=== PATIENT | male | born 1960 | race African-American/Black ===

== ENCOUNTER 2016-09-06 12:21 | Emergency (ER) | payer BC, OTHER ==
[~2016-09-06] VITALS: Ht 170.2 cm; Wt 102.2 kg
[~2016-09-06 12:21] MED LIST: KETO2SHA TOP; LTRSCR45 EXT; ONDA4TAB10 SL; PRT40 PO; RXC5 PO; SNK PO; TPRSR25 PO
[2016-09-06 12:25] VITALS: TEMP 36.9; Ht 170.2 cm; Wt 102.2 kg
[2016-09-06] MEDS ORDERED: SODIUM CHLORIDE 0.9% 1000ML 1,000 ML IV STA (14:23)
[2016-09-06] MEDS ORDERED: HYDROmorphone INJ 1 MG/ML SYR IV STA ×2 (14:26→16:56)
[2016-09-06] MEDS ORDERED: ONDANSETRON INJ 2 MG/ML 2 ML VIAL IV STA (14:26)
[2016-09-06 15:00] LABS: BASO % 0.1 %; BASO ABS # 0.01 K/uL (0-0.2); COMPLETE YES; EOS % 2.9 %; HEMATOCRIT 43.8 % (42-52); IG% 0.3 %; LYMPH % 19.3 %; LYMPH ABS # 1.47 K/uL (1.2-3.4); MEAN CELL VOLUME 81.1 fL (80-100); MEAN CORPUSCULAR HEMOGLOBIN 28.3 pg (25-34); MEAN CORPUSCULAR HGB CONC 34.9 g/dl (32-36); MEAN PLATELET VOLUME 8.8 fL (7.4-10.4); MONO % 14.9 %; NEUT % 62.5 %; PLATELET COUNT 270 K/uL (130-400)
[2016-09-06 15:06] LABS: URINE APPEARANCE CLOUDY (CLEAR); URINE COLOR ORANGE; URINE EPITHELIAL CELL AUTO >30 /lpf (0-5); URINE NITRITE NEG (NEG); UROBILINOGEN NEG (NEG); ZZUR CULT IF INDIC CLEAN CATCH NO
[2016-09-06 15:07] LABS: MANUAL MICROSCOPIC REQUIRED? NO; REVIEW REQ? YES
[2016-09-06 15:09] LABS: URINE BILIRUBIN NEG (NEG)
[2016-09-06 15:23] LABS: URINE PATH CASTS 0-3 GRANULAR CASTS /lpf (0)
[2016-09-06 15:24] LABS: URINE MUCUS PRESENT (NONE PRSENT)
[2016-09-06 15:25] LABS: BUN/CREATININE RATIO 10.9 (10-20); CALCIUM 9.6 mg/dl (8.5-10.1); POTASSIUM 3.9 mmol/L (3.5-5.1)
[2016-09-06 15:27] LABS: ALB/GLOB RATIO 0.8 (0.9-2)
--- NOTE | 2016-09-06 16:16 | EMERGENCY ROOM VISIT NOTE ---
History First contact with patient: 14:15 Chief Complaint: ABDOMINAL PAIN Stated Complaint: EXTREME STOMACH PAINS Nursing Triage Summary: Triage Note: Pt reports mid abd pain x 2 days. pt reports "last time i was here the pain feels the same way now they said my pancreas was inflammed and i got admitted and stayed for a week." History of Present Illness The patient is a 56 year old male who presents to the Emergency Room with complaints of mid abdominal pain for the past 2-3 days. The patient reports that he has had gradually worsening pain in the middle of his abdomen for the past few days. He reports he has had a decreased appetite and nausea, but no vomiting. The patient was seen here for similar symptoms several months ago and states that he was diagnosed with pancreatitis. The patient does admit to drinking vodka and beer a few days ago, prior to the onset of symptoms. He denies any history of abdominal surgery. He rates his discomfort a 10/10. The patient denies any changes in bowel movements, urinary symptoms, chest pain, shortness of breath, hematochezia or melena. He denies any fevers or chills. He has not been taking any medication for the pain. He denies any aggravating or alleviating factors. Review of Systems A complete 10-point Review of Systems was discussed with the patient, with pertinent positives and negatives listed in the History of Present Illness. All remaining Review of Systems questions can be considered negative unless otherwise specified. Past Medical/Surgical History Medical Problems: (1) Complete below knee amputation of right lower extremity Family History Patient reports no known family medical history. Social History Smoking Status: Current Every Day Smoker Alcohol Use: heavy Housing Status: lives with family Occupation Status: unemployed Current/Historical Medications Scheduled Betamethasone/Clotrimazole (Clotrimazole/Betameth Crm 45 Gm), 1 APPLN EXT BID Ketoconazole (Topical) (Ketoconazole), 1 APPLN TOP 2XWK Metoprolol Succinate (Metoprolol Succinate ER), 25 MG PO QAM Ondasetron Odt (Zofran Odt), 4 MG SL Q6H Oxycodone HCl (Oxycodone HCl), 5 MG PO Q4 Pantoprazole (Pantoprazole Sodium), 40 MG PO QAM Senna (Senna Lax), 17.2 MG PO HS Scheduled PRN Oxycodone Ir (Roxicodone Ir), 1-2 TAB PO Q4H PRN for Pain Allergies Coded Allergies: No Known Allergies (Unverified , 03/21/16) Physical Exam Vital Signs Date Time Temp Pulse Resp B/P Pulse Ox O2 Delivery O2 Flow Rate FiO2 09/06/16 19:05 83 18 171/114 95 09/06/16 17:00 83 18 164/121 98 09/06/16 14:45 95 18 148/96 95 Room Air 09/06/16 14:26 80 18 168/119 94 09/06/16 12:25 36.9 99 20 169/125 96 Room Air Pain Rating (0-10): 9.0 Physical Exam VITALS: Vitals are noted on the nurse's note and reviewed by myself. Vital signs stable. GENERAL: This is a 56-year-old male, in no acute distress, nondiaphoretic, well- developed well-nourished. SKIN: Capillary reflex less than 2 seconds. HEENT: Normocephalic. PERRLA. EOMI. Nares patent. Mucous membranes moist. Neck is supple without nuchal rigidity. HEART: Regular rate and rhythm without murmurs gallops or rubs. LUNGS: Clear to auscultation bilaterally without wheezes, rales or rhonchi. ABDOMEN: Positive bowel sounds x 4. The abdomen is soft and nondistended. There is tenderness to palpation of the epigastric region and right upper quadrant. No guarding or rebound tenderness. NEURO: Patient was alert and oriented to person place and time. Medical Decision & Procedures ER Provider Diagnostic Interpretation: PANCREATIC ULTRASOUND CLINICAL HISTORY: Right upper quadrant abdominal pain. History of pancreatitis. COMPARISON STUDY: March 21, 2016 FINDINGS: No gallstones are visualized. There is mild gallbladder distention. The common bile duct is dilated measuring 9 mm. There are no focal hepatic masses. There is borderline increase in hepatic echogenicity. There is no right-sided hydronephrosis. Evaluation the pancreas was somewhat limited. No pancreatic masses were identified. There are no peripancreatic fluid collections. IMPRESSION: 1. Limited evaluation of the pancreas, but no masses or peripancreatic fluid collections identified 2. Mild gallbladder distention. No stones identified 3. 9 mm common bile duct 4. Possible hepatic steatosis Laboratory Results 09/06/16 14:45 Red Blood Count 5.40, Mean Corpuscular Volume 81.1, Mean Corpuscular Hemoglobin 28.3, Mean Corpuscular Hemoglobin Concent 34.9, Mean Platelet Volume 8.8, Neutrophils (%) (Auto) 62.5, Lymphocytes (%) (Auto) 19.3, Monocytes (%) (Auto) 14.9, Eosinophils (%) (Auto) 2.9, Basophils (%) (Auto) 0.1, Neutrophils # (Auto ) 4.75, Lymphocytes # (Auto) 1.47, Monocytes # (Auto) 1.13, Eosinophils # (Auto ) 0.22, Basophils # (Auto) 0.01 09/06/16 14:45 Test 09/06/16 14:40 09/06/16 14:45 Urine Color ORANGE Urine Appearance CLOUDY (CLEAR) Urine pH 6.0 (4.5-7.5) Urine Specific [place] 1.030 (1.000-1.030) Urine Protein 2+ (NEG) Urine Glucose (UA) NEG (NEG) Urine Ketones TRACE (NEG) Urine Occult Blood TRACE (NEG) Urine Nitrite NEG (NEG) Urine Bilirubin NEG (NEG) Urine Urobilinogen NEG (NEG) Urine Leukocyte Esterase NEG (NEG) Urine WBC (Auto) 1-5 /hpf (0-5) Urine RBC (Auto) 5-10 /hpf (0-4) Urine Hyaline Casts (Auto) >30 /lpf (0-5) Urine Epithelial Cells (Auto) >30 /lpf (0-5) Urine Bacteria (Auto) NEG (NEG) Urine Renal Epithelial Cells 0-5 /lpf (0-5) Urine Pathogenic Casts 0-3 GRANULAR CASTS /lpf (0) Urine Mucus PRESENT (NONE PRSENT) White Blood Count 7.60 K/uL (4.8-10.8) Red Blood Count 5.40 M/uL (4.7-6.1) Hemoglobin 15.3 g/dL (14.0-18.0) Hematocrit 43.8 % (42-52) Mean Corpuscular Volume 81.1 fL (80-100) Mean Corpuscular Hemoglobin 28.3 pg (25-34) Mean Corpuscular Hemoglobin Concent 34.9 g/dl (32-36) Platelet Count 270 K/uL (130-400) Mean Platelet Volume 8.8 fL (7.4-10.4) Neutrophils (%) (Auto) 62.5 % Lymphocytes (%) (Auto) 19.3 % Monocytes (%) (Auto) 14.9 % Eosinophils (%) (Auto) 2.9 % Basophils (%) (Auto) 0.1 % Neutrophils # (Auto) 4.75 K/uL (1.4-6.5) Lymphocytes # (Auto) 1.47 K/uL (1.2-3.4) Monocytes # (Auto) 1.13 K/uL (0.11-0.59) Eosinophils # (Auto) 0.22 K/uL (0-0.5) Basophils # (Auto) 0.01 K/uL (0-0.2) RDW Standard Deviation 43.8 fL (36.4-46.3) RDW Coefficient of Variation 14.9 % (11.5-14.5) Immature Granulocyte % (Auto) 0.3 % Immature Granulocyte # (Auto) 0.02 K/uL (0.00-0.02) Anion Gap 12.0 mmol/L (3-11) Est Creatinine Clear Calc Drug Dose 96.2 ml/min Estimated GFR () 98.5 Estimated GFR (Non- 84.9 BUN/Creatinine Ratio 10.9 (10-20) Calcium Level 9.6 mg/dl (8.5-10.1) Total Bilirubin 1.3 mg/dl (0.2-1) Aspartate Amino Transf (AST/SGOT) 21 U/L (15-37) Alanine Aminotransferase (ALT/SGPT) 28 U/L (12-78) Alkaline Phosphatase 123 U/L (45-117) Total Protein 9.3 gm/dl (6.4-8.2) Albumin 4.2 gm/dl (3.4-5.0) Globulin 5.1 gm/dl (2.5-4.0) Albumin/Globulin Ratio 0.8 (0.9-2) Amylase Level 161 U/L (25-115) Lipase 1295 U/L (73-393) Medications Administered Medications (Trade) Dose Ordered Sig/Angela Route Start Time Stop Time Status Last Admin Dose Admin Sodium Chloride (Nss 1000ml) 1,000 ml @ 999 mls/hr Q1H1M STAT IV 09/06/16 14:23 09/06/16 15:23 DC 3/20/17 14:45 999 MLS/HR Hydromorphone HCl (Dilaudid Inj) 1 mg NOW STAT IV 09/06/16 14:26 09/06/16 14:28 DC 09/06/16 14:45 1 MG Ondansetron HCl (Zofran Inj) 4 mg NOW STAT IV 09/06/16 14:26 09/06/16 14:28 DC 09/06/16 14:45 4 MG Hydromorphone HCl (Dilaudid Inj) 1 mg NOW STAT IV 09/06/16 16:56 09/06/16 16:58 DC 09/06/16 17:03 1 MG Medical Decision Differential diagnosis includes pancreatitis, cholecystitis, gastroenteritis, colitis, among others. The patient was evaluated as above. Labs were drawn and IV access was obtained. Imaging studies were performed and read by radiology as above. The patient was medicated with 1 L normal saline solution, 1 mg Dilaudid IV and 4 mg Zofran IV. He did require an additional 1 mg Dilaudid IV for pain. The patient was reassessed multiple times during their stay in the emergency department and remained in stable condition. The patient is a 56-year-old male who presents today complaining of abdominal pain. He does report a history of pancreatitis and states his symptoms today are similar to previous episodes. Labs revealed no leukocytosis, anemia or concerning electrolyte abnormalities. Urinalysis was not suggestive of infection. Lipase was found to be elevated at 1295. On the patient's previous admission, his lipase had been significantly more elevated. There is no leukocytosis or fevers to suggest infection. Right upper quadrant ultrasound was fairly unremarkable. There was mild distention of the gallbladder as well as a dilated common bile duct. However, these findings were present on his last visit and he had extensive workup of the gallbladder with no stones found. He does admit to drinking prior to the onset of his pain and I feel that this is likely alcohol-induced pancreatitis. The patient did feel better after IV antiemetics and pain medication and felt stable for discharge home. He was given a prescription for pain and nausea medicine and instructed to follow-up with his primary care provider or return here as needed. Based on the patient's presentation, lab results, and imaging studies, I feel the patient is stable for outpatient treatment. The patient's case was reviewed with Dr. Garcia, ED attending physician, who agreed with my assessment and treatment plan. Discharge instructions were reviewed with the patient. The patient verbalized understanding of my assessment and treatment plan and was discharged home in good condition. Impression Primary Impression: Pancreatitis Departure Information Dispostion Home / Self-Care Condition GOOD Prescriptions Oxycodone Ir (Roxicodone Ir) 5 Mg Tab 1-2 TAB PO Q4H Y for Pain, #20 TAB For Initial Treatment Prov: Brittany Tolentino, WALE 09/06/16 Referrals No Doctor, Assigned (PCP) Patient Instructions My [facility] Additional Instructions You have been treated in the Emergency Department for pancreatitis. You have been prescribed OxyIR to be used for pain control. This is a narcotic medication. You cannot drive or consume alcohol while on this medicine. This medicine should only be used for pain that cannot be controlled with over-the- counter pain medicines. For pain control, you can use the following [id number] medicines (if >12 yo): - Regular strength (325mg/tab) Tylenol (acetaminophen) 2 tabs every 4-6 hours as needed. Do not exceed 12 tablets in a 24 hour period. Avoid taking more than 4 grams (4000 mg) of Tylenol per day. This includes any other sources of acetaminophen you may take on a regular basis. - Regular strength (200 mg/tab) Advil (ibuprofen) 1-2 tabs every 4-6 hours as needed. Do not exceed a dose of 3200 mg per day. Drink plenty of water and stay well hydrated. As with any trip to the Emergency Department, you should follow-up with your Primary Care Provider from today's visit. Return to the emergency department if your symptoms persist despite treatment plan outlined above or if the following symptoms occur: Worsening pain, fevers, vomiting or any other new/concerning symptoms. Problem Qualifiers Primary Impression: Pancreatitis Chronicity: acute Pancreatitis type: alcohol induced Acute pancreatitis complication: no infection or necrosis Qualified Codes: K85.20 - Alcohol induced acute pancreatitis without necrosis or infection
--- NOTE | 2016-09-06 16:47 | DIAGNOSTIC IMAGING REPORT ---
PANCREATIC ULTRASOUND CLINICAL HISTORY: Right upper quadrant abdominal pain. History of pancreatitis. COMPARISON STUDY: March 21, 2016 FINDINGS: No gallstones are visualized. There is mild gallbladder distention. The common bile duct is dilated measuring 9 mm. There are no focal hepatic masses. There is borderline increase in hepatic echogenicity. There is no right-sided hydronephrosis. Evaluation the pancreas was somewhat limited. No pancreatic masses were identified. There are no peripancreatic fluid collections. IMPRESSION: 1. Limited evaluation of the pancreas, but no masses or peripancreatic fluid collections identified 2. Mild gallbladder distention. No stones identified 3. 9 mm common bile duct 4. Possible hepatic steatosis Electronically signed by: Erick Love M.D. 09/06/2016 4:46 PM Dictated Date/Time: 09/06/2016 4:44 PM
[2016-09-06] MEDS ORDERED: OXYC1TAB3 PO ×2 (17:56→19:58)
[2016-09-06 19:05] VITALS: BP 171/114; PULSE 83; O2SAT 95
== END 2016-09-06 19:07 | disposition home or self-care (01) ==
LOC: C.EDB 12:22 → C.EDC 19:07
DX: K85.90 Acute pancreatitis without necrosis or infection, unspecified (principal); F17.200 Nicotine dependence, unspecified, uncomplicated; Z79.899 Other long term (current) drug therapy

== ENCOUNTER 2016-12-20 07:50 | Emergency (ER) | payer SELFPAY ==
[~2016-12-20] VITALS: Ht 170.2 cm; Wt 110.6 kg
[~2016-12-20 07:50] MED LIST changes: -ONDA4TAB10 SL; +OXYC1TAB3 PO
[2016-12-20 07:55] VITALS: TEMP 36.7; Ht 170.2 cm; Wt 110.6 kg
[2016-12-20 08:01] VITALS: O2SAT 95
[2016-12-20] MEDS ORDERED: MULTI-VITAMIN INFUSION INJ 10 ML, THIAMINE HCL INJ 100 MG, FoLIC ACID INJ 1 MG in SODIU... IV ONE (08:15)
--- NOTE | 2016-12-20 08:35 | DIAGNOSTIC IMAGING REPORT ---
CHEST ONE VIEW PORTABLE CLINICAL HISTORY: Atypical chest pain COMPARISON STUDY: No previous studies for comparison. FINDINGS: The heart is mildly enlarged. There is no overt failure. There is no focal pulmonary consolidation. There are no pleural effusions.[ IMPRESSION: Cardiomegaly. No acute findings. Electronically signed by: Erick Love M.D. 12/20/2016 8:33 AM Dictated Date/Time: 12/20/2016 8:33 AM
--- NOTE | 2016-12-20 08:54 | DIAGNOSTIC IMAGING REPORT ---
HEAD CT NONCONTRAST CT DOSE: 614.27 mGy.cm HISTORY: Mental status change possible seizure TECHNIQUE: Multiaxial CT images of the head were performed without the use of intravenous contrast. Comparison: None. Findings: The paranasal sinuses and mastoid air cells are clear. Several small foci of diminished density in the periventricular deep white matter regions. This is suggestive of chronic small vessel change. The ventricular system is midline. No evidence for midline shift. Basilar cisterns are unremarkable. Impression: Chronic small vessel change. No acute process. Electronically signed by: Terence Prieto M.D. 12/20/2016 8:52 AM Dictated Date/Time: 12/20/2016 8:50 AM
[2016-12-20 09:05] LABS: BUN/CREATININE RATIO 10.3 (10-20); CALCIUM 8.9 mg/dl (8.5-10.1); CREATININE 0.99 mg/dl (0.60-1.40); MAGNESIUM 2.2 mg/dl (1.8-2.4); POTASSIUM 4.1 mmol/L (3.5-5.1)
[2016-12-20 09:23] LABS: BASO % 0.4 %; BASO ABS # 0.03 K/uL (0-0.2); COMPLETE YES; EOS % 1.8 %; HEMATOCRIT 40.7 % (42-52); IG% 0.1 %; LYMPH % 40.2 %; LYMPH ABS # 3.13 K/uL (1.2-3.4); MEAN CELL VOLUME 82.2 fL (80-100); MEAN CORPUSCULAR HEMOGLOBIN 27.7 pg (25-34); MEAN CORPUSCULAR HGB CONC 33.7 g/dl (32-36); MEAN PLATELET VOLUME 9.5 fL (7.4-10.4); MONO % 8.9 %; NEUT % 48.6 %; PLATELET COUNT 281 K/uL (130-400); RED BLOOD COUNT 4.95 M/uL (4.7-6.1); WHITE BLOOD COUNT 7.79 K/uL (4.8-10.8)
[2016-12-20 09:29] LABS: BENZODIAZEPINE, URINE NEG (NEG); COCAINE,URINE POS (NEG); PHENCYCLIDINE, URINE NEG (NEG)
[2016-12-20 10:43] VITALS: BP 157/104; O2SAT 90
[2016-12-20 11:02] VITALS: PULSE 80
--- NOTE | 2016-12-20 11:34 | EMERGENCY ROOM VISIT NOTE ---
History Report prepared by Van: Elmo Forrest Under the Supervision of: Dr. Juan Mccarty M.D. First contact with patient: 07:57 Chief Complaint: SEIZURE Stated Complaint: SEIZURE History of Present Illness The patient is a 56 year old male who presents to the Emergency Room with complaints of an episode of seizure-like activity occurring just prior to arrival. He has no history of seizures. He did not feel abnormal prior to the episode. The patient states that he may have hit his head during the episode and currently has a headache. He also complains of leg swelling and recent cold- sweats. He denies any fevers, chest pain, SOB, nausea, or vomiting. The patient states that he has not slept in two days. He states that he has been drinking a lot of alcohol including emily and wine. He states that he normally drinks a lot, and typically drinks every day. The patient has no history of alcohol withdrawal, and does not believe he would go into withdrawal if he stopped drinking now. He has a history of a right leg amputation. He notes that he recently got out of residential. Source of History: patient Onset: Just prior to arrival Quality: other (seizure-like activity) Timing: other (episode) Associated Symptoms: + headache, No chest pain, No SOB, No nausea, No vomiting Note: The patient also complains of leg swelling. Review of Systems See HPI for pertinent positives & negatives. A total of 10 systems reviewed and were otherwise negative. Past Medical & Surgical Medical Problems: (1) Complete below knee amputation of right lower extremity Old medical records were reviewed. Nurse's notes were reviewed and I agree with. History of alcohol abuse No history of seizures Family History Patient reports no known family medical history. Social History Smoking Status: Never Smoker Alcohol Use: heavy Housing Status: lives with family Occupation Status: unemployed Current/Historical Medications Scheduled Betamethasone/Clotrimazole (Clotrimazole/Betameth Crm 45 Gm), 1 APPLN EXT BID Ketoconazole (Topical) (Ketoconazole), 1 APPLN TOP 2XWK Metoprolol Succinate (Metoprolol Succinate ER), 25 MG PO QAM Pantoprazole (Pantoprazole Sodium), 40 MG PO QAM Senna (Senna Lax), 17.2 MG PO HS Scheduled PRN Oxycodone Ir (Roxicodone Ir), 1-2 TAB PO Q4H PRN for Pain Allergies Coded Allergies: No Known Allergies (Unverified , 12/20/16) Physical Exam Vital Signs Date Time Temp Pulse Resp B/P (MAP) Pulse Ox O2 Delivery O2 Flow Rate FiO2 12/20/16 11:02 80 12/20/16 10:43 90 16 157/104 90 12/20/16 08:57 101 16 138/102 92 Room Air 12/20/16 08:01 95 Room Air 12/20/16 07:58 104 12/20/16 07:55 36.7 99 20 148/106 94 Room Air Physical Exam General: Mild to moderately intoxicated, middle aged male. Smells of alcohol but answers questions appropriately. Alert and oriented 3 with a Juan Luis Coma Score 15. HEENT: Normal cephalic atraumatic. Pupils are equal round and reactive to light. Extraocular movements are intact. Oropharynx is pink with moist mucous membranes. No swelling of the mouth lips or tongue. Poor dentition. No evidence of abscess or Jacobo's angina. The posterior oropharynx is wide open without swelling Neck: Supple with a midline trachea. No meningeal signs or stiffness, no JVD or bruits. No Stridor. Chest: Clear to auscultation bilaterally. No wheezes or rhonchi. No increased work of breathing. Heart: regular rate and rhythm. Abdomen: Soft nontender, nondistended without rebound guarding or rigidity. Extremities: No cyanosis clubbing or edema. RLE BKA. Spine/Back. Non tender to palpation. No CVA tenderness Skin: Good turgor without rashes. Neurologic exam: Awake, alert and oriented x3. Moves all extremities equally. Medical Decision & Procedures ER Provider Diagnostic Interpretation: Radiology results as stated below per my review and radiologist interpretation: HEAD CT NONCONTRAST Findings: The paranasal sinuses and mastoid air cells are clear. Several small foci of diminished density in the periventricular deep white matter regions. This is suggestive of chronic small vessel change. The ventricular system is midline. No evidence for midline shift. Basilar cisterns are unremarkable. Impression: Chronic small vessel change. No acute process. Electronically signed by: Terence Prieto M.D. CHEST ONE VIEW PORTABLE FINDINGS: The heart is mildly enlarged. There is no overt failure. There is no focal pulmonary consolidation. There are no pleural effusions.[ IMPRESSION: Cardiomegaly. No acute findings. Electronically signed by: Erick Love M.D. Laboratory Results 12/20/16 08:30 Red Blood Count 4.95, Mean Corpuscular Volume 82.2, Mean Corpuscular Hemoglobin 27.7, Mean Corpuscular Hemoglobin Concent 33.7, Mean Platelet Volume 9.5, Neutrophils (%) (Auto) 48.6, Lymphocytes (%) (Auto) 40.2, Monocytes (%) (Auto) 8.9, Eosinophils (%) (Auto) 1.8, Basophils (%) (Auto) 0.4, Neutrophils # (Auto) 3.79, Lymphocytes # (Auto) 3.13, Monocytes # (Auto) 0.69, Eosinophils # (Auto) 0.14, Basophils # (Auto) 0.03 12/20/16 08:30 Test 12/20/16 08:30 12/20/16 08:42 12/20/16 09:00 White Blood Count 7.79 K/uL (4.8-10.8) Red Blood Count 4.95 M/uL (4.7-6.1) Hemoglobin 13.7 g/dL (14.0-18.0) Hematocrit 40.7 % (42-52) Mean Corpuscular Volume 82.2 fL (80-100) Mean Corpuscular Hemoglobin 27.7 pg (25-34) Mean Corpuscular Hemoglobin Concent 33.7 g/dl (32-36) Platelet Count 281 K/uL (130-400) Mean Platelet Volume 9.5 fL (7.4-10.4) Neutrophils (%) (Auto) 48.6 % Lymphocytes (%) (Auto) 40.2 % Monocytes (%) (Auto) 8.9 % Eosinophils (%) (Auto) 1.8 % Basophils (%) (Auto) 0.4 % Neutrophils # (Auto) 3.79 K/uL (1.4-6.5) Lymphocytes # (Auto) 3.13 K/uL (1.2-3.4) Monocytes # (Auto) 0.69 K/uL (0.11-0.59) Eosinophils # (Auto) 0.14 K/uL (0-0.5) Basophils # (Auto) 0.03 K/uL (0-0.2) RDW Standard Deviation 41.2 fL (36.4-46.3) RDW Coefficient of Variation 13.7 % (11.5-14.5) Immature Granulocyte % (Auto) 0.1 % Immature Granulocyte # (Auto) 0.01 K/uL (0.00-0.02) Anion Gap 9.0 mmol/L (3-11) Est Creatinine Clear Calc Drug Dose 101.2 ml/min Estimated GFR () 99.7 Estimated GFR (Non- 86.0 BUN/Creatinine Ratio 10.3 (10-20) Calcium Level 8.9 mg/dl (8.5-10.1) Magnesium Level 2.2 mg/dl (1.8-2.4) Total Bilirubin 0.3 mg/dl (0.2-1) Direct Bilirubin 0.1 mg/dl (0-0.2) Aspartate Amino Transf (AST/SGOT) 31 U/L (15-37) Alanine Aminotransferase (ALT/SGPT) 46 U/L (12-78) Alkaline Phosphatase 110 U/L (45-117) Total Protein 8.6 gm/dl (6.4-8.2) Albumin 4.1 gm/dl (3.4-5.0) Lipase 108 U/L (73-393) Ethyl Alcohol mg/dL 282.0 mg/dl (0-3) Bedside Troponin I < 0.030 ng/ml (0-0.045) Urine Opiates Screen NEG (NEG) Urine Methadone, Qualitative NEG (NEG) Urine Barbiturates NEG (NEG) Urine Phencyclidine (PCP) Level NEG (NEG) Ur Amphetamine/Methamphetamine NEG (NEG) MDMA (Ecstasy) Screen NEG (NEG) Urine Benzodiazepines Screen NEG (NEG) Urine Cocaine Metabolite POS (NEG) Urine Marijuana (THC) NEG (NEG) Laboratory studies as stated above per my review. Medications Administered Medications (Trade) Dose Ordered Sig/Angela Route Start Time Stop Time Status Last Admin Dose Admin Multivitamins 10 ml/Thiamine HCl 100 mg/Folic Acid 1 mg/Sodium Chloride 1,011.2 ml @ 200 mls/ hr Q5H4M ONCE IV 12/20/16 08:15 12/20/16 12:03 DC 12/20/16 08:37 200 MLS/HR ECG Indication: other (seizure-like activity) Rate (beats per minute): 100 Rhythm: normal sinus Findings: no acute ischemic change, no ectopy Comparison ECG Date: no prior available ED Course 0759: Past medical records reviewed. The patient was evaluated in room B12B, and a complete history and physical examination were performed. 0815: Ordered Multivitamins 10 mL/Thiamine HCl 100 mg/Folic Acid 1 mg/Sodium Chloride 1011.2 ml @ 200 mls/hr IV 1002: I reassessed the patient. He is resting and feels better. 1120: Upon reevaluation, the patient is resting comfortably. I discussed the results and treatment plan with him. He verbalized agreement of the treatment plan. The patient was discharged home. Medical Decision Differentials include, but are not limited to; seizure, trauma, alcohol use/ withdrawal, arrhythmia, and electrolyte or metabolic abnormality. This patient comes in as described above. He was placed in room B12. He is brought in after having possible seizure-like activity while sleeping. He looks well now and has a normal neurologic exam. He is not postictal .he does smell of alcohol and admits to drinking he denies any trauma. Seizure precautions were applied .IV access was established. She was given a banana bag here to replete any nutrients that he may be deficient in secondary to drinking. CAT scan, EKG and multiple blood tests was obtained. CAT scan of his head is unremarkable. Chest x-ray shows no acute findings. EKG does not suggest acute coronary syndrome or arrhythmia. He has no acute electrolyte or metabolic abnormalities. He was observed in the ER and is resting comfortably and is asking to go home. He will be discharged home. I think his alcohol probably caused his seizure if he had a seizure. It is possible that this was not a seizure as well. At this point, I told him to stop drinking. He does not drive and does not have a license he tells me. He Should avoid any activity where he had a seizure he could hurt himself or others . At this point given the fact that this was most likely cause from alcohol or substances. I do not think that's anticonvulsants are needed but he should stop drinking and using any drugs. He was encouraged to return if he has recurrence of symptoms, chest pain, shortness of breath, fever chills, any new problems concerns. He was happy with the plan and discharged home in a cab. Impression Primary Impression: Seizure Additional Impression: Alcohol intoxication Scribe Attestation The scribe's documentation has been prepared under my direction and personally reviewed by me in its entirety. I confirm that the note above accurately reflects all work, treatment, procedures, and medical decision making performed by me. Departure Information Dispostion Home / Self-Care Referrals No Doctor, Assigned (PCP) Forms HOME CARE DOCUMENTATION FORM, IMPORTANT VISIT INFORMATION Patient Instructions My [facility], Seizures - [facility] Additional Instructions Rest. Minimize your alcohol use. Return if: Fever or chills, worsening symptoms, any further seizures, chest pain , any chest any problems or concerns. Do not drive or swim or do any activities where you could get hurt if you had a seizure Follow-up with your doctor this week for recheck Problem Qualifiers
[2016-12-23 07:41] LABS: COCAINE, URINE 3820 NG/ML (CUTOFF=100)
== END 2016-12-20 11:53 | disposition home or self-care (01) ==
LOC: EDBD 07:50 → C.EDB 07:51
DX: R56.9 Unspecified convulsions (principal); F10.129 Alcohol abuse with intoxication, unspecified

== ENCOUNTER 2018-06-12 15:47 | Inpatient (IN) ==
[2018-06-12] MEDS ORDERED: fentaNYL citrate 100 MCG/2 ML VIAL IV PRN (15:54)
[2018-06-12] MEDS ORDERED: ONDANSETRON INJ 2 MG/ML 2 ML VIAL IV STA (15:54)
[2018-06-12] MEDS ORDERED: SODIUM CHLORIDE 0.9% 1000ML 1,000 ML IV SCH ×2 (16:00→18:56)
--- NOTE | 2018-06-12 16:12 | XRay Report ---
XR chest 1V portable CLINICAL HISTORY: Vomiting. COMPARISON STUDY: Chest radiograph December 11, [address] December 08, 2017. FINDINGS: There is no pneumothorax or pleural effusion. There is no evidence for pulmonary edema or p neumonia. Linear right midlung opacity favors atelectasis or scarring. Note is made of mild cardiomeg trish without evidence for pulmonary edema. IMPRESSION: No acute cardiopulmonary findings. Electronically signed by: Ryne Diane M.D. 06/12/2018 4:11 PM
--- NOTE | 2018-06-12 16:13 | XRay Report ---
KUB CLINICAL HISTORY: Vomiting. COMPARISON STUDY: KUB December 13, 2017. FINDINGS: The bowel gas pattern is normal. Moderate bilateral hip osteoarthritis, greater on the left , is incidentally noted. There is no evidence for free air although sensitivity is diminished on this supine exam. IMPRESSION: No evidence for a bowel obstruction. Electronically signed by: Ryne Diane M.D. 06/12/2018 4:12 PM
--- NOTE | 2018-06-12 16:30 | Emergency Department Note ---
Entered by Sherry Rico acting as a scribe for Kevin Phillips DO History of Present Illness General Chief complaint: Nausea Stated complaint: NAUSEA, VOMITING, ETOH, Source: patient Mode of arrival: EMS Limitations: no limitations History of Present Illness Provider complaint: pancreas pain Onset (ago): day(s) 1 Location: abdomen Quality: + burning Associated symptoms: + denies other symptoms (leg swelling), + diaphoresis, + fever/chills and + nausea/vomiting Treatments prior to arrival: none The patient is a 57 year old male who presents to the Emergency Room with complaints of pain in his pancreas that began yesterday. The patient describes his pain as burning. The patient states that he has nausea, vomiting, fevers, chills, and diaphoresis. The patient denies any leg swelling. The patient denies taking any medications prior to arrival. The patient states that he was last hospitalized last year for pancreas issues. The patient states that he has an appointment with Dr. Cee on June 14 for his pancreas issues. The patient denies a history of any previous stomach surgeries. 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 GERD (gastroesophageal reflux disease) Hx of hematuria Hx of pancreatitis Obesity Surgical History Hx of right BKA (Chronic) 2013 s/p fracture of tibia/fibula with associated infection Complete below knee amputation of right lower extremity History of mandibular surgery [facility] 1978 History of tooth extraction ALL TEETH REMOVED Family History Sister Family history of diabetes mellitus Brother Pancreatic carcinoma Social History marital status: Single Current Living Situation: Family Current Living Situation Comment: LIVES WITH SISTER Other Information That Helps Us Care for You: No Feels Safe at Home: Yes Safety Concerns: Feels Safe At This Time Smoking Status: Current some day smoker Tobacco Type: cigarettes Do You Dip or Chew Tobacco: No Second Hand Exposure: Yes Tobacco Cessation Education Requested by Patient: No Hx Alcohol Use: Yes Alcohol type: beer and hard liquor Alcohol Intake Frequency : 3 or more drinks per day Alcohol Intake Frequency Comment: 12 pack of beer daily along with 1/5 of vodka Hx Substance Use: Yes substance use type: marijuana Last Used Substance: Days ( ago) Last Used Substance Other:: yesterday Beliefs That Will Affect Care: None Communication Ability: Effective Review of Systems See HPI for pertinent positives & negatives. and A total of 10 systems reviewed and were otherwise negative Physical Exam Vital Signs Vital Signs - 24 hr 06/12/18 16:51 06/12/18 19:24 06/12/18 19:45 Temperature 36.7 C Temperature Source Oral Sepsis Recent Fever Within 48 Hours No Sepsis New/Unexplained Change in Mental Status No Sepsis Action Taken by Nursing No Action Required Pulse Rate 71 Pulse Rate [Finger] 76 79 Pulse Rate [Left Finger] Pulse Rate [Right Brachial] Pulse Rhythm Regular Pulse Rhythm [Right Brachial] Pulse Strength [Right Brachial] Respiratory Rate 18 20 18 Respiratory Effort / Characteristics Respiratory Depth Normal Respiratory Pattern Blood Pressure 162/112 H Blood Pressure [Left Arm] Blood Pressure [Right Arm] 180/117 H 174/109 H Blood Pressure Mean 128 Blood Pressure Mean [Left Arm] Blood Pressure Mean [Right Arm] 138 130 Blood Pressure Position [Left Arm] Blood Pressure Position [Right Arm] Pulse Oximetry 99 99 99 Oxygen Delivery Method Room Air Room Air Room Air 06/12/18 20:18 06/12/18 22:20 06/12/18 22:57 Temperature 36.3 C L 36.5 C Temperature Source Oral Oral Sepsis Recent Fever Within 48 Hours Sepsis New/Unexplained Change in Mental Status Sepsis Action Taken by Nursing Pulse Rate Pulse Rate [Finger] 79 Pulse Rate [Left Finger] 74 Pulse Rate [Right Brachial] 64 Pulse Rhythm Pulse Rhythm [Right Brachial] Regular Pulse Strength [Right Brachial] Normal Respiratory Rate 26 H 16 Respiratory Effort / Characteristics Respiratory Depth Respiratory Pattern Blood Pressure Blood Pressure [Left Arm] 209/125 H Blood Pressure [Right Arm] 190/99 H 205/100 H 199/109 H Blood Pressure Mean Blood Pressure Mean [Left Arm] 153 Blood Pressure Mean [Right Arm] 129 135 139 Blood Pressure Position [Left Arm] Lying Blood Pressure Position [Right Arm] Sitting Lying Lying Pulse Oximetry 98 96 Oxygen Delivery Method Room Air Room Air 06/13/18 00:11 06/13/18 02:16 06/13/18 04:00 Temperature 36.6 C 36.9 C Temperature Source Oral Oral Sepsis Recent Fever Within 48 Hours Sepsis New/Unexplained Change in Mental Status Sepsis Action Taken by Nursing Pulse Rate Pulse Rate [Finger] Pulse Rate [Left Finger] 73 Pulse Rate [Right Brachial] 74 Pulse Rhythm Pulse Rhythm [Right Brachial] Regular Pulse Strength [Right Brachial] Normal Respiratory Rate 18 18 Respiratory Effort / Characteristics Non-Labored Spontaneous Respiratory Depth Normal Respiratory Pattern Regular Blood Pressure Blood Pressure [Left Arm] Blood Pressure [Right Arm] 188/110 H 187/115 H 191/114 H Blood Pressure Mean Blood Pressure Mean [Left Arm] Blood Pressure Mean [Right Arm] 136 139 139 Blood Pressure Position [Left Arm] Blood Pressure Position [Right Arm] Lying Lying Pulse Oximetry 96 96 Oxygen Delivery Method Room Air Room Air 06/13/18 04:33 06/13/18 06:50 06/13/18 12:24 Temperature 36.8 C 36.6 C Temperature Source Oral Oral Sepsis Recent Fever Within 48 Hours Sepsis New/Unexplained Change in Mental Status Sepsis Action Taken by Nursing Pulse Rate Pulse Rate [Finger] Pulse Rate [Left Finger] 78 80 Pulse Rate [Right Brachial] 73 Pulse Rhythm Pulse Rhythm [Right Brachial] Regular Pulse Strength [Right Brachial] Normal Respiratory Rate 16 18 Respiratory Effort / Characteristics Respiratory Depth Respiratory Pattern Blood Pressure Blood Pressure [Left Arm] 203/116 H 197/114 H 195/108 H Blood Pressure [Right Arm] 204/116 H Blood Pressure Mean Blood Pressure Mean [Left Arm] 145 141 137 Blood Pressure Mean [Right Arm] 145 Blood Pressure Position [Left Arm] Lying Lying Lying Blood Pressure Position [Right Arm] Lying Pulse Oximetry 94 95 Oxygen Delivery Method Room Air Room Air 06/13/18 15:07 Temperature 36.5 C Temperature Source Oral Sepsis Recent Fever Within 48 Hours Sepsis New/Unexplained Change in Mental Status Sepsis Action Taken by Nursing Pulse Rate Pulse Rate [Finger] Pulse Rate [Left Finger] 80 Pulse Rate [Right Brachial] Pulse Rhythm Pulse Rhythm [Right Brachial] Pulse Strength [Right Brachial] Respiratory Rate 16 Respiratory Effort / Characteristics Respiratory Depth Respiratory Pattern Blood Pressure Blood Pressure [Left Arm] Blood Pressure [Right Arm] 197/101 H Blood Pressure Mean Blood Pressure Mean [Left Arm] Blood Pressure Mean [Right Arm] 133 Blood Pressure Position [Left Arm] Blood Pressure Position [Right Arm] Lying Pulse Oximetry 94 Oxygen Delivery Method Room Air GENERAL: Patient is awake alert in no acute distress patient is resting comfortably and showing no signs of anxiety EYES: The conjunctivae are clear. The pupils are round and reactive. EARS, NOSE, MOUTH AND THROAT: The nose is without any evidence of any deformity. Mucous membranes are moist tongue is midline NECK: The neck is nontender and supple. RESPIRATORY: Normal respiratory effort is noted there is no evidence of wheezing rhonchi or rales CARDIOVASCULAR: Regular rate and rhythm noted there no murmurs rubs or gallops normal S1 normal S2 GASTROINTESTINAL: The abdomen is moderately distended and diffusely tender. There is no guarding or rigidity elicited. MUSCULOSKELETAL/EXTREMITIES: Right lower extremity amputation was noted. SKIN: There is no obvious evidence of any rash. NEUROLOGIC: Patient is awake alert and oriented x3. Course 1553: Past medical records reviewed. The patient was evaluated in room B5, and a complete history and physical examination were performed. 181: I checked on the patient and updated him on his elevated lipase test results and recommended that the patient be hospitalized. 181: I discussed the patient's case with Huong Presley [facility]ist who will further evaluate the patient for hospitalization. Consultations Consultation #1: Huong Packer Time: 18:18 Administered Medications Carvedilol (Coreg) 3.125 mg PO BID [facility] Stop: 07/13/18 04:14 Last Admin: 06/13/18 04:37 Dose: 3.125 mg Chlordiazepoxide HCl (Librium) 25 mg PO BID [facility] Stop: 07/12/18 20:59 Last Admin: 06/13/18 08:41 Dose: 25 mg Admin: 06/12/18 22:19 Dose: 25 mg Clonidine HCl (Catapres) 0.1 mg PO Q8H PRN PRN Reason: SBP>160 Stop: 07/13/18 11:30 Last Admin: 06/13/18 12:29 Dose: 0.1 mg Enoxaparin Sodium (Lovenox) 40 mg SQ Q24H [facility] Stop: 07/13/18 08:59 Last Admin: 06/13/18 08:56 Dose: 40 mg Folic Acid (Folvite) 1 mg PO QAM [facility] Stop: 07/13/18 08:59 Last Admin: 06/13/18 09:45 Dose: 1 mg Hydromorphone HCl (Dilaudid) 1 mg IV Q3H PRN PRN Reason: Pain Stop: 06/27/18 11:28 Last Admin: 06/13/18 15:57 Dose: 1 mg Admin: 06/13/18 12:04 Dose: 1 mg Lactated Ringer's (Lr) 1,000 mls @ 200 mls/hr IV .Q5H [facility] Stop: 07/12/18 19:44 Last Infusion: 06/13/18 14:00 Dose: 200 mls/hr Admin: 06/13/18 13:36 Dose: 200 mls/hr Infusion: 06/13/18 13:36 Dose: 150 mls/hr Admin: 06/13/18 07:32 Dose: 150 mls/hr Infusion: 06/13/18 07:32 Dose: 150 mls/hr Admin: 06/13/18 04:37 Dose: 150 mls/hr Infusion: 06/13/18 04:37 Dose: 200 mls/hr Admin: 06/13/18 01:41 Dose: 200 mls/hr Infusion: 06/13/18 01:41 Dose: 200 mls/hr Admin: 06/12/18 20:41 Dose: 200 mls/hr Ioversol (Optiray 320 125ml) 119 ml IV ONCE PRN PRN Reason: Interaction Checking Stop: 06/16/18 20:07 Last Admin: 06/12/18 20:08 Dose: 119 ml Metoclopramide HCl (Reglan) 5 mg IV TID [facility] Stop: 07/13/18 13:59 Last Admin: 06/13/18 13:43 Dose: 5 mg Ondansetron HCl (Zofran) 4 mg IV Q6H PRN PRN Reason: Nausea Stop: 07/12/18 20:22 Last Admin: 06/13/18 01:36 Dose: 4 mg Oxycodone HCl (Roxicodone Immediate Rel) 5 mg PO Q4H PRN PRN Reason: Pain Stop: 06/26/18 20:47 Last Admin: 06/13/18 07:36 Dose: 5 mg Admin: 06/13/18 00:01 Dose: 5 mg Pantoprazole Sodium (Protonix) 40 mg PO [facility] Stop: 07/13/18 08:59 Last Admin: 06/13/18 09:45 Dose: 40 mg Ranitidine HCl (Zantac) 150 mg PO [facility] Stop: 07/13/18 08:59 Last Admin: 06/13/18 09:46 Dose: 150 mg Thiamine HCl (Vitamin B-1) 100 mg PO [facility] Stop: 07/13/18 08:59 Last Admin: 06/13/18 09:45 Dose: 100 mg Discontinued Medications Bisacodyl (Dulcolax) 5 mg PO NOW ONE Stop: 06/13/18 13:14 Last Admin: 06/13/18 13:43 Dose: 5 mg Carvedilol (Coreg) 3.125 mg PO BID [facility] Stop: 07/12/18 22:29 Last Admin: 06/12/18 22:45 Dose: 3.125 mg Fentanyl Citrate (Fentanyl Citrate) 50 mcg IV Q15M PRN PRN Reason: Pain Stop: 06/26/18 15:53 Last Admin: 06/12/18 16:40 Dose: 50 mcg Gabapentin (Neurontin) 1,200 mg PO TODAY@2200 [facility] Stop: 06/12/18 22:01 Last Admin: 06/12/18 21:49 Dose: 1,200 mg Gabapentin (Neurontin) 600 mg PO Q6H [facility] Stop: 06/13/18 12:01 Last Admin: 06/13/18 12:28 Dose: 600 mg Admin: 06/13/18 05:38 Dose: 600 mg Hydrochlorothiazide (Hctz) 25 mg PO NOW STA Stop: 06/13/18 11:27 Last Admin: 06/13/18 12:26 Dose: 25 mg Sodium Chloride (Nss 1000ml) 1,000 mls @ 999 mls/hr IV .Q1H1M [facility] Stop: 06/12/18 17:00 Last Infusion: 06/12/18 20:41 Dose: 0 mls/hr Admin: 06/12/18 16:40 Dose: 999 mls/hr Sodium Chloride (Nss 1000ml) 1,000 mls @ 200 mls/hr IV .Q5H [facility] Stop: 07/12/18 18:55 Last Admin: 06/12/18 21:38 Dose: Not Given Potassium Chloride (K Lalo / Wtr) 10 meq in 100 mls @ 100 mls/hr IV Q1H [facility] Stop: 06/13/18 13:59 Last Infusion: 06/13/18 15:08 Dose: 0 mls/hr Admin: 06/13/18 13:27 Dose: 100 mls/hr Infusion: 06/13/18 13:25 Dose: 100 mls/hr Admin: 06/13/18 12:25 Dose: 100 mls/hr Lisinopril (Zestril) 10 mg PO QAM [facility] Stop: 07/13/18 04:14 Last Admin: 06/13/18 09:48 Dose: 10 mg Admin: 06/13/18 04:36 Dose: 10 mg Lorazepam (Ativan) 1 mg PO ONE PRN; Protocol PRN Reason: EtoH Withdrawal AWSS 6-10 Last Admin: 06/12/18 22:45 Dose: 1 mg Morphine Sulfate (Morphine Sulfate) 4 mg IV Q4H PRN PRN Reason: Pain Stop: 06/26/18 19:10 Last Admin: 06/12/18 19:29 Dose: 4 mg Morphine Sulfate (Morphine Sulfate) 4 mg IV Q3H PRN PRN Reason: Pain Stop: 06/26/18 19:10 Last Admin: 06/13/18 08:36 Dose: 4 mg Admin: 06/13/18 05:34 Dose: 4 mg Admin: 06/13/18 01:37 Dose: 4 mg Morphine Sulfate (Morphine Sulfate) 4 mg IV NOW STA Stop: 06/12/18 20:50 Last Admin: 06/12/18 21:30 Dose: 4 mg Ondansetron HCl (Zofran) 4 mg IV NOW STA Stop: 06/12/18 15:55 Last Admin: 06/12/18 16:40 Dose: 4 mg Medical Decision Making Differential Diagnosis Differential diagnosis: Etiologies such as appendicitis, diverticulitis, PUD, biliary pathology, UTI, pancreatitis, obstruction, mesenteric ischemia, aortic pathology, infections, inflammatory bowel disease, renal colic, as well as others were entertained. Medical Records Attestation: I reviewed the patient's medical records. Home Medications Current Medication List: was personally reviewed by me Laboratory Data Attestation: I reviewed the patient's lab results. Result diagrams: 06/13/18 05:54 06/13/18 05:54 Lab Results 06/12/18 06/12/18 06/12/18 Range/Units 16:18 16:18 16:40 WBC 4.77 L (4.8-10.8) K/uL RBC 4.92 (4.7-6.1) M/uL Hgb 14.3 (14.0-18.0) g/dL Hct 41.6 L (42-52) % MCV 84.6 (80-100) fL MCH 29.1 (25-34) pg MCHC 34.4 (32-36) g/dL RDW Std Deviation 46.1 (36.4-46.3) fL RDW Coeff of Miguel 15.0 H (11.5-14.5) % Plt Count 217 (130-400) K/uL MPV 8.7 (7.4-10.4) fL Immature Gran % (Auto) 0.0 % Neut % (Auto) 65.5 % Lymph % (Auto) 20.3 % [place] % (Auto) 13.4 % Eos % (Auto) 0.4 % Baso % (Auto) 0.4 % Immature Gran # (Auto) 0.00 (0.00-0.02) K/uL Neut # (Auto) 3.12 (1.4-6.5) K/uL Lymph # (Auto) 0.97 L (1.2-3.4) K/uL [place] # (Auto) 0.64 H (0.11-0.59) K/uL Eos # (Auto) 0.02 (0-0.5) K/uL Baso # (Auto) 0.02 (0-0.2) K/uL PT (9.0-12.0) Seconds INR (0.9-1.1) Sodium 135 L (136-145) mmol/L Potassium 3.7 (3.5-5.1) mmol/L Chloride 99 (98-107) mmol/L Carbon Dioxide 23 (21-32) mmol/L Anion Gap 13.0 H (3-11) BUN 14 (7-18) mg/dl Creatinine 0.94 (0.6-1.4) mg/dl Est Cr Clr Drug Dosing Not Reportable Est GFR ( Amer) 105.4 Est GFR (Non-Af Amer) 90.9 BUN/Creatinine Ratio 14.6 (10-20) Glucose 122 H (70-99) mg/dl Calcium 9.0 (8.5-10.1) mg/dl Magnesium (1.8-2.4) mg/dl Total Bilirubin 0.8 (0.1-1) mg/dl AST 68 H (15-37) U/L ALT 73 (12-78) U/L Alkaline Phosphatase 125 H (45-117) U/L Total Protein 8.4 H (6.4-8.2) gm/dl Albumin 3.9 (3.4-5.0) gm/dl Globulin 4.5 H (2.5-4.0) gm/dl Albumin/Globulin Ratio 0.9 (0.9-2) Triglycerides (0-150) mg/dl Cholesterol (0-200) mg/dl LDL Cholesterol, Calc mg/dl VLDL Cholesterol, Calc mg/dl HDL Cholesterol mg/dl Cholesterol/HDL Ratio Lipase 1235 H (73-393) U/L Folate (>5.38) ng/ml Urine Color Yellow Urine Appearance Clear (Clear) Urine pH 7.0 (4.5-7.5) Ur Specific [place] 1.025 (1.000-1.030) Urine Protein Trace H (Negative) Urine Glucose (UA) Negative (Negative) Urine Ketones Trace H (Negative) Urine Blood Negative (Negative) Urine Nitrite Negative (Negative) Urine Bilirubin Negative (Negative) Urine Urobilinogen Negative (Negative) Ur Leukocyte Esterase Negative (Negative) Urine WBC (Auto) 1-5 (0-5) /hpf Urine RBC (Auto) 0-4 (0-4) /hpf U Hyaline Cast (Auto) 0 (0-5) /lpf U Epithel Cells (Auto) 5-10 H (0-5) /lpf Urine Bacteria (Auto) Negative (Negative) Hepatitis C Ab Screen (Neg) 06/12/18 06/13/18 06/13/18 Range/Units 23:29 05:54 05:54 WBC 7.64 (4.8-10.8) K/uL RBC 4.88 (4.7-6.1) M/uL Hgb 14.1 (14.0-18.0) g/dL Hct 42.1 (42-52) % MCV 86.3 (80-100) fL MCH 28.9 (25-34) pg MCHC 33.5 (32-36) g/dL RDW Std Deviation 47.6 H (36.4-46.3) fL RDW Coeff of Miguel 15.0 H (11.5-14.5) % Plt Count 219 (130-400) K/uL MPV 8.8 (7.4-10.4) fL Immature Gran % (Auto) 0.1 % Neut % (Auto) 71.5 % Lymph % (Auto) 12.4 % [place] % (Auto) 15.2 % Eos % (Auto) 0.7 % Baso % (Auto) 0.1 % Immature Gran # (Auto) 0.01 (0.00-0.02) K/uL Neut # (Auto) 5.46 (1.4-6.5) K/uL Lymph # (Auto) 0.95 L (1.2-3.4) K/uL [place] # (Auto) 1.16 H (0.11-0.59) K/uL Eos # (Auto) 0.05 (0-0.5) K/uL Baso # (Auto) 0.01 (0-0.2) K/uL PT (9.0-12.0) Seconds INR (0.9-1.1) Sodium 135 L (136-145) mmol/L Potassium 3.2 L (3.5-5.1) mmol/L Chloride 101 (98-107) mmol/L Carbon Dioxide 25 (21-32) mmol/L Anion Gap 9.0 (3-11) BUN 9 D (7-18) mg/dl Creatinine 0.83 (0.6-1.4) mg/dl Est Cr Clr Drug Dosing 109.4 Est GFR ( Amer) 114.8 Est GFR (Non-Af Amer) 99.1 BUN/Creatinine Ratio 11.4 (10-20) Glucose 121 H (70-99) mg/dl Calcium 8.5 (8.5-10.1) mg/dl Magnesium 2.2 (1.8-2.4) mg/dl Total Bilirubin 1.3 H D (0.1-1) mg/dl AST 32 (15-37) U/L ALT 53 (12-78) U/L Alkaline Phosphatase 117 (45-117) U/L Total Protein 7.3 (6.4-8.2) gm/dl Albumin 3.1 L (3.4-5.0) gm/dl Globulin 4.2 H (2.5-4.0) gm/dl Albumin/Globulin Ratio 0.7 L (0.9-2) Triglycerides 160 H (0-150) mg/dl Cholesterol 144 (0-200) mg/dl LDL Cholesterol, Calc 22 mg/dl VLDL Cholesterol, Calc 32 mg/dl HDL Cholesterol 90 mg/dl Cholesterol/HDL Ratio 2 Lipase 2250 H (73-393) U/L Folate 16.53 (>5.38) ng/ml Urine Color Urine Appearance (Clear) Urine pH (4.5-7.5) Ur Specific [place] (1.000-1.030) Urine Protein (Negative) Urine Glucose (UA) (Negative) Urine Ketones (Negative) Urine Blood (Negative) Urine Nitrite (Negative) Urine Bilirubin (Negative) Urine Urobilinogen (Negative) Ur Leukocyte Esterase (Negative) Urine WBC (Auto) (0-5) /hpf Urine RBC (Auto) (0-4) /hpf U Hyaline Cast (Auto) (0-5) /lpf U Epithel Cells (Auto) (0-5) /lpf Urine Bacteria (Auto) (Negative) Hepatitis C Ab Screen (Neg) 06/13/18 06/13/18 Range/Units 05:54 05:54 WBC (4.8-10.8) K/uL RBC (4.7-6.1) M/uL Hgb (14.0-18.0) g/dL Hct (42-52) % MCV (80-100) fL MCH (25-34) pg MCHC (32-36) g/dL RDW Std Deviation (36.4-46.3) fL RDW Coeff of Miguel (11.5-14.5) % Plt Count (130-400) K/uL MPV (7.4-10.4) fL Immature Gran % (Auto) % Neut % (Auto) % Lymph % (Auto) % [place] % (Auto) % Eos % (Auto) % Baso % (Auto) % Immature Gran # (Auto) (0.00-0.02) K/uL Neut # (Auto) (1.4-6.5) K/uL Lymph # (Auto) (1.2-3.4) K/uL [place] # (Auto) (0.11-0.59) K/uL Eos # (Auto) (0-0.5) K/uL Baso # (Auto) (0-0.2) K/uL PT 11.1 (9.0-12.0) Seconds INR 1.1 (0.9-1.1) Sodium (136-145) mmol/L Potassium (3.5-5.1) mmol/L Chloride (98-107) mmol/L Carbon Dioxide (21-32) mmol/L Anion Gap (3-11) BUN (7-18) mg/dl Creatinine (0.6-1.4) mg/dl Est Cr Clr Drug Dosing Est GFR ( Amer) Est GFR (Non-Af Amer) BUN/Creatinine Ratio (10-20) Glucose (70-99) mg/dl Calcium (8.5-10.1) mg/dl Magnesium (1.8-2.4) mg/dl Total Bilirubin (0.1-1) mg/dl AST (15-37) U/L ALT (12-78) U/L Alkaline Phosphatase (45-117) U/L Total Protein (6.4-8.2) gm/dl Albumin (3.4-5.0) gm/dl Globulin (2.5-4.0) gm/dl Albumin/Globulin Ratio (0.9-2) Triglycerides (0-150) mg/dl Cholesterol (0-200) mg/dl LDL Cholesterol, Calc mg/dl VLDL Cholesterol, Calc mg/dl HDL Cholesterol mg/dl Cholesterol/HDL Ratio Lipase (73-393) U/L Folate (>5.38) ng/ml Urine Color Urine Appearance (Clear) Urine pH (4.5-7.5) Ur Specific [place] (1.000-1.030) Urine Protein (Negative) Urine Glucose (UA) (Negative) Urine Ketones (Negative) Urine Blood (Negative) Urine Nitrite (Negative) Urine Bilirubin (Negative) Urine Urobilinogen (Negative) Ur Leukocyte Esterase (Negative) Urine WBC (Auto) (0-5) /hpf Urine RBC (Auto) (0-4) /hpf U Hyaline Cast (Auto) (0-5) /lpf U Epithel Cells (Auto) (0-5) /lpf Urine Bacteria (Auto) (Negative) Hepatitis C Ab Screen Neg (Neg) Imaging Data Radiologist's Impression: Radiology results as stated below per my review and the radiologist's interpretation: XR chest 1V portable CLINICAL HISTORY: Vomiting. COMPARISON STUDY: Chest radiograph December 11, [address] December 08, 2017. FINDINGS: There is no pneumothorax or pleural effusion. There is no evidence for pulmonary edema or pneumonia. Linear right midlung opacity favors atelectasis or scarring. Note is made of mild cardiomegaly without evidence for pulmonary edema. IMPRESSION: No acute cardiopulmonary findings. Electronically signed by: Ryne Diane M.D. 06/12/2018 4:11 PM KUB CLINICAL HISTORY: Vomiting. COMPARISON STUDY: [facility]UB December 13, 2017. FINDINGS: The bowel gas pattern is normal. Moderate bilateral hip osteoarthritis , greater on the left, is incidentally noted. There is no evidence for free air although sensitivity is diminished on this supine exam. IMPRESSION: No evidence for a bowel obstruction. Electronically signed by: Ryne Diane M.D. 06/12/2018 4:[address] OF THE ABDOMEN AND PELVIS WITH CONTRAST CLINICAL HISTORY: Abdominal pain. COMPARISON STUDY: CT of the abdomen and pelvis and right upper quadrant ultrasound December 09, 2017. TECHNIQUE: Following IV administration of 94 mL of Optiray-320, axial images of the abdomen and pelvis were obtained from the lung bases to the proximal femurs. Images were reviewed in the axial, sagittal, and coronal planes. IV contrast was administered without complication. Automated exposure control was utilized for the study. A dose lowering technique was utilized adhering to the principles of ALARA. CT DOSE: 511.01 mGy.cm FINDINGS: Lung bases are clear. There is probable fatty infiltration of the liver. No hepatic lesions are identified. There is no biliary or pancreatic ductal dilatation. There is moderate peripancreatic infiltration and fluid. The main, left and right portal veins are patent. The splenic vein is somewhat diminutive but patent. The spleen, adrenal glands and kidneys are normal. There is no hydronephrosis. No well-defined peripancreatic fluid collection is present. No pseudoaneurysm is identified on this non-CTA exam. There is no evidence for pancreatic necrosis. No well-defined mass is identified. The caliber and wall thickness of small and large bowel are normal. The appendix is normal. There are no suspicious osseous lesions. IMPRESSION: 1. Moderate peripancreatic infiltration and fluid consistent with acute pancreatitis. No well-defined peripancreatic fluid collection. No evidence for pancreatic necrosis. No mass identified by CT however a follow-up CT or MRI in 1 -2 months to ensure resolution is recommended. 2. Fatty infiltration of the liver. 3. No bowel obstruction. Normal appendix. Electronically signed by: Ryne Diane M.D. 06/12/2018 8:30 PM Blood Pressure Blood Pressure Findings: Elevated blood pressure Blood Pressure Disposition: further management by hospitalist [facility] Narrative The patient is a 57-year-old male who is a history of chronic pancreatitis who presented to the emergency department for an evaluation of upper abdominal pain and nausea vomiting. The patient did not have an exam consistent with an acute surgical abdomen however his lipase appear to be elevated compared to his baseline. He was treated with IV fluids and IV pain medication. He was also given IV antiemetics. He continues to have significant symptoms. For this reason I discussed his case with the on-call [facility] hospitalist group. They have agreed to evaluate the patient in the emergency department for further management and disposition. Impression & Plan Abdominal pain, Acute pancreatitis, Nausea & vomiting Discharge Plan Visit Data *Final* Discharge Date/Time: 06/12/18 19:47 Chief Complaint: Nausea Stated Complaint: NAUSEA, VOMITING, ETOH, ED Provider: Kevin [facility] Discharge Problem: Abdominal pain, Acute pancreatitis, Nausea & vomiting Patient Disposition: Admitted As Inpatient Discharge Instructions Interventions: ED Discharge Assessment Last Done: 06/12/18 19:47 The scribe's documentation has been prepared under my direction and personally reviewed by me in its entirety. I confirm that the note above accurately reflects all work, treatment, procedures, and medical decision making performed by me.
[2018-06-12 16:32] LABS: Basophils # (auto) 0.02 K/uL (0-0.2); Basophils % (auto) 0.4 %; Eosinophils # (auto) 0.02 K/uL (0-0.5); Eosinophils % (auto) 0.4 %; Hematocrit (blood only) 41.6 % (42-52); Hemoglobin 14.3 g/dL (14.0-18.0); Lymphocytes # (auto) 0.97 K/uL (1.2-3.4); Lymphocytes % (auto) 20.3 %; Mean Corpuscular Hgb Conc 34.4 g/dL (32-36); Mean Corpuscular Volume 84.6 fL (80-100); Mean Platelet Volume 8.7 fL (7.4-10.4); Monocytes # (auto) 0.64 K/uL (0.11-0.59); Monocytes % (auto) 13.4 %; Neutrophils # (auto) 3.12 K/uL (1.4-6.5); Neutrophils % (auto) 65.5 %; Platelet Count 217 K/uL (130-400); RDW Standard Deviation 46.1 fL (36.4-46.3); Red Blood Count 4.92 M/uL (4.7-6.1); White Blood Count 4.77 K/uL (4.8-10.8)
[2018-06-12 16:50] LABS: Alanine Aminotransferase 73 U/L (12-78); Albumin Level 3.9 gm/dl (3.4-5.0); Aspartate Aminotransferase 68 U/L (15-37); BUN Creatinine Ratio 14.6 (10-20); Blood Urea Nitrogen 14 mg/dl (7-18); Carbon Dioxide 23 mmol/L (21-32); Chloride 99 mmol/L (98-107); Est GFR (African American) 105.4; Est GFR (Non-African American) 90.9; Glucose 122 mg/dl (70-99); Potassium 3.7 mmol/L (3.5-5.1); Sodium 135 mmol/L (136-145)
[2018-06-12 16:53] LABS: Albumin Globulin Ratio 0.9 (0.9-2); Alkaline Phosphatase 125 U/L (45-117); Bilirubin,Total 0.8 mg/dl (0.1-1); Globulin 4.5 gm/dl (2.5-4.0); Total Protein 8.4 gm/dl (6.4-8.2)
[2018-06-12 17:01] LABS: Appearance Urine Clear (Clear); Bacteria Urine Automated Negative (Negative); Bilirubin Urine Negative (Negative); Cast Urine Automated 0 /lpf (0-5); Color Urine Yellow; Glucose Urine UA Negative (Negative); Ketones Urine Trace (Negative); Leukocyte Esterase Urine Negative (Negative); Nitrite Urine Negative (Negative); Protein Urine Trace (Negative); Specific Gravity Urine 1.025 (1.000-1.030); Urobilinogen Urine Negative (Negative)
--- NOTE | 2018-06-12 19:07 | History & Physical Report ---
Date of Service June 12, 2018 Assessment & Plan (1) Abdominal pain: This is a 57-year-old -Uz[place] male with significant past medical history of HTN, HLD, alcohol abuse, tobacco abuse, history of recurrent pancreatitis, depression, history of traumatic right BKA who presents to [facility] secondary to abdominal pain times 1 day. Patient with history of recurrent alcoholic pancreatitis with current daily EtOH abuse. In ED patient's lipase was 1235, AST 68, alk phos 125, ALT 73, WBC 4.7, hemoglobin 14.3, hematocrit 41.6, platelet 251, BUN 14, creatinine 0.94. KUB was negative for bowel obstruction, chest x-ray negative for any acute abnormality. In ED he received IV fentanyl, IV Zofran as well as 1 L of IVF with minimal relief of symptoms. Patient is being admitted secondary to abdominal pain, elevated transaminitis, elevated lipase most likely in setting of acute pancreatitis. DDX but not limited to : Alcoholic pancreatitis, gall stone pancreatitis, PUD, necrotizing pancreatitis, cholecystitis, colitis -Admit to med/surg -NPO, bowel rest -IV LR at 200cc/hr -consult GI -repeat CBC, CMP, Lipase in a.m. -IV morphine 4mg IV Q4h -CT Abd/Pelvis w/ IV contrast -place on ETOH withdrawl protocol, most recent admission 12/05 developed DT with resp distress [facility] (2) Pancreatitis, alcoholic, acute: -plan as above (3) ETOH abuse: -Patient with prior admission in November 2017 in which patient developed alcohol withdrawal, DT, acute respiratory distress requiring intubation with mechanical ventilation -AWSS scale, gabapentin taper, and will place on Librium 25 mg twice daily to help prevent DT -Encourage alcohol cessation -We will place on folic acid and thiamine replacement (4) HTN (hypertension): -Blood pressure currently elevated in setting of acute pain -Obtain adequate pain control -Continue lisinopril and Coreg (5) HLD (hyperlipidemia): -Previously on atorvastatin 20 mg daily, this was discontinued in lieu of recurrent pancreatitis -Check lipid panel in a.m. (6) Phantom pain after amputation of lower extremity: -Home regimen of gabapentin 300 mg 3 times daily -Place gabapentin on hold, placed on gabapentin taper per AWSS protocol -Once gabapentin taper complete, resume home dose (7) Depression: -Previously had been on Prozac in the past, states he has not been taking this for some time (8) Tobacco abuse: -Encourage smoking cessation -Patient refusing nicotine patch (9) DVT prophylaxis: -lovenox 40mg SQ Q24hr Disposition: D/C to home when medically able with strict ETOH Cessation Follow up: PCP Dr. Oseguera upon discharge Patient was seen in collaboration with Dr. Short, please see addendum History of Present Illness Chief Complaint: Abdominal pain x 1 day. Primary Care Provider: Liyah Oseguera MD This is a 57-year-old -Uz[place] male with significant past medical history of HTN, HLD, alcohol abuse, tobacco abuse, history of recurrent pancreatitis, depression, history of traumatic right BKA who presents to [facility] secondary to abdominal pain times 1 day. Pain is located in epigastrium and periumbilical region, radiates to left upper quadrant , constant, rated as 20/10, food/liquid makes symptoms worse, nothing improves symptoms, has history of pancreatitis in past. States "I am never drinking again." Saturday 06/09 patient drank half a gallon of eggnog, fifth of vodka and 12 beers. He drinks daily approximately 12 beers a day and occasional fits of vodka. Further he has tobacco abuse at half a pack a day for approximately 40 years. Abdominal pain is associated with nausea, yellow/gomez emesis. Overall poor appetite and inability to tolerate oral intake times 2 days. Denies fever , chills, sweats, lightheadedness, dizziness, chest pain, palpitations, shortness of breath, VILLEDA, hematemesis, melena, hematochezia, hemoptysis, diarrhea, dysuria, increased urgency or frequency with urination, hematuria. He ambulates with a cane and recently got a new right BKA prosthetic. Allergies Allergy/AdvReac Type Severity Reaction Status Date / Time No Known Allergies Allergy Verified 07/03/18 21:39 Home Medications Home Medications Medication Instructions Recorded Confirmed Type gabapentin [Neurontin] 300 mg PO TID 02/21/18 07/03/18 History omeprazole 40 mg PO QAM 02/21/18 07/03/18 History ranitidine HCl 150 mg PO QAM 02/21/18 07/03/18 History carvedilol 3.125 mg PO DAILY 30 Days #60 tab 06/15/18 07/03/18 Rx clonidine HCl 0.1 mg PO Q12 30 Days #60 tab 06/15/18 07/03/18 Rx folic acid 1 mg PO QAM 30 Days #30 tab 06/15/18 07/03/18 Rx thiamine HCl (vitamin B1) [Vitamin 100 mg PO QAM 30 Days #30 tab 06/15/18 Rx B-1] albuterol sulfate [Proventil HFA] 2 puff INHALATION Q4H PRN 07/03/18 07/03/18 History atorvastatin 20 mg PO DAILY 07/03/18 07/03/18 History fluoxetine 10 mg PO DAILY 07/03/18 07/03/18 History lisinopril 20 mg PO DAILY 07/03/18 07/03/18 History polyethylene glycol 3350 [Laxative 17 g PO DAILY PRN 07/03/18 07/03/18 History PEG 3350] sennosides-docusate sodium [Senna 2 tab PO DAILY 07/03/18 07/03/18 History with Docusate Sodium] Past Med/Surg History Medical History Depression (Chronic) 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 GERD (gastroesophageal reflux disease) Hx of hematuria Hx of pancreatitis Obesity Family History Sister Family history of diabetes mellitus Brother Pancreatic carcinoma Social History marital status: Single Current Living Situation: Family Current Living Situation Comment: sister and brother Other Information That Helps Us Care for You: No Feels Safe at Home: Yes Safety Concerns: Feels Safe At This Time Smoking Status: Current some day smoker Tobacco Type: cigarettes Cigarettes per Day: 10-12 Do You Dip or Chew Tobacco: No Tobacco Cessation Education Requested by Patient: No Hx Alcohol Use: Yes Alcohol type: beer and hard liquor Alcohol Intake Frequency : 0-2 drinks per day Alcohol Intake Frequency Comment: 12 pack of beer daily along with 1/5 of vodka Hx Substance Use: Yes substance use type: marijuana and crack/cocaine Last Used Substance: Days (ago) Beliefs That Will Affect Care: None Preferred Language: Scottish Communication Ability: Effective Tumbling Instructor Required: No Review of Systems All systems reviewed & are unremarkable except as noted in HPI & below Physical Exam 2 Vital Signs (Past 24 Hours): Last Vital Signs Temp 36.7 C 06/12/18 16:51 Pulse 71 06/12/18 16:51 Resp 18 06/12/18 16:51 BP 162/112 H 06/12/18 16:51 Pulse Ox 99 06/12/18 16:51 Physical Exam: Gen: WD/WN, M, in acute pain, lying in bed, poor hygiene, pleasant, conversing easily Head: Normocephalic, Atraumatic Eyes: Sclera normal, no conjunctival injection, PERRLA, EOMI ENT: Gross hearing intact, normal pharynx, mucous membranes moist, poor dentition Neck: supple, no adenopathy, No JVD, no bruit, Resp: Clear to auscultation b/l, no wheeze, rales, rhonchi. 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 Extremities: No edema bilaterally, R BKA with compression dressing in place Skin: warm, moist, no rash, negative turgor, cap refill < 2sec Neuro: Alert and oriented x 3, speech normal, good mood/affect, cran nerve 2-12 intact grossly : deferred Results & Data Laboratory Results Short CBC 06/12/18 06/12/18 Range/Units 16:18 16:18 WBC 4.77 L (4.8-10.8) K/uL Hgb 14.3 (14.0-18.0) g/dL Hct 41.6 L (42-52) % Plt Count 217 (130-400) K/uL AST 68 H (15-37) U/L Alkaline Phosphatase 125 H (45-117) U/L Lipase 1235 H (73-393) U/L BMP 06/12/18 16:18 Sodium 135 L Potassium 3.7 Chloride 99 Carbon Dioxide 23 BUN 14 Creatinine 0.94 Glucose 122 H Calcium 9.0 Liver Function 06/12/18 Range/Units 16:18 Total Bilirubin 0.8 (0.1-1) mg/dl AST 68 H (15-37) U/L ALT 73 (12-78) U/L Alkaline Phosphatase 125 H (45-117) U/L Albumin 3.9 (3.4-5.0) gm/dl Urine 06/12/18 Range/Units 16:40 Urine Color Yellow Urine Appearance Clear (Clear) Urine pH 7.0 (4.5-7.5) Ur Specific [employer] 1.025 (1.000-1.030) Urine Protein Trace H (Negative) Urine Glucose (UA) Negative (Negative) Diagnostic Findings CXR: FINDINGS: There is no pneumothorax or pleural effusion. There is no evidence for pulmonary edema or pneumonia. Linear right midlung opacity favors atelectasis or scarring. Note is made of mild cardiomegaly without evidence for pulmonary edema. IMPRESSION: No acute cardiopulmonary findings. KUB Xray: IMPRESSION: No evidence for a bowel obstruction. Code Status & VTE Plan Code Status Full Code, discussed with patient VTE Prophylaxis Plan VTE Prophylaxis will be ordered: Yes Supervising Physician Co-Signing Physician Notes Patient was seen and examined. Agreed with Radha FARRIS. I participated in the history, physical, review of systems, and physical exam. I reviewed the medications with the patient. I reviewed patient 's Labs, EKG and imaging. I formulated and discussed the assessment and plan with Radha FARRIS. I took the time to discuss and explain to the patient the lab, the imaging finding and the plan. I answered all the questions. MD Deja
[2018-06-12] MEDS ORDERED: MoRPHine SULFATE 4 MG/ML 1 ML CARP\\VIAL IV PRN (19:11)
[2018-06-12] MEDS ORDERED: OPTIRAY 320 125ml IV PRN (20:08)
[2018-06-12] MEDS ORDERED: MAGNESIUM HYDROXIDE SUSP 30 ML UDC PO PRN (20:23)
[2018-06-12] MEDS ORDERED: LORazepam 1 MG TAB PO PRN (20:23)
[2018-06-12] MEDS ORDERED: POLYETHYLENE (MIRALAX) 17 GM PACK PO PRN (20:23)
[2018-06-12] MEDS ORDERED: GABAPENTIN 1200MG ALCOHOL WITHDRAWAL LOAD PO STA (20:23)
[2018-06-12] MEDS ORDERED: ACETAMINOPHEN 325 MG TAB PO PRN (20:23)
[2018-06-12] MEDS ORDERED: ALUMINUM/MAGNESIUM SUSP 30 ML UDC PO PRN (20:23)
--- NOTE | 2018-06-12 20:32 | CT Scan Report ---
CT OF THE ABDOMEN AND PELVIS WITH CONTRAST CLINICAL HISTORY: Abdominal pain. COMPARISON STUDY: CT of the abdomen and pelvis and right upper quadrant ultrasound December 09, 2017. TECHNIQUE: Following IV administration of 94 mL of Optiray-320, axial images of the abdomen and pelvi s were obtained from the lung bases to the proximal femurs. Images were reviewed in the axial, sagitt al, and coronal planes. IV contrast was administered without complication. Automated exposure contro l was utilized for the study. A dose lowering technique was utilized adhering to the principles of A GEO. CT DOSE: 511.01 mGy.cm FINDINGS: Lung bases are clear. There is probable fatty infiltration of the liver. No hepatic lesions are identified. There is no biliary or pancreatic ductal dilatation. There is moderate peripancreati c infiltration and fluid. The main, left and right portal veins are patent. The splenic vein is somew hat diminutive but patent. The spleen, adrenal glands and kidneys are normal. There is no hydronephro sis. No well-defined peripancreatic fluid collection is present. No pseudoaneurysm is identified on t his non-CTA exam. There is no evidence for pancreatic necrosis. No well-defined mass is identified. T he caliber and wall thickness of small and large bowel are normal. The appendix is normal. There are no suspicious osseous lesions. IMPRESSION: 1. Moderate peripancreatic infiltration and fluid consistent with acute pancreatitis. No well-defined peripancreatic fluid collection. No evidence for pancreatic necrosis. No mass identified by CT howev er a follow-up CT or MRI in 1-2 months to ensure resolution is recommended. 2. Fatty infiltration of the liver. 3. No bowel obstruction. Normal appendix. Electronically signed by: Ryne Diane M.D. 06/12/2018 8:30 PM
[2018-06-12] MEDS: LACTATED RINGER'S 1,000 ML IV SCH (20:41)
[2018-06-12] MEDS ORDERED: MoRPHine SULFATE 4 MG/ML 1 ML CARP\\VIAL IV STA (20:49)
[2018-06-12] MEDS ORDERED: GABAPENTIN 600 MG TAB PO SCH (22:00)
[2018-06-12] MEDS: chlordiazePOXIDE HCl 25 MG CAP PO SCH (22:19)
[2018-06-12] MEDS ORDERED: CARVEDILOL 3.125 MG TAB PO SCH (22:30)
[2018-06-12] MEDS ORDERED: LORazepam 2 MG/4 ML VIAL IV PRN (23:19)
[2018-06-12] MEDS ORDERED: LORazepam 1 MG/2 ML VIAL IV PRN (23:19)
[2018-06-12] MEDS ORDERED: LORazepam 3 MG/6 ML VIAL IV PRN (23:19)
[2018-06-12] MEDS ORDERED: ATIVAN IV ALCOHOL WITHDRAWL IV SCH (23:30)
[2018-06-13] MEDS: OXYCODONE HCL IR 5 MG TAB (IMMEDIATE RELEASE) PO PRN ×3 (00:01→18:20)
[2018-06-13] MEDS: ONDANSETRON INJ 2 MG/ML 2 ML VIAL IV PRN ×2 (01:36→23:36)
[2018-06-13] MEDS: MoRPHine SULFATE 4 MG/ML 1 ML CARP\\VIAL IV PRN ×3 (01:37→08:36)
[2018-06-13] MEDS: LACTATED RINGER'S 1,000 ML IV SCH ×6 (01:41→23:30)
[2018-06-13] MEDS: LISINOPRIL 5 MG TAB PO SCH ×2 (04:36→09:48)
[2018-06-13] MEDS: CARVEDILOL 3.125 MG TAB PO SCH ×2 (04:37→20:29)
[2018-06-13] MEDS: GABAPENTIN 600 MG TAB PO SCH ×3 (05:38→20:28)
[2018-06-13 06:34] LABS: Basophils # (auto) 0.01 K/uL (0-0.2); Basophils % (auto) 0.1 %; Eosinophils # (auto) 0.05 K/uL (0-0.5); Eosinophils % (auto) 0.7 %; Hematocrit (blood only) 42.1 % (42-52); Hemoglobin 14.1 g/dL (14.0-18.0); Immature Granulocytes # (auto) 0.01 K/uL (0.00-0.02); Immature Granulocytes % (auto) 0.1 %; Lymphocytes # (auto) 0.95 K/uL (1.2-3.4); Lymphocytes % (auto) 12.4 %; Mean Corpuscular Hgb Conc 33.5 g/dL (32-36); Mean Corpuscular Volume 86.3 fL (80-100); Mean Platelet Volume 8.8 fL (7.4-10.4); Monocytes # (auto) 1.16 K/uL (0.11-0.59); Monocytes % (auto) 15.2 %; Neutrophils # (auto) 5.46 K/uL (1.4-6.5); Neutrophils % (auto) 71.5 %; Platelet Count 219 K/uL (130-400); RDW Standard Deviation 47.6 fL (36.4-46.3); Red Blood Count 4.88 M/uL (4.7-6.1); White Blood Count 7.64 K/uL (4.8-10.8)
[2018-06-13 06:40] LABS: INR 1.1 (0.9-1.1); Prothrombin Time 11.1 Seconds (9.0-12.0)
[2018-06-13 07:01] LABS: Albumin Level 3.1 gm/dl (3.4-5.0); BUN Creatinine Ratio 11.4 (10-20); Calcium 8.5 mg/dl (8.5-10.1); Creatinine Clr Calc Pharmacy 109.4 ml/min; Est GFR (African American) 114.8; Est GFR (Non-African American) 99.1; Magnesium 2.2 mg/dl (1.8-2.4); Potassium 3.2 mmol/L (3.5-5.1)
[2018-06-13 07:05] LABS: Albumin Globulin Ratio 0.7 (0.9-2); Bilirubin,Total 1.3 mg/dl (0.1-1); Globulin 4.2 gm/dl (2.5-4.0); Total Protein 7.3 gm/dl (6.4-8.2)
[2018-06-13] MEDS: chlordiazePOXIDE HCl 25 MG CAP PO SCH ×2 (08:41→20:28)
[2018-06-13] MEDS: ENOXAPARIN INJ 40 MG/0.4 ML SYR SQ SCH (08:56)
[2018-06-13] MEDS ORDERED: LISINOPRIL 5 MG TAB PO SCH (09:00)
[2018-06-13] MEDS ORDERED: CARVEDILOL 3.125 MG TAB PO SCH (09:00)
[2018-06-13] MEDS: FOLIC ACID 1 MG TAB PO SCH (09:45)
[2018-06-13] MEDS: PANTOprazole 40 MG TAB PO SCH (09:45)
[2018-06-13] MEDS: THIAMINE HCL 100 MG TAB PO SCH (09:45)
[2018-06-13] MEDS ORDERED: hydroCHLOROthiazide 25 MG TAB PO STA (11:26)
[2018-06-13] MEDS: HYDROmorphone INJ 1 MG/ML SYRINGE IV PRN ×4 (12:04→23:29)
[2018-06-13] MEDS: POTASSIUM CHLORIDE / WTR 10 MEQ/100 ML PLCT IV SCH ×2 (12:25→13:27)
[2018-06-13] MEDS: cloNIDine HCl 0.1 MG TAB PO PRN ×2 (12:29→20:38)
--- NOTE | 2018-06-13 12:59 | Gastrointestinal Consultation ---
Date of Consultation June 13, 2018 History of Present Illness Attending Physician: Bel Vu MD Reason for consult: pancreatitis HPI: 57 yo M with h/o alcoholism/chronic tobacco/MJ, h/o pancreatitis in past, now admit with 2 day h/o mid upper abdominal pain, nausea and intractable vomiting. Pt states that pain is similar to pancreatitis pain in the past, and occurred after drinking binge. On admission, lipase > 1200, AST 68 with nl AST, AP 15, Hgb 14, BUN 14. CT with IV contrast showed no lorraine dil, peripanc infiltration without necrosis, and diminutive splenic vein. He received approx 4 liters of fluid since admission, with hgb persistently 14 and fall in BUN to 9. He continues to complain of abd pain despite high doses of narcotics, reports marked hunger, minimal flatus and no BM. PE: He is sleeping and appears comfortable upon my entry. HEENT: Oral and scleral Mucosa slightly dry and pink CV: RRR Resp: CTA Abd: mildly distended and tympanic, mildly tender in epigastrium on moderate palpation without rebound or guarding, decrease BS Extrem: mild clubbing, skin is dry Labs reviewed A/P: Acute alcoholic pancreatitis - Cont IV hydration. He appears mildly dry to me, and describes dark urine -- will increase fluid rate to 200/hr for today, with plans to decrease tomorrow. - He reports hunger, but has abd distention and minimal flatus. I suspect that he has a mild ileus. Will attempt clears, with Reglan + dulcolax. Consider addition of Relistor given high doses of narcotics. - Analgesia per primary service. He has risk factors for drug seeking, which may make accurate assessment of pain difficult. - Abd uls to r/o stones as outpt. - There is no need to follow lipase daily, as this has no management or prognostic implications. Allergies Allergy/AdvReac Type Severity Reaction Status Date / Time No Known Allergies Allergy Verified 06/12/18 16:17 Home Medications Home Medications Medication Instructions Recorded Confirmed Type gabapentin [Neurontin] 300 mg PO TID 02/21/18 06/12/18 History lisinopril 5 mg PO QAM 02/21/18 06/12/18 History omeprazole 40 mg PO QAM 02/21/18 06/12/18 History ranitidine HCl 150 mg PO QAM 02/21/18 06/12/18 History carvedilol 3.125 mg PO DAILY 06/12/18 06/12/18 History Patient History Medical History Depression (Chronic) 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 GERD (gastroesophageal reflux disease) Hx of hematuria Hx of pancreatitis Obesity Surgical History Hx of right BKA (Chronic) 2013 s/p fracture of tibia/fibula with associated infection Complete below knee amputation of right lower extremity History of mandibular surgery BROKEN JAW 1978 History of tooth extraction ALL TEETH REMOVED Family History Sister Family history of diabetes mellitus Brother Pancreatic carcinoma Social History marital status: Single Current Living Situation: Family Current Living Situation Comment: LIVES WITH SISTER Other Information That Helps Us Care for You: No Feels Safe at Home: Yes Safety Concerns: Feels Safe At This Time Smoking Status: Current some day smoker Tobacco Type: cigarettes Do You Dip or Chew Tobacco: No Second Hand Exposure: Yes Tobacco Cessation Education Requested by Patient: No Hx Alcohol Use: Yes Alcohol type: beer and hard liquor Alcohol Intake Frequency : 3 or more drinks per day Alcohol Intake Frequency Comment: 12 pack of beer daily along with 1/5 of vodka Hx Substance Use: Yes substance use type: marijuana Last Used Substance: Days ( ago) Last Used Substance Other:: yesterday Beliefs That Will Affect Care: None Communication Ability: Effective Physical Exam 2 Vital Signs (Past 24 Hours): Last Vital Signs Temp 36.6 C 06/13/18 12:24 Pulse 80 06/13/18 12:24 Resp 18 06/13/18 12:24 BP 195/108 H 06/13/18 12:24 Pulse Ox 95 06/13/18 12:24
[2018-06-13] MEDS ORDERED: BISACODYL 5 MG TABEC PO ONE (13:13)
[2018-06-13] MEDS: METOCLOPRAMIDE HCL INJ 5 MG/ML 2 ML VIAL IV SCH ×2 (13:43→20:29)
--- NOTE | 2018-06-13 17:25 | Hospitalist Progress Note ---
Date of Service June 13, 2018 Assessment & Plan (1) Abdominal pain: This is a 57-year-old -Swedish male with significant past medical history of HTN, HLD, alcohol abuse, tobacco abuse, history of recurrent pancreatitis, depression, history of traumatic right BKA who presents to [facility] secondary to abdominal pain times 1 day. Patient with history of recurrent alcoholic pancreatitis with current daily EtOH abuse. In ED patient's lipase was 1235, AST 68, alk phos 125, ALT 73, WBC 4.7, hemoglobin 14.3, hematocrit 41.6, platelet 251, BUN 14, creatinine 0.94. KUB was negative for bowel obstruction, chest x-ray negative for any acute abnormality. In ED he received IV fentanyl, IV Zofran as well as 1 L of IVF with minimal relief of symptoms. Patient is being admitted secondary to abdominal pain, elevated transaminitis, elevated lipase most likely in setting of acute pancreatitis. DDX but not limited to : Alcoholic pancreatitis, gall stone pancreatitis, PUD, necrotizing pancreatitis, cholecystitis, colitis -NPO, bowel rest -IV LR at 200cc/hr -consult GI-appreciate input Recommends continue bowel rest, acute treatment for pancreatitis, No GI procedure planned this admission -place on ETOH withdrawl protocol, most recent admission 12/05 developed DT with resp distress requiring intubation/mech ventilation (2) Pancreatitis, alcoholic, acute: -Third admission with acute pancreatitis after alcohol drinking/abuse Patient is counseled multiple times Continue bowel rest, IV fluids, pain control (3) ETOH abuse: No sign of symptoms of active withdrawal -Patient with prior admission in November 2017 in which patient developed alcohol withdrawal, DT, acute respiratory distress requiring intubation with mechanical ventilation -AWSS scale, gabapentin taper, and will place on Librium 25 mg twice daily to help prevent DT -Encourage alcohol cessation -We will place on folic acid and thiamine replacement (4) HTN (hypertension): -Blood pressure currently elevated -Added as needed clonidine -Continue lisinopril and Coreg (5) HLD (hyperlipidemia): -Previously on atorvastatin 20 mg daily, this was discontinued in lieu of recurrent pancreatitis -Check lipid panel in a.m. (6) Phantom pain after amputation of lower extremity: -Home regimen of gabapentin 300 mg 3 times daily -Place gabapentin on hold, placed on gabapentin taper per AWSS protocol -Once gabapentin taper complete, resume home dose (7) Depression: -Previously had been on Prozac in the past, states he has not been taking this for some time (8) Tobacco abuse: -Encourage smoking cessation -Patient refusing nicotine patch (9) DVT prophylaxis: -lovenox 40mg SQ Q24hr Disposition: D/C to home when medically able with strict ETOH Cessation Follow up: PCP Dr. Oseguera upon discharge Subjective Complains of abdominal pain, Requesting Dilaudid IV frequently Blood pressure remains persistently elevated, patient denies of any headache or shortness of breath or chest heaviness Patient is scheduled for outpatient EGD, had to cancel multiple times secondary to transportation She is requesting if EEG could be done inpatient GI already on board, evaluated the patient earlier, recommends outpatient EGD Patient is updated, possible outpatient EGD preferably by GI team Patient is patient remains n.p.o. for acute pancreatitis, continue IV fluids, suspicious heart bouts of acute pancreatitis secondary to alcohol abuse Patient was Counseled repeatedly,pt plans quitting alcohol after being discharged from hospital Physical Exam 2 Vital Signs (Past 24 Hours): Last Vital Signs Temp 36.5 C 06/13/18 15:07 Pulse 80 06/13/18 15:07 Resp 16 06/13/18 15:07 BP 174/92 H 06/13/18 16:42 Pulse Ox 94 06/13/18 15:07 Constitutional: WD/WN, vitals as above no acute distress Eyes: + anicteric sclerae ENMT: external ear and nose normal, oropharynx normal Neck: trachea midline, no thyromegaly Respiratory: normal respiratory effort, lungs clear to auscultation Cardiovascular: RRR, no murmur, no edema Gastrointestinal (Abdomen): Inspection/Auscultation: abdomen normal to inspection Percussion/Palpation: + abdomen tender and abdomen soft; no guarding Musculoskeletal: no cyanosis or clubbing, extremities motor strength 5/5 Skin: no rashes, warm and dry Neurologic: PERRL, EOMI, accommodation nl, no face palsy, no dysarthria Psychiatric: A+Ox3, euthymic affect
[2018-06-14] MEDS: HYDROmorphone INJ 1 MG/ML SYRINGE IV PRN ×4 (03:26→12:54)
[2018-06-14] MEDS: LACTATED RINGER'S 1,000 ML IV SCH ×4 (04:44→20:41)
[2018-06-14 05:44] LABS: Estimated Average Glucose 131 mg/dl
[2018-06-14] MEDS: GABAPENTIN 600 MG TAB PO SCH ×2 (06:48→13:37)
[2018-06-14] MEDS: PANTOprazole 40 MG TAB PO SCH (07:31)
[2018-06-14] MEDS: FOLIC ACID 1 MG TAB PO SCH (07:31)
[2018-06-14] MEDS: METOCLOPRAMIDE HCL INJ 5 MG/ML 2 ML VIAL IV SCH ×3 (07:32→20:41)
[2018-06-14] MEDS: THIAMINE HCL 100 MG TAB PO SCH (07:32)
[2018-06-14] MEDS: CARVEDILOL 3.125 MG TAB PO SCH ×2 (07:32→20:42)
[2018-06-14] MEDS: ENOXAPARIN INJ 40 MG/0.4 ML SYR SQ SCH (07:33)
[2018-06-14 07:36] LABS: Albumin Level 2.7 gm/dl (3.4-5.0); BUN Creatinine Ratio 5.3 (10-20); Bilirubin Direct 0.3 mg/dl (0-0.2); Calcium 8.8 mg/dl (8.5-10.1); Creatinine Clr Calc Pharmacy 92.7 ml/min; Est GFR (African American) 100.2; Est GFR (Non-African American) 86.4; Potassium 3.6 mmol/L (3.5-5.1)
[2018-06-14 07:39] LABS: Albumin Globulin Ratio 0.7 (0.9-2); Bilirubin,Total 0.9 mg/dl (0.1-1); Total Protein 6.7 gm/dl (6.4-8.2)
[2018-06-14] MEDS: chlordiazePOXIDE HCl 25 MG CAP PO SCH (07:48)
[2018-06-14] MEDS ORDERED: LISINOPRIL/HCTZ 20/25MG 1 TAB PO SCH (09:00)
[2018-06-14] MEDS ORDERED: BISACODYL 10 MG SUPP PR ONE (10:44)
[2018-06-14] MEDS ORDERED: METHYLNALTREXONE BROMIDE 12 MG/0.6 ML VIAL SQ ONE (10:45)
--- NOTE | 2018-06-14 11:51 | XRay Report ---
XR KUB CLINICAL HISTORY: abdominal distension, ? ileus COMPARISON STUDY: 05/23/2018 FINDINGS: There is mild gaseous distention of the bowel. The transverse colon measures 7.3 cm in diam eter, uncorrected for magnification.. The findings are statistically secondary to an ileus. IMPRESSION: Gaseous prominence of the bowel, likely secondary to an ileus. Transverse colon measures 7.3 cm in diameter. Electronically signed by: Erick Love M.D. 06/14/2018 11:50 AM
--- NOTE | 2018-06-14 12:58 | Gastroenterology Progress Note ---
Date of Service June 14, 2018 Assessment & Plan (1) Pancreatitis, alcoholic, acute: Pt is a 57 y/o male with acute pancreatitis, likely ETOH induced. Reports abd less painful and no more n/v today. He does have abd distension, passing little flatus, and having hypoactive bowel sounds. Last BM 4 days ago. Suspect having an ileus - Obtain KUB today; repeat in AM - Continue Reglan, will add Dulcolax 10mg OH x 1 dose, Relistor 12mg subQ x1 ( will repeat in 2 days if no BM). - Remain on clears. Decrease LR IVF rate to 150ml/hr, may reduce more to maintenance rate if continues to tolerate PO intake well. - He should have an EUS evaluation as outpt in 4-6 weeks. He had been either showing up late or no showed his previous appts. Relies on medical van for transportation. I spoke w him today and he said will attempt to make it to an afternoon appt if we can reschedule. We will ask our schedulers to contact him to make appt. - Symptomatic management otherwise. Attg add: I interviewed and exmained pt, reviewed chart and labs. Pt without abd pain today, without n/v, gloria clears and asking for more solid food. On exam , his abd is non tender ,but distended. A/P: EtoH panc - clinically improved. Wean fluids, adv diet once ileus resolved. Ileus - s/p relistor, will give dulcolax suppository, cont Reglan, ecnourage ambulation, replace lytes, attempt to wean narcs. If persistent, repeat dulcolax suppository and give Emycin 250 mg IV q 8 hour x 2 days. Will sign off, please call with questions. Subjective Pt having less abd pain, tolerating CL diet well w/o n/v. He is c/o mainly of having abd distension, passing little flatus, and last BM was 4 days ago Physical Exam 2 Vital Signs (Past 24 Hours): Last Vital Signs Temp 37.0 C 06/14/18 12:09 Pulse 114 H 06/14/18 12:09 Resp 18 06/14/18 12:09 BP 141/80 H 06/14/18 12:09 Pulse Ox 95 06/14/18 12:09 Constitutional: + obese, well groomed, cooperative and comfortable Eyes: PERRL, conjunctivae normal, anicteric sclerae ENMT: external ear and nose normal, oropharynx normal Respiratory: normal respiratory effort, lungs clear to auscultation Cardiovascular: RRR, no murmur, no edema Gastrointestinal (Abdomen): Inspection/Auscultation: + abdomen distended and + hypoactive bowel sounds Percussion/Palpation: + abdomen tender (RUQ area ) Skin: no rashes, warm and dry no jaundice Neurologic: Motor/Sensory: no asterixis Psychiatric: A+Ox3, euthymic affect Lymphatic: no lymphedema Results & Data Laboratory Results Laboratory Results - last 48 hr 06/12/18 06/12/18 06/12/18 16:18 16:18 16:40 WBC 4.77 L RBC 4.92 Hgb 14.3 Hct 41.6 L MCV 84.6 MCH 29.1 MCHC 34.4 RDW Std Deviation 46.1 RDW Coeff of Miguel 15.0 H Plt Count 217 MPV 8.7 Immature Gran % (Auto) 0.0 Neut % (Auto) 65.5 Lymph % (Auto) 20.3 Treasure % (Auto) 13.4 Eos % (Auto) 0.4 Baso % (Auto) 0.4 Immature Gran # (Auto) 0.00 Neut # (Auto) 3.12 Lymph # (Auto) 0.97 L Treasure # (Auto) 0.64 H Eos # (Auto) 0.02 Baso # (Auto) 0.02 PT INR Sodium 135 L Potassium 3.7 Chloride 99 Carbon Dioxide 23 Anion Gap 13.0 H BUN 14 Creatinine 0.94 Est Cr Clr Drug Dosing Not Reportable Est GFR ( Amer) 105.4 Est GFR (Non-Af Amer) 90.9 BUN/Creatinine Ratio 14.6 Glucose 122 H Estimat Average Glucose Hemoglobin A1c Calcium 9.0 Magnesium Total Bilirubin 0.8 Direct Bilirubin AST 68 H ALT 73 Alkaline Phosphatase 125 H Total Protein 8.4 H Albumin 3.9 Globulin 4.5 H Albumin/Globulin Ratio 0.9 Triglycerides Cholesterol LDL Cholesterol, Calc VLDL Cholesterol, Calc HDL Cholesterol Cholesterol/HDL Ratio Lipase 1235 H Folate Urine Color Yellow Urine Appearance Clear Urine pH 7.0 Ur Specific [place] 1.025 Urine Protein Trace H Urine Glucose (UA) Negative Urine Ketones Trace H Urine Blood Negative Urine Nitrite Negative Urine Bilirubin Negative Urine Urobilinogen Negative Ur Leukocyte Esterase Negative Urine WBC (Auto) 1-5 Urine RBC (Auto) 0-4 U Hyaline Cast (Auto) 0 U Epithel Cells (Auto) 5-10 H Urine Bacteria (Auto) Negative Hepatitis C Ab Screen 06/12/18 06/13/18 06/13/18 23:29 05:54 05:54 WBC 7.64 RBC 4.88 Hgb 14.1 Hct 42.1 MCV 86.3 MCH 28.9 MCHC 33.5 RDW Std Deviation 47.6 H RDW Coeff of Miguel 15.0 H Plt Count 219 MPV 8.8 Immature Gran % (Auto) 0.1 Neut % (Auto) 71.5 Lymph % (Auto) 12.4 Treasure % (Auto) 15.2 Eos % (Auto) 0.7 Baso % (Auto) 0.1 Immature Gran # (Auto) 0.01 Neut # (Auto) 5.46 Lymph # (Auto) 0.95 L Treasure # (Auto) 1.16 H Eos # (Auto) 0.05 Baso # (Auto) 0.01 PT INR Sodium 135 L Potassium 3.2 L Chloride 101 Carbon Dioxide 25 Anion Gap 9.0 BUN 9 D Creatinine 0.83 Est Cr Clr Drug Dosing 109.4 Est GFR ( Amer) 114.8 Est GFR (Non-Af Amer) 99.1 BUN/Creatinine Ratio 11.4 Glucose 121 H Estimat Average Glucose Hemoglobin A1c Calcium 8.5 Magnesium 2.2 Total Bilirubin 1.3 H D Direct Bilirubin AST 32 ALT 53 Alkaline Phosphatase 117 Total Protein 7.3 Albumin 3.1 L Globulin 4.2 H Albumin/Globulin Ratio 0.7 L Triglycerides 160 H Cholesterol 144 LDL Cholesterol, Calc 22 VLDL Cholesterol, Calc 32 HDL Cholesterol 90 Cholesterol/HDL Ratio 2 Lipase 2250 H Folate 16.53 Urine Color Urine Appearance Urine pH Ur Specific [place] Urine Protein Urine Glucose (UA) Urine Ketones Urine Blood Urine Nitrite Urine Bilirubin Urine Urobilinogen Ur Leukocyte Esterase Urine WBC (Auto) Urine RBC (Auto) U Hyaline Cast (Auto) U Epithel Cells (Auto) Urine Bacteria (Auto) Hepatitis C Ab Screen 06/13/18 06/13/18 06/13/18 05:54 05:54 05:54 WBC RBC Hgb Hct MCV MCH MCHC RDW Std Deviation RDW Coeff of Miguel Plt Count MPV Immature Gran % (Auto) Neut % (Auto) Lymph % (Auto) Treasure % (Auto) Eos % (Auto) Baso % (Auto) Immature Gran # (Auto) Neut # (Auto) Lymph # (Auto) Treasure # (Auto) Eos # (Auto) Baso # (Auto) PT 11.1 INR 1.1 Sodium Potassium Chloride Carbon Dioxide Anion Gap BUN Creatinine Est Cr Clr Drug Dosing Est GFR ( Amer) Est GFR (Non-Af Amer) BUN/Creatinine Ratio Glucose Estimat Average Glucose 131 Hemoglobin A1c 6.2 H Calcium Magnesium Total Bilirubin Direct Bilirubin AST ALT Alkaline Phosphatase Total Protein Albumin Globulin Albumin/Globulin Ratio Triglycerides Cholesterol LDL Cholesterol, Calc VLDL Cholesterol, Calc HDL Cholesterol Cholesterol/HDL Ratio Lipase Folate Urine Color Urine Appearance Urine pH Ur Specific [place] Urine Protein Urine Glucose (UA) Urine Ketones Urine Blood Urine Nitrite Urine Bilirubin Urine Urobilinogen Ur Leukocyte Esterase Urine WBC (Auto) Urine RBC (Auto) U Hyaline Cast (Auto) U Epithel Cells (Auto) Urine Bacteria (Auto) Hepatitis C Ab Screen Neg 06/14/18 06:13 WBC RBC Hgb Hct MCV MCH MCHC RDW Std Deviation RDW Coeff of Miguel Plt Count MPV Immature Gran % (Auto) Neut % (Auto) Lymph % (Auto) Treasure % (Auto) Eos % (Auto) Baso % (Auto) Immature Gran # (Auto) Neut # (Auto) Lymph # (Auto) Treasure # (Auto) Eos # (Auto) Baso # (Auto) PT INR Sodium 132 L Potassium 3.6 Chloride 93 L Carbon Dioxide 31 Anion Gap 8.0 BUN 5 L Creatinine 0.98 Est Cr Clr Drug Dosing 92.7 Est GFR ( Amer) 100.2 Est GFR (Non-Af Amer) 86.4 BUN/Creatinine Ratio 5.3 L Glucose 138 H Estimat Average Glucose Hemoglobin A1c Calcium 8.8 Magnesium Total Bilirubin 0.9 Direct Bilirubin 0.3 H AST 18 ALT 33 Alkaline Phosphatase 102 Total Protein 6.7 Albumin 2.7 L Globulin 4.0 Albumin/Globulin Ratio 0.7 L Triglycerides Cholesterol LDL Cholesterol, Calc VLDL Cholesterol, Calc HDL Cholesterol Cholesterol/HDL Ratio Lipase 763 H Folate Urine Color Urine Appearance Urine pH Ur Specific [place] Urine Protein Urine Glucose (UA) Urine Ketones Urine Blood Urine Nitrite Urine Bilirubin Urine Urobilinogen Ur Leukocyte Esterase Urine WBC (Auto) Urine RBC (Auto) U Hyaline Cast (Auto) U Epithel Cells (Auto) Urine Bacteria (Auto) Hepatitis C Ab Screen
[2018-06-14] MEDS ORDERED: HYDROmorphone INJ 1 MG/ML SYRINGE IV PRN (15:20)
--- NOTE | 2018-06-14 15:29 | Hospitalist Progress Note ---
Date of Service June 14, 2018 Assessment & Plan (1) Adynamic ileus: Developed abdominal distention, Complains of bloating sensation, denies of any pain, no nausea vomiting Not had any bowel movement, unable to pass gas GI evaluation appreciated, ordered for bowel regimen Added Relistor, IV Dilaudid discontinued Order for n.p.o. Increase activity as tolerated Repeat KUB in a.m. if symptom remains unchanged (2) Abdominal pain: This is a 57-year-old -[place] male with significant past medical history of HTN, HLD, alcohol abuse, tobacco abuse, history of recurrent pancreatitis, depression, history of traumatic right BKA who presents to [facility] secondary to abdominal pain times 1 day. Patient with history of recurrent alcoholic pancreatitis with current daily EtOH abuse. In ED patient's lipase was 1235, AST 68, alk phos 125, ALT 73, WBC 4.7, hemoglobin 14.3, hematocrit 41.6, platelet 251, BUN 14, creatinine 0.94. KUB was negative for bowel obstruction, chest x-ray negative for any acute abnormality. In ED he received IV fentanyl, IV Zofran as well as 1 L of IVF with minimal relief of symptoms. Patient is being admitted secondary to abdominal pain, elevated transaminitis, elevated lipase most likely in setting of acute pancreatitis. DDX but not limited to : Alcoholic pancreatitis, gall stone pancreatitis, PUD, necrotizing pancreatitis, cholecystitis, colitis -NPO, bowel rest -IV LR at 200cc/hr -consult GI-appreciate input Recommends continue bowel rest, acute treatment for pancreatitis, No GI procedure planned this admission -place on ETOH withdrawl protocol, most recent admission 12/05 developed DT with resp distress requiring intubation/[facility] [place] ventilation (3) Pancreatitis, alcoholic, acute: -Third admission with acute pancreatitis after alcohol drinking/abuse Patient is counseled multiple times Continue bowel rest, IV fluids, pain control (4) ETOH abuse: No sign of symptoms of active withdrawal -Patient with prior admission in November 2017 in which patient developed alcohol withdrawal, DT, acute respiratory distress requiring intubation with mechanical ventilation -AWSS scale, gabapentin taper, and will place on Librium 25 mg twice daily to help prevent DT -Encourage alcohol cessation -We will place on folic acid and thiamine replacement (5) HTN (hypertension): -Blood pressure improved after addition of as needed clonidine Continue lisinopril and Coreg (6) HLD (hyperlipidemia): -Previously on atorvastatin 20 mg daily, this was discontinued in lieu of recurrent pancreatitis (7) Phantom pain after amputation of lower extremity: -Home regimen of gabapentin 300 mg 3 times daily -Place gabapentin on hold, placed on gabapentin taper per AWSS protocol -Once gabapentin taper complete, resume home dose (8) Depression: -Previously had been on Prozac in the past, states he has not been taking this for some time (9) Tobacco abuse: -Encourage smoking cessation -Patient refusing nicotine patch (10) DVT prophylaxis: -lovenox 40mg SQ Q24hr Disposition: D/C to home when medically able with strict ETOH Cessation Follow up: PCP Dr. Oseguera upon discharge Subjective Abdominal distention, unable to pass any gas No nausea vomiting X-ray of KUB shows development of ileus Appreciate input from GI Recommends to limit narcotics, IV Dilaudid discontinued ordered for as needed Toradol The Relistor Patient is ordered to be n.p.o., encouraged to increase up to 50 as tolerated Physical Exam 2 Vital Signs (Past 24 Hours): Last Vital Signs Temp 37.0 C 06/14/18 14:54 Pulse 110 H 06/14/18 14:54 Resp 20 06/14/18 14:54 BP 148/93 H 06/14/18 14:54 Pulse Ox 96 06/14/18 14:54 Constitutional: WD/WN, vitals as above no acute distress Eyes: + anicteric sclerae ENMT: external ear and nose normal, oropharynx normal Neck: trachea midline, no thyromegaly Respiratory: normal respiratory effort, lungs clear to auscultation Cardiovascular: RRR, no murmur, no edema Gastrointestinal (Abdomen): Inspection/Auscultation: + abdomen distended Percussion/Palpation: + abdomen tender and abdomen soft; no guarding Musculoskeletal: no cyanosis or clubbing, extremities motor strength 5/5 Skin: no rashes, warm and dry Neurologic: PERRL, EOMI, accommodation nl, no face palsy, no dysarthria Psychiatric: A+Ox3, euthymic affect _ (1) Abdominal pain Abdominal location: unspecified location Qualified Code(s): R10.9 - Unspecified abdominal pain (2) Pancreatitis, alcoholic, acute Acute pancreatitis complication: no infection or necrosis Qualified Code(s): K85.20 - Alcohol induced acute pancreatitis without necrosis or infection (3) HTN (hypertension) Hypertension type: unspecified Qualified Code(s): I10 - Essential (primary) hypertension (4) HLD (hyperlipidemia) Hyperlipidemia type: unspecified Qualified Code(s): E78.5 - Hyperlipidemia, unspecified (5) Depression Depression Type: unspecified Qualified Code(s): F32.9 - Major depressive disorder, single episode, unspecified
[2018-06-14] MEDS: KETOROLAC TROMETHAMINE 15 MG/ML VIAL IV PRN ×2 (16:41→23:26)
[2018-06-14] MEDS: POLYETHYLENE (MIRALAX) 17 GM PACK PO SCH (16:48)
[2018-06-14 23:06] VITALS: O2SAT 95
[2018-06-15] MEDS: GABAPENTIN 600 MG TAB PO SCH ×2 (00:45→11:34)
[2018-06-15] MEDS: LACTATED RINGER'S 1,000 ML IV SCH ×3 (01:38→11:33)
[2018-06-15] MEDS: KETOROLAC TROMETHAMINE 15 MG/ML VIAL IV PRN ×2 (05:17→11:32)
[2018-06-15 07:01] VITALS: TEMP 99
[2018-06-15 08:19] LABS: Albumin Globulin Ratio 0.6 (0.9-2); Albumin Level 2.3 gm/dl (3.4-5.0); BUN Creatinine Ratio 10.8 (10-20); Bilirubin Direct 0.4 mg/dl (0-0.2); Calcium 8.5 mg/dl (8.5-10.1); Creatinine Clr Calc Pharmacy 126.2 ml/min; Est GFR (African American) 121.7; Globulin 3.8 gm/dl (2.5-4.0); Total Protein 6.1 gm/dl (6.4-8.2)
[2018-06-15] MEDS: ENOXAPARIN INJ 40 MG/0.4 ML SYR SQ SCH (08:28)
[2018-06-15] MEDS: METOCLOPRAMIDE HCL INJ 5 MG/ML 2 ML VIAL IV SCH ×2 (08:28→12:55)
[2018-06-15] MEDS: THIAMINE HCL 100 MG TAB PO SCH (08:29)
[2018-06-15] MEDS: CARVEDILOL 3.125 MG TAB PO SCH (08:29)
[2018-06-15] MEDS: PANTOprazole 40 MG TAB PO SCH (08:30)
[2018-06-15] MEDS: FOLIC ACID 1 MG TAB PO SCH (08:31)
[2018-06-15] MEDS: POLYETHYLENE (MIRALAX) 17 GM PACK PO SCH (08:32)
--- NOTE | 2018-06-15 09:37 | XRay Report ---
XR KUB CLINICAL HISTORY: abdominal pain . COMPARISON STUDY: 06/14/2018 FINDINGS: There is mild gaseous prominence of large and small bowel loops. There are no transition zo elena indicate bowel obstruction. The transverse colon is less dilated than on the prior study, current ly measuring 70 mm in maximal diameter. IMPRESSION: Improving ileus pattern.r Electronically signed by: Erick Love M.D. 06/15/2018 9:36 AM
[2018-06-15] MEDS ORDERED: POTASSIUM CHLORIDE 20 MEQ TABCR PO STA (13:19)
[2018-06-15] MEDS ORDERED: POTASSIUM CHLORIDE / WTR 10 MEQ/100 ML PLCT IV SCH (13:19)
--- NOTE | 2018-06-15 13:40 | Hospitalist Progress Note ---
Date of Service June 15, 2018 Assessment & Plan (1) Adynamic ileus: Developed abdominal distention, without abdominal pain or N/V and had constipation Dilaudid was discontinued and Pt was given Relistor and dulcolax once 06/14/18 Today KUB XRAY: Improving ileus pattern Today passing gas and had BM (2) Abdominal pain: (3) Pancreatitis, alcoholic, acute: Third admission with acute pancreatitis after alcohol drinking/abuse Pt recent binge drinking. Admitted on 06/12/18 with lipase: 1235, AST: 68, ALT: 73, Alk Phos: 125. WBC: 4.7. Initially treated with bowel rest, NPO, LR at 200ml/hr Today Lipase: 333, AST: 13, ALT: 23, Alk Phos: 94 Today no abdominal discomfort, no N/V Pt tolerated clear liquids for lunch Will decrease LR to 100ml/hr and plan to d/c when pt tolerating diet Progress to low fat diet for dinner GI consulted No planned GI procedure during this admission Recommended out patient EUS evaluation in 4-6 weeks. GI schedulers to contact patient to make appt. (4) ETOH abuse: Hx ETOH withdrawal and DT, acute respiratory distress requiring intubation and mechanical ventilation during admission in 11/2017 No sign of symptoms of active withdrawal during this admission Gabapentin taper, Librium 25mg BID Thorough encouraged alcohol cessation Continue folic acid and thiamine replacement (5) Hypokalemia: K: 3.0 Replace and monitor (6) HTN (hypertension): Stable No need for prn clonidine since 06/13 Continue lisinopril and Coreg (7) HLD (hyperlipidemia): Atorvastatin on hold with current pancreatitis, LFT elevation (8) Phantom pain after amputation of lower extremity: Home regimen of gabapentin 300 mg 3 times daily Pt currently on gabapentin taper alcohol withdrawal protocol Plan to resume home dose of gabapentin when finished with alcohol taper tomorrow (9) Depression: Pt not currently on medications (10) Tobacco abuse: Smoking cessation discussed Patient refusing nicotine patch while in hospital (11) DVT prophylaxis: Lovenox 40mg SQ Q24hr Disposition: D/C to home when medically able with strict ETOH Cessation. If pt tolerates advanced consider d/c today or tomorrow Follow up: PCP Dr. Oseguera upon discharge Supervising Physician Co-Signing Physician Notes ATTENDING ADDENDUM : no complain of abdominal pain had bowel movement this AM KUB shows improvement of illeus diet advanced to full liquid , tolerating well BP remains stable advanced to Low fat stable to be discharged home today pt is counselled for complete abstinence from Alchohol , verbalizes understanding counselled for the importance of taking meds as prescribed , specially the Blood pressure meds Bel Vu MD Subjective F/U pancreatitis Pt reports feeling good today. No nausea or vomiting. no abdominal pain. Had BM this afternoon and is passing gas and no further abdominal distension. Tolerated clear liquids for lunch and reports is feeling hungry. Pt anxious to go home. Denies fever/chills, CP, SOB, dizziness, OKEEFE. Physical Exam 2 Vital Signs (Past 24 Hours): Last Vital Signs Temp 37.2 C 06/15/18 08:21 Pulse 110 H 06/15/18 08:21 Resp 16 06/15/18 08:21 BP 151/85 H 06/15/18 08:21 Pulse Ox 95 06/15/18 08:21 Physical Exam: General: no distress, WDWN Head: normocephalic, atraumatic Eyes: conjunctiva non-injected, anicteric ENT: normal inspection external ears, nose, mucous membranes moist Neck: supple, trachea midline Lungs: clear, no respiratory distress CV: RRR, no murmur, no pretibial edema Abd: normal BS, soft, non-tender Ext: no cyanosis, no calf tenderness Neuro: A&O x 3, no focal deficits noted, normal affect Skin: warm, dry Results & Data Laboratory Results Short CBC 06/12/18 06/13/18 06/14/18 Range/Units 16:18 05:54 06:13 Potassium 3.7 3.2 L 3.6 (3.5-5.1) mmol/L 06/15/18 Range/Units 07:23 Potassium 3.0 L D (3.5-5.1) mmol/L BMP 06/15/18 07:23 Sodium 133 L Potassium 3.0 L D Chloride 95 L Carbon Dioxide 26 BUN 8 Creatinine 0.72 Glucose 86 Calcium 8.5 Liver Function 06/15/18 Range/Units 07:23 Total Bilirubin 1.0 (0.1-1) mg/dl Direct Bilirubin 0.4 H (0-0.2) mg/dl AST 13 L (15-37) U/L ALT 23 (12-78) U/L Alkaline Phosphatase 94 (45-117) U/L Albumin 2.3 L (3.4-5.0) gm/dl Diagnostic Findings KUB XRAY: IMPRESSION: Improving ileus pattern _ (1) Depression Active/Remission status: Depression Type: unspecified Major depression episode severity: Major depression recurrence: Psychotic features: Trimester: Qualified Code(s): F32.9 - Major depressive disorder, single episode, unspecified (2) HLD (hyperlipidemia) Hyperlipidemia type: unspecified Qualified Code(s): E78.5 - Hyperlipidemia, unspecified (3) Pancreatitis, alcoholic, acute Acute pancreatitis complication: no infection or necrosis Qualified Code(s): K85.20 - Alcohol induced acute pancreatitis without necrosis or infection (4) Abdominal pain Abdominal location: unspecified location Qualified Code(s): R10.9 - Unspecified abdominal pain (5) HTN (hypertension) Hypertension type: unspecified Qualified Code(s): I10 - Essential (primary) hypertension
[2018-06-15] MEDS ORDERED: POTASSIUM CHLORIDE 20 MEQ TABCR PO ONE (14:45)
[2018-06-15 14:57] VITALS: BP 148/97; PULSE 79
--- NOTE | 2018-06-15 15:12 | Discharge Summary ---
Date of Service June 15, 2018 Admission HPI Per Admitting Provider This is a 57-year-old -[place] male with significant past medical history of HTN, HLD, alcohol abuse, tobacco abuse, history of recurrent pancreatitis, depression, history of traumatic right BKA who presents to [facility] secondary to abdominal pain times 1 day. Pain is located in epigastrium and periumbilical region, radiates to left upper quadrant , constant, rated as 20/10, food/liquid makes symptoms worse, nothing improves symptoms, has history of pancreatitis in past. States "I am never drinking again." Saturday 06/09 patient drank half a gallon of eggnog, fifth of vodka and 12 beers. He drinks daily approximately 12 beers a day and occasional fits of vodka. Further he has tobacco abuse at half a pack a day for approximately 40 years. Abdominal pain is associated with nausea, yellow/gomez emesis. Overall poor appetite and inability to tolerate oral intake times 2 days. Denies fever , chills, sweats, lightheadedness, dizziness, chest pain, palpitations, shortness of breath, VILLEDA, hematemesis, melena, hematochezia, hemoptysis, diarrhea, dysuria, increased urgency or frequency with urination, hematuria. He ambulates with a cane and recently got a new right BKA prosthetic. Admission Exam Per Admitting Provider Gen: WD/WN, M, in acute pain, lying in bed, poor hygiene, pleasant, conversing easily Head: Normocephalic, Atraumatic Eyes: Sclera normal, no conjunctival injection, PERRLA, EOMI ENT: Gross hearing intact, normal pharynx, mucous membranes moist, poor dentition Neck: supple, no adenopathy, No JVD, no bruit, Resp: Clear to auscultation b/l, no wheeze, rales, rhonchi. 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 Extremities: No edema bilaterally, R BKA with compression dressing in place Skin: warm, moist, no rash, negative turgor, cap refill < 2sec Neuro: Alert and oriented x 3, speech normal, good mood/affect, cran nerve 2-12 intact grossly : deferred Principal Diagnosis Pancreatitis Discharge Exam General: no distress, WDWN Head: normocephalic, atraumatic Eyes: conjunctiva non-injected, anicteric ENT: normal inspection external ears, nose, mucous membranes moist Neck: supple, trachea midline Lungs: clear, no respiratory distress CV: RRR, no murmur, no pretibial edema Abd: normal BS, soft, non-tender Ext: no cyanosis, no calf tenderness Neuro: A&O x 3, no focal deficits noted, normal affect Skin: warm, dry Discharge Data Allergies Allergy/AdvReac Type Severity Reaction Status Date / Time No Known Allergies Allergy Verified 06/12/18 16:17 Consultations Consult Gastroenterology (1) Pancreatitis, alcoholic, acute: Pt is a 57 y/o male with acute pancreatitis, likely ETOH induced. Reports abd less painful and no more n/v today. He does have abd distension, passing little flatus, and having hypoactive bowel sounds. Last BM 4 days ago. Suspect having an ileus - Obtain KUB today; repeat in AM - Continue Reglan, will add Dulcolax 10mg MO x 1 dose, Relistor 12mg subQ x1 ( will repeat in 2 days if no BM). - Remain on clears. Decrease LR IVF rate to 150ml/hr, may reduce more to maintenance rate if continues to tolerate PO intake well. - He should have an EUS evaluation as outpt in 4-6 weeks. He had been either showing up late or no showed his previous appts. Relies on medical van for transportation. I spoke w him today and he said will attempt to make it to an afternoon appt if we can reschedule. We will ask our schedulers to contact him to make appt. - Symptomatic management otherwise. Ordered Studies 06/12/18 19:07 CT abd pelvis IV con only Stat Total Time Total Time Spent Total Time Spent (In Minutes): 40 MINS Discharge Plan Discharge Items Patient Disposition: Home - Self-Care Reason For Visit: ACUTE PANCREATITIS Discharge Diagnosis: ACUTE PANCREATITIS Discharge Goals: Decrease discomfort, Diagnostic testing and Therapeutic intervention Activity: Resume your previous activity Non-emergency contact: Primary Care Provider Call non-emergency contact if: you have any medication questions Follow-up/Referrals: Liyah Oseguera MD [Primary Care Provider] - 06/16/18 9:45 am Diet: Low Fat Addtl Provider Instructions: NEED TO QUIT DRINKING ETOH/COMPLETE ABSTINENCE TO PREVENT RECURRENT PANCREATITIS /PARMANENT LIVER DAMANGE PLEASE TAKE BLOOD PRESSURE MEDICATIONS DIRECTED Prescriptions: New clonidine HCl 0.1 mg Tablet 0.1 mg PO Q12 30 Days Qty: 60 RF: 0 thiamine HCl (vitamin B1) [Vitamin B-1] 100 mg Tablet 100 mg PO QAM 30 Days Qty: 30 RF: 0 folic acid 1 mg Tablet 1 mg PO QAM 30 Days Qty: 30 RF: 0 lisinopril 10 mg tablet 10 mg PO DAILY Qty: 30 RF: 3 tramadol 50 mg tablet 50 mg PO Q6H PRN (Reason: pain) Qty: 6 RF: 0 Continue omeprazole 40 mg Capsule,Delayed Release(Dr/Ec) 40 mg PO QAM RF: 0 ranitidine HCl 150 mg Tablet 150 mg PO QAM RF: 0 gabapentin [Neurontin] 100 mg Capsule 300 mg PO TID RF: 0 carvedilol 3.125 mg Tablet 3.125 mg PO DAILY 30 Days Qty: 60 RF: 3 Discontinued lisinopril 5 mg Tablet 5 mg PO QAM RF: 0 Visit Report Forms: My [facility] Stand-Alone Forms: My [facility], Opioid Pain Management Discharge Orders: Discharge Order (Routine); Ordered 06/15/18 Ordered By: Bel Vu Admission Data Admit Date/Time: 06/12/18 18:56 Attending Provider: Bel Vu Admit Provider: Ginette Short Primary Care Provider: Liyah Oseguera Other Providers: Ginette Short ; Heber Yang Service: Surgical Services Other Interventions: Discharge Summary Assessment (RN) Last Done: 06/15/18 14:56
--- NOTE | 2018-06-15 15:21 | Discharge Summary ---
Date of Service June 15, 2018 Admission HPI Per Admitting Provider This is a 57-year-old -[place] male with significant past medical history of HTN, HLD, alcohol abuse, tobacco abuse, history of recurrent pancreatitis, depression, history of traumatic right BKA who presents to [facility] secondary to abdominal pain times 1 day. Pain is located in epigastrium and periumbilical region, radiates to left upper quadrant , constant, rated as 20/10, food/liquid makes symptoms worse, nothing improves symptoms, has history of pancreatitis in past. States "I am never drinking again." Saturday 06/09 patient drank half a gallon of eggnog, fifth of vodka and 12 beers. He drinks daily approximately 12 beers a day and occasional fits of vodka. Further he has tobacco abuse at half a pack a day for approximately 40 years. Abdominal pain is associated with nausea, yellow/gomez emesis. Overall poor appetite and inability to tolerate oral intake times 2 days. Denies fever , chills, sweats, lightheadedness, dizziness, chest pain, palpitations, shortness of breath, VILLEDA, hematemesis, melena, hematochezia, hemoptysis, diarrhea, dysuria, increased urgency or frequency with urination, hematuria. He ambulates with a cane and recently got a new right BKA prosthetic. Discharge Data Allergies Allergy/AdvReac Type Severity Reaction Status Date / Time No Known Allergies Allergy Verified 06/12/18 16:17 Consultations 06/12/18 18:19 ED Decision to Admit Stat 06/12/18 20:23 Consult Gastroenterology Routine 06/12/18 23:32 Consult Case Management - Discharge Planning Routine Ordered Studies 06/12/18 19:07 CT abd pelvis IV con only Stat Hospital Course (1) Adynamic ileus: Developed abdominal distention, without abdominal pain or N/V and had constipation Dilaudid was discontinued and Pt was given Relistor and dulcolax once 06/14/18 Today KUB XRAY: Improving ileus pattern Today passing gas and had BM (2) Abdominal pain: This is a 57-year-old -[place] male with significant past medical history of HTN, HLD, alcohol abuse, tobacco abuse, history of recurrent pancreatitis, depression, history of traumatic right BKA who presents to [facility] secondary to abdominal pain times 1 day. Patient with history of recurrent alcoholic pancreatitis with current daily EtOH abuse. In ED patient's lipase was 1235, AST 68, alk phos 125, ALT 73, WBC 4.7, hemoglobin 14.3, hematocrit 41.6, platelet 251, BUN 14, creatinine 0.94. KUB was negative for bowel obstruction, chest x-ray negative for any acute abnormality. In ED he received IV fentanyl, IV Zofran as well as 1 L of IVF with minimal relief of symptoms. Patient is being admitted secondary to abdominal pain, elevated transaminitis, elevated lipase most likely in setting of acute pancreatitis. DDX but not limited to : Alcoholic pancreatitis, gall stone pancreatitis, PUD, necrotizing pancreatitis, cholecystitis, colitis -NPO, bowel rest -IV LR at 200cc/hr -consult GI-appreciate input Recommends continue bowel rest, acute treatment for pancreatitis, No GI procedure planned this admission -place on ETOH withdrawl protocol, most recent admission 12/05 developed DT with resp distress requiring intubation/mech ventilation (3) Pancreatitis, alcoholic, acute: Third admission with acute pancreatitis after alcohol drinking/abuse Pt recent binge drinking. Admitted on 06/12/18 with lipase: 1235, AST: 68, ALT: 73, Alk Phos: 125. WBC: 4.7. Initially treated with bowel rest, NPO, LR at 200ml/hr Today Lipase: 333, AST: 13, ALT: 23, Alk Phos: 94 Today no abdominal discomfort, no N/V Pt tolerated clear liquids for lunch Will decrease LR to 100ml/hr and plan to d/c when pt tolerating diet Progress to low fat diet for dinner GI consulted No planned GI procedure during this admission Recommended out patient EUS evaluation in 4-6 weeks. GI schedulers to contact patient to make appt. (4) ETOH abuse: Hx ETOH withdrawal and DT, acute respiratory distress requiring intubation and mechanical ventilation during admission in 11/2017 No sign of symptoms of active withdrawal during this admission Gabapentin taper, Librium 25mg BID Thorough encouraged alcohol cessation Continue folic acid and thiamine replacement (5) Hypokalemia: K: 3.0 Replace and monitor (6) HTN (hypertension): Stable No need for prn clonidine since 06/13 Continue lisinopril and Coreg (7) HLD (hyperlipidemia): Atorvastatin on hold with current pancreatitis, LFT elevation (8) Phantom pain after amputation of lower extremity: Home regimen of gabapentin 300 mg 3 times daily Pt currently on gabapentin taper alcohol withdrawal protocol Plan to resume home dose of gabapentin when finished with alcohol taper tomorrow (9) Depression: Pt not currently on medications (10) Tobacco abuse: Smoking cessation discussed Patient refusing nicotine patch while in hospital (11) DVT prophylaxis: Lovenox 40mg SQ Q24hr Disposition: D/C to home when medically able with strict ETOH Cessation. If pt tolerates advanced consider d/c today or tomorrow Follow up: PCP Dr. Oseguera upon discharge Discharge Plan Discharge Items Patient Disposition: Home - Self-Care Reason For Visit: ACUTE PANCREATITIS Discharge Diagnosis: ACUTE PANCREATITIS Discharge Goals: Decrease discomfort, Diagnostic testing and Therapeutic intervention Activity: Resume your previous activity Non-emergency contact: Primary Care Provider Call non-emergency contact if: you have any medication questions Follow-up/Referrals: Liyah Oseguera MD [Primary Care Provider] - 06/16/18 9:45 am Diet: Low Fat Addtl Provider Instructions: NEED TO QUIT DRINKING ETOH/COMPLETE ABSTINENCE TO PREVENT RECURRENT PANCREATITIS /PARMANENT LIVER DAMANGE PLEASE TAKE BLOOD PRESSURE MEDICATIONS DIRECTED Prescriptions: New clonidine HCl 0.1 mg Tablet 0.1 mg PO Q12 30 Days Qty: 60 RF: 0 thiamine HCl (vitamin B1) [Vitamin B-1] 100 mg Tablet 100 mg PO QAM 30 Days Qty: 30 RF: 0 folic acid 1 mg Tablet 1 mg PO QAM 30 Days Qty: 30 RF: 0 lisinopril 10 mg tablet 10 mg PO DAILY Qty: 30 RF: 3 tramadol 50 mg tablet 50 mg PO Q6H PRN (Reason: pain) Qty: 6 RF: 0 Continue omeprazole 40 mg Capsule,Delayed Release(Dr/Ec) 40 mg PO QAM RF: 0 ranitidine HCl 150 mg Tablet 150 mg PO QAM RF: 0 gabapentin [Neurontin] 100 mg Capsule 300 mg PO TID RF: 0 carvedilol 3.125 mg Tablet 3.125 mg PO DAILY 30 Days Qty: 60 RF: 3 Discontinued lisinopril 5 mg Tablet 5 mg PO QAM RF: 0 Visit Report Forms: My [facility] [employer] Portal Stand-Alone Forms: [facility], Opioid Pain Management Discharge Orders: Discharge Order (Routine); Ordered 06/15/18 Ordered By: Bel Vu Admission Data Admit Date/Time: 06/12/18 18:56 Attending Provider: Bel Vu Admit Provider: Ginette Short Primary Care Provider: Liyah Oseguera Other Providers: Ginette Short ; Heber Yang Service: Surgical Services Other Interventions: Discharge Summary Assessment (RN) Last Done: 06/15/18 14:56
[2018-06-16] MEDS ORDERED: GABAPENTIN 600 MG TAB PO SCH (12:00)
== END 2018-06-15 15:34 | disposition home or self-care (01) | DRG 439 ==
LOC: ED 15:47 → SUATTDRO 18:56 → 3N 18:56
DX: F10.10 Alcohol abuse, uncomplicated; F17.210 Nicotine dependence, cigarettes, uncomplicated; E78.5 Hyperlipidemia, unspecified; K85.20 Alcohol induced acute pancreatitis without necrosis or infection; K56.0 Paralytic ileus; Z79.899 Other long term (current) drug therapy; G54.6 Phantom limb syndrome with pain; Z91.128 Patient's intentional underdosing of medication regimen for other reason; E87.6 Hypokalemia; Z89.511 Acquired absence of right leg below knee; I10 Essential (primary) hypertension; Z80.0 Family history of malignant neoplasm of digestive organs; T46.4X6A Underdosing of angiotensin-converting-enzyme inhibitors, initial encounter

== ENCOUNTER 2018-07-03 18:35 | Inpatient (IN) | END 2018-07-08 12:01 | disposition alcohol treatment (31) | LOC: ED 18:35 → 2S 23:37 → SUATTDRO 23:37 → 2S 07-04 00:06 → 4W 07-06 15:20 ==

== ENCOUNTER 2018-09-30 11:14 | Inpatient (IN) ==
[2018-09-30] MEDS ORDERED: SODIUM CHLORIDE 0.9% 1000ML 1,000 ML IV ONE ×2 (11:31→12:46)
[2018-09-30] MEDS ORDERED: ONDANSETRON INJ 2 MG/ML 2 ML VIAL IV STA (11:31)
--- NOTE | 2018-09-30 11:41 | Emergency Department Note ---
History of Present Illness General Chief complaint: Vomiting Stated complaint: VOMITING AFTER EATING Time Seen by Provider: 09/30/18 11:21 History of Present Illness Maximum Pain Intensity: 9 This patient is a 58-year-old male with a history of alcoholism and drug abuse who presents emergency department complaining of nausea, vomiting and diarrhea for the last week. He says that every time she eats he vomits. He denies any hematemesis or coffee-ground emesis. No black or bloody stools. No fever. He denies any significant abdominal pain. He has not tried anything [id number] er for his symptoms. He admits that he has not been taking his medications for the last 2 days. His last alcoholic beverage was approximately 1 week ago. He denies any shakiness. Home Medications Home Medications Medication Instructions Recorded Confirmed Type gabapentin [Neurontin] 300 mg PO TID 02/21/18 09/30/18 History omeprazole 40 mg PO QAM 02/21/18 09/30/18 History ranitidine HCl 150 mg PO QAM 02/21/18 09/30/18 History albuterol sulfate [Proventil HFA] 2 puff INHALATION Q4H PRN 07/03/18 09/30/18 History atorvastatin 20 mg PO DAILY 07/03/18 09/30/18 History fluoxetine 10 mg PO DAILY 07/03/18 09/30/18 History polyethylene glycol 3350 17 g PO DAILY PRN 07/03/18 09/30/18 History sennosides-docusate sodium [Senna 2 tab PO DAILY PRN 07/03/18 09/30/18 History with Docusate Sodium] carvedilol 3.125 mg PO BID 30 Days #60 tab 07/08/18 09/30/18 Rx lisinopril 20 mg PO DAILY 09/30/18 09/30/18 History thiamine HCl (vitamin B1) [Vitamin 0 tab PO DAILY 09/30/18 09/30/18 History B-1] folic acid 1 mg PO QAM 30 Days #30 tab 10/01/18 Rx multivitamin [Daily-Elise] 1 tab PO QAM 30 Days #30 tab 10/01/18 Rx thiamine HCl (vitamin B1) [Vitamin 100 mg PO QAM 20 Days #20 tab 10/01/18 Rx B-1] Allergies Allergy/AdvReac Type Severity Reaction Status Date / Time No Known Allergies Allergy Verified 09/30/18 13:12 Past Med/Surg History Medical History Depression (Chronic) 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 GERD (gastroesophageal reflux disease) Hx of hematuria Hx of pancreatitis Obesity Surgical History Hx of right BKA (Chronic) 2013 s/p fracture of tibia/fibula with associated infection Complete below knee amputation of right lower extremity History of mandibular surgery BROKEN [facility]AW 1978 History of tooth extraction ALL TEETH REMOVED Family History Sister Family history of diabetes mellitus Brother Pancreatic carcinoma Social History Preferred Language: Cymro Beliefs That Will Affect Care: None marital status: Single Current Living Situation: Family Current Living Situation Comment: sister and brother Other Information That Helps Us Care for You: No Feels Safe at Home: Yes Safety Concerns: Feels Safe At This Time Smoking Status: Current some day smoker Hx Alcohol Use: Yes Hx Substance Use: Yes Review of Systems A total of 10 systems reviewed and were otherwise negative Physical Exam Vital Signs Vital Signs - 24 hr 09/30/18 23:32 10/01/18 04:05 10/01/18 07:05 Temperature 37.0 C 36.5 C 37.1 C Temperature Source Oral Oral Oral Pulse Rate Pulse Rate [Finger] 93 H 89 90 Pulse Rate [Right Brachial] Respiratory Rate 18 18 18 Blood Pressure [Left Arm] 170/99 H 169/108 H Blood Pressure [Right Arm] 151/93 H Blood Pressure Mean [Left Arm] 122 128 Blood Pressure Mean [Right Arm] 112 Blood Pressure Position [Left Arm] Lying Lying Blood Pressure Position [Right Arm] Lying Pulse Oximetry 99 98 100 Oxygen Delivery Method Room Air Room Air Room Air 10/01/18 11:05 10/01/18 12:00 10/01/18 14:43 Temperature 36.8 C 36.8 C Temperature Source Oral Pulse Rate 102 H Pulse Rate [Finger] Pulse Rate [Right Brachial] 94 H 94 H Respiratory Rate 20 20 Blood Pressure [Left Arm] Blood Pressure [Right Arm] 134/83 134/83 Blood Pressure Mean [Left Arm] Blood Pressure Mean [Right Arm] 100 Blood Pressure Position [Left Arm] Blood Pressure Position [Right Arm] Sitting Pulse Oximetry 96 96 Oxygen Delivery Method Room Air 10/01/18 15:42 Temperature 36.8 C Temperature Source Pulse Rate Pulse Rate [Finger] Pulse Rate [Right Brachial] 94 H Respiratory Rate 20 Blood Pressure [Left Arm] Blood Pressure [Right Arm] 134/83 Blood Pressure Mean [Left Arm] Blood Pressure Mean [Right Arm] Blood Pressure Position [Left Arm] Blood Pressure Position [Right Arm] Pulse Oximetry 96 Oxygen Delivery Method Constitutional WD/WN, vitals as above Eyes EOM intact bilaterally ENMT external ear and nose normal, oropharynx normal Neck trachea midline Respiratory normal respiratory effort, lungs clear to auscultation Cardiovascular RRR, no murmur, no edema Gastrointestinal (Abdomen) Mild tenderness to palpation noted in the epigastric and right upper quadrant. No guarding or rebound tenderness. Bowel sounds present in all 4 quadrants. Musculoskeletal no cyanosis or clubbing, extremities motor strength 5/5 Skin no rashes, warm and dry Neurologic Alert and oriented x3. No focal motor deficits. Psychiatric Acting appropriately Course Patient was seen and examined Vital signs including blood pressure were reviewed medications list was verified with patient Labs were obtained, and a saline lock was established Zofran 4 mg IV and 1 L normal saline bolus ordered Imaging was performed and reviewed The patient was reassessed and pretty much feeling the same. We discussed his workup. He voiced understanding. He was ordered another liter of normal saline. The patient began complaining of abdominal pain. The patient was ordered 1 dose of morphine 4 mg IV. At that time, a CT of the abdomen and pelvis was also ordered. The case was discussed with the case planner and subsequently the hospitalist service. They kindly agreed to evaluate the patient for possible inpatient management. The patient was in agreement. Consultations Consultation #1: Angelita Taylor PA-C Administered Medications Discontinued Medications Atorvastatin Calcium (Lipitor) 20 mg PO DAILY [facility]ONEY Stop: 10/31/18 08:59 Last Admin: 10/01/18 08:52 Dose: 20 mg Documented by: [id number] Carvedilol (Coreg) 3.125 mg PO BID [facility] Stop: 10/30/18 20:59 Last Admin: 10/01/18 08:51 Dose: 3.125 mg Documented by: [id number] Admin: 09/30/18 20:14 Dose: 3.125 mg Documented by: [id number] Fluoxetine HCl (Prozac) 10 mg PO DAILY [facility] Stop: 10/31/18 08:59 Last Admin: 10/01/18 08:52 Dose: 10 mg Documented by: [id number] Folic Acid (Folvite) 1 mg PO QAM [facility]ONEY Stop: 10/31/18 08:59 Last Admin: 10/01/18 08:52 Dose: 1 mg Documented by: [id number] Gabapentin (Neurontin) 1,200 mg PO TODAY@1600 [facility] Stop: 09/30/18 16:01 Last Admin: 09/30/18 16:48 Dose: 1,200 mg Documented by: [id number] Gabapentin (Neurontin) 600 mg PO Q24H [facility] Stop: 10/04/18 06:01 Last Admin: 10/01/18 03:32 Dose: 600 mg Documented by: [id number] Gabapentin (Neurontin) 600 mg PO Q8H [facility] Stop: 10/02/18 06:01 Last Admin: 10/01/18 13:47 Dose: 600 mg Documented by: [id number] Gabapentin (Neurontin) 600 mg PO Q6H [facility] Stop: 10/01/18 04:01 Last Admin: 10/01/18 03:32 Dose: 600 mg Documented by: [id number] Admin: 09/30/18 21:38 Dose: 600 mg Documented by: [id number] Sodium Chloride (Nss 1000ml) 1,000 mls @ 999 mls/hr IV .Q1H1M ONE Stop: 09/30/18 12:31 Last Infusion: 09/30/18 13:03 Dose: 0 mls/hr Documented by: [id number] Admin: 09/30/18 12:02 Dose: 999 mls/hr Documented by: [id number] Sodium Chloride (Nss 1000ml) 1,000 mls @ 999 mls/hr IV .Q1H1M ONE Stop: 09/30/18 13:46 Last Infusion: 09/30/18 14:16 Dose: 0 mls/hr Documented by: [id number] Admin: 09/30/18 13:03 Dose: 999 mls/hr Documented by: [id number] Multivitamins 10 ml/ Thiamine HCl 100 mg/ Folic Acid 1 mg/Sodium Chloride 1,011.2 mls @ 500 mls/hr IV .Q2H2M [facility] Stop: 09/30/18 17:01 Last Infusion: 09/30/18 19:47 Dose: 0 mls/hr Documented by: [id number] Admin: 09/30/18 17:45 Dose: 500 mls/hr Documented by: [id number] Sodium Chloride (Nss 1000ml) 1,000 mls @ 100 mls/hr IV .Q10H [facility] Stop: 10/30/18 15:40 Last Admin: 10/01/18 06:16 Dose: 100 mls/hr Documented by: [id number] Infusion: 10/01/18 06:14 Dose: 0 mls/hr Documented by: [id number] Admin: 09/30/18 20:13 Dose: 100 mls/hr Documented by: [id number] Ioversol (Optiray 320 100ml) 93 ml IV ONCE PRN PRN Reason: Interaction Checking Stop: 10/04/18 15:19 Last Admin: 09/30/18 15:20 Dose: 93 ml Documented by: [id number] Lisinopril (Zestril) 20 mg PO DAILY [facility] Stop: 10/31/18 08:59 Last Admin: 10/01/18 08:51 Dose: 20 mg Documented by: [id number] Miscellaneous (Remove Nicoderm Patch) 1 ea N/A HS [facility]ONE[facility] Stop: 10/30/18 22:59 Last Admin: 09/30/18 22:46 Dose: Not Given Documented by: [id number] Morphine Sulfate (Morphine Sulfate) 4 mg IV NOW STA Stop: 09/30/18 13:02 Last Admin: 09/30/18 13:12 Dose: 4 mg Documented by: [id number] Multivitamins (Multivitamin Tab) 1 tab PO QAM [facility]ONE[facility] Stop: 10/31/18 08:59 Last Admin: 10/01/18 08:52 Dose: 1 tab Documented by: [id number] Nicotine (Nicoderm Cq) 14 mg TD QAM [facility]ONE[facility] Stop: 10/30/18 17:29 Last Admin: 10/01/18 08:52 Dose: Not Given Documented by: [id number] Admin: 09/30/18 17:45 Dose: Not Given Documented by: [id number] Ondansetron HCl (Zofran) 4 mg IV NOW STA Stop: 09/30/18 11:32 Last Admin: 09/30/18 12:02 Dose: 4 mg Documented by: [id number] Oxycodone HCl (Roxicodone Immediate Rel) 5 mg PO Q4H PRN PRN Reason: Severe Pain Stop: 10/14/18 17:20 Last Admin: 10/01/18 04:39 Dose: 5 mg Documented by: [id number] Admin: 10/01/18 03:31 Dose: 5 mg Documented by: [id number] Admin: 09/30/18 21:35 Dose: 5 mg Documented by: [id number] Admin: 09/30/18 17:53 Dose: 5 mg Documented by: [id number] Pantoprazole Sodium (Protonix) 40 mg PO [facility] Stop: 10/31/18 08:59 Last Admin: 10/01/18 08:51 Dose: 40 mg Documented by: [id number] Potassium Chloride (Klor-Con M20) 20 meq PO [facility] Stop: 10/31/18 10:59 Last Admin: 10/01/18 11:31 Dose: 20 meq Documented by: [id number] Ranitidine HCl (Zantac) 150 mg PO [facility] Stop: 10/31/18 08:59 Last Admin: 10/01/18 08:52 Dose: 150 mg Documented by: [id number] Thiamine HCl (Vitamin B-1) 100 mg PO [facility] Stop: 10/30/18 15:59 Last Admin: 10/01/18 08:52 Dose: 100 mg Documented by: [id number] Admin: 09/30/18 16:48 Dose: 100 mg Documented by: [id number] Medical Decision Making Medical Records Attestation: I reviewed the patient's medical records. Home Medications Current Medication List: was personally reviewed by me Laboratory Data Attestation: I reviewed the patient's lab results. Result diagrams: 10/01/18 06:42 10/01/18 12:42 Lab Results 09/30/18 09/30/18 09/30/18 Range/Units 11:54 11:54 12:45 WBC 4.31 L (4.8-10.8) K/uL RBC 4.34 L (4.7-6.1) M/uL Hgb 13.3 L (14.0-18.0) g/dL Hct 37.2 L (42-52) % MCV 85.7 (80-100) fL MCH 30.6 (25-34) pg MCHC 35.8 (32-36) g/dL RDW Std Deviation 42.1 (36.4-46.3) fL RDW Coeff of Miguel 13.4 (11.5-14.5) % Plt Count 149 (130-400) K/uL MPV 8.5 (7.4-10.4) fL Immature Gran % (Auto) 0.0 % Neut % (Auto) 42.7 % Lymph % (Auto) 25.5 % Geary % (Auto) 31.1 % Eos % (Auto) 0.5 % Baso % (Auto) 0.2 % Immature Gran # (Auto) 0.00 (0.00-0.02) K/uL Neut # (Auto) 1.84 (1.4-6.5) K/uL Lymph # (Auto) 1.10 L (1.2-3.4) K/uL Geary # (Auto) 1.34 H (0.11-0.59) K/uL Eos # (Auto) 0.02 (0-0.5) K/uL Baso # (Auto) 0.01 (0-0.2) K/uL Sodium 123 L (136-145) mmol/L Potassium 4.2 (3.5-5.1) mmol/L Chloride 87 L (98-107) mmol/L Carbon Dioxide 26 (21-32) mmol/L Anion Gap 10.0 (3-11) BUN 22 H (7-18) mg/dl Creatinine 1.50 H (0.6-1.4) mg/dl Est Cr Clr Drug Dosing 56.1 ml/min Est GFR ( Amer) 59.5 Est GFR (Non-Af Amer) 51.3 BUN/Creatinine Ratio 14.7 (10-20) Glucose 155 H (70-99) mg/dl Calcium 9.1 (8.5-10.1) mg/dl Magnesium 2.2 (1.8-2.4) mg/dl Total Bilirubin 1.4 H (0.2-1) mg/dl AST 69 H (15-37) U/L ALT 42 (12-78) U/L Alkaline Phosphatase 139 H (45-117) U/L Total Protein 9.0 H (6.4-8.2) gm/dl Albumin 4.1 (3.4-5.0) gm/dl Globulin 4.9 H (2.5-4.0) gm/dl Albumin/Globulin Ratio 0.8 L (0.9-2) Lipase 417 H (73-393) U/L Folate (>5.38) ng/ml Urine Color Yellow Urine Appearance Clear (Clear) Urine pH 6.0 (4.5-7.5) Ur Specific Bryant 1.023 (1.000-1.030) Urine Protein 1+ H (Negative) Urine Glucose (UA) 2+ H (Negative) Urine Ketones Trace H (Negative) Urine Blood Negative (Negative) Urine Nitrite Negative (Negative) Urine Bilirubin Negative (Negative) Urine Urobilinogen Negative (Negative) Ur Leukocyte Esterase Negative (Negative) Urine WBC (Auto) 1-5 (0-5) /hpf Urine RBC (Auto) 0-4 (0-4) /hpf U Hyaline Cast (Auto) 1-5 (0-5) /lpf U Epithel Cells (Auto) 10-20 H (0-5) /lpf Urine Bacteria (Auto) Negative (Negative) Urine Opiates Screen (Neg) Ur Methadone, Qual (Neg) Urine Barbiturates (Neg) Ur Phencyclidine (PCP) (Neg) U Amphetamin/Meth Scrn (Neg) MDMA (Ecstasy) Screen (Neg) U Benzodiazepines Scrn (Neg) Ur Cocaine Metabolite (Neg) U Marijuana (THC) Screen (Neg) Ethyl Alcohol mg/dL (0-3) mg/dl 09/30/18 09/30/18 09/30/18 Range/Units 12:45 14:06 15:59 WBC (4.8-10.8) K/uL RBC (4.7-6.1) M/uL Hgb (14.0-18.0) g/dL Hct (42-52) % MCV (80-100) fL MCH (25-34) pg MCHC (32-36) g/dL RDW Std Deviation (36.4-46.3) fL RDW Coeff of Miguel (11.5-14.5) % Plt Count (130-400) K/uL MPV (7.4-10.4) fL Immature Gran % (Auto) % Neut % (Auto) % Lymph % (Auto) % Geary % (Auto) % Eos % (Auto) % Baso % (Auto) % Immature Gran # (Auto) (0.00-0.02) K/uL Neut # (Auto) (1.4-6.5) K/uL Lymph # (Auto) (1.2-3.4) K/uL Geary # (Auto) (0.11-0.59) K/uL Eos # (Auto) (0-0.5) K/uL Baso # (Auto) (0-0.2) K/uL Sodium 125 L (136-145) mmol/L Potassium 3.7 (3.5-5.1) mmol/L Chloride 92 L (98-107) mmol/L Carbon Dioxide 25 (21-32) mmol/L Anion Gap 8.0 (3-11) BUN 16 (7-18) mg/dl Creatinine 1.24 (0.6-1.4) mg/dl Est Cr Clr Drug Dosing 68.0 ml/min Est GFR ( Amer) 74.9 Est GFR (Non-Af Amer) 64.6 BUN/Creatinine Ratio 13.3 (10-20) Glucose 139 H (70-99) mg/dl Calcium 8.3 L (8.5-10.1) mg/dl Magnesium (1.8-2.4) mg/dl Total Bilirubin (0.2-1) mg/dl AST (15-37) U/L ALT (12-78) U/L Alkaline Phosphatase (45-117) U/L Total Protein (6.4-8.2) gm/dl Albumin (3.4-5.0) gm/dl Globulin (2.5-4.0) gm/dl Albumin/Globulin Ratio (0.9-2) Lipase (73-393) U/L Folate (>5.38) ng/ml Urine Color Urine Appearance (Clear) Urine pH (4.5-7.5) Ur Specific Bryant (1.000-1.030) Urine Protein (Negative) Urine Glucose (UA) (Negative) Urine Ketones (Negative) Urine Blood (Negative) Urine Nitrite (Negative) Urine Bilirubin (Negative) Urine Urobilinogen (Negative) Ur Leukocyte Esterase (Negative) Urine WBC (Auto) (0-5) /hpf Urine RBC (Auto) (0-4) /hpf U Hyaline Cast (Auto) (0-5) /lpf U Epithel Cells (Auto) (0-5) /lpf Urine Bacteria (Auto) (Negative) Urine Opiates Screen Neg (Neg) Ur Methadone, Qual Neg (Neg) Urine Barbiturates Neg (Neg) Ur Phencyclidine (PCP) Neg (Neg) U Amphetamin/Meth Scrn Neg (Neg) MDMA (Ecstasy) Screen Neg (Neg) U Benzodiazepines Scrn Neg (Neg) Ur Cocaine Metabolite Pos H (Neg) U Marijuana (THC) Screen Pos H (Neg) Ethyl Alcohol mg/dL < 3.0 (0-3) mg/dl 09/30/18 10/01/18 10/01/18 Range/Units 15:59 06:42 06:42 WBC 4.95 (4.8-10.8) K/uL RBC 3.93 L (4.7-6.1) M/uL Hgb 11.8 L (14.0-18.0) g/dL Hct 34.4 L (42-52) % MCV 87.5 (80-100) fL MCH 30.0 (25-34) pg MCHC 34.3 (32-36) g/dL RDW Std Deviation 43.6 (36.4-46.3) fL RDW Coeff of Miguel 13.6 (11.5-14.5) % Plt Count 141 (130-400) K/uL MPV 8.9 (7.4-10.4) fL Immature Gran % (Auto) % Neut % (Auto) % Lymph % (Auto) % Geary % (Auto) % Eos % (Auto) % Baso % (Auto) % Immature Gran # (Auto) (0.00-0.02) K/uL Neut # (Auto) (1.4-6.5) K/uL Lymph # (Auto) (1.2-3.4) K/uL Geary # (Auto) (0.11-0.59) K/uL Eos # (Auto) (0-0.5) K/uL Baso # (Auto) (0-0.2) K/uL Sodium 131 L (136-145) mmol/L Potassium 3.4 L (3.5-5.1) mmol/L Chloride 98 (98-107) mmol/L Carbon Dioxide 26 (21-32) mmol/L Anion Gap 7.0 (3-11) BUN 8 D (7-18) mg/dl Creatinine 0.91 D (0.6-1.4) mg/dl Est Cr Clr Drug Dosing 92.7 ml/min Est GFR ( Amer) 108.8 Est GFR (Non-Af Amer) 93.9 BUN/Creatinine Ratio 8.6 L (10-20) Glucose 106 H (70-99) mg/dl Calcium 8.5 (8.5-10.1) mg/dl Magnesium (1.8-2.4) mg/dl Total Bilirubin 0.7 D (0.2-1) mg/dl AST 39 H (15-37) U/L ALT 30 (12-78) U/L Alkaline Phosphatase 119 H (45-117) U/L Total Protein 7.4 (6.4-8.2) gm/dl Albumin 3.4 (3.4-5.0) gm/dl Globulin 4.0 (2.5-4.0) gm/dl Albumin/Globulin Ratio 0.9 (0.9-2) Lipase 157 (73-393) U/L Folate 19.29 (>5.38) ng/ml Urine Color Urine Appearance (Clear) Urine pH (4.5-7.5) Ur Specific Bryant (1.000-1.030) Urine Protein (Negative) Urine Glucose (UA) (Negative) Urine Ketones (Negative) Urine Blood (Negative) Urine Nitrite (Negative) Urine Bilirubin (Negative) Urine Urobilinogen (Negative) Ur Leukocyte Esterase (Negative) Urine WBC (Auto) (0-5) /hpf Urine RBC (Auto) (0-4) /hpf U Hyaline Cast (Auto) (0-5) /lpf U Epithel Cells (Auto) (0-5) /lpf Urine Bacteria (Auto) (Negative) Urine Opiates Screen (Neg) Ur Methadone, Qual (Neg) Urine Barbiturates (Neg) Ur Phencyclidine (PCP) (Neg) U Amphetamin/Meth Scrn (Neg) MDMA (Ecstasy) Screen (Neg) U Benzodiazepines Scrn (Neg) Ur Cocaine Metabolite (Neg) U Marijuana (THC) Screen (Neg) Ethyl Alcohol mg/dL (0-3) mg/dl 10/01/18 Range/Units 12:42 WBC (4.8-10.8) K/uL RBC (4.7-6.1) M/uL Hgb (14.0-18.0) g/dL Hct (42-52) % MCV (80-100) fL MCH (25-34) pg MCHC (32-36) g/dL RDW Std Deviation (36.4-46.3) fL RDW Coeff of Miguel (11.5-14.5) % Plt Count (130-400) K/uL MPV (7.4-10.4) fL Immature Gran % (Auto) % Neut % (Auto) % Lymph % (Auto) % Geary % (Auto) % Eos % (Auto) % Baso % (Auto) % Immature Gran # (Auto) (0.00-0.02) K/uL Neut # (Auto) (1.4-6.5) K/uL Lymph # (Auto) (1.2-3.4) K/uL Geary # (Auto) (0.11-0.59) K/uL Eos # (Auto) (0-0.5) K/uL Baso # (Auto) (0-0.2) K/uL Sodium 130 L (136-145) mmol/L Potassium 4.1 D (3.5-5.1) mmol/L Chloride 100 (98-107) mmol/L Carbon Dioxide 26 (21-32) mmol/L Anion Gap 4.0 (3-11) BUN 7 (7-18) mg/dl Creatinine 0.94 (0.6-1.4) mg/dl Est Cr Clr Drug Dosing 89.7 ml/min Est GFR ( Amer) 104.6 Est GFR (Non-Af Amer) 90.3 BUN/Creatinine Ratio 7.0 L (10-20) Glucose 146 H (70-99) mg/dl Calcium 7.9 L (8.5-10.1) mg/dl Magnesium (1.8-2.4) mg/dl Total Bilirubin (0.2-1) mg/dl AST (15-37) U/L ALT (12-78) U/L Alkaline Phosphatase (45-117) U/L Total Protein (6.4-8.2) gm/dl Albumin (3.4-5.0) gm/dl Globulin (2.5-4.0) gm/dl Albumin/Globulin Ratio (0.9-2) Lipase (73-393) U/L Folate (>5.38) ng/ml Urine Color Urine Appearance (Clear) Urine pH (4.5-7.5) Ur Specific Bryant (1.000-1.030) Urine Protein (Negative) Urine Glucose (UA) (Negative) Urine Ketones (Negative) Urine Blood (Negative) Urine Nitrite (Negative) Urine Bilirubin (Negative) Urine Urobilinogen (Negative) Ur Leukocyte Esterase (Negative) Urine WBC (Auto) (0-5) /hpf Urine RBC (Auto) (0-4) /hpf U Hyaline Cast (Auto) (0-5) /lpf U Epithel Cells (Auto) (0-5) /lpf Urine Bacteria (Auto) (Negative) Urine Opiates Screen (Neg) Ur Methadone, Qual (Neg) Urine Barbiturates (Neg) Ur Phencyclidine (PCP) (Neg) U Amphetamin/Meth Scrn (Neg) MDMA (Ecstasy) Screen (Neg) U Benzodiazepines Scrn (Neg) Ur Cocaine Metabolite (Neg) U Marijuana (THC) Screen (Neg) Ethyl Alcohol mg/dL (0-3) mg/dl Imaging Data Attestation: I personally reviewed and interpreted this imaging study as follows: Radiologist's Impression: Chest and abdominal x-rays IMPRESSION: 1. No active disease in the chest. 2. Nonobstructed abdominal bowel gas pattern. Electronically signed by: Cyrus Almendarez M.D. 09/30/2018 12:27 PM Dictated: 09/30/18 1225 Transcribed: 09/30/18 1225 [facility] Narrative Differential diagnosis: Viral versus bacterial GI illness, pancreatitis, choledocholithiasis, cholecystitis, bowel obstruction, among others This patient is a 58-year-old male presents to the emergency department com plaining of ongoing vomiting and diarrhea over the last week. On exam, his abdomen was fairly benign. His vital signs were stable. His labs are significant for hyponatremia, dehydration and minor renal insufficiency. Unfortunately, I cannot get the patient's nausea and vomiting under control. F or this reason, it was felt that consultation to the hospital service was appropriate. They will evaluate the patient for possible inpatient management. Impression & Plan Acute hyponatremia Discharge Plan Visit Data *Final* Discharge Date/Time: 09/30/18 15:08 Chief Complaint: Vomiting Stated Complaint: VOMITING AFTER EATING ED Provider: Lennox Garcia ED Midlevel Provider: Lita Alvarez Discharge Problem: Acute hyponatremia Patient Disposition: Admitted As Inpatient Discharge Instructions Interventions: ED Discharge Assessment Last Done: 09/30/18 15:08
[2018-09-30 12:04] LABS: Basophils # (auto) 0.01 K/uL (0-0.2); Basophils % (auto) 0.2 %; Eosinophils # (auto) 0.02 K/uL (0-0.5); Eosinophils % (auto) 0.5 %; Hematocrit (blood only) 37.2 % (42-52); Hemoglobin 13.3 g/dL (14.0-18.0); Lymphocytes % (auto) 25.5 %; Mean Corpuscular Hgb Conc 35.8 g/dL (32-36); Mean Corpuscular Volume 85.7 fL (80-100); Mean Platelet Volume 8.5 fL (7.4-10.4); Monocytes # (auto) 1.34 K/uL (0.11-0.59); Monocytes % (auto) 31.1 %; Neutrophils # (auto) 1.84 K/uL (1.4-6.5); Neutrophils % (auto) 42.7 %; Platelet Count 149 K/uL (130-400); RDW Coefficient of Variation 13.4 % (11.5-14.5); RDW Standard Deviation 42.1 fL (36.4-46.3); Red Blood Count 4.34 M/uL (4.7-6.1); White Blood Count 4.31 K/uL (4.8-10.8)
[2018-09-30 12:25] LABS: Albumin Level 4.1 gm/dl (3.4-5.0); BUN Creatinine Ratio 14.7 (10-20); Calcium 9.1 mg/dl (8.5-10.1); Creatinine Clr Calc Pharmacy 56.1 ml/min; Est GFR (African American) 59.5; Est GFR (Non-African American) 51.3; Magnesium 2.2 mg/dl (1.8-2.4); Potassium 4.2 mmol/L (3.5-5.1)
[2018-09-30 12:27] LABS: Albumin Globulin Ratio 0.8 (0.9-2); Bilirubin,Total 1.4 mg/dl (0.2-1); Globulin 4.9 gm/dl (2.5-4.0)
--- NOTE | 2018-09-30 12:29 | XRay Report ---
PA CHEST WITH ABDOMINAL SERIES CLINICAL HISTORY: Vomiting. Diarrhea. FINDINGS: 2 PA chest radiographs are compared to study dated 07/03/2018. The cardiomediastinal silhouette is unr emarkable. The lungs and pleural spaces are clear. No pneumothorax is seen. There are healed bilatera l rib fractures. Supine and erect abdominal radiographs are correlated with abdominal CT dated 06/12/2018. There is a nonobstructed abdominal bowel gas pattern. No evidence of intraperitoneal free air is seen. There are no abnormal abdominal calcifications. Lumbosacral spondylosis is noted. The lumbosacral spine and [place] pelvis appear intact. IMPRESSION: 1. No active disease in the chest. 2. Nonobstructed abdominal bowel gas pattern. Electronically signed by: Cyrus Almendarez M.D. 09/30/2018 12:27 PM
[2018-09-30] MEDS ORDERED: MoRPHine SULFATE 4 MG/ML 1 ML CARP\\VIAL IV STA (13:01)
[2018-09-30 13:54] LABS: Appearance Urine Clear (Clear); Bacteria Urine Automated Negative (Negative); Bilirubin Urine Negative (Negative); Blood Urine Negative (Negative); Color Urine Yellow; Glucose Urine UA 2+ (Negative); Ketones Urine Trace (Negative); Leukocyte Esterase Urine Negative (Negative); Nitrite Urine Negative (Negative); Protein Urine 1+ (Negative); RBC Urine Automated 0-4 /hpf (0-4); Specific Gravity Urine 1.023 (1.000-1.030); Urobilinogen Urine Negative (Negative)
[2018-09-30 14:13] LABS: Amphetamines+Metham, Urine Neg (Neg); Barbiturates, Urine Neg (Neg); Benzodiazepine, Urine Neg (Neg); Cocaine, Urine Pos (Neg); MDMA (Ecstacy), Urine Neg (Neg); Methadone, Urine Neg (Neg); Opiate, Urine Neg (Neg); Phencyclidine, Urine Neg (Neg)
[2018-09-30] MEDS ORDERED: HydrALAZINE HCL 20 MG/ML VIAL IV PRN (14:24)
[2018-09-30] MEDS ORDERED: LORazepam 1 MG TAB PO PRN (14:25)
[2018-09-30] MEDS ORDERED: GABAPENTIN 1200MG ALCOHOL WITHDRAWAL LOAD PO STA (14:25)
--- NOTE | 2018-09-30 14:29 | History & Physical Report ---
Date of Service September 30, 2018 History of Present Illness Primary Care Provider: Liyah Oseguera MD Allergies Allergy/AdvReac Type Severity Reaction Status Date / Time No Known Allergies Allergy Verified 09/30/18 13:12 Home Medications Home Medications Medication Instructions Recorded Confirmed Type gabapentin [Neurontin] 300 mg PO TID 02/21/18 09/30/18 History omeprazole 40 mg PO QAM 02/21/18 09/30/18 History ranitidine HCl 150 mg PO QAM 02/21/18 09/30/18 History albuterol sulfate [Proventil HFA] 2 puff INHALATION Q4H PRN 07/03/18 09/30/18 History atorvastatin 20 mg PO DAILY 07/03/18 09/30/18 History fluoxetine 10 mg PO DAILY 07/03/18 09/30/18 History polyethylene glycol 3350 17 g PO DAILY PRN 07/03/18 09/30/18 History sennosides-docusate sodium [Senna 2 tab PO DAILY PRN 07/03/18 09/30/18 History with Docusate Sodium] carvedilol 3.125 mg PO BID 30 Days #60 tab 07/08/18 09/30/18 Rx lisinopril 20 mg PO DAILY 09/30/18 09/30/18 History thiamine HCl (vitamin B1) [Vitamin 0 tab PO DAILY 09/30/18 09/30/18 History B-1] Past Med/Surg History Medical History Depression (Chronic) 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 GERD (gastroesophageal reflux disease) Hx of hematuria Hx of pancreatitis Obesity Surgical History Hx of right BKA (Chronic) 2013 s/p fracture of tibia/fibula with associated infection Complete below knee amputation of right lower extremity History of mandibular surgery BROKEN JAW 1978 History of tooth extraction ALL TEETH REMOVED Family History Sister Family history of diabetes mellitus Brother Pancreatic carcinoma Social History Preferred Language: Danish Beliefs That Will Affect Care: None marital status: Single Current Living Situation: Family Current Living Situation Comment: sister and brother Feels Safe at Home: Yes Smoking Status: Current every day smoker Hx Alcohol Use: Yes Hx Substance Use: Yes Physical Exam Vital Signs (Past 24 Hours): Last Vital Signs Temp 36.6 C 09/30/18 11:17 Pulse 95 H 09/30/18 14:24 Resp 18 09/30/18 14:24 BP 187/118 H 09/30/18 14:24 Pulse Ox 99 09/30/18 14:24
[2018-09-30] MEDS ORDERED: MULTI-VITAMIN INFUSION 10 ML, THIAMINE HCL 100 MG, FOLIC ACID 1 MG in SODIUM CHLORIDE 0... IV SCH (15:00)
[2018-09-30] MEDS ORDERED: IOVERSOL 100ml IV PRN (15:20)
--- NOTE | 2018-09-30 15:32 | CT Scan Report ---
CT SCAN OF THE ABDOMEN AND PELVIS WITH IV CONTRAST CLINICAL HISTORY: Generalized abdominal pain. Postprandial vomiting. Diarrhea. COMPARISON STUDY: Abdominal CT dated 06/12/2018. TECHNIQUE: Following the IV administration of 93 cc of Optiray 320, CT scan of the abdomen and pelvi s is performed from the lung bases to the proximal femora. Images are reviewed in the axial, sagittal , and coronal planes. IV contrast was administered without complication. Oral contrast was utilized. A dose lowering technique was utilized adhering to the principles of ALARA. CT DOSE: 427.68 mGy.cm FINDINGS: Lung bases: The heart is normal in size and without pericardial effusion. The lung bases are clear. Liver: The contrast-enhanced liver is normal in size, contour, and attenuation. Focal fatty infiltrat ion is seen adjacent to falciform ligament. There is no intrahepatic biliary ductal dilatation. The h epatic veins and portal veins are patent. Gallbladder: Unremarkable. Spleen: Normal in size and attenuation. Pancreas: There is moderate glandular atrophy. Peripancreatic inflammation seen on 06/12/2018 has res olved. The gland enhances homogeneously. The splenic vein is patent. Adrenal glands: Unremarkable. Kidneys: The contrast enhanced kidneys are normal in size and without hydronephrosis. The kidneys enh ance symmetrically. Abdominal vasculature: The abdominal aorta is normal in course and caliber noting scattered foci of a therosclerotic calcification. Bowel: No bowel obstruction is identified. Enteric contrast reaches the right colon. Submucosal fat d eposition is noted throughout the colon. Question mild wall thickening of the left colon. The appendi x is well-visualized and normal. Peritoneum: There is no intraperitoneal free air or abdominal ascites. Lymphadenopathy: None. Pelvic viscera: The prostate gland is mildly enlarged and heterogeneous. The bladder is decompressed and grossly unremarkable. The seminal vesicles are normal as imaged. Skeletal structures: Moderate lumbosacral spondylosis is observed. Degenerative change and partial fu yohan is noted in the sacroiliac joints. Arthritic change is also seen in the hips. No lytic or blasti c lesions are seen. IMPRESSION: 1. Question mild wall thickening of the left colon. Correlate clinically for evidence of a mild nonsp ecific colitis. 2. There is no CT evidence of acute pancreatitis the time of examination. Findings of acute pancreati tis seen on 06/12/2018 have resolved. 3. Additional findings as above. Electronically signed by: Cyrus Almendarez M.D. 09/30/2018 3:30 PM
[2018-09-30] MEDS ORDERED: ONDANSETRON INJ 2 MG/ML 2 ML VIAL IV PRN (15:41)
[2018-09-30] MEDS ORDERED: GABAPENTIN 600 MG TAB PO SCH (16:00)
[2018-09-30 16:32] LABS: BUN Creatinine Ratio 13.3 (10-20); Calcium 8.3 mg/dl (8.5-10.1); Est GFR (African American) 74.9; Est GFR (Non-African American) 64.6; Potassium 3.7 mmol/L (3.5-5.1)
[2018-09-30] MEDS: THIAMINE HCL 100 MG TAB PO SCH (16:48)
--- NOTE | 2018-09-30 16:53 | History & Physical Report ---
Date of Service September 30, 2018 Assessment & Plan (1) Nausea & vomiting: Present on Admission?: Yes (2) Abdominal pain: Patient presents with nausea/vomiting for few days associated with abdominal pain, umbilical area, intermittent. CT scan shows Mild non specific colitis D/D considered-acute pancreatitis with history of pancreatitis/alcohol abuse, Mildly elevated lipase (400s), however clinically abdominal pain not typical and CT scan shows no signs of pancreatitis, gastritis, gastroenteritis -S/P IV Fluids 2 L in ED, banana bag. Will continue with IV NS at 100 cc/hour -Clear liquid -Pain mx- Avoid IV narcotics, Oxycodone PRN -Will avoid antibiotics at this point given no signs of infection, part of symptoms sec to alcoholism -Work up- Stool studies, C diff ordered Present on Admission?: Yes (3) Hyponatremia: HYPOVOLEMIC HYPONATREMIA Secondary to volume depletion secondary to N/V -Na 123 on admission, Repeat after some fluids - 125 -Continue with IV NS at 100 cc/hour -BMP q 4 hours (4) IDALIA (acute kidney injury): Prerenal secondary to above/volume depletion Creatinine on admission 1.50, repeat BMP shows creatinine 1.24 after IV fluids Continue with IV fluids Hold lisinopril Monitor (5) Alcoholism: Known hx of alcohol abuse for long time. Has been to drug and alcohol rehab multiple times in the past. Last drink was 3 days ago. States that he got a bottle of wine, unable to have a full glass due to nausea/vomiting Status post banana bag, IV fluids -Monitor for signs of withdrawal -Not interested in rehab at this time -Counseling about alcohol cessation given Present on Admission?: Yes (6) HTN (hypertension): Elevated on admission Continue home medicationscarvedilol 3.125 mg twice daily, hold lisinopril due to elevated creatinine Received IV hydralazine 10 mg in ED Monitor (7) Cocaine abuse: Admits to use of cocaine yesterday. UDS positive for cocaine Has history of the same in the past Counseling given Present on Admission?: Yes (8) Tobacco abuse: Nicotine patch will be ordered Counseling given Present on Admission?: Yes (9) Marijuana abuse: Daily marijuana use Counseling done Present on Admission?: Yes (10) Hx of right BKA: Stable. Prosthetic limb + (11) DVT prophylaxis: SCD/TEDS Encourage mobilization GI PROPHYLAXIS Omeprazole at home DISPOSITION Admit to [facility] telemetry History of Present Illness Chief Complaint: Nausea and vomiting x few days Primary Care Provider: Liyah Oseguera MD Patient is a 58-year-old male with history of alcohol abuse, marijuana use, tobacco abuse, cocaine abuse, recurrent pancreatitis, depression, history of traumatic type BKA, comes to the hospital for nausea/vomiting for a few days. Last hospitalization was 07/03 to 07/08/18 for alcohol withdrawal and was discharged to drug and alcohol rehab. As per patient, next day after being discharged from drug and alcohol rehab he again started drinking. His last drink was 3 days ago. . But he states he was unable to finish the drink because of nausea/vomiting. Cocaine use yesterday. Marijuana use daily. Also complains of umbilical pain on and off, aggravated by food. Describes it as dull aching with no radiation. No complains of fever, chills, diarrhea, constipation. No chest pain, shortness of breath, cough, leg swelling. In ED, blood pressure 161/82, pulse 108, temperature 36.7. Labs- WBC 4.31, creatinine 1.50, sodium 123, total bilirubin 1.4, AST 69, lipase. CT scan abdomen/pelvisquestionable mild wall thickening of left colon, mild nonspecific colitis, no evidence of acute pancreatitis. Urine drug screen is positive for marijuana, cocaine. Received IV normal saline 2 L, IV morphine 4 mg. IV Zofran. We have been asked to admit this patient for nausea/vomiting, unable to tolerate p.o. for further evaluation and management Allergies Allergy/AdvReac Type Severity Reaction Status Date / Time No Known Allergies Allergy Verified 09/30/18 13:12 Home Medications Home Medications Medication Instructions Recorded Confirmed Type gabapentin [Neurontin] 300 mg PO TID 02/21/18 09/30/18 History omeprazole 40 mg PO QAM 02/21/18 09/30/18 History ranitidine HCl 150 mg PO QAM 02/21/18 09/30/18 History albuterol sulfate [Proventil HFA] 2 puff INHALATION Q4H PRN 07/03/18 09/30/18 History atorvastatin 20 mg PO DAILY 07/03/18 09/30/18 History fluoxetine 10 mg PO DAILY 07/03/18 09/30/18 History polyethylene glycol 3350 17 g PO DAILY PRN 07/03/18 09/30/18 History sennosides-docusate sodium [Senna 2 tab PO DAILY PRN 07/03/18 09/30/18 History with Docusate Sodium] carvedilol 3.125 mg PO BID 30 Days #60 tab 07/08/18 09/30/18 Rx lisinopril 20 mg PO DAILY 09/30/18 09/30/18 History thiamine HCl (vitamin B1) [Vitamin 0 tab PO DAILY 09/30/18 09/30/18 History B-1] Past Med/Surg History Medical History Depression (Chronic) 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 GERD (gastroesophageal reflux disease) Hx of hematuria Hx of pancreatitis Obesity Surgical History Hx of right BKA (Chronic) 2013 s/p fracture of tibia/fibula with associated infection Complete below knee amputation of right lower extremity History of mandibular surgery BROKEN JAW 1978 History of tooth extraction ALL TEETH REMOVED Family History Sister Family history of diabetes mellitus Brother Pancreatic carcinoma Social History Preferred Language: Colombian Communication Ability: Effective Cone Tender Required: No Beliefs That Will Affect Care: None marital status: Single Current Living Situation: Family Current Living Situation Comment: sister and brother Other Information That Helps Us Care for You: No Feels Safe at Home: Yes Safety Concerns: Feels Safe At This Time Smoking Status: Current some day smoker Hx Alcohol Use: Yes Hx Substance Use: Yes Review of Systems All systems reviewed & are unremarkable except as noted in HPI & below Physical Exam Vital Signs (Past 24 Hours): Last Vital Signs Temp 36.7 C 09/30/18 15:51 Pulse 108 H 09/30/18 15:51 Resp 18 09/30/18 15:51 BP 161/82 H 09/30/18 15:51 Pulse Ox 99 04/13/19 15:51 Constitutional: well developed; no acute distress Awake, alert, oriented x3 Eyes: + anicteric sclerae and PERRL ENMT: external ear and nose normal, oropharynx normal Neck: normal visual inspection Respiratory: normal respiratory effort, lungs clear to auscultation Cardiovascular: RRR, no murmur, no edema Gastrointestinal (Abdomen): Inspection/Auscultation: normal bowel sounds; abdomen not distended Percussion/Palpation: + abdomen tender (Umbilical tenderness) and abdomen soft Neurologic: PERRL, EOMI, accommodation nl, no face palsy, no dysarthria POWER 5/5 all extremities Results & Data Laboratory Results Short CBC 09/30/18 Range/Units 11:54 WBC 4.31 L (4.8-10.8) K/uL Hgb 13.3 L (14.0-18.0) g/dL Hct 37.2 L (42-52) % Plt Count 149 (130-400) K/uL BMP 09/30/18 09/30/18 11:54 15:59 Sodium 123 L 125 L Potassium 4.2 3.7 Chloride 87 L 92 L Carbon Dioxide 26 25 BUN 22 H 16 Creatinine 1.50 H 1.24 Glucose 155 H 139 H Calcium 9.1 8.3 L Liver Function 09/30/18 Range/Units 11:54 Total Bilirubin 1.4 H (0.2-1) mg/dl AST 69 H (15-37) U/L ALT 42 (12-78) U/L Alkaline Phosphatase 139 H (45-117) U/L Albumin 4.1 (3.4-5.0) gm/dl Urine 09/30/18 Range/Units 12:45 Urine Color Yellow Urine Appearance Clear (Clear) Urine pH 6.0 (4.5-7.5) Ur Specific [place] 1.023 (1.000-1.030) Urine Protein 1+ H (Negative) Urine Glucose (UA) 2+ H (Negative) Diagnostic Findings IMPRESSION: 1. Question mild wall thickening of the left colon. Correlate clinically for evidence of a mild nonspecific colitis. 2. There is no CT evidence of acute pancreatitis the time of examination. Findings of acute pancreatitis seen on 06/12/2018 have resolved. 3. Additional findings as above. Code Status & VTE Plan VTE Prophylaxis Plan VTE Prophylaxis will be ordered: Yes (1) Nausea & vomiting Vomiting Intractability: non-intractable Vomiting type: unspecified Qualif ied Code(s): R11.2 - Nausea with vomiting, unspecified (2) Abdominal pain Abdominal location: epigastric Qualified Code(s): R10.13 - Epigastric pain (3) HTN (hypertension) Hypertension type: unspecified Qualified Code(s): I10 - Essential (primary) hypertension
[2018-09-30] MEDS: NICOTINE 14 MG/24 HR PATCH TD SCH (17:45)
[2018-09-30] MEDS ORDERED: ALBUTEROL HFA 8 GM INHALER INH PRN (17:46)
[2018-09-30] MEDS: OXYCODONE HCL IR 5 MG TAB (IMMEDIATE RELEASE) PO PRN ×2 (17:53→21:35)
[2018-09-30] MEDS ORDERED: INFLUENZA VIRUS QUAD VACCINE 0.5 ML SYR IM ONE (18:00)
[2018-09-30] MEDS ORDERED: INFLUENZA ADMINISTRATION CHARGE ONE (18:00)
[2018-09-30] MEDS: SODIUM CHLORIDE 0.9% 1000ML 1,000 ML IV SCH (20:13)
[2018-09-30] MEDS: CARVEDILOL 3.125 MG TAB PO SCH (20:14)
[2018-09-30] MEDS: GABAPENTIN 600 MG TAB PO SCH (21:38)
[2018-10-01] MEDS: OXYCODONE HCL IR 5 MG TAB (IMMEDIATE RELEASE) PO PRN ×2 (03:31→04:39)
[2018-10-01] MEDS: GABAPENTIN 600 MG TAB PO SCH (03:32)
[2018-10-01] MEDS: SODIUM CHLORIDE 0.9% 1000ML 1,000 ML IV SCH (06:16)
[2018-10-01 06:56] LABS: Hematocrit (blood only) 34.4 % (42-52); Hemoglobin 11.8 g/dL (14.0-18.0); Mean Corpuscular Hgb Conc 34.3 g/dL (32-36); Mean Corpuscular Volume 87.5 fL (80-100); Mean Platelet Volume 8.9 fL (7.4-10.4); Platelet Count 141 K/uL (130-400); RDW Coefficient of Variation 13.6 % (11.5-14.5); RDW Standard Deviation 43.6 fL (36.4-46.3); Red Blood Count 3.93 M/uL (4.7-6.1); White Blood Count 4.95 K/uL (4.8-10.8)
[2018-10-01 07:24] LABS: Albumin Globulin Ratio 0.9 (0.9-2); Albumin Level 3.4 gm/dl (3.4-5.0); BUN Creatinine Ratio 8.6 (10-20); Bilirubin,Total 0.7 mg/dl (0.2-1); Calcium 8.5 mg/dl (8.5-10.1); Creatinine Clr Calc Pharmacy 92.7 ml/min; Est GFR (African American) 108.8; Est GFR (Non-African American) 93.9; Potassium 3.4 mmol/L (3.5-5.1); Total Protein 7.4 gm/dl (6.4-8.2)
[2018-10-01] MEDS: CARVEDILOL 3.125 MG TAB PO SCH (08:51)
[2018-10-01] MEDS: NICOTINE 14 MG/24 HR PATCH TD SCH (08:52)
[2018-10-01] MEDS: THIAMINE HCL 100 MG TAB PO SCH (08:52)
[2018-10-01] MEDS ORDERED: POLYETHYLENE (MIRALAX) 17 GM PACK PO PRN (09:00)
[2018-10-01] MEDS ORDERED: LISINOPRIL 20 MG TAB PO SCH (09:00)
[2018-10-01] MEDS ORDERED: FOLIC ACID 1 MG TAB PO SCH (09:00)
[2018-10-01] MEDS ORDERED: ATORVASTATIN 20 MG TAB PO SCH (09:00)
[2018-10-01] MEDS ORDERED: PANTOprazole 40 MG TAB PO SCH (09:00)
[2018-10-01] MEDS ORDERED: MULTIVITAMIN TAB PO SCH (09:00)
[2018-10-01] MEDS ORDERED: FLUOXETINE HCL 10 MG CAP PO SCH (09:00)
[2018-10-01] MEDS ORDERED: POTASSIUM CHLORIDE 20 MEQ TABCR PO SCH (11:00)
[2018-10-01] MEDS ORDERED: TRAMADOL HCL 50 MG TABLET PO PRN (12:08)
--- NOTE | 2018-10-01 12:31 | Hospitalist Progress Note ---
Date of Service October 01, 2018 Assessment & Plan (1) Nausea & vomiting: (2) Abdominal pain: Patient presented with nausea/vomiting for few days associated with abdominal pain, umbilical area, intermittent. CT scan shows Mild non specific colitis D/D considered-Acute pancreatitis with history of pancreatitis/alcohol abuse, Mildly elevated lipase (400s), however clinically abdominal pain not typical and CT scan shows no signs of pancreatitis, gastritis, gastroenteritis Clinically much better- Abd pain has almost resolved, tolerating regular diet well -On IV NS at 100 cc/hour -Clear liquid--> Advanced in AM and tolerating it well -Pain mx- Taking oxycodone q 4 hrs even when he says he has improved and wants to be discharged. Change to Tramadol PRN. -Will avoid antibiotics at this point given no signs of infection, part of symptoms sec to alcoholism -Work up- Stool studies, C diff ordered- not collected as no BM (3) Hyponatremia: HYPOVOLEMIC HYPONATREMIA- Resolving Secondary to volume depletion secondary to N/V -Na 123 on admission, now up to 131 -Continue with IV NS at 100 cc/hour -BMP in 4 hours (4) IDALIA (acute kidney injury): Prerenal secondary to above/volume depletion - Resolved Creatinine on admission 1.50, now down to 0.90 Continue with IV fluids (5) Alcoholism: Known hx of alcohol abuse for long time. Has been to drug and alcohol rehab multiple times in the past. Last drink was 3 days ago. States that he got a bottle of wine, unable to have a full glass due to nausea/vomiting Status post banana bag, IV fluids -Not interested in rehab at this time -Counseling about alcohol cessation given -No signs of alcohol withdrawal (6) HTN (hypertension): Elevated Continue home medicationscarvedilol 3.125 mg twice daily, lisinopril 20 mg daily Monitor (7) Cocaine abuse: Admits to use of cocaine prior to admission day UDS positive for cocaine Has history of the same in the past Counseling given (8) Tobacco abuse: Nicotine patch will be ordered Counseling given (9) Marijuana abuse: Daily marijuana use Counseling done (10) Hx of right BKA: Stable. Prosthetic limb + (11) DVT prophylaxis: SCD/TEDS Encourage mobilization GI PROPHYLAXIS Omeprazole at home DISPOSITION Eager to be discharged Will repeat BMP in 4 hours. If Na trending up , will discharge him home Subjective Patient is feeling much better. Abdominal pain has almost resolved but still taking oxycodone every 4 hours. Asked for food- tolerated regular diet No nausea, vomiting, diarrhea, fever, chills. No signs of alcohol withdrawal Eager to be discharged Physical Exam Vital Signs (Past 24 Hours): Last Vital Signs Temp 37.1 C 10/01/18 07:05 Pulse 102 H 10/01/18 11:05 Resp 18 10/01/18 07:05 BP 169/108 H 10/01/18 07:05 Pulse Ox 100 10/01/18 07:05 Constitutional: well developed; no acute distress Neck: normal visual inspection Respiratory: normal respiratory effort, lungs clear to auscultation Cardiovascular: RRR, no murmur, no edema Gastrointestinal (Abdomen): Inspection/Auscultation: normal bowel sounds; abdomen not distended Percussion/Palpation: abdomen soft; abdomen nontender (Umbilical tenderness), no guarding and abdomen not rigid Neurologic: PERRL, EOMI, accommodation nl, no face palsy, no dysarthria (1) Nausea & vomiting Vomiting Intractability: non-intractable Vomiting type: unspecified Qualified Code(s): R11.2 - Nausea with vomiting, unspecified (2) Abdominal pain Abdominal location: epigastric Qualified Code(s): R10.13 - Epigastric pain (3) HTN (hypertension) Hypertension type: unspecified Qualified Code(s): I10 - Essential (primary) hypertension
[2018-10-01 13:15] LABS: Calcium 7.9 mg/dl (8.5-10.1); Creatinine Clr Calc Pharmacy 89.7 ml/min; Est GFR (African American) 104.6; Est GFR (Non-African American) 90.3; Potassium 4.1 mmol/L (3.5-5.1)
[2018-10-01] MEDS ORDERED: GABAPENTIN 600 MG TAB PO SCH (14:00)
--- NOTE | 2018-10-01 15:42 | Discharge Summary ---
Date of Service October 01, 2018 Admission HPI Per Admitting Provider Patient is a 58-year-old male with history of alcohol abuse, marijuana use, tobacco abuse, cocaine abuse, recurrent pancreatitis, depression, history of traumatic type BKA, comes to the hospital for nausea/vomiting for a few days. Last hospitalization was 07/03 to 07/08/18 for alcohol withdrawal and was discharged to drug and alcohol rehab. As per patient, next day after being discharged from drug and alcohol rehab he again started drinking. His last drink was 3 days ago. But he states he was unable to finish the drink because of nausea/vomiting. Cocaine use yesterday. Marijuana use daily. Also complains of umbilical pain on and off, aggravated by food. Describes it as dull aching with no radiation. No complains of fever, chills, diarrhea, constipation. No chest pain, shortness of breath, cough, leg swelling. In ED, blood pressure 161/82, pulse 108, temperature 36.7. Labs- WBC 4.31, creatinine 1.50, sodium 123, total bilirubin 1.4, AST 69, lipase. CT scan abdomen/pelvisquestionable mild wall thickening of left colon, mild nonspecific colitis, no evidence of acute pancreatitis. Urine drug screen is positive for marijuana, cocaine. Received IV normal saline 2 L, IV morphine 4 mg. IV Zofran. We have been asked to admit this patient for nausea/vomiting, unable to tolerate p.o. for further evaluation and management Principal Diagnosis 1. Mild non specific colitis 2. Hypovolemic Hyponatremia 3. Hypokalemia 4. Acute kidney injury 5. Alcoholism 6. Cocaine abuse 7. Marijuana abuse 8. Tobacco abuse 9. Non compliance SECONDARY DIAGNOSIS ON DISCHARGE 1. Hx of prosthetic limb, right BKA Discharge Exam Constitutional well developed; no acute distress Eyes + anicteric sclerae and PERRL ENMT external ear and nose normal, oropharynx normal Neck normal visual inspection Respiratory normal respiratory effort, lungs clear to auscultation Cardiovascular RRR, no murmur, no edema Gastrointestinal (Abdomen) Inspection/Auscultation: normal bowel sounds; abdomen not distended Percussion/Palpation: abdomen soft; abdomen nontender (Umbilical tenderness), no guarding and abdomen not rigid Neurologic PERRL, EOMI, accommodation nl, no face palsy, no dysarthria Discharge Data Allergies Allergy/AdvReac Type Severity Reaction Status Date / Time No Known Allergies Allergy Verified 09/30/18 13:12 Consultations 09/30/18 13:03 ED Decision to Admit Stat 09/30/18 15:41 Consult Case Management - Discharge Planning Routine Ordered Studies 09/30/18 13:01 CT abd pelvis oral and IV con Stat Hospital Course (1) Nausea & vomiting: (2) Abdominal pain: Patient presented with nausea/vomiting/ diarrhea for few days associated with abdominal pain, umbilical area, intermittent. CT scan shows Mild non specific colitis D/D considered-Acute pancreatitis with history of pancreatitis/alcohol abuse, Mildly elevated lipase (400s), however clinically abdominal pain not typical and CT scan shows no signs of pancreatitis, Gastritis, gastroenteritis considered. Clinically improved- Abd pain has resolved, lipase normalized, tolerating PO diet well and requesting discharge. -On IV NS at 100 cc/hour -Tolerating diet well -Pain mx- Taking oxycodone q 4 hrs even when he says he has improved and wants to be discharged. -Will avoid antibiotics at this point given no signs of infection, part of symptoms sec to alcoholism -Work up- Stool studies, C diff ordered- not collected as no BM (3) Hyponatremia: HYPOVOLEMIC HYPONATREMIA- Resolving Secondary to volume depletion secondary to N/V -Na 123 on admission, now up to 131 -Received IV fluids -Recommend monitoring outpatient during next office visit (4) IDALIA (acute kidney injury): Prerenal secondary to above/volume depletion - Resolved -Creatinine on admission 1.50, now down to 0.90 after receiving IV fluids (5) Alcoholism: Known hx of alcohol abuse for long time. Has been to drug and alcohol rehab multiple times in the past without much success in quitting. Last drink was 3 days ago. States that he got a bottle of wine, unable to have a full glass due to nausea/vomiting Status post banana bag, IV fluids -Not interested in rehab at this time -Counseling about alcohol cessation given -No signs of alcohol withdrawal (6) HTN (hypertension): Uncontrolled, but now better at the time of discharge -Continue home medicationscarvedilol 3.125 mg twice daily, lisinopril 20 mg daily -Monitor outpatient (7) Cocaine abuse: Admits to use of cocaine prior to admission day -UDS positive for cocaine -Has history of the same in the past -Counseling given (8) Tobacco abuse: -Nicotine patch was ordered -Counseling given (9) Marijuana abuse: -Daily marijuana use -Counseling done (10) Hx of right BKA: -Stable. Prosthetic limb + (11) DVT prophylaxis: SCD/TEDS Encourage mobilization GI PROPHYLAXIS Omeprazole at home DISPOSITION Eager to be discharged and wants to be discharged today itself. Clinically improved with no symptoms, labs are better Ok to discharge home today Total Time Total Time Spent Total Time Spent (In Minutes): 35 minutes Discharge Plan Discharge Items Patient Disposition: Home - Self-Care Reason For Visit: NAUSEA, VOMITING, DIARRHEA, ETOH WITHDRAWL Discharge Diagnosis: Mild colitis Discharge Goals: Prevent disease and Specific goals Specific Goals: Quit Alcohol,Recreational drugs, smoking Activity: Resume your previous activity Non-emergency contact: Primary Care Provider Call non-emergency contact if: your symptoms worsen Follow-up/Referrals: Liyah Oseguera MD [Primary Care Provider] - 10/04/18 9:45 am Diet: Low Sodium (2gm) Addtl Provider Instructions: MEDICATION CHANGES None QUIT Smoking, Marijuana, Recreational drugs and Alcohol Prescriptions: New multivitamin [Daily-Elise] Tablet 1 tab PO QAM 30 Days Qty: 30 RF: 0 thiamine HCl (vitamin B1) [Vitamin B-1] 100 mg Tablet 100 mg PO QAM 20 Days Qty: 20 RF: 0 folic acid 1 mg Tablet 1 mg PO QAM 30 Days Qty: 30 RF: 0 Continued thiamine HCl (vitamin B1) [Vitamin B-1] 100 mg tablet PO DAILY RF: 0 omeprazole 40 mg Capsule,Delayed Release(Dr/Ec) 40 mg PO QAM RF: 0 ranitidine HCl 150 mg Tablet 150 mg PO QAM RF: 0 gabapentin [Neurontin] 100 mg Capsule 300 mg PO TID RF: 0 polyethylene glycol 3350 17 gram/dose powder 17 g PO DAILY PRN (Reason: Constipation) RF: 0 sennosides-docusate sodium [Senna with Docusate Sodium] 8.6-50 mg Tablet 2 tab PO DAILY PRN (Reason: Constipation) RF: 0 albuterol sulfate [Proventil HFA] 90 mcg/actuation Hfa Aerosol Inhaler 2 puff Inhalation Q4H PRN (Reason: Shortness Of Breath) RF: 0 fluoxetine 10 mg capsule 10 mg PO DAILY RF: 0 atorvastatin 20 mg tablet 20 mg PO DAILY RF: 0 carvedilol 3.125 mg Tablet 3.125 mg PO BID 30 Days Qty: 60 RF: 3 lisinopril 20 mg Tablet 20 mg PO DAILY RF: 0 Visit Report Forms: Smoking Cessation Stand-Alone Forms: [facility] Discharge Orders: Discharge Order (Routine); Ordered 10/01/18 Ordered By: Soledad Palma Admission Data Admit Date/Time: 09/30/18 14:18 Attending Provider: Soledad Palma Admit Provider: Soledad Palma Primary Care Provider: Liyah Oseguera Other Providers: Soledad Palma Service: Telemetry Medical Other Interventions: Discharge Summary Assessment (RN) Last Done: 10/01/18 14:43 Pending Studies at Discharge: No
[2018-10-02] MEDS ORDERED: GABAPENTIN 600 MG TAB PO SCH (18:00)
[2018-10-04] MEDS ORDERED: GABAPENTIN 600 MG TAB PO SCH (06:00)
[2018-10-04] MEDS ORDERED: GABAPENTIN 100 MG CAP PO SCH (14:00)
[2018-10-05 07:43] LABS: Cocaine, Urine 15300 NG/ML (CUTOFF=100); Marijuana Quant, GCMS Urine 97 NG/ML (CUTOFF=5)
== END 2018-10-01 16:29 | disposition home or self-care (01) | DRG 683 ==
LOC: ED 11:14 → 2S 14:18 → 2W 10-01 10:48

== ENCOUNTER 2018-10-30 21:14 | Inpatient (IN) ==
--- OUTSIDE RECORDS SUMMARY | 2018-10-30 21:17 | External Medical Summary | Continuity of Care Document ---
:1960 Author Name Vish Robins, Provider Address Unavailable Unavailable , Care Team Providers Name Role Phone Mamie Phillips M.D. [email or web address] PCP, [email or web address] Unavailable Unavailable Problems Active medical history not documented Allergies and Adverse Reactions Allergy history not documented Medications Medications not documented Procedures Procedures not documented Immunizations Immunizations not documented Plan of Treatment Planned Observations Planned Goals not documented Results No Known Results Results not documented
[2018-10-30 22:15] LABS: Basophils # (auto) 0.01 K/uL (0-0.2); Basophils % (auto) 0.1 %; Eosinophils # (auto) 0.09 K/uL (0-0.5); Eosinophils % (auto) 1.2 %; Hemoglobin 9.9 g/dL (14.0-18.0); Immature Granulocytes # (auto) 0.03 K/uL (0.00-0.02); Immature Granulocytes % (auto) 0.4 %; Lymphocytes # (auto) 2.44 K/uL (1.2-3.4); Lymphocytes % (auto) 31.4 %; Mean Corpuscular Hgb Conc 35.4 g/dL (32-36); Mean Corpuscular Volume 87.5 fL (80-100); Mean Platelet Volume 9.2 fL (7.4-10.4); Monocytes # (auto) 1.09 K/uL (0.11-0.59); Neutrophils # (auto) 4.11 K/uL (1.4-6.5); Neutrophils % (auto) 52.9 %; Nucleated RBC # (auto) 0.03 K/uL (0-0); Nucleated RBC % (auto) 0.4 %; Platelet Count 139 K/uL (130-400); RDW Coefficient of Variation 14.3 % (11.5-14.5); RDW Standard Deviation 44.9 fL (36.4-46.3); White Blood Count 7.77 K/uL (4.8-10.8)
[2018-10-30] MEDS ORDERED: SODIUM CHLORIDE 0.9% 1000ML 1,000 ML IV SCH (22:15)
[2018-10-30] MEDS ORDERED: MULTI-VITAMIN INFUSION 10 ML, THIAMINE HCL 100 MG, FOLIC ACID 1 MG in SODIUM CHLORIDE 0... IV SCH (22:15)
--- NOTE | 2018-10-30 22:30 | Emergency Department Note ---
History of Present Illness General Chief complaint: Illness Stated complaint: CHECK BLOOD LEVELS? VOMITING? History of Present Illness Maximum Pain Intensity: 8 This 58-year-old presents to the ER complaining of alcohol intoxication who is an alcoholic who feels dizzy and weak Location: Generalized Quality: Intoxicated Severity: Moderate Duration: Chronic Timing: Daily Context: Patient felt more weak than normal and came in Modifying factors: better with sitting; worse with activity Patient states he is an alcoholic. He drinks daily. Patient states he feels more weak and wobbly than normal. Patient denies chest pain, dyspnea, abdominal pain, localized weakness, fevers, flulike illness. He does complains of nausea and vomiting. No black or blood in the vomit. No black stool. Home Medications Home Medications Medication Instructions Recorded Confirmed Type gabapentin [Neurontin] 300 mg PO TID 02/21/18 10/30/18 History omeprazole 40 mg PO QAM 02/21/18 10/30/18 History ranitidine HCl 150 mg PO QAM 02/21/18 10/30/18 History albuterol sulfate [Proventil HFA] 2 puff INHALATION Q4H PRN 07/03/18 10/30/18 History fluoxetine 10 mg PO DAILY 07/03/18 10/30/18 History polyethylene glycol 3350 17 g PO DAILY PRN 07/03/18 10/30/18 History sennosides-docusate sodium [Senna 2 tab PO DAILY PRN 07/03/18 10/30/18 History with Docusate Sodium] thiamine HCl (vitamin B1) [Vitamin 100 mg PO QAM 10/07/18 10/30/18 History B-1] benzonatate [Tessalon Perles] 100 - 200 mg PO BID PRN 10/30/18 10/30/18 History carvedilol 3.125 mg PO DAILY 10/30/18 10/30/18 History hydrocortisone acet-aloe vera 1 applic TOPICAL DIRECTED PRN 10/30/18 10/30/18 History ketoconazole 1 applic TOPICAL DIRECTED PRN 10/30/18 10/30/18 History lisinopril 20 mg PO DAILY 10/30/18 10/30/18 History Allergies Allergy/AdvReac Type Severity Reaction Status Date / Time No Known Allergies Allergy Verified 10/30/18 22:40 Past Med/Surg History Medical History Depression (Chronic) 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 GERD (gastroesophageal reflux disease) Hx of hematuria Hx of pancreatitis Obesity Surgical History Hx of right BKA (Chronic) 2013 s/p fracture of tibia/fibula with associated infection Complete below knee amputation of right lower extremity History of mandibular surgery BROKEN JAW 1978 History of tooth extraction ALL TEETH REMOVED Family History Sister Family history of diabetes mellitus Brother Pancreatic carcinoma Social History Preferred Language: Surinamese Communication Ability: Effective Beliefs That Will Affect Care: None marital status: Single Current Living Situation: Family Current Living Situation Comment: sister and brother Feels Safe at Home: Yes Smoking Status: Never smoker Tobacco Type: cigarettes Cigarettes Per Day: 10-12 Second Hand Exposure: No Hx Alcohol Use: Yes Alcohol type: beer and hard liquor Alcohol Intake Frequency Comment: 12 pack of beer daily along with 1/5 of vodka Hx Substance Use: Yes substance use type: marijuana and crack/cocaine Review of Systems All systems reviewed & are unremarkable except as noted in HPI & below Physical Exam Vital Signs Vital Signs - 24 hr 10/30/18 21:21 10/30/18 22:22 10/30/18 23:06 Temperature 36.8 C Temperature Source Oral Sepsis Recent Fever Within 48 Hours No Sepsis Action Taken by Nursing No Action Required Pulse Rate 117 H Pulse Rate [Right Foot] 89 93 H Pulse Rhythm [Right Foot] Regular Pulse Strength [Right Foot] Normal Respiratory Rate 18 18 18 Respiratory Effort / Characteristics Non-Labored Non-Labored Non-Labored Respiratory Depth Normal Normal Normal Respiratory Pattern Regular Regular Blood Pressure 84/51 L Blood Pressure [Right Arm] 118/99 101/69 Blood Pressure Mean 62 Blood Pressure Mean [Right Arm] 105 79 Blood Pressure Position [Right Arm] Lying Lying Pulse Oximetry 97 99 94 Oxygen Delivery Method Room Air Room Air Room Air 10/31/18 00:30 Temperature Temperature Source Sepsis Recent Fever Within 48 Hours Sepsis Action Taken by Nursing Pulse Rate Pulse Rate [Right Foot] 91 H Pulse Rhythm [Right Foot] Regular Pulse Strength [Right Foot] Normal Respiratory Rate 18 Respiratory Effort / Characteristics Non-Labored Respiratory Depth Normal Respiratory Pattern Regular Blood Pressure Blood Pressure [Right Arm] 115/73 Blood Pressure Mean Blood Pressure Mean [Right Arm] 87 Blood Pressure Position [Right Arm] Lying Pulse Oximetry 93 Oxygen Delivery Method Room Air VITALS: Vitals are noted on the nurse's note and reviewed by myself. Vital signs reviewed. GENERAL: Male who smells of alcohol, in no acute distress, nondiaphoretic, well- developed well-nourished. SKIN: The skin was without rashes, erythema, edema, or bruising. There is no tenting of the skin. Capillary reflex less than 2 seconds. HEAD: Normocephalic atraumatic. EARS: External auditory canals clear, tympanic membranes pearly solorzano without erythema or effusion bilaterally. EYES: Pupils equal round and reactive to light and accommodation. Conjunctivae with injection, sclerae without icterus. Extraocular movements intact. NOSE: Patent, turbinates without inflammation or discharge. MOUTH: Mucous membranes dry. Pharynx without erythema or exudate. Uvula midline. Airway patent. Tongue does not deviate. NECK: Supple without nuchal rigidity. No lymphadenopathy. No thyromegaly. Cervical spine is nontender. No JVD. HEART: Regular rate and rhythm LUNGS: Clear to auscultation bilaterally without wheezes, rales or rhonchi. No retractions or accessory muscle use. ABDOMEN: Positive bowel sounds x 4. Normal tympanic percussion. Soft, nontender, without masses or organomegaly. Rivas sign negative. No guarding or rebound tenderness. No CVA tenderness MUSCULOSKELETAL: No muscle atrophy, erythema, or edema noted of the left leg. Right BKA NEURO: Patient was alert and oriented to person place and time. Normal sensation to light and sharp touch. No focal neurological deficits. Course Administered Medications Discontinued Medications Multivitamins 10 ml/ Thiamine HCl 100 mg/ Folic Acid 1 mg/Sodium Chloride 1,011.2 mls @ 1,011.2 mls/hr IV .Q1H RONEY Stop: 10/30/18 23:14 Last Infusion: 10/31/18 00:26 Dose: 0 mls/hr Documented by: [id number] Infusion: 10/31/18 00:25 Dose: 0 mls/hr Documented by: [id number] Admin: 10/30/18 23:22 Dose: 1,011.2 mls/hr Documented by: [id number] Sodium Chloride (Nss 1000ml) 1,000 mls @ 999 mls/hr IV .Q1H1M RONEY Stop: 10/30/18 23:15 Last Infusion: 10/31/18 00:32 Dose: 0 mls/hr Documented by: [id number] Admin: 10/30/18 22:10 Dose: 999 mls/hr Documented by: [id number] Magnesium Sulfate/Dextrose (Magnesium Sulfate / D5w) 1 gm in 100 mls @ 100 mls/hr IV ONE ONE Stop: 10/31/18 00:05 Last Infusion: 10/31/18 00:26 Dose: 0 mls/hr Documented by: [id number] Admin: 10/30/18 23:15 Dose: 100 mls/hr Documented by: [id number] Potassium Chloride (Klor-Con M10) 40 meq PO NOW STA Stop: 10/30/18 23:08 Last Admin: 10/30/18 23:15 Dose: 40 meq Documented by: [id number] Medical Decision Making Medical Records Attestation: I reviewed the patient's medical records. Home Medications Current Medication List: was personally reviewed by me Laboratory Data Attestation: I reviewed the patient's lab results. Result diagrams: 10/30/18 22:05 10/30/18 22:05 Lab Results 10/30/18 10/30/18 10/30/18 Range/Units 22:05 22:05 22:05 WBC 7.77 (4.8-10.8) K/uL RBC 3.20 L (4.7-6.1) M/uL Hgb 9.9 L (14.0-18.0) g/dL Hct 28.0 L (42-52) % MCV 87.5 (80-100) fL MCH 30.9 (25-34) pg MCHC 35.4 (32-36) g/dL RDW Std Deviation 44.9 (36.4-46.3) fL RDW Coeff of Miguel 14.3 (11.5-14.5) % Plt Count 139 (130-400) K/uL MPV 9.2 (7.4-10.4) fL Immature Gran % (Auto) 0.4 % Neut % (Auto) 52.9 % Lymph % (Auto) 31.4 % [place] % (Auto) 14.0 % Eos % (Auto) 1.2 % Baso % (Auto) 0.1 % Immature Gran # (Auto) 0.03 H (0.00-0.02) K/uL Neut # (Auto) 4.11 (1.4-6.5) K/uL Lymph # (Auto) 2.44 (1.2-3.4) K/uL [place] # (Auto) 1.09 H (0.11-0.59) K/uL Eos # (Auto) 0.09 (0-0.5) K/uL Baso # (Auto) 0.01 (0-0.2) K/uL Absolute Nucleated RBC 0.03 H (0-0) K/uL Nucleated RBC % (auto) 0.4 % PT 11.0 (9.0-12.0) Seconds INR 1.1 (0.9-1.1) APTT 30.5 (21.0-31.0) Seconds PTT Ratio 1.1 Sodium 120 L (136-145) mmol/L Potassium 2.7 L (3.5-5.1) mmol/L Chloride 80 L (98-107) mmol/L Carbon Dioxide 25 (21-32) mmol/L Anion Gap 16.0 H (3-11) BUN 17 (7-18) mg/dl Creatinine 4.68 H* (0.6-1.4) mg/dl Est Cr Clr Drug Dosing 17.9 ml/min Est GFR ( Amer) 15.0 Est GFR (Non-Af Amer) 13.0 BUN/Creatinine Ratio 3.7 L (10-20) Glucose 137 H (70-99) mg/dl Osmolality (280-300) mOsm/kg Calcium 7.9 L (8.5-10.1) mg/dl Magnesium 1.6 L (1.8-2.4) mg/dl Total Bilirubin 0.9 (0.2-1) mg/dl AST 59 H (15-37) U/L ALT 54 (12-78) U/L Alkaline Phosphatase 202 H (45-117) U/L Troponin I < 0.015 (0-0.045) ng/ml Total Protein 7.1 (6.4-8.2) gm/dl Albumin 3.3 L (3.4-5.0) gm/dl Globulin 3.8 (2.5-4.0) gm/dl Albumin/Globulin Ratio 0.9 (0.9-2) TSH 0.843 (0.300-4.500) uIu/ml Ethyl Alcohol mg/dL (0-3) mg/dl 10/30/18 10/30/18 10/30/18 Range/Units 22:05 22:43 23:30 WBC (4.8-10.8) K/uL RBC (4.7-6.1) M/uL Hgb (14.0-18.0) g/dL Hct (42-52) % MCV (80-100) fL MCH (25-34) pg MCHC (32-36) g/dL RDW Std Deviation (36.4-46.3) fL RDW Coeff of Miguel (11.5-14.5) % Plt Count (130-400) K/uL MPV (7.4-10.4) fL Immature Gran % (Auto) % Neut % (Auto) % Lymph % (Auto) % [place] % (Auto) % Eos % (Auto) % Baso % (Auto) % Immature Gran # (Auto) (0.00-0.02) K/uL Neut # (Auto) (1.4-6.5) K/uL Lymph # (Auto) (1.2-3.4) K/uL [place] # (Auto) (0.11-0.59) K/uL Eos # (Auto) (0-0.5) K/uL Baso # (Auto) (0-0.2) K/uL Absolute Nucleated RBC (0-0) K/uL Nucleated RBC % (auto) % PT (9.0-12.0) Seconds INR (0.9-1.1) APTT Cancelled (21.0-31.0) Seconds PTT Ratio Cancelled Sodium (136-145) mmol/L Potassium (3.5-5.1) mmol/L Chloride (98-107) mmol/L Carbon Dioxide (21-32) mmol/L Anion Gap (3-11) BUN (7-18) mg/dl Creatinine (0.6-1.4) mg/dl Est Cr Clr Drug Dosing ml/min Est GFR ( Amer) Est GFR (Non-Af Amer) BUN/Creatinine Ratio (10-20) Glucose (70-99) mg/dl Osmolality 295 (280-300) mOsm/kg Calcium (8.5-10.1) mg/dl Magnesium (1.8-2.4) mg/dl Total Bilirubin (0.2-1) mg/dl AST (15-37) U/L ALT (12-78) U/L Alkaline Phosphatase (45-117) U/L Troponin I (0-0.045) ng/ml Total Protein (6.4-8.2) gm/dl Albumin (3.4-5.0) gm/dl Globulin (2.5-4.0) gm/dl Albumin/Globulin Ratio (0.9-2) TSH (0.300-4.500) uIu/ml Ethyl Alcohol mg/dL 158.3 H (0-3) mg/dl Imaging Data Attestation: I personally reviewed and interpreted this imaging study as follows: MDM Narrative Prior records/ancillary studies reviewed and summarized above. Nursing notes reviewed. The patient's history was concerning for alcohol intoxication he feels more weak and wobbly than normal. Differential diagnosis: Etiologies such as alcoholism, polysubstance abuse, metabolic, infection, hypo/hyperglycemia, electrolyte abnormalities, cardiac sources, intracerebral event, toxicologic, neurologic, as well as others were entertained. Physical examination: As above. ER treatment provided: IV Lock IV fluids, banana bag On reassessment the patient felt better. Diagnostics interpretation by me: ECG: Normal sinus, prolonged QT, no acute ST-T wave changes, rate of 98. Impression normal sinus rhythm with a prolonged QT interpreted by myself The labs revealed creatinine 4.68 which is new Sodium 120 Imaging studies: XR chest 1V portable CLINICAL HISTORY: 58 years-old Male presenting with weakness. TECHNIQUE: Portable upright AP view of the chest was obtained. COMPARISON: 09/30/2018. FINDINGS: Cardiac silhouette mildly enlarged. No focal opacity. No large effusion or pneumothorax. Osseous structures normal. Upper abdomen normal. IMPRESSION: 1. Mild cardiomegaly. No other convincing evidence of acute cardiopulmonary disease. Electronically signed by: Abner Buenrostro M.D. 10/30/2018 10:[address] head/brain wo con CLINICAL HISTORY: 58 years-old Male presenting with weak/dizzy. TECHNIQUE: Multidetector CT imaging of the head was performed without the use of intravenous contrast. IV contrast: None. One or more dose lowering techniques were used consistent with the principles of ALARA (as low as reasonably achievable), including automatic exposure control, mA or kV adjustment to individual patient size, and/or use of iterative reconstruction. COMPARISON: 12/20/2016. CT DOSE (mGy.cm): The estimated cumulative dose is 773.57 mGy.cm. 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 Ventricles and sulci normal in size. No hemorrhage. Periventricular and subcortical white matter hypoattenuation, nonspecific but likely indicative of chronic small vessel ischemic change. No acute territorial infarct. No mass effect or midline shift. No extra-axial fluid collection. Paranasal sinuses and mastoid air cells clear. Calvarium intact. IMPRESSION: 1. Chronic small vessel ischemic change. No acute intracranial abnormality. Electronically signed by: Abner Buenrostro M.D. 10/30/2018 10:32 PM Dictated: 10/30/189 Consultation: A consultation was placed with the hospitalist, Dr Kemp. The case was discussed and diagnostics were reviewed. The patient was evaluated in the ER for further treatment. Exam and history seem consistent with acute renal failure and hyponatremia. Medicine was consulted. Patient is agreeable treatment plan of admission. Patient has been unable to supply a urine sample. Patient was given magnesium and potassium. He was hydrated as above. Banana bag was ordered. Patient states he did use cocaine just prior to arrival along with smoking marijuana. By the evaluation outlined above emergent etiologies such as cardiac sources, intracerebral event, toxologic, neurologic, abnormalities blood glucose, as well as others were deemed relatively unlikely. The pt informed about the findings as listed above. All questions were answered and pleased with the treatment. Case reviewed with my attending The chart was completed utilizing [employer] voice recognition software. Grammatical errors, random word insertions, pronoun errors, and incomplete sentences are an occassional consequence of this system due to software limitations, ambient noise, and hardware issues. Any formal questions or concerns about the content, text, or information contained within the body of this dictation should be directly addressed to the physician multimedia production assistant for clarification. Impression & Plan Acute renal failure, Acute hyponatremia Discharge Plan Visit Data Chief Complaint: Illness Stated Complaint: CHECK BLOOD LEVELS? VOMITING? ED Provider: Kevin Phillips ED Midlevel Provider: Idalia Echevarria Discharge Problem: Acute renal failure, Acute hyponatremia Patient Disposition: Admitted As Inpatient Condition: Fair Forms Stand Alone Forms: [facility] CC video Prescriptions Prescriptions: No Action omeprazole 40 mg Capsule,Delayed Release(Dr/Ec) 40 mg PO QAM RF: 0 ranitidine HCl 150 mg Tablet 150 mg PO QAM RF: 0 gabapentin [Neurontin] 100 mg Capsule 300 mg PO TID RF: 0 polyethylene glycol 3350 17 gram/dose powder 17 g PO DAILY PRN (Reason: Constipation) RF: 0 sennosides-docusate sodium [Senna with Docusate Sodium] 8.6-50 mg Tablet 2 tab PO DAILY PRN (Reason: Constipation) RF: 0 albuterol sulfate [Proventil HFA] 90 mcg/actuation Hfa Aerosol Inhaler 2 puff Inhalation Q4H PRN (Reason: Shortness Of Breath) RF: 0 fluoxetine 10 mg capsule 10 mg PO DAILY RF: 0 thiamine HCl (vitamin B1) [Vitamin B-1] 100 mg tablet 100 mg PO QAM RF: 0 lisinopril 20 mg Tablet 20 mg PO DAILY RF: 0 carvedilol 3.125 mg Tablet 3.125 mg PO DAILY RF: 0 benzonatate [Tessalon Perles] 100 mg Capsule 100 - 200 mg PO BID PRN (Reason: Cough) RF: 0 ketoconazole 2 % Cream 1 applic TOPICAL DIRECTED PRN (Reason: Skin Irritation) RF: 0 hydrocortisone acet-aloe vera 2 % Lotion 1 applic TOPICAL DIRECTED PRN (Reason: Skin Irritation) RF: 0 Referrals Referrals: Liyah Oseguera MD [Primary Care Provider] - Discharge Problem: Acute renal failure Qualifiers: Acute renal failure type: unspecified Qualified Code(s): N17.9 - Acute kidney failure, unspecified
[2018-10-30 22:31] LABS: INR 1.1 (0.9-1.1); Partial Thromboplastin Ratio 1.1; Partial Thromboplastin Time 30.5 Seconds (21.0-31.0)
--- NOTE | 2018-10-30 22:33 | CT Scan Report ---
CT head/brain wo con CLINICAL HISTORY: 58 years-old Male presenting with weak/dizzy. TECHNIQUE: Multidetector CT imaging of the head was performed without the use of intravenous contrast . IV contrast: None. One or more dose lowering techniques were used consistent with the principles of ALARA (as low as reasonably achievable), including automatic exposure control, mA or kV adjustment t o individual patient size, and/or use of iterative reconstruction. COMPARISON: 12/20/2016. CT DOSE (mGy.cm): The estimated cumulative dose is 773.57 mGy.cm. 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 Ventricles and sulci normal in size. No hemorrhage. Periventricular and subcortical white matter hypo attenuation, nonspecific but likely indicative of chronic small vessel ischemic change. No acute terr itorial infarct. No mass effect or midline shift. No extra-axial fluid collection. Paranasal sinuses and mastoid air cells clear. Calvarium intact. IMPRESSION: 1. Chronic small vessel ischemic change. No acute intracranial abnormality. Electronically signed by: Abner Buenrostro M.D. 10/30/2018 10:32 PM
[2018-10-30 22:58] LABS: Alanine Aminotransferase 54 U/L (12-78); Albumin Globulin Ratio 0.9 (0.9-2); Albumin Level 3.3 gm/dl (3.4-5.0); Alkaline Phosphatase 202 U/L (45-117); Aspartate Aminotransferase 59 U/L (15-37); BUN Creatinine Ratio 3.7 (10-20); Bilirubin,Total 0.9 mg/dl (0.2-1); Blood Urea Nitrogen 17 mg/dl (7-18); Calcium 7.9 mg/dl (8.5-10.1); Carbon Dioxide 25 mmol/L (21-32); Chloride 80 mmol/L (98-107); Creatinine Clr Calc Pharmacy 17.9 ml/min; Globulin 3.8 gm/dl (2.5-4.0); Glucose 137 mg/dl (70-99); Magnesium 1.6 mg/dl (1.8-2.4); Potassium 2.7 mmol/L (3.5-5.1); Sodium 120 mmol/L (136-145); Total Protein 7.1 gm/dl (6.4-8.2); Troponin I < 0.015 ng/ml (0-0.045)
--- NOTE | 2018-10-30 22:59 | XRay Report ---
XR chest 1V portable CLINICAL HISTORY: 58 years-old Male presenting with weakness. TECHNIQUE: Portable upright AP view of the chest was obtained. COMPARISON: 09/30/2018. FINDINGS: Cardiac silhouette mildly enlarged. No focal opacity. No large effusion or pneumothorax. Osseous stru ctures normal. Upper abdomen normal. IMPRESSION: 1. Mild cardiomegaly. No other convincing evidence of acute cardiopulmonary disease. Electronically signed by: Abner Buenrostro M.D. 10/30/2018 10:58 PM
[2018-10-30] MEDS ORDERED: MAGNESIUM SULFATE / D5W 1 GM/100 ML BAG IV ONE (23:06)
[2018-10-30] MEDS ORDERED: POTASSIUM CHLORIDE 20 MEQ TABCR PO STA (23:07)
[2018-10-30] MEDS ORDERED: POTASSIUM CHLORIDE 10 MEQ TABCR PO STA (23:07)
[2018-10-31 00:40] LABS: Reticulocyte % 1.9 % (0.5-2.0); Reticulocytes # 0.05 10^6/uL (0.02-0.10)
--- NOTE | 2018-10-31 00:49 | History & Physical Report ---
Date of Service October 31, 2018 Assessment & Plan (1) Acute hyponatremia: ? Acute on chronic Hypovolemia, ARF Alcohol abuse hypertension, patient hypotensive upon arrival at the ER Hypokalemia, hypomagnesemia secondary to clinical dehydration Acute on chronic anemia Hemoglobin drop from baseline Stool Hemoccult negative Ongoing tobacco abuse Medical telemetry Careful correction of sodium Hyponatremia work-up Nephrology consult RE hyponatremia Baseline UA, monitor creatinine response to IV fluids, hold home SAVI inhibitor until creatinine baseline Replace electrolytes DT precautions Anemia work-up Nicotine patch as needed. DVT prophylaxis. Heparin subcu Full code History of Present Illness Chief Complaint: Dizziness, weakness as per records Primary Care Provider: Liyah Oseguera MD History obtained from ER provider and records. Unable to obtain history from patient secondary to intoxicated state. Medical history significant for hypertension, hyperlipidemia, ongoing tobacco/alcohol abuse, pancreatitis as per records. Recent confinement last month for hyponatremia, pancreatitis. Patient consulted ER yesterday because of feeling more weak and wobbly than normal. Denies chest pain, S OB, abdominal pain. Patient had nausea and emesis as per ER records. Medical History as above Surgical History : right BKA Family History : Alcoholism Personal/Social history : Ongoing tobacco/alcohol abuse as per records, continues as per records, lives with sister Allergies Allergy/AdvReac Type Severity Reaction Status Date / Time No Known Allergies Allergy Verified 10/30/18 22:40 Home Medications Home Medications Medication Instructions Recorded Confirmed Type gabapentin [Neurontin] 300 mg PO TID 02/21/18 10/30/18 History omeprazole 40 mg PO QAM 02/21/18 10/30/18 History ranitidine HCl 150 mg PO QAM 02/21/18 10/30/18 History albuterol sulfate [Proventil HFA] 2 puff INHALATION Q4H PRN 07/03/18 10/30/18 History fluoxetine 10 mg PO DAILY 07/03/18 10/30/18 History polyethylene glycol 3350 17 g PO DAILY PRN 07/03/18 10/30/18 History sennosides-docusate sodium [Senna 2 tab PO DAILY PRN 07/03/18 10/30/18 History with Docusate Sodium] thiamine HCl (vitamin B1) [Vitamin 100 mg PO QAM 10/07/18 10/30/18 History B-1] benzonatate [Tessalon Perles] 100 - 200 mg PO BID PRN 10/30/18 10/30/18 History carvedilol 3.125 mg PO DAILY 10/30/18 10/30/18 History hydrocortisone acet-aloe vera 1 applic TOPICAL DIRECTED PRN 10/30/18 10/30/18 History ketoconazole 1 applic TOPICAL DIRECTED PRN 10/30/18 10/30/18 History lisinopril 20 mg PO DAILY 10/30/18 10/30/18 History Past Med/Surg History Medical History Depression (Chronic) 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 GERD (gastroesophageal reflux disease) Hx of hematuria Hx of pancreatitis Obesity Surgical History Hx of right BKA (Chronic) 2013 s/p fracture of tibia/fibula with associated infection Complete below knee amputation of right lower extremity History of mandibular surgery BROKEN JAW 1978 History of tooth extraction ALL TEETH REMOVED Family History Sister Family history of diabetes mellitus Brother Pancreatic carcinoma Social History Preferred Language: Algerian Communication Ability: Effective Senior Financial Accountant Required: No Beliefs That Will Affect Care: None marital status: Single Current Living Situation: Family Current Living Situation Comment: sister and brother Feels Safe at Home: Yes Safety Concerns: Feels Safe At This Time Smoking Status: Current some day smoker Tobacco Type: cigarettes Cigarettes Per Day: 10-12 Second Hand Exposure: No Hx Alcohol Use: Yes Alcohol type: beer and hard liquor Alcohol Intake Frequency Comment: 12 pack of beer daily along with 1/5 of vodka Hx Substance Use: Yes substance use type: marijuana and crack/cocaine Review of Systems Review of Systems: Could not be reliably obtained Physical Exam Physical Exam: GENERAL: Intoxicated, no respiratory distress SKIN: Pallor, warm HEENT: Partial alopecia, pink palpebral conjunctivae, no ptosis, dry buccal mucosa NECK : Supple, short neck, no tenderness CHEST : Decreased breath sounds, no tenderness HEART : RRR, no obvious murmurs ABDOMEN: Some distention, nontender Rectal: Intact sphincter, yellow stool, heme-negative EXTREMITIES : Right BKA stump, no other conspicuous deformities noted NEUROLOGIC : Intoxicated, miotic pupils, no facial asymmetry, no other gross focality Results & Data Vital Signs (Past 12 Hours) Vital Signs Temp Pulse Pulse Resp BP BP Pulse Ox 10/31/18 00:30 91 H 18 115/73 93 10/30/18 23:06 93 H 18 101/69 94 10/30/18 22:22 89 18 118/99 99 10/30/18 21:21 36.8 C 117 H 18 84/51 L 97 Laboratory Results Laboratory Results WBC 7.77 K/uL (4.8-10.8) 10/30/18 22:05 RBC 3.20 M/uL (4.7-6.1) L 10/30/18 22:05 Hgb 9.9 g/dL (14.0-18.0) L 10/30/18 22:05 Hct 28.0 % (42-52) L 10/30/18 22:05 MCV 87.5 fL (80-100) 10/30/18 22:05 MCH 30.9 pg (25-34) 10/30/18 22:05 MCHC 35.4 g/dL (32-36) 10/30/18 22:05 RDW Std Deviation 44.9 fL (36.4-46.3) 10/30/18 22:05 RDW Coeff of Miguel 14.3 % (11.5-14.5) 10/30/18 22:05 Plt Count 139 K/uL (130-400) 10/30/18 22:05 MPV 9.2 fL (7.4-10.4) 10/30/18 22:05 Immature Gran % (Auto) 0.4 % 10/30/18 22:05 Neut % (Auto) 52.9 % 10/30/18 22:05 Lymph % (Auto) 31.4 % 10/30/18 22:05 [place] % (Auto) 14.0 % 10/30/18 22:05 Eos % (Auto) 1.2 % 10/30/18 22:05 Baso % (Auto) 0.1 % 10/30/18 22:05 Reticulocyte % (Auto) 1.9 % (0.5-2.0) 10/31/18 00:27 Immature Gran # (Auto) 0.03 K/uL (0.00-0.02) H 10/30/18 22:05 Neut # (Auto) 4.11 K/uL (1.4-6.5) 10/30/18 22:05 Lymph # (Auto) 2.44 K/uL (1.2-3.4) 10/30/18 22:05 [place] # (Auto) 1.09 K/uL (0.11-0.59) H 10/30/18 22:05 Eos # (Auto) 0.09 K/uL (0-0.5) 10/30/18 22:05 Baso # (Auto) 0.01 K/uL (0-0.2) 10/30/18 22:05 Reticulocyte # 0.05 10^6/uL (0.02-0.10) 10/31/18 00:27 Absolute Nucleated RBC 0.03 K/uL (0-0) H 10/30/18 22:05 Nucleated RBC % (auto) 0.4 % 10/30/18 22:05 PT 11.0 Seconds (9.0-12.0) 10/30/18 22:05 INR 1.1 (0.9-1.1) 10/30/18 22:05 APTT 30.5 Seconds (21.0-31.0) 10/30/18 22:05 PTT Ratio 1.1 10/30/18 22:05 Sodium 120 mmol/L (136-145) L 10/30/18 22:05 Potassium 2.7 mmol/L (3.5-5.1) L 10/30/18 22:05 Chloride 80 mmol/L (98-107) L 10/30/18 22:05 Carbon Dioxide 25 mmol/L (21-32) 10/30/18 22:05 Anion Gap 16.0 (3-11) H 10/30/18 22:05 BUN 17 mg/dl (7-18) 10/30/18 22:05 Creatinine 4.68 mg/dl (0.6-1.4) H* 10/30/18 22:05 Est Cr Clr Drug Dosing 17.9 ml/min 10/30/18 22:05 Est GFR ( Amer) 15.0 10/30/18 22:05 Est GFR (Non-Af Amer) 13.0 10/30/18 22:05 BUN/Creatinine Ratio 3.7 (10-20) L 10/30/18 22:05 Glucose 137 mg/dl (70-99) H 10/30/18 22:05 Osmolality 295 mOsm/kg (280-300) 10/30/18 23:30 Calcium 7.9 mg/dl (8.5-10.1) L 10/30/18 22:05 Magnesium 1.6 mg/dl (1.8-2.4) L 10/30/18 22:05 Total Bilirubin 0.9 mg/dl (0.2-1) 10/30/18 22:05 AST 59 U/L (15-37) H 10/30/18 22:05 ALT 54 U/L (12-78) 10/30/18 22:05 Alkaline Phosphatase 202 U/L (45-117) H 10/30/18 22:05 Troponin I < 0.015 ng/ml (0-0.045) 10/30/18 22:05 Total Protein 7.1 gm/dl (6.4-8.2) 10/30/18 22:05 Albumin 3.3 gm/dl (3.4-5.0) L 10/30/18 22:05 Globulin 3.8 gm/dl (2.5-4.0) 10/30/18 22:05 Albumin/Globulin Ratio 0.9 (0.9-2) 10/30/18 22:05 Folate Cancelled 10/31/18 00:27 TSH 0.843 uIu/ml (0.300-4.500) 10/30/18 22:05 Ethyl Alcohol mg/dL 158.3 mg/dl (0-3) H 10/30/18 22:43 Diagnostic Findings Chest x-ray: Cardiomegaly CT head: Chronic small vessel ischemic change. No acute intracranial abnormality.
[2018-10-31] MEDS ORDERED: ACETAMINOPHEN 325 MG TAB PO PRN (00:53)
[2018-10-31] MEDS ORDERED: NITROGLYCERIN SL 0.4 MG/TAB TAB SL PRN (00:53)
[2018-10-31] MEDS ORDERED: LORazepam 3 MG/6 ML VIAL IV PRN (00:56)
[2018-10-31] MEDS ORDERED: LORazepam 2 MG/4 ML VIAL IV PRN (00:56)
[2018-10-31] MEDS ORDERED: LORazepam 1 MG/2 ML VIAL IV PRN ×2 (00:56→08:40)
[2018-10-31] MEDS ORDERED: ATIVAN IV ALCOHOL WITHDRAWL IV SCH (01:00)
[2018-10-31] MEDS ORDERED: PROMETHAZINE HCL 12.5 MG in SODIUM CHLORIDE 0.9% 50 ML IV PRN (01:01)
[2018-10-31] MEDS ORDERED: OXYCODONE HCL IR 5 MG TAB (IMMEDIATE RELEASE) PO PRN (01:01)
[2018-10-31 01:06] LABS: BUN Creatinine Ratio 4.1 (10-20); Calcium 6.4 mg/dl (8.5-10.1); Est GFR (African American) 18.3; Est GFR (Non-African American) 15.8; Ferritin 1075.9 ng/ml (8-388)
[2018-10-31 01:52] LABS: Potassium 2.6 mmol/L (3.5-5.1)
[2018-10-31] MEDS ORDERED: DOCUSATE SODIUM/SENNA 50/8.6MG TAB PO PRN (01:55)
[2018-10-31] MEDS ORDERED: POLYETHYLENE (MIRALAX) 17 GM PACK PO PRN (01:55)
[2018-10-31] MEDS: POTASSIUM CHLORIDE / WTR 10 MEQ/100 ML PLCT IV SCH ×8 (02:11→10:21)
[2018-10-31] MEDS ORDERED: NORMOSOL-R 1,000 ML IV SCH (02:27)
[2018-10-31 02:32] LABS: Appearance Urine Clear (Clear); Bacteria Urine Automated Negative (Negative); Bilirubin Urine Negative (Negative); Blood Urine Trace (Negative); Color Urine Yellow; Glucose Urine UA Negative (Negative); Ketones Urine Negative (Negative); Leukocyte Esterase Urine Trace (Negative); Nitrite Urine Negative (Negative); Protein Urine Negative (Negative); RBC Urine Automated 0-4 /hpf (0-4); Specific Gravity Urine 1.014 (1.000-1.030); Urobilinogen Urine Negative (Negative)
[2018-10-31 02:49] LABS: Amphetamines+Metham, Urine Neg (Neg); Barbiturates, Urine Neg (Neg); Benzodiazepine, Urine Neg (Neg); Cocaine, Urine Pos (Neg); MDMA (Ecstacy), Urine Neg (Neg); Methadone, Urine Neg (Neg); Opiate, Urine Neg (Neg); Phencyclidine, Urine Neg (Neg)
[2018-10-31 02:51] LABS: Folate (Folic Acid) > 24.00 ng/ml (>5.38); Vitamin B12 565 pg/ml (211-911)
[2018-10-31] MEDS: HEPARIN SOD 5,000 UNIT/0.5 ML VIAL SQ SCH ×3 (06:01→21:36)
[2018-10-31 06:17] LABS: Basophils # (auto) 0.01 K/uL (0-0.2); Basophils % (auto) 0.1 %; Eosinophils # (auto) 0.17 K/uL (0-0.5); Eosinophils % (auto) 2.5 %; Hematocrit (blood only) 25.2 % (42-52); Immature Granulocytes # (auto) 0.01 K/uL (0.00-0.02); Immature Granulocytes % (auto) 0.1 %; Lymphocytes # (auto) 2.85 K/uL (1.2-3.4); Mean Corpuscular Hgb Conc 35.7 g/dL (32-36); Mean Corpuscular Volume 86.6 fL (80-100); Mean Platelet Volume 8.9 fL (7.4-10.4); Monocytes # (auto) 0.94 K/uL (0.11-0.59); Monocytes % (auto) 13.8 %; Neutrophils # (auto) 2.81 K/uL (1.4-6.5); Neutrophils % (auto) 41.5 %; Platelet Count 119 K/uL (130-400); RDW Coefficient of Variation 14.1 % (11.5-14.5); RDW Standard Deviation 44.5 fL (36.4-46.3); Red Blood Count 2.91 M/uL (4.7-6.1); White Blood Count 6.79 K/uL (4.8-10.8)
[2018-10-31 06:26] LABS: Estimated Average Glucose 154 mg/dl
[2018-10-31 07:02] LABS: Albumin Level 2.7 gm/dl (3.4-5.0); BUN Creatinine Ratio 5.2 (10-20); Calcium 7.2 mg/dl (8.5-10.1); Est GFR (African American) 22.5; Est GFR (Non-African American) 19.4; Magnesium 1.7 mg/dl (1.8-2.4); Potassium 3.3 mmol/L (3.5-5.1)
[2018-10-31] MEDS: THIAMINE HCL 100 MG TAB PO SCH (08:09)
[2018-10-31] MEDS: PANTOprazole 40 MG TAB PO SCH (08:09)
[2018-10-31] MEDS: FOLIC ACID 1 MG TAB PO SCH (08:09)
[2018-10-31] MEDS: MULTIVITAMIN TAB PO SCH (08:09)
[2018-10-31] MEDS: CARVEDILOL 3.125 MG TAB PO SCH (08:10)
[2018-10-31] MEDS ORDERED: SODIUM CHLORIDE 0.9% 1000ML 1,000 ML IV SCH (08:30)
[2018-10-31] MEDS ORDERED: POTASSIUM CHLORIDE 10 MEQ TABCR PO STA (08:30)
[2018-10-31] MEDS ORDERED: GABAPENTIN 600MG ALCOHOL WITHDRAWAL LOAD PO STA (08:40)
[2018-10-31] MEDS ORDERED: FLUOXETINE HCL 10 MG CAP PO SCH (09:00)
[2018-10-31] MEDS ORDERED: GABAPENTIN 600 MG TAB PO ONE (09:00)
[2018-10-31] MEDS ORDERED: GABAPENTIN 100 MG CAP PO SCH (09:00)
[2018-10-31] MEDS: GABAPENTIN 100 MG CAP PO SCH ×2 (15:34→20:36)
[2018-10-31] MEDS ORDERED: LOPERAMIDE HCL 2 MG CAP PO PRN (17:27)
--- NOTE | 2018-10-31 18:06 | Nephrology Consultation ---
Date of Consultation October 31, 2018 Assessment & Plan (1) Acute renal failure: baseline creatinine 0.9-1.0 >> presenting creat 4.7, improving by this am to 3.4. had IDALIA also during admission last month; now w/ recurrence; appears to be prerenal and improving >> await recheck bmp in process; agree w/ holding acei; do note microhematuria on UA which may need OP f/u -currently on no ivf Present on Admission?: Yes (2) Alcoholism: cause of recurrent admissions; per primary service to monitor for withdrawal; active intoxication on presentation complicates hyponatremia dx Present on Admission?: Yes (3) Hyponatremia syndrome: sNa 120 on presentation; cannot call this acute hyponatremia b/c we have pt w/ known labile sodium levels and no documented sodium level 48 hrs prior to presentation; also of note he had normal serum osms and urine studies c/w excess fluid intake. sNa 129 today midday >> difficult to assess true changes in status d/t changes in serum osms as EtOH clears his system -consider sNa artificially depressed d/t extra serum osms from EtOH -ordered urgent recheck of bmp and serum osms now (1800) to reassess status, establish goals for Na correction -maintain normal K values >> likely to need more K Present on Admission?: Yes History of Present Illness Reason for Consultation: hyponatremia Requesting Physician: Dr Taylor Attending Physician: Sergio Chávez MD History of Present Illness 58 y/o M whom I'm asked to see for hyponatremia after he was admitted here last evening w/ EtOH intoxication and found to have presenting sodium 120 last evening at 2200. Of note, serum osms an hour after sNa 120 were normal. sNa improved by this am to 126 at 0600 and 129 by this evening. His creatinine was 4.7 on presentation last evening, improved to 3.4 by this am. His last known sNa was 138 on 10/07/18 on OP labs w/ creatinine same day 1.1. PMH includes htn, HL, active EtOH abuse, active tobacco abuse, depression, hx of THC and cocaine abuse, recurrent pancreatitis, R BKA 2013 after infection. He had EtOH withdrawal admission here 06/2018 and was d/c to drug/etoh rehab. He was also obs'd/ admitted here from 09/30-10/01 for abdominal pain w/ n/v and IDALIA (presenting creatinine 1.5) as well as sNa 123, improved to 131 by d/c. At September admission he acknolwedged cocaine use and tested + for same on drug screen. Allergies Allergy/AdvReac Type Severity Reaction Status Date / Time No Known Allergies Allergy Verified 10/30/18 22:40 Home Medications Home Medications Medication Instructions Recorded Confirmed Type gabapentin [Neurontin] 300 mg PO TID 02/21/18 10/30/18 History omeprazole 40 mg PO QAM 02/21/18 10/30/18 History ranitidine HCl 150 mg PO QAM 02/21/18 10/30/18 History albuterol sulfate [Proventil HFA] 2 puff INHALATION Q4H PRN 07/03/18 10/30/18 History fluoxetine 10 mg PO DAILY 07/03/18 10/30/18 History polyethylene glycol 3350 17 g PO DAILY PRN 07/03/18 10/30/18 History sennosides-docusate sodium [Senna 2 tab PO DAILY PRN 07/03/18 10/30/18 History with Docusate Sodium] thiamine HCl (vitamin B1) [Vitamin 100 mg PO QAM 10/07/18 10/30/18 History B-1] benzonatate [Tessalon Perles] 100 - 200 mg PO BID PRN 10/30/18 10/30/18 History carvedilol 3.125 mg PO DAILY 10/30/18 10/30/18 History hydrocortisone acet-aloe vera 1 applic TOPICAL DIRECTED PRN 10/30/18 10/30/18 History ketoconazole 1 applic TOPICAL DIRECTED PRN 10/30/18 10/30/18 History lisinopril 20 mg PO DAILY 10/30/18 10/30/18 History Patient History Medical History Depression (Chronic) 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 GERD (gastroesophageal reflux disease) Hx of hematuria Hx of pancreatitis Obesity Surgical History Hx of right BKA (Chronic) 2013 s/p fracture of tibia/fibula with associated infection Complete below knee amputation of right lower extremity History of mandibular surgery BROKEN JAW 1979 History of tooth extraction ALL TEETH REMOVED Family History Sister Family history of diabetes mellitus Brother Pancreatic carcinoma Social History Preferred Language: Turkish Communication Ability: Effective General Practitioner Required: No Beliefs That Will Affect Care: None marital status: Single Current Living Situation: Family Current Living Situation Comment: sister and brother Feels Safe at Home: Yes Safety Concerns: Feels Safe At This Time Smoking Status: Current some day smoker Tobacco Type: cigarettes Cigarettes Per Day: 10-12 Second Hand Exposure: No Hx Alcohol Use: Yes Alcohol type: beer and hard liquor Alcohol Intake Frequency Comment: 12 pack of beer daily along with 1/5 of vodka Hx Substance Use: Yes substance use type: marijuana and crack/cocaine Review of Systems Constitutional: no fever, no fatigue, no weakness and no anorexia Eyes: no worsening vision Ear, Nose, Mouth, Throat: no dry mouth Respiratory: no cough, no dyspnea and no pain on inspiration Cardiovascular: no palpitations and no edema Gastrointestinal: endorses a few days of emesis, watery diarrhea [employer]BER [employer], now resolved Genitourinary: no dysuria, no urinary frequency and no urinary hesitancy Integumentary: no rash and no non-healing lesions Neurologic: no localized weakness and no generalized weakness Physical Exam Constitutional: well developed and well nourished; no acute distress Eyes: no EOM movement deficit ENMT: Mouth: + dry oral mucous membranes Neck: no nuchal rigidity Respiratory: normal respiratory effort, lungs clear to auscultation Auscultation: + diminished lung sounds Cardiovascular: RRR, no murmur, no edema Gastrointestinal (Abdomen): normal bowel sounds, soft, nontender, no hepatosplenomegaly Musculoskeletal: landry, fluent speech, R BKA, restless limbs in bed Skin: no rashes, warm and dry Neurologic: landry, fluent speech though at times hard to understand >?edentulous Results & Data Vital Signs (Past 12 Hours) Vital Signs Temp Pulse Pulse Resp BP Pulse Ox 10/31/18 16:54 36.6 C 71 20 133/83 96 10/31/18 16:00 96 H 10/31/18 11:53 36.6 C 95 H 18 118/79 96 10/31/18 07:31 37.4 C 106 H 96 H 20 129/79 96 10/31/18 06:51 37.3 C 92 H 17 119/75 95 Laboratory Results Abnormal lab results 10/30/18 10/30/18 10/30/18 Range/Units 22:05 22:05 22:43 RBC 3.20 L (4.7-6.1) M/uL Hgb 9.9 L (14.0-18.0) g/dL Hct 28.0 L (42-52) % Plt Count (130-400) K/uL Immature Gran # (Auto) 0.03 H (0.00-0.02) K/uL [place] # (Auto) 1.09 H (0.11-0.59) K/uL Absolute Nucleated RBC 0.03 H (0-0) K/uL Sodium 120 L (136-145) mmol/L Potassium 2.7 L (3.5-5.1) mmol/L Chloride 80 L (98-107) mmol/L Anion Gap 16.0 H (3-11) Creatinine 4.68 H* (0.6-1.4) mg/dl BUN/Creatinine Ratio 3.7 L (10-20) Glucose 137 H (70-99) mg/dl Hemoglobin A1c (4.5-5.6) % Calcium 7.9 L (8.5-10.1) mg/dl Magnesium 1.6 L (1.8-2.4) mg/dl TIBC (250-450) mcg/dl Transferrin (200-360) mg/dl Ferritin (8-388) ng/ml AST 59 H (15-37) U/L Alkaline Phosphatase 202 H (45-117) U/L Albumin 3.3 L (3.4-5.0) gm/dl Urine Blood (Negative) Ur Leukocyte Esterase (Negative) Urine WBC (Auto) (0-5) /hpf U Epithel Cells (Auto) (0-5) /lpf Urine Osmolality (500-800) mOsm/kg Ur Cocaine Metabolite (Neg) U Marijuana (THC) Screen (Neg) Ethyl Alcohol mg/dL 158.3 H (0-3) mg/dl 10/31/18 10/31/18 10/31/18 Range/Units 00:27 00:27 01:34 RBC (4.7-6.1) M/uL Hgb (14.0-18.0) g/dL Hct (42-52) % Plt Count (130-400) K/uL Immature Gran # (Auto) (0.00-0.02) K/uL [place] # (Auto) (0.11-0.59) K/uL Absolute Nucleated RBC (0-0) K/uL Sodium 123 L (136-145) mmol/L Potassium 2.6 L (3.5-5.1) mmol/L Chloride 86 L (98-107) mmol/L Anion Gap 12.0 H (3-11) Creatinine 3.98 H D (0.6-1.4) mg/dl BUN/Creatinine Ratio 4.1 L (10-20) Glucose 122 H (70-99) mg/dl Hemoglobin A1c 7.0 H (4.5-5.6) % Calcium 6.4 L D (8.5-10.1) mg/dl Magnesium (1.8-2.4) mg/dl TIBC 207 L (250-450) mcg/dl Transferrin 161 L (200-360) mg/dl Ferritin 1075.9 H (8-388) ng/ml AST (15-37) U/L Alkaline Phosphatase (45-117) U/L Albumin (3.4-5.0) gm/dl Urine Blood (Negative) Ur Leukocyte Esterase (Negative) Urine WBC (Auto) (0-5) /hpf U Epithel Cells (Auto) (0-5) /lpf Urine Osmolality (500-800) mOsm/kg Ur Cocaine Metabolite (Neg) U Marijuana (THC) Screen (Neg) Ethyl Alcohol mg/dL (0-3) mg/dl 10/31/18 10/31/18 10/31/18 Range/Units 02:15 02:15 02:15 RBC (4.7-6.1) M/uL Hgb (14.0-18.0) g/dL Hct (42-52) % Plt Count (130-400) K/uL Immature Gran # (Auto) (0.00-0.02) K/uL [place] # (Auto) (0.11-0.59) K/uL Absolute Nucleated RBC (0-0) K/uL Sodium (136-145) mmol/L Potassium (3.5-5.1) mmol/L Chloride (98-107) mmol/L Anion Gap (3-11) Creatinine (0.6-1.4) mg/dl BUN/Creatinine Ratio (10-20) Glucose (70-99) mg/dl Hemoglobin A1c (4.5-5.6) % Calcium (8.5-10.1) mg/dl Magnesium (1.8-2.4) mg/dl TIBC (250-450) mcg/dl Transferrin (200-360) mg/dl Ferritin (8-388) ng/ml AST (15-37) U/L Alkaline Phosphatase (45-117) U/L Albumin (3.4-5.0) gm/dl Urine Blood Trace H (Negative) Ur Leukocyte Esterase Trace H (Negative) Urine WBC (Auto) 5-10 H (0-5) /hpf U Epithel Cells (Auto) 10-20 H (0-5) /lpf Urine Osmolality 163 L (500-800) mOsm/kg Ur Cocaine Metabolite Pos H (Neg) U Marijuana (THC) Screen Pos H (Neg) Ethyl Alcohol mg/dL (0-3) mg/dl 10/31/18 10/31/18 10/31/18 Range/Units 05:56 05:56 11:51 RBC 2.91 L (4.7-6.1) M/uL Hgb 9.0 L (14.0-18.0) g/dL Hct 25.2 L (42-52) % Plt Count 119 L (130-400) K/uL Immature Gran # (Auto) (0.00-0.02) K/uL [place] # (Auto) 0.94 H (0.11-0.59) K/uL Absolute Nucleated RBC (0-0) K/uL Sodium 126 L 129 L (136-145) mmol/L Potassium 3.3 L D (3.5-5.1) mmol/L Chloride 91 L (98-107) mmol/L Anion Gap (3-11) Creatinine 3.35 H D (0.6-1.4) mg/dl BUN/Creatinine Ratio 5.2 L (10-20) Glucose 102 H (70-99) mg/dl Hemoglobin A1c (4.5-5.6) % Calcium 7.2 L (8.5-10.1) mg/dl Magnesium 1.7 L (1.8-2.4) mg/dl TIBC (250-450) mcg/dl Transferrin (200-360) mg/dl Ferritin (8-388) ng/ml AST (15-37) U/L Alkaline Phosphatase (45-117) U/L Albumin 2.7 L (3.4-5.0) gm/dl Urine Blood (Negative) Ur Leukocyte Esterase (Negative) Urine WBC (Auto) (0-5) /hpf U Epithel Cells (Auto) (0-5) /lpf Urine Osmolality (500-800) mOsm/kg Ur Cocaine Metabolite (Neg) U Marijuana (THC) Screen (Neg) Ethyl Alcohol mg/dL (0-3) mg/dl Diagnostic Findings head CT and CXR both w/o acute process (1) Acute renal failure Acute renal failure type: unspecified Qualified Code(s): N17.9 - Acute kidney failure, unspecified
--- NOTE | 2018-10-31 18:54 | Hospitalist Progress Note ---
Date of Service delayed entry date of service as noted below October 31, 2018 Assessment & Plan (1) Acute hyponatremia: ? Acute on chronic Hypovolemia, ARF Alcohol abuse hypertension, patient hypotensive upon arrival at the ER Hypokalemia, hypomagnesemia secondary to clinical dehydration Acute on chronic anemia Hemoglobin drop from baseline Stool Hemoccult negative Ongoing tobacco abuse Medical telemetry Careful correction of sodium Hyponatremia work-up Nephrology consult RE hyponatremia Baseline UA, monitor creatinine response to IV fluids, hold home SAVI inhibitor until creatinine baseline Replace electrolytes DT precautions Anemia work-up Nicotine patch as needed. DVT prophylaxis. Heparin subcu Full code (2) Acute renal failure: secondary to Dehydration from Chronic Diarrhea, Alcoholism -- check C diff, Stool cultures -- IV fluids as per Nephro Hyponatremia, Hypovolemic -- Na increased from 120 to 126 in < 12 hours -- hold IV fluids, repeat Na 12noon Nephro consulted Chronic Diarrhea -- resulting to acute renal failure -- reports loose BM after meals -- stool studies sent -- GI consulted Alcohol abuse -- start Alcohol Withdrawal Protocol hypertension hold Lisinopril continue Carvedilol Hypokalemia, hypomagnesemia secondary to clinical dehydration -- improving Acute on chronic anemia Hemoglobin drop from baseline Stool Hemoccult negative -- monitor Ongoing tobacco abuse -- declined nicotine patch counseled on cessation of smoking/alcohol DVT prophylaxis. Heparin subcu Full code Disposition lives at home ff up with PCP upon discharge Subjective ff up for acute renal failure, alcohol intoxication seen sitting up in bed, comfortable not in distress states he still feels weak, but improving reports few weeks of diarrhea- loose, watery also has vomiting denies tremors, anxiety, hallucinations no other symptoms Review of Systems Review of Systems: All systems reviewed & are unremarkable except as noted in HPI & below Physical Exam Physical Exam: General- oriented x 3, not in distress, speaks in sentences with no effort or accessory muscle use Eyes- anicteric Neck- no JVD Lungs- clear breath sounds bilaterally, no rales/wheezes Heart- normal rate, regular rhythm; no murmurs Abdomen- normal bowel sounds, nondistended, soft, nontender Extremities- (+) R BKA left: no pretibial edema, no calf tenderness Neuro- alert, oriented x 3; no gross focal neurologic deficits Skin- warm & dry Results & Data Vital Signs (Past 12 Hours) Vital Signs Temp Pulse Pulse Resp BP Pulse Ox 05/14/19 16:54 36.6 C 71 20 133/83 96 10/31/18 16:00 96 H 10/31/18 11:53 36.6 C 95 H 18 118/79 96 10/31/18 07:31 37.4 C 106 H 96 H 20 129/79 96 Laboratory Results all noted and reviewed (1) Acute renal failure Acute renal failure type: unspecified Qualified Code(s): N17.9 - Acute kidney failure, unspecified
[2018-10-31 19:12] LABS: BUN Creatinine Ratio 6.5 (10-20); Calcium 7.3 mg/dl (8.5-10.1); Creatinine Clr Calc Pharmacy 31.9 ml/min; Est GFR (African American) 30.3; Est GFR (Non-African American) 26.1; Potassium 3.4 mmol/L (3.5-5.1)
[2018-10-31] MEDS ORDERED: POTASSIUM CHLORIDE 20 MEQ TABCR PO ONE (23:45)
[2018-11-01] MEDS: HEPARIN SOD 5,000 UNIT/0.5 ML VIAL SQ SCH ×2 (05:37→14:13)
[2018-11-01 07:24] LABS: BUN Creatinine Ratio 7.8 (10-20); Calcium 7.9 mg/dl (8.5-10.1); Creatinine Clr Calc Pharmacy 49.1 ml/min; Est GFR (African American) 49.4; Est GFR (Non-African American) 42.6; Potassium 3.5 mmol/L (3.5-5.1)
--- NOTE | 2018-11-01 07:42 | Nephrology Progress Note ---
Date of Service November 01, 2018 Assessment & Plan (1) Acute renal failure: baseline creatinine 0.9-1.0 >> presenting creat 4.7, improving by this am to 1.8. had IDALIA also during admission last month; now w/ recurrence; appears to be prerenal and improving >> agree w/ holding acei; -do note microhematuria on UA should be repeated by pcp on f/u -recommend repeat bmp at pcp appt -currently on no ivf >> will give 1L normosol will sign off; pls call if ? (2) Alcoholism: cause of recurrent admissions; per primary service to monitor for withdrawal; active intoxication on presentation complicates hyponatremia dx (3) Hyponatremia syndrome: sNa 120 on presentation; cannot call this acute hyponatremia b/c we have pt w/ known labile sodium levels and no documented sodium level 48 hrs prior to presentation; also of note he had normal serum osms and urine studies c/w excess fluid intake. sNa 134 today; serum osms yesterday were only slightly low. true changes in sodium status difficult to assess d/t changes in serum osms as EtOH clears his system -consider sNa at admission artificially depressed d/t extra serum osms from EtOH -no further issues/mgt needed except to f/u labs as OP (4) HTN (hypertension): BP a bit higher today >> -monitor for w/ drawal -would cont to hold ACEI - would resume as OP at pcp f/u assuming labs ok -cont coreg; would not increase dose for now -observe for today Present on Admission?: Yes Subjective slept well; wants heart monitor removed so he can shower. endorses 1 loose bm; no n/v, no shin confusion visual changes. no new numbness/weakness. no sob or edema/chest pain. tolerating po well; denies new/worrisome voiding concerns; no F or poor appetite no rash; no bleeding Review of Systems Review of Systems: All systems reviewed & are unremarkable except as noted in HPI & below Physical Exam Constitutional: well developed and well nourished; no acute distress lying flat in bed on ra nad Eyes: no EOM movement deficit ENMT: Mouth: + dry oral mucous membranes Neck: no nuchal rigidity Respiratory: normal respiratory effort, lungs clear to auscultation Auscultation: + diminished lung sounds Cardiovascular: RRR, no murmur, no edema Gastrointestinal (Abdomen): normal bowel sounds, soft, nontender, no hepatosplenomegaly Musculoskeletal: landry, maneuvers readily for exam Skin: no rashes, warm and dry Neurologic: landry, fluent speech Results & Data Vital Signs (Past 12 Hours) Vital Signs Temp Pulse Pulse Pulse Resp BP Pulse Ox 11/01/18 07:32 86 11/01/18 07:03 36.9 C 82 20 151/90 H 96 11/01/18 04:00 37 C 82 17 144/88 H 98 10/31/18 23:59 36.9 C 90 20 155/90 H 92 10/31/18 23:40 93 H Laboratory Results Abnormal lab results 10/31/18 10/31/18 10/31/18 Range/Units 11:51 18:11 18:11 Sodium 129 L 130 L (136-145) mmol/L Potassium 3.4 L (3.5-5.1) mmol/L Chloride 94 L (98-107) mmol/L Creatinine 2.62 H D (0.6-1.4) mg/dl BUN/Creatinine Ratio 6.5 L (10-20) Glucose 143 H (70-99) mg/dl Osmolality 276 L (280-300) mOsm/kg Calcium 7.3 L (8.5-10.1) mg/dl 11/01/18 Range/Units 06:37 Sodium 134 L (136-145) mmol/L Potassium (3.5-5.1) mmol/L Chloride (98-107) mmol/L Creatinine 1.75 H D (0.6-1.4) mg/dl BUN/Creatinine Ratio 7.8 L (10-20) Glucose 124 H (70-99) mg/dl Osmolality (280-300) mOsm/kg Calcium 7.9 L (8.5-10.1) mg/dl (1) Acute renal failure Acute renal failure type: unspecified Qualified Code(s): N17.9 - Acute kidney failure, unspecified (2) HTN (hypertension) Hypertension type: unspecified Qualified Code(s): I10 - Essential (primary) hypertension
[2018-11-01] MEDS ORDERED: POTASSIUM CHLORIDE 20 MEQ TABCR PO STA (07:54)
[2018-11-01] MEDS ORDERED: NORMOSOL-R 1,000 ML IV SCH (08:00)
[2018-11-01] MEDS: MULTIVITAMIN TAB PO SCH (08:32)
[2018-11-01] MEDS: PANTOprazole 40 MG TAB PO SCH (08:32)
[2018-11-01] MEDS: CARVEDILOL 3.125 MG TAB PO SCH (08:33)
[2018-11-01] MEDS: THIAMINE HCL 100 MG TAB PO SCH (08:33)
[2018-11-01] MEDS: FOLIC ACID 1 MG TAB PO SCH (08:33)
[2018-11-01] MEDS ORDERED: GABAPENTIN 600 MG TAB PO SCH (09:00)
[2018-11-01] MEDS ORDERED: ALBUTEROL HFA 8 GM INHALER INH PRN (12:38)
--- NOTE | 2018-11-01 15:43 | Hospitalist Progress Note ---
Date of Service November 01, 2018 Assessment & Plan (1) Acute hyponatremia: Hyponatremia -serum sodium of 120 on admission which may be from hypovolemia versus from alcohol use and lab error -hyponatremia has resolved while on IV fluids -recent serum sodium of 134 on 11/01/18 -nephrology service has evaluated the patient and this is a resolving issue at this time Alcohol abuse -patient counseled on future alcohol use -on Alcohol Withdrawal Protocol -no active alcohol withdrawal symptoms at this time Drug use -10/31/18 urine positive for cocaine and marijuana metabolites -Patient counseled on drug use and advised to stop Hypertension -continue home dose carvedilol -hold SAVI inhibitor while with acute kidney injury (2) Acute renal failure: -secondary to Dehydration from Chronic Diarrhea, Alcoholism -admission creatinine was 4.68 and has improved with IV fluids -creatinine has downtrended to 1.75, continue IV fluids Chronic Diarrhea - resulting to acute renal failure -C.difficile negative Hypokalemia, hypomagnesemia -continue to give potassium and magnesium supplements PROLONGED QT on EKG -continue holding Fluoxetine Acute on chronic anemia -Stool Hemoccult was reported negative earlier on this admission -monitor Hgb, possible some hemodilutional anemia DVT prophylaxis. ambulation, SCDs Full code Subjective Patient eager to leave hospital. but he is cooperative to stay today to continue the treatment especially in regards to the renal function which is improving. Patient denies acute pain. no vomiting. denies diarrhea today. no abdomen discomfort. no chest pain. no shortness of breath Physical Exam Constitutional: WD/WN, vitals as above Eyes: PERRL, conjunctivae normal, anicteric sclerae EOM intact bilaterally ENMT: external ear and nose normal, oropharynx normal Neck: trachea midline, no thyromegaly normal visual inspection Respiratory: normal respiratory effort, lungs clear to auscultation Cardiovascular: RRR, no murmur, no edema Gastrointestinal (Abdomen): normal bowel sounds, soft, nontender, no hepatosplenomegaly Musculoskeletal: no cyanosis or clubbing, extremities motor strength 5/5 Head/Neck/Chest: normocephalic and head atraumatic Neurologic: PERRL, EOMI, accommodation nl, no face palsy, no dysarthria CN's II-XI intact bilaterally Psychiatric: A+Ox3, euthymic affect Results & Data Vital Signs (Past 12 Hours) Vital Signs Temp Pulse Pulse Resp BP Pulse Ox 11/01/18 11:56 36.4 C L 79 18 155/92 H 11/01/18 07:32 86 11/01/18 07:03 36.9 C 82 20 151/90 H 96 11/01/18 04:00 37 C 82 17 144/88 H 98 (1) Acute renal failure Acute renal failure type: unspecified Qualified Code(s): N17.9 - Acute kidney failure, unspecified
[2018-11-01] MEDS ORDERED: MAGNESIUM OXIDE 400 MG TAB PO SCH (20:00)
[2018-11-01] MEDS ORDERED: MAGNESIUM SULFATE / D5W 1 GM/100 ML BAG IV ONE (20:00)
[2018-11-02] MEDS ORDERED: GABAPENTIN 400 MG CAP PO SCH (09:00)
--- NOTE | 2018-11-03 07:08 | Discharge Summary ---
Date of Service November 02, 2018 Admission HPI Per Admitting Provider History obtained from ER provider and records. Unable to obtain history from patient secondary to intoxicated state. Medical history significant for hypertension, hyperlipidemia, ongoing tobacco/alcohol abuse, pancreatitis as per records. Recent confinement last month for hyponatremia, pancreatitis. Patient consulted ER yesterday because of feeling more weak and wobbly than normal. Denies chest pain, S OB, abdominal pain. Patient had nausea and emesis as per ER records. Medical History as above Surgical History : right BKA Family History : Alcoholism Personal/Social history : Ongoing tobacco/alcohol abuse as per records, continues as per records, lives with sister Principal Diagnosis Hyponatremia, Alochol Abuse, drug Use, acute renal failure, hypokalemia, prolonged QTC on EKG, acute on chronic anemia Discharge Data Allergies Allergy/AdvReac Type Severity Reaction Status Date / Time No Known Allergies Allergy Verified 10/30/18 22:40 Consultations 10/30/18 23:05 ED Decision to Admit Stat 10/31/18 00:53 Consult Nephrology Routine 10/31/18 00:56 Consult Case Management - Discharge Planning Routine Ordered Studies 10/30/18 22:03 CT head/brain wo con Stat Hospital Course (1) Acute hyponatremia: Hyponatremia -serum sodium of 120 on admission which may be from hypovolemia versus from alcohol use and lab error -hyponatremia has resolved while on IV fluids -recent serum sodium of 134 on 11/01/18 -nephrology service has evaluated the patient and this is a resolving issue at this time Alcohol abuse -patient counseled on future alcohol use -on Alcohol Withdrawal Protocol -no active alcohol withdrawal symptoms at this time Drug use -10/31/18 urine positive for cocaine and marijuana metabolites -Patient counseled on drug use and advised to stop Hypertension -continue home dose carvedilol -hold SAVI inhibitor while with acute kidney injury (2) Acute renal failure: -secondary to Dehydration from Chronic Diarrhea, Alcoholism -admission creatinine was 4.68 and has improved with IV fluids -creatinine has downtrended to 1.75, continue IV fluids Chronic Diarrhea - resulting to acute renal failure -C.difficile negative Hypokalemia, hypomagnesemia -continue to give potassium and magnesium supplements PROLONGED QT on EKG -continue holding Fluoxetine Acute on chronic anemia -Stool Hemoccult was reported negative earlier on this admission -monitor Hgb, possible some hemodilutional anemia DVT prophylaxis. ambulation, SCDs Full code Total Time Total Time Spent Total Time Spent (In Minutes): 0 minutes. patient left against medical advice on 11/02/18 before being seen by physician that day Discharge Plan Discharge Items Patient Disposition: Against Medical Advice Admission Data Admit Date/Time: 10/31/18 00:52 Attending Provider: Ke Morales Admit Provider: Tomás Kemp Primary Care Provider: Liyah Oseguera Other Providers: Tomás Kemp ; Ivanna House ; Marquise Oseguera ; Aroldo Salinas I ; Elise Bermudez ; Sapna Minor ; Junaid Acevedo Service: Telemetry Medical Other [place] Date/Time DO NOT enter until pt leaves facility: 11/02/18 06:19
[2018-11-03] MEDS ORDERED: GABAPENTIN 100 MG CAP PO SCH (09:00)
[2018-11-04 00:04] LABS: Cocaine, Urine 357 NG/ML (CUTOFF=100); Marijuana Quant, GCMS Urine 6 NG/ML (CUTOFF=5)
== END 2018-11-02 06:19 | disposition left against medical advice (07) | DRG 640 ==
LOC: ED 21:14 → SUATTDRO 10-31 00:52 → 2N 10-31 00:52

== ENCOUNTER 2019-12-16 12:04 | Inpatient (IN) ==
[2019-12-16] MEDS ORDERED: SODIUM CHLORIDE 0.9% 1000ML 1,000 ML IV SCH (12:15)
[2019-12-16] MEDS ORDERED: MoRPHine SULFATE 10 MG/ML CARP/VIAL IV STA (12:17)
[2019-12-16] MEDS ORDERED: ONDANSETRON INJ 2 MG/ML 2 ML VIAL IV STA (12:17)
[2019-12-16] MEDS ORDERED: FAMOTIDINE 20MG IV PUSH 20 MG/5 ML SYR IV STA (12:22)
--- NOTE | 2019-12-16 12:22 | Emergency Department Note ---
Impression & Plan Pancreatitis, recurrent, Alcohol intoxication ED Provider Note Provider: Fernandez Duran MD DATE OF SERVICE: 12/16/2019 CHIEF COMPLAINT: Chest pain HISTORY OF PRESENT ILLNESS: Patient is a 59-year-old gentleman with a history of GERD, hypertension, hyperlipidemia, pancreatitis, alcohol abuse, depression, tobacco use, prior right lower extremity BKA presenting today with complaint of severe upper abdominal pain in the epigastrium as well as some chest discomfort. Describes it as a twisting. Patient reports nausea and several episodes of nonbloody vomiting. Denies any diarrhea or trauma. Denies fever. Denies shortness of breath. Patient states he has had similar issues when he is had complications from drinking does states he was drinking beer and liquor last night. Denies any other medications prior to arrival. Does not believe he had anything to eat this morning. Patient states suddenly when he awoke around 7 AM this morning has been constant was worse with touching his abdomen. REVIEW OF SYSTEMS: A total of 10 review of systems was obtained and negative except as stated above in the HPI. PAST MEDICAL HISTORY: As noted above MEDICATIONS: Reviewed medication list SOCIAL HISTORY: Endorses regular alcohol use, patient is a smoker PHYSICAL EXAM: GENERAL: alert and oriented on the stretcher appears uncomfortable Head: normocephalic and atraumatic EYES: No injection, discharge or icterus. NECK: Trachea midline. Supple. ENT: Mucous membranes pink and moist LUNGS: Airway patent. No retractions. Breath sounds clear with some mildly increased work of breathing. HEART: Regular rate and rhythm. No chest wall tenderness ABDOMEN: Soft but diffuse upper abdominal tenderness. No lower abdominal tenderness. SKIN: Acyanotic, warm, dry, without rashes EXTREMITIES: Without swelling or significant tenderness, right BKA is present NEUROLOGICAL: Moving all extremities, no aphasia. No facial droop or slurred speech. EK bpm sinus bradycardia without PVC. No ST segment elevation or depression. QTC 459. Some slight baseline artifact due to respiratory effort is noted. CONTINUOUS CARDIAC MONITORING: was ordered and showed a heart rate of 68 bpm in normal sinus rhythm Patient's hypertension was referred to the hospitalist HOSPITAL COURSE: 1215 Patient was first seen and H&P performed. 1303 Patient reassessed and updated. Patient was having some improvement of symptoms. Discussed options and he agrees with plan for further observation here in the hospital. [address] Horace ya of [facility] for admission Patient's laboratory studies and imaging reviewed. Differential includes Appendicitis, testicular torsion, infections, diver ticulitis, UTI, obstruction, mesenteric ischemia, aortic pathology, inflammatory bowel disease, renal colic, PUD, pancreatitis, biliary pathology, hernia, volvulus, constipation, as well as other pathologies. IMPRESSION/MEDICAL DECISION MAKING: Patient presents with pain in the epigastrium some radiation of the chest. EKG without acute ischemic changes. Sudden onset this morning with abdominal tenderness. Patient endorsed history of alcohol use. No bloody vomiting or stool reported. Concern for possible gastritis or gastric complications or pancreatitis is quite high. Troponin was sent as well as basic laboratory studies. Chest x-ray obtained as well as a CT of the chest to exclude evidence of acute pulmonary findings or intra-abdominal pathology. Lower suspicion this represents PE or dissection. Treated here initially with IV fluids, antiemetic, morphine, and Pepcid. Patient's laboratory studies with some slight leukopenia with no anemia. Electrolytes and renal function appear normal. Mild LFT elevation is noted with an elevated lipase. Alcohol level mildly elevated as well. Troponin likely undetectable. Believe patient symptoms related to pancreatitis. Patient has a mild improvement on reassessment after medication. Still with his history of pancreatitis and complaints feel that further inpatient hospital observation is recommended.. Patient was in agreement this plan. Hospitalist contacted. DIAGNOSIS: Acute pancreatitis, alcohol intoxication DISPOSITION: Hospitalist will evaluate Patient was agreeable with this plan. Past Med/Surg History Social History Preferred Language: Irish Communication Ability: Effective Gum Worker Required: No Beliefs That Will Affect Care: None marital status: Single Current Living Situation: Other Current Living Situation Comment: lives with roomate Other Information That Helps Us Care for You: No Feels Safe at Home: Yes Safety Concerns: Feels Safe At This Time Smoking Status: Current every day smoker Tobacco Type: cigarettes ; Cigarettes Per Day: 10 ; Second Hand Exposure: No ; Hx Alcohol Use: Yes Alcohol type: beer and hard liquor Alcohol Intake Frequency Comment: 12 pack of beer daily along with 1/5 of vodka Hx Substance Use: No Allergies Allergies Allergy/AdvReac Type Severity Reaction Status Date / Time No Known Allergies Allergy Verified 12/16/19 14:17 Home Meds Home Medications Medication Instructions Recorded Confirmed gabapentin [Neurontin] 300 mg PO TID 02/21/18 12/16/19 omeprazole 40 mg PO QAM 02/21/18 12/16/19 albuterol sulfate [Proventil HFA] 2 puff INHALATION Q4H PRN 07/03/18 12/16/19 fluoxetine 10 mg PO DAILY 07/03/18 12/16/19 polyethylene glycol 3350 17 g PO DAILY PRN 07/03/18 12/16/19 sennosides-docusate sodium [Senna 2 tab PO DAILY PRN 07/03/18 12/16/19 with Docusate Sodium] thiamine HCl (vitamin B1) [Vitamin 100 mg PO QAM 10/07/18 12/16/19 B-1] carvedilol 3.125 mg PO DAILY 10/30/18 12/16/19 hydrocortisone acet-aloe vera 1 applic TOPICAL DIRECTED PRN 10/30/18 12/16/19 lisinopril 20 mg PO DAILY 10/30/18 12/16/19 Results & Data (ED) Vital Signs Vital Signs - 24 hr 12/16/19 12:06 12/16/19 12:20 12/16/19 12:26 Temperature 36.4 C L Temperature Source Oral Pulse Rate 61 59 L 68 Pulse Rate from SpO2 Sensor 71 Pulse Rhythm Regular Respiratory Rate 18 26 H 20 Respiratory Effort / Characteristics Non-Labored Spontaneous Respiratory Depth Normal Respiratory Pattern Regular Blood Pressure 161/103 H 177/110 H Blood Pressure Mean 122 117 Blood Pressure Position Sitting Pulse Oximetry 100 99 98 Oxygen Delivery Method Room Air Room Air Room Air Sepsis Recent Fever Within 48 Hours No Sepsis New/Unexplained Change in Mental Status No Sepsis Action Taken by Nursing No Action Required 12/16/19 12:30 12/16/19 12:45 12/16/19 12:59 Temperature Temperature Source Pulse Rate 77 71 67 Pulse Rate from SpO2 Sensor 78 78 67 Pulse Rhythm Respiratory Rate 17 22 15 Respiratory Effort / Characteristics Respiratory Depth Respiratory Pattern Blood Pressure 170/114 H 164/108 H 170/107 H Blood Pressure Mean 124 114 122 Blood Pressure Position Pulse Oximetry 99 96 99 Oxygen Delivery Method Room Air Room Air Room Air Sepsis Recent Fever Within 48 Hours Sepsis New/Unexplained Change in Mental Status Sepsis Action Taken by Nursing 12/16/19 13:00 12/16/19 13:26 12/16/19 13:30 Temperature Temperature Source Pulse Rate 74 76 67 Pulse Rate from SpO2 Sensor 74 69 Pulse Rhythm Respiratory Rate 17 22 16 Respiratory Effort / Characteristics Respiratory Depth Respiratory Pattern Blood Pressure 172/111 H 167/106 H Blood Pressure Mean 118 120 Blood Pressure Position Pulse Oximetry 97 99 Oxygen Delivery Method Room Air Room Air Sepsis Recent Fever Within 48 Hours Sepsis New/Unexplained Change in Mental Status Sepsis Action Taken by Nursing 12/16/19 13:31 Temperature Temperature Source Pulse Rate 76 Pulse Rate from SpO2 Sensor 78 Pulse Rhythm Respiratory Rate 22 Respiratory Effort / Characteristics Respiratory Depth Respiratory Pattern Blood Pressure 171/108 H Blood Pressure Mean 114 Blood Pressure Position Pulse Oximetry 100 Oxygen Delivery Method Room Air Sepsis Recent Fever Within 48 Hours Sepsis New/Unexplained Change in Mental Status Sepsis Action Taken by Nursing Laboratory Data Result diagrams: 12/16/19 12:29 12/16/19 12:29 Lab Results 12/16/19 12/16/19 12/16/19 Range/Units 12:29 12:29 12:29 WBC 3.82 L (4.8-10.8) K/uL RBC 4.73 (4.7-6.1) M/uL Hgb 14.8 (14.0-18.0) g/dL Hct 43.8 (42-52) % MCV 92.6 (80-100) fL MCH 31.3 (25-34) pg MCHC 33.8 (32-36) g/dL RDW Std Deviation 44.8 (36.4-46.3) fL RDW Coeff of Miguel 13.2 (11.5-14.5) % Plt Count 150 (130-400) K/uL MPV 9.1 (7.4-10.4) fL Immature Gran % (Auto) 0.0 % Neut % (Auto) 48.3 % Lymph % (Auto) 42.7 % Riley % (Auto) 7.9 % Eos % (Auto) 0.8 % Baso % (Auto) 0.3 % Neut # (Auto) 1.85 (1.4-6.5) K/uL Lymph # (Auto) 1.63 (1.2-3.4) K/uL Riley # (Auto) 0.30 (0.11-0.59) K/uL Eos # (Auto) 0.03 (0-0.5) K/uL Baso # (Auto) 0.01 (0-0.2) K/uL Immature Gran # (Auto) 0.00 (0.00-0.02) K/uL PT 11.1 (9.0-12.0) Seconds INR 1.1 (0.9-1.1) APTT 30.3 (21.0-31.0) Seconds PTT Ratio 1.1 Sodium 138 (136-145) mmol/L Potassium 3.7 (3.5-5.1) mmol/L Chloride 106 (98-107) mmol/L Carbon Dioxide 23 (21-32) mmol/L Anion Gap 9.0 (3-11) BUN 5 L (7-18) mg/dl Creatinine 0.74 (0.6-1.4) mg/dl Est Cr Clr Drug Dosing Not Reportable Est GFR ( Amer) 118.7 Est GFR (Non-Af Amer) 102.4 BUN/Creatinine Ratio 6.7 L (10-20) Glucose 133 H (70-99) mg/dl Calcium 8.9 (8.5-10.1) mg/dl Magnesium 1.8 (1.8-2.4) mg/dl Total Bilirubin 1.3 H (0.2-1) mg/dl AST 207 H (15-37) U/L ALT 117 H (12-78) U/L Alkaline Phosphatase 163 H (45-117) U/L Troponin I < 0.015 (0-0.045) ng/ml Total Protein 8.7 H (6.4-8.2) gm/dl Albumin 3.8 (3.4-5.0) gm/dl Globulin 4.9 H (2.5-4.0) gm/dl Albumin/Globulin Ratio 0.8 L (0.9-2) Lipase 3568 H (73-393) U/L Ethyl Alcohol mg/dL (0-3) mg/dl Hepatitis C Ab Screen (Neg) 12/16/19 12/16/19 Range/Units 12:29 12:29 WBC (4.8-10.8) K/uL RBC (4.7-6.1) M/uL Hgb (14.0-18.0) g/dL Hct (42-52) % MCV (80-100) fL MCH (25-34) pg MCHC (32-36) g/dL RDW Std Deviation (36.4-46.3) fL RDW Coeff of Miguel (11.5-14.5) % Plt Count (130-400) K/uL MPV (7.4-10.4) fL Immature Gran % (Auto) % Neut % (Auto) % Lymph % (Auto) % Riley % (Auto) % Eos % (Auto) % Baso % (Auto) % Neut # (Auto) (1.4-6.5) K/uL Lymph # (Auto) (1.2-3.4) K/uL Riley # (Auto) (0.11-0.59) K/uL Eos # (Auto) (0-0.5) K/uL Baso # (Auto) (0-0.2) K/uL Immature Gran # (Auto) (0.00-0.02) K/uL PT (9.0-12.0) Seconds INR (0.9-1.1) APTT (21.0-31.0) Seconds PTT Ratio Sodium (136-145) mmol/L Potassium (3.5-5.1) mmol/L Chloride (98-107) mmol/L Carbon Dioxide (21-32) mmol/L Anion Gap (3-11) BUN (7-18) mg/dl Creatinine (0.6-1.4) mg/dl Est Cr Clr Drug Dosing Est GFR ( Amer) Est GFR (Non-Af Amer) BUN/Creatinine Ratio (10-20) Glucose (70-99) mg/dl Calcium (8.5-10.1) mg/dl Magnesium (1.8-2.4) mg/dl Total Bilirubin (0.2-1) mg/dl AST (15-37) U/L ALT (12-78) U/L Alkaline Phosphatase (45-117) U/L Troponin I (0-0.045) ng/ml Total Protein (6.4-8.2) gm/dl Albumin (3.4-5.0) gm/dl Globulin (2.5-4.0) gm/dl Albumin/Globulin Ratio (0.9-2) Lipase (73-393) U/L Ethyl Alcohol mg/dL 224.0 H (0-3) mg/dl Hepatitis C Ab Screen Neg (Neg) Administered Medications Folic Acid (Folvite) 1 mg PO QAM RONEY Stop: 01/15/20 15:59 Last Admin: 12/16/19 16:33 Dose: 1 mg Documented by: [id number] Lactated Ringer's (Lr) 1,000 mls @ 200 mls/hr IV .Q5H RONEY Stop: 12/17/19 00:29 Last Infusion: 12/16/19 16:32 Dose: 0 mls/hr Documented by: [id number] Admin: 12/16/19 15:15 Dose: 200 mls/hr Documented by: [id number] Miscellaneous (Order Awaiting Action) 1 ea N/A QS RONEY Stop: 01/15/20 15:59 Last Admin: 12/16/19 16:17 Dose: Not Given Documented by: [id number] Discontinued Medications Gabapentin (Neurontin) 1,200 mg PO TODAY@1600 RONEY Stop: 12/16/19 16:01 Last Admin: 12/16/19 16:33 Dose: 1,200 mg Documented by: [id number] Sodium Chloride (Nss 1000ml) 1,000 mls @ 999 mls/hr IV .Q1H1M RONEY Stop: 12/16/19 13:15 Last Infusion: 12/16/19 13:26 Dose: 0 mls/hr Documented by: [id number] Admin: 12/16/19 12:25 Dose: 999 mls/hr Documented by: [id number] Famotidine (Pepcid 20mg Iv Push) 20 mg in 5 mls @ 2.5 mls/min IV NOW STA Stop: 12/16/19 12:23 Last Admin: 12/16/19 12:25 Dose: 2.5 mls/min Documented by: [id number] Multivitamins 10 ml/ Thiamine HCl 100 mg/ Folic Acid 1 mg/Sodium Chloride 1,011.2 mls @ 500 mls/hr IV .Q2H2M ONE Stop: 12/16/19 18:01 Last Admin: 12/16/19 16:31 Dose: 500 mls/hr Documented by: [id number] Morphine Sulfate (Morphine Sulfate) 6 mg IV NOW STA Stop: 12/16/19 12:18 Last Admin: 12/16/19 12:25 Dose: 6 mg Documented by: [id number] Morphine Sulfate (Morphine Sulfate) Confirm Administered Dose 2 mg .ROUTE .STK- MED ONE Stop: 12/16/19 16:14 Last Admin: 12/16/19 16:15 Dose: 2 mg Documented by: [id number] Ondansetron HCl (Zofran) 4 mg IV NOW STA Stop: 12/16/19 12:18 Last Admin: 12/16/19 12:25 Dose: 4 mg Documented by: [id number] Discharge Plan Visit Data *Final* Discharge Date/Time: 12/16/19 14:42 Chief Complaint: Chest Pain Stated Complaint: CHEST PAIN & UPPER ABDOMINAL PAIN ED Provider: Fernandez Duran Discharge Problem: Pancreatitis, recurrent, Alcohol intoxication Patient Disposition: Admitted As Inpatient Condition: Fair Discharge Instructions Interventions: ED Discharge Assessment Last Done: 12/16/19 14:42 Discharge Problem: Alcohol intoxication Qualifiers: Complication of substance-induced condition: uncomplicated Qualified Code(s): F10.920 - Alcohol use, unspecified with intoxication, uncomplicated
[2019-12-16 12:39] LABS: Basophils # (auto) 0.01 K/uL (0-0.2); Basophils % (auto) 0.3 %; Eosinophils # (auto) 0.03 K/uL (0-0.5); Eosinophils % (auto) 0.8 %; Hematocrit (blood only) 43.8 % (42-52); Hemoglobin 14.8 g/dL (14.0-18.0); Lymphocytes # (auto) 1.63 K/uL (1.2-3.4); Lymphocytes % (auto) 42.7 %; Mean Corpuscular Hemoglobin 31.3 pg (25-34); Mean Corpuscular Hgb Conc 33.8 g/dL (32-36); Mean Corpuscular Volume 92.6 fL (80-100); Mean Platelet Volume 9.1 fL (7.4-10.4); Monocytes % (auto) 7.9 %; Neutrophils # (auto) 1.85 K/uL (1.4-6.5); Neutrophils % (auto) 48.3 %; Platelet Count 150 K/uL (130-400); RDW Coefficient of Variation 13.2 % (11.5-14.5); RDW Standard Deviation 44.8 fL (36.4-46.3); Red Blood Count 4.73 M/uL (4.7-6.1); White Blood Count 3.82 K/uL (4.8-10.8)
[2019-12-16 12:50] LABS: INR 1.1 (0.9-1.1); Partial Thromboplastin Ratio 1.1; Partial Thromboplastin Time 30.3 Seconds (21.0-31.0); Prothrombin Time 11.1 Seconds (9.0-12.0)
[2019-12-16 12:56] LABS: Alanine Aminotransferase 117 U/L (12-78); Albumin Level 3.8 gm/dl (3.4-5.0); Aspartate Aminotransferase 207 U/L (15-37); BUN Creatinine Ratio 6.7 (10-20); Blood Urea Nitrogen 5 mg/dl (7-18); Calcium 8.9 mg/dl (8.5-10.1); Carbon Dioxide 23 mmol/L (21-32); Chloride 106 mmol/L (98-107); Est GFR (African American) 118.7; Est GFR (Non-African American) 102.4; Glucose 133 mg/dl (70-99); Magnesium 1.8 mg/dl (1.8-2.4); Potassium 3.7 mmol/L (3.5-5.1); Sodium 138 mmol/L (136-145)
[2019-12-16 13:02] LABS: Albumin Globulin Ratio 0.8 (0.9-2); Alkaline Phosphatase 163 U/L (45-117); Bilirubin,Total 1.3 mg/dl (0.2-1); Globulin 4.9 gm/dl (2.5-4.0); Lipase 3568 U/L (73-393); Total Protein 8.7 gm/dl (6.4-8.2); Troponin I < 0.015 ng/ml (0-0.045)
--- NOTE | 2019-12-16 13:04 | CT Scan Report ---
ABDOMEN AND PELVIS CT WITHOUT CONTRAST CT DOSE: 265.62 mGy.cm HISTORY: upper abdominal pain TECHNIQUE: Multiaxial CT images of the abdomen and pelvis were performed without contrast. A dose lo wering technique was utilized adhering to the principles of ALARA. COMPARISON STUDY: Abdomen and pelvis CT 10/07/2018. FINDINGS: The lung bases are clear. No pneumoperitoneum. No pneumatosis. Moderate degenerative change s seen within the bilateral hips. Old, healed bilateral rib fractures. Mild hepatic steatosis. The un enhanced gallbladder, spleen, adrenal glands, and kidneys are unremarkable. No renal or ureteral ston es. Moderate peripancreatic inflammatory change consistent with acute pancreatitis. No definite locul ated fluid collections to suggest an abscess. This is similar to the prior study. A cluster of puncta te calcifications at the pancreatic head. These demonstrate a linear pattern and could reside within the distal main pancreatic duct. However, no significant pancreatic duct dilatation. Additional calci fications within the body and tail of the pancreas consistent with chronic pancreatitis. No retroperi toneal lymphadenopathy. Normal bladder. The prostate gland is mildly enlarged. Suboptimal evaluation for bowel pathology due to the lack of intravenous and oral contrast. However, there is no definite b owel wall thickening or obstruction. Normal appendix. IMPRESSION: 1. Moderate peripancreatic inflammatory change consistent with acute pancreatitis. This is similar to the prior study. 2. A cluster of punctate calcifications at the pancreatic head. These demonstrate a linear pattern an d could reside within the distal main pancreatic duct. However, no significant pancreatic duct dilata tion. 3. Additional findings as described above. ACT 112: Negative or not required by law. Electronically signed by: Harshad Avina M.D. 12/16/2019 1:03 PM
--- NOTE | 2019-12-16 13:49 | XRay Report ---
XR chest 1V portable HISTORY: Atypical Chest Pain COMPARISON: Chest 10/30/2018. FINDINGS: No pneumothorax. No pleural effusions. A few small linear scarlike densities within the rig ht midlung zone, unchanged. The lungs are otherwise clear. The heart remains borderline enlarged. Adv anced degenerative changes within the right shoulder persist. IMPRESSION: No significant change compared to the prior study. No acute process. ACT 112: Negative or not required by law. Electronically signed by: Harshad Avina M.D. 12/16/2019 1:48 PM
[2019-12-16] MEDS ORDERED: ACETAMINOPHEN 325 MG TAB PO PRN (14:12)
[2019-12-16] MEDS ORDERED: ALUMINUM/MAGNESIUM SUSP 30 ML UDC PO PRN (14:12)
[2019-12-16] MEDS ORDERED: NITROGLYCERIN SL 0.4 MG/TAB TAB SL PRN (14:12)
[2019-12-16] MEDS ORDERED: POLYETHYLENE (MIRALAX) 17 GM PACK PO PRN ×2 (14:12→15:29)
[2019-12-16] MEDS ORDERED: ONDANSETRON INJ 2 MG/ML 2 ML VIAL IV PRN (14:12)
--- NOTE | 2019-12-16 14:30 | History & Physical Report ---
Date of Service December 16, 2019 Assessment & Plan (1) Alcohol intoxication: History of chronic alcohol abuse Recent admission 4 weeks alcohol with similar complaint of admitted to medical floor, alcohol withdrawal protocol Patient is counseled numerous times for strict abstinence from alcohol Social service will be consulted for recommendation of alcohol rehab if patient is interested Alcoholic pancreatitis: due excessive alcohol intake S .ETOH> 200 Presented with abdominal pain nausea vomiting, lipase elevated CT abdomen pelvis as above Order for bowel rest n.p.o. IV fluids, pain control, repeat lipase level in a.m. Hypertension: BP moderately elevated, systolic 167/diastolic 106 Stable secondary to alcohol withdrawal abdominal pain due to pancreatitis Continue outpatient meds with Coreg and lisinopril Monitor in telemetry Transaminitis: Possible secondary to acute alcoholic hepatitis Continue management of alcohol withdrawal as above, IV fluids Ordered for hepatitis panel, due to history of drug abuse Repeat labs in a.m. CODE STATUS: Full code DVT prophylaxis SCD and teds, patient is encouraged to ambulate Disposition: To be discharged home when medically stable History of Present Illness Chief Complaint: abdominal pain /nausea Primary Care Provider: Liyah Oseguera MD This is a 59 yo male with hx of chronic alcohol abuse , alcoholic liver disease , multiple admissions in past due to alcoholic pancreatitis , the last one was 4 weeks back , pt reports of continued drinking excessively after being discharged from [facility] last evening drank a pint of liquor , woke up this morning with epigastirc abdominal pain , nausea had few episodes of vomiting no blood in vomit no fever or chill no complain of cough , no chest pain or SOB no dark stool or blood in stool pts blood ETOH level > 200 , lipase > 3000 Allergies Allergy/AdvReac Type Severity Reaction Status Date / Time No Known Allergies Allergy Verified 12/16/19 14:17 Home Medications Home Medications Medication Instructions Recorded Confirmed Type gabapentin [Neurontin] 300 mg PO TID 02/21/18 12/16/19 History omeprazole 40 mg PO QAM 02/21/18 12/16/19 History albuterol sulfate [Proventil HFA] 2 puff INHALATION Q4H PRN 07/03/18 12/16/19 History fluoxetine 10 mg PO DAILY 07/03/18 12/16/19 History polyethylene glycol 3350 17 g PO DAILY PRN 07/03/18 12/16/19 History sennosides-docusate sodium [Senna 2 tab PO DAILY PRN 07/03/18 12/16/19 History with Docusate Sodium] thiamine HCl (vitamin B1) [Vitamin 100 mg PO QAM 10/07/18 12/16/19 History B-1] carvedilol 3.125 mg PO DAILY 10/30/18 12/16/19 History hydrocortisone acet-aloe vera 1 applic TOPICAL DIRECTED PRN 10/30/18 12/16/19 History lisinopril 20 mg PO DAILY 10/30/18 12/16/19 History Past Med/Surg History Social History Preferred Language: Romanian Communication Ability: Effective Last Code Striper Required: No Beliefs That Will Affect Care: None marital status: Single Current Living Situation: Other Current Living Situation Comment: lives with roomate Other Information That Helps Us Care for You: No Feels Safe at Home: Yes Safety Concerns: Feels Safe At This Time Smoking Status: Current every day smoker Tobacco Type: cigarettes ; Cigarettes Per Day: 10 ; Second Hand Exposure: No ; Hx Alcohol Use: Yes Alcohol type: beer and hard liquor Alcohol Intake Frequency Comment: 12 pack of beer daily along with 1/5 of vodka Hx Substance Use: No Review of Systems Review of Systems: All systems reviewed & are unremarkable except as noted in HPI & below Gastrointestinal: + abdominal pain, + nausea and + vomiting Physical Exam Constitutional: WD/WN, vitals as above + intoxicated appearing Eyes: PERRL, conjunctivae normal, anicteric sclerae ENMT: external ear and nose normal, oropharynx normal Neck: trachea midline, no thyromegaly Respiratory: normal respiratory effort, lungs clear to auscultation Cardiovascular: RRR, no murmur, no edema Gastrointestinal (Abdomen): Percussion/Palpation: + abdomen tender (at epigastric/upper abdominal area) and abdomen soft Musculoskeletal: no cyanosis or clubbing, extremities motor strength 5/5 (right BKA amputation ) Extremities: + amputation noted (right bka ) Skin: no rashes, warm and dry Neurologic: patellar DTR's 2+ bilat, sensation intact Psychiatric: A+Ox3, euthymic affect Results & Data Results & Data ([facility]) Vital Signs (Past 12 Hours) Vital Signs Temp Pulse Resp BP Pulse Ox 06/28/20 13:26 76 22 167/106 H 99 12/16/19 13:00 74 17 172/111 H 97 12/16/19 12:59 67 15 170/107 H 99 12/16/19 12:45 71 22 164/108 H 96 12/16/19 12:30 77 17 170/114 H 99 12/16/19 12:26 68 20 177/110 H 98 12/16/19 12:20 59 L 26 H 99 12/16/19 12:06 36.4 C L 61 18 161/103 H 100 (1) Alcohol intoxication Complication of substance-induced condition: uncomplicated Qualified Code(s): F10.920 - Alcohol use, unspecified with intoxication, uncomplicated
[2019-12-16] MEDS: LACTATED RINGER'S 1,000 ML IV SCH (15:15)
[2019-12-16] MEDS ORDERED: DOCUSATE SODIUM/SENNA 50/8.6MG TAB PO PRN (15:29)
[2019-12-16] MEDS ORDERED: LORazepam 3 MG/6 ML VIAL IV PRN (15:29)
[2019-12-16] MEDS ORDERED: LORazepam 1 MG/2 ML VIAL IV PRN (15:29)
[2019-12-16] MEDS ORDERED: LORazepam 2 MG/4 ML VIAL IV PRN (15:29)
[2019-12-16] MEDS ORDERED: GABAPENTIN 1200MG ALCOHOL WITHDRAWAL LOAD PO STA (15:29)
[2019-12-16] MEDS ORDERED: ATIVAN IV ALCOHOL WITHDRAWL IV PRN (15:29)
[2019-12-16] MEDS ORDERED: MULTI-VITAMIN INFUSION 10 ML, THIAMINE HCL 100 MG, FOLIC ACID 1 MG in SODIUM CHLORIDE 0... IV ONE (16:00)
[2019-12-16] MEDS ORDERED: GABAPENTIN 600 MG TAB PO SCH (16:00)
[2019-12-16] MEDS ORDERED: MoRPHine SULFATE 2 MG/ML CARP ONE (16:13)
[2019-12-16 16:14] LABS: INR 1.1 (0.9-1.1); Prothrombin Time 11.1 Seconds (9.0-12.0)
[2019-12-16] MEDS: FOLIC ACID 1 MG TAB PO SCH (16:33)
[2019-12-16] MEDS ORDERED: cloNIDine HCL 0.1 MG TAB PO PRN (19:16)
[2019-12-16] MEDS: GABAPENTIN 300 MG CAP PO SCH (20:00)
[2019-12-16] MEDS: MoRPHine SULFATE 2 MG/ML CARP IV PRN (20:36)
--- NOTE | 2019-12-16 20:43 | Electrocardiogram Report ---
Test Reason : Blood Pressure : / mmHG Vent. Rate : 059 BPM Atrial Rate : 061 BPM P-R Int : 000 ms QRS Dur : 084 ms QT Int : 464 ms P-R-T Axes : 000 088 053 degrees QTc Int : 459 ms Poor data quality, interpretation may be adversely affected Sinus bradycardia Abnormal ECG When compared with ECG of 31-OCT-2018 08:57, Vent. rate has decreased BY 34 BPM Confirmed by Peter Gomes ([id number]) on 12/16/2019 8:42:58 PM Referred By: REFERRED SELF Confirmed By:Sreedhar Gomes
[2019-12-16] MEDS: GABAPENTIN 600 MG TAB PO SCH (21:09)
[2019-12-16 21:49] LABS: Amphetamines+Metham, Urine Neg (Neg); Barbiturates, Urine Neg (Neg); Benzodiazepine, Urine Neg (Neg); Cocaine, Urine Neg (Neg); MDMA (Ecstacy), Urine Neg (Neg); Methadone, Urine Neg (Neg); Opiate, Urine Pos (Neg); Phencyclidine, Urine Neg (Neg)
[2019-12-17] MEDS: LACTATED RINGER'S 1,000 ML IV SCH (00:13)
[2019-12-17] MEDS: MoRPHine SULFATE 2 MG/ML CARP IV PRN ×5 (02:43→20:01)
[2019-12-17] MEDS: GABAPENTIN 600 MG TAB PO SCH ×3 (03:52→19:14)
[2019-12-17 06:51] LABS: Alanine Aminotransferase 72 U/L (12-78); Albumin Level 3.1 gm/dl (3.4-5.0); Aspartate Aminotransferase 78 U/L (15-37); BUN Creatinine Ratio 8.4 (10-20); Bilirubin Direct 0.5 mg/dl (0-0.2); Blood Urea Nitrogen 4 mg/dl (7-18); Calcium 8.7 mg/dl (8.5-10.1); Carbon Dioxide 24 mmol/L (21-32); Chloride 100 mmol/L (98-107); Est GFR (Non-African American) 126.8; Glucose 79 mg/dl (70-99); Magnesium 1.4 mg/dl (1.8-2.4); Potassium 3.6 mmol/L (3.5-5.1); Sodium 132 mmol/L (136-145)
[2019-12-17 07:00] LABS: Albumin Globulin Ratio 0.8 (0.9-2); Alkaline Phosphatase 134 U/L (45-117); Bilirubin,Total 2.7 mg/dl (0.2-1); Globulin 4.1 gm/dl (2.5-4.0); Lipase 1768 U/L (73-393); Total Protein 7.2 gm/dl (6.4-8.2)
--- NOTE | 2019-12-17 08:10 | Hospitalist Progress Note ---
Date of Service December 17, 2019 Assessment & Plan (1) Alcohol intoxication: History of chronic alcohol abuse Recent admission 4 weeks alcohol with similar complaint of admitted to medical floor, alcohol withdrawal protocol Patient is counseled numerous times for strict abstinence from alcohol Social service consulted for recommendation of alcohol rehab if patient is interested Alcoholic pancreatitis: due excessive alcohol intake S .ETOH> 200 Presented with abdominal pain nausea vomiting, lipase elevated CT abdomen pelvis as above Order for bowel rest n.p.o. IV fluids, pain control, repeat lipase level in a.m. Hypertension: BP moderately elevated, systolic 167/diastolic 106 Stable secondary to alcohol withdrawal abdominal pain due to pancreatitis Continue outpatient meds with Coreg and lisinopril Monitor in telemetry Transaminitis: Possible secondary to acute alcoholic hepatitis Continue management of alcohol withdrawal as above, IV fluids Ordered for hepatitis panel, due to history of drug abuse LFTs improving CODE STATUS: Full code DVT prophylaxis SCD and teds, patient is encouraged to ambulate Labs Checked, NPO x Chips and Sips ROS-No Headache, No Visual Changes, No Nausea, No Vomiting, No Fever, No Chills, No Neck Pain or Stiffness, No Chest Pain, No Palpitations, No SOB, No VILLEDA, No Cough, No Sputum, No Wheezing, No Abdominal Pain, No Diarrhea, No Hematemesis, No Hemoptysis, No Unexpected Weight Loss, No Flank pain, No Melena, No Hematochezia, No Frequency, No Urgency, No Burning, No Hematuria, No Rashes, No Diaphoresis. Appetite is Normal Physical Exam Gen-AAO x 3, NAD, Afebrile Head-NCAT, EOMI, PERRLA, Anicteric Sclera, No Posterior Pharyngeal Erythema Neck-Supple, No JVD, No Thyromegaly, No Masses, No LAD, No Bruits Lungs-Clear to Auscultation Bilaterally, No Rales, No Rhonchi, No Wheezing, No Crepitus Chest-No S4, +S1, +S2, No S3, No Murmurs, No Rubs, No Gallops, No Ectopy Abdomen-Soft, Bowel Sounds Present, Non Tender, Non Distended, No Hepatomegaly, No Splenomegaly, No Palpable Masses, No Rebound, No Rigidity, No Guarding Musculoskeletal-Full Range of Motion Bilaterally, No CVAT Extremities-No Cyanosis, No Clubbing, No Edema, B BKA Nuero-Cranial Nerves II-XII grossly intact, Motor WNL, DTRs WNL, Strength WNL, Non Focal Psych-Normal Mood Admission and Anticipated Discharge Date Admission Date: December 16, 2019 Results & Data Results & Data ([facility]) Vital Signs (Past 12 Hours) Vital Signs Temp Pulse Pulse Resp BP Pulse Ox 12/17/19 07:44 36.8 C 69 18 158/102 H 97 12/17/19 04:00 36.9 C 79 18 145/95 H 96 12/17/19 01:07 63 12/16/19 22:00 36.8 C 75 20 158/102 H 94 (1) Alcohol intoxication Complication of substance-induced condition: uncomplicated Qualified Code(s): F10.920 - Alcohol use, unspecified with intoxication, uncomplicated
[2019-12-17] MEDS ORDERED: cloNIDine HCL 0.1 MG TAB PO PRN (08:17)
[2019-12-17] MEDS: GABAPENTIN 300 MG CAP PO SCH ×3 (08:21→20:03)
[2019-12-17] MEDS: lisinopriL 20 MG TAB PO SCH (08:21)
[2019-12-17] MEDS: FLUOXETINE HCL 10 MG CAP PO SCH (08:22)
[2019-12-17] MEDS: THIAMINE HCL 100 MG TAB PO SCH (08:22)
[2019-12-17] MEDS: PANTOprazole 40 MG TAB PO SCH (08:22)
[2019-12-17] MEDS: carvediloL 3.125 MG TAB PO SCH (08:22)
[2019-12-17] MEDS: FOLIC ACID 1 MG TAB PO SCH (08:22)
[2019-12-17] MEDS: MAGNESIUM SULFATE / D5W 1 GM/100 ML BAG IV SCH ×2 (09:07→11:14)
[2019-12-18] MEDS: GABAPENTIN 600 MG TAB PO SCH (03:47)
[2019-12-18] MEDS: MoRPHine SULFATE 2 MG/ML CARP IV PRN ×3 (04:11→08:17)
[2019-12-18 06:09] LABS: Hematocrit (blood only) 35.8 % (42-52); Hemoglobin 12.2 g/dL (14.0-18.0); Mean Corpuscular Hemoglobin 30.8 pg (25-34); Mean Corpuscular Hgb Conc 34.1 g/dL (32-36); Mean Corpuscular Volume 90.4 fL (80-100); Mean Platelet Volume 10.1 fL (7.4-10.4); Platelet Count 133 K/uL (130-400); RDW Coefficient of Variation 12.4 % (11.5-14.5); Red Blood Count 3.96 M/uL (4.7-6.1); White Blood Count 4.57 K/uL (4.8-10.8)
[2019-12-18 06:48] LABS: Alanine Aminotransferase 51 U/L (12-78); Aspartate Aminotransferase 37 U/L (15-37); BUN Creatinine Ratio 4.7 (10-20); Blood Urea Nitrogen 3 mg/dl (7-18); Calcium 9.3 mg/dl (8.5-10.1); Carbon Dioxide 26 mmol/L (21-32); Chloride 98 mmol/L (98-107); Est GFR (African American) 129.4; Est GFR (Non-African American) 111.6; Glucose 149 mg/dl (70-99); Lipase 414 U/L (73-393); Magnesium 1.6 mg/dl (1.8-2.4); Potassium 3.4 mmol/L (3.5-5.1); Sodium 132 mmol/L (136-145)
[2019-12-18 07:11] LABS: Albumin Globulin Ratio 0.7 (0.9-2); Alkaline Phosphatase 131 U/L (45-117); Bilirubin,Total 1.9 mg/dl (0.2-1); Globulin 4.1 gm/dl (2.5-4.0); Phosphorus 3.1 mg/dl (2.5-4.9); Total Protein 7.1 gm/dl (6.4-8.2)
[2019-12-18] MEDS: PANTOprazole 40 MG TAB PO SCH (08:17)
[2019-12-18] MEDS: THIAMINE HCL 100 MG TAB PO SCH (08:17)
[2019-12-18] MEDS: FOLIC ACID 1 MG TAB PO SCH (08:17)
[2019-12-18] MEDS: FLUOXETINE HCL 10 MG CAP PO SCH (08:17)
[2019-12-18] MEDS: carvediloL 3.125 MG TAB PO SCH (08:17)
[2019-12-18] MEDS: GABAPENTIN 300 MG CAP PO SCH (08:17)
[2019-12-18] MEDS: lisinopriL 20 MG TAB PO SCH (08:17)
--- NOTE | 2019-12-18 08:48 | Discharge Summary ---
Date of Service December 18, 2019 Admission HPI Per Admitting Provider This is a 59 yo male with hx of chronic alcohol abuse , alcoholic liver disease , multiple admissions in past due to alcoholic pancreatitis , the last one was 4 weeks back , pt reports of continued drinking excessively after being discharged from [facility] last evening drank a pint of liquor , woke up this morning with epigastirc abdominal pain , nausea had few episodes of vomiting no blood in vomit no fever or chill no complain of cough , no chest pain or SOB no dark stool or blood in stool pts blood ETOH level > 200 , lipase > 3000 Admission Exam Per Admitting Provider Constitutional: WD/WN, vitals as above + intoxicated appearing Eyes: PERRL, conjunctivae normal, anicteric sclerae ENMT: external ear and nose normal, oropharynx normal Neck: trachea midline, no thyromegaly Respiratory: normal respiratory effort, lungs clear to auscultation Cardiovascular: RRR, no murmur, no edema Gastrointestinal (Abdomen): Percussion/Palpation: + abdomen tender (at epigastric/upper abdominal area) and abdomen soft Musculoskeletal: no cyanosis or clubbing, extremities motor strength 5/5 (right BKA amputation ) Extremities: + amputation noted (right bka ) Skin: no rashes, warm and dry Neurologic: patellar DTR's 2+ bilat, sensation intact Psychiatric: A+Ox3, euthymic affect Principal Diagnosis Alcohol Intoxication Pancreatitis Discharge Exam See Below Discharge Data Allergies Allergy/AdvReac Type Severity Reaction Status Date / Time No Known Allergies Allergy Verified 12/16/19 14:17 Consultations 12/16/19 13:41 ED Decision to Admit Stat 12/16/19 14:17 Consult Case Management - Discharge Planning Routine Ordered Studies 12/16/19 12:12 CT abd pelvis wo con Stat 12/18/19 12/18/19 Range/Units 05:26 05:26 WBC 4.57 L (4.8-10.8) K/uL RBC 3.96 L (4.7-6.1) M/uL Hgb 12.2 L (14.0-18.0) g/dL Hct 35.8 L (42-52) % MCV 90.4 (80-100) fL MCH 30.8 (25-34) pg MCHC 34.1 (32-36) g/dL RDW Std Deviation 41.0 (36.4-46.3) fL RDW Coeff of Miguel 12.4 (11.5-14.5) % Plt Count 133 (130-400) K/uL MPV 10.1 (7.4-10.4) fL Sodium 132 L (136-145) mmol/L Potassium 3.4 L (3.5-5.1) mmol/L Chloride 98 (98-107) mmol/L Carbon Dioxide 26 (21-32) mmol/L Anion Gap 8.0 (3-11) BUN 3 L (7-18) mg/dl Creatinine 0.60 (0.6-1.4) mg/dl Est Cr Clr Drug Dosing Not Reportable Est GFR ( Amer) 129.4 Est GFR (Non-Af Amer) 111.6 BUN/Creatinine Ratio 4.7 L (10-20) Glucose 149 H (70-99) mg/dl Calcium 9.3 (8.5-10.1) mg/dl Phosphorus 3.1 (2.5-4.9) mg/dl Magnesium 1.6 L (1.8-2.4) mg/dl Total Bilirubin 1.9 H (0.2-1) mg/dl AST 37 (15-37) U/L ALT 51 (12-78) U/L Alkaline Phosphatase 131 H (45-117) U/L Total Protein 7.1 (6.4-8.2) gm/dl Albumin 3.0 L (3.4-5.0) gm/dl Globulin 4.1 H (2.5-4.0) gm/dl Albumin/Globulin Ratio 0.7 L (0.9-2) Lipase 414 H (73-393) U/L Hospital Course (1) Alcohol intoxication: History of chronic alcohol abuse Recent admission 4 weeks alcohol with similar complaint of admitted to medical floor, alcohol withdrawal protocol Patient is counseled numerous times for strict abstinence from alcohol Social service consulted for recommendation of alcohol rehab if patient is interested Alcoholic pancreatitis: due excessive alcohol intake S .ETOH> 200 Presented with abdominal pain nausea vomiting, lipase elevated CT abdomen pelvis as above Order for bowel rest n.p.o. IV fluids, pain control, repeat lipase level in a.m. Hypertension: BP moderately elevated, systolic 167/diastolic 106 Stable secondary to alcohol withdrawal abdominal pain due to pancreatitis Continue outpatient meds with Coreg and lisinopril Monitor in telemetry Transaminitis: Possible secondary to acute alcoholic hepatitis Continue management of alcohol withdrawal as above, IV fluids Ordered for hepatitis panel, due to history of drug abuse LFTs improving CODE STATUS: Full code DVT prophylaxis SCD and teds, patient is encouraged to ambulate Labs Checked, advance diet and DC home ROS-No Headache, No Visual Changes, No Nausea, No Vomiting, No Fever, No Chills, No Neck Pain or Stiffness, No Chest Pain, No Palpitations, No SOB, No VILLEDA, No Cough, No Sputum, No Wheezing, No Abdominal Pain, No Diarrhea, No Hematemesis, No Hemoptysis, No Unexpected Weight Loss, No Flank pain, No Melena, No Hematochezia, No Frequency, No Urgency, No Burning, No Hematuria, No Rashes, No Diaphoresis. Appetite is Normal Physical Exam Gen-AAO x 3, NAD, Afebrile Head-NCAT, EOMI, PERRLA, Anicteric Sclera, No Posterior Pharyngeal Erythema Neck-Supple, No JVD, No Thyromegaly, No Masses, No LAD, No Bruits Lungs-Clear to Auscultation Bilaterally, No Rales, No Rhonchi, No Wheezing, No Crepitus Chest-No S4, +S1, +S2, No S3, No Murmurs, No Rubs, No Gallops, No Ectopy Abdomen-Soft, Bowel Sounds Present, Non Tender, Non Distended, No Hepatomegaly, No Splenomegaly, No Palpable Masses, No Rebound, No Rigidity, No Guarding Musculoskeletal-Full Range of Motion Bilaterally, No CVAT Extremities-No Cyanosis, No Clubbing, No Edema, B BKA Nuero-Cranial Nerves II-XII grossly intact, Motor WNL, DTRs WNL, Strength WNL, Non Focal Psych-Normal Mood Total Time Total Time Spent Total Time Spent (In Minutes): 45 mins Total Time Includes: Examination of the Patient, Discharge Planning, Medication Reconciliation and Communication With Other Providers Discharge Plan Discharge Items Patient Disposition: Home - Self-Care Reason For Visit: ALCOHOLIC INTOXICATION, PANCREATITIS Discharge Diagnosis: Alcohol Intoxication Pancreatitis Condition on Discharge: Good Health Concerns: Drinking Activity: Resume your previous activity Lifting: Gradually increase as tolerated Bathing: No limitations Sexual Activity: When tolerated Exercise/Sports: Gradually increase as tolerated Driving/Machine Use: No limitations Non-emergency contact: Primary Care Provider Call non-emergency contact if: you have any medication questions Follow-up/Referrals: Liyah Oseguera MD [Primary Care Provider] - Diet: Regular Addtl Attending Provider Instructions: Stop Drinking Pending Studies at Discharge: No Stand-Alone Forms: [facility] [employer] Clothes, Smoking Cessation Medications and DC Order Prescriptions: New folic acid 1 mg Tablet 1 mg PO QAM Qty: 30 RF: 0 Continued omeprazole 40 mg Capsule,Delayed Release(Dr/Ec) 40 mg PO QAM RF: 0 gabapentin [Neurontin] 100 mg Capsule 300 mg PO TID RF: 0 polyethylene glycol 3350 17 gram/dose powder 17 g PO DAILY PRN (Reason: Constipation) RF: 0 sennosides-docusate sodium [Senna with Docusate Sodium] 8.6-50 mg Tablet 2 tab PO DAILY PRN (Reason: Constipation) RF: 0 albuterol sulfate [Proventil HFA] 90 mcg/actuation Hfa Aerosol Inhaler 2 puff Inhalation Q4H PRN (Reason: Shortness Of Breath) RF: 0 fluoxetine 10 mg capsule 10 mg PO DAILY RF: 0 thiamine HCl (vitamin B1) [Vitamin B-1] 100 mg tablet 100 mg PO QAM RF: 0 lisinopril 20 mg Tablet 20 mg PO DAILY RF: 0 carvedilol 3.125 mg Tablet 3.125 mg PO DAILY RF: 0 hydrocortisone acet-aloe vera 2 % Lotion 1 applic TOPICAL DIRECTED PRN (Reason: Skin Irritation) RF: 0 Discharge Orders: Discharge Order (Routine); Ordered 12/18/19 Ordered By: Ke Paredes Admission Data Admit Date/Time: 12/16/19 14:14 Attending Provider: Ke Paredes Admit Provider: Bel Vu Primary Care Provider: Liyah Oseguera Other Providers: Bel Vu
[2019-12-18] MEDS ORDERED: GABAPENTIN 600 MG TAB PO SCH (16:00)
[2019-12-19 10:29] LABS: Codeine Urine NEGATIVE ng/mL (<50); Hydrocodone Urine NEGATIVE ng/mL (<50); Hydromor Urine NEGATIVE ng/mL (<50); Marijuana Quant, GCMS Urine 146 ng/mL (<5); Morphine Urine 1730 ng/mL (<50); Norhydrocodone Conf Ur NEGATIVE ng/mL (<50); Noroxycodone Urine NEGATIVE ng/mL (<50); Oxycodone Urine NEGATIVE ng/mL (<50); Oxymorph Urine NEGATIVE ng/mL (<50)
[2019-12-20] MEDS ORDERED: GABAPENTIN 600 MG TAB PO SCH (04:00)
== END 2019-12-18 09:45 | disposition home or self-care (01) | DRG 897 ==
LOC: ED 12:04 → 2W 14:14 → SUATTDRO 14:14 → 2W 14:42

== ENCOUNTER 2020-11-26 13:42 | Inpatient (IN) ==
[2020-11-26] MEDS ORDERED: LORazepam 1 MG/2 ML VIAL IV STA (15:23)
[2020-11-26 15:57] LABS: Basophils # (auto) 0.01 K/uL (0-0.2); Basophils % (auto) 0.2 %; Eosinophils # (auto) 0.06 K/uL (0-0.5); Eosinophils % (auto) 1.3 %; Hematocrit (blood only) 36.6 % (42-52); Hemoglobin 13.4 g/dL (14.0-18.0); Immature Granulocytes # (auto) 0.02 K/uL (0.00-0.02); Immature Granulocytes % (auto) 0.4 %; Lymphocytes # (auto) 1.09 K/uL (1.2-3.4); Lymphocytes % (auto) 23.2 %; Mean Corpuscular Hemoglobin 30.7 pg (25-34); Mean Corpuscular Hgb Conc 36.6 g/dL (32-36); Mean Corpuscular Volume 83.8 fL (80-100); Mean Platelet Volume 9.9 fL (7.4-10.4); Monocytes # (auto) 1.29 K/uL (0.11-0.59); Monocytes % (auto) 27.4 %; Neutrophils # (auto) 2.23 K/uL (1.4-6.5); Neutrophils % (auto) 47.5 %; Platelet Count 166 K/uL (130-400); RDW Coefficient of Variation 12.1 % (11.5-14.5); RDW Standard Deviation 37.2 fL (36.4-46.3); Red Blood Count 4.37 M/uL (4.7-6.1)
--- NOTE | 2020-11-26 16:05 | Emergency Department Note ---
Impression & Plan Alcohol withdrawal, Acute hyponatremia, Hypokalemia ED Provider Note NAME: ETHAN STEWART AGE: 60 SEX: M : 1960 ARRIVES VIA: Walk-In INFORMANT: Patient, ED PROVIDER(S): Kevin Phillips DO CHIEF COMPLAINT: Shaky HPI: The patient is a 60-year-old male who presented to the emergency department for generalized shaking. The patient has a history of alcohol use. He did drink alcohol today but also last evening. He has had withdrawal in the past but states this does not feel the same. He used to take Neurontin and stopped that medication a few weeks ago. He denies having any vomiting. He denies having any chest pain. He does have some dyspnea on exertion and cough but states he does use tobacco products and thinks it is consistent with his history of COPD. The patient has not seen his family doctor recently. He states he has been compliant with all of his outpatient medication regimen otherwise. He has not had any recent falls. He denies having any headaches. ROS: See above HPI for pertinent positives & negatives. A total of 10 systems reviewed and were otherwise negative. PAST MEDICAL HISTORY: See Below PAST SURGICAL HISTORY: See Below FAMILY HISTORY: See Below SOCIAL HISTORY: See Below HOME MEDICATIONS: See Below ALLERGIES: See Below VITALS: See Below PHYSICAL EXAMINATION: GENERAL: The patient is awake and alert. He is somewhat anxious appearing. EYES: The conjunctivae are clear. The pupils are round and reactive. EARS, NOSE, MOUTH AND THROAT: The nose is without any evidence of any deformity. NECK: The neck is nontender and supple. RESPIRATORY: Scattered rhonchi were noted throughout. There was no significant tachypnea. CARDIOVASCULAR: Regular rate and rhythm noted there no murmurs rubs or gallops normal S1 normal S2. GASTROINTESTINAL: The abdomen is soft. Abdomen is nontender. MUSCULOSKELETAL/EXTREMITIES: Right lower extremity previous amputation was noted. SKIN: Skin was warm and dry. There is no significant edema in the left lower extremity. NEUROLOGIC: Patient is awake alert and oriented x3. The patient has a fine tremor noted. MEDICAL DECISION MAKING: The patient is a 60-year-old male who presented to the emergency department for an evaluation of restlessness. The patient appeared to have some degree of alcohol withdrawal. He was treated with IV fluids and Ativan in the emergency department. He was reevaluated multiple times. He was also found to have significant hyponatremia. I discussed the patient's laboratory and radiographic studies with him. I also discussed his case with the on-call [facility] group. They have agreed to evaluate the patient in the emergency department for further management and disposition. When he was evaluated by the [facility] group he was less responsive. I feel this is secondary to the benzodiazepines but CT the head was obtained. Triage Nursing notes reviewed. Prior medical records reviewed Vital Signs: reviewed and remarkable for hypertension Differential diagnosis: Infection, dehydration, metabolic abnormality, hypo/hyperglycemia, electrolyte disturbance, anemia, hypoxia, cardiac sources, intracerebral event, toxicologic, neurologic, as well as other pathologies. ER treatment provided: See below Diagnostics interpreted by me: ECG: EKG was obtained in the emergency department. My interpretation is normal sinus rhythm at 95 bpm. There was no ectopy. There was no acute ST segment abnormalities. This was compared to a tracing from December 152019. No significant changes were noted. Cardiac Monitoring: An order was placed for continuous cardiac monitoring. The monitor shows a rate of 96 bpm with sinus rhythm. Laboratory studies: As stated above and show below. Imaging studies: See below Consultation(s): 4130: I discussed this case with Sherron who is on-call for the [facility] hospitalist group. Past Med/Surg History Medical History (Updated 11/26/20 @ 22:07 by Kevin Phillips DO) Alcohol dependence a fifth of liquor and 12 beers daily for yrs. Depression ETOH abuse GERD (gastroesophageal reflux disease) HLD (hyperlipidemia) HTN (hypertension) Hx of hematuria Hx of pancreatitis Obesity Pancreatitis, alcoholic, acute Pancreatitis, recurrent Phantom pain after amputation of lower extremity Tobacco abuse Surgical History Complete below knee amputation of right lower extremity History of mandibular surgery BROKEN JAW 1978 History of tooth extraction ALL TEETH REMOVED Hx of right BKA 2013 s/p fracture of tibia/fibula with associated infection Family History Sister Family history of diabetes mellitus Brother Pancreatic carcinoma Social History Smoking Status: Current every day smoker Years Smoked: 40; Cigarettes Per Day: 10; Second Hand Exposure: No; Hx Alcohol Use: Yes Alcohol type: beer and hard liquor Alcohol Intake Frequency Comment: 12 pack of beer daily along with 1/5 of vodka Hx Substance Use: Yes Last Used Substance: Hours (ago) Last Used Substance Other:: yesterday Preferred Language: Kazakh Communication Ability: Effective Claims Technician Required: No Beliefs That Will Affect Care: None marital status: Single Current Living Situation: Other Current Living Situation Comment: lives with roomate Other Information That Helps Us Care for You: No Feels Safe at Home: Yes Safety Concerns: Feels Safe At This Time Assistive Devices: Cane Allergies Allergies Allergy/AdvReac Type Severity Reaction Status Date / Time No Known Allergies Allergy Verified 11/26/20 17:29 Home Meds Home Medications Medication Instructions Recorded Confirmed No Known Home Medications 11/26/20 11/26/20 Results & Data (ED) Vital Signs Vital Signs - 24 hr 11/26/20 14:08 11/26/20 15:54 11/26/20 16:05 Temperature 36.5 C Temperature Source Skin Pulse Rate 110 H 105 H 102 H Pulse Rate from SpO2 Sensor 106 H 102 H Respiratory Rate 22 19 28 H Respiratory Effort / Characteristics Non-Labored Spontaneous Respiratory Depth Normal Blood Pressure 179/101 H 159/97 H Blood Pressure Mean 127 117 Blood Pressure Position Sitting Pulse Oximetry 87 L 97 97 Oxygen Delivery Method Room Air Sepsis Recent Fever Within 48 Hours No Sepsis New/Unexplained Change in Mental Status N/A Sepsis Action Taken by Nursing No Action Required 11/26/20 16:10 11/26/20 16:20 11/26/20 16:30 Temperature Temperature Source Pulse Rate 118 H 109 H 108 H Pulse Rate from SpO2 Sensor Respiratory Rate 21 24 20 Respiratory Effort / Characteristics Respiratory Depth Blood Pressure Blood Pressure Mean Blood Pressure Position Pulse Oximetry Oxygen Delivery Method Sepsis Recent Fever Within 48 Hours Sepsis New/Unexplained Change in Mental Status Sepsis Action Taken by Nursing 11/26/20 16:40 11/26/20 16:42 11/26/20 16:50 Temperature Temperature Source Pulse Rate 104 H 103 H Pulse Rate from SpO2 Sensor 104 H 104 H Respiratory Rate 21 25 H Respiratory Effort / Characteristics Respiratory Depth Blood Pressure Blood Pressure Mean Blood Pressure Position Pulse Oximetry 96 92 Oxygen Delivery Method Room Air Sepsis Recent Fever Within 48 Hours Sepsis New/Unexplained Change in Mental Status Sepsis Action Taken by Nursing 11/26/20 17:00 11/26/20 17:10 11/26/20 17:20 Temperature Temperature Source Pulse Rate 105 H 101 H 98 H Pulse Rate from SpO2 Sensor 105 H 93 H 99 H Respiratory Rate 25 H 26 H 21 Respiratory Effort / Characteristics Respiratory Depth Blood Pressure Blood Pressure Mean Blood Pressure Position Pulse Oximetry 94 90 95 Oxygen Delivery Method Sepsis Recent Fever Within 48 Hours Sepsis New/Unexplained Change in Mental Status Sepsis Action Taken by Nursing 11/26/20 17:30 11/26/20 17:40 11/26/20 17:50 Temperature Temperature Source Pulse Rate 95 H 105 H 94 H Pulse Rate from SpO2 Sensor 83 Respiratory Rate 24 27 H 22 Respiratory Effort / Characteristics Respiratory Depth Blood Pressure 154/121 H Blood Pressure Mean 132 Blood Pressure Position Pulse Oximetry 84 L Oxygen Delivery Method Sepsis Recent Fever Within 48 Hours Sepsis New/Unexplained Change in Mental Status Sepsis Action Taken by Nursing 11/26/20 18:08 11/26/20 18:10 11/26/20 18:11 Temperature Temperature Source Pulse Rate 103 H 98 H 101 H Pulse Rate from SpO2 Sensor 104 H 98 H 101 H Respiratory Rate 20 32 H 23 Respiratory Effort / Characteristics Respiratory Depth Blood Pressure 143/98 H Blood Pressure Mean 113 Blood Pressure Position Pulse Oximetry 98 94 97 Oxygen Delivery Method Sepsis Recent Fever Within 48 Hours Sepsis New/Unexplained Change in Mental Status Sepsis Action Taken by Nursing 11/26/20 18:20 Temperature Temperature Source Pulse Rate 99 H Pulse Rate from SpO2 Sensor Respiratory Rate 25 H Respiratory Effort / Characteristics Respiratory Depth Blood Pressure Blood Pressure Mean Blood Pressure Position Pulse Oximetry Oxygen Delivery Method Sepsis Recent Fever Within 48 Hours Sepsis New/Unexplained Change in Mental Status Sepsis Action Taken by [facility] Medications Current Medication List: was personally reviewed by me Laboratory Data Attestation: I reviewed the patient's lab results. Result diagrams: 11/26/20 15:36 11/26/20 20:43 Lab Results 11/26/20 11/26/20 11/26/20 Range/Units 15:05 15:05 15:05 WBC (4.8-10.8) K/uL RBC (4.7-6.1) M/uL Hgb (14.0-18.0) g/dL Hct (42-52) % MCV (80-100) fL MCH (25-34) pg MCHC (32-36) g/dL RDW Std Deviation (36.4-46.3) fL RDW Coeff of Miguel (11.5-14.5) % Plt Count (130-400) K/uL MPV (7.4-10.4) fL Immature Gran % (Auto) % Neut % (Auto) % Lymph % (Auto) % [place] % (Auto) % Eos % (Auto) % Baso % (Auto) % Neut # (Auto) (1.4-6.5) K/uL Lymph # (Auto) (1.2-3.4) K/uL [place] # (Auto) (0.11-0.59) K/uL Eos # (Auto) (0-0.5) K/uL Baso # (Auto) (0-0.2) K/uL Immature Gran # (Auto) (0.00-0.02) K/uL PT (9.0-12.0) Seconds INR (0.9-1.1) APTT (21.0-31.0) Seconds PTT Ratio Sodium (136-145) mmol/L Potassium (3.5-5.1) mmol/L Chloride (98-107) mmol/L Carbon Dioxide (21-32) mmol/L Anion Gap (3-11) BUN (7-18) mg/dl Creatinine (0.6-1.4) mg/dl Est Cr Clr Drug Dosing ml/min Est GFR ( Amer) ml/min Est GFR (Non-Af Amer) ml/min BUN/Creatinine Ratio (10-20) Glucose (70-99) mg/dl Osmolality (280-300) mOsm/kg Calcium (8.5-10.1) mg/dl Magnesium (1.8-2.4) mg/dl Total Bilirubin (0.2-1) mg/dl AST (15-37) U/L ALT (12-78) U/L Alkaline Phosphatase (45-117) U/L Troponin I (0-0.045) ng/ml NT-Pro-B Natriuret Pep (0-900) pg/ml Total Protein (6.4-8.2) gm/dl Albumin (3.4-5.0) gm/dl Globulin (2.5-4.0) gm/dl Albumin/Globulin Ratio (0.9-2) Lipase (73-393) U/L TSH (0.300-4.500) uIu/ml Urine Color [place] Urine Appearance Turbid A (Clear) Urine pH 6.0 (4.5-7.5) Ur Specific [place] 1.010 (1.000-1.030) Urine Protein Trace H (Negative) Urine Glucose (UA) Negative (Negative) Urine Ketones 1+ H (Negative) Urine Blood Negative (Negative) Urine Nitrite Negative (Negative) Urine Bilirubin Negative (Negative) Urine Urobilinogen Negative (Negative) Ur Leukocyte Esterase Trace H (Negative) Urine WBC (Auto) 1-5 (0-5) /hpf Urine RBC (Auto) 0-4 (0-4) /hpf U Hyaline Cast (Auto) 1-5 (0-5) /lpf U Epithel Cells (Auto) 10-20 H (0-5) /lpf Urine Bacteria (Auto) Negative (Negative) Urine Osmolality 205 L (500-800) mOsm/kg Ur Random Sodium 15 mmol/L Urine Opiates Screen (Neg) Ur Methadone, Qual (Neg) Urine Barbiturates (Neg) Ur Phencyclidine (PCP) (Neg) U Amphetamin/Meth Scrn (Neg) MDMA (Ecstasy) Screen (Neg) U Benzodiazepines Scrn (Neg) Ur Cocaine Metabolite (Neg) U Marijuana (THC) Screen (Neg) Ethyl Alcohol mg/dL (0-3) mg/dl COVID-19 Eval Order SARS-CoV-2 (PCR) (Negative) 11/26/20 11/26/20 11/26/20 Range/Units 15:05 15:36 15:36 WBC 4.70 L (4.8-10.8) K/uL RBC 4.37 L (4.7-6.1) M/uL Hgb 13.4 L (14.0-18.0) g/dL Hct 36.6 L (42-52) % MCV 83.8 (80-100) fL MCH 30.7 (25-34) pg MCHC 36.6 H (32-36) g/dL RDW Std Deviation 37.2 (36.4-46.3) fL RDW Coeff of Miguel 12.1 (11.5-14.5) % Plt Count 166 (130-400) K/uL MPV 9.9 (7.4-10.4) fL Immature Gran % (Auto) 0.4 % Neut % (Auto) 47.5 % Lymph % (Auto) 23.2 % [place] % (Auto) 27.4 % Eos % (Auto) 1.3 % Baso % (Auto) 0.2 % Neut # (Auto) 2.23 (1.4-6.5) K/uL Lymph # (Auto) 1.09 L (1.2-3.4) K/uL [place] # (Auto) 1.29 H (0.11-0.59) K/uL Eos # (Auto) 0.06 (0-0.5) K/uL Baso # (Auto) 0.01 (0-0.2) K/uL Immature Gran # (Auto) 0.02 (0.00-0.02) K/uL PT 10.3 (9.0-12.0) Seconds INR 1.0 (0.9-1.1) APTT 31.6 H (21.0-31.0) Seconds PTT Ratio 1.2 Sodium (136-145) mmol/L Potassium (3.5-5.1) mmol/L Chloride (98-107) mmol/L Carbon Dioxide (21-32) mmol/L Anion Gap (3-11) BUN (7-18) mg/dl Creatinine (0.6-1.4) mg/dl Est Cr Clr Drug Dosing ml/min Est GFR ( Amer) ml/min Est GFR (Non-Af Amer) ml/min BUN/Creatinine Ratio (10-20) Glucose (70-99) mg/dl Osmolality (280-300) mOsm/kg Calcium (8.5-10.1) mg/dl Magnesium (1.8-2.4) mg/dl Total Bilirubin (0.2-1) mg/dl AST (15-37) U/L ALT (12-78) U/L Alkaline Phosphatase (45-117) U/L Troponin I (0-0.045) ng/ml NT-Pro-B Natriuret Pep (0-900) pg/ml Total Protein (6.4-8.2) gm/dl Albumin (3.4-5.0) gm/dl Globulin (2.5-4.0) gm/dl Albumin/Globulin Ratio (0.9-2) Lipase (73-393) U/L TSH (0.300-4.500) uIu/ml Urine Color Urine Appearance (Clear) Urine pH (4.5-7.5) Ur Specific [place] (1.000-1.030) Urine Protein (Negative) Urine Glucose (UA) (Negative) Urine Ketones (Negative) Urine Blood (Negative) Urine Nitrite (Negative) Urine Bilirubin (Negative) Urine Urobilinogen (Negative) Ur Leukocyte Esterase (Negative) Urine WBC (Auto) (0-5) /hpf Urine RBC (Auto) (0-4) /hpf U Hyaline Cast (Auto) (0-5) /lpf U Epithel Cells (Auto) (0-5) /lpf Urine Bacteria (Auto) (Negative) Urine Osmolality (500-800) mOsm/kg Ur Random Sodium mmol/L Urine Opiates Screen Neg (Neg) Ur Methadone, Qual Neg (Neg) Urine Barbiturates Neg (Neg) Ur Phencyclidine (PCP) Neg (Neg) U Amphetamin/Meth Scrn Neg (Neg) MDMA (Ecstasy) Screen Neg (Neg) U Benzodiazepines Scrn Neg (Neg) Ur Cocaine Metabolite Neg (Neg) U Marijuana (THC) Screen Pos H (Neg) Ethyl Alcohol mg/dL (0-3) mg/dl COVID-19 Eval Order SARS-CoV-2 (PCR) (Negative) 11/26/20 11/26/20 11/26/20 Range/Units 15:36 15:36 15:45 WBC (4.8-10.8) K/uL RBC (4.7-6.1) M/uL Hgb (14.0-18.0) g/dL Hct (42-52) % MCV (80-100) fL MCH (25-34) pg MCHC (32-36) g/dL RDW Std Deviation (36.4-46.3) fL RDW Coeff of Miguel (11.5-14.5) % Plt Count (130-400) K/uL MPV (7.4-10.4) fL Immature Gran % (Auto) % Neut % (Auto) % Lymph % (Auto) % [place] % (Auto) % Eos % (Auto) % Baso % (Auto) % Neut # (Auto) (1.4-6.5) K/uL Lymph # (Auto) (1.2-3.4) K/uL [place] # (Auto) (0.11-0.59) K/uL Eos # (Auto) (0-0.5) K/uL Baso # (Auto) (0-0.2) K/uL Immature Gran # (Auto) (0.00-0.02) K/uL PT (9.0-12.0) Seconds INR (0.9-1.1) APTT (21.0-31.0) Seconds PTT Ratio Sodium 115 L* (136-145) mmol/L Potassium 3.0 L (3.5-5.1) mmol/L Chloride 72 L (98-107) mmol/L Carbon Dioxide 25 (21-32) mmol/L Anion Gap 19.0 H (3-11) BUN 17 (7-18) mg/dl Creatinine 1.64 H (0.6-1.4) mg/dl Est Cr Clr Drug Dosing 51.2 ml/min Est GFR ( Amer) 52.6 ml/min Est GFR (Non-Af Amer) 45.4 ml/min BUN/Creatinine Ratio 10.1 (10-20) Glucose 108 H (70-99) mg/dl Osmolality 258 L (280-300) mOsm/kg Calcium 9.7 (8.5-10.1) mg/dl Magnesium 2.1 (1.8-2.4) mg/dl Total Bilirubin 2.1 H (0.2-1) mg/dl AST 36 (15-37) U/L ALT 43 (12-78) U/L Alkaline Phosphatase 163 H (45-117) U/L Troponin I < 0.015 (0-0.045) ng/ml NT-Pro-B Natriuret Pep 49 (0-900) pg/ml Total Protein 9.0 H (6.4-8.2) gm/dl Albumin 4.4 (3.4-5.0) gm/dl Globulin 4.6 H (2.5-4.0) gm/dl Albumin/Globulin Ratio 1.0 (0.9-2) Lipase 90 (73-393) U/L TSH 1.200 (0.300-4.500) uIu/ml Urine Color Urine Appearance (Clear) Urine pH (4.5-7.5) Ur Specific [place] (1.000-1.030) Urine Protein (Negative) Urine Glucose (UA) (Negative) Urine Ketones (Negative) Urine Blood (Negative) Urine Nitrite (Negative) Urine Bilirubin (Negative) Urine Urobilinogen (Negative) Ur Leukocyte Esterase (Negative) Urine WBC (Auto) (0-5) /hpf Urine RBC (Auto) (0-4) /hpf U Hyaline Cast (Auto) (0-5) /lpf U Epithel Cells (Auto) (0-5) /lpf Urine Bacteria (Auto) (Negative) Urine Osmolality (500-800) mOsm/kg Ur Random Sodium mmol/L Urine Opiates Screen (Neg) Ur Methadone, Qual (Neg) Urine Barbiturates (Neg) Ur Phencyclidine (PCP) (Neg) U Amphetamin/Meth Scrn (Neg) MDMA (Ecstasy) Screen (Neg) U Benzodiazepines Scrn (Neg) Ur Cocaine Metabolite (Neg) U Marijuana (THC) Screen (Neg) Ethyl Alcohol mg/dL 21.9 H (0-3) mg/dl COVID-19 Eval Order SARS-CoV-2 (PCR) (Negative) 11/26/20 11/26/20 11/26/20 Range/Units 16:30 16:30 18:52 WBC (4.8-10.8) K/uL RBC (4.7-6.1) M/uL Hgb (14.0-18.0) g/dL Hct (42-52) % MCV (80-100) fL MCH (25-34) pg MCHC (32-36) g/dL RDW Std Deviation (36.4-46.3) fL RDW Coeff of Miguel (11.5-14.5) % Plt Count (130-400) K/uL MPV (7.4-10.4) fL Immature Gran % (Auto) % Neut % (Auto) % Lymph % (Auto) % [place] % (Auto) % Eos % (Auto) % Baso % (Auto) % Neut # (Auto) (1.4-6.5) K/uL Lymph # (Auto) (1.2-3.4) K/uL [place] # (Auto) (0.11-0.59) K/uL Eos # (Auto) (0-0.5) K/uL Baso # (Auto) (0-0.2) K/uL Immature Gran # (Auto) (0.00-0.02) K/uL PT (9.0-12.0) Seconds INR (0.9-1.1) APTT (21.0-31.0) Seconds PTT Ratio Sodium 118 L* (136-145) mmol/L Potassium 3.0 L (3.5-5.1) mmol/L Chloride 77 L (98-107) mmol/L Carbon Dioxide 28 (21-32) mmol/L Anion Gap 14.0 H (3-11) BUN 17 (7-18) mg/dl Creatinine 1.40 (0.6-1.4) mg/dl Est Cr Clr Drug Dosing 59.9 ml/min Est GFR ( Amer) 63.7 ml/min Est GFR (Non-Af Amer) 55.0 ml/min BUN/Creatinine Ratio 12.1 (10-20) Glucose 104 H (70-99) mg/dl Osmolality (280-300) mOsm/kg Calcium 8.8 (8.5-10.1) mg/dl Magnesium (1.8-2.4) mg/dl Total Bilirubin (0.2-1) mg/dl AST (15-37) U/L ALT (12-78) U/L Alkaline Phosphatase (45-117) U/L Troponin I (0-0.045) ng/ml NT-Pro-B Natriuret Pep (0-900) pg/ml Total Protein (6.4-8.2) gm/dl Albumin (3.4-5.0) gm/dl Globulin (2.5-4.0) gm/dl Albumin/Globulin Ratio (0.9-2) Lipase (73-393) U/L TSH (0.300-4.500) uIu/ml Urine Color Urine Appearance (Clear) Urine pH (4.5-7.5) Ur Specific [place] (1.000-1.030) Urine Protein (Negative) Urine Glucose (UA) (Negative) Urine Ketones (Negative) Urine Blood (Negative) Urine Nitrite (Negative) Urine Bilirubin (Negative) Urine Urobilinogen (Negative) Ur Leukocyte Esterase (Negative) Urine WBC (Auto) (0-5) /hpf Urine RBC (Auto) (0-4) /hpf U Hyaline Cast (Auto) (0-5) /lpf U Epithel Cells (Auto) (0-5) /lpf Urine Bacteria (Auto) (Negative) Urine Osmolality (500-800) mOsm/kg Ur Random Sodium mmol/L Urine Opiates Screen (Neg) Ur Methadone, Qual (Neg) Urine Barbiturates (Neg) Ur Phencyclidine (PCP) (Neg) U Amphetamin/Meth Scrn (Neg) MDMA (Ecstasy) Screen (Neg) U Benzodiazepines Scrn (Neg) Ur Cocaine Metabolite (Neg) U Marijuana (THC) Screen (Neg) Ethyl Alcohol mg/dL (0-3) mg/dl COVID-19 Eval Order Covid19 at [facility] SARS-CoV-2 (PCR) NEGATIVE (Negative) Administered Medications Discontinued Medications Lorazepam (Ativan) 1 mg in 2 mls @ 2 mls/min IV NOW STA Stop: 11/26/20 15:24 Last Admin: 11/26/20 16:02 Dose: 2 mls/min Documented by: [id number] Thiamine HCl 200 mg/ Sodium (Chloride) 52 mls @ 208 mls/hr IV NOW STA Stop: 11/26/20 16:52 Last Infusion: 11/26/20 17:24 Dose: 208 mls/hr Documented by: [id number] Admin: 11/26/20 17:09 Dose: 208 mls/hr Documented by: [id number] Sodium Chloride (Nss 1000ml) 1,000 mls @ 999 mls/hr IV .[id number] ONE Stop: 11/26/20 17:38 Last Infusion: 11/26/20 17:59 Dose: 999 mls/hr Documented by: [id number] Admin: 11/26/20 16:55 Dose: 999 mls/hr Documented by: [id number] Lorazepam (Ativan) 2 mg in 4 mls @ 4 mls/min IV NOW STA Stop: 11/26/20 16:39 Last Admin: 11/26/20 16:54 Dose: 4 mls/min Documented by: [id number] Potassium Chloride (K Lalo / Wtr) 10 meq in 100 mls @ 100 mls/hr IV ONE ONE Stop: 11/26/20 18:18 Last Infusion: 11/26/20 18:32 Dose: 100 mls/hr Documented by: [id number] Admin: 11/26/20 17:25 Dose: 100 mls/hr Documented by: [id number] Potassium Chloride (Potassium Chloride Crtab 20 Meq Tabcr) 20 meq PO NOW STA Stop: 11/26/20 17:20 Last Admin: 11/26/20 17:25 Dose: 20 meq Documented by: [id number] Imaging Data Radiologist's Impression: Chest X-Ray 11/26/20 15:20 XR chest 1V portable HISTORY: 60 years-old Male weakness acute weakness COMPARISON: Chest radiograph 12/16/2019 TECHNIQUE: Portable AP view of the chest FINDINGS: Cardiomediastinal and hilar silhouettes are within normal limits. No pneumothorax, pleural effusion, airspace consolidation or overt pulmonary edema. Mild chronic interstitial coarsening of the lateral right midlung. Ill-defined opacity projects over the anterior right fifth rib is favored to be summation density. Degenerative changes of the shoulders and spine. IMPRESSION: No acute process. ACT 112: Negative or not required by law. The above report was generated using voice recognition software. It may contain grammatical, syntax or spelling errors. Electronically signed by: Bj Karimi M.D. 11/26/2020 5:[address] 11/26/20 17:40 CT head/brain wo con CLINICAL HISTORY: 60 years-old Male with AMS. Acutely altered mental status TECHNIQUE: Multiple axial CT images of the head were obtained without contrast. A dose lowering technique was utilized adhering to the principles of ALARA. CT DOSE: 1228.53 mGy.cm COMPARISON: Head CT 11/13/2018. FINDINGS: Age-related involutional changes. White matter hypodensities suggestive of chronic microvascular ischemic disease have progressively worsened from comparison. Motion degraded exam. The study was then repeated. Chronic appearing lacunar infarcts of the bilateral lentiform nuclei are new from comparison. No acute intracranial hemorrhage, midline shift, intracranial mass, hydrocephalus, territorial ischemia or abnormal extra-axial collection. The calvarium is intact. The paranasal sinuses, mastoid air cells, and middle ear cavities are clear. IMPRESSION: 1. No acute intracranial hemorrhage, midline shift or acute territorial infarct. 2. Age-related involutional changes with patchy white matter hypodensities suggestive of chronic microvascular ischemic disease, progressed from comparison. Small embolic infarcts could appear similarly. 3. Remote appearing lacunar infarcts of the lentiform nuclei, new from 11/13/2018. ACT 112: Negative or not required by law. The above report was generated using voice recognition software. It may contain grammatical, syntax or spelling errors. Electronically signed by: Bj Karimi M.D. 11/26/2020 6:12 PM Discharge Plan Visit Data Chief Complaint: Illness Stated Complaint: SHAKING SINCE YESTERDAY,LOWER BACK PAIN ED Provider: Kevin Phillips Discharge Problem: Alcohol withdrawal, Acute hyponatremia, Hypokalemia Patient Disposition: Admitted As Inpatient Discharge Instructions Interventions: ED Discharge Assessment Last Done: 11/26/20 20:02 Discharge Problem: Alcohol withdrawal Qualifiers: Complication of substance-induced condition: with unspecified complication Qualified Code(s): F10.239 - Alcohol dependence with withdrawal, unspecified
[2020-11-26 16:08] LABS: Partial Thromboplastin Ratio 1.2; Partial Thromboplastin Time 31.6 Seconds (21.0-31.0); Prothrombin Time 10.3 Seconds (9.0-12.0)
[2020-11-26 16:15] LABS: Alanine Aminotransferase 43 U/L (12-78); Albumin Level 4.4 gm/dl (3.4-5.0); Aspartate Aminotransferase 36 U/L (15-37); BUN Creatinine Ratio 10.1 (10-20); Blood Urea Nitrogen 17 mg/dl (7-18); Calcium 9.7 mg/dl (8.5-10.1); Carbon Dioxide 25 mmol/L (21-32); Chloride 72 mmol/L (98-107); Creatinine Clr Calc Pharmacy 51.2 ml/min; Est GFR (African American) 52.6 ml/min; Est GFR (Non-African American) 45.4 ml/min; Glucose 108 mg/dl (70-99); Magnesium 2.1 mg/dl (1.8-2.4); Sodium 115 mmol/L (136-145)
[2020-11-26 16:26] LABS: Alkaline Phosphatase 163 U/L (45-117); Bilirubin,Total 2.1 mg/dl (0.2-1); Globulin 4.6 gm/dl (2.5-4.0); NT Pro B Type Natriuretic Pept 49 pg/ml (0-900); Troponin I < 0.015 ng/ml (0-0.045)
[2020-11-26] MEDS ORDERED: SODIUM CHLORIDE 0.9% 1000ML 1,000 ML IV ONE (16:38)
[2020-11-26] MEDS ORDERED: LORazepam 2 MG/4 ML VIAL IV STA (16:38)
[2020-11-26] MEDS ORDERED: THIAMINE HCL 200 MG in SODIUM CHLORIDE 0.9% 50 ML IV STA (16:38)
--- NOTE | 2020-11-26 17:09 | XRay Report ---
XR chest 1V portable HISTORY: 60 years-old Male weakness acute weakness COMPARISON: Chest radiograph 12/16/2019 TECHNIQUE: Portable AP view of the chest FINDINGS: Cardiomediastinal and hilar silhouettes are within normal limits. No pneumothorax, pleural effusion, airspace consolidation or overt pulmonary edema. Mild chronic interstitial coarsening of the lateral right midlung. Ill-defined opacity projects over the anterior right fifth rib is favored to be summat ion density. Degenerative changes of the shoulders and spine. IMPRESSION: No acute process. ACT 112: Negative or not required by law. The above report was generated using voice recognition software. It may contain grammatical, syntax o r spelling errors. Electronically signed by: Bj Karimi M.D. 11/26/2020 5:08 PM
[2020-11-26] MEDS ORDERED: POTASSIUM CHLORIDE CRTAB 20 MEQ TABCR PO STA ×2 (17:19→22:23)
[2020-11-26] MEDS ORDERED: POTASSIUM CHLORIDE / WTR 10 MEQ/100 ML PLCT IV ONE (17:19)
--- NOTE | 2020-11-26 17:45 | History & Physical Report ---
Date of Service November 26, 2020 Assessment & Plan (1) Hyponatremia: Pt is 60 y/o M with PMH HTN, HLD, alcohol abuse, tobacco abuse, h/o recurrent pancreatitis, depression, h/o noncompliance presented to ER with complaint of arms and legs shaking for a couple of weeks. Pt awakens to voice and slow to answer questions. Pt had 3mg ativan in ER and ER physician reports pt was awake, oriented with normal speech prior to Ativan administration. Na: 115, serum osmolality: 258, Urine osmolality: 205, urine random sodium: 15, TSH: 1.2 In ER was given 1L NSS Repeat sodium 118 Nephrology consult, spoke with Dr. Oseguera. Recommends fluid restriction at 1500 mL, NSS at 75 mL/hour and repeat BMP at 9 PM and then speak with on-call nephrology (2) ETOH abuse: Reports drinks half pint emily a day. Last drink this morning. ETOH level: 21 In ER given ativan 3mg IV total, thiamine IV Alcohol withdrawal protocol, monitor for withdrawal Folic acid, thiamine, multivitamin (3) Hypokalemia: K: 3.0, magnesium: 2.1 In ER was given 1K rider, 20 mEq potassium p.o. Replace and monitor (4) IDALIA (acute kidney injury): BUN: 17, Cr: 1.6 (Cr 0.7 in 2019) Repeat Cr at 1.4 after 1L NSS in ER Monitor renal functions, avoid nephrotoxic agents when possible (5) HTN (hypertension): In ER BP 179/101, 143/98 Previously was on carvedilol 3.125 daily and lisinopril 20 mg daily. Patient has not taken these medications for unknown amount of time Monitor BP, may need to restart BP meds DVT Prophylaxis -SCDs Full Code as per discussion with pt Follows with Dr Oseguera for routine care, however has not been seen for years Pt was seen and care coordinated with Dr Murrieta. See addendum History of Present Illness Chief Complaint: Shaking Primary Care Provider: Liyah Oseguera MD Pt is 60 y/o M with PMH HTN, HLD, alcohol abuse, tobacco abuse, h/o recurrent pancreatitis, depression, h/o noncompliance presented to ER with complaint of arms and legs shaking for a couple of weeks. History obtained from patient and record review. Pt awakens to voice and slow to answer questions. Pt had 3mg ativan in ER and ER physician reports pt was awake, oriented with normal speech prior to Ativan administration. Patient reports drinks half a pint of emily a day. Reports last drink this morning. He denies vomiting, diarrhea. Patient reports on mid abdominal pain that radiates to back. Patient states that he has not been taking any of his medications including his blood pressure medication and gabapentin for "awhile". I Called pt's pharmacy [facility] on [address] and he has not had medications filled since 02/15/2019 (Coreg 3.1251 tablet daily, lisinopril 20 mg daily, omeprazole 40 mg daily, ranitidine 150 mg daily, gabapentin 300 mg 1 capsule TID). Denies fever/chills, [place], dizziness, syncope, vision changes, neck pain, CP, SOB, cough, extremity edema, increased abdominal girth, rashes, urinary symptoms to this provider. Allergies Allergy/AdvReac Type Severity Reaction Status Date / Time No Known Allergies Allergy Verified 11/26/20 17:29 Home Medications Medication Instructions Recorded Confirmed Type No Known Home Medications 11/26/20 11/26/20 History Past Med/Surg History Medical History (Updated 11/27/20 @ 00:01 by [employer]) Alcohol dependence a fifth of liquor and 12 beers daily for yrs. Depression ETOH abuse GERD (gastroesophageal reflux disease) HLD (hyperlipidemia) HTN (hypertension) Hx of hematuria Hx of pancreatitis Obesity Pancreatitis, alcoholic, acute Pancreatitis, recurrent Phantom pain after amputation of lower extremity Tobacco abuse Surgical History Complete below knee amputation of right lower extremity History of mandibular surgery [facility] 1978 History of tooth extraction ALL TEETH REMOVED Hx of right BKA 2013 s/p fracture of tibia/fibula with associated infection Family History Sister Family history of diabetes mellitus Brother Pancreatic carcinoma Social History Smoking Status: Current every day smoker Years Smoked: 40; Cigarettes Per Day: 10; Second Hand Exposure: No; Hx Alcohol Use: Yes Alcohol type: beer and hard liquor Alcohol Intake Frequency Comment: 12 pack of beer daily along with 1/5 of vodka Hx Substance Use: Yes Last Used Substance: Hours (ago) Last Used Substance Other:: yesterday Preferred Language: Kiswahili Communication Ability: Effective Fitting Room Supervisor Required: No Beliefs That Will Affect Care: None marital status: Single Current Living Situation: Other Current Living Situation Comment: lives with roomate Other Information That Helps Us Care for You: No Feels Safe at Home: Yes Safety Concerns: Feels Safe At This Time Assistive Devices: Cane Review of Systems Review of Systems: All systems reviewed & are unremarkable except as noted in HPI & below Physical Exam Physical Exam: General: no distress, WDWN Head: normocephalic, atraumatic Eyes: PERRL, EOM's intact, conjunctiva non-injected, anicteric ENT: normal inspection external ears, nose, mucous membranes moist Neck: supple, trachea midline Lungs: clear, no respiratory distress, no wheezing/rhonchi/rales CV: tachycardia rate 104, regular rhythm, no pretibial edema Abd: normal BS, soft, non-tender to palpation at this time Ext: no cyanosis, no erythema, no calf tenderness; right BKA Neuro: sleepy, awakens to voice. Pt slow to answer questions. oriented to person, place, month and year, sporadic jerking/fidgeting type movement of arms and legs, +tremor hands bilaterally, no asterixis, no other focal deficits noted Skin: warm, dry Results & Data Results & Data ([facility]) Vital Signs (Past 12 Hours) Vital Signs Temp Pulse Resp BP Pulse Ox 11/26/20 16:20 109 H 24 11/26/20 16:10 118 H 21 11/26/20 16:05 102 H 28 H 97 11/26/20 15:54 105 H 19 159/97 H 97 11/26/20 14:08 36.5 C 110 H 22 179/101 H 87 L Laboratory Results Short CBC 11/26/20 Range/Units 15:36 WBC 4.70 L (4.8-10.8) K/uL Hgb 13.4 L (14.0-18.0) g/dL Hct 36.6 L (42-52) % Plt Count 166 (130-400) K/uL BMP 11/26/20 15:36 Sodium 115 L* Potassium 3.0 L Chloride 72 L Carbon Dioxide 25 BUN 17 Creatinine 1.64 H Glucose 108 H Calcium 9.7 Cardiac Enzymes 11/26/20 Range/Units 15:36 Troponin I < 0.015 (0-0.045) ng/ml Liver Function 11/26/20 Range/Units 15:36 Total Bilirubin 2.1 H (0.2-1) mg/dl AST 36 (15-37) U/L ALT 43 (12-78) U/L Alkaline Phosphatase 163 H (45-117) U/L Albumin 4.4 (3.4-5.0) gm/dl Diagnostic Findings Chest X-Ray 11/26/20 15:20 XR chest 1V portable HISTORY: 60 years-old Male weakness acute weakness COMPARISON: Chest radiograph 12/16/2019 TECHNIQUE: Portable AP view of the chest FINDINGS: Cardiomediastinal and hilar silhouettes are within normal limits. No pneumothorax, pleural effusion, airspace consolidation or overt pulmonary edema. Mild chronic interstitial coarsening of the lateral right midlung. Ill-defined opacity projects over the anterior right fifth rib is favored to be summation density. Degenerative changes of the shoulders and spine. IMPRESSION: No acute process. ACT 112: Negative or not required by law. The above report was generated using voice recognition software. It may contain grammatical, syntax or spelling errors. Electronically signed by: Bj Karimi M.D. 11/26/2020 5:08 PM Supervising Physician Co-Signing Physician Notes Attending addendum: The patient was seen and examined in the emergency room He has been complaining of shaking episodes for the last few days Condition is worse as of this morning and was brought into the emergency room He feels a little bit better while in the emergency room and denies any significant pain during my examination On examination Still has shaking episodes and jerking movement involving the extremities Alert and awake pleasantly confused Hemodynamically stable with blood pressure on the upper side at 140/98 Chestclear to auscultation bilaterally HeartS1-S2, regular no murmur Abdomenbenign, bowel sounds normal Extremitiestrace edema bilaterally CNSalert and awake. Pleasantly confused. Occasional jerking involving the extremities. Moving all the limbs equally Admission labs, EKG and imaging studies reviewed Has significant hyponatremia likely secondary to use of excessive alcohol Complicated by possible withdrawal symptoms Nephrology consulted Reviewed assessment and plan as outlined above by WALE Hilario Dr (1) HTN (hypertension) Hypertension type: unspecified Qualified Code(s): I10 - Essential (primary) hypertension
--- NOTE | 2020-11-26 18:13 | CT Scan Report ---
CT head/brain wo con CLINICAL HISTORY: 60 years-old Male with AMS. Acutely altered mental status TECHNIQUE: Multiple axial CT images of the head were obtained without contrast. A dose lowering tech nique was utilized adhering to the principles of ALARA. CT DOSE: 1228.53 mGy.cm COMPARISON: Head CT 11/13/2018. FINDINGS: Age-related involutional changes. White matter hypodensities suggestive of chronic microvascular isch emic disease have progressively worsened from comparison. Motion degraded exam. The study was then re peated. Chronic appearing lacunar infarcts of the bilateral lentiform nuclei are new from comparison. No acute intracranial hemorrhage, midline shift, intracranial mass, hydrocephalus, territorial ische rae or abnormal extra-axial collection. The calvarium is intact. The paranasal sinuses, mastoid air cells, and middle ear cavities are clear . IMPRESSION: 1. No acute intracranial hemorrhage, midline shift or acute territorial infarct. 2. Age-related involutional changes with patchy white matter hypodensities suggestive of chronic micr ovascular ischemic disease, progressed from comparison. Small embolic infarcts could appear similarly . 3. Remote appearing lacunar infarcts of the lentiform nuclei, new from 11/13/2018. ACT 112: Negative or not required by law. The above report was generated using voice recognition software. It may contain grammatical, syntax o r spelling errors. Electronically signed by: Bj Karimi M.D. 11/26/2020 6:12 PM
[2020-11-26 18:20] LABS: Appearance Urine Turbid (Clear); Bacteria Urine Automated Negative (Negative); Bilirubin Urine Negative (Negative); Blood Urine Negative (Negative); Color Urine Orange; Glucose Urine UA Negative (Negative); Ketones Urine 1+ (Negative); Leukocyte Esterase Urine Trace (Negative); Nitrite Urine Negative (Negative); Protein Urine Trace (Negative); RBC Urine Automated 0-4 /hpf (0-4); Urobilinogen Urine Negative (Negative)
[2020-11-26 19:04] LABS: Amphetamines+Metham, Urine Neg (Neg); Barbiturates, Urine Neg (Neg); Benzodiazepine, Urine Neg (Neg); Cocaine, Urine Neg (Neg); MDMA (Ecstacy), Urine Neg (Neg); Methadone, Urine Neg (Neg); Opiate, Urine Neg (Neg); Phencyclidine, Urine Neg (Neg)
[2020-11-26 19:19] LABS: Lipase 90 U/L (73-393)
[2020-11-26 19:25] LABS: BUN Creatinine Ratio 12.1 (10-20); Calcium 8.8 mg/dl (8.5-10.1); Creatinine Clr Calc Pharmacy 59.9 ml/min; Est GFR (African American) 63.7 ml/min
[2020-11-26] MEDS ORDERED: GABAPENTIN 600 MG TAB PO ONE (20:19)
[2020-11-26] MEDS ORDERED: POTASSIUM CHLORIDE CRTAB 20 MEQ TABCR PO ONE (20:19)
[2020-11-26] MEDS ORDERED: SODIUM CHLORIDE 0.9% 500 ML IV SCH (20:19)
[2020-11-26] MEDS ORDERED: ACETAMINOPHEN 325 MG TAB PO PRN (20:19)
[2020-11-26] MEDS ORDERED: LORazepam 1 MG/2 ML VIAL IV PRN (20:19)
[2020-11-26] MEDS ORDERED: GABAPENTIN 1200MG ALCOHOL WITHDRAWAL LOAD PO STA (20:19)
[2020-11-26 21:27] LABS: BUN Creatinine Ratio 12.3 (10-20); Calcium 9.2 mg/dl (8.5-10.1); Creatinine Clr Calc Pharmacy 49.9 ml/min; Est GFR (African American) 58.2 ml/min; Est GFR (Non-African American) 50.2 ml/min; Potassium 3.2 mmol/L (3.5-5.1)
[2020-11-26] MEDS: FOLIC ACID 1 MG TAB PO SCH (22:24)
[2020-11-26] MEDS: THIAMINE HCL 100 MG TAB PO SCH (22:26)
[2020-11-27] MEDS: GABAPENTIN 600 MG TAB PO SCH ×3 (05:19→20:41)
[2020-11-27 07:35] LABS: Hematocrit (blood only) 35.4 % (42-52); Hemoglobin 12.4 g/dL (14.0-18.0); Mean Corpuscular Hemoglobin 30.2 pg (25-34); Mean Corpuscular Volume 86.3 fL (80-100); Mean Platelet Volume 9.8 fL (7.4-10.4); Platelet Count 163 K/uL (130-400); RDW Coefficient of Variation 12.1 % (11.5-14.5); RDW Standard Deviation 38.8 fL (36.4-46.3); White Blood Count 4.13 K/uL (4.8-10.8)
[2020-11-27 07:52] LABS: BUN Creatinine Ratio 12.1 (10-20); Calcium 9.1 mg/dl (8.5-10.1); Creatinine Clr Calc Pharmacy 54.7 ml/min; Est GFR (African American) 58.6 ml/min; Est GFR (Non-African American) 50.6 ml/min; Magnesium 2.4 mg/dl (1.8-2.4); Potassium 3.2 mmol/L (3.5-5.1)
[2020-11-27 07:53] LABS: Phosphorus 4.2 mg/dl (2.5-4.9)
[2020-11-27] MEDS ORDERED: POTASSIUM CHLORIDE CRTAB 20 MEQ TABCR PO STA (08:04)
[2020-11-27] MEDS: MULTIVITAMIN TAB PO SCH (08:41)
[2020-11-27] MEDS: FOLIC ACID 1 MG TAB PO SCH (08:41)
[2020-11-27] MEDS: THIAMINE HCL 100 MG TAB PO SCH (08:41)
--- NOTE | 2020-11-27 12:41 | Consultation Report ---
DATE OF CONSULTATION: 11/27/2020 NEPHROLOGY CONSULTATION NOTE REASON FOR CONSULT: Critical hyponatremia. HISTORY OF PRESENT ILLNESS: The patient is a 60-year-old black male who has a history of alcohol abuse as well as a prior history of hyponatremia, who presented to the hospital yesterday because of complaints of arms and legs shaking for almost a week. He was brought to the Emergency Department by his brother. The patient does drink a lot of alcohol, mainly emily, but also drinks beer. He was not really forthcoming as to how much liquid or alcohol he was drinking for the last few days. He does have a history of recurrent pancreatitis as well as depression and history of noncompliance. It appears he has not had his prescription filled since 2019. History was mainly constructed from the chart. In the Emergency Department, his serum sodium was 115; in the last blood work from a year ago was 132. Since admission, he has received some IV fluid normal saline as well as free fluid restriction, and with that, his serum sodium this morning was 122. The shaking of the arms and legs has stopped. It is very hard to get any history from the patient. Urine osmolality was 205 and urine sodium was 15. PAST MEDICAL AND SURGICAL HISTORY: 1. Severe noncompliance and has not filled any prescriptions since 2019. 2. Alcohol abuse. 3. Hypertension. 4. Hyperlipidemia. 5. Tobacco abuse. 6. History of recurrent pancreatitis. 7. Depression. 8. GERD. 9. Phantom pain after amputation of the right lower extremity, complete below-knee amputation of right leg. 10. History of mandibular surgery. 11. History of tooth extraction. FAMILY HISTORY: I could not obtain. As per the record, no renal disease or dialysis. SOCIAL HISTORY: Current every day smoker. Current heavy alcohol use, both beer as well as hard liquor. History of substance abuse in the past. REVIEW OF SYSTEMS: Unable to obtain as patient could barely answer a simple question. ALLERGIES: None. HOME MEDICATIONS: He has prescription, but has not filled any prescriptions since 2019, so he was not taking any medication. PHYSICAL EXAMINATION: GENERAL: Elderly black male who appears older and chronically ill than his age. He is not in any overt respiratory distress, very slow speech and very hard to obtain accurate history from the patient. VITAL SIGNS: Show blood pressure 136/93, pulse 81, temperature 36.8, 98% on room air. HEENT: Mucous membrane is moist. NECK: Supple. No jugular venous distention. CHEST: Bilaterally decreased breath sounds, poor inspiratory effort, limited quality exam. CARDIOVASCULAR: Slightly tachycardic. No systolic murmur heard. ABDOMEN: Soft, nontender. 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 NEUROLOGIC: Slow speech and seems lethargic. LABORATORY TESTS: Reviewed in detail. Sodium was 115 on admission yesterday, this morning is 122. No recent outpatient labs. Sodium 1 year ago was 132. Urine osmolality 205, urine sodium 15. BUN 18, creatinine 1.5. Sodium 122, potassium 3.2, magnesium 2.4. ASSESSMENT AND PLAN: A 60-year-old male with heavy ongoing alcohol use, admitted with critical hyponatremia with possible symptoms. I have been consulted for hyponatremia. Hyponatremia: It appears the etiology was excessive fluid/alcohol intake. He does have some underlying component of syndrome of inappropriate antidiuretic hormone, but this is predominantly very excessive fluid intake and most likely without appropriate solid food intake. Given the severe imbalance, he went into critical hyponatremia. No further workup needed. RECOMMENDATIONS: 1. Free fluid restriction to 1500 mL per day. 2. No need of IV fluid at this time. 3. BMP every 8 hours. 4. Increase food intake, especially food with protein. However, this might be difficult as it does not appear he is motivated to get better at this point. He still has very heavy alcohol use. 5. As long as his beer and alcohol and fluid intake persist, there is no way to get these things better long-term. 6. Hypokalemia. We will correct with oral potassium. Thank you very much for the consult.
[2020-11-27 13:50] LABS: BUN Creatinine Ratio 10.9 (10-20); Calcium 8.6 mg/dl (8.5-10.1); Creatinine Clr Calc Pharmacy 47.7 ml/min; Est GFR (African American) 49.7 ml/min; Est GFR (Non-African American) 42.9 ml/min; Potassium 3.4 mmol/L (3.5-5.1)
--- NOTE | 2020-11-27 15:24 | Hospitalist Progress Note ---
Date of Service November 27, 2020 Assessment & Plan (1) Hyponatremia: Pt is 60 y/o M with PMH HTN, HLD, alcohol abuse, tobacco abuse, h/o recurrent pancreatitis, depression, h/o noncompliance presented to ER with complaint of arms and legs shaking for a couple of weeks. Pt awakens to voice and slow to answer questions. Pt had 3mg ativan in ER and ER physician reports pt was awake, oriented with normal speech prior to Ativan administration. Hyponatremia secondary to too much use of alcohol and beer Na: 115, serum osmolality: 258, Urine osmolality: 205, urine random sodium: 15, TSH: 1.2 Received 1 L of normal saline in the emergency room and the repeat sodium was 118 Appreciate nephrology input and recommendation Has been getting normal saline with potassium at a rate of 80 mL an hour We will monitor PRP (2) ETOH abuse: Reports drinks half pint emily a day. Last drink this morning. ETOH level: 21 In ER given ativan 3mg IV total, thiamine IV Alcohol withdrawal protocol, monitor for withdrawal Folic acid, thiamine, multivitamin Withdrawal symptoms are improving Does not have any more tremors of the outstretched hands Continue with gabapentin protocol (3) Hypokalemia: K: 3.0, magnesium: 2.1 In ER was given 1K rider, 20 mEq potassium p.o. Replace and monitor-potassium remains low at 3.2 today We will supplement and monitor (4) IDALIA (acute kidney injury): BUN: 17, Cr: 1.6 (Cr 0.7 in 2019) Repeat Cr at 1.4 after 1L NSS in ER Monitor renal functions, avoid nephrotoxic agents when possible Creatinine has been increasing-we will monitor (5) HTN (hypertension): In ER BP 179/101, 143/98 Previously was on carvedilol 3.125 daily and lisinopril 20 mg daily. Patient has not taken these medications for unknown amount of time Monitor BP, may need to restart BP meds DVT Prophylaxis -SCDs Full Code as per discussion with pt Follows with Dr Oseguera for routine care, however has not been seen for years Admission and Anticipated Discharge Date Admission Date: November 26, 2020 Subjective 11/27/2020 The patient was seen and examined in telemetry unit He has been much better this morning and the without any confusion He does not have significant withdrawal symptoms Denies any fever and/or chills, any nausea and or vomiting and no pain Review of Systems Review of Systems: All systems reviewed and are unremarkable except as noted below Physical Exam Physical Exam: Lying in bed with minimal discomfort Constitutional: well developed, well nourished and + ill appearing Eyes: PERRL, conjunctivae normal, anicteric sclerae ENMT: external ear and nose normal, oropharynx normal Neck: trachea midline, no thyromegaly Respiratory: no respiratory distress Auscultation: lungs clear to auscultation bilaterally Cardiovascular: Rate/Rhythm: regular rate and regular rhythm Heart Sounds: no murmur Extremities: no edema (Has right leg prosthesis) Gastrointestinal (Abdomen): Inspection/Auscultation: abdomen not distended Percussion/Palpation: abdomen soft; abdomen nontender Musculoskeletal: No acute arthritis in any joint Neurologic: Alert and awake. Seems pleasantly confused. Moving all limbs equally. No tremors of the outstretched hands Lymphatic: no cervical or axillary lymphadenopathy Results & Data Results & Data ([facility]) Vital Signs (Past 12 Hours) Vital Signs Temp Pulse Pulse Resp BP Pulse Ox 11/27/20 15:18 112 H 11/27/20 12:06 36.5 C 83 19 142/90 H 94 11/27/20 08:05 36.8 C 81 20 136/93 98 11/27/20 08:00 83 11/27/20 03:33 36.8 C 81 20 127/82 97 Laboratory Results Short CBC 11/26/20 11/27/20 Range/Units 15:36 07:22 WBC 4.70 L 4.13 L (4.8-10.8) K/uL Hgb 13.4 L 12.4 L (14.0-18.0) g/dL Hct 36.6 L 35.4 L (42-52) % Plt Count 166 163 (130-400) K/uL BMP 11/26/20 11/26/20 11/26/20 15:36 18:52 20:43 Sodium 115 L* 118 L* 118 L* Potassium 3.0 L 3.0 L 3.2 L Chloride 72 L 77 L 77 L Carbon Dioxide 25 28 27 BUN 17 17 19 H Creatinine 1.64 H 1.40 1.51 H Glucose 108 H 104 H 104 H Calcium 9.7 8.8 9.2 11/27/20 11/27/20 07:22 13:01 Sodium 122 L 122 L Potassium 3.2 L 3.4 L Chloride 82 L 84 L Carbon Dioxide 30 29 BUN 18 19 H Creatinine 1.50 H 1.72 H Glucose 135 H 198 H Calcium 9.1 8.6 Cardiac Enzymes 11/26/20 Range/Units 15:36 Troponin I < 0.015 (0-0.045) ng/ml Liver Function 11/26/20 Range/Units 15:36 Total Bilirubin 2.1 H (0.2-1) mg/dl AST 36 (15-37) U/L ALT 43 (12-78) U/L Alkaline Phosphatase 163 H (45-117) U/L Albumin 4.4 (3.4-5.0) gm/dl Urine 11/26/20 Range/Units 15:05 Urine Color [place] Urine Appearance Turbid A (Clear) Urine pH 6.0 (4.5-7.5) Ur Specific [place] 1.010 (1.000-1.030) Urine Protein Trace H (Negative) Urine Glucose (UA) Negative (Negative) Medications Administered Current Inpatient Medications Acetaminophen (Acetaminophen 325 Mg Tab) 650 mg PO Q4H PRN PRN Reason: Pain or Fever Stop: 12/26/20 20:18 Folic Acid (Folic Acid 1 Mg Tab) [facility] Stop: 12/26/20 20:18 Last Admin: 11/27/20 08:41 Dose: 1 mg Documented by: Gabapentin (Gabapentin 600 Mg Tab) 600 mg PO Q8H [facility] Stop: 11/28/20 14:01 Gabapentin (Gabapentin 600 Mg Tab) 600 mg PO Q12H [facility] Stop: 11/29/20 12:01 Gabapentin (Gabapentin 600 Mg Tab) 600 mg PO Q24H [facility] Stop: 11/30/20 12:01 Lorazepam (Ativan) 1 mg in 2 mls @ 2 mls/min IV ONE PRN; Protocol PRN Reason: EtoH Withdrawal AWSS 6-10 Stop: 12/26/20 20:18 Sodium Chloride (Nss) 500 mls @ 80 mls/hr IV .Q6H15M [facility] Stop: 12/27/20 14:44 Multivitamins (Multivitamin Tab) 1 [facility] Stop: 12/27/20 08:59 Last Admin: 11/27/20 08:41 Dose: 1 tab Documented by: Potassium Chloride (Potassium Chloride Crtab 20 Meq Tabcr) 20 meq PO BID [facility] Stop: 12/27/20 20:59 Thiamine HCl (Thiamine Hcl 100 Mg Tab) 100 mg PO QAM [facility] Stop: 12/26/20 20:18 Last Admin: 11/27/20 08:41 Dose: 100 mg Documented by: (1) HTN (hypertension) Hypertension type: unspecified Qualified Code(s): I10 - Essential (primary) hypertension
[2020-11-27] MEDS: SODIUM CHLORIDE 0.9% 500 ML IV SCH ×3 (15:49→23:40)
[2020-11-27 20:25] LABS: BUN Creatinine Ratio 14.5 (10-20); Calcium 8.8 mg/dl (8.5-10.1); Creatinine Clr Calc Pharmacy 43.9 ml/min; Est GFR (African American) 44.9 ml/min; Est GFR (Non-African American) 38.8 ml/min; Potassium 3.6 mmol/L (3.5-5.1)
[2020-11-27] MEDS: POTASSIUM CHLORIDE CRTAB 20 MEQ TABCR PO SCH (20:41)
[2020-11-28] MEDS: GABAPENTIN 600 MG TAB PO SCH ×2 (05:55→15:00)
--- NOTE | 2020-11-28 06:15 | Electrocardiogram Report ---
Test Reason : Blood Pressure : / mmHG Vent. Rate : 095 BPM Atrial Rate : 095 BPM P-R Int : 160 ms QRS Dur : 100 ms QT Int : 404 ms P-R-T Axes : 078 089 071 degrees QTc Int : 508 ms Poor data quality, interpretation may be adversely affected Normal sinus rhythm Prolonged QT When compared with ECG of 16-DEC-2019 12:14, QT has lengthened Reconfirmed by Benedicto Garnett ([id number]) on 11/28/2020 6:15:37 AM Referred By: Confirmed By:Benedicto Garnett
[2020-11-28 06:16] LABS: Basophils # (auto) 0.01 K/uL (0-0.2); Basophils % (auto) 0.2 %; Eosinophils # (auto) 0.08 K/uL (0-0.5); Eosinophils % (auto) 1.7 %; Hematocrit (blood only) 31.8 % (42-52); Immature Granulocytes # (auto) 0.01 K/uL (0.00-0.02); Immature Granulocytes % (auto) 0.2 %; Lymphocytes # (auto) 1.12 K/uL (1.2-3.4); Lymphocytes % (auto) 23.2 %; Mean Corpuscular Hemoglobin 30.3 pg (25-34); Mean Corpuscular Hgb Conc 34.6 g/dL (32-36); Mean Corpuscular Volume 87.6 fL (80-100); Mean Platelet Volume 9.9 fL (7.4-10.4); Monocytes # (auto) 1.21 K/uL (0.11-0.59); Monocytes % (auto) 25.1 %; Neutrophils # (auto) 2.39 K/uL (1.4-6.5); Neutrophils % (auto) 49.6 %; Platelet Count 155 K/uL (130-400); RDW Coefficient of Variation 12.1 % (11.5-14.5); RDW Standard Deviation 39.1 fL (36.4-46.3); Red Blood Count 3.63 M/uL (4.7-6.1); White Blood Count 4.82 K/uL (4.8-10.8)
[2020-11-28] MEDS: MULTIVITAMIN TAB PO SCH (08:54)
[2020-11-28] MEDS: FOLIC ACID 1 MG TAB PO SCH (08:54)
[2020-11-28] MEDS: THIAMINE HCL 100 MG TAB PO SCH (08:54)
[2020-11-28] MEDS: POTASSIUM CHLORIDE CRTAB 20 MEQ TABCR PO SCH ×2 (08:54→21:31)
[2020-11-28] MEDS: SODIUM CHLORIDE 0.9% 500 ML IV SCH ×3 (10:15→21:31)
--- NOTE | 2020-11-28 13:08 | Nephrology Progress Note ---
Date of Service November 28, 2020 Assessment & Plan Admission and Anticipated Discharge Date Admission Date: November 26, 2020 Subjective No new issues. No labs today. GENERAL: Elderly black male who appears older and chronically ill than his age. He is not in any overt respiratory distress, very slow speech and very hard to obtain accurate history from the patient. VITAL SIGNS: Show blood pressure 136/93, pulse 81, temperature 36.8, 98% on room air. HEENT: Mucous membrane is moist. NECK: Supple. No jugular venous distention. CHEST: Bilaterally decreased breath sounds, poor inspiratory effort, limited quality exam. CARDIOVASCULAR: Slightly tachycardic. No systolic murmur heard. ABDOMEN: Soft, nontender. 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 NEUROLOGIC: Slow speech and seems lethargic. LABORATORY TESTS: no new labs today. ASSESSMENT AND PLAN: A 60-year-old male with heavy ongoing alcohol use, admitted with critical hyponatremia with possible symptoms. I have been consulted for hyponatremia. Hyponatremia: It appears the etiology was excessive fluid/alcohol intake. He does have some underlying component of syndrome of inappropriate antidiuretic hormone, but this is predominantly very excessive fluid intake and most likely without appropriate solid food intake. Given the severe imbalance, he went into critical hyponatremia. No further workup needed. RECOMMENDATIONS: 1. Continue Free fluid restriction to 1500 mL per day. 2. BMP daily at this time--ordered for today 3 NS another 500 ml today 4. Increase food intake, especially food with protein. However, this might be difficult as it does not appear he is motivated to get better at this point. He still has very heavy alcohol use. 5. As long as his beer and alcohol and fluid intake persist, there is no way to get these things better long-term. 6. Hypokalemia. We will correct with oral potassium. Results & Data ([facility]) Vital Signs (Past 12 Hours) Vital Signs Temp Pulse Pulse Resp BP BP Pulse Ox 11/28/20 11:35 36.8 C 100 H 18 131/86 100 11/28/20 08:20 36.4 C L 91 H 20 115/80 97 11/28/20 08:00 11/28/20 07:00 95 H 11/28/20 04:45 37.0 C 90 18 132/91 97 11/28/20 03:33 96 H Pulse Ox 11/28/20 11:35 11/28/20 08:20 11/28/20 08:00 96 11/28/20 07:00 11/28/20 04:45 11/28/20 03:33
[2020-11-28 13:31] LABS: BUN Creatinine Ratio 19.4 (10-20); Calcium 8.6 mg/dl (8.5-10.1); Creatinine Clr Calc Pharmacy 57.3 ml/min; Est GFR (African American) 61.1 ml/min; Est GFR (Non-African American) 52.7 ml/min; Potassium 3.4 mmol/L (3.5-5.1)
--- NOTE | 2020-11-28 15:08 | Hospitalist Progress Note ---
Date of Service November 28, 2020 Assessment & Plan (1) Hyponatremia: Pt is 60 y/o M with PMH HTN, HLD, alcohol abuse, tobacco abuse, h/o recurrent pancreatitis, depression, h/o noncompliance presented to ER with complaint of arms and legs shaking for a couple of weeks. Pt awakens to voice and slow to answer questions. Pt had 3mg ativan in ER and ER physician reports pt was awake, oriented with normal speech prior to Ativan administration. Hyponatremia secondary to too much use of alcohol and beer Na: 115, serum osmolality: 258, Urine osmolality: 205, urine random sodium: 15, TSH: 1.2 Received 1 L of normal saline in the emergency room and the repeat sodium was 118 Appreciate nephrology input and recommendation Has been getting normal saline with potassium at a rate of 80 mL an hour Sodium level is minimally improved at 127 Will not have much improvement as long as he continues to drink the way he has been doing We will continue current management (2) ETOH abuse: Reports drinks half pint emily a day. Last drink this morning. ETOH level: 21 In ER given ativan 3mg IV total, thiamine IV Alcohol withdrawal protocol, monitor for withdrawal Folic acid, thiamine, multivitamin Withdrawal symptoms are improving Does not have any more tremors of the outstretched hands Continue with gabapentin protocol Has not been having any significant withdrawal symptoms (3) Hypokalemia: K: 3.0, magnesium: 2.1 In ER was given 1K rider, 20 mEq potassium p.o. Replace and monitor-potassium remains low at 3.2 today We will supplement and monitor (4) IDALIA (acute kidney injury): BUN: 17, Cr: 1.6 (Cr 0.7 in 2019) Repeat Cr at 1.4 after 1L NSS in ER Monitor renal functions, avoid nephrotoxic agents when possible Creatinine has been increasing-we will monitor Creatinine seems to be worsening-continue with intravenous fluid (5) HTN (hypertension): In ER BP 179/101, 143/98 Previously was on carvedilol 3.125 daily and lisinopril 20 mg daily. Patient has not taken these medications for unknown amount of time Monitor BP, may need to restart BP meds DVT Prophylaxis -SCDs Full Code as per discussion with pt Follows with Dr Oseguera for routine care, however has not been seen for years Admission and Anticipated Discharge Date Admission Date: November 26, 2020 Subjective 11/27/2020 The patient was seen and examined in telemetry unit He has been much better this morning and the without any confusion He does not have significant withdrawal symptoms Denies any fever and/or chills, any nausea and or vomiting and no pain 11/28/2020 The patient was seen and examined in telemetry unit He has been feeling much better and does not have any significant confusion Does not have any tremors with outstretched hands Remains minimally tachycardic at 100/min Review of Systems Review of Systems: All systems reviewed and are unremarkable except as noted below Neurologic: + generalized weakness Physical Exam Physical Exam: Lying in bed without any acute distress but remains generally weak and lethargic Constitutional: well developed, well nourished and + ill appearing Eyes: PERRL, conjunctivae normal, anicteric sclerae ENMT: external ear and nose normal, oropharynx normal Neck: trachea midline, no thyromegaly Respiratory: no respiratory distress Auscultation: lungs clear to auscultation bilaterally Cardiovascular: Rate/Rhythm: regular rate and regular rhythm Heart Sounds: no murmur Extremities: no edema (Has right leg prosthesis) Gastrointestinal (Abdomen): Inspection/Auscultation: abdomen not distended Percussion/Palpation: abdomen soft; abdomen nontender Musculoskeletal: No acute arthritis in any joint Neurologic: Alert and awake. Pleasantly confused. Generally weak and lethargy. No tremors on outstretched hands Lymphatic: no cervical or axillary lymphadenopathy Results & Data Results & Data ([facility]) Vital Signs (Past 12 Hours) Vital Signs Temp Pulse Pulse Resp BP BP Pulse Ox 11/28/20 11:35 36.8 C 100 H 18 131/86 100 11/28/20 08:20 36.4 C L 91 H 20 115/80 97 11/28/20 08:00 11/28/20 07:00 95 H 11/28/20 04:45 37.0 C 90 18 132/91 97 11/28/20 03:33 96 H Pulse Ox 11/28/20 11:35 11/28/20 08:20 11/28/20 08:00 96 11/28/20 07:00 11/28/20 04:45 11/28/20 03:33 Laboratory Results Short CBC 11/28/20 Range/Units 05:44 WBC 4.82 (4.8-10.8) K/uL Hgb 11.0 L (14.0-18.0) g/dL Hct 31.8 L (42-52) % Plt Count 155 (130-400) K/uL [facility] 11/27/20 11/28/20 19:49 05:47 Sodium 125 L 127 L Potassium 3.6 3.4 L Chloride 88 L 94 L Carbon Dioxide 27 24 BUN 27 H 28 H Creatinine 1.87 H 1.45 H D Glucose 149 H 209 H Calcium 8.8 8.6 Medications Administered Current Inpatient Medications Acetaminophen (Acetaminophen 325 Mg Tab) 650 mg PO Q4H PRN PRN Reason: Pain or Fever Stop: 12/26/20 20:18 Folic Acid (Folic Acid 1 Mg Tab) 1 [facility] [place] Stop: 12/26/20 20:18 Last Admin: 11/28/20 08:54 Dose: 1 mg Documented by: Gabapentin (Gabapentin 600 Mg Tab) 600 mg PO Q12H COUNTS INCLUDE 234 BEDS AT THE [facility] Stop: 11/29/20 12:01 Gabapentin (Gabapentin 600 Mg Tab) 600 mg PO Q24H COUNTS INCLUDE 234 BEDS AT THE [facility] Stop: 11/30/20 12:01 Lorazepam (Ativan) 1 mg in 2 mls @ 2 mls/min IV ONE PRN; Protocol PRN Reason: EtoH Withdrawal AWSS 6-10 Stop: 12/26/20 20:18 Sodium Chloride (Nss) 500 mls @ 80 mls/hr IV .Q6H15M COUNTS INCLUDE 234 BEDS AT THE [facility] Stop: 12/27/20 14:44 Last Admin: 11/28/20 10:15 Dose: 80 mls/hr Documented by: Multivitamins (Multivitamin Tab) 1 tab [facility] [place] Stop: 12/27/20 08:59 Last Admin: 11/28/20 08:54 Dose: 1 tab Documented by: Potassium Chloride (Potassium Chloride Crtab 20 Meq Tabcr) 20 meq PO BID COUNTS INCLUDE 234 BEDS AT THE [facility] Stop: 12/27/20 20:59 Last Admin: 11/28/20 08:54 Dose: 20 meq Documented by: Thiamine HCl (Thiamine Hcl 100 Mg Tab) 100 mg PO QAM COUNTS INCLUDE 234 BEDS AT THE [facility] Stop: 12/26/20 20:18 Last Admin: 11/28/20 08:54 Dose: 100 mg Documented by: (1) HTN (hypertension) Hypertension type: unspecified Qualified Code(s): I10 - Essential (primary) hypertension
[2020-11-29] MEDS: GABAPENTIN 600 MG TAB PO SCH ×2 (00:13→14:03)
[2020-11-29] MEDS: SODIUM CHLORIDE 0.9% 500 ML IV SCH ×2 (04:15→12:08)
[2020-11-29 06:26] LABS: Calcium 8.7 mg/dl (8.5-10.1); Creatinine Clr Calc Pharmacy 78.1 ml/min; Est GFR (African American) 88.2 ml/min; Est GFR (Non-African American) 76.1 ml/min; Potassium 3.9 mmol/L (3.5-5.1)
[2020-11-29] MEDS: FOLIC ACID 1 MG TAB PO SCH (08:52)
[2020-11-29] MEDS: MULTIVITAMIN TAB PO SCH (08:52)
[2020-11-29] MEDS: THIAMINE HCL 100 MG TAB PO SCH (08:52)
[2020-11-29] MEDS: POTASSIUM CHLORIDE CRTAB 20 MEQ TABCR PO SCH (08:54)
[2020-11-29] MEDS ORDERED: Nursing to Pharmacy Communication SCH (12:00)
--- NOTE | 2020-11-29 13:56 | Nephrology Progress Note ---
Date of Service November 29, 2020 Assessment & Plan Admission and Anticipated Discharge Date Admission Date: November 26, 2020 Subjective No new issues. GENERAL: Elderly black male who appears older and chronically ill than his age. He is not in any overt respiratory distress, very slow speech and very hard to obtain accurate history from the patient. HEENT: Mucous membrane is moist. NECK: Supple. No jugular venous distention. CHEST: Bilaterally decreased breath sounds, poor inspiratory effort, limited quality exam. CARDIOVASCULAR: Slightly tachycardic. No systolic murmur heard. ABDOMEN: Soft, nontender. 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 NEUROLOGIC: Slow speech and seems lethargic. LABORATORY TESTS: normal creat and Na 134 ASSESSMENT AND PLAN: A 60-year-old male with heavy ongoing alcohol use, admitted with critical hyponatremia with possible symptoms. I have been consulted for hyponatremia. Hyponatremia: It appears the etiology was excessive fluid/alcohol intake. He does have some underlying component of syndrome of inappropriate antidiuretic hormone, but this is predominantly very excessive fluid intake and most likely without appropriate solid food intake. Given the severe imbalance, he went into critical hyponatremia. No further workup needed. RECOMMENDATIONS: 1. Continue Free fluid restriction to 1500 mL per day. 2. BMP daily 3 Increase food intake, especially food with protein. However, this might be difficult as it does not appear he is motivated to get better at this point. He still has very heavy alcohol use. 5. As long as his high beer and alcohol and fluid intake persist, there is no way to get these things better long-term as outpt 6. Hypokalemia. We will correct with oral potassium. lower to 20 daily Results & Data ([facility]) Vital Signs (Past 12 Hours) Vital Signs Temp Pulse Pulse Resp BP Pulse Ox Pulse Ox 11/29/20 11:26 36.7 C 90 20 129/87 99 11/29/20 08:00 97 11/29/20 07:37 78 11/29/20 07:36 37.0 C 73 18 146/97 H 98 11/29/20 04:09 36.6 C 76 18 156/78 H 100
[2020-11-29 14:22] LABS: Marijuana Quant, GCMS Urine 78 ng/mL (<5)
--- NOTE | 2020-11-29 15:39 | Hospitalist Progress Note ---
Date of Service November 29, 2020 Assessment & Plan (1) Hyponatremia: Pt is 60 y/o M with PMH HTN, HLD, alcohol abuse, tobacco abuse, h/o recurrent pancreatitis, depression, h/o noncompliance presented to ER with complaint of arms and legs shaking for a couple of weeks. Pt awakens to voice and slow to answer questions. Pt had 3mg ativan in ER and ER physician reports pt was awake, oriented with normal speech prior to Ativan administration. Hyponatremia secondary to too much use of alcohol and beer Na: 115, serum osmolality: 258, Urine osmolality: 205, urine random sodium: 15, TSH: 1.2 Received 1 L of normal saline in the emergency room and the repeat sodium was 118 Appreciate nephrology input and recommendation Has been getting normal saline with potassium at a rate of 80 mL an hour Sodium level is minimally improved at 127 Will not have much improvement as long as he continues to drink the way he has been doing His sodium level is normalized and today is 134 We will monitor PRP (2) ETOH abuse: Reports drinks half pint emily a day. Last drink this morning. ETOH level: 21 In ER given ativan 3mg IV total, thiamine IV Alcohol withdrawal protocol, monitor for withdrawal Folic acid, thiamine, multivitamin Withdrawal symptoms are improving Does not have any more tremors of the outstretched hands Continue with gabapentin protocol Has not been having any significant withdrawal symptoms Remains pleasantly confused and generally weak We will get PT and OT evaluation before discharge (3) Hypokalemia: K: 3.0, magnesium: 2.1 In ER was given 1K rider, 20 mEq potassium p.o. Replace and monitor-potassium remains low at 3.2 today We will supplement and monitor Electrolytes remains unremarkable (4) IDALIA (acute kidney injury): BUN: 17, Cr: 1.6 (Cr 0.7 in 2019) Repeat Cr at 1.4 after 1L NSS in ER Monitor renal functions, avoid nephrotoxic agents when possible Creatinine has been increasing-we will monitor Creatinine seems to be worsening-continue with intravenous fluid IDALIA resolved (5) HTN (hypertension): In ER BP 179/101, 143/98 Previously was on carvedilol 3.125 daily and lisinopril 20 mg daily. Patient has not taken these medications for unknown amount of time Monitor BP, may need to restart BP meds DVT Prophylaxis Subcu heparin -SCDs Full Code as per discussion with pt Follows with Dr Oseguera for routine care, however has not been seen for years Admission and Anticipated Discharge Date Admission Date: November 26, 2020 Subjective 11/27/2020 The patient was seen and examined in telemetry unit He has been much better this morning and the without any confusion He does not have significant withdrawal symptoms Denies any fever and/or chills, any nausea and or vomiting and no pain 11/28/2020 The patient was seen and examined in telemetry unit He has been feeling much better and does not have any significant confusion Does not have any tremors with outstretched hands Remains minimally tachycardic at 100/min 11/29/2020 The patient was seen and examined in telemetry unit He has pain in much better without any acute distress but remains pleasantly confused and generally weak Denies any significant symptoms Does not have any symptoms of withdrawal Review of Systems Review of Systems: All systems reviewed and are unremarkable except as noted below Neurologic: + generalized weakness Physical Exam Physical Exam: Lying in bed without any acute distress but remains generally weak and lethargic Constitutional: well developed, well nourished and + ill appearing Eyes: PERRL, conjunctivae normal, anicteric sclerae ENMT: external ear and nose normal, oropharynx normal Neck: trachea midline, no thyromegaly Respiratory: no respiratory distress Auscultation: lungs clear to auscultation bilaterally Cardiovascular: Rate/Rhythm: regular rate and regular rhythm Heart Sounds: no murmur Extremities: no edema (Has right leg prosthesis) Gastrointestinal (Abdomen): Inspection/Auscultation: abdomen not distended Percussion/Palpation: abdomen soft; abdomen nontender Musculoskeletal: No acute arthritis in any joint Neurologic: Alert and awake, pleasantly confused. Moving all limbs equally. Has right leg prosthesis Lymphatic: no cervical or axillary lymphadenopathy Results & Data Results & Data ([facility]) Vital Signs (Past 12 Hours) Vital Signs Temp Pulse Pulse Resp BP Pulse Ox Pulse Ox 11/29/20 15:04 80 11/29/20 11:26 36.7 C 90 20 129/87 99 11/29/20 08:00 97 11/29/20 07:37 78 11/29/20 07:36 37.0 C 73 18 146/97 H 98 11/29/20 04:09 36.6 C 76 18 156/78 H 100 Laboratory Results [facility] 11/29/20 05:55 Sodium 134 L D Potassium 3.9 Chloride 103 Carbon Dioxide 24 BUN 18 Creatinine 1.07 Glucose 154 H Calcium 8.7 Medications Administered Current Inpatient Medications Acetaminophen (Acetaminophen 325 Mg Tab) 650 mg PO Q4H PRN PRN Reason: Pain or Fever Stop: 12/26/20 20:18 Folic Acid (Folic Acid 1 Mg Tab) 1 mg PO QAM [facility] Stop: 12/26/20 20:18 Last Admin: 11/29/20 08:52 Dose: 1 mg Documented by: Gabapentin (Gabapentin 600 Mg Tab) 600 mg PO Q24H [facility] Stop: 11/30/20 12:01 Lorazepam (Ativan) 1 mg in 2 mls @ 2 mls/min IV ONE PRN; Protocol PRN Reason: EtoH Withdrawal AWSS 6-10 Stop: 12/26/20 20:18 Multivitamins (Multivitamin Tab) [facility] Stop: 12/27/20 08:59 Last Admin: 11/29/20 08:52 Dose: 1 tab Documented by: Potassium Chloride (Potassium Chloride Crtab 20 Meq Tabcr) 20 meq PO DAILY [facility] Stop: 12/30/20 08:59 Thiamine HCl (Thiamine Hcl 100 Mg Tab) 100 mg PO QAM [facility] Stop: 12/26/20 20:18 Last Admin: 11/29/20 08:52 Dose: 100 mg Documented by: (1) HTN (hypertension) Hypertension type: unspecified Qualified Code(s): I10 - Essential (primary) hypertension
[2020-11-29] MEDS: HEPARIN SOD 5,000 UNIT/0.5 ML VIAL SQ SCH (21:28)
[2020-11-30 06:19] LABS: Calcium 9.1 mg/dl (8.5-10.1); Creatinine Clr Calc Pharmacy 78.3 ml/min; Est GFR (African American) 90.3 ml/min; Est GFR (Non-African American) 77.9 ml/min; Magnesium 1.7 mg/dl (1.8-2.4); Potassium 3.9 mmol/L (3.5-5.1)
[2020-11-30] MEDS: MULTIVITAMIN TAB PO SCH (08:51)
[2020-11-30] MEDS: POTASSIUM CHLORIDE CRTAB 20 MEQ TABCR PO SCH (08:51)
[2020-11-30] MEDS: THIAMINE HCL 100 MG TAB PO SCH (08:51)
[2020-11-30] MEDS: FOLIC ACID 1 MG TAB PO SCH (08:51)
[2020-11-30] MEDS: HEPARIN SOD 5,000 UNIT/0.5 ML VIAL SQ SCH ×2 (08:52→19:56)
[2020-11-30] MEDS ORDERED: GABAPENTIN 600 MG TAB PO SCH (12:00)
--- NOTE | 2020-11-30 12:58 | Hospitalist Progress Note ---
Date of Service November 30, 2020 Assessment & Plan (1) Hyponatremia: Pt is 60 y/o M with PMH HTN, HLD, alcohol abuse, tobacco abuse, h/o recurrent pancreatitis, depression, h/o noncompliance presented to ER with complaint of arms and legs shaking for a couple of weeks. Pt awakens to voice and slow to answer questions. Pt had 3mg ativan in ER and ER physician reports pt was awake, oriented with normal speech prior to Ativan administration. Hyponatremia secondary to too much use of alcohol and beer Na: 115, serum osmolality: 258, Urine osmolality: 205, urine random sodium: 15, TSH: 1.2 Received 1 L of normal saline in the emergency room and the repeat sodium was 118 Appreciate nephrology input and recommendation Has been getting normal saline with potassium at a rate of 80 mL an hour Sodium level is minimally improved at 127 Will not have much improvement as long as he continues to drink the way he has been doing His sodium level is normalized and today is 134 Sodium level has been normalized hand the patient is eating and drinking normally We will get PT and OT evaluation before discharging (2) ETOH abuse: Reports drinks half pint emily a day. Last drink this morning. ETOH level: 21 In ER given ativan 3mg IV total, thiamine IV Alcohol withdrawal protocol, monitor for withdrawal Folic acid, thiamine, multivitamin Withdrawal symptoms are improving Does not have any more tremors of the outstretched hands Continue with gabapentin protocol Has not been having any significant withdrawal symptoms Remains pleasantly confused and generally weak Social service discharge planning (3) Hypokalemia: K: 3.0, magnesium: 2.1 In ER was given 1K rider, 20 mEq potassium p.o. Replace and monitor-potassium remains low at 3.2 today We will supplement and monitor Electrolytes remains unremarkable (4) IDALIA (acute kidney injury): BUN: 17, Cr: 1.6 (Cr 0.7 in 2020) Repeat Cr at 1.4 after 1L NSS in ER Monitor renal functions, avoid nephrotoxic agents when possible Creatinine has been increasing-we will monitor Creatinine seems to be worsening-continue with intravenous fluid IDALIA resolved (5) HTN (hypertension): In ER BP 179/101, 143/98 Previously was on carvedilol 3.125 daily and lisinopril 20 mg daily. Patient has not taken these medications for unknown amount of time Monitor BP, may need to restart BP meds DVT Prophylaxis Subcu heparin -SCDs Full Code as per discussion with pt Follows with Dr Oseguera for routine care, however has not been seen for years Likely discharge in a day or two Admission and Anticipated Discharge Date Admission Date: November 26, 2020 Subjective 11/27/2020 The patient was seen and examined in telemetry unit He has been much better this morning and the without any confusion He does not have significant withdrawal symptoms Denies any fever and/or chills, any nausea and or vomiting and no pain 11/28/2020 The patient was seen and examined in telemetry unit He has been feeling much better and does not have any significant confusion Does not have any tremors with outstretched hands Remains minimally tachycardic at 100/min 11/29/2020 The patient was seen and examined in telemetry unit He has been much better without any acute distress but remains pleasantly confused and generally weak Denies any significant symptoms Does not have any symptoms of withdrawal 11/30/2020 The patient was seen and examined in telemetry unit He remains drowsy and generally weak but denies any other significant symptoms No tremors in outstretched hands No nausea and or vomiting, no fever and/or chills Review of Systems Review of Systems: All systems reviewed and are unremarkable except as noted below Neurologic: + generalized weakness Physical Exam Physical Exam: Lying in bed without any acute distress but remains generally weak and lethargic Constitutional: well developed, well nourished and + ill appearing Eyes: PERRL, conjunctivae normal, anicteric sclerae ENMT: external ear and nose normal, oropharynx normal Neck: trachea midline, no thyromegaly Respiratory: no respiratory distress Auscultation: lungs clear to auscultation bilaterally Cardiovascular: Rate/Rhythm: regular rate and regular rhythm Heart Sounds: no murmur Extremities: no edema (Has right leg prosthesis) Gastrointestinal (Abdomen): Inspection/Auscultation: abdomen not distended Percussion/Palpation: abdomen soft; abdomen nontender Musculoskeletal: No acute arthritis in any joint Neurologic: Alert, awake and oriented x3. Generally weak. Moving all limbs equally. Has right leg prosthesis Lymphatic: no cervical or axillary lymphadenopathy Results & Data Results & Data ([facility]) Vital Signs (Past 12 Hours) Vital Signs Temp Pulse Pulse Resp BP Pulse Ox Pulse Ox 11/30/20 11:57 37.2 C 70 20 177/106 H 100 11/30/20 08:00 96 11/30/20 07:40 36.9 C 68 20 163/105 H 99 11/30/20 07:00 70 11/30/20 03:22 37.2 C 70 20 152/94 H 98 Laboratory Results [facility] 11/30/20 05:21 Sodium 132 L Potassium 3.9 Chloride 102 Carbon Dioxide 22 BUN 18 Creatinine 1.05 Glucose 270 H Calcium 9.1 Medications Administered Current Inpatient Medications Acetaminophen (Acetaminophen 325 Mg Tab) 650 mg PO Q4H PRN PRN Reason: Pain or Fever Stop: 12/26/20 20:18 Folic Acid (Folic Acid 1 Mg Tab) [facility] [place] Stop: 12/26/20 20:18 Last Admin: 11/30/20 08:51 Dose: 1 mg Documented by: Heparin Sodium (Porcine) (Heparin Sod 5,000 Unit/0.5 Ml Vial) 5,000 units SQ Q12 [facility] Stop: 12/29/20 20:59 Last Admin: 11/30/20 08:52 Dose: Not Given Documented by: Lorazepam (Ativan) 1 mg in 2 mls @ 2 mls/min IV ONE PRN; Protocol PRN Reason: EtoH Withdrawal AWSS 6-10 Stop: 12/26/20 20:18 Multivitamins (Multivitamin Tab) 1 [facility] [place] Stop: 12/27/20 08:59 Last Admin: 11/30/20 08:51 Dose: 1 tab Documented by: Potassium Chloride (Potassium Chloride Crtab 20 Meq Tabcr) 20 meq PO DAILY [facility] Stop: 12/30/20 08:59 Last Admin: 11/30/20 08:51 Dose: 20 meq Documented by: Thiamine HCl (Thiamine Hcl 100 Mg Tab) 100 mg PO QAM [facility] Stop: 12/26/20 20:18 Last Admin: 11/30/20 08:51 Dose: 100 mg Documented by: (1) HTN (hypertension) Hypertension type: unspecified Qualified Code(s): I10 - Essential (primary) hypertension
[2020-12-01] MEDS ORDERED: carvediloL 3.125 MG TAB PO SCH (05:00)
[2020-12-01 06:03] LABS: Basophils # (auto) 0.01 K/uL (0-0.2); Basophils % (auto) 0.2 %; Eosinophils # (auto) 0.11 K/uL (0-0.5); Eosinophils % (auto) 1.9 %; Hematocrit (blood only) 33.5 % (42-52); Hemoglobin 11.4 g/dL (14.0-18.0); Immature Granulocytes # (auto) 0.01 K/uL (0.00-0.02); Immature Granulocytes % (auto) 0.2 %; Lymphocytes # (auto) 1.28 K/uL (1.2-3.4); Lymphocytes % (auto) 22.6 %; Mean Corpuscular Hemoglobin 30.6 pg (25-34); Mean Corpuscular Volume 90.1 fL (80-100); Mean Platelet Volume 9.5 fL (7.4-10.4); Monocytes % (auto) 19.4 %; Neutrophils # (auto) 3.15 K/uL (1.4-6.5); Neutrophils % (auto) 55.7 %; Platelet Count 235 K/uL (130-400); RDW Coefficient of Variation 12.2 % (11.5-14.5); RDW Standard Deviation 40.4 fL (36.4-46.3); Red Blood Count 3.72 M/uL (4.7-6.1); White Blood Count 5.66 K/uL (4.8-10.8)
[2020-12-01 06:43] LABS: BUN Creatinine Ratio 16.3 (10-20); Calcium 8.8 mg/dl (8.5-10.1); Creatinine Clr Calc Pharmacy 77.7 ml/min; Est GFR (African American) 90.3 ml/min; Est GFR (Non-African American) 77.9 ml/min; Magnesium 1.8 mg/dl (1.8-2.4); Potassium 3.9 mmol/L (3.5-5.1)
[2020-12-01 06:49] LABS: Phosphorus 3.7 mg/dl (2.5-4.9)
[2020-12-01] MEDS: HEPARIN SOD 5,000 UNIT/0.5 ML VIAL SQ SCH (08:01)
[2020-12-01] MEDS: POTASSIUM CHLORIDE CRTAB 20 MEQ TABCR PO SCH (08:01)
[2020-12-01] MEDS: THIAMINE HCL 100 MG TAB PO SCH (08:01)
[2020-12-01] MEDS: MULTIVITAMIN TAB PO SCH (08:01)
[2020-12-01] MEDS: FOLIC ACID 1 MG TAB PO SCH (08:01)
--- NOTE | 2020-12-01 09:43 | Nephrology Progress Note ---
Date of Service December 01, 2020 Assessment & Plan Admission and Anticipated Discharge Date Admission Date: November 26, 2020 Subjective No new issues. GENERAL: Elderly black male who appears older and chronically ill than his age. He is not in any overt respiratory distress, very slow speech and very hard to obtain accurate history from the patient. HEENT: Mucous membrane is moist. NECK: Supple. No jugular venous distention. CHEST: Bilaterally decreased breath sounds, poor inspiratory effort, limited quality exam. CARDIOVASCULAR: Slightly tachycardic. No systolic murmur heard. ABDOMEN: Soft, nontender. 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 NEUROLOGIC: Slow speech and seems lethargic. LABORATORY TESTS: normal creat and Na 134. normal renal function ASSESSMENT AND PLAN: A 60-year-old male with heavy ongoing alcohol use, admitted with critical hyponatremia with possible symptoms. I have been consulted for hyponatremia. Hyponatremia: It appears the etiology was excessive fluid/alcohol intake. He does have some underlying component of syndrome of inappropriate antidiuretic hormone, but this is predominantly very excessive fluid intake and most likely without appropriate solid food intake. Given the severe imbalance, he went into critical hyponatremia. No further workup needed. RECOMMENDATIONS: 1. Continue Free fluid restriction to 1500 mL per day. 2. BMP daily 3 Increase food intake, especially food with protein. However, this might be difficult as it does not appear he is motivated to get better at this point. He still has very heavy alcohol use. 5. As long as his high beer and alcohol and fluid intake persist, there is no way to get these things better long-term as outpt 6. Hypokalemia. We will correct with oral potassium. lower to 20 daily. 7 Sign off. Call if any new issues Results & Data ([facility]) Vital Signs (Past 12 Hours) Vital Signs Temp Pulse Pulse Resp BP Pulse Ox Pulse Ox 12/01/20 08:00 74 99 12/01/20 07:49 36.4 C L 74 18 154/99 H 99 12/01/20 03:37 37.1 C 69 20 163/107 H 98 12/01/20 01:00 71 12/01/20 00:00 99 11/30/20 23:25 37.4 C 79 20 143/90 H 98 11/30/20 22:00 88
--- NOTE | 2020-12-01 11:26 | Hospitalist Progress Note ---
Date of Service December 01, 2020 Assessment & Plan (1) Hyponatremia: Pt is 60 y/o M with PMH HTN, HLD, alcohol abuse, tobacco abuse, h/o recurrent pancreatitis, depression, h/o noncompliance presented to ER with complaint of arms and legs shaking for a couple of weeks. Pt awakens to voice and slow to answer questions. Pt had 3mg ativan in ER and ER physician reports pt was awake, oriented with normal speech prior to Ativan administration. Hyponatremia secondary to too much use of alcohol and beer Na: 115, serum osmolality: 258, Urine osmolality: 205, urine random sodium: 15, TSH: 1.2 Received 1 L of normal saline in the emergency room and the repeat sodium was 118 Appreciate nephrology input and recommendation Has been getting normal saline with potassium at a rate of 80 mL an hour Sodium level is minimally improved at 127 Will not have much improvement as long as he continues to drink the way he has been doing His sodium level is normalized and today is 134 Sodium level has been normalized hand the patient is eating and drinking normally We will get PT and OT evaluation before discharging Recommendations from battery plate assembler 1. Continue Free fluid restriction to 1500 mL per day. 3 Increase food intake, especially food with protein. However, this might be difficult as it does not appear he is motivated to get better at this point. He still has very heavy alcohol use. 5. As long as his high beer and alcohol and fluid intake persist, there is no way to get these things better long-term as outpt 6. Hypokalemia. We will correct with oral potassium. lower to 20 daily. (2) ETOH abuse: Reports drinks half pint emily a day. Last drink this morning. ETOH level: 21 In ER given ativan 3mg IV total, thiamine IV Alcohol withdrawal protocol, monitor for withdrawal Folic acid, thiamine, multivitamin Withdrawal symptoms are improving Does not have any more tremors of the outstretched hands Continue with gabapentin protocol Has not been having any significant withdrawal symptoms Remains pleasantly confused and generally weak Social service discharge planning (3) Hypokalemia: K: 3.0, magnesium: 2.1 In ER was given 1K rider, 20 mEq potassium p.o. Replace and monitor-potassium remains low at 3.2 today We will supplement and monitor Electrolytes remains unremarkable (4) IDALIA (acute kidney injury): BUN: 17, Cr: 1.6 (Cr 0.7 in 2020) Repeat Cr at 1.4 after 1L NSS in ER Monitor renal functions, avoid nephrotoxic agents when possible Creatinine has been increasing-we will monitor Creatinine seems to be worsening-continue with intravenous fluid IDALIA resolved (5) HTN (hypertension): In ER BP 179/101, 143/98 Previously was on carvedilol 3.125 daily and lisinopril 20 mg daily. Patient has not taken these medications for unknown amount of time Monitor BP, may need to restart BP meds DVT Prophylaxis Subcu heparin -SCDs Full Code as per discussion with pt Follows with Dr Oseguera for routine care, however has not been seen for years If cleared by PT and OT he will be discharged home this afternoon Admission and Anticipated Discharge Date Admission Date: November 26, 2020 Subjective 11/27/2020 The patient was seen and examined in telemetry unit He has been much better this morning and the without any confusion He does not have significant withdrawal symptoms Denies any fever and/or chills, any nausea and or vomiting and no pain 11/28/2020 The patient was seen and examined in telemetry unit He has been feeling much better and does not have any significant confusion Does not have any tremors with outstretched hands Remains minimally tachycardic at 100/min 11/29/2020 The patient was seen and examined in telemetry unit He has been much better without any acute distress but remains pleasantly confused and generally weak Denies any significant symptoms Does not have any symptoms of withdrawal 11/30/2020 The patient was seen and examined in telemetry unit He remains drowsy and generally weak but denies any other significant symptoms No tremors in outstretched hands No nausea and or vomiting, no fever and/or chills 12/01/2020 The patient was seen and examined in telemetry unit He has been feeling much better and is generalized weakness seems to be improved He will have physical therapy today before discharge He refused to go to rehab Review of Systems Review of Systems: All systems reviewed and are unremarkable except as noted below Neurologic: + generalized weakness Physical Exam Physical Exam: Lying in bed without any acute distress but remains generally weak and lethargic Constitutional: well developed, well nourished and + ill appearing Eyes: PERRL, conjunctivae normal, anicteric sclerae ENMT: external ear and nose normal, oropharynx normal Neck: trachea midline, no thyromegaly Respiratory: no respiratory distress Auscultation: lungs clear to auscultation bilaterally Cardiovascular: Rate/Rhythm: regular rate and regular rhythm Heart Sounds: no murmur Extremities: no edema (Has right leg prosthesis) Gastrointestinal (Abdomen): Inspection/Auscultation: abdomen not distended Percussion/Palpation: abdomen soft; abdomen nontender Musculoskeletal: Denies any acute arthritis in any joint he does have right leg prosthesis Neurologic: Alert , awake and oriented x3. Generally weak Lymphatic: no cervical or axillary lymphadenopathy Results & Data Results & Data ([facility]) Vital Signs (Past 12 Hours) Vital Signs Temp Pulse Pulse Resp BP Pulse Ox Pulse Ox 12/01/20 08:00 74 99 12/01/20 07:49 36.4 C L 74 18 154/99 H 99 12/01/20 03:37 37.1 C 69 20 163/107 H 98 12/01/20 01:00 71 12/01/20 00:00 99 11/30/20 23:25 37.4 C 79 20 143/90 H 98 Laboratory Results Short CBC 12/01/20 Range/Units 05:46 WBC 5.66 (4.8-10.8) K/uL Hgb 11.4 L (14.0-18.0) g/dL Hct 33.5 L (42-52) % Plt Count 235 (130-400) K/uL BMP 12/01/20 05:46 Sodium 134 L Potassium 3.9 Chloride 101 Carbon Dioxide 25 BUN 17 Creatinine 1.05 Glucose 272 H Calcium 8.8 Medications Administered Current Inpatient Medications Acetaminophen (Acetaminophen 325 Mg Tab) 650 mg PO Q4H PRN PRN Reason: Pain or Fever Stop: 12/26/20 20:18 Carvedilol (Carvedilol 3.125 Mg Tab) 3.125 mg PO BID RONEY Stop: 12/31/20 04:59 Last Admin: 12/01/20 06:01 Dose: 3.125 mg Documented by: Folic Acid (Folic Acid 1 Mg Tab) 1 mg PO QAM RONEY Stop: 12/26/20 20:18 Last Admin: 12/01/20 08:01 Dose: 1 mg Documented by: Heparin Sodium (Porcine) (Heparin Sod 5,000 Unit/0.5 Ml Vial) 5,000 units SQ Q12 RONEY Stop: 12/29/20 20:59 Last Admin: 12/01/20 08:01 Dose: Not Given Documented by: Lorazepam (Ativan) 1 mg in 2 mls @ 2 mls/min IV ONE PRN; Protocol PRN Reason: EtoH Withdrawal AWSS 6-10 Stop: 12/26/20 20:18 Multivitamins (Multivitamin Tab) 1 tab PO QAM [facility] Stop: 12/27/20 08:59 Last Admin: 12/01/20 08:01 Dose: 1 tab Documented by: Potassium Chloride (Potassium Chloride Crtab 20 Meq Tabcr) 20 meq PO DAILY [facility] Stop: 12/30/20 08:59 Last Admin: 12/01/20 08:01 Dose: 20 meq Documented by: Thiamine HCl (Thiamine Hcl 100 Mg Tab) 100 mg PO QAM [facility] Stop: 12/26/20 20:18 Last Admin: 12/01/20 08:01 Dose: 100 mg Documented by: (1) HTN (hypertension) Hypertension type: unspecified Qualified Code(s): I10 - Essential (primary) hypertension
[2020-12-01] MEDS ORDERED: cloNIDine HCL 0.1 MG TAB PO SCH (12:45)
--- NOTE | 2020-12-10 17:12 | Discharge Summary ---
Date of Service December 10, 2020 Admission HPI Per Admitting Provider Pt is 60 y/o M with PMH HTN, HLD, alcohol abuse, tobacco abuse, h/o recurrent pancreatitis, depression, h/o noncompliance presented to ER with complaint of arms and legs shaking for a couple of weeks. History obtained from patient and record review. Pt awakens to voice and slow to answer questions. Pt had 3mg ativan in ER and ER physician reports pt was awake, oriented with normal speech prior to Ativan administration. Patient reports drinks half a pint of emily a day. Reports last drink this morning. He denies vomiting, diarrhea. Patient reports on mid abdominal pain that radiates to back. Patient states that he has not been taking any of his medications including his blood pressure medication and gabapentin for "awhile". I Called pt's pharmacy [facility] on [address] and he has not had medications filled since 02/15/2019 (Coreg 3.1251 tablet daily, lisinopril 20 mg daily, omeprazole 40 mg daily, ranitidine 150 mg daily, gabapentin 300 mg 1 capsule TID). Denies fever/chills, OKEEFE, dizziness, syncope, vision changes, neck pain, CP, SOB, cough, extremity edema, increased abdominal girth, rashes, urinary symptoms to this provider. Admission Exam Per Admitting Provider Physical Exam: General: no distress, WDWN Head: normocephalic, atraumatic Eyes: PERRL, EOM's intact, conjunctiva non-injected, anicteric ENT: normal inspection external ears, nose, mucous membranes moist Neck: supple, trachea midline Lungs: clear, no respiratory distress, no wheezing/rhonchi/rales CV: tachycardia rate 104, regular rhythm, no pretibial edema Abd: normal BS, soft, non-tender to palpation at this time Ext: no cyanosis, no erythema, no calf tenderness; right BKA Neuro: sleepy, awakens to voice. Pt slow to answer questions. oriented to person, place, month and year, sporadic jerking/fidgeting type movement of arms and legs, +tremor hands bilaterally, no asterixis, no other focal deficits noted Skin: warm, dry Principal Diagnosis Severe hyponatremia secondary to excessive alcohol intake, alcohol abuse-refused inpatient rehab, IDALIA, hypertension Discharge Exam Constitutional well developed, well nourished and + ill appearing Eyes PERRL, conjunctivae normal, anicteric sclerae ENMT external ear and nose normal, oropharynx normal Neck trachea midline, no thyromegaly Respiratory no respiratory distress Auscultation: lungs clear to auscultation bilaterally Cardiovascular Rate/Rhythm: regular rate and regular rhythm Heart Sounds: no murmur Extremities: no edema (Has right leg prosthesis) Gastrointestinal (Abdomen) Inspection/Auscultation: abdomen not distended Percussion/Palpation: abdomen soft; abdomen nontender Lymphatic no cervical or axillary lymphadenopathy Discharge Data Allergies Allergy/AdvReac Type Severity Reaction Status Date / Time No Known Allergies Allergy Verified 11/26/20 17:29 Consultations 11/26/20 16:46 ED Decision to Admit Stat 11/27/20 09:32 Consult Nephrology Routine Ordered Studies 11/26/20 17:40 CT head/brain wo con Stat Hospital Course (1) Hyponatremia: Pt is 60 y/o M with PMH HTN, HLD, alcohol abuse, tobacco abuse, h/o recurrent pancreatitis, depression, h/o noncompliance presented to ER with complaint of arms and legs shaking for a couple of weeks. Pt awakens to voice and slow to answer questions. Pt had 3mg ativan in ER and ER physician reports pt was awake, oriented with normal speech prior to Ativan administration. Hyponatremia secondary to too much use of alcohol and beer Na: 115, serum osmolality: 258, Urine osmolality: 205, urine random sodium: 15, TSH: 1.2 Received 1 L of normal saline in the emergency room and the repeat sodium was 118 Appreciate nephrology input and recommendation Has been getting normal saline with potassium at a rate of 80 mL an hour Sodium level is minimally improved at 127 Will not have much improvement as long as he continues to drink the way he has been doing His sodium level is normalized and today is 134 Sodium level has been normalized hand the patient is eating and drinking normally We will get PT and OT evaluation before discharging Recommendations from transfer and line up worker 1. Continue Free fluid restriction to 1500 mL per day. 3 Increase food intake, especially food with protein. However, this might be difficult as it does not appear he is motivated to get better at this point. He still has very heavy alcohol use. 5. As long as his high beer and alcohol and fluid intake persist, there is no way to get these things better long-term as outpt 6. Hypokalemia. We will correct with oral potassium. lower to 20 daily. (2) ETOH abuse: Reports drinks half pint emily a day. Last drink this morning. ETOH level: 21 In ER given ativan 3mg IV total, thiamine IV Alcohol withdrawal protocol, monitor for withdrawal Folic acid, thiamine, multivitamin Withdrawal symptoms are improving Does not have any more tremors of the outstretched hands Continue with gabapentin protocol Has not been having any significant withdrawal symptoms Remains pleasantly confused and generally weak Social service discharge planning (3) Hypokalemia: K: 3.0, magnesium: 2.1 In ER was given 1K rider, 20 mEq potassium p.o. Replace and monitor-potassium remains low at 3.2 today We will supplement and monitor Electrolytes remains unremarkable (4) IDALIA (acute kidney injury): BUN: 17, Cr: 1.6 (Cr 0.7 in 2019) Repeat Cr at 1.4 after 1L NSS in ER Monitor renal functions, avoid nephrotoxic agents when possible Creatinine has been increasing-we will monitor Creatinine seems to be worsening-continue with intravenous fluid IDALIA resolved (5) HTN (hypertension): In ER BP 179/101, 143/98 Previously was on carvedilol 3.125 daily and lisinopril 20 mg daily. Patient has not taken these medications for unknown amount of time Monitor BP, may need to restart BP meds DVT Prophylaxis Subcu heparin -SCDs Full Code as per discussion with pt Follows with Dr Oseguera for routine care, however has not been seen for years If cleared by PT and OT he will be discharged home this afternoon Total Time Total Time Spent Total Time Spent (In Minutes): 35 minutes Total Time Includes: Examination of the Patient, Discharge Planning, Medication Reconciliation and Communication With Other Providers Discharge Plan Discharge Items Patient Disposition: Home - Self-Care Reason For Visit: HYPONATREMIA Discharge Diagnosis: Severe hyponatremia secondary to excessive alcohol intake, alcohol abuse-refused inpatient rehab, IDALIA, hypertension Condition on Discharge: Fair Activity: Resume your previous activity Non-emergency contact: Primary Care Provider Call non-emergency contact if: you have any medication questions and your symptoms worsen Follow-up/Referrals: Liyah Oseguera MD [Primary Care Provider] - (Date & Time 12/04/2020 2:20 PM Provider Liyah Oseguera MD Department General Internal Medicine [facility] ) Diet: Regular Fluids: 1500ml (6 cups) Diet Comment: Strictly advised to decrease fluid intake to 1500 mL Addtl Attending Provider Instructions: Please take precaution to avoid falls Strongly advised to quit drinking As long as you keep drinking beer ,alcohol and do not restrict your fluid intake there is no way to get your electrolytes normalized Strongly advised to have follow-up appointment with outpatient alcohol rehab/alcohol Anonymous group Please keep appointment with your primary care provider and take your medications regularly Pending Studies at Discharge: No Stand-Alone Forms: My [facility], Smoking Cessation Medications and DC Order Prescriptions: New carvedilol 3.125 mg Tablet 3.125 mg PO BID Qty: 60 RF: 0 clonidine HCl 0.1 mg Tablet 0.1 mg PO BID Qty: 60 RF: 0 potassium chloride [Klor-Con M20] 20 mEq Tablet,Er Particles/Crystals 20 meq PO DAILY Qty: 30 RF: 0 folic acid 1 mg Tablet 1 mg PO QAM Qty: 30 RF: 0 multivitamin [Daily-Elise] Tablet 1 tab PO QAM Qty: 30 RF: 0 thiamine HCl (vitamin B1) [Vitamin B-1] 100 mg Tablet 100 mg PO QAM Qty: 30 RF: 0 No Action No Known Home Medications RF: 0 Discharge Orders: Discharge Order (Routine); Ordered 12/01/20 Ordered By: Malcom Murrieta Admission Data Admit Date/Time: 11/26/20 19:26 Attending Provider: Malcom Murrieta Admit Provider: Malcom Murrieta Primary Care Provider: Liyah Oseguera Other Providers: Malcom Murrieta ; Ivanna House ; Marquise Oseguera ; Elise Bermudez ; Sapna Minor Japheth E. ; Jin Barreto Other Interventions: Discharge Summary Assessment (RN) Last Done: 12/01/20 16:27
== END 2020-12-01 17:24 | disposition home or self-care (01) | DRG 641 ==
LOC: ED 13:42 → 2S 19:26

== ENCOUNTER 2022-04-29 07:16 | Inpatient (IN) ==
[2022-04-29] MEDS ORDERED: FAMOTIDINE 20MG IV PUSH 20 MG/5 ML SYR IV STA (07:51)
[2022-04-29] MEDS ORDERED: ONDANSETRON INJ 2 MG/ML 2 ML VIAL IV STA (07:51)
[2022-04-29] MEDS ORDERED: MoRPHine SULFATE 4 MG/ML 1 ML CARP\\VIAL IV STA (07:51)
[2022-04-29] MEDS ORDERED: SODIUM CHLORIDE 0.9% 1000ML 1,000 ML IV SCH (07:52)
[2022-04-29] MEDS ORDERED: MULTI-VITAMIN INFUSION 10 ML, THIAMINE HCL 100 MG, FOLIC ACID 1 MG in SODIUM CHLORIDE 0... IV ONE (07:53)
[2022-04-29 07:55] LABS: Basophils # (auto) 0.02 K/uL (0-0.2); Basophils % (auto) 0.3 %; Eosinophils # (auto) 0.06 K/uL (0-0.50); Eosinophils % (auto) 0.9 %; Hematocrit (blood only) 40.7 % (40.1-51.0); Hemoglobin 13.8 g/dl (14.0-18.0); Immature Granulocytes # (auto) 0.01 K/uL (0.00-0.02); Immature Granulocytes % (auto) 0.1 %; Lymphocytes # (auto) 1.02 K/uL (1.2-3.4); Lymphocytes % (auto) 15.1 %; Mean Corpuscular Hemoglobin 30.7 pg (25.0-34.0); Mean Corpuscular Hgb Conc 33.9 g/dL (32.0-36.0); Mean Corpuscular Volume 90.4 fL (80.0-100.0); Mean Platelet Volume 9.6 fL (9.4-12.4); Monocytes # (auto) 0.81 K/uL (0.24-0.82); Neutrophils # (auto) 4.84 K/uL (1.4-6.5); Neutrophils % (auto) 71.6 %; Platelet Count 205 K/uL (130-400); RDW Coefficient of Variation 12.3 % (11.5-14.5); RDW Standard Deviation 40.9 fL (36.4-46.3); White Blood Count 6.76 K/ul (4.8-10.8)
--- NOTE | 2022-04-29 07:57 | Emergency Department Note ---
History of Present Illness General Chief complaint: Abdominal Pain Stated complaint: ABDOMINAL PAIN Time Seen by Provider: 04/29/22 07:34 History of Present Illness Maximum Pain Intensity: 10 Patient is a 61-year-old male with past medical history significant for hypertension, dyslipidemia, GERD, ongoing alcohol abuse, tobacco abuse, history of pancreatitis, depression, history of noncompliance among other chronic medical problems who presents emergency department for evaluation of abdominal pain. He states that his symptoms started abruptly last evening. He reports pain across the bilateral mid abdomen. Does not radiate. There was some associated nausea, and he vomited once this morning. It was nonbloody. Last bowel movement was yesterday, reports normal for him, formed and brown without blood or melena. No diarrhea. He has not taken anything for his symptoms. He states this does feel similar to his prior episodes of pancreatitis. He describes the pain as constant and stabbing and rates it a 10/10. No urinary symptoms. Patient is chronically noncompliant. He does not see his primary care provider for routine health care, is not on any medications for his chronic diseases. He admits to drinking a sixpack of beer daily, sometimes more than this. Last alcohol consumption was yesterday. He denies eating or drinking anything this morning. Home Medications Medication Instructions Recorded Confirmed Type multivitamin (Daily-Elise tablet) 1 tab PO QAM #30 tabs 12/01/20 04/29/22 Rx Allergies Allergy/AdvReac Type Severity Reaction Status Date / Time No Known Allergies Allergy Verified 11/26/20 17:29 Past Med/Surg History Medical History (Updated 04/29/22 @ 09:13 by Bhavya Jacobo PA-C) Alcohol dependence a fifth of liquor and 12 beers daily for yrs. Depression GERD (gastroesophageal reflux disease) HLD (hyperlipidemia) HTN (hypertension) Hx of hematuria Hx of pancreatitis Obesity Pancreatitis, recurrent Phantom pain after amputation of lower extremity Tobacco abuse Surgical History Complete below knee amputation of right lower extremity History of mandibular surgery [facility] 1978 History of tooth extraction ALL TEETH REMOVED Hx of right BKA 2013 s/p fracture of tibia/fibula with associated infection Family History (Updated 04/29/22 @ 09:26 by Bhavya Jacobo PA-C) Sister Family history of diabetes mellitus Brother Pancreatic carcinoma Social History Smoking Status: Current every day smoker Tobacco Type: Cigarettes Cigarettes Per Day: 10; Second Hand Exposure: No; Hx Alcohol Use: Yes Alcohol type: beer Alcohol Intake Frequency: 4 or More x per/Week Alcohol Intake Frequency Comment: 6 pack of beer + daily Hx Substance Use: No Preferred Language: Bengali Communication Ability: Effective Marine Diver Required: No Beliefs That Will Affect Care: None marital status: Single Current Living Situation: Other Current Living Situation Comment: lives with roomate Feels Safe at Home: Yes Assistive Devices: Prosthesis Review of Systems A total of 10 systems reviewed and were otherwise negative Physical Exam Vital Signs Vital Signs - 24 hr 04/29/22 07:21 04/29/22 08:07 04/29/22 08:16 Temperature 36.3 C L Temperature Source Oral Pulse Rate 63 Pulse Rate [Right Finger] 58 L 72 Pulse Rate from SpO2 Sensor Pulse Rhythm [Right Finger] Regular Respiratory Rate 18 20 20 Respiratory Effort / Characteristics Non-Labored Non-Labored Respiratory Depth Normal Normal Blood Pressure 181/98 H Blood Pressure [Right Arm] 182/102 H 178/102 H Blood Pressure Mean 125 Blood Pressure Mean [Right Arm] 128 127 Pulse Oximetry 99 99 99 Oxygen Delivery Method Room Air Room Air Room Air Sepsis Recent Fever Within 48 Hours No Sepsis New/Unexplained Change in Mental Status No Sepsis Action Taken by Nursing No Action Required 04/29/22 08:30 04/29/22 09:00 04/29/22 09:00 Temperature Temperature Source Pulse Rate 63 58 L Pulse Rate [Right Finger] Pulse Rate from SpO2 Sensor Pulse Rhythm [Right Finger] Respiratory Rate 17 19 Respiratory Effort / Characteristics Respiratory Depth Blood Pressure 178/101 H Blood Pressure [Right Arm] Blood Pressure Mean 126 Blood Pressure Mean [Right Arm] Pulse Oximetry 98 Oxygen Delivery Method Room Air Sepsis Recent Fever Within 48 Hours Sepsis New/Unexplained Change in Mental Status Sepsis Action Taken by Nursing 04/29/22 09:30 04/29/22 09:30 04/29/22 09:45 Temperature Temperature Source Pulse Rate 63 Pulse Rate [Right Finger] Pulse Rate from SpO2 Sensor 64 Pulse Rhythm [Right Finger] Respiratory Rate 29 H Respiratory Effort / Characteristics Respiratory Depth Blood Pressure 183/109 H 186/103 H Blood Pressure [Right Arm] Blood Pressure Mean 133 130 Blood Pressure Mean [Right Arm] Pulse Oximetry 98 Oxygen Delivery Method Sepsis Recent Fever Within 48 Hours Sepsis New/Unexplained Change in Mental Status Sepsis Action Taken by Nursing 04/29/22 09:45 Temperature Temperature Source Pulse Rate 59 L Pulse Rate [Right Finger] Pulse Rate from SpO2 Sensor Pulse Rhythm [Right Finger] Respiratory Rate 19 Respiratory Effort / Characteristics Respiratory Depth Blood Pressure Blood Pressure [Right Arm] Blood Pressure Mean Blood Pressure Mean [Right Arm] Pulse Oximetry Oxygen Delivery Method Sepsis Recent Fever Within 48 Hours Sepsis New/Unexplained Change in Mental Status Sepsis Action Taken by Nursing CONSTITUTIONAL: Patient is a well-appearing 61-year-old male who is awake and alert and laying on the gurney. EYES: Pupils equal, round, reactive to light and accommodation. EOMs intact without nystagmus. Sclera are anicteric. ENT: Tympanic membranes intact, with normal landmarks. External canals are clear. Oral and nasopharynx are clear. Mucous membranes are moist, no lesions, tongue and gums appear normal. CARDIOVASCULAR: Regular rate and rhythm. Peripheral pulses easy to palpable. RESPIRATORY: Breath sounds equal and clear to auscultation without wheezes, rales, or rhonchi heard. Full and equal chest expansion without accessory muscle use or retractions. GI: Bowel sounds are present. Abdomen is soft, mildly distended, tympanic to percussion throughout. Mild tenderness to palpation throughout the entire abdomen, primarily in the upper abdomen. Voluntary guarding. No rigidity. No obvious organomegaly. No pulsatile masses. MUSCULOSKELETAL: Status post right BKA. Full range of motion of extremities x 3 with good strength. No cyanosis, edema, joint tenderness or swelling. No deformity. INTEGUMENTARY: No lesions or rash, normal skin turgor. NEUROLOGICAL: Alert, oriented, and cooperative. Cranial nerves, sensation and strength grossly intact. Pupils round, equal, and react to light, EOMs are full. LYMPH: No lymphadenopathy. Course Course The patient was seen and assessed as above. Old records were reviewed. He presents emergency department for evaluation of abdominal pain. No chest pain. No shortness of breath. He has a history of alcohol abuse, with history of wi thdrawal and pancreatitis. IV lock was initiated and laboratory studies were collected. He was placed on a quality assurance monitor. Laboratory studies including CBC with differential, CMP, lipase, urinalysis and medical alcohol were obtained. He was hydrated with normal saline solution and a banana bag was administered. He was treated with Pepcid, morphine and Zofran IV. Patient was reviewed with attending physician, Dr. Garcia. Laboratory studies note a normal white count at 6700. No left shift. H&H 13.8 and 40.7. Electrolytes note a mild hyponatremia with a sodium of 132, remainder of electrolytes are without significant abnormality requiring replacement. BUN 8, creatinine 0.69. Glucose elevated at 222. Total bilirubin mildly elevated at 1.1, alk phos mildly elevated 124 remainder of his transaminases are normal. His lipase is elevated, 876. Urine microscopy notes glucosuria and 1+ ketones, no other indicators for infection. Blood alcohol level was undetectable. A COVID swab obtained for admitting purposes was negative. The patient was reassessed. Laboratory studies were reviewed with him. He does not previously carry a diagnosis of diabetes, but he has an elevated fasting blood sugar this morning at 222. His lipase is elevated consistent with pancreatitis. He was agreeable to admission/observation. Consultation was placed with the [facility] service, and they will admit the patient for further care. Please refer to admitting note for further information. Administered Medications Acetaminophen (Acetaminophen 325 Mg Tab) 650 mg PO Q4H PRN PRN Reason: Moderate Pain Stop: 05/29/22 13:16 Last Admin: 04/29/22 15:30 Dose: 650 mg Documented By: [facility] Discontinued Medications Sodium Chloride (Nss 1000ml) 1,000 mls @ 999 mls/hr IV .Q1H1M RONEY Stop: 04/29/22 08:52 Last Infusion: 04/29/22 09:10 Dose: 0 mls/hr Documented By: Admin: 04/29/22 08:09 Dose: 999 mls/hr Documented By: PRANAY Sodium Chloride (Nss 1000ml) 1,000 mls @ 250 mls/hr IV .Q4H RONEY Stop: 05/29/22 07:59 Last Admin: 04/29/22 10:39 Dose: Not Given Documented By: PRANAY Famotidine (Pepcid 20mg Iv Push) 20 mg in 5 mls @ 2.5 mls/min IV NOW STA Stop: 04/29/22 07:52 Last Admin: 04/29/22 08:08 Dose: 2.5 mls/min Documented By: PRANAY Multivitamins 10 ml/ Thiamine HCl 100 mg/ Folic Acid 1 mg/Sodium Chloride 1,011.2 mls @ 1,011.2 mls/hr IV .Q1H ONE Stop: 04/29/22 08:52 Last Infusion: 04/29/22 09:22 Dose: 0 mls/hr Documented By: Admin: 04/29/22 08:22 Dose: 1,011.2 mls/hr Documented By: PRANAY Morphine Sulfate (Morphine Sulfate 4 Mg/Ml 1 Ml Carp\Vial) 4 mg IV Q1H PRN PRN Reason: Pain Stop: 05/13/22 07:50 Last Admin: 04/29/22 12:57 Dose: 4 mg Documented By: Admin: 04/29/22 09:12 Dose: 4 mg Documented By: DAHIANA Morphine Sulfate (Morphine Sulfate 4 Mg/Ml 1 Ml Carp\Vial) 4 mg IV NOW STA Stop: 04/29/22 07:52 Last Admin: 04/29/22 08:08 Dose: 4 mg Documented By: PRANAY Ondansetron HCl (Ondansetron Inj 2 Mg/Ml 2 Ml Vial) 4 mg IV NOW STA Stop: 04/29/22 07:52 Last Admin: 04/29/22 08:08 Dose: 4 mg Documented By: PRANAY Medical Decision Making Differential Diagnosis Differential diagnoses entertained included GERD, gastritis, esophagitis, peptic ulcer disease, acute pancreatitis, biliary colic, bowel obstruction, mass or malignancy, electrolyte or metabolic abnormality, dehydration, among others. Medical Records Attestation: I reviewed the patient's medical records. Home Medications Current Medication List: was personally reviewed by az Laboratory Data Attestation: I reviewed the patient's lab results. Result diagrams: 04/29/22 07:40 04/29/22 07:40 Lab Results 04/29/22 04/29/22 04/29/22 Range/Units 07:32 07:40 07:40 WBC 6.76 (4.8-10.8) K/ul RBC 4.50 L (4.63-6.08) M/uL Hgb 13.8 L (14.0-18.0) g/dl Hct 40.7 (40.1-51.0) % MCV 90.4 (80.0-100.0) fL MCH 30.7 (25.0-34.0) pg MCHC 33.9 (32.0-36.0) g/dL RDW Std Deviation 40.9 (36.4-46.3) fL RDW Coeff of Miguel 12.3 (11.5-14.5) % Plt Count 205 (130-400) K/uL MPV 9.6 (9.4-12.4) fL Immature Gran % (Auto) 0.1 % Neut % (Auto) 71.6 % Lymph % (Auto) 15.1 % [place] % (Auto) 12.0 % Eos % (Auto) 0.9 % Baso % (Auto) 0.3 % Neut # (Auto) 4.84 (1.4-6.5) K/uL Lymph # (Auto) 1.02 L (1.2-3.4) K/uL [place] # (Auto) 0.81 (0.24-0.82) K/uL Eos # (Auto) 0.06 (0-0.50) K/uL Baso # (Auto) 0.02 (0-0.2) K/uL Immature Gran # (Auto) 0.01 (0.00-0.02) K/uL Sodium 132 L (136-145) mmol/L Potassium 3.7 (3.5-5.1) mmol/L Chloride 97 L (98-107) mmol/L Carbon Dioxide 25 (21-32) mmol/L Anion Gap 10 (3-11) BUN 8 (6-23) mg/dl Creatinine 0.69 (0.6-1.4) mg/dl Est Cr Clr Drug Dosing 116.8 ml/min Est GFR ( Amer) 120.4 ml/min Est GFR (Non-Af Amer) 103.9 ml/min BUN/Creatinine Ratio 11.6 (10-20) Glucose 222 H (70-99(Fasting)) mg/dl Estimat Average Glucose mg/dl Hemoglobin A1c (4.5-5.6) % Calcium 9.6 (8.5-10.1) mg/dl Total Bilirubin 1.1 H (0.2-1.0) mg/dl AST 32 (13-39) U/L ALT 49 (7-52) U/L Alkaline Phosphatase 124 H (34-104) U/L Total Protein 8.1 (6.0-8.3) gm/dl Albumin 4.6 (3.4-5.0) gm/dl Globulin 3.5 (2.5-4.0) gm/dl Albumin/Globulin Ratio 1.3 (0.9-2) Lipase 876 H (11-82) U/L Urine Color Yellow Urine Appearance Clear (Clear) Urine pH 5.5 (4.5-7.5) Ur Specific [place] 1.023 (1.000-1.030) Urine Protein 2+ H (Negative) Urine Glucose (UA) 3+ H (Negative) Urine Ketones 1+ H (Negative) Urine Blood Trace H (Negative) Urine Nitrite Negative (Negative) Urine Bilirubin Negative (Negative) Urine Urobilinogen Negative (Negative) Ur Leukocyte Esterase Negative (Negative) Urine WBC (Auto) 1-5 (0-5) /hpf Urine RBC (Auto) 0-4 (0-4) /hpf U Hyaline Cast (Auto) 1-5 (0-5) /lpf U Epithel Cells (Auto) 20-30 H (0-5) /lpf Urine Bacteria (Auto) Negative (Negative) Ethyl Alcohol mg/dL (<10.0) mg/dl SARS-CoV-2, RNA, NAAT (NEGATIVE) 04/29/22 04/29/22 04/29/22 Range/Units 07:40 07:40 08:56 WBC (4.8-10.8) K/ul RBC (4.63-6.08) M/uL Hgb (14.0-18.0) g/dl Hct (40.1-51.0) % MCV (80.0-100.0) fL MCH (25.0-34.0) pg MCHC (32.0-36.0) g/dL RDW Std Deviation (36.4-46.3) fL RDW Coeff of Miguel (11.5-14.5) % Plt Count (130-400) K/uL MPV (9.4-12.4) fL Immature Gran % (Auto) % Neut % (Auto) % Lymph % (Auto) % [place] % (Auto) % Eos % (Auto) % Baso % (Auto) % Neut # (Auto) (1.4-6.5) K/uL Lymph # (Auto) (1.2-3.4) K/uL [place] # (Auto) (0.24-0.82) K/uL Eos # (Auto) (0-0.50) K/uL Baso # (Auto) (0-0.2) K/uL Immature Gran # (Auto) (0.00-0.02) K/uL Sodium (136-145) mmol/L Potassium (3.5-5.1) mmol/L Chloride (98-107) mmol/L Carbon Dioxide (21-32) mmol/L Anion Gap (3-11) BUN (6-23) mg/dl Creatinine (0.6-1.4) mg/dl Est Cr Clr Drug Dosing ml/min Est GFR ( Amer) ml/min Est GFR (Non-Af Amer) ml/min BUN/Creatinine Ratio (10-20) Glucose (70-99(Fasting)) mg/dl Estimat Average Glucose 212 mg/dl Hemoglobin A1c 9.0 H (4.5-5.6) % Calcium (8.5-10.1) mg/dl Total Bilirubin (0.2-1.0) mg/dl AST (13-39) U/L ALT (7-52) U/L Alkaline Phosphatase (34-104) U/L Total Protein (6.0-8.3) gm/dl Albumin (3.4-5.0) gm/dl Globulin (2.5-4.0) gm/dl Albumin/Globulin Ratio (0.9-2) Lipase (11-82) U/L Urine Color Urine Appearance (Clear) Urine pH (4.5-7.5) Ur Specific [place] (1.000-1.030) Urine Protein (Negative) Urine Glucose (UA) (Negative) Urine Ketones (Negative) Urine Blood (Negative) Urine Nitrite (Negative) Urine Bilirubin (Negative) Urine Urobilinogen (Negative) Ur Leukocyte Esterase (Negative) Urine WBC (Auto) (0-5) /hpf Urine RBC (Auto) (0-4) /hpf U Hyaline Cast (Auto) (0-5) /lpf U Epithel Cells (Auto) (0-5) /lpf Urine Bacteria (Auto) (Negative) Ethyl Alcohol mg/dL < 10.0 (<10.0) mg/dl SARS-CoV-2, RNA, NAAT NEGATIVE (NEGATIVE) MDM Narrative See ED course. Impression & Plan Pancreatitis, alcoholic, acute, Acute generalized abdominal pain Discharge Plan Visit Data Chief Complaint: Abdominal Pain Stated Complaint: ABDOMINAL PAIN ED Provider: Lennox Garcia ED Midlevel Provider: Brenda Taylor Discharge Problem: Pancreatitis, alcoholic, acute, Acute generalized abdominal pain Patient Disposition: Being Evaluated by Hospitalist Discharge Instructions Interventions: ED Discharge Assessment Last Done: 04/29/22 12:34
[2022-04-29 07:58] LABS: Appearance Urine Clear (Clear); Bacteria Urine Automated Negative (Negative); Bilirubin Urine Negative (Negative); Blood Urine Trace (Negative); Color Urine Yellow; Epithelial Cell Urine Auto 20-30 /lpf (0-5); Glucose Urine UA 3+ (Negative); Ketones Urine 1+ (Negative); Leukocyte Esterase Urine Negative (Negative); Nitrite Urine Negative (Negative); Protein Urine 2+ (Negative); RBC Urine Automated 0-4 /hpf (0-4); Specific Gravity Urine 1.023 (1.000-1.030); Urobilinogen Urine Negative (Negative); pH Urine 5.5 (4.5-7.5)
[2022-04-29] MEDS: SODIUM CHLORIDE 0.9% 1000ML 1,000 ML IV SCH ×4 (08:09→17:24)
[2022-04-29 08:20] LABS: BUN Creatinine Ratio 11.6 (10-20); Calcium 9.6 mg/dl (8.5-10.1); Creatinine Clr Calc Pharmacy 116.8 ml/min; Est GFR (African American) 120.4 ml/min; Est GFR (Non-African American) 103.9 ml/min; Potassium 3.7 mmol/L (3.5-5.1)
[2022-04-29 08:37] LABS: Albumin Globulin Ratio 1.3 (0.9-2); Albumin Level 4.6 gm/dl (3.4-5.0); Bilirubin,Total 1.1 mg/dl (0.2-1.0); Globulin 3.5 gm/dl (2.5-4.0); Total Protein 8.1 gm/dl (6.0-8.3)
[2022-04-29] MEDS: MoRPHine SULFATE 4 MG/ML 1 ML CARP\\VIAL IV PRN ×4 (09:12→21:01)
--- NOTE | 2022-04-29 09:14 | History & Physical Report ---
Date of Service April 29, 2022 Assessment & Plan (1) Acute pancreatitis: (2) Alcoholism: (3) Nausea & vomiting: Plan: -Admit to [facility] for acute pancreatitis, lipase is greater than 800 -Receiving banana bag in the ER, continue with NSS at 150 mL x 2 bags -Patient is only taking multivitamin at home, add folic acid and thiamine daily -Monitor for acute alcohol withdrawal, last drink was last evening, typically drinks 6 pack of beer per day. He has no desire to stop drinking. - Check CT abd/pelvis to eval pancrease - Pt is not currently nauseous or vomiting - avoid zofran with prolonged qtc, can use reglan if needed - Pain control with tylenol, no other narcotics - Checking urine drug screen (4) HTN (hypertension): Plan: -History of such, previous outpatient med rec includes him being on clonidine 0.1 mg BID and carvedilol 3.125 mg BId, he has not been taking these medications for a long time. Last time he saw his PCP was over 3 years ago. - BP is 160s/80 while at bedside, monitor - EKG reviewed and has prolonged QTC, will hold on QTC prolonging agents - Consider echo while admitted, currently no cardiac complaints (5) HLD (hyperlipidemia): Plan: -History of such we will check a lipid panel with a.m. lab, a1c for completeness and noted elevated glucose of 220 on admission, possible that he is diabetic. Will follow. (6) Hx of right BKA: Plan: -Status post tib-fib fracture of the right leg with subsequent infection causing needs for amputation in 2013 -Has prosthetic with him, fitting him well, stump appears intact no signs of erythema, edema or in any infection. -PT/OT consults, patient feels that he is getting weaker, but also notes that he spends most of his day sitting in a chair. (7) Tobacco abuse: Plan: - Smokes 4 to 5 cigarettes/day, patient reports he does not need a nicotine patch, has smoked since age 17. - Denies any respiratory complaints DVT ppx: - teds, scds, heparin subq CODE: Full code Dispo: From home, likely to remain in the hospital x 1-2 days History of Present Illness Chief Complaint: Abd pain Primary Care Provider: Liyah Oseguera MD This is a 61-year-old male with PMHx of HTN, HLD, alcohol abuse, currently drinking a sixpack of beer per day, pancreatitis, hyponatremia, marijuana use who presents to the hospital with 1 day of abdominal pain. He denies any nausea or vomiting. Admits to drinking alcohol 6 beers per day and has been doing this for a very long time. He has had pancreatitis on 2 other occasions where he required being treated in an ER/hospital. He used to drink more alcohol including liquor but no longer does. He has no desire to quit drinking alcohol presently. He denies any illicit drug use currently. Admits to smoking cigarettes 4 to 5/day, but states he does not need a nicotine patch as he can "quit when I want to". He lives by himself at home, and spends majority of his day sitting in a recliner. He does not work. Has 2 brothers who come visit him about every other month and has some local friends who are his support system. He has not spoken to his mother in over 30 years. 2 of his siblings are , 1 of them due to pancreatic cancer. Lipase is found to be elevated at 876. No abdominal imaging was obtained in the ER. Glucose is elevated at 222 and reports that he last ate yesterday. Allergies Allergy/AdvReac Type Severity Reaction Status Date / Time No Known Allergies Allergy Verified 11/26/20 17:29 Home Medications Medication Instructions Recorded Confirmed Type multivitamin (Daily-Elise tablet) 1 tab PO QAM #30 tabs 12/01/20 04/29/22 Rx Past Med/Surg History Medical History (Updated 04/29/22 @ 09:13 by Bhavya Jacobo PA-C) Alcohol dependence a fifth of liquor and 12 beers daily for yrs. Depression GERD (gastroesophageal reflux disease) HLD (hyperlipidemia) HTN (hypertension) Hx of hematuria Hx of pancreatitis Obesity Pancreatitis, recurrent Phantom pain after amputation of lower extremity Tobacco abuse Surgical History Complete below knee amputation of right lower extremity History of mandibular surgery [facility] 1978 History of tooth extraction ALL TEETH REMOVED Hx of right BKA 2013 s/p fracture of tibia/fibula with associated infection Family History (Updated 04/29/22 @ 09:26 by Bhavya Jacobo PA-C) Sister Family history of diabetes mellitus Brother Pancreatic carcinoma Social History Smoking Status: Current every day smoker Tobacco Type: Cigarettes Cigarettes Per Day: 10; Second Hand Exposure: No; Do You Dip or Chew Tobacco: No; Tobacco Cessation Education Requested by Patient: No Hx Alcohol Use: Yes Alcohol type: beer and hard liquor Alcohol Intake Frequency: 4 or More x per/Week Alcohol Intake Frequency Comment: 6 pack of beer + daily Hx Substance Use: No Preferred Language: Spanish Communication Ability: Effective Dust Collector Required: No Beliefs That Will Affect Care: None marital status: Single Current Living Situation: Alone Current Living Situation Comment: lives with roomate Other Information That Helps Us Care for You: No Feels Safe at Home: Yes Safety Concerns: Feels Safe At This Time Assistive Devices: Cane and Prosthesis Review of Systems Review of Systems: Constitutional: No fever, sweats or chills Eyes: No diplopia, no worsening or blurred vision ENT: normal hearing, no trouble swallowing Respiratory: No cough, sputum, dyspnea at rest or on exertion Cardiovascular: No chest pain, tightness or palpitations Abdomen: As per HPI, +pain, no nausea, vomiting, diarrhea or constipation Musculoskeletal: No joint pain, calf pain, swelling, + s/p Right BKA Neurologic: + mild weakness, no numbness/tingling, or balance problems Psychiatric: No anxiety or depression Skin: No rash or itch Physical Exam Physical Exam: General: awake, alert, no apparent distress, male Head: Normocephalic, atraumatic ENT: PERRL, EOMI, no pharyngeal exudate, mucous membranes moist Chest: Clear to auscultation, on room air, no adventitious breath sounds Cardiac: Regular rate and rhythm, no murmur, no JVD, normal peripheral pulses, good capillary refill Abdominal: NABS x 4 quadrants, soft, nondistended, + epigastric tenderness with palpation, no radiation, no rebound or guarding Extremities: + Right TKA with well healed stump, no skin breakdown from prosthetic, otherwise Normal inspection, no peripheral edema or erythema, calfs nontender to palpation Psych: Flat/depressed mood and affect Neuro: AAO x 3, strength intact bilaterally and rated 5/5, no motor deficits, speech is clear, no peripheral sensory deficits Results & Data Results & Data ([facility]) Vital Signs (Past 12 Hours) Vital Signs Temp Pulse Pulse Resp BP BP Pulse Ox 04/29/22 08:30 63 17 98 04/29/22 08:16 72 20 178/102 H 99 04/29/22 08:07 58 L 20 182/102 H 99 04/29/22 07:21 36.3 C L 63 18 181/98 H 99 O2 Del Method 04/29/22 08:30 04/29/22 08:16 Room Air 04/29/22 08:07 Room Air 04/29/22 07:21 Room Air Laboratory Results 04/29/22 04/29/22 04/29/22 07:40 07:40 07:40 WBC 6.76 RBC 4.50 L Hgb 13.8 L Hct 40.7 MCV 90.4 MCH 30.7 MCHC 33.9 RDW Std Deviation 40.9 RDW Coeff of Miguel 12.3 Plt Count 205 MPV 9.6 Immature Gran % (Auto) 0.1 Neut % (Auto) 71.6 Lymph % (Auto) 15.1 [place] % (Auto) 12.0 Eos % (Auto) 0.9 Baso % (Auto) 0.3 Neut # (Auto) 4.84 Lymph # (Auto) 1.02 L [place] # (Auto) 0.81 Eos # (Auto) 0.06 Baso # (Auto) 0.02 Immature Gran # (Auto) 0.01 Sodium 132 L Potassium 3.7 Chloride 97 L Carbon Dioxide 25 Anion Gap 10 BUN 8 Creatinine 0.69 Est Cr Clr Drug Dosing 116.8 Est GFR ( Amer) 120.4 Est GFR (Non-Af Amer) 103.9 BUN/Creatinine Ratio 11.6 Glucose 222 H Calcium 9.6 Total Bilirubin 1.1 H AST 32 ALT 49 Alkaline Phosphatase 124 H Total Protein 8.1 Albumin 4.6 Globulin 3.5 Albumin/Globulin Ratio 1.3 Lipase 876 H Urine Color Urine Appearance Urine pH Ur Specific [place] Urine Protein Urine Glucose (UA) Urine Ketones Urine Blood Urine Nitrite Urine Bilirubin Urine Urobilinogen Ur Leukocyte Esterase Urine WBC (Auto) Urine RBC (Auto) U Hyaline Cast (Auto) U Epithel Cells (Auto) Urine Bacteria (Auto) Ethyl Alcohol mg/dL < 10.0 04/29/22 07:32 WBC RBC Hgb Hct MCV MCH MCHC RDW Std Deviation RDW Coeff of Miguel Plt Count MPV Immature Gran % (Auto) Neut % (Auto) Lymph % (Auto) [place] % (Auto) Eos % (Auto) Baso % (Auto) Neut # (Auto) Lymph # (Auto) [place] # (Auto) Eos # (Auto) Baso # (Auto) Immature Gran # (Auto) Sodium Potassium Chloride Carbon Dioxide Anion Gap BUN Creatinine Est Cr Clr Drug Dosing Est GFR ( Amer) Est GFR (Non-Af Amer) BUN/Creatinine Ratio Glucose Calcium Total Bilirubin AST ALT Alkaline Phosphatase Total Protein Albumin Globulin Albumin/Globulin Ratio Lipase Urine Color Yellow Urine Appearance Clear Urine pH 5.5 Ur Specific [place] 1.023 Urine Protein 2+ H Urine Glucose (UA) 3+ H Urine Ketones 1+ H Urine Blood Trace H Urine Nitrite Negative Urine Bilirubin Negative Urine Urobilinogen Negative Ur Leukocyte Esterase Negative Urine WBC (Auto) 1-5 Urine RBC (Auto) 0-4 U Hyaline Cast (Auto) 1-5 U Epithel Cells (Auto) 20-30 H Urine Bacteria (Auto) Negative Ethyl Alcohol mg/dL ECG Additional Comments: 26-NOV-2020 15:47:42 [facility]-EDSTAT ROUTINE RETRIEVAL Poor data quality, interpretation may be adversely affected Normal sinus rhythm Prolonged QT When compared with ECG of 16-DEC-2019 12:14, QT has lengthened Reconfirmed by Benedicto Garnett ([id number]) on 11/28/2020 6:15:37 AM 25mm/s10mm/[id number] 241CID: 13Confirmed By: Benedicto Garnett Vent. rate 95 BPM FL interval 160 ms QRS duration 100 ms QT/QTc 404/508 ms Code Status & VTE Plan Code Status Full code - discussed with the patient at bedside Supervising Physician Co-Signing Physician Notes Pt seen and examined by me, care coordinated w/ Saige Jacobo PA-C, pls refer to her note above for further detail. Pt is a 61 yo male with HTN, HLD, alcohol abuse, currently drinking a sixpack of beer per day, pancreatitis, hyponatremia, marijuana use who presents to the hospital with abdominal pain secondary to pancreatitis. Lipase is found to be elevated at 876. CT abd. c/w acute pancreatitis. Patient is currently lying in bed, in no acute distress, somewhat drowsy, reports abdominal pain. He is able to answer questions appropriately. Received IV morphine in ED. Currently also on IV fluids. Abdomen tender to palpation in epigastric region, however soft, with positive bowel sounds. Lungs are clear to auscultation bilaterally, without any wheezing rhonchi or crackles. Heart sounds regular. Patient moves extremities, history of right BKA. BP elevated in the ED. Continue with pain management, IV fluids, n.p.o. Previously on clonidine and Coreg. Restart clonidine. Hydralazine as needed. Schedule gabapentin for pain and to prevent withdrawal symptoms. ativan prn also ordered. Monitor for etoh withdrawal. MD Clayton (1) HLD (hyperlipidemia) Hyperlipidemia type: unspecified Qualified Code(s): E78.5 - Hyperlipidemia, unspecified (2) Nausea & vomiting Vomiting Intractability: non-intractable Vomiting type: unspecified Qualified Code(s): R11.2 - Nausea with vomiting, unspecified (3) HTN (hypertension) Hypertension type: unspecified Qualified Code(s): I10 - Essential (primary) hypertension
--- NOTE | 2022-04-29 10:31 | CT Scan Report ---
CT abd pelvis wo con CLINICAL HISTORY: Eval pancrease TECHNIQUE: Helical axial images of the abdomen and pelvis were obtained. Automated dose lowering tech niques and/or adjustment according to patient size were utilized for this exam. This exam was perfor med without intravenous contrast. CT DOSE: 621.62 mGycm COMPARISON: Comparison is made to CT abdomen pelvis 12/16/2019 FINDINGS: Lower chest: Cardiomegaly is partially visualized. Liver: Unremarkable. No focal lesions are seen. Gallbladder and biliary tree: No calcified gallstones. Normal caliber wall. No intra- or extrahepatic biliary ductal dilation. Pancreas: Pancreatic calcification is seen. There is peripancreatic fluid stranding. No fluid collect ions are seen. Spleen: Unremarkable. Adrenals: Unremarkable. Kidneys and ureters: Unremarkable. Bladder: Unremarkable. Reproductive organs: Prostatomegaly is seen. Bowel: Unremarkable appearance of the bowel. The appendix is normal. Lymph nodes Retroperitoneal: Unremarkable. Pelvic: Unremarkable. Mesenteric: Unremarkable. Peritoneum: Normal. Vessels: Atherosclerotic calcifications are seen. Abdominal wall: Unremarkable. Bones: Degenerative changes in the visualized spine. Cystic changes in the lower vertebral bodies at the level of the endplates are unchanged and likely degenerative. IMPRESSION: There are pancreatic inflammatory changes compatible with acute pancreatitis. No acute peripancreatic fluid collections are seen. The pancreatic duct stones are seen. Pancreatic calcifications are krystal tible with chronic pancreatitis as well. ACT 112: Negative or not required by law. Electronically signed by: Nithin Mckeon M.D. 04/29/2022 10:30 AM
[2022-04-29 12:08] LABS: Estimated Average Glucose 212 mg/dl
[2022-04-29] MEDS ORDERED: ACETAMINOPHEN 325 MG TAB PO PRN (13:17)
[2022-04-29] MEDS ORDERED: LORazepam 1 MG TAB PO PRN (13:17)
[2022-04-29] MEDS ORDERED: cloNIDine HCL 0.1 MG TAB PO ONE (16:10)
[2022-04-29] MEDS: GABAPENTIN 300 MG CAP PO SCH ×2 (17:24→20:58)
[2022-04-29] MEDS ORDERED: ACETAMINOPHEN 1,000 MG/100 ML VIAL IV STA (17:46)
[2022-04-29] MEDS ORDERED: hydrALAZINE HCL 20 MG/ML VIAL IV SCH (18:30)
[2022-04-29] MEDS: cloNIDine HCL 0.1 MG TAB PO SCH (20:58)
[2022-04-29] MEDS: HEPARIN SOD 5,000 UNIT/0.5 ML VIAL SQ SCH (20:58)
[2022-04-29 22:19] LABS: Amphetamines+Metham, Urine Neg (Neg); Barbiturates, Urine Neg (Neg); Benzodiazepine, Urine Neg (Neg); Cocaine, Urine Neg (Neg); MDMA (Ecstacy), Urine Neg (Neg); Methadone, Urine Neg (Neg); Opiate, Urine Pos (Neg); Phencyclidine, Urine Neg (Neg)
[2022-04-29] MEDS ORDERED: hydrALAZINE HCL 20 MG/ML VIAL IV ONE (22:55)
[2022-04-29] MEDS ORDERED: lisinopril 10 MG TAB PO STA (23:05)
[2022-04-30] MEDS: SODIUM CHLORIDE 0.9% 1000ML 1,000 ML IV SCH ×4 (00:18→19:43)
[2022-04-30] MEDS: MoRPHine SULFATE 4 MG/ML 1 ML CARP\\VIAL IV PRN ×7 (00:21→23:27)
[2022-04-30] MEDS: hydrALAZINE HCL 20 MG/ML VIAL IV PRN ×2 (00:41→13:39)
[2022-04-30] MEDS ORDERED: LORazepam 0.5 MG TAB PO STA (01:23)
[2022-04-30 06:36] LABS: Hemoglobin 13.2 g/dl (14.0-18.0); Mean Corpuscular Hemoglobin 30.8 pg (25.0-34.0); Mean Corpuscular Hgb Conc 33.8 g/dL (32.0-36.0); Mean Corpuscular Volume 90.9 fL (80.0-100.0); Mean Platelet Volume 9.7 fL (9.4-12.4); Platelet Count 174 K/uL (130-400); RDW Coefficient of Variation 12.3 % (11.5-14.5); Red Blood Count 4.29 M/uL (4.63-6.08); White Blood Count 6.97 K/ul (4.8-10.8)
[2022-04-30 06:59] LABS: Albumin Level 3.9 gm/dl (3.4-5.0); BUN Creatinine Ratio 9.6 (10-20); Bilirubin Direct 0.2 mg/dl (0-0.2); Calcium 8.9 mg/dl (8.5-10.1); Chol HDL Ratio 2.1 (0-5); Est GFR (African American) 135.3 ml/min; Est GFR (Non-African American) 116.7 ml/min; Magnesium 1.6 mg/dl (1.7-2.4); Phosphorus 3.6 mg/dl (2.5-4.9); Potassium 3.3 mmol/L (3.5-5.1); Total Protein 7.1 gm/dl (6.0-8.3)
[2022-04-30] MEDS ORDERED: MAGNESIUM SULFATE / D5W 1 GM/100 ML BAG IV ONE (07:48)
[2022-04-30] MEDS ORDERED: POTASSIUM CHLORIDE CRTAB 20 MEQ TABCR PO STA (07:49)
[2022-04-30] MEDS: GABAPENTIN 300 MG CAP PO SCH ×3 (08:33→20:00)
[2022-04-30] MEDS: FOLIC ACID 400 MCG TAB PO SCH (08:33)
[2022-04-30] MEDS: cloNIDine HCL 0.1 MG TAB PO SCH ×2 (08:33→20:00)
[2022-04-30] MEDS: THIAMINE HCL 100 MG TAB PO SCH (08:33)
[2022-04-30] MEDS: MULTIVITAMIN TAB PO SCH (08:33)
[2022-04-30] MEDS: HEPARIN SOD 5,000 UNIT/0.5 ML VIAL SQ SCH ×2 (08:34→20:01)
--- NOTE | 2022-04-30 12:59 | Hospitalist Progress Note ---
Date of Service April 30, 2022 Assessment & Plan (1) Acute pancreatitis: Plan: -Admit to [facility] for acute pancreatitis -Lipase downtrending from 800 --> 165 -N/V improving - avoid zofran with prolonged qtc, can use reglan if needed -CT abd/pelvis with pancreatic inflammatory changes compatible with acute pancreatitis. No acute peripancreatic fluid collections are seen. The pancreatic duct stones are seen. Pancreatic calcifications are compatible with chronic pancreatitis as well -Receiving banana bag in the ER, continue with NSS at 150 mL x 2 bags -Analgesics, antiemetics PRN (2) Alcoholism: Plan: -Patient is only taking multivitamin at home, added folic acid and thiamine daily -Monitor for acute alcohol withdrawal, last drink was last evening, typically drinks 6 pack of beer per day. No desire to stop drinking -Scheduled gabapentin and PRN ativan -Checking urine drug screen - positive for THC and opiates -Limit narcotics (3) HTN (hypertension): Plan: -History of such, previous outpatient med rec includes him being on clonidine 0.1 mg BID and carvedilol 3.125 mg BID, but non-compliant with medications. Last time he saw his PCP was over 3 years ago. -Elevated BP, also with potential withdrawal component -started clonidine on admission and PRN hydralazine - will start coreg as BP still not controlled (4) HLD (hyperlipidemia): Plan: Reviewed lipid panel- wnl. DM II Previously diagnosed; non-compliant. A1c this morning of 9. Carb consistent diet. SSI while inpatient. nurses educator consulted (5) Hx of right BKA: Plan: -Status post tib-fib fracture of the right leg with subsequent infection causing needs for amputation in 2013 -Has prosthetic with him, fitting him well, stump appears intact no signs of erythema, edema or in any infection -PT/OT consults for apparent deconditioning (6) Tobacco abuse: Plan: - Smokes 4 to 5 cigarettes/day, patient reports he does not need a nicotine patch, has smoked since age 17 - Denies any respiratory complaints DVT ppx: - teds, scds, heparin subq CODE: Full code Dispo: Admitted to med/surg Admission and Anticipated Discharge Date Admission Date: April 29, 2022 Supervising Physician Co-Signing Physician Notes Pt seen and examined by me, care coordinated w/ Karen Taylor PA-C, pls refer to her note above for further detail. Pt is a 61 yo male with HTN, HLD, alcohol abuse, currently drinking a sixpack of beer per day, pancreatitis, hyponatremia, marijuana use who presented to the hospital with abdominal pain secondary to pancreatitis. Lipase found to be elevated at [address] abd[address] c/w acute pancreatitis. Patient is currently lying in bed, in no acute distress,much more comfortable today, and asking for water/ will advance to liquid diet. Abdomen mildly tender to palpation in epigastric region, however soft, with positive bowel sounds. Lungs are clear to auscultation bilaterally, without any wheezing rhonchi or crackles. Heart sounds regular. Patient moves extremities, history of right BKA. BP elevated Started pt on clonidine and prn hydralazine. On morphine for pain, and gabapentine for poss. withdrawal symptoms. Previously on clonidine and Coreg. Will add Coreg now and discussed with the pt the importance of following up with outpt physician to monitor/ treat BP. MD Clayton Subjective Seen and examined in 382-2. Feeling better this morning after antiemetics. Abdominal pain 2/10 at rest. Has been sleeping intermittently but awakens and answers questions appropriately. Denies any new issues overnight. No fever, chills, headache, CP, SOB, N/V, dysuria, diarrhea or constipation. Review of Systems Review of Systems: At least ten systems reviewed and negative except as noted in the HPI. Physical Exam Physical Exam: Gen: WD/WN, NAD, lying in bed sleeping intermittently, answers questions appropriately, A&Ox3 HEENT: Normocephalic, atraumatic, conjunctivae moist, sclerae anicteric, mucous membranes moist Lung: Clear to Auscultation bilaterally, no wheezes/rales/rhonchi Heart: Regular rate, regular rhythm, no murmurs, rubs, or gallops Abdomen: Soft, TTP RLQ and LLQ but no guarding, ND, +BS x 4 Extremities: no edema Skin: Warm, no rash Results & Data Results & Data ([facility]) Vital Signs (Past 12 Hours) Vital Signs Temp Pulse Resp BP BP Pulse Ox O2 Del Method 04/30/22 09:34 180/95 H 04/30/22 07:35 36.7 C 68 16 194/91 H 190/88 H 98 Room Air 04/30/22 04:34 36.8 C 65 16 175/99 H 98 Room Air 04/30/22 01:09 188/96 H Laboratory Results Short CBC 04/30/22 Range/Units 06:10 WBC 6.97 (4.8-10.8) K/ul Hgb 13.2 L (14.0-18.0) g/dl Hct 39.0 L (40.1-51.0) % Plt Count 174 (130-400) K/uL BMP 04/30/22 06:10 Sodium 133 L Potassium 3.3 L Chloride 99 Carbon Dioxide 22 BUN 5 L Creatinine 0.52 L Glucose 129 H Calcium 8.9 Liver Function 04/30/22 Range/Units 06:10 Total Bilirubin 1.0 (0.2-1.0) mg/dl Direct Bilirubin 0.2 (0-0.2) mg/dl AST 16 (13-39) U/L ALT 32 (7-52) U/L Alkaline Phosphatase 98 (34-104) U/L Albumin 3.9 (3.4-5.0) gm/dl Diagnostic Findings Abdomen/Pelvis CT 04/29/22 09:50 CT abd pelvis wo con CLINICAL HISTORY: Eval pancrease TECHNIQUE: Helical axial images of the abdomen and pelvis were obtained. Automated dose lowering techniques and/or adjustment according to patient size were utilized for this exam. This exam was performed without intravenous contrast. CT DOSE: 621.62 mGycm COMPARISON: Comparison is made to CT abdomen pelvis 12/16/2019 FINDINGS: Lower chest: Cardiomegaly is partially visualized. Liver: Unremarkable. No focal lesions are seen. Gallbladder and biliary tree: No calcified gallstones. Normal caliber wall. No intra- or extrahepatic biliary ductal dilation. Pancreas: Pancreatic calcification is seen. There is peripancreatic fluid stranding. No fluid collections are seen. Spleen: Unremarkable. Adrenals: Unremarkable. Kidneys and ureters: Unremarkable. Bladder: Unremarkable. Reproductive organs: Prostatomegaly is seen. Bowel: Unremarkable appearance of the bowel. The appendix is normal. Lymph nodes Retroperitoneal: Unremarkable. Pelvic: Unremarkable. Mesenteric: Unremarkable. Peritoneum: Normal. Vessels: Atherosclerotic calcifications are seen. Abdominal wall: Unremarkable. Bones: Degenerative changes in the visualized spine. Cystic changes in the lower vertebral bodies at the level of the endplates are unchanged and likely degenerative. IMPRESSION: There are pancreatic inflammatory changes compatible with acute pancreatitis. No acute peripancreatic fluid collections are seen. The pancreatic duct stones are seen. Pancreatic calcifications are compatible with chronic pancreatitis as well. ACT 112: Negative or not required by law. Electronically signed by: Nithin Mckeon M.D. 04/29/2022 10:30 AM (1) HLD (hyperlipidemia) Hyperlipidemia type: unspecified Qualified Code(s): E78.5 - Hyperlipidemia, unspecified (2) HTN (hypertension) Hypertension type: unspecified Qualified Code(s): I10 - Essential (primary) hypertension
[2022-04-30] MEDS: carvediloL 3.125 MG TAB PO SCH ×2 (14:28→20:00)
[2022-04-30] MEDS: ACETAMINOPHEN 500 MG TAB PO SCH ×2 (14:28→21:40)
[2022-04-30] MEDS ORDERED: GLUCAGON FOR INJ 1 MG VIAL SQ PRN (16:26)
[2022-04-30] MEDS ORDERED: DEXTROSE 50% 50 ML SYRINGE IV PRN (16:26)
[2022-04-30] MEDS ORDERED: GLUCOSE 10 TAB/TUBE PO PRN (16:26)
[2022-04-30] MEDS ORDERED: CARBOHYDRATES FOR HYPOGLYCEMIA PO PRN (16:26)
[2022-04-30] MEDS ORDERED: GLUCOSE 40% GEL 15 GM TUBE PO PRN (16:26)
[2022-04-30] MEDS: INSULIN ASPART PER UNIT SC SCH ×2 (18:12→21:07)
[2022-04-30] MEDS: MAGNESIUM OXIDE 400 MG TAB PO SCH (18:13)
[2022-05-01] MEDS: SODIUM CHLORIDE 0.9% 1000ML 1,000 ML IV SCH ×4 (02:13→21:20)
[2022-05-01] MEDS: MoRPHine SULFATE 4 MG/ML 1 ML CARP\\VIAL IV PRN ×3 (02:32→08:36)
[2022-05-01] MEDS: ACETAMINOPHEN 500 MG TAB PO SCH ×3 (05:36→21:15)
[2022-05-01 07:11] LABS: Hematocrit (blood only) 33.4 % (40.1-51.0); Hemoglobin 11.4 g/dl (14.0-18.0); Mean Corpuscular Hemoglobin 31.2 pg (25.0-34.0); Mean Corpuscular Hgb Conc 34.1 g/dL (32.0-36.0); Mean Corpuscular Volume 91.5 fL (80.0-100.0); Mean Platelet Volume 9.9 fL (9.4-12.4); Platelet Count 169 K/uL (130-400); RDW Coefficient of Variation 12.3 % (11.5-14.5); RDW Standard Deviation 41.3 fL (36.4-46.3); Red Blood Count 3.65 M/uL (4.63-6.08); White Blood Count 5.75 K/ul (4.8-10.8)
[2022-05-01 07:32] LABS: BUN Creatinine Ratio 6.8 (10-20); Calcium 8.7 mg/dl (8.5-10.1); Est GFR (African American) 128.4 ml/min; Est GFR (Non-African American) 110.8 ml/min; Magnesium 1.6 mg/dl (1.7-2.4); Phosphorus 3.3 mg/dl (2.5-4.9); Potassium 3.6 mmol/L (3.5-5.1)
[2022-05-01] MEDS ORDERED: POTASSIUM CHLORIDE CRTAB 20 MEQ TABCR PO STA (08:23)
--- NOTE | 2022-05-01 08:27 | Hospitalist Progress Note ---
Date of Service May 01, 2022 Assessment & Plan (1) Acute pancreatitis: Plan: -Admit to [facility] for acute pancreatitis -Lipase downtrending from 800 --> 165 -N/V improving - avoid zofran with prolonged qtc, can use reglan if needed -CT abd/pelvis with pancreatic inflammatory changes compatible with acute pancreatitis. No acute peripancreatic fluid collections are seen. The pancreatic duct stones are seen. Pancreatic calcifications are compatible with chronic pancreatitis as well -Receiving banana bag in the ER, continue with NSS at 150 mL x 2 bags -Analgesics, antiemetics PRN (2) Alcoholism: Plan: -Patient is only taking multivitamin at home, added folic acid and thiamine daily -Monitor for acute alcohol withdrawal, last drink was last evening, typically drinks 6 pack of beer per day. No desire to stop drinking -Scheduled gabapentin and PRN ativan -Checking urine drug screen - positive for THC and opiates -Limit narcotics (3) HTN (hypertension): Plan: -History of such, previous outpatient med rec includes him being on clonidine 0.1 mg BID and carvedilol 3.125 mg BID, but non-compliant with medications. Last time he saw his PCP was over 3 years ago. -Elevated BP, also with potential withdrawal component -started clonidine on admission and PRN hydralazine -as BP was still elevated, started coreg -cont. to closely monitor (4) HLD (hyperlipidemia): Plan: Reviewed lipid panel- wnl. DM II Previously diagnosed; non-compliant. Current A1c 9%. Carb consistent diet. SSI while inpatient. family life educator consulted (5) Hx of right BKA: Plan: -Status post tib-fib fracture of the right leg with subsequent infection causing needs for amputation in 2013 -Has prosthetic with him, fitting him well, stump appears intact no signs of er ythema, edema or in any infection -PT/OT consults for apparent deconditioning (6) Tobacco abuse: Plan: - Smokes 4 to 5 cigarettes/day, patient reports he does not need a nicotine patch, has smoked since age 17 - Denies any respiratory complaints DVT ppx: - teds, scds, heparin subq CODE: Full code Dispo: Admitted to med/surg Admission and Anticipated Discharge Date Admission Date: April 29, 2022 Subjective Pt seen in follow up of acute alcoholic pancreatitis Currently sitting up bed, in no acute distress. Reports that he tolerates clear liquid diet well and that his pain is much improved, however he is still asking for morphine [id number]. Denies any fever, chills, headache, CP, SOB, N/V, dysuria, diarrhea or constipation. Reports having BM this AM. Review of Systems Review of Systems: All systems reviewed & are unremarkable except as noted in Subjective Physical Exam Physical Exam: Gen: WD/WN, NAD, answers questions appropriately, A&Ox3 HEENT: Normocephalic, atraumatic, conjunctivae moist, sclerae anicteric, mucous membranes moist Lung: Clear to Auscultation bilaterally, no wheezes/rales/rhonchi Heart: Regular rate, regular rhythm, no murmurs, rubs, or gallops Abdomen: Soft, mild TTP RLQ and LLQ (improved) but no guarding, ND, +BS x 4 Extremities: no edema Skin: Warm, no rash Results & Data Results & Data ([facility]) Vital Signs (Past 12 Hours) Vital Signs Temp Pulse Resp BP Pulse Ox O2 Del Method 05/01/22 07:25 Room Air 05/01/22 07:11 36.7 C 66 16 163/84 H 96 Room Air 05/01/22 05:41 37.2 C 62 16 161/93 H 97 Room Air 04/30/22 23:22 37.2 C 76 18 160/85 H 97 Room Air Laboratory Results 05/01/22 05/01/22 05/01/22 Range/Units 08:17 06:42 06:42 WBC 5.75 (4.8-10.8) K/ul RBC 3.65 L (4.63-6.08) M/uL Hgb 11.4 L (14.0-18.0) g/dl Hct 33.4 L (40.1-51.0) % MCV 91.5 (80.0-100.0) fL MCH 31.2 (25.0-34.0) pg MCHC 34.1 (32.0-36.0) g/dL RDW Std Deviation 41.3 (36.4-46.3) fL RDW Coeff of Miguel 12.3 (11.5-14.5) % Plt Count 169 (130-400) K/uL MPV 9.9 (9.4-12.4) fL Sodium 132 L (136-145) mmol/L Potassium 3.6 (3.5-5.1) mmol/L Chloride 102 (98-107) mmol/L Carbon Dioxide 22 (21-32) mmol/L Anion Gap 8 (3-11) BUN 4 L (6-23) mg/dl Creatinine 0.59 L (0.6-1.4) mg/dl Est Cr Clr Drug Dosing 126.0 ml/min Est GFR ( Amer) 128.4 ml/min Est GFR (Non-Af Amer) 110.8 ml/min BUN/Creatinine Ratio 6.8 L (10-20) Glucose 134 H (70-99(Fasting)) mg/dl POC Glucose 139 H (70-99) mg/dl Calcium 8.7 (8.5-10.1) mg/dl Phosphorus 3.3 (2.5-4.9) mg/dl Magnesium 1.6 L (1.7-2.4) mg/dl 04/30/22 04/30/22 Range/Units 20:31 17:03 WBC (4.8-10.8) K/ul RBC (4.63-6.08) M/uL Hgb (14.0-18.0) g/dl Hct (40.1-51.0) % MCV (80.0-100.0) fL MCH (25.0-34.0) pg MCHC (32.0-36.0) g/dL RDW Std Deviation (36.4-46.3) fL RDW Coeff of Miguel (11.5-14.5) % Plt Count (130-400) K/uL MPV (9.4-12.4) fL Sodium (136-145) mmol/L Potassium (3.5-5.1) mmol/L Chloride (98-107) mmol/L Carbon Dioxide (21-32) mmol/L Anion Gap (3-11) BUN (6-23) mg/dl Creatinine (0.6-1.4) mg/dl Est Cr Clr Drug Dosing ml/min Est GFR ( Amer) ml/min Est GFR (Non-Af Amer) ml/min BUN/Creatinine Ratio (10-20) Glucose (70-99(Fasting)) mg/dl POC Glucose 157 H 139 H (70-99) mg/dl Calcium (8.5-10.1) mg/dl Phosphorus (2.5-4.9) mg/dl Magnesium (1.7-2.4) mg/dl Medications Administered Current Inpatient Medications Acetaminophen (Acetaminophen 500 Mg Tab) 1,000 mg PO Q8H RONEY Stop: 05/30/22 13:59 Last Admin: 05/01/22 05:36 Dose: 1,000 mg Carvedilol (Carvedilol 3.125 Mg Tab) 3.125 mg PO BID RONEY Stop: 05/30/22 13:14 Last Admin: 04/30/22 20:00 Dose: 3.125 mg Clonidine HCl (Clonidine Hcl 0.1 Mg Tab) 0.1 mg PO BID RONEY Stop: 05/29/22 20:59 Last Admin: 04/30/22 20:00 Dose: 0.1 mg Dextrose (Dextrose 50% 50 Ml Syringe) 25 - 50 ml IV UD PRN; Protocol PRN Reason: Hypoglycemia Protocol Stop: 05/30/22 16:25 Folic Acid (Folic Acid 400 Mcg Tab) 400 mcg PO QAM RONEY Stop: 05/30/22 08:59 Last Admin: 04/30/22 08:33 Dose: 400 mcg Gabapentin (Gabapentin 300 Mg Cap) 300 mg PO TID RONEY Stop: 05/29/22 16:09 Last Admin: 04/30/22 20:00 Dose: 300 mg Glucagon (Glucagon For Inj 1 Mg Vial) 1 mg SQ UD PRN; Protocol PRN Reason: Hypoglycemia Protocol Stop: 05/30/22 16:25 Glucose (Glucose 40% Gel 15 Gm Tube) 15 - 30 gm PO UD PRN; Protocol PRN Reason: Hypoglycemia Protocol Stop: 05/30/22 16:25 Glucose (Glucose 10 Tab/Tube) 4 - 8 tab PO UD PRN; Protocol PRN Reason: Hypoglycemia Treatment Stop: 05/30/22 16:25 Heparin Sodium (Porcine) (Heparin Sod 5,000 Unit/0.5 Ml Vial) 5,000 units SQ Q12 RONEY Stop: 05/29/22 20:59 Last Admin: 04/30/22 20:01 Dose: 5,000 units Hydralazine HCl (Hydralazine Hcl 20 Mg/Ml Vial) 5 mg IV Q6H PRN PRN Reason: Hypertension Stop: 05/29/22 22:54 Last Admin: 04/30/22 13:39 Dose: 5 mg Sodium Chloride (Nss 1000ml) 1,000 mls @ 150 mls/hr IV .Q6H40M [facility] Stop: 05/30/22 04:44 Last Admin: 05/01/22 02:13 Dose: 150 mls/hr Magnesium Sulfate/Dextrose (Magnesium Sulfate / D5w) 1 gm in 100 mls @ 50 mls/hr IV ONE ONE Stop: 05/01/22 10:23 Insulin Aspart (Insulin Aspart Per Unit) 0 units SC ACHS [facility] Stop: 05/30/22 16:29 Last Admin: 04/30/22 21:07 Dose: Not Given Lorazepam (Lorazepam 1 Mg Tab) 1 mg PO ONE PRN; Protocol PRN Reason: EtoH Withdrawal AWSS 6,7,8,9,10 Magnesium Oxide (Magnesium Oxide 400 Mg Tab) 400 [facility] [place] Stop: 05/30/22 15:44 Last Admin: 04/30/22 18:13 Dose: 400 mg Miscellaneous (Carbohydrates For Hypoglycemia ) 15 - 30 gm PO UD PRN PRN Reason: Hypoglycemia Protocol Stop: 05/30/22 16:25 Morphine Sulfate (Morphine Sulfate 4 Mg/Ml 1 Ml Carp\Vial) 3 mg IV Q3H PRN PRN Reason: Pain Stop: 05/13/22 17:43 Last Admin: 05/01/22 05:36 Dose: 3 mg Multivitamins (Multivitamin Tab) 1 tab [facility]ACARL [facility] [place] Stop: 05/30/22 08:59 Last Admin: 04/30/22 08:33 Dose: 1 tab Potassium Chloride (Potassium Chloride Crtab 20 Meq Tabcr) 40 meq PO NOW STA Stop: 05/01/22 08:24 Thiamine HCl (Thiamine Hcl 100 Mg Tab) 100 mg PO [facility]ACARL [facility] [place] Stop: 05/30/22 08:59 Last Admin: 04/30/22 08:33 Dose: 100 mg (1) HLD (hyperlipidemia) Hyperlipidemia type: unspecified Qualified Code(s): E78.5 - Hyperlipidemia, unspecified (2) HTN (hypertension) Hypertension type: unspecified Qualified Code(s): I10 - Essential (primary) hypertension
[2022-05-01] MEDS ORDERED: MAGNESIUM SULFATE / D5W 1 GM/100 ML BAG IV ONE (08:39)
[2022-05-01] MEDS: FOLIC ACID 400 MCG TAB PO SCH (08:43)
[2022-05-01] MEDS: MAGNESIUM OXIDE 400 MG TAB PO SCH (08:43)
[2022-05-01] MEDS: carvediloL 3.125 MG TAB PO SCH ×2 (08:43→20:23)
[2022-05-01] MEDS: HEPARIN SOD 5,000 UNIT/0.5 ML VIAL SQ SCH ×2 (08:43→20:18)
[2022-05-01] MEDS: GABAPENTIN 300 MG CAP PO SCH ×3 (08:44→20:18)
[2022-05-01] MEDS: MULTIVITAMIN TAB PO SCH (08:44)
[2022-05-01] MEDS: cloNIDine HCL 0.1 MG TAB PO SCH ×2 (08:44→20:22)
[2022-05-01] MEDS: THIAMINE HCL 100 MG TAB PO SCH (08:44)
[2022-05-01] MEDS: INSULIN ASPART PER UNIT SC SCH ×4 (09:10→20:30)
[2022-05-01] MEDS: MoRPHine SULFATE 2 MG/ML CARP IV PRN ×3 (11:57→21:19)
[2022-05-02] MEDS: MoRPHine SULFATE 2 MG/ML CARP IV PRN ×6 (01:18→23:50)
[2022-05-02 03:36] LABS: Codeine Urine NEGATIVE ng/mL (<50); Hydrocodone Urine NEGATIVE ng/mL (<50); Hydromor Urine NEGATIVE ng/mL (<50); Marijuana Quant, GCMS Urine 173 ng/mL (<5); Morphine Urine 3790 ng/mL (<50); Norhydrocodone Conf Ur NEGATIVE ng/mL (<50); Noroxycodone Urine NEGATIVE ng/mL (<50); Oxycodone Urine NEGATIVE ng/mL (<50); Oxymorph Urine NEGATIVE ng/mL (<50)
[2022-05-02] MEDS: SODIUM CHLORIDE 0.9% 1000ML 1,000 ML IV SCH ×4 (03:43→23:51)
[2022-05-02] MEDS: ACETAMINOPHEN 500 MG TAB PO SCH ×3 (05:33→21:30)
[2022-05-02 06:36] LABS: Hematocrit (blood only) 33.8 % (40.1-51.0); Hemoglobin 11.4 g/dl (14.0-18.0); Mean Corpuscular Hemoglobin 30.8 pg (25.0-34.0); Mean Corpuscular Hgb Conc 33.7 g/dL (32.0-36.0); Mean Corpuscular Volume 91.4 fL (80.0-100.0); Mean Platelet Volume 9.8 fL (9.4-12.4); Platelet Count 172 K/uL (130-400); RDW Coefficient of Variation 12.2 % (11.5-14.5); RDW Standard Deviation 40.7 fL (36.4-46.3); White Blood Count 4.14 K/ul (4.8-10.8)
[2022-05-02 07:17] LABS: BUN Creatinine Ratio 7.7 (10-20); Calcium 8.7 mg/dl (8.5-10.1); Est GFR (African American) 135.3 ml/min; Est GFR (Non-African American) 116.7 ml/min; Magnesium 1.7 mg/dl (1.7-2.4); Phosphorus 3.2 mg/dl (2.5-4.9); Potassium 3.8 mmol/L (3.5-5.1)
[2022-05-02] MEDS: MAGNESIUM OXIDE 400 MG TAB PO SCH (08:10)
[2022-05-02] MEDS: HEPARIN SOD 5,000 UNIT/0.5 ML VIAL SQ SCH ×2 (08:10→19:54)
[2022-05-02] MEDS: carvediloL 3.125 MG TAB PO SCH ×2 (08:10→19:51)
[2022-05-02] MEDS: GABAPENTIN 300 MG CAP PO SCH ×3 (08:10→19:51)
[2022-05-02] MEDS: cloNIDine HCL 0.1 MG TAB PO SCH ×2 (08:11→19:51)
[2022-05-02] MEDS: MULTIVITAMIN TAB PO SCH (08:11)
[2022-05-02] MEDS: THIAMINE HCL 100 MG TAB PO SCH (08:11)
[2022-05-02] MEDS: FOLIC ACID 400 MCG TAB PO SCH (08:11)
--- NOTE | 2022-05-02 08:39 | Hospitalist Progress Note ---
Date of Service May 02, 2022 Assessment & Plan (1) Acute pancreatitis: Plan: -Admit to [facility] for acute pancreatitis -Lipase downtrending from 800 --> 165 -CT abd/pelvis with pancreatic inflammatory changes compatible with acute pancreatitis. No acute peripancreatic fluid collections are seen. The pancreatic duct stones are seen. Pancreatic calcifications are compatible with chronic pancreatitis as well -Received banana bag in the ER, continue with NSS IVF -Analgesics, antiemetics PRN - tolerating clear liquid diet, advance to full liquid (low fat) (2) Alcoholism: Plan: -Patient is only taking multivitamin at home, added folic acid and thiamine daily -Monitor for acute alcohol withdrawal, last drink was last evening, typically drinks 6 pack of beer per day. No desire to stop drinking -Scheduled gabapentin and PRN ativan -Checking urine drug screen - positive for THC and opiates -Limit narcotics (3) HTN (hypertension): Plan: -History of such, previous outpatient med rec includes him being on clonidine 0.1 mg BID and carvedilol 3.125 mg BID, but non-compliant with medications. Last time he saw his PCP was over 3 years ago. -Elevated BP, also with potential withdrawal component -started clonidine on admission and PRN hydralazine -as BP was still elevated, started coreg -cont. to closely monitor (4) HLD (hyperlipidemia): Plan: Reviewed lipid panel- wnl. DM II Previously diagnosed; non-compliant. Current A1c 9%. Carb consistent diet. SSI while inpatient. health promotion educator consulted (5) Hx of right BKA: Plan: -Status post tib-fib fracture of the right leg with subsequent infection causing needs for amputation in 2013 -Has prosthetic with him, fitting him well, stump appears intact no signs of erythema, edema or in any infection -PT/OT consults for apparent deconditioning (6) Tobacco abuse: Plan: - Smokes 4 to 5 cigarettes/day, patient reports he does not need a nicotine patch, has smoked since age 17 - Denies any respiratory complaints DVT ppx: - teds, scds, heparin subq CODE: Full code Dispo: Admitted to med/surg Admission and Anticipated Discharge Date Admission Date: April 29, 2022 Subjective Pt seen in follow up of acute alcoholic pancreatitis Currently laying in bed, in no acute distress. Reports that he tolerates clear liquid diet well and that his pain is much improved. Denies any fever, chills, headache, CP, SOB, N/V, dysuria, diarrhea or constipation. Reports having BM this AM. Plan to advance diet Review of Systems Review of Systems: All systems reviewed & are unremarkable except as noted in Subjective Physical Exam Physical Exam: Gen: WD/WN, NAD, answers questions appropriately, A&Ox3 HEENT: Normocephalic, atraumatic, conjunctivae moist, sclerae anicteric, mucous membranes moist Lung: Clear to Auscultation bilaterally, no wheezes/rales/rhonchi Heart: Regular rate, regular rhythm, no murmurs, rubs, or gallops Abdomen: Soft, mild TTP RLQ and LLQ (improved) but no guarding, ND, +BS x 4 Extremities: no edema Skin: Warm, no rash Results & Data Results & Data ([facility]) Vital Signs (Past 12 Hours) Vital Signs Temp Pulse Resp BP Pulse Ox O2 Del Method 05/02/22 08:10 Room Air 05/02/22 07:09 36.8 C 66 16 155/84 H 99 Room Air 05/01/22 21:12 36.5 C 69 17 158/86 H 98 Room Air Laboratory Results 05/02/22 05/02/22 05/02/22 Range/Units 08:17 05:55 05:55 WBC 4.14 L (4.8-10.8) K/ul RBC 3.70 L (4.63-6.08) M/uL Hgb 11.4 L (14.0-18.0) g/dl Hct 33.8 L (40.1-51.0) % MCV 91.4 (80.0-100.0) fL MCH 30.8 (25.0-34.0) pg MCHC 33.7 (32.0-36.0) g/dL RDW Std Deviation 40.7 (36.4-46.3) fL RDW Coeff of Miguel 12.2 (11.5-14.5) % Plt Count 172 (130-400) K/uL MPV 9.8 (9.4-12.4) fL Sodium 130 L (136-145) mmol/L Potassium 3.8 (3.5-5.1) mmol/L Chloride 101 (98-107) mmol/L Carbon Dioxide 24 (21-32) mmol/L Anion Gap 5 (3-11) BUN 4 L (6-23) mg/dl Creatinine 0.52 L (0.6-1.4) mg/dl Est Cr Clr Drug Dosing 143.0 ml/min Est GFR ( Amer) 135.3 ml/min Est GFR (Non-Af Amer) 116.7 ml/min BUN/Creatinine Ratio 7.7 L (10-20) Glucose 123 H (70-99(Fasting)) mg/dl POC Glucose 122 H (70-99) mg/dl Calcium 8.7 (8.5-10.1) mg/dl Phosphorus 3.2 (2.5-4.9) mg/dl Magnesium 1.7 (1.7-2.4) mg/dl U Codeine Confrm GC/MS (<50) ng/mL Ur Morphine (GC/MS) (<50) ng/mL Ur Hydrocodone (GC/MS) (<50) ng/mL Ur Norhydrocodone (<50) ng/mL Ur Noroxycodone (<50) ng/mL Urine Oxycodone (GC/MS) (<50) ng/mL U Oxymorphone GC/MS (<50) ng/mL Ur Hydromorphone (GC/MS) (<50) ng/mL U Marijuana THC Carboxy (<5) ng/mL Drug Screen Comment 05/01/22 05/01/22 05/01/22 Range/Units 20:19 17:12 12:10 WBC (4.8-10.8) K/ul RBC (4.63-6.08) M/uL Hgb (14.0-18.0) g/dl Hct (40.1-51.0) % MCV (80.0-100.0) fL MCH (25.0-34.0) pg MCHC (32.0-36.0) g/dL RDW Std Deviation (36.4-46.3) fL RDW Coeff of Miguel (11.5-14.5) % Plt Count (130-400) K/uL MPV (9.4-12.4) fL Sodium (136-145) mmol/L Potassium (3.5-5.1) mmol/L Chloride (98-107) mmol/L Carbon Dioxide (21-32) mmol/L Anion Gap (3-11) BUN (6-23) mg/dl Creatinine (0.6-1.4) mg/dl Est Cr Clr Drug Dosing ml/min Est GFR ( Amer) ml/min Est GFR (Non-Af Amer) ml/min BUN/Creatinine Ratio (10-20) Glucose (70-99(Fasting)) mg/dl POC Glucose 231 H 71 131 H (70-99) mg/dl Calcium (8.5-10.1) mg/dl Phosphorus (2.5-4.9) mg/dl Magnesium (1.7-2.4) mg/dl U Codeine Confrm GC/MS (<50) ng/mL Ur Morphine (GC/MS) (<50) ng/mL Ur Hydrocodone (GC/MS) (<50) ng/mL Ur Norhydrocodone (<50) ng/mL Ur Noroxycodone (<50) ng/mL Urine Oxycodone (GC/MS) (<50) ng/mL U Oxymorphone GC/MS (<50) ng/mL Ur Hydromorphone (GC/MS) (<50) ng/mL U Marijuana THC Carboxy (<5) ng/mL Drug Screen Comment 04/29/22 Range/Units 21:00 WBC (4.8-10.8) K/ul RBC (4.63-6.08) M/uL Hgb (14.0-18.0) g/dl Hct (40.1-51.0) % MCV (80.0-100.0) fL MCH (25.0-34.0) pg MCHC (32.0-36.0) g/dL RDW Std Deviation (36.4-46.3) fL RDW Coeff of Miguel (11.5-14.5) % Plt Count (130-400) K/uL MPV (9.4-12.4) fL Sodium (136-145) mmol/L Potassium (3.5-5.1) mmol/L Chloride (98-107) mmol/L Carbon Dioxide (21-32) mmol/L Anion Gap (3-11) BUN (6-23) mg/dl Creatinine (0.6-1.4) mg/dl Est Cr Clr Drug Dosing ml/min Est GFR ( Amer) ml/min Est GFR (Non-Af Amer) ml/min BUN/Creatinine Ratio (10-20) Glucose (70-99(Fasting)) mg/dl POC Glucose (70-99) mg/dl Calcium (8.5-10.1) mg/dl Phosphorus (2.5-4.9) mg/dl Magnesium (1.7-2.4) mg/dl U Codeine Confrm GC/MS NEGATIVE (<50) ng/mL Ur Morphine (GC/MS) 3790 H (<50) ng/mL Ur Hydrocodone (GC/MS) NEGATIVE (<50) ng/mL Ur Norhydrocodone NEGATIVE (<50) ng/mL Ur Noroxycodone NEGATIVE (<50) ng/mL Urine Oxycodone (GC/MS) NEGATIVE (<50) ng/mL U Oxymorphone GC/MS NEGATIVE (<50) ng/mL Ur Hydromorphone (GC/MS) NEGATIVE (<50) ng/mL U Marijuana THC Carboxy 173 H (<5) ng/mL Drug Screen Comment SEE NOTE Medications Administered Current Inpatient Medications Acetaminophen (Acetaminophen 500 Mg Tab) 1,000 mg PO Q8H [facility] Stop: 05/30/22 13:59 Last Admin: 05/02/22 05:33 Dose: 1,000 mg Carvedilol (Carvedilol 3.125 Mg Tab) 3.125 mg PO BID [facility]ONEY Stop: 05/30/22 13:14 Last Admin: 05/02/22 08:10 Dose: 3.125 mg Clonidine HCl (Clonidine Hcl 0.1 Mg Tab) 0.1 mg PO BID RONEY Stop: 05/29/22 20:59 Last Admin: 05/02/22 08:11 Dose: 0.1 mg Dextrose (Dextrose 50% 50 Ml Syringe) 25 - 50 ml IV UD PRN; Protocol PRN Reason: Hypoglycemia Protocol Stop: 05/30/22 16:25 Folic Acid (Folic Acid 400 Mcg Tab) 400 mcg PO QAM RONEY Stop: 05/30/22 08:59 Last Admin: 05/02/22 08:11 Dose: 400 mcg Gabapentin (Gabapentin 300 Mg Cap) 300 mg PO TID RONEY Stop: 05/29/22 16:09 Last Admin: 05/02/22 08:10 Dose: 300 mg Glucagon (Glucagon For Inj 1 Mg Vial) 1 mg SQ UD PRN; Protocol PRN Reason: Hypoglycemia Protocol Stop: 05/30/22 16:25 Glucose (Glucose 40% Gel 15 Gm Tube) 15 - 30 gm PO UD PRN; Protocol PRN Reason: Hypoglycemia Protocol Stop: 05/30/22 16:25 Glucose (Glucose 10 Tab/Tube) 4 - 8 tab PO UD PRN; Protocol PRN Reason: Hypoglycemia Treatment Stop: 05/30/22 16:25 Heparin Sodium (Porcine) (Heparin Sod 5,000 Unit/0.5 Ml Vial) 5,000 units SQ Q12 RONE[facility] Stop: 05/29/22 20:59 Last Admin: 05/02/22 08:10 Dose: 5,000 units Hydralazine HCl (Hydralazine Hcl 20 Mg/Ml Vial) 5 mg IV Q6H PRN PRN Reason: Hypertension Stop: 05/29/22 22:54 Last Admin: 04/30/22 13:39 Dose: 5 mg Sodium Chloride (Nss 1000ml) 1,000 mls @ 150 mls/hr IV .Q6H40M [facility] Stop: 05/30/22 04:44 Last Admin: 05/02/22 03:43 Dose: 150 mls/hr Magnesium Sulfate/Dextrose (Magnesium Sulfate / D5w) 1 gm in 100 mls @ 50 mls/hr IV ONE ONE Stop: 05/02/22 10:35 Insulin Aspart (Insulin Aspart Per Unit) 0 units SC ACHS [facility] Stop: 05/30/22 16:29 Last Admin: 05/01/22 20:30 Dose: 3 units Lorazepam (Lorazepam 1 Mg Tab) 1 mg PO ONE PRN; Protocol PRN Reason: EtoH Withdrawal AWSS 6,7,8,9,10 Magnesium Oxide (Magnesium Oxide 400 Mg Tab) 400 mg PO QAM RONE[facility] Stop: 05/30/22 15:44 Last Admin: 05/02/22 08:10 Dose: 400 mg Miscellaneous (Carbohydrates For Hypoglycemia ) 15 - 30 gm PO UD PRN PRN Reason: Hypoglycemia Protocol Stop: 05/30/22 16:25 Morphine Sulfate (Morphine Sulfate 2 Mg/Ml Carp) 2 mg IV Q4H PRN PRN Reason: Pain Stop: 05/15/22 11:51 Last Admin: 05/02/22 05:35 Dose: 2 mg Multivitamins (Multivitamin Tab) 1 tab PO QAM [facility] Stop: 05/30/22 08:59 Last Admin: 05/02/22 08:11 Dose: 1 tab Thiamine HCl (Thiamine Hcl 100 Mg Tab) [facility] Stop: 05/30/22 08:59 Last Admin: 05/02/22 08:11 Dose: 100 mg (1) HLD (hyperlipidemia) Hyperlipidemia type: unspecified Qualified Code(s): E78.5 - Hyperlipidemia, unspecified (2) HTN (hypertension) Hypertension type: unspecified Qualified Code(s): I10 - Essential (primary) hypertension
[2022-05-02] MEDS: INSULIN ASPART PER UNIT SC SCH ×4 (08:54→21:29)
[2022-05-02] MEDS: MAGNESIUM SULFATE / D5W 1 GM/100 ML BAG IV ONE ×2 (09:30→09:32)
[2022-05-03] MEDS: MoRPHine SULFATE 2 MG/ML CARP IV PRN ×2 (04:04→08:14)
[2022-05-03] MEDS: ACETAMINOPHEN 500 MG TAB PO SCH ×2 (05:41→14:14)
[2022-05-03] MEDS: SODIUM CHLORIDE 0.9% 1000ML 1,000 ML IV SCH ×2 (05:41→13:10)
[2022-05-03 08:07] LABS: BUN Creatinine Ratio 5.3 (10-20); Calcium 8.5 mg/dl (8.5-10.1); Creatinine Clr Calc Pharmacy 130.5 ml/min; Est GFR (African American) 130.3 ml/min; Est GFR (Non-African American) 112.4 ml/min; Magnesium 1.4 mg/dl (1.7-2.4); Phosphorus 3.2 mg/dl (2.5-4.9); Potassium 3.5 mmol/L (3.5-5.1)
[2022-05-03] MEDS ORDERED: POTASSIUM CHLORIDE CRTAB 20 MEQ TABCR PO STA (08:12)
[2022-05-03] MEDS: FOLIC ACID 400 MCG TAB PO SCH (08:14)
[2022-05-03] MEDS: carvediloL 3.125 MG TAB PO SCH (08:14)
[2022-05-03] MEDS: HEPARIN SOD 5,000 UNIT/0.5 ML VIAL SQ SCH (08:14)
[2022-05-03] MEDS: GABAPENTIN 300 MG CAP PO SCH ×2 (08:14→14:14)
[2022-05-03] MEDS: THIAMINE HCL 100 MG TAB PO SCH (08:14)
[2022-05-03] MEDS: MAGNESIUM OXIDE 400 MG TAB PO SCH (08:14)
[2022-05-03] MEDS: MULTIVITAMIN TAB PO SCH (08:14)
[2022-05-03] MEDS: cloNIDine HCL 0.1 MG TAB PO SCH (08:15)
[2022-05-03] MEDS ORDERED: PROPOFOL IV EMULSION 10 MG/ML 20 ML VIAL IV ONE (09:01)
[2022-05-03] MEDS ORDERED: LIDOCAINE 2% MPF LOCAL 5 ML VIAL INFIL ONE (09:01)
[2022-05-03] MEDS: INSULIN ASPART PER UNIT SC SCH ×2 (09:12→12:50)
[2022-05-03] MEDS: MAGNESIUM SULFATE / D5W 1 GM/100 ML BAG IV SCH ×2 (09:17→11:13)
--- NOTE | 2022-05-03 09:37 | Hospitalist Progress Note ---
Date of Service May 03, 2022 Assessment & Plan (1) Acute pancreatitis: Plan: -Admit to [facility] for acute pancreatitis -Lipase downtrending from 800 --> 165 -CT abd/pelvis with pancreatic inflammatory changes compatible with acute pancreatitis. No acute peripancreatic fluid collections are seen. The pancreatic duct stones are seen. Pancreatic calcifications are compatible with chronic pancreatitis as well -Received banana bag in the ER, continue with NSS IVF -Analgesics, antiemetics PRN -Tolerating full liquid (low fat) diet and asking to advance diet (2) Alcoholism: Plan: -Patient is only taking multivitamin at home, added folic acid and thiamine daily -Monitor for acute alcohol withdrawal, last drink was last evening, typically drinks 6 pack of beer per day. No desire to stop drinking -Scheduled gabapentin and PRN ativan -Checking urine drug screen - positive for THC and opiates -Limit narcotics (3) HTN (hypertension): Plan: -History of such, previous outpatient med rec includes him being on clonidine 0.1 mg BID and carvedilol 3.125 mg BID, but non-compliant with medications. Last time he saw his PCP was over 3 years ago. -Elevated BP, also with potential withdrawal component -started clonidine on admission and PRN hydralazine -as BP was still elevated, started coreg -cont. to closely monitor (4) HLD (hyperlipidemia): Plan: Reviewed lipid panel- wnl. DM II Previously diagnosed; non-compliant. Current A1c 9%. Carb consistent diet. SSI while inpatient. overhead irrigator consulted Outpt follow up needed (5) Hx of right BKA: Plan: -Status post tib-fib fracture of the right leg with subsequent infection causing needs for amputation in 2013 -Has prosthetic with him, fitting him well, stump appears intact no signs of erythema, edema or in any infection -PT/OT consults for apparent deconditioning (6) Tobacco abuse: Plan: - Smokes 4 to 5 cigarettes/day, patient reports he does not need a nicotine patch, has smoked since age 17 - Denies any respiratory complaints DVT ppx: - teds, scds, heparin subq CODE: Full code Dispo: Admitted to med/surg Admission and Anticipated Discharge Date Admission Date: April 29, 2022 Subjective Pt seen in follow up of acute alcoholic pancreatitis Currently sitting up at the edge of the bed, finished breakfast and tolerated well - full liquid diet. Reports abdomen feels "alright", and he would really like to have "real" food. Denies any fever, chills, headache, CP, SOB, N/V, dysuria, diarrhea or constipation. Reports having BM this AM. Plan to advance diet, and possible DC later today Review of Systems Review of Systems: All systems reviewed & are unremarkable except as noted in Subjective Physical Exam Physical Exam: Gen: WD/WN, NAD, answers questions appropriately, A&Ox3 HEENT: Normocephalic, atraumatic, conjunctivae moist, sclerae anicteric, mucous membranes moist Lung: Clear to Auscultation bilaterally, no wheezes/rales/rhonchi Heart: Regular rate, regular rhythm, no murmurs, rubs, or gallops Abdomen: Soft, minimal TTP RLQ and LLQ (much improved) but no guarding, ND, +BS x 4 Extremities: no edema Skin: Warm, no rash Results & Data Results & Data ([facility]) Vital Signs (Past 12 Hours) Vital Signs Temp Pulse Resp BP Pulse Ox O2 Del Method 05/03/22 08:48 37.3 C 73 18 177/91 H 98 Room Air 05/02/22 23:56 166/99 H Laboratory Results 05/03/22 05/03/22 05/02/22 Range/Units 08:17 06:57 20:41 Sodium 133 L (136-145) mmol/L Potassium 3.5 (3.5-5.1) mmol/L Chloride 104 (98-107) mmol/L Carbon Dioxide 20 L (21-32) mmol/L Anion Gap 9 (3-11) BUN 3 L (6-23) mg/dl Creatinine 0.57 L (0.6-1.4) mg/dl Est Cr Clr Drug Dosing 130.5 ml/min Est GFR ( Amer) 130.3 ml/min Est GFR (Non-Af Amer) 112.4 ml/min BUN/Creatinine Ratio 5.3 L (10-20) Glucose 127 H (70-99(Fasting)) mg/dl POC Glucose 128 H 188 H (70-99) mg/dl Calcium 8.5 (8.5-10.1) mg/dl Phosphorus 3.2 (2.5-4.9) mg/dl Magnesium 1.4 L (1.7-2.4) mg/dl 05/02/22 05/02/22 Range/Units 17:10 12:06 Sodium (136-145) mmol/L Potassium (3.5-5.1) mmol/L Chloride (98-107) mmol/L Carbon Dioxide (21-32) mmol/L Anion Gap (3-11) BUN (6-23) mg/dl Creatinine (0.6-1.4) mg/dl Est Cr Clr Drug Dosing ml/min Est GFR ( Amer) ml/min Est GFR (Non-Af Amer) ml/min BUN/Creatinine Ratio (10-20) Glucose (70-99(Fasting)) mg/dl POC Glucose 73 126 H (70-99) mg/dl Calcium (8.5-10.1) mg/dl Phosphorus (2.5-4.9) mg/dl Magnesium (1.7-2.4) mg/dl Medications Administered Current Inpatient Medications Acetaminophen (Acetaminophen 500 Mg Tab) 1,000 mg PO Q8H RONEY Stop: 05/30/22 13:59 Last Admin: 05/03/22 05:41 Dose: 1,000 mg Carvedilol (Carvedilol 3.125 Mg Tab) 3.125 mg PO BID RONEY Stop: 05/30/22 13:14 Last Admin: 05/03/22 08:14 Dose: 3.125 mg Clonidine HCl (Clonidine Hcl 0.1 Mg Tab) 0.1 mg PO BID RONEY Stop: 05/29/22 20:59 Last Admin: 05/03/22 08:15 Dose: 0.1 mg Dextrose (Dextrose 50% 50 Ml Syringe) 25 - 50 ml IV UD PRN; Protocol PRN Reason: Hypoglycemia Protocol Stop: 05/30/22 16:25 Folic Acid (Folic Acid 400 Mcg Tab) 400 mcg PO QAM RONEY Stop: 05/30/22 08:59 Last Admin: 05/03/22 08:14 Dose: 400 mcg Gabapentin (Gabapentin 300 Mg Cap) 300 mg PO TID RONEY Stop: 05/29/22 16:09 Last Admin: 05/03/22 08:14 Dose: 300 mg Glucagon (Glucagon For Inj 1 Mg Vial) 1 mg SQ UD PRN; Protocol PRN Reason: Hypoglycemia Protocol Stop: 05/30/22 16:25 Glucose (Glucose 40% Gel 15 Gm Tube) 15 - 30 gm PO UD PRN; Protocol PRN Reason: Hypoglycemia Protocol Stop: 05/30/22 16:25 Glucose (Glucose 10 Tab/Tube) 4 - 8 tab PO UD PRN; Protocol PRN Reason: Hypoglycemia Treatment Stop: 05/30/22 16:25 Heparin Sodium (Porcine) (Heparin Sod 5,000 Unit/0.5 Ml Vial) 5,000 units SQ Q12 RONEY Stop: 05/29/22 20:59 Last Admin: 05/03/22 08:14 Dose: 5,000 units Hydralazine HCl (Hydralazine Hcl 20 Mg/Ml Vial) 5 mg IV Q6H PRN PRN Reason: Hypertension Stop: 05/29/22 22:54 Last Admin: 04/30/22 13:39 Dose: 5 mg Sodium Chloride (Nss 1000ml) 1,000 mls @ 150 mls/hr IV .Q6H40M RONEY Stop: 05/30/22 04:44 Last Admin: 05/03/22 05:41 Dose: 150 mls/hr Magnesium Sulfate/Dextrose (Magnesium Sulfate / D5w) 1 gm in 100 mls @ 50 mls/hr IV Q2H RONEY Stop: 05/03/22 12:14 Last Admin: 05/03/22 09:17 Dose: 50 mls/hr Insulin Aspart (Insulin Aspart Per Unit) 0 units SC ACHS RONEY Stop: 05/30/22 16:29 Last Admin: 05/03/22 09:12 Dose: 5 units Lorazepam (Lorazepam 1 Mg Tab) 1 mg PO ONE PRN; Protocol PRN Reason: EtoH Withdrawal AWSS 6,7,8,9,10 Magnesium Oxide (Magnesium Oxide 400 Mg Tab) 400 mg PO QAM RONEY Stop: 05/30/22 15:44 Last Admin: 05/03/22 08:14 Dose: 400 mg Miscellaneous (Carbohydrates For Hypoglycemia ) 15 - 30 gm PO UD PRN PRN Reason: Hypoglycemia Protocol Stop: 05/30/22 16:25 Morphine Sulfate (Morphine Sulfate 2 Mg/Ml Carp) 2 mg IV Q6H PRN PRN Reason: Pain Stop: 05/15/22 14:13 Multivitamins (Multivitamin Tab) 1 tab PO QAM RONEY Stop: 05/30/22 08:59 Last Admin: 05/03/22 08:14 Dose: 1 tab Thiamine HCl (Thiamine Hcl 100 Mg Tab) 100 mg PO QAM [facility] Stop: 05/30/22 08:59 Last Admin: 05/03/22 08:14 Dose: 100 mg (1) HTN (hypertension) Hypertension type: unspecified Qualified Code(s): I10 - Essential (primary) hypertension (2) HLD (hyperlipidemia) Hyperlipidemia type: unspecified Qualified Code(s): E78.5 - Hyperlipidemia, unspecified
[2022-05-03] MEDS ORDERED: MoRPHine SULFATE 2 MG/ML CARP IV PRN (14:14)
--- NOTE | 2022-05-03 15:11 | Discharge Summary ---
Date of Service May 03, 2022 Admission HPI Per Admitting Provider This is a 61-year-old male with PMHx of HTN, HLD, alcohol abuse, currently drinking a sixpack of beer per day, pancreatitis, hyponatremia, marijuana use who presents to the hospital with 1 day of abdominal pain. He denies any nausea or vomiting. Admits to drinking alcohol 6 beers per day and has been doing this for a very long time. He has had pancreatitis on 2 other occasions where he required being treated in an ER/hospital. He used to drink more alcohol including liquor but no longer does. He has no desire to quit drinking alcohol presently. He denies any illicit drug use currently. Admits to smoking cigarettes 4 to 5/day, but states he does not need a nicotine patch as he can "quit when I want to". He lives by himself at home, and spends majority of his day sitting in a recliner. He does not work. Has 2 brothers who come visit him about every other month and has some local friends who are his support system. He has not spoken to his mother in over 30 years. 2 of his siblings are , 1 of them due to pancreatic cancer. Lipase is found to be elevated at 876. No abdominal imaging was obtained in the ER. Glucose is elevated at 222 and reports that he last ate yesterday. Admission Exam Per Admitting Provider General: awake, alert, no apparent distress, male Head: Normocephalic, atraumatic ENT: PERRL, EOMI, no pharyngeal exudate, mucous membranes moist Chest: Clear to auscultation, on room air, no adventitious breath sounds Cardiac: Regular rate and rhythm, no murmur, no JVD, normal peripheral pulses, good capillary refill Abdominal: NABS x 4 quadrants, soft, nondistended, + epigastric tenderness with palpation, no radiation, no rebound or guarding Extremities: + Right TKA with well healed stump, no skin breakdown from prosthetic, otherwise Normal inspection, no peripheral edema or erythema, calfs nontender to palpation Psych: Flat/depressed mood and affect Neuro: AAO x 3, strength intact bilaterally and rated 5/5, no motor deficits, speech is clear, no peripheral sensory deficits Principal Diagnosis Alcoholic pancreatitis alcohol abuse uncontrolled hypertension uncontrolled DM type 2 Discharge Exam Gen: WD/WN, NAD, answers questions appropriately, A&Ox3 HEENT: Normocephalic, atraumatic, conjunctivae moist, sclerae anicteric, mucous membranes moist Lung: Clear to Auscultation bilaterally, no wheezes/rales/rhonchi Heart: Regular rate, regular rhythm, no murmurs, rubs, or gallops Abdomen: Soft, minimal TTP RLQ and LLQ (much improved) but no guarding, ND, +BS x 4 Extremities: no edema Skin: Warm, no rash Discharge Data Allergies Allergy/AdvReac Type Severity Reaction Status Date / Time No Known Allergies Allergy Verified 11/26/20 17:29 Consultations 04/29/22 09:05 ED Decision to Admit Stat Ordered Studies 04/29/22 09:50 CT Abd and Pelvis [CT abd pelvis wo con] Stat FINDINGS: Lower chest: Cardiomegaly is partially visualized. Liver: Unremarkable. No focal lesions are seen. Gallbladder and biliary tree: No calcified gallstones. Normal caliber wall. No intra- or extrahepatic biliary ductal dilation. Pancreas: Pancreatic calcification is seen. There is peripancreatic fluid stranding. No fluid collections are seen. Spleen: Unremarkable. Adrenals: Unremarkable. Kidneys and ureters: Unremarkable. Bladder: Unremarkable. Reproductive organs: Prostatomegaly is seen. Bowel: Unremarkable appearance of the bowel. The appendix is normal. Lymph nodes Retroperitoneal: Unremarkable. Pelvic: Unremarkable. Mesenteric: Unremarkable. Peritoneum: Normal. Vessels: Atherosclerotic calcifications are seen. Abdominal wall: Unremarkable. Bones: Degenerative changes in the visualized spine. Cystic changes in the lower vertebral bodies at the level of the endplates are unchanged and likely degenerative. IMPRESSION: There are pancreatic inflammatory changes compatible with acute pancreatitis. No acute peripancreatic fluid collections are seen. The pancreatic duct stones are seen. Pancreatic calcifications are compatible with chronic pancreatitis as well. Diabetes Follow up Diabetes Follow-up Needed for Newly Diagnosed Diabetes Hospital Course (1) Acute pancreatitis: -Admit to [facility] for acute pancreatitis -Lipase downtrending from 800 --> 165 -CT abd/pelvis with pancreatic inflammatory changes compatible with acute pancreatitis. No acute peripancreatic fluid collections are seen. The pancreatic duct stones are seen. Pancreatic calcifications are compatible with chronic pancreatitis as well -Received banana bag in the ER, continue with NSS IVF -Analgesics, antiemetics PRN -Tolerating low fat diet (2) Alcoholism: -Patient is only taking multivitamin at home, added folic acid and thiamine daily -Monitor for acute alcohol withdrawal, last drink was last evening, typically drinks 6 pack of beer per day. -Scheduled gabapentin and PRN ativan - no signs of withdrawal (3) HTN (hypertension): -History of such, previous outpatient med rec includes him being on clonidine 0.1 mg BID and carvedilol 3.125 mg BID, but non-compliant with medications. Last time he saw his PCP was over 3 years ago. -Elevated BP, also with potential withdrawal component -started clonidine on admission and PRN hydralazine -as BP was still elevated, started coreg -cont. to closely monitor - will discharge on clonidine and coreg (4) HLD (hyperlipidemia): Reviewed lipid panel- wnl. DM II Previously diagnosed; non-compliant. Current A1c 9%. Carb consistent diet. SSI while inpatient. furnace combustion tester consulted Outpt follow up needed (5) Hx of right BKA: -Status post tib-fib fracture of the right leg with subsequent infection causing needs for amputation in 2013 -Has prosthetic with him, fitting him well, stump appears intact no signs of erythema, edema or in any infection -PT/OT consults for apparent deconditioning (6) Tobacco abuse: - Smokes 4 to 5 cigarettes/day, patient reports he does not need a nicotine patch, has smoked since age 17 - Denies any respiratory complaints Total Time Total Time Spent Total Time Spent (In Minutes): 40 Discharge Plan Discharge Items Patient Disposition: Home - Self-Care Reason For Visit: PANCREATITIS Discharge Diagnosis: Alcoholic pancreatitis alcohol abuse uncontrolled hypertension uncontrolled DM type 2 Activity: Per Instructions section Non-emergency contact: Primary Care Provider Call non-emergency contact if: you have any medication questions and your symptoms worsen Follow-up/Referrals: Liyah Oseguera MD [Primary Care Provider] - (Date & Time 05/10/2022 11:00 AM Provider Liyah Oseguera MD Department General Internal Medicine [facility] ) Diet: Carb Consistent or DM2 and Low Fat Addtl Attending Provider Instructions: Follow up with your primary care doctor. The appointment was scheduled for you for May 10. Your blood pressure was elevated while n the hospital and you were restarted on medications you used to take in the past. You need to monitor your blood presure and follow up with your primary care doctor closely. Take clonidine and carvedilol as prescribed. It is also strongly recommended that you abstain from alcohol. Continue taking thiamin, folic acid and multivitamin. You also met with our rehabilitation program coordinator, as your diabetes is not controlled. Check your blood sugars, as directed, daily. Keep a record of your numbers. Discuss with your primary care doctor how you can properly manage your diabetes. Pending Studies at Discharge: No Stand-Alone Forms: My [facility], Smoking Cessation Medications and DC Order Prescriptions: New carvedilol 3.125 mg Tablet 3.125 mg PO BID 30 Days Qty: 60 0RF clonidine HCl 0.1 mg Tablet 0.1 mg PO BID 30 Days Qty: 60 0RF magnesium oxide 400 mg (241.3 mg magnesium) Tablet 400 mg PO QAM 14 Days Qty: 14 0RF folic acid 400 mcg Tablet 400 mcg PO QAM 30 Days Qty: 30 0RF thiamine HCl (vitamin B1) 100 mg Tablet 100 mg PO QAM 30 Days Qty: 30 0RF (DME) blood-glucose meter [OneTouch Verio Meter] [facility] [place] See Rx Instructions .Route Qty: 1 0RF Rx Instructions: As directed (DME) OneTouch Verio test strips Strip See Rx Instructions .Route Qty: 50 0RF Rx Instructions: As directed (DME) lancets [OneTouch Delica Lancets] 33 gauge misc See Rx Instructions .Route Qty: 100 0RF Rx Instructions: As directed Continued multivitamin [Daily-Elise] Tablet 1 tab PO QAM Qty: 30 0RF Discharge Orders: Discharge Order (Routine); Ordered 05/03/22 Ordered By: Dwight Tucker/Other Patient Handouts: Diabetes: Meal Planning, Type 2 Diabetes Admission Data Admit Date/Time: 04/29/22 09:50 Attending Provider: Dwight Arnold Admit Provider: Dwight Arnold Primary Care Provider: Liyah Oseguera Other Providers: Dwight Arnold ; Angelita Taylor
== END 2022-05-03 16:39 | disposition home or self-care (01) | DRG 439 ==
LOC: ED 07:16 → EDINP 09:50 → 3N 16:51

== ENCOUNTER 2022-09-21 23:40 | Inpatient (IN) ==
[2022-09-22 01:07] LABS: Basophils # (auto) 0.02 K/uL (0-0.2); Basophils % (auto) 0.6 %; Eosinophils # (auto) 0.07 K/uL (0-0.50); Hematocrit (blood only) 35.4 % (42.0-52.0); Hemoglobin 12.5 g/dl (14.0-18.0); Immature Granulocytes # (auto) 0.01 K/uL (0.01-0.20); Immature Granulocytes % (auto) 0.3 %; Lymphocytes # (auto) 1.61 K/uL (1.2-3.4); Lymphocytes % (auto) 45.6 %; Mean Corpuscular Hemoglobin 30.8 pg (25.0-34.0); Mean Corpuscular Hgb Conc 35.3 g/dL (32.0-36.0); Mean Corpuscular Volume 87.2 fL (80.0-100.0); Mean Platelet Volume 9.9 fL (9.4-12.4); Monocytes # (auto) 0.54 K/uL (0.11-0.59); Monocytes % (auto) 15.3 %; Neutrophils # (auto) 1.28 K/uL (1.40-6.50); Neutrophils % (auto) 36.2 %; Nucleated RBC # (auto) 0.04 K/uL (0-0.12); Nucleated RBC % (auto) 1.1 %; Platelet Count 148 K/uL (130-400); RDW Coefficient of Variation 11.8 % (11.5-14.5); RDW Standard Deviation 37.8 fL (36.4-46.3); Red Blood Count 4.06 M/uL (4.70-6.10); White Blood Count 3.53 K/ul (4.8-10.8)
[2022-09-22 01:17] LABS: Alanine Aminotransferase 52 U/L (7-52); Albumin Globulin Ratio 1.3 (0.9-2); Albumin Level 4.6 gm/dl (3.4-5.0); Alkaline Phosphatase 103 U/L (34-104); Anion Gap 18 (3-11); Aspartate Aminotransferase 80 U/L (13-39); Bilirubin,Total 1.2 mg/dl (0.2-1.0); Blood Urea Nitrogen 10 mg/dl (6-23); Calcium 8.9 mg/dl (8.6-10.3); Carbon Dioxide 23 mmol/L (21-32); Chloride 85 mmol/L (98-107); Est GFR (African American) 83.2 ml/min; Est GFR (Non-African American) 71.8 ml/min; Globulin 3.5 gm/dl (2.5-4.0); Glucose 138 mg/dl (70-99(Fasting)); Lipase 11 U/L (11-82); Magnesium 2.2 mg/dl (1.7-2.4); Potassium 3.4 mmol/L (3.5-5.1); Sodium 126 mmol/L (136-145); Total Protein 8.1 gm/dl (6.0-8.3)
[2022-09-22 01:23] LABS: Troponin I High Sensitivity 8.5 pg/ml (0-20)
--- NOTE | 2022-09-22 02:16 | CT Scan Report ---
Exam(s): CT HEAD Without Contrast EXAM: CT Head Without Intravenous Contrast CLINICAL HISTORY: Reason for exam: fall. TECHNIQUE: Axial computed tomography images of the head/brain without intravenous contrast. CTDI is 37.55 mGy and DLP is 614.27 mGy-cm. Automated exposure control was utilized for the study. A dose lowering technique was utilized adhering to the principles of ALARA. COMPARISON: CT head 11/26/20 FINDINGS: Brain: Generalized parenchymal volume loss. Patchy cerebral white matter hypodensities consistent with chronic small vessel ischemic disease. Chronic lacunar infarcts bilateral basal ganglia, bilateral internal capsules, and left thalamus. Ivan-white matter differentiation maintained. No acute intracranial hemorrhage, mass-effect, or edema. Ventricles: Unremarkable. No hydrocephalus. Bones/joints: Unremarkable. No skull fracture. Soft tissues: Mild parieto-occipital scalp swelling. Sinuses: Unremarkable as visualized. No acute sinusitis. Mastoid air cells: Unremarkable as visualized. No mastoid effusion. IMPRESSION: Mild parieto-occipital scalp swelling. No evidence of acute intracranial process. Electronically signed by: Tracy Graves M.D. 09/22/22 02:15 AM
--- NOTE | 2022-09-22 02:18 | CT Scan Report ---
Exam(s): CT LEFT HIP Without Contrast EXAM: CT Left Lower Extremity Without Intravenous Contrast, Hip CLINICAL HISTORY: Reason for exam: fx on xray. TECHNIQUE: Axial computed tomography images of the left hip without intravenous contrast. Automated exposure control was utilized for the study. A dose lowering technique was utilized adhering to the principles of ALARA. COMPARISON: No relevant prior studies available. FINDINGS: Bones are osteopenic. There is mild-moderate osteoarthritis of the left hip joint. There is no dislocation. There is an acute nondisplaced intertrochanteric fracture of the left femur. Mild surrounding soft tissue swelling is noted. IMPRESSION: Acute nondisplaced intertrochanteric fracture of the left femur. Electronically signed by: Tracy Graves M.D. 09/22/22 02:17 AM
[2022-09-22] MEDS ORDERED: MoRPHine SULFATE 2 MG/ML CARP IV STA (04:01)
[2022-09-22] MEDS ORDERED: DEXTROSE 50% 50 ML SYRINGE IV PRN (04:19)
[2022-09-22] MEDS ORDERED: LORazepam 2 MG/1 ML VIAL IV PRN ×3 (04:19)
[2022-09-22] MEDS ORDERED: NITROGLYCERIN SL 0.4 MG/TAB TAB SL PRN (04:19)
[2022-09-22] MEDS ORDERED: GLUCAGON FOR INJ 1 MG VIAL SQ PRN (04:19)
[2022-09-22] MEDS ORDERED: Ativan IV Alcohol Withdrawal--Active Protocol IV PRN (04:19)
[2022-09-22] MEDS ORDERED: GLUCOSE 40% GEL 15 GM TUBE PO PRN (04:19)
[2022-09-22] MEDS ORDERED: GLUCOSE 10 TAB/TUBE PO PRN (04:19)
[2022-09-22] MEDS ORDERED: GABAPENTIN 1200MG ALCOHOL WITHDRAWAL LOAD PO STA (04:19)
[2022-09-22] MEDS ORDERED: CARBOHYDRATES FOR HYPOGLYCEMIA PO PRN (04:19)
[2022-09-22] MEDS ORDERED: POTASSIUM CHLORIDE CRTAB 20 MEQ TABCR PO STA (04:19)
[2022-09-22] MEDS ORDERED: cloNIDine HCL 0.1 MG TAB PO PRN (04:19)
[2022-09-22] MEDS ORDERED: ONDANSETRON INJ 2 MG/ML 2 ML VIAL IV PRN (04:19)
[2022-09-22] MEDS ORDERED: ACETAMINOPHEN 325 MG TAB PO PRN (04:19)
[2022-09-22] MEDS ORDERED: GABAPENTIN 600 MG TAB PO ONE (04:30)
[2022-09-22] MEDS ORDERED: CEROVITE ADV FORMULA TAB PO ONE (04:30)
[2022-09-22] MEDS ORDERED: THIAMINE HCL 100 MG, FOLIC ACID 1 MG in SODIUM CHLORIDE 0.9% 1000ML 1,000 ML IV SCH (04:45)
--- NOTE | 2022-09-22 06:23 | History and Physical Report ---
DATE OF ADMISSION: 09/22/2022. CHIEF COMPLAINT: Status post fall and left hip fracture, history of alcohol intoxication. HISTORY OF PRESENT ILLNESS: This is a 62-year-old male with past medical history significant for hypertension, hyperlipidemia, alcohol abuse, history of recurrent pancreatitis, hypokalemia, hyponatremia, who presents with fall and left hip fracture. The patient is drinking 6 beers daily and half bottle of vodka daily. It looks like he drank whole day and went to [facility] when he slipped and fell on his left side and he was brought in here and he was found to have left hip fracture. Currently, alert and oriented, hemodynamically stable and asking for pain medication. He has alcohol level of 317. The patient denies any chest pain, no shortness of breath, no cough, no fevers, no nausea, no abdominal pain, no headache, no blurred visions, no sore throat. Normal bowel and bladder movements. Has pain in the hip region. The patient says he ambulates with a cane and he can ambulate two blocks. Lives alone. He says that he takes 3 or 4 medications, but does not remember what he is taking and name of any of those medications are. ALLERGIES: No known drug allergies. PAST MEDICAL HISTORY: As mentioned above. PAST SURGICAL HISTORY: Right below-knee amputation. MEDICATIONS: As per the [facility], as per last discharge in April 2022, he is supposed to be on Coreg 3.125 mg p.o. b.i.d., clonidine 0.1 mg p.o. b.i.d., magnesium 400 mg p.o. a.m., folic acid 400 mcg p.o. a.m., thiamine 100 mg p.o. daily, multivitamin 1 daily. As per the [facility], he is also supposed to be on metformin and Jardiance. FAMILY HISTORY: Significant for brother had pancreatic cancer. SOCIAL HISTORY: Smokes half pack a day for 40 years. Drinks alcohol, half bottle of vodka and 6 beers daily. History of cocaine, but seems not doing currently smoking marijuana once in a while. REVIEW OF SYSTEMS: As per HPI. Rest of the review of systems is negative. PHYSICAL EXAMINATION: GENERAL: The patient is of moderate build, not in acute distress. VITAL SIGNS: Temperature 36.9, pulse 88, respiratory rate 16, blood pressure 118/88, oxygen 94% on room air. HEENT: Pupils equal, round and reactive to light. Oral mucosa, no dentition, moist. NECK: No JVD, no neck masses. CARDIOVASCULAR: S1 and S2 heard. Regular rate and rhythm. No murmur, no gallop. RESPIRATORY SYSTEM: Normal AP diameter. No accessory muscle use. No wheezing, no crackles. ABDOMEN: Soft, bowel sounds present, nontender, no distention. CENTRAL NERVOUS SYSTEM: Alert and oriented. Speech is clear. No facial droop. Obeys simple commands, moving extremities. EXTREMITIES: Right lower extremity below knee amputation. Left lower extremity is slightly shortened and externally rotated. No edema or erythema seen. LABORATORY DATA: WBC 3.5, hemoglobin 12.5, hematocrit 35.4, platelets 148. Sodium 126, potassium 3.4, chloride 85, CO2 of 23, BUN 10, creatinine 1.1, serum glucose 138, calcium 8.9, magnesium 2.2, total bilirubin 1.2, AST 80, ALT 52, alkaline phosphatase 103. Troponin I high sensitivity 8.5. Lipase 11. Ethyl alcohol 317. SARS-CoV-2 rapid test negative. IMAGING DATA: Left hip CT without contrast shows acute nondisplaced intertrochanteric fracture of the left femur. CT of the head without contrast, no acute findings, mild bilateral occipital scalp swelling. EKG: Sinus rhythm with first-degree AV block at a rate of 88, prolonged QTc at 493. ASSESSMENT AND PLAN: This 62-year-old male presents with alcoholism and fall noted and found to have left hip fracture. 1. Left hip fracture: Pain control, n.p.o., IV gentle fluids. Consult orthopedics. The patient's labs are okay and the patient is able to ambulate for a couple of blocks as per the patient. He is currently alert and oriented.Hemodynamically stable. The patient is of acceptable risk to proceed with surgery. 2. Alcoholism: Will monitor withdrawal. Will place on gabapentin withdrawal protocol, IV Ativan p.r.n. Banana bag, IV thiamine, IV folic acid, and multivitamins. Closely monitor for withdrawal symptoms. 3. Hyponatremia: Most likely beer potomania. Will follow urine osmolality, urine sodium, and serum osmolality. Getting fluids. Will follow the repeat labs. BMP q. 6 hours. Consult nephrology in the a.m. 4. Hypokalemia: Potassium of 3.4, will replace. 5. History of hypertension: The patient does not know what medications he is taking. Supposed to be on Coreg and clonidine. Will place on Coreg and will place on clonidine p.r.n. Monitor the blood pressure, and adjust the medications. Needs follow up with PCP. 6. History of diabetes: Seems to be not on any medications .As per [facility] he is on jardiance and metformin. Placed on insulin sliding scale. Follow HbA1c level as well as blood sugars. 7. History of right below the knee amputation: He is status post tibia-fibula fracture of the right leg with subsequent infection and amputation in 2013. PT, OT when stable. 8. Tobacco abuse: Needs counseling. 9. Deep venous thrombosis prophylaxis: Could not place sequential compression devices because of the fracture and no anticoagulation as plan for procedure. Further anticoagulation as per orthopedics. DISPOSITION: Closely monitor in the med tele. PT/OT prior to discharge. Social service to help with discharge planning. Level 1 full code. Job ID: [id number] [facility]
[2022-09-22] MEDS: INSULIN ASPART PER UNIT CHARGE SC SCH ×4 (06:27→23:27)
--- NOTE | 2022-09-22 07:02 | Emergency Department Note ---
History of Present Illness General Chief complaint: Alcohol Intoxication Time Seen by Provider: 09/22/22 00:20 History of Present Illness Maximum Pain Intensity: 5 This is a 62-year-old male presenting to the emergency department for evaluation of injuries after drinking alcohol and falling. The patient arrives via EMS and much history is provided from EMS. Patient evidently began drinking yesterday around 6 AM, ran out of alcohol around 11 PM. Patient smoked marijuana, and after running out of alcohol walked to [facility] to buy more. Patient was witnessed by police to be stumbling and ultimately fell outside and struck his head. Patient was immediately attended to on scene and EMS was contacted. Patient has an extensive past medical history including diabetes, right below th e knee amputation, chronic alcoholism, cocaine abuse, and marijuana use. The patient is report left-sided hip pain after his fall. He rates his overall discomfort a 6/10. He does not endorse any chest pain, chest tightness, or shortness of breath. Home Medications Medication Instructions Recorded Confirmed Type blood sugar diagnostic (OneTouch #50 ea 05/03/22 Rx Verio test strips) blood-glucose meter (OneTouch #1 ea 05/03/22 Rx Verio Meter) lancets 33 gauge (OneTouch Delica #100 ea 05/03/22 Rx Lancets) multivitamin 1 tab PO DAILY 09/22/22 09/22/22 History Allergies Allergy/AdvReac Type Severity Reaction Status Date / Time No Known Allergies Allergy Verified 09/22/22 01:49 Past Med/Surg History Medical History Alcohol dependence a fifth of liquor and 12 beers daily for yrs. Depression Diabetes mellitus type 2 in nonobese GERD (gastroesophageal reflux disease) HLD (hyperlipidemia) HTN (hypertension) Hx of hematuria Hx of pancreatitis Obesity Pancreatitis, recurrent Phantom pain after amputation of lower extremity Tobacco abuse Surgical History Complete below knee amputation of right lower extremity History of mandibular surgery BROKEN JAW 1978 History of tooth extraction ALL TEETH REMOVED Hx of right BKA 2013 s/p fracture of tibia/fibula with associated infection Family History Sister Family history of diabetes mellitus Brother Pancreatic carcinoma Social History Smoking Status: Current every day smoker Tobacco Type: Cigarettes and E-cigarettes / Vaping Cigarettes Per Day: 10; Second Hand Exposure: No; Hx Alcohol Use: Yes Alcohol type: beer and hard liquor Alcohol Intake Frequency : 4 or More x per/Week Alcohol Intake Frequency Comment: 6 pack of beer + daily Hx Substance Use: No Preferred Language: Cambodian Communication Ability: Effective Cloth Folder Machine Required: No Beliefs That Will Affect Care: None marital status: Single Current Living Situation: Alone Current Living Situation Comment: lives with roomate Feels Safe at Home: Yes Assistive Devices: Cane and Prosthesis Review of Systems A total of 10 systems reviewed and were otherwise negative Physical Exam Vital Signs Vital Signs - 24 hr 09/21/22 23:52 09/21/22 23:52 09/22/22 00:34 Temperature 36.9 C Temperature Source Oral Pulse Rate 81 83 Pulse Rate [Finger] Pulse Rhythm [Finger] Pulse Strength [Finger] Respiratory Rate 18 Respiratory Effort / Characteristics Respiratory Depth Respiratory Pattern Blood Pressure 145/100 H Blood Pressure [Right Arm] Blood Pressure Mean 115 Blood Pressure Mean [Right Arm] Blood Pressure Position [Right Arm] Pulse Oximetry 93 95 Oxygen Delivery Method Room Air Room Air Sepsis Recent Fever Within 48 Hours No Sepsis New/Unexplained Change in Mental Status No Sepsis Action Taken by Nursing No Action Required 09/22/22 02:30 09/22/22 03:30 09/22/22 03:51 Temperature Temperature Source Pulse Rate 88 Pulse Rate [Finger] 91 H 88 Pulse Rhythm [Finger] Regular Pulse Strength [Finger] Normal Respiratory Rate 18 16 Respiratory Effort / Characteristics Non-Labored Spontaneous Respiratory Depth Normal Respiratory Pattern Regular Blood Pressure Blood Pressure [Right Arm] 117/86 118/88 Blood Pressure Mean Blood Pressure Mean [Right Arm] 96 98 Blood Pressure Position [Right Arm] Lying Pulse Oximetry 97 94 Oxygen Delivery Method Room Air Room Air Sepsis Recent Fever Within 48 Hours Sepsis New/Unexplained Change in Mental Status Sepsis Action Taken by Nursing VITALS: Vitals are noted on the nurse's note and reviewed by myself. Vital signs stable. GENERAL: Black male who is intoxicated but resting comfortably in his ER bed. HEAD: Normocephalic atraumatic. NECK: Supple without nuchal rigidity. No lymphadenopathy. No thyromegaly. Cervical spine is nontender. HEART: Regular rate and rhythm without murmurs gallops or rubs. LUNGS: Clear to auscultation bilaterally without wheezes, rales or rhonchi. No retractions or accessory muscle use. ABDOMEN: Positive normal bowel sounds x 4. Soft, nontender, without masses or organomegaly. No guarding or rebound tenderness. MUSCULOSKELETAL: Right below the knee amputation is noted. There is tenderness to the left side pelvis and hip. No gross shortening of the leg. NEURO: Patient was intoxicated appearing. He does answer most questions, however answers are slow and with slurred speech presumably from alcohol. Course Administered Medications Insulin Aspart (Insulin Aspart Per Unit Charge) 0 units SC Q6 [facility] Stop: 10/22/22 05:59 Last Admin: 09/22/22 06:27 Dose: Not Given Documented By: ERICA Co-signed By: MAISHA Morphine Sulfate (Morphine Sulfate 4 Mg/Ml 1 Ml Carp\Vial) 3 mg IV Q4H PRN PRN Reason: Pain Stop: 10/06/22 04:18 Last Admin: 09/22/22 07:03 Dose: 3 mg Documented By: MARS Discontinued Medications Gabapentin (Gabapentin 600 Mg Tab) 1,200 mg PO NOW ONE Stop: 09/22/22 04:31 Last Admin: 09/22/22 04:37 Dose: 1,200 mg Documented By: ERICA Thiamine HCl 100 mg/ Folic (Acid 1 mg/ Sodium Chloride) 1,001.2 mls @ 500 mls/hr IV .Q2H1M [facility]; Protocol Stop: 09/22/22 06:45 Last Infusion: 09/22/22 07:03 Dose: 0 mls/hr Documented By: Admin: 09/22/22 04:49 Dose: 500 mls/hr Documented By: ERICA Morphine Sulfate (Morphine Sulfate 2 Mg/Ml Carp) 2 mg IV NOW STA Stop: 09/22/22 04:02 Last Admin: 09/22/22 04:15 Dose: 2 mg Documented By: ERICA Multivitamins/Minerals (Cerovite Adv Formula Tab) 1 tab PO ONE ONE Stop: 09/22/22 04:31 Last Admin: 09/22/22 04:39 Dose: 1 tab Documented By: ERICA Potassium Chloride (Potassium Chloride Crtab 20 Meq Tabcr) 20 meq PO NOW STA Stop: 09/22/22 04:20 Last Admin: 09/22/22 04:38 Dose: 20 meq Documented By: ERICA Medical Decision Making Differential Diagnosis Differential diagnosis: Etiologies such as sprain, strain, fracture, dislocation, subluxation, contusion, alcohol intoxication, toxicological, infection, hypoglycemia, electrolyte abnormalities, cardiac sources, intracerebral event, neurologic, as well as others were entertained. Laboratory Data 09/22/22 00:39 09/22/22 00:39 Lab Results 09/22/22 09/22/22 09/22/22 Range/Units 00:39 00:39 00:39 WBC 3.53 L (4.8-10.8) K/ul RBC 4.06 L (4.70-6.10) M/uL Hgb 12.5 L (14.0-18.0) g/dl Hct 35.4 L (42.0-52.0) % MCV 87.2 (80.0-100.0) fL MCH 30.8 (25.0-34.0) pg MCHC 35.3 (32.0-36.0) g/dL RDW Std Deviation 37.8 (36.4-46.3) fL RDW Coeff of Miguel 11.8 (11.5-14.5) % Plt Count 148 (130-400) K/uL MPV 9.9 (9.4-12.4) fL Immature Gran % (Auto) 0.3 % Neut % (Auto) 36.2 % Lymph % (Auto) 45.6 % Prowers % (Auto) 15.3 % Eos % (Auto) 2.0 % Baso % (Auto) 0.6 % Neut # (Auto) 1.28 L (1.40-6.50) K/uL Lymph # (Auto) 1.61 (1.2-3.4) K/uL Prowers # (Auto) 0.54 (0.11-0.59) K/uL Eos # (Auto) 0.07 (0-0.50) K/uL Baso # (Auto) 0.02 (0-0.2) K/uL Immature Gran # (Auto) 0.01 (0.01-0.20) K/uL Absolute Nucleated RBC 0.04 (0-0.12) K/uL Nucleated RBC % (auto) 1.1 % Sodium 126 L (136-145) mmol/L Potassium 3.4 L (3.5-5.1) mmol/L Chloride 85 L (98-107) mmol/L Carbon Dioxide 23 (21-32) mmol/L Anion Gap 18 H (3-11) BUN 10 (6-23) mg/dl Creatinine 1.11 (0.6-1.4) mg/dl Est Cr Clr Drug Dosing Not Reportable Est GFR ( Amer) 83.2 ml/min Est GFR (Non-Af Amer) 71.8 ml/min BUN/Creatinine Ratio 9.0 L (10-20) Glucose 138 H (70-99(Fasting)) mg/dl Calcium 8.9 (8.6-10.3) mg/dl Magnesium 2.2 (1.7-2.4) mg/dl Total Bilirubin 1.2 H (0.2-1.0) mg/dl AST 80 H (13-39) U/L ALT 52 (7-52) U/L Alkaline Phosphatase 103 (34-104) U/L Troponin I High Sens 8.5 (0-20) pg/ml Total Protein 8.1 (6.0-8.3) gm/dl Albumin 4.6 (3.4-5.0) gm/dl Globulin 3.5 (2.5-4.0) gm/dl Albumin/Globulin Ratio 1.3 (0.9-2) Lipase 11 (11-82) U/L Ethyl Alcohol mg/dL 317.2 H (<10.0) mg/dl SARS-CoV-2, RNA, NAAT (NEGATIVE) 09/22/22 Range/Units 01:37 WBC (4.8-10.8) K/ul RBC (4.70-6.10) M/uL Hgb (14.0-18.0) g/dl Hct (42.0-52.0) % MCV (80.0-100.0) fL MCH (25.0-34.0) pg MCHC (32.0-36.0) g/dL RDW Std Deviation (36.4-46.3) fL RDW Coeff of Miguel (11.5-14.5) % Plt Count (130-400) K/uL MPV (9.4-12.4) fL Immature Gran % (Auto) % Neut % (Auto) % Lymph % (Auto) % Prowers % (Auto) % Eos % (Auto) % Baso % (Auto) % Neut # (Auto) (1.40-6.50) K/uL Lymph # (Auto) (1.2-3.4) K/uL Prowers # (Auto) (0.11-0.59) K/uL Eos # (Auto) (0-0.50) K/uL Baso # (Auto) (0-0.2) K/uL Immature Gran # (Auto) (0.01-0.20) K/uL Absolute Nucleated RBC (0-0.12) K/uL Nucleated RBC % (auto) % Sodium (136-145) mmol/L Potassium (3.5-5.1) mmol/L Chloride (98-107) mmol/L Carbon Dioxide (21-32) mmol/L Anion Gap (3-11) BUN (6-23) mg/dl Creatinine (0.6-1.4) mg/dl Est Cr Clr Drug Dosing Est GFR ( Amer) ml/min Est GFR (Non-Af Amer) ml/min BUN/Creatinine Ratio (10-20) Glucose (70-99(Fasting)) mg/dl Calcium (8.6-10.3) mg/dl Magnesium (1.7-2.4) mg/dl Total Bilirubin (0.2-1.0) mg/dl AST (13-39) U/L ALT (7-52) U/L Alkaline Phosphatase (34-104) U/L Troponin I High Sens (0-20) pg/ml Total Protein (6.0-8.3) gm/dl Albumin (3.4-5.0) gm/dl Globulin (2.5-4.0) gm/dl Albumin/Globulin Ratio (0.9-2) Lipase (11-82) U/L Ethyl Alcohol mg/dL (<10.0) mg/dl SARS-CoV-2, RNA, NAAT NEGATIVE (NEGATIVE) Imaging Data Radiologist's Impression: Head CT 09/22/22 01:11 Exam(s): CT HEAD Without Contrast EXAM: CT Head Without Intravenous Contrast CLINICAL HISTORY: Reason for exam: fall. TECHNIQUE: Axial computed tomography images of the head/brain without intravenous contrast. CTDI is 37.55 mGy and DLP is 614.27 mGy-cm. Automated exposure control was utilized for the study. A dose lowering technique was utilized adhering to the principles of ALARA. COMPARISON: CT head 11/26/20 FINDINGS: Brain: Generalized parenchymal volume loss. Patchy cerebral white matter hypodensities consistent with chronic small vessel ischemic disease. Chronic lacunar infarcts bilateral basal ganglia, bilateral internal capsules, and left thalamus. Ivan-white matter differentiation maintained. No acute intracranial hemorrhage, mass-effect, or edema. Ventricles: Unremarkable. No hydrocephalus. Bones/joints: Unremarkable. No skull fracture. Soft tissues: Mild parieto-occipital scalp swelling. Sinuses: Unremarkable as visualized. No acute sinusitis. Mastoid air cells: Unremarkable as visualized. No mastoid effusion. IMPRESSION: Mild parieto-occipital scalp swelling. No evidence of acute intracranial process. Electronically signed by: Tracy Graves M.D. 09/22/22 02:[address] 09/22/22 01:11 Exam(s): CT LEFT HIP Without Contrast EXAM: CT Left Lower Extremity Without Intravenous Contrast, Hip CLINICAL HISTORY: Reason for exam: fx on xray. TECHNIQUE: Axial computed tomography images of the left hip without intravenous contrast. Automated exposure control was utilized for the study. A dose lowering technique was utilized adhering to the principles of ALARA. COMPARISON: No relevant prior studies available. FINDINGS: Bones are osteopenic. There is mild-moderate osteoarthritis of the left hip joint. There is no dislocation. There is an acute nondisplaced intertrochanteric fracture of the left femur. Mild surrounding soft tissue swelling is noted. IMPRESSION: Acute nondisplaced intertrochanteric fracture of the left femur. Electronically signed by: Tracy Graves M.D. 09/22/22 02:17 AM ECG Data Attestation: I personally reviewed and interpreted this ECG as follows: Indication: + other (Fall) Additional Comments: Sinus rhythm with 1st degree A-V block @88 bpm Prolonged QT Abnormal ECG When compared with ECG of 26-NOV-2020 15:47, ME interval has increased MDM Narrative Physical exam and history were performed. Nursing notes, EMR, and Medication List were personally reviewed. No social concerns were identified as barriers to patients care. Patient appears to have fallen after drinking alcohol today. Patient is into xicated on arrival. He does report some left-sided hip pain. IV access was established and labs were obtained. X-ray was performed. An order was placed for continuous cardiac monitoring. The monitor shows a rate of 88 with normal sinus rhythm. Patient's blood work is as above and was reviewed. He does not have a significantly elevated white blood cell count or gross anemia. Transaminases a re not diagnostic. Patient alcohol was 317. X-ray was performed and reviewed by myself, and is concerning for a left intertrochanteric fracture. Patient was returned to get additional imaging of his hip and his head. CT scans were performed and reviewed by myself and radiology. Head CT is without significant intra cranial findings. CT scan of the hip confirms a fracture. Case was discussed with the on-call [facility] hospitalist for ongoing care. The patient is a right below the knee amputation with a left hip fracture. He may need surgery, however with his medical comorbidities he will likely need additional clearance. Please see the hospitalist dictation for further patient course, plan, disposition. The chart was completed utilizing [employer]or[employer] Speech Voice Recognition Software. G rammatical errors, random word insertions, pronoun errors, and incomplete sentences are an occasional consequence of this system due to software limitations, ambient noise, and hardware issues. Any formal questions or concerns about the content, text, or information contained within the body of this dictation should be directly addressed to the provider for clarification. . Impression & Plan Closed fracture of left hip, Alcohol abuse, Fall Discharge Plan Visit Data Chief Complaint: Alcohol Intoxication ED Provider: Shira Mcgregor ED Midlevel Provider: Everton Torrez Discharge Problem: Closed fracture of left hip, Alcohol abuse, Fall Patient Disposition: Admitted As Inpatient Discharge Instructions Interventions: ED Discharge Assessment Last Done: 09/22/22 04:18
[2022-09-22] MEDS: MoRPHine SULFATE 4 MG/ML 1 ML CARP\\VIAL IV PRN ×3 (07:03→19:52)
[2022-09-22] MEDS: SODIUM CHLORIDE 0.9% 1000ML 1,000 ML IV SCH ×2 (07:06→19:56)
--- NOTE | 2022-09-22 07:25 | XRay Report ---
XR hip LT 2V w pelvis CLINICAL HISTORY: Fall. COMPARISON: CT of the abdomen and pelvis April 29, 2022. FINDINGS: Note is made of an acute comminuted mildly displaced intertrochanteric fracture of the lef t femur. Sacroiliac joints and symphysis pubis are intact. No additional fractures are identified on this exam. There is moderate bilateral hip osteoarthritis, greater on the left. IMPRESSION: Acute comminuted mildly displaced intertrochanteric fracture of the left femur. ACT 112: Negative or not required by law. Electronically signed by: Ryne Diane M.D. 09/22/2022 7:24 AM
[2022-09-22 07:42] LABS: Basophils # (auto) 0.01 K/uL (0-0.2); Basophils % (auto) 0.1 %; Hematocrit (blood only) 29.7 % (42.0-52.0); Hemoglobin 10.8 g/dl (14.0-18.0); Immature Granulocytes # (auto) 0.03 K/uL (0.01-0.20); Immature Granulocytes % (auto) 0.4 %; Lymphocytes # (auto) 0.86 K/uL (1.2-3.4); Lymphocytes % (auto) 12.9 %; Mean Corpuscular Hemoglobin 31.1 pg (25.0-34.0); Mean Corpuscular Hgb Conc 36.4 g/dL (32.0-36.0); Mean Corpuscular Volume 85.6 fL (80.0-100.0); Mean Platelet Volume 9.5 fL (9.4-12.4); Monocytes # (auto) 0.74 K/uL (0.11-0.59); Monocytes % (auto) 11.1 %; Neutrophils # (auto) 5.05 K/uL (1.40-6.50); Neutrophils % (auto) 75.5 %; Platelet Count 135 K/uL (130-400); RDW Coefficient of Variation 11.8 % (11.5-14.5); RDW Standard Deviation 36.4 fL (36.4-46.3); Red Blood Count 3.47 M/uL (4.70-6.10); White Blood Count 6.69 K/ul (4.8-10.8)
[2022-09-22 08:04] LABS: BUN Creatinine Ratio 13.3 (10-20); Bilirubin Direct 0.2 mg/dl (0-0.2); Creatinine Clr Calc Pharmacy 97.9 ml/min; Est GFR (African American) 115.6 ml/min; Est GFR (Non-African American) 99.7 ml/min; Magnesium 1.9 mg/dl (1.7-2.4); Potassium 3.6 mmol/L (3.5-5.1); Total Protein 6.9 gm/dl (6.0-8.3)
--- NOTE | 2022-09-22 08:18 | Nephrology Consultation ---
Date of Consultation September 22, 2022 Assessment & Plan (1) Hyponatremia: euvolemic hypertonic hyponatremia, w/ tonicity elevation d/t EtOH. history/context most c/w beer potomania/low solute diet. Currently NPO d/t abdominal pain and will be NPO for surgery at some point as well -target sNa for tomorrow AM is 133 -continue to f/u labs >> recheck is sNa 129 at 1300 >he is NPO for possible OR which per discussion w/ hospitalist not likely to happen today; also for CT scan abdomen/pelvis non con >> if diet is ordered after this, recommend stopping NS at that time -maintain eukalemia -recheck serum osms in AM; await urine studies (2) Alcohol withdrawal: per primary service History of Present Illness Reason for Consultation: hyponatremia Requesting Physician: Dr Salcedo Attending Physician: Sergio Chávez MD History of Present Illness 62 y/o M whomi I"m asked to see for hyponatremia was admitted this morning for management of L hip fracture after a mechanical fall in the setting of alcohol abuse. PMH includes HTN, chronic electrolyte issues, alcoholic pancreatitis admission 04/2022, hyperlipidemia, diabetes. He was admitted here 11/2020 for severe hyponatremia of 115 in the setting of beer potomania. His presenting sodium was 126 w/ potassium 3.4 in the first minutes of 5. He is up to 128 w/ K 3.6 7 hours later. His EtOH was 317, serum osms 308, urine osms and spot urine sodium are pending. He had a 1L banana bag and had po K as well as meds for EtOH withdrawal. He is receiving q6h bmp. Currently on NS at 75 ml/hr. denies musculoskeletal pain or sob or edema. does c/o hunger, wants to know when he can eat. no n/v. some epigastric pain. denies new/worrisome voiding concerns. Allergies Allergy/AdvReac Type Severity Reaction Status Date / Time No Known Allergies Allergy Verified 09/22/22 01:49 Home Medications Medication Instructions Recorded Confirmed Type blood sugar diagnostic (CareLuLu #50 ea 05/03/22 Rx Verio test strips) blood-glucose meter (Solutionreachuch #1 ea 05/03/22 Rx Verio Meter) lancets 33 gauge (Leticia Patel #100 ea 05/03/22 Rx Lancets) multivitamin 1 tab PO DAILY 09/22/22 09/22/22 History Patient History Medical History Alcohol dependence a fifth of liquor and 12 beers daily for yrs. Depression Diabetes mellitus type 2 in nonobese GERD (gastroesophageal reflux disease) HLD (hyperlipidemia) HTN (hypertension) Hx of hematuria Hx of pancreatitis Obesity Pancreatitis, recurrent Phantom pain after amputation of lower extremity Tobacco abuse Surgical History Complete below knee amputation of right lower extremity History of mandibular surgery BROKEN JAW 1978 History of tooth extraction ALL TEETH REMOVED Hx of right BKA 2013 s/p fracture of tibia/fibula with associated infection Family History Sister Family history of diabetes mellitus Brother Pancreatic carcinoma Social History Smoking Status: Current every day smoker Tobacco Type: Cigarettes and E-cigarettes / Vaping Cigarettes Per Day: 10; Second Hand Exposure: No; Hx Alcohol Use: Yes Alcohol type: beer and hard liquor Alcohol Intake Frequency: 4 or More x per/Week Alcohol Intake Frequency Comment: 6 pack of beer + daily Hx Substance Use: No Preferred Language: German Communication Ability: Effective Pet Training Instructor Required: No Beliefs That Will Affect Care: None marital status: Single Current Living Situation: Alone Current Living Situation Comment: lives with roomate Feels Safe at Home: Yes Assistive Devices: Cane and Prosthesis Review of Systems Review of Systems: All systems reviewed & are unremarkable except as noted in HPI & below Physical Exam Constitutional: well developed and well nourished Eyes: EOM intact bilaterally ENMT: Ears: no external ear abnormality Nose: no external nose abnormality Mouth: + dry oral mucous membranes Neck: no nuchal rigidity Respiratory: normal respiratory effort Auscultation: + diminished lung sounds Cardiovascular: RRR, no murmur, no edema Gastrointestinal (Abdomen): Inspection/Auscultation: normal bowel sounds Percussion/Palpation: + abdomen tender (RUQ/RLQ, mild epigastrium), + guarding and abdomen soft Musculoskeletal: Extremities: strength 5/5 throughout s/p R BKA Skin: no rashes, warm and dry Neurologic: landry, fluent speech, no tremor Psychiatric: Orientation: alert and oriented x 3 Results & Data Vital Signs (Past 12 Hours) Vital Signs Temp Pulse Pulse Resp BP BP Pulse Ox 09/22/22 07:10 88 09/22/22 06:30 88 16 148/97 H 95 09/22/22 05:25 87 16 133/96 94 09/22/22 05:24 09/22/22 03:51 88 09/22/22 03:30 88 16 118/88 94 09/22/22 02:30 91 H 18 117/86 97 09/22/22 00:34 95 09/21/22 23:52 83 09/21/22 23:52 36.9 C 81 18 145/100 H 93 Pulse Ox O2 Del Method O2 Del Method O2 Flow Rate 09/22/22 07:10 09/22/22 06:30 Room Air 09/22/22 05:25 Room Air 09/22/22 05:24 94 Room Air 0 09/22/22 03:51 09/22/22 03:30 Room Air 09/22/22 02:30 Room Air 09/22/22 00:34 Room Air 09/21/22 23:52 09/21/22 23:52 Room Air Laboratory Results 09/22/22 07:25 09/22/22 07:25 (2) Alcohol withdrawal Complication of substance-induced condition: with unspecified complication Qualified Code(s): F10.239 - Alcohol dependence with withdrawal, unspecified
[2022-09-22 08:45] LABS: Estimated Average Glucose 151 mg/dl; Hemoglobin A1C 6.9 % (4.5-5.6)
[2022-09-22] MEDS: DULoxetine HCL 20 MG CAP PO SCH (09:33)
[2022-09-22] MEDS: GABAPENTIN 600 MG TAB PO SCH ×3 (09:33→23:27)
[2022-09-22] MEDS: carvediloL 3.125 MG TAB PO SCH ×2 (09:33→18:03)
--- NOTE | 2022-09-22 10:10 | Electrocardiogram Report ---
Test Reason : Blood Pressure : / mmHG Vent. Rate : 088 BPM Atrial Rate : 088 BPM P-R Int : 234 ms QRS Dur : 098 ms QT Int : 408 ms P-R-T Axes : 067 084 067 degrees QTc Int : 493 ms Sinus rhythm with 1st degree A-V block Prolonged QT Abnormal ECG When compared with ECG of 26-NOV-2020 15:47, [place] interval has increased Confirmed by Swapnil Allen ([id number]) on 09/22/2022 10:10:19 AM Referred By: REFERRED SELF Confirmed By:Swapnil Allen
--- NOTE | 2022-09-22 13:12 | Orthopedic Consultation ---
Date of Consultation September 22, 2022 Assessment & Plan (1) Closed fracture of left hip: Left intertrochanteric hip fracture. Patient will require a left trochanteric femoral nailing. I have spoken to Dr. Chávez who will be taking care of him for the [facility] service. At this time, he does not feel that the patient is stable for surgery. Nephrology has been consulted for his hyponatremia. They will continue to concentrate on reversing his electrolyte imbalances and give time for his alc ohol level to come down. We will tentatively plan for his left TFN tomorrow if he has been medically cleared. History of Present Illness Reason for Consultation: Left intertrochanteric hip fracture Attending Physician: Sergio Chávez MD History of Present Illness This is a 62-year-old male with past medical history significant for hypertension, hyperlipidemia, alcohol abuse, history of recurrent pancreatitis, hypokalemia, hyponatremia, who presents with fall and left hip fracture. Patient was chronic alcohol use. Apparently had been drinking a good portion of the day prior to coming into the emergency room. Patient has a history of right BKA secondary to what sounds like osteomyelitis from a previous ORIF of his right tib-fib. His leg then had to be amputated. Patient ambulates with a cane. He apparently went to visit one of the local [employer] stores, and while ambulating, had a mechanical fall. Patient had left hip pain and was having difficulty ambulating. He was brought to the [facility] ED via E squad. He was seen by the staff, x-rays were taken. It was found that he had an intertrochanteric hip fracture of the left hip. Patient was also noted to have a blood alcohol level over 300. He was also hyponatremic and hypochloremic. We have been asked to take care of his left hip fracture. Allergies Allergy/AdvReac Type Severity Reaction Status Date / Time No Known Allergies Allergy Verified 09/22/22 01:49 Home Medications Medication Instructions Recorded Confirmed Type blood sugar diagnostic (Take the Interviewuch #50 ea 05/03/22 Rx Verio test strips) blood-glucose meter (LingoramiTouch #1 ea 05/03/22 Rx Verio Meter) lancets 33 gauge (OneTouch Delica #100 ea 05/03/22 Rx Lancets) multivitamin 1 tab PO DAILY 09/22/22 09/22/22 History Patient History Medical History Alcohol dependence a fifth of liquor and 12 beers daily for yrs. Depression Diabetes mellitus type 2 in nonobese GERD (gastroesophageal reflux disease) HLD (hyperlipidemia) HTN (hypertension) Hx of hematuria Hx of pancreatitis Obesity Pancreatitis, recurrent Phantom pain after amputation of lower extremity Tobacco abuse Surgical History Complete below knee amputation of right lower extremity History of mandibular surgery BROKEN JAW 1978 History of tooth extraction ALL TEETH REMOVED Hx of right BKA 2013 s/p fracture of tibia/fibula with associated infection Family History Sister Family history of diabetes mellitus Brother Pancreatic carcinoma Social History Smoking Status: Current every day smoker Tobacco Type: Cigarettes and E-cigarettes / Vaping Cigarettes Per Day: 10; Second Hand Exposure: No; Hx Alcohol Use: Yes Alcohol type: beer and hard liquor Alcohol Intake Frequency: 4 or More x per/Week Alcohol Intake Frequency Comment: 6 pack of beer + daily Hx Substance Use: No Preferred Language: Irish Communication Ability: Effective Farm Product Purchaser Required: No Beliefs That Will Affect Care: None marital status: Single Current Living Situation: Alone Current Living Situation Comment: lives with roomate Feels Safe at Home: Yes Assistive Devices: Cane and Prosthesis Physical Exam Physical Exam: Patient is a 62-year-old -[place] male. He is sleeping upon arrival but is easily awoken. He is currently oriented at this time. No acute distress. Pleasant and cooperative. On examination, his left lower extremity is externally rotated with his knee slightly in flexion with a pillow under his knee to help relieve his hip pain. He is noted to have a right below the knee amputation that was done several years ago. The stump on the right BKA is well-healed. Patient does have a prosthesis available. Left hip is tender on palpation and no attempts to do range of motion at this time. His left knee has an abrasion noted over the anterior surface near the patella and it feels like he has a mild effusion. He denies pain on palpation at this time. Range of motion is limited due to left hip fracture pain. Left ankle range of motion is within normal limits. He denies any pain in the right hip at this time. He denies any shoulder, elbow, wrist pain bilaterally. Range of motion of the upper extremities is essentially within normal limits. There is no gross motor or sensory loss seen at this time. Patient denies any new cervical, thoracic, lumbar pain. Results & Data Vital Signs (Past 12 Hours) Vital Signs Pulse Pulse Resp BP BP Pulse Ox Pulse Ox 09/22/22 10:30 90 19 134/93 94 09/22/22 10:00 89 18 138/97 93 09/22/22 09:30 91 H 18 135/93 93 09/22/22 09:00 87 18 146/101 H 93 09/22/22 08:30 87 18 142/97 H 93 09/22/22 09:30 94 H 18 135/93 96 09/22/22 08:00 83 18 131/89 94 09/22/22 07:00 88 18 131/90 92 09/22/22 07:10 88 09/22/22 06:30 88 16 148/97 H 95 09/22/22 05:25 87 16 133/96 94 09/22/22 05:24 94 09/22/22 03:51 88 09/22/22 03:30 88 16 118/88 94 09/22/22 02:30 91 H 18 117/86 97 O2 Del Method O2 Del Method O2 Flow Rate 09/22/22 10:30 Room Air 09/22/22 10:00 Room Air 09/22/22 09:30 Room Air 09/22/22 09:00 Room Air 09/22/22 08:30 Room Air 09/22/22 09:30 Room Air 09/22/22 08:00 Room Air 09/22/22 07:00 Room Air 09/22/22 07:10 09/22/22 06:30 Room Air 09/22/22 05:25 Room Air 09/22/22 05:24 Room Air 0 09/22/22 03:51 09/22/22 03:30 Room Air 09/22/22 02:30 Room Air Laboratory Results Laboratory Results WBC 6.69 K/ul (4.8-10.8) 09/22/22 07:25 RBC 3.47 M/uL (4.70-6.10) L 09/22/22 07:25 Hgb 10.8 g/dl (14.0-18.0) L 09/22/22 07:25 Hct 29.7 % (42.0-52.0) L 09/22/22 07:25 MCV 85.6 fL (80.0-100.0) 09/22/22 07:25 MCH 31.1 pg (25.0-34.0) 09/22/22 07:25 MCHC 36.4 g/dL (32.0-36.0) H 09/22/22 07:25 RDW Std Deviation 36.4 fL (36.4-46.3) 09/22/22 07: RDW Coeff of Miguel 11.8 % (11.5-14.5) 09/22/22 07:25 Plt Count 135 K/uL (130-400) 09/22/22 07:25 MPV 9.5 fL (9.4-12.4) 09/22/22 07:25 Immature Gran % (Auto) 0.4 % 09/22/22 07:25 Neut % (Auto) 75.5 % 09/22/22 07:25 Lymph % (Auto) 12.9 % 09/22/22 07:25 [place] % (Auto) 11.1 % 09/22/22 07:25 Eos % (Auto) 0.0 % 09/22/22 07:25 Baso % (Auto) 0.1 % 09/22/22 07:25 Neut # (Auto) 5.05 K/uL (1.40-6.50) 09/22/22 07:25 Lymph # (Auto) 0.86 K/uL (1.2-3.4) L 09/22/22 07:25 [place] # (Auto) 0.74 K/uL (0.11-0.59) H 09/22/22 07:25 Eos # (Auto) 0.00 K/uL (0-0.50) 09/22/22 07:25 Baso # (Auto) 0.01 K/uL (0-0.2) 09/22/22 07:25 Immature Gran # (Auto) 0.03 K/uL (0.01-0.20) 09/22/22 07:25 Absolute Nucleated RBC 0.04 K/uL (0-0.12) 09/22/22 00:39 Nucleated RBC % (auto) 1.1 % 09/22/22 00:39 Sodium 128 mmol/L (136-145) L 09/22/22 07:25 Potassium 3.6 mmol/L (3.5-5.1) 09/22/22 07:25 Chloride 90 mmol/L (98-107) L 09/22/22 07:25 Carbon Dioxide 24 mmol/L (21-32) 09/22/22 07:25 Anion Gap 14 (3-11) H 09/22/22 07:25 BUN 10 mg/dl (6-23) 09/22/22 07:25 Creatinine 0.75 mg/dl (0.6-1.4) D 09/22/22 07:25 Est Cr Clr Drug Dosing 97.9 ml/min 09/22/22 07:25 Est GFR ( Amer) 115.6 ml/min 09/22/22 07:25 Est GFR (Non-Af Amer) 99.7 ml/min 09/22/22 07:25 BUN/Creatinine Ratio 13.3 (10-20) 09/22/22 07:25 Glucose 127 mg/dl (70-99(Fasting)) H 09/22/22 07:25 POC Glucose 118 mg/dl (70-99) H 09/22/22 06:08 Estimat Average Glucose 151 mg/dl 09/22/22 07:25 Hemoglobin A1c 6.9 % (4.5-5.6) H 09/22/22 07:25 Osmolality 308 mOsm/kg (280-300) H 09/22/22 07:25 Calcium 8.0 mg/dl (8.6-10.3) L 09/22/22 07:25 Magnesium 1.9 mg/dl (1.7-2.4) 09/22/22 07:25 Total Bilirubin 1.0 mg/dl (0.2-1.0) 09/22/22 07:25 Direct Bilirubin 0.2 mg/dl (0-0.2) 09/22/22 07:25 AST 55 U/L (13-39) H 09/22/22 07:25 ALT 44 U/L (7-52) 09/22/22 07:25 Alkaline Phosphatase 88 U/L (34-104) 09/22/22 07:25 Troponin I High Sens 8.5 pg/ml (0-20) 09/22/22 00:39 Total Protein 6.9 gm/dl (6.0-8.3) 09/22/22 07:25 Albumin 4.0 gm/dl (3.4-5.0) 09/22/22 07:25 Globulin 3.5 gm/dl (2.5-4.0) 09/22/22 00:39 Albumin/Globulin Ratio 1.3 (0.9-2) 09/22/22 00:39 Lipase 11 U/L (11-82) 09/22/22 00:39 Vitamin B12 386 pg/ml (180-914) 09/22/22 07:25 Ethyl Alcohol mg/dL 317.2 mg/dl (<10.0) H 09/22/22 00:39 SARS-CoV-2, RNA, NAAT NEGATIVE (NEGATIVE) 09/22/22 01:37 Impressions Hip/Pelvis X-Ray 09/22/22 00:26 XR hip LT 2V w pelvis CLINICAL HISTORY: Fall. COMPARISON: CT of the abdomen and pelvis April 29, 2022. FINDINGS: Note is made of an acute comminuted mildly displaced intertrochanteric fracture of the left femur. Sacroiliac joints and symphysis pubis are intact. No additional fractures are identified on this exam. There is moderate bilateral hip osteoarthritis, greater on the left. IMPRESSION: Acute comminuted mildly displaced intertrochanteric fracture of the left femur. ACT 112: Negative or not required by law. Electronically signed by: Ryne Diane M.D. 09/22/2022 7:[address] 09/22/22 01:11 Exam(s): CT HEAD Without Contrast EXAM: CT Head Without Intravenous Contrast CLINICAL HISTORY: Reason for exam: fall. TECHNIQUE: Axial computed tomography images of the head/brain without intravenous contrast. CTDI is 37.55 mGy and DLP is 614.27 mGy-cm. Automated exposure control was utilized for the study. A dose lowering technique was utilized adhering to the principles of ALARA. COMPARISON: CT head 11/26/20 FINDINGS: Brain: Generalized parenchymal volume loss. Patchy cerebral white matter hypodensities consistent with chronic small vessel ischemic disease. Chronic lacunar infarcts bilateral basal ganglia, bilateral internal capsules, and left thalamus. Ivan-white matter differentiation maintained. No acute intracranial hemorrhage, mass-effect, or edema. Ventricles: Unremarkable. No hydrocephalus. Bones/joints: Unremarkable. No skull fracture. Soft tissues: Mild parieto-occipital scalp swelling. Sinuses: Unremarkable as visualized. No acute sinusitis. Mastoid air cells: Unremarkable as visualized. No mastoid effusion. IMPRESSION: Mild parieto-occipital scalp swelling. No evidence of acute intracranial process. Electronically signed by: Tracy Graves M.D. 09/22/22 02:[address] 09/22/22 01:11 Exam(s): CT LEFT HIP Without Contrast EXAM: CT Left Lower Extremity Without Intravenous Contrast, Hip CLINICAL HISTORY: Reason for exam: fx on xray. TECHNIQUE: Axial computed tomography images of the left hip without intravenous contrast. Automated exposure control was utilized for the study. A dose lowering technique was utilized adhering to the principles of ALARA. COMPARISON: No relevant prior studies available. FINDINGS: Bones are osteopenic. There is mild-moderate osteoarthritis of the left hip joint. There is no dislocation. There is an acute nondisplaced intertrochanteric fracture of the left femur. Mild surrounding soft tissue swelling is noted. IMPRESSION: Acute nondisplaced intertrochanteric fracture of the left femur. Electronically signed by: Tracy Graves M.D. 09/22/22 02:17 AM
[2022-09-22 14:32] LABS: BUN Creatinine Ratio 12.2 (10-20); Calcium 8.2 mg/dl (8.6-10.3); Creatinine Clr Calc Pharmacy 99.2 ml/min; Est GFR (African American) 116.2 ml/min; Est GFR (Non-African American) 100.3 ml/min; Potassium 3.9 mmol/L (3.5-5.1)
--- NOTE | 2022-09-22 17:53 | Hospitalist Progress Note ---
Date of Service September 22, 2022 Assessment & Plan (1) Closed fracture of left hip: Plan: ASSESSMENT AND PLAN: This 62-year-old male presents with alcoholism and fall noted and found to have left hip fracture. 1. Left hip fracture: Evaluated by orthopedic service, plan for left trochanteric femoral nailing At this time, patient medically stable to proceed with planned surgical procedure in light of: Alcohol intoxication Hyponatremia Management of alcohol intoxication per below Management of hyponatremia per below Appreciate Ortho service recommendations 2. Alcoholism: Currently, alcohol level in the 300s Repeat alcohol level tomorrow Continue alcohol withdrawal protocol including gabapentin taper, etc. Patient denies having alcohol withdrawal/DTs in the past Positive abdominal pain earlier today Check CT abdomen pelvis without contrast No tenderness on clinical exam We will advance diet tonight N.p.o. postmidnight for planned surgery tomorrow 3. Hyponatremia: Euvolemic hypotonic hyponatremia Likely secondary to alcohol intake Sodium level improving, from 126, now 129 Continue IV NSS at 75 cc/h Nephrology service on board, appreciate the recommendations 4. Hypokalemia: Potassium of 3.4 Replaced Now 3.9 5. History of hypertension: The patient does not know what medications he is taking. Supposed to be on Coreg and clonidine. Will place on Coreg and will place on clonidine p.r.n. Monitor the blood pressure, and adjust the medications. Needs follow up with PCP. 6. History of diabetes: Seems to be not on any medications .As per Epic he is on jardiance and metformin. Placed on insulin sliding scale. Follow HbA1c level as well as blood sugars. A1c 6.9 BSG 127-133 Continue insulin sliding scale 7. History of right below the knee amputation: He is status post tibia-fibula fracture of the right leg with subsequent infection and amputation in 2013. PT, OT when stable. 8. Tobacco abuse: Needs counseling. 9. Deep venous thrombosis prophylaxis: Will need Lovenox/heparin subcutaneous postsurgery plan of care discussed with patient in detail and at length all questions answered He is understanding, agreeable, comfortable with the plan of care Patient reports he has updated his brother regarding medical condition and plan of care Admission and Anticipated Discharge Date Admission Date: September 22, 2022 Subjective Follow-up for l hip fracture, alcohol intoxication, hyponatremia, etc. Seen resting in bed, awake, watching TV, comfortable States he feels fine overall Minimal pain in the left hip Right-sided abdominal discomfort now resolved, denies nausea or vomiting Admits to drinking alcohol daily, last drink night of admission Denies tremors, anxiety, confusion Patient reports that he is able to walk at least 2 blocks with no unusual shortness of breath or chest pain No complications during the amputation surgery Review of Systems Review of Systems: all noted and negative except for above Physical Exam Physical Exam: General- oriented x 3, not in distress, speaks in sentences with no effort or accessory muscle use Eyes- anicteric Neck- no JVD Lungs- clear breath sounds bilaterally, no rales/wheezes Heart- normal rate, regular rhythm; no murmurs Abdomen- normal bowel sounds, nondistended, soft, nontender Extremities-left: Mildly externally rotated, no pretibial edema, no calf tenderness : Status post amputation Neuro- alert, oriented x 3; no gross focal neurologic deficits Skin- warm & dry Results & Data Results & Data Vital Signs (Past 12 Hours) Vital Signs Temp Pulse Pulse Resp BP BP Pulse Ox 09/22/22 17:00 36.7 C 75 17 164/99 H 94 09/22/22 15:50 86 16 144/94 H 93 09/22/22 10:30 90 19 134/93 94 09/22/22 10:00 89 18 138/97 93 09/22/22 09:30 91 H 18 135/93 93 09/22/22 09:00 87 18 146/101 H 93 09/22/22 08:30 87 18 142/97 H 93 09/22/22 09:30 94 H 18 135/93 96 09/22/22 08:00 83 18 131/89 94 09/22/22 07:00 88 18 131/90 92 09/22/22 07:10 88 09/22/22 06:30 88 16 148/97 H 95 O2 Del Method 09/22/22 17:00 Room Air 09/22/22 15:50 Room Air 09/22/22 10:30 Room Air 09/22/22 10:00 Room Air 09/22/22 09:30 Room Air 09/22/22 09:00 Room Air 09/22/22 08:30 Room Air 09/22/22 09:30 Room Air 09/22/22 08:00 Room Air 09/22/22 07:00 Room Air 09/22/22 07:10 09/22/22 06:30 Room Air all noted and reviewed including below
--- NOTE | 2022-09-22 19:01 | XRay Report ---
XR chest 1V portable HISTORY: Preoperative evaluation COMPARISON: Chest 11/26/2020. FINDINGS: The lungs are clear. The cardiac silhouette is top normal in size. No pleural effusions. No pneumothorax. There are old, healed left-sided rib fractures. Advanced degenerative changes again no mariana within the right glenohumeral joint. IMPRESSION: No acute process. ACT 112: Negative or not required by law. Electronically signed by: Harshad Avina M.D. 09/22/2022 7:00 PM
[2022-09-22 19:41] LABS: Appearance Urine Clear (Clear); Bacteria Urine Automated 1+ (Negative); Bilirubin Urine Negative (Negative); Blood Urine Negative (Negative); Color Urine Orange; Epithelial Cell Urine Auto >30 /lpf (0-5); Glucose Urine UA Negative (Negative); Ketones Urine 1+ (Negative); Leukocyte Esterase Urine Trace (Negative); Nitrite Urine Negative (Negative); Protein Urine Trace (Negative); RBC Urine Automated 0-4 /hpf (0-4); Specific Gravity Urine 1.018 (1.000-1.030); Urobilinogen Urine Negative (Negative)
[2022-09-22 19:59] LABS: BUN Creatinine Ratio 13.4 (10-20); Calcium 8.6 mg/dl (8.6-10.3); Creatinine Clr Calc Pharmacy 89.6 ml/min; Est GFR (African American) 111.4 ml/min; Est GFR (Non-African American) 96.1 ml/min; Potassium 4.2 mmol/L (3.5-5.1)
[2022-09-22 20:30] LABS: Amphetamines+Metham, Urine Neg (Neg); Barbiturates, Urine Neg (Neg); Benzodiazepine, Urine Neg (Neg); Cocaine, Urine Neg (Neg); MDMA (Ecstacy), Urine Neg (Neg); Methadone, Urine Neg (Neg); Opiate, Urine Pos (Neg); Phencyclidine, Urine Neg (Neg)
--- NOTE | 2022-09-22 22:12 | CT Scan Report ---
Exam(s): CT ABDOMEN + PELVIS Without Contrast EXAM: CT Abdomen and Pelvis Without Intravenous Contrast CLINICAL HISTORY: Reason for exam: abdominal pain. TECHNIQUE: Axial computed tomography images of the abdomen and pelvis without intravenous contrast. CTDI is 6.66 mGy and DLP is 313.6 mGy-cm. Automated exposure control was utilized for the study. A dose lowering technique was utilized adhering to the principles of ALARA. COMPARISON: No relevant prior studies available. FINDINGS: Lung bases: Unremarkable. No mass. No consolidation. ABDOMEN: Liver: Unremarkable. Gallbladder and bile ducts: Unremarkable. No calcified stones. No ductal dilation. Pancreas: Calcific edges of the pancreas, consistent with sequelae of chronic pancreatitis. No ductal dilation. Spleen: Unremarkable. No splenomegaly. Adrenals: Unremarkable. No mass. Kidneys and ureters: Unremarkable. No obstructing stones. No hydronephrosis. Stomach and bowel: Unremarkable. No obstruction. No mucosal thickening. PELVIS: Appendix: No findings to suggest acute appendicitis. Bladder: Unremarkable. No stones. Reproductive: Unremarkable as visualized. ABDOMEN and PELVIS: Intraperitoneal space: Unremarkable. No free air. No significant fluid collection. Bones/joints: Displaced left intertrochanteric hip fracture. Degenerative changes of the spine. No dislocation. Soft tissues: Unremarkable. Vasculature: Atherosclerotic changes of the aorta. No abdominal aortic aneurysm. Lymph nodes: Unremarkable. No enlarged lymph nodes. IMPRESSION: Displaced left intertrochanteric hip fracture. Electronically signed by: Lefty Dudley MD 09/22/22 22:11 PM
[2022-09-23] MEDS: MoRPHine SULFATE 4 MG/ML 1 ML CARP\\VIAL IV PRN ×6 (00:12→22:24)
[2022-09-23 01:20] LABS: BUN Creatinine Ratio 14.5 (10-20); Calcium 8.3 mg/dl (8.6-10.3); Creatinine Clr Calc Pharmacy 88.5 ml/min; Est GFR (African American) 110.8 ml/min; Est GFR (Non-African American) 95.6 ml/min; Potassium 4.2 mmol/L (3.5-5.1)
[2022-09-23] MEDS: INSULIN ASPART PER UNIT CHARGE SC SCH ×3 (06:17→17:31)
--- NOTE | 2022-09-23 07:15 | Anesthesiology Consultation ---
Date of Service September 23, 2022 Assessment & Plan (1) Encounter for pre-operative examination: Chart Review Chart Review: Patient NOT seen in Pre Admission Testing Consults Requested none Additional Notes patient remains quite hyponatremic at 126 on 09/23/22 and downtrending should be corrected prior to surgery unless emergent need indicated History Surgery Operation Date: 09/23/22 08:15 Proposed Procedures p Left Hip Trochanteric Femorl Nail Taj - Bj Ndiaye, Height/Weight Height: 5 ft 7 in Weight: 75.2 kg Allergies Allergy/AdvReac Type Severity Reaction Status Date / Time No Known Allergies Allergy Verified 09/22/22 01:49 Medications Home Medications Medication Instructions Recorded Confirmed Last Taken blood sugar diagnostic (OneTouch #50 ea 05/03/22 Unknown Verio test strips) blood-glucose meter (OneTouch #1 ea 05/03/22 Unknown Verio Meter) lancets 33 gauge (OneTouch Delica #100 ea 05/03/22 Unknown Lancets) multivitamin 1 tab PO DAILY 09/22/22 09/22/22 Unknown Active Medications Generic Name Dose Route Start Last Admin Trade Name Freq PRN Reason Stop Dose Admin Carvedilol 3.125 mg 09/22/22 08:00 09/22/22 18:03 Carvedilol 3.125 Mg Tab PO 10/22/22 07:59 3.125 mg BIDM RONEY Administration Duloxetine HCl 20 mg 09/22/22 09:00 09/22/22 09:33 Duloxetine Hcl 20 Mg Cap PO 10/22/22 08:59 20 mg QAM RONEY Administration Gabapentin 600 mg 09/23/22 00:00 09/22/22 23:27 Gabapentin 600 Mg Tab PO 09/23/22 16:01 600 mg Q8H RONEY Administration Sodium Chloride 1,000 mls @ 75 mls/hr 09/22/22 07:00 09/22/22 19:56 Nss 1000ml IV 10/22/22 06:59 75 mls/hr .[id number] RONEY Administration Insulin Aspart 0 units 09/22/22 06:00 09/23/22 06:17 Insulin Aspart Per Unit Charge SC 10/22/22 05:59 Not Given Q6 RONEY Morphine Sulfate 3 mg 09/22/22 04:19 09/23/22 06:13 Morphine Sulfate 4 Mg/Ml 1 Ml Carp\Vial IV 10/06/22 04:18 3 mg Q4H PRN Administration Pain Ondansetron HCl 4 mg 09/22/22 04:19 09/22/22 12:01 Ondansetron Inj 2 Mg/Ml 2 Ml Vial IV 10/22/22 04:18 4 mg Q6H PRN Administration Nausea Past Medical History Medical History Alcohol dependence a fifth of liquor and 12 beers daily for yrs. Depression Diabetes mellitus type 2 in nonobese GERD (gastroesophageal reflux disease) HLD (hyperlipidemia) HTN (hypertension) Hx of hematuria Hx of pancreatitis Obesity Pancreatitis, recurrent Phantom pain after amputation of lower extremity Tobacco abuse Past Family History Family History Sister Family history of diabetes mellitus Brother Pancreatic carcinoma Past Surgical History Surgical History Complete below knee amputation of right lower extremity History of mandibular surgery BROKEN JAW 1978 History of tooth extraction ALL TEETH REMOVED Hx of right BKA 2013 s/p fracture of tibia/fibula with associated infection Social History Smoking Status: Current every day smoker tobacco type: cigarettes Smoking cigarettes per day: 10 Do You Dip or Chew Tobacco: No Hx Alcohol Use: Yes Alcohol type: beer and hard liquor alcohol intake frequency: 3 or more drinks per day Hx Substance Use: Yes substance use type: marijuana Last Used Substance: Days (ago) Physical Exam Vital Signs Last Vital Signs Temp 98.2 F 09/23/22 04:23 Pulse 92 H 09/23/22 04:23 Resp 20 09/23/22 04:23 BP 134/85 09/23/22 04:23 Pulse Ox 90 09/23/22 04:23 O2 Del Method Room Air 09/23/22 04:23 O2 Flow Rate 0 09/22/22 05:24 Testing Laboratory Results 09/22/22 07:25 09/23/22 00:48 Hemoglobin A1c 6.9 % (4.5-5.6) H 09/22/22 07:25 Urine Color [place] 09/22/22 19:00 Urine Appearance Clear (Clear) 09/22/22 19:00 Urine pH 6.0 (4.5-7.5) 09/22/22 19:00 Ur Specific [place] 1.018 (1.000-1.030) 09/22/22 19:00 Urine Protein Trace (Negative) H 09/22/22 19:00 Urine Glucose (UA) Negative (Negative) 09/22/22 19:00 Urine Ketones 1+ (Negative) H 09/22/22 19:00 Urine Nitrite Negative (Negative) 09/22/22 19:00 Ur Leukocyte Esterase Trace (Negative) H 09/22/22 19:00 Urine WBC (Auto) 5-10 /hpf (0-5) H 09/22/22 19:00 Urine RBC (Auto) 0-4 /hpf (0-4) 09/22/22 19:00 U Hyaline Cast (Auto) 1-5 /lpf (0-5) 09/22/22 19:00 U Epithel Cells (Auto) >30 /lpf (0-5) H 09/22/22 19:00 Urine Bacteria (Auto) 1+ (Negative) H 09/22/22 19:00 Blood Type O Positive 09/23/22 00:48 Antibody Screen NEGATIVE 09/23/22 00:48 09/23/22 09/22/22 09/22/22 06:17 23:14 20:16 POC Glucose 119 H 135 H 197 H Electrocardiogram Date: 09/22/22 Findings: + NSR @ (1st degree AV block, prolonged QT)
[2022-09-23 07:46] LABS: Basophils # (auto) 0.02 K/uL (0-0.2); Basophils % (auto) 0.4 %; Eosinophils # (auto) 0.05 K/uL (0-0.50); Eosinophils % (auto) 0.9 %; Hemoglobin 9.8 g/dl (14.0-18.0); Immature Granulocytes # (auto) 0.02 K/uL (0.01-0.20); Immature Granulocytes % (auto) 0.4 %; Lymphocytes # (auto) 0.97 K/uL (1.2-3.4); Lymphocytes % (auto) 17.5 %; Mean Corpuscular Hemoglobin 31.3 pg (25.0-34.0); Mean Corpuscular Volume 89.5 fL (80.0-100.0); Mean Platelet Volume 9.6 fL (9.4-12.4); Monocytes # (auto) 0.67 K/uL (0.11-0.59); Monocytes % (auto) 12.1 %; Neutrophils % (auto) 68.7 %; Platelet Count 125 K/uL (130-400); RDW Coefficient of Variation 11.8 % (11.5-14.5); RDW Standard Deviation 37.6 fL (36.4-46.3); Red Blood Count 3.13 M/uL (4.70-6.10); White Blood Count 5.53 K/ul (4.8-10.8)
[2022-09-23 07:59] LABS: BUN Creatinine Ratio 14.5 (10-20); Calcium 8.2 mg/dl (8.6-10.3); Creatinine Clr Calc Pharmacy 106.4 ml/min; Est GFR (African American) 119.6 ml/min; Est GFR (Non-African American) 103.2 ml/min; Potassium 3.9 mmol/L (3.5-5.1)
--- NOTE | 2022-09-23 09:05 | Nephrology Progress Note ---
Date of Service September 23, 2022 Assessment & Plan (1) Hyponatremia: Plan: euvolemic hypertonic hyponatremia, w/ tonicity elevation d/t EtOH. history/context most c/w beer potomania/low solute diet. Currently NPO d/t abdominal pain and will be NPO for surgery at some point as well -target sNa for tomorrow AM is 134 >given that he's NPO needs to continue fluids >> will increase these to 125 mL/hr and add lasix 40 mg IV at 0600, noon, 1800 to try to continue to move sodium; also started standing potassium -continue to f/u labs >> recheck ordered for 1600 >he is NPO for possible OR which per discussion w/ hospitalist not likely to happen today; also for CT scan abdomen/pelvis non con >> if diet is ordered after this, recommend stopping NS at that time -maintain eukalemia -recheck serum osms w/ 1600 labs (2) Alcohol withdrawal: Plan: per primary service Admission and Anticipated Discharge Date Admission Date: September 22, 2022 Subjective No interval events clinically. Remains n.p.o. for possible OR today. Patient denies pain, states abdominal pain is improved. No nausea vomiting. Anxious to get walking again Review of Systems Review of Systems: All systems reviewed & are unremarkable except as noted in Subjective Physical Exam Constitutional: well developed and well nourished Eyes: EOM intact bilaterally ENMT: Ears: no external ear abnormality Nose: no external nose abnormality Mouth: + dry oral mucous membranes Neck: no nuchal rigidity Respiratory: normal respiratory effort Auscultation: + diminished lung sounds Cardiovascular: RRR, no murmur, no edema Gastrointestinal (Abdomen): Inspection/Auscultation: normal bowel sounds Percussion/Palpation: abdomen soft; abdomen nontender Musculoskeletal: Extremities: strength 5/5 throughout (R BKA) Skin: no rashes, warm and dry Psychiatric: Orientation: alert and oriented x 3 Results & Data Vital Signs (Past 12 Hours) Vital Signs Temp Pulse Pulse Resp BP Pulse Ox O2 Del Method 09/23/22 08:03 36.8 C 92 H 18 147/99 H 92 Room Air 09/23/22 06:45 98 H 09/23/22 04:23 36.8 C 92 H 20 134/85 90 Room Air 09/22/22 22:00 79 09/22/22 23:56 36.8 C 80 20 156/93 H 92 Room Air Laboratory Results 09/23/22 07:26 09/23/22 07:26 (2) Alcohol withdrawal Complication of substance-induced condition: with unspecified complication Qualified Code(s): F10.239 - Alcohol dependence with withdrawal, unspecified
[2022-09-23] MEDS: carvediloL 3.125 MG TAB PO SCH ×2 (09:14→17:20)
[2022-09-23] MEDS: GABAPENTIN 600 MG TAB PO SCH ×2 (09:15→17:21)
[2022-09-23] MEDS: DULoxetine HCL 20 MG CAP PO SCH (09:15)
[2022-09-23] MEDS: FOLIC ACID 1 MG in SYRINGE 9.8 ML IV SCH (09:16)
[2022-09-23] MEDS: THIAMINE HCL 100 MG in SYRINGE 9 ML IV SCH (09:16)
[2022-09-23] MEDS: CEROVITE ADV FORMULA TAB PO SCH (09:16)
[2022-09-23] MEDS: SODIUM CHLORIDE 0.9% 1000ML 1,000 ML IV SCH (09:21)
[2022-09-23 11:44] LABS: Calcium 8.7 mg/dl (8.6-10.3); Creatinine Clr Calc Pharmacy 106.4 ml/min; Est GFR (African American) 119.6 ml/min; Est GFR (Non-African American) 103.2 ml/min
[2022-09-23] MEDS: FUROSEMIDE 40 MG/4 ML VIAL IV SCH ×2 (12:53→17:22)
--- NOTE | 2022-09-23 13:43 | XRay Report ---
XR chest 1V portable CLINICAL HISTORY: Fluid overload. COMPARISON STUDY: Chest radiograph September 22, 2022. FINDINGS: Lung volumes are normal. Lungs are clear. Linear right midlung densities are unchanged and favor scarring. There is no pneumothorax or pleural effusion. Cardiac size is normal. Mediastinal con tours are normal. There is no evidence for pulmonary edema. 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 IMPRESSION: No acute cardiopulmonary findings. No change in appearance of the chest. ACT 112: Negative or not required by law. Electronically signed by: Ryne Diane M.D. 09/23/2022 1:42 PM
[2022-09-23] MEDS: POTASSIUM CHLORIDE CRTAB 20 MEQ TABCR PO SCH ×2 (14:14→21:21)
[2022-09-23 16:45] LABS: BUN Creatinine Ratio 10.1 (10-20); Calcium 8.7 mg/dl (8.6-10.3); Est GFR (African American) 113.1 ml/min; Est GFR (Non-African American) 97.6 ml/min
--- NOTE | 2022-09-23 18:10 | Hospitalist Progress Note ---
Date of Service September 23, 2022 Assessment & Plan (1) Closed fracture of left hip: Plan: ASSESSMENT AND PLAN: This 62-year-old male presents with alcoholism and fall noted and found to have left hip fracture. 1. Left hip fracture: Evaluated by orthopedic service, plan for left trochanteric femoral nailing At this time, patient medically unstable to proceed with planned surgical procedure in light of: Hyponatremia Hypoxia Management of hypoxia per below Management of hyponatremia per below Appreciate Ortho service recommendations Acute Hypoxic Respiratory Failure likely from Volume Overload IV fluids held Lasix IV started wean off O2 accordingly 2. Alcoholism: Currently, alcohol level in the 300s Repeat alcohol level tomorrow Continue alcohol withdrawal protocol including gabapentin taper, etc. Patient denies having alcohol withdrawal/DTs in the past Positive abdominal pain earlier today Check CT abdomen pelvis without contrast No tenderness on clinical exam We will advance diet tonight N.p.o. postmidnight for planned surgery tomorrow 4/ stable alcohol level undetectable no signs of active withdrawal/DT continue alc withdrawal protocol 3. Hyponatremia: Euvolemic hypotonic hyponatremia Likely secondary to alcohol intake Sodium level improving, from 126, now 129 Continue IV NSS at 75 cc/h Nephrology service on board, appreciate the recommendations 09/23 still at 127 discussed with Nephro d/c IV fluids start Lasix IV start Urea tab repeat Na tomorrow 4. Hypokalemia: Potassium of 3.4 Replaced Now 4.0 5. History of hypertension: The patient does not know what medications he is taking. Supposed to be on Coreg and clonidine. Will place on Coreg and will place on clonidine p.r.n. Monitor the blood pressure, and adjust the medications. Needs follow up with PCP. 6. History of diabetes: Seems to be not on any medications .As per Epic he is on jardiance and metformin. Placed on insulin sliding scale. Follow HbA1c level as well as blood sugars. A1c 6.9 Continue insulin sliding scale 7. History of right below the knee amputation: He is status post tibia-fibula fracture of the right leg with subsequent infection and amputation in 2013. PT, OT when stable. 8. Tobacco abuse: Needs counseling. 9. Deep venous thrombosis prophylaxis: Heparin SC plan of care discussed with patient in detail and at length all questions answered He is understanding, agreeable, comfortable with the plan of care Patient reports he has updated his brother regarding medical condition and plan of care Admission and Anticipated Discharge Date Admission Date: September 22, 2022 Subjective ff up for L hip fracture, etc seen resting in bed, not in distress, comfortable states L hip pain is manageable no chest pain, dyspnea, palpitations, dizziness no abd pain, nausea, fever/chills no other symptoms messaged by RN around noon for o2 sat 87% patient re-evaluated at bedside on 4 L NC, O2 sat 94% not in distress no acc muscle use or effort when speaking Review of Systems Review of Systems: all noted and negative except for above Physical Exam Physical Exam: General- oriented x 3, not in distress, speaks in sentences with no effort or accessory muscle use Eyes- anicteric Neck- no JVD Lungs- clear breath sounds bilaterally, no rales/wheezes Heart- normal rate, regular rhythm; no murmurs Abdomen- normal bowel sounds, nondistended, soft, nontender Extremities- no pretibial edema, no calf tenderness Neuro- alert, oriented x 3; no gross focal neurologic deficits Skin- warm & dry Results & Data Results & Data Vital Signs (Past 12 Hours) Vital Signs Temp Pulse Pulse Resp BP Pulse Ox O2 Del Method 09/23/22 16:33 36.5 C 84 18 141/91 H 97 Nasal Cannula 09/23/22 14:29 90 09/23/22 13:00 94 Nasal Cannula 09/23/22 11:56 36.8 C 85 20 159/99 H 92 Nasal Cannula 09/23/22 08:03 36.8 C 92 H 18 147/99 H 92 Room Air 09/23/22 06:45 98 H O2 Flow Rate 09/23/22 16:33 2 09/23/22 14:29 09/23/22 13:00 3 09/23/22 11:56 5 09/23/22 08:03 09/23/22 06:45 all noted and reviewed including below
[2022-09-23] MEDS: HEPARIN SOD 5,000 UNIT/0.5 ML VIAL SQ SCH (21:21)
[2022-09-23] MEDS: UREA (UREA-NA) 15 GM PACK PO SCH (21:21)
[2022-09-24] MEDS: MoRPHine SULFATE 4 MG/ML 1 ML CARP\\VIAL IV PRN ×5 (02:23→21:33)
[2022-09-24] MEDS: INSULIN ASPART PER UNIT CHARGE SC SCH ×4 (02:36→17:19)
[2022-09-24] MEDS: GABAPENTIN 600 MG TAB PO SCH ×2 (04:59→17:17)
[2022-09-24] MEDS: HEPARIN SOD 5,000 UNIT/0.5 ML VIAL SQ SCH ×3 (05:03→21:10)
[2022-09-24] MEDS: FUROSEMIDE 40 MG/4 ML VIAL IV SCH ×3 (05:04→17:25)
[2022-09-24 06:05] LABS: Basophils # (auto) 0.01 K/uL (0-0.2); Basophils % (auto) 0.2 %; Eosinophils % (auto) 1.8 %; Hematocrit (blood only) 30.1 % (42.0-52.0); Hemoglobin 10.3 g/dl (14.0-18.0); Immature Granulocytes # (auto) 0.02 K/uL (0.01-0.20); Immature Granulocytes % (auto) 0.4 %; Lymphocytes # (auto) 1.03 K/uL (1.2-3.4); Lymphocytes % (auto) 18.4 %; Mean Corpuscular Hemoglobin 30.7 pg (25.0-34.0); Mean Corpuscular Hgb Conc 34.2 g/dL (32.0-36.0); Mean Corpuscular Volume 89.6 fL (80.0-100.0); Monocytes # (auto) 0.91 K/uL (0.11-0.59); Monocytes % (auto) 16.3 %; Neutrophils # (auto) 3.52 K/uL (1.40-6.50); Neutrophils % (auto) 62.9 %; Platelet Count 134 K/uL (130-400); RDW Coefficient of Variation 11.6 % (11.5-14.5); RDW Standard Deviation 37.8 fL (36.4-46.3); Red Blood Count 3.36 M/uL (4.70-6.10); White Blood Count 5.59 K/ul (4.8-10.8)
[2022-09-24 06:19] LABS: BUN Creatinine Ratio 27.3 (10-20); Calcium 9.3 mg/dl (8.6-10.3); Creatinine Clr Calc Pharmacy 83.5 ml/min; Est GFR (African American) 108.2 ml/min; Est GFR (Non-African American) 93.4 ml/min; Potassium 4.2 mmol/L (3.5-5.1)
[2022-09-24] MEDS: POTASSIUM CHLORIDE CRTAB 20 MEQ TABCR PO SCH ×3 (09:03→21:09)
[2022-09-24] MEDS: carvediloL 3.125 MG TAB PO SCH ×2 (09:03→17:18)
[2022-09-24] MEDS: DULoxetine HCL 20 MG CAP PO SCH (09:04)
[2022-09-24] MEDS: CEROVITE ADV FORMULA TAB PO SCH (09:04)
[2022-09-24] MEDS: THIAMINE HCL 100 MG in SYRINGE 9 ML IV SCH (09:05)
[2022-09-24] MEDS: FOLIC ACID 1 MG in SYRINGE 9.8 ML IV SCH (09:05)
[2022-09-24] MEDS: UREA (UREA-NA) 15 GM PACK PO SCH ×2 (09:05→21:08)
--- NOTE | 2022-09-24 14:38 | Nephrology Progress Note ---
Date of Service September 24, 2022 Assessment & Plan (1) Hyponatremia: Plan: euvolemic hypertonic hyponatremia, w/ tonicity elevation d/t EtOH. history/context most c/w beer potomania/low solute diet. Currently on 1.2L FR and will be NPO for surgery at some point as well -target sNa for tomorrow AM is 134 >cont lasix 40 mg IV at 0600, noon, 1800 to try to continue to move sodium; also started standing potassium -continue to f/u labs >> recheck ordered for 1600 -maintain eukalemia (2) Alcohol withdrawal: Plan: per primary service Admission and Anticipated Discharge Date Admission Date: September 22, 2022 Subjective Sodium remains uncontrolled and we continue to work on improving it Review of Systems Review of Systems: All systems reviewed & are unremarkable except as noted in Subjective Physical Exam Constitutional: well developed and well nourished Eyes: EOM intact bilaterally ENMT: Ears: no external ear abnormality Nose: no external nose abnormality Mouth: + dry oral mucous membranes Neck: no nuchal rigidity Respiratory: normal respiratory effort Auscultation: + diminished lung katherine nds Cardiovascular: RRR, no murmur, no edema Gastrointestinal (Abdomen): Inspection/Auscultation: normal bowel sounds Percussion/Palpation: + guarding and abdomen soft; abdomen nontender Musculoskeletal: Extremities: strength 5/5 throughout (R BKA) Skin: no rashes, warm and dry Psychiatric: Orientation: alert and oriented x 3 Results & Data Vital Signs (Past 12 Hours) Vital Signs Temp Pulse Pulse Resp BP BP Pulse Ox 09/24/22 12:22 37.2 C 97 H 18 115/79 95 09/24/22 10:33 09/24/22 10:00 36.7 C 93 H 18 115/78 96 09/24/22 07:26 98 H 09/24/22 07:14 37.1 C 95 H 18 125/82 94 09/24/22 05:00 09/24/22 04:00 36.8 C 81 18 143/87 H 99 Pulse Ox O2 Del Method O2 Del Method O2 Flow Rate 09/24/22 12:22 Room Air 09/24/22 10:33 Room Air 09/24/22 10:00 Room Air 09/24/22 07:26 09/24/22 07:14 Room Air 09/24/22 05:00 98 Room Air 09/24/22 04:00 Nasal Cannula 2 Laboratory Results 09/24/22 05:44 09/24/22 05:44 (2) Alcohol withdrawal Complication of substance-induced condition: with unspecified complication Qualified Code(s): F10.239 - Alcohol dependence with withdrawal, unspecified
[2022-09-24 16:21] LABS: Calcium 9.3 mg/dl (8.6-10.3); Creatinine Clr Calc Pharmacy 73.4 ml/min; Est GFR (African American) 94.4 ml/min; Est GFR (Non-African American) 81.4 ml/min; Potassium 4.6 mmol/L (3.5-5.1)
--- NOTE | 2022-09-24 18:53 | Hospitalist Progress Note ---
Date of Service September 24, 2022 Assessment & Plan (1) Closed fracture of left hip: Plan: ASSESSMENT AND PLAN: This 62-year-old male presents with alcoholism and fall noted and found to have left hip fracture. 1. Left hip fracture: Evaluated by orthopedic service, plan for left trochanteric femoral nailing At this time, patient medically unstable to proceed with planned surgical procedure in light of: Hyponatremia Management of hyponatremia per below Appreciate Ortho service recommendations Acute Hypoxic Respiratory Failure likely from Volume Overload IV fluids held Lasix IV started Resolved 2. Alcoholism: Currently, alcohol level in the 300s Repeat alcohol level tomorrow Continue alcohol withdrawal protocol including gabapentin taper, etc. Patient denies having alcohol withdrawal/DTs in the past Positive abdominal pain earlier today Check CT abdomen pelvis without contrast No tenderness on clinical exam We will advance diet tonight N.p.o. postmidnight for planned surgery tomorrow 4/ stable alcohol level undetectable no signs of active withdrawal/DT continue alc withdrawal protocol 09/24 Stable No signs of active withdrawals or DTs Continue gabapentin protocol 3. Hyponatremia: Euvolemic hypotonic hyponatremia Likely secondary to alcohol intake Sodium level improving, from 126, now 129 Continue IV NSS at 75 cc/h Nephrology service on board, appreciate the recommendations 09/23 still at 127 discussed with Nephro d/c IV fluids start Lasix IV start Urea tab repeat Na tomorrow 09/24 Sodium still at 127 Lasix IV increased Urea tablets continue Monitor sodium closely 4. Hypokalemia: Potassium of 3.4 Replaced Now 4.2 5. History of hypertension: The patient does not know what medications he is taking. Supposed to be on Coreg and clonidine. Will place on Coreg and will place on clonidine p.r.n. Monitor the blood pressure, and adjust the medications. Needs follow up with PCP. BP controlled while on Coreg 6. History of diabetes: Seems to be not on any medications .As per Epic he is on jardiance and metformin. Placed on insulin sliding scale. Follow HbA1c lev el as well as blood sugars. A1c 6.9 Continue insulin sliding scale 7. History of right below the knee amputation: He is status post tibia-fibula fracture of the right leg with subsequent infection and amputation in 2013. PT, OT when stable. 8. Tobacco abuse: Needs counseling. 9. Deep venous thrombosis prophylaxis: Heparin SC plan of care discussed with patient in detail and at length all questions answered He is understanding, agreeable, comfortable with the plan of care Admission and Anticipated Discharge Date Admission Date: September 22, 2022 Subjective ff up for left hip fracture, etc. Seen resting in bed, comfortable, not in distress Off oxygen States he feels fine overall Minimal discomfort left hip No shortness of breath, cough, fevers or chills, chest pain Patient reports he is hungry and would like to eat No other symptoms Review of Systems Review of Systems: all noted and negative except for above Physical Exam Physical Exam: General- oriented x 3, not in distress, speaks in sentences with no effort or accessory muscle use Eyes- anicteric Neck- no JVD Lungs- clear BS bilaterally, no rales/wheezes Heart- normal rate, regular rhythm; no murmurs Abdomen- normal bowel sounds, nondistended, soft, no tenderness Extremities- no pretibial edema, no calf tenderness Neuro- alert, oriented x 3; no gross focal neurologic deficits Skin- warm & dry Results & Data Results & Data Vital Signs (Past 12 Hours) Vital Signs Temp Pulse Pulse Resp BP BP Pulse Ox 09/24/22 14:58 36.9 C 102 H 18 116/78 96 09/24/22 12:22 37.2 C 97 H 18 115/79 95 09/24/22 10:33 09/24/22 10:00 36.7 C 93 H 18 115/78 96 09/24/22 07:26 98 H 09/24/22 07:14 37.1 C 95 H 18 125/82 94 O2 Del Method 09/24/22 14:58 Room Air 09/24/22 12:22 Room Air 09/24/22 10:33 Room Air 09/24/22 10:00 Room Air 09/24/22 07:26 09/24/22 07:14 Room Air all noted and reviewed including below
[2022-09-24] MEDS: NICOTINE 7 MG/24 HR TDSY TD SCH (23:54)
[2022-09-25] MEDS: INSULIN ASPART PER UNIT CHARGE SC SCH ×5 (00:21→22:01)
[2022-09-25] MEDS: MoRPHine SULFATE 4 MG/ML 1 ML CARP\\VIAL IV PRN ×3 (01:46→10:41)
[2022-09-25] MEDS: HEPARIN SOD 5,000 UNIT/0.5 ML VIAL SQ SCH ×3 (06:12→21:42)
[2022-09-25] MEDS: FUROSEMIDE 40 MG/4 ML VIAL IV SCH ×3 (06:24→20:07)
[2022-09-25 06:47] LABS: Codeine Urine NEGATIVE ng/mL (<50); Hydrocodone Urine NEGATIVE ng/mL (<50); Hydromor Urine NEGATIVE ng/mL (<50); Marijuana Quant, GCMS Urine 1113 ng/mL (<5); Morphine Urine 6940 ng/mL (<50); Norhydrocodone Conf Ur NEGATIVE ng/mL (<50); Noroxycodone Urine NEGATIVE ng/mL (<50); Oxycodone Urine NEGATIVE ng/mL (<50); Oxymorph Urine NEGATIVE ng/mL (<50)
[2022-09-25 07:27] LABS: BUN Creatinine Ratio 41.6 (10-20); Calcium 9.4 mg/dl (8.6-10.3); Est GFR (African American) 81.4 ml/min; Est GFR (Non-African American) 70.3 ml/min; Potassium 4.4 mmol/L (3.5-5.1)
--- NOTE | 2022-09-25 08:35 | Nephrology Progress Note ---
Date of Service September 25, 2022 Assessment & Plan (1) Hyponatremia: Plan: euvolemic hypertonic hyponatremia on presentation w/ tonicity elevation d/t EtOH. history/context most c/w beer potomania/low solute diet. Currently on 1.2L FR and will be NPO for surgery at some point as well -target sNa for tomorrow AM is 133 >hypotensive and tachycardic this am > will hold lasix and K; work up per primary service -continue to f/u labs >> recheck ordered for 1899 -maintain eukalemia -waiting on better sodium before hip fracture repair (2) Alcohol withdrawal: Plan: per primary service Admission and Anticipated Discharge Date Admission Date: September 22, 2022 Subjective no interval clinical events. Surgery deferred again today due to ongoing hyponatremia. Patient hungry and eating well without nausea or vomiting. Denies issues with shortness of breath or edema. Review of Systems Review of Systems: All systems reviewed & are unremarkable except as noted in Subjective Physical Exam Constitutional: well developed and well nourished ( Sitting up on side of the bed); no acute distress Eyes: EOM intact bilaterally ENMT: Ears: no external ear abnormality Nose: no external nose abnormality Mouth: + dry oral mucous membranes Neck: no nuchal rigidity Respiratory: normal respiratory effort Auscultation: + diminished lung sounds Cardiovascular: RRR, no murmur, no edema Gastrointestinal (Abdomen): Inspection/Auscultation: normal bowel sounds Percussion/Palpation: abdomen soft; abdomen nontender Musculoskeletal: Extremities: strength 5/5 throughout (R BKA) Skin: no rashes, warm and dry Neurologic: moves all extremities, fluent speech Psychiatric: Orientation: alert and oriented x 3 Results & Data Vital Signs (Past 12 Hours) Vital Signs Temp Pulse Pulse Resp BP Pulse Ox O2 Del Method 09/25/22 08:05 37.3 C 112 H 18 91/63 L 96 Room Air 09/25/22 07:15 97 H 09/25/22 07:35 Room Air 09/25/22 03:28 36.9 C 102 H 18 116/85 94 Room Air 09/24/22 21:59 102 H 09/24/22 23:36 Room Air 09/24/22 22:56 37.1 C 99 H 18 122/77 93 Room Air Laboratory Results 09/24/22 05:44 09/25/22 06:39 (2) Alcohol withdrawal Complication of substance-induced condition: with unspecified complication Qualified Code(s): F10.239 - Alcohol dependence with withdrawal, unspecified
--- NOTE | 2022-09-25 09:19 | Orthopedic Progress Note ---
Date of Service September 25, 2022 Assessment & Plan (1) Intertrochanteric fracture of left femur: Plan: He has a mildly displaced left hip intertrochanteric femur fracture. This will require surgical fixation. Plan is for a short cephalomedullary nail. We are awaiting medical clearance, mainly due to hyponatremia secondary to alcohol abuse. Per internal medicine note from yesterday evening at 18:47, "At this time, patient medically unstable to proceed with planned surgical procedure in light of: Hyponatremia". A.M. labs this morning showed sodium at 127, up from 126 yesterday. Nephrology note from this morning also notes that patient is hypotensive and tachycardic this morning. Patient was originally scheduled for first case this morning. In light of last medicine note and essentially unchanged sodium level this morning, decision was made by anesthesiologist to cancel his case at approximately 0740. He will tentatively be reposted for surgery tomorrow morning, pending correction of his sodium, hypotension, and tachycardia, and final clearance from internal medicine. Admission and Anticipated Discharge Date Admission Date: September 22, 2022 Subjective Patient resting comfortably in no apparent distress. Surprisingly, he is sitting upright in bed. He does endorse pain in his left hip and thigh, and is unable to walk due to this pain. Physical Exam Physical Exam: Examination of the left hip shows no open wounds. There is mild swelling and tenderness to palpation of the thigh and hip area. Compartments are soft and compressible. Intact ankle dorsiflexion and plantarflexion. Results & Data Vital Signs (Past 12 Hours) Vital Signs Temp Pulse Pulse Resp BP Pulse Ox O2 Del Method 09/25/22 08:05 37.3 C 112 H 18 91/63 L 96 Room Air 09/25/22 07:15 97 H 09/25/22 07:35 Room Air 09/25/22 03:28 36.9 C 102 H 18 116/85 94 Room Air 09/24/22 21:59 102 H 09/24/22 23:36 Room Air 09/24/22 22:56 37.1 C 99 H 18 122/77 93 Room Air Diagnostic Findings Left hip x-rays were reviewed. They show a mildly displaced intertrochanteric femur fracture without significant subtrochanteric extension.
[2022-09-25] MEDS: DULoxetine HCL 20 MG CAP PO SCH (09:39)
[2022-09-25] MEDS: UREA (UREA-NA) 15 GM PACK PO SCH ×2 (09:39→21:41)
[2022-09-25] MEDS: THIAMINE HCL 100 MG in SYRINGE 9 ML IV SCH (09:39)
[2022-09-25] MEDS: CEROVITE ADV FORMULA TAB PO SCH (09:39)
[2022-09-25] MEDS: FOLIC ACID 1 MG in SYRINGE 9.8 ML IV SCH (09:39)
[2022-09-25] MEDS: carvediloL 3.125 MG TAB PO SCH (10:01)
[2022-09-25] MEDS ORDERED: PHARMACY GLYCEMIC MGMT CONSULT PRN (15:33)
[2022-09-25] MEDS ORDERED: MoRPHine SULFATE 4 MG/ML 1 ML CARP\\VIAL IV PRN (15:34)
--- NOTE | 2022-09-25 15:39 | Hospitalist Progress Note ---
Date of Service September 25, 2022 Assessment & Plan (1) Closed fracture of left hip: Plan: ASSESSMENT AND PLAN: This 62-year-old male presents with alcoholism and fall noted and found to have left hip fracture. Left hip fracture: Evaluated by orthopedic service, plan for left trochanteric femoral nailing At this time, patient medically unstable to proceed with planned surgical procedure in light of: Hyponatremia Management of hyponatremia per below Appreciate Ortho service recommendations Hyponatremia: Euvolemic hypotonic hyponatremia Likely secondary to alcohol intake Sodium level improving, from 126, now 129 Continue IV NSS at 75 cc/h Nephrology service on board, appreciate the recommendations 09/23 still at 127 discussed with Nephro d/c IV fluids start Lasix IV start Urea tab repeat Na tomorrow 09/24 Sodium still at 127 Lasix IV increased Urea tablets continue 09/25 Sodium remains at 127 Continue IV Lasix, urea tablets Monitor closely Acute Hypoxic Respiratory Failure, resolved likely from Volume Overload IV fluids held Lasix IV given Resolved Alcoholism: Currently, alcohol level in the 300s Repeat alcohol level tomorrow Continue alcohol withdrawal protocol including gabapentin taper, etc. Patient denies having alcohol withdrawal/DTs in the past Positive abdominal pain earlier today Check CT abdomen pelvis without contrast No tenderness on clinical exam We will advance diet tonight N.p.o. postmidnight for planned surgery tomorrow 09/23 stable alcohol level undetectable no signs of active withdrawal/DT continue alc withdrawal protocol 09/24 Stable No signs of active withdrawals or DTs Continue gabapentin protocol 09/25 Stable History of hypertension: The patient does not know what medications he is taking. Supposed to be on Coreg and clonidine. Will place on Coreg and will place on clonidine p.r.n. Monitor the blood pressure, and adjust the medications. Needs follow up with PCP. BP controlled while on Coreg History of diabetes: Seems to be not on any medications .As per Epic he is on jardiance and metformin. Placed on insulin sliding scale. Follow HbA1c level as well as blood sugars. A1c 6.9 Continue insulin sliding scale We will consult pharmacy glycemic control service History of right below the knee amputation: He is status post tibia-fibula fracture of the right leg with subsequent infection and amputation in 2013. PT, OT when stable. Tobacco abuse: Needs counseling. Deep venous thrombosis prophylaxis: Heparin SC plan of care discussed with patient in detail and at length all questions answered He is understanding, agreeable, comfortable with the plan of care Admission and Anticipated Discharge Date Admission Date: September 22, 2022 Subjective Follow-up for left hip fracture, hyponatremia, etc. Seen resting in bed, sitting up the edge States he feels okay overall except for left hip pain seems to be increasing today No shortness of breath, chest pain, breath, dizziness No nausea, abdominal pain No other symptoms Review of Systems Review of Systems: all noted and negative except for above Physical Exam Physical Exam: General- oriented x 3, not in distress, speaks in sentences with no effort or accessory muscle use Eyes- anicteric Neck- no JVD Lungs- clear breath sounds bilaterally, no crackles, no wheezing Heart- normal rate, regular rhythm; no murmurs Abdomen- normal bowel sounds, nondistended, soft, no tenderness Extremities- no pretibial edema, no calf tenderness Neuro- alert, oriented x 3; no gross focal neurologic deficits Skin- warm & dry Results & Data Results & Data Vital Signs (Past 12 Hours) Vital Signs Temp Pulse Pulse Resp BP Pulse Ox O2 Del Method 09/25/22 15:11 37.1 C 95 H 20 123/86 100 Room Air 09/25/22 10:54 37.3 C 105 H 20 122/82 94 Room Air 09/25/22 09:37 36.7 C 101 H 18 120/76 95 Room Air 09/25/22 08:05 37.3 C 112 H 18 91/63 L 96 Room Air 09/25/22 07:15 97 H 09/25/22 07:35 Room Air all noted and reviewed including below
[2022-09-25] MEDS ORDERED: GABAPENTIN 600 MG TAB PO SCH (16:00)
[2022-09-25] MEDS: HYDROmorphone INJ 0.5 MG/0.5 ML SYR IV PRN (16:21)
--- NOTE | 2022-09-25 18:38 | Communication Note ---
Date of Service: September 25, 2022 I've spoken w/ cra officer,Zoe Bonner, and agreed surgery can't proceed until hyponatremia corrected to at least 130.
[2022-09-25 20:00] LABS: BUN Creatinine Ratio 49.5 (10-20); Calcium 9.6 mg/dl (8.6-10.3); Creatinine Clr Calc Pharmacy 66.2 ml/min; Est GFR (African American) 83.2 ml/min; Est GFR (Non-African American) 71.8 ml/min; Potassium 4.3 mmol/L (3.5-5.1)
[2022-09-25] MEDS ORDERED: LANTUS PER UNIT CHARGE SQ ONE (21:00)
[2022-09-25] MEDS: POTASSIUM CHLORIDE CRTAB 20 MEQ TABCR PO SCH (21:39)
[2022-09-25] MEDS: NICOTINE 7 MG/24 HR TDSY TD SCH (21:42)
[2022-09-26] MEDS: HYDROmorphone INJ 0.5 MG/0.5 ML SYR IV PRN ×3 (00:41→18:20)
[2022-09-26] MEDS ORDERED: INSULIN ASPART PER UNIT CHARGE SC SCH (02:00)
[2022-09-26] MEDS ORDERED: LANTUS PER UNIT CHARGE SQ ONE (02:45)
[2022-09-26] MEDS: HEPARIN SOD 5,000 UNIT/0.5 ML VIAL SQ SCH ×3 (05:53→21:00)
[2022-09-26] MEDS: INSULIN ASPART PER UNIT CHARGE SC SCH ×5 (05:53→20:55)
[2022-09-26] MEDS: FUROSEMIDE 40 MG/4 ML VIAL IV SCH ×3 (05:54→17:27)
[2022-09-26 07:36] LABS: BUN Creatinine Ratio 54.7 (10-20); Calcium 9.7 mg/dl (8.6-10.3); Creatinine Clr Calc Pharmacy 69.3 ml/min; Est GFR (Non-African American) 75.9 ml/min; Potassium 4.1 mmol/L (3.5-5.1)
[2022-09-26] MEDS: CEROVITE ADV FORMULA TAB PO SCH (08:17)
[2022-09-26] MEDS: POTASSIUM CHLORIDE CRTAB 20 MEQ TABCR PO SCH ×3 (08:18→20:57)
[2022-09-26] MEDS: DULoxetine HCL 20 MG CAP PO SCH (08:18)
[2022-09-26] MEDS: UREA (UREA-NA) 15 GM PACK PO SCH ×2 (08:18→20:56)
[2022-09-26] MEDS: FOLIC ACID 1 MG in SYRINGE 9.8 ML IV SCH (08:18)
[2022-09-26] MEDS: THIAMINE HCL 100 MG in SYRINGE 9 ML IV SCH (08:20)
[2022-09-26] MEDS ORDERED: ONDANSETRON INJ 2 MG/ML 2 ML VIAL IV PRN (09:55)
[2022-09-26] MEDS ORDERED: ATROPINE SULFATE 0.1 MG/ML 10ML SYR IV PRN (09:55)
[2022-09-26] MEDS ORDERED: HYDROmorphone INJ 1 MG/ML SYRINGE IV PRN (09:55)
[2022-09-26] MEDS ORDERED: NALOXONE HCL 0.4 MG/1 ML VIAL/CARP IV PRN (09:55)
[2022-09-26] MEDS ORDERED: ePHEDrine sulfate 50 MG/ML AMP IV PRN (09:55)
[2022-09-26] MEDS ORDERED: PROMETHAZINE HCL 12.5 MG in SODIUM CHLORIDE 0.9% 50 ML IV PRN (09:55)
[2022-09-26] MEDS ORDERED: fentaNYL citrate PF 100 MCG/2 ML VIAL IV PRN (09:55)
[2022-09-26] MEDS ORDERED: FLUMAZENIL 0.1 MG/1 ML 10 ML VIAL IV PRN (09:55)
[2022-09-26] MEDS ORDERED: BUPIVACAINE 0.5 % 5 MG/1 ML MPF 30ML VIAL ONE (10:01)
[2022-09-26] MEDS ORDERED: LIDOCAINE 1% LOCAL 20 ML VIAL ONE (10:01)
[2022-09-26] MEDS ORDERED: PROPOFOL IV EMULSION 10 MG/ML 20 ML VIAL IV ONE (10:07)
[2022-09-26] MEDS ORDERED: LIDOCAINE 2% MPF LOCAL 5 ML VIAL ONE (10:07)
[2022-09-26] MEDS ORDERED: MIDAZOLAM HCL 1 MG/ML 2ML VIAL ONE (10:08)
[2022-09-26] MEDS ORDERED: fentaNYL citrate PF 100 MCG/2 ML VIAL ONE ×2 (10:09→11:08)
[2022-09-26] MEDS ORDERED: ONDANSETRON INJ 2 MG/ML 2 ML VIAL ONE (10:13)
--- NOTE | 2022-09-26 10:25 | History & Physical Bridge Note ---
Date of Service September 26, 2022 History & Physical Bridge Note I have examined the patient, reviewed the History & Physical and in the interval since the performance of the History & Physical I have noted the following changes of clinical significance: Sodium improved to 132 this morning. We will therefore proceed with surgery. Recommended short cephalomedullary nailing for his intertrochanteric femur fracture without significant subtrochanteric extension. Risks, benefits, and alternatives of surgery were explained in detail. The surgical procedure, as well as postoperative recovery and rehabilitation, was also explained in detail. Risks include bleeding; infection; damage to surrounding structures such as nerves, blood vessels, and tendons that run in the area; persistent pain or stiffness; nonunion; malunion; hardware failure; painful prominent hardware requiring removal; or need for further surgery. The patient understands all of this and wishes to proceed with surgery. Informed consent was obtained.
--- NOTE | 2022-09-26 10:34 | Nephrology Progress Note ---
Date of Service September 26, 2022 Assessment & Plan (1) Hyponatremia: Plan: euvolemic hypertonic hyponatremia on presentation w/ tonicity elevation d/t EtOH. history/context most c/w beer potomania/low solute diet. Currently on 1.2L FR and will be NPO for surgery at some point as well -target sNa for tomorrow AM is > 135 > Continue 3 times daily IV Lasix Continue aggressive potassium supplementation 20 mEq 3 times daily Increased urea to 30 g twice daily starting this evening -Repeat labs ordered for 1700: maintain eukalemia -waiting on better sodium before hip fracture repair >> cautiously optimistic this could go forward tomorrow (2) Alcohol withdrawal: Plan: per primary service Admission and Anticipated Discharge Date Admission Date: September 22, 2022 Physical Exam Constitutional: well developed and well nourished ( Sitting up on side of the bed); no acute distress Eyes: EOM intact bilaterally ENMT: Ears: no external ear abnormality Nose: no external nose abnormality Mouth: + dry oral mucous membranes Neck: no nuchal rigidity Respiratory: normal respiratory effort Auscultation: + diminished lung sounds Cardiovascular: RRR, no murmur, no edema Gastrointestinal (Abdomen): Inspection/Auscultation: normal bowel sounds Percussion/Palpation: + guarding and abdomen soft; abdomen nontender Musculoskeletal: Extremities: strength 5/5 throughout (R BKA) Skin: no rashes, warm and dry Psychiatric: Orientation: alert and oriented x 3 Results & Data Vital Signs (Past 12 Hours) Vital Signs Temp Pulse Pulse Resp BP Pulse Ox O2 Del Method 09/26/22 09:56 Room Air 09/26/22 07:26 36.7 C 101 H 18 157/95 H 96 Room Air 09/26/22 07:05 97 H 09/26/22 03:06 36.5 C 98 H 18 130/87 94 Room Air 09/25/22 22:54 100 H 09/25/22 23:40 Room Air 09/25/22 23:01 36.9 C 98 H 16 149/93 H 98 Room Air Laboratory Results 09/24/22 05:44 09/26/22 06:48 (2) Alcohol withdrawal Complication of substance-induced condition: with unspecified complication Qualified Code(s): F10.239 - Alcohol dependence with withdrawal, unspecified
[2022-09-26] MEDS ORDERED: ceFAZolin 330 MG/ML 1 GM VIAL ONE ×2 (10:57)
[2022-09-26] MEDS ORDERED: PHENYLEPHRINE 100MCG/ML 5ML SYR ONE (11:04)
[2022-09-26] MEDS ORDERED: ceFAZolin 2000MG 2,000 MG/15 ML SYR IV ONE (11:22)
--- NOTE | 2022-09-26 11:43 | Fluoroscopy Report ---
FL hip LT 2-3V CLINICAL HISTORY: LEFT TROCH NAIL COMPARISON STUDY: Left hip radiographs and CT September 22, 2022. FLUOROSCOPY TIME: 55 seconds. Ka, r: 14.54 mGy FLUOROSCOPIC IMAGES: 4 FINDINGS: Fluoroscopy was provided during open reduction and internal fixation of the intertrochanter ic fracture of the left femur with trochanteric nail. Fracture alignment appears near anatomic. There are no unexpected radiopaque foreign bodies. There is a distal screw. IMPRESSION: Fluoroscopy provided during internal fixation of the intertrochanteric fracture of the l eft femur. ACT 112: Negative or not required by law. Electronically signed by: Ryne Diane M.D. 09/26/2022 11:42 AM
--- NOTE | 2022-09-26 11:51 | Operative Report ---
Post Operative Report Pre & Post Diagnosis Operation Date: 09/26/22 10:00 Pre-Op Diagnosis: Left hip intertrochanteric femur fracture Post-Op Diagnosis: Left hip intertrochanteric femur fracture I identified the patient and participated in the time-out.: Yes Procedure Operation Date: 09/26/22 10:00 Actual Procedures Left hip short cephalomedullary nailing for intertrochanteric femur fracture (34964) - Elijah Gtz M.D. Surgeon Elijah Gtz MD [employer] Carlene Ramos PA-C Estimated Blood Loss 50 Findings Consistent with Post-Op Diagnosis Specimens None Drains None Anesthesia Type General Complications none Disposition Disposition: Recovery Room Indications Mr. Harrison is a 62-year-old male who injured his left hip during a ground-level fall while intoxicated. History, clinical exam, and imaging were consistent with the above diagnosis. Risks, benefits, and alternatives of surgery were explained in detail. The patient understood all this and wished to proceed. Description of Procedure Implants: Synthes Short (170mm) 130 degree 12mm Trochanteric Fixation Nail, 11mm helical blade, 5mm distal locking screw Patient was identified in the preoperative holding area. Operative extremity was marked. Patient was then brought back to the operating room, and general anesthesia was induced without complication. Appropriate weight-based dose of Ancef was infused intravenously for antibiotic prophylaxis. Patient was then positioned on the fracture table with the traction apparatus. The nonoperative hip was flexed and placed into the well leg keith. Longitudinal traction was applied to the operative hip. Fracture reduction was then performed under fluoroscopic imaging. Once acceptable reduction had been achieved, the left hip was then prepped and draped in a standard sterile fashion using Chlorhexidine prep. I first made an incision just proximal to the greater trochanter in line with the femoral shaft axis, and split the fibers of the iliotibial band. I then bluntly palpated down to the greater trochanter and inserted the guidewire down to the tip of the greater trochanter. It was appropriately positioned on AP and lateral images, and then driven into the proximal femur. I then inserted the soft tissue protector down to the tip of the greater trochanter and then passed the entry reamer over top of the guidewire. It was advanced down towards the lesser trochanter to open the proximal femur. I then inserted the Synthes short TFN attached to the targeting arm into the proximal femur. I malleted it down to an appropriate depth for proper trajectory of the helical blade into the femoral head. Once the nail was at an appropriate depth, I then attached the targeting guide for the helical blade onto the targeting arm. Incision was made in line with the guide through the skin and iliotibial band. The guide sleeve was placed against the lateral cortex of the femur. Guidewire was then inserted through the guide and up into the femoral neck and head. I verified proper placement and trajectory under both AP and lateral images. I advanced the guidewire to the subchondral bone in the femoral head and verified proper depth on orthogonal images. I then measured the depth off of the guidewire. The drill for the helical blade was then set at an appropriate level to match the measured length. The drill was then advanced to the set depth. An appropriate length helical blade was selected and malleted into place over the guidewire. The fracture site was then compressed through the helical blade with the compression ring. I then deployed the set screw proximally to prevent rotation of the helical blade during fracture compression. Fracture compression was then applied using the compression ring on the helical blade targeting sleeve. I then made an incision for the distal locking screw in line with the drill guide through skin and iliotibial band. I then placed the drill sleeve down on the lateral cortex of the femur and drilled through the distal locking hole. Screw length was then measured off of the calibrated drill bit, and an appropriate length was selected and then inserted. The screw length was verified under fluoroscopic imaging. Final fluoroscopic images were then obtained to ensure proper hardware placement, screw length, and fracture reduction. The wounds were then copiously irrigated with sterile saline. I then closed the iliotibial band and deep dermal tissue with #0 Vicryl suture. Subcutaneous tissues closed with 3-0 Vicryl suture, and skin was closed with gerardo. Sterile dressings were then applied with Xeroform, sterile gauze, and foam tape. Drapes were then removed and traction apparatus was disconnected. The patient was awakened from general anesthesia, transferred over to the stretcher, and taken to the Post Anesthesia Care Unit in stable condition. There were no immediate complications from the procedure. I was present and scrubbed for the entire procedure. Due to the complex nature of the procedure, the entire surgery was performed with the operational assistance of Carlene Ramos PA-C. The assistant center director, under direct supervision, was involved in the performance of all aspects of the surgical procedure including hemostasis, tissue incision and retraction, instrument management, patient positioning, and wound closure. I attest to the content of the Intraoperative Record and any orders documented therein. Any exceptions are noted below.
[2022-09-26] MEDS ORDERED: LABETALOL HCL IV 5 MG/ML 20ML IV STA (12:28)
[2022-09-26] MEDS ORDERED: LABETALOL HCL IV 5 MG/ML 20ML IV ONE (12:30)
--- NOTE | 2022-09-26 13:14 | XRay Report ---
XR hip LT 2V w pelvis CLINICAL HISTORY: Postoperative evaluation of the left hip. COMPARISON: Left hip CT and left hip radiograph September 22, 2022. FINDINGS: These images demonstrate internal fixation of the intertrochanteric fracture of the left f emur with trochanteric nail. Fracture alignment has improved and appears near anatomic. Hardware is i ntact. There are skin gerardo. No unexpected radiopaque foreign bodies are present. 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 IMPRESSION: Postoperative images demonstrating internal fixation of the intertrochanteric fracture of the left femur. ACT 112: Negative or not required by law. Electronically signed by: Ryne Diane M.D. 09/26/2022 1:13 PM
[2022-09-26] MEDS ORDERED: hydrALAZINE HCL 20 MG/ML VIAL IV PRN (13:39)
--- NOTE | 2022-09-26 13:43 | Anesthesiology Progress Note ---
Date of Service September 26, 2022 Anesthesia Post Procedure Vital Signs Vital Signs: Temp Pulse Pulse Pulse Resp BP BP 09/26/22 13:21 36.5 C 85 18 166/99 H 09/26/22 13:00 87 20 158/105 H 09/26/22 12:50 36.4 C L 81 15 144/105 H 09/26/22 12:40 82 18 152/101 H 09/26/22 12:30 85 12 169/115 H 09/26/22 12:20 84 13 183/117 H 09/26/22 12:10 82 12 174/110 H 09/26/22 12:00 36.0 C L 80 16 171/113 H 09/26/22 09:56 09/26/22 07:26 36.7 C 101 H 18 157/95 H 09/26/22 07:05 97 H 09/26/22 03:06 36.5 C 98 H 18 130/87 09/25/22 22:54 100 H 09/25/22 23:40 09/25/22 23:01 36.9 C 98 H 16 149/93 H 09/25/22 19:11 37 C 70 16 127/88 09/25/22 14:28 96 H 09/25/22 15:11 37.1 C 95 H 20 123/86 Pulse Ox O2 Del Method O2 Flow Rate 09/26/22 13:21 95 Room Air 09/26/22 13:00 97 Room Air 09/26/22 12:50 99 Room Air 09/26/22 12:40 100 Oxymask 2 09/26/22 12:30 100 Oxymask 3 09/26/22 12:20 100 Oxymask 4 09/26/22 12:10 100 Oxymask 4 09/26/22 12:00 100 Oxymask 6 09/26/22 09:56 Room Air 09/26/22 07:26 96 Room Air 09/26/22 07:05 09/26/22 03:06 94 Room Air 09/25/22 22:54 09/25/22 23:40 Room Air 09/25/22 23:01 98 Room Air 09/25/22 19:11 95 Room Air 09/25/22 14:28 09/25/22 15:11 100 Room Air Pain Intensity Left Hip: Pain Intensity: 3 Transfer of Care Handoff Completed per policy Notes Mental Status: alert / awake / arousable Patient Amnestic to Procedure: Yes Nausea / Vomiting: adequately controlled Pain: adequately controlled Airway Patency, RR, SpO2: stable & adequate BP & HR: stable & adequate Hydration State: stable & adequate Anesthetic Complications: no major complications apparent
--- NOTE | 2022-09-26 13:53 | Pharmacy Report ---
Pharmacy Glycemic Short Note 2 - Date of Service September 26, 2022 - Glycemic Short BSG Results (Last 24 hours): 09/25/22 09/25/22 09/25/22 16:25 19:23 21:35 Glucose 71 POC Glucose 83 143 H 09/26/22 09/26/22 09/26/22 02:08 05:44 06:48 Glucose 157 H POC Glucose 166 H 176 H 09/26/22 12:15 Glucose POC Glucose 172 H OUTPATIENT ANTIDIABETIC REGIMEN: * Jardiance 10 mg PO daily * Metformin 500 mg PO BIDM HbA1c 6.9% (09/22/22) ASSESSMENT: * DH is a 62 year old male who presented on 09/22 with left hip fracture, now POD #0 s/p left hip nailing * Pharmacy consulted for glycemic management yesterday due to elevated BSG at lunchtime * Patient received 10 units of Lantus overnight this morning and 13 units of Novolog yesterday * BSGs labile yesterday - appears to be sensitive to correctional insulin administration given trends over past 48 hours. Will be conservative. PLAN FOR INPATIENT GLYCEMIC CONTROL: * Hold outpatient oral diabetes medications * Basal insulin * Lantus 7-10 units SQ HS (see EHR for details) * Bolus insulin * NovoLog per scale ACHS or Q6hrs while NPO * Goal Range: Low 120 mg/dL - High 150 mg/dL * Correction Factor: 35 mg/dL/unit * Nutritional / Prandial insulin per carb ratio of 1 unit per 12 grams CHO consumed
--- NOTE | 2022-09-26 15:42 | Hospitalist Progress Note ---
Date of Service September 26, 2022 Assessment & Plan (1) Closed fracture of left hip: Plan: ASSESSMENT AND PLAN: This 62-year-old male presents with alcoholism and fall noted and found to have left hip fracture. Left hip fracture: Status post nailing of intertrochanteric femur fracture September 26, 2022 Pain control DVT prophylaxis PT and OT evaluation Hyponatremia: Euvolemic hypotonic hyponatremia Likely secondary to alcohol intake Sodium level improving, from 126, now 129 Continue IV NSS at 75 cc/h Nephrology service on board, appreciate the recommendations 09/23 still at 127 discussed with Nephro d/c IV fluids start Lasix IV start Urea tab repeat Na tomorrow 09/24 Sodium still at 127 Lasix IV increased Urea tablets continue 09/25 Sodium remains at 127 Continue IV Lasix, urea tablets 09/26 Sodium today 132 Continue urea twice daily Monitor closely Acute Hypoxic Respiratory Failure, resolved likely from Volume Overload IV fluids held Lasix IV given Resolved Alcoholism: Currently, alcohol level in the 300s Repeat alcohol level tomorrow Continue alcohol withdrawal protocol including gabapentin taper, etc. Patient denies having alcohol withdrawal/DTs in the past Positive abdominal pain earlier today Check CT abdomen pelvis without contrast No tenderness on clinical exam We will advance diet tonight N.p.o. postmidnight for planned surgery tomorrow 09/23 stable alcohol level undetectable no signs of active withdrawal/DT continue alc withdrawal protocol 09/24 Stable No signs of active withdrawals or DTs Continue gabapentin protocol 09/25 Stable 09/26 No signs of alcohol withdrawal or DTs Completed gabapentin protocol History of hypertension: The patient does not know what medications he is taking. Supposed to be on Coreg and clonidine. Will place on Coreg and will place on clonidine p.r.n. Monitor the blood pressure, and adjust the medications. Needs follow up with PCP. 09/26 Blood pressure elevated postsurgery, no symptoms As needed hydralazine ordered History of diabetes: Seems to be not on any medications .As per Epic he is on jardiance and metformin. Placed on insulin sliding scale. Follow HbA1c level as well as blood sugars. A1c 6.9 Continue insulin sliding scale pharmacy glycemic control service History of right below the knee amputation: He is status post tibia-fibula fracture of the right leg with subsequent infection and amputation in 2013. PT, OT when stable. Tobacco abuse: Needs counseling. Deep venous thrombosis prophylaxis: Heparin SC plan of care discussed with patient in detail and at length all questions answered He is understanding, agreeable, comfortable with the plan of care Admission and Anticipated Discharge Date Admission Date: September 22, 2022 Subjective Follow-up for left hip fracture, hyponatremia, etc. Status post left hip nailing intertrochanteric femur fracture today Seen after surgery Blood pressure elevated but asymptomatic Denies headache, chest pain, shortness of breath, palpitations No abdominal pain, nausea vomiting, fevers or chills Has minimal pain over the surgical site No other symptom Review of Systems Review of Systems: all noted and negative except for above Physical Exam Physical Exam: General- oriented x 3, not in distress, speaks in sentences with no effort or accessory muscle use Eyes- anicteric Neck- no JVD Lungs- clear BS bilaterally, no rales/wheezes Heart- normal rate, regular rhythm; no murmurs Abdomen- normal bowel sounds, nondistended, soft, nontender Extremities- no pretibial edema, no calf tenderness Left hip-ice pack in place Neuro- alert, oriented x 3; no gross focal neurologic deficits Skin- warm & dry Results & Data Results & Data Vital Signs (Past 12 Hours) Vital Signs Temp Pulse Pulse Pulse Resp BP BP 09/26/22 15:01 88 09/26/22 14:23 36.5 C 90 18 137/88 09/26/22 13:49 36.5 C 88 18 161/105 H 09/26/22 13:21 36.5 C 85 18 166/99 H 09/26/22 13:00 87 20 158/105 H 09/26/22 12:50 36.4 C L 81 15 144/105 H 09/26/22 12:40 82 18 152/101 H 09/26/22 12:30 85 12 169/115 H 09/26/22 12:20 84 13 183/117 H 09/26/22 12:10 82 12 174/110 H 09/26/22 12:00 36.0 C L 80 16 171/113 H 09/26/22 09:56 09/26/22 07:26 36.7 C 101 H 18 157/95 H 09/26/22 07:05 97 H Pulse Ox O2 Del Method O2 Flow Rate 09/26/22 15:01 09/26/22 14:23 98 Room Air 09/26/22 13:49 98 Room Air 09/26/22 13:21 95 Room Air 09/26/22 13:00 97 Room Air 09/26/22 12:50 99 Room Air 09/26/22 12:40 100 Oxymask 2 09/26/22 12:30 100 Oxymask 3 09/26/22 12:20 100 Oxymask 4 09/26/22 12:10 100 Oxymask 4 09/26/22 12:00 100 Oxymask 6 09/26/22 09:56 Room Air 09/26/22 07:26 96 Room Air 09/26/22 07:05 all noted and reviewed including below
[2022-09-26 17:20] LABS: BUN Creatinine Ratio 53.3 (10-20); Calcium 9.7 mg/dl (8.6-10.3); Creatinine Clr Calc Pharmacy 68.6 ml/min; Est GFR (Non-African American) 75.1 ml/min; Potassium 3.9 mmol/L (3.5-5.1)
[2022-09-26] MEDS: carvediloL 3.125 MG TAB PO SCH (17:27)
[2022-09-26] MEDS: ceFAZolin 2000MG 2,000 MG/15 ML SYR IV SCH (18:25)
[2022-09-26] MEDS: NICOTINE 7 MG/24 HR TDSY TD SCH (20:57)
[2022-09-26] MEDS ORDERED: LANTUS PER UNIT CHARGE SQ SCH ×2 (21:00)
[2022-09-27] MEDS: HYDROmorphone INJ 0.5 MG/0.5 ML SYR IV PRN ×4 (00:38→19:02)
[2022-09-27] MEDS: ceFAZolin 2000MG 2,000 MG/15 ML SYR IV SCH (03:59)
[2022-09-27] MEDS: FUROSEMIDE 40 MG/4 ML VIAL IV SCH (05:42)
[2022-09-27] MEDS: HEPARIN SOD 5,000 UNIT/0.5 ML VIAL SQ SCH ×3 (05:42→21:38)
[2022-09-27 06:42] LABS: BUN Creatinine Ratio 75.5 (10-20); Calcium 9.7 mg/dl (8.6-10.3); Creatinine Clr Calc Pharmacy 78.1 ml/min; Est GFR (African American) 101.7 ml/min; Est GFR (Non-African American) 87.8 ml/min; Potassium 4.1 mmol/L (3.5-5.1)
--- NOTE | 2022-09-27 06:58 | Orthopedic Progress Note ---
Date of Service September 27, 2022 Assessment & Plan (1) Intertrochanteric fracture of left femur: Plan Left intertrochanteric femur fracture -POD#1 short cephalomedullary nail with Dr. Gtz -TTWB -Dressing changes PRN -Continue pain regimen per primary Admission and Anticipated Discharge Date Admission Date: September 22, 2022 Subjective Patient doing well this morning s/p surgery yesterday. He does note some tenderness to his hip but controlled on current pain regimen. VSS this morning. Denies chest pain, shortness of breath, lightheadedness, dizziness, n/v or other acute complaints. Physical Exam Constitutional: Resting in bed, no acute distress Musculoskeletal: Left hip/lower extremity: Dressings clean, dry and intact. Mild surrounding edema. Compartments soft and compressible with mild tenderness to palpation. Continues with active dorsi/plantarflexion, toes mobile. Sensation and d/p pulse intact Skin: no rashes, warm and dry Neurologic: Awake, alert and oriented x 3 Results & Data Vital Signs (Past 12 Hours) Vital Signs Temp Pulse Pulse Resp BP Pulse Ox O2 Del Method 09/27/22 03:24 36.6 C 84 20 139/95 97 Room Air 09/26/22 22:48 95 H 09/26/22 23:03 36.9 C 89 18 136/89 95 Room Air 09/26/22 19:18 36.4 C L 88 20 132/91 95 Room Air Laboratory Results Laboratory Tests 09/27/22 05:24 Sodium 132 L Potassium 4.1 Chloride 91 L BUN 71 H Creatinine 0.94 BUN/Creatinine Ratio 75.5 H Glucose 209 H Diagnostic Findings Hip x-ray reviewed and interpreted by myself: S/p internal fixation intertrochanteric fracture of the left femur with improved alignment compared to pre-operative imaging. Stable hardware without loosening or breaking. No other acute fractures or dislocations.
[2022-09-27] MEDS: FOLIC ACID 1 MG in SYRINGE 9.8 ML IV SCH (08:09)
[2022-09-27] MEDS: THIAMINE HCL 100 MG in SYRINGE 9 ML IV SCH (08:09)
[2022-09-27] MEDS: carvediloL 3.125 MG TAB PO SCH ×2 (08:10→17:06)
[2022-09-27] MEDS: DULoxetine HCL 20 MG CAP PO SCH (08:11)
[2022-09-27] MEDS: POTASSIUM CHLORIDE CRTAB 20 MEQ TABCR PO SCH ×3 (08:11→21:38)
[2022-09-27] MEDS: CEROVITE ADV FORMULA TAB PO SCH (08:11)
[2022-09-27] MEDS: UREA (UREA-NA) 15 GM PACK PO SCH (08:12)
[2022-09-27] MEDS: INSULIN ASPART PER UNIT CHARGE SC SCH ×4 (08:30→21:37)
[2022-09-27] MEDS ORDERED: LANTUS PER UNIT CHARGE SQ SCH (09:00)
--- NOTE | 2022-09-27 10:46 | Nephrology Progress Note ---
Date of Service September 27, 2022 Assessment & Plan Admission and Anticipated Discharge Date Admission Date: September 22, 2022 Subjective Assessment & Plan (1) Hyponatremia: Plan: euvolemic hypertonic hyponatremia on presentation w/ tonicity elevation d/t EtOH. history/context most c/w beer potomania/low solute diet. C Currently on 1.2L FR na today is 132. Continue 3 times daily IV Lasix while inpt. BUN is rising too fast so d/c Urea pkt. Continue aggressive potassium supplementation 20 mEq 3 times daily while on iv lasix labs can be once daily from now For Discharge: Given his ongoing heavy alcohol use/Living alone/Low Solid food intake--I am very hesitant in using any lasix at home. High risk of ARF and severe Electr olyte problem with outpt use. the treatment is to Stop/massively lower Alcohol/beer intake. FFR of 1200 ml at home Stable for Discharge from renal Standpoint. Physical Exam Constitutional: well developed and well nourished ( Sitting up on side of the bed); no acute distress Eyes: EOM intact bilaterally ENMT: Ears: no external ear abnormality Nose: no external nose abnormality Mouth: + dry oral mucous membranes Neck: no nuchal rigidity Respiratory: normal respiratory effort Auscultation: + diminished lung sounds Cardiovascular: RRR, no murmur, no edema Gastrointestinal (Abdomen): Inspection/Auscultation: normal bowel sounds Percussion/Palpation: + guarding and abdomen soft; abdomen nontender Musculoskeletal: Extremities: strength 5/5 throughout (R BKA) Skin: no rashes, warm and dry Psychiatric: Orientation: alert and oriented x 3 Results & Data Vital Signs (Past 12 Hours) Vital Signs Temp Pulse Pulse Pulse Resp BP BP 09/27/22 07:15 97 H 09/27/22 09:39 09/27/22 08:03 36.9 C 93 H 18 139/96 09/27/22 03:24 36.6 C 84 20 139/95 09/26/22 22:48 95 H 09/26/22 23:03 36.9 C 89 18 136/89 Pulse Ox O2 Del Method 09/27/22 07:15 09/27/22 09:39 Room Air 09/27/22 08:03 96 Room Air 09/27/22 03:24 97 Room Air 09/26/22 22:48 09/26/22 23:03 95 Room Air
--- NOTE | 2022-09-27 14:12 | Pharmacy Report ---
Pharmacy Glycemic Short Note 2 - Date of Service September 27, 2022 - Glycemic Short BSG Results (Last 24 hours): 09/26/22 09/26/22 09/26/22 16:32 16:44 20:43 Glucose 204 H POC Glucose 213 H 194 H 09/27/22 09/27/22 09/27/22 05:24 07:29 11:37 Glucose 209 H POC Glucose 200 H 291 H OUTPATIENT ANTIDIABETIC REGIMEN: * Jardiance 10 mg PO daily * Metformin 500 mg PO BIDM HbA1c 6.9% (09/22/22) ASSESSMENT: 09/27 * Fasting elevated this morning- will increase lantus dose- scale for PM * Prandial BSG also elevated this morning- will tighten carb ratio * Monitor for trend 09/26 * DH is a 62 year old male who presented on 09/22 with left hip fracture, now POD #0 s/p left hip nailing * Pharmacy consulted for glycemic management yesterday due to elevated BSG at lunchtime * Patient received 10 units of Lantus overnight this morning and 13 units of Novolog yesterday * BSGs labile yesterday - appears to be sensitive to correctional insulin administration given trends over past 48 hours. Will be conservative. PLAN FOR INPATIENT GLYCEMIC CONTROL: * Hold outpatient oral diabetes medications * Basal insulin * Lantus 12 units this AM/ 12/15 units PM * Bolus insulin * NovoLog per scale ACHS or Q6hrs while NPO * Goal Range: Low 120 mg/dL - High 150 mg/dL * Correction Factor: 30 mg/dL/unit * Nutritional / Prandial insulin per carb ratio of 1 unit per 10 grams CHO consumed
--- NOTE | 2022-09-27 18:28 | Hospitalist Progress Note ---
Date of Service September 27, 2022 Assessment & Plan (1) Closed fracture of left hip: Plan: ASSESSMENT AND PLAN: This 62-year-old male presents with alcoholism and fall noted and found to have left hip fracture. Left hip fracture: Status post nailing of intertrochanteric femur fracture September 26, 2022 Stable overall postop Pain control DVT prophylaxis PT and OT evaluation Hyponatremia: Euvolemic hypotonic hyponatremia Likely secondary to alcohol intake Sodium level improving, from 126, now 129 Continue IV NSS at 75 cc/h Nephrology service on board, appreciate the recommendations 09/23 still at 127 discussed with Nephro d/c IV fluids start Lasix IV start Urea tab repeat Na tomorrow 09/24 Sodium still at 127 Lasix IV increased Urea tablets continue 09/25 Sodium remains at 127 Continue IV Lasix, urea tablets 09/26 Sodium today 132 Continue urea twice daily 09/27 Sodium 132 DC urea, IV Lasix Monitor sodium Discussed with nephrology service Monitor closely Acute Hypoxic Respiratory Failure, resolved likely from Volume Overload IV fluids held Lasix IV given Resolved Alcoholism: Currently, alcohol level in the 300s Repeat alcohol level tomorrow Continue alcohol withdrawal protocol including gabapentin taper, etc. Patient denies having alcohol withdrawal/DTs in the past Positive abdominal pain earlier today Check CT abdomen pelvis without contrast No tenderness on clinical exam We will advance diet tonight N.p.o. postmidnight for planned surgery tomorrow 09/23 stable alcohol level undetectable no signs of active withdrawal/DT continue alc withdrawal protocol 09/24 Stable No signs of active withdrawals or DTs Continue gabapentin protocol 09/25 Stable 09/26 No signs of alcohol withdrawal or DTs Completed gabapentin protocol 09/27 Stable History of hypertension: The patient does not know what medications he is taking. Supposed to be on Coreg and clonidine. Will place on Coreg and will leland ce on clonidine p.r.n. Monitor the blood pressure, and adjust the medications. Needs follow up with PCP. 09/26 Blood pressure elevated postsurgery, no symptoms As needed hydralazine ordered 09/27 blood pressure improved History of diabetes: Seems to be not on any medications .As per Epic he is on jardiance and metformin. Placed on insulin sliding scale. Follow HbA1c level as well as blood sugars. A1c 6.9 Continue insulin sliding scale pharmacy glycemic control service History of right below the knee amputation: He is status post tibia-fibula f racture of the right leg with subsequent infection and amputation in 2013. PT, OT when stable. Tobacco abuse: Needs counseling. Deep venous thrombosis prophylaxis: Heparin SC Disposition Anticipate discharge to acute rehab when medically stable plan of care discussed with patient in detail and at length all questions answered He is understanding, agreeable, comfortable with the plan of care Admission and Anticipated Discharge Date Admission Date: September 22, 2022 Subjective For left hip fracture status post surgery, etc. Seen resting in bed, comfortable, not in distress States he feels fine overall Left hip pain well controlled no chest pain, dyspnea, palpitations, dizziness No nausea vomiting, abdominal pain No other symptoms Review of Systems Review of Systems: all noted and negative except for above Physical Exam Physical Exam: General- oriented x 3, not in distress, speaks in sentences with no effort or accessory muscle use Eyes- anicteric Neck- no JVD Lungs- clear breath sounds bilaterally, no rales, no wheezing Heart- normal rate, regular rhythm; no murmurs Abdomen- normal bowel sounds, nondistended, soft, nontender Extremities- no pretibial edema, no calf tenderness Left hip-mild edema, no erythema/hematoma, warmth, tenderness Dressing in place, no bleeding or discharge Neuro- alert, oriented x 3; no gross focal neurologic deficits Skin- warm & dry Results & Data Results & Data Vital Signs (Past 12 Hours) Vital Signs Temp Pulse Pulse Pulse Resp BP BP 09/27/22 17:15 91 H 09/27/22 17:10 91 H 111/77 09/27/22 15:54 36.8 C 87 18 136/92 09/27/22 12:03 36.6 C 92 H 18 134/93 09/27/22 07:15 97 H 09/27/22 09:39 09/27/22 08:03 36.9 C 93 H 18 139/96 Pulse Ox O2 Del Method 09/27/22 17:15 09/27/22 17:10 100 Room Air 09/27/22 15:54 96 Room Air 09/27/22 12:03 96 Room Air 09/27/22 07:15 09/27/22 09:39 Room Air 09/27/22 08:03 96 Room Air all noted and reviewed including below
[2022-09-27] MEDS: LANTUS PER UNIT CHARGE SQ SCH (21:37)
[2022-09-27] MEDS: NICOTINE 7 MG/24 HR TDSY TD SCH (21:38)
[2022-09-28] MEDS: HYDROmorphone INJ 0.5 MG/0.5 ML SYR IV PRN ×4 (02:14→20:36)
[2022-09-28] MEDS: HEPARIN SOD 5,000 UNIT/0.5 ML VIAL SQ SCH ×3 (06:00→20:35)
[2022-09-28 06:38] LABS: BUN Creatinine Ratio 47.3 (10-20); Calcium 9.5 mg/dl (8.6-10.3); Creatinine Clr Calc Pharmacy 80.7 ml/min; Est GFR (African American) 105.8 ml/min; Est GFR (Non-African American) 91.3 ml/min; Potassium 4.5 mmol/L (3.5-5.1)
[2022-09-28] MEDS: INSULIN ASPART PER UNIT CHARGE SC SCH ×4 (08:16→20:16)
[2022-09-28] MEDS: LANTUS PER UNIT CHARGE SQ SCH ×2 (08:16→20:55)
[2022-09-28] MEDS: carvediloL 3.125 MG TAB PO SCH ×2 (08:17→16:52)
[2022-09-28] MEDS: FOLIC ACID 1 MG in SYRINGE 9.8 ML IV SCH (08:18)
[2022-09-28] MEDS: CEROVITE ADV FORMULA TAB PO SCH (08:18)
[2022-09-28] MEDS: POTASSIUM CHLORIDE CRTAB 20 MEQ TABCR PO SCH (08:18)
[2022-09-28] MEDS: DULoxetine HCL 20 MG CAP PO SCH (08:18)
[2022-09-28] MEDS: THIAMINE HCL 100 MG in SYRINGE 9 ML IV SCH (08:18)
--- NOTE | 2022-09-28 09:08 | Nephrology Progress Note ---
Date of Service September 28, 2022 Assessment & Plan Admission and Anticipated Discharge Date Admission Date: September 22, 2022 Subjective Assessment & Plan (1) Hyponatremia: Plan: euvolemic hypertonic hyponatremia on presentation w/ tonicity elevation d/t EtOH. history/context most c/w beer potomania/low solute diet. C Currently on 1.2L FR na today is 132. na has been in the low 130's anyway. have stopped all Rx for Low na at this point labs can be once daily from now For Discharge: Given his ongoing heavy alcohol use/Living alone/Low Solid food intake--I do not want to use any lasix at home. High risk of ARF and severe Electrolyte problem with outpt use. the treatment is to Stop/massively lower Alcohol/beer intake. FFR of 1200 ml at home Stable for Discharge from renal Standpoint. Will also Stop Potassium. Physical Exam Constitutional: well developed and well nourished ( Sitting up on side of the bed); no acute distress Eyes: EOM intact bilaterally ENMT: Ears: no external ear abnormality Nose: no external nose abnormality Mouth: + dry oral mucous membranes Neck: no nuchal rigidity Respiratory: normal respiratory effort Auscultation: + diminished lung sounds Cardiovascular: RRR, no murmur, no edema Gastrointestinal (Abdomen): Inspection/Auscultation: normal bowel sounds Percussion/Palpation: + guarding and abdomen soft; abdomen nontender Musculoskeletal: Extremities: strength 5/5 throughout (R BKA) Skin: no rashes, warm and dry Psychiatric: Orientation: alert and oriented x 3 Results & Data Vital Signs (Past 12 Hours) Vital Signs Temp Pulse Pulse Resp BP BP Pulse Ox 09/28/22 08:03 37.1 C 90 20 138/94 96 09/28/22 07:13 88 09/28/22 04:15 36.4 C L 85 18 147/98 H 97 09/27/22 22:00 88 09/27/22 23:25 36.9 C 87 18 134/90 95 09/27/22 23:38 O2 Del Method 09/28/22 08:03 Room Air 09/28/22 07:13 09/28/22 04:15 Room Air 09/27/22 22:00 09/27/22 23:25 Room Air 09/27/22 23:38 Room Air
--- NOTE | 2022-09-28 09:42 | Orthopedic Progress Note ---
Date of Service September 28, 2022 Assessment & Plan (1) Intertrochanteric fracture of left femur: Plan: Left intertrochanteric femur fracture -POD#2 short cephalomedullary nail with Dr. Gtz -TTWB -Dressing changes PRN -Continue pain regimen per primary -patient will likely need SNF vs rehab, ortho to sign off at this time. [place] Gtz [place] [facility] [place]. [phone] Admission and Anticipated Discharge Date Admission Date: September 22, 2022 Subjective POD #2 Review of Systems Constitutional: no fever and no chills Respiratory: no cough and no dyspnea Cardiovascular: no chest pain, no dyspnea and no orthopnea Gastrointestinal: no abdominal pain, no nausea and no vomiting Physical Exam Physical Exam: Left hip: mild swelling, no erythema or warmth. mild tenderness to the hip. able to wiggle toes and ankle plantar/dorsiflexion. calf SNT Skin: no rashes, warm and dry Results & Data Vital Signs (Past 12 Hours) Vital Signs Temp Pulse Pulse Resp BP BP Pulse Ox 09/28/22 08:03 37.1 C 90 20 138/94 96 09/28/22 07:13 88 09/28/22 04:15 36.4 C L 85 18 147/98 H 97 09/27/22 22:00 88 09/27/22 23:25 36.9 C 87 18 134/90 95 09/27/22 23:38 O2 Del Method 09/28/22 08:03 Room Air 09/28/22 07:13 09/28/22 04:15 Room Air 09/27/22 22:00 09/27/22 23:25 Room Air 09/27/22 23:38 Room Air
--- NOTE | 2022-09-28 16:14 | Hospitalist Progress Note ---
Date of Service September 28, 2022 Assessment & Plan (1) Closed fracture of left hip: Plan: ASSESSMENT AND PLAN: This 62-year-old male presents with alcoholism and fall noted and found to have left hip fracture. Left hip fracture: Status post nailing of intertrochanteric femur fracture September 26, 2022 Toe-touch weightbearing Stable overall postop Pain control DVT prophylaxis: Heparin subcu every 8 PT and OT evaluation: Patient is maximal assist, recommend acute rehab Hyponatremia: Euvolemic hypotonic hyponatremia Likely secondary to alcohol intake Admission sodium 126 Nephrology service consulted Given IV Lasix, urea Sodium gradually improved to 132 Currently off Lasix and urea We will need to monitor sodium closely at acute rehab Acute Hypoxic Respiratory Failure, resolved likely from Volume Overload IV fluids held Lasix IV given Resolved Alcoholism: Admitted with alcohol intoxication, alcohol level in the 300s Placed on alcohol withdrawal protocol including gabapentin deep No signs of alcohol withdrawal, delirium tremens while admitted History of hypertension: The patient does not know what medications he is taking. Supposed to be on Coreg and clonidine. Placed on Coreg Blood pressure stable History of diabetes: Seems to be not on any medications .As per Epic he is on jardiance and metformin. Placed on insulin sliding scale. A1c 6.9 Continue insulin sliding scale pharmacy glycemic control service History of right below the knee amputation: He is status post tibia-fibula f racture of the right leg with subsequent infection and amputation in 2013. Tobacco abuse:Counseling done Deep venous thrombosis prophylaxis: Heparin SC Disposition Anticipate discharge to [facility] when accepted plan of care discussed with patient in detail and at length all questions answered He is understanding, agreeable, comfortable with the plan of care Admission and Anticipated Discharge Date Admission Date: September 22, 2022 Subjective Follow-up for status post fall, left hip fracture, status post surgery, etc. Seen resting in bed, comfortable, not distressed States left hip pain is well managed no chest pain, dyspnea, palpitations, dizziness No abdominal pain, fevers or chills, nausea or vomiting No other new symptoms Patient agreeable to transition to acute rehab Review of Systems Review of Systems: all noted and negative except for above Physical Exam Physical Exam: General- oriented x 3, not in distress, speaks in sentences with no effort or accessory muscle use Eyes- anicteric Neck- no JVD Lungs- clear BS BL, no rales or wheezing Heart- normal rate, regular rhythm; no murmurs Abdomen- normal bowel sounds, nondistended, soft, nontender Extremities- no pretibial edema, no calf tenderness Left hip-dressing in place, trace blood noted Mild edema, but no erythema/hematoma/tenderness Neuro- alert, oriented x 3; no gross focal neurologic deficits Skin- warm & dry Results & Data Results & Data Vital Signs (Past 12 Hours) Vital Signs Temp Pulse Pulse Resp BP BP Pulse Ox 09/28/22 15:06 97 H 09/28/22 14:18 37.0 C 99 H 18 136/96 98 09/28/22 11:02 37.2 C 99 H 20 133/96 97 09/28/22 08:03 37.1 C 90 20 138/94 96 09/28/22 07:13 88 09/28/22 04:15 36.4 C L 85 18 147/98 H 97 O2 Del Method 09/28/22 15:06 09/28/22 14:18 Room Air 09/28/22 11:02 Room Air 09/28/22 08:03 Room Air 09/28/22 07:13 09/28/22 04:15 Room Air all noted and reviewed including below
[2022-09-28] MEDS: NICOTINE 7 MG/24 HR TDSY TD SCH (20:34)
[2022-09-29] MEDS: HYDROmorphone INJ 0.5 MG/0.5 ML SYR IV PRN ×2 (02:04→08:45)
[2022-09-29] MEDS: HEPARIN SOD 5,000 UNIT/0.5 ML VIAL SQ SCH ×2 (05:37→13:13)
[2022-09-29 07:34] LABS: BUN Creatinine Ratio 32.3 (10-20); Calcium 9.5 mg/dl (8.6-10.3); Creatinine Clr Calc Pharmacy 74.2 ml/min; Est GFR (African American) 95.5 ml/min; Est GFR (Non-African American) 82.4 ml/min; Potassium 4.2 mmol/L (3.5-5.1)
[2022-09-29] MEDS: CEROVITE ADV FORMULA TAB PO SCH (08:40)
[2022-09-29] MEDS: THIAMINE HCL 100 MG in SYRINGE 9 ML IV SCH (08:40)
[2022-09-29] MEDS: DULoxetine HCL 20 MG CAP PO SCH (08:40)
[2022-09-29] MEDS: carvediloL 3.125 MG TAB PO SCH (08:40)
[2022-09-29] MEDS: FOLIC ACID 1 MG in SYRINGE 9.8 ML IV SCH (08:40)
[2022-09-29] MEDS: INSULIN ASPART PER UNIT CHARGE SC SCH ×2 (08:42→12:33)
[2022-09-29] MEDS: LANTUS PER UNIT CHARGE SQ SCH (08:42)
--- NOTE | 2022-09-29 09:29 | Nephrology Progress Note ---
Date of Service September 29, 2022 Assessment & Plan Admission and Anticipated Discharge Date Admission Date: September 22, 2022 Subjective Assessment & Plan (1) Hyponatremia: Plan: euvolemic hypertonic hyponatremia on presentation w/ tonicity elevation d/t EtOH. history/context most c/w beer potomania/low solute diet. C Currently on 1.2L FR na has been in the low 130's anyway. have stopped all Rx for Low na at this point For Discharge: Given his ongoing heavy alcohol use/Living alone/Low Solid food intake--I do not want to use any lasix at home. High risk of ARF and severe Electrolyte problem with outpt use. the treatment is to Stop/massively lower Alcohol/beer intake. FFR of 1200 ml at home Stable for Discharge from renal Standpoint. No need of any meds for Low na+. However he will have somewhat low na in future garcia once he starts drinking lot of alcohol again. na of 126 should be accepted in rehab in his case Physical Exam Constitutional: well developed and well nourished ( Sitting up on side of the bed); no acute distress Eyes: EOM intact bilaterally ENMT: Ears: no external ear abnormality Nose: no external nose abnormality Mouth: + dry oral mucous membranes Neck: no nuchal rigidity Respiratory: normal respiratory effort Auscultation: + diminished lung sounds Cardiovascular: RRR, no murmur, no edema Gastrointestinal (Abdomen): Inspection/Auscultation: normal bowel sounds Percussion/Palpation: + guarding and abdomen soft; abdomen nontender Musculoskeletal: Extremities: strength 5/5 throughout (R BKA) Skin: no rashes, warm and dry Psychiatric: Orientation: alert and oriented x 3 Results & Data Vital Signs (Past 12 Hours) Vital Signs Temp Pulse Pulse Resp BP BP Pulse Ox 09/29/22 07:55 36.8 C 90 20 136/94 97 09/29/22 02:00 99 H 09/29/22 03:34 37.0 C 95 H 20 135/88 98 09/29/22 00:01 36.9 C 98 H 20 142/98 H 99 09/28/22 22:00 O2 Del Method 09/29/22 07:55 Room Air 09/29/22 02:00 09/29/22 03:34 Room Air 09/29/22 00:01 Room Air 09/28/22 22:00 Room Air
--- NOTE | 2022-09-29 11:19 | Pharmacy Report ---
Pharmacy Glycemic Short Note 2 - Date of Service September 29, 2022 - Glycemic Short BSG Results (Last 24 hours): 09/28/22 09/28/22 09/28/22 11:30 16:28 20:25 Glucose POC Glucose 132 H 161 H 118 H 09/29/22 09/29/22 06:48 07:15 Glucose 117 H POC Glucose 119 H OUTPATIENT ANTIDIABETIC REGIMEN: * Jardiance 10 mg PO daily * Metformin 500 mg PO BIDM HbA1c 6.9% (09/22/22) ASSESSMENT: 09/29 * Patient received 29 units of insulin yesterday of which 27 were basal * Fasting BSG within goal this AM, will keep current basal regimen * Stressors stable, concern for decreased PO intake which may need adjustment of the basal insulin, will monitor for increased downtrending * Prandial BSGs mostly within goal range yesterday, continue current regimen 09/27 * Fasting elevated this morning- will increase lantus dose- scale for PM * Prandial BSG also elevated this morning- will tighten carb ratio * Monitor for trend 09/26 * DH is a 62 year old male who presented on 09/22 with left hip fracture, now POD #0 s/p left hip nailing * Pharmacy consulted for glycemic management yesterday due to elevated BSG at lunchtime * Patient received 10 units of Lantus overnight this morning and 13 units of Novolog yesterday * BSGs labile yesterday - appears to be sensitive to correctional insulin administration given trends over past 48 hours. Will be conservative. PLAN FOR INPATIENT GLYCEMIC CONTROL: * Hold outpatient oral diabetes medications * Basal insulin * Lantus 12 units QAM and 15 units QPM * Bolus insulin * NovoLog per scale ACHS or Q6hrs while NPO * Goal Range: Low 120 mg/dL - High 150 mg/dL * Correction Factor: 35 mg/dL/unit * Nutritional / Prandial insulin per carb ratio of 1 unit per 10 grams CHO consumed
--- NOTE | 2022-09-29 15:31 | Hospitalist Progress Note ---
Date of Service September 29, 2022 Assessment & Plan (1) Closed fracture of left hip: Plan: ASSESSMENT AND PLAN: This 62-year-old male presents with alcoholism and fall noted and found to have left hip fracture. Left hip fracture: Status post nailing of intertrochanteric femur fracture September 26, 2022 Toe-touch weightbearing Stable overall postop Pain control DVT prophylaxis: Heparin subcu every 8 PT and OT evaluation: Patient is maximal assist, recommend acute rehab Hyponatremia: Euvolemic hypotonic hyponatremia Likely secondary to alcohol intake Admission sodium 126 Nephrology service consulted Given IV Lasix, urea Sodium gradually improved to 132 Currently off Lasix and urea We will need to monitor sodium closely at acute rehab Acute Hypoxic Respiratory Failure, resolved likely from Volume Overload IV fluids held Lasix IV given Resolved Alcoholism: Admitted with alcohol intoxication, alcohol level in the 300s Placed on alcohol withdrawal protocol including gabapentin deep No signs of alcohol withdrawal, delirium tremens while admitted History of hypertension: The patient does not know what medications he is taking. Supposed to be on Coreg and clonidine. Placed on Coreg Blood pressure stable History of diabetes: Seems to be not on any medications .As per Epic he is on jardiance and metformin. Placed on insulin sliding scale. A1c 6.9 Continue insulin sliding scale pharmacy glycemic control service History of right below the knee amputation: He is status post tibia-fibula f racture of the right leg with subsequent infection and amputation in 2013. Tobacco abuse:Counseling done Deep venous thrombosis prophylaxis: Heparin SC Disposition Anticipate discharge to [facility] when accepted plan of care discussed with patient in detail and at length all questions answered He is understanding, agreeable, comfortable with the plan of care Admission and Anticipated Discharge Date Admission Date: September 22, 2022 Physical Exam Physical Exam: General- oriented x 3, not in distress, speaks in sentences with no effort or accessory muscle use Eyes- anicteric Neck- no JVD Lungs- clear BS BL, no rales or wheezing Heart- normal rate, regular rhythm; no murmurs Abdomen- normal bowel sounds, nondistended, soft, nontender Extremities- no pretibial edema, no calf tenderness Left hip-dressing in place, trace blood noted Mild edema, but no erythema/hematoma/tenderness Neuro- alert, oriented x 3; no gross focal neurologic deficits Skin- warm & dry Results & Data Results & Data Vital Signs (Past 12 Hours) Vital Signs Temp Pulse Pulse Resp BP BP Pulse Ox 09/29/22 13:42 36.6 C 83 20 151/103 H 142/98 H 99 09/29/22 11:14 36.6 C 83 20 151/103 H 99 09/29/22 10:28 92 H 09/29/22 07:55 36.8 C 90 20 136/94 97 09/29/22 03:34 37.0 C 95 H 20 135/88 98 O2 Del Method 09/29/22 13:42 09/29/22 11:14 Room Air 09/29/22 10:28 09/29/22 07:55 Room Air 09/29/22 03:34 Room Air
--- NOTE | 2022-09-29 15:39 | Discharge Summary ---
Date of Service September 29, 2022 Admission HPI Per Admitting Provider This is a 62-year-old male with past medical history significant for hypertension, hyperlipidemia, alcohol abuse, history of recurrent pancreatitis, hypokalemia, hyponatremia, who presents with fall and left hip fracture. The patient is drinking 6 beers daily and half bottle of vodka daily. It looks like he drank whole day and went to [facility] when he slipped and fell on his left side and he was brought in here and he was found to have left hip fracture. Currently, alert and oriented, hemodynamically stable and asking for pain medication. He has alcohol level of 317. The patient denies any chest pain, no shortness of breath, no cough, no fevers, no nausea, no abdominal pain, no headache, no blurred visions, no sore throat. Normal bowel and bladder movements. Has pain in the hip region. The patient says he ambulates with a cane and he can ambulate two blocks. Lives alone. He says that he takes 3 or 4 medications, but does not remember what he is taking and name of any of those medications are. Admission Exam Per Admitting Provider GENERAL: The patient is of moderate build, not in acute distress. VITAL SIGNS: Temperature 36.9, pulse 88, respiratory rate 16, blood pressure 118/88, oxygen 94% on room air. HEENT: Pupils equal, round and reactive to light. Oral mucosa, no dentition, moist. NECK: No JVD, no neck masses. CARDIOVASCULAR: S1 and S2 heard. Regular rate and rhythm. No murmur, no gallop. RESPIRATORY SYSTEM: Normal AP diameter. No accessory muscle use. No wheezing, no crackles. ABDOMEN: Soft, bowel sounds present, nontender, no distention. CENTRAL NERVOUS SYSTEM: Alert and oriented. Speech is clear. No facial droop. Obeys simple commands, moving extremities. EXTREMITIES: Right lower extremity below knee amputation. Left lower extremity is slightly shortened and externally rotated. No edema or erythema seen. Principal Diagnosis Left hip fracture status post nailing of intertrochanteric femur fracture Hyponatremia Discharge Exam General- oriented x 3, not in distress, speaks in sentences with no effort or accessory muscle use Eyes- anicteric Neck- no JVD Lungs- clear BS BL, no rales or wheezing Heart- normal rate, regular rhythm; no murmurs Abdomen- normal bowel sounds, nondistended, soft, nontender Extremities- no pretibial edema, no calf tenderness Left hip-dressing in place Mild edema, but no erythema/hematoma/tenderness Neuro- alert, oriented x 3; no gross focal neurologic deficits Skin- warm & dry Discharge Data Allergies Allergy/AdvReac Type Severity Reaction Status Date / Time No Known Allergies Allergy Verified 09/22/22 01:49 Consultations 09/22/22 02:28 ED Decision to Admit Stat 09/22/22 08:00 Consult Nephrology Routine Consult Orthopedic Surgery Routine Procedures Performed Operation Date: 09/26/22 10:00 Actual Procedures p Left hip cephalomedullary nailing of intertrochanteric femur fracture(Left) - Elijah Gtz M.D. Ordered Studies 09/22/22 01:11 CT head/brain wo con Stat CT hip LT wo con Stat 09/22/22 14:52 CT Abd and Pelvis [CT abd pelvis wo con] Stat 09/26/22 FL hip LT 2-3V Routine Hospital Course (1) Intertrochanteric fracture of left femur: (2) Alcoholism: (3) Hyponatremia: Plan Patient is a 62-year-old male with history of alcoholism who presented to the hospital after mechanical fall. He was managed for following conditions; Left hip fracture: Status post nailing of intertrochanteric femur fracture September 26, 2022 Toe-touch weightbearing Stable overall postop Pain control Discharged to rehab on 30 more days of Lovenox for DVT prophylaxis. Pain control with Tylenol and oxycodone. Hyponatremia: Euvolemic hypotonic hyponatremia Likely secondary to alcohol intake Admission sodium 126 Nephrology consulted during the hospitalization; sodium up trended to 133 with fluid restriction. Discharged on fluid restriction. Alcoholism: Admitted with alcohol intoxication, alcohol level in the 300s Placed on alcohol withdrawal protocol including gabapentin deep No signs of alcohol withdrawal, delirium tremens during the hospitalization Total Time Total Time Spent Total Time Spent (In Minutes): 40 Total Time Includes: Examination of the Patient, Discharge Planning, Medication Reconciliation, Communication With Other Providers and Other Discharge Plan Discharge Items Patient Disposition: Transfer Half-Way Fac Reason For Visit: FALL, ALCOHOLISM Discharge Diagnosis: Left hip intertrochanteric femur fracture Activity: Resume your previous activity Non-emergency contact: Surgeon Call non-emergency contact if: your pain is not controlled, your temperature is above 101.5, your wound has increased redness and your wound has increased drainage Follow-up/Referrals: Liyah Oseguera MD [Primary Care Provider] - Elijah Gtz M.D. [Physician] - Diet: Regular Addtl Attending Provider Instructions: You are prescribed following medications: 1) Tylenol as needed for mild pain. oxycodone 5mg as needed for every 8 hours for severe pain. 2) Sc Lovenox 40mg once daily for 30 days. 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 -Call the orthopedics clinic immediately if you have a sudden increase in the amount of wound drainage or the drainage becomes thick, yellow or green, or foul-smelling. -For routine questions regarding your hip surgery, call the orthopedics clinic at [phone] during regular business hours (8am-5pm). For urgent issues after regular business hours, you may call the clinic to be connected to the on-call physician. Dressings -Keep your dressings clean, dry, and in place for 4 days after surgery. After 4 days postoperatively, you may remove the dressing and cover the incisions with new clean dressings. Be sure to wash your hands thoroughly before touching your incisions. Apply a new dressing daily thereafter. -You may begin showering after your first dressing change (4 days after surgery). You may let the water run BRIEFLY over the incisions, but do not soak the incisions in the bathtub or pool for 2 weeks. You may also gently clean the incisions with mild soap and water; pat the incision dry after cleaning-do not rub the incisions. -You may use an antibiotic ointment (Bacitracin, Polysporin) if desired, but this is not necessary. Weight Bearing -You need to remain toe-touch weight bearing on your operative leg. You may rest the weight of your foot on the ground, but do not put any body weight through that leg. Use a walker for support and balance. Followup -You will need to follow-up with Dr. Gtz in orthopedic surgery clinic 10- 14 days after surgery. Please call [facility] at [phone] to make an appointment. Pending Studies at Discharge: No Stand-Alone Forms: My [facility] Skilled Items Patient informed of condition?: Yes DNR: No Discharge Level of Care: Skilled Communicable Disease: No Discharge Prognosis: Stable Lines: None Urinary Catheter: No Medications and DC Order Prescriptions: New acetaminophen 325 mg Tablet 650 mg PO Q4H PRN (Reason: pain) Qty: 30 0RF carvedilol 3.125 mg Tablet 3.125 mg PO BIDM Qty: 60 0RF duloxetine [Cymbalta] 20 mg Capsule,Delayed Release(Dr/Ec) 20 mg PO QAM Qty: 30 0RF metformin 500 mg tablet extended release 24 hr 500 mg PO BID Qty: 60 0RF enoxaparin [Lovenox] 40 mg/0.4 mL syringe 40 mg subcut DAILY 30 Days Qty: 12 0RF oxycodone 5 mg capsule 5 mg PO Q8H PRN (Reason: pain) Qty: 7 0RF thiamine HCl (vitamin B1) 100 mg tablet 100 mg PO DAILY Qty: 30 0RF folic acid 1 mg tablet 1,000 mcg PO DAILY Qty: 30 0RF Continued multivitamin Tablet 1 tab PO DAILY (DME) blood-glucose meter [OneTouch Verio Meter] [facility] [place] See Rx Instructions .Route Qty: 1 0RF Rx Instructions: As directed (DME) OneTouch Verio test strips Strip See Rx Instructions .Route Qty: 50 0RF Rx Instructions: As directed (DME) lancets [OneTouch Delica Lancets] [facility] See Rx Instructions .Route Qty: 100 0RF Rx Instructions: As directed Discharge Orders: Discharge Order (Routine); Ordered 09/29/22 Ordered By: Jose Cruz Tucker/Other Patient Handouts: Managing Type 2 Diabetes Admission Data Admit Date/Time: 09/22/22 04:01 Attending Provider: Jose Cruz Jama Admit Provider: Everette Salcedo Primary Care Provider: Liyah Oseguera Other Providers: Sumit Murry ; [facility] ; Everette Salcedo ; Ivanna House ; Kory Murphy ; Robinson Kim ; Jody Blackwell ; Rolando Zeng ; Sandy Davis ; Cornelius Quinn ; Peter Otoole ; Terence Echols ; Fernandez Godoy ; Peter Fry ; Robert Linares ; Waqas Chowdary ; Rayo Aguero ; Colin Bustamante ; Sandy Reynolds ; Carlo Roche ; Elijah Gtz ; Shanel Jurado ; Jr Hernandez ; Carmelo Schulz ; Radha Thurman ; Bj Ndiaye ; Marguerite Ramos ; Lino Red Other Interventions: Discharge Summary Assessment (RN) Last Done: 09/29/22 13:42
== END 2022-09-29 14:25 | DRG 480 ==
LOC: ED 23:40 → EDINP 09-22 04:01 → SUATTDRO 09-22 04:01 → 2W 09-22 04:18

== ENCOUNTER 2023-02-11 08:10 | Inpatient (IN) ==
[2023-02-11] MEDS ORDERED: SODIUM CHLORIDE 0.9% 1,000 ML IV STA (08:19)
--- NOTE | 2023-02-11 08:34 | Emergency Department Note ---
Impression & Plan DKA (diabetic ketoacidosis), Diabetes mellitus, new onset, AMS (altered mental status), Metabolic encephalopathy ED Provider Note NAME: ETHAN STEWART AGE: 62 SEX: M : 1960 ARRIVES VIA: Ambulance INFORMANT: Patient, EMS ED PROVIDER(S): Kevin Phillips DO CHIEF COMPLAINT: Altered mental status HPI: The patient is a 62-year-old male who presented to the emergency department for an evaluation of altered renal status. Patient has a history of alcohol use as well as pancreatitis. The patient has a friend who called 911 because he f elt the patient was confused more than usual. He was found to have an elevated blood sugar prior to arrival. The patient himself does not give much history and does not answer questions appropriately at this time. ROS: See above HPI for pertinent positives & negatives. A total of 10 systems reviewed and were otherwise negative. PAST MEDICAL HISTORY: See Below PAST SURGICAL HISTORY: See Below FAMILY HISTORY: See Below SOCIAL HISTORY: See Below HOME MEDICATIONS: See Below ALLERGIES: See Below VITALS: See Below PHYSICAL EXAMINATION: GENERAL: The patient is listless. He is slow to answer questions. The patient does not follow commands appropriately. EYES: The conjunctivae are clear. The pupils are round and reactive. EARS, NOSE, MOUTH AND THROAT: The nose is without any evidence of any deformity. Mucous membranes are dry. NECK: The neck is nontender and supple. RESPIRATORY: Shallow respirations were noted. There were no rales rhonchi or wheezing. CARDIOVASCULAR: Regular rate and rhythm noted there no murmurs rubs or gallops normal S1 normal S2. GASTROINTESTINAL: The abdomen is soft. Abdomen is nontender. MUSCULOSKELETAL/EXTREMITIES: There is no evidence of gross deformity full range of motion is noted in the hips and shoulders. Lower extremity amputation was noted. SKIN: There is no obvious evidence of any rash. Skin is dry. NEUROLOGIC: Patient is awake to verbal commands. He does not follow commands well and I cannot assess orientation at this time. MEDICAL DECISION MAKING: The patient is a 62-year-old male who presented to the emergency department for altered mental status. The patient has a history of alcohol abuse in the past. He presented to the emergency department for evaluation. The patient was found to have an elevated blood sugar prior to arrival. He was treated with multiple doses of IV fluids in the emergency department. He was also started on an insulin drip when blood sugar came back extremely high. He was acidotic. Bicarb is still acceptable. I discussed the patient's laboratory and radiographic studies with the [facility]. They have agreed to eren luate the patient for further management and disposition. Triage Nursing notes reviewed. Prior medical records reviewed Vital Signs: reviewed and remarkable for elevated blood pressure. Differential diagnosis: Infection, hypoglycemia, electrolyte abnormalities, overdose, toxicologic, cardiac sources, intracerebral event, neurologic, trauma, as well as other pathologies. ER treatment provided: See below Diagnostics interpreted by me: ECG: EKG was obtained in the emergency department. My interpretation is sinus tachycardia at 103 bpm. There is no ectopy. Nonspecific ST segment abnormalities were noted. This was compared to a tracing from September 22, 2022. No specific changes were noted. Cardiac Monitoring: An order was placed for continuous cardiac monitoring. The monitor shows a rate of 83 bpm with sinus rhythm. Laboratory studies: As stated above and show below. Imaging studies: See below. Radiographic imaging was reviewed by myself Consultation(s): I discussed this case with the [facility]ist group. ED COURSE: Procedures: none Critical Care: I have personally spent greater than 45 minutes of critical care time in the direct management of this patient. This includes bedside care, interpretation of diagnostic studies, and testing, discussion with consultants, patient, and family members, and other required patient management activities. This 45 minutes is in excess of all separately billable procedures. Past Med/Surg History Medical History Alcohol dependence a fifth of liquor and 12 beers daily for yrs. Depression Diabetes mellitus type 2 in nonobese GERD (gastroesophageal reflux disease) HLD (hyperlipidemia) HTN (hypertension) Hx of hematuria Hx of pancreatitis Obesity Pancreatitis, recurrent Phantom pain after amputation of lower extremity Tobacco abuse Surgical History Complete below knee amputation of right lower extremity History of mandibular surgery [facility] 1978 History of tooth extraction ALL TEETH REMOVED Hx of right BKA 2013 s/p fracture of tibia/fibula with associated infection Family History Sister Family history of diabetes mellitus Brother Pancreatic carcinoma Social History Smoking Status: Current every day smoker Tobacco Type: Cigarettes Cigarettes Per Day: 10; Second Hand Exposure: No; Do You Dip or Chew Tobacco: No; Tobacco Cessation Education Requested by Patient: No Hx Alcohol Use: Yes Alcohol type: beer and hard liquor Alcohol Intake Frequency: 4 or More x per/Week Alcohol Intake Frequency Comment: 6 pack of beer + daily Hx Substance Use: Yes Last Used Substance: Days (ago) Preferred Language: Greenlandic Communication Ability: Effective Medical Voucher Clerk Required: No Beliefs That Will Affect Care: None marital status: Single Current Living Situation: Jail Current Living Situation Comment: lives with roomate Other Information That Helps Us Care for You: No Feels Safe at Home: Yes Safety Concerns: Feels Safe At This Time Assistive Devices: Cane and Prosthesis Allergies Allergies Allergy/AdvReac Type Severity Reaction Status Date / Time No Known Allergies Allergy Verified 09/22/22 01:49 Home Meds Home Medications Medication Instructions Recorded Confirmed multivitamin 1 tab PO DAILY 09/22/22 02/11/23 clonidine HCl 0.1 mg tablet 0.1 mg PO BID 02/11/23 02/11/23 empagliflozin 10 mg tablet 10 mg PO DAILY 02/11/23 02/11/23 (Jardiance) gabapentin 300 mg capsule 300 mg PO DAILY 02/11/23 02/11/23 lisinopril 20 mg tablet 20 mg PO DAILY 02/11/23 02/11/23 magnesium oxide 400 mg (241.3 mg 400 mg PO QAM 02/11/23 02/11/23 magnesium) tablet potassium chloride 20 mEq oral 20 meq PO BID 02/11/23 02/11/23 packet Previous Rx's Medication Instructions Recorded blood sugar diagnostic (Bitcoin BrothersTouch #50 ea 05/03/22 Verio test strips) blood-glucose meter (OneTouch #1 ea 05/03/22 Verio Meter) lancets 33 gauge (OneTouch Delica #100 ea 05/03/22 Lancets) acetaminophen 325 mg tablet 650 mg PO Q4H PRN pain #30 tabs 09/29/22 carvedilol 3.125 mg tablet 3.125 mg PO BIDM #60 tabs 09/29/22 duloxetine 20 mg capsule,delayed 20 mg PO QAM #30 caps 04/12/23 release (Cymbalta) folic acid 1 mg tablet 1,000 mcg PO DAILY #30 tabs 09/29/22 metformin 500 mg tablet,extended 500 mg PO BID #60 tabs 09/29/22 release 24 hr thiamine HCl (vitamin B1) 100 mg 100 mg PO DAILY #30 tabs 09/29/22 tablet Results & Data (ED) Vital Signs Vital Signs - 24 hr 02/11/23 08:15 02/11/23 08:24 02/11/23 08:51 Temperature 36.8 C Temperature Source Oral Pulse Rate 104 H 105 H Pulse Rate from SpO2 Sensor Pulse Rhythm Regular Pulse Strength Normal Respiratory Rate 26 H Respiratory Effort / Characteristics Non-Labored Respiratory Depth Normal Respiratory Pattern Regular Blood Pressure 142/87 H Blood Pressure Mean 105 Blood Pressure Position Sitting Pulse Oximetry 92 93 Oxygen Delivery Method Room Air Room Air Oxygen Flow Rate Sepsis Recent Fever Within 48 Hours No Sepsis New/Unexplained Change in Mental Status No Sepsis Action Taken by Nursing Physician Notified 02/11/23 08:30 02/11/23 09:02 02/11/23 09:30 Temperature Temperature Source Pulse Rate 101 H 95 H 89 Pulse Rate from SpO2 Sensor 101 H 96 H 90 Pulse Rhythm Pulse Strength Respiratory Rate 24 27 H 26 H Respiratory Effort / Characteristics Respiratory Depth Respiratory Pattern Blood Pressure 152/90 H 141/91 H 142/104 H Blood Pressure Mean 110 107 116 Blood Pressure Position Pulse Oximetry 95 93 100 Oxygen Delivery Method Room Air Room Air Nasal Cannula Oxygen Flow Rate 2 Sepsis Recent Fever Within 48 Hours Sepsis New/Unexplained Change in Mental Status Sepsis Action Taken by Nursing 02/11/23 10:00 02/11/23 10:30 02/11/23 10:40 Temperature Temperature Source Pulse Rate 90 84 87 Pulse Rate from SpO2 Sensor 89 87 Pulse Rhythm Pulse Strength Respiratory Rate 20 26 H 16 Respiratory Effort / Characteristics Respiratory Depth Respiratory Pattern Blood Pressure 147/97 H 152/99 H Blood Pressure Mean 113 116 Blood Pressure Position Pulse Oximetry 100 93 93 Oxygen Delivery Method Nasal Cannula Room Air Oxygen Flow Rate 2 Sepsis Recent Fever Within 48 Hours Sepsis New/Unexplained Change in Mental Status Sepsis Action Taken by Nursing 02/11/23 10:50 02/11/23 11:00 02/11/23 11:00 Temperature Temperature Source Pulse Rate 82 87 Pulse Rate from SpO2 Sensor 83 87 Pulse Rhythm Pulse Strength Respiratory Rate 20 20 Respiratory Effort / Characteristics Respiratory Depth Respiratory Pattern Blood Pressure 148/96 H Blood Pressure Mean 111 Blood Pressure Position Pulse Oximetry 95 93 Oxygen Delivery Method Oxygen Flow Rate Sepsis Recent Fever Within 48 Hours Sepsis New/Unexplained Change in Mental Status Sepsis Action Taken by Nursing 02/11/23 11:10 02/11/23 11:20 Temperature Temperature Source Pulse Rate 87 85 Pulse Rate from SpO2 Sensor 87 86 Pulse Rhythm Pulse Strength Respiratory Rate 22 16 Respiratory Effort / Characteristics Respiratory Depth Respiratory Pattern Blood Pressure Blood Pressure Mean Blood Pressure Position Pulse Oximetry 94 95 Oxygen Delivery Method Oxygen Flow Rate Sepsis Recent Fever Within 48 Hours Sepsis New/Unexplained Change in Mental Status Sepsis Action Taken by Jail Medications Current Medication List: was personally reviewed by ak Laboratory Data Attestation: I reviewed the patient's lab results. 02/11/23 08:20 02/11/23 08:20 Lab Results 02/11/23 02/11/23 02/11/23 Range/Units 08:15 08:20 08:20 WBC (4.8-10.8) K/ul RBC (4.70-6.10) M/uL Hgb (14.0-18.0) g/dl Hct (42.0-52.0) % MCV (80.0-100.0) fL MCH (25.0-34.0) pg MCHC (32.0-36.0) g/dL RDW Std Deviation (36.4-46.3) fL RDW Coeff of Miguel (11.5-14.5) % Plt Count (130-400) K/uL MPV (9.4-12.4) fL Immature Gran % (Auto) % Neut % (Auto) % Lymph % (Auto) % [place] % (Auto) % Eos % (Auto) % Baso % (Auto) % Neut # (Auto) (1.40-6.50) K/uL Lymph # (Auto) (1.20-3.40) K/uL [place] # (Auto) (0.11-0.59) K/uL Eos # (Auto) (0.00-0.50) K/uL Baso # (Auto) (0.00-0.20) K/uL Immature Gran # (Auto) (0.01-0.20) K/uL PT 10.7 (9.0-12.0) Seconds INR 1.0 (0.9-1.1) APTT 23.9 (21.0-31.0) Seconds PTT Ratio 0.8 ABG pH (7.35-7.45) ABG pCO2 (35-46) mmHg ABG pO2 (80-95) mmHg ABG HCO3 (19-24) mmol/L ABG O2 Saturation (90-95) % ABG Base Excess (-9-1.8) mEq/L Slava Test (Pos) VBG pH (7.36-7.41) VBG pCO2 (38-50) mmHg VBG pO2 mmHg VBG HCO3 mmol/L VBG O2 Saturation % VBG Base Excess mEq/L Oxygen Given Sodium (136-145) mmol/L Potassium (3.5-5.1) mmol/L Chloride (98-107) mmol/L Carbon Dioxide (21-32) mmol/L Anion Gap (3-11) BUN (6-23) mg/dl Creatinine (0.6-1.4) mg/dl Est Cr Clr Drug Dosing ml/min Est GFR ( Amer) ml/min Est GFR (Non-Af Amer) ml/min BUN/Creatinine Ratio (10-20) Glucose (70-99(Fasting)) mg/dl POC Glucose > 600 H* (70-99) mg/dl Osmolality (280-300) mOsm/kg Lactate 4.4 H* (0.4-2.0) mmol/L Calcium (8.6-10.3) mg/dl Total Bilirubin (0.2-1.0) mg/dl AST (13-39) U/L ALT (7-52) U/L Alkaline Phosphatase (34-104) U/L Ammonia (18-72) umol/L Troponin I High Sens (0-20) pg/ml Total Protein (6.0-8.3) gm/dl Albumin (3.4-5.0) gm/dl Globulin (2.5-4.0) gm/dl Albumin/Globulin Ratio (0.9-2) Lipase (11-82) U/L Urine Color Urine Appearance (Clear) Urine pH (4.5-7.5) Ur Specific [place] (1.000-1.030) Urine Protein (Negative) Urine Glucose (UA) (Negative) Urine Ketones (Negative) Urine Blood (Negative) Urine Nitrite (Negative) Urine Bilirubin (Negative) Urine Urobilinogen (Negative) Ur Leukocyte Esterase (Negative) Urine Opiates Screen (Neg) Ur Methadone, Qual (Neg) Urine Barbiturates (Neg) Ur Phencyclidine (PCP) (Neg) U Amphetamin/Meth Scrn (Neg) MDMA (Ecstasy) Screen (Neg) U Benzodiazepines Scrn (Neg) Ur Cocaine Metabolite (Neg) U Marijuana (THC) Screen (Neg) Ethyl Alcohol mg/dL (<10.0) mg/dl 02/11/23 02/11/23 02/11/23 Range/Units 08:20 08:20 08:20 WBC 4.68 L (4.8-10.8) K/ul RBC 3.89 L (4.70-6.10) M/uL Hgb 11.0 L (14.0-18.0) g/dl Hct 36.7 L (42.0-52.0) % MCV 94.3 (80.0-100.0) fL MCH 28.3 (25.0-34.0) pg MCHC 30.0 L (32.0-36.0) g/dL RDW Std Deviation 47.2 H (36.4-46.3) fL RDW Coeff of Miguel 13.8 (11.5-14.5) % Plt Count 164 (130-400) K/uL MPV 11.5 (9.4-12.4) fL Immature Gran % (Auto) 0.6 % Neut % (Auto) 68.2 % Lymph % (Auto) 10.5 % [place] % (Auto) 20.5 % Eos % (Auto) 0.0 % Baso % (Auto) 0.2 % Neut # (Auto) 3.19 (1.40-6.50) K/uL Lymph # (Auto) 0.49 L (1.20-3.40) K/uL [place] # (Auto) 0.96 H (0.11-0.59) K/uL Eos # (Auto) 0.00 (0.00-0.50) K/uL Baso # (Auto) 0.01 (0.00-0.20) K/uL Immature Gran # (Auto) 0.03 (0.01-0.20) K/uL PT (9.0-12.0) Seconds INR (0.9-1.1) APTT (21.0-31.0) Seconds PTT Ratio ABG pH (7.35-7.45) ABG pCO2 (35-46) mmHg ABG pO2 (80-95) mmHg ABG HCO3 (19-24) mmol/L ABG O2 Saturation (90-95) % ABG Base Excess (-9-1.8) mEq/L Slava Test (Pos) VBG pH (7.36-7.41) VBG pCO2 (38-50) mmHg VBG pO2 mmHg VBG HCO3 mmol/L VBG O2 Saturation % VBG Base Excess mEq/L Oxygen Given Sodium 115 L* (136-145) mmol/L Potassium 4.3 (3.5-5.1) mmol/L Chloride 74 L (98-107) mmol/L Carbon Dioxide 22 (21-32) mmol/L Anion Gap 19 H (3-11) BUN 23 (6-23) mg/dl Creatinine 1.75 H (0.6-1.4) mg/dl Est Cr Clr Drug Dosing 40.5 ml/min Est GFR ( Amer) 48.0 ml/min Est GFR (Non-Af Amer) 41.4 ml/min BUN/Creatinine Ratio 13.1 (10-20) Glucose 1819 H* (70-99(Fasting)) mg/dl POC Glucose (70-99) mg/dl Osmolality (280-300) mOsm/kg Lactate (0.4-2.0) mmol/L Calcium 9.8 (8.6-10.3) mg/dl Total Bilirubin 1.3 H (0.2-1.0) mg/dl AST 8 L (13-39) U/L ALT 16 (7-52) U/L Alkaline Phosphatase 193 H (34-104) U/L Ammonia 22.0 (18-72) umol/L Troponin I High Sens 8.9 (0-20) pg/ml Total Protein 8.1 (6.0-8.3) gm/dl Albumin 4.5 (3.4-5.0) gm/dl Globulin 3.6 (2.5-4.0) gm/dl Albumin/Globulin Ratio 1.3 (0.9-2) Lipase 42 (11-82) U/L Urine Color Urine Appearance (Clear) Urine pH (4.5-7.5) Ur Specific [place] (1.000-1.030) Urine Protein (Negative) Urine Glucose (UA) (Negative) Urine Ketones (Negative) Urine Blood (Negative) Urine Nitrite (Negative) Urine Bilirubin (Negative) Urine Urobilinogen (Negative) Ur Leukocyte Esterase (Negative) Urine Opiates Screen (Neg) Ur Methadone, Qual (Neg) Urine Barbiturates (Neg) Ur Phencyclidine (PCP) (Neg) U Amphetamin/Meth Scrn (Neg) MDMA (Ecstasy) Screen (Neg) U Benzodiazepines Scrn (Neg) Ur Cocaine Metabolite (Neg) U Marijuana (THC) Screen (Neg) Ethyl Alcohol mg/dL (<10.0) mg/dl 02/11/23 02/11/23 02/11/23 Range/Units 08:20 08:20 09:19 WBC (4.8-10.8) K/ul RBC (4.70-6.10) M/uL Hgb (14.0-18.0) g/dl Hct (42.0-52.0) % MCV (80.0-100.0) fL MCH (25.0-34.0) pg MCHC (32.0-36.0) g/dL RDW Std Deviation (36.4-46.3) fL RDW Coeff of Miguel (11.5-14.5) % Plt Count (130-400) K/uL MPV (9.4-12.4) fL Immature Gran % (Auto) % Neut % (Auto) % Lymph % (Auto) % [place] % (Auto) % Eos % (Auto) % Baso % (Auto) % Neut # (Auto) (1.40-6.50) K/uL Lymph # (Auto) (1.20-3.40) K/uL [place] # (Auto) (0.11-0.59) K/uL Eos # (Auto) (0.00-0.50) K/uL Baso # (Auto) (0.00-0.20) K/uL Immature Gran # (Auto) (0.01-0.20) K/uL PT (9.0-12.0) Seconds INR (0.9-1.1) APTT (21.0-31.0) Seconds PTT Ratio ABG pH (7.35-7.45) ABG pCO2 (35-46) mmHg ABG pO2 (80-95) mmHg ABG HCO3 (19-24) mmol/L ABG O2 Saturation (90-95) % ABG Base Excess (-9-1.8) mEq/L Slava Test (Pos) VBG pH (7.36-7.41) VBG pCO2 (38-50) mmHg VBG pO2 mmHg VBG HCO3 mmol/L VBG O2 Saturation % VBG Base Excess mEq/L Oxygen Given Sodium (136-145) mmol/L Potassium (3.5-5.1) mmol/L Chloride (98-107) mmol/L Carbon Dioxide (21-32) mmol/L Anion Gap (3-11) BUN (6-23) mg/dl Creatinine (0.6-1.4) mg/dl Est Cr Clr Drug Dosing ml/min Est GFR ( Amer) ml/min Est GFR (Non-Af Amer) ml/min BUN/Creatinine Ratio (10-20) Glucose (70-99(Fasting)) mg/dl POC Glucose (70-99) mg/dl Osmolality 373 H* (280-300) mOsm/kg Lactate (0.4-2.0) mmol/L Calcium (8.6-10.3) mg/dl Total Bilirubin (0.2-1.0) mg/dl AST (13-39) U/L ALT (7-52) U/L Alkaline Phosphatase (34-104) U/L Ammonia (18-72) umol/L Troponin I High Sens (0-20) pg/ml Total Protein (6.0-8.3) gm/dl Albumin (3.4-5.0) gm/dl Globulin (2.5-4.0) gm/dl Albumin/Globulin Ratio (0.9-2) Lipase (11-82) U/L Urine Color Urine Appearance (Clear) Urine pH (4.5-7.5) Ur Specific [place] (1.000-1.030) Urine Protein (Negative) Urine Glucose (UA) (Negative) Urine Ketones (Negative) Urine Blood (Negative) Urine Nitrite (Negative) Urine Bilirubin (Negative) Urine Urobilinogen (Negative) Ur Leukocyte Esterase (Negative) Urine Opiates Screen Neg (Neg) Ur Methadone, Qual Neg (Neg) Urine Barbiturates Neg (Neg) Ur Phencyclidine (PCP) Neg (Neg) U Amphetamin/Meth Scrn Neg (Neg) MDMA (Ecstasy) Screen Neg (Neg) U Benzodiazepines Scrn Neg (Neg) Ur Cocaine Metabolite Neg (Neg) U Marijuana (THC) Screen Neg (Neg) Ethyl Alcohol mg/dL < 10.0 (<10.0) mg/dl 02/11/23 02/11/23 02/11/23 Range/Units 09:19 09:50 10:48 WBC (4.8-10.8) K/ul RBC (4.70-6.10) M/uL Hgb (14.0-18.0) g/dl Hct (42.0-52.0) % MCV (80.0-100.0) fL MCH (25.0-34.0) pg MCHC (32.0-36.0) g/dL RDW Std Deviation (36.4-46.3) fL RDW Coeff of Miguel (11.5-14.5) % Plt Count (130-400) K/uL MPV (9.4-12.4) fL Immature Gran % (Auto) % Neut % (Auto) % Lymph % (Auto) % [place] % (Auto) % Eos % (Auto) % Baso % (Auto) % Neut # (Auto) (1.40-6.50) K/uL Lymph # (Auto) (1.20-3.40) K/uL [place] # (Auto) (0.11-0.59) K/uL Eos # (Auto) (0.00-0.50) K/uL Baso # (Auto) (0.00-0.20) K/uL Immature Gran # (Auto) (0.01-0.20) K/uL PT (9.0-12.0) Seconds INR (0.9-1.1) APTT (21.0-31.0) Seconds PTT Ratio ABG pH 7.29 L (7.35-7.45) ABG pCO2 49 H (35-46) mmHg ABG pO2 76 L (80-95) mmHg ABG HCO3 24 (19-24) mmol/L ABG O2 Saturation 95.8 H (90-95) % ABG Base Excess -3.4 (-9-1.8) mEq/L Slava Test Pos (Pos) VBG pH 7.23 L (7.36-7.41) VBG pCO2 62 H (38-50) mmHg VBG pO2 49 mmHg VBG HCO3 26 mmol/L VBG O2 Saturation 74.6 % VBG Base Excess -2.8 mEq/L Oxygen Given FLOW RATE 2 Sodium (136-145) mmol/L Potassium (3.5-5.1) mmol/L Chloride (98-107) mmol/L Carbon Dioxide (21-32) mmol/L Anion Gap (3-11) BUN (6-23) mg/dl Creatinine (0.6-1.4) mg/dl Est Cr Clr Drug Dosing ml/min Est GFR ( Amer) ml/min Est GFR (Non-Af Amer) ml/min BUN/Creatinine Ratio (10-20) Glucose (70-99(Fasting)) mg/dl POC Glucose (70-99) mg/dl Osmolality (280-300) mOsm/kg Lactate (0.4-2.0) mmol/L Calcium (8.6-10.3) mg/dl Total Bilirubin (0.2-1.0) mg/dl AST (13-39) U/L ALT (7-52) U/L Alkaline Phosphatase (34-104) U/L Ammonia (18-72) umol/L Troponin I High Sens (0-20) pg/ml Total Protein (6.0-8.3) gm/dl Albumin (3.4-5.0) gm/dl Globulin (2.5-4.0) gm/dl Albumin/Globulin Ratio (0.9-2) Lipase (11-82) U/L Urine Color Yellow Urine Appearance Clear (Clear) Urine pH 5.0 (4.5-7.5) Ur Specific [place] 1.032 H (1.000-1.030) Urine Protein Negative (Negative) Urine Glucose (UA) 3+ H (Negative) Urine Ketones Trace H (Negative) Urine Blood Negative (Negative) Urine Nitrite Negative (Negative) Urine Bilirubin Negative (Negative) Urine Urobilinogen Negative (Negative) Ur Leukocyte Esterase Negative (Negative) Urine Opiates Screen (Neg) Ur Methadone, Qual (Neg) Urine Barbiturates (Neg) Ur Phencyclidine (PCP) (Neg) U Amphetamin/Meth Scrn (Neg) MDMA (Ecstasy) Screen (Neg) U Benzodiazepines Scrn (Neg) Ur Cocaine Metabolite (Neg) U Marijuana (THC) Screen (Neg) Ethyl Alcohol mg/dL (<10.0) mg/dl 02/11/23 Range/Units 10:59 WBC (4.8-10.8) K/ul RBC (4.70-6.10) M/uL Hgb (14.0-18.0) g/dl Hct (42.0-52.0) % MCV (80.0-100.0) fL MCH (25.0-34.0) pg MCHC (32.0-36.0) g/dL RDW Std Deviation (36.4-46.3) fL RDW Coeff of Miguel (11.5-14.5) % Plt Count (130-400) K/uL MPV (9.4-12.4) fL Immature Gran % (Auto) % Neut % (Auto) % Lymph % (Auto) % [place] % (Auto) % Eos % (Auto) % Baso % (Auto) % Neut # (Auto) (1.40-6.50) K/uL Lymph # (Auto) (1.20-3.40) K/uL [place] # (Auto) (0.11-0.59) K/uL Eos # (Auto) (0.00-0.50) K/uL Baso # (Auto) (0.00-0.20) K/uL Immature Gran # (Auto) (0.01-0.20) K/uL PT (9.0-12.0) Seconds INR (0.9-1.1) APTT (21.0-31.0) Seconds PTT Ratio ABG pH (7.35-7.45) ABG pCO2 (35-46) mmHg ABG pO2 (80-95) mmHg ABG HCO3 (19-24) mmol/L ABG O2 Saturation (90-95) % ABG Base Excess (-9-1.8) mEq/L Slava Test (Pos) VBG pH (7.36-7.41) VBG pCO2 (38-50) mmHg VBG pO2 mmHg VBG HCO3 mmol/L VBG O2 Saturation % VBG Base Excess mEq/L Oxygen Given Sodium (136-145) mmol/L Potassium (3.5-5.1) mmol/L Chloride (98-107) mmol/L Carbon Dioxide (21-32) mmol/L Anion Gap (3-11) BUN (6-23) mg/dl Creatinine (0.6-1.4) mg/dl Est Cr Clr Drug Dosing ml/min Est GFR ( Amer) ml/min Est GFR (Non-Af Amer) ml/min BUN/Creatinine Ratio (10-20) Glucose (70-99(Fasting)) mg/dl POC Glucose > 600 H* (70-99) mg/dl Osmolality (280-300) mOsm/kg Lactate (0.4-2.0) mmol/L Calcium (8.6-10.3) mg/dl Total Bilirubin (0.2-1.0) mg/dl AST (13-39) U/L ALT (7-52) U/L Alkaline Phosphatase (34-104) U/L Ammonia (18-72) umol/L Troponin I High Sens (0-20) pg/ml Total Protein (6.0-8.3) gm/dl Albumin (3.4-5.0) gm/dl Globulin (2.5-4.0) gm/dl Albumin/Globulin Ratio (0.9-2) Lipase (11-82) U/L Urine Color Urine Appearance (Clear) Urine pH (4.5-7.5) Ur Specific [place] (1.000-1.030) Urine Protein (Negative) Urine Glucose (UA) (Negative) Urine Ketones (Negative) Urine Blood (Negative) Urine Nitrite (Negative) Urine Bilirubin (Negative) Urine Urobilinogen (Negative) Ur Leukocyte Esterase (Negative) Urine Opiates Screen (Neg) Ur Methadone, Qual (Neg) Urine Barbiturates (Neg) Ur Phencyclidine (PCP) (Neg) U Amphetamin/Meth Scrn (Neg) MDMA (Ecstasy) Screen (Neg) U Benzodiazepines Scrn (Neg) Ur Cocaine Metabolite (Neg) U Marijuana (THC) Screen (Neg) Ethyl Alcohol mg/dL (<10.0) mg/dl Administered Medications Insulin Human Regular 250 (units/ Sodium Chloride) 250 mls @ 6.5 mls/hr IV .Q24H [facility]; Protocol Stop: 03/13/23 09:59 Last Admin: 08/25/23 10:54 Dose: 6.5 units/hr, 6.5 mls/hr Documented By: NH Co-signed By: TIERA Discontinued Medications Sodium Chloride (Nss 1000ml) 1,000 mls @ 999 mls/hr IV .Q1H1M STA Stop: 02/11/23 09:19 Last Infusion: 02/11/23 09:21 Dose: 0 mls/hr Documented By: Admin: 02/11/23 08:15 Dose: 999 mls/hr Documented By: NH Sodium Chloride (Nss 1000ml) 1,000 mls @ 999 mls/hr IV .Q1H1M ONE Stop: 02/11/23 09:47 Last Infusion: 02/11/23 11:04 Dose: 0 mls/hr Documented By: Admin: 02/11/23 08:47 Dose: 999 mls/hr Documented By: NH Sodium Chloride (Nss 1000ml) 1,000 mls @ 999 mls/hr IV .Q1H1M ONE Stop: 02/11/23 10:47 Last Infusion: 02/11/23 11:04 Dose: 0 mls/hr Documented By: Admin: 02/11/23 09:47 Dose: 999 mls/hr Documented By: NH Ceftriaxone Sodium (Rocephin) 2,000 mg in 70 mls @ 140 mls/hr IV NOW STA Stop: 02/11/23 10:52 Last Infusion: 02/11/23 11:04 Dose: 0 mls/hr Documented By: Admin: 02/11/23 10:31 Dose: 140 mls/hr Documented By: NH Potassium Chloride (K Lalo / Wtr) 10 meq in 100 mls @ 100 mls/hr IV Q1H RONEY Stop: 02/11/23 13:29 Last Admin: 02/11/23 13:43 Dose: 100 mls/hr Documented By: Infusion: 02/11/23 13:21 Dose: 100 mls/hr Documented By: Admin: 02/11/23 12:21 Dose: 100 mls/hr Documented By: QUE Potassium Chloride 40 meq/ (Parenteral Electrolytes) 1,020 mls @ 250 mls/hr IV .Q4H5M RONEY Stop: 02/11/23 15:34 Last Admin: 02/11/23 13:44 Dose: 250 mls/hr Documented By: KYLE Insulin Aspart (Insulin Aspart Per Unit Charge) 0 units SC ACHS RONEY Stop: 03/13/23 11:29 Last Admin: 02/11/23 12:33 Dose: Not Given Documented By: QUE Miscellaneous (Stat Insulin Drip) 1 each N/A NOW STA Stop: 02/11/23 09:48 Last Admin: 02/11/23 11:04 Dose: 1 each Documented By: AXEL Miscellaneous (Dka Goal Range 150-250 Mg/Dl) 1 each N/A ONE ONE Stop: 02/11/23 09:48 Last Admin: 02/11/23 11:04 Dose: Not Given Documented By: AXEL Miscellaneous (Hhs Goal Range 250-350 Mg/Dl) 1 each N/A ONE ONE Stop: 02/11/23 13:30 Last Admin: 02/11/23 13:43 Dose: 1 each Documented By: KYLE Imaging Data Attestation: I personally reviewed and interpreted this imaging study as follows: My Impression: 1 view chest x-ray was obtained in the emergency department. My interpretation is no free air or definite infiltrate, final report below. CT of the brain was obtained in the emergency department. My interpretation is no intracranial hemorrhage or mass effect, final report below. Radiologist's Impression: Chest X-Ray 02/11/23 08:20 XR chest 1V portable HISTORY: 62 years-old Male weak acute weakness COMPARISON: 09/23/2022 TECHNIQUE: AP view of the chest FINDINGS: Cardiac mediastinal and hilar silhouettes are within normal limits. No pneumothorax, pleural effusion, airspace consolidation or pulmonary edema. Degenerative changes of the shoulders and spine. IMPRESSION: No acute process. ACT 112: Negative or not required by law. The above report was generated using voice recognition software. It may contain grammatical, syntax or spelling errors. Electronically signed by: Bj Karimi M.D. 02/11/2023 9:[address] 02/11/23 08:23 CT head/brain wo con CLINICAL HISTORY: 62 years-old Male with AMS. Acutely altered mental status TECHNIQUE: Multiple axial CT images of the head were obtained without contrast. A dose lowering technique was utilized adhering to the principles of ALARA. CT DOSE: 625.80 mGy.cm COMPARISON: 09/22/2022 FINDINGS: No acute intracranial hemorrhage, midline shift, intracranial mass, hydrocephalus, territorial ischemia or abnormal extra-axial collection. Involutional changes with chronic microvascular ischemic disease. Chronic lacunar infarcts of the basal ganglia. The calvarium is intact. Probable small right occipital scalp contusion. The paranasal sinuses, mastoid air cells, and middle ear cavities are clear. IMPRESSION: No acute intracranial abnormality. ACT 112: Negative or not required by law. The above report was generated using voice recognition software. It may contain grammatical, syntax or spelling errors. Electronically signed by: Bj Karimi M.D. 02/11/2023 9:38 AM Discharge Plan Visit Data Chief Complaint: Illness Stated Complaint: DIFFICULTY AMBULATING, HYPERGLYCEMIC, DETOX ED Provider: Kevin Phillips Discharge Problem: DKA (diabetic ketoacidosis), Diabetes mellitus, new onset, AMS (altered mental status), Metabolic encephalopathy Patient Disposition: Admitted As Inpatient Discharge Instructions Interventions: ED Discharge Assessment Last Done: 02/11/23 12:44
[2023-02-11] MEDS ORDERED: SODIUM CHLORIDE 0.9% 1,000 ML IV ONE ×2 (08:47→09:47)
[2023-02-11 08:51] LABS: Basophils # (auto) 0.01 K/uL (0.00-0.20); Basophils % (auto) 0.2 %; Hematocrit (blood only) 36.7 % (42.0-52.0); Immature Granulocytes # (auto) 0.03 K/uL (0.01-0.20); Immature Granulocytes % (auto) 0.6 %; Lymphocytes # (auto) 0.49 K/uL (1.20-3.40); Lymphocytes % (auto) 10.5 %; Mean Corpuscular Hemoglobin 28.3 pg (25.0-34.0); Mean Corpuscular Volume 94.3 fL (80.0-100.0); Mean Platelet Volume 11.5 fL (9.4-12.4); Monocytes # (auto) 0.96 K/uL (0.11-0.59); Monocytes % (auto) 20.5 %; Neutrophils # (auto) 3.19 K/uL (1.40-6.50); Neutrophils % (auto) 68.2 %; Platelet Count 164 K/uL (130-400); RDW Coefficient of Variation 13.8 % (11.5-14.5); RDW Standard Deviation 47.2 fL (36.4-46.3); Red Blood Count 3.89 M/uL (4.70-6.10); White Blood Count 4.68 K/ul (4.8-10.8)
[2023-02-11 08:54] LABS: Partial Thromboplastin Ratio 0.8; Partial Thromboplastin Time 23.9 Seconds (21.0-31.0); Prothrombin Time 10.7 Seconds (9.0-12.0)
--- NOTE | 2023-02-11 09:28 | XRay Report ---
XR chest 1V portable HISTORY: 62 years-old Male weak acute weakness COMPARISON: 09/23/2022 TECHNIQUE: AP view of the chest FINDINGS: Cardiac mediastinal and hilar silhouettes are within normal limits. No pneumothorax, pleural effusion , airspace consolidation or pulmonary edema. Degenerative changes of the shoulders and spine. IMPRESSION: No acute process. ACT 112: Negative or not required by law. The above report was generated using voice recognition software. It may contain grammatical, syntax o r spelling errors. Electronically signed by: Bj Karimi M.D. 02/11/2023 9:26 AM
--- NOTE | 2023-02-11 09:40 | CT Scan Report ---
CT head/brain wo con CLINICAL HISTORY: 62 years-old Male with AMS. Acutely altered mental status TECHNIQUE: Multiple axial CT images of the head were obtained without contrast. A dose lowering tech nique was utilized adhering to the principles of ALARA. CT DOSE: 625.80 mGy.cm COMPARISON: 09/22/2022 FINDINGS: No acute intracranial hemorrhage, midline shift, intracranial mass, hydrocephalus, territorial ischem ia or abnormal extra-axial collection. Involutional changes with chronic microvascular ischemic disea se. Chronic lacunar infarcts of the basal ganglia. The calvarium is intact. Probable small right occipital scalp contusion. The paranasal sinuses, masto id air cells, and middle ear cavities are clear. IMPRESSION: No acute intracranial abnormality. ACT 112: Negative or not required by law. The above report was generated using voice recognition software. It may contain grammatical, syntax o r spelling errors. Electronically signed by: Bj Karimi M.D. 02/11/2023 9:38 AM
[2023-02-11] MEDS ORDERED: GLUCOSE 10 TAB/TUBE PO PRN (09:47)
[2023-02-11] MEDS ORDERED: GLUCAGON FOR INJ 1 MG VIAL SQ PRN (09:47)
[2023-02-11] MEDS ORDERED: DEXTROSE 50% 50 ML SYRINGE IV PRN (09:47)
[2023-02-11] MEDS ORDERED: CARBOHYDRATES FOR HYPOGLYCEMIA PO PRN (09:47)
[2023-02-11] MEDS ORDERED: DKA GOAL RANGE 150-250 mg/dl ONE (09:47)
[2023-02-11] MEDS ORDERED: GLUCOSE 40% GEL 15 GM TUBE PO PRN (09:47)
[2023-02-11] MEDS ORDERED: STAT INSULIN DRIP STA (09:47)
[2023-02-11 10:02] LABS: Base Excess VBG -2.8 mEq/L; HCO3 VBG 26 mmol/L; Oxygen Saturation VBG 74.6 %; PCO2 VBG 62 mmHg (38-50); PO2 VBG 49 mmHg; pH VBG 7.23 (7.36-7.41)
[2023-02-11 10:06] LABS: Albumin Globulin Ratio 1.3 (0.9-2); Albumin Level 4.5 gm/dl (3.4-5.0); BUN Creatinine Ratio 13.1 (10-20); Bilirubin,Total 1.3 mg/dl (0.2-1.0); Calcium 9.8 mg/dl (8.6-10.3); Creatinine Clr Calc Pharmacy 40.5 ml/min; Est GFR (Non-African American) 41.4 ml/min; Globulin 3.6 gm/dl (2.5-4.0); Potassium 4.3 mmol/L (3.5-5.1); Total Protein 8.1 gm/dl (6.0-8.3); Troponin I High Sensitivity 8.9 pg/ml (0-20)
[2023-02-11] MEDS ORDERED: cefTRIAXone SODIUM 2,000 MG/70 ML BAG IV STA (10:23)
[2023-02-11 10:29] LABS: Appearance Urine Clear (Clear); Bilirubin Urine Negative (Negative); Blood Urine Negative (Negative); Color Urine Yellow; Glucose Urine UA 3+ (Negative); Ketones Urine Trace (Negative); Leukocyte Esterase Urine Negative (Negative); Nitrite Urine Negative (Negative); Protein Urine Negative (Negative); Specific Gravity Urine 1.032 (1.000-1.030); Urobilinogen Urine Negative (Negative)
--- NOTE | 2023-02-11 10:41 | History & Physical Report ---
Date of Service February 11, 2023 Assessment & Plan (1) Hyperosmolar hyperglycemic state (HHS): (2) Alcohol abuse: (3) HTN (hypertension): (4) HLD (hyperlipidemia): (5) Hx of right BKA: (6) Tobacco abuse: Plan: 62-year-old male with PMHx of alcohol abuse, recurrent acute pancreatitis, hypertension, hyperlipidemia MDD, status post right below the knee amputation, who presents to the hospital with acute onset of altered mental status/lethary and stupor. On admission patient is found to have a glucose of 1819, anion gap of 19, sodium 115, potassium 4.3. Lactic acid of 4.4, his VBG's is significant for acidosis with pH of 7.3, and pCO2 of 62. He was started on an insulin drip for HHS after being administered NSS for volume resuscitation. HHS Metabolic acidosis plus alkalosis, also respiratory acidosis Recurrent pancreatitis Alcohol abuse DM type II, diagnosed April 2022 -Admit to ICU -Discussed with professional athlete on-call, Dr. Guerrier -This is possibly worsened due to medication noncompliance? Patient is unable to go through [facility] but states that he has not been taking his medications. Denies drinking any alcohol today, alcohol level is negative. Unknown time of last alcoholic drink. -Does not appear to be alcohol induced at this time, lipase is negative, no abdominal pain or complaints -Does not appear to be infectious: Afebrile, WBC 4.68 on admission however will cover empirically with ceftriaxone IV in the setting, - metabolic acidosis plus alkalosis, there is a component of respiratory acidosis as well -Follow urine studies, urine culture pending, blood culture x2 -Continue insulin drip, has received 2 L NSS so far, continue at least 3L total bolus then start Plasma-Lyte at 250 mL/h + KCl 40 mEq -Give additional potassium 20 mEq right now for level of 4.3 -Sodium of 115 on admission, corrected is in the 130s secondary to pseudo hyponatremia with glucose levels of >1800 on admission -Anion gap of 19, lactic acidosis of 4.4 -ABG showing pH of 7.29, PCO2 49, PO2 76, - recheck ABG and BMP Q4H, glucose Q1H - Last A1c was 6.9 in September 2019 -Holding Jardiance and metformin HTN -Chronic, stable -on clonidine 0.1 mg BID,, carvedilol 3.125mg BID, lisinopril 20 mg QD MDD -Continue on duloxetine 20 mg daily Tobacco abuse -Cessation of smoking will need to be encouraged prior to discharge, still smoking 4 to 5 cigarettes/day GI/FEN: NPO, transition as pt less lethargic and HHS resolves IV/Lines: 2 peripheral IV CODE: Full Dispo: From home, remain in the hospital x 2 days History of Present Illness Chief Complaint: Altered mental status, lethargy Primary Care Provider: Liyah Oseguera MD This is a 62-year-old male with PMHx of alcohol abuse, recurrent acute pancreatitis, hypertension, hyperlipidemia MDD, status post right below the knee amputation, who presents to the hospital with acute onset of altered mental status. It appears that the patient was diagnosed with DM type II back in April 2022 where he had an A1c of 9.5 after hospital stay for acute pancreatitis from alcohol use. As of September he had an A1c of 6.9 and has since been started on Januvia and metformin. Patient presents today after ambulance was called by his brother who stayed with him overnight, and reported that around 3 AM he was increased difficulty ambulating. He did not come to the hospital until later this morning when gait did not improve. He does have a right below the knee prosthesis however typically ambulates without any issues. Upon evaluation in the ER, the patient is slow to respond to some of my questions, slightly confused at times but does answer some questions correctly like the day of the month, that he is in [facility], but has difficulty answering the year or the month. He denies any fevers, chills or sweats. No recent other ill symptoms. He denies drinking any alcohol today. Patient does not tell me whenever his last alcoholic drink was with repetitive questioning. He is still smoking 4 to 5 cigarettes daily. Patient is found to have a glucose of 1819, anion gap of 19, sodium 115, potassium 4.3. Lactic acid of 4.4, his VBG's is significant for acidosis with pH of 7.3, and pCO2 of 62. He was started on an insulin drip for HHS in the ER, after being administered 1 L of NSS. Allergies Allergy/AdvReac Type Severity Reaction Status Date / Time No Known Allergies Allergy Verified 09/22/22 01:49 Home Medications Medication Instructions Recorded Confirmed Type blood sugar diagnostic (eTobbTouch #50 ea 05/03/22 Rx Verio test strips) blood-glucose meter (OneTouch #1 ea 05/03/22 Rx Verio Meter) lancets 33 gauge (OneTouch Delica #100 ea 05/03/22 Rx Lancets) multivitamin 1 tab PO DAILY 09/22/22 02/11/23 History acetaminophen 325 mg tablet 650 mg PO Q4H PRN pain #30 tabs 09/29/22 Rx carvedilol 3.125 mg tablet 3.125 mg PO BIDM #60 tabs 09/29/22 02/11/23 Rx duloxetine 20 mg capsule,delayed 20 mg PO QAM #30 caps 09/29/22 02/11/23 Rx release (Cymbalta) folic acid 1 mg tablet 1,000 mcg PO DAILY #30 tabs 09/29/22 02/11/23 Rx metformin 500 mg tablet,extended 500 mg PO BID #60 tabs 09/29/22 02/11/23 Rx release 24 hr thiamine HCl (vitamin B1) 100 mg 100 mg PO DAILY #30 tabs 09/29/22 Rx tablet clonidine HCl 0.1 mg tablet 0.1 mg PO BID 02/11/23 02/11/23 History empagliflozin 10 mg tablet 10 mg PO DAILY 02/11/23 02/11/23 History (Jardiance) gabapentin 300 mg capsule 300 mg PO DAILY 02/11/23 02/11/23 History lisinopril 20 mg tablet 20 mg PO DAILY 02/11/23 02/11/23 History magnesium oxide 400 mg (241.3 mg 400 mg PO QAM 02/11/23 02/11/23 History magnesium) tablet potassium chloride 20 mEq oral 20 meq PO BID 02/11/23 02/11/23 History packet Past Med/Surg History Medical History Alcohol dependence a fifth of liquor and 12 beers daily for yrs. Depression Diabetes mellitus type 2 in nonobese GERD (gastroesophageal reflux disease) HLD (hyperlipidemia) HTN (hypertension) Hx of hematuria Hx of pancreatitis Obesity Pancreatitis, recurrent Phantom pain after amputation of lower extremity Tobacco abuse Surgical History Complete below knee amputation of right lower extremity History of mandibular surgery BR[facility] 1978 History of tooth extraction ALL TEETH REMOVED Hx of right BKA 2013 s/p fracture of tibia/fibula with associated infection Family History Sister Family history of diabetes mellitus Brother Pancreatic carcinoma Social History Smoking Status: Current every day smoker Tobacco Type: Cigarettes Cigarettes Per Day: 10; Second Hand Exposure: No; Do You Dip or Chew Tobacco: No; Tobacco Cessation Education Requested by Patient: No Hx Alcohol Use: Yes Alcohol type: beer and hard liquor Alcohol Intake Frequency: 4 or More x per/Week Alcohol Intake Frequency Comment: 6 pack of beer + daily Hx Substance Use: Yes Last Used Substance: Days (ago) Preferred Language: Chinese Communication Ability: Effective Business Records Manager Required: No Beliefs That Will Affect Care: None marital status: Single Current Living Situation: Long-Term Current Living Situation Comment: lives with roomate Other Information That Helps Us Care for You: No Feels Safe at Home: Yes Safety Concerns: Feels Safe At This Time Assistive Devices: Cane and Prosthesis Review of Systems Review of Systems: Constitutional: No fever, chills, sweats, + fatigue and weakness Eyes: No diplopia, no changes in vision ENT: No sore throat, tinnitus, or trouble swallowing, + dry mouth Respiratory: No shortness of breath, No dyspnea at rest or on exertion, no cough or sputum Cardiovascular: No chest pain, palpitations, or flutter Abdomen: No pain, No constipation, No diarrhea, no blood in stool, last bowel movement was this morning, no nausea, No vomiting Musculoskeletal: No calf pain, No joint pain, No swelling Genitourinary : No dysuria or urinary frequency, No hematuria Neurologic: No numbness/tingling, no difficulty with ambulation, no sensory or motor deficits Psychiatric: History of depression, no anxiety symptoms Endocrine: + Generalized fatigue, No weight changes Integumentary: No itch, No rash Physical Exam Physical Exam: General: awake, slowness to respond to some questions, no apparent distress, thin black male Head: Normocephalic, atraumatic ENT: PERRL, EOMI, no pharyngeal exudate, tongue is stained bright red/orange, mucous membranes very dry Chest: Clear to auscultation, on room air, no adventitious breath sounds Cardiac: Regular rate and rhythm, no murmur, no JVD, normal peripheral pulses, good capillary refill Abdominal: NABS x 4 quadrants, soft, nondistended, nontender to palpation, no rebound or guarding Extremities: Right below the knee amputation with prosthesis in place, otherwise normal inspection, no peripheral edema or erythema, left calf nontender to palpation Psych: Normal mood and affect Neuro: Awakens to verbal stimuli, oriented to place, has difficulty with other specific orientation questions, no gross motor deficits, speech is clear, no peripheral sensory deficits Results & Data Results & Data Vital Signs (Past 12 Hours) Vital Signs Temp Pulse Resp BP Pulse Ox O2 Del Method O2 Flow Rate 02/11/23 10:00 90 20 147/97 H 100 Nasal Cannula 2 02/11/23 09:30 89 26 H 142/104 H 100 Nasal Cannula 2 02/11/23 09:02 95 H 27 H 141/91 H 93 Room Air 02/11/23 08:30 101 H 24 152/90 H 95 Room Air 02/11/23 08:51 93 Room Air 02/11/23 08:24 105 H 02/11/23 08:15 36.8 C 104 H 26 H 142/87 H 92 Room Air Laboratory Results 02/11/23 09:50 Aerobic Blood Culture - Pending Blood Anaerobic Blood Culture - Pending 02/11/23 08:20 Aerobic Blood Culture - Pending Blood Anaerobic Blood Culture - Pending 02/11/23 02/11/23 02/11/23 10:59 10:48 09:50 WBC RBC Hgb Hct MCV MCH MCHC RDW Std Deviation RDW Coeff of Miguel Plt Count MPV Immature Gran % (Auto) Neut % (Auto) Lymph % (Auto) [place] % (Auto) Eos % (Auto) Baso % (Auto) Neut # (Auto) Lymph # (Auto) [place] # (Auto) Eos # (Auto) Baso # (Auto) Immature Gran # (Auto) PT INR APTT PTT Ratio ABG pH 7.29 L ABG pCO2 49 H ABG pO2 76 L ABG HCO3 24 ABG O2 Saturation 95.8 H ABG Base Excess -3.4 Slava Test Pos VBG pH 7.23 L VBG pCO2 62 H VBG pO2 49 VBG HCO3 26 VBG O2 Saturation 74.6 VBG Base Excess -2.8 Oxygen Given FLOW RATE 2 Sodium Potassium Chloride Carbon Dioxide Anion Gap BUN Creatinine Est Cr Clr Drug Dosing Est GFR ( Amer) Est GFR (Non-Af Amer) BUN/Creatinine Ratio Glucose POC Glucose > 600 H* Lactate Calcium Total Bilirubin AST ALT Alkaline Phosphatase Ammonia Troponin I High Sens Total Protein Albumin Globulin Albumin/Globulin Ratio Lipase Urine Color Urine Appearance Urine pH Ur Specific [place] Urine Protein Urine Glucose (UA) Urine Ketones Urine Blood Urine Nitrite Urine Bilirubin Urine Urobilinogen Ur Leukocyte Esterase Urine Opiates Screen Ur Methadone, Qual Urine Barbiturates Ur Phencyclidine (PCP) U Amphetamin/Meth Scrn MDMA (Ecstasy) Screen U Benzodiazepines Scrn Ur Cocaine Metabolite U Marijuana (THC) Screen Ethyl Alcohol mg/dL 02/11/23 02/11/23 02/11/23 09:19 09:19 08:20 WBC RBC Hgb Hct MCV MCH MCHC RDW Std Deviation RDW Coeff of Miguel Plt Count MPV Immature Gran % (Auto) Neut % (Auto) Lymph % (Auto) [place] % (Auto) Eos % (Auto) Baso % (Auto) Neut # (Auto) Lymph # (Auto) [place] # (Auto) Eos # (Auto) Baso # (Auto) Immature Gran # (Auto) PT INR APTT PTT Ratio ABG pH ABG pCO2 ABG pO2 ABG HCO3 ABG O2 Saturation ABG Base Excess Slava Test VBG pH VBG pCO2 VBG pO2 VBG HCO3 VBG O2 Saturation VBG Base Excess Oxygen Given Sodium Potassium Chloride Carbon Dioxide Anion Gap BUN Creatinine Est Cr Clr Drug Dosing Est GFR ( Amer) Est GFR (Non-Af Amer) BUN/Creatinine Ratio Glucose POC Glucose Lactate Calcium Total Bilirubin AST ALT Alkaline Phosphatase Ammonia Troponin I High Sens Total Protein Albumin Globulin Albumin/Globulin Ratio Lipase Urine Color Yellow Urine Appearance Clear Urine pH 5.0 Ur Specific [place] 1.032 H Urine Protein Negative Urine Glucose (UA) 3+ H Urine Ketones Trace H Urine Blood Negative Urine Nitrite Negative Urine Bilirubin Negative Urine Urobilinogen Negative Ur Leukocyte Esterase Negative Urine Opiates Screen Neg Ur Methadone, Qual Neg Urine Barbiturates Neg Ur Phencyclidine (PCP) Neg U Amphetamin/Meth Scrn Neg MDMA (Ecstasy) Screen Neg U Benzodiazepines Scrn Neg Ur Cocaine Metabolite Neg U Marijuana (THC) Screen Neg Ethyl Alcohol mg/dL < 10.0 02/11/23 02/11/23 02/11/23 08:20 08:20 08:20 WBC 4.68 L RBC 3.89 L Hgb 11.0 L Hct 36.7 L MCV 94.3 MCH 28.3 MCHC 30.0 L RDW Std Deviation 47.2 H RDW Coeff of Miguel 13.8 Plt Count 164 MPV 11.5 Immature Gran % (Auto) 0.6 Neut % (Auto) 68.2 Lymph % (Auto) 10.5 [place] % (Auto) 20.5 Eos % (Auto) 0.0 Baso % (Auto) 0.2 Neut # (Auto) 3.19 Lymph # (Auto) 0.49 L [place] # (Auto) 0.96 H Eos # (Auto) 0.00 Baso # (Auto) 0.01 Immature Gran # (Auto) 0.03 PT INR APTT PTT Ratio ABG pH ABG pCO2 ABG pO2 ABG HCO3 ABG O2 Saturation ABG Base Excess Slava Test VBG pH VBG pCO2 VBG pO2 VBG HCO3 VBG O2 Saturation VBG Base Excess Oxygen Given Sodium 115 L* Potassium 4.3 Chloride 74 L Carbon Dioxide 22 Anion Gap 19 H BUN 23 Creatinine 1.75 H Est Cr Clr Drug Dosing 40.5 Est GFR ( Amer) 48.0 Est GFR (Non-Af Amer) 41.4 BUN/Creatinine Ratio 13.1 Glucose 1819 H* POC Glucose Lactate Calcium 9.8 Total Bilirubin 1.3 H AST 8 L ALT 16 Alkaline Phosphatase 193 H Ammonia 22.0 Troponin I High Sens 8.9 Total Protein 8.1 Albumin 4.5 Globulin 3.6 Albumin/Globulin Ratio 1.3 Lipase 42 Urine Color Urine Appearance Urine pH Ur Specific [place] Urine Protein Urine Glucose (UA) Urine Ketones Urine Blood Urine Nitrite Urine Bilirubin Urine Urobilinogen Ur Leukocyte Esterase Urine Opiates Screen Ur Methadone, Qual Urine Barbiturates Ur Phencyclidine (PCP) U Amphetamin/Meth Scrn MDMA (Ecstasy) Screen U Benzodiazepines Scrn Ur Cocaine Metabolite U Marijuana (THC) Screen Ethyl Alcohol mg/dL 02/11/23 02/11/23 02/11/23 08:20 08:20 08:15 WBC RBC Hgb Hct MCV MCH MCHC RDW Std Deviation RDW Coeff of Miguel Plt Count MPV Immature Gran % (Auto) Neut % (Auto) Lymph % (Auto) [place] % (Auto) Eos % (Auto) Baso % (Auto) Neut # (Auto) Lymph # (Auto) [place] # (Auto) Eos # (Auto) Baso # (Auto) Immature Gran # (Auto) PT 10.7 INR 1.0 APTT 23.9 PTT Ratio 0.8 ABG pH ABG pCO2 ABG pO2 ABG HCO3 ABG O2 Saturation ABG Base Excess Slava Test VBG pH VBG pCO2 VBG pO2 VBG HCO3 VBG O2 Saturation VBG Base Excess Oxygen Given Sodium Potassium Chloride Carbon Dioxide Anion Gap BUN Creatinine Est Cr Clr Drug Dosing Est GFR ( Amer) Est GFR (Non-Af Amer) BUN/Creatinine Ratio Glucose POC Glucose > 600 H* Lactate 4.4 H* Calcium Total Bilirubin AST ALT Alkaline Phosphatase Ammonia Troponin I High Sens Total Protein Albumin Globulin Albumin/Globulin Ratio Lipase Urine Color Urine Appearance Urine pH Ur Specific [place] Urine Protein Urine Glucose (UA) Urine Ketones Urine Blood Urine Nitrite Urine Bilirubin Urine Urobilinogen Ur Leukocyte Esterase Urine Opiates Screen Ur Methadone, Qual Urine Barbiturates Ur Phencyclidine (PCP) U Amphetamin/Meth Scrn MDMA (Ecstasy) Screen U Benzodiazepines Scrn Ur Cocaine Metabolite U Marijuana (THC) Screen Ethyl Alcohol mg/dL Diagnostic Findings Chest X-Ray 02/11/23 08:20 XR chest 1V portable HISTORY: 62 years-old Male weak acute weakness COMPARISON: 09/23/2022 TECHNIQUE: AP view of the chest FINDINGS: Cardiac mediastinal and hilar silhouettes are within normal limits. No pneumothorax, pleural effusion, airspace consolidation or pulmonary edema. Degenerative changes of the shoulders and spine. IMPRESSION: No acute process. ACT 112: Negative or not required by law. The above report was generated using voice recognition software. It may contain grammatical, syntax or spelling errors. Electronically signed by: Bj Karimi M.D. 02/11/2023 9:[address] 02/11/23 08:23 CT head/brain wo con CLINICAL HISTORY: 62 years-old Male with AMS. Acutely altered mental status TECHNIQUE: Multiple axial CT images of the head were obtained without contrast. A dose lowering technique was utilized adhering to the principles of ALARA. CT DOSE: 625.80 mGy.cm COMPARISON: 09/22/2022 FINDINGS: No acute intracranial hemorrhage, midline shift, intracranial mass, hydrocephalus, territorial ischemia or abnormal extra-axial collection. Involutional changes with chronic microvascular ischemic disease. Chronic lacunar infarcts of the basal ganglia. The calvarium is intact. Probable small right occipital scalp contusion. The paranasal sinuses, mastoid air cells, and middle ear cavities are clear. IMPRESSION: No acute intracranial abnormality. ACT 112: Negative or not required by law. The above report was generated using voice recognition software. It may contain grammatical, syntax or spelling errors. Electronically signed by: Bj Karimi M.D. 02/11/2023 9:38 AM Code Status & VTE Plan Code Status Full code Supervising Physician Co-Signing Physician Notes Pt was seen and examined. Agreed with Bhavya ECHEVARRIA exam, assessment and plan. 62-year-old male with PMHx of alcohol abuse, recurrent acute pancreatitis, hypertension, hyperlipidemia MDD, status post right below the knee amputation, who presents to the hospital with acute onset of altered mental status/lethary and stupor. History difficult to obtained due to Pt being lethargy. he was brought to the ER after brother noticed him with difficulty to ambulate. In the ER lab showed glucose of 1819, anion gap of 19, sodium 115, potassium 4.3. Lactic acid of 4.4. ABG showed pH 7.2/pCO2 49, HCO3 24. CT head showed no acute intracranial finding. He will be admitted in the ICU to manage for diabetic complications HHS. Continue IVF bolus x3L. He was already started on insulin drip. Will replaced potassium. Case discussed with the professional athlete Dr. Guerrier. Monitor BMP q4h until anion gap close. Monitor for sign of alcohol withdrawal. Follow closely in the ICU. MD Deja (3) HTN (hypertension) Hypertension type: unspecified Qualified Code(s): I10 - Essential (primary) hypertension (4) HLD (hyperlipidemia) Hyperlipidemia type: unspecified Qualified Code(s): E78.5 - Hyperlipidemia, unspecified
[2023-02-11 10:43] LABS: Amphetamines+Metham, Urine Neg (Neg); Barbiturates, Urine Neg (Neg); Benzodiazepine, Urine Neg (Neg); Cocaine, Urine Neg (Neg); MDMA (Ecstacy), Urine Neg (Neg); Methadone, Urine Neg (Neg); Opiate, Urine Neg (Neg); Phencyclidine, Urine Neg (Neg)
[2023-02-11 10:53] LABS: Allen Test Pos (Pos); Base Excess ABG -3.4 mEq/L (-9-1.8); HCO3 ABG 24 mmol/L (19-24); Oxygen Saturation ABG 95.8 % (90-95); PCO2 ABG 49 mmHg (35-46); PO2 ABG 76 mmHg (80-95); pH ABG 7.29 (7.35-7.45)
[2023-02-11] MEDS: INSULIN REGULAR 250 UNITS in SODIUM CHLORIDE 0.9% 247.5 ML IV SCH (10:54)
[2023-02-11] MEDS ORDERED: INSULIN ASPART PER UNIT CHARGE SC SCH ×2 (11:30→13:29)
[2023-02-11] MEDS ORDERED: POTASSIUM CHLORIDE 40 MEQ in PLASMA-LYTE A 1,000 ML IV SCH ×2 (11:30→13:29)
--- NOTE | 2023-02-11 11:32 | Critical Care Consultation ---
Date of Consultation February 11, 2023 Assessment & Plan (1) Hyperosmolar hyperglycemic state (HHS): (2) Alcohol abuse: (3) IDALIA (acute kidney injury): (4) Metabolic encephalopathy: (5) HTN (hypertension): (6) HLD (hyperlipidemia): (7) Depression: (8) High anion gap metabolic acidosis: Plan Reason Critically Ill: 62-year-old male past medical history of hypertension, alcohol use, dyslipidemia presented to hospital with altered mental status. He was found to be in HHS Neuro - [facility] ICU: Negative --Metabolic encephalopathy Likely from underlying hyperglycemia CT head 02/11/2023: No acute intracranial abnormality --Depression On duloxetine --History of heavy alcohol abuse Continue to monitor right now. If the patient gets restless then we will start the patient on CIWA protocol Cardiac - -- Hypertension Continue with Coreg Hold lisinopril given IDALIA EKG 02/11/2023: Sinus tachycardia, normal axis, no ST-T wave changes, QTc 487 Respiratory - -- History of cigar smoking Not in any respiratory distress right now GI - -- No active issues RENAL/LYTES - -- IDALIA Follow-up urine lites Monitor BUN/creatinine Avoid nephrotoxic medications Strict ins and outs - -- No active issues ENDO - --Hyperosmolar hyperglycemic state Continue with insulin drip until anion gap closes Decreasing blood glucose no more than 100 in an hour Replace potassium IV when potassium level between 3.3-5.3 BMP every 4 hours Continue with IV fluids Trace counts in the urine -- HAGMA Delta-delta: Greater than 2 Likely sec to metabolic acidosis from lactic acidosis plus alkalosis, there is a component of respiratory acidosis as well Follow up serum osm, urine osm, urine lytes ABG 7.29/49/76 on 2 L Monitor --Pseudohyponatremia Corrected sodium 143 HEME - -- Normocytic anemia Continue to monitor H&H ID - -- No clear source of infection Chest x-ray clean, urine clean --Prophylaxis VTE: Heparin GI: None Lines: Peripheral Diet: NPO Plan: Strict in and out Give bolus at least 3.5 liters liters of IV fluids crystalloid followed by half NS Start insulin drip, replace potassium to keep it between 3.3 and 5.3, repeat BMP every 4 hours Did not decrease the sugar greater than 100/h. Before starting insulin drip would like to check the blood sugar which will be the baseline I have personally spent 52 minutes of critical care time in the direct management of this patient. This is a life/limb threatening event. This includes time spent evaluating patient, direct bedside care, chart review, placing orders, interpretation of diagnostic studies, discussion with consultants, patient, and family members, as well as other required patient management activities. This time is exclusive of all separately billable procedures, and teaching time and separate from and in addition to any other critical care service time. History of Present Illness History of Present Illness 62-year-old male presented to the hospital because of altered mental status Past medical history: Hypertension, dyslipidemia Patient was found to have sugar 1800 in the ED Patient being transferred to the ICU for insulin drip At the time of examination in the ICU, he was not in any distress. Respiratory rate was in the low teens, blood pressure systolic in 140s. Saturating well on room air Patient was on insulin drip and he was getting potassium replaced He had only normal saline running. Plasma-Lyte with 40 of KCl bag was just sent with the patient to be started. He was alert to self and place. Answering to the questions Denied any headache, no nausea, no vomiting, no abdominal pain No dizziness Social history: Used to smoke cigars. Allergies Allergy/AdvReac Type Severity Reaction Status Date / Time No Known Allergies Allergy Verified 09/22/22 01:49 Home Medications Medication Instructions Recorded Confirmed Type blood sugar diagnostic (MarkLogicTouch #50 ea 05/03/22 Rx Verio test strips) blood-glucose meter (OneTouch #1 ea 05/03/22 Rx Verio Meter) lancets 33 gauge (OneTouch Delica #100 ea 05/03/22 Rx Lancets) multivitamin 1 tab PO DAILY 09/22/22 02/11/23 History acetaminophen 325 mg tablet 650 mg PO Q4H PRN pain #30 tabs 09/29/22 Rx carvedilol 3.125 mg tablet 3.125 mg PO BIDM #60 tabs 09/29/22 02/11/23 Rx duloxetine 20 mg capsule,delayed 20 mg PO QAM #30 caps 09/29/22 02/11/23 Rx release (Cymbalta) folic acid 1 mg tablet 1,000 mcg PO DAILY #30 tabs 09/29/22 02/11/23 Rx metformin 500 mg tablet,extended 500 mg PO BID #60 tabs 09/29/22 02/11/23 Rx release 24 hr thiamine HCl (vitamin B1) 100 mg 100 mg PO DAILY #30 tabs 09/29/22 Rx tablet clonidine HCl 0.1 mg tablet 0.1 mg PO BID 02/11/23 02/11/23 History empagliflozin 10 mg tablet 10 mg PO DAILY 02/11/23 02/11/23 History (Jardiance) gabapentin 300 mg capsule 300 mg PO DAILY 02/11/23 02/11/23 History lisinopril 20 mg tablet 20 mg PO DAILY 02/11/23 02/11/23 History magnesium oxide 400 mg (241.3 mg 400 mg PO QAM 02/11/23 02/11/23 History magnesium) tablet potassium chloride 20 mEq oral 20 meq PO BID 02/11/23 02/11/23 History packet Patient History Medical History Alcohol dependence a fifth of liquor and 12 beers daily for yrs. Depression Diabetes mellitus type 2 in nonobese GERD (gastroesophageal reflux disease) HLD (hyperlipidemia) HTN (hypertension) Hx of hematuria Hx of pancreatitis Obesity Pancreatitis, recurrent Phantom pain after amputation of lower extremity Tobacco abuse Surgical History Complete below knee amputation of right lower extremity History of mandibular surgery BROKEN JAW 1978 History of tooth extraction ALL TEETH REMOVED Hx of right BKA 2013 s/p fracture of tibia/fibula with associated infection Family History Sister Family history of diabetes mellitus Brother Pancreatic carcinoma Social History Smoking Status: Current every day smoker Tobacco Type: Cigarettes Cigarettes Per Day: 10; Second Hand Exposure: No; Do You Dip or Chew Tobacco: No; Tobacco Cessation Education Requested by Patient: No Hx Alcohol Use: Yes Alcohol type: beer and hard liquor Alcohol Intake Frequency: 4 or More x per/Week Alcohol Intake Frequency Comment: 6 pack of beer + daily Hx Substance Use: Yes Last Used Substance: Days (ago) Preferred Language: Cymraes Communication Ability: Effective Supervisor Paste Plant Required: No Beliefs That Will Affect Care: None marital status: Single Current Living Situation: [facility] Current Living Situation Comment: lives with roomate Other Information That Helps Us Care for You: No Feels Safe at Home: Yes Safety Concerns: Feels Safe At This Time Assistive Devices: Cane and Prosthesis Review of Systems Review of Systems: Unobtainable due to mental health condition and Unobtainable due to cognitive status Physical Exam Physical Exam: Constitutional: No acute distress HEENT: EOMI, PERRLA Respiratory system: Good air entry bilaterally, no wheeze, no rhonchi, no crackles CVS: S1-S2 positive, no murmurs or gallops Abdomen: Soft, nontender, nondistended, positive bowel sounds x4 Extremities: +2 pulses bilaterally radialis/left dorsalis pedis, no cyanosis, no edema, right BKA Neuro: Awake alert oriented to self and place Psych: Normal mood and affect G/U: No Saravia Skin: no rashes, warm and dry Lymphatic: no cervical or axillary lymphadenopathy Results & Data Results & Data Vital Signs (Past 12 Hours) Vital Signs Temp Pulse Resp BP Pulse Ox O2 Del Method O2 Flow Rate 02/11/23 11:20 85 16 95 02/11/23 11:10 87 22 94 02/11/23 11:00 87 20 93 02/11/23 11:00 148/96 H 02/11/23 10:50 82 20 95 02/11/23 10:40 87 16 93 02/11/23 10:30 84 26 H 152/99 H 93 Room Air 02/11/23 10:00 90 20 147/97 H 100 Nasal Cannula 2 02/11/23 09:30 89 26 H 142/104 H 100 Nasal Cannula 2 02/11/23 09:02 95 H 27 H 141/91 H 93 Room Air 02/11/23 08:30 101 H 24 152/90 H 95 Room Air 02/11/23 08:51 93 Room Air 02/11/23 08:24 105 H 02/11/23 08:15 36.8 C 104 H 26 H 142/87 H 92 Room Air Laboratory Results 02/11/23 08:20 02/11/23 08:20 Coding Level of Care Code 23181 CRITICAL CARE 1ST 30-74M Diagnoses Hyperosmolar hyperglycemic state (HHS) E11.00 Alcohol abuse F10.10 IDALIA (acute kidney injury) N17.9 Metabolic encephalopathy G93.41 HTN (hypertension) I10 Hypertension type: unspecified HLD (hyperlipidemia) E78.5 Hyperlipidemia type: unspecified Depression F32.9 Depression Type: unspecified High anion gap metabolic acidosis E87.29 Time Spent (min) 52 (5) HTN (hypertension) Hypertension type: unspecified Qualified Code(s): I10 - Essential (primary) hypertension (6) HLD (hyperlipidemia) Hyperlipidemia type: unspecified Qualified Code(s): E78.5 - Hyperlipidemia, unspecified (7) Depression Depression Type: unspecified Qualified Code(s): F32.9 - Major depressive disorder, single episode, unspecified
[2023-02-11] MEDS: POTASSIUM CHLORIDE / WTR 10 MEQ/100 ML PLCT IV SCH ×2 (12:21→13:43)
[2023-02-11 12:23] LABS: Acetaminophen < 3 ug/ml (10-30); Salicylate < 3.0 mg/dl (3.0-30)
[2023-02-11 12:43] LABS: Chloride Random Urine < 15 mmol/L; Potassium Random Urine 5.5 mmol/L; Sodium Random Urine 11 mmol/L
[2023-02-11 12:50] LABS: Calcium 9.8 mg/dl (8.6-10.3); Creatinine Clr Calc Pharmacy 41.5 ml/min; Est GFR (African American) 49.3 ml/min; Est GFR (Non-African American) 42.6 ml/min; Potassium 3.9 mmol/L (3.5-5.1)
[2023-02-11 12:52] LABS: Creatinine Urine Random 11.8 mg/dl
[2023-02-11] MEDS ORDERED: STAT IV Infusion **Titration per Protocol STA (13:29)
[2023-02-11] MEDS ORDERED: INSULIN REGULAR 250 UNITS in SODIUM CHLORIDE 0.9% 247.5 ML IV SCH (13:29)
[2023-02-11] MEDS ORDERED: HHS GOAL RANGE 250-350 mg/dl ONE (13:29)
[2023-02-11] MEDS ORDERED: PHARMACY GLYCEMIC MGMT CONSULT PRN (13:29)
--- NOTE | 2023-02-11 14:21 | Pharmacy Report ---
Pharmacy Glycemic Short Note 2 - Date of Service February 11, 2023 - Glycemic Short BSG Results (Last 24 hours): 02/11/23 02/11/23 02/11/23 08:15 08:20 10:59 Glucose 1819 H* POC Glucose > 600 H* > 600 H* 02/11/23 02/11/23 11:50 11:54 Glucose 1691 H* POC Glucose > 600 H* OUTPATIENT ANTIDIABETIC REGIMEN: * empagliflozin 10mg PO daily * metformin 500mg PO BID HbA1C:____ ASSESSMENT: * Patient is a 62 year old male with a history of DM2 admitted with altered mental status in the setting of possible noncompliance, in [facility]. Pharmacy consulted to assist with glycemic management. * Initial labs: pH-7.29, HCO3-22, AG-19, BSG 1691mg/dL. NPO, Plasmalyte with 40mEQ KCl running at 250mL/hr. * Insulin infusion initiated per DKA/HHS protocol. Potassium-containing IVF initiated. Continue insulin drip per protocol until AG closed and improved mental status. Serum glucose required until BSG <600. [facility] BSG goal 250-350mg/dl- dextrose containing IVF to begin once BSG within goal range. PLAN FOR INPATIENT GLYCEMIC CONTROL: * Hold outpatient oral diabetes medications * Basal insulin * regular insulin infusion per DKA/HHS protocol * Bolus insulin * NovoLog per scale ACHS or Q6hrs while NPO * Goal Range: Low 250 mg/dL - High 350 mg/dL * Correction Factor: __ mg/dL/unit * Nutritional / Prandial insulin per carb ratio of 1 unit per 12 grams CHO consumed
[2023-02-11 14:44] LABS: Magnesium 2.6 mg/dl (1.7-2.4); Phosphorus 2.8 mg/dl (2.5-4.9)
[2023-02-11 15:23] LABS: HCO3 ABG 26 mmol/L (19-24); Oxygen Saturation ABG 99.4 % (90-95); PCO2 ABG 49 mmHg (35-46); PO2 ABG 152 mmHg (80-95); pH ABG 7.34 (7.35-7.45)
[2023-02-11 15:24] LABS: Allen Test Pos (Pos)
[2023-02-11] MEDS ORDERED: POTASSIUM CHLORIDE 40 MEQ in SODIUM CHLORIDE 0.45 % 1,000 ML IV SCH (15:35)
[2023-02-11 16:06] LABS: BUN Creatinine Ratio 17.6 (10-20); Calcium 9.5 mg/dl (8.6-10.3); Creatinine Clr Calc Pharmacy 59.9 ml/min; Est GFR (African American) 76.5 ml/min; Potassium 3.6 mmol/L (3.5-5.1)
--- NOTE | 2023-02-11 16:35 | Electrocardiogram Report ---
Test Reason : Blood Pressure : / mmHG Vent. Rate : 103 BPM Atrial Rate : 103 BPM P-R Int : 184 ms QRS Dur : 096 ms QT Int : 372 ms P-R-T Axes : 070 071 017 degrees QTc Int : 487 ms Sinus tachycardia Abnormal ECG When compared with ECG of 22-SEP-2022 00:37, WA interval has decreased ST no longer elevated in Inferior leads Nonspecific T wave abnormality now evident in Inferior leads Nonspecific T wave abnormality now evident in Lateral leads Confirmed by Ted Dickens ([id number]) on 02/11/2023 4:34:44 PM Referred By: Confirmed By:Ted Dickens
[2023-02-11] MEDS ORDERED: DEXTROSE 50% 50 ML SYRINGE IV STA ×2 (16:51→18:29)
[2023-02-11] MEDS ORDERED: Nursing to Pharmacy Communication SCH ×2 (17:00→18:30)
[2023-02-11] MEDS: INSULIN ASPART PER UNIT CHARGE SC SCH ×2 (17:00→21:06)
[2023-02-11 18:00] LABS: Magnesium 2.7 mg/dl (1.7-2.4); Phosphorus 2.6 mg/dl (2.5-4.9)
[2023-02-11] MEDS ORDERED: SODIUM CHLORIDE 0.45 % 1,000 ML IV SCH (18:30)
[2023-02-11] MEDS: carvediloL 3.125 MG TAB PO SCH (18:42)
[2023-02-11 20:14] LABS: Base Excess ABG 1.5 mEq/L (-9-1.8); HCO3 ABG 27 mmol/L (19-24); Oxygen Saturation ABG 98.6 % (90-95); PCO2 ABG 46 mmHg (35-46); PO2 ABG 151 mmHg (80-95); pH ABG 7.38 (7.35-7.45)
[2023-02-11 20:19] LABS: Allen Test Pos (Pos)
[2023-02-11 20:42] LABS: BUN Creatinine Ratio 16.7 (10-20); Calcium 9.6 mg/dl (8.6-10.3); Creatinine Clr Calc Pharmacy 69.9 ml/min; Est GFR (African American) 92.2 ml/min; Est GFR (Non-African American) 79.5 ml/min; Potassium 4.1 mmol/L (3.5-5.1)
[2023-02-11] MEDS ORDERED: D5W AND 1/2NSS 1,000 ML IV SCH (21:00)
[2023-02-11] MEDS: HEPARIN SOD 5,000 UNIT/0.5 ML VIAL SQ SCH (21:17)
[2023-02-11 22:02] LABS: Magnesium 2.7 mg/dl (1.7-2.4); Phosphorus 2.7 mg/dl (2.5-4.9)
[2023-02-11 23:20] LABS: Base Excess ABG 1.7 mEq/L (-9-1.8); HCO3 ABG 27 mmol/L (19-24); Oxygen Saturation ABG > 100.0 % (90-95); PCO2 ABG 42 mmHg (35-46); PO2 ABG 153 mmHg (80-95); pH ABG 7.41 (7.35-7.45)
[2023-02-11 23:21] LABS: Allen Test Pos (Pos)
[2023-02-12 00:08] LABS: Calcium 9.6 mg/dl (8.6-10.3); Creatinine Clr Calc Pharmacy 75.9 ml/min; Est GFR (African American) 101.7 ml/min; Est GFR (Non-African American) 87.8 ml/min; Potassium 4.2 mmol/L (3.5-5.1)
[2023-02-12] MEDS: INSULIN REGULAR 250 UNITS in SODIUM CHLORIDE 0.9% 247.5 ML IV SCH (00:46)
[2023-02-12] MEDS: SODIUM CHLOR 0.45% + 20MEQ KCL 20 MEQ/1,000 ML BAG IV SCH ×2 (01:00→06:18)
[2023-02-12 03:07] LABS: BUN Creatinine Ratio 13.5 (10-20); Calcium 9.8 mg/dl (8.6-10.3); Creatinine Clr Calc Pharmacy 68.6 ml/min; Est GFR (Non-African American) 77.7 ml/min; Magnesium 2.5 mg/dl (1.7-2.4); Phosphorus 2.1 mg/dl (2.5-4.9); Potassium 3.8 mmol/L (3.5-5.1)
[2023-02-12] MEDS ORDERED: POTASSIUM PHOS 3 MMOL/1 ML INFUSION IV STA (03:12)
[2023-02-12] MEDS ORDERED: POTASSIUM PHOSPHATE 15 MMOL in SODIUM CHLORIDE 0.9% 250 ML IV ONE (03:30)
[2023-02-12] MEDS: D5W AND 1/2NSS + 20MEQ KCL 20 MEQ/1,000 ML BAG IV SCH ×2 (06:17→11:39)
[2023-02-12] MEDS: INSULIN ASPART PER UNIT CHARGE SC SCH ×4 (07:47→21:11)
--- NOTE | 2023-02-12 07:58 | Critical Care Progress Note ---
Date of Service February 12, 2023 Assessment & Plan (1) Hyperosmolar hyperglycemic state (HHS): (2) Alcohol abuse: (3) IDALIA (acute kidney injury): (4) Metabolic encephalopathy: (5) HTN (hypertension): (6) HLD (hyperlipidemia): (7) Depression: (8) High anion gap metabolic acidosis: Plan Reason Critically Ill: 62-year-old male past medical history of hypertension, alcohol use, dyslipidemia presented to hospital with altered mental status. He was found to be in HHS Neuro - [facility] ICU: Negative --Metabolic encephalopathy Likely from underlying hyperglycemia CT head 02/11/2023: No acute intracranial abnormality --Depression On duloxetine --History of heavy alcohol abuse Drinks 2-3 glasses of hard liquor on a daily basis Continue to monitor right now. Continue with CIWA protocol Cardiac - -- Hypertension Continue with Coreg Hold lisinopril given IDALIA EKG 02/11/2023: Sinus tachycardia, normal axis, no ST-T wave changes, QTc 487 Respiratory - -- History of cigar smoking Not in any respiratory distress right now GI - -- No active issues RENAL/LYTES - -- IDALIA --> improving Follow-up urine lites Monitor BUN/creatinine Avoid nephrotoxic medications Strict ins and outs - -- No active issues ENDO - --Hyperosmolar hyperglycemic state Continue with insulin drip until anion gap closes Decreasing blood glucose no more than 100 in an hour Replace potassium IV when potassium level between 3.3-5.3 BMP every 4 hours Continue with IV fluids Trace counts in the urine -- S/p HAGMA Delta-delta: Greater than 2 Likely sec to metabolic acidosis from lactic acidosis plus alkalosis, there is a component of respiratory acidosis as well Follow up serum osm, urine osm, urine lytes ABG 7.29/49/76 on 2 L Monitor -- Hyper natremia Continue with half NS HEME - -- Normocytic anemia Continue to monitor H&H ID - -- No clear source of infection Chest x-ray clean, urine clean --Prophylaxis VTE: Heparin GI: None Lines: Peripheral Diet: NPO Plan: In/out: +3.4 L, urine output 30-50 Currently on D5 half NS at 200 mL an hour. We will start the patient on diabetic diet once he starts eating we will discontinue D5 and give only half NS at 75 mill an hour. Case discussed with pharmacist start bridging to subcu insulin I have personally spent 37 minutes of critical care time in the direct management of this patient. This is a life/limb threatening event. This includes time spent evaluating patient, direct bedside care, chart review, placing orders, interpretation of diagnostic studies, discussion with consultants, patient, and family members, as well as other required patient management activities. This time is exclusive of all separately billable procedures, and teaching time and separate from and in addition to any other critical care service time. Admission and Anticipated Discharge Date Admission Date: February 11, 2023 Subjective Patient seen and examined at bedside. No acute distress. Yesterday in the evening patient's blood sugar was dropping more than expected. Insulin drip was dropped twice and patient was given D50. Today he was sleeping but on waking up he answered questions appropriately Denied any chest pain, no abdominal pain, no nausea vomiting Asking for food. Denied any headache or blurry vision. Review of Systems Review of Systems: All systems reviewed & are unremarkable except as noted in Subjective Physical Exam Physical Exam: Constitutional: No acute distress HEENT: EOMI, PERRLA Respiratory system: Good air entry bilaterally, no wheeze, no rhonchi, no crackles CVS: S1-S2 positive, no murmurs or gallops Abdomen: Soft, nontender, nondistended, positive bowel sounds x4 Extremities: +2 pulses bilaterally radialis/left dorsalis pedis, no cyanosis, +1 edema left lower extremity, right BKA Neuro: Awake alert oriented to self and place Psych: Normal mood and affect G/U: No Saravia Skin: no rashes, warm and dry Lymphatic: no cervical or axillary lymphadenopathy Results & Data Results & Data Vital Signs (Past 12 Hours) Vital Signs Temp Pulse Pulse Resp BP Pulse Ox O2 Del Method 02/12/23 07:00 37.2 C 78 16 98 02/12/23 07:00 128/89 02/12/23 06:00 37.1 C 79 18 99 02/12/23 06:00 125/84 02/12/23 05:00 37.0 C 87 18 96 02/12/23 05:00 127/82 02/12/23 04:00 37.1 C 83 17 98 02/12/23 04:00 126/84 02/12/23 03:00 37.1 C 83 19 99 02/12/23 03:00 133/86 02/12/23 02:00 37.1 C 82 16 99 02/12/23 02:00 131/90 02/12/23 01:00 37.0 C 76 16 100 02/12/23 01:00 140/90 02/12/23 00:00 37.0 C 77 16 100 Nasal Cannula 02/12/23 00:00 78 02/12/23 00:00 37.0 C 77 16 100 02/12/23 00:00 150/93 H 02/11/23 23:00 36.9 C 81 17 100 02/11/23 23:00 137/88 02/11/23 22:00 36.9 C 78 19 100 02/11/23 22:00 141/91 H 02/11/23 21:00 36.8 C 77 14 100 02/11/23 21:00 139/87 02/11/23 20:00 36.7 C 76 15 100 02/11/23 20:00 147/91 H 02/11/23 20:00 Nasal Cannula O2 Flow Rate 02/12/23 07:00 02/12/23 07:00 02/12/23 06:00 02/12/23 06:00 02/12/23 05:00 02/12/23 05:00 02/12/23 04:00 02/12/23 04:00 02/12/23 03:00 02/12/23 03:00 02/12/23 02:00 02/12/23 02:00 02/12/23 01:00 02/12/23 01:00 02/12/23 00:00 2 02/12/23 00:00 02/12/23 00:00 02/12/23 00:00 02/11/23 23:00 02/11/23 23:00 02/11/23 22:00 02/11/23 22:00 02/11/23 21:00 02/11/23 21:00 02/11/23 20:00 02/11/23 20:00 02/11/23 20:00 2 Laboratory Results 02/12/23 07:21 02/12/23 07:21 Coding Level of Care Code 57430 CRITICAL CARE 1ST 30-74M Diagnoses Hyperosmolar hyperglycemic state (HHS) E11.00 Alcohol abuse F10.10 IDALIA (acute kidney injury) N17.9 Metabolic encephalopathy G93.41 HTN (hypertension) I10 Hypertension type: unspecified HLD (hyperlipidemia) E78.5 Hyperlipidemia type: unspecified Depression F32.9 Depression Type: unspecified High anion gap metabolic acidosis E87.29 Time Spent (min) 37 (5) HTN (hypertension) Hypertension type: unspecified Qualified Code(s): I10 - Essential (primary) hypertension (6) HLD (hyperlipidemia) Hyperlipidemia type: unspecified Qualified Code(s): E78.5 - Hyperlipidemia, unspecified (7) Depression Depression Type: unspecified Qualified Code(s): F32.9 - Major depressive disorder, single episode, unspecified
[2023-02-12 08:17] LABS: Basophils # (auto) 0.01 K/uL (0.00-0.20); Basophils % (auto) 0.1 %; Hematocrit (blood only) 30.1 % (42.0-52.0); Hemoglobin 10.8 g/dl (14.0-18.0); Immature Granulocytes # (auto) 0.02 K/uL (0.01-0.20); Immature Granulocytes % (auto) 0.3 %; Lymphocytes # (auto) 1.44 K/uL (1.20-3.40); Lymphocytes % (auto) 18.7 %; Mean Corpuscular Hemoglobin 28.2 pg (25.0-34.0); Mean Corpuscular Hgb Conc 35.9 g/dL (32.0-36.0); Mean Corpuscular Volume 78.6 fL (80.0-100.0); Mean Platelet Volume 10.2 fL (9.4-12.4); Monocytes # (auto) 1.48 K/uL (0.11-0.59); Monocytes % (auto) 19.2 %; Neutrophils # (auto) 4.77 K/uL (1.40-6.50); Neutrophils % (auto) 61.7 %; Platelet Count 160 K/uL (130-400); RDW Coefficient of Variation 13.1 % (11.5-14.5); RDW Standard Deviation 36.9 fL (36.4-46.3); Red Blood Count 3.83 M/uL (4.70-6.10); White Blood Count 7.72 K/ul (4.8-10.8)
[2023-02-12 08:18] LABS: Calcium 9.7 mg/dl (8.6-10.3); Creatinine Clr Calc Pharmacy 90.7 ml/min; Est GFR (Non-African American) 96.6 ml/min; Magnesium 2.3 mg/dl (1.7-2.4); Phosphorus 2.2 mg/dl (2.5-4.9); Potassium 3.8 mmol/L (3.5-5.1)
[2023-02-12] MEDS: HEPARIN SOD 5,000 UNIT/0.5 ML VIAL SQ SCH ×2 (09:45→21:11)
[2023-02-12] MEDS: carvediloL 3.125 MG TAB PO SCH ×2 (09:46→17:17)
[2023-02-12] MEDS ORDERED: LORazepam 2 MG/1 ML VIAL IV PRN ×3 (09:49)
[2023-02-12] MEDS ORDERED: Ativan IV Alcohol Withdrawal--Active Protocol IV PRN (09:49)
[2023-02-12 10:04] LABS: Magnesium 2.3 mg/dl (1.7-2.4); Phosphorus 2.2 mg/dl (2.5-4.9)
[2023-02-12 10:08] LABS: Estimated Average Glucose > 438 mg/dl; Hemoglobin A1C > 16.9 % (4.5-5.6)
[2023-02-12] MEDS ORDERED: LANTUS PER UNIT CHARGE SC ONE (10:30)
[2023-02-12] MEDS: SODIUM CHLORIDE 0.45 % 1,000 ML IV SCH (11:50)
--- NOTE | 2023-02-12 13:42 | Pharmacy Report ---
Pharmacy Glycemic Short Note 2 - Date of Service February 12, 2023 - Glycemic Short BSG Results (Last 24 hours): 02/11/23 02/11/23 02/11/23 14:50 15:05 17:26 Glucose 907 H* 776 H* POC Glucose > 600 H* 02/11/23 02/11/23 02/11/23 19:48 21:25 23:05 Glucose 713 H* 656 H* 620 H* POC Glucose 02/12/23 02/12/23 02/12/23 00:27 01:21 02:09 Glucose POC Glucose > 600 H* 536 H* 567 H* 02/12/23 02/12/23 02/12/23 02:17 03:04 03:10 Glucose 503 H* POC Glucose 566 H* 534 H* 02/12/23 02/12/23 02/12/23 03:59 05:01 05:59 Glucose POC Glucose 408 H* 344 H* 256 H 02/12/23 02/12/23 02/12/23 07:03 07:21 08:52 Glucose 183 H POC Glucose 205 H 200 H 02/12/23 02/12/23 02/12/23 10:01 11:02 12:00 Glucose POC Glucose 221 H 261 H 300 H 02/12/23 13:00 Glucose POC Glucose 203 H OUTPATIENT ANTIDIABETIC REGIMEN: * empagliflozin 10mg PO daily * metformin 500mg PO BID HbA1C: >16.9% (02/12/23) ASSESSMENT: 02/12/23 * Patient continues on insulin infusion @ 2.1 units/hr + D5 @ 200 mL/hr. * Per conversation between ICU pharmacist and electric freight car operator, patient to be transitioned off insulin infusion. * Per rates of insulin drip, patient is requiring ~48 units/day with D5 @ 200 mL/hr. Will reduce this slightly as dextrose will be cut. * Lantus 30 units SQ x 1 (almost full weight-based stress of 3). Stop infusion @ 1999 or when drip turns itself off. * Novolog weight-based stress of 3. BACKGROUND * Patient is a 62 year old male with a history of DM2 admitted with altered mental status in the setting of possible noncompliance, in [facility]. Pharmacy consulted to assist with glycemic management. * Initial labs: pH-7.29, HCO3-22, AG-19, BSG 1691mg/dL. NPO, Plasmalyte with 40mEQ KCl running at 250mL/hr. * Insulin infusion initiated per DKA/HHS protocol. Potassium-containing IVF initiated. Continue insulin drip per protocol until AG closed and improved mental status. Serum glucose required until BSG <600. [facility] BSG goal 250-350mg/dl- dextrose containing IVF to begin once BSG within goal range. PLAN FOR INPATIENT GLYCEMIC CONTROL: * Hold outpatient oral diabetes medications * Basal insulin * Lantus 30 units SQ x 1 and re-evaluate on 02/13/23 * Bolus insulin * NovoLog per scale ACHS or Q6hrs while NPO * Goal Range: Low 120 mg/dL - High 160 mg/dL * Correction Factor: 25 mg/dL/unit * Nutritional / Prandial insulin per carb ratio of 1 unit per 8 grams CHO consumed
--- NOTE | 2023-02-12 15:25 | Hospitalist Progress Note ---
Date of Service February 12, 2023 Assessment & Plan (1) Hyperosmolar hyperglycemic state (HHS): (2) Alcohol abuse: (3) HTN (hypertension): (4) HLD (hyperlipidemia): (5) Hx of right BKA: (6) Tobacco abuse: Plan: 62-year-old male with PMHx of alcohol abuse, recurrent acute pancreatitis, hypertension, hyperlipidemia MDD, status post right below the knee amputation, who presents to the hospital with acute onset of altered mental status/lethary and stupor. On admission patient is found to have a glucose of 1819, anion gap of 19, sodium 115, potassium 4.3. Lactic acid of 4.4, his VBG's is significant for acidosis with pH of 7.3, and pCO2 of 62. He was started on an insulin drip for HHS after being administered NSS for volume resuscitation. HHS Metabolic acidosis plus alkalosis, also respiratory acidosis Recurrent pancreatitis Alcohol abuse DM type II, diagnosed April 2022 -Admit to ICU -Discussed with endless belt finisher on-call, Dr. Guerrier -This is possibly worsened due to medication noncompliance? Patient is unable to go through [place] but states that he has not been taking his medications. Denies drinking any alcohol today, alcohol level is negative. Unknown time of last alcoholic drink. -Does not appear to be alcohol induced at this time, lipase is negative, no abdominal pain or complaints -Does not appear to be infectious: Afebrile, WBC 4.68 on admission however will cover empirically with ceftriaxone IV in the setting, - metabolic acidosis plus alkalosis, there is a component of respiratory acidosis as well -Follow urine studies, urine culture pending, blood culture x2 -Continue insulin drip, has received 2 L NSS so far, continue at least 3L total bolus then start Plasma-Lyte at 250 mL/h + KCl 40 mEq -Give additional potassium 20 mEq right now for level of 4.3 -Sodium of 115 on admission, corrected is in the 130s secondary to pseudo hyponatremia with glucose levels of >1800 on admission -Anion gap of 19, lactic acidosis of 4.4 -ABG showing pH of 7.29, PCO2 49, PO2 76, - recheck ABG and BMP Q4H, glucose Q1H - Last A1c was 6.9 in September 2019 -Holding Jardiance and metformin 02/12 A1c 16.9 Blood glucose improving We will transition from insulin drip to subcutaneous insulin soon No focus of infection at this point Will need dry cleaning machine operator helper May also need to transition to acute rehab HTN -Chronic, stable -on clonidine 0.1 mg BID, carvedilol 3.125mg BID, lisinopril 20 mg QD MDD -Continue on duloxetine 20 mg daily Tobacco abuse -Cessation of smoking will need to be encouraged prior to discharge, still smoking 4 to 5 cigarettes/day CODE: Full Dispo: May possibly need acute rehab Admission and Anticipated Discharge Date Admission Date: February 11, 2023 Subjective Follow-up for HHS, etc. Seen resting in bed, comfortable, not in distress States he feels fine overall Denies headache, dizziness, nausea or vomiting no chest pain, dyspnea, palpitations, dizziness Patient states he is not aware that he has diabetes Reports he is not taking any diabetic medications at home Denies cough, abdominal pain, problems with urination or bowel movement, or any other signs of infection Review of Systems Review of Systems: all noted and negative except for above Physical Exam Physical Exam: General- oriented x 3, not in distress, speaks in sentences with no effort or accessory muscle use Eyes- anicteric Neck- no JVD Lungs- clear breath sounds bilaterally, no rales/wheezes Heart- normal rate, regular rhythm; no murmurs Abdomen- normal bowel sounds, nondistended, soft, nontender Extremities- no pretibial edema, no calf tenderness R BKA Neuro- alert, oriented x 3; no gross focal neurologic deficits Skin- warm & dry Results & Data Results & Data Vital Signs (Past 12 Hours) Vital Signs Temp Pulse Resp BP Pulse Ox O2 Del Method 02/12/23 08:00 Room Air 02/12/23 07:00 37.2 C 78 16 98 02/12/23 07:00 128/89 02/12/23 06:00 37.1 C 79 18 99 02/12/23 06:00 125/84 02/12/23 05:00 37.0 C 87 18 96 02/12/23 05:00 127/82 02/12/23 04:00 37.1 C 83 17 98 02/12/23 04:00 126/84 all noted and reviewed including below (3) HTN (hypertension) Hypertension type: unspecified Qualified Code(s): I10 - Essential (primary) hypertension (4) HLD (hyperlipidemia) Hyperlipidemia type: unspecified Qualified Code(s): E78.5 - Hyperlipidemia, unspecified
[2023-02-12] MEDS ORDERED: DC IV INSULIN INFUSION 1 EA DEVI ONE (20:00)
[2023-02-12] MEDS ORDERED: INSULIN ASPART PER UNIT CHARGE SC SCH (21:00)
[2023-02-13] MEDS: INSULIN ASPART PER UNIT CHARGE SC SCH ×6 (00:15→21:18)
[2023-02-13] MEDS: SODIUM CHLORIDE 0.45 % 1,000 ML IV SCH ×2 (01:02→14:13)
[2023-02-13 05:08] LABS: Basophils # (auto) 0.01 K/uL (0.00-0.20); Basophils % (auto) 0.1 %; Eosinophils # (auto) 0.12 K/uL (0.00-0.50); Eosinophils % (auto) 1.7 %; Hematocrit (blood only) 28.7 % (42.0-52.0); Hemoglobin 10.1 g/dl (14.0-18.0); Immature Granulocytes # (auto) 0.02 K/uL (0.01-0.20); Immature Granulocytes % (auto) 0.3 %; Lymphocytes # (auto) 2.55 K/uL (1.20-3.40); Lymphocytes % (auto) 35.6 %; Mean Corpuscular Hemoglobin 28.5 pg (25.0-34.0); Mean Corpuscular Hgb Conc 35.2 g/dL (32.0-36.0); Mean Corpuscular Volume 81.1 fL (80.0-100.0); Mean Platelet Volume 10.5 fL (9.4-12.4); Monocytes # (auto) 0.69 K/uL (0.11-0.59); Monocytes % (auto) 9.6 %; Neutrophils # (auto) 3.77 K/uL (1.40-6.50); Neutrophils % (auto) 52.7 %; Nucleated RBC # (auto) 0.03 K/uL (0.00-0.12); Nucleated RBC % (auto) 0.4 %; Platelet Count 144 K/uL (130-400); RDW Coefficient of Variation 13.2 % (11.5-14.5); RDW Standard Deviation 39.1 fL (36.4-46.3); Red Blood Count 3.54 M/uL (4.70-6.10); White Blood Count 7.16 K/ul (4.8-10.8)
[2023-02-13] MEDS: carvediloL 3.125 MG TAB PO SCH ×2 (08:34→17:16)
[2023-02-13] MEDS: HEPARIN SOD 5,000 UNIT/0.5 ML VIAL SQ SCH ×2 (08:34→21:18)
[2023-02-13] MEDS: LANTUS PER UNIT CHARGE SC SCH (08:37)
--- NOTE | 2023-02-13 17:29 | Hospitalist Progress Note ---
Date of Service February 13, 2023 Assessment & Plan (1) Hyperosmolar hyperglycemic state (HHS): (2) Alcohol abuse: (3) HTN (hypertension): (4) HLD (hyperlipidemia): (5) Hx of right BKA: (6) Tobacco abuse: Plan: 62-year-old male with PMHx of alcohol abuse, recurrent acute pancreatitis, hypertension, hyperlipidemia MDD, status post right below the knee amputation, who presents to the hospital with acute onset of altered mental status/lethary and stupor. On admission patient is found to have a glucose of 1819, anion gap of 19, sodium 115, potassium 4.3. Lactic acid of 4.4, his VBG's is significant for acidosis with pH of 7.3, and pCO2 of 62. He was started on an insulin drip for HHS after being administered NSS for volume resuscitation. HHS Metabolic acidosis plus alkalosis, also respiratory acidosis Recurrent pancreatitis Alcohol abuse DM type II, diagnosed April 2022 -Admit to ICU -Discussed with income tax advisor on-call, Dr. Guerrier -This is possibly worsened due to medication noncompliance? Patient is unable to go through [facility] but states that he has not been taking his medications. Denies drinking any alcohol today, alcohol level is negative. Unknown time of last alcoholic drink. -Does not appear to be alcohol induced at this time, lipase is negative, no abdominal pain or complaints -Does not appear to be infectious: Afebrile, WBC 4.68 on admission however will cover empirically with ceftriaxone IV in the setting, - metabolic acidosis plus alkalosis, there is a component of respiratory acidosis as well -Follow urine studies, urine culture pending, blood culture x2 -Continue insulin drip, has received 2 L NSS so far, continue at least 3L total bolus then start Plasma-Lyte at 250 mL/h + KCl 40 mEq -Give additional potassium 20 mEq right now for level of 4.3 -Sodium of 115 on admission, corrected is in the 130s secondary to pseudo hyponatremia with glucose levels of >1800 on admission -Anion gap of 19, lactic acidosis of 4.4 -ABG showing pH of 7.29, PCO2 49, PO2 76, - recheck ABG and BMP Q4H, glucose Q1H - Last A1c was 6.9 in September 2019 -Holding Jardiance and metformin 02/13 A1c 16.9 Blood glucose improving transitioned from insulin drip to subcutaneous insulin No focus of infection at this point Will need educator senior clinical May also need to transition to acute rehab HTN -Chronic, stable -on clonidine 0.1 mg BID, carvedilol 3.125mg BID, lisinopril 20 mg QD MDD -Continue on duloxetine 20 mg daily Tobacco abuse -Cessation of smoking will need to be encouraged prior to discharge, still smoking 4 to 5 cigarettes/day CODE: Full Dispo: PT/OT [facility] may need to transition to acute rehab Admission and Anticipated Discharge Date Admission Date: February 11, 2023 Subjective ff up for HHS, etc seen resting in bed, comfortable sleeping but easily awakened states he feels fine overall has some blurring of vision earlier, improving no chest pain, dyspnea, palpitations, dizziness no cough, sputum, abdominal pain, nausea/vomiting, problems with urination or bowel movement no other symptoms Review of Systems Review of Systems: all noted and negative except for above Physical Exam Physical Exam: General- oriented x 3, not in distress, speaks in sentences with no effort or accessory muscle use Eyes- anicteric Neck- no JVD Lungs- clear breath sounds bilaterally no rales/wheezing Heart- normal rate, regular rhythm; no murmurs Abdomen- normal bowel sounds, nondistended, soft, no tenderness Extremities- no pretibial edema, no calf tenderness Neuro- alert, oriented x 3; no gross focal neurologic deficits Skin- warm & dry Results & Data Results & Data Vital Signs (Past 12 Hours) Vital Signs Temp Pulse Resp BP Pulse Ox O2 Del Method 02/13/23 08:00 Room Air 02/13/23 08:00 98 H 02/13/23 08:00 37.4 C 81 21 97 Room Air 02/13/23 08:00 141/96 H all noted and reviewed including below (3) HTN (hypertension) Hypertension type: unspecified Qualified Code(s): I10 - Essential (primary) hypertension (4) HLD (hyperlipidemia) Hyperlipidemia type: unspecified Qualified Code(s): E78.5 - Hyperlipidemia, unspecified
[2023-02-13 23:21] LABS: BUN Creatinine Ratio 14.5 (10-20); Calcium 8.8 mg/dl (8.6-10.3); Creatinine Clr Calc Pharmacy 88.5 ml/min; Est GFR (African American) 110.8 ml/min; Est GFR (Non-African American) 95.6 ml/min; Potassium 3.3 mmol/L (3.5-5.1)
[2023-02-13] MEDS ORDERED: POTASSIUM CHLORIDE CRTAB 20 MEQ TABCR PO STA (23:32)
[2023-02-13] MEDS ORDERED: Nursing to Pharmacy Communication SCH (23:45)
[2023-02-13] MEDS ORDERED: NSS + 20MEQ KCL 20 MEQ/1,000 ML BAG IV ONE (23:45)
[2023-02-13 23:54] LABS: Magnesium 1.6 mg/dl (1.7-2.4)
[2023-02-14 07:57] LABS: Eosinophils # (auto) 0.08 K/uL (0.00-0.50); Eosinophils % (auto) 1.3 %; Hematocrit (blood only) 29.4 % (42.0-52.0); Hemoglobin 10.3 g/dl (14.0-18.0); Immature Granulocytes # (auto) 0.03 K/uL (0.01-0.20); Immature Granulocytes % (auto) 0.5 %; Lymphocytes # (auto) 2.64 K/uL (1.20-3.40); Lymphocytes % (auto) 42.2 %; Mean Corpuscular Hemoglobin 28.1 pg (25.0-34.0); Mean Corpuscular Volume 80.3 fL (80.0-100.0); Mean Platelet Volume 10.5 fL (9.4-12.4); Monocytes # (auto) 0.71 K/uL (0.11-0.59); Monocytes % (auto) 11.3 %; Neutrophils % (auto) 44.7 %; Platelet Count 149 K/uL (130-400); RDW Coefficient of Variation 13.5 % (11.5-14.5); RDW Standard Deviation 39.1 fL (36.4-46.3); Red Blood Count 3.66 M/uL (4.70-6.10); White Blood Count 6.26 K/ul (4.8-10.8)
[2023-02-14] MEDS: carvediloL 3.125 MG TAB PO SCH ×2 (08:02→17:53)
[2023-02-14] MEDS: HEPARIN SOD 5,000 UNIT/0.5 ML VIAL SQ SCH ×2 (08:04→20:59)
[2023-02-14 08:35] LABS: Calcium 8.7 mg/dl (8.6-10.3); Creatinine Clr Calc Pharmacy 106.4 ml/min; Est GFR (African American) 119.6 ml/min; Est GFR (Non-African American) 103.2 ml/min; Magnesium 1.6 mg/dl (1.7-2.4); Phosphorus 3.5 mg/dl (2.5-4.9); Potassium 3.8 mmol/L (3.5-5.1)
[2023-02-14] MEDS: INSULIN ASPART PER UNIT CHARGE SC SCH ×4 (09:04→20:58)
[2023-02-14] MEDS: LANTUS PER UNIT CHARGE SC SCH (09:05)
[2023-02-14] MEDS ORDERED: INSULIN HUMAN REGULAR PER UNIT 6 UNITS in SYRINGE 5.94 ML IV ONE (11:30)
--- NOTE | 2023-02-14 13:38 | Pharmacy Report ---
Pharmacy Glycemic Short Note 2 - Date of Service February 14, 2023 - Glycemic Short BSG Results (Last 24 hours): 02/13/23 02/13/23 02/13/23 16:13 20:24 22:28 Glucose 192 H POC Glucose 183 H 239 H 02/14/23 02/14/23 02/14/23 07:26 08:01 11:19 Glucose 253 H POC Glucose 337 H* 407 H* 02/14/23 02/14/23 11:22 11:24 Glucose POC Glucose 453 H* 334 H* OUTPATIENT ANTIDIABETIC REGIMEN: * empagliflozin 10mg PO daily * metformin 500mg PO BID HbA1C: >16.9% (02/12/23) ASSESSMENT: 02/14: * Patient BSGs 37-221-180-239 mg/dL yesterday with 42 units of insulin * Fasting this morning 337 mg/dL- confirmed with RN, did not believe patient had been eating prior to this result, somewhat conflicting with previous fasting of 89 mg/dL with 20 units of lantus, will add additional 5/10 units scale for PM * BSG still elevated at lunch, will give 6 unit IV bolus, 5 units of correctional novolog (Breakfast insulin had just been administered ~0900) + carb coverage. * Tightened carb coverage. Will monitor for additional changes, add over night checks. 02/12/23 * Patient continues on insulin infusion @ 2.1 units/hr + D5 @ 200 mL/hr. * Per conversation between ICU pharmacist and fleet assistant, patient to be transitioned off insulin infusion. * Per rates of insulin drip, patient is requiring ~48 units/day with D5 @ 200 mL/hr. Will reduce this slightly as dextrose will be cut. * Lantus 30 units SQ x 1 (almost full weight-based stress of 3). Stop infusion @ 1999 or when drip turns itself off. * Novolog weight-based stress of 3. BACKGROUND * Patient is a 62 year old male with a history of DM2 admitted with altered mental status in the setting of possible noncompliance, in [facility]. Pharmacy consulted to assist with glycemic management. * Initial labs: pH-7.29, HCO3-22, AG-19, BSG 1691mg/dL. NPO, Plasmalyte with 40mEQ KCl running at 250mL/hr. * Insulin infusion initiated per DKA/HHS protocol. Potassium-containing IVF initiated. Continue insulin drip per protocol until AG closed and improved mental status. Serum glucose required until BSG <600. [facility] BSG goal 250-350mg/dl- dextrose containing IVF to begin once BSG within goal range. PLAN FOR INPATIENT GLYCEMIC CONTROL: * Hold outpatient oral diabetes medications * Basal insulin * Lantus 20 units this AM, 5/10 units per scale PM- need re-evaluated 02/15 * Bolus insulin * NovoLog per scale ACHS or Q6hrs while NPO * Goal Range: Low 120 mg/dL - High 160 mg/dL * Correction Factor: 25 mg/dL/unit * Nutritional / Prandial insulin per carb ratio of 1 unit per 6 grams CHO consumed
--- NOTE | 2023-02-14 18:41 | Hospitalist Progress Note ---
"Date of Service February 14, 2023 Assessment & Plan (1) Hyperosmolar hyperglycemic state (HHS): (2) Alcohol abuse: (3) HTN (hypertension): (4) HLD (hyperlipidemia): (5) Hx of right BKA: (6) Tobacco abuse: Plan: 62-year-old male with PMHx of alcohol abuse, recurrent acute pancreatitis, hypertension, hyperlipidemia MDD, status post right below the knee amputation, who presents to the hospital with acute onset of altered mental status/lethary and stupor. On admission patient is found to have a glucose of 1819, anion gap of 19, sodium 115, potassium 4.3. Lactic acid of 4.4, his VBG's is significant for acidosis with pH of 7.3, and pCO2 of 62. He was started on an insulin drip for HHS after being administered NSS for volume resuscitation. HHS Metabolic acidosis plus alkalosis, also respiratory acidosis Recurrent pancreatitis Alcohol abuse DM type II, diagnosed April 2022 -Admit to ICU -Discussed with clay processing factory worker on-call, Dr. Guerrier -This is possibly worsened due to medication noncompliance? Patient is unable to go through [facility] but states that he has not been taking his medications. Denies drinking any alcohol today, alcohol level is negative. Unknown time of last alcoholic drink. -Does not appear to be alcohol induced at this time, lipase is negative, no abdominal pain or complaints -Does not appear to be infectious: Afebrile, WBC 4.68 on admission however will cover empirically with ceftriaxone IV in the setting, - metabolic acidosis plus alkalosis, there is a component of respiratory acidosis as well -Follow urine studies, urine culture pending, blood culture x2 -Continue insulin drip, has received 2 L NSS so far, continue at least 3L total bolus then start Plasma-Lyte at 250 mL/h + KCl 40 mEq -Give additional potassium 20 mEq right now for level of 4.3 -Sodium of 115 on admission, corrected is in the 130s secondary to pseudo hyponatremia with glucose levels of >1800 on admission -Anion gap of 19, lactic acidosis of 4.4 -ABG showing pH of 7.29, PCO2 49, PO2 76, - recheck ABG and BMP Q4H, glucose Q1H - Last A1c was 6.9 in September 2019 -Holding Jardiance and metformin 02/14 A1c 16.9 Blood glucose elevated again this morning transitioned from insulin drip to subcutaneous insulin Pharmacy glycemic control service on board, appreciate recommendations No focus of infection at this point nurses educator consult HTN -Chronic, stable -on clonidine 0.1 mg BID, carvedilol 3.125mg BID, lisinopril 20 mg QD MDD -Continue on duloxetine 20 mg daily Tobacco abuse -Cessation of smoking will need to be encouraged prior to discharge, still smoking 4 to 5 cigarettes/day CODE: Full Dispo: PT/OT eval: Candidate for DC home Will need home health services in light of uncontrolled diabetes type 2 Admission and Anticipated Discharge Date Admission Date: February 11, 2023 Subjective ff up for hyperglycemia, etc. Seen resting in bed, watching TV, in good spirits States he feels fine overall Denies nausea, dizziness, headache No chest pain, shortness of breath No other new symptoms Physical Exam Physical Exam: General- oriented x 3, not in distress, speaks in sentences with no effort or accessory muscle use Eyes- anicteric Neck- no JVD Lungs- clear breath sounds bilaterally Heart- normal rate, regular rhythm; no murmurs Abdomen- normal bowel sounds, nondistended, soft, nontender Extremities- no pretibial edema, no calf tenderness Neuro- alert, oriented x 3; no gross focal neurologic deficits Skin- warm & dry Results & Data Results & Data Vital Signs (Past 12 Hours) Vital Signs Temp Pulse Pulse Resp BP Pulse Ox O2 Del Method 02/14/23 15:01 36.7 C 108 H 20 148/91 H 95 Room Air 02/14/23 15:17 73 02/14/23 10:28 36.8 C 83 20 118/76 97 Room Air 02/14/23 07:17 36.8 C 71 18 147/99 H 99 Room Air 02/14/23 07:25 74 all noted and reviewed including below (3) HTN (hypertension) Hypertension type: unspecified Qualified Code(s): I10 - Essential (primary) hypertension (4) HLD (hyperlipidemia) Hyperlipidemia type: unspecified Qualified Code(s): E78.5 - Hyperlipidemia, unspecified"
[2023-02-14] MEDS ORDERED: LANTUS PER UNIT CHARGE SC SCH (21:00)
[2023-02-15] MEDS: INSULIN ASPART PER UNIT CHARGE SC SCH ×6 (00:11→20:20)
[2023-02-15 08:10] LABS: BUN Creatinine Ratio 12.7 (10-20); Calcium 9.1 mg/dl (8.6-10.3); Creatinine Clr Calc Pharmacy 103.4 ml/min; Est GFR (African American) 118.2 ml/min; Magnesium 1.9 mg/dl (1.7-2.4); Phosphorus 4.1 mg/dl (2.5-4.9); Potassium 3.9 mmol/L (3.5-5.1)
[2023-02-15] MEDS ORDERED: LANTUS PER UNIT CHARGE SC SCH ×2 (09:00→12:00)
[2023-02-15] MEDS: carvediloL 3.125 MG TAB PO SCH ×2 (09:11→18:13)
[2023-02-15] MEDS: HEPARIN SOD 5,000 UNIT/0.5 ML VIAL SQ SCH ×2 (09:11→20:21)
--- NOTE | 2023-02-15 14:10 | Hospitalist Progress Note ---
Date of Service February 15, 2023 Assessment & Plan (1) Hyperosmolar hyperglycemic state (HHS): (2) Diabetes mellitus: (3) Alcohol abuse: (4) HTN (hypertension): (5) HLD (hyperlipidemia): (6) Hx of right BKA: (7) Tobacco abuse: Plan: 62-year-old male with PMHx of alcohol abuse, recurrent acute pancreatitis, hypertension, hyperlipidemia MDD, status post right below the knee amputation, who presents to the hospital with acute onset of altered mental status/lethary and stupor. On admission patient is found to have a glucose of 1819, anion gap of 19, sodium 115, potassium 4.3. Lactic acid of 4.4, his VBG's is significant for acidosis with pH of 7.3, and pCO2 of 62. He was started on an insulin drip for HHS after being administered NSS for volume resuscitation. HHS DM 2 Recurrent pancreatitis Alcohol abuse -not adherent to Jardiance and Metformin patient states he is not aware he has DM - Patient is unable to go through [facility] but states that he has not been taking his medications. Denies drinking any alcohol today, alcohol level is negative. Unknown time of last alcoholic drink. -Does not appear to be alcohol induced at this time, lipase is negative, no abdominal pain or complaints -Does not appear to be infectious: Afebrile, WBC 4.68 on admission however will cover empirically with ceftriaxone IV in the setting, - admitted to ICU, required insulin drip 02/15 off insulin drip for >2 days now A1c 16.9 Blood glucose improving currently on Lantus 25 units daily, and ISS Pharmacy glycemic control service on board--> recommend Insulin Lantus 25 units daily, and resume Metformin + Jardiance upon discharge No focus of infection at this point landscape and yardwork laborer consulted, education provided for patient, he said he is comfortable with Insulin administration no signs of alcohol withdrawal HTN -Chronic, stable -on clonidine 0.1 mg BID, carvedilol 3.125mg BID, lisinopril 20 mg QD MDD -Continue on duloxetine 20 mg daily Tobacco abuse -Cessation of smoking will need to be encouraged prior to discharge, still smoking 4 to 5 cigarettes/day CODE: Full Dispo: home health services in light of uncontrolled diabetes type 2 discussed with behavioral health case manager, patient does not meet criteria for SNF I recommended office of aging to evaluate patient for additional support plan of care discussed with patient in detail and at length all questions answered he is understanding, agreeable, comfortable with the plan of care Admission and Anticipated Discharge Date Admission Date: February 11, 2023 Subjective ff up for HHS, etc seen resting in bed, comfortable no chest pain, dyspnea, palpitations, dizziness feels fine overall no other symptoms Review of Systems Review of Systems: all noted and negative except for above Physical Exam Physical Exam: General- oriented x 3, not in distress, speaks in sentences with no effort or accessory muscle use Eyes- anicteric Neck- no JVD Lungs- clear breath sounds bilaterally, no rales/wheezes Heart- normal rate, regular rhythm; no murmurs Abdomen- normal bowel sounds, nondistended, soft, nontender Extremities- no pretibial edema, no calf tenderness R lower ext stump Neuro- alert, oriented x 3; no gross focal neurologic deficits Skin- warm & dry Results & Data Results & Data Vital Signs (Past 12 Hours) Vital Signs Temp Pulse Pulse Resp BP Pulse Ox O2 Del Method 02/15/23 08:00 Room Air 02/15/23 07:45 67 02/15/23 07:19 37 C 65 16 123/83 98 Room Air 02/15/23 04:53 37.1 C 72 20 126/84 99 Room Air all noted and reviewed including below (4) HTN (hypertension) Hypertension type: unspecified Qualified Code(s): I10 - Essential (primary) hypertension (5) HLD (hyperlipidemia) Hyperlipidemia type: unspecified Qualified Code(s): E78.5 - Hyperlipidemia, unspecified
[2023-02-15 20:17] LABS: Uric Acid, Random Urine 5 mg/dL
[2023-02-16] MEDS: HEPARIN SOD 5,000 UNIT/0.5 ML VIAL SQ SCH ×2 (09:56→21:04)
[2023-02-16] MEDS: INSULIN ASPART PER UNIT CHARGE SC SCH ×4 (09:56→21:03)
[2023-02-16] MEDS: carvediloL 3.125 MG TAB PO SCH ×2 (09:57→18:16)
[2023-02-16] MEDS: LANTUS PER UNIT CHARGE SC SCH (13:14)
--- NOTE | 2023-02-16 13:44 | Pharmacy Report ---
Pharmacy Glycemic Short Note 2 - Date of Service February 16, 2023 - Glycemic Short BSG Results (Last 24 hours): 02/15/23 02/15/23 02/16/23 17:07 20:13 08:27 POC Glucose 185 H 205 H 75 02/16/23 12:22 POC Glucose 180 H OUTPATIENT ANTIDIABETIC REGIMEN: * empagliflozin 10mg PO daily * metformin 500mg PO BID HbA1C: >16.9% (02/12/23) ASSESSMENT: 02/16/23 * BSGs yesterday were 39-960-140-205 mg/dL. Patient received 60 units of insulin (25 units of basal and 35 units of bolus). * Today's BSGs are 77-180 mg/dL. Held Lantus until lunchtime due to fasting decreasing. Decrease Lantus by 10% to 22 units. * Continue Novolog. 02/14: * Patient BSGs 31-640-587-239 mg/dL yesterday with 42 units of insulin * Fasting this morning 337 mg/dL- confirmed with RN, did not believe patient had been eating prior to this result, somewhat conflicting with previous fasting of 89 mg/dL with 20 units of lantus, will add additional 5/10 units scale for PM * BSG still elevated at lunch, will give 6 unit IV bolus, 5 units of correctional novolog (Breakfast insulin had just been administered ~0900) + carb coverage. * Tightened carb coverage. Will monitor for additional changes, add over night checks. 02/12/23 * Patient continues on insulin infusion @ 2.1 units/hr + D5 @ 200 mL/hr. * Per conversation between ICU pharmacist and recruitment consultant, patient to be transitioned off insulin infusion. * Per rates of insulin drip, patient is requiring ~48 units/day with D5 @ 200 mL/hr. Will reduce this slightly as dextrose will be cut. * Lantus 30 units SQ x 1 (almost full weight-based stress of 3). Stop infusion @ 1999 or when drip turns itself off. * Novolog weight-based stress of 3. BACKGROUND * Patient is a 62 year old male with a history of DM2 admitted with altered mental status in the setting of possible noncompliance, in [facility]. Pharmacy consulted to assist with glycemic management. * Initial labs: pH-7.29, HCO3-22, AG-19, BSG 1691mg/dL. NPO, Plasmalyte with 40mEQ KCl running at 250mL/hr. * Insulin infusion initiated per DKA/HHS protocol. Potassium-containing IVF initiated. Continue insulin drip per protocol until AG closed and improved mental status. Serum glucose required until BSG <600. [facility] BSG goal 250-350mg/dl- dextrose containing IVF to begin once BSG within goal range. PLAN FOR INPATIENT GLYCEMIC CONTROL: * Hold outpatient oral diabetes medications * Basal insulin * Lantus 22 units SQ daily * Bolus insulin * NovoLog per scale ACHS or Q6hrs while NPO * Goal Range: Low 110 mg/dL - High 140 mg/dL * Correction Factor: 30 mg/dL/unit * Nutritional / Prandial insulin per carb ratio of 1 unit per 5 grams CHO consumed
--- NOTE | 2023-02-16 16:21 | Hospitalist Progress Note ---
Date of Service February 16, 2023 Assessment & Plan (1) Hyperosmolar hyperglycemic state (HHS): (2) Diabetes mellitus: (3) Alcohol abuse: (4) HTN (hypertension): (5) HLD (hyperlipidemia): (6) Hx of right BKA: (7) Tobacco abuse: Plan: 62-year-old male with PMHx of alcohol abuse, recurrent acute pancreatitis, hypertension, hyperlipidemia MDD, status post right below the knee amputation, who presents to the hospital with acute onset of altered mental status/lethary and stupor. On admission patient is found to have a glucose of 1819, anion gap of 19, sodium 115, potassium 4.3. Lactic acid of 4.4, his VBG's is significant for acidosis with pH of 7.3, and pCO2 of 62. He was started on an insulin drip for HHS after being administered NSS for volume resuscitation. HHS DM 2 Recurrent pancreatitis Alcohol abuse -not adherent to Jardiance and Metformin patient states he is not aware he has DM - Patient is unable to go through [facility] but states that he has not been taking his medications. Denies drinking any alcohol today, alcohol level is negative. Unknown time of last alcoholic drink. -Does not appear to be alcohol induced at this time, lipase is negative, no abdominal pain or complaints -Does not appear to be infectious: Afebrile, WBC 4.68 on admission however will cover empirically with ceftriaxone IV in the setting, - admitted to ICU, required insulin drip which was continued for more than 2 days and later on changed with Lantus 25 units subcu daily A1c 16.9 Blood glucose has been improving improving Pharmacy glycemic control service on board--> recommend Insulin Lantus 25 units daily, and resume Metformin + Jardiance upon discharge No focus of infection at this point service technician consulted, education provided for patient, he said he is comfortable with Insulin administration No signs of alcohol withdrawal Remains stable without any acute distress Still very tired and lethargic we will have to get PT and OT evaluation HTN -Chronic, stable -on clonidine 0.1 mg BID, carvedilol 3.125mg BID, lisinopril 20 mg QD -Blood pressure seems to be stable MDD -Continue on duloxetine 20 mg daily Tobacco abuse -Cessation of smoking will need to be encouraged prior to discharge, still smoking 4 to 5 cigarettes/day CODE: Full Dispo: home health services in light of uncontrolled diabetes type 2 discussed with telephonic nurse case manager, patient does not meet criteria for SNF I recommended office of aging to evaluate patient for additional support Admission and Anticipated Discharge Date Admission Date: February 11, 2023 Subjective 02/16/2023 The patient was seen and examined in medical telemetry unit He has been little drowsy and sleepy but denies any significant symptoms Blood sugar is maintaining Review of Systems Review of Systems: All systems reviewed and are unremarkable except as noted below Physical Exam Physical Exam: Lying in bed comfortably Constitutional: well developed, well nourished, + ill appearing and average body habitus Eyes: PERRL, conjunctivae normal, anicteric sclerae ENMT: external ear and nose normal, oropharynx normal Neck: trachea midline, no thyromegaly Respiratory: no respiratory distress Auscultation: lungs clear to auscultation bilaterally Cardiovascular: Rate/Rhythm: regular rate and regular rhythm; not tachycardic Heart Sounds: normal S1 and normal S2; no murmur Extremities: no edema Gastrointestinal (Abdomen): Inspection/Auscultation: normal bowel sounds; abdomen not distended Percussion/Palpation: abdomen soft; abdomen nontender Musculoskeletal: No acute arthritis involving any joint Neurologic: normal touch/pain/proprioception and moves all extremities; no focal motor deficits Generally weak and lethargic Lymphatic: no cervical or axillary lymphadenopathy Results & Data Results & Data Vital Signs (Past 12 Hours) Vital Signs Temp Pulse Pulse Resp BP Pulse Ox O2 Del Method 02/16/23 15:15 36.4 C L 79 16 143/98 H 99 Room Air 02/16/23 12:37 37.4 C 85 18 115/82 98 Room Air 02/16/23 08:00 70 02/16/23 08:53 36.8 C 84 18 129/84 99 Room Air Medications Administered Current Inpatient Medications Carvedilol (Carvedilol 3.125 Mg Tab) 3.125 mg PO BIDM [facility] Stop: 03/13/23 14:54 Last Admin: 02/16/23 09:57 Dose: 3.125 mg Dextrose (Dextrose 50% 50 Ml Syringe) 25 - 50 ml IV UD PRN; Protocol PRN Reason: Hypoglycemia Protocol Stop: 03/13/23 09:46 Last Admin: 02/11/23 18:27 Dose: 50 ml Glucagon (Glucagon For Inj 1 Mg Vial) 1 mg SQ UD PRN; Protocol PRN Reason: Hypoglycemia Protocol Stop: 03/13/23 09:46 Glucose (Glucose 10 Tab/Tube) 4 - 8 tab PO UD PRN; Protocol PRN Reason: Hypoglycemia Treatment Stop: 03/13/23 09:46 Glucose (Glucose 40% Gel 15 Gm Tube) 15 - 30 gm PO UD PRN; Protocol PRN Reason: Hypoglycemia Protocol Stop: 03/13/23 09:46 Heparin Sodium (Porcine) (Heparin Sod 5,000 Unit/0.5 Ml Vial) 5,000 units SQ Q12 [facility] Stop: 03/13/23 20:59 Last Admin: 02/16/23 09:56 Dose: Not Given Insulin Aspart (Insulin Aspart Per Unit Charge) 0 units SC ACHS [facility] Stop: 03/14/23 16:29 Last Admin: 02/16/23 13:11 Dose: 15 units Insulin Glargine (Lantus Per Unit Charge) 22 units SC DAILY [facility] Stop: 03/18/23 12:59 Last Admin: 02/16/23 13:14 Dose: 22 units Lorazepam (Lorazepam 2 Mg/1 Ml Vial) 1 mg IV UD PRN; Protocol PRN Reason: EtOH Withdrawal AWSS Score 6,7 Stop: 03/14/23 09:48 Lorazepam (Lorazepam 2 Mg/1 Ml Vial) 2 mg IV UD PRN; Protocol PRN Reason: EtOH Withdrawal AWSS Score 8,9 Stop: 03/14/23 09:48 Lorazepam (Lorazepam 2 Mg/1 Ml Vial) 3 mg IV ONCE PRN; Protocol PRN Reason: EtOH Withdrawal AWSS Score 10+ Miscellaneous (Carbohydrates For Hypoglycemia ) 15 - 30 gm PO UD PRN PRN Reason: Hypoglycemia Protocol Stop: 03/13/23 09:46 Last Admin: 02/14/23 16:52 Dose: 15 gm Miscellaneous Information (Pharmacy Glycemic Mgmt Consult) 1 each N/A UD PRN PRN Reason: Consult Stop: 03/13/23 13:28 (4) HTN (hypertension) Hypertension type: unspecified Qualified Code(s): I10 - Essential (primary) hypertension (5) HLD (hyperlipidemia) Hyperlipidemia type: unspecified Qualified Code(s): E78.5 - Hyperlipidemia, unspecified
[2023-02-17] MEDS: INSULIN ASPART PER UNIT CHARGE SC SCH ×4 (09:25→20:49)
[2023-02-17] MEDS: LANTUS PER UNIT CHARGE SC SCH (09:25)
[2023-02-17] MEDS: HEPARIN SOD 5,000 UNIT/0.5 ML VIAL SQ SCH ×2 (09:27→20:49)
[2023-02-17] MEDS: carvediloL 3.125 MG TAB PO SCH ×2 (09:27→18:20)
[2023-02-17 09:48] LABS: Basophils # (auto) 0.01 K/uL (0.00-0.20); Basophils % (auto) 0.1 %; Eosinophils % (auto) 1.5 %; Hematocrit (blood only) 29.3 % (42.0-52.0); Immature Granulocytes # (auto) 0.03 K/uL (0.01-0.20); Immature Granulocytes % (auto) 0.4 %; Lymphocytes # (auto) 2.33 K/uL (1.20-3.40); Lymphocytes % (auto) 33.9 %; Mean Corpuscular Hgb Conc 34.1 g/dL (32.0-36.0); Mean Corpuscular Volume 82.1 fL (80.0-100.0); Mean Platelet Volume 10.4 fL (9.4-12.4); Monocytes # (auto) 0.98 K/uL (0.11-0.59); Monocytes % (auto) 14.3 %; Neutrophils # (auto) 3.42 K/uL (1.40-6.50); Neutrophils % (auto) 49.8 %; Platelet Count 179 K/uL (130-400); RDW Coefficient of Variation 14.1 % (11.5-14.5); RDW Standard Deviation 41.9 fL (36.4-46.3); Red Blood Count 3.57 M/uL (4.70-6.10); White Blood Count 6.87 K/ul (4.8-10.8)
[2023-02-17 10:17] LABS: BUN Creatinine Ratio 17.6 (10-20); Calcium 9.4 mg/dl (8.6-10.3); Creatinine Clr Calc Pharmacy 99.2 ml/min; Est GFR (African American) 116.2 ml/min; Est GFR (Non-African American) 100.3 ml/min; Magnesium 1.8 mg/dl (1.7-2.4); Phosphorus 3.8 mg/dl (2.5-4.9); Potassium 4.2 mmol/L (3.5-5.1)
--- NOTE | 2023-02-17 12:04 | Hospitalist Progress Note ---
Date of Service February 17, 2023 Assessment & Plan (1) Hyperosmolar hyperglycemic state (HHS): (2) Diabetes mellitus: (3) Alcohol abuse: (4) HTN (hypertension): (5) HLD (hyperlipidemia): (6) Hx of right BKA: (7) Tobacco abuse: Plan: 62-year-old male with PMHx of alcohol abuse, recurrent acute pancreatitis, hypertension, hyperlipidemia MDD, status post right below the knee amputation, who presents to the hospital with acute onset of altered mental status/lethary and stupor. On admission patient is found to have a glucose of 1819, anion gap of 19, sodium 115, potassium 4.3. Lactic acid of 4.4, his VBG's is significant for acidosis with pH of 7.3, and pCO2 of 62. He was started on an insulin drip for HHS after being administered NSS for volume resuscitation. HHS DM 2 Recurrent pancreatitis Alcohol abuse -not adherent to Jardiance and Metformin patient states he is not aware he has DM - Patient is unable to go through [facility] [facility] but states that he has not been taking his medications. Denies drinking any alcohol today, alcohol level is negative. Unknown time of last alcoholic drink. -Does not appear to be alcohol induced at this time, lipase is negative, no abdominal pain or complaints -Does not appear to be infectious: Afebrile, WBC 4.68 on admission however will cover empirically with ceftriaxone IV in the setting, - admitted to ICU, required insulin drip which was continued for more than 2 days and later on changed with Lantus 25 units subcu daily A1c 16.9 Blood glucose has been improving improving Pharmacy glycemic control service on board--> recommend Insulin Lantus 25 units daily, and resume Metformin + Jardiance upon discharge Remains medically stable and without any symptoms of hyper or hypoglycemia He mentions that he knows how to take insulin and check his blood sugars Likely discharge home this afternoon No focus of infection at this point simulation educator consulted, education provided for patient, he said he is comfortable with Insulin administration No signs of alcohol withdrawal Remains stable without any acute distress Still very tired and lethargic we will have to get PT and OT evaluation Much better today and has had PT OT evaluation Has been ambulating in the room without any difficulties HTN -Chronic, stable -on clonidine 0.1 mg BID, carvedilol 3.125mg BID, lisinopril 20 mg QD -Blood pressure seems to be stable MDD -Continue on duloxetine 20 mg daily Tobacco abuse -Cessation of smoking will need to be encouraged prior to discharge, still smoking 4 to 5 cigarettes/day CODE: Full Dispo: home health services in light of uncontrolled diabetes type 2 discussed with case worker, patient does not meet criteria for SNF I recommended office of aging to evaluate patient for additional support aerospace manager is working on discharge planning Admission and Anticipated Discharge Date Admission Date: February 11, 2023 Subjective 02/16/2023 The patient was seen and examined in medical telemetry unit He has been little drowsy and sleepy but denies any significant symptoms Blood sugar is maintaining 02/17/2023 The patient was seen and examined in medical telemetry unit He has been feeling much better and denies any symptoms Has had physical therapy evaluation and recommended home He feels better to be discharged today Review of Systems Review of Systems: All systems reviewed and are unremarkable except as noted below Physical Exam Physical Exam: Lying in bed comfortably Constitutional: well developed, well nourished, + ill appearing and average body habitus Eyes: PERRL, conjunctivae normal, anicteric sclerae ENMT: external ear and nose normal, oropharynx normal Neck: trachea midline, no thyromegaly Respiratory: no respiratory distress Auscultation: lungs clear to auscultation bilaterally Cardiovascular: Rate/Rhythm: regular rate and regular rhythm; not tachycardic Heart Sounds: normal S1 and normal S2; no murmur Extremities: no edema Gastrointestinal (Abdomen): Inspection/Auscultation: normal bowel sounds; abdomen not distended Percussion/Palpation: abdomen soft; abdomen nontender Neurologic: normal touch/pain/proprioception and moves all extremities; no focal motor deficits Lymphatic: no cervical or axillary lymphadenopathy Results & Data Results & Data Vital Signs (Past 12 Hours) Vital Signs Temp Pulse Pulse Pulse Resp BP BP 02/17/23 11:27 37.1 C 80 18 118/78 02/17/23 08:12 36.9 C 74 18 130/82 02/17/23 07:44 77 02/17/23 03:46 36.5 C 72 17 121/78 02/17/23 00:06 36.8 C 85 18 112/75 Pulse Ox O2 Del Method 02/17/23 11:27 97 Room Air 02/17/23 08:12 98 Room Air 08/31/23 07:44 02/17/23 03:46 98 Room Air 02/17/23 00:06 99 Room Air Laboratory Results Short CBC 02/17/23 Range/Units 09:01 WBC 6.87 (4.8-10.8) K/ul Hgb 10.0 L (14.0-18.0) g/dl Hct 29.3 L (42.0-52.0) % Plt Count 179 (130-400) K/uL BMP 02/17/23 09:01 Sodium 133 L Potassium 4.2 Chloride 103 Carbon Dioxide 23 BUN 13 Creatinine 0.74 Glucose 280 H Calcium 9.4 Medications Administered Current Inpatient Medications Carvedilol (Carvedilol 3.125 Mg Tab) 3.125 mg PO BIDM RONEY Stop: 03/13/23 14:54 Last Admin: 02/17/23 09:27 Dose: 3.125 mg Dextrose (Dextrose 50% 50 Ml Syringe) 25 - 50 ml IV UD PRN; Protocol PRN Reason: Hypoglycemia Protocol Stop: 03/13/23 09:46 Last Admin: 02/11/23 18:27 Dose: 50 ml Glucagon (Glucagon For Inj 1 Mg Vial) 1 mg SQ UD PRN; Protocol PRN Reason: Hypoglycemia Protocol Stop: 03/13/23 09:46 Glucose (Glucose 10 Tab/Tube) 4 - 8 tab PO UD PRN; Protocol PRN Reason: Hypoglycemia Treatment Stop: 03/13/23 09:46 Glucose (Glucose 40% Gel 15 Gm Tube) 15 - 30 gm PO UD PRN; Protocol PRN Reason: Hypoglycemia Protocol Stop: 03/13/23 09:46 Heparin Sodium (Porcine) (Heparin Sod 5,000 Unit/0.5 Ml Vial) 5,000 units SQ Q12 RONEY Stop: 03/13/23 20:59 Last Admin: 02/17/23 09:27 Dose: Not Given Insulin Aspart (Insulin Aspart Per Unit Charge) 0 units SC ACHS RONEY Stop: 03/14/23 16:29 Last Admin: 02/17/23 09:25 Dose: 20 units Insulin Glargine (Lantus Per Unit Charge) 22 units SC DAILY RONEY Stop: 03/18/23 12:59 Last Admin: 02/17/23 09:25 Dose: 22 units Lorazepam (Lorazepam 2 Mg/1 Ml Vial) 1 mg IV UD PRN; Protocol PRN Reason: EtOH Withdrawal AWSS Score 6,7 Stop: 03/14/23 09:48 Lorazepam (Lorazepam 2 Mg/1 Ml Vial) 2 mg IV UD PRN; Protocol PRN Reason: EtOH Withdrawal AWSS Score 8,9 Stop: 03/14/23 09:48 Lorazepam (Lorazepam 2 Mg/1 Ml Vial) 3 mg IV ONCE PRN; Protocol PRN Reason: EtOH Withdrawal AWSS Score 10+ Miscellaneous (Carbohydrates For Hypoglycemia ) 15 - 30 gm PO UD PRN PRN Reason: Hypoglycemia Protocol Stop: 03/13/23 09:46 Last Admin: 02/14/23 16:52 Dose: 15 gm Miscellaneous Information (Pharmacy Glycemic Mgmt Consult) 1 each N/A UD PRN PRN Reason: Consult Stop: 03/13/23 13:28 (4) HTN (hypertension) Hypertension type: unspecified Qualified Code(s): I10 - Essential (primary) hypertension (5) HLD (hyperlipidemia) Hyperlipidemia type: unspecified Qualified Code(s): E78.5 - Hyperlipidemia, unspecified
[2023-02-18 07:09] LABS: Basophils # (auto) 0.03 K/uL (0.00-0.20); Basophils % (auto) 0.4 %; Eosinophils # (auto) 0.09 K/uL (0.00-0.50); Eosinophils % (auto) 1.3 %; Hematocrit (blood only) 27.7 % (42.0-52.0); Hemoglobin 9.4 g/dl (14.0-18.0); Immature Granulocytes # (auto) 0.03 K/uL (0.01-0.20); Immature Granulocytes % (auto) 0.4 %; Lymphocytes # (auto) 3.04 K/uL (1.20-3.40); Lymphocytes % (auto) 44.4 %; Mean Corpuscular Hemoglobin 27.7 pg (25.0-34.0); Mean Corpuscular Hgb Conc 33.9 g/dL (32.0-36.0); Mean Corpuscular Volume 81.7 fL (80.0-100.0); Mean Platelet Volume 9.4 fL (9.4-12.4); Monocytes % (auto) 16.1 %; Neutrophils # (auto) 2.55 K/uL (1.40-6.50); Neutrophils % (auto) 37.4 %; Platelet Count 220 K/uL (130-400); RDW Coefficient of Variation 14.4 % (11.5-14.5); RDW Standard Deviation 42.3 fL (36.4-46.3); Red Blood Count 3.39 M/uL (4.70-6.10); White Blood Count 6.84 K/ul (4.8-10.8)
[2023-02-18 07:31] LABS: BUN Creatinine Ratio 17.6 (10-20); Calcium 9.4 mg/dl (8.6-10.3); Est GFR (African American) 120.3 ml/min; Est GFR (Non-African American) 103.8 ml/min; Magnesium 1.7 mg/dl (1.7-2.4); Potassium 3.7 mmol/L (3.5-5.1)
[2023-02-18] MEDS: HEPARIN SOD 5,000 UNIT/0.5 ML VIAL SQ SCH (08:16)
[2023-02-18] MEDS: carvediloL 3.125 MG TAB PO SCH (08:16)
[2023-02-18] MEDS: INSULIN ASPART PER UNIT CHARGE SC SCH ×2 (09:10→12:57)
[2023-02-18] MEDS: LANTUS PER UNIT CHARGE SC SCH (09:10)
--- NOTE | 2023-02-18 12:19 | Pharmacy Report ---
Pharmacy Glycemic Short Note 2 - Date of Service February 18, 2023 - Glycemic Short BSG Results (Last 24 hours): 02/17/23 02/17/23 02/17/23 12:33 18:16 18:17 Glucose POC Glucose 237 H 96 97 02/17/23 02/18/23 02/18/23 20:31 06:38 07:55 Glucose 129 H POC Glucose 175 H 163 H 02/18/23 11:42 Glucose POC Glucose 195 H OUTPATIENT ANTIDIABETIC REGIMEN: * empagliflozin 10mg PO daily * metformin 500mg PO BID HbA1C: >16.9% (02/12/23) ASSESSMENT: 02/18/23 * BSGs yesterday were 248-237-96/97-175 mg/dL. Patient received 60 units of insulin (22 units of basal and 38 units of bolus). * BSGs today are 129-195 mg/dL. * Continue Lantus 22 units as fasting reasonable. * Continue Novolog. 02/16/23 * BSGs yesterday were 01-701-838-205 mg/dL. Patient received 60 units of insulin (25 units of basal and 35 units of bolus). * Today's BSGs are 77-180 mg/dL. Held Lantus until lunchtime due to fasting decreasing. Decrease Lantus by 10% to 22 units. * Continue Novolog. 02/14: * Patient BSGs 00-321-170-239 mg/dL yesterday with 42 units of insulin * Fasting this morning 337 mg/dL- confirmed with RN, did not believe patient had been eating prior to this result, somewhat conflicting with previous fasting of 89 mg/dL with 20 units of lantus, will add additional 5/10 units scale for PM * BSG still elevated at lunch, will give 6 unit IV bolus, 5 units of correctional novolog (Breakfast insulin had just been administered ~0900) + carb coverage. * Tightened carb coverage. Will monitor for additional changes, add over night checks. 02/12/23 * Patient continues on insulin infusion @ 2.1 units/hr + D5 @ 200 mL/hr. * Per conversation between ICU pharmacist and roadmaster, patient to be transitioned off insulin infusion. * Per rates of insulin drip, patient is requiring ~48 units/day with D5 @ 200 mL/hr. Will reduce this slightly as dextrose will be cut. * Lantus 30 units SQ x 1 (almost full weight-based stress of 3). Stop infusion @ 1999 or when drip turns itself off. * Novolog weight-based stress of 3. BACKGROUND * Patient is a 62 year old male with a history of DM2 admitted with altered mental status in the setting of possible noncompliance, in [facility]. Pharmacy consulted to assist with glycemic management. * Initial labs: pH-7.29, HCO3-22, AG-19, BSG 1691mg/dL. NPO, Plasmalyte with 40mEQ KCl running at 250mL/hr. * Insulin infusion initiated per DKA/[facility] protocol. Potassium-containing IVF initiated. Continue insulin drip per protocol until AG closed and improved mental status. Serum glucose required until BSG <600. [facility] BSG goal 250-350mg/dl- dextrose containing IVF to begin once BSG within goal range. PLAN FOR INPATIENT GLYCEMIC CONTROL: * Hold outpatient oral diabetes medications * Basal insulin * Lantus 22 units SQ daily * Bolus insulin * NovoLog per scale ACHS or Q6hrs while NPO * Goal Range: Low 110 mg/dL - High 140 mg/dL * Correction Factor: 30 mg/dL/unit * Nutritional / Prandial insulin per carb ratio of 1 unit per 5 grams CHO consumed
--- NOTE | 2023-02-18 13:25 | Hospitalist Progress Note ---
Date of Service February 18, 2023 Assessment & Plan (1) Hyperosmolar hyperglycemic state (HHS): (2) Diabetes mellitus: (3) Alcohol abuse: (4) HTN (hypertension): (5) HLD (hyperlipidemia): (6) Hx of right BKA: (7) Tobacco abuse: Plan: 62-year-old male with PMHx of alcohol abuse, recurrent acute pancreatitis, hypertension, hyperlipidemia MDD, status post right below the knee amputation, who presents to the hospital with acute onset of altered mental status/lethary and stupor. On admission patient is found to have a glucose of 1819, anion gap of 19, sodium 115, potassium 4.3. Lactic acid of 4.4, his VBG's is significant for acidosis with pH of 7.3, and pCO2 of 62. He was started on an insulin drip for HHS after being administered NSS for volume resuscitation. HHS DM 2 Recurrent pancreatitis Alcohol abuse -not adherent to Jardiance and Metformin patient states he is not aware he has DM - Patient is unable to go through [place] [facility] but states that he has not been taking his medications. Denies drinking any alcohol today, alcohol level is negative. Unknown time of last alcoholic drink. -Does not appear to be alcohol induced at this time, lipase is negative, no abdominal pain or complaints -Does not appear to be infectious: Afebrile, WBC 4.68 on admission however will cover empirically with ceftriaxone IV in the setting, - admitted to ICU, required insulin drip which was continued for more than 2 days and later on changed with Lantus 25 units subcu daily A1c 16.9 Blood glucose has been improving improving Pharmacy glycemic control service on board--> recommend Insulin Lantus 25 units daily, and resume Metformin + Jardiance upon discharge Remains medically stable and without any symptoms of hyper or hypoglycemia He mentions that he knows how to take insulin and check his blood sugars Remains asymptomatic with controlled blood sugar He mentioned that he could take the insulin by himself and he can check his blood sugar Home health nurse will go and visit him at home as well He will be discharged this afternoon No focus of infection at this point visual educator consulted, education provided for patient, he said he is comfortable with Insulin administration No signs of alcohol withdrawal Remains stable without any acute distress Still very tired and lethargic we will have to get PT and OT evaluation Much better today and has had PT OT evaluation Has been ambulating in the room without any difficulties HTN -Chronic, stable -on clonidine 0.1 mg BID, carvedilol 3.125mg BID, lisinopril 20 mg QD -Blood pressure seems to be stable MDD -Continue on duloxetine 20 mg daily Tobacco abuse -Cessation of smoking will need to be encouraged prior to discharge, still smoking 4 to 5 cigarettes/day CODE: Full Dispo: home health services in light of uncontrolled diabetes type 2 discussed with case packer, patient does not meet criteria for SNF I recommended office of aging to evaluate patient for additional support copy manager is working on discharge planning-discharge this afternoon Admission and Anticipated Discharge Date Admission Date: February 11, 2023 Subjective 02/16/2023 The patient was seen and examined in medical telemetry unit He has been little drowsy and sleepy but denies any significant symptoms Blood sugar is maintaining 02/17/2023 The patient was seen and examined in medical telemetry unit He has been feeling much better and denies any symptoms Has had physical therapy evaluation and recommended home He feels better to be discharged today 02/18/2023 The patient was seen and examined in medical telemetry unit He remains stable and denies any symptoms Blood sugar is controlled He admits that he can take the insulin as directed and can check his blood sugars He wants to go home this afternoon Review of Systems Review of Systems: All systems reviewed and are unremarkable except as noted below Physical Exam Physical Exam: Lying in bed comfortably Constitutional: well developed, well nourished, + ill appearing and average body habitus Eyes: PERRL, conjunctivae normal, anicteric sclerae ENMT: external ear and nose normal, oropharynx normal Neck: trachea midline, no thyromegaly Respiratory: no respiratory distress Auscultation: lungs clear to auscultation bilaterally Cardiovascular: Rate/Rhythm: regular rate and regular rhythm; not tachycardic Heart Sounds: normal S1 and normal S2; no murmur Extremities: no edema Gastrointestinal (Abdomen): Inspection/Auscultation: normal bowel sounds; abdomen not distended Percussion/Palpation: abdomen soft; abdomen nontender Neurologic: normal touch/pain/proprioception and moves all extremities; no focal motor deficits Lymphatic: no cervical or axillary lymphadenopathy Results & Data Results & Data Vital Signs (Past 12 Hours) Vital Signs Temp Pulse Pulse Pulse Resp BP Pulse Ox 02/18/23 11:34 36.9 C 87 16 114/74 99 02/18/23 07:47 36.9 C 77 16 124/80 99 02/18/23 07:18 80 02/18/23 04:00 36.8 C 65 18 134/83 99 O2 Del Method 02/18/23 11:34 Room Air 02/18/23 07:47 Room Air 02/18/23 07:18 02/18/23 04:00 Room Air Laboratory Results Short CBC 02/18/23 Range/Units 06:38 WBC 6.84 (4.8-10.8) K/ul Hgb 9.4 L (14.0-18.0) g/dl Hct 27.7 L (42.0-52.0) % Plt Count 220 (130-400) K/uL BMP 02/18/23 06:38 Sodium 135 L Potassium 3.7 Chloride 103 Carbon Dioxide 26 BUN 12 Creatinine 0.68 Glucose 129 H Calcium 9.4 Medications Administered Current Inpatient Medications Carvedilol (Carvedilol 3.125 Mg Tab) 3.125 mg PO BIDM RONEY Stop: 03/13/23 14:54 Last Admin: 02/18/23 08:16 Dose: 3.125 mg Dextrose (Dextrose 50% 50 Ml Syringe) 25 - 50 ml IV UD PRN; Protocol PRN Reason: Hypoglycemia Protocol Stop: 03/13/23 09:46 Last Admin: 02/11/23 18:27 Dose: 50 ml Glucagon (Glucagon For Inj 1 Mg Vial) 1 mg SQ UD PRN; Protocol PRN Reason: Hypoglycemia Protocol Stop: 03/13/23 09:46 Glucose (Glucose 10 Tab/Tube) 4 - 8 tab PO UD PRN; Protocol PRN Reason: Hypoglycemia Treatment Stop: 03/13/23 09:46 Glucose (Glucose 40% Gel 15 Gm Tube) 15 - 30 gm PO UD PRN; Protocol PRN Reason: Hypoglycemia Protocol Stop: 03/13/23 09:46 Heparin Sodium (Porcine) (Heparin Sod 5,000 Unit/0.5 Ml Vial) 5,000 units SQ Q12 RONEY Stop: 03/13/23 20:59 Last Admin: 02/18/23 08:16 Dose: Not Given Insulin Aspart (Insulin Aspart Per Unit Charge) 0 units SC ACHS RONEY Stop: 03/14/23 16:29 Last Admin: 02/18/23 12:57 Dose: 15 units Insulin Glargine (Lantus Per Unit Charge) 22 units SC DAILY RONEY Stop: 03/18/23 12:59 Last Admin: 02/18/23 09:10 Dose: 22 units Lorazepam (Lorazepam 2 Mg/1 Ml Vial) 1 mg IV UD PRN; Protocol PRN Reason: EtOH Withdrawal AWSS Score 6,7 Stop: 03/14/23 09:48 Lorazepam (Lorazepam 2 Mg/1 Ml Vial) 2 mg IV UD PRN; Protocol PRN Reason: EtOH Withdrawal AWSS Score 8,9 Stop: 03/14/23 09:48 Lorazepam (Lorazepam 2 Mg/1 Ml Vial) 3 mg IV ONCE PRN; Protocol PRN Reason: EtOH Withdrawal AWSS Score 10+ Miscellaneous (Carbohydrates For Hypoglycemia ) 15 - 30 gm PO UD PRN PRN Reason: Hypoglycemia Protocol Stop: 03/13/23 09:46 Last Admin: 02/14/23 16:52 Dose: 15 gm Miscellaneous Information (Pharmacy Glycemic Mgmt Consult) 1 each N/A UD PRN PRN Reason: Consult Stop: 03/13/23 13:28 (4) HTN (hypertension) Hypertension type: unspecified Qualified Code(s): I10 - Essential (primary) hypertension (5) HLD (hyperlipidemia) Hyperlipidemia type: unspecified Qualified Code(s): E78.5 - Hyperlipidemia, unspecified
--- NOTE | 2023-02-18 17:01 | Discharge Summary ---
Date of Service February 18, 2023 Admission HPI Per Admitting Provider This is a 62-year-old male with PMHx of alcohol abuse, recurrent acute pancreatitis, hypertension, hyperlipidemia MDD, status post right below the knee amputation, who presents to the hospital with acute onset of altered mental status. It appears that the patient was diagnosed with DM type II back in April 2022 where he had an A1c of 9.5 after hospital stay for acute pancreatitis from alcohol use. As of September he had an A1c of 6.9 and has since been started on Januvia and metformin. Patient presents today after ambulance was called by his brother who stayed with him overnight, and reported that around 3 AM he was increased difficulty ambulating. He did not come to the hospital until later this morning when gait did not improve. He does have a right below the knee prosthesis however typically ambulates without any issues. Upon evaluation in the ER, the patient is slow to respond to some of my questions, slightly confused at times but does answer some questions correctly like the day of the month, that he is in [facility], but has difficulty answering the year or the month. He denies any fevers, chills or sweats. No recent other ill symptoms. He denies drinking any alcohol today. Patient does not tell me whenever his last alcoholic drink was with repetitive questioning. He is still smoking 4 to 5 cigarettes daily. Patient is found to have a glucose of 1819, anion gap of 19, sodium 115, potassium 4.3. Lactic acid of 4.4, his VBG's is significant for acidosis with pH of 7.3, and pCO2 of 62. He was started on an insulin drip for HHS in the ER, after being administered 1 L of NSS. Admission Exam Per Admitting Provider Physical Exam: General: awake, slowness to respond to some questions, no apparent distress, thin black male Head: Normocephalic, atraumatic ENT: PERRL, EOMI, no pharyngeal exudate, tongue is stained bright red/orange, mucous membranes very dry Chest: Clear to auscultation, on room air, no adventitious breath sounds Cardiac: Regular rate and rhythm, no murmur, no JVD, normal peripheral pulses, good capillary refill Abdominal: NABS x 4 quadrants, soft, nondistended, nontender to palpation, no rebound or guarding Extremities: Right below the knee amputation with prosthesis in place, otherwise normal inspection, no peripheral edema or erythema, left calf nontender to palpation Psych: Normal mood and affect Neuro: Awakens to verbal stimuli, oriented to place, has difficulty with other specific orientation questions, no gross motor deficits, speech is clear, no peripheral sensory deficits Principal Diagnosis HHS, uncontrolled diabetes, hypertension, tobacco abuse Discharge Exam Lying in bed comfortably Constitutional well developed, well nourished, + ill appearing and average body habitus Eyes PERRL, conjunctivae normal, anicteric sclerae ENMT external ear and nose normal, oropharynx normal Neck trachea midline, no thyromegaly Respiratory no respiratory distress Auscultation: lungs clear to auscultation bilaterally Cardiovascular Rate/Rhythm: regular rate and regular rhythm; not tachycardic Heart Sounds: normal S1 and normal S2; no murmur Extremities: no edema Gastrointestinal (Abdomen) Inspection/Auscultation: normal bowel sounds; abdomen not distended Percussion/Palpation: abdomen soft; abdomen nontender Neurologic normal touch/pain/proprioception and moves all extremities; no focal motor deficits Lymphatic no cervical or axillary lymphadenopathy Discharge Data Allergies Allergy/AdvReac Type Severity Reaction Status Date / Time No Known Allergies Allergy Verified 09/22/22 01:49 Consultations 02/11/23 10:23 ED Decision to Admit Stat 02/11/23 11:24 Consult Housing Officer Routine Ordered Studies 02/11/23 08:23 CT head/brain wo con Stat Hospital Course (1) Hyperosmolar hyperglycemic state (HHS): (2) Diabetes mellitus: (3) Alcohol abuse: (4) HTN (hypertension): (5) HLD (hyperlipidemia): (6) Hx of right BKA: (7) Tobacco abuse: 62-year-old male with PMHx of alcohol abuse, recurrent acute pancreatitis, hypertension, hyperlipidemia MDD, status post right below the knee amputation, who presents to the hospital with acute onset of altered mental status/lethary and stupor. On admission patient is found to have a glucose of 1819, anion gap of 19, sodium 115, potassium 4.3. Lactic acid of 4.4, his VBG's is significant for acidosis with pH of 7.3, and pCO2 of 62. He was started on an insulin drip for HHS after being administered NSS for volume resuscitation. HHS DM 2 Recurrent pancreatitis Alcohol abuse -not adherent to Jardiance and Metformin patient states he is not aware he has DM - Patient is unable to go through med [employer] but states that he has not been taking his medications. Denies drinking any alcohol today, alcohol level is negative. Unknown time of last alcoholic drink. -Does not appear to be alcohol induced at this time, lipase is negative, no abdominal pain or complaints -Does not appear to be infectious: Afebrile, WBC 4.68 on admission however will cover empirically with ceftriaxone IV in the setting, - admitted to ICU, required insulin drip which was continued for more than 2 days and later on changed with Lantus 25 units subcu daily A1c 16.9 Blood glucose has been improving improving Pharmacy glycemic control service on board--> recommend Insulin Lantus 25 units daily, and resume Metformin + Jardiance upon discharge Remains medically stable and without any symptoms of hyper or hypoglycemia He mentions that he knows how to take insulin and check his blood sugars Remains asymptomatic with controlled blood sugar He mentioned that he could take the insulin by himself and he can check his blood sugar Home health nurse will go and visit him at home as well He will be discharged this afternoon No focus of infection at this point diabetic educator consulted, education provided for patient, he said he is comfortable with Insulin administration No signs of alcohol withdrawal Remains stable without any acute distress Still very tired and lethargic we will have to get PT and OT evaluation Much better today and has had PT OT evaluation Has been ambulating in the room without any difficulties HTN -Chronic, stable -on clonidine 0.1 mg BID, carvedilol 3.125mg BID, lisinopril 20 mg QD -Blood pressure seems to be stable MDD -Continue on duloxetine 20 mg daily Tobacco abuse -Cessation of smoking will need to be encouraged prior to discharge, still smoking 4 to 5 cigarettes/day CODE: Full Dispo: home health services in light of uncontrolled diabetes type 2 discussed with special education case manager, patient does not meet criteria for SNF I recommended office of aging to evaluate patient for additional support post exchange manager is working on discharge planning-discharge this afternoon Total Time Total Time Spent Total Time Spent (In Minutes): 45 minutes Discharge Plan Discharge Items Patient Disposition: Home - Home Health Services Reason For Visit: HHS, METABOLIC ACIDOSIS Discharge Diagnosis: HHS, uncontrolled diabetes, hypertension, tobacco abuse Condition on Discharge: Fair Activity: Resume your previous activity Non-emergency contact: Primary Care Provider Call non-emergency contact if: you have any medication questions and your symptoms worsen Follow-up/Referrals: Liyah Oseguera MD [Primary Care Provider] - 02/24/23 11:00 am (Date & Time 02/24/2023 11:00 AM Provider Liyah Oseguera MD Department General Internal Medicine [facility] ) Diet: Carb Consistent or DM2 Addtl Attending Provider Instructions: Please take precautions to avoid falls Take your medications and insulin as advised Follow the diabetic diet Please keep appointments with your healthcare providers Pending Studies at Discharge: No Stand-Alone Forms: My [facility] [place], Smoking Cessation Medications and DC Order Prescriptions: New (DME) pen needle, diabetic [Pen Needle] 32 gauge x 5/32" needle See Rx Instructions .ROUTE .MEDSUPPLY Qty: 100 2RF Rx Instructions: daily insulin glargine [Lantus Solostar U-100 Insulin] 100 unit/mL (3 mL) insulin pen 25 unit subcut QAM 30 Days Qty: 7.5 2RF Continued multivitamin Tablet 1 tab PO DAILY acetaminophen 325 mg Tablet 650 mg PO Q4H PRN (Reason: pain) Qty: 30 0RF carvedilol 3.125 mg Tablet 3.125 mg PO BIDM Qty: 60 0RF duloxetine [Cymbalta] 20 mg Capsule,Delayed Release(Dr/Ec) 20 mg PO QAM Qty: 30 0RF metformin 500 mg tablet extended release 24 hr 500 mg PO BID Qty: 60 0RF thiamine HCl (vitamin B1) 100 mg tablet 100 mg PO DAILY Qty: 30 0RF folic acid 1 mg tablet 1,000 mcg PO DAILY Qty: 30 0RF (DME) blood-glucose meter [OneTouch Verio Meter] Misc See Rx Instructions .Route Qty: 1 0RF Rx Instructions: As directed (DME) OneTouch Verio test strips Strip See Rx Instructions .Route Qty: 50 0RF Rx Instructions: As directed (DME) lancets [OneTouch Delica Lancets] 33 gauge misc See Rx Instructions .Route Qty: 100 0RF Rx Instructions: As directed potassium chloride 20 mEq Packet 20 meq PO BID magnesium oxide 400 mg (241.3 mg magnesium) tablet 400 mg PO QAM gabapentin 300 mg Capsule 300 mg PO DAILY Discontinued clonidine HCl 0.1 mg tablet 0.1 mg PO BID lisinopril 20 mg Tablet 20 mg PO DAILY Jardiance 10 mg tablet 10 mg PO DAILY Discharge Orders: Discharge Order (Routine); Ordered 02/18/23 Ordered By: Malcom Murrieta Admission Data Admit Date/Time: 02/11/23 11:24 Attending Provider: Malcom Murrieta Admit Provider: Ginette Short Primary Care Provider: Liyah Oseguera Other Providers: Ginette Short ; Heather Guerrier ; [facility] ; Sergio Chávez Other Interventions: Discharge Summary Assessment (RN) Last Done: 02/18/23 15:06
== END 2023-02-18 16:38 | disposition home health service (06) | DRG 637 ==
LOC: ED 08:10 → SUATTDRO 11:24 → 1E 11:24 → 2W 02-13 19:05

== ENCOUNTER 2023-06-01 23:59 | Inpatient (IN) ==
[~2023-06-01 23:59] MED LIST changes: -KETO2SHA TOP; -LTRSCR45 EXT; -OXYC1TAB3 PO; -PRT40 PO; +RAPID SEQUENCE INDUCTION BAG ONE; -RXC5 PO; -SNK PO; -TPRSR25 PO
[2023-06-02] MEDS ORDERED: SODIUM CHLORIDE 0.9% 1,000 ML IV SCH (00:15)
--- NOTE | 2023-06-02 00:22 | Emergency Department Note ---
Impression & Plan Acute hyperkalemia, AMS (altered mental status), Hypoglycemia, Elevated lactic acid level ED Provider Note Provider: Fernandez Duran MD DATE OF SERVICE: 06/01/2023 CHIEF COMPLAINT: Altered mental status HISTORY OF PRESENT ILLNESS: Patient is a 62-year-old gentleman history of diabetes, alcohol use, hypertension, right BKA presenting here today via ambulance from his home. EMS report the patient had blood sugar of 11 received 250 mL of D10. Blood sugar improved to the 180s but then began dropping into the 80s and received a second dose after consultation with myself via phone prior to arrival. Patient's mental status persisted to be altered and they are assisting breathing with BVM. Also received Narcan prior to arrival without change. Reported some alcohol use today. They state he was seen maybe an hour or so prior to arrival walking. Patient upon arrival is dry retching. Protecting his airway but not following commands. Groaning. Unable to get additional history from him. Did call and discussed the patient's listed brothers in the chart. Discussed with his brother Doni who was present today and states that he saw him last around lunch when he was having Whiskey and drink at least half a bottle today. Has not seen him but did hear him moving around maybe an hour or so ago. States he heard his Dexcom was alarming as well. Found him unresponsive and called the ambulance. Does not think he had much food today. No trauma reported. PAST MEDICAL HISTORY: As noted above MEDICATIONS: Reviewed medication list available from prior admissions here. SOCIAL HISTORY: Lives in [address] by report PHYSICAL EXAM: GENERAL: Alert not following commands and not answering orientation questions grunting and groaning on the bed Head: normocephalic and atraumatic EYES: No injection, discharge or icterus. Corneal reflexes and placed in eyes looking around with some preference towards the right but does past midline at times. NECK: Trachea midline. ENT: Mucous membranes pink and moist. LUNGS: Airway patent. No retractions. Breath sounds clear HEART: Regular rate and rhythm. No chest wall tenderness ABDOMEN: Soft and non-tender, without guarding or rebound. SKIN: Acyanotic, warm, dry, without rashes EXTREMITIES: Without swelling, tenderness or deformity with evidence of a healed right BKA. Dexcom sensor removed from the left upper arm & left on bedside nursing table NEUROLOGICAL: Good tone in the extremities. No obvious facial droop. Groaning. Not answering questions or speaking. EK bpm appears to be atrial fibrillation without acute ST segment elevation or depression with some artifact and a QTc of 413. Do question if this is sinus with PACs but the artifact makes it a bit difficult. EK bpm sinus tachycardia. No PVC or acute ST segment elevation or depression. CONTINUOUS CARDIAC MONITORING: was ordered and showed a heart rate of 100s-120s bpm in what appears to be atrial fibrillation to sinus rhythm 1 view chest x-ray per my interpretation: No evidence of pneumonia, pneumothorax, cardiomegaly, pleural effusions, or significant pulmonary edema. No free air under the diaphragm. Patient's laboratory studies and imaging reviewed. Differential includes Infection, dehydration, metabolic abnormality, hypo/hyperglycemia, electrolyte disturbance, anemia, hypoxia, cardiac sources, intracerebral event, toxicologic, neurologic, as well as other pathologies. IMPRESSION/MEDICAL DECISION MAKING: No clear seizure activity. Significantly hyperglycemic and prior to arrival. Monitored here. Received D10 250 mL x 2. Made a stroke alert upon arrival but later discussion with patient's brother via phone has not been seen in at least 10 hours and outside the window for any intervention. Question of this more metabolic anyway. Acidotic at 7.2 without hypercarbia with a low bicarb and an elevated lactate 4.6. CK within normal limits thus doubt rhabdomyolysis. No troponin elevation on blood work. Hyponatremia as well as however hyperkalemia noted. Stable renal function. He did have CT of the head as well as CT head and neck and neck angiograms completed per radiology with some limitations due to movement no obvious acute findings. Urinalysis without evidence of obvious infection. Alcohol minimally elevated at this time. Requiring some oxygen supplementation. Given these outside the window for any thrombolytic did not talk with Fina telestroke and no findings of LVO on angiograms. Question his AMS is more from his metabolic acidosis. Question possible aspiration causing the oxygen requirement but no evidence of infiltrate on the x-ray. Will hold off on antibiotics at this time. Given fluid hydration. Lower suspicion for sepsis at this time. Given some calcium, albuterol, bicarb, and a very small amount of insulin and glucose given the hyperkalemia does not seem to be seizure activity. Will monitoring for hypoglycemia. No infectious symptoms reported. CT imaging again completed without evidence of obvious traumatic intracranial hemorrhage and lower suspicion for CVA. Patient later appears to be more in a sinus rhythm. Question if he could have had PACs on his initial EKG the artifact makes it somewhat difficult. Repeat VBG and BMP ordered. Osmolar gap not present and thus lower suspicion for toxic alcohol ingestion. Discussed with hospitalist here for further care. Discussed with him acidosis and lactate and repeat as well and patient receiving additional IV fluid hydration and hospitalist will discuss further with nephrology. Hospitalist has updated family via phone. DIAGNOSIS: Hypoglycemia, altered mental status, metabolic acidosis, hyperkalemia DISPOSITION: Hospitalist will evaluate Critical Care I have personally spent 45 minutes of critical care time in the direct management of this patient. This includes bedside care, interpretation of diagnostic studies, and testing, discussion with consultants, patient, and other required patient management activities. These 45 minutes is in excess of all separately billable procedures. Past Med/Surg History Medical History Alcohol dependence a fifth of liquor and 12 beers daily for yrs. Depression Diabetes mellitus type 2 in nonobese GERD (gastroesophageal reflux disease) HLD (hyperlipidemia) HTN (hypertension) Hx of hematuria Hx of pancreatitis Obesity Pancreatitis, recurrent Phantom pain after amputation of lower extremity Tobacco abuse Surgical History Complete below knee amputation of right lower extremity History of mandibular surgery [facility] 1978 History of tooth extraction ALL TEETH REMOVED Hx of right BKA 2013 s/p fracture of tibia/fibula with associated infection Family History Sister Family history of diabetes mellitus Brother Pancreatic carcinoma Social History Smoking Status: Current every day smoker Tobacco Type: Cigarettes Second Hand Exposure: No; Hx Alcohol Use: Yes Alcohol type: beer and hard liquor Alcohol Intake Frequency: 4 or More x per/Week Alcohol Intake Frequency Comment: 6 pack of beer + daily Hx Substance Use: Yes Last Used Substance: Unknown Preferred Language: [place] Communication Ability: Effective Anchor Operator Required: No Beliefs That Will Affect Care: None marital status: Single Current Living Situation: Family Current Living Situation Comment: lives with brother Other Information That Helps Us Care for You: No Feels Safe at Home: Declines to Answer Assistive Devices: Cane and Prosthesis Allergies Allergies Allergy/AdvReac Type Severity Reaction Status Date / Time No Known Allergies Allergy Verified 06/02/23 02:12 Home Meds Home Medications Medication Instructions Recorded Confirmed multivitamin 1 tab PO DAILY 09/22/22 06/02/23 magnesium oxide 400 mg (241.3 mg 400 mg PO QAM 02/11/23 06/02/23 magnesium) tablet potassium chloride 20 mEq oral 20 meq PO QAM 02/11/23 06/02/23 packet insulin aspart U-100 100 unit/mL 2 unit subcut .WITH SNACKS 06/02/23 06/02/23 (3 mL) subcutaneous pen insulin aspart U-100 100 unit/mL 4 unit subcut AC 06/02/23 06/02/23 (3 mL) subcutaneous pen insulin glargine 100 unit/mL (3 20 unit subcut QAM 06/02/23 06/02/23 mL) subcutaneous pen (Lantus Solostar U-100 Insulin) metformin 500 mg tablet,extended 1,000 mg PO BID 06/02/23 06/02/23 release 24 hr polyethylene glycol 3350 17 gram 17 g PO DAILY PRN Constipation 06/02/23 06/02/23 oral powder packet (Miralax) Previous Rx's Medication Instructions Recorded blood sugar diagnostic (OneTouch #50 ea 05/03/22 Verio test strips) blood-glucose meter (OneTouch #1 ea 05/03/22 Verio Meter) lancets 33 gauge (OneTouch Delica #100 ea 05/03/22 Lancets) carvedilol 3.125 mg tablet 3.125 mg PO BIDM #60 tabs 09/29/22 duloxetine 20 mg capsule,delayed 20 mg PO QAM #30 caps 09/29/22 release (Cymbalta) folic acid 1 mg tablet 1,000 mcg PO DAILY #30 tabs 09/29/22 thiamine HCl (vitamin B1) 100 mg 100 mg PO DAILY #30 tabs 09/29/22 tablet pen needle, diabetic 32 gauge x #100 ea 02/15/23 5/32" (Pen Needle) Results & Data (ED) Vital Signs Vital Signs - 24 hr 06/02/23 00:01 06/02/23 00:04 06/02/23 00:04 Temperature Temperature Source Pulse Rate 114 H 116 H Pulse Rate [Apical] 110 H Pulse Rate from SpO2 Sensor Respiratory Rate 22 22 Blood Pressure Blood Pressure [Right Arm] 163/119 H Blood Pressure Mean Blood Pressure Mean [Right Arm] 133 Blood Pressure Position Blood Pressure Position [Right Arm] Lying Pulse Oximetry 91 91 Oxygen Delivery Method Oxymask Oxymask Oxygen Flow Rate 10 10 Sepsis Recent Fever Within 48 Hours Sepsis New/Unexplained Change in Mental Status Sepsis Action Taken by Nursing 06/02/23 00:10 06/02/23 00:10 06/02/23 00:16 Temperature Temperature Source Pulse Rate 118 H 115 H Pulse Rate [Apical] Pulse Rate from SpO2 Sensor 108 H Respiratory Rate 22 Blood Pressure 163/119 H 194/110 H Blood Pressure [Right Arm] Blood Pressure Mean 129 138 Blood Pressure Mean [Right Arm] Blood Pressure Position Lying Blood Pressure Position [Right Arm] Pulse Oximetry 97 90 Oxygen Delivery Method Oxymask Nasal Cannula Oxygen Flow Rate 10 Sepsis Recent Fever Within 48 Hours No Sepsis New/Unexplained Change in Mental Status No Sepsis Action Taken by Nursing Physician Notified 06/02/23 00:33 06/02/23 00:41 06/02/23 00:41 Temperature Temperature Source Pulse Rate 112 H 113 H Pulse Rate [Apical] Pulse Rate from SpO2 Sensor Respiratory Rate 25 H Blood Pressure 139/58 L Blood Pressure [Right Arm] Blood Pressure Mean 112 Blood Pressure Mean [Right Arm] Blood Pressure Position Blood Pressure Position [Right Arm] Pulse Oximetry 98 Oxygen Delivery Method Oxymask Oxygen Flow Rate 10 Sepsis Recent Fever Within 48 Hours Sepsis New/Unexplained Change in Mental Status Sepsis Action Taken by Nursing 06/02/23 00:50 06/02/23 00:50 06/02/23 01:00 Temperature Temperature Source Pulse Rate 115 H Pulse Rate [Apical] Pulse Rate from SpO2 Sensor 115 H Respiratory Rate 34 H Blood Pressure 159/130 H 131/105 H Blood Pressure [Right Arm] Blood Pressure Mean 140 115 Blood Pressure Mean [Right Arm] Blood Pressure Position Blood Pressure Position [Right Arm] Pulse Oximetry 98 Oxygen Delivery Method Oxymask Oxygen Flow Rate 10 Sepsis Recent Fever Within 48 Hours Sepsis New/Unexplained Change in Mental Status Sepsis Action Taken by Nursing 06/02/23 01:00 06/02/23 01:10 06/02/23 01:10 Temperature Temperature Source Pulse Rate 110 H 111 H Pulse Rate [Apical] Pulse Rate from SpO2 Sensor 110 H 111 H Respiratory Rate 30 H 35 H Blood Pressure 158/120 H Blood Pressure [Right Arm] Blood Pressure Mean 129 Blood Pressure Mean [Right Arm] Blood Pressure Position Blood Pressure Position [Right Arm] Pulse Oximetry 100 99 Oxygen Delivery Method Oxymask Oxymask Oxygen Flow Rate 10 10 Sepsis Recent Fever Within 48 Hours Sepsis New/Unexplained Change in Mental Status Sepsis Action Taken by Nursing 06/02/23 01:21 06/02/23 01:21 06/02/23 01:34 Temperature Temperature Source Pulse Rate 113 H Pulse Rate [Apical] Pulse Rate from SpO2 Sensor 114 H Respiratory Rate 31 H Blood Pressure 147/126 H 146/106 H Blood Pressure [Right Arm] Blood Pressure Mean 136 122 Blood Pressure Mean [Right Arm] Blood Pressure Position Blood Pressure Position [Right Arm] Pulse Oximetry 99 Oxygen Delivery Method Oxymask Oxygen Flow Rate 10 Sepsis Recent Fever Within 48 Hours Sepsis New/Unexplained Change in Mental Status Sepsis Action Taken by Nursing 06/02/23 01:34 06/02/23 01:40 06/02/23 01:40 Temperature Temperature Source Pulse Rate 114 H 118 H Pulse Rate [Apical] Pulse Rate from SpO2 Sensor 112 H 119 H Respiratory Rate 25 H 38 H Blood Pressure 169/113 H Blood Pressure [Right Arm] Blood Pressure Mean 129 Blood Pressure Mean [Right Arm] Blood Pressure Position Blood Pressure Position [Right Arm] Pulse Oximetry 99 100 Oxygen Delivery Method Oxymask Oxymask Oxygen Flow Rate 10 10 Sepsis Recent Fever Within 48 Hours Sepsis New/Unexplained Change in Mental Status Sepsis Action Taken by Nursing 06/02/23 01:42 06/02/23 02:00 06/02/23 02:00 Temperature 37 C Temperature Source [place] Cath ( Temp Sensing) Pulse Rate 115 H Pulse Rate [Apical] Pulse Rate from SpO2 Sensor 115 H Respiratory Rate 38 H Blood Pressure 157/125 H Blood Pressure [Right Arm] Blood Pressure Mean 133 Blood Pressure Mean [Right Arm] Blood Pressure Position Blood Pressure Position [Right Arm] Pulse Oximetry 99 Oxygen Delivery Method Oxymask Oxygen Flow Rate 10 Sepsis Recent Fever Within 48 Hours Sepsis New/Unexplained Change in Mental Status Sepsis Action Taken by Nursing 06/02/23 02:11 06/02/23 02:11 Temperature Temperature Source Pulse Rate 118 H Pulse Rate [Apical] Pulse Rate from SpO2 Sensor 118 H Respiratory Rate 39 H Blood Pressure 160/132 H Blood Pressure [Right Arm] Blood Pressure Mean 136 Blood Pressure Mean [Right Arm] Blood Pressure Position Blood Pressure Position [Right Arm] Pulse Oximetry 100 Oxygen Delivery Method Oxymask Oxygen Flow Rate 10 Sepsis Recent Fever Within 48 Hours Sepsis New/Unexplained Change in Mental Status Sepsis Action Taken by Nursing Laboratory Data 06/02/23 00:00 06/02/23 02:48 Lab Results 06/02/23 06/02/23 06/02/23 Range/Units 00:00 00:10 00:37 WBC 7.32 (4.8-10.8) K/ul RBC 4.81 (4.70-6.10) M/uL Hgb 13.5 L (14.0-18.0) g/dl POC Hgb 14.3 (14.0-18.0) g/dl Hct 42.1 (42.0-52.0) % POC Hct 42 (42-52) % MCV 87.5 (80.0-100.0) fL MCH 28.1 (25.0-34.0) pg MCHC 32.1 (32.0-36.0) g/dL RDW Std Deviation 41.8 (36.4-46.3) fL RDW Coeff of Miguel 13.1 (11.5-14.5) % Plt Count 278 (130-400) K/uL MPV 8.9 L (9.4-12.4) fL Immature Gran % (Auto) 0.3 % Neut % (Auto) 81.5 % Lymph % (Auto) 12.8 % Baker % (Auto) 5.3 % Eos % (Auto) 0.0 % Baso % (Auto) 0.1 % Neut # (Auto) 5.96 (1.40-6.50) K/uL Lymph # (Auto) 0.94 L (1.20-3.40) K/uL Baker # (Auto) 0.39 (0.11-0.59) K/uL Eos # (Auto) 0.00 (0.00-0.50) K/uL Baso # (Auto) 0.01 (0.00-0.20) K/uL Immature Gran # (Auto) 0.02 (0.01-0.20) K/uL POC pH 7.23 L (7.35-7.45) POC pCO2 39 (35-46) mmHg POC pO2 58 L (80-95) mmHg POC HCO3 16 L (19-24) joe/L POC Total CO2 17 L (24-31) mmol/L POC Base Excess -11.0 L (-9-1.8) joe/L POC ABG O2 Sat 84.0 L (90-95) % VBG pH (7.36-7.41) VBG pCO2 (38-50) mmHg VBG pO2 mmHg VBG HCO3 mmol/L VBG O2 Saturation % VBG Base Excess mEq/L POC Sodium 130 L (135-144) mmol/L Sodium 128 L (136-145) mmol/L POC Potassium 5.3 H (3.3-5.0) mmol/L Potassium 6.6 H* (3.5-5.1) mmol/L Chloride 96 L (98-107) mmol/L Carbon Dioxide 20 L (21-32) mmol/L Anion Gap 12 H (3-11) BUN 15 (6-23) mg/dl Creatinine 0.74 (0.6-1.4) mg/dl Est Cr Clr Drug Dosing 109.9 ml/min Est GFR ( Amer) 116.2 ml/min Est GFR (Non-Af Amer) 100.3 ml/min BUN/Creatinine Ratio 20.3 H (10-20) Glucose 263 H (70-99(Fasting)) mg/dl POC Glucose (70-99) mg/dl Osmolality 296 (280-300) mOsm/kg Lactate 4.2 H* (0.4-2.0) mmol/L Calcium 8.9 (8.6-10.3) mg/dl Magnesium 1.4 L (1.7-2.4) mg/dl Total Bilirubin 0.3 (0.2-1.0) mg/dl AST 16 (13-39) U/L ALT 8 (7-52) U/L Alkaline Phosphatase 101 (34-104) U/L Total Creatine Kinase 134 (30-223) U/L Troponin I High Sens 4.6 (0-20) pg/ml Total Protein 7.8 (6.0-8.3) gm/dl Albumin 4.4 (3.4-5.0) gm/dl Globulin 3.4 (2.5-4.0) gm/dl Albumin/Globulin Ratio 1.3 (0.9-2) Procalcitonin < 0.05 (0-0.5) ng/ml TSH 1.350 (0.300-4.500) uIu/ml Urine Color Yellow Urine Appearance Clear (Clear) Urine pH 5.0 (4.5-7.5) Ur Specific [place] 1.028 (1.000-1.030) Urine Protein Trace H (Negative) Urine Glucose (UA) 3+ H (Negative) Urine Ketones 1+ H (Negative) Urine Blood Negative (Negative) Urine Nitrite Negative (Negative) Urine Bilirubin Negative (Negative) Urine Urobilinogen Negative (Negative) Ur Leukocyte Esterase Negative (Negative) Urine WBC (Auto) 0 (0-5) /hpf Urine RBC (Auto) 0-4 (0-4) /hpf U Hyaline Cast (Auto) 0 (0-5) /lpf U Epithel Cells (Auto) 5-10 H (0-5) /lpf Urine Bacteria (Auto) Negative (Negative) Urine Opiates Screen Neg (Neg) Ur Methadone, Qual Neg (Neg) Urine Barbiturates Neg (Neg) Ur Phencyclidine (PCP) Neg (Neg) U Amphetamin/Meth Scrn Neg (Neg) MDMA (Ecstasy) Screen Neg (Neg) U Benzodiazepines Scrn Neg (Neg) Ur Cocaine Metabolite Neg (Neg) U Marijuana (THC) Screen Neg (Neg) Ethyl Alcohol mg/dL 32.3 H (<10.0) mg/dl SARS-CoV-2, RNA, NAAT (NEGATIVE) 06/02/23 06/02/23 06/02/23 Range/Units 00:40 01:46 01:46 WBC (4.8-10.8) K/ul RBC (4.70-6.10) M/uL Hgb (14.0-18.0) g/dl POC Hgb (14.0-18.0) g/dl Hct (42.0-52.0) % POC Hct (42-52) % MCV (80.0-100.0) fL MCH (25.0-34.0) pg MCHC (32.0-36.0) g/dL RDW Std Deviation (36.4-46.3) fL RDW Coeff of Miguel (11.5-14.5) % Plt Count (130-400) K/uL MPV (9.4-12.4) fL Immature Gran % (Auto) % Neut % (Auto) % Lymph % (Auto) % Baker % (Auto) % Eos % (Auto) % Baso % (Auto) % Neut # (Auto) (1.40-6.50) K/uL Lymph # (Auto) (1.20-3.40) K/uL Baker # (Auto) (0.11-0.59) K/uL Eos # (Auto) (0.00-0.50) K/uL Baso # (Auto) (0.00-0.20) K/uL Immature Gran # (Auto) (0.01-0.20) K/uL POC pH (7.35-7.45) POC pCO2 (35-46) mmHg POC pO2 (80-95) mmHg POC HCO3 (19-24) joe/L POC Total CO2 (24-31) mmol/L POC Base Excess (-9-1.8) joe/L POC ABG O2 Sat (90-95) % VBG pH 7.02 L 7.02 L (7.36-7.41) VBG pCO2 47 (38-50) mmHg VBG pO2 37 mmHg VBG HCO3 12 mmol/L VBG O2 Saturation 60.2 % VBG Base Excess -18.6 mEq/L POC Sodium (135-144) mmol/L Sodium Cancelled (136-145) mmol/L POC Potassium (3.3-5.0) mmol/L Potassium Cancelled (3.5-5.1) mmol/L Chloride Cancelled (98-107) mmol/L Carbon Dioxide Cancelled (21-32) mmol/L Anion Gap Cancelled (3-11) BUN Cancelled (6-23) mg/dl Creatinine Cancelled (0.6-1.4) mg/dl Est Cr Clr Drug Dosing Cancelled ml/min Est GFR ( Amer) Cancelled ml/min Est GFR (Non-Af Amer) Cancelled ml/min BUN/Creatinine Ratio Cancelled (10-20) Glucose Cancelled (70-99(Fasting)) mg/dl POC Glucose (70-99) mg/dl Osmolality (280-300) mOsm/kg Lactate (0.4-2.0) mmol/L Calcium Cancelled (8.6-10.3) mg/dl Magnesium (1.7-2.4) mg/dl Total Bilirubin (0.2-1.0) mg/dl AST (13-39) U/L ALT (7-52) U/L Alkaline Phosphatase (34-104) U/L Total Creatine Kinase (30-223) U/L Troponin I High Sens (0-20) pg/ml Total Protein (6.0-8.3) gm/dl Albumin (3.4-5.0) gm/dl Globulin (2.5-4.0) gm/dl Albumin/Globulin Ratio (0.9-2) Procalcitonin (0-0.5) ng/ml TSH (0.300-4.500) uIu/ml Urine Color Urine Appearance (Clear) Urine pH (4.5-7.5) Ur Specific [place] (1.000-1.030) Urine Protein (Negative) Urine Glucose (UA) (Negative) Urine Ketones (Negative) Urine Blood (Negative) Urine Nitrite (Negative) Urine Bilirubin (Negative) Urine Urobilinogen (Negative) Ur Leukocyte Esterase (Negative) Urine WBC (Auto) (0-5) /hpf Urine RBC (Auto) (0-4) /hpf U Hyaline Cast (Auto) (0-5) /lpf U Epithel Cells (Auto) (0-5) /lpf Urine Bacteria (Auto) (Negative) Urine Opiates Screen (Neg) Ur Methadone, Qual (Neg) Urine Barbiturates (Neg) Ur Phencyclidine (PCP) (Neg) U Amphetamin/Meth Scrn (Neg) MDMA (Ecstasy) Screen (Neg) U Benzodiazepines Scrn (Neg) Ur Cocaine Metabolite (Neg) U Marijuana (THC) Screen (Neg) Ethyl Alcohol mg/dL (<10.0) mg/dl SARS-CoV-2, RNA, NAAT NEGATIVE (NEGATIVE) 06/02/23 06/02/23 Range/Units 01:53 02:07 WBC (4.8-10.8) K/ul RBC (4.70-6.10) M/uL Hgb (14.0-18.0) g/dl POC Hgb (14.0-18.0) g/dl Hct (42.0-52.0) % POC Hct (42-52) % MCV (80.0-100.0) fL MCH (25.0-34.0) pg MCHC (32.0-36.0) g/dL RDW Std Deviation (36.4-46.3) fL RDW Coeff of Miguel (11.5-14.5) % Plt Count (130-400) K/uL MPV (9.4-12.4) fL Immature Gran % (Auto) % Neut % (Auto) % Lymph % (Auto) % Baker % (Auto) % Eos % (Auto) % Baso % (Auto) % Neut # (Auto) (1.40-6.50) K/uL Lymph # (Auto) (1.20-3.40) K/uL Baker # (Auto) (0.11-0.59) K/uL Eos # (Auto) (0.00-0.50) K/uL Baso # (Auto) (0.00-0.20) K/uL Immature Gran # (Auto) (0.01-0.20) K/uL POC pH (7.35-7.45) POC pCO2 (35-46) mmHg POC pO2 (80-95) mmHg POC HCO3 (19-24) joe/L POC Total CO2 (24-31) mmol/L POC Base Excess (-9-1.8) joe/L POC ABG O2 Sat (90-95) % VBG pH (7.36-7.41) VBG pCO2 (38-50) mmHg VBG pO2 mmHg VBG HCO3 mmol/L VBG O2 Saturation % VBG Base Excess mEq/L POC Sodium (135-144) mmol/L Sodium (136-145) mmol/L POC Potassium (3.3-5.0) mmol/L Potassium (3.5-5.1) mmol/L Chloride (98-107) mmol/L Carbon Dioxide (21-32) mmol/L Anion Gap (3-11) BUN (6-23) mg/dl Creatinine (0.6-1.4) mg/dl Est Cr Clr Drug Dosing ml/min Est GFR ( Amer) ml/min Est GFR (Non-Af Amer) ml/min BUN/Creatinine Ratio (10-20) Glucose (70-99(Fasting)) mg/dl POC Glucose 234 H (70-99) mg/dl Osmolality (280-300) mOsm/kg Lactate 5.2 H* (0.4-2.0) mmol/L Calcium (8.6-10.3) mg/dl Magnesium (1.7-2.4) mg/dl Total Bilirubin (0.2-1.0) mg/dl AST (13-39) U/L ALT (7-52) U/L Alkaline Phosphatase (34-104) U/L Total Creatine Kinase (30-223) U/L Troponin I High Sens (0-20) pg/ml Total Protein (6.0-8.3) gm/dl Albumin (3.4-5.0) gm/dl Globulin (2.5-4.0) gm/dl Albumin/Globulin Ratio (0.9-2) Procalcitonin (0-0.5) ng/ml TSH (0.300-4.500) uIu/ml Urine Color Urine Appearance (Clear) Urine pH (4.5-7.5) Ur Specific [place] (1.000-1.030) Urine Protein (Negative) Urine Glucose (UA) (Negative) Urine Ketones (Negative) Urine Blood (Negative) Urine Nitrite (Negative) Urine Bilirubin (Negative) Urine Urobilinogen (Negative) Ur Leukocyte Esterase (Negative) Urine WBC (Auto) (0-5) /hpf Urine RBC (Auto) (0-4) /hpf U Hyaline Cast (Auto) (0-5) /lpf U Epithel Cells (Auto) (0-5) /lpf Urine Bacteria (Auto) (Negative) Urine Opiates Screen (Neg) Ur Methadone, Qual (Neg) Urine Barbiturates (Neg) Ur Phencyclidine (PCP) (Neg) U Amphetamin/Meth Scrn (Neg) MDMA (Ecstasy) Screen (Neg) U Benzodiazepines Scrn (Neg) Ur Cocaine Metabolite (Neg) U Marijuana (THC) Screen (Neg) Ethyl Alcohol mg/dL (<10.0) mg/dl SARS-CoV-2, RNA, NAAT (NEGATIVE) Administered Medications Magnesium Sulfate/Dextrose (Magnesium Sulfate / D5w) 1 gm in 100 mls @ 50 mls/hr IV Q2H RONEY Stop: 06/02/23 05:59 Last Admin: 06/02/23 04:19 Dose: 50 mls/hr Documented By: Infusion: 06/02/23 04:04 Dose: Infused Documented By: Admin: 06/02/23 02:04 Dose: 50 mls/hr Documented By: ASW Sodium Bicarbonate 150 meq/ (Dextrose) 1,150 mls @ 100 mls/hr IV .[id number] RONEY Stop: 07/02/23 04:14 Last Admin: 06/02/23 04:19 Dose: 100 mls/hr Documented By: GITA Discontinued Medications Albuterol (Albuterol 0.083% Nebu Soln 3 Ml Vial) 2.5 mg NEB NOW STA; Protocol Stop: 06/02/23 01:12 Last Admin: 06/02/23 01:17 Dose: 2.5 mg Documented By: QGV Aspirin (Aspirin 300 Mg Supp) 300 mg [place] ONE STA Stop: 06/02/23 02:28 Last Admin: 06/02/23 03:02 Dose: 300 mg Documented By: QGV Dextrose (Dextrose 10% 250 Ml Bag) 250 ml IV ONCE ONE Stop: 06/02/23 01:18 Last Admin: 06/02/23 01:33 Dose: 250 ml Documented By: QGV Dextrose (Dextrose 50% 50 Ml Syringe) 50 ml IV NOW ONE Stop: 06/02/23 01:18 Last Admin: 06/02/23 01:32 Dose: 50 ml Documented By: QGV Diltiazem HCl (Diltiazem Hcl 5 Mg/Ml 5 Ml Vial) 5 mg IV NOW STA Stop: 06/02/23 02:59 Last Admin: 06/02/23 03:05 Dose: 5 mg Documented By: QGV Co-signed By: ISABELLA Sodium Chloride (Nss) 1,000 mls @ 999 mls/hr IV .Q1H1M RONEY Stop: 06/02/23 01:15 Last Infusion: 06/02/23 02:01 Dose: Infused Documented By: Admin: 06/02/23 00:32 Dose: 999 mls/hr Documented By: QGV Sodium Chloride (Nss) 1,000 mls @ 999 mls/hr IV .Q1H1M ONE Stop: 06/02/23 01:35 Last Infusion: 06/02/23 02:55 Dose: Infused Documented By: Admin: 06/02/23 02:01 Dose: 999 mls/hr Documented By: ASW Calcium Gluconate () 1,000 mg in 60 mls @ 240 mls/hr IV Q15M RONEY Stop: 06/02/23 01:44 Last Infusion: 06/02/23 02:00 Dose: Infused Documented By: Admin: 06/02/23 01:32 Dose: 240 mls/hr Documented By: Infusion: 06/02/23 01:32 Dose: Infused Documented By: Admin: 06/02/23 01:17 Dose: 240 mls/hr Documented By: QGV Thiamine HCl 100 mg/ Syringe 10 mls @ 2 mls/min IV NOW STA Stop: 06/02/23 01:39 Last Admin: 06/02/23 02:03 Dose: 2 mls/min Documented By: ASW Sodium Chloride (Nss) 1,000 mls @ 999 mls/hr IV .Q1H1M ONE Stop: 06/02/23 02:50 Last Admin: 06/02/23 02:02 Dose: Not Given Documented By: ASW Sodium Chloride (Nss) 1,000 mls @ 999 mls/hr IV .Q1H1M ONE Stop: 06/02/23 04:00 Last Infusion: 06/02/23 04:33 Dose: Infused Documented By: Admin: 06/02/23 02:54 Dose: 999 mls/hr Documented By: QGV Lorazepam 1 mg/ Syringe 1 mls @ 2 mls/min IV ONE PRN; Protocol PRN Reason: EtoH Withdrawal AWSS 6-10 Last Admin: 06/02/23 02:48 Dose: 1 mls/min Documented By: QGV Acetaminophen (Ofirmev) 1,000 mg in 100 mls @ 400 mls/hr IV NOW STA Stop: 06/02/23 03:07 Last Infusion: 06/02/23 03:26 Dose: Infused Documented By: Admin: 06/02/23 03:02 Dose: 400 mls/hr Documented By: QGV Insulin Human Regular (Novolin-R Insulin Per Unit Charge) 5 units IV NOW STA Stop: 06/02/23 01:17 Last Admin: 06/02/23 01:32 Dose: 5 units Documented By: QGV Co-signed By: ANDREA Ioversol (Optiray 320 125ml) 116 ml IV ONCE ONE Stop: 06/02/23 00:35 Last Admin: 06/02/23 00:34 Dose: 116 ml Documented By: PLW Lorazepam (Lorazepam 1 Mg/1 Ml Syr Ed Inj Use) Confirm Administered Dose 1 mg .ROUTE .STK-MED ONE Stop: 06/02/23 02:47 Last Admin: 06/02/23 02:49 Dose: Not Given Documented By: QGV Miscellaneous (Rapid Sequence Induction Bag) Confirm Administered Dose 1 each N/A .STK-MED ONE Stop: 06/01/23 23:55 Last Admin: 06/02/23 02:26 Dose: Not Given Documented By: QGV Sodium Bicarbonate (Sodium Bicarb 8.4% Inj 50 Meq/50 Ml Syr) 50 meq IV NOW STA Stop: 06/02/23 01:12 Last Admin: 06/02/23 01:17 Dose: 50 meq Documented By: QGV Sodium Bicarbonate (Sodium Bicarb 8.4% Inj 50 Meq/50 Ml Syr) 50 meq IV NOW STA Stop: 06/02/23 02:30 Last Admin: 06/02/23 02:49 Dose: 50 meq Documented By: QGV Imaging Data Radiologist's Impression: Head CT 06/02/23 00:05 CR Exam(s): CT HEAD Without Contrast EXAM: CT Head Without Intravenous Contrast CLINICAL HISTORY: ams. TECHNIQUE: Axial computed tomography images of the head/brain without intravenous contrast. CTDI is 102.3 mGy and DLP is 2082.46 mGy-cm. Automated exposure control was utilized for the study. A dose lowering technique was utilized adhering to the principles of ALARA. COMPARISON: Noncontrast CT head dated 02/11/2023 FINDINGS: Limitations: There is motion artifact, despite repeated imaging attempts, which degrades image quality throughout the examination. Brain: No obvious intracranial hemorrhage; evaluation for extra-axial pathology is limited along the margins of the parenchyma in regions of streak motion artifact. No mass effect. No obvious cortical infarct. The parenchyma is similar in morphology to the previous examination. Subcentimeter hypodense areas in the basal ganglia and caudate heads bilaterally appears stable. Periventricular deep white matter hypodense changes noted. Ventricles: Unremarkable. No ventriculomegaly. Bones/joints: No obvious skull fracture, accounting for limitations. Soft tissues: Unremarkable. Sinuses: Unremarkable as visualized. No acute sinusitis. Mastoid air cells: Unremarkable as visualized. No mastoid effusion. Other findings: Asymmetric hyperdensity along the posterior right occiput is thought to be stable from the previous examination. IMPRESSION: Limited by motion artifact despite repeated imaging attempts. No obvious intracranial hemorrhage. A subtle extra-axial process is difficult to exclude in regions of significant motion artifact. No midline shift or mass effect. No appreciable alteration in appearance of the parenchyma when compared to the previous examination. Communications: Call Doctor Stroke Electronically signed by: Matt Thorpe MD 06/02/23 00:56 AM Head CTA 06/02/23 00:05 CR Exam(s): CTA HEAD With Contrast IV Amt: 116 ml opti 320 EXAM: CT Angiography Head With Intravenous Contrast CLINICAL HISTORY: ams. TECHNIQUE: Axial computed tomographic angiography images of the head with intravenous contrast. CTDI is 45.02 mGy and DLP is 2082.46 mGy-cm. Automated exposure control was utilized for the study. A dose lowering technique was utilized adhering to the principles of ALARA. MIP reconstructed images were created and reviewed. CONTRAST: Patient received 116 ml opti 320 of IV contrast COMPARISON: No relevant prior studies available. FINDINGS: Limitations: There is motion artifact, which degrades image quality on multiple image slices. Right internal carotid artery: Atherosclerotic calcification of the cavernous segment of the right internal carotid artery. The petrous and supraclinoid segments are patent. Intracranial segment is patent with no significant stenosis. No aneurysm. Right anterior cerebral artery: Unremarkable. No occlusion or significant stenosis. No aneurysm. Right middle cerebral artery: Unremarkable. No occlusion or significant stenosis. No aneurysm. Right posterior cerebral artery: Unremarkable. No occlusion or significant stenosis. No aneurysm. Right vertebral artery: The right vertebral artery is small in caliber but is patent. Left internal carotid artery: Atherosclerotic calcification of the cavernous segment of the left internal carotid artery. The petrous and supraclinoid segments are patent. Intracranial segment is patent with no significant stenosis. No aneurysm. Left anterior cerebral artery: Unremarkable. No occlusion or significant stenosis. No aneurysm. Left middle cerebral artery: Unremarkable. No occlusion or significant stenosis. No aneurysm. Left posterior cerebral artery: Unremarkable. No occlusion or significant stenosis. No aneurysm. Left vertebral artery: Unremarkable as visualized. Basilar artery: There is motion artifact through the basilar artery. No obvious focal stenosis. No occlusion or obvious dissection. No aneurysm. Brain: No abnormal parenchymal enhancement identified. IMPRESSION: Negative intracranial CTA examination. No significant stenosis or occlusion identified. Communications: Call Doctor Stroke Electronically signed by: Matt Thorpe MD 06/02/23 01:00 AM Neck CTA 06/02/23 00:05 CR Exam(s): CTA NECK With Contrast IV Amt: 116 ml opti 320 EXAM: CT Angiography Neck With Intravenous Contrast CLINICAL HISTORY: ams. TECHNIQUE: Routine carotid CT angiography protocol was performed with intravenous contrast. NASCET criteria using the distal ICAs for comparison were used for evaluation of stenoses. CTDI is 45.02 mGy and DLP is 2082.46 mGy-cm. Automated exposure control was utilized for the study. A dose lowering technique was utilized adhering to the principles of ALARA. MIP reconstructed images were created and reviewed. CONTRAST: Patient received 116 ml opti 320 of IV contrast COMPARISON: None. FINDINGS: Limitations: There is motion/swallowing artifact, which degrades image quality on multiple image slices, particularly through the proximal internal carotid artery region. VASCULATURE: Right common carotid artery: Unremarkable. No occlusion or significant stenosis. No dissection. Right internal carotid artery: Atherosclerotic calcification of the right proximal internal carotid artery, extending to the carotid bifurcation. No narrowing by NASCET criteria. The mid to distal internal carotid artery is patent. Right external carotid artery: Unremarkable. No occlusion. Right vertebral artery: Mild to moderate ostial narrowing of the right vertebral artery. The right vertebral artery is small in caliber but is otherwise patent without stenosis or occlusion. Left common carotid artery: Unremarkable. No occlusion or significant stenosis. No dissection. Left internal carotid artery: The left internal carotid artery is patent, accounting for motion artifact. Left external carotid artery: Unremarkable. No occlusion. Left vertebral artery: Unremarkable. No occlusion or significant stenosis. No dissection. Brachiocephalic and subclavian arteries: The proximal great vessels demonstrate normal origin pattern without ostial stenosis. Aorta: The aortic arch is patent without dissection or aneurysm. NECK: Bones/joints: Unremarkable. No acute fracture. Soft tissues: Unremarkable. Lung apices: Clear. CAROTID STENOSIS REFERENCE USING NASCET CRITERIA: % ICA stenosis = (1 - narrowest ICA diameter/diameter of distal cervical ICA) x 100. Mild - <50% stenosis. Moderate - 50-69% stenosis. Severe - 70-94% stenosis. Near occlusion - 95-99% stenosis. Occluded - 100% stenosis. IMPRESSION: Mild to moderate ostial stenosis of the proximal right vertebral artery. Otherwise negative cervical CTA examination, accounting for motion artifact. Communications: Call Doctor Stroke Electronically signed by: Matt Thorpe MD 06/02/23 01:03 AM Discharge Plan Visit Data Chief Complaint: Hypoglycemia ED Provider: Fernandez Duran Discharge Problem: Acute hyperkalemia, AMS (altered mental status), Hypoglycemia, Elevated lactic acid level Patient Disposition: Admitted As Inpatient Discharge Instructions Interventions: ED Discharge Assessment Last Done: 06/02/23 03:24
[2023-06-02 00:23] LABS: Basophils # (auto) 0.01 K/uL (0.00-0.20); Basophils % (auto) 0.1 %; Hematocrit (blood only) 42.1 % (42.0-52.0); Hemoglobin 13.5 g/dl (14.0-18.0); Immature Granulocytes # (auto) 0.02 K/uL (0.01-0.20); Immature Granulocytes % (auto) 0.3 %; Lymphocytes # (auto) 0.94 K/uL (1.20-3.40); Lymphocytes % (auto) 12.8 %; Mean Corpuscular Hemoglobin 28.1 pg (25.0-34.0); Mean Corpuscular Hgb Conc 32.1 g/dL (32.0-36.0); Mean Corpuscular Volume 87.5 fL (80.0-100.0); Mean Platelet Volume 8.9 fL (9.4-12.4); Monocytes # (auto) 0.39 K/uL (0.11-0.59); Monocytes % (auto) 5.3 %; Neutrophils # (auto) 5.96 K/uL (1.40-6.50); Neutrophils % (auto) 81.5 %; Platelet Count 278 K/uL (130-400); RDW Coefficient of Variation 13.1 % (11.5-14.5); RDW Standard Deviation 41.8 fL (36.4-46.3); Red Blood Count 4.81 M/uL (4.70-6.10); White Blood Count 7.32 K/ul (4.8-10.8)
[2023-06-02 00:24] LABS: iSTAT Arterial Blood Gas HCO3 16 meg/L (19-24); iSTAT Arterial Blood Gas pCO2 39 mmHg (35-46); iSTAT Arterial Blood Gas pH 7.23 (7.35-7.45); iSTAT Arterial Blood Gas pO2 58 mmHg (80-95); iSTAT Carbon Dioxide 17 mmol/L (24-31); iSTAT Hematocrit 42 % (42-52); iSTAT Hemoglobin 14.3 g/dl (14.0-18.0); iSTAT Potassium 5.3 mmol/L (3.3-5.0); iSTAT Sodium 130 mmol/L (135-144)
[2023-06-02] MEDS ORDERED: OPTIRAY 320 125ml IV ONE (00:34)
[2023-06-02] MEDS ORDERED: SODIUM CHLORIDE 0.9% 1,000 ML IV ONE ×4 (00:35→04:00)
[2023-06-02 00:54] LABS: Appearance Urine Clear (Clear); Bacteria Urine Automated Negative (Negative); Bilirubin Urine Negative (Negative); Blood Urine Negative (Negative); Cast Urine Automated 0 /lpf (0-5); Color Urine Yellow; Glucose Urine UA 3+ (Negative); Ketones Urine 1+ (Negative); Leukocyte Esterase Urine Negative (Negative); Nitrite Urine Negative (Negative); Protein Urine Trace (Negative); RBC Urine Automated 0-4 /hpf (0-4); Specific Gravity Urine 1.028 (1.000-1.030); Urobilinogen Urine Negative (Negative); WBC Urine Automated 0 /hpf (0-5)
--- NOTE | 2023-06-02 00:58 | CT Scan Report ---
Exam(s): CT HEAD Without Contrast EXAM: CT Head Without Intravenous Contrast CLINICAL HISTORY: ams. TECHNIQUE: Axial computed tomography images of the head/brain without intravenous contrast. CTDI is 102.3 mGy and DLP is 2082.46 mGy-cm. Automated exposure control was utilized for the study. A dose lowering technique was utilized adhering to the principles of ALARA. COMPARISON: Noncontrast CT head dated 02/11/2023 FINDINGS: Limitations: There is motion artifact, despite repeated imaging attempts, which degrades image quality throughout the examination. Brain: No obvious intracranial hemorrhage; evaluation for extra-axial pathology is limited along the margins of the parenchyma in regions of streak motion artifact. No mass effect. No obvious cortical infarct. The parenchyma is similar in morphology to the previous examination. Subcentimeter hypodense areas in the basal ganglia and caudate heads bilaterally appears stable. Periventricular deep white matter hypodense changes noted. Ventricles: Unremarkable. No ventriculomegaly. Bones/joints: No obvious skull fracture, accounting for limitations. Soft tissues: Unremarkable. Sinuses: Unremarkable as visualized. No acute sinusitis. Mastoid air cells: Unremarkable as visualized. No mastoid effusion. Other findings: Asymmetric hyperdensity along the posterior right occiput is thought to be stable from the previous examination. IMPRESSION: Limited by motion artifact despite repeated imaging attempts. No obvious intracranial hemorrhage. A subtle extra-axial process is difficult to exclude in regions of significant motion artifact. No midline shift or mass effect. No appreciable alteration in appearance of the parenchyma when compared to the previous examination. Communications: Call Doctor Stroke Electronically signed by: Matt Thorpe MD 06/02/23 00:56 AM
[2023-06-02 01:01] LABS: Albumin Globulin Ratio 1.3 (0.9-2); Albumin Level 4.4 gm/dl (3.4-5.0); BUN Creatinine Ratio 20.3 (10-20); Bilirubin,Total 0.3 mg/dl (0.2-1.0); Calcium 8.9 mg/dl (8.6-10.3); Creatinine Clr Calc Pharmacy 109.9 ml/min; Est GFR (African American) 116.2 ml/min; Est GFR (Non-African American) 100.3 ml/min; Globulin 3.4 gm/dl (2.5-4.0); Magnesium 1.4 mg/dl (1.7-2.4); Potassium 6.6 mmol/L (3.5-5.1); Thyroid Stimulating Hormone 1.35 uIu/ml (0.300-4.500); Total Protein 7.8 gm/dl (6.0-8.3); Troponin I High Sensitivity 4.6 pg/ml (0-20)
--- NOTE | 2023-06-02 01:01 | CT Scan Report ---
Exam(s): CTA HEAD With Contrast IV Amt: 116 ml opti 320 EXAM: CT Angiography Head With Intravenous Contrast CLINICAL HISTORY: ams. TECHNIQUE: Axial computed tomographic angiography images of the head with intravenous contrast. CTDI is 45.02 mGy and DLP is 2082.46 mGy-cm. Automated exposure control was utilized for the study. A dose lowering technique was utilized adhering to the principles of ALARA. MIP reconstructed images were created and reviewed. CONTRAST: Patient received 116 ml opti 320 of IV contrast COMPARISON: No relevant prior studies available. FINDINGS: Limitations: There is motion artifact, which degrades image quality on multiple image slices. Right internal carotid artery: Atherosclerotic calcification of the cavernous segment of the right internal carotid artery. The petrous and supraclinoid segments are patent. Intracranial segment is patent with no significant stenosis. No aneurysm. Right anterior cerebral artery: Unremarkable. No occlusion or significant stenosis. No aneurysm. Right middle cerebral artery: Unremarkable. No occlusion or significant stenosis. No aneurysm. Right posterior cerebral artery: Unremarkable. No occlusion or significant stenosis. No aneurysm. Right vertebral artery: The right vertebral artery is small in caliber but is patent. Left internal carotid artery: Atherosclerotic calcification of the cavernous segment of the left internal carotid artery. The petrous and supraclinoid segments are patent. Intracranial segment is patent with no significant stenosis. No aneurysm. Left anterior cerebral artery: Unremarkable. No occlusion or significant stenosis. No aneurysm. Left middle cerebral artery: Unremarkable. No occlusion or significant stenosis. No aneurysm. Left posterior cerebral artery: Unremarkable. No occlusion or significant stenosis. No aneurysm. Left vertebral artery: Unremarkable as visualized. Basilar artery: There is motion artifact through the basilar artery. No obvious focal stenosis. No occlusion or obvious dissection. No aneurysm. Brain: No abnormal parenchymal enhancement identified. IMPRESSION: Negative intracranial CTA examination. No significant stenosis or occlusion identified. Communications: Call Doctor Stroke Electronically signed by: Matt Thorpe MD 06/02/23 01:00 AM
--- NOTE | 2023-06-02 01:04 | CT Scan Report ---
Exam(s): CTA NECK With Contrast IV Amt: 116 ml opti 320 EXAM: CT Angiography Neck With Intravenous Contrast CLINICAL HISTORY: ams. TECHNIQUE: Routine carotid CT angiography protocol was performed with intravenous contrast. NASCET criteria using the distal ICAs for comparison were used for evaluation of stenoses. CTDI is 45.02 mGy and DLP is 2082.46 mGy-cm. Automated exposure control was utilized for the study. A dose lowering technique was utilized adhering to the principles of ALARA. MIP reconstructed images were created and reviewed. CONTRAST: Patient received 116 ml opti 320 of IV contrast COMPARISON: None. FINDINGS: Limitations: There is motion/swallowing artifact, which degrades image quality on multiple image slices, particularly through the proximal internal carotid artery region. VASCULATURE: Right common carotid artery: Unremarkable. No occlusion or significant stenosis. No dissection. Right internal carotid artery: Atherosclerotic calcification of the right proximal internal carotid artery, extending to the carotid bifurcation. No narrowing by NASCET criteria. The mid to distal internal carotid artery is patent. Right external carotid artery: Unremarkable. No occlusion. Right vertebral artery: Mild to moderate ostial narrowing of the right vertebral artery. The right vertebral artery is small in caliber but is otherwise patent without stenosis or occlusion. Left common carotid artery: Unremarkable. No occlusion or significant stenosis. No dissection. Left internal carotid artery: The left internal carotid artery is patent, accounting for motion artifact. Left external carotid artery: Unremarkable. No occlusion. Left vertebral artery: Unremarkable. No occlusion or significant stenosis. No dissection. Brachiocephalic and subclavian arteries: The proximal great vessels demonstrate normal origin pattern without ostial stenosis. Aorta: The aortic arch is patent without dissection or aneurysm. NECK: Bones/joints: Unremarkable. No acute fracture. Soft tissues: Unremarkable. Lung apices: Clear. CAROTID STENOSIS REFERENCE USING NASCET CRITERIA: % ICA stenosis = (1 - narrowest ICA diameter/diameter of distal cervical ICA) x 100. Mild - <50% stenosis. Moderate - 50-69% stenosis. Severe - 70-94% stenosis. Near occlusion - 95-99% stenosis. Occluded - 100% stenosis. IMPRESSION: Mild to moderate ostial stenosis of the proximal right vertebral artery. Otherwise negative cervical CTA examination, accounting for motion artifact. Communications: Call Doctor Stroke Electronically signed by: Matt Thorpe MD 06/02/23 01:03 AM
[2023-06-02] MEDS ORDERED: ALBUTEROL 0.083% NEBU SOLN 3 ML VIAL NEB STA (01:11)
[2023-06-02] MEDS ORDERED: SODIUM BICARB 8.4% INJ 50 MEQ/50 ML SYR IV STA ×2 (01:11→02:29)
[2023-06-02] MEDS ORDERED: NovoLIN-R INSULIN PER UNIT CHARGE IV STA (01:16)
[2023-06-02] MEDS ORDERED: DEXTROSE 10% 250 ML BAG IV ONE (01:17)
[2023-06-02] MEDS ORDERED: DEXTROSE 50% 50 ML SYRINGE IV ONE (01:17)
[2023-06-02] MEDS: CALCIUM GLUCONATE 1,000 MG/60 ML BAG IV SCH ×2 (01:17→01:32)
[2023-06-02] MEDS ORDERED: THIAMINE HCL 100 MG in SYRINGE 9 ML IV STA (01:35)
[2023-06-02] MEDS: MAGNESIUM SULFATE / D5W 1 GM/100 ML BAG IV SCH ×2 (02:04→04:19)
--- NOTE | 2023-06-02 02:14 | History & Physical Report ---
Date of Service June 02, 2023 Assessment & Plan (1) Encephalopathy: Plan: Multifactorial Possible CVA given aphasia on exam Uncontrolled hypertension Severe sepsis SIRS plus lactic acidosis plus hypoxemia secondary to atypical pneumonia rule out COVID 19 infection Metabolic acidosis, clinical dehydration, ketonuria Hypoglycemia noted at patient's home, improved outpatient hemoglobin A1c of 6.5 last month Alcohol abuse home neuropsychotropic meds contributory Hyperkalemia secondary to hypovolemia, clinical dehydration, home medications Chronic anemia, hemoglobin better than baseline likely secondary to hemoconcentration ongoing tobacco abuse PCU Neurochecks Aspirin for stroke prevention MRI brain Additional stroke workup and possible neurology consult pending MRI results Permissive hypertension until acute stroke ruled out CS, Doxycycline Follow lactic acid response to IVF COVID swab; Decadron and Remdesivir indicated if positive given severe illness. Appropriate to hold home basal insulin and potassium for now given hypoglycemia and hyperkalemia on presentation. Home basal insulin may need to be decreased on discharge given hypoglycemia and improved hemoglobin A1c from last confinement (6.5 last month from 16.9 last February,) Nephrology consult RE metabolic acidosis RONNY S at risk protocol, DT precautions Hold home neuropsychotropic meds until patient mentation back to baseline. ISS BG goal 1 10-1 40 Nicotine patch as needed. DVT prophylaxis. Lovenox subcu Full code Case discussed with Dr. Oseguera of Nephrology given worsening pH on repeat VBG (7.02 from 7.23) Bicarb drip recommended by specialist. Total critical care time was 40 minutes. Patient brother requesting updates providers. Mr. Doni Harrison, contact #[phone]. Text document was generated using [employer] voice recognition software. It may contain grammatical or spelling errors. Kindly contact undersigned for clarification of any documentation item in question. History of Present Illness Chief Complaint: Unresponsive, low sugar as per family Primary Care Provider: Liyah Oseguera MD JoshuaHistory obtained from patient's family, ER provider and records. Unable to obtain history from patient secondary to aphasic state. Medical history significant for hypertension, hyperlipidemia, DM 2 insulin requiring, chronic anemia (baseline hemoglobin 9-10), pancreatitis as per records, mood disorder, ongoing tobacco/alcohol abuse. Last confinement February 2023 for hyperglycemia, hyperosmolar syndrome. Hemoglobin A1c noted to be greater than 16.9. Patient discharged on home insulin regimen. Patient blood sugars noted to be low at home since last week as per brother. CGM device beeping as per brother. Patient compliant with home insulin as per brother. Patient looked sick yesterday as per brother. Patient without obvious cough symptoms as per brother. Subsequent emesis. No abdominal pain complaints. Patient still drinking alcohol as per brother. Patient noted to be unresponsive last night by brother. EMS called to patient's home. Blood sugar noted to be 11. Patient started moaning after IV dextrose administered by EMS. Possible facial droop and gaze abnormalities noted. Patient last known to be well around 1 PM yesterday. Patient brought to the ER for evaluation. Serum potassium noted to be 6.6. NSS bolus, calcium gluconate, IV insulin and bicarb administered at the ER. Medical History as above Surgical History : right BKA, GB, dental surgery Family History : Alcoholism Personal/Social history : Ongoing tobacco/alcohol abuse as per records, lives alone Allergies Allergy/AdvReac Type Severity Reaction Status Date / Time No Known Allergies Allergy Verified 06/02/23 02:12 Home Medications Medication Instructions Recorded Confirmed Type blood sugar diagnostic (YeelinkTouch #50 ea 05/03/22 06/02/23 Rx Verio test strips) blood-glucose meter (OneTouch #1 ea 05/03/22 06/02/23 Rx Verio Meter) lancets 33 gauge (OneTouch Delica #100 ea 05/03/22 06/02/23 Rx Lancets) multivitamin 1 tab PO DAILY 09/22/22 06/02/23 History carvedilol 3.125 mg tablet 3.125 mg PO BIDM #60 tabs 09/29/22 06/02/23 Rx duloxetine 20 mg capsule,delayed 20 mg PO QAM #30 caps 09/29/22 06/02/23 Rx release (Cymbalta) folic acid 1 mg tablet 1,000 mcg PO DAILY #30 tabs 09/29/22 06/02/23 Rx thiamine HCl (vitamin B1) 100 mg 100 mg PO DAILY #30 tabs 09/29/22 06/02/23 Rx tablet magnesium oxide 400 mg (241.3 mg 400 mg PO QAM 02/11/23 06/02/23 History magnesium) tablet potassium chloride 20 mEq oral 20 meq PO QAM 02/11/23 06/02/23 History packet pen needle, diabetic 32 gauge x #100 ea 02/15/23 06/02/23 Rx " (Pen Needle) insulin aspart U-100 100 unit/mL 2 unit subcut .WITH SNACKS 06/02/23 06/02/23 History (3 mL) subcutaneous pen insulin aspart U-100 100 unit/mL 4 unit subcut AC 06/02/23 06/02/23 History (3 mL) subcutaneous pen insulin glargine 100 unit/mL (3 20 unit subcut QAM 06/02/23 06/02/23 History mL) subcutaneous pen (Lantus Solostar U-100 Insulin) metformin 500 mg tablet,extended 1,000 mg PO BID 06/02/23 06/02/23 History release 24 hr polyethylene glycol 3350 17 gram 17 g PO DAILY PRN Constipation 06/02/23 06/02/23 History oral powder packet (Miralax) Past Med/Surg History Medical History Alcohol dependence a fifth of liquor and 12 beers daily for yrs. Depression Diabetes mellitus type 2 in nonobese GERD (gastroesophageal reflux disease) HLD (hyperlipidemia) HTN (hypertension) Hx of hematuria Hx of pancreatitis Obesity Pancreatitis, recurrent Phantom pain after amputation of lower extremity Tobacco abuse Surgical History Complete below knee amputation of right lower extremity History of mandibular surgery BR[facility]AW 1978 History of tooth extraction ALL TEETH REMOVED Hx of right BKA 2013 s/p fracture of tibia/fibula with associated infection Family History Sister Family history of diabetes mellitus Brother Pancreatic carcinoma Social History Smoking Status: Current every day smoker Tobacco Type: Cigarettes Second Hand Exposure: No; Hx Alcohol Use: Yes Alcohol type: beer and hard liquor Alcohol Intake Frequency: 4 or More x per/Week Alcohol Intake Frequency Comment: 6 pack of beer + daily Hx Substance Use: Yes Last Used Substance: Unknown Preferred Language: Belarusian Communication Ability: Effective Corporate Intern Required: No Beliefs That Will Affect Care: None marital status: Single Current Living Situation: Family Current Living Situation Comment: lives with brother Other Information That Helps Us Care for You: No Feels Safe at Home: Declines to Answer Assistive Devices: Cane and Prosthesis Review of Systems Review of Systems: Could not be reliably obtained secondary to aphasia Physical Exam Physical Exam: GENERAL: Aphasic, restless, no respiratory distress SKIN: Pallor, warm HEENT: Partial alopecia, pink palpebral conjunctivae, no ptosis, dry buccal mucosa NECK : Supple, short neck, no tenderness CHEST : Decreased breath sounds, no tenderness HEART : Tachycardic, no obvious murmurs ABDOMEN: Some distention, nontender EXTREMITIES : Right BKA stump, no other conspicuous deformities noted NEUROLOGIC : Aphasic, no facial asymmetry, restless Results & Data Results & Data Vital Signs (Past 12 Hours) Vital Signs Temp Pulse Pulse Resp BP BP Pulse Ox 06/02/23 01:42 37 C 06/02/23 01:34 114 H 25 H 99 06/02/23 01:34 146/106 H 06/02/23 01:21 113 H 31 H 99 06/02/23 01:21 147/126 H 06/02/23 01:10 158/120 H 06/02/23 01:10 111 H 35 H 99 06/02/23 01:00 110 H 30 H 100 06/02/23 01:00 131/105 H 06/02/23 00:50 115 H 34 H 98 06/02/23 00:50 159/130 H 06/02/23 00:41 113 H 25 H 98 06/02/23 00:41 139/58 L 06/02/23 00:33 112 H 06/02/23 00:16 115 H 22 194/110 H 90 06/02/23 00:10 163/119 H 06/02/23 00:10 118 H 97 06/02/23 00:04 116 H 22 91 06/02/23 00:04 110 H 22 163/119 H 91 06/02/23 00:01 114 H O2 Del Method O2 Flow Rate 06/02/23 01:42 06/02/23 01:34 Oxymask 06/02/23 01:34 06/02/23 01:21 Oxymask 06/02/23 01:21 06/02/23 01:10 06/02/23 01:10 Oxymask 06/02/23 01:00 Oxymask 06/02/23 01:00 06/02/23 00:50 Oxymask 10 06/02/23 00:50 06/02/23 00:41 Oxymask 10 06/02/23 00:41 06/02/23 00:33 06/02/23 00:16 Nasal Cannula 06/02/23 00:10 06/02/23 00:10 Oxymask 10 06/02/23 00:04 Oxymask 10 06/02/23 00:04 Oxymask 10 06/02/23 00:01 Laboratory Results Laboratory Results WBC 7.32 K/ul (4.8-10.8) 06/02/23 00:00 RBC 4.81 M/uL (4.70-6.10) 06/02/23 00:00 Hgb 13.5 g/dl (14.0-18.0) L 06/02/23 00:00 POC Hgb 14.3 g/dl (14.0-18.0) 06/02/23 00:10 Hct 42.1 % (42.0-52.0) 06/02/23 00:00 POC Hct 42 % (42-52) 06/02/23 00:10 MCV 87.5 fL (80.0-100.0) 06/02/23 00:00 MCH 28.1 pg (25.0-34.0) 06/02/23 00:00 MCHC 32.1 g/dL (32.0-36.0) 06/02/23 00:00 RDW Std Deviation 41.8 fL (36.4-46.3) 06/02/23 00:00 RDW Coeff of Miguel 13.1 % (11.5-14.5) 06/02/23 00:00 Plt Count 278 K/uL (130-400) 06/02/23 00:00 MPV 8.9 fL (9.4-12.4) L 06/02/23 00:00 Immature Gran % (Auto) 0.3 % 06/02/23 00:00 Neut % (Auto) 81.5 % 06/02/23 00:00 Lymph % (Auto) 12.8 % 06/02/23 00:00 [place] % (Auto) 5.3 % 06/02/23 00:00 Eos % (Auto) 0.0 % 06/02/23 00:00 Baso % (Auto) 0.1 % 06/02/23 00:00 Neut # (Auto) 5.96 K/uL (1.40-6.50) 06/02/23 00:00 Lymph # (Auto) 0.94 K/uL (1.20-3.40) L 06/02/23 00:00 [place] # (Auto) 0.39 K/uL (0.11-0.59) 06/02/23 00:00 Eos # (Auto) 0.00 K/uL (0.00-0.50) 06/02/23 00:00 Baso # (Auto) 0.01 K/uL (0.00-0.20) 06/02/23 00:00 Immature Gran # (Auto) 0.02 K/uL (0.01-0.20) 06/02/23 00:00 POC pH 7.23 (7.35-7.45) L 06/02/23 00:10 POC pCO2 39 mmHg (35-46) 06/02/23 00:10 POC pO2 58 mmHg (80-95) L 06/02/23 00:10 POC HCO3 16 joe/L (19-24) L 06/02/23 00:10 POC Total CO2 17 mmol/L (24-31) L 06/02/23 00:10 POC Base Excess -11.0 joe/L (-9-1.8) L 06/02/23 00:10 POC ABG O2 Sat 84.0 % (90-95) L 06/02/23 00:10 VBG pH 7.02 (7.36-7.41) L 06/02/23 01:46 POC Sodium 130 mmol/L (135-144) L 06/02/23 00:10 Sodium 128 mmol/L (136-145) L 06/02/23 00:00 POC Potassium 5.3 mmol/L (3.3-5.0) H 06/02/23 00:10 Potassium 6.6 mmol/L (3.5-5.1) H* 06/02/23 00:00 Chloride 96 mmol/L (98-107) L 06/02/23 00:00 Carbon Dioxide 20 mmol/L (21-32) L 06/02/23 00:00 Anion Gap 12 (3-11) H 06/02/23 00:00 BUN 15 mg/dl (6-23) 06/02/23 00:00 Creatinine 0.74 mg/dl (0.6-1.4) 06/02/23 00:00 Est Cr Clr Drug Dosing 109.9 ml/min 06/02/23 00:00 Est GFR ( Amer) 116.2 ml/min 06/02/23 00:00 Est GFR (Non-Af Amer) 100.3 ml/min 06/02/23 00:00 BUN/Creatinine Ratio 20.3 (10-20) H 06/02/23 00:00 Glucose 263 mg/dl (70-99(Fasting)) H 06/02/23 00:00 POC Glucose 234 mg/dl (70-99) H 06/02/23 02:07 Lactate 5.2 mmol/L (0.4-2.0) H* 06/02/23 01:53 Calcium 8.9 mg/dl (8.6-10.3) 06/02/23 00:00 Magnesium 1.4 mg/dl (1.7-2.4) L 06/02/23 00:00 Total Bilirubin 0.3 mg/dl (0.2-1.0) 06/02/23 00:00 AST 16 U/L (13-39) 06/02/23 00:00 ALT 8 U/L (7-52) 06/02/23 00:00 Alkaline Phosphatase 101 U/L (34-104) 06/02/23 00:00 Total Creatine Kinase 134 U/L (30-223) 06/02/23 00:00 Troponin I High Sens 4.6 pg/ml (0-20) 06/02/23 00:00 Total Protein 7.8 gm/dl (6.0-8.3) 06/02/23 00:00 Albumin 4.4 gm/dl (3.4-5.0) 06/02/23 00:00 Globulin 3.4 gm/dl (2.5-4.0) 06/02/23 00:00 Albumin/Globulin Ratio 1.3 (0.9-2) 06/02/23 00:00 TSH 1.350 uIu/ml (0.300-4.500) 06/02/23 00:00 Urine Color Yellow 06/02/23 00:37 Urine Appearance Clear (Clear) 06/02/23 00:37 Urine pH 5.0 (4.5-7.5) 06/02/23 00:37 Ur Specific [place] 1.028 (1.000-1.030) 06/02/23 00:37 Urine Protein Trace (Negative) H 06/02/23 00:37 Urine Glucose (UA) 3+ (Negative) H 06/02/23 00:37 Urine Ketones 1+ (Negative) H 06/02/23 00:37 Urine Blood Negative (Negative) 06/02/23 00:37 Urine Nitrite Negative (Negative) 06/02/23 00:37 Urine Bilirubin Negative (Negative) 06/02/23 00:37 Urine Urobilinogen Negative (Negative) 06/02/23 00:37 Ur Leukocyte Esterase Negative (Negative) 06/02/23 00:37 Urine WBC (Auto) 0 /hpf (0-5) 06/02/23 00:37 Urine RBC (Auto) 0-4 /hpf (0-4) 06/02/23 00:37 U Hyaline Cast (Auto) 0 /lpf (0-5) 06/02/23 00:37 U Epithel Cells (Auto) 5-10 /lpf (0-5) H 06/02/23 00:37 Urine Bacteria (Auto) Negative (Negative) 06/02/23 00:37 Ethyl Alcohol mg/dL 32.3 mg/dl (<10.0) H 06/02/23 00:00 SARS-CoV-2, RNA, NAAT NEGATIVE (NEGATIVE) 06/02/23 00:[address] 06/02/23 00:05 CR Exam(s): CT HEAD Without Contrast EXAM: CT Head Without Intravenous Contrast CLINICAL HISTORY: ams. TECHNIQUE: Axial computed tomography images of the head/brain without intravenous contrast. CTDI is 102.3 mGy and DLP is 2082.46 mGy-cm. Automated exposure control was utilized for the study. A dose lowering technique was utilized adhering to the principles of ALARA. COMPARISON: Noncontrast CT head dated 02/11/2023 FINDINGS: Limitations: There is motion artifact, despite repeated imaging attempts, which degrades image quality throughout the examination. Brain: No obvious intracranial hemorrhage; evaluation for extra-axial pathology is limited along the margins of the parenchyma in regions of streak motion artifact. No mass effect. No obvious cortical infarct. The parenchyma is similar in morphology to the previous examination. Subcentimeter hypodense areas in the basal ganglia and caudate heads bilaterally appears stable. Periventricular deep white matter hypodense changes noted. Ventricles: Unremarkable. No ventriculomegaly. Bones/joints: No obvious skull fracture, accounting for limitations. Soft tissues: Unremarkable. Sinuses: Unremarkable as visualized. No acute sinusitis. Mastoid air cells: Unremarkable as visualized. No mastoid effusion. Other findings: Asymmetric hyperdensity along the posterior right occiput is thought to be stable from the previous examination. IMPRESSION: Limited by motion artifact despite repeated imaging attempts. No obvious intracranial hemorrhage. A subtle extra-axial process is difficult to exclude in regions of significant motion artifact. No midline shift or mass effect. No appreciable alteration in appearance of the parenchyma when compared to the previous examination. Communications: Call Doctor Stroke Electronically signed by: Matt Thorpe MD 06/02/23 00:56 AM Head CTA 06/02/23 00:05 CR Exam(s): CTA HEAD With Contrast IV Amt: 116 ml opti 320 EXAM: CT Angiography Head With Intravenous Contrast CLINICAL HISTORY: ams. TECHNIQUE: Axial computed tomographic angiography images of the head with intravenous contrast. CTDI is 45.02 mGy and DLP is 2082.46 mGy-cm. Automated exposure control was utilized for the study. A dose lowering technique was utilized adhering to the principles of ALARA. MIP reconstructed images were created and reviewed. CONTRAST: Patient received 116 ml opti 320 of IV contrast COMPARISON: No relevant prior studies available. FINDINGS: Limitations: There is motion artifact, which degrades image quality on multiple image slices. Right internal carotid artery: Atherosclerotic calcification of the cavernous segment of the right internal carotid artery. The petrous and supraclinoid segments are patent. Intracranial segment is patent with no significant stenosis. No aneurysm. Right anterior cerebral artery: Unremarkable. No occlusion or significant stenosis. No aneurysm. Right middle cerebral artery: Unremarkable. No occlusion or significant stenosis. No aneurysm. Right posterior cerebral artery: Unremarkable. No occlusion or significant stenosis. No aneurysm. Right vertebral artery: The right vertebral artery is small in caliber but is patent. Left internal carotid artery: Atherosclerotic calcification of the cavernous segment of the left internal carotid artery. The petrous and supraclinoid segments are patent. Intracranial segment is patent with no significant stenosis. No aneurysm. Left anterior cerebral artery: Unremarkable. No occlusion or significant stenosis. No aneurysm. Left middle cerebral artery: Unremarkable. No occlusion or significant stenosis. No aneurysm. Left posterior cerebral artery: Unremarkable. No occlusion or significant stenosis. No aneurysm. Left vertebral artery: Unremarkable as visualized. Basilar artery: There is motion artifact through the basilar artery. No obvious focal stenosis. No occlusion or obvious dissection. No aneurysm. Brain: No abnormal parenchymal enhancement identified. IMPRESSION: Negative intracranial CTA examination. No significant stenosis or occlusion identified. Communications: Call Doctor Stroke Electronically signed by: Matt Thorpe MD 06/02/23 01:00 AM Neck CTA 06/02/23 00:05 CR Exam(s): CTA NECK With Contrast IV Amt: 116 ml opti 320 EXAM: CT Angiography Neck With Intravenous Contrast CLINICAL HISTORY: ams. TECHNIQUE: Routine carotid CT angiography protocol was performed with intravenous contrast. NASCET criteria using the distal ICAs for comparison were used for evaluation of stenoses. CTDI is 45.02 mGy and DLP is 2082.46 mGy-cm. Automated exposure control was utilized for the study. A dose lowering technique was utilized adhering to the principles of ALARA. MIP reconstructed images were created and reviewed. CONTRAST: Patient received 116 ml opti 320 of IV contrast COMPARISON: None. FINDINGS: Limitations: There is motion/swallowing artifact, which degrades image quality on multiple image slices, particularly through the proximal internal carotid artery region. VASCULATURE: Right common carotid artery: Unremarkable. No occlusion or significant stenosis. No dissection. Right internal carotid artery: Atherosclerotic calcification of the right proximal internal carotid artery, extending to the carotid bifurcation. No narrowing by NASCET criteria. The mid to distal internal carotid artery is patent. Right external carotid artery: Unremarkable. No occlusion. Right vertebral artery: Mild to moderate ostial narrowing of the right vertebral artery. The right vertebral artery is small in caliber but is otherwise patent without stenosis or occlusion. Left common carotid artery: Unremarkable. No occlusion or significant stenosis. No dissection. Left internal carotid artery: The left internal carotid artery is patent, accounting for motion artifact. Left external carotid artery: Unremarkable. No occlusion. Left vertebral artery: Unremarkable. No occlusion or significant stenosis. No dissection. Brachiocephalic and subclavian arteries: The proximal great vessels demonstrate normal origin pattern without ostial stenosis. Aorta: The aortic arch is patent without dissection or aneurysm. NECK: Bones/joints: Unremarkable. No acute fracture. Soft tissues: Unremarkable. Lung apices: Clear. CAROTID STENOSIS REFERENCE USING NASCET CRITERIA: % ICA stenosis = (1 - narrowest ICA diameter/diameter of distal cervical ICA) x 100. Mild - <50% stenosis. Moderate - 50-69% stenosis. Severe - 70-94% stenosis. Near occlusion - 95-99% stenosis. Occluded - 100% stenosis. IMPRESSION: Mild to moderate ostial stenosis of the proximal right vertebral artery. Otherwise negative cervical CTA examination, accounting for motion artifact. Communications: Call Doctor Stroke Electronically signed by: Matt Thorpe MD 06/02/23 01:[address] chest: Subtle ground-glass opacities noted scattered throughout the inferior right upper lobe, the right middle lobe and right lower lobe. Findings are most consistent with multifocal pneumonia, to include atypical bacterial and viral etiologies. CT abdomen pelvis: 1. There is respiratory artifact, which degrades image quality throughout the examination. 2. Diffuse calcifications throughout the small pancreas are similar to the previous examination and most consistent with chronic pancreatitis. Evaluation for subtle peripancreatic fat stranding is somewhat limited by respiratory artifact. No ductal dilation or loculated pseudocysts. 3. No bowel obstruction. No free intraperitoneal fluid or pneumoperitoneum. 4. Excreted contrast in the renal collecting systems and ureters. Minimal contrast in the bladder with Saravia catheter in position. Diagnostic Findings EKG as per my interpretation : Rate 115, sinus tachycardia, RAD, no ischemia, multiple artifacts
[2023-06-02] MEDS ORDERED: PROMETHAZINE HCL 6.25 MG in SODIUM CHLORIDE 0.9% 50 ML IV PRN (02:22)
[2023-06-02] MEDS ORDERED: ASPIRIN 300 MG SUPP PR STA (02:27)
[2023-06-02] MEDS ORDERED: LORazepam 1 MG in SYRINGE 0.5 ML IV PRN ×2 (02:30→08:22)
[2023-06-02] MEDS ORDERED: LORazepam 1 MG/1 ML SYR ED Inj Use ONE (02:46)
[2023-06-02] MEDS ORDERED: ACETAMINOPHEN 1,000 MG/100 ML VIAL IV STA (02:53)
[2023-06-02] MEDS ORDERED: dilTIAZem HCl 5 MG/ML 5 ML VIAL IV STA (02:58)
[2023-06-02 03:06] LABS: Amphetamines+Metham, Urine Neg (Neg); Barbiturates, Urine Neg (Neg); Benzodiazepine, Urine Neg (Neg); Cocaine, Urine Neg (Neg); MDMA (Ecstacy), Urine Neg (Neg); Marijuana, Urine Neg (Neg); Methadone, Urine Neg (Neg); Opiate, Urine Neg (Neg); Phencyclidine, Urine Neg (Neg)
[2023-06-02 03:06] LABS: Base Excess VBG -18.6 mEq/L; HCO3 VBG 12 mmol/L; Oxygen Saturation VBG 60.2 %; PCO2 VBG 47 mmHg (38-50); PO2 VBG 37 mmHg; pH VBG 7.02 (7.36-7.41)
[2023-06-02 03:29] LABS: BUN Creatinine Ratio 21.9 (10-20); Calcium 8.9 mg/dl (8.6-10.3); Creatinine Clr Calc Pharmacy 111.4 ml/min; Est GFR (African American) 116.9 ml/min; Est GFR (Non-African American) 100.8 ml/min; Potassium 5.1 mmol/L (3.5-5.1)
[2023-06-02] MEDS ORDERED: STAT IV/IM STA (03:39)
[2023-06-02] MEDS ORDERED: SODIUM BICARBONATE 8.4% 150 MEQ in DEXTROSE 5% 1,000 ML IV SCH (04:15)
[2023-06-02] MEDS ORDERED: GLUCOSE 10 TAB/TUBE PO PRN (04:31)
[2023-06-02] MEDS ORDERED: GLUCAGON FOR INJ 1 MG VIAL SQ PRN (04:31)
[2023-06-02] MEDS ORDERED: GLUCOSE 40% GEL 15 GM TUBE PO PRN (04:31)
[2023-06-02] MEDS ORDERED: PHARMACIST DISCHARGE MED REC CONSULT PRN (04:31)
[2023-06-02] MEDS ORDERED: DEXTROSE 50% 50 ML SYRINGE IV PRN (04:31)
--- NOTE | 2023-06-02 05:10 | CT Scan Report ---
Exam(s): CT ABDOMEN + PELVIS Without Contrast EXAM: CT Abdomen and Pelvis Without Intravenous Contrast CLINICAL HISTORY: nv. TECHNIQUE: Axial computed tomography images of the abdomen and pelvis without intravenous contrast. CTDI is 27.69 mGy and DLP is 1267.76 mGy-cm. Automated exposure control was utilized for the study. A dose lowering technique was utilized adhering to the principles of ALARA. COMPARISON: Unenhanced CT abdomen and pelvis dated 09/22/2022 FINDINGS: Limitations: There is respiratory artifact, which degrades image quality throughout the examination. Lung bases: Unremarkable. No mass. No consolidation. ABDOMEN: Liver: The unenhanced liver demonstrates no focal abnormality. Gallbladder and bile ducts: Unremarkable. No calcified stones. No ductal dilation. Pancreas: Diffuse calcifications throughout the small pancreas are similar to the previous examination. Evaluation for subtle peripancreatic fat stranding is somewhat limited by respiratory artifact. No ductal dilation or loculated pseudocysts. Spleen: Unremarkable. No splenomegaly. Adrenals: Unremarkable. No mass. Kidneys and ureters: The kidneys demonstrate some residual enhancement with excreted contrast in the renal collecting systems and intermittently throughout the ureters. No obstructing stones. No hydronephrosis. Stomach and bowel: The stomach is moderately distended with gas and fluid. No bowel obstruction. Evaluation the bowel mucosa is limited without contrast and respiratory artifact. PELVIS: Appendix: No findings to suggest acute appendicitis. Bladder: The bladder is decompressed with a Saravia catheter in position. There is contrast in the bladder limiting evaluation for bladder stones. Reproductive: Unremarkable as visualized. ABDOMEN and PELVIS: Intraperitoneal space: Unremarkable. No free air. No significant fluid collection. Bones/joints: Prior ORIF of the left proximal femur and hip. No acute osseous abnormality. No dislocation. Soft tissues: Unremarkable. Vasculature: Unremarkable. No abdominal aortic aneurysm. Lymph nodes: Unremarkable. No enlarged lymph nodes. IMPRESSION: 1. There is respiratory artifact, which degrades image quality throughout the examination. 2. Diffuse calcifications throughout the small pancreas are similar to the previous examination and most consistent with chronic pancreatitis. Evaluation for subtle peripancreatic fat stranding is somewhat limited by respiratory artifact. No ductal dilation or loculated pseudocysts. 3. No bowel obstruction. No free intraperitoneal fluid or pneumoperitoneum. 4. Excreted contrast in the renal collecting systems and ureters. Minimal contrast in the bladder with Saravia catheter in position. Electronically signed by: Matt Thorpe MD 06/02/23 05:09 AM
--- NOTE | 2023-06-02 05:13 | CT Scan Report ---
Exam(s): CT CHEST Without Contrast EXAM: CT Chest Without Intravenous Contrast CLINICAL HISTORY: low o2. TECHNIQUE: Axial computed tomography images of the chest without intravenous contrast. CTDI is 27.69 mGy and DLP is 1267.76 mGy-cm. Automated exposure control was utilized for the study. A dose lowering technique was utilized adhering to the principles of ALARA. COMPARISON: No relevant prior studies available. FINDINGS: Artifacts: Scatter artifact likely related to patient's arm position. Limitations: There is respiratory artifact, which degrades image quality on multiple image slices. Lungs: Subtle ground-glass opacities noted scattered throughout the inferior right upper lobe, the right middle lobe and right lower lobe. The left lung appears to be well aerated, accounting for respiratory artifact, without definite focal consolidation. Pleural space: Unremarkable. No pneumothorax. No significant effusion. Heart: The cardiac chambers are normal in size. Coronary artery calcification of the proximal to mid LAD distribution is of uncertain clinical significance. No pericardial effusion. Bones/joints: Moderately severe degenerative changes of the right shoulder. No acute osseous abnormality. Soft tissues: Unremarkable. Vasculature: The thoracic aorta is normal in caliber with minimal atherosclerotic calcification of the aortic arch. Detailed evaluation limited without contrast. Lymph nodes: Unremarkable. No enlarged lymph nodes. IMPRESSION: Subtle ground-glass opacities noted scattered throughout the inferior right upper lobe, the right middle lobe and right lower lobe. Findings are most consistent with multifocal pneumonia, to include atypical bacterial and viral etiologies. Electronically signed by: Matt Thorpe MD 06/02/23 05:12 AM
[2023-06-02] MEDS ORDERED: DOXYCYCLINE HYCLATE 100 MG in DEXTROSE 5% MINI-B 100 ML IV ONE (05:30)
[2023-06-02] MEDS: INSULIN ASPART PER UNIT CHARGE SC SCH ×3 (05:46→18:28)
[2023-06-02 05:54] LABS: Base Excess VBG 1.2 mEq/L; HCO3 VBG 27 mmol/L; Oxygen Saturation VBG 80.4 %; PCO2 VBG 44 mmHg (38-50); PO2 VBG 49 mmHg; pH VBG 7.39 (7.36-7.41)
[2023-06-02] MEDS ORDERED: HEPARIN SOD 5,000 UNIT/0.5 ML VIAL SQ SCH (06:00)
[2023-06-02 06:06] LABS: BUN Creatinine Ratio 23.1 (10-20); Calcium 8.9 mg/dl (8.6-10.3); Creatinine Clr Calc Pharmacy 128.7 ml/min; Est GFR (African American) 122.6 ml/min; Est GFR (Non-African American) 105.7 ml/min; Potassium 4.2 mmol/L (3.5-5.1)
[2023-06-02 06:08] LABS: Acetaminophen 5 ug/ml (10-30); Salicylate < 3.0 mg/dl (3.0-30)
[2023-06-02] MEDS ORDERED: LACTATED RINGER'S 1,000 ML IV SCH (06:30)
[2023-06-02 06:37] LABS: Lyme Ab IgG w/WB Rflx Negative (Negative); Lyme Ab IgM w/WB Rflx Negative (Negative)
--- NOTE | 2023-06-02 07:42 | Nephrology Consultation ---
Date of Consultation June 02, 2023 History of Present Illness Reason for Consultation: hyperkalemia, arf, metabolic acidosis Requesting Physician: Dr Kemp Attending Physician: Sergio Chávez MD History of Present Illness 62 y/o M whom I'm asked to see for hyperkalemia, acute renal failure, metabolic acidosis was admitted early this morning with multifactorial encephalopathy attributed to uncontrolled HTN, severe sepsis, possible stroke, EtOH abuse, psychotropic home meds. PMH includes hypertension, DM 2 on insulin, chronic anemia (baseline hemoglobin 9-10), ongoing EtOH use, hx of pancreatitis, HL, mood disorder, ongoing tobacco/alcohol abuse. He was admitted here 02/2023 for hyperosmolar syndrome w/ A1c > 16.9%. Last confinement February 2023 for hyperglycemia, hyperosmolar syndrome. Hemoglobin A1c noted to be greater than 16.9. Patient discharged on home insulin regimen. Pt had reportedly been having some lower BG at home prior to admission and had appeared somewhat ill yesterday w/ some emesis. Found unresponsive at home w/ BG 11, responded to dextrose. concern for facial droop as he was resuscitated. On arrival to ER K 6.6, Patient blood sugars noted to be low at home since last week as per brother. CGM device beeping as per brother. Patient compliant with home insulin as per brother. Patient looked sick yesterday as per brother. Patient without obvious cough symptoms as per brother. Subsequent emesis. No abdominal pain complaints. Patient still drinking alcohol as per brother. Patient noted to be unresponsive last night by brother. EMS called to patient's home. Blood sugar noted to be 11. Patient started moaning after IV dextrose administered by EMS. Possible facial droop and gaze abnormalities noted. Patient last know Allergies Allergy/AdvReac Type Severity Reaction Status Date / Time No Known Allergies Allergy Verified 06/02/23 02:12 Home Medications Medication Instructions Recorded Confirmed Type blood sugar diagnostic (OneTouch #50 ea 05/03/22 06/02/23 Rx Verio test strips) blood-glucose meter (OneTouch #1 ea 05/03/22 06/02/23 Rx Verio Meter) lancets 33 gauge (OneTouch Delica #100 ea 05/03/22 06/02/23 Rx Lancets) multivitamin 1 tab PO DAILY 09/22/22 06/02/23 History carvedilol 3.125 mg tablet 3.125 mg PO BIDM #60 tabs 09/29/22 06/02/23 Rx duloxetine 20 mg capsule,delayed 20 mg PO QAM #30 caps 09/29/22 06/02/23 Rx release (Cymbalta) folic acid 1 mg tablet 1,000 mcg PO DAILY #30 tabs 09/29/22 06/02/23 Rx thiamine HCl (vitamin B1) 100 mg 100 mg PO DAILY #30 tabs 09/29/22 06/02/23 Rx tablet magnesium oxide 400 mg (241.3 mg 400 mg PO QAM 02/11/23 06/02/23 History magnesium) tablet potassium chloride 20 mEq oral 20 meq PO QAM 02/11/23 06/02/23 History packet pen needle, diabetic 32 gauge x #100 ea 02/15/23 06/02/23 Rx /32" (Pen Needle) insulin aspart U-100 100 unit/mL 2 unit subcut .WITH SNACKS 06/02/23 06/02/23 History (3 mL) subcutaneous pen insulin aspart U-100 100 unit/mL 4 unit subcut AC 06/02/23 06/02/23 History (3 mL) subcutaneous pen insulin glargine 100 unit/mL (3 20 unit subcut QAM 06/02/23 06/02/23 History mL) subcutaneous pen (Lantus Solostar U-100 Insulin) metformin 500 mg tablet,extended 1,000 mg PO BID 06/02/23 06/02/23 History release 24 hr polyethylene glycol 3350 17 gram 17 g PO DAILY PRN Constipation 06/02/23 06/02/23 History oral powder packet (Miralax) Patient History Medical History Alcohol dependence a fifth of liquor and 12 beers daily for yrs. Depression Diabetes mellitus type 2 in nonobese GERD (gastroesophageal reflux disease) HLD (hyperlipidemia) HTN (hypertension) Hx of hematuria Hx of pancreatitis Obesity Pancreatitis, recurrent Phantom pain after amputation of lower extremity Tobacco abuse Surgical History Complete below knee amputation of right lower extremity History of mandibular surgery [facility]AW 1978 History of tooth extraction ALL TEETH REMOVED Hx of right BKA 2014 s/p fracture of tibia/fibula with associated infection Family History Sister Family history of diabetes mellitus Brother Pancreatic carcinoma Social History Smoking Status: Current every day smoker Tobacco Type: Cigarettes Second Hand Exposure: No; Hx Alcohol Use: Yes Alcohol type: beer and hard liquor Alcohol Intake Frequency: 4 or More x per/Week Alcohol Intake Frequency Comment: 6 pack of beer + daily Hx Substance Use: Yes Last Used Substance: Unknown Preferred Language: [place] Leonean Communication Ability: Effective Lead Cargoman Required: No Beliefs That Will Affect Care: None marital status: Single Current Living Situation: Family Current Living Situation Comment: lives with brother Other Information That Helps Us Care for You: No Feels Safe at Home: Declines to Answer Assistive Devices: Cane and Prosthesis Results & Data Vital Signs (Past 12 Hours) Vital Signs Temp Pulse Pulse Resp BP BP Pulse Ox 06/02/23 07:06 37.3 C 99 H 21 149/86 H 99 06/02/23 04:31 06/02/23 04:19 117 H 06/02/23 04:15 38.3 C H 111 H 25 H 173/103 H 98 06/02/23 04:15 06/02/23 04:15 38.3 C H 116 H 28 H 163/110 H 98 06/02/23 03:20 116 H 32 H 95 06/02/23 03:20 152/118 H 06/02/23 03:20 38 C H 06/02/23 03:15 38 C H 06/02/23 03:10 122 H 38 H 99 06/02/23 03:10 144/115 H 06/02/23 03:01 186/114 H 06/02/23 03:01 114 H 41 H 100 06/02/23 02:50 172/111 H 06/02/23 02:50 113 H 35 H 100 06/02/23 02:41 116 H 29 H 100 06/02/23 02:41 185/131 H 06/02/23 02:30 115 H 34 H 100 06/02/23 02:30 196/134 H 06/02/23 02:20 165/117 H 06/02/23 02:20 117 H 28 H 98 06/02/23 02:11 118 H 39 H 100 06/02/23 02:11 160/132 H 06/02/23 02:00 115 H 38 H 99 06/02/23 02:00 157/125 H 06/02/23 01:42 37 C 06/02/23 01:40 118 H 38 H 100 06/02/23 01:40 169/113 H 06/02/23 01:34 114 H 25 H 99 06/02/23 01:34 146/106 H 06/02/23 01:21 113 H 31 H 99 06/02/23 01:21 147/126 H 06/02/23 01:10 158/120 H 06/02/23 01:10 111 H 35 H 99 06/02/23 01:00 110 H 30 H 100 06/02/23 01:00 131/105 H 06/02/23 00:50 115 H 34 H 98 06/02/23 00:50 159/130 H 06/02/23 00:41 113 H 25 H 98 06/02/23 00:41 139/58 L 06/02/23 00:33 112 H 06/02/23 00:16 115 H 22 194/110 H 90 06/02/23 00:10 163/119 H 06/02/23 00:10 118 H 97 06/02/23 00:04 116 H 22 91 06/02/23 00:04 110 H 22 163/119 H 91 06/02/23 00:01 114 H Pulse Ox O2 Del Method O2 Del Method O2 Flow Rate O2 Flow Rate 06/02/23 07:06 Oxymask 3.5 06/02/23 04:31 100 Oxymask 6 06/02/23 04:19 06/02/23 04:15 Oxymask 6 06/02/23 04:15 Oxymask 6 06/02/23 04:15 Oxymask 6 06/02/23 03:20 Oxymask 10 06/02/23 03:20 06/02/23 03:20 06/02/23 03:15 06/02/23 03:10 Oxymask 10 06/02/23 03:10 06/02/23 03:01 06/02/23 03:01 Oxymask 10 06/02/23 02:50 06/02/23 02:50 Oxymask 10 06/02/23 02:41 Oxymask 10 06/02/23 02:41 06/02/23 02:30 Oxymask 10 06/02/23 02:30 06/02/23 02:20 06/02/23 02:20 Oxymask 10 06/02/23 02:11 Oxymask 10 06/02/23 02:11 06/02/23 02:00 Oxymask 10 06/02/23 02:00 06/02/23 01:42 06/02/23 01:40 Oxymask 10 06/02/23 01:40 06/02/23 01:34 Oxymask 10 06/02/23 01:34 06/02/23 01:21 Oxymask 10 06/02/23 01:21 06/02/23 01:10 06/02/23 01:10 Oxymask 10 06/02/23 01:00 Oxymask 10 06/02/23 01:00 06/02/23 00:50 Oxymask 10 06/02/23 00:50 06/02/23 00:41 Oxymask 10 06/02/23 00:41 06/02/23 00:33 06/02/23 00:16 Nasal Cannula 06/02/23 00:10 06/02/23 00:10 Oxymask 10 06/02/23 00:04 Oxymask 10 06/02/23 00:04 Oxymask 10 06/02/23 00:01
[2023-06-02 07:59] LABS: Influenza A virus by PCR Negative (Neg); Influenza B virus by PCR Negative (Neg); RSV by PCR Negative (Neg); SARS CoV2 RNA(COVID-19) Ceph NEGATIVE (Negative)
[2023-06-02] MEDS ORDERED: PIPER/TAZO 4.5g in D5W MINI-B 100 ML IV ONE (08:15)
[2023-06-02] MEDS ORDERED: PHARMACY GLYCEMIC MGMT CONSULT PRN (08:22)
--- NOTE | 2023-06-02 08:33 | XRay Report ---
XR chest 1V portable HISTORY: 62 years-old Male weakness COMPARISON: Chest CT of same day TECHNIQUE: AP view of the chest FINDINGS: Cardiomediastinal and hilar silhouettes are within normal limits. No pneumothorax, pleural effusion o r overt pulmonary edema. Subtle patchy ill-defined opacities throughout the right lung. Bones appear grossly intact with degenerative changes of the right shoulder. IMPRESSION: Mild patchy ill-defined right lung opacities are suggestive of a mild multifocal pneumoni a. ACT 112: Negative or not required by law. The above report was generated using voice recognition software. It may contain grammatical, syntax o r spelling errors. Electronically signed by: Bj Karimi M.D. 06/02/2023 8:31 AM
[2023-06-02] MEDS ORDERED: INFLUENZA VIRUS QUADRIVALENT VACCINE (IIV4) 0.5 ML SYR IM ONE (09:00)
[2023-06-02] MEDS ORDERED: FOLIC ACID 1 MG TAB PO SCH (09:00)
--- NOTE | 2023-06-02 09:07 | Electrocardiogram Report ---
Test Reason : Blood Pressure : / mmHG Vent. Rate : 115 BPM Atrial Rate : 115 BPM P-R Int : 160 ms QRS Dur : 080 ms QT Int : 342 ms P-R-T Axes : 000 090 068 degrees QTc Int : 473 ms Sinus tachycardia Nonspecific ST abnormality Rightward axis Borderline ECG When compared with ECG of 02-JUN-2023 00:04, No significant change Confirmed by Swapnil Allen ([id number]) on 06/02/2023 9:07:25 AM Referred By: REFERRED SELF Confirmed By:Swapnil Allen
--- NOTE | 2023-06-02 09:07 | Electrocardiogram Report ---
Test Reason : Blood Pressure : / mmHG Vent. Rate : 114 BPM Atrial Rate : 000 BPM P-R Int : 000 ms QRS Dur : 082 ms QT Int : 300 ms P-R-T Axes : 000 038 039 degrees QTc Int : 413 ms Poor data quality, interpretation may be adversely affected Probable Sinus tachycardia with frequent Premature atrial complexes Diffuse Nonspecific ST abnormality Abnormal ECG When compared with ECG of 11-FEB-2023 08:32, Premature atrial complexes now present Confirmed by Swapnil Allen ([id number]) on 06/02/2023 9:07:03 AM Referred By: REFERRED SELF Confirmed By:Swapnil Allen
[2023-06-02] MEDS: FOLIC ACID 1 MG in SYRINGE 9.8 ML IV SCH (09:24)
[2023-06-02] MEDS: ENOXAPARIN INJ 40 MG/0.4 ML SYR SQ SCH (09:24)
[2023-06-02] MEDS: THIAMINE HCL 100 MG in SYRINGE 9 ML IV SCH (09:24)
[2023-06-02 09:51] LABS: BUN Creatinine Ratio 17.9 (10-20); Calcium 8.6 mg/dl (8.6-10.3); Creatinine Clr Calc Pharmacy 107.3 ml/min; Est GFR (African American) 113.7 ml/min; Est GFR (Non-African American) 98.1 ml/min; Potassium 4.4 mmol/L (3.5-5.1)
--- OUTSIDE RECORDS SUMMARY | 2023-06-02 11:12 | External Medical Summary | Summary of Care ---
Author Name Unknown Organization [facility] Address [address] [place] [address] Phone [phone] Care Team Providers Care Efficiency Expert Name Role Phone Liyah Oseguera MD Primary Care Provider [phone] Reason for Visit * Reason Comments Outpatient Testing Encounter Details Date Type Department Care Team (Late st Contact Info) Description 05/04/2023 11:00 AM EST Laboratory Laboratory [facility] [address] [place] [phone] Pod3, Specimen Drop Off [facility] [address] [place] [address] Anemia, unspecified type; Screening for deficiency anemia; Alcohol abuse; Type 2 diabetes mellitus with hemoglobin A1c goal of less than 7.0% ([facility]) Allergies No known active allergiesdocumented as of this encounter (statuses as of 05/04/2023) Medications Medication Sig Dispensed Refills Start Date End Date Status polyethylene glycol 3350 (MIRALAX) 255 gram powderIndications:O ther constipation Take 17 g by mouth as needed for Constipation. Dissolve one heaping tablespoon in 8 ounces of water or juice. 1 Bottle 2 06/16/2018 Active Daily Elise Oral Tablet Take 1 Tab by mouth daily. 0 Active DULoxetine HCl 20 MG Oral Capsule Delayed Release Particles (duloxetine)Indicat ions:MAYELA (generalized anxiety disorder) Take 1 Capsule (20 mg) by mouth in the morning. Do not cut, crush or chew. 30 Capsule 5 05/10/2022 Active Potassium Chloride 20 MEQ Oral PacketIndications:H ypokalemia Take 20 mEq by mouth in the morning. 90 Packet 3 02/25/2023 Active Thiamine HCl 100 MG Oral Tablet (vitamin B-1)Indications:Alc ohol abuse Take 1 Tablet by mouth in the morning. 90 Tablet 3 02/25/2023 Active Magnesium Oxide -Mg Supplement 400 (240 Mg) MG Oral Tablet (Mag-Ox)Indications :Hypokalemia Take 1 Tablet by mouth in the morning. In the morning.. 90 Tablet 3 02/25/2023 Active Folic Acid 1 MG Oral TabletIndications:A lcohol abuse Take 1 Tablet by mouth in the morning. 90 Tablet 3 02/25/2023 Active NovoLOG FlexPen 100 UNIT/ML Subcutaneous Solution Pen-injector (insulin aspart) Take 4 units before normal meals and 2 units with snack 3 mL 5 02/25/2023 Active Novofine Pen Needle 32G X 6 MM (NOVOFINE 32G PEN NEEDLE) Use one needle per injection with flexpen 100 Each 3 03/03/2023 Active OneTouch Verio In Vitro Strip (Glucose Blood)Indications:T ype 2 diabetes mellitus with hemoglobin A1c goal of less than 7.0% (HCC) Use to check blood sugars 3 times daily. E 11.9 300 Strip 3 03/10/2023 Active metFORMIN HCl ER 500 MG Oral Tablet Extended Release 24 Hour (Glucophage XR)Indications:Type 2 diabetes mellitus with hemoglobin A1c goal of less than 7.0% (HCC) Take 2 Tablets by mouth in the morning and 2 Tablets before bedtime. 360 Tablet 4 03/14/2023 Active Dexcom G7 SensorIndications:T ype 2 diabetes mellitus with hemoglobin A1c goal of less than 7.0% (HCC) CHANGE EVERY 10 DAYS. USE TO CHECK BLOOD SUGARS CONTINUOUSLY 3 Each 11 03/14/2023 Active Dexcom G7 Pension Agent DeviceIndications:T ype 2 diabetes mellitus with hemoglobin A1c goal of less than 7.0% (HCC) USE TO CHECK BLOOD SUGARS CONTINOUSLY 1 Each 0 03/14/2023 Active Insulin Glargine Solostar 100 UNIT/ML Subcutaneous Solution Pen-injectorIndicat ions:Type 2 diabetes mellitus with hemoglobin A1c goal of less than 7.0% (HCC) Inject 20 Units under the skin in the morning. If fasting sugar is > 125 for 3 days then increase by 2 units and continue. 0 04/20/2023 Active Carvedilol 3.125 MG Oral Tablet (Coreg)Indications: HTN, goal below 140/90 Take 1 Tablet by mouth 2 times a day with morning and evening meals. 180 Tablet 3 05/04/2023 Active documented as of this encounter (statuses as of 05/04/2023) Active Problems Problem Noted Date Diagnosed Date Other chronic pancreatitis 04/20/2023 Type 2 diabetes mellitus wit h hemoglobin A1c goal of less than 7.0% 02/24/2023 Last Assessment & Plan: Insulin dependent Recent referral to [facility] for management Hemoglobin AIC Results: Lab Results Component Value Date/Time HEMOGLOBIN A1C - [facility] 17.2 (H) 02/24/2023 03:17 PM HEMOGLOBIN A1C - [facility] 9.5 (H) 05/10/2022 12:00 PM HEMOGLOBIN A1C - [facility] 6.5 (H) 03/15/2018 11:31 AM Phantom limb syndrome with pain 05/10/2022 Last Assessment & Plan: Previously on gabaoentin- no longer taking feels controlled without medication Recurrent acute pancreatitis 03/15/2018 History of acute alcohol intoxication 03/15/2018 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 10/10/2017 Last Assessment & Plan: Controlled with duloxetine HTN, goal below 140/90 10/10/2017 Last Assessment & Plan: Controlled with BB daily BP Readings from Last 4 Encounters: 02/25/23 114/62 02/24/23 126/80 05/10/22 122/72 06/16/18 122/76 BMI 27.0-27.9,adult 10/10/2017 Traumatic amputation of leg below knee, right, s equela Alcohol abuse documented as of this encounter (statuses as of 05/04/2023) Resolved Problems Problem Noted Date Diagnosed Date Resolved Date Acute respiratory failure with hypoxia 03/03/2023 03/03/2023 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 03/03/2023 04/20/2023 Last Assessment & Plan: Managed via [facility] for wound care Acquired absence of right leg below knee 02/24/2023 03/03/2023 Hypokalemia 05/10/2022 04/20/2023 Alcohol dependence with with drawal, unspecified 03/15/2018 03/15/2018 Body mass index (BMI) of 40. 0 to 44.9 in adult 11/08/2017 12/20/2017 Overview: Per Obesity protocol #1 documented as of this encounter (statuses as of 05/04/2023) Immunizations Name Administration Dates Next Due Pneumococcal Conjugate Vacci ne, 20-valent ([id number]) 02/24/2023 Pneumococcal Polysaccharide PPV23 (Pneumovax) 05/04/2015 SEASONAL INFLUENZA, PF, 6 M & Above, IM , (FLULAVAL or FLUZONE) 02/24/2023,03/15/2018,03/25/2017 TDAP (age 10 and older)(Boostrix) 03/25/2017 documented as of this encounter Social History Tobacco Use Types Packs/Day Years Used Date Smoking Tobacco: Every Day Cigarettes 0.5 40 Smokeless Tobacco: Never Alcohol Use Standard Drinks/Week Comments Yes 5 (1 standard drink = 0.6 oz pure alcohol) Up until 11/2017, patient was drinking 1 pint- a fifth of Vodka and 12 +beers per day PHQ-2 Answer Date Recorded PHQ-2 Score -1 04/26/2018 Hunger Vital Sign Answer Date Recorded Within the past 12 months, y ou worried that your food would run out before you got the money to buy more. Never true 02/23/20 23 Within the past 12 months, t he food you bought just didn't last and you didn't have money to get more. Never true 02/22/2023 Sex and Gender Information Value Date Recorded Sex Assigned at Not on file Gender Identity Not on file Sexual Orientation Not on file Job Start Date Occupation Industry Not on file Not on file Not on file documented as of this encounter Plan of Treatment Upcoming Encounters Date Type Department Care Team (Kirk st Contact Info) Description 05/06/2023 10:50 AM EST Office Visit Pharmacy, [place] [address] [place] [address] [facility] [address] [facility] [place] [address] 05/26/2023 8:30 AM EST Laboratory Lab [facility] [address] [place] [address] [facility] [address] [place] [address] 05/26/2023 1:00 PM EST Office Visit General Internal Medicine [facility] [place] [address] [facility] [place] [address] Liyah Oseguera MD [address] [facility] [place] [address] 05/31/2023 10:30 AM EST Nutrition Services [facility], [facility] [address] [place] [address] Nhi Shetty RDN [address] [place] [facility] [place] [address] 06/08/2023 11:00 AM EST Home Visit [facility], [facility] [address] [place] [address] Lucia Echevarria, RN [address] [place] [address] Pending Results Name Type Priority Associated Diagnoses Date /Time VITAMIN B12 Lab Routine Screening for deficiency anemia Alcohol abuse 05/04/2023 10:30 AM EST FOLIC ACID Lab Routine Screening for deficiency anemia Alcohol abuse 05/04/2023 10:30 AM EST HEMOGLOBIN A1C Lab Routine Type 2 diabetes mellitus with hemoglobin A1c goal of less than 7.0% ([facility]) 05/04/2023 10:30 AM EST Health Maintenance Due Date Last Done Comments COVID-19 Vaccine (#1) 1962 Diabetic Eye Exam 1980 Cologuard 2007 Colonoscopy 2007 Colorectal Cancer Screening 2007 Fecal Occult Blood Test 2007 Sigmoidoscopy 2007 Zoster Vaccines (1 of 2) 2012 DISCUSS TOBACCO CESSATION (REFER TO SMARTSET #8761) 03/15/2019 03/15/2018 Depression Screening 06/16/2019 06/16/2018 Hepatitis B (1 of 3 - Risk 3-dose series) 2022 Albumin/Creatinine Ratio 05/10/2023 05/10/2022 HbA1c 08/25/2023 02/24/2023, 04/21, 03/15/2018 Diabetic Foot Exam 02/25/2024 02/24/2023 GFR 02/25/2024 02/24/2023, 04/21, 11/13/2018, Additional history exists DTaP,Tdap,and Td Vaccines (2 - Td or Tdap) 03/25/2027 03/25/2017 Lipid Panel 05/10/2027 05/10/2022, 10/10/2017 LUNG CANCER SCREENING - USE SMARTSET 84011 Completed 12/08/2017 Influenza Vaccine (FLU shot) Completed 12/2022, 03/15/2018, 03/25/2017 Pneumococcal Vaccine: Pediatrics (0 to 5 Years) and At-Risk Patients (6 to 64 Years) Completed 02/24/2023, 05/04/2015 GARDASIL-HPV IMMUNIZATION SERIES Aged Out No longer eligible based on patient's age to complete this topic MENINGOCOCCAL (MENACTRA/MENVEO) Aged Out No longer eligible based on patient's age to complete this topic documented as of this encounter Medical Devices Not on filedocumented as of this encounter Procedures Procedure Name Priority Date/Time Associated Diagnosis Comments CBC Routine 05/04/2023 10:30 AM EST Anemia, unspecified type documented in this encounter Results * (ABNORMAL) CBC (05/04/2023 10:30 AM EST) WBC 6.57 4.00 - 10.80 K/uL 05/04/2023 11:04 AM EST [facility] 56-02 RBC 4.18 4.50 - 5.25 M/uL 05/04/2023 11:04 AM EST [facility] 56-02 HGB 11.9(L) 14.0 - 16.8 g/dL 05/04/2023 11:04 AM EST [facility] 56- HCT 37.3(L) 40.0 - 48.4 % 05/04/2023 11:04 AM [facility] 56- MCV 89.2 82.0 - 99.5 fL 05/04/2023 11:04 AM [facility] 56- MCH 28.5 27.0 - 34.0 pg 05/04/2023 11:04 AM [facility] 56- MCHC 31.9 32.0 - 36.0 g/dL 05/04/2023 11:04 AM [facility] 56- RDW 13.1 11.5 - 15.5 % 05/04/2023 11:04 AM [facility] 56- PLT 325 140 - 400 K/uL 05/04/2023 11:04 AM [facility] 56- MPV 8.8 6.6 - 11.1 fL 05/04/2023 11:04 AM [facility] 56- Blood Venous blood specimen / Unknown Venipuncture / Unknown 05/04/2023 10:30 AM EST 05/04/2023 10:55 AM EST Liyah Oseguera MD LAB BLOOD ORDERABLES [facility] [address] [facility] [address] documented in this encounter Visit Diagnoses Diagnosis Anemia, unspecified type Screening for deficiency anemia Screening for other and unspecified deficiency anemia Alcohol abuse Alcohol abuse, unspecified Type 2 diabetes mellitus with hemoglobin A1c goal of less than 7.0% ([facility]) documented in this encounter Care Teams Efficiency Expert Relationship Specialty Start Date End Date Liyah [facility] [address] [facility] [address] PCP - General Internal Medicine 03/25/17 documented as of this encounter
--- OUTSIDE RECORDS SUMMARY | 2023-06-02 11:12 | External Medical Summary | Summary of Care ---
Author Name Unknown Organization [facility] Address [address] [place] [address] Phone [phone] Care Team Providers Care Pluck Trimmer Name Role Phone Liyah Oseguera MD Primary Care Provider [phone] Reason for Visit * Reason Comments [facility]: Maintenance Encounter Details Date Type Department Care Team (Late st Contact Info) Description 05/04/2023 10:00 AM EST Home Visit [facility], [facility] [address] [facility] [place] [address] Lucia Ehcevarria, RN [address] [place] [address] Allergies No known active allergiesdocumented as of this encounter (statuses as of 05/04/2023) Medications Medication Sig Dispensed Refills Start Date End Date Status polyethylene glycol 3350 (MIRALAX) 255 gram powderIndications :Other constipation Take 17 g by mouth as needed for Constipation. Dissolve one heaping tablespoon in 8 ounces of water or juice. 1 Bottle 2 06/16/2018 Active Daily Elise Oral Tablet Take 1 Tab by mouth daily. 0 Active DULoxetine HCl 20 MG Oral Capsule Delayed Release Particles (duloxetine)Indic ations:MAYELA (generalized anxiety disorder) Take 1 Capsule (20 mg) by mouth in the morning. Do not cut, crush or chew. 30 Capsule 5 05/10/2022 Active Potassium Chloride 20 MEQ Oral PacketIndications :Hypokalemia Take 20 mEq by mouth in the morning. 90 Packet 3 02/25/2023 Active Thiamine HCl 100 MG Oral Tablet (vitamin B-1)Indications:A lcohol abuse Take 1 Tablet by mouth in the morning. 90 Tablet 3 02/25/2023 Active Magnesium Oxide -Mg Supplement 400 (240 Mg) MG Oral Tablet (Mag-Ox)Indicatio ns:Hypokalemia Take 1 Tablet by mouth in the morning. In the morning.. 90 Tablet 3 02/25/2023 Active Folic Acid 1 MG Oral TabletIndications :Alcohol abuse Take 1 Tablet by mouth in [...] Active OneTouch Verio In Vitro Strip (Glucose Blood)Indications :Type 2 diabetes mellitus with hemoglobin A1c goal of less than 7.0% (HCC) Use to check blood sugars 3 times daily. E 11.9 300 Strip 3 03/10/2023 Active metFORMIN HCl ER 500 MG Oral Tablet Extended Release 24 Hour (Glucophage XR)Indications:Ty pe 2 diabetes mellitus with hemoglobin A1c goal of less than 7.0% (HCC) Take 2 Tablets by mouth in the morning and 2 Tablets before bedtime. 360 Tablet 4 03/14/2023 Active Dexcom G7 SensorIndications :Type 2 diabetes mellitus with hemoglobin A1c goal of less than 7.0% (HCC) CHANGE EVERY 10 DAYS. USE TO CHECK BLOOD SUGARS CONTINUOUSLY 3 Each 11 03/14/2023 Active Dexcom G7 Replanting Machine Crew DeviceIndications :Type 2 diabetes mellitus with hemoglobin A1c goal of less than 7.0% (HCC) USE TO CHECK BLOOD SUGARS CONTINOUSLY 1 Each 0 03/14/2023 Active Insulin Glargine Solostar 100 UNIT/ML Subcutaneous Solution Pen-injectorIndic ations:Type 2 diabetes mellitus with hemoglobin A1c goal of less than 7.0% (HCC) Inject 20 Units under the skin in the morning. If fasting sugar is > 125 for 3 days then increase by 2 units and continue. 0 04/20/2023 Active Carvedilol 3.125 MG Oral Tablet (Coreg) Take 1 Tablet by mouth 2 times a day with morning and evening meals. 0 3 Discontinue d(Refill) Optifoam 4"X4" Pad Apply to RT stump and change every 3-4 days 10 Each 2 02/25/2023 3 Discontinue d(Medicatio n List Clean Up) documented as of this encounter (statuses as of 05/04/2023) Active Problems Problem Noted Date Diagnosed Date Other chronic pancreatitis 04/20/2023 Type 2 diabetes mellitus wit h hemoglobin A1c goal of less than 7.0% 02/24/2023 Last Assessment & Plan: Insulin dependent Recent referral to [facility] for management Hemoglobin AIC Results: Lab Results [...] 04/20/2023 Last Assessment & Plan: Managed via [facility] for wound care Acquired absence of right leg below knee 02/24/2023 03/03/2023 Hypokalemia 05/10/2022 04/20/2023 Alcohol dependence with with drawal, unspecified 03/15/2018 03/15/2018 Body mass index (BMI) of 40. 0 to 44.9 in adult 11/08/2017 12/20/2017 Overview: Per Obesity protocol #1 documented as of this encounter (statuses as of 05/04/2023) Immunizations Name Administration Dates Next Due Pneumococcal Conjugate Vacci ne, 20-valent ([id number]) 02/24/2023 Pneumococcal Polysaccharide PPV23 (Pneumovax) 05/04/2015 SEASONAL [...] on file documented as of this encounter Last Filed Vital Signs Vital Sign Reading Time Taken Comments Blood Pressure 138/82 05/04/2023 10:12 AM EST Pulse 90 05/04/2023 10:12 AM EST Temperature 37.1 C (98.7 F) 05/04/2023 10:[address] Respiratory Rate 18 05/04/2023 10:12 AM EST Oxygen Saturation 99% 05/04/2023 10:12 AM EST Inhaled Oxygen Concentration - - Weight - - Height - - Body Mass Index - - documented in this encounter Progress Notes * Lucia Echevarria, RN - 05/04/2023 9:36 AM EST [facility] Dewatering Filtering Supervisor Visit Date: 05/04/2023 Time: 9:36 AM Name: Umair Harrison : 1960 Current Concerns: Pt seen for return RNCM visit He states he has been feeling good Denies any changes since last visit Denies falls Denies pain Wound on right stump is healed Blood sugars have been averaging 143 for past 2 weeks - glucometer shows 72% in range, 6 % low and 22% in the high range He states he does not usually feel any different with highs or lows but does occasional get "the sweats" with lows Meds reviewed - pt out of potassium, vit b-1 and Coreg - [facility] contacted - needs rx for coreg - TE sent to PCP Labs ordered by PCP and obtained today CBC/Hgb A1C , B12, Folc Acid Physical Exam: BP 138/82 | Pulse 90 | Temp 37.1 C (98.7 F) | Resp 18 | SpO2 99% Pain 0 Physical Exam Constitutional: General: He is not in acute distress. Cardiovascular: Rate and Rhythm: Normal rate and regular rhythm. Pulses: Normal pulses. Heart sounds: Normal heart sounds. Pulmonary: Effort: Pulmonary effort is normal. Breath sounds: Normal breath sounds. Abdominal: Palpations: Abdomen is soft. Skin: General: Skin is warm and dry. Neurological: Mental Status: He is alert and oriented to person, place, and time. Problems/Symptoms: Review of Systems Constitutional: Negative. HENT: Negative. Eyes: Negative. Respiratory: Negative. Cardiovascular: Negative. Genitourinary: Negative. Musculoskeletal: R bka Skin: Negative. Neurological: Negative. Psychiatric/Behavioral: Negative. Medication Reconciliation: (See medication list) Does patient take medications as ordered: Yes Patient Well Being: PHQ2/9: No questionnaires available. No change in living situation Denies falls [facility] Completed this Visit: No. Routine visit and No falls since last visit Advanced Care Planning: No documentation, acp on file. Patient's Goals of Care: Stay in apartment Stay out of hospital Reinforcement/Education: DIABETES: -Blood sugar testing schedule: Twice a day, once in the morning and again 2 hours after a meal. -Blood sugar goals: Less than 120, fasting and less than 180, 2 hours after a meal -Record and take to PCP appointments -Notify your doctor if your blood sugar is consistently above goal -Hypoglycemia (low blood sugar) action plan: If blood sugar is less than 70 or having symptoms of low blood sugar eat or drink a snack of 15gm of carbohydrate (2-3 glucose tablets, glass juice, 1Cnon-fat milk, etc) wait 15 min if blood sugar still low repeat snack, wait 15 minutes if still low call health care provider. Ask provider if a medication adjustment is needed if experiencing low blood sugars frequently, twice a week or more. -Hyperglycemia (high blood sugar) action Plan: Take medications as directed, test blood sugars frequently, if above goal, contact your health care provider. Ask for changes to medication if blood sugars continue to run above goal. -Eat three well balanced meals a day 5 servings fruit/vegetable per day Educated on home safety: Create a fall proof home Clear floors of clutter, loose wires, throw rugs, and cords. Make sure halls, stairways, and entrances are well lit. Install a nightlight in your bedroom, hallway and bathroom. Install grab bars or handrails in the bathroom and on stairs. Use a non-skid tub/shower mat. Avoid climbing on a chair; instead use a step stool with a high handrail. Keep sidewalks and steps in good repair Keep steps and sidewalks free of snow and ice. Using aids to support and prevent falls If you have poor balance or have fallen in the past, consider additional support such as a cane or walker. Use a cane with good support and that is the proper length for you. Use a walker if a cane doesnt provide enough support. Avoid medications that increase the risk of falling by causing dizziness, change in sensation or slowed reflexes. Certain medicines may cause falls - blood pressure pills, heart medicines, water pills, or sleepingpills. Be sure to understand each medicine that you are taking and any side effects that may occur. Improve your balance and flexibility with muscle strengthening exercises. Ask your health care provider for some exercises that will be right for you. Reinforced safety education and fall prevention. and Reinforced medication regimen. Timing., Dosing., and Purspose. Treatment/Plan: Continue meds as prescribed/reviewed Check blood sugars twice a day Fall precautions - use walker at all times Keep all appts and attend F/u with [facility] clinic CCD diet 2 Home Interventions Provided: Labs/Specimen Collection Performed CBC, HgbA1C, B12, Folic Acid Home Intervention: Other; evaluation Consulted PCP/Specialist Reinforced current Plan of Care, including self-management and medication regimen Patient's 'Red Flags': Blood sugar <70 or >300 Unable to walk Blurred vision Patient Needs to Remember: Call [facility] at with any new or worsening health concerns or problems, red flag symptoms. Referrals Needed: Other none Follow Up: Is there cellular connectivity/connectivity in the home? Yes Does the patient have internet in the home? Yes Patient encouraged to call the intake phone number for all urgent but not emergent issues. Is the patient new to [facility] within the last 30 days? No, Assess appropriateness for upcoming telehealth visits. Cancel telehealth visits & schedule home visit with care steam pressure chamber operator(s)as indicated. Provider is in agreement with Plan of Care: Yes Scheduled to follow up with patient in one month. Lucia Echevarria RN 05/04/2023 9:36 AM documented in this encounter Plan of Treatment Upcoming Encounters Date Type Department Care Team (Late st Contact Info) Description 05/06/2023 10:50 AM EST Office Visit Pharmacy, [place] [address] [place] [address] [facility] [address] [place] [address] 05/26/2023 8:30 AM EST Laboratory Lab Mobile Phlebotomy [facility] [address] [place] [address] [facility] Draw [address] [place] [address] 05/26/2023 1:00 PM EST Office Visit General Internal Medicine [facility] [place] [address] [place] [address] Liyah Oseguera MD [address] [place] [address] 05/31/2023 10:30 AM EST Nutrition Services [facility], [facility] [address] [facility] [place] [address] Nhi Shetty, RDN [address] [place] [address] 06/08/2023 11:00 AM EST [facility] Visit [facility], [facility] [address] [facility] [address] Lucia Echevarria RN [address] [place] [address] Health Maintenance Due Date Last Done Comments COVID-19 Vaccine (#1) 1960 Diabetic Eye Exam 1980 Cologuard 2007 Colonoscopy 2007 Colorectal Cancer Screening 2007 Fecal Occult Blood Test 2007 Sigmoidoscopy 2007 Zoster Vaccines (1 of 2) 2012 DISCUSS TOBACCO CESSATION (REFER TO SMARTSET #3291) 03/15/2019 03/15/2018 Depression Screening 06/16/2019 06/16/2018 Hepatitis B (1 of 3 - Risk 3-dose series) 2022 Albumin/Creatinine Ratio 05/10/2023 05/10/2022 HbA1c 08/25/2023 02/24/2023, 04/21, 03/15/2018 Diabetic Foot Exam 02/25/2024 02/24/2023 GFR 02/25/2024 02/24/2023, 04/21, 11/13/2018, Additional history exists DTaP,Tdap,and Td Vaccines (2 - Td or Tdap) 03/25/2027 03/25/2017 Lipid Panel 05/10/2027 05/10/2022, 10/10/2017 LUNG CANCER SCREENING - USE SMARTSET 86635 Completed 12/08/2017 Influenza Vaccine (FLU shot) Completed [...] Not on filedocumented as of this encounter Care Teams Pluck Trimmer Relationship Specialty Start Date End Date Liyah Oseguera MD [address] [place] [address] PCP - General Internal Medicine 03/25/17 documented as of this encounter
--- OUTSIDE RECORDS SUMMARY | 2023-06-02 11:12 | External Medical Summary ---
Author Name Unknown Address Unknown Organization [id number]:[facility] - [address] [facility] [place] [address] Laboratory Report Ordering Provider Test Date Status CARRI BOWMANALI 05/26/2023 10:41:00 Final Observation Date Value Abnormality Reference (Units ) Status Triglyceride 05/26/2023 10:41:00 106 <=174 ( mg/dL) Final Triglyceride Reference Range s (mg/dL):
<150 Acceptable
150-174 Borderline high
175-499 High
>=500 Very high Cholesterol 05/26/2023 10:41:00 183 <200 (mg /dL) Final Total Cholesterol Reference Ranges (mg/dL):
<200 Desirable
200-239 Borderline high
>=240 High HDL 05/26/2023 10:41:00 69 >39 (mg/dL ) Final HDL Cholesterol Reference Ra nges (mg/dL):
>=60 High (Desirable)
<50 Low (Undesirable) For Females
<40 Low (Undesirable) For Males NON-HDL CHOLESTEROL 05/26/2023 10:41:00 114 <=159 (mg/dL) Final Non-HDL Cholesterol Referenc e Range (mg/dL):
<100 Target level for high risk ASCVD patient
<130 Optimal for general population
130-159 Near optimal for general population
160-189 Borderline High
190-219 High
>=220 Very High LDL, (calculated) 05/26/2023 10:41:00 93 <= 129 (mg/dL) Final LDL Cholesterol Reference Ra nges (mg/dL):
<70 Target level for high risk ASCVD patient
<100 Optimal for general population
100-129 Near optimal for general population
130-159 Borderline high
160-189 High
>=190 Very high Performing Location [facility] - [address] [place], [place] [address]
--- OUTSIDE RECORDS SUMMARY | 2023-06-02 11:13 | External Medical Summary ---
Author Name Unknown Address Unknown Organization [id number]:[facility] [place] [address] Laboratory Report Ordering Provider Test Date Status KAILEE BOWMAN 05/04/2023 10:30:00 Final Observation Date Value Abnormality Reference (Units ) Status WBC, Total 05/04/2023 10:30:00 6.57 4.00-10.8 0 (K/uL) Final RBC 05/04/2023 10:30:00 4.18 4.50-5.25 (M/uL) Final Hemoglobin 05/04/2023 10:30:00 11.9 Below low normal 14 .0-16.8 (g/dL) Final HCT 05/04/2023 10:30:00 37.3 Below low normal 40. 0-48.4 (%) Final MCV 05/04/2023 10:30:00 89.2 82.0-99.5 (fL) Final MCH 05/04/2023 10:30:00 28.5 27.0-34.0 (pg) Final MCHC 05/04/2023 10:30:00 31.9 32.0-36.0 (g/dL) Final RDW 05/04/2023 10:30:00 13.1 11.5-15.5 (%) Final Platelets 05/04/2023 10:30:00 325 140-400 (K /uL) Final MPV 05/04/2023 10:30:00 8.8 6.6-11.1 ( fL) Final Performing Location [facility] [place] [address]
--- OUTSIDE RECORDS SUMMARY | 2023-06-02 11:13 | External Medical Summary | Summary of Care ---
Author Name Unknown Organization [facility] Address [address] [place] [address] Phone [phone] Care Team Providers Care Coal Yard Supervisor Name Role Phone Liyah Oseguera MD Primary Care Provider [phone] Encounter Details Date Type Department Care Team (Late st Contact Info) Description 04/20/2023 11:00 AM EDT Telemedicine [facility] [address] [place] [address] Maycol Chen PA-C [address] [place] [address] Gavi Apple, [facility] Computer Assembler [address] [place] [address] Uncontrolled type 2 diabetes mellitus with hyperglycemia (HCC)*; Mild episode of recurrent major depressive disorder (HCC); Other chronic pancreatitis (HCC); Alcohol abuse; HTN, goal below 140/90; Phantom limb syndrome with pain (HCC); Type 2 diabetes mellitus with hemoglobin A1c goal of less than 7.0% (HCC) Allergies No known active allergiesdocumented as of this encounter (statuses as of 04/20/2023) Medications Medication Sig Dispensed Refills Start Date End Date Status polyethylene glycol 3350 (MIRALAX) 255 gram powderIndications :Other constipation Take 17 g by mouth as needed for Constipation. Dissolve one heaping tablespoon in 8 ounces of water or juice. 1 Bottle 2 06/16/2018 Active Daily Elise Oral Tablet Take 1 Tab by mouth daily. 0 Active Carvedilol 3.125 MG Oral Tablet (Coreg) Take 1 Tablet by mouth 2 times a day with morning and evening meals. 0 Active DULoxetine HCl 20 MG Oral [...] the morning. 90 Tablet 3 02/25/2023 Active Optifoam 4"X4" Pad Apply to RT stump and change every 3-4 days 10 Each 2 02/25/2023 Active NovoLOG FlexPen 100 UNIT/ML Subcutaneous [...] TO CHECK BLOOD SUGARS CONTINUOUSLY 3 Each 03/14/2023 Active Dexcom G7 Refrigerating Engineer DeviceIndications :Type 2 diabetes mellitus with hemoglobin [...] 2 units and continue. 0 04/20/2023 Active Insulin Glargine Solostar 100 UNIT/ML Subcutaneous Solution Pen-injectorIndic ations:Type 2 diabetes mellitus with hemoglobin A1c goal of less than 7.0% (HCC) Inject 25 Units under the skin in the morning. If fasting sugar is > 125 for 3 days then increase by 2 units and continue. 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 0 to 44.9 in adult 11/08/2017 12/20/2017 Overview: Per Obesity protocol #1 documented as of this encounter (statuses as of 04/20/2023) Immunizations Name Administration Dates Next Due Pneumococcal Conjugate Vacci ne, 20-valent ([id number]) 02/24/2023 Pneumococcal Polysaccharide PPV23 (Pneumovax) 05/04/2015 SEASONAL [...] Answer Date Recorded PHQ-2 Score -1 04/26/2018 Sex and Gender Information Value Date Recorded Sex Assigned at Not on file Gender Identity Not on file Sexual Orientation Not on file Job Start Date Occupation Industry Not on file Not on file Not on file documented as of this encounter Last Filed Vital Signs Vital Sign Reading Time Taken Comments Blood Pressure 130/100 04/20/2023 10:58 AM EDT Pulse 96 04/20/2023 10:58 AM EDT Temperature 37.7 C (99.8 F) 04/20/2023 10:58 AM E DT Respiratory Rate - - Oxygen Saturation 99% 04/20/2023 10:58 AM EDT Inhaled Oxygen Concentration - - Weight - - Height - - Body Mass Index - - documented in this encounter Progress Notes * Maycol Chen PA-C - 04/20/2023 11:12 AM EDT [facility] Progress Note Date: 04/20/2023 Time: 1130 Patient location: HOME. I was not in a hospital or clinic location. After connecting through [employer], patient was verified with two unique identifiers. Patient (or authorized legal admissions representative) was then informed that this was a Telemedicine visit and being conducted confidentially over secure lines. Methods to assure confidentiality were taken. Patient acknowledged consent and understanding of privacy and security of the Telemedicine visit. The patient agreed to participate. Name: Umair Harrison : 1960 Purpose of Visit: follow up Location: Home Individual(s) present: Patient and CANDE Coordination of Care: Primary Care and MTM ASSESSMENT/PLAN: (E11.65) Uncontrolled type 2 diabetes mellitus with hyperglycemia (HCC) (primary encounter diagnosis) Plan: lantus recently decreased to 20 units daily Continues novolog 4 units with meals Follows with MTM and RDN Has dexcom CGM Most recent A1c significantly elevated at 17.2 (F33.0) Mild episode of recurrent major depressive disorder (HCC) Plan: mood stable on current dose of cymbalta (K86.1) Other chronic pancreatitis (HCC) (F10.10) Alcohol abuse Plan: encouraged complete alcohol avoidance (I10) HTN, goal below 140/90 Plan: BP Readings from Last 3 Encounters: 04/20/23 130/100 03/14/23 120/74 03/04/23 118/76 (G54.6) Phantom limb syndrome with pain (HCC) Plan: denies pain today SUBJECTIVE: Family present: no Patient is 62 year old male with uncontrolled DM type 2. Other comorbidities include depression, pancreatits, h/o alcohol abuse, HTN. H/o right BKA. 02/11-02/18 - [facility] - hyperosmolar hyperglycemic state, DM Patient reports living alone. Manages own medications. Reports compliance, although concerns in the past with previous admission for [facility]. States he feels well today. Did have blood glucose of 62 earlier and has improved to 92 at this time with juice and food. He recently had lantus decreased to 20 units. Continues to use novolog 4 units with meals. He is followed by MTM and RDN to assist with DM management Getting Meals on wheels. Has h/o right BKA following right leg fracture followed by infection. Continues to report that he smokes occasionally. Last used alcohol approx 3 weeks ago per his report. Pain: none Nausea: no Vomiting: no Confusion: no Somnolence: no Constipation: no Dyspnea: no Anxious: no Support: lives alone Med Management: self Ambulates: walker HISTORY: Social History Tobacco Use Smoking status: Every Day Packs/day: 0.50 Years: 40.00 Additional pack years: 0.00 Total pack years: 20.00 Types: Cigarettes Smokeless tobacco: Never Substance Use Topics Alcohol use: Yes Alcohol/week: 5.0 standard drinks of alcohol Types: 5 12 oz of beer per week Comment: Up until 11/2017, patient was drinking 1 pint- a fifth of Vodka and 12 +beers per day 62 year old year-old male with the following active problems: Patient Active Problem List Diagnosis Code Traumatic amputation of leg below knee, right, sequela ([facility]) S88.111S Mild episode of recurrent major depressive disorder ([facility]) F33.0 HTN, goal below 140/90 I10 BMI 27.0-27.9,adult Z68.27 Alcohol abuse F10.10 Recurrent acute pancreatitis K85.90 History of acute alcohol intoxication Z87.898 Hypokalemia E87.6 Phantom limb syndrome with pain ([facility]) G54.6 Type 2 diabetes mellitus with hemoglobin A1c goal of less than 7.0% ([facility]) E11.9 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 Dissolve one heaping tablespoon in 8 ounces of water or juice. 1 Bottle 2 Daily Elise Oral Tablet Take 1 Tab by mouth daily. Carvedilol 3.125 MG Oral Tablet (Coreg) Take 1 Tablet by mouth 2 times a day with morning and evening meals. DULoxetine HCl 20 MG Oral Capsule Delayed Release Particles (duloxetine) Take 1 Capsule (20 mg) by mouth in the morning. Do not cut, crush or chew. 30 Capsule 5 Insulin Glargine Solostar 100 UNIT/ML Subcutaneous Solution Pen-injector Inject 25 Units under the skin in the morning. If fasting sugar is > 125 for 3 days then increase by 2 units and continue. 3 Each 5 Potassium Chloride 20 MEQ Oral Packet Take 20 mEq by mouth in the morning. 90 Packet 3 Thiamine HCl 100 MG Oral Tablet (vitamin B-1) Take 1 Tablet by mouth in the morning. 90 Tablet 3 Magnesium Oxide -Mg Supplement 400 (240 Mg) MG Oral Tablet (Mag-Ox) Take 1 Tablet by mouth in the morning. In the morning.. 90 Tablet 3 Folic Acid 1 MG Oral Tablet Take 1 Tablet by mouth in the morning. 90 Tablet 3 Optifoam 4"X4" Pad Apply to RT stump and change every 3-4 days 10 Each 2 NovoLOG FlexPen 100 UNIT/ML Subcutaneous Solution Pen-injector (insulin aspart) Take 4 units beforenormal meals and 2 units with snack 3 mL 5 Novofine Pen Needle 32G X 6 MM (NOVOFINE 32G PEN NEEDLE) Use one needle per injection with flexpen 100 Each 3 OneTouch Verio In Vitro Strip (Glucose Blood) Use to check blood sugars 3 times daily. E 11.9 300 Strip 3 metFORMIN HCl ER 500 MG Oral Tablet Extended Release 24 Hour (Glucophage XR) Take 2 Tablets by mouth in the morning and 2 Tablets before bedtime. 360 Tablet 4 Dexcom G7 Sensor CHANGE EVERY 10 DAYS. USE TO CHECK BLOOD SUGARS CONTINUOUSLY 3 Each 11 Dexcom G7 Refrigerating Engineer Device USE TO CHECK BLOOD SUGARS CONTINOUSLY 1 Each 0 No current facility-administered medications for this visit. Physical Exam: BP Readings from Last 3 Encounters: 04/20/23 130/100 03/14/23 120/74 03/04/23 118/76 { Wt Readings from Last 3 Encounters: 02/24/23 73.4 kg (161 lb 14.4 oz) 05/10/22 80.3 kg (177 lb 1.6 oz) 06/16/18 101.6 kg (224 lb) Vital signs: Blood pressure 130/100, pulse 96, temperature 37.7 C (99.8 F), temperature source Infrared , SpO2 99%. General: alert and no distress Neuro: alert & oriented x 3 with fluent speech Heart: regular rate & rhythm and no murmur Lungs: no chest wall tenderness, lungs clear to auscultation Ext: right BKA Recent Results: Component Latest Ref Rng 02/24/2023 BUN 6 - 20 mg/dL 8 Creatinine 0.6 - 1.2 mg/dL 0.7 Estimated Glomerular Filtration Rate >=60 mL/min >90 Sodium 135 - 146 mmol/L 135 Potassium 3.5 - 5.1 mmol/L 4.2 Chloride 98 - 107 mmol/L 99 CO2 22 - 32 mmol/L 25 Anion Gap 7 - 15 mmol/L 11 Glucose 70 - 120 mg/dL 182 (H) Albumin 3.8 - 5.0 g/dL 3.9 AST 10 - 50 U/L 13 Alkaline Phosphatase 35 - 130 U/L 119 Bilirubin, Total <=1.2 mg/dL 0.2 Calcium 8.4 - 10.2 mg/dL 9.8 Protein 6.0 - 8.3 g/dL 6.6 ALT 10 - 50 U/L 13 WBC 4.00 - 10.80 K/uL 8.24 Neutrophils % 40.0 - 75.0 % 61.2 Lymphocytes % 18.0 - 42.0 % 27.3 Monocytes % 1.0 - 11.0 % 8.9 Eosinophils % 0.0 - 6.0 % 1.2 Basophils % 0.0 - 2.0 % 0.4 Immature Granulocytes % 0.0 - 2.0 % 1.0 Absolute Neutrophils 1.80 - 7.70 K/uL 5.05 Absolute Lymphocytes 1.00 - 4.80 K/ul 2.25 Absolute Monocytes 0.00 - 1.10 K/uL 0.73 Absolute Eosinophils 0.00 - 0.70 K/uL 0.10 Absolute Basophils 0.00 - 0.20 K/uL 0.03 Absolute Immature Granulocytes 0.00 - 0.20 K/uL 0.08 WBC 4.00 - 10.80 K/uL 8.24 RBC 4.50 - 5.25 M/uL 3.33 HGB 14.0 - 16.8 g/dL 9.6 (L) HCT 40.0 - 48.4 % 29.5 (L) MCV 82.0 - 99.5 fL 88.6 MCH 27.0 - 34.0 pg 28.8 MCHC 32.0 - 36.0 g/dL 32.5 RDW 11.5 - 15.5 % 15.1 PLT 140 - 400 K/uL 405 (H) MPV 6.6 - 11.1 fL 8.7 nRBCs <=0 /100 WBCs 0 Reticulocyte Percent 0.80 - 1.90 % 2.43 (H) Absolute Reticulocyte 31.3 - 100.1 K/uL 80.2 Immature Reticuloctye Fraction 2.5 - 20.6 % 33.3 (H) Reticulocyte Hemoglobin 29.7 - 37.4 pg 32.9 Hepatitis B Surface Antibody, Quantitative mIU/mL <3.5 Hepatitis B Surface Antibody, Qualitative Negative Hepatitis B Surface Antibody, Interpretation NOT immune to Hepatitis B Virus Iron 45 - 176 ug/dL 68 Iron Binding Capacity 250 - 425 ug/dL 250 Transferrin Saturation Percent 15 - 55 % 27 Hemoglobin A1C 4.0 - 5.6 % 17.2 (H) Estimated Average Glucose <126 mg/dL 447 (H) Ferritin 30 - 400 ng/mL 689 (H) Legend: (H) High (L) Low See top of note for assessment/plan Scheduled appointments in the next 60 days: Future Appointments-next 60 days Date/Time Provider Specialty Dept Phone 04/20/2023 11:45 AM Walter Álvarez [facility] [phone] 05/02/2023 12:30 PM Nhi Shetty RDN [facility] [phone] 05/04/2023 10:00 AM Lucia Echevarria RN [facility] [phone] 05/06/2023 10:50 AM [facility] [phone] 05/26/2023 8:30 AM [facility] Mobile Home Draw Laboratory Processing [phone] 05/26/2023 1:00 PM (Arrive by 12:45 PM) Liyah Oseguera MD Internal Medicine [phone] Maycol Chen PA-C [facility] [place], [address] [place] [address] * Gavi Apple, [facility] Computer Assembler - 04/20/2023 10:57 AM EDT [facility]er Telephone Visit Date: 04/20/2023 Time: 10:57 AM Name: Umair Harrison : 1960 Source of Information: Patient COVID-19 screening completed: Yes Vitals: Vital signs completed: Yes, vital signs within normal range. BP 130/100 (BP Site: Right Arm, BP Position: Sitting, BP Cuff Size: Regular) | Pulse 96 | Temp 37.7C (99.8 F) (Infrared ) | SpO2 99% Condition Changes: Changes in health or social status since last visit: Patient reports no new changes or concerns currently The patient has new concerns since last visit: No Progress towards goals since last visit: See above Medications: Medication review completed? Yes, no gaps identified Does the patient have barriers to medication adherence? No. Symptoms Surveys and Evaluations: Last flowsheet values for [facility]: Age 65+: 0 (03/03/2023 11:00 AM) Diagnosis (3 or more co-existing): 1 (04/20/2023 11:00 AM) Prior history of falls within 3 months: 0 (04/20/2023 11:00 AM) Incontinence: 0 (04/20/2023 11:00 AM) Visual impairment: 0 (04/20/2023 11:00 AM) Impaired functional mobility: 1 (04/20/2023 11:00 AM) Environmental hazards: 0 (04/20/2023 11:00 AM) Poly Pharmacy (4 or more prescriptions - any type): 1 (04/20/2023 11:00 AM) Pain affecting level of function: 0 (04/20/2023 11:00 AM) Cognitive impairment: 1 (04/20/2023 11:00 AM) Score - a score of 4 or more is considered at risk for fallin (03/03/2023 11:00 AM) Social Determinants of Health: Safety: Patient reports feeling unsafe in their home: No. Housing: Patient reports they are at risk of becoming homeless: No. Home/Living situation: Patient lives alone: Yes Bathroom is located one floor apartment Bedroom is located same floor Patient has to go up and down steps: No. Patient receives help from family/friends/neighbors/community agencies etc.: Yes. Type of help the patient receives: meals on wheels, centre [employer] transportation Patient perceives the help they receive as adequate: Yes. DME: DME used: [employer] Patient has concerns related to DME: No. Financial: Patient reports experiencing a financial hardship: No. Employment: Patient is unemployed or without regular income: No. Utilities: Patient reports difficulty paying heating, water, or electric bill: No. Transportation: Patient drives: No. Does anyone drive patient to appointments and shopping? Yes. Patient receives community or public transportation assistance: Yes. Specify agency: [employer] transportation Patient reports trouble getting a ride to medical visits or work: Never True. Clothing: Patient reports being unable to get clothing when it was really needed: No. Food insecurity: Patient has concerns surrounding meals/food: No. Within the past 12 months patient worried food would run out before having money to buy more: Sometimes True: Specify plan/referrals/care team members notified: Within the past 12 months the food patient bought did not last and did not have money to get more: Never True Food is needed for this week: No. Caregiver/Childcare: Patient feels overwhelmed with taking care of a child, family member or friend: No. If caregiver is present, patient reports adequate support: Yes. Connections: How often do you feel lonely or isolated from those around you? Never. Plan: Reinforced care plan established by care team Reinforced patient's three red flags by the care team No red flags were identified at this time Follow Up: Patient encouraged to call the intake phone number for all urgent but not emergent issues. Scheduled to follow up with patient as per scheduled. Gavi Apple [facility]er 04/20/2023 10:57 AM documented in this encounter Plan of Treatment Upcoming Encounters Date Type Department Care Team (Late st Contact Info) Description 05/02/2023 12:30 PM EST Nutrition Services [facility], [facility] [address] [facility] [place] [address] Nhi Shetty, RDN [address] [facility] [place] [address] 05/04/2023 10:00 AM EST Home Visit [facility] [address] [facility] [place] [address] Lucia Echevarria RN [address] [place] [address] 05/06/2023 10:50 AM EST Office Visit Pharmacy, [place] [address] [place] [address] [facility] [address] [place] [address] 05/26/2023 8:30 AM EST Laboratory Lab Mobile Phlebotomy [facility] [address] [place] [address] [facility] [place] Mobile Home Draw [address] [place] [address] 05/26/2023 1:00 PM EST Office Visit General Internal Medicine [facility] [place] [address] [place] [address] Liyah Oseguera MD [address] [place] [address] Health Maintenance Due Date Last Done Comments COVID-19 Vaccine (#1) 1960 Diabetic Eye Exam 1980 Cologuard 2007 Colonoscopy 2007 Colorectal Cancer Screening 2007 Fecal Occult Blood Test 2007 Sigmoidoscopy 2007 Zoster Vaccines (1 of 2) 2012 DISCUSS TOBACCO CESSATION (REFER TO SMARTSET #4233) 03/15/2019 03/15/2018 Depression Screening 06/16/2019 06/16/2018 Hepatitis B (1 of 3 - Risk 3-dose series) 2022 Albumin/Creatinine Ratio 05/10/2023 05/10/2022 HbA1c 08/25/2023 02/24/2023, 04/21, 03/15/2018 Diabetic Foot Exam 02/25/2024 02/24/2023 GFR 02/25/2024 02/24/2023, 04/21, 11/13/2018, Additional history exists DTaP,Tdap,and Td Vaccines (2 - Td or Tdap) 03/25/2027 03/25/2017 Lipid Panel 05/10/2027 05/10/2022, 10/10/2017 LUNG CANCER SCREENING - USE SMARTSET 18227 Completed 12/08/2017 Influenza Vaccine (FLU shot) Completed [...] Not on filedocumented as of this encounter Visit Diagnoses Diagnosis Uncontrolled type 2 diabetes mellitus with hyperglycemia (HCC)- Primary Mild episode of recurrent major depressive disorder (HCC) Other chronic pancreatitis (HCC) Alcohol abuse Alcohol abuse, unspecified HTN, goal below 140/90 Unspecified essential hypertension Phantom limb syndrome with pain (HCC) Phantom limb (syndrome) Type 2 diabetes mellitus with hemoglobin A1c goal of less than 7.0% (HCC) documented in this encounter Care Teams Coal Yard Supervisor Relationship Specialty Start Date End Date Liyah Oseguera MD [address] [place] [address] PCP - General Internal Medicine 03/25/17 documented as of this encounter
--- OUTSIDE RECORDS SUMMARY | 2023-06-02 11:13 | External Medical Summary ---
Author Name Unknown Address Unknown Organization [id number]:[facility] [address] [facility] [address] [facility] [address] Laboratory Report Ordering Provider Test Date Status KAILEE BOWMAN 05/04/2023 10:30:00 Final Observation Date Value Abnormality Reference (Units ) Status HbA1C 05/04/2023 10:30:00 6.5 Above high normal 4. 0-5.6 (%) Final The use of HbA1c to monitor glycemic status is based on normal hemoglobin and HbA composition. This test should not be used in patients with abnormal hemoglobin that affects the half life of the red blood cell or the in vivo glycation rates. Glucose, estimated average 05/04/2023 10:30:00 140 Above high normal <126 (mg/dL) Ilia reynaga Performing Location [facility] [address] [facility] [address]
--- OUTSIDE RECORDS SUMMARY | 2023-06-02 11:13 | External Medical Summary ---
Author Name Unknown Address Unknown Organization [id number]:[facility] [place] [address] [place] [address] Laboratory Report Ordering Provider Test Date Status KAILEE BOWMAN 05/04/2023 10:30:00 Final Observation Date Value Abnormality Reference (Units ) Status Folic Acid 05/04/2023 10:30:00 >20.0 >4.5 (ng/ mL) Final Performing Location LABORATORY [facility] - [address] [place] [address]
--- OUTSIDE RECORDS SUMMARY | 2023-06-02 11:13 | External Medical Summary | Summary of Care ---
Author Name Unknown Organization [facility] Address [address] [place] [address] Phone [phone] Care Team Providers Care Alliances Consultant Name Role Phone Gracie Oseguera MD Primary Care Provider [phone] Reason for Visit * Reason Onset Date Comments Medication Refill 05/04/2023 Encounter Details Date Type Department Care Team (Late st Contact Info) Description 05/04/2023 Refill [facility], [facility] [address] [facility] [facility] [address] Lucia Echevarria RN [address] [place] [address] HTN, goal below 140/90* Allergies No known active allergiesdocumented as of [...] 3 Each 11 03/14/2023 Active Dexcom G7 Geographical Historian DeviceIndications :Type 2 diabetes mellitus with hemoglobin [...] 04/20/2023 Active Carvedilol 3.125 MG Oral Tablet (Coreg)Indication s:HTN, goal below 140/90 Take 1 Tablet by mouth 2 times a day with morning and evening meals. 180 Tablet 3 05/04/2023 Active Carvedilol 3.125 MG Oral Tablet (Coreg) Take 1 Tablet by mouth 2 times a day with morning and evening meals. 0 3 Discontinue d(Refill) documented as of this encounter (statuses as of 05/04/2023) Active Problems Problem Noted Date Diagnosed Date Other chronic pancreatitis 04/20/2023 Type 2 diabetes mellitus wit h hemoglobin A1c goal of less than 7.0% 02/24/2023 Last Assessment & Plan: Insulin dependent Recent referral to [facility] for management Hemoglobin AIC Results: [...] 04/20/2023 Last Assessment & Plan: Managed via [facility] for wound care Acquired absence of right leg below knee 02/24/2023 03/03/2023 Hypokalemia 05/10/2022 04/20/2023 Alcohol dependence with with drawal, unspecified 03/15/2018 03/15/2018 Body mass index (BMI) of 40. 0 to 44.9 in adult 11/08/2017 12/20/2017 Overview: Per Obesity protocol #1 documented as of this encounter (statuses as of 05/04/2023) Immunizations Name Administration Dates Next Due Pneumococcal Conjugate Vacci ne, 20-valent ([id number]) 02/24/2023 Pneumococcal Polysaccharide PPV23 (Pneumovax) 05/04/2015 SEASONAL [...] on file documented as of this encounter Miscellaneous Notes * Telephone Encounter - Gracie Oseguera MD - 05/04/2023 10:20 AM ESTSigned Prescriptions: Disp Refills Carvedilol 3.125 MG Oral Tablet (Coreg) 180 Ta*3 Sig: Take 1 Tablet by mouth 2 times a day with morning and evening meals.Authorizing Provider: GRACIE OSEGUERA----- * Telephone Encounter - Gracie Oseguera MD - 05/04/2023 10:19 AM EST Done * Telephone Encounter - Lucia Echevarria RN - 05/04/2023 10:09 AM EST Pt in need of refill of Coreg [facility] contacted and they need a new script. Order pended for your review and signature. Thank you! documented in this encounter Plan of Treatment Upcoming Encounters Date Type Department Care Team (Late st Contact Info) Description 05/06/2023 10:50 AM EST Office Visit Pharmacy, [place] [address] [place] [address] [facility] [place] [address] 05/26/2023 8:30 AM EST Laboratory Lab Mobile Phlebot[facility] [address] [place] [address] [facility] Home Draw [address] [place] [address] 05/26/2023 1:00 PM EST Office Visit General Internal Medicine [facility] [place] [address] [place] [address] Gracie Oseguera MD [address] [place] [address] 05/31/2023 10:30 AM EST Nutrition Services [facility], [facility] [address] [place] [address] Nhi Shetty, RDN [address] [place] [address] 06/08/2023 11:00 AM EST Home Visit [facility], [place] [address] [place] [address] Lucia Echevarria RN [address] [place] [address] Health Maintenance Due Date Last Done Comments COVID-19 Vaccine (#1) 1962 Diabetic Eye Exam 1980 Cologuard 2007 Colonoscopy 2007 Colorectal Cancer Screening 2007 Fecal Occult Blood Test 2007 Sigmoidoscopy 2007 Zoster Vaccines (1 of 2) 2012 DISCUSS TOBACCO CESSATION (REFER TO SMARTSET #1323) 03/15/2019 03/15/2018 Depression Screening 06/16/2019 06/16/2018 Hepatitis B (1 of 3 - Risk 3-dose series) 2022 Albumin/Creatinine Ratio 05/10/2023 05/10/2022 HbA1c 08/25/2023 02/24/2023, 04/21, 03/15/2018 Diabetic Foot Exam 02/25/2024 02/24/2023 GFR 02/25/2024 02/24/2023, 04/21, 11/13/2018, Additional history exists DTaP,Tdap,and Td Vaccines (2 - Td or Tdap) 03/25/2027 03/25/2017 Lipid Panel 05/10/2027 05/10/2022, 10/10/2017 LUNG CANCER SCREENING - USE SMARTSET 73546 Completed 12/08/2017 Influenza Vaccine (FLU shot) Completed [...] as of this encounter Visit Diagnoses Diagnosis HTN, goal below 140/90- Primary Unspecified essential hypertension documented in this encounter Care Teams Alliances Consultant Relationship Specialty Start Date End Date Gracie Oseguera MD [address] [place] [address] PCP - General Internal Medicine 03/25/17 documented as of this encounter
--- OUTSIDE RECORDS SUMMARY | 2023-06-02 11:13 | External Medical Summary | Summary of Care ---
Author Name Unknown Organization [facility] Address [address] [place] [address] Phone [phone] Care Team Providers Care Senior Mobile Web Developer Name Role Phone Liyah Oseguera MD Primary Care Provider [phone] Reason for Visit * Reason Onset Date Comments [facility]: Maintenance 04/20/2023 Encounter Details Date Type Department Care Team (Late st Contact Info) Description 04/20/2023 11:45 AM EDT Scheduled Telephone [facility], [facility] [address] [facility] [place] [address] Coordinator, [facility] [address] [facility] [place] [address] Allergies No known active allergiesdocumented as of [...] 3 Each 11 03/14/2023 Active Dexcom G7 Patient Transition Specialist DeviceIndications :Type 2 diabetes mellitus with hemoglobin [...] & Plan: Insulin dependent Recent referral to [facility] for management Hemoglobin AIC Results: Lab Results [...] 04/20/2023 Last Assessment & Plan: Managed via [facility] for [facility] care Acquired absence of right leg below knee 02/24/2023 03/03/2023 Hypokalemia 05/10/2022 04/20/2023 Alcohol dependence with with drawal, unspecified 03/15/2018 03/15/2018 Body mass index (BMI) of 40. 0 to 44.9 in adult 11/08/2017 12/20/2017 Overview: Per Obesity protocol #1 documented as of this encounter (statuses as of 04/20/2023) Immunizations Name Administration Dates Next Due Pneumococcal Conjugate Vacci ne, 20-valent ([id number]) 02/24/2023 Pneumococcal Polysaccharide PPV23 (Pneumovax) 05/04/2015 SEASONAL [...] encounter Miscellaneous Notes * Telephone Encounter - Sole Simons RN - 04/20/2023 2:11 PM EDT FCC not needed today. The pt had telemed appt with [facility] today. Sole HAYWARD, RN [facility] Intake Triage Coordinator [phone] documented in this encounter Plan of Treatment Upcoming Encounters Date Type Department Care Team (Late st Contact Info) Description 05/02/2023 12:30 PM EST Nutrition Services [facility], [facility] [address] [facility] [place] [address] Nhi Shetty, ERICN [address] [facility] [place] [address] 05/04/2023 10:00 AM EST Home Visit [facility], [facility] [address] [place] [address] Lucia Echevarria, RN [address] [place] [address] 05/06/2023 10:50 AM EST Office Visit Pharmacy, [place] [address] [place] [address] [facility] [address] [place] [address] 05/26/2023 8:30 AM EST Laboratory Lab Mobile Phlebotomy [facility] [address] [place] [address] Gm, [facility] Mobile Home Draw [address] [place] [address] 05/26/2023 1:00 PM EST Office Visit General Internal [facility] [address] [place] [address] Liyah Oseguera MD [address] [place] [address] Health Maintenance Due Date Last Done Comments [...] 10/10/2017 LUNG CANCER SCREENING - USE SMARTSET [id number] Completed 12/08/2017 Influenza Vaccine (FLU shot) Completed [...] filedocumented as of this encounter Care Teams Senior Mobile Web Developer Relationship Specialty Start Date End Date Liyah Oseguera MD [address] [place] [address] PCP - General Internal Medicine 03/25/17 documented as of this encounter
--- OUTSIDE RECORDS SUMMARY | 2023-06-02 11:13 | External Medical Summary | Summary of Care ---
Author Name Unknown Organization [facility] Address [address] [place] [address] Phone [phone] Care Team Providers Care Supervisor Livestock Yard Name Role Phone Liyah Oseguera MD Primary Care Provider [phone] Reason for Visit * Reason Comments Medical Nutrition Therapy Encounter Details Date Type Department Care Team (Latest Contact Info) Description 05/02/2023 12:30 PM EST Nutrition Services [facility], [facility] [address] [place] [address] Nhi Shetty, RDN [address] [place] [address] Type 2 diabetes mellitus with hemoglobin A1c goal of less than 7.0% ([facility])* Allergies No known active allergiesdocumented as of this encounter (statuses as of 05/03/2023) Medications Medication Sig Dispensed Refills Start Date [...] CONTINUOUSLY 3 Each 03/14/2023 Active Dexcom G7 Military Source Operations Officer DeviceIndications:T ype 2 diabetes mellitus with hemoglobin A1c goal of less than 7.0% (HCC) USE TO CHECK BLOOD SUGARS CONTINOUSLY 1 Each 0 03/14/2023 Active Insulin Glargine Solostar 100 UNIT/ML Subcutaneous Solution Pen-injectorIndicat ions:Type 2 diabetes mellitus with hemoglobin A1c goal of less than 7.0% ([facility]) Inject 20 Units under the skin in the morning. If fasting sugar is > 125 for 3 days then increase by 2 units and continue. 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 0 to 44.9 in adult 11/08/2017 12/20/2017 Overview: Per Obesity protocol #1 documented as of this encounter (statuses as of 05/03/2023) Immunizations Name Administration Dates Next Due Pneumococcal Conjugate Vacci ne, 20-valent ([id number]) 02/24/2023 Pneumococcal Polysaccharide PPV23 (Pneumovax) 05/04/2015 SEASONAL [...] on file documented as of this encounter Progress Notes * Nhi Shetty RDN - 05/02/2023 2:03 PM EST NUTRITION FOLLOW-UP NOTE - OUTPATIENT [facility] Name: Umair Harrison Location: [facility], [facility] Date: 05/02/2023 Time: 2:03 PM Patient was identified by name and date. After connecting to the patient via telephone, the patient was identified by name and date of . Patient was then informed that this was a telephone call only visit. The patient agreed to participate. Visit Disposition: Routine follow-up Total call duration was 16 minutes. Reason for Nutrition Follow-up: Type 2 Diabetes NUTRITION ASSESSMENT: Client History Call placed to pt as follow-up. Known to RDN since 03/28/2023. Reason for Referral: Type 2 Diabetes A1c 17.2% (02/24/2023) See 04/19/2023 follow up phone call. Patient has decreased long acting insulin to 20 units. Continues with 4 units Novolog at meals (3 x daily). Reports lows are less frequent. Does have every few days usually before dinner. Reviewed PO diet. Recommending for higher quality protein at lunch and complex carbohydrates (100% whole wheat bread). Patient agrees. Reminded of future CM RN home visit and MTM appointment later this week. Patient Active Problem List Diagnosis Code Traumatic amputation of leg below knee, right, sequela ([facility]) S88.111S Mild episode of recurrent major depressive disorder ([facility]) F33.0 HTN, goal below 140/90 I10 BMI 27.0-27.9,adult Z68.27 Alcohol abuse F10.10 Recurrent acute pancreatitis K85.90 History of acute alcohol intoxication Z87.898 Phantom limb syndrome with pain ([facility]) G54.6 Type 2 diabetes mellitus with hemoglobin A1c goal of less than 7.0% ([facility]) E11.9 Other chronic pancreatitis ([facility]) K86.1 Past Surgical History: Procedure Laterality Date AMPUTATION OF LOWER LEG Right 2013 below the knee Support System: Self, Brother Adequate food in home. Brother continues to do grocery shopping. Barriers to Learning: None Special Education Needs: None Physical Activity: Did not review this date. Likely limited due to BKA Food/Nutrition-Related History 3 meals per day Breakfast: Cereal (cheerios original 2 cups) 2% milk; Sometimes eggs and toast (one) Lunch: salami and cheese (2 sandwich) 12:30 PM; sometimes grilled cheese (2) and tomato soup. Dinner: Chicken, string beans. Or Goulash or tuna sandwich. 5:30 PM Snack: green party mix (evening) Drinking OJ, apple juice, usually juice (4oz) in the morning, water. Denies ETOH intake Diet Recall/Food Logs Indicate: AREAS FOR IMPROVEMENT: Frequent snacking Inconsistent carbohydrate intake Inadequate fiber intake Inadequate fruit and vegetable intake Food and Nutrient Intake and other pertinent information: Meals on wheels Medications Changes/Updates: Insulin Glargine Solostar 100 UNIT/ML Subcutaneous Solution Pen-injector Inject 20 Units under the skin in the morning. If fasting sugar is > 125 for 3 days then increase by 2 units and continue. NovoLOG FlexPen 100 UNIT/ML Subcutaneous Solution Pen-injector (insulin aspart) Take 4 units beforenormal meals and 2 units with snack metFORMIN HCl ER 500 MG Oral Tablet Extended Release 24 Hour (Glucophage XR) Take 2 Tablets by mouth in the morning and 2 Tablets before bedtime. Nutrition-Focused Physical Findings Full nutrition focused physical exam not able to be conducted: Telephonic nutrition assessment. Anthropometric Measurements Current Weight: 175 lbs (79.5kg) ( Reports weight was checked 1 month ago) Wt Readings from Last 1 Encounters: 02/24/23 73.4 kg (161 lb 14.4 oz) Wt Readings from Last 4 Encounters: 02/24/23 73.4 kg (161 lb 14.4 oz) 05/10/22 80.3 kg (177 lb 1.6 oz) 06/16/18 101.6 kg (224 lb) 03/15/18 104.8 kg (231 lb) Weight Change: Per report of last known weight 8.3% weight gain x ~ 1 month BMI Readings from Last 1 Encounters: 02/24/23 24.54 kg/m IBW 64.7 kg (BMI range 21.7) Adjusted for BKA 60.9kg % AIBW = 131% AIBW (weight/ BKA) Biochemical Data, Medical Tests, and Procedures No current pertinent labs since last visit. SMBG with Dexcom Over the past 3 days had low of 64 mg/dL at 6 PM Happens every couple of days usually before dinner. Average 150 Highest 300 mg/dL - during the day. Hemoglobin AIC Results: Lab Results Component Value Date/Time HEMOGLOBIN A1C - [facility] 17.2 (H) 02/24/2023 03:17 PM HEMOGLOBIN A1C - [facility] 9.5 (H) 05/10/2022 12:00 PM HEMOGLOBIN A1C - [facility] 6.5 (H) 03/15/2018 11:31 AM Previous Nutrition Diagnosis: Food and nutrition-related knowledge deficit related to Lack of exposure to nutritional management of DM as evidenced by Reported diet and/or activity recall, New diagnosis, labs, patient interview Progress towards goals: ncrease intake of non-starchy vegetables. Vegetable at dinner. Take meal time insulin prior to meal (within 15 minutes) Reports taking 3 x daily. CURRENT NUTRITION DIAGNOSIS Same as previous NUTRITION INTERVENTION: FOOD AND/OR NUTRIENT DELIVERY Meals Snacks NUTRITION EDUCATION Initial/brief nutrition education NUTRITION COUNSELING Strategies Nutrition Prescription: Diet: Consistent Carbohydrate Heart Healthy Low Fat/Low Cholesterol Est. Nutritional Needs: Per AIBW (weight & BKA) = 65.6kg Daily Calorie Needs: 1640 - 1968 Kcals (25 - 30 kcals/kg/bw) Daily Protein Needs: 66 - 79 Grams protein (1 - 1.2g/kg.bw) Current Goals: Recommending for higher quality protein at lunch and complex carbohydrates (100% whole wheat bread). Dietitian Action: Verbal education on benefits of fiber/complex carbohydrates and relation ships of meal balance on BG management. Patient denies questions regarding treating low BG. Previously reviewed how to treat low BG. Recommendations to Ordering Provider: Continue current plan of nutrition care. NUTRITION MONITORING AND EVALUATION: The following will be monitored and evaluated at the next visit: Monitor weight. Monitor labs. Review food logs. Monitor goals and progress. Plan: Patient scheduled to return in 4-6 weeks ; dietitian phone # given for future reference. 15 minutes Medical Nutrition Therapy Time In: 1417 (05/02/23 1417) Time Out: 1433 (05/02/23 1433) 15 min (8-22 min) 30 min (23-37 min) 45 min (38-52 min) 60 min (53-67 min) 75 min (68-82 min) 90 min (83-97 min) 105 min (98-113 min) [facility] documented in this encounter Plan of Treatment Upcoming Encounters Date Type Department Care Team (Late st Contact Info) Description 05/04/2023 10:00 AM EST Home Visit [facility], [facility] [address] [place] [facility] [place] [address] Lucia Echevarria RN [address] [place] [address] 05/06/2023 10:50 AM EST Office Visit Pharmacy, [facility] [address] [place] [address] [facility] [address] [place] [address] 05/26/2023 8:30 AM EST Laboratory Lab Mobile Phlebotomy [facility] [place] [address] [place] [address] [facility] [place] [facility], [facility] Mobile Home Draw [address] [place] [address] 05/26/2023 1:00 PM EST Office Visit General Internal Medicine [facility] [address] [place] [address] Liyah Oseguera MD [address] [place] [address] 05/31/2023 10:30 AM EST Nutrition Services [facility], [facility] [address] [facility] [place] [address] Nhi Shetty RDN [address] [facility] [place] [address] Health Maintenance Due Date Last Done Comments [...] 10/10/2017 LUNG CANCER SCREENING - USE SMARTSET 210[address] Completed 12/08/2017 Influenza Vaccine (FLU shot) Completed [...] as of this encounter Visit Diagnoses Diagnosis Type 2 diabetes mellitus with hemoglobin A1c goal of less than 7.0% (HCC)- Primary documented in this encounter Care Teams Supervisor Livestock Yard Relationship Specialty Start Date End Date Liyah Oseguera MD [address] [place] [address] PCP - General Internal Medicine 03/25/17 documented as of this encounter
--- OUTSIDE RECORDS SUMMARY | 2023-06-02 11:13 | External Medical Summary | Summary of Care ---
Author Name Unknown Organization [facility] Address [address] [place] [address] Phone [phone] Care Team Providers Care Marine Engineer Name Role Phone Liyah Oseguera MD Primary Care Provider [phone] Encounter Details Date Type Department Care Team (Late st Contact Info) Description 02/22/2023 Population Health External Data Unspecified Department Allergies No known active allergiesdocumented as of this encounter (statuses as of 05/02/2023) Medications Medication Sig Dispensed Refills Start Date End Date Status polyethylene glycol 3350 (MIRALAX) 255 gram powderIndications:Ot her constipation Take 17 g by mouth as [...] 20 MG Oral Capsule Delayed Release Particles (duloxetine)Indicati ons:MAYELA (generalized anxiety disorder) Take 1 Capsule (20 mg) by mouth in the morning. Do not cut, crush or chew. 30 Capsule 5 05/10/2022 Active documented as of this encounter (statuses as of 05/02/2023) Active Problems Problem Noted Date Diagnosed Date Other chronic pancreatitis 04/20/2023 Type 2 diabetes mellitus wit h hemoglobin A1c goal of less than 7.0% 02/24/2023 Last Assessment & Plan: Insulin dependent Recent referral to [facility] for management Hemoglobin AIC Results: Lab Results Component Value Date/Time HEMOGLOBIN A1C - [facility] 17.2 (H) 02/24/2023 03:17 PM HEMOGLOBIN A1C [...] as of this encounter (statuses as of 05/02/2023) Resolved Problems Problem Noted Date Diagnosed Date Resolved Date Acute respiratory failure with hypoxia 03/03/2023 03/03/2023 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 0 to 44.9 in adult 11/08/2017 12/20/2017 Overview: Per Obesity protocol #1 documented as of this encounter (statuses as of 05/02/2023) Immunizations Name Administration Dates Next Due Pneumococcal Polysaccharide PPV23 (Pneumovax) SEASONAL INFLUENZA, PF, 6 M & Above, IM , (FLULAVAL or FLUZONE) 03/15/2018,03/25/2017 TDAP (age 10 and older)(Boostrix) 03/25/2017 documented [...] Description 05/04/2023 10:00 AM EST Home Visit [facility] [address] [place] [address] Lucia Echevarria RN [address] [facility] [place] [address] 05/06/2023 10:50 AM EST Office Visit Pharmacy, [place] [address] [place] [address] [facility] [address] [place] [address] 05/26/2023 8:30 AM EST Laboratory Lab Mobile Phlebotomy [facility] [place] [address] [place] [address] [facility] Mobile Home Draw [address] [place] [address] 05/26/2023 1:00 PM EST Office Visit General Internal Medicine [facility] [address] [place] [address] Liyah Oseguera MD [address] [place] [address] Health Maintenance Due Date Last Done Comments [...] 10/10/2017 LUNG CANCER SCREENING - USE SMARTSET 17127 Completed 12/08/2017 Influenza Vaccine (FLU shot) Completed [...] filedocumented as of this encounter Care Teams Marine Engineer Relationship Specialty Start Date End Date Liyah Oseguera MD [address] [place] [address] PCP - General Internal Medicine 03/25/17 documented as of this encounter
--- OUTSIDE RECORDS SUMMARY | 2023-06-02 11:13 | External Medical Summary ---
Author Name Unknown Address Unknown Organization K01:[facility] [address] [place] [address] Laboratory Report Ordering Provider Test Date Status KAILEE BOWMAN 05/04/2023 10:30:00 Final Observation Date Value Abnormality Reference (Units ) Status Vitamin B12 05/04/2023 10:30:00 [phone] (pg/mL) Final Performing Location [facility] - [address] [place] [address]
--- OUTSIDE RECORDS SUMMARY | 2023-06-02 11:14 | External Medical Summary | Summary of Care ---
Author Name Unknown Organization [facility] Address [address] [place] [address] Phone [phone] Care Team Providers Care Community Health Worker Name Role Phone Liyah Oseguera MD Primary Care Provider [phone] Reason for Visit * Reason Comments Medical Nutrition Therapy Encounter Details Date Type Department Care Team (Latest Contact Info) Description 04/19/2023 2:00 PM EDT Nutrition Services [facility] at Home, [facility] [address] [place] [address] Nhi Shetty, RDN [address] [place] [address] Type 2 diabetes mellitus with hemoglobin A1c goal of less than 7.0% ([facility])* Allergies No known active allergiesdocumented as of this encounter (statuses as of 04/19/2023) Medications Medication Sig Dispensed Refills Start Date [...] or chew. 30 Capsule 5 05/10/2022 Active Insulin Glargine Solostar 100 UNIT/ML Subcutaneous Solution Pen-injectorIndicat ions:Type 2 diabetes mellitus with hemoglobin A1c goal of less than 7.0% (HCC) Inject 25 Units under the skin in the morning. If fasting sugar is > 125 for 3 days then increase by 2 units and continue. 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 03/03/2023 Last Assessment & Plan: Managed via [facility] for wound care Type 2 diabetes mellitus wit h hemoglobin A1c goal of less than 7.0% 02/24/2023 Last Assessment & Plan: Insulin dependent Recent referral to [place] for management Hemoglobin AIC Results: Lab Results Component Value Date/Time HEMOGLOBIN A1C - [facility] 17.2 (H) 02/24/2023 03:17 PM HEMOGLOBIN A1C - [facility] 9.5 (H) 05/10/2022 12:00 PM HEMOGLOBIN A1C - [facility] 6.5 (H) 03/15/2018 11:31 AM Hypokalemia 05/10/2022 Phantom limb syndrome with pain 05/10/2022 Last [...] as of this encounter (statuses as of 04/19/2023) Resolved Problems Problem Noted Date Diagnosed Date Resolved Date Acute respiratory failure with hypoxia 03/03/2023 03/03/2023 Acquired absence of right leg below knee 02/24/2023 03/03/2023 Alcohol dependence with with drawal, unspecified 03/15/2018 03/15/2018 Body mass index (BMI) of 40. 0 to 44.9 in adult 11/08/2017 12/20/2017 Overview: Per Obesity protocol #1 documented as of this encounter (statuses as of 04/19/2023) Immunizations Name Administration Dates Next Due Pneumococcal Conjugate Vacci ne, 20-valent ([id number]) 02/24/2023 Pneumococcal Polysaccharide PPV23 (Pneumovax) 05/04/2015 SEASONAL [...] Progress Notes * Nhi Shetty RDN - 04/19/2023 1:38 PM EDT NUTRITION PROGRESS NOTE - [facility] Patient Phone Numbers: [phone] Mobile Call placed to pt as follow-up from initial nutrition assessment 03/28/2023. Reason for Referral: Type 2 Diabetes A1c 17.2% (02/24/2023) 1:48 PM phone call placed to patient. RDN asked patient recent BG. States had low BG earlier today,then states had low BG about 20 minutes ago. Denies self intervention/ rule of 15 being applied. Reports current BG 53 mg/dL (Dexcom). Patient verified BG with glucometer during phone call 52 mg/dL. Denies feeling shaky, sweaty, dizzy. Instructed patient to consume 4 oz of regular apple juice (1:58PM) and RDN will call again in 15 minutes. 2:11 PM Follow up phone call to patient. States "says 53" on Dexcom. Patient re- checked with glucometer: BG at 2:13 PM 68 mg/dL. Advised to apply rule of 15 again. Drink 4 oz of Apple juice. Recheck BG in 15 minutes. Yet to eat lunch today. Ate breakfast (cheerios) 1.5 bowl at 10 AM.(Thinks BG was 119 mg/dL) Took long acting insulin "23 units" this Morning, 4 units of novolog this AM at breakfast. Denies alcohol consumption today. Reports has not drank in a while. Advised once BG return to normal > 90 mg/dL to take meal time insulin as ordered and consume meal. Patient planning on eating 2sandwiches for lunch. Reinforced importance of regular meals and role of GAH. Encouraged to call again if experience hypoglycemia. Provider home visit at 11 AM tomorrow. Patient aware. Will request automobile leasing supervisor follow up phone call this afternoon and tomorrow AM. Previously provided information: plate method, how to treat high and low BG, Choose Your Foods: Foods Lists For Diabetes (2021), Carbohydrates In Alcohol. Patient thinks he received. No show 04/11/2023 MT; scheduled 05/06/2023. Patient is aware. DM medications: NovoLOG FlexPen 100 UNIT/ML Subcutaneous Solution Pen-injector (insulin aspart) Take 4 units beforenormal meals and 2 units with snack 4 units with breakfast this AM reported. Insulin Glargine Solostar 100 UNIT/ML Subcutaneous Solution Pen-injector Inject 25 Units under the skin in the morning. If fasting sugar is > 125 for 3 days then increase by 2 units and continue. 23 units of long acting this morning. metFORMIN HCl ER 500 MG Oral Tablet Extended Release 24 Hour (Glucophage XR) Take 2 Tablets by mouth in the morning and 2 Tablets before bedtime. Wt Readings from Last 3 Encounters: 02/24/23 73.4 kg (161 lb 14.4 oz) 05/10/22 80.3 kg (177 lb 1.6 oz) 06/16/18 101.6 kg (224 lb) Hemoglobin AIC Results: Lab Results Component Value Date/Time HEMOGLOBIN A1C - [facility] 17.2 (H) 02/24/2023 03:17 PM HEMOGLOBIN A1C - [facility] 9.5 (H) 05/10/2022 12:00 PM HEMOGLOBIN A1C - [facility] 6.5 (H) 03/15/2018 11:31 AM Previous Nutrition Goals: Increase intake of non-starchy vegetables. Patient reports he has been eating more corn and green beans. Re-education on non-starchy vegetables. Take meal time insulin prior to meal (within 15 minutes) Reinforced nutrition goals. Encouraged continued progress towards goals Follow up as scheduled. Encouraged pt to contact [facility] at [phone] for any non-emergent changes/concerns. JAMES Roberson, LEXIS, LDN Clinical Dietitian [facility] documented in this encounter Plan of Treatment Upcoming Encounters Date Type Department Care Team (Late st Contact Info) Description 04/20/2023 11:00 AM EDT Telemedicine [facility], [facility] [address] [place] [address] Maycol Chen PA-C [address] [facility] [place] [address] Gavi Apple, Community Health Smearer [address] [place] [address] 05/02/2023 12:30 PM EST Nutrition Services [facility], [facility] [address] [facility] [place] [address] Nhi Shetty RDN [address] [facility] [place] [address] 05/04/2023 10:00 AM EST Home Visit [facility], [facility] 132 [facility] [place] [address] Lucia Echevarria, RN [address] [place] [address] 05/06/2023 10:50 AM EST Office Visit Pharmacy, [place] [address] [place] [address] [facility] [address] [place] [address] 05/26/2023 8:30 AM EST Laboratory Lab Mobile Phlebotomy [facility] [address] [place] [address] [facility], [facility] Mobile Home Draw [address] [place] [address] 05/26/2023 1:00 PM EST Office Visit General Internal Medicine [facility] [address] [facility] [place] [address] Liyah Oseguera MD [address] [facility] [place] [address] Health Maintenance Due Date Last Done Comments [...] 10/10/2017 LUNG CANCER SCREENING - USE SMARTSET 66598 Completed 12/08/2017 Influenza Vaccine (FLU shot) Completed [...] Primary documented in this encounter Care Teams Community Health Worker Relationship Specialty Start Date End Date Liyah Oseguera MD [address] [facility] [place] [place] [address] PCP - General Internal Medicine 03/25/17 documented as of this encounter
--- OUTSIDE RECORDS SUMMARY | 2023-06-02 11:14 | External Medical Summary | Summary of Care ---
Author Name Unknown Organization [facility] Address [address] [place] [address] Phone [phone] Care Team Providers Care Content Editor Name Role Phone Liyah Oseguera MD Primary Care Provider [phone] Reason for Visit * Reason Onset Date Comments Blood Glucose Monitoring 04/19/2023 Encounter Details Date Type Department Care Team (Late st Contact Info) Description 04/19/2023 Telephone [facility], [facility] [address] [place] [address] Nhi Shetty, RDN [address] [place] [address] Blood Glucose Monitoring Allergies No known active allergiesdocumented as of [...] 3 Each 11 03/14/2023 Active Dexcom G7 Campaign Management Specialist DeviceIndications:T ype 2 diabetes mellitus with hemoglobin A1c goal of less than 7.0% (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 He repeated directions. Told him we will call him in the am to followup on his BS. Routed to care team Steph Earl. RN [facility] shoeshiner [phone] * Telephone Encounter - Tasneem Ramos RPh - 04/19/2023 2:47 PM EDT Thank you for looping me in- I have not seen him in clinic since his first visit with [facility], and at that time he was not wearing a CGM. This is not the first occurrence of hypoglycemia recently- I would recommend decreasing his long acting insulin to 20 units daily, or even further depending on assessment of provider tomorrow. To save numerous phone calls to patient, would offset press operator helper nurse be able to provide above message from [facility]? Thanks! Tasneem Ramos, PharmD Clinical Pharmacist Medication Therapy Disease Management 04/19/2023, 2:49 PM * Telephone Encounter - Nhi Shetty RDN - 04/19/2023 2:23 PM EDT NUTRITION PROGRESS NOTE - [facility] [employer] S/p phone call with patient. During phone call patient with BG of 53 (Dexcom), 52 glucometer (1:58 PM). Denied symptoms. RDN advised to apply rule of 15. Follow up phone call by LEXIS. BG rechecked 53 (Dexcom), 68 glucometer (2:13 PM). Advised to apply rule of 15 again (4 oz apple juice). Recheck BG.Patient yet to eat lunch. Advised upon BG returning to normal > 90 to taking meal time insulin as ordered and consume lunch. Provider home visit at 11 AM tomorrow. Patient aware. Will request lead game designer follow up phone call this afternoon and tomorrow AM. See progress note for more information. JAMES Roberson, RDN, LDN Clinical Dietitian [facility] documented in this encounter Plan of Treatment Upcoming Encounters Date Type Department Care Team (Late st Contact Info) Description 04/20/2023 11:00 AM EDT Telemedicine [facility], [facility] 132 [facility] [place] [address] Maycol Chen PA-C [address] [place] [address] aGvi Apple, Community Health Central Supply Nurse [address] [place] [address] 04/20/2023 11:45 AM EDT Scheduled Telephone [facility], [facility] 132 [facility] [place] [address] Coordinator, [facility] [place] [address] 05/02/2023 12:30 PM EST Nutrition Services [facility], [facility] [address] [facility] [place] [address] Nhi Shetty, RDN [address] [facility] [place] [address] 05/04/2023 10:00 AM EST Home Visit [facility], [facility] [address] [facility] [place] [address] Lucia Echevarria, RN 132 [facility] [place] [address] 05/06/2023 10:50 AM EST Office Visit Pharmacy, [place] [address] [place] [address] [facility] [address] [place] [address] 05/26/2023 8:30 AM EST Laboratory Lab Mobile Phlebotomy [facility] [address] [place] [address] [facility], [facility] Mobile Home Draw [address] [place] [address] 05/26/2023 1:00 PM EST Office Visit General Internal Medicine Armin [facility] [place] [address] [place] [address] Liyah Oseguera MD 200 [place] [address] Health Maintenance Due Date Last Done Comments COVID-19 Vaccine (#1) 1962 Diabetic Eye Exam 1980 Cologuard 2007 Colonoscopy 2007 Colorectal Cancer Screening 2007 Fecal Occult Blood Test 2007 Sigmoidoscopy 2007 Zoster Vaccines (1 of 2) 2012 DISCUSS TOBACCO CESSATION (REFER TO SMARTSET #6870) 03/15/2019 03/15/2018 Depression Screening 06/16/2019 06/16/2018 Hepatitis B (1 of 3 - Risk 3-dose series) 2022 Albumin/Creatinine Ratio 05/10/2023 05/10/2022 HbA1c 08/25/2023 02/24/2023, 04/21, 03/15/2018 Diabetic Foot Exam 02/25/2024 02/24/2023 GFR 02/25/2024 02/24/2023, 04/21, 11/13/2018, Additional history exists DTaP,Tdap,and Td Vaccines (2 - Td or Tdap) 03/25/2027 03/25/2017 Lipid Panel 05/10/2027 05/10/2022, 10/10/2017 LUNG CANCER SCREENING - USE SMARTSET [id number] Completed 12/08/2017 Influenza Vaccine (FLU shot) Completed [...] hemoglobin A1c goal of less than 7.0% ([facility])- Primary documented in this encounter Care Teams Content Editor Relationship Specialty Start Date End Date Liyah Oseguera MD [address] [place] [address] PCP - General Internal Medicine 03/25/17 documented as of this encounter
--- OUTSIDE RECORDS SUMMARY | 2023-06-02 11:14 | External Medical Summary | Summary of Care ---
Author Name Unknown Organization [facility] Address [address] [place] [address] Phone [phone] Care Team Providers Care Customer Relations Specialist Name Role Phone Liyah Oseguera MD Primary Care Provider [phone] Reason for Visit * Reason Onset Date Comments Blood Glucose Monitoring 04/19/2023 Encounter Details Date Type Department Care Team (Late st Contact Info) Description 04/19/2023 Telephone [facility], 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 During phone call patient with BG of 53 (Dexcom), 52 glucometer (1:58 PM). Denied symptoms. RDN advised to apply rule of 15. Follow up phone call by RDN. BG rechecked 53 (Dexcom), 68 glucometer (2:13 PM). Advised to apply rule of 15 again (4 oz apple juice). Recheck BG.Patient yet to eat lunch. Advised upon BG returning to normal > 90 to taking meal time insulin as ordered and consume lunch. Provider home visit at 11 AM tomorrow. Patient aware. Will request frame cleaner follow up phone call this afternoon and tomorrow AM. See progress note for more information. JAMES Roberson, RDN, LDN Clinical Dietitian [facility] documented in this encounter Plan of Treatment Upcoming Encounters Date Type Department Care Team (Late st Contact Info) Description 04/20/2023 11:00 AM EDT Telemedicine [facility], [facility] [address] [place] [address] Maycol Chen PA-C [address] [place] [address] Gavi Apple, Community Health Technologies Division Chair [address] [place] [address] 05/02/2023 12:30 PM EST Nutrition Services [facility], [facility] [address] [facility] [place] [address] Nhi Shetty RDN [address] [facility] [place] [address] 05/04/2023 10:00 AM EST Home Visit [facility], [facility] [address] [place] [address] Lucia Echevarria, RN [address] [place] [address] 05/06/2023 10:50 AM EST Office Visit Pharmacy, [place] [address] [place] [address] [facility] [address] [place] [address] 05/26/2023 8:30 AM EST Laboratory Lab Mobile Phlebotomy [facility] [address] [place] [address] [facility], [facility] Mobile Home Draw [address] [place] [address] 05/26/2023 1:00 PM EST Office Visit General Internal Medicine [facility] [address] [place] [address] Liyah Oseguera MD [address] [facility] [place] [address] Health Maintenance Due Date Last Done Comments COVID-19 Vaccine (#1) 1962 Diabetic Eye Exam 1980 Cologuard 2007 Colonoscopy 2007 Colorectal Cancer Screening 2007 Fecal Occult Blood Test 2007 Sigmoidoscopy 2007 Zoster Vaccines (1 of 2) 2012 DISCUSS TOBACCO CESSATION (REFER TO SMARTSET #5951) 03/15/2019 03/15/2018 Depression Screening 06/16/2019 06/16/2018 Hepatitis B (1 of 3 - Risk 3-dose series) 2022 Albumin/Creatinine Ratio 05/10/2023 05/10/2022 HbA1c 08/25/2023 02/24/2023, 04/21, 03/15/2018 Diabetic Foot Exam 02/25/2024 02/24/2023 GFR 02/25/2024 02/24/2023, 04/21, 11/13/2018, Additional history exists DTaP,Tdap,and Td Vaccines (2 - Td or Tdap) 03/25/2027 03/25/2017 Lipid Panel 05/10/2027 05/10/2022, 10/10/2017 LUNG CANCER SCREENING - USE SMARTSET 54544 Completed 12/08/2017 Influenza Vaccine (FLU shot) Completed [...] filedocumented as of this encounter Care Teams Customer Relations Specialist Relationship Specialty Start Date End Date Liyah Oseguera MD [address] [place] [address] PCP - General Internal Medicine 03/25/17 documented as of this encounter
--- OUTSIDE RECORDS SUMMARY | 2023-06-02 11:14 | External Medical Summary | Summary of Care ---
Author Name Unknown Organization [facility] Address [address] [place] [address] Phone [phone] Care Team Providers Care Pre School Manager Name Role Phone Liyah Oseguera MD Primary Care Provider [phone] Reason for Visit * Reason Onset Date Comments Blood Glucose Monitoring 04/19/2023 Encounter Details Date Type Department Care Team (Late st Contact Info) Description 04/19/2023 Telephone [facility], 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 This is not the first occurrence of hypoglycemia recently- I would recommend decreasing his long acting insulin to 20 units daily, or even further depending on assessment of provider tomorrow. To save numerous phone calls to patient, would computer systems engineer nurse be able to provide above message from [facility]? Thanks! Tasneem Ramos, PharmD Clinical Pharmacist Medication Therapy Disease Management 04/19/2023, 2:49 PM * Telephone Encounter - Nhi Shetty RDN - 04/19/2023 2:23 PM EDT NUTRITION PROGRESS NOTE - [facility] S/p phone call with patient. During phone [...] 11 AM tomorrow. Patient aware. Will request roofing tile sorter follow up phone call this afternoon and tomorrow AM. See progress note for more information. JAMES Roberson, LEXIS, LDN Clinical Dietitian [facility] documented in this encounter Plan of Treatment Upcoming Encounters Date Type Department Care Team (Late st Contact Info) Description 04/20/2023 11:00 AM EDT Telemedicine [facility], [facility] [place] [address] Maycol Chen PA-C [address] [place] [address] Gavi Apple, Community Health Bath Solution Maker [address] [place] [address] 05/02/2023 12:30 PM EST Nutrition Services [facility], [facility] [address] [facility] [place] [address] Nhi Shetty RDN [address] [facility] [place] [address] 05/04/2023 10:00 AM EST Home Visit [facility], [facility] [address] [facility] [place] [address] Lucia Echevarria, RN [address] [place] [address] 05/06/2023 10:50 AM EST Office Visit Pharmacy, [place] [address] [place] [address] [facility] [address] [place] [address] 05/26/2023 8:30 AM EST Laboratory Lab Mobile Phlebotomy [facility] [address] [place] [address] [facility], [facility] Mobile Home Draw [address] [place] [address] 05/26/2023 1:00 PM EST Office Visit General Internal Medicine [facility] [address] [facility] [address] Liyah Oseguera MD [address] [facility] [address] Health Maintenance Due Date Last Done Comments [...] 10/10/2017 LUNG CANCER SCREENING - USE SMARTSET [id number] Completed 12/08/2017 Influenza Vaccine (FLU shot) Completed [...] Primary documented in this encounter Care Teams Pre School Manager Relationship Specialty Start Date End Date Liyah Oseguera MD [address] [place] [address] PCP - General Internal Medicine 03/25/17 documented as of this encounter
--- OUTSIDE RECORDS SUMMARY | 2023-06-02 11:14 | External Medical Summary | Summary of Care ---
Author Name Unknown Organization [facility] Address [address] [place] [address] Phone [phone] Care Team Providers Care Seed Cleaning Machine Operator Name Role Phone Liyah Oseguera MD Primary Care Provider [phone] Reason for Visit * Reason Onset Date Comments Blood Glucose Monitoring 04/19/2023 Encounter Details Date Type Department Care Team (Late st Contact Info) Description 04/19/2023 Telephone [facility], [facility] [address] [place] [address] Nhi Shetty, RDN [address] [place] [address] Blood Glucose Monitoring Allergies No known active [...] 3 Each 11 03/14/2023 Active Dexcom G7 Casino [place] DeviceIndications:T ype 2 diabetes mellitus with hemoglobin A1c goal of less than 7.0% ([facility]) USE TO CHECK BLOOD SUGARS CONTINOUSLY 1 Each 0 03/14/2023 Active documented as of this encounter (statuses as of 04/19/2023) Active Problems Problem Noted Date Diagnosed Date 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 He repeated directions. Told him we will call him in the am to followup on his BS. Routed to care team Steph Earl. RN [facility] building estimator [phone] * Telephone Encounter - Tasneem Ramos [facility] - 04/19/2023 2:47 PM EDT Thank you [...] save numerous phone calls to patient, would airfield engineer officer nurse be able to provide above message from [place]? Thanks! Tasneem Ramos, PharmD Clinical Pharmacist Medication Therapy Disease Management 04/19/2023, 2:49 PM * Telephone Encounter - Nhi Shetty RDN - 04/19/2023 2:23 PM EDT NUTRITION PROGRESS NOTE - [facility] [employer] S/p phone call with patient. During phone [...] 11 AM tomorrow. Patient aware. Will request film flat inspector follow up phone call this afternoon and tomorrow AM. See progress note for more information. JAMES Rboerson, RDN, LDN Clinical Dietitian [facility] documented in this encounter Plan of Treatment Upcoming Encounters Date Type Department Care Team (Late st Contact Info) Description 04/20/2023 11:00 AM EDT [facility]icine [facility] [place], [facility] [address] [facility] [place] [address] Maycol Chen PA-C [address] [place] [address] Gavi Apple, Community Health Behavioral Consultant [address] [place] [address] 04/20/2023 11:45 AM EDT Scheduled Telephone [facility], [facility] [address] [place] [address] Coordinator, [facility] [address] [facility] [address] 05/02/2023 12:30 PM EST Nutrition Services [facility], [facility] [address] [facility] [place] [address] Nhi Shetty, RDN [address] [facility] [address] 05/04/2023 10:00 AM EST Home Visit [facility], [facility] [address] [place] [address] Lucia Echevarria, RN [address] [place] [address] 05/06/2023 10:50 AM EST Office Visit Pharmacy, [place] [address] [place] [address] [facility] [address] [place] [address] 05/26/2023 8:30 AM EST Laboratory Lab Mobile Phlebotomy [facility] [address] [place] [address] Gm, l Mobile Home Draw [address] [place] [address] 05/26/2023 1:00 PM EST Office Visit General Internal Medicine [facility] [place] [address] [place] [address] Liyah Oseguera MD 200 [facility] [place], [place] [address] Health Maintenance Due Date Last Done Comments COVID-19 Vaccine (#1) 1962 Diabetic Eye Exam 1980 Cologuard 2007 Colonoscopy 2007 Colorectal Cancer Screening 2007 Fecal Occult Blood Test 2007 Sigmoidoscopy 2007 Zoster Vaccines (1 of 2) 2012 DISCUSS TOBACCO CESSATION (REFER TO SMARTSET #6386) 03/15/2019 03/15/2018 Depression Screening 06/16/2019 06/16/2018 Hepatitis B (1 of 3 - Risk 3-dose series) 2022 Albumin/Creatinine Ratio 05/10/2023 05/10/2022 HbA1c 08/25/2023 02/24/2023, 04/21, 03/15/2018 Diabetic Foot Exam 02/25/2024 02/24/2023 GFR 02/25/2024 02/24/2023, 04/21, 11/13/2018, Additional history exists DTaP,Tdap,and Td Vaccines (2 - Td or Tdap) 03/25/2027 03/25/2017 Lipid Panel 05/10/2027 05/10/2022, 10/10/2017 LUNG CANCER SCREENING - USE SMARTSET [id number] Completed 12/08/2017 Influenza Vaccine (FLU shot) Completed [...] Primary documented in this encounter Care Teams Seed Cleaning Machine Operator Relationship Specialty Start Date End Date Liyah Oseguera MD [address] [facility] [place] [address] PCP - General Internal Medicine 03/25/17 documented as of this encounter
--- OUTSIDE RECORDS SUMMARY | 2023-06-02 11:15 | External Medical Summary | Summary of Care ---
Author Name Unknown Organization [facility] Address [address] [place] [address] Phone [phone] Care Team Providers Care Acute Specialist Name Role Phone Liyah Oseguera MD Primary Care Provider [phone] Reason for Visit * Reason Onset Date Comments FYI 03/23/2023 Encounter Details Date Type Department Care Team (Late st Contact Info) Description 03/23/2023 Telephone General Internal Medicine [facility] [address] [place] [address] Liyah Oseguera MD [address] [place] [address] FYI Allergies No known active allergiesdocumented as of this encounter (statuses as of 04/12/2023) Medications Medication Sig Dispensed Refills Start Date [...] CONTINUOUSLY 3 Each 03/14/2023 Active Dexcom G7 Senior Electrical Engineer DeviceIndications:T ype 2 diabetes mellitus with hemoglobin A1c goal of less than 7.0% ([facility]) USE TO CHECK BLOOD SUGARS CONTINOUSLY 1 Each 0 03/14/2023 Active documented as of this encounter (statuses as of 04/12/2023) Active Problems Problem Noted Date Diagnosed Date 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 03/03/2023 Last Assessment & Plan: Managed via [facility] for wound care Type 2 diabetes mellitus wit h hemoglobin A1c goal of less than 7.0% 02/24/2023 Last Assessment & Plan: Insulin dependent Recent referral to [facility] for management Hemoglobin AIC Results: Lab [...] as of this encounter (statuses as of 04/12/2023) Resolved Problems Problem Noted Date Diagnosed Date Resolved Date Acute respiratory failure with hypoxia 03/03/2023 03/03/2023 Acquired absence of right leg below knee 02/24/2023 03/03/2023 Alcohol dependence with with drawal, unspecified 03/15/2018 03/15/2018 Body mass index (BMI) of 40. 0 to 44.9 in adult 11/08/2017 12/20/2017 Overview: Per Obesity protocol #1 documented as of this encounter (statuses as of 04/12/2023) Immunizations Name Administration Dates Next Due Pneumococcal Conjugate Vacci ne, 20-valent ([id number]) 02/24/2023 Pneumococcal Polysaccharide PPV23 (Pneumovax) 05/04/2015 SEASONAL [...] Telephone Encounter - Tasneem Ramos RPh - 04/12/2023 3:43 PM EDT Routing to [facility] scheduling pool to try to reach out to schedule appointment. BG reading may have been an error on CGM if patient was not symptomatic with those low of readings. Tasneem Ramos, PharmD Clinical Pharmacist Medication Therapy Disease Management 04/12/2023, 3:43 PM * Telephone Encounter - Katerina Luong LPN - 04/12/2023 3:27 PM EDT Called and spoke with pt. Pt states he has been taking his novolog 4 units with meals - states these are bigger meals and not just a snack Did miss appt with MTM 04/11/23 * Telephone Encounter - Josey Diamond LPN - 04/06/2023 1:44 PM EDT Called [facility]-Left message on machine to return call to the office. * Telephone Encounter - Liyah Oseguera MD - 03/24/2023 12:51 PM EDT Please check when did that happen ? Has he been taking novolog right before meal and has he eaten anything that day due to not having food at home ? * Telephone Encounter - FLORA Jamison - 03/23/2023 10:06 AM EDT [facility]una is calling in regards to reporting that the pt had some low blood glucose levels 03/18/2023 the pt had a glucose of 42 that evening it was 31 and went up to 36 after eating an icepop.She advised that the pt told her he was feeling fine. She also advised that the pt did not have any food inthe home available and she reached out to a social work nurse for the pt to get him some additional resources. documented in this encounter Plan of Treatment Upcoming Encounters Date Type Department Care Team (Late st Contact Info) Description 04/19/2023 2:00 PM EDT Nutrition Services [facility], [facility] [address] [facility] [place] [address] Nhi Shetty RDN [address] [place] [address] 04/20/2023 1:30 PM EDT Telemedicine [facility], [facility] [address] [place] [address] Namita Zaldivar CRNP [address] [place] [address] Gavi Apple, Community Health Plant Engineering Manager [address] [place] [address] 05/03/2023 6:10 PM EST Pharmacy Pharmacy, [place] [address] [place] [address] [facility] [address] [place] [address] 05/04/2023 10:00 AM EST [facility] [address] [place] [address] Lucia Echevarria RN [address] [place] [address] 05/26/2023 8:30 AM EST Laboratory Lab Mobile Phlebotomy [facility] [address] [place] [address] [facility], [facility] Mobile Home Draw [address] [place] [address] 05/26/2023 1:00 PM EST Office Visit General Internal Medicine [facility] [place] [address] [place] [address] Liyah Oseguera MD 200 [facility] [place] [address] Health Maintenance Due Date Last Done Comments COVID-19 Vaccine (#1) 1960 DIABETES-EYE EXAM 1980 Cologuard 2007 Colonoscopy 2007 Colorectal Cancer [...] 10/10/2017 LUNG CANCER SCREENING - USE SMARTSET [id number] Completed 12/08/2017 Influenza Vaccine (FLU shot) Completed [...] Primary documented in this encounter Care Teams Acute Specialist Relationship Specialty Start Date End Date Liyah Oseguera MD [address] [place] [address] PCP - General Internal Medicine 03/25/17 documented as of this encounter
--- OUTSIDE RECORDS SUMMARY | 2023-06-02 11:15 | External Medical Summary | Summary of Care ---
Author Name Unknown Organization [facility] Address [address] [place] [address] Phone [phone] Care Team Providers Care Seat Trimmer Name Role Phone Liyah Oseguera MD Primary Care Provider [phone] Reason for Visit * Reason Onset Date Comments TRIAGE 03/29/2023 Encounter Details Date Type Department Care Team Description 03/29/2023 Telephone Pharmacy, [place] [address] [place], [place] [id number] [facility] [address] [place] [address] TRIAGE Allergies No known active allergiesdocumented as of this encounter (statuses as of 03/29/2023) Medications Medication Sig Dispensed Refills Start Date [...] 3 Each 11 03/14/2023 Active Dexcom G7 Informatics Pharmacist DeviceIndications:T ype 2 diabetes mellitus with hemoglobin A1c goal of less than 7.0% ([facility]) USE TO CHECK BLOOD SUGARS CONTINOUSLY 1 Each 0 03/14/2023 Active documented as of this encounter (statuses as of 03/29/2023) Active Problems Problem Noted Date 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 03/03/2023 Last Assessment & Plan: Managed via [facility] for wound care Type 2 diabetes mellitus with hemoglobin A1c goal of less than 7.0% 02/24/2023 Last Assessment & Plan: Insulin dependent Recent referral to [facility] for management Hemoglobin AIC Results: Lab Results Component Value Date/Time HEMOGLOBIN A1C - [facility] 17.2 (H) 02/24/2023 03:17 PM HEMOGLOBIN A1C - [facility] 9.5 (H) 05/10/2022 12:00 PM HEMOGLOBIN A1C - [facility] 6.5 (H) 03/15/2018 11:31 AM Hypokalemia 05/10/2022 Phantom limb syndrome with pain 05/10/20 Last Assessment & Plan: Previously on gabaoentin- no longer taking feels controlled without medication Recurrent acute pancreatitis 03/15/2018 History of acute alcohol intoxication Mild episode of recurrent major depressi ve disorder 10/10/2017 Last Assessment & Plan: Controlled with duloxetine HTN, goal below 140/90 10/10/2017 Last Assessment & Plan: Controlled with BB daily BP Readings from Last 4 Encounters: 02/25/23 114/62 02/24/23 126/80 05/10/22 122/72 06/16/18 122/76 BMI 27.0-27.9,adult 10/10/2017 Traumatic amputation of leg below knee, right, sequela Alcohol abuse documented as of this encounter (statuses as of 03/29/2023) Resolved Problems Problem Noted Date Resolved Date Acute respiratory failure with hypoxia 3 03/03/2023 Acquired absence of right leg below knee 023 03/03/2023 Alcohol dependence with withdrawal, unspecified 03/15/2018 03/15/2018 Body mass index (BMI) of 40.0 to 44.9 in adult 0 11/08/2017 12/20/2017 Overview: Per Obesity protocol #1 documented as of this encounter (statuses as of 03/29/2023) Immunizations Name Administration Dates Next Due Pneumococcal Conjugate Vacci ne, 20-valent ([id number]) 02/24/2023 Pneumococcal Polysaccharide PPV23 (Pneumovax) 05/04/2015 SEASONAL [...] of Vodka and 12 +beers per day Sex Assigned at Date Recorded Not on file Job Start Date Occupation Industry Not on file Not on file Not on file documented as of this encounter Miscellaneous Notes * Telephone Encounter - Deepa [place] RPh - 03/29/2023 3:16 PM EDT This patient's chart was reviewed by the [facility] clinical team. Yes documented in this encounter Plan of Treatment Upcoming Encounters Date Type Specialty Care Team Description 04/11/2023 Office Visit Pharmacy [facility] [address] [facility] [place] [address] 04/19/2023 Nutrition Services [facility] Nhi Shetty, RDN [address] [facility] [place] [address] 04/20/2023 Telemedicine [facility] Namita Zaldivar CRNP [address] [place] [address] Gavi Apple, Community Health Waste Machine Offbearer [address] [place] [address] 05/04/2023 Home Visit [facility] Lucia Echevarria, RN [address] [place] [address] 05/26/2023 Laboratory Laboratory [facility], [facility] Mobile Home Draw [address] [place] [address] 05/26/2023 Office Visit Internal Medicine Liyah Oseguera MD [address] [place] [address] Health Maintenance Due Date Last Done Comments COVID-19 Vaccine (#1) 1962 DIABETES-EYE EXAM 1980 Cologuard 2007 Colonoscopy 2007 Colorectal Cancer Screening 2007 Fecal Occult Blood Test 2007 Sigmoidoscopy 2007 Zoster Vaccines (1 of 2) 2012 DISCUSS TOBACCO CESSATION (REFER TO SMARTSET #4501) 03/15/2019 03/15/2018 Depression Screening 06/16/2019 06/16/2018 Albumin/Creatinine Ratio 05/10/2023 05/10/2022 HbA1c 08/25/2023 02/24/2023, 04/21, 03/15/2018 Diabetic Foot Exam 02/25/2024 02/24/2023 GFR 02/25/2024 02/24/2023, 04/21, 11/13/2018, Additional history exists DTaP,Tdap,and Td Vaccines (2 - Td or Tdap) 03/25/2027 03/25/2017 Lipid Panel 05/10/2027 05/10/2022, 10/10/2017 LUNG CANCER SCREENING - USE SMARTSET [id number] Completed 12/08/2017 Influenza Vaccine (FLU shot) Completed 12/2022, 03/15/2018, 03/25/2017 Pneumococcal Vaccine: Pediatrics (0 to 5 Years) and At-Risk Patients (6 to 64 Years) Completed 02/24/2023, 05/04/2015 GARDASIL-HPV IMMUNIZATION SERIES Aged Out No longer eligible based on patient's age to complete this topic Hepatitis B Aged Out No longer eligi ble based on patient's age to complete this topic MENINGOCOCCAL (MENACTRA/MENVEO) Aged Out No longer eligible based on patient's age to complete this topic documented as of this encounter Medical Devices Not on filedocumented as of this encounter Care Teams Seat Trimmer Relationship Specialty Start Date End Date Liyah Oseguera MD [address] [place] [address] PCP - General Internal Medicine 03/25/17 documented as of this encounter
--- OUTSIDE RECORDS SUMMARY | 2023-06-02 11:15 | External Medical Summary | Summary of Care ---
Author Name Unknown Organization [facility] Address [address] [place] [address] Phone [phone] Care Team Providers Care Podiatry Doctor Name Role Phone Liyah Oseguera MD Primary Care Provider [phone] Reason for Visit * Reason Onset Date Comments FYI 03/23/2023 Encounter Details Date Type Department Care Team (Late st Contact Info) Description 03/23/2023 Telephone General Internal Medicine [facility] [address] [place] [address] Liyah Oseguera MD 200 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 0 to 44.9 in adult 11/08/2017 12/20/2017 Overview: Per Obesity protocol #1 documented as of this encounter (statuses as of 04/13/2023) Immunizations Name Administration Dates Next Due Pneumococcal Conjugate Vacci ne, 20-valent ([id number]) 02/24/2023 Pneumococcal Polysaccharide PPV23 (Pneumovax) 05/04/2015 SEASONAL [...] encounter Miscellaneous Notes * Telephone Encounter - FLORA Mcgee - 04/13/2023 5:33 PM EDT Patient is scheduled for 05/06/23. * Telephone Encounter - Tasneem Ramos RPh - 04/12/2023 3:43 PM EDT Routing to [facility] scheduling pool to try to reach out to schedule appointment. BG reading may have been an error on CGM if patient was not symptomatic with those low of readings. Tasneem Ramos PharmD Clinical Pharmacist Medication Therapy Disease Management [...] available and she reached out to a nursing home social worker for the pt to get him some additional resources. documented in this encounter Plan of Treatment Upcoming Encounters Date Type Department Care Team (Late st Contact Info) Description 04/19/2023 2:00 PM EDT Nutrition Services [facility], [facility] [address] [facility] [place] [address] Nhi Shetty, RDN [address] [facility] [place] [address] 04/20/2023 1:30 PM EDT [facility]icine [facility] [place], [facility] [address] [place] [address] Namita Zaldivar CRNP [address] [place] [address] Gavi Apple, Community Health Supervisor [employer] [address] [place] [address] 05/04/2023 10:00 AM EST Home Visit [facility] [place], [facility] [address] [place] [address] Lucia Echevarria RN [address] [place] [address] 05/06/2023 10:50 AM EST Office Visit Pharmacy, [place] [address] [place] [address] [facility] [address] [place] [address] 05/26/2023 8:30 AM EST Laboratory Lab Mobile Phlebotomy [facility] [address] [place] [address] [facility], [facility] Mobile Home Draw [address] [place] [address] 05/26/2023 1:00 PM EST Office Visit General Internal Medicine [facility] [address] [place] [address] Liyah Oseguera MD 200 [facility] [place] [address] Health Maintenance Due Date Last Done Comments [...] 10/10/2017 LUNG CANCER SCREENING - USE SMARTSET 54334 Completed 12/08/2017 Influenza Vaccine (FLU shot) Completed [...] Primary documented in this encounter Care Teams Podiatry Doctor Relationship Specialty Start Date End Date Liyah Oseguera MD [address] [place] [address] PCP - General Internal Medicine 03/25/17 documented as of this encounter
--- OUTSIDE RECORDS SUMMARY | 2023-06-02 11:15 | External Medical Summary | Summary of Care ---
Author Name Unknown Organization [facility] Address [address] [place] [address] Phone [phone] Care Team Providers Care Loader Engineer Name Role Phone Liyah Oseguera MD Primary Care Provider [phone] Reason for Visit * Reason Onset Date Comments Blood Glucose Monitoring 04/19/2023 Encounter Details Date Type Department Care Team (Late st Contact Info) Description 04/19/2023 Telephone [facility], [facility] [address] [place] [address] Nhi Shetty, RDN [address] [place] [address] Blood Glucose Monitoring Allergies No known active [...] 3 Each 11 03/14/2023 Active Dexcom G7 Make Up Editor DeviceIndications:T ype 2 diabetes mellitus with hemoglobin A1c goal of less than 7.0% ([facility]) USE TO CHECK BLOOD SUGARS CONTINOUSLY 1 Each 0 03/14/2023 Active documented as of this encounter (statuses as of 04/19/2023) Active Problems Problem Noted Date Diagnosed Date 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 During phone [...] 11 AM tomorrow. Patient aware. Will request office spec follow up phone call this afternoon and tomorrow AM. See progress note for more information. JAMES Roberson, RDN, LDN Clinical Dietitian [facility] documented in this encounter Plan of Treatment Upcoming Encounters Date Type Department Care Team (Late st Contact Info) Description 04/20/2023 11:00 AM EDT Telemedicine [facility], [facility] [address] [place] [address] Maycol Chen PA-C [address] [place] [address] Gavi Apple, Community Health Irrigator [employer] [address] [place] [address] 05/02/2023 12:30 PM EST Nutrition Services [facility], [facility] [address] [facility] [place] [address] Nhi Shetty RDN [address] [facility] [place] [address] 05/04/2023 10:00 AM EST Home Visit [facility], [facility] [address] [place] [address] Lucia Echevarria, RN [address] [place] [address] 05/06/2023 10:50 AM EST Office Visit Pharmacy, [place] [address] [place] [address] [facility] [address] [place] [address] 05/26/2023 8:30 AM EST Laboratory Lab Mobile Phlebotomy [facility] [address] [place] [address] [facility] Mobile Home Draw [address] [place] [address] 05/26/2023 1:00 PM EST Office Visit General [facility] [address] [facility] [place] [address] Liyah Oseguera MD [address] [facility] [place] [address] Health Maintenance Due Date Last Done Comments COVID-19 Vaccine (#1) 1962 Diabetic Eye Exam 1980 Cologuard 2007 Colonoscopy 2007 Colorectal Cancer Screening 2007 Fecal Occult Blood Test 2007 Sigmoidoscopy 2007 Zoster Vaccines (1 of 2) 2012 DISCUSS TOBACCO CESSATION (REFER TO SMARTSET #1811) 03/15/2019 03/15/2018 Depression Screening 06/16/2019 06/16/2018 Hepatitis B (1 of 3 - Risk 3-dose series) 2022 Albumin/Creatinine Ratio 05/10/2023 05/10/2022 HbA1c 08/25/2023 02/24/2023, 04/21, 03/15/2018 Diabetic Foot Exam 02/25/2024 02/24/2023 GFR 02/25/2024 02/24/2023, 04/21, 11/13/2018, Additional history exists DTaP,Tdap,and Td Vaccines (2 - Td or Tdap) 03/25/2027 03/25/2017 Lipid Panel 05/10/2027 05/10/2022, 10/10/2017 LUNG CANCER SCREENING - USE SMARTSET [id number] Completed 12/08/2017 Influenza Vaccine (FLU shot) Completed [...] filedocumented as of this encounter Care Teams Loader Engineer Relationship Specialty Start Date End Date Liyah Oseguera MD [address] [place] [address] PCP - General Internal Medicine 03/25/17 documented as of this encounter
--- OUTSIDE RECORDS SUMMARY | 2023-06-02 11:15 | External Medical Summary | Summary of Care ---
Author Name Unknown Organization [facility] Address [address] [place] [address] Phone [phone] Care Team Providers Care Mc Kay Machine Operator Name Role Phone Liyah Oseguera MD Primary Care Provider [phone] Reason for Visit * Reason Comments Medical Nutrition Therapy Encounter Details Date Type Department Care Team Description 03/28/2023 Nutrition Services [facility], [facility] [address] [facility] [place] [address] Nhi Shetty, [place] [address] [place] [place] [address] Type 2 diabetes mellitus with hemoglobin A1c goal of less than 7.0% ([facility])* Allergies No known active allergiesdocumented as of this encounter (statuses as of 03/28/2023) Medications Medication Sig Dispensed Refills Start Date [...] 3 Each 11 03/14/2023 Active Dexcom G7 Sand Drier DeviceIndications:T ype 2 diabetes mellitus with hemoglobin A1c goal of less than 7.0% ([facility]) USE TO CHECK BLOOD SUGARS CONTINOUSLY 1 Each 0 03/14/2023 Active documented as of this encounter (statuses as of 03/28/2023) Active Problems Problem Noted Date 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 03/03/2023 Last Assessment & Plan: Managed via [facility] for wound care Type 2 diabetes mellitus with hemoglobin A1c goal of less than 7.0% 02/24/2023 Last Assessment & Plan: Insulin dependent Recent referral to [facility] for management Hemoglobin AIC Results: [...] as of this encounter (statuses as of 03/28/2023) Resolved Problems Problem Noted Date Resolved Date Acute respiratory failure with hypoxia 3 03/03/2023 Acquired absence of right leg below knee 023 03/03/2023 Alcohol dependence with withdrawal, unspecified 03/15/2018 03/15/2018 Body mass index (BMI) of 40.0 to 44.9 in adult 0 11/08/2017 12/20/2017 Overview: Per Obesity protocol #1 documented as of this encounter (statuses as of 03/28/2023) Immunizations Name Administration Dates Next Due Pneumococcal Conjugate Vacci ne, 20-valent ([id number]) 02/24/2023 Pneumococcal Polysaccharide PPV23 (Pneumovax) 05/04/2015 SEASONAL [...] of this encounter Progress Notes * Nhi Shetty, ERICN - 03/28/2023 10:35 AM EDT NUTRITION CONSULT - [facility] Name: Umair Harrison [facility] Date: 03/28/2023 Time: 10:35 AM Patient was identified by name and date. After connecting to the patient via telephone, the patient was identified by name and date of . Patient was then informed that this was a telephone call only visit. The patient agreed to participate. Visit Disposition: Routine follow-up Total call duration was 38 minutes. (Total, between 2 calls) Reason for Referral: Type 2 Diabetes NUTRITION ASSESSMENT: Client History Second attempt to contact patient this date. 62 year old male enrolled in [facility] referred to Registered Dietitian for Type 2 DM. PMH reviewed and noted below. Patient agreed to phone call this date. States "I just got it" regarding Dx of DM. EHR reviewed. 03/14/2023 MTM note reviewed notes "hospitalized at [facility] January 2023 with HHS and glucose level of 1,819 --> was not taking any diabetic medications at that time (was prescribed jardiance and metformin)" Recent concerns in EHR regarding food insecurity as well. 24 hour food recall reviewed. Areas of opportunity identified and discussed. Education and reinforcement provided. Pt centered goals established. See full nutrition assessment below. Patient reporting that he received food stamps this week "a couple hundred". brother goes several times a week to [place]. Patient currently reports adequate food in house. Last week did receive emergency food box. Asked if food insecurity happens often. Patient reports "first time". Attempted to discuss any changes that have occurred contributing to lack of food in the house last week. Patient states "depends on how you spend it". Adequate food in home at this time per patient's reports. [facility] has been referred to for food resources. Patient was contacted by [facility], but declined program. RDN will continue to follow and screen for changes in needs. 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 ([facility]) T87.89, L97.912 Past Surgical History: Procedure Laterality Date AMPUTATION OF LOWER LEG Right 2013 below the knee Support System: Self, Other, brother Barriers To Learning: None Special Education Needs: None Food/Nutrition-Related History Describes typical diet history/24 hr recall 2 - 3 meals per day Denies snacking Cooks for self Breakfast: Cereal (cheerios original 2 cups) 2% milk Snacks: Denies Lunch: salami and cheese (2 sandwich) Snacks: Denies Dinner: "couple burgers" on stove frozen ( 2 burgers, 2 buns) Salad with irish dressing Snacks: Denies Drinks: coffee (instant) with sugar sub with 2 % milk (3 cups), water ( 8 cups), Apple juice Throughout the day (large bottle last 3 days ~ 20 oz per day) Restaurant meals: rare Alcohol: Excessive, Beer and liquor. Reports 3 beers per day during the day between meals. Tobacco Use: Yes, smokes 5 per day Diet Recall/Food Logs Indicate: AREAS FOR IMPROVEMENT: Large portions High calorie, high fat and/or high sugar selections Excess intake of sweetened beverages Inadequate fiber intake Inadequate fruit and vegetable intake Significant caffeine intake Excessive alcohol intake Food and Nutrient Intake and other pertinent information: NA Food allergies and/or food intolerances: NKFA Pertinent Medications (Current): Current Outpatient Medications Medication Sig Dispense Refill [...] per injection with flexpen 100 Each 3 Agile TherapeuticsTouch Verio In Vitro Strip (Glucose Blood) Use [...] SUGARS CONTINUOUSLY 3 Each 11 Dexcom G7 Sand Drier Device USE TO CHECK BLOOD SUGARS CONTINOUSLY 1 Each 0 No current facility-administered medications for this visit. Per 03/14/2023 MT follow up : "INC Metformin 500 mg two tablets twice daily DEC Glargine 23 units daily (pens) (Takes in AM) Novolog 4 units with meals and 2 units with snacks (pens) eGFR > 90 as of 02/24/23" * reports doing after meals Injecting in stomach. Rotating site. Storing in refrigerator Supplements: Not reviewed this date. Prior Nutrition Counseling: Patient reports prior education Physical Activity: Limited due to amputation Anthropometric Measurements There were no vitals taken for this visit. Wt Readings from Last 5 Encounters: 02/24/23 73.4 kg (161 lb 14.4 oz) 05/10/22 80.3 kg (177 lb 1.6 oz) 06/16/18 101.6 kg (224 lb) 03/15/18 104.8 kg (231 lb) 01/09/18 106.7 kg (235 lb 3.2 oz) Usual Body Weight: 175 lbs Weight Change: 8.6% weight loss x 10 months ; Patient unsure of weight loss. No reported intentional changes. Interpretation of weight change: Unintentional weight loss suspect due to hyperglycemic state Weight Goal: Avoid unplanned weight changes. BMI: BMI Readings from Last 1 Encounters: 02/24/23 24.54 kg/m Nutrition-Focused Physical Findings Full nutrition focused physical exam not able to be conducted: Telephonic nutrition assessment. 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 Other pertinent physical findings: NA. Biochemical Data, Medical Tests, and Procedures Latest Reference Range & Units 02/24/23 15:17 Sodium 135 - 146 mmol/L 135 Potassium 3.5 - 5.1 mmol/L 4.2 Chloride 98 - 107 mmol/L 99 CO2 22 - 32 mmol/L 25 BUN 6 - 20 mg/dL 8 Creatinine 0.6 - 1.2 mg/dL 0.7 Estimated Glomerular Filtration Rate >=60 mL/min >90 Anion Gap 7 - 15 mmol/L 11 Glucose 70 - 120 mg/dL 182 (H) Calcium 8.4 - 10.2 mg/dL 9.8 Protein 6.0 - 8.3 g/dL 6.6 Estimated Average Glucose <126 mg/dL 447 (H) (H): Data is abnormally high Latest Reference Range & Units 05/10/22 12:00 Triglycerides <=174 mg/dL 244 (H) Cholesterol <200 mg/dL 207 (H) Non-HDL Cholesterol <=159 mg/dL 143 HDL Cholesterol >39 mg/dL 64 LDL Cholesterol (Direct Measure) <=129 mg/dL 101 (H): Data is abnormally high Hemoglobin AIC Results: Lab Results Component Value Date/Time HEMOGLOBIN A1C - [facility] 17.2 (H) 02/24/2023 03:17 PM HEMOGLOBIN A1C - [facility] 9.5 (H) 05/10/2022 12:00 PM HEMOGLOBIN A1C - [facility] 6.5 (H) 03/15/2018 11:31 AM Dexcom G7 in place Alerts to high and low Altering to high BG around 2 - 3 PM Denies BG > 300 BG < 80 "once or twice" over the past 2 weeks Reporting BG in ~ 30 mg/dL ~ 4 - 5 AM States "but I did not feel any different" NUTRITION DIAGNOSIS Food and nutrition-related knowledge deficit related to Lack of exposure to nutritional management of DM as evidenced by Reported diet and/or activity recall, New diagnosis, labs, patient interview NUTRITION INTERVENTION: FOOD AND/OR NUTRIENT DELIVERY Meals Snacks Nutrition related medication management NUTRITION EDUCATION Comprehensive nutrition education NUTRITION COUNSELING Strategies Diabetes Education: Via Mail plate method, how to treat high and low BG, Choose Your Foods: Foods Lists For Diabetes (202), Carbohydrates In Alcohol Nutrition Prescription: Diet: Consistent Carbohydrate Heart Healthy Low Fat/Low Cholesterol Est Nutritional Needs: Daily Calorie Needs: 1835 - 2202 Kcals (25 - 30 kcals/kg/bw) Daily Protein Needs: 73 - 88 Grams protein (1 - 1.2g/kg.bw) Goals: Increase intake of non-starchy vegetables. Take meal time insulin prior to meal (within 15 minutes) Dietitian Action: Reviewed sources of carbohydrates, impact on BG, Treatment of low BG, when to calibrate CGM and howto via DexShellcatch7 user guide (patient uses reader). Education on when to take meal time insulin and mechanism of action. Verbal education on risks with ETOH intake, moderation, if consuming to consumewith meal. Encouraged patient to monitor BG during stable times for large variation in CGM and finger stick. Consider calibrating with large variations. During time of rapid change of verification onhigh or low BG verify with finger stick. Dexcom calibration Clean hands: Wash your hands with soap and water and dry them. l Enter within 5 minutes: Enter the calibration within 5 minutes of taking a fingerstick. In the parviz, tap + in the Glucose or History tabs. In the doll maker, go to Menu >Event > Blood Glucose. Select Use as Calibration and follow onscreen instructions to enter the BG meter value as a calibration. Recommendations to Ordering Provider: Continue current plan of nutrition care. NUTRITION MONITORING AND EVALUATION: The following will be monitored and evaluated at the next visit: Monitor weight. Monitor labs. Review food logs. Monitor goals and progress. Skin Plan:Patient scheduled to return in 2-3 weeks; dietitian phone # given for future reference. 45 minutes Medical Nutrition Therapy 15 min (8-22 min) 30 min (23-37 min) 45 min (38-52 min) 60 min (53-67 min) 75 min (68-82 min) 90 min (83-97 min) 105 min (98-113 min) Time In: 1039 (03/28/23 1132) Time Out: 1130 (03/28/23 113) [facility] documented in this encounter Plan of Treatment Upcoming Encounters Date Type Specialty Care Team Description 04/11/2023 Office Visit Pharmacy [facility] [address] [place] [facility] [place] [address] 04/19/2023 Nutrition Services [facility] Nhi Shetty RDN [address] [facility] [place] [address] 04/20/2023 Telemedicine [facility] Namita Zaldivar CRNP [address] [place] [address] Gavi Apple, Community Health Small Machine Bindery Operator [address] [place] [address] 05/04/2023 Home Visit [facility] Lucia Echevarria RN [address] [place] [address] 05/26/2023 Laboratory Laboratory Processing [facility] Mobile Home Draw [address] [place] [address] 05/26/2023 Office Visit Internal Medicine Liyah Oseguera MD [address] [facility] [place] [address] Health Maintenance Due Date Last Done Comments COVID-19 Vaccine (#1) 1962 DIABETES-EYE EXAM 1980 Cologuard 2007 Colonoscopy 2007 Colorectal Cancer Screening 2007 Fecal Occult Blood Test 2007 Sigmoidoscopy 2007 Zoster Vaccines (1 of 2) 2012 DISCUSS TOBACCO CESSATION (REFER TO SMARTSET #3291) 03/15/2019 03/15/2018 Depression Screening 06/16/2019 06/16/2018 Albumin/Creatinine Ratio 05/10/2023 05/10/2022 HbA1c 08/25/2023 02/24/2023, 04/21, 03/15/2018 Diabetic Foot Exam 02/25/2024 02/24/2023 GFR 02/25/2024 02/24/2023, 04/21, 11/13/2018, Additional history exists DTaP,Tdap,and Td Vaccines (2 - Td or Tdap) 03/25/2027 03/25/2017 Lipid Panel 05/10/2027 05/10/2022, 10/10/2017 LUNG CANCER SCREENING - USE SMARTSET [id number] Completed 12/08/2017 Influenza Vaccine (FLU shot) Completed [...] Primary documented in this encounter Care Teams Mc Kay Machine Operator Relationship Specialty Start Date End Date Liyah Oseguera MD [address] [place] [address], [place] [address] PCP - General Internal Medicine 03/25/17 documented as of this encounter
--- OUTSIDE RECORDS SUMMARY | 2023-06-02 11:15 | External Medical Summary | Summary of Care ---
Author Name Unknown Organization [facility] Address [address] [place] [address] Phone [phone] Care Team Providers Care Photographic Printer Name Role Phone Liyah Oseguera MD Primary Care Provider [phone] Encounter Details Date Type Department Care Team Description 03/25/2023 Telephone Care Coordination [address] [place] [address] Noemi Nava OSA Allergies No known active allergiesdocumented as of this encounter (statuses as of 03/25/2023) Medications Medication Sig Dispensed Refills Start Date [...] goal of less than 7.0% ([facility]) Inject 25 Units under the skin in [...] 3 Each 11 03/14/2023 Active Dexcom G7 Criminal Research Specialist DeviceIndications:T ype 2 diabetes mellitus with hemoglobin A1c goal of less than 7.0% (HCC) USE TO CHECK BLOOD SUGARS CONTINOUSLY 1 Each 0 03/14/2023 Active documented as of this encounter (statuses as of 03/25/2023) Active Problems Problem Noted Date 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 03/03/2023 Last Assessment & Plan: Managed via [facility] for wound care Type 2 diabetes mellitus with hemoglobin A1c goal of less than 7.0% 02/24/2023 Last Assessment & Plan: Insulin dependent Recent referral to [facility] management Hemoglobin AIC Results: [...] as of this encounter (statuses as of 03/25/2023) Resolved Problems Problem Noted Date Resolved Date Acute respiratory failure with hypoxia 3 03/03/2023 Acquired absence of right leg below knee 023 03/03/2023 Alcohol dependence with withdrawal, unspecified 03/15/2018 03/15/2018 Body mass index (BMI) of 40.0 to 44.9 in adult 0 11/08/2017 12/20/2017 Overview: Per Obesity protocol #1 documented as of this encounter (statuses as of 03/25/2023) Immunizations Name Administration Dates Next Due Pneumococcal Conjugate Vacci ne, 20-valent ([id number]) 02/24/2023 Pneumococcal Polysaccharide PPV23 (Pneumovax) 05/04/2015 SEASONAL [...] Miscellaneous Notes * Telephone Encounter - FLORA Rivera - 03/25/2023 2:31 PM EDT Received call from pt who is requesting to speak with the CANDE who is supposed to assist him with copays in order to get his medications. Noted documentation in chart from Noemi HINES. Unable to contact Noemi via Teams or TT. Will route message to Noemi in [place]. [facility] NOTE: Pt was [facility] 03/15. [facility] called pt to discuss referral needs. Pt states his medicines at [facility] are $26. He states his medicines aren't covered. [facility] advised he talk to [facility] to see what is going on. [facility] transferred pt. documented in this encounter Plan of Treatment Upcoming Encounters Date Type Specialty Care Team Description 03/28/2023 Nutrition Services [facility] Nhi Shetty, [place] [address] [facility] [place] [address] 04/11/2023 Office Visit Pharmacy [facility] [address] [facility] [place] [address] 04/20/2023 Telemedicine [facility] Namita Zaldivar CRNP [address] [place] [address] Gavi Apple, Community Health Hr Administrator [address] [place] [address] 05/04/2023 Home Visit [facility] Lucia Echevarria RN [address] [place] [address] 05/26/2023 Laboratory Laboratory Processing [facility] Mobile Home Draw [address] [place] [address] 05/26/2023 Office Visit Internal Medicine Liyah Oseguera MD [address] [place] [address] Health Maintenance Due Date Last Done Comments [...] 10/10/2017 LUNG CANCER SCREENING - USE SMARTSET [id number] Completed 12/08/2017 Influenza Vaccine (FLU shot) Completed [...] filedocumented as of this encounter Care Teams Photographic Printer Relationship Specialty Start Date End Date Liyah Oseguera MD [address] [place] [address] PCP - General Internal Medicine 03/25/17 documented as of this encounter
--- OUTSIDE RECORDS SUMMARY | 2023-06-02 11:15 | External Medical Summary | Summary of Care ---
Author Name Unknown Organization [facility] Address [address] [place] [address] Phone [phone] Care Team Providers Care Drawing Instructor Name Role Phone Liyah Oseguera MD Primary Care Provider [phone] Reason for Visit * Reason Onset Date Comments Order Request 01/17/2023 Battery for Jazz y Select 6 Wheelchair Encounter Details Date Type Department Care Team (Late st Contact Info) Description 01/17/2023 Telephone General Internal Medicine [facility] [address] [place] [address] Liyah Oseguera MD [address] [place] [address] Order Request (Battery for Nazia Select 6 ... 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 03/03/2023 Last Assessment & Plan: Managed via [facility] for wound care Type 2 diabetes mellitus wit h hemoglobin A1c goal of less than 7.0% 02/24/2023 Last Assessment & Plan: Insulin dependent Recent referral to [facility] for management Hemoglobin AIC Results: [...] as of this encounter (statuses as of 04/18/2023) Resolved Problems Problem Noted Date Diagnosed Date Resolved Date Acute respiratory failure with hypoxia 03/03/2023 03/03/2023 Acquired absence of right leg below knee 02/24/2023 03/03/2023 Alcohol dependence with with drawal, unspecified 03/15/2018 03/15/2018 Body mass index (BMI) of 40. 0 to 44.9 in adult 11/08/2017 12/20/2017 Overview: Per Obesity protocol #1 documented as of this encounter (statuses as of 04/18/2023) Immunizations Name Administration Dates Next Due Pneumococcal [...] Telephone Encounter - Liyah Oseguera MD - 01/17/2023 4:20 PM EDT Done * Telephone Encounter - Leta Goodman OSA - 01/17/2023 9:22 AM EDT An order was requested for this patient. Name of Requesting Provider: Oumar Order Requested: Battery for Nazia Select 6 Wheelchair Diagnosis/Reason for Request: batter Does the order need to be faxed somewhere? If so, where?: [facility] Fax Number, if applicable: Call Back Number: [phone] If the caller is not a current patient, please advise the patient to call their current PCP to havethe order's prior to being seen in our office. The patient was informed that our providers would not order anything (medication, labs, etc.) prior to being seen. documented in this encounter Plan of Treatment Upcoming Encounters Date Type Department Care Team (Late st Contact Info) Description 04/19/2023 2:00 PM EDT Nutrition Services [facility], [facility] [address] [facility] [place] [address] Nhi Shetty, RDN [address] [facility] [address] 04/20/2023 1:30 PM EDT Telemedicine [facility], [facility] [address] [facility] [place] [address] Namita Zaldivar CRNP 132 [place] [address] Gavi Apple, Community Health Salt Washer [address] [place] [address] 05/04/2023 10:00 AM EST Home Visit [facility], [facility] [address] [facility] [place] [address] Lucia Echevarria, RN [address] [place] [address] 05/06/2023 10:50 AM EST Office Visit Pharmacy, [place] [address] [place] [address] [facility] [address] [place] [address] 05/26/2023 8:30 AM EST Laboratory Lab Mobile Phlebotomy [facility] [address] [place] [address] [facility] Mobile Home Draw [address] [place] [address] 05/26/2023 1:00 PM EST Office Visit General Internal Medicine Armin Wade [place] [address] [facility] [place], [place] [address] Liyah Oseguera MD 200 [facility] [place], [place] [address] Health Maintenance Due Date Last Done Comments COVID-19 Vaccine (#1) 1962 Diabetic Eye Exam 1980 Cologuard 2007 Colonoscopy 2007 Colorectal Cancer Screening 2007 Fecal Occult Blood Test 2007 Sigmoidoscopy 2007 Zoster Vaccines (1 of 2) 2012 DISCUSS TOBACCO CESSATION (REFER TO SMARTSET #4221) 03/15/2019 03/15/2018 Depression Screening 06/16/2019 06/16/2018 Hepatitis B (1 of 3 - Risk 3-dose series) 2022 Albumin/Creatinine Ratio 05/10/2023 05/10/2022 HbA1c 08/25/2023 02/24/2023, 04/21, 03/15/2018 Diabetic Foot Exam 02/25/2024 02/24/2023 GFR 02/25/2024 02/24/2023, 04/21, 11/13/2018, Additional history exists DTaP,Tdap,and Td Vaccines (2 - Td or Tdap) 03/25/2027 03/25/2017 Lipid Panel 05/10/2027 05/10/2022, 10/10/2017 LUNG CANCER SCREENING - USE SMARTSET 33539 Completed 12/08/2017 Influenza Vaccine (FLU shot) Completed [...] as of this encounter Visit Diagnoses Diagnosis Traumatic amputation of leg below knee, right, sequela (HCC)- Primary Phantom limb syndrome with pain (HCC) Phantom limb (syndrome) documented in this encounter Care Teams Drawing Instructor Relationship Specialty Start Date End Date Liyah Oseguera MD 200 [facility] [place] [address] PCP - General Internal Medicine 03/25/17 documented as of this encounter
--- OUTSIDE RECORDS SUMMARY | 2023-06-02 11:16 | External Medical Summary | Summary of Care ---
Author Name Unknown Organization [facility] Address [address] [place] [address] Phone [phone] Care Team Providers Care General Office Associate Name Role Phone Liyah Oseguera MD Primary Care Provider [phone] Reason for Visit * Reason Comments Medical Nutrition Therapy Encounter Details Date Type Department Care Team Description 03/22/2023 Nutrition Services [facility], [facility] [address] [facility] [place] [address] Nhi Shetty, [place] [address] [facility] [address] Type 2 diabetes mellitus with hemoglobin A1c goal of less than 7.0% ([facility])* Allergies No known active allergiesdocumented as of this encounter (statuses as of 03/22/2023) Medications Medication Sig Dispensed Refills Start Date [...] 3 Each 11 03/14/2023 Active Dexcom G7 Blocker Heated Metal Forms DeviceIndications:T ype 2 diabetes mellitus with hemoglobin A1c goal of less than 7.0% ([facility]) USE TO CHECK BLOOD SUGARS CONTINOUSLY 1 Each 0 03/14/2023 Active documented as of this encounter (statuses as of 03/22/2023) Active Problems Problem Noted Date 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 03/03/2023 Last Assessment & Plan: Managed via [facility] for wound care Type 2 diabetes mellitus with hemoglobin A1c goal of less than 7.0% 02/24/2023 Last Assessment & Plan: Insulin dependent Recent referral to [facility] for management Hemoglobin AIC Results: Lab [...] as of this encounter (statuses as of 03/22/2023) Resolved Problems Problem Noted Date Resolved Date Acute respiratory failure with hypoxia 3 03/03/2023 Acquired absence of right leg below knee 023 03/03/2023 Alcohol dependence with withdrawal, unspecified 03/15/2018 03/15/2018 Body mass index (BMI) of 40.0 to 44.9 in adult 0 11/08/2017 12/20/2017 Overview: Per Obesity protocol #1 documented as of this encounter (statuses as of 03/22/2023) Immunizations Name Administration Dates Next Due Pneumococcal Conjugate Vacci ne, 20-valent ([id number]) 02/24/2023 Pneumococcal Polysaccharide PPV23 (Pneumovax) 05/04/2015 SEASONAL [...] Progress Notes * Nhi Shetty, ERICN - 03/22/2023 9:29 AM EDT NUTRITION PROGRESS NOTE - [facility] TELE[facility] Call placed to patient today to assist with phone encounter regarding lack of food in home. Spoke with patient. Reports food insecurity does occur on regular basis. Receives food stamps "a couple hundred bucks". Will get next week. Patient unable himself to go to local food ghotra. Reporting there is one other individual who lives with him who is able to go to local food ghotra. Encouraged him to ask this individual to assist at this time. I will place a referral to [facility] for emergency food box, [facility] for local food resources and [employer] (patient aware and agrees to). Patient reports he is in contact with [facility] and is addressing needs. Declined referral to [facility] at this time. Patient is on BG lowering medication. Yet to check BG this AM. Asked if he has food to eat for breakfast such as toast and peanut butter or cereal. Patient responded "yeah". Encouraged him to check BG, take medication and eat breakfast. JAMES Roberson, ERICN, LDN Clinical Dietitian [facility] documented in this encounter Plan of Treatment Upcoming Encounters Date Type Specialty Care Team Description 03/28/2023 Nutrition Services [facility] Nhi Shetty RDN [address] [place] [facility] [place] [address] 04/11/2023 Office Visit Pharmacy [facility] [address] [place] [address] 04/20/2023 Telemedicine [facility] Namita Zaldivar CRNP [address] [place] [address] Gavi Apple, Community Health Grievance And Appeals Specialist [address] [place] [address] 05/04/2023 Home Visit [facility] Lucia Echevarria RN [address] [place] [address] 05/26/2023 Laboratory Laboratory Processing [facility], [facility] Mobile Home Draw [address] [place] [address] 05/26/2023 Office Visit Internal Medicine Liyah Oseguera MD [address] [place] [address] Health Maintenance Due Date Last Done Comments COVID-19 Vaccine (#1) 1962 DIABETES-EYE EXAM 1980 Cologuard 2007 Colonoscopy 2007 Colorectal Cancer Screening 2007 Fecal Occult Blood Test 2007 Sigmoidoscopy 2007 Zoster Vaccines (1 of 2) 2012 DISCUSS TOBACCO CESSATION (REFER TO SMARTSET #3291) 03/15/2019 03/15/2018 Depression Screening 06/16/2019 06/16/2018 Albumin/Creatinine Ratio 05/10/2023 05/10/2022 HbA1c 08/25/2023 02/24/2023, 112 06/2021, 03/15/2018 Diabetic Foot Exam 02/25/2024 02/24/2023 GFR 02/25/2024 02/24/2023, 04/21, 11/13/2018, Additional history exists DTaP,Tdap,and Td Vaccines (2 - Td or Tdap) 03/25/2027 03/25/2017 Lipid Panel 05/10/2027 05/10/2022, 10/10/2017 LUNG CANCER SCREENING - USE SMARTSET 92530 Completed 12/08/2017 Influenza Vaccine (FLU shot) Completed [...] Primary documented in this encounter Care Teams General Office Associate Relationship Specialty Start Date End Date Liyah Oseguera MD [address] [facility] [place] [address] PCP - General Internal Medicine 03/25/17 documented as of this encounter
--- OUTSIDE RECORDS SUMMARY | 2023-06-02 11:16 | External Medical Summary | Summary of Care ---
Author Name Unknown Organization [facility] Address [address] [place] [address] Phone [phone] Care Team Providers Care Census Taker Name Role Phone Liyah Oseguera MD Primary Care Provider [phone] Reason for Visit * Reason Onset Date Comments Medication Question 03/10/2023 Test strips. Encounter Details Date Type Department Care Team Description 03/10/2023 [facility] [address] Liyah Oseguera MD [address] [place], [place] [id number] Medication Question (Test strips. ) Allergies No known active allergiesdocumented as of this encounter (statuses as of 03/10/2023) Medications Medication Sig Dispensed Refills Start Date [...] or chew. 30 Capsule 5 05/10/2022 Active metFORMIN HCl 500 MG Oral Tablet (Glucophage)Indicati ons:Type 2 diabetes mellitus with hemoglobin A1c goal of less than 7.0% (HCC) Take 1 Tablet (500 mg) by mouth 2 times a day with morning and evening meals. 60 Tablet 5 05/12/2022 Active Insulin Glargine Solostar 100 UNIT/ML Subcutaneous Solution Pen-injectorIndicati ons:Type 2 diabetes mellitus with hemoglobin A1c goal of less than 7.0% (HCC) Inject 25 Units under the skin in the morning. If fasting sugar is > 125 for 3 days then increase by 2 units and continue. 3 Each 5 02/24/2023 Active Potassium Chloride 20 MEQ Oral PacketIndications:Hy pokalemia Take 20 mEq by mouth in the morning. 90 Packet 3 02/25/2023 Active Thiamine HCl 100 MG Oral Tablet (vitamin B-1)Indications:Alco hol abuse Take 1 Tablet by mouth in the morning. 90 Tablet 3 02/25/2023 Active Magnesium Oxide -Mg Supplement 400 (240 Mg) MG Oral Tablet (Mag-Ox)Indications: Hypokalemia Take 1 Tablet by mouth in the morning. In the morning.. 90 Tablet 3 02/25/2023 Active Folic Acid 1 MG Oral TabletIndications:Al cohol abuse Take 1 Tablet by mouth in [...] Active OneTouch Verio In Vitro Strip (Glucose Blood)Indications:Ty pe 2 diabetes mellitus with hemoglobin A1c goal of less than 7.0% (HCC) Use to check blood sugars 3 times daily. 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 03/03/2023 Last Assessment & Plan: Managed via [facility] for wound care Type 2 diabetes [...] as of this encounter (statuses as of 03/10/2023) Resolved Problems Problem Noted Date Resolved Date Acute respiratory failure with hypoxia 3 03/03/2023 Acquired absence of right leg below knee 023 03/03/2023 Alcohol dependence with withdrawal, unspecified 03/15/2018 03/15/2018 Body mass index (BMI) of 40.0 to 44.9 in adult 0 11/08/2017 12/20/2017 Overview: Per Obesity protocol #1 documented as of this encounter (statuses as of 03/10/2023) Immunizations Name Administration Dates Next Due Pneumococcal Conjugate Vacci ne, 20-valent ([id number]) 02/24/2023 Pneumococcal Polysaccharide PPV23 (Pneumovax) 05/04/2015 Seasonal Influenza, PF, 6 mo ns & Above, IM , (Flulaval) 02/24/2023,03/15/2018,03/25/2017 TDAP (age 10 and older)(Boostrix) 03/25/2017 [...] as of this encounter Miscellaneous Notes * Addendum Note - Omega Ramos RP - 03/10/2023 11:49 AM EDTAddended by: OMEGA RAMOS on: 03/10/2023 11:49 AM Modules accepted: Orders * Telephone Encounter - Omega Ramos RP - 03/10/2023 11:47 AM EDT Scripts sent. Follow up as scheduled. Will consider dexcom or CGM at visit. Omega Ramos PharmD Clinical Pharmacist Medication Therapy Disease Management 03/10/2023, 11:47 AM * Telephone Encounter - Deidre French, Pharmacy Gas Pumping Station Operator - 03/10/2023 11:37 AM EDT Unsure which test strips and meter pt uses. Called [facility] and was informed that he has OneTouch Verio. Will pend new script to test 3x daily to the pharmacy as pt runs out of test strips 03/11. Deidre French PharmD PGY1 Veneer Grader 03/10/2023 11:42 AM * Telephone Encounter - ARIEL Mancera - 03/10/2023 8:45 AM EDT Caller's name: Umair Sosa call back number(OFFICE NUMBER FOR ): [phone] Reason for call: Pt is asking for more test strips. Pt does have a New DM appt with [facility] on Wednesday 03/14. He stated he does not have enough test strips to last until then. Most likely will be out of test strips on 03/11. Please send scrip to [address] Thank you, Aimee Gonsalez Radio Time Buyer [facility] ([facility]) (Formerly Telepharmacy) 03/10/2023, 8:46 AM documented in this encounter Plan of Treatment Upcoming Encounters Date Type Specialty Care Team Description 03/14/2023 Office Visit Pharmacy [facility] [address] [place] [address] 03/14/2023 Home Visit [facility] Lucia Echevarria RN [address] [place] [address] 03/21/2023 Nutrition Services [facility] Nhi Shetty, RDN [address] [facility] [address] 04/20/2023 Telemedicine [facility] Namita Zaldivar CRNP [address] [place] [address] Gavi Apple, Community Health Logistics Planning Manager [address] [place] [address] 05/26/2023 Laboratory Laboratory Processing [facility], [facility] Mobile Home Draw [address] [place] [address] 05/26/2023 Office Visit Internal Medicine Liyah Oseguera MD [address] [place] [address] Health Maintenance Due Date Last Done Comments COVID-19 Vaccine (#1) 1960 DIABETES-EYE EXAM 1980 Cologuard 2007 Colonoscopy 2007 Colorectal Cancer Screening 2007 Fecal Occult Blood Test 2007 Sigmoidoscopy 2007 Zoster Vaccines (1 of 2) 2012 DISCUSS TOBACCO CESSATION (REFER TO SMARTSET #1820) 03/15/2019 03/15/2018 Depression Screening 06/16/2019 06/16/2018 Albumin/Creatinine Ratio 05/10/2023 05/10/2022 HbA1c 08/25/2023 02/24/2023, 04/21, 03/15/2018 Diabetic Foot Exam 02/25/2024 02/24/2023 GFR 02/25/2024 02/24/2023, 04/21, 11/13/2018, Additional history exists DTaP,Tdap,and Td Vaccines (2 - Td or Tdap) 03/25/2027 03/25/2017 Lipid Panel 05/10/2027 05/10/2022, 10/10/2017 LUNG CANCER SCREENING - USE SMARTSET 81963 Completed 12/08/2017 Influenza Vaccine (FLU shot) Completed [...] Primary documented in this encounter Care Teams Census Taker Relationship Specialty Start Date End Date Liyah Oseguera MD 200 [facility] [place] [address] PCP - General Internal Medicine 03/25/17 documented as of this encounter
--- OUTSIDE RECORDS SUMMARY | 2023-06-02 11:16 | External Medical Summary | Summary of Care ---
Author Name Unknown Organization [facility] Address [address] [place] [address] Phone [phone] Care Team Providers Care Extrusion Die Template Maker Name Role Phone Liyah Oseguera MD Primary Care Provider [phone] Reason for Visit * Reason Onset Date Comments Medication Question 03/10/2023 Test strips. Encounter Details Date Type Department Care Team Description 03/10/2023 [facility] [address] Liyah Oseguera MD [address] [place], [place] [id number] Medication Question (Test strips. 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 03/03/2023 Last Assessment & Plan: Managed via [facility] for wound care Type 2 diabetes mellitus with hemoglobin A1c goal of less than 7.0% 02/24/2023 Last Assessment & Plan: Insulin dependent Recent referral to [facility] for management Hemoglobin AIC Results: Lab Results [...] Next Due Pneumococcal Conjugate Vacci ne, 20-valent ([id number]) 02/24/2023 Pneumococcal Polysaccharide PPV23 (Pneumovax) 05/04/2015 Seasonal [...] encounter Miscellaneous Notes * Telephone Encounter - Deidre French Pharmacy Coordinate Measuring Machine Programmer - 03/10/2023 11:37 AM EDT Unsure which test strips and meter pt uses. Called [facility] and was informed that he has OneTouch Verio. Will pend new script to test 3x daily to the pharmacy as pt runs out of test strips 03/11. Deidre French PharmD PGY1 Curing Supervisor 03/10/2023 11:42 AM * Telephone Encounter - ARIEL Mancera - 03/10/2023 8:45 AM EDT Caller's name: Umair Ian call back number(OFFICE NUMBER FOR ): [phone] Reason for call: Pt is asking for more test strips. Pt does have a New DM appt with [facility] on Wednesday 03/14. He stated he does not have enough test strips to last until then. Most likely will be out of test strips on 03/11. Please send scrip to [facility] - [address] [place] [address] Thank you, Aimee Gonsalez Retail Stock Clerk [facility] ([facility]) (Formerly Telepharmacy) 03/10/2023, 8:46 AM documented in this encounter Plan of Treatment Upcoming Encounters Date Type Specialty Care Team Description 03/14/2023 Office Visit [facility]acy [facility] [address] [place] [address] 03/14/2023 Home Visit [facility] Lucia Echevarria RN [address] [place] [address] 03/21/2023 Nutrition Services [facility] Nhi Shetty, RDN [address] [facility] [place] [address] 04/20/2023 Telemedicine [facility] Namita Zaldivar CRNP [address] [place] [address] Gavi Apple, Community Health K [employer] Police Officer [address] [place] [address] 05/26/2023 Laboratory Laboratory Processing [facility], [facility] Mobile Home Draw [address] [place] [address] 05/26/2023 Office Visit Internal Medicine Liyah Oseguera MD [address] [place] [address] Health Maintenance Due Date Last Done Comments [...] 10/10/2017 LUNG CANCER SCREENING - USE SMARTSET 59142 Completed 12/08/2017 Influenza Vaccine (FLU shot) Completed [...] filedocumented as of this encounter Care Teams Extrusion Die Template Maker Relationship Specialty Start Date End Date Liyah Oseguera MD [address] [place] [address] PCP - General Internal Medicine 03/25/17 documented as of this encounter
--- OUTSIDE RECORDS SUMMARY | 2023-06-02 11:16 | External Medical Summary | Summary of Care ---
Author Name Unknown Organization [facility] Address [address] [place] [address] Phone [phone] Care Team Providers Care Social Media Executive Name Role Phone Liyah Oseguera MD Primary Care Provider [phone] Reason for Visit * Reason Comments [facility]: Maintenance Encounter Details Date Type Department Care Team Description 03/14/2023 [facility] Visit [facility] [place] [address] Lucia Echevarria RN [address] [place] [address] Advanced care planning/counseling discussion* Allergies No known active allergiesdocumented as of this encounter (statuses as of 03/14/2023) Medications Medication Sig Dispensed Refills Start Date [...] CONTINUOUSLY 3 Each 03/14/2023 Active Dexcom G7 Panel Lay Up Worker DeviceIndications:T ype 2 diabetes mellitus with hemoglobin A1c goal of less than 7.0% ([facility]) USE TO CHECK BLOOD SUGARS CONTINOUSLY 1 Each 0 03/14/2023 Active documented as of this encounter (statuses as of 03/14/2023) Active Problems Problem Noted Date 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 for wound care Type 2 diabetes mellitus with hemoglobin A1c goal of less than 7.0% 02/24/2023 Last Assessment & Plan: Insulin dependent Recent referral [facility] management Hemoglobin AIC Results: Lab Results [...] as of this encounter (statuses as of 03/14/2023) Resolved Problems Problem Noted Date Resolved Date Acute respiratory failure with hypoxia 3 03/03/2023 Acquired absence of right leg below knee 023 03/03/2023 Alcohol dependence with withdrawal, unspecified 03/15/2018 03/15/2018 Body mass index (BMI) of 40.0 to 44.9 in adult 0 11/08/2017 12/20/2017 Overview: Per Obesity protocol #1 documented as of this encounter (statuses as of 03/14/2023) Immunizations Name Administration Dates Next Due Pneumococcal Conjugate Vacci ne, 20-valent ([id number]) 02/24/2023 Pneumococcal Polysaccharide PPV23 (Pneumovax) 05/04/2015 Seasonal [...] Sign Reading Time Taken Comments Blood Pressure 120/74 03/14/2023 4:16 PM EDT Pulse 90 03/14/2023 4:16 PM EDT Temperature 36.3 C (97.4 F) 03/14/2023 4:16 PM ED T Respiratory Rate 18 03/14/2023 4:16 PM EDT Oxygen Saturation 98% 03/14/2023 4:16 PM EDT Inhaled Oxygen Concentration - - Weight - - Height - - Body Mass Index - - documented in this encounter Progress Notes * Lucia Echevarria RN - 03/14/2023 4:04 PM EDT [facility] Import/Export Agent Visit Date: 03/14/2023 Time: 4:04 PM Name: Umair Harrison : 1960 Current Concerns: Pt seen for return visit Saw [facility]TM today - Metformin increased to 1000mg BID Insulin Glargine decreased to 23 units daily Continue Novolog at 4 units with meals and 2 units with snacks Pt has been checking sugars twice a day Blood sugars have been ranging 90-311 Most have been in low to mid 100's BSG this am was 128 Ran out of test strips, pt reports Corey Alexis is going to deliver tomorrow Had home health nurse here just prior to visit and had wound dressing changed Pt denies any concerns at this time Vitals stable Physical Exam: BP 120/74 | Pulse 90 | Temp 36.3 C (97.4 F) | Resp 18 | SpO2 98% Pain 0 Physical Exam Constitutional: General: He is not in acute distress. Cardiovascular: Rate and Rhythm: Normal rate and regular rhythm. Pulses: Normal pulses. Heart sounds: Normal heart sounds. Pulmonary: Effort: Pulmonary effort is normal. Breath sounds: Normal breath sounds. Musculoskeletal: Comments: Right BKA Skin: General: Skin is warm and dry. Neurological: Mental Status: He is alert and oriented to person, place, and time. Problems/Symptoms: Review of Systems Constitutional: Negative. HENT: Negative. Eyes: Negative. Respiratory: Negative. Cardiovascular: Negative. Gastrointestinal: Negative. Endocrine: Negative. Musculoskeletal: Positive for gait problem. Skin: Positive for wound (on right BKA - dressing intact/dry). Psychiatric/Behavioral: Negative. Medication Reconciliation: (See medication list) Does patient take medications as ordered: Yes Patient Well Being: PHQ2/9: No questionnaires available. No change in living situation Denies falls MAH-10 Completed this Visit: No. Routine visit and No falls since last visit Advanced Care Planning: No documentation, ACP updated. Patient's Goals of Care: Stay in apartment [...] Keep all appts and attend F/u with [facility]TM clinic CCD diet CANDE referral submitted to help with financial resources Home Interventions Provided: Home Intervention: Other; Eval Reinforced current Plan of Care, including self-management and medication regimen Updated Advanced Care Planning Note Patient's 'Red Flags': Blood sugar <70 or >300 Unable to walk Blurred vision Patient Needs to Remember: Call [facility] at with any new or worsening health concerns or problems, red flag symptoms. Referrals Needed: Other none Follow Up: Is there cellular connectivity/connectivity in the home? Yes Does the patient have internet in the home? Yes Patient encouraged to call the intake phone number for all urgent but not emergent issues. Is the patient new to [facility] within the last 30 days? Yes, Is this a Transitions of Care visit? No Provider is in agreement with Plan of Care: Yes Scheduled to follow up with patient in 4 weeks with provider, 2 weeks after with LEX Dexter CHA to be scheduled in mean time. Lucia Echevarria RN 03/14/2023 4:04 PM documented in this encounter Miscellaneous Notes * ACP (Advance Care Planning) - Lucia Echevarria RN - 03/14/2023 4:24 PM EDT Images from the original note were not included. Patient-centered Communication 03/14/2023 The patient/surrogate voluntarily agreed to participate in advance care planning discussion. They were advised that this is a separate service which may incur out of pocket cost in the form of copayment and/or deductibles. Location: Home Individual(s) present for conversation: Patient Decisions Synopsis SmartLink Most Recent Value Past ~10 years 03/14/2023 16:19 Decisions CPR decision: Patient chooses CPR 03/14/2023 Patient chooses CPR Intubation/Mechanical Ventilation decision: Patient chooses Intubation/mechanical ventilation 03/14/2023 Patient chooses Intubation/mechanical ventilation Non-invasive ventilation or BIPAP decision: Patient chooses non-invasive ventilation. Select interventions below 03/14/2023 Patient chooses non-invasive ventilation. Select interventions below Non-Invasive Ventilation Interventions: Oxygen only;CPAP;BIPAP;NIV 03/14/2023 Oxygen only;CPAP;BIPAP;NIV Antibiotic therapy decision: Patient chooses Antibiotic therapy 03/14/2023 Patient chooses Antibiotic therapy Artificial nutrition decision: Patient chooses Artificial nutrition 03/14/2023 Patient chooses Artificial nutrition IV hydration decision: Patient chooses IV hydration 03/14/2023 Patient chooses IV hydration Chemotherapy decision: Undecided about Chemotherapy 03/14/2023 Undecided about Chemotherapy Radiation therapy decision: Undecided about Radiation therapy 03/14/2023 Undecided about Radiation therapy Surgical procedure(s) decision: Patient chooses Surgical procedure 03/14/2023 Patient chooses Surgical procedure Blood transfusion decision: Patient chooses Blood transfusion 03/14/2023 Patient chooses Blood transfusion Lab draw decision: Patient chooses Lab draws 03/14/2023 Patient chooses Lab draws Transport decision: Patient chooses Transport 03/14/2023 Patient chooses Transport Dialysis decision: Patient chooses Dialysis 03/14/2023 Patient chooses Dialysis Additional Comments Synopsis SmartLink Most Recent Value Past ~10 years 03/03/2023 11:52 Additional Comments Additional Comments: full code- has - has adult children- no AD/LW in place 03/03/2023 full code- has - has adult children- no AD/LW in place Discerning What Matters Most to the Patient: Synopsis SmartLink Most Recent Value Past ~10 years 03/14/2023 16:22 Discerning What Matters Most to the Patient In their own words, patient's UNDERSTANDING of their illness is: i guess my sugar got away from me 03/14/2023 i guess my sugar got away from me Their current SYMPTOMS include: Reduced overall well being 03/14/2023 Reduced overall well being They say their illness has CHANGED THEIR LIFE by: Financial strain/stress;Feel like a burden to family/loved ones 03/14/2023 Financial strain/stress;Feel like a burden to family/loved ones Was PROGNOSIS discussed? Yes 03/03/2023 Prognosis was discussed today as likely to live: Other, please comment if DM does not get under control patient will 03/03/2023 Progression of illness described as: Other, please comment depends on patient willingness to change eating habits and medication adhernce 03/03/2023 The patient's HOPES are: Maintain current functional abilities 03/03/2023 The patient defines LIVING WELL as: just being here every day 03/14/2023 just being here every day The patient's cultural or spiritual BELIEFS that may affect health care decisions: none 03/14/2023 none Source: Content from [employer] Program Aligning Care With What Matters Most: Synopsis SmartFeedback Most Recent Value Past ~10 years 03/14/2023 16:19 Aligning Care With What Matters Most Interventions/Choices: CPR;Intubation/mechanical ventilation;Non-invasive ventilation or BIPAP;Antibiotic therapy;Artificial nutrition;IV hydration;Chemotherapy;Radiation therapy;Surgical procedure;Blood transfusion;Lab draws;Transport;Dialysis 03/14/2023 CPR;Intubation/mechanical ventilation;Non-invasive ventilation or BIPAP;Antibiotic therapy;Artificial nutrition;IV hydration;Chemotherapy;Radiation therapy;Surgical procedure;Blood transfusi on;Lab draws;Transport;Dialysis Rationale for Decisions Source: Content from [employer]pecting Choices Program 20 minutes spent in direct [id number] discussion today, Lucia Echevarria, RN documented in this encounter Plan of Treatment Upcoming Encounters Date Type Specialty Care Team Description 03/21/2023 Nutrition Services [facility] Nhi Shetty, RDN [address] [place] [address] 04/11/2023 Office Visit [facility] [address] [place] [address] 04/20/2023 Telemedicine [facility] Namita Zaldivar CRNP [address] [place] [address] Gavi Apple, Community Health Machine Ii Cutter [address] [place] [address] 05/04/2023 Home Visit [facility] Lucia Echevarria RN [address] [place] [address] 05/26/2023 Laboratory Laboratory Processing [facility], [facility] Mobile Home Draw [address] [place] [address] 05/26/2023 Office Visit Internal Medicine Liyah Oseguera MD [address] [facility], [place] [id number] Health Maintenance Due Date Last Done Comments [...] 10/10/2017 LUNG CANCER SCREENING - USE SMARTSET 28144 Completed 12/08/2017 Influenza Vaccine (FLU shot) Completed [...] as of this encounter Visit Diagnoses Diagnosis Advanced care planning/counseling discussion- Primary Other specified counseling documented in this encounter Care Teams Social Media Executive Relationship Specialty Start Date End Date Liyah Oseguera MD [address] [place], [place] [address] PCP - General Internal Medicine 03/25/17 documented as of this encounter
--- OUTSIDE RECORDS SUMMARY | 2023-06-02 11:16 | External Medical Summary | Summary of Care ---
Author Name Unknown Organization [facility] Address [address] [place] [address] Phone [phone] Care Team Providers Care Aircraft Electronics Technical Officer Name Role Phone Liyah Oseguera MD Primary Care Provider [phone] Encounter Details Date Type Department Care Team Description 03/15/2023 Telephone Care Coordination [address] [place] [address] Noemi Nava OSA Allergies No known active allergiesdocumented as of this encounter (statuses as of 03/15/2023) Medications Medication Sig Dispensed Refills Start Date [...] hemoglobin A1c goal of less than 7.0% ([facility]) Inject 25 Units under the skin in [...] 3 Each 11 03/14/2023 Active Dexcom G7 Line Ordering Clinician DeviceIndications:T ype 2 diabetes mellitus with hemoglobin A1c goal of less than 7.0% ([facility]) USE TO CHECK BLOOD SUGARS CONTINOUSLY 1 Each 0 03/14/2023 Active documented as of this encounter (statuses as of 03/15/2023) Active Problems Problem Noted Date 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 03/03/2023 Last Assessment & Plan: Managed via [facility] for wound care Type 2 diabetes mellitus with hemoglobin A1c goal of less than 7.0% 02/24/2023 Last Assessment & Plan: Insulin dependent Recent referral to [facility] for management Hemoglobin AIC Results: Lab Results [...] as of this encounter (statuses as of 03/15/2023) Resolved Problems Problem Noted Date Resolved Date Acute respiratory failure with hypoxia 3 03/03/2023 Acquired absence of right leg below knee 023 03/03/2023 Alcohol dependence with withdrawal, unspecified 03/15/2018 03/15/2018 Body mass index (BMI) of 40.0 to 44.9 in adult 0 11/08/2017 12/20/2017 Overview: Per Obesity protocol #1 documented as of this encounter (statuses as of 03/15/2023) Immunizations Name Administration Dates Next Due Pneumococcal Conjugate Vacci ne, 20-valent ([id number]) 02/24/2023 Pneumococcal Polysaccharide PPV23 (Pneumovax) 05/04/2015 Seasonal [...] * Telephone Encounter - FLORA Rivera - 03/15/2023 8:15 AM EDT MOLD CARRIER NOTE: UTC, 3 phone rings and hangs up. MOLD CARRIER closing task due to 3 [employer]. documented in this encounter Plan of Treatment Upcoming Encounters Date Type Specialty Care Team Description 03/21/2023 Nutrition Services [facility] Nhi Shetty, RDN [address] [facility] [place] [address] 04/11/2023 Office Visit Pharmacy [facility] [address] [place] [address] 04/20/2023 Telemedicine [facility] Namita Zaldivar CRNP [address] [facility] [place] [address] Gavi Apple, Community Health Telegraph Mechanic [address] [place] [address] 05/04/2023 Home Visit [facility] Lucia Echevarria, RN [address] [place] [address] 05/26/2023 Laboratory Laboratory Processing [facility] Mobile Home Draw [address] [place] [address] 05/26/2023 Office Visit Internal Medicine Liyah Oseguera MD [address] [facility] [place] [address] Health Maintenance Due Date Last Done Comments COVID-19 Vaccine (#1) 1960 DIABETES-EYE EXAM 1980 Cologuard 2007 Colonoscopy 2007 Colorectal Cancer Screening 2007 Fecal Occult Blood Test 2007 Sigmoidoscopy 2007 Zoster Vaccines (1 of 2) 2012 DISCUSS TOBACCO CESSATION (REFER TO SMARTSET #3117) 03/15/2019 03/15/2018 Depression Screening 06/16/2019 06/16/2018 Albumin/Creatinine Ratio 05/10/2023 05/10/2022 HbA1c 08/25/2023 02/24/2023, 04/21, 03/15/2018 Diabetic Foot Exam 02/25/2024 02/24/2023 GFR 02/25/2024 02/24/2023, 04/21, 11/13/2018, Additional history exists DTaP,Tdap,and Td Vaccines (2 - Td or Tdap) 03/25/2027 03/25/2017 Lipid Panel 05/10/2027 05/10/2022, 10/10/2017 LUNG CANCER SCREENING - USE SMARTSET [id number] Completed 12/08/2017 Influenza Vaccine (FLU shot) Completed [...] filedocumented as of this encounter Care Teams Aircraft Electronics Technical Officer Relationship Specialty Start Date End Date Liyah Oseguera MD [address] [facility] [place] [address] PCP - General Internal Medicine 03/25/17 documented as of this encounter
--- OUTSIDE RECORDS SUMMARY | 2023-06-02 11:16 | External Medical Summary | Summary of Care ---
Author Name Unknown Organization [facility] Address [address] [facility] [place] [address] Phone [phone] Care Team Providers Care Abrasive Mixer Name Role Phone Liyah Oseguera MD Primary Care Provider Reason for Visit * Reason Onset Date Comments [facility]: Maintenance 03/22/2023 Encounter Details Date Type Department Care Team Description 03/22/2023 Telephone [facility], [facility] [address] [facility] [place] [address] [facility], Nurse [address] [place] [address] [facility]: Maintenance Allergies No known active allergiesdocumented as of [...] 3 Each 11 03/14/2023 Active Dexcom G7 Nuclear Medicine Pet Ct Technologist DeviceIndications:T ype 2 diabetes mellitus with hemoglobin A1c goal of less than 7.0% (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 03/03/2023 Last Assessment & Plan: Managed via [facility] for wound care Type 2 diabetes mellitus with hemoglobin A1c goal of less than 7.0% 02/24/2023 Last Assessment & Plan: Insulin dependent Recent referral to [facility] for management Hemoglobin AIC [...] Next Due Pneumococcal Conjugate Vacci ne, 20-valent ([id number]) 02/24/2023 Pneumococcal Polysaccharide PPV23 (Pneumovax) 05/04/2015 SEASONAL [...] Telephone Encounter - Sole Simons RN - 03/22/2023 8:39 AM EDT Received call from Muna- nurse with [facility] who is calling to notify [facility] that when shecalled the pt to schedule her HV appt he requested that she bring him food to eat. He told her he has no food. Muna will order SW for pt. If [facility] SW is not able to see the pt within the next few days, Muna will call to notify [facility]. Notified Muna that the [facility] clay miner did call the pt yesterday but the pt told her it was not agood time to talk so the appt was rescheduled. Notified Muna that this nursing administrator will notify the clay miner and the pt's [facility] care team of the above situation. Sole HAYWARD, RN [facility] Intake Triage Coordinator [phone] documented in this encounter Plan of Treatment Upcoming Encounters Date Type Specialty Care Team Description 03/28/2023 Nutrition Services [facility] Nhi Shetty, RDN [address] [facility] [place] [address] 04/11/2023 Office Visit [facility] [address] [place] [address] 04/20/2023 Telemedicine [facility] Namita Zaldivar CRNP [address] [place] [address] Gavi Apple, Community Health Senior Sharepoint Architect [address] [place] [address] 05/04/2023 Home Visit [facility] Lucia Echevarria RN [address] [place] [address] 05/26/2023 Laboratory Laboratory Processing [facility], [facility] Mobile Home Draw [address] [place] [address] 05/26/2023 Office Visit Internal Medicine Liyah Oseguera MD [address] [place] [address] Health Maintenance Due Date Last Done Comments [...] 10/10/2017 LUNG CANCER SCREENING - USE SMARTSET [id number] Completed 12/08/2017 Influenza Vaccine (FLU shot) Completed [...] filedocumented as of this encounter Care Teams Abrasive Mixer Relationship Specialty Start Date End Date Liyah Oseguera MD [address] [place] [address] PCP - General Internal Medicine 03/25/17 documented as of this encounter
--- OUTSIDE RECORDS SUMMARY | 2023-06-02 11:16 | External Medical Summary | Summary of Care ---
Author Name Unknown Organization [facility] Address [address] [place] [address] Phone [phone] Care Team Providers Care Director Content Marketing Name Role Phone Liyah Oseguera MD Primary Care Provider [phone] Reason for Visit * Reason Comments Medical Nutrition Therapy Encounter Details Date Type Department Care Team Description 03/22/2023 Nutrition Services [facility], [facility] [address] [facility] [place] [address] Nhi Shetty, [place] [address] [facility] [address] Type 2 diabetes mellitus with hemoglobin A1c goal of less than 7.0% ([facility])* Allergies No known active allergiesdocumented as of [...] 3 Each 11 03/14/2023 Active Dexcom G7 Law Firm Consultant DeviceIndications:T ype 2 diabetes mellitus with hemoglobin A1c goal of less than 7.0% ([facility]) USE TO CHECK BLOOD SUGARS CONTINOUSLY 1 Each 0 03/14/2023 Active documented as of this encounter (statuses as of 03/22/2023) Active Problems Problem Noted Date 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 03/03/2023 Last Assessment & Plan: Managed via [facility] for wound care Type 2 diabetes mellitus with hemoglobin A1c goal of less than 7.0% 02/24/2023 Last Assessment & Plan: Insulin dependent Recent referral to [facility] for management Hemoglobin AIC Results: Lab [...] Next Due Pneumococcal Conjugate Vacci ne, 20-valent ([id number]) 02/24/2023 Pneumococcal Polysaccharide PPV23 (Pneumovax) 05/04/2015 SEASONAL [...] 9:29 AM EDT NUTRITION PROGRESS NOTE - [facility] TELEPHONIC [facility] Call placed to patient today [...] time. I will place a referral to [facility] for emergency food box, [facility] for local food resources and [employer] (patient aware and agrees to). Patient reports he is in contact with [facility] and is addressing needs. Declined referral to [facility] at this time. Patient is [...] at Home Nhi Shetty RDN [address] [place] [facility] [place] [address] 04/11/2023 Office Visit Pharmacy [facility] [address] [place] [address] 04/20/2023 Telemedicine [facility] Namita Zaldivar CRNP [address] [place] [address] Gavi Apple, Community Health Home Visitor [address] [place] [address] 05/04/2023 Home Visit [facility] Lucia Echevarria RN [address] [place] [address] 05/26/2023 Laboratory Laboratory Processing [facility], [facility] Mobile Home Draw [address] [place] [address] 05/26/2023 Office Visit Internal Medicine Liyah Oseguera MD [address] [place] [address] Health Maintenance Due Date Last Done Comments [...] 10/10/2017 LUNG CANCER SCREENING - USE SMARTSET [id number] Completed 12/08/2017 Influenza Vaccine (FLU shot) Completed [...] Primary documented in this encounter Care Teams Director Content Marketing Relationship Specialty Start Date End Date Liyah Oseguera MD [address] [facility] [place] [address] PCP - General Internal Medicine 03/25/17 documented as of this encounter
--- OUTSIDE RECORDS SUMMARY | 2023-06-02 11:16 | External Medical Summary | Summary of Care ---
Author Name Unknown Organization [facility] Address [address] [place] [address] Phone [phone] Care Team Providers Care Baby Doctor Name Role Phone Liyah Oseguera MD Primary Care Provider [phone] Reason for Visit * Reason Onset Date Comments Hospital Follow-Up [facility] d/c 02/17 Medication Administration 02/24/2023 Flu an d/or Pneumo Inj Hospital Follow-Up 02/24/2023 Encounter Details Date Type Department Care Team Description 02/24/2023 Office Visit General Internal Medicine [facility] [place] [address] [facility] [address] Liyah Oseguera MD [address] [place] [address] Diabetic hyperosmolar coma (HCC)*; Type 2 diabetes mellitus with hemoglobin A1c goal of less than 7.0% (HCC); Hospital discharge follow-up; Recurrent acute pancreatitis; Traumatic amputation of leg below knee, right, sequela (HCC); Phantom limb syndrome with pain (HCC); Alcohol abuse; Need for prophylactic vaccination and inoculation against influenza; Need for pneumococcal vaccination; HTN, goal below 140/90; BMI 27.0-27.9,adult; 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 Dissolve one heaping tablespoon in 8 ounces of water or juice. 1 Bottle 2 8 Active Daily Elise Oral Tablet Take 1 [...] cut, crush or chew. 30 Capsule 5 2 Active metFORMIN HCl 500 MG Oral Tablet (Glucophage)Indic ations:Type 2 diabetes mellitus with hemoglobin A1c goal of less than 7.0% (HCC) Take 1 Tablet (500 mg) by mouth 2 times a day with morning and evening meals. 60 Tablet 5 2 Active Insulin Glargine Solostar 100 UNIT/ML Subcutaneous Solution Pen-injectorIndic ations:Type 2 diabetes mellitus with hemoglobin A1c goal of less than 7.0% (HCC) Inject 25 Units under the skin in the morning. If fasting sugar is > 125 for 3 days then increase by 2 units and continue. 3 Each 5 3 Active Ketoconazole 2 % cream 0 8 02/26/20 23 Discontinued(Med ication List Clean Up) Hydrocortisone-Al oe 1 % CREA 0 8 02/26/20 23 Discontinued(Med ication List Clean Up) Albuterol Sulfate HFA 108 (90 Base) MCG/ACT Inhalation Aerosol SolutionIndicatio ns:Cough Inhale 2 Puffs by mouth every 4 hours as needed for Wheezing. 1 Inhaler 1 8 03/03/20 23 Discontinued(Med ication List Clean Up) senna-docusate (ISRA-COLACE) 8.6-50 MG per tabletIndications :Other constipation Take 2 Tabs by mouth daily. 60 Tab 5 8 02/25/20 23 Discontinued Folic Acid 1 MG Oral Tablet Take 1 Tablet by mouth in the morning. 0 02/26/20 23 Discontinued(Ref ill) Potassium Chloride 20 MEQ Oral Packet Take 20 mEq by mouth in the morning. 0 02/26/20 23 Discontinued(Ref ill) Thiamine HCl 100 MG Oral Tablet (vitamin B-1) Take 1 Tablet by mouth in the morning. 0 02/26/20 23 Discontinued(Ref ill) Gabapentin 100 MG Oral Capsule 3 Capsules. 0 8 02/25/20 23 Discontinued(End of Procedure) Magnesium Oxide 400 (240 Mg) MG Oral Tablet Take 1 Tablet by mouth in the morning. In the morning.. 0 2 02/26/20 23 Discontinued(Ref ill) Insulin Glargine Solostar 100 UNIT/ML Subcutaneous Solution Pen-injector Inject 25 Units under the skin in the morning. 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 for management Hemoglobin AIC Results: [...] Readings from Last 4 Encounters: 02/25/23 114/62 09/07/23 126/80 05/10/22 122/72 06/16/18 122/76 BMI 27.0-27.9,adult [...] Next Due Pneumococcal Conjugate Vacci ne, 20-valent ([id number]) 02/24/2023 Pneumococcal Polysaccharide PPV23 (Pneumovax) 05/04/2015 Seasonal [...] Sign Reading Time Taken Comments Blood Pressure 126/80 02/24/2023 2:32 PM EDT Pulse 77 02/24/2023 2:32 PM EDT Temperature 36.4 C (97.6 F) 02/24/2023 2:32 PM ED T Respiratory Rate - - Oxygen Saturation 96% 02/24/2023 2:32 PM EDT Inhaled Oxygen Concentration - - Weight 73.4 kg (161 lb 14.4 oz) 02/24/2023 2:32 PM EDT Height 173 cm (5' 8.11") 02/24/2023 2:32 PM EDT Body Mass Index 24.54 02/24/2023 2:32 PM EDT documented in this encounter Patient Instructions * Patient Instructions* Yolanda CamLIN - 02/24/2023 2:32 PM EDT ~~PATIENT INSTRUCTIONS FOR PNEUMOCOCCAL VACCINE~~ Possible side effects of pneumococcal vaccine, (pneumonia shot), are usually mild and can include: 1. Soreness or redness at injection site 2. Low grade fever 3. Body aches You may use Tylenol/Acetaminophen as needed for these symptoms. LET YOUR DOCTOR KNOW IMMEDIATELY IF YOU HAVE DIFFICULTY BREATHING OR SWALLOWING, EXPERIENCE ITCHINGOF FEET OR HANDS, HAVE SWELLING OF EYES, FACE OR INSIDE OF NOSE. Diabetes: Keeping Feet Healthy Inspect your feet every day for signs of a problem. Diabetes can damage nerves in your feet and cause neuropathy. This condition makes it hard for you to feel injuries or sore spots. Diabetes can also change blood flow, making it harder for small problems, like a blister, to heal properly. In fact, minor injuries can quickly become serious infections that send you to the hospital. Practice self-care to protect your feet and keep them healthy. Take Special Care Inspect your feet daily for problems such as redness, blisters, cracks, dry skin, or numbness. Use a mirror to see the bottoms of your feet. Or, ask for help. Manage your diabetes. Monitor and control your blood sugar. Take all your medications as prescribed. Avoid walking barefoot, even indoors. Wash your feet with warm water and mild soap. Dry well, especially between toes. Dont treat corns or calluses yourself. Talk to your doctor or rawhide trimmer (a doctor who specializes in foot care) if you need assistance trimming your toenails. Use moisturizing cream or lotion if you have dry skin, but dont use it between toes. Dont use heating pads on your feet. If you have neuropathy, you could get a burn and not feel it. Stop smoking. Smoking restricts blood flow and can make it harder for wounds to heal. Have Regular Checkups Foot problems can develop quickly. So be sure to follow your healthcare teams schedule for regular checkups. During office visits, take off your shoes and socks as soon as you get in the exam room. Ask your healthcare provider to examine your feet for problems. This will make it easier to find and treat small skin irritations before they get worse. Regular checkups can also help keep track of the blood flow and feeling in your feet. If you have neuropathy, you may need to have checkups more often. Wear Proper Footwear Wearing proper footwear is very important. If areas of your feet have been damaged by too much pressure, your healthcare provider may recommend changing your footwear. In some cases, avoiding high heels or tight work boots may be all thats needed. Or, your healthcare provider may recommend special shoes or custom inserts. These help protect your feet and keep existing irritations from getting worse. If you need special footwear, ask your healthcare provider if you qualify for [employer] diabetic shoe program. Make Sure Shoes and Socks Fit Any pair of shoes--new or old--should feel comfortable as soon as you put them on. There shouldnt be any rubbing when you walk. Wear the right shoe for any activity. For instance, a running shoe is designed to keep your feet injury-free while jogging. Buy shoes at the end of the day, when your feet are larger. Make sure they provide support without feeling too loose. Make sure your socks fit, t oo. Wear soft, seamless, well-padded socks for activity. Cotton or microfiber socks are best to help to absorb sweat. To protect your feet, avoid shoes that are open-toed or open-heeled. If you have questions about what kinds of shoes and socks are best, talk to your healthcare team. Get Regular Exercise Regular exercise improves blood flow in your feet. It also increases foot strength and flexibility.Gentle exercises, like walking or riding a stationary bicycle, are best. You can also do special foot exercises. Just be sure to talk with your healthcare provider before starting any exercise program. Also mention if any exercise causes pain, redness, or other signs of foot problems. Note: If you have any kind of break in the skin of your foot or ankle, keep the area clean. Then call your doctor--especially if the area doesnt appear to be healing. [phone] [employer], [address] [place] [address], [place] [address]. All rights reserved. This information is not intended as a substitute for professional medical care. Always follow your healthcare professional's instructions. documented in this encounter Progress Notes * Liyah Oseguera MD - 02/24/2023 2:40 PM EDT SUBJECTIVE: Umair Harrison is a 62 year old male. Chief Complaint Patient presents with Hospital Follow-Up [facility] d/c 02/17/23 Medication Administration Flu and/or Pneumo Inj HPI: 62 year old male with PMH significant for hypertension, hyperlipidemia, depression, recurrent pancreatitis, alcohol abuse, obesity, tobacco abuse,status post right BKA with phantom pain presents herefor hospital follow up. Pt was seen for hospital f/u for alcoholic pancreatitis in 04/2022 when lab showed much worse DM with Hba1c of 9.5 , he was given jardiance and metformin but he was aware then per nurse message but he has no recollection. His brother was staying with him 1 night and the next day he noticed patient to be weak, not able to get out of bed and confused so 911 called . Presented to hospital on 02/11/23. He was found to be confused and have very high sugar > 1819 with high anion gap . He was then admitted and treated with IV fluids . Labs was significant for very high sugar, low sodium at 115,anion gap of 19 and ARF but lipase normal . Imaging CT head with no finding . He was started on lantus, metfomrin gradually . He was seen by PT . Rest of the hospital course unremarkable . He was sent home on 02/18/23 on Lantus and metformin and stopping on jardiance . Since discharge feeling much better . Hospital records reviewed and updated. The patient's medication list was reviewed and updated as needed. Current issues now- -needs script -getting PT -no alcohol at all Patient Active Problem List Diagnosis Code Traumatic amputation of leg below knee, right, sequela (HCC) S88.111S Mild episode of recurrent major depressive disorder (HCC) F33.0 HTN, goal below 140/90 I10 BMI 27.0-27.9,adult Z68.27 Alcohol abuse F10.10 Recurrent acute pancreatitis K85.90 History of acute alcohol intoxication Z87.898 Hypokalemia E87.6 Phantom limb syndrome with pain (HCC) G54.6 Phantom limb syndrome with pain (HCC) G54.6 Current Outpatient Medications Medication Sig Dispense Refill Ketoconazole 2 % cream Hydrocortisone-Aloe 1 % CREA polyethylene glycol 3350 (MIRALAX) 255 gram powder Take 17 g by mouth as needed for Constipation. Dissolve one heaping tablespoon in 8 ounces of water or juice. 1 Bottle 2 Daily Elise Oral Tablet Take 1 Tab by mouth daily. Carvedilol 3.125 MG Oral Tablet (Coreg) Take 1 Tablet by mouth 2 times a day with morning and evening meals. Folic Acid 1 MG Oral Tablet Take 1 Tablet by mouth in the morning. Potassium Chloride 20 MEQ Oral Packet Take 20 mEq by mouth in the morning. Thiamine HCl 100 MG Oral Tablet (vitamin B-1) Take 1 Tablet by mouth in the morning. Magnesium Oxide 400 (240 Mg) MG Oral Tablet Take 1 Tablet by mouth in the morning. In the morning.. DULoxetine HCl 20 MG Oral Capsule Delayed Release Particles (duloxetine) Take 1 Capsule (20 mg) by mouth in the morning. Do not cut, crush or chew. 30 Capsule 5 metFORMIN HCl 500 MG Oral Tablet (Glucophage) Take 1 Tablet (500 mg) by mouth 2 times a day with morning and evening meals. 60 Tablet 5 Insulin Glargine Solostar 100 UNIT/ML Subcutaneous Solution Pen-injector Inject 25 Units under the skin in the morning. Albuterol Sulfate HFA 108 (90 Base) MCG/ACT Inhalation Aerosol Solution Inhale 2 Puffs by mouth every 4 hours as needed for Wheezing. 1 Inhaler 1 Gabapentin 100 MG Oral Capsule 3 Capsules. (Patient not taking: Reported on 02/24/2023) No current facility-administered medications for this visit. Review of patient's allergies indicates: No Known Allergies Past Medical History: Diagnosis Date Alcohol abuse Hyperlipidemia Hypertension Leg fracture, right with infection and underwent BKA Pancreatitis 2015 Traumatic amputation of leg below knee, right, sequela (HCC) 2013 Past Surgical History: Procedure Laterality Date AMPUTATION OF LOWER LEG Right 2014 below the knee Family History Problem Relation Age of Onset Cancer Brother Pancreatic Social History Socioeconomic History Marital status: Tobacco Use Smoking status: Every Day Packs/day: 0.50 Years: 40.00 Pack years: 20.00 Types: Cigarettes Smokeless tobacco: Never Substance and Sexual Activity Alcohol use: Yes Alcohol/week: 5.0 standard drinks Types: 5 12 oz of beer per week Comment: Up until 11/2017, patient was drinking 1 pint- a fifth of Vodka and 12 +beers per day Drug use: Yes Types: Cocaine Comment: smoked crack cocaine about 2 years ago Family History Problem Relation Age of Onset Cancer Brother Pancreatic REVIEW OF SYSTEMS: All 10 systems reviewed and negative except mentioned in HPI OBJECTIVE: BP 126/80 | Pulse 77 | Temp 36.4 C (97.6 F) (Tympanic) | Ht 1.73 m (5' 8.11") | Wt 73.4 kg (161lb 14.4 oz) | SpO2 96% | BMI 24.54 kg/m | BSA 1.88 m PHYSICAL EXAM: General: alert, healthy, and no distress Head: Normocephalic, No masses, lesions, tenderness or abnormalities Neck: supple, no adenopathy, no bruits, thyroid normal size, non-tender, without nodularity Heart: regular rate & rhythm, no murmur, and no gallops Lungs: chest symmetric with normal AP diameter, no chest deformities noted, no chest wall tenderness, lungs clear to auscultation Abdomen: abdomen soft, non-tender, normal bowel sounds, and no masses or organomegaly Back: back symmetric, no curvature, no costovertebral angle tenderness, range of motion is normal Extremities: less than 2 second capillary refill, no joint deformities, effusion, or inflammation, Rt BKA and n oedema on left ASSESSMENT AND PLAN Diabetic hyperosmolar coma (HCC) (Primary) - DISCH MED RECON CUR MED LIS - CBC WITH WBC DIFFERENTIAL AND ANEMIA REFLEX WORKUP; Future; Expected date: 02/24/2023 Discussed importance of taking meds and insulin ., diet and checking insulin to prevent hyperosmolar coma and prevent organ damage Type 2 diabetes mellitus with hemoglobin A1c goal of less than 7.0% (HCC) - DISCH MED RECON CUR MED LIS - Insulin Glargine Solostar 100 UNIT/ML Subcutaneous Solution Pen-injector; Inject 25 Units under the skin in the morning. If fasting sugar is > 125 for 3 days then increase by 2 units and continue. - HEMOGLOBIN A1C; Future; Expected date: 02/24/2023 - ALBUMIN / CREATININE RATIO, URINE; Future; Expected date: 02/24/2023 - HEMOGLOBIN A1C; Future; Expected date: 05/27/2023 - LIPID PANEL WITH DIRECT LDL IF TG IS HIGH; Future; Expected date: 05/27/2023 Hospital discharge follow-up - DISCH MED RECON CUR MED LIS Recurrent acute pancreatitis Traumatic amputation of leg below knee, right, sequela (HCC) Phantom limb syndrome with pain (HCC) Alcohol abuse - VITAMIN B12; Future; Expected date: 03/27/2023 - FOLIC ACID; Future; Expected date: 03/27/2023 Discussed cessation Need for prophylactic vaccination and inoculation against influenza - INFLUENZA VACC, QUAD, PF, 6 MONTHS & UP, 0.5 ML, IM Need for pneumococcal vaccination - PNEUMOCOCCAL VACC, PCV20, IM ([id number]) HTN, goal below 140/90 - COMPREHENSIVE METABOLIC PANEL; Future; Expected date: 02/24/2023 BMI 27.0-27.9,adult 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 | For: recheck Treatment and plan was discussed with patient and was given opportunity to ask questions which wereanswered appropriately. Patient verbalizing understanding. This note was prepared with the help of fluency and if there is any mis-spelled words , sentences or something which doesn't represent the content of the subject that could be technical error and please refer to the author for clarification. Liyah Oseguera MD 2:40 PM 02/24/2023 * Yolanda Cam LPN - 02/24/2023 2:31 PM EDT PRE - ADMINISTRATION DOCUMENTATION Are you experiencing any cold symptoms or fever? No Have you had Guillain-[place] Syndrome (an illness that causes paralysis) within the last 6 weeks? No Have you had the flu shot in the past? YES Have you ever had a reaction to the flu shot? No Yolanda Cam LPN, 02/24/2023 2:31 PM Immunization Administration Documentation Time Out Procedure Performed: Yes Patient Identified (Ask Name/Date of ): Yes Does the patient have a fever greater than 101 degrees today? No Patient allergic to latex? No VFC Stock: No Immunization(s) verified: Yes, Immunization Name: Flu and Prevnar 20 (PCV20), VIS Sheet(s) given: Yes Verified Side and Site: Yes Verified Shot(s) with Parent(s)/Patient: Yes DM Foot Exam completed today. Provider aware. Yolanda Cam LPN Socks and Shoes Removed for Annual Diabetic Foot Screening Patient has prosthetic right leg. LEFT FOOT: No Reddened, Cracking or Open Areas Noted. LEFT Dorsalis Pedis Pulse: Palpable LEFT Posterior Tibial Pulse: Palpable LEFT Monofilament:Patient reports feeling monofilament pressure on plantar surface of foot Left foot is very dry and flaky. Toenails thick and overgrown. Do you need diabetic shoes: No documented in this encounter Nursing Notes * Yolanda Cam LPN - 02/24/2023 2:31 PM EDT Chief Complaint Patient presents with Hospital Follow-Up [facility] d/c 02/17/23 Need script for insulin syringes. Does not have any Gabapentin. documented in this encounter Plan of Treatment Upcoming Encounters Date Type Specialty Care Team Description 03/14/2023 Office Visit Pharmacy Krishna Lopez [facility] [address], [place] [id number] 03/14/2023 Home Visit [facility] Lucia Echevarria RN [address] [place] [address] 03/21/2023 Nutrition Services [facility] Nhi Shetty, RDN [address] [facility] [place] [address] 04/20/2023 Telemedicine [facility] Namita Zaldivar CRNP [address] [facility] [place] [address] Gavi Apple, [facility] [employer] Worker [address] [place] [address] 05/26/2023 Laboratory Laboratory Processing [facility] Draw [address] [place] [address] 05/26/2023 Office Visit Internal Medicine Liyah Oseguera MD [address] [place] [address] Scheduled Orders Name Type Priority Associated Diagnoses Orde r Schedule ALBUMIN / CREATININE RATIO, URINE Lab Routine Type 2 diabetes mellitus with hemoglobin A1c goal of less than 7.0% (HCC) Expected: 02/24/2023 (Approximate), Expires: 02/24/2024 CBC Lab Routine Anemia, unspecified type Expected: 05/27/2023, Expires: 02/25/2024 VITAMIN B12 Lab Routine Screening for deficiency anemia Alcohol abuse Expected: 03/27/2023, Expires: 02/25/2024 FOLIC ACID Lab Routine Screening for deficiency anemia Alcohol abuse Expected: 03/27/2023, Expires: 02/25/2024 HEMOGLOBIN A1C Lab Routine Type 2 diabetes mellitus with hemoglobin A1c goal of less than 7.0% (HCC) Expected: 05/27/2023, Expires: 02/25/2024 CBC Lab Routine Screening for deficiency anemia Expected: 05/27/2023, Expires: 02/25/2024 LIPID PANEL WITH DIRECT LDL IF TG IS HIGH Lab Routine Type 2 diabetes mellitus with hemoglobin A1c goal of less than 7.0% (HCC) Expected: 05/27/2023, Expires: 02/26/2024 Health Maintenance Due Date Last Done Comments COVID-19 Vaccine (#1) 1962 DIABETES-EYE EXAM 1980 Cologuard 2007 Colonoscopy 2007 Colorectal Cancer Screening 2007 Fecal Occult Blood Test 2007 Sigmoidoscopy 2007 Zoster Vaccines (1 of 2) 2012 DISCUSS TOBACCO CESSATION (REFER TO SMARTSET #9930) 03/15/2019 03/15/2018 Depression Screening 06/16/2019 06/16/2018 Albumin/Creatinine Ratio 05/10/2023 05/10/2022 HbA1c 08/25/2023 02/24/2023, 04/21, 03/15/2018 Diabetic Foot Exam 02/25/2024 02/24/2023 GFR 02/25/2024 02/24/2023, 04/21, 11/13/2018, Additional history exists DTaP,Tdap,and Td Vaccines (2 - Td or Tdap) 03/25/2027 03/25/2017 Lipid Panel 05/10/2027 05/10/2022, 10/10/2017 LUNG CANCER SCREENING - USE SMARTSET [id number] Completed 12/08/2017 Influenza Vaccine (FLU shot) Completed [...] Not on filedocumented as of this encounter Results * HEPATITIS B SURFACE ANTIBODY (02/24/2023 3:17 PM EDT) Hepatitis B Surface Antibody, Quantitative <3.5 mIU/mL 02/25/2023 1:20 AM EDT LABORATORY [facility] Hepatitis B Surface Antibody, Qualitative Negative 02/25/2023 1:20 AM EDT LABORATORY [facility] Hepatitis B Surface Antibody, Interpretation NOT immune to Hepatitis B Virus 02/25/2023 1:20 AM EDT LAB[facility]ATORY [facility] Comment: POSITIVE: >=11.5 mIU/mL INDETERMINATE: 8.5-<11.5 mIU/mL NEGATIVE: <8.5 mIU/mL Blood Venous blood specimen / Unknown Venipuncture / Unknown 02/24/2023 3:17 PM EDT 02/24/2023 3:18 PM EDT Liyah Oseguera MD LAB BLOOD ORDERABLES Performing Organization Address [facility] de Phone Number LABORATORY [facility] [address] [place] [address] * (ABNORMAL) HEMOGLOBIN A1C (02/24/2023 3:17 PM EDT) Pathologist [facility] Hemoglobin A1C 17.2(H) 4.0 - 5.6 % 02/25/2023 9:34 AM EDT LABORATORY [facility] Comment:The use of HbA1c to monitor glycemic status is based on normal hemoglobin and HbA composition. This test should not be used in patients with abnormal hemoglobin that affects the half life of the red blood cell or the in vivo glycation rates. Estimated Average Glucose 447(H) <126 mg/dL 02/25/2023 9:34 AM EDT LABORATORY [facility] Blood Venous blood specimen / Unknown Venipuncture / Unknown 02/24/2023 3:17 PM EDT 02/24/2023 3:18 PM EDT Liyah Oseguera MD LAB BLOOD ORDERABLES Performing Organization Address [facility] Co de Phone Number LABORATORY [facility] [address] [place] [address] * (ABNORMAL) COMPREHENSIVE METABOLIC PANEL (02/24/2023 3:17 PM EDT) BUN 8 6 - 20 mg/dL 02/24/2023 4:14 PM EDT [address] Creatinine 0.7 0.6 - 1.2 mg/dL 02/24/2023 4:14 PM EDT [address] Estimated Glomerular Filtration Rate >90 >=60 mL/min 02/24/2023 4:14 PM EDT [address] Comment:eGFR is calculated b ased on the CKD-EPI 2020 equation Sodium 135 135 - 146 mmol/L 02/24/2023 4:14 PM EDT [address] Potassium 4.2 3.5 - 5.1 mmol/L 02/24/2023 4:14 PM EDT [facility] 56 Chloride 99 98 - 107 mmol/L 02/24/2023 4:14 PM EDT [address] CO2 25 22 - 32 mmol/L 02/24/2023 4:14 PM EDT [address] Anion Gap 11 7 - 15 mmol/L 02/24/2023 4:14 PM EDT [address] Glucose 182(H) 70 - 120 mg/dL 02/24/2023 4:14 PM EDT [facility] 56 Albumin 3.9 3.8 - 5.0 g/dL 02/24/2023 4:14 PM EDT [facility] 56 AST 13 10 - 50 U/L 02/24/2023 4:14 PM EDT [address] Alkaline Phosphatase 119 35 - 130 U/L 02/24/2023 4:14 PM T [facility] 56 Bilirubin, Total 0.2 <=1.2 mg/dL 02/24/2023 4:14 PM EDT [facility] 56 Calcium 9.8 8.4 - 10.2 mg/dL 02/24/2023 4:14 PM EDT [facility] 56 Protein 6.6 6.0 - 8.3 g/dL 02/24/2023 4:14 PM EDT [facility] 56-02 ALT 13 10 - 50 U/L 02/24/2023 4:14 PM EDT [facility] 56-02 Blood Venous blood specimen / Unknown Venipuncture / Unknown 02/24/2023 3:17 PM EDT 02/24/2023 3:18 PM EDT Liyah Oseguera MD LAB BLOOD ORDERABLES [facility] 56 [address] [facility] [address] documented in this encounter Visit Diagnoses Diagnosis Diabetic hyperosmolar coma (HCC)- Primary Type II or unspecified type diabetes mellitus with hyperosmolarity, not stated as uncontrolled Type 2 diabetes mellitus with hemoglobin A1c goal of less than 7.0% (HCC) Hospital discharge follow-up Other follow-up examination Recurrent acute pancreatitis Acute pancreatitis Traumatic amputation of leg below knee, right, sequela (HCC) Phantom limb syndrome with pain (HCC) Phantom limb (syndrome) Alcohol abuse Alcohol abuse, unspecified Need for prophylactic vaccination and inoculation against influenza Need for pneumococcal vaccination Need for prophylactic vaccination against streptococcus pneumoniae (pneumococcus) HTN, goal below 140/90 Unspecified essential hypertension BMI 27.0-27.9,adult Body Mass Index 27.0-27.9, adult Acquired absence of right leg below knee (HCC) Lower limb amputation, below knee Need for hepatitis B vaccination Need for prophylactic vaccination and inoculation against viral hepatitis DM type 2 nursing care encounter (HCC) Type II or unspecified type diabetes mellitus without mention of complication, not stated as uncontrolled Anemia, unspecified type Screening for deficiency anemia Screening for other and unspecified deficiency anemia documented in this encounter Care Teams Baby Doctor Relationship Specialty Start Date End Date Liyah Oseguera MD [address] [facility] [place] [address] PCP - General Internal Medicine 03/25/17 documented as of this encounter
--- OUTSIDE RECORDS SUMMARY | 2023-06-02 11:16 | External Medical Summary | Summary of Care ---
Author Name Unknown Organization [facility] Address [address] [place] [address] Phone [phone] Care Team Providers Care Ladle Pourer Name Role Phone Liyah Oseguera MD Primary Care Provider [phone] Reason for Visit * Reason Onset Date Comments [facility]: Maintenance 03/15/2023 Encounter Details Date Type Department Care Team Description 03/15/2023 Telephone Care Coordination [address], [place] [id number] Noemi Nava OSA [facility]: Maintenance Allergies No known active allergiesdocumented as of this encounter (statuses as of 03/24/2023) Medications Medication Sig Dispensed Refills Start Date [...] goal of less than 7.0% ([facility]) Inject 25 Units under the skin in [...] with flexpen 100 Each 3 03/03/2023 Active Venturepax Verio In Vitro Strip (Glucose Blood)Indications:T ype [...] CONTINUOUSLY 3 Each 03/14/2023 Active Dexcom G7 Operators School Manager DeviceIndications:T ype 2 diabetes mellitus with hemoglobin A1c goal of less than 7.0% (HCC) USE TO CHECK BLOOD SUGARS CONTINOUSLY 1 Each 0 03/14/2023 Active documented as of this encounter (statuses as of 03/24/2023) Active Problems Problem Noted Date 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 03/03/2023 Last Assessment & Plan: Managed via [facility] for wound care Type 2 diabetes mellitus with hemoglobin A1c goal of less than 7.0% 02/24/2023 Last Assessment & Plan: Insulin dependent Recent referral to [facility] for management Hemoglobin AIC Results: [...] as of this encounter (statuses as of 03/24/2023) Resolved Problems Problem Noted Date Resolved Date Acute respiratory failure with hypoxia 3 03/03/2023 Acquired absence of right leg below knee 023 03/03/2023 Alcohol dependence with withdrawal, unspecified 03/15/2018 03/15/2018 Body mass index (BMI) of 40.0 to 44.9 in adult 0 11/08/2017 12/20/2017 Overview: Per Obesity protocol #1 documented as of this encounter (statuses as of 03/24/2023) Immunizations Name Administration Dates Next Due Pneumococcal Conjugate Vacci ne, 20-valent ([id number]) 02/24/2023 Pneumococcal Polysaccharide PPV23 (Pneumovax) 05/04/2015 SEASONAL [...] Telephone Encounter - Sole Simons RN - 03/24/2023 8:23 AM EDT Received call from pt who is requesting to speak with the CANDE who is supposed to assist him with copays in order to get his medications. Noted documentation in chart from Noemi HINES. Unable to contact Noemi via Teams or TT. Will route message to Noemi in [facility]. Sole HAYWARD, RN [facility] Intake Triage Coordinator [phone] * Telephone Encounter - FLORA Rivera - 03/15/2023 8:15 AM EDT PUBLIC [facility]ALTH MICROBIOLOGIST NOTE: UTC, 3 phone rings and hangs up. PUBLIC HEALTH MICROBIOLOGIST closing task due to 3 UTCS. documented in this encounter Plan of Treatment Upcoming Encounters Date Type Specialty Care Team Description 03/28/2023 Nutrition Services [facility] Nhi Shetty, LEXIS [address] [facility] [place] [address] 04/11/2023 Office Visit Pharmacy [facility] [address] [place] [address] 04/20/2023 Telemedicine [facility] Namita Zaldivar CRNP [address] [place] [address] Gavi Apple, Community Health Technical Sales Director [address] [place] [address] 05/04/2023 Home Visit [facility] Lucia Echevarria RN [address] [place] [address] 05/26/2023 Laboratory Laboratory Processing [facility] [place] Draw [address] [place] [address] 05/26/2023 Office Visit Internal Medicine Liyah Oseguera MD [address] [place] [address] Health Maintenance Due Date Last Done Comments [...] 10/10/2017 LUNG CANCER SCREENING - USE SMARTSET 81271 Completed 12/08/2017 Influenza Vaccine (FLU shot) Completed [...] filedocumented as of this encounter Care Teams Ladle Pourer Relationship Specialty Start Date End Date Liyah Oseguera MD [address] [place] [address] PCP - General Internal Medicine 03/25/17 documented as of this encounter
--- OUTSIDE RECORDS SUMMARY | 2023-06-02 11:16 | External Medical Summary | Summary of Care ---
Author Name Unknown Organization [facility] Address [address] [place] [address] Phone [phone] Care Team Providers Care Whipped Topping Mixer Name Role Phone Liyah Oseguera MD Primary Care Provider [phone] Reason for Visit * Reason Comments Dosage Adjustment In Person (Anticoag Cl inic) Diabetes Education * Evaluate & Treat - Unlimited Visits (Within 3 days (urgent)) - Authorized Specialty Diagnoses / Procedures Referred By Contac t Referred To Contact Pharmacist / Pharmacy Diagnoses Type 2 diabetes mellitus with diabetic mononeuropathy, without long-term current use of insulin ([facility]) Liyah Oseguera MD [address] [place] [address] Referral ID Status Reason Start Date Expiration Date Visits Requested Visits Authorized [id number] Authorized Specialty Services Required 02/22/2023 99 99 Encounter Details Date Type Department Care Team Description 03/14/2023 Office Visit Pharmacy, [address] [address] [facility] [address] [place] [address] Type 2 diabetes mellitus with hemoglobin A1c goal of less than 7.0% ([facility])* Allergies No known active allergiesdocumented as of [...] or chew. 30 Capsule 5 2 Active Insulin Glargine Solostar 100 UNIT/ML Subcutaneous Solution Pen-injectorIndic ations:Type 2 diabetes mellitus with hemoglobin A1c goal of less than 7.0% ([facility]) Inject 25 Units under the skin in the morning. If fasting sugar is > 125 for 3 days then increase by 2 units and continue. 3 Each 5 3 Active Potassium Chloride 20 MEQ Oral PacketIndications :Hypokalemia Take 20 mEq by mouth in the morning. 90 Packet 3 3 Active Thiamine HCl 100 MG Oral Tablet (vitamin B-1)Indications:A lcohol abuse Take 1 Tablet by mouth in the morning. 90 Tablet 3 3 Active Magnesium Oxide -Mg Supplement 400 (240 Mg) MG Oral Tablet (Mag-Ox)Indicatio ns:Hypokalemia Take 1 Tablet by mouth in the morning. In the morning.. 90 Tablet 3 3 Active Folic Acid 1 MG Oral TabletIndications :Alcohol abuse Take 1 Tablet by mouth in the morning. 90 Tablet 3 3 Active Optifoam 4"X4" Pad Apply to RT stump and change every 3-4 days 10 Each 2 3 Active NovoLOG FlexPen 100 UNIT/ML Subcutaneous Solution Pen-injector (insulin aspart) Take 4 units before normal meals and 2 units with snack 3 mL 5 3 Active Novofine Pen Needle 32G X 6 MM (NOVOFINE 32G PEN NEEDLE) Use one needle per injection with flexpen 100 Each 3 3 Active OneTouch Verio In Vitro Strip (Glucose Blood)Indications :Type 2 diabetes mellitus with hemoglobin A1c goal of less than 7.0% (HCC) Use to check blood sugars 3 times daily. E 11.9 300 Strip 3 3 Active metFORMIN HCl ER 500 MG Oral Tablet Extended Release 24 Hour (Glucophage XR)Indications:Ty pe 2 diabetes mellitus with hemoglobin A1c goal of less than 7.0% (HCC) Take 2 Tablets by mouth in the morning and 2 Tablets before bedtime. 360 Tablet 4 3 Active Dexcom G7 SensorIndications :Type 2 diabetes mellitus with hemoglobin A1c goal of less than 7.0% (HCC) CHANGE EVERY 10 DAYS. USE TO CHECK BLOOD SUGARS CONTINUOUSLY 3 Each 11 3 Active Dexcom G7 Metal Drill Operator DeviceIndications :Type 2 diabetes mellitus with hemoglobin A1c goal of less than 7.0% (HCC) USE TO CHECK BLOOD SUGARS CONTINOUSLY 1 Each 0 3 Active metFORMIN HCl 500 MG Oral Tablet (Glucophage)Indic ations:Type 2 diabetes mellitus with hemoglobin A1c goal of less than 7.0% (HCC) Take 1 Tablet (500 mg) by mouth 2 times a day with morning and evening meals. 60 Tablet 5 2 03/14/20 23 Discontinued documented as of this encounter (statuses as of 03/14/2023) Active Problems Problem Noted Date 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 03/03/2023 Last Assessment & Plan: Managed via [facility] for wound care Type 2 diabetes mellitus with hemoglobin A1c goal of less than 7.0% 02/24/2023 Last Assessment & Plan: Insulin dependent Recent referral to [facility] for management Hemoglobin AIC Results: Lab [...] Next Due Pneumococcal Conjugate Vacci ne, 20-valent ([id number]) 02/24/2023 Pneumococcal Polysaccharide PPV23 (Pneumovax) 05/04/2015 Seasonal [...] as of this encounter Progress Notes * Tasneem Ramos, [facility] - 03/14/2023 9:40 AM EDT Medication Therapy Disease Management Clinic - Diabetes Management Progress Note Umair Harrison, identified by name and date of , is a 62 year old male being seen for diabetes management/education. Patient presents for initial diabetic visit. Past Medical History: Diagnosis Date Alcohol abuse Hyperlipidemia Hypertension Leg fracture, right with infection and underwent BKA Pancreatitis 2016 Traumatic amputation of leg below knee, right, sequela (HCC) 2013 Diagnosis: Type 2 Age of diabetes diagnosis: at least 5 years ago per lab results in chart; recent hospitalization with HHS and glucose level of 1,819 Family history of diabetes: none reported Microvascular complications: right knee amputation Macrovascular complications: hypertension DIABETES: Current diabetic medications: Metformin 500 mg two tablets twice daily- only two tablets daily Glargine 25 units daily (pens) Novolog 4 units with meals and 2 units with snacks (pens) Medication Injection Site: Abdomen Lifestyle: Diet: Comprehensive Diet Review Meal #1: cereal Meal #2: sandwich Meal #3: hamburger or something for dinner Snacks: none reported Beverages: water encouraged Activity: limited due to amputation Alcohol: hx of alcoholism Tobacco Use: not asked Glucose Review/SMBG: Readings per patient memory/recall: Patient is currently testing 3 times a day 190, 211 (nighttime) This AM 125 Lowest reading lately: 60 in the evening Highest reading lately: 311 last week, afternoon time Hypoglycemia: Does your blood sugar go below 70 mg/dL? Yes, pt did not feel symptomatic Hyperglycemia symptoms present: none Recent Labs Units 02/24/23 1517 05/10/22 1200 HEMOGLOBIN A1C - [facility] % 17.2* 9.5* Recent Labs Units 02/24/23 1517 05/10/22 1200 ESTIMATED GLOMERULAR FILTRATION RATE - [facility] mL/min >90 >90 CREATININE - [facility] mg/dL 0.7 0.7 HYPERTENSION: Patient on ACEi/ARB: no, due for repeat UACR BP Readings from Last 3 Encounters: 03/04/23 118/76 03/03/23 120/80 02/25/23 114/62 Blood pressure at goal: yes HYPERLIPIDEMIA: Patient is taking moderate or high intensity statin: No Current regimen: none Goal statin intensity: high The 10-year ASCVD risk score (Rozina PRICE, et al., 2019) is: 31.7% Values used to calculate the score: Age: 62 years Sex: Male Is Non- : Yes Diabetic: Yes Tobacco smoker: Yes Systolic Blood Pressure: 118 mmHg Is BP treated: Yes HDL Cholesterol: 64 mg/dL Total Cholesterol: 207 mg/dL Recent Labs Units 05/10/22 1200 LDL CHOLESTEROL (DIRECT MEASURE) - [facility] mg/dL 101 HEALTH MAINTENANCE REVIEW: Health Maintenance Due Topic Date Due COVID-19 Vaccine (1) Never done DIABETES-EYE EXAM Never done Colorectal Cancer Screening Never done Zoster Vaccines (1 of 2) Never done DISCUSS TOBACCO CESSATION (REFER TO SMARTSET #[id number]) 03/15/2019 Depression Screening 06/16/2019 Albumin/Creatinine Ratio 05/10/2023 ASSESSMENT & PLAN: ICD-10-CM 1. Type 2 diabetes mellitus with hemoglobin A1c goal of less than 7.0% (HCC) E11.9 Considerations: - cost; $1 and $3 copays are even a burden to patient - hx of alcoholism - hx of acute pancreatitis - hospitalized at [facility] January 2023 with HHS and glucose level of 1,819 --> was not taking any diabetic medications at that time (was prescribed jardiance and metformin) BG Readings - Blood sugars not available. Patient did not bring reader today. Interested in Dexcom-sent to pharmacy for patient. Discussed with patient difference between Type 1 and Type 2 diabetes.Discussed with patient common trend in BG and the goal BGs at each time of the day. Discussed with patient that medications, activity, and food are the three major components to help control BGs. Reviewed rule of 15s. Reviewed what a low blood sugar is. Medications - Reviewed current regimen, patient is not adherent to regimen. Only taking 2 total tablets of metformin. Will increase dose today + decrease basal insulin dose- likely that patient is inneed of additional mealtime coverage, but unable to assess trends without BG meter or CGM data. Diet, Exercise, Lifestyle - encouraged patient to buy frozen vegetables . Discussed with patient the amount of carbs in his morning cereal. Encouraged patient to eat veggies and drink ample water. Patient is agreeable to SMBG with Dexcom G7 daily. Patient aware to contact clinic if any hypoglycemia before next visit. MEDICATION CHANGES: yes, see below; preferred pharmacy: [facility] Medications: INC Metformin 500 mg two tablets twice daily DEC Glargine 23 units daily (pens) Novolog 4 units with meals and 2 units with snacks (pens) eGFR > 90 as of 02/24/23 FOLLOW UP: Return to clinic in 4 weeks 04/11/2023 Tasneem Ramos RPh Clinical Pharmacist - Electric Wheelchair Repairer Medication Therapy Management Clinic 03/14/2023, 9:41 AM documented in this encounter Plan of Treatment Upcoming Encounters Date Type Specialty Care Team Description 03/14/2023 Home Visit [facility] Lucia Echevarria RN [address] [place] [address] 03/21/2023 Nutrition Services [facility] Nhi Shetty, RDN [address] [place] [address] 04/11/2023 Office Visit Pharmacy [facility] [address] [place] [address] 04/20/2023 Telemedicine [facility] Namita Zaldivar CRNP [address] [place] [address] Gavi Apple, Community Health Fisheries Technician [address] [place] [address] 05/26/2023 Laboratory Laboratory Processing [facility] Home Draw [address] [place] [address] 05/26/2023 Office Visit Internal Medicine Liyah Oseguera MD [address] [place] [address] Health Maintenance Due Date Last Done Comments [...] 10/10/2017 LUNG CANCER SCREENING - USE SMARTSET [id number] Completed 12/08/2017 Influenza Vaccine (FLU shot) Completed [...] Primary documented in this encounter Care Teams Whipped Topping Mixer Relationship Specialty Start Date End Date Liyah Oseguera MD [address] [place] [address], [place] [address] PCP - General Internal Medicine 03/25/17 documented as of this encounter
--- OUTSIDE RECORDS SUMMARY | 2023-06-02 11:16 | External Medical Summary | Summary of Care ---
Author Name Unknown Organization [facility] Address [address] [place] [address] Phone [phone] Care Team Providers Care Inside Phone Sales Name Role Phone Liyah Oseguera MD Primary Care Provider [phone] Reason for Visit * Reason Comments Medical Nutrition Therapy Encounter Details Date Type Department Care Team Description 03/21/2023 Nutrition Services [facility], [facility] [address] [facility] [place] [address] Nhi Shetty, [place] [address] [facility] [address] Type 2 diabetes mellitus with hemoglobin A1c goal of less than 7.0% (FORM[facility])* Allergies No known active allergiesdocumented as of this encounter (statuses as of 03/21/2023) Medications Medication Sig Dispensed Refills Start Date [...] 3 Each 11 03/14/2023 Active Dexcom G7 Colloid Mill Operator DeviceIndications:T ype 2 diabetes mellitus with hemoglobin A1c goal of less than 7.0% ([facility]) USE TO CHECK BLOOD SUGARS CONTINOUSLY 1 Each 0 03/14/2023 Active documented as of this encounter (statuses as of 03/21/2023) Active Problems Problem Noted Date 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 03/03/2023 Last Assessment & Plan: Managed via [facility] for wound care Type 2 diabetes mellitus with hemoglobin A1c goal of less than 7.0% 02/24/2023 Last Assessment & Plan: Insulin dependent Recent referral to [facility] for management Hemoglobin AIC [...] as of this encounter (statuses as of 03/21/2023) Resolved Problems Problem Noted Date Resolved Date Acute respiratory failure with hypoxia 3 03/03/2023 Acquired absence of right leg below knee 023 03/03/2023 Alcohol dependence with withdrawal, unspecified 03/15/2018 03/15/2018 Body mass index (BMI) of 40.0 to 44.9 in adult 0 11/08/2017 12/20/2017 Overview: Per Obesity protocol #1 documented as of this encounter (statuses as of 03/21/2023) Immunizations Name Administration Dates Next Due Pneumococcal Conjugate Vacci ne, 20-valent ([id number]) 02/24/2023 Pneumococcal Polysaccharide PPV23 (Pneumovax) 05/04/2015 SEASONAL [...] Progress Notes * Nhi Shetty, ERICN - 03/21/2023 12:57 PM EDT NUTRITION CONSULT - OUTPATIENT [facility] Name: Umair Harrison [facility] Date: 03/21/2023 Time: 12:57 PM Patient was identified by name and date. Reason for Referral: Type 2 Diabetes NUTRITION ASSESSMENT: Call placed to patient after EHR reviewed. Patient reporting currently not a good time to talk, but did agree to phone call at a later date. Offered this week or next. Patient agreed to next week. Date and time set. Full nutrition assessment to follow. Client History EHR reviewed. 03/14/2023 MTM note reviewed notes "hospitalized at [facility] January 2023 with HHS and glucose level of 1,819 --> was not taking any diabetic medications at that time (was prescribed jardiance and metformin)" Patient Active Problem List Diagnosis Code Traumatic amputation of leg below knee, right, sequela ([facility]) S88.111S Mild episode of recurrent major depressive disorder ([facility]) F33.0 HTN, goal below 140/90 I10 BMI 27.0-27.9,adult Z68.27 Alcohol abuse F10.10 Recurrent acute pancreatitis K85.90 History of acute alcohol intoxication Z87.898 Hypokalemia E87.6 Phantom limb syndrome with pain ([facility]) G54.6 Type 2 diabetes mellitus with hemoglobin A1c goal of less than 7.0% ([facility]) E11.9 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 ([facility]) T87.89, L97.912 CGM pending - Past Surgical History: Procedure Laterality Date AMPUTATION OF LOWER LEG Right 2014 below the knee Food/Nutrition-Related History Describes typical diet history/24 hr recall PENDING Pertinent Medications (Current): Current Outpatient Medications Medication [...] per injection with flexpen 100 Each 3 Milestone AV TechnologiesTouch Verio In Vitro Strip (Glucose Blood) Use [...] SUGARS CONTINUOUSLY 3 Each 11 Dexcom G7 Colloid Mill Operator Device USE TO CHECK BLOOD SUGARS CONTINOUSLY 1 Each 0 No current facility-administered medications for this visit. Per 03/14/2023 [facility] follow up : "INC Metformin 500 mg two tablets twice daily DEC Glargine 23 units daily (pens) Novolog 4 units with meals and 2 units with snacks (pens) eGFR > 90 as of 02/24/23" Anthropometric Measurements There were no vitals taken for this visit. Wt Readings from Last 5 Encounters: 02/24/23 73.4 kg (161 lb 14.4 oz) 05/10/22 80.3 kg (177 lb 1.6 oz) 06/16/18 101.6 kg (224 lb) 03/15/18 104.8 kg (231 lb) 01/09/18 106.7 kg (235 lb 3.2 oz) Weight Change: 8.6% weight loss x 10 months BMI: BMI Readings from Last 1 Encounters: 02/24/23 24.54 kg/m Nutrition-Focused Physical Findings PENDING + 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 ( for wound care in place) Biochemical Data, Medical Tests, and Procedures Latest [...] Estimated Average Glucose <126 mg/dL 447 (H) Hemoglobin A1C 4.0 - 5.6 % 17.2 (H) (H): Data is abnormally high Hemoglobin AIC Results: Lab Results Component Value Date/Time HEMOGLOBIN A1C - [facility] 17.2 (H) 02/24/2023 03:17 PM HEMOGLOBIN A1C - [facility] 9.5 (H) 05/10/2022 12:00 PM HEMOGLOBIN A1C - [facility] 6.5 (H) 03/15/2018 11:31 AM NUTRITION DIAGNOSIS PENDING NUTRITION INTERVENTION: PENDING NUTRITION MONITORING AND EVALUATION: The following will be monitored and evaluated at the next visit: Full nutrition assessment to follow. Nhi Shetty RDN [facility], [facility] documented in this encounter Plan of Treatment Upcoming Encounters Date Type Specialty Care Team Description 03/28/2023 Nutrition Services [facility] Nhi Shetty RDN [address] [facility] [place] [address] 04/11/2023 Office Visit Pharmacy [place], [facility] [address] [facility] [address] 04/20/2023 Telemedicine [facility] Namita Zaldivar CRNP [address] [facility] [place] [address] Gavi Apple, Community Health Operations Recruiter [address] [place] [address] 05/04/2023 Home Visit [facility] Lucia Echevarria, RN [address] [place] [address] 05/26/2023 Laboratory Laboratory Processing [facility], [facility] Mobile Home Draw [address] [place] [address] 05/26/2023 Office Visit Internal Medicine Liyah Oseguera MD [address] [place] [address] Health Maintenance Due Date Last Done Comments COVID-19 Vaccine (#1) 1960 DIABETES-EYE EXAM 1980 Cologuard 2007 Colonoscopy 2007 Colorectal Cancer Screening 2007 Fecal Occult Blood Test 2007 Sigmoidoscopy 2007 Zoster Vaccines (1 of 2) 2012 DISCUSS TOBACCO CESSATION (REFER TO SMARTSET #6301) 03/15/2019 03/15/2018 Depression Screening 06/16/2019 06/16/2018 Albumin/Creatinine Ratio 05/10/2023 05/10/2022 HbA1c 08/25/2023 02/24/2023, 04/21, 03/15/2018 Diabetic Foot Exam 02/25/2024 02/24/2023 GFR 02/25/2024 02/24/2023, 04/21, 11/13/2018, Additional history exists DTaP,Tdap,and Td Vaccines (2 - Td or Tdap) 03/25/2027 03/25/2017 Lipid Panel 05/10/2027 05/10/2022, 10/10/2017 LUNG CANCER SCREENING - USE SMARTSET 85069 Completed 12/08/2017 Influenza Vaccine (FLU shot) Completed [...] Primary documented in this encounter Care Teams Inside Phone Sales Relationship Specialty Start Date End Date Liyah Oseguera MD [address] [place] [address] PCP - General Internal Medicine 03/25/17 documented as of this encounter
--- OUTSIDE RECORDS SUMMARY | 2023-06-02 11:16 | External Medical Summary | Summary of Care ---
Author Name Unknown Organization [facility] Address [address] [place] [address] Phone [phone] Care Team Providers Care Land Department Head Name Role Phone Liyah Oseguera MD Primary Care Provider [phone] Reason for Visit * Reason Onset Date Comments Medication Question 03/10/2023 Test strips. Encounter Details Date Type Department Care Team Description 03/10/2023 Telephone [facility] [address] [facility] [address] Liyah Oseguera MD [address] [place], [place] [id number] Medication Question (Test strips. ) Allergies No [...] 03/03/2023 Last Assessment & Plan: Managed via [facility] for wound care Type 2 diabetes mellitus with hemoglobin A1c goal of less than 7.0% 02/24/2023 Last Assessment & Plan: Insulin dependent Recent referral to [facility] for management Hemoglobin AIC Results: Lab Results [...] Next Due Pneumococcal Conjugate Vacci ne, 20-valent ([id number]) 02/24/2023 Pneumococcal Polysaccharide PPV23 (Pneumovax) 05/04/2015 Seasonal [...] encounter Miscellaneous Notes * Telephone Encounter - ARIEL Mancera - 03/10/2023 8:45 AM EDT Caller's name: Umair Ian call back number(OFFICE NUMBER FOR ): [phone] Reason for call: Pt is asking for more test strips. Pt does have a New DM appt with [facility] on Wednesday 03/14. He stated he does not have enough test strips to last until then. Most likely will be out of test strips on 03/11. Please send scrip to [address] Thank you, Aimee Gonsalez Catcher Plug [facility] ([facility]) (Formerly Telepharmacy) 03/10/2023, 8:46 AM documented in this encounter Plan of Treatment Upcoming Encounters Date Type Specialty Care Team Description 03/14/2023 Office Visit [facility] [address] [facility] [address] 03/14/2023 Home Visit [facility] Lucia Echevarria RN [address] [place] [address] 03/21/2023 Nutrition Services [facility] Nhi Shetty, RDN [address] [facility] [place] [address] 04/20/2023 Telemedicine [facility] Namita Zaldivar, [place] [address] [place] [address] Gavi Apple, Community Health Senior Engineering Tech [address] [place] [address] 05/26/2023 Laboratory Laboratory Processing [facility], [facility] Mobile Home Draw [address] [place] [address] 05/26/2023 Office Visit Internal Medicine Liyah Oseguera MD [address] [place] [address] Health Maintenance Due Date Last Done Comments COVID-19 Vaccine (#1) 1960 DIABETES-EYE EXAM 1980 Cologuard 2007 Colonoscopy 2007 Colorectal Cancer Screening 2007 Fecal Occult Blood Test 2007 Sigmoidoscopy 2007 Zoster Vaccines (1 of 2) 2012 DISCUSS TOBACCO CESSATION (REFER TO SMARTSET #9627) 03/15/2019 03/15/2018 Depression Screening 06/16/2019 06/16/2018 Albumin/Creatinine Ratio 05/10/2023 05/10/2022 HbA1c 08/25/2023 02/24/2023, 04/21, 03/15/2018 Diabetic Foot Exam 02/25/2024 02/24/2023 GFR 02/25/2024 02/24/2023, 04/21, 11/13/2018, Additional history exists DTaP,Tdap,and Td Vaccines (2 - Td or Tdap) 03/25/2027 03/25/2017 Lipid Panel 05/10/2027 05/10/2022, 10/10/2017 LUNG CANCER SCREENING - USE SMARTSET 63161 Completed 12/08/2017 Influenza Vaccine (FLU shot) Completed [...] filedocumented as of this encounter Care Teams Land Department Head Relationship Specialty Start Date End Date Liyah Oseguera MD [address] [facility] [place] [address] PCP - General Internal Medicine 03/25/17 documented as of this encounter
--- OUTSIDE RECORDS SUMMARY | 2023-06-02 11:16 | External Medical Summary | Summary of Care ---
Author Name Unknown Organization [facility] Address [address] [place] [address] Phone [phone] Care Team Providers Care Credit Interviewer Name Role Phone Liyah Oseguera MD Primary Care Provider [phone] Reason for Visit * Reason Onset Date Comments Medication Question 03/10/2023 Test strips. Encounter Details Date Type Department Care Team Description 03/10/2023 [facility] [facility] [address] Liyah Oseguera MD [address] [place], [place] [id number] Medication Question (Test strips. ) Allergies No [...] 03/03/2023 Last Assessment & Plan: Managed via [facility] for wound care Type 2 diabetes mellitus with hemoglobin A1c goal of less than 7.0% 02/24/2023 Last Assessment & Plan: Insulin dependent Recent referral to [facility] for management Hemoglobin AIC Results: [...] Next Due Pneumococcal Conjugate Vacci ne, 20-valent ([id number]) 02/24/2023 Pneumococcal Polysaccharide PPV23 (Pneumovax) 05/04/2015 Seasonal [...] Ian call back number(OFFICE NUMBER FOR ): [phone] Reason for call: Pt is asking for more test strips. Pt does have a New DM appt with [facility] on Wednesday 03/14. He stated he does not have enough test strips to last until then. Most likely will be out of test strips on 03/11. Please send scrip to [address] Thank you, Aimee Gonsalez Business Systems Technician [facility] ([facility]) (Formerly Telepharmacy) 03/10/2023, 8:46 AM documented in this encounter Plan of Treatment Upcoming Encounters Date Type Specialty Care Team Description 03/14/2023 Office Visit [facility]acy [facility] [address] [facility] [address] 03/14/2023 Home Visit [facility] Lucia Echevarria RN [address] [place] [address] 03/21/2023 Nutrition Services [facility] Nhi Shetty, RDN [address] [facility] [place] [address] 04/20/2023 Telemedicine [facility] Namita Zaldivar, [place] [address] [place] [address] Gavi Apple, Community Health Dictaphone Transcriber [address] [place] [address] 05/26/2023 Laboratory Laboratory Processing [facility], [facility] Mobile Home Draw [address] [place] [address] 05/26/2023 Office Visit Internal Medicine Liyah Oseguera MD [address] [place] [address] Health Maintenance Due Date Last Done Comments COVID-19 Vaccine (#1) 1960 DIABETES-EYE EXAM 1980 Cologuard 2007 Colonoscopy 2007 Colorectal Cancer Screening 2007 Fecal Occult Blood Test 2007 Sigmoidoscopy 2007 Zoster Vaccines (1 of 2) 2012 DISCUSS TOBACCO CESSATION (REFER TO SMARTSET #2404) 03/15/2019 03/15/2018 Depression Screening 06/16/2019 06/16/2018 Albumin/Creatinine Ratio 05/10/2023 05/10/2022 HbA1c 08/25/2023 02/24/2023, 04/21, 03/15/2018 Diabetic Foot Exam 02/25/2024 02/24/2023 GFR 02/25/2024 02/24/2023, 04/21, 11/13/2018, Additional history exists DTaP,Tdap,and Td Vaccines (2 - Td or Tdap) 03/25/2027 03/25/2017 Lipid Panel 05/10/2027 05/10/2022, 10/10/2017 LUNG CANCER SCREENING - USE SMARTSET 56322 Completed 12/08/2017 Influenza Vaccine (FLU shot) Completed [...] filedocumented as of this encounter Care Teams Credit Interviewer Relationship Specialty Start Date End Date Liyah Oseguera MD [address] [facility] [place] [place] [address] PCP - General Internal Medicine 03/25/17 documented as of this encounter
--- OUTSIDE RECORDS SUMMARY | 2023-06-02 11:16 | External Medical Summary | Summary of Care ---
Author Name Unknown Organization [facility] Address [address] [place] [address] Phone [phone] Care Team Providers Care Station Baggage Agent Name Role Phone Liyah Oseguera MD Primary Care Provider [phone] Reason for Visit * Reason Onset Date Comments Referral 03/24/2023 Encounter Details Date Type Department Care Team Description 03/24/2023 Telephone Fresh Food Rubina Arreaga [address] [place] [address] Lali Gomez [facility] Corporate Travel Manager [address] [place], [place] [phone] Referral Allergies No known active allergiesdocumented as of [...] CONTINUOUSLY 3 Each 03/14/2023 Active Dexcom G7 Pin Drafting Machine Operator DeviceIndications:T ype 2 diabetes mellitus with hemoglobin A1c goal of less than 7.0% ([facility]) USE TO CHECK BLOOD SUGARS CONTINOUSLY 1 Each 0 03/14/2023 Active documented as of this encounter (statuses as of 03/24/2023) Active Problems Problem Noted Date 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 03/03/2023 Last Assessment & Plan: Managed via [facility] for wound care Type 2 diabetes mellitus with hemoglobin A1c goal of less than 7.0% 02/24/2023 Last Assessment & Plan: Insulin dependent Recent referral to [facility] for management Hemoglobin AIC [...] Next Due Pneumococcal Conjugate Vacci ne, 20-valent ([id number]) 02/24/2023 Pneumococcal Polysaccharide PPV23 (Pneumovax) 05/04/2015 SEASONAL [...] encounter Miscellaneous Notes * Telephone Encounter - [facility] Corporate Travel Manager - 03/24/2023 9:27 AM EDT [facility] called patient regarding [facility] enrollment. Reviewed rules and regulations with patient. Pt states he is not interested. CANDE not enrolling pt at this time. Lali Gomez Clinical Nutrition Community Health Corporate Travel Manager [facility] [address], [place] [address] 45-13 documented in this encounter Plan of Treatment Upcoming Encounters Date Type Specialty Care Team Description 03/28/2023 Nutrition Services [facility] Nhi Shetty, RDN [address] [facility] [place] [address] 04/11/2023 Office Visit Pharmacy [facility] [address] [place] [address] 04/20/2023 Telemedicine [facility] Namita Zaldivar CRNP [address] [place] [address] Gavi Apple, Community Health Corporate Travel Manager [address] [place] [address] 05/04/2023 Home Visit [facility] Lucia Echevarria RN [address] [place] [address] 05/26/2023 Laboratory Laboratory Processing [facility], [facility] Mobile Home Draw [address] [place] [address] 05/26/2023 Office Visit Internal Medicine Liyah Oseguera MD [address] [place] [address] Health Maintenance Due Date Last Done Comments [...] 10/10/2017 LUNG CANCER SCREENING - USE SMARTSET [id number] Completed 12/08/2017 Influenza Vaccine (FLU shot) Completed [...] filedocumented as of this encounter Care Teams Station Baggage Agent Relationship Specialty Start Date End Date Liyah Oseguera MD [address] [place] [address] PCP - General Internal Medicine 03/25/17 documented as of this encounter
--- OUTSIDE RECORDS SUMMARY | 2023-06-02 11:17 | External Medical Summary | Summary of Care ---
Author Name Unknown Organization [facility] Address [address] [place] [address] Phone [phone] Care Team Providers Care Coding Specialist Name Role Phone Liyah Oseguera MD Primary Care Provider [phone] Encounter Details Date Type Department Care Team Description 03/09/2023 Telephone Care Coordination [address] [place] [address] Noemi Nvaa OSA Allergies No known active allergiesdocumented as of this encounter (statuses as of 03/09/2023) Medications Medication Sig Dispensed Refills Start Date [...] goal of less than 7.0% ([facility]) Inject 25 Units under the [...] as of this encounter (statuses as of 03/09/2023) Active Problems Problem Noted Date 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 03/03/2023 Last Assessment & Plan: Managed via [facility] for wound care Type 2 diabetes [...] as of this encounter (statuses as of 03/09/2023) Resolved Problems Problem Noted Date Resolved Date Acute respiratory failure with hypoxia 3 03/03/2023 Acquired absence of right leg below knee 023 03/03/2023 Alcohol dependence with withdrawal, unspecified 03/15/2018 03/15/2018 Body mass index (BMI) of 40.0 to 44.9 in adult 0 11/08/2017 12/20/2017 Overview: Per Obesity protocol #1 documented as of this encounter (statuses as of 03/09/2023) Immunizations Name Administration Dates Next Due Pneumococcal Conjugate Vacci ne, 20-valent ([id number]) 02/24/2023 Pneumococcal Polysaccharide PPV23 (Pneumovax) 05/04/2015 Seasonal [...] * Telephone Encounter - FLORA Rivera - 03/09/2023 10:52 AM EDT GAME TESTER NOTE: UTC, 2 phone rings and hangs up. documented in this encounter Plan of Treatment Upcoming Encounters Date Type Specialty Care Team Description 03/14/2023 Home Visit [facility] Lucia Echevarria RN [address] [place] [address] 03/21/2023 Nutrition Services [facility] Nhi Shetty, RDN [address] [facility] [address] 04/20/2023 Telemedicine [facility] Namita Zaldivar CRNP [address] [place] [address] Gavi Apple, Community Health Cardiothoracic Surgeon [address] [place] [address] 05/26/2023 Laboratory Laboratory Processing [facility], [facility] Mobile Home Draw [address] [place] [address] 05/26/2023 Office Visit Internal Medicine Liyah Oseguera MD [address] [place] [address] Health Maintenance Due Date Last Done Comments [...] 10/10/2017 LUNG CANCER SCREENING - USE SMARTSET 62998 Completed 12/08/2017 Influenza Vaccine (FLU shot) Completed [...] filedocumented as of this encounter Care Teams Coding Specialist Relationship Specialty Start Date End Date Liyah Oseguera MD [address] [facility] [place] [address] PCP - General Internal Medicine 03/25/17 documented as of this encounter
--- OUTSIDE RECORDS SUMMARY | 2023-06-02 11:17 | External Medical Summary | Summary of Care ---
Author Name Unknown Organization [facility] Address [address] [place] [address] Phone [phone] Care Team Providers Care Tetryl Screen Operator Name Role Phone Liyah Oseguera MD Primary Care Provider [phone] Reason for Visit * Reason Onset Date Comments [facility]: Maintenance 03/03/2023 Encounter Details Date Type Department Care Team Description 03/03/2023 Telephone [facility], [facility] [address] [facility] [place] [address] [facility], Nurse 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 for wound care Type 2 diabetes [...] - [facility] 6.5 (H) 03/15/2018 11:31 AM Acquired absence of right leg below knee 02/24/2023 Last Assessment & Plan: BKA 2014 Has prostesis Hypokalemia 05/10/2022 Phantom limb syndrome with pain [...] as of this encounter (statuses as of 03/03/2023) Resolved Problems Problem Noted Date Resolved Date Acute respiratory failure with hypoxia 3 03/03/2023 Acquired absence of right leg below knee 023 03/03/2023 Alcohol dependence with withdrawal, unspecified 03/15/2018 03/15/2018 Body mass index (BMI) of 40.0 to 44.9 in adult 0 11/08/2017 12/20/2017 Overview: Per Obesity protocol #1 documented as of this encounter (statuses as of 03/03/2023) Immunizations Name Administration Dates Next Due Pneumococcal Conjugate Vacci ne, 20-valent ([id number]) 02/24/2023 Pneumococcal Polysaccharide PPV23 (Pneumovax) 05/04/2015 Seasonal [...] encounter Miscellaneous Notes * Telephone Encounter - Felecia Méndez RN - 03/03/2023 4:38 PM EDT Patient called back he is aware of [facility] tomorrow Felecia Méndez RN, BSN [facility] president commercial bankFire Truck Driver documented in this encounter Plan of Treatment Upcoming Encounters Date Type Specialty Care Team Description 03/04/2023 Home Visit [facility] Lucia Echevarria RN [address] [place] [address] 03/14/2023 Home Visit [facility] Lucia Echevarria RN [address] [place] [address] 03/21/2023 Nutrition Services [facility] Nhi Shetty, RDN [address] [facility] [place] [address] 04/20/2023 Telemedicine [facility] Namita Zaldivar CRNP [address] [place] [address] Gavi Apple, Community [facility] Cra [address] [place] [address] 05/26/[address] [facility], [facility] Mobile Home Draw [address] [place] [address] 05/26/2023 Office Visit Internal Medicine Liyah Oseguera MD [address] [place] [address] Health Maintenance Due Date Last Done Comments [...] 10/10/2017 LUNG CANCER SCREENING - USE SMARTSET [id number] Completed 12/08/2017 Influenza Vaccine (FLU shot) Completed [...] filedocumented as of this encounter Care Teams Tetryl Screen Operator Relationship Specialty Start Date End Date Liyah Oseguera MD [address] [place] [address] PCP - General Internal Medicine 03/25/17 documented as of this encounter
--- OUTSIDE RECORDS SUMMARY | 2023-06-02 11:17 | External Medical Summary | Summary of Care ---
Author Name Unknown Organization [facility] Address [address] [place] [address] Phone [phone] Care Team Providers Care Help Desk Support Specialist Name Role Phone Liyah Oseguera MD Primary Care Provider [phone] Reason for Visit * Reason Onset Date Comments FYI 03/08/2023 Encounter Details Date Type Department Care Team Description 03/08/2023 Telephone General Internal Medicine [facility] [address] [place] [address] Liyah Oseguera MD [address] [facility] [place] [place] [address] FYI (/) Allergies No known active allergiesdocumented as of [...] 03/03/2023 Last Assessment & Plan: Managed via [facility] for wound care Type 2 diabetes mellitus with hemoglobin A1c goal of less than 7.0% 02/24/2023 Last Assessment & Plan: Insulin dependent Recent referral to [facility] for management Hemoglobin AIC Results: Lab Results Component Value Date/Time HEMOGLOBIN A1C - [facility] 17.2 (H) 02/24/2023 03:17 PM HEMOGLOBIN A1C [...] Next Due Pneumococcal Conjugate Vacci ne, 20-valent ([id number]) 02/24/2023 Pneumococcal Polysaccharide PPV23 (Pneumovax) 05/04/2015 Seasonal [...] Telephone Encounter - Liyah Oseguera MD - 03/09/2023 1:45 PM EDT Noted * Telephone Encounter - FLORA Quach - 03/08/2023 4:[address] [facility] states Pt is currently using triple antibiotic ointment and guaze for wound on right leg until supplies from [facility] arrive. Carlo also states Pt will be seen once per week for the next two weeks and order will be sent to clinic for PCP signature. documented in this encounter Plan of Treatment Upcoming Encounters Date Type Specialty Care Team Description 03/14/2023 Home Visit [facility] Lucia Echevarria RN [address] [place] [address] 03/21/2023 Nutrition Services [facility] Nhi Shetty, ERICN [address] [facility] [place] [address] 04/20/2023 Telemedicine [facility] Namita Zaldivar CRNP [address] [place] [address] Gavi Apple, Community [facility] Electric Frying Pan Repairer [address] [place] [address] 05/26/2023 Laboratory Laboratory Processing [facility], [facility] Mobile Home Draw [address] [place] [address] 05/26/2023 Office Visit Internal Medicine Liyah Oseguera MD [address] [place] [address] Health Maintenance Due Date Last Done Comments COVID-19 Vaccine (#1) 1962 DIABETES-EYE EXAM 1980 Cologuard 2007 Colonoscopy 2007 Colorectal Cancer Screening 2007 Fecal Occult Blood Test 2007 Sigmoidoscopy 2007 Zoster Vaccines (1 of 2) 2012 DISCUSS TOBACCO CESSATION (REFER TO SMARTSET #0239) 03/15/2019 03/15/2018 Depression Screening 06/16/2019 06/16/2018 Albumin/Creatinine Ratio 05/10/2023 05/10/2022 HbA1c 08/25/2023 02/24/2023, 04/21, 03/15/2018 Diabetic Foot Exam 02/25/2024 02/24/2023 GFR 02/25/2024 02/24/2023, 04/21, 11/13/2018, Additional history exists DTaP,Tdap,and Td Vaccines (2 - Td or Tdap) 03/25/2027 03/25/2017 Lipid Panel 05/10/2027 05/10/2022, 10/10/2017 LUNG CANCER SCREENING - USE SMARTSET [id number] Completed 12/08/2017 Influenza Vaccine (FLU shot) Completed [...] filedocumented as of this encounter Care Teams Help Desk Support Specialist Relationship Specialty Start Date End Date iLyah Oseguera MD [address] [place] [address] PCP - General Internal Medicine 03/25/17 documented as of this encounter
--- OUTSIDE RECORDS SUMMARY | 2023-06-02 11:17 | External Medical Summary | Summary of Care ---
Author Name Unknown Organization [facility] Address [address] [place] [address] Phone [phone] Care Team Providers Care Telephone Advice Nurse Name Role Phone Liyah Oseguera MD Primary Care Provider [phone] Reason for Visit * Reason Onset Date Comments Appointment 03/03/2023 Encounter Details Date Type Department Care Team Description 03/03/2023 Telephone [facility], [facility] [address] [place] [address] Services, Scheduling [address] [place] [address] Appointment (//) Allergies No known active allergiesdocumented as of [...] less than 7.0% ([facility]) Inject 25 Units under the skin in [...] 03/03/2023 Last Assessment & Plan: Managed via [facility] for wound care Type 2 diabetes mellitus with hemoglobin A1c goal of less than 7.0% 02/24/2023 Last Assessment & Plan: Insulin dependent Recent referral to [facility] for management Hemoglobin AIC Results: Lab [...] Next Due Pneumococcal Conjugate Vacci ne, 20-valent ([id number]) 02/24/2023 Pneumococcal Polysaccharide PPV23 (Pneumovax) 05/04/2015 Seasonal [...] Miscellaneous Notes * Telephone Encounter - FLORA Sellers - 03/03/2023 12:39 PM EDT Per Request via [facility] to schedule an acute appt today or tomorrow to help to instruct on insulin pen... Called pt unable to leave message vm box is full and tried calling pt's just kept ringing will try to call back later to advised I schedule appt on 03/04 at 12:30pm documented in this encounter Plan of Treatment Upcoming Encounters Date Type Specialty Care Team Description 03/04/2023 Home Visit [facility] Lucia Echevarria RN [address] [place] [address] 03/14/2023 Home Visit [facility] Lucia Echevarria RN [address] [place] [address] 03/21/2023 Nutrition Services [facility] Nhi Shetty, ERICN [address] [facility] [place] [address] 05/26/2023 Laboratory Laboratory Processing [facility] Mobile Home Draw [address] [place] [address] 05/26/2023 Office Visit Internal Medicine Liyah Oseguera MD [address] [place] [address] Health Maintenance Due Date Last Done Comments [...] 10/10/2017 LUNG CANCER SCREENING - USE SMARTSET [id number] Completed 12/08/2017 Influenza Vaccine (FLU shot) Completed [...] filedocumented as of this encounter Care Teams Telephone Advice Nurse Relationship Specialty Start Date End Date Liyah Oseguera MD [address] [place] [address] PCP - General Internal Medicine 03/25/17 documented as of this encounter
--- OUTSIDE RECORDS SUMMARY | 2023-06-02 11:17 | External Medical Summary | Summary of Care ---
Author Name Unknown Organization [facility] Address [address] [place] [address] Phone [phone] Care Team Providers Care Environmental Protection Inspector Name Role Phone Liyah Oseguera MD Primary Care Provider [phone] Reason for Visit * Reason Onset Date Comments Appointment 03/03/2023 Encounter Details Date Type Department Care Team Description 03/03/2023 Telephone [facility], [facility] [address] [place] [address] Services, Scheduling [address] [place] [address] Appointment (//) Allergies No known active allergiesdocumented [...] A1c goal of less than 7.0% ([facility]) Inject 25 Units under [...] 03/03/2023 Last Assessment & Plan: Managed via [facility] for wound care Type 2 diabetes mellitus with hemoglobin A1c goal of less than 7.0% 02/24/2023 Last Assessment & Plan: Insulin dependent Recent referral to [facility] for management Hemoglobin AIC [...] Next Due Pneumococcal Conjugate Vacci ne, 20-valent ([id number]) 02/24/2023 Pneumococcal Polysaccharide PPV23 (Pneumovax) 05/04/2015 Seasonal [...] Telephone Encounter - FLORA Sellers - 03/03/2023 4:30 PM EDT Called pt back to let him know of acute visit tomorrow was unable to leave message on his number vmbox is full... Called his 's number lmom to confirm if 03/04 at 12:30pm is a good date and time. documented in this encounter Plan of Treatment Upcoming Encounters Date Type Specialty Care Team Description 03/04/2023 Home Visit [facility] Lucia Echevarria RN [address] [address] 03/14/2023 Home Visit [facility] Lucia Echevarria RN [address] [address] 03/21/2023 Nutrition Services [facility] Nhi Shetty, RDN [address] [facility] [place] [address] 04/20/2023 Telemedicine [facility] Namita Zaldivar CRNP [address] [place] [address] Gavi Apple, Community Health Overlock Collar Setter [address] [place] [address] 05/26/2023 Laboratory Laboratory Processing [facility] Mobile Home Draw [address] [place] [address] 05/26/2023 Office Visit Internal Medicine Liyah Oseguera MD [address] [place] [address] Health Maintenance Due Date Last Done Comments COVID-19 Vaccine (#1) 1962 DIABETES-EYE EXAM 1980 Cologuard 2007 Colonoscopy 2007 Colorectal Cancer Screening 2007 Fecal Occult Blood Test 2007 Sigmoidoscopy 2007 Zoster Vaccines (1 of 2) 2012 DISCUSS TOBACCO CESSATION (REFER TO SMARTSET #3298) 03/15/2019 03/15/2018 Depression Screening 06/16/2019 06/16/2018 Albumin/Creatinine Ratio 05/10/2023 05/10/2022 HbA1c 08/25/2023 02/24/2023, 04/21, 03/15/2018 Diabetic Foot Exam 02/25/2024 02/24/2023 GFR 02/25/2024 02/24/2023, 04/21, 11/13/2018, Additional history exists DTaP,Tdap,and Td Vaccines (2 - Td or Tdap) 03/25/2027 03/25/2017 Lipid Panel 05/10/2027 05/10/2022, 10/10/2017 LUNG CANCER SCREENING - USE SMARTSET [id number] Completed 12/08/2017 Influenza Vaccine (FLU shot) Completed [...] filedocumented as of this encounter Care Teams Environmental Protection Inspector Relationship Specialty Start Date End Date Liyah Oseguera MD [address] [place] [address] PCP - General Internal Medicine 03/25/17 documented as of this encounter
--- OUTSIDE RECORDS SUMMARY | 2023-06-02 11:17 | External Medical Summary | Summary of Care ---
Author Name Unknown Organization [facility] Address [address] [place] [address] Phone [phone] Care Team Providers Care Polymer Chemist Name Role Phone Liyah Oseguera MD Primary Care Provider [phone] Reason for Visit * Reason Onset Date Comments Other 03/05/2023 Encounter Details Date Type Department Care Team Description 03/05/2023 Telephone General Internal Medicine [facility] [address] [facility] [place] [address] Liyah Oseguera MD 200 [facility] [place] [address] Other Allergies No known active allergiesdocumented as of this encounter (statuses as of 03/07/2023) Medications Medication Sig Dispensed Refills Start Date [...] goal of less than 7.0% ([facility]) Inject 25 Units under the [...] as of this encounter (statuses as of 03/07/2023) Active Problems Problem Noted Date 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 03/03/2023 Last Assessment & Plan: Managed via [facility] for wound care Type 2 diabetes mellitus with hemoglobin A1c goal of less than 7.0% 02/24/2023 Last Assessment & Plan: Insulin dependent Recent referral to [facility] for management Hemoglobin AIC Results: Lab [...] as of this encounter (statuses as of 03/07/2023) Resolved Problems Problem Noted Date Resolved Date Acute respiratory failure with hypoxia 3 03/03/2023 Acquired absence of right leg below knee 023 03/03/2023 Alcohol dependence with withdrawal, unspecified 03/15/2018 03/15/2018 Body mass index (BMI) of 40.0 to 44.9 in adult 0 11/08/2017 12/20/2017 Overview: Per Obesity protocol #1 documented as of this encounter (statuses as of 03/07/2023) Immunizations Name Administration Dates Next Due Pneumococcal Conjugate Vacci ne, 20-valent ([id number]) 02/24/2023 Pneumococcal Polysaccharide PPV23 (Pneumovax) 05/04/2015 Seasonal [...] encounter Miscellaneous Notes * Telephone Encounter - Shirley Pa LPN - 03/07/2023 3:51 PM EDT Order faxed to number provided today. * Telephone Encounter - Isable Chacon CPhT - 03/05/2023 9:46 AM EDT Lali calling from [employer] stating an order was faxed over for insulin needles on 02/15. Lali is asking for this order to be faxed back to [phone]. Please advise Thank you, Monika Chacon Foil Wrapper [employer] [facility] 03/05/2023,9:47 AM documented in this encounter Plan of Treatment Upcoming Encounters Date Type Specialty Care Team Description 03/14/2023 Home Visit [facility] Lucia Echevarria RN [address] [place] [address] 03/21/2023 Nutrition Services [facility] Nhi Shetty RDN [address] [facility] [place] [address] 04/20/2023 Telemedicine [facility] Namita Zaldivar CRNP [address] [place] [address] Gavi Apple, Community Health Chief Controller [address] [place] [address] 05/26/2023 Laboratory Laboratory Processing [facility] Mobile Home Draw [address] [place] [address] 05/26/2023 Office Visit Internal Medicine Liyah Oseguera MD [address] [place] [address] Health Maintenance Due Date Last Done Comments [...] 10/10/2017 LUNG CANCER SCREENING - USE SMARTSET [id number] Completed 12/08/2017 Influenza Vaccine (FLU shot) Completed [...] filedocumented as of this encounter Care Teams Polymer Chemist Relationship Specialty Start Date End Date Liyah Oseguera MD [address] [place] [address] PCP - General Internal Medicine 03/25/17 documented as of this encounter
--- OUTSIDE RECORDS SUMMARY | 2023-06-02 11:17 | External Medical Summary | Summary of Care ---
Author Name Unknown Organization [facility] Address [address] [place] [address] Phone [phone] Care Team Providers Care Medical Supervisor Name Role Phone Liyah Oseguera MD Primary Care Provider [phone] Reason for Visit * Reason Onset Date Comments Appointment 03/03/2023 Encounter Details Date Type Department Care Team Description 03/03/2023 Telephone [facility], [place] [facility] [address] [place] [address] Services, Scheduling [address] [place] [address] Appointment (//) Allergies No known active allergiesdocumented [...] 03/03/2023 Last Assessment & Plan: Managed via [facility] for wound care Type 2 diabetes mellitus with hemoglobin A1c goal of less than 7.0% 02/24/2023 Last Assessment & Plan: Insulin dependent Recent referral to [facility] for management Hemoglobin AIC Results: Lab [...] Next Due Pneumococcal Conjugate Vacci ne, 20-valent ([id number]) 02/24/2023 Pneumococcal Polysaccharide PPV23 (Pneumovax) 05/04/2015 Seasonal [...] Miscellaneous Notes * Telephone Encounter - FLORA Schultz - 03/03/2023 1:55 PM EDT Request to schedule an early Nov telemed again I found 04/20@130 and called but got vm with full mailbox so couldn't lmom documented in this encounter Plan of Treatment Upcoming Encounters Date Type Specialty Care Team Description 03/04/2023 Home Visit [facility] Lucia Echevarria RN [address] [place] [address] 03/14/2023 Home Visit [facility] Lucia Echevarria RN [address] [place] [address] 03/21/2023 Nutrition Services [facility] Nhi Shetty, RDN [address] [facility] [place] [address] 04/20/2023 Telemedicine [facility] Namita Zaldivar CRNP [address] [place] [address] Gavi Apple, Community Health Burlap Man [address] [place] [address] 05/26/2023 Laboratory Laboratory Processing [facility] Mobile Home Draw [address] [place] [address] 05/26/2023 Office Visit Internal Medicine Liyah Oseguera MD [address] [place] [address] Health Maintenance Due Date Last Done Comments COVID-19 Vaccine (#1) 1962 DIABETES-EYE EXAM 1980 Cologuard 2007 Colonoscopy 2007 Colorectal Cancer Screening 2007 Fecal Occult Blood Test 2007 Sigmoidoscopy 2007 Zoster Vaccines (1 of 2) 2012 DISCUSS TOBACCO CESSATION (REFER TO SMARTSET #5791) 03/15/2019 03/15/2018 Depression Screening 06/16/2019 06/16/2018 Albumin/Creatinine Ratio 05/10/2023 05/10/2022 HbA1c 08/25/2023 02/24/2023, 2 06/2021, 03/15/2018 Diabetic Foot Exam 02/25/2024 02/24/2023 GFR 02/25/2024 02/24/2023, 04/21, 11/13/2018, Additional history exists DTaP,Tdap,and Td Vaccines (2 - Td or Tdap) 03/25/2027 03/25/2017 Lipid Panel 05/10/2027 05/10/2022, 10/10/2017 LUNG CANCER SCREENING - USE SMARTSET [id number] Completed 12/08/2017 Influenza Vaccine (FLU shot) Completed [...] filedocumented as of this encounter Care Teams Medical Supervisor Relationship Specialty Start Date End Date Liyah Oseguera MD [address] [place] [address] PCP - General Internal Medicine 03/25/17 documented as of this encounter
--- OUTSIDE RECORDS SUMMARY | 2023-06-02 11:17 | External Medical Summary | Summary of Care ---
Author Name Unknown Organization [facility] Address [address] [place] [address] Phone [phone] Care Team Providers Care Engineer Intern Name Role Phone Liyah Oseguera MD Primary Care Provider [phone] Reason for Visit * Reason Comments [facility]: Maintenance Encounter Details Date Type Department Care Team Description 03/04/2023 Home Visit [facility], [facility] [address] [facility] [place] [address] Lucia Echevarria RN [address] [place] [place] [address] Type 2 diabetes mellitus with hemoglobin A1c goal of less than 7.0% ([facility])* Allergies No known active allergiesdocumented as of this encounter (statuses as of 03/04/2023) Medications Medication Sig Dispensed Refills Start Date [...] as of this encounter (statuses as of 03/04/2023) Active Problems Problem Noted Date 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 03/03/2023 Last Assessment & Plan: Managed via [facility] for wound care Type 2 diabetes mellitus with hemoglobin A1c goal of less than 7.0% 02/24/2023 Last Assessment & Plan: Insulin dependent Recent referral to [facility] for management Hemoglobin AIC Results: Lab [...] as of this encounter (statuses as of 03/04/2023) Resolved Problems Problem Noted Date Resolved Date Acute respiratory failure with hypoxia 3 03/03/2023 Acquired absence of right leg below knee 023 03/03/2023 Alcohol dependence with withdrawal, unspecified 03/15/2018 03/15/2018 Body mass index (BMI) of 40.0 to 44.9 in adult 0 11/08/2017 12/20/2017 Overview: Per Obesity protocol #1 documented as of this encounter (statuses as of 03/04/2023) Immunizations Name Administration Dates Next Due Pneumococcal Conjugate Vacci ne, 20-valent ([id number]) 02/24/2023 Pneumococcal Polysaccharide PPV23 (Pneumovax) 05/04/2015 Seasonal [...] Sign Reading Time Taken Comments Blood Pressure 118/76 03/04/2023 11:53 AM EDT Pulse 88 03/04/2023 11:53 AM EDT Temperature 36.1 C (96.9 F) 03/04/2023 11:53 AM E DT Respiratory Rate 18 03/04/2023 11:53 AM EDT Oxygen Saturation 98% 03/04/2023 11:53 AM EDT Inhaled Oxygen Concentration - - Weight - - Height - - Body Mass Index - - documented in this encounter Progress Notes * Lucia Ecehvarria RN - 03/04/2023 8:17 AM EDT [facility] [employer] Intern NAZARIO Visit Date: 03/04/2023 Time: 11:17 AM Name: Umair Harrison : 1960 Current Concerns: Pt seen for NAZARIO #4 and to assist with insulin teaching Admitted to [facility] 02/11 - 02/18/23 Dx: Hyperosmolar hyperglycemic State, DM, alcohol abuse, recurrent pancreatitis, HTN, hyperlipidemia, has right BKA Blood sugar was 1819 upon arrival to ED Pt reports he has insulin pens and knows how to use them but does not have the needles for it Novofine needles were called in to [facility] yesterday Pt called and confirmed that they are there and will cost $3 but pt does not have the money to buy them Nurse picked up for pt today Will refer to [facility] for resources for help with payment of meds Blood sugar this am - 222 150 and 282 yesterday Have been ranging 112 - 282 this week Has been using insulin vials and syringes of Lantus 25 units daily - has not been using the novologbecause did not have the needles for the pen [place] obtained for pt and teach back with return demo done. Physical Exam: BP 118/76 | Pulse 88 | Temp 36.1 C (96.9 F) | Resp 18 | SpO2 98% Pain 0 Physical Exam Constitutional: General: He is not in acute distress. Cardiovascular: Rate and Rhythm: Normal rate and regular rhythm. Pulses: Normal pulses. Heart sounds: Normal heart sounds. Pulmonary: Effort: Pulmonary effort is normal. Breath sounds: Normal breath sounds. Abdominal: General: Bowel sounds are normal. Palpations: Abdomen is soft. Musculoskeletal: Comments: Right BKA Skin: General: Skin is warm and dry. Neurological: Mental Status: He is alert and oriented to person, place, and time. Problems/Symptoms: Review of Systems Constitutional: Negative. HENT: Negative. Eyes: Negative. Respiratory: Negative. Endocrine: Negative. Genitourinary: Negative. Musculoskeletal: Positive for gait problem. Skin: Positive for wound (right BKA - managed by HH - dsg intact). Hematological: Negative. Psychiatric/Behavioral: Negative. Medication Reconciliation: (See medication list) Does patient take medications as ordered: No Patient cannot afford medications. Patient Well Being: PHQ2/9: No questionnaires available. No change in living situation Denies falls MAH-10 Completed this Visit: No. Routine visit and No falls since last visit Advanced Care Planning: No documentation, Acp in progress. Patient's Goals of Care: Stay in apartment Stay out of hospital Reinforcement/Education: Educated on home safety: Create a fall [...] exercises that will be right for you. DIABETES: -Blood sugar testing schedule: Twice a [...] a day 5 servings fruit/vegetable per day Reinforced safety education and fall prevention. and Reinforced medication regimen. Timing., Dosing., and Purspose. Treatment/Plan: Continue meds as prescribed/reviewed Check blood sugars twice a day Fall precautions - use walker at all times Keep all appts and attend F/u with [facility] CCD diet [facility] referral submitted to help with financial resources Home Interventions Provided: Home Intervention: Other; eval Reinforced current Plan of Care, including self-management and medication regimen Patient's 'Red Flags': Blood sugar <70 or >300 Unable to walk Blurred vision Patient Needs to Remember: Call [facility] at with any new or worsening health concerns or problems, red flag symptoms. Referrals Needed: [facility] Follow Up: Is there cellular connectivity/connectivity in the home? Yes Does the patient have internet in the home? Yes Patient encouraged to call the intake phone number for all urgent but not emergent issues. Is the patient new to [facility] within the last 30 days? Yes, Is this a Transitions of Care visit? Yes, this is the 2nd visit or later, Yes cellular connectivity. Was their Readmission Risk Score less than 18%? Yes Does the patient have any active signs of an exacerbation? No Has the patient had any ED visits since being discharged? No, Please forward to [facility] Up Person for telehealth scheduling, and indicate appropriate week of Transition of Care. Provider is in agreement with Plan of Care: Yes Scheduled to follow up with patient in 10 days. Lucia Echevarria RN 03/04/2023 11:17 AM documented in this encounter Plan of Treatment Upcoming Encounters Date Type Specialty Care Team Description 03/14/2023 Home Visit [facility] Lucia Echevarria RN [address] [place] [address] 03/21/2023 Nutrition Services [facility] Nhi Shetty, RDN [address] [facility] [place] [address] 04/20/2023 Telemedicine [facility] Namita Zaldivar CRNP [address] [place] [address] Gavi Apple, [facility] [address] [place] [address] 05/26/2023 Laboratory Laboratory Processing [facility] Draw [address] [place] [address] 05/26/2023 Office Visit Internal Medicine Liyah Oseguera MD [address] [place] [address] Health Maintenance Due Date Last Done Comments [...] 10/10/2017 LUNG CANCER SCREENING - USE SMARTSET 92158 Completed 12/08/2017 Influenza Vaccine (FLU shot) Completed [...] Primary documented in this encounter Care Teams Engineer Intern Relationship Specialty Start Date End Date Liyah Oseguera MD [address] [place] [address] PCP - General Internal Medicine 03/25/17 documented as of this encounter
--- OUTSIDE RECORDS SUMMARY | 2023-06-02 11:17 | External Medical Summary | Summary of Care ---
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); Type 2 diabetes mellitus with hemoglobin A1c goal of less than 7.0% (HCC); Mild episode of recurrent major depressive disorder (HCC); Phantom limb syndrome with pain (HCC); Advanced care planning/counseling discussion Allergies No known active allergiesdocumented as of this encounter (statuses as of 03/03/2023) Medications Medication Sig Dispensed Refills Start Date End Date Status polyethylene glycol 3350 (MIRALAX) 255 gram powderIndications: Other constipation Take 17 g by mouth as [...] 20 MG Oral Capsule Delayed Release Particles (duloxetine)Indica tions:MAYELA (generalized anxiety disorder) Take 1 Capsule (20 mg) by mouth in the morning. Do not cut, crush or chew. 30 Capsule 5 05/10/2022 Active metFORMIN HCl 500 MG Oral Tablet (Glucophage)Indica tions:Type 2 diabetes mellitus with hemoglobin A1c goal of less than 7.0% (HCC) Take 1 Tablet (500 mg) by mouth 2 times a day with morning and evening meals. 60 Tablet 5 05/12/2022 Active Insulin Glargine Solostar 100 UNIT/ML Subcutaneous Solution Pen-injectorIndica tions:Type 2 diabetes mellitus with hemoglobin A1c goal of less than 7.0% (HCC) Inject 25 Units under the skin in the morning. If fasting sugar is > 125 for 3 days then increase by 2 units and continue. 3 Each 5 02/24/2023 Active Potassium Chloride 20 MEQ Oral PacketIndications: Hypokalemia Take 20 mEq by mouth in the morning. 90 Packet 3 02/25/2023 Active Thiamine HCl 100 MG Oral Tablet (vitamin B-1)Indications:Al cohol abuse Take 1 Tablet by mouth in the morning. 90 Tablet 3 02/25/2023 Active Magnesium Oxide -Mg Supplement 400 (240 Mg) MG Oral Tablet (Mag-Ox)Indication s:Hypokalemia Take 1 Tablet by mouth in the morning. In the morning.. 90 Tablet 3 02/25/2023 Active Folic Acid 1 MG Oral TabletIndications: Alcohol abuse Take 1 Tablet by mouth in [...] with flexpen 100 Each 3 03/03/2023 Active Albuterol Sulfate HFA 108 (90 Base) MCG/ACT Inhalation Aerosol SolutionIndication s:Cough Inhale 2 Puffs by mouth every 4 hours as needed for Wheezing. 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 03/03/2023 Last Assessment & Plan: Managed via [facility] for wound care Type 2 diabetes mellitus with hemoglobin A1c goal of less than 7.0% 02/24/2023 Last Assessment & Plan: Insulin dependent Recent referral to [facility] for management Hemoglobin AIC Results: Lab Results Component Value Date/Time HEMOGLOBIN A1C - [facility] 17.2 (H) 02/24/2023 03:17 PM HEMOGLOBIN A1C - [facility] 9.5 (H) 05/10/2022 12:00 PM HEMOGLOBIN A1C - [facility] 6.5 (H) 03/15/2018 11:31 AM Acquired absence of right leg below knee 02/24/2023 Last Assessment & Plan: BKA 2013 Has prostesis Hypokalemia 05/10/2022 Phantom limb syndrome [...] Next Due Pneumococcal Conjugate Vacci ne, 20-valent ([id number]) 02/24/2023 Pneumococcal Polysaccharide PPV23 (Pneumovax) 05/04/2015 Seasonal [...] Sign Reading Time Taken Comments Blood Pressure 120/80 03/03/2023 11:22 AM EDT Pulse 87 03/03/2023 11:22 AM EDT Temperature 36.9 C (98.4 F) 03/03/2023 11:22 AM E DT Respiratory Rate 18 03/03/2023 11:22 AM EDT Oxygen Saturation 97% 03/03/2023 11:22 AM EDT Inhaled Oxygen Concentration - - Weight - - Height - - Body Mass Index - - documented in this encounter Progress Notes * Gavi Apple - 03/03/2023 11:21 AM EDT Community Health Tax Consultant Telephone Visit Date: 03/03/2023 Time: 11:21 AM Name: Umair Harrison : 1960 Source of Information: Patient COVID-19 screening completed: Yes Vitals: Vital signs completed: Yes, vital signs within normal range. BP 120/80 (BP Site: Left Arm, BP Position: Sitting, BP Cuff Size: Regular) | Pulse 87 | Temp 36.9 C (98.4 F) (Infrared ) | Resp 18 | SpO2 97% Condition Changes: Changes in health or social status since last visit: sugars appear to be out of control The patient has new concerns since last visit: No Progress towards goals since last visit: See above Medications: Medication review completed? Yes, no gaps identified Does the patient have barriers to medication adherence? No. Symptoms Surveys and Evaluations: Last flowsheet values for [facility]: Age 65+: 0 (03/03/2023 11:00 AM) Diagnosis (3 or more co-existing): 1 (03/03/2023 11:00 AM) Prior history of falls within 3 months: 0 (03/03/2023 11:00 AM) Incontinence: 0 (03/03/2023 11:00 AM) Visual impairment: 1 (03/03/2023 11:00 AM) Impaired functional mobility: 1 (03/03/2023 11:00 AM) Environmental hazards: 0 (03/03/2023 11:00 AM) Poly Pharmacy (4 or more prescriptions - any type): 1 (03/03/2023 11:00 AM) Pain affecting level of function: 0 (03/03/2023 11:00 AM) Cognitive impairment: 0 (03/03/2023 11:00 AM) Score - a score of 4 or more is considered at risk for fallin (03/03/2023 11:00 AM) Social Determinants of Health: Safety: Patient reports feeling unsafe in their home: No. Housing: Patient reports they are at risk of becoming homeless: No. Home/Living situation: Patient lives alone: Yes Bathroom is located same floor Bedroom is located same floor Patient has to go up and down steps: No. Patient receives help from family/friends/neighbors/community agencies etc.: Yes. Type of help the patient receives: brother, [place] transportation Patient perceives the help they receive as adequate: Yes. DME: DME used: Walker Patient has concerns related to DME: No. Financial: Patient reports experiencing a financial hardship: No. Employment: Patient is unemployed or without regular income: No. Utilities: Patient reports difficulty paying heating, water, or electric bill: No. Transportation: Patient drives: No. Does anyone drive patient to appointments and shopping? Yes. Patient receives community or public transportation assistance: Yes. Specify agency: [facility] [employer] van Patient reports trouble getting a ride to medical visits or work: Never True. Clothing: Patient reports being unable to get clothing when it was really needed: No. Food insecurity: Patient has concerns surrounding meals/food: Yes. Specify plan/referrals/care team members notified: Receives meals on wheels Within the past 12 months patient worried [...] Reinforced care plan established by care team No care plan was identified at this time Reinforced patient's three red flags by the care team No red flags were identified at this time Follow Up: Patient encouraged to call the intake phone number for all urgent but not emergent issues. Scheduled to follow up with patient as per scheduled. Gavi Apple [facility] Health Tax Consultant 03/03/2023 11:21 AM * BRENTON Sutton - 03/03/2023 11:00 AM EDT Images from the original note were not included. 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 ([facility]) Assessment & Plan: Managed via [facility] for wound care #3 Type 2 diabetes mellitus with hemoglobin A1c goal of less than 7.0% ([facility]) Assessment & Plan: Insulin dependent Recent referral to [facility] for management Hemoglobin AIC Results: Lab Results Component Value Date/Time HEMOGLOBIN A1C - [facility] 17.2 (H) 02/24/2023 03:17 PM HEMOGLOBIN A1C - [facility] 9.5 (H) 05/10/2022 12:00 PM HEMOGLOBIN A1C - [facility] 6.5 (H) 03/15/2018 11:31 AM Orders: - [facility] Internal Communication OP #4 Mild episode of recurrent major depressive disorder (HCC) Assessment & Plan: Controlled with duloxetine #5 Phantom limb syndrome with pain ([facility]) Assessment & Plan: Previously on gabaoentin- no longer taking feels controlled without medication #6 Advanced care planning/counseling discussion Additional Medical Decision Making: new enrollment completed- recent hospitalization for hyperglycemia- insulin instructions reviewed and direction written out for patient nd left in home- discussioncompleted on complications of uncontrolled DM leading up to - patient willing to change dietary habits and work on medication adherence Referral placed for [facility] livestock handler- patient willing to work on diet changes for DM management- offered [facility]- closest one is 45 minutes from patient he is unable to get there. After completion of visit I received TT from [facility] stating the patient does not know how to use of inject the pens and he does not hav needles for them- TT to schedulers to set upAcute RN visit today or yoli for insulin instructions - needles sent to pharmacy . Check-out note: Please help in scheduling the recommended follow up as listed below: [facility] (see care team) within approx 6-9 weeks for Telemedicine Visit Scheduled appointments in the next 60 days: Future Appointments-next 60 days Date/Time Provider Specialty Dept Phone 03/03/2023 11:00 AM Gavi Apple, Community Health Tax Consultant; BRENTON Sutton [email or web address] [phone] 03/14/2023 5:30 PM Lucia Echevarria RN [facility] [phone] 05/26/2023 8:30 AM [facility] Mobile Home Draw [facility] Laboratory Processing [phone] 05/26/2023 1:00 PM (Arrive by 12:45 PM) Liyah Oseguera MD Internal Medicine [phone] Subjective Subjective Is this a Telemedicine Visit? Yes, Patient location: HOME. I was not in a hospital or clinic location. After connecting through televideo, patient was verified with two unique identifiers. Patient (or authorized legal telemarketing sales representative) was then informed that this was a Telemedicine visit and being conducted confidentially over secure lines. Methods to assure confidentiality were taken. Patient acknowledged consent and understanding of privacy and security of the Telemedicine visit. The patient agreed to participate. Reason For [facility] Visit: Enrollment Current Concerns: Umair Harrison is a 62 year old male seen today for a [facility] provider visit. Admitted to [facility] 02/11 - 02/18/23 Dx: Hyperosmolar hyperglycemic State, DM, alcohol abuse, recurrent pancreatitis, HTN, hyperlipidemia, has right BKA Blood sugar was 1819 upon arrival to ED 02/25- RN Enrollment- referred to [facility] for DM management- [facility] wound management as open area on right BKA stump from prosthesis. Nurse was in today and recommends Optifoam dressing TE sent to PCP for order Today's concerns are: States doing good - relates recent hospitalization to sugar going up - legs were shaking [id number] Picked up insulin - ate today but did not use insulin with meal - has questions on the 2 different insulin pens he picked up - reviewed instructions - patient not able to see print on prescription Smokes - continues 1-2 cigarettes a day Alcohol-- every other day continues 1-2 beers - breathing is at baseline - denies CP, dizziness - denies N/V/D - wears prosthetic on RLE - meds via bottles - eats cereal all day- trix- captain crunch- whole milk Eats cakes from MOW tray Drinks water throughout the day and sometimes juice - listed as emerg contact-- she Has grown children Additional Review of Systems Constitutional: Negative for activity change (walker for ambualtion) and appetite change (MOW able to reheat meals). Respiratory: Negative for cough and shortness of breath. Cardiovascular: Negative for chest pain and palpitations. Gastrointestinal: Negative for diarrhea, nausea and vomiting. Genitourinary: Negative for difficulty urinating, dysuria and hematuria. Musculoskeletal: Intermittent phantom limb pain- previously on gabapentin but did not feel needed anymore Skin: Positive for wound (right stump wound healing). Neurological: Negative for speech difficulty. Psychiatric/Behavioral: Negative for confusion. Objective Objective Vitals: 03/03/23 1122 Temp: 36.9 C (98.4 F) Pulse: 87 Resp: 18 SpO2: 97% BP: 120/80 BP Readings from Last 3 Encounters: 03/03/23 120/80 02/25/23 114/62 02/24/23 126/80 Wt Readings from Last 3 Encounters: 02/24/23 73.4 kg (161 lb 14.4 oz) 05/10/22 80.3 kg (177 lb 1.6 oz) 06/16/18 101.6 kg (224 lb) Last Weights: Wt Readings from Last 3 Encounters: 02/24/23 73.4 kg (161 lb 14.4 oz) 05/10/22 80.3 kg (177 lb 1.6 oz) 06/16/18 101.6 kg (224 lb) Last BPs: BP Readings from Last 4 Encounters: 03/03/23 120/80 02/25/23 114/62 02/24/23 126/80 05/10/22 122/72 Physical Exam Constitutional: General: He is not in acute distress. Cardiovascular: Rate and Rhythm: Normal rate and regular rhythm. Pulmonary: Effort: Pulmonary effort is normal. Breath sounds: Normal breath sounds. No wheezing, rhonchi or rales. Musculoskeletal: Comments: R BKA Skin: General: Skin is warm and dry. Neurological: Mental Status: He is alert and oriented to person, place, and time. Psychiatric: Mood and Affect: Mood normal. Behavior: Behavior normal. Lab Review: I have reviewed the following results: Imaging results in the last 6 months No imaging results in the last 6 months BMP results Recent Labs Units 02/24/23 1517 05/10/22 1200 SODIUM - [facility] mmol/L 135 137 POTASSIUM - [facility] mmol/L 4.2 4.4 CHLORIDE - [facility] mmol/L 99 96* CO2 - [facility] mmol/L 25 26 CREATININE - [facility] mg/dL 0.7 0.7 BUN - [facility] mg/dL 8 8 CBC results Recent Labs Units 02/24/23 1517 05/10/22 1200 WBC AUTO - [facility] K/uL 8.24 5.77 HGB - [facility] g/dL 9.6* 12.6* HCT - [facility] % 29.5* 38.3* PLATELET AUTO - [facility] K/uL 405* 344 HbA1c results Recent Labs Units 02/24/23 1517 05/10/22 1200 HEMOGLOBIN A1C - [facility] % 17.2* 9.5* TSH results No results for input(s): TSH in the last 35660 hours. Medication Review "Bottles Out" medication review performed today and medication list in EMR updated BRENTON Sutton 8:54 AM *Communication sent to PCP (via autofax if non-[facility]), [facility] Care Team members,relevant Specialty Care Physicians* documented in this encounter Miscellaneous Notes * Assessment & Plan Note - BRENTON Sutton - 03/03/2023 11:54 AM EDT Associated Problem(s): Mild episode of recurrent major depressive disorder (HCC) Controlled with duloxetine * Assessment & Plan Note - BRENTON Sutton - 03/03/2023 11:54 AM EDT Associated Problem(s): Phantom limb syndrome with pain (HCC) Previously on gabaoentin- no longer taking feels controlled without medication * ACP (Advance Care Planning) - BRENTON Sutton - 03/03/2023 11:48 AM EDT Images from the original note were not included. Patient-centered Communication 03/03/2023 Location: Home Individual(s) present for conversation: Patient Decisions Synopsis SmartLink Most Recent Value Past ~10 years 03/03/2023 11:52 Decisions CPR decision: Patient chooses CPR 03/03/2023 Patient chooses CPR Intubation/Mechanical Ventilation decision: Patient chooses Intubation/mechanical ventilation 03/03/2023 Patient chooses Intubation/mechanical ventilation Additional Comments Synopsis SmartLink Most Recent Value Past ~10 years 03/03/2023 11:52 Additional Comments Additional Comments: full code- has - has adult children- no AD/LW in place 03/03/2023 full code- has - has adult children- no AD/LW in place Discerning What Matters Most to the Patient: Synopsis SmartLink Most Recent Value Past ~10 years 03/03/2023 11:48 Discerning What Matters Most to the Patient In their own words, patient's UNDERSTANDING of their illness is: my sugars get high- 03/03/2023 my sugars get high- Was PROGNOSIS discussed? Yes 03/03/2023 Yes Prognosis was discussed today as likely to live: Other, please comment if DM does not get under control patient will 03/03/2023 Other, please comment if DM does not get under control patient will Progression of illness described as: Other, please comment depends on patient willingness to change eating habits and medication adhernce 03/03/2023 Other, please comment depends on patient willingness to change eating habits and medication adhernce The patient's HOPES are: Maintain current functional abilities 03/03/2023 Maintain current functional abilities Source: Content from Respecting Choices Program Aligning Care With What Matters Most: [email or web address] Most Recent Value Past ~10 years 03/03/2023 11:52 Aligning Care With What Matters Most Interventions/Choices: CPR;Intubation/mechanical ventilation 03/03/2023 CPR;Intubation/mechanical ventilation Rationale for Decisions BRENTON Sutton * Assessment & Plan Note - RBENTON Sutton - 03/03/2023 11:47 AM EDT Associated Problem(s): Acquired absence of right leg below knee (HCC) BKA 2014 Has prostesis * Assessment & Plan Note - BRENTON Sutton - 03/03/2023 11:47 AM EDT Associated Problem(s): 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) Managed via [facility] for wound care * Assessment & Plan Note - BRENTON Sutton - 03/03/2023 10:45 AM EDT Associated Problem(s): Type 2 diabetes mellitus with hemoglobin A1c goal of less than 7.0% (HCC) Insulin dependent Recent referral to [facility] for management Hemoglobin AIC Results: Lab Results Component Value Date/Time HEMOGLOBIN A1C - [facility] 17.2 (H) 02/24/2023 03:17 PM HEMOGLOBIN A1C - [facility] 9.5 (H) 05/10/2022 12:00 PM HEMOGLOBIN A1C - [facility] 6.5 (H) 03/15/2018 11:31 AM * Assessment & Plan Note - BRENTON Sutton - 03/03/2023 10:44 AM EDT Associated Problem(s): HTN, goal below 140/90 Controlled with BB daily BP Readings from Last 4 Encounters: 02/25/23 114/62 02/24/23 126/80 05/10/22 122/72 06/16/18 122/76 documented in this encounter Plan of Treatment Upcoming Encounters Date Type Specialty Care Team Description 03/04/2023 Home Visit [facility] Lucia Echevarria RN [address] [place] [address] 03/14/2023 Home Visit [facility] Lucia Echevarria RN [address] [place] [address] 03/21/2023 Nutrition Services [facility] Nhi Shetty, RDN [address] [place] [address] 05/26/2023 Laboratory Laboratory Processing Gm, [facility] Mobile Home Draw [address] [place], [place] [address] 05/26/2023 Office Visit Internal Medicine Liyah Oseguera MD [address] [place] [address] Health Maintenance Due Date Last Done Comments COVID-19 Vaccine (#1) 1960 DIABETES-EYE EXAM 1980 Cologuard 2007 Colonoscopy 2007 Colorectal Cancer Screening 2007 Fecal Occult Blood Test 2007 Sigmoidoscopy 2007 Zoster Vaccines (1 of 2) 2012 DISCUSS TOBACCO CESSATION (REFER TO SMARTSET #3336) 03/15/2019 03/15/2018 Depression Screening 06/16/2019 06/16/2018 Albumin/Creatinine Ratio 05/10/2023 05/10/2022 HbA1c 08/25/2023 02/24/2023, 04/21, 03/15/2018 Diabetic Foot Exam 02/25/2024 02/24/2023 GFR 02/25/2024 02/24/2023, 04/21, 11/13/2018, Additional history exists DTaP,Tdap,and Td Vaccines (2 - Td or Tdap) 03/25/2027 03/25/2017 Lipid Panel 05/10/2027 05/10/2022, 10/10/2017 LUNG CANCER SCREENING - USE SMARTSET 83628 Completed 12/08/2017 Influenza Vaccine (FLU shot) Completed [...] goal below 140/90- Primary Unspecified essential hypertension 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
--- OUTSIDE RECORDS SUMMARY | 2023-06-02 11:17 | External Medical Summary | Summary of Care ---
Author Name Unknown Organization [facility] Address [address] [place] [address] Phone [phone] Care Team Providers Care Senior Business Process Analyst Name Role Phone Liyah Oseguera MD Primary Care Provider Reason for Visit * Reason Onset Date Comments Other 03/05/2023 Encounter Details Date Type Department Care Team Description 03/05/2023 Telephone General Internal Medicine [facility] [address] [facility] [address] Liyah Oseguera MD [address] [facility] [place] [address] Other Allergies No known active allergiesdocumented as of this encounter (statuses as of 03/05/2023) Medications Medication Sig Dispensed Refills Start Date [...] of less than 7.0% ([facility]) Inject 25 Units under the [...] as of this encounter (statuses as of 03/05/2023) Active Problems Problem Noted Date 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 03/03/2023 Last Assessment & Plan: Managed via [facility] for wound care Type 2 diabetes mellitus with hemoglobin A1c goal of less than 7.0% 02/24/2023 Last Assessment & Plan: Insulin dependent Recent referral to [facility] for management Hemoglobin AIC Results: [...] as of this encounter (statuses as of 03/05/2023) Resolved Problems Problem Noted Date Resolved Date Acute respiratory failure with hypoxia 3 03/03/2023 Acquired absence of right leg below knee 023 03/03/2023 Alcohol dependence with withdrawal, unspecified 03/15/2018 03/15/2018 Body mass index (BMI) of 40.0 to 44.9 in adult 0 11/08/2017 12/20/2017 Overview: Per Obesity protocol #1 documented as of this encounter (statuses as of 03/05/2023) Immunizations Name Administration Dates Next Due Pneumococcal Conjugate Vacci ne, 20-valent ([id number]) 02/24/2023 Pneumococcal Polysaccharide PPV23 (Pneumovax) 05/04/2015 Seasonal [...] encounter Miscellaneous Notes * Telephone Encounter - Isabel Chacon CPhT - 03/05/2023 9:46 AM EDT Lali calling from [facility] [employer] stating an order was faxed over for insulin needles on 02/15. Lali is asking for this order to be faxed back to [phone]. Please advise Thank you, Monika Chacon Unemployment Insurance Hearing Officer I [facility] (Formerly Telepharmacy) 03/05/2023,9:47 AM documented in this encounter Plan of Treatment Upcoming Encounters Date Type Specialty Care Team Description 03/14/2023 Home Visit [facility] Lucia Echevarria RN [address] [place] [address] 03/21/2023 Nutrition Services [facility] Nhi Shetty, RDN [address] [facility] [place] [address] 04/20/2023 Telemedicine [facility] Namita Zaldivar CRNP [address] [place] [address] Gavi Apple, Community Health Commercial Lending Assistant [address] [place] [address] 05/26/2023 Laboratory Laboratory Processing [facility] Mobile Home Draw [address] [place] [address] 05/26/2023 Office Visit Internal Medicine Liyah Oseguera MD [address] [place] [address] Health Maintenance Due Date Last Done Comments COVID-19 Vaccine (#1) 1960 DIABETES-EYE EXAM 1980 Cologuard 2007 Colonoscopy 2007 Colorectal Cancer Screening 2007 Fecal Occult Blood Test 2007 Sigmoidoscopy 2007 Zoster Vaccines (1 of 2) 2012 DISCUSS TOBACCO CESSATION (REFER TO SMARTSET #9960) 03/15/2019 03/15/2018 Depression Screening 06/16/2019 06/16/2018 Albumin/Creatinine Ratio 05/10/2023 05/10/2022 HbA1c 08/25/2023 02/24/2023, 04/21, 03/15/2018 Diabetic Foot Exam 02/25/2024 02/24/2023 GFR 02/25/2024 02/24/2023, 04/21, 11/13/2018, Additional history exists DTaP,Tdap,and Td Vaccines (2 - Td or Tdap) 03/25/2027 03/25/2017 Lipid Panel 05/10/2027 05/10/2022, 10/10/2017 LUNG CANCER SCREENING - USE SMARTSET [id number] Completed 12/08/2017 Influenza Vaccine (FLU shot) Completed [...] as of this encounter Care Teams Senior Business Process Analyst Relationship Specialty Start Date End Date Liyah Oseguera MD [address] [place] [address] [phone] PCP - General Internal Medicine 03/25/17 documented as of this encounter
--- OUTSIDE RECORDS SUMMARY | 2023-06-02 11:17 | External Medical Summary | Summary of Care ---
Author Name Unknown Organization [facility] Address [address] [place] [address] Phone [phone] Care Team Providers Care Supervisor Tunnel Heading Name Role Phone Liyah Oseguera MD Primary Care Provider [phone] Reason for Visit * Reason Onset Date Comments Medication Question 03/10/2023 Test strips. Encounter Details Date Type Department Care Team Description 03/10/20[facility] [address] Liyah Oseguera MD [address] [place], [place] [id number] Medication Question (Test strips. ) Allergies No [...] Last Assessment & Plan: Managed via [facility] for wound care Type 2 diabetes mellitus with hemoglobin A1c goal of less than 7.0% 02/24/2023 Last Assessment & Plan: Insulin dependent Recent referral to [facility] for management Hemoglobin AIC Results: [...] Next Due Pneumococcal Conjugate Vacci ne, 20-valent ([id number]) 02/24/2023 Pneumococcal Polysaccharide PPV23 (Pneumovax) 05/04/2015 Seasonal [...] Ian call back number(OFFICE NUMBER FOR ): [phone] Reason for call: Pt is asking for more test strips. Pt does have a New DM appt with [facility] on Wednesday 03/14. He stated he does not have enough test strips to last until then. Most likely will be out of test strips on 03/11. Please send scrip to [address] Thank you, Aimee Gonsalez Breastfeeding Educator [facility] ([facility]) (Formerly Telepharmacy) 03/10/2023, 8:46 AM documented in this encounter Plan of Treatment Upcoming Encounters Date Type Specialty Care Team Description 03/14/2023 [facility] Visit [facility] [address] [facility] [address] 03/14/2023 Home Visit [facility] Lucia Echevarria RN [address] [place] [address] 03/21/2023 Nutrition Services [facility] Nhi Shetty, RDN [address] [facility] [place] [address] 04/20/2023 Telemedicine [facility] Namita Zaldivar, [place] [address] [place] [address] Gavi Apple, Community Health Head Of Insight [address] [place] [address] 05/26/2023 Laboratory Laboratory Processing [facility], [facility] Mobile Home Draw [address] [place] [address] 05/26/2023 Office Visit Internal Medicine Liyah Oseguera MD [address] [place] [address] Health Maintenance Due Date Last Done Comments COVID-19 Vaccine (#1) 1962 DIABETES-EYE EXAM 1980 Cologuard 2007 Colonoscopy 2007 Colorectal Cancer Screening 2007 Fecal Occult Blood Test 2007 Sigmoidoscopy 2007 Zoster Vaccines (1 of 2) 2012 DISCUSS TOBACCO CESSATION (REFER TO SMARTSET #6618) 03/15/2019 03/15/2018 Depression Screening 06/16/2019 06/16/2018 Albumin/Creatinine Ratio 05/10/2023 05/10/2022 HbA1c 08/25/2023 02/24/2023, 04/21, 03/15/2018 Diabetic Foot Exam 02/25/2024 02/24/2023 GFR 02/25/2024 02/24/2023, 04/21, 11/13/2018, Additional history exists DTaP,Tdap,and Td Vaccines (2 - Td or Tdap) 03/25/2027 03/25/2017 Lipid Panel 05/10/2027 05/10/2022, 10/10/2017 LUNG CANCER SCREENING - USE SMARTSET [id number] Completed 12/08/2017 Influenza Vaccine (FLU shot) Completed [...] filedocumented as of this encounter Care Teams Supervisor Tunnel Heading Relationship Specialty Start Date End Date Liyah Oseguera MD [address] [facility] [place] [address] PCP - General Internal Medicine 03/25/17 documented as of this encounter
--- OUTSIDE RECORDS SUMMARY | 2023-06-02 11:17 | External Medical Summary | Summary of Care ---
Author Name Unknown Organization [facility] Address [address] [place] [address] Phone [phone] Care Team Providers Care Property Specialist Name Role Phone Liyah Oseguera MD Primary Care Provider Encounter Details Date Type Department Care Team Description 03/07/2023 Telephone Care Coordination [address] [place] [address] Noemi Nava OSA Allergies No [...] & Plan: Managed via [facility] for wound care Type 2 [...] Next Due Pneumococcal Conjugate Vacci ne, 20-valent ([id number]) 02/24/2023 Pneumococcal Polysaccharide PPV23 (Pneumovax) 05/04/2015 Seasonal [...] encounter Miscellaneous Notes * Telephone Encounter - Noemi NavaFLORA - 03/07/2023 9:05 AM EDT Pt needs assistance with paying for medications Order Questions Question Answer [facility] Specialty Community Health Watch And Clock Maker And Repairer (CANDE) Reason for Referral Financial Assistance LEGAL RESEARCHER NOTE: UT, 1 phone rings and hangs up. documented in this encounter Plan of Treatment Upcoming Encounters Date Type Specialty Care Team Description 03/14/2023 Home Visit [facility] Lucia Echevarria RN [address] [place] [address] 03/21/2023 Nutrition Services [facility] Nhi Shetty, RDN [address] [facility] [place] [address] 04/20/2023 Telemedicine [facility] Namita Zaldivar CRNP [address] [place] [address] Gavi Apple, Community Health Watch And Clock Maker And Repairer [address] [place] [address] 05/26/2023 Laboratory Laboratory Processing [facility] Mobile Home Draw [address] [place] [address] 05/26/2023 Office Visit Internal Medicine Liyah Oseguera MD [address] [place] [address] Health Maintenance Due Date Last Done Comments COVID-19 Vaccine (#1) 1962 DIABETES-EYE EXAM 1980 Cologuard 2007 Colonoscopy 2007 Colorectal Cancer Screening 2007 Fecal Occult Blood Test 2007 Sigmoidoscopy 2007 Zoster Vaccines (1 of 2) 2012 DISCUSS TOBACCO CESSATION (REFER TO SMARTSET #2973) 03/15/2019 03/15/2018 Depression Screening 06/16/2019 06/16/2018 Albumin/Creatinine Ratio 05/10/2023 05/10/2022 HbA1c 08/25/2023 02/24/2023, 04/21, 03/15/2018 Diabetic Foot Exam 02/25/2024 02/24/2023 GFR 02/25/2024 02/24/2023, 04/21, 11/13/2018, Additional history exists DTaP,Tdap,and Td Vaccines (2 - Td or Tdap) 03/25/2027 03/25/2017 Lipid Panel 05/10/2027 05/10/2022, 10/10/2017 LUNG CANCER SCREENING - USE SMARTSET 46593 Completed 12/08/2017 Influenza Vaccine (FLU shot) Completed [...] filedocumented as of this encounter Care Teams Property Specialist Relationship Specialty Start Date End Date Liyah Oseguera MD [address] [place] [address] PCP - General Internal Medicine 03/25/17 documented as of this encounter
--- OUTSIDE RECORDS SUMMARY | 2023-06-02 11:18 | External Medical Summary ---
Author Name Unknown Address Unknown Organization K01:[facility] - [address] [facility] [place] [address] Laboratory Report Ordering Provider Test Date Status KAILEE BOWMAN 02/24/2023 15:17:25 Final Observation Date Value Abnormality Reference (Units ) Status SYNC LEUKOCYTES IN BLOOD BY AUTOMATED COUNT 02/24/2023 15:17:25 8.24 4.00-10.80 (K/uL) Final Segs 02/24/2023 15:17:25 61.2 40.0-75.0 (%) Final Lymphs % 02/24/2023 15:17:25 27.3 18.0-42.0 (%) Final Monos 02/24/2023 15:17:25 8.9 1.0-11.0 (%) Final Eosinophils 02/24/2023 15:17:25 1.2 0.0-6.0 (%) Final Basos 02/24/2023 15:17:25 0.4 0.0-2.0 (%) Final Immature Granulocyte, Percent 02/24/2023 15:17:25 1.0 0.0-2.0 (%) Final Absolute Segs 02/24/2023 15:17:25 5.05 1.80-7.70 (K/uL) Final Lymphs, absolute 02/24/2023 15:17:25 2.25 1.00-4.80 (K/ul) Final Monos, Abs 02/24/2023 15:17:25 0.73 0.00-1.10 (K/uL) Final Eos, Abs 02/24/2023 15:17:25 0.10 0.00-0.70 (K/uL) Final Basos, Abs 02/24/2023 15:17:25 0.03 0.00-0.20 (K/uL) Final Immature Granulocytes, Number 02/24/2023 15:17:25 0.08 0.00-0.20 (K/uL) Final Performing Location LAB[facility]ORY [facility] [place] - [address] [facility] [address]
--- OUTSIDE RECORDS SUMMARY | 2023-06-02 11:18 | External Medical Summary ---
Author Name Unknown Address Unknown Organization K01:[facility]ATORY [facility] [place] - [address] [facility] [place] [facility] [address] Laboratory Report Ordering Provider Test Date Status KAILEE BOWMAN 02/24/2023 15:17:25 Final Observation Date Value Abnormality Reference (Units ) Status HbA1C 02/24/2023 15:17:25 17.2 Above high normal 4. 0-5.6 (%) Final The use of HbA1c to monitor glycemic status is based on normal hemoglobin and HbA composition. This test should not be used in patients with abnormal hemoglobin that affects the half life of the red blood cell or the in vivo glycation rates. Glucose, estimated average 02/24/2023 15:17:25 447 Above high normal <126 (mg/dL) Ilia reynaga Performing Location LAB[facility] [place] [facility] [address] [facility] [address]
--- OUTSIDE RECORDS SUMMARY | 2023-06-02 11:18 | External Medical Summary | Summary of Care ---
Author Name Unknown Organization [facility] Address [address] [place] [address] Phone [phone] Care Team Providers Care Hair Sample Matcher Name Role Phone Liyah Oseguera MD Primary Care Provider [phone] Encounter Details Date Type Department Care Team Description 02/22/2023 Endodontic AssistantPassenger Car Upholsterer ApprenticeFranc[facility] [address] [place] [address] Paris Zhao, RN [address] [place] [address] Type 2 diabetes mellitus with diabetic mononeuropathy, without long-term current use of insulin (HCC)* Allergies No known active allergiesdocumented as of this encounter (statuses as of 02/22/2023) Medications Medication Sig Dispensed Refills Start Date End Date Status Ketoconazole 2 % cream 0 12/16/2017 Active Hydrocortisone-Marcelino e 1 % CREA 0 12/16/2017 Active Albuterol Sulfate HFA 108 (90 Base) MCG/ACT Inhalation Aerosol SolutionIndication s:Cough Inhale 2 Puffs by mouth every 4 hours as needed for Wheezing. 1 Inhaler 1 03/15/2018 Active senna-docusate (ISRA-COLACE) 8.6-50 MG per tabletIndications: Other constipation Take 2 Tabs by mouth daily. 60 Tab 5 06/16/2018 Active polyethylene glycol 3350 (MIRALAX) 255 gram powderIndications: Other constipation Take 17 g by mouth as needed for Constipation. Dissolve one heaping tablespoon in 8 ounces of water or juice. 1 Bottle 2 06/16/2018 Active Daily Elise Oral Tablet Take 1 Tab by mouth daily. 0 Active Carvedilol 3.125 MG Oral Tablet (Coreg) Take 3.125 mg by mouth 2 times a day with morning and evening meals. 0 Active Folic Acid 1 MG Oral Tablet Take 1 mg by mouth daily. 0 Active Potassium Chloride 20 MEQ Oral Packet Take 20 mEq by mouth daily. 0 Active Thiamine HCl 100 MG Oral Tablet (vitamin B-1) Take 100 mg by mouth daily. 0 Active Gabapentin 100 MG Oral Capsule 3 Capsules (300 mg). 0 02/21/2018 Active Magnesium Oxide 400 (240 Mg) MG Oral Tablet Take 1 Tablet (400 mg) by mouth in the morning. In the morning.. 0 05/03/2022 Active DULoxetine HCl 20 MG Oral Capsule [...] Glargine Solostar 100 UNIT/ML Subcutaneous Solution Pen-injector (Lantus SoloStar) Inject 25 Units under the skin in the morning. 0 Active cloNIDine HCl 0.1 MG Oral Tablet (Catapres) Take 0.1 mg by mouth 2 times a day. 0 3 Discontinue d(Patient preference/ discontinua tion) Lisinopril 20 MG Oral Tablet (Prinivil) 1 Tablet (20 mg). 0 09/30/2018 3 Discontinue d(Patient preference/ discontinua tion) Empagliflozin 10 MG Oral Tablet (Jardiance)Indicat ions:Type 2 diabetes mellitus with hemoglobin A1c goal of less than 7.0% (HCC) Take 1 Tablet (10 mg) by mouth in the morning. 30 Tablet 5 05/12/2022 3 Discontinue d(Patient preference/ discontinua tion) documented as of this encounter (statuses as of 02/22/2023) Active Problems Problem Noted Date Hypokalemia 05/10/2022 Phantom limb syndrome with pain 05/10/20 22 Phantom limb syndrome with pain 05/10/20 22 Recurrent acute pancreatitis 03/15/2018 History of acute alcohol intoxication Mild episode of recurrent major depressi ve disorder 10/10/2017 HTN, goal below 140/90 10/10/2017 BMI 27.0-27.9,adult 10/10/2017 Traumatic amputation of leg below knee, right, sequela Alcohol abuse documented as of this encounter (statuses as of 02/22/2023) Resolved Problems Problem Noted Date Resolved Date Alcohol dependence with withdrawal, unspecified 03/15/2018 03/15/2018 Body mass index (BMI) of 40.0 to 44.9 in adult 0 11/08/2017 12/20/2017 Overview: Per Obesity protocol #1 documented as of this encounter (statuses as of 02/22/2023) Immunizations Name Administration Dates Next Due Pneumococcal Polysaccharide PPV23 (Pneumovax) Seasonal Influenza, PF, 6 mo ns & Above, IM , (Flulaval) 03/15/2018,03/25/2017 TDAP (age 10 and older)(Boostrix) 03/25/2017 [...] as of this encounter Progress Notes * Paris Zhao RN - 02/22/2023 3:20 PM EDT Endodontic Assistant Progress Note: Date: 02/22/23 Assigned Patient Tier: 2 Connected with patient via phone. Verified patient name/. Advised patient that call is being recorded for quality and training purposes. Assessment: Pt. noted the following: Patient denies SOB, cough, LE edema or angina Has a fair appetite, denies bowel/bladder complaints No complaints of pain, sleeping okay at nignt Patient has a small open area to right BKA site, size of nickel, using Xeroform & Optifoam to the area Blood sugars running 90-220, says he is checking his blood sugars twice a day, A1C in the hospital was 16.9 Patient lives alone in an apartment Uses a walker with his prosthesis when ambulating Independent with ADL's, uses county transportation, manages his own medications Confirmed patient being followed by [facility] home health Patient to see Dr. Oseguera on 02/24/23, [facility] referral completed by hospital, to be seen on 02/25/23 Patient says he drinks 2-3 ETOH drinks a week, refusing addictions coordinator referral MTM referral request sent to PCP Patient is currently unemployed, said he did get SSI, but was stopped 1 year ago, says he is applying to get the SSI restarted Did you receive an alert for an annual wellness visit? No Is this call for a hospital, senior care or rehab facility discharge to home? Yes [facility] on 02/11/23 with elevated blood sugars, treated for acidosis, discharged home with home health on 02/18/23 Medication Reconciliation: Medication Reconciliation completed: yes Review of Current goals: Discussed the following patient-centered CM goals with the patient during this discussion: -Diabetes: Patient will successfully manage their diabetes -Status: On Track patient confirms he is taking his daily Lantus Insulin, checking blood sugars twice a day. -TREATMENT: Heal and maintain skin integrity -Status: On Track small open area to right BKA, home health following. -SAFETY: Prevent falls or injuries -Status: On Track patient using walker with prosthesis to right BKA wihen ambulating, discussed safety precautions. COPD Patient: No CHF Patient: NO CM Plan: Reviewed 3 Red Flags with patient. Advised to call CM with any of the following: Red Flag 1: increased SOB, cough, Red Flag 2: fever, chills, increased redness, drainage or swelling to right BKA site, or Red Flag 3: blood sugars over 300 Remote Patient Monitoring: At this time, RPM not offered/considered for patient due to not needed at this time. Plan for Future Contacts: Plan to follow up within 1 week to check progress on the following goals/needs as avove. Planned contacts from the following parties will occur this week: PCP office visit as additional contacts per workflow. Advancement/Closure Plan: Keep patient at current Tier with reassessment per workflow. Patient provided CM contact information and encouraged to call with any changes in condition. SNP Member? No PCP Notified of enrollment in CM/HM program: Yes Is Provider in agreement with POC? Yes Paris Zhao RN Outpatient Case Management documented in this encounter Plan of Treatment Upcoming Encounters Date Type Specialty Care Team Description 02/24/2023 Office Visit Internal Medicine Liyah Oseguera MD [address] [place] [address] 02/25/2023 Home Visit [facility] Lucia Echevarria RN [address] [place] [address] 03/03/2023 Telemedicine [facility] Clif Farr CRNP [address] [place] [address] Gavi Apple, Community Health Housecleaner Floor [address] [place] [address] Health Maintenance Due Date Last Done Comments COVID-19 Vaccine (#1) 1962 Cologuard 2007 Colonoscopy 2007 Colorectal Cancer Screening 2007 Fecal Occult Blood Test 2007 Sigmoidoscopy 2007 Zoster Vaccines (1 of 2) 2012 Pneumococcal Vaccine: Pediatrics (0 to 5 Years) and At-Risk Patients (6 to 64 Years) (2 - PCV) 05/04/2016 05/04/2015 Depression Screening, Annual for Pts 12 and Over 06/16/2019 06/16/2018 Influenza Vaccine (FLU shot) (#1) 2023 03/15/2018, 03/25/2017 GFR 05/10/2023 05/10/2022, 10/19, 10/07/2018, Additional history exists Albumin/Creatinine Ratio 05/10/2025 05/10/2022 Diabetes Screening 05/10/2025 05/10/2022, 1 07/10/2021, 11/13/2018, Additional history exists DTaP,Tdap,and Td Vaccines (2 - Td or Tdap) 03/25/2027 03/25/2017 Lipid Panel 05/10/2027 05/10/2022, 10/10/2017 LUNG CANCER SCREENING - USE SMARTSET [id number] Completed 12/08/2017 GARDASIL-HPV IMMUNIZATION SERIES Aged Out No longer [...] Diagnoses Diagnosis Type 2 diabetes mellitus with diabetic mononeuropathy, without long-term current use of insulin (HCC)- Primary documented in this encounter Care Teams Hair Sample Matcher Relationship Specialty Start Date End Date Liyah Oseguera MD [address] [facility] [place] [address] PCP - General Internal Medicine 03/25/17 documented as of this encounter
--- OUTSIDE RECORDS SUMMARY | 2023-06-02 11:18 | External Medical Summary | Summary of Care ---
Author Name Unknown Organization [facility] Address [address] [place] [address] Phone [phone] Care Team Providers Care Electric Relay Tester Name Role Phone Liyah Oseguera MD Primary Care Provider [phone] Reason for Visit * Reason Comments [facility]: Enrollment Encounter Details Date Type Department Care Team Description 02/25/2023 [facility] [address] Lucia Echevarria RN [address] [place] [address] Allergies No known active allergiesdocumented as of this encounter (statuses as of 02/25/2023) Medications Medication Sig Dispensed Refills Start Date End Date Status Albuterol Sulfate HFA 108 (90 Base) MCG/ACT Inhalation Aerosol SolutionIndication s:Cough Inhale 2 Puffs by mouth every 4 hours as needed for Wheezing. 1 Inhaler 1 03/15/2018 Active polyethylene glycol 3350 (MIRALAX) 255 gram [...] and continue. 3 Each 5 02/24/2023 Active Ketoconazole 2 % cream 0 12/16/2017 3 Discontinue d(Medicatio n List Clean Up) Hydrocortisone-Marcelino e 1 % CREA 0 12/16/2017 3 Discontinue d(Medicatio n List Clean Up) Folic Acid 1 MG Oral Tablet Take 1 Tablet by mouth in the morning. 0 3 Discontinue d(Refill) Potassium Chloride 20 MEQ Oral Packet Take 20 mEq by mouth in the morning. 0 3 Discontinue d(Refill) Thiamine HCl 100 MG Oral Tablet (vitamin B-1) Take 1 Tablet by mouth in the morning. 0 3 Discontinue d(Refill) Magnesium Oxide 400 (240 Mg) MG Oral Tablet Take 1 Tablet by mouth in the morning. In the morning.. 0 05/03/2022 3 Discontinue d(Refill) documented as of this encounter (statuses as of 02/25/2023) Active Problems Problem Noted Date Acquired absence of right leg below knee 02/24/2023 Type 2 diabetes mellitus with hemoglobin A1c goal of less than 7.0% 02/24/2023 Acquired absence of right leg below knee 02/24/2023 Hypokalemia 05/10/2022 Phantom limb syndrome with pain 05/10/20 22 Recurrent acute pancreatitis 03/15/2018 History of acute alcohol intoxication Mild episode of recurrent major depressi ve disorder 10/10/2017 HTN, goal below 140/90 10/10/2017 BMI 27.0-27.9,adult 10/10/2017 Traumatic amputation of leg below knee, right, sequela Alcohol abuse documented as of this encounter (statuses as of 02/25/2023) Resolved Problems Problem Noted Date Resolved Date Alcohol dependence with withdrawal, unspecified 03/15/2018 03/15/2018 Body mass index (BMI) of 40.0 to 44.9 in adult 0 11/08/2017 12/20/2017 Overview: Per Obesity protocol #1 documented as of this encounter (statuses as of 02/25/2023) Immunizations Name Administration Dates Next Due Pneumococcal Conjugate Vacci ne, 20-valent ([id number]) 02/24/2023 Pneumococcal Polysaccharide PPV23 (Pneumovax) 05/04/2015 Seasonal [...] Sign Reading Time Taken Comments Blood Pressure 114/62 02/25/2023 12:20 PM EDT Pulse 88 02/25/2023 12:20 PM EDT Temperature 36.2 C (97.1 F) 02/25/2023 12:20 PM E DT Respiratory Rate 18 02/25/2023 12:20 PM EDT Oxygen Saturation 96% 02/25/2023 12:20 PM EDT Inhaled Oxygen Concentration - - Weight - - Height - - Body Mass Index - - documented in this encounter Progress Notes * Lucia Echevarria RN - 02/25/2023 10:52 AM EDT [facility] Quality Assurance InternElectronic Technician/NAZARIO Visit Date: 02/25/2023 Time: 10:52 AM Name: Umair Harrison : 1960 Current Concerns: Pt seen for enrollment to [facility] and NAZARIO #2 Admitted to [facility] 02/11 - 02/18/23 Dx: Hyperosmolar hyperglycemic State, DM, alcohol abuse, recurrent pancreatitis, HTN, hyperlipidemia, has right BKA Blood sugar was 1819 upon arrival to ED Pt checks blood sugar about twice a day Blood sugar have been ranging 61 - 294 since home from hospital Referral recently put in for MTM - not scheduled yet Getting home health services through [facility] for wound management - has open area on right BKA stump from prosthesis. Nurse was in today and recommends Optifoam dressing TE sent to PCP for order Bottles out med rec done - pt missing Vitamin B-1, Mag ox, Folic Acid, KcL, Insulin glargine. Call placed to [facility] and insulin will be there for p/u today - needs new scripts for other meds TE sent to PCP Pt states brother will picking tech meds Pt denies any concerns at this time Vitals stable Lungs clear bilaterally Denies pain Denies falls Physical Exam: BP 114/62 | Pulse 88 | Temp 36.2 C (97.1 F) | Resp 18 | SpO2 96% Pain 0 Physical Exam Constitutional: General: He is not in acute distress. Cardiovascular: Rate and Rhythm: Normal rate and regular rhythm. Pulses: Normal pulses. Heart sounds: Normal heart sounds. Pulmonary: Effort: Pulmonary effort is normal. Breath sounds: Normal breath sounds. Abdominal: General: Bowel sounds are normal. Palpations: Abdomen is soft. Skin: General: Skin is warm and dry. Neurological: Mental Status: He is alert and oriented to person, place, and time. Problems/Symptoms: Review of Systems Constitutional: Negative. HENT: Negative. Eyes: Negative. Respiratory: Negative. Cardiovascular: Negative. Genitourinary: Negative. Musculoskeletal: Positive for gait problem. Right BKA Skin: Positive for wound (right stump - dsg intact, changed by nurse today). Psychiatric/Behavioral: Negative. Medication Reconciliation: (See medication list) Does patient take medications as ordered: Yes Patient Well Being: PHQ2/9: No questionnaires available. Pt lives alone in apartment - has help from brother and friends. Denies falls Using walker to get around Uses [facility] [employer] for transportation Smokes "a couple" cigarettes a day - about 3 a day Reports drinking alcohol - about 1 beer every few days [facility] Completed this Visit: Yes. [facility]: Reason Completed: Enrollment Status post ED visit/hospital admission [facility] Interventions: Fall education provided, reviewed/provided Fall brochure Advanced Care Planning: No documentation, ACP in process. Patient's Goals of Care: Stay in apartment [...] prescribed/reviewed Check blood sugars twice a day supervisor grain and yeast plants remaining meds from pharmacy (insulin, mag ox, folic acid, b-1, Kcl) Fall precautions - use walker at all times Keep all appts and attend F/u with MTM clinic CCD diet Home Interventions Provided: Home Intervention: Other; Evaluation Consulted PCP/Specialist Reinforced current Plan of Care, including self-management and medication regimen Patient's 'Red Flags': Blood sugar less than 70 or over 300 Unable to walk Blurred vision Patient Needs to Remember: Call [facility] at with any new or worsening health concerns or problems, red flag symptoms. Referrals Needed: Other none Follow Up: Is there cellular connectivity/connectivity in the home? Yes Does the patient have internet in the home? Yes Patient encouraged to call the intake phone number for all urgent but not emergent issues. Is the [facility] new to [facility] within the last 30 days? Yes, Is this a Transitions of Care visit? Yes, this is the 2nd visit or later, Yes cellular connectivity. Was their Readmission Risk Score less than 18%? Yes Does the patient have any active signs of an exacerbation? No Has the patient had any ED visits since being discharged? No, Please forward to Community Electric Switch Tester for telehealth scheduling, and indicate appropriate week of Transition of Care. Provider is in agreement with Plan of Care: Yes Scheduled to follow up with patient per NAZARIO schedule. Lucia Echevarria RN 02/25/2023 10:52 AM documented in this encounter Plan of Treatment Upcoming Encounters Date Type Specialty Care Team Description 03/03/2023 [facility]medicine [facility] [place] Cilf Farr CRNP [address] [place] [address] Gavi Apple, Community Health Womens Health Nurse Practitioner [address] [place] [address] 03/14/2023 Home Visit [facility] Lucia Echevarria RN [address] [place] [address] 05/26/2023 Office Visit Internal Medicine Liyah Oseguera MD [address] [place] [address] Health Maintenance Due Date Last Done Comments [...] 10/10/2017 LUNG CANCER SCREENING - USE SMARTSET 63207 Completed 12/08/2017 Influenza Vaccine (FLU shot) Completed [...] filedocumented as of this encounter Care Teams Electric Relay Tester Relationship Specialty Start Date End Date Liyah Oseguera MD [address] [place] [address] [id number] PCP - General Internal Medicine 03/25/17 documented as of this encounter
--- OUTSIDE RECORDS SUMMARY | 2023-06-02 11:18 | External Medical Summary | Summary of Care ---
Author Name Unknown Organization [facility] Address [address] [place] [address] Phone [phone] Care Team Providers Care Technical Support Technician Name Role Phone Liyah Oseguera MD Primary Care Provider [phone] Reason for Visit * Reason Onset Date Comments Advice 02/22/2023 Encounter Details Date Type Department Care Team Description 02/22/2023 Telephone General Internal Medicine [facility] [address] [facility] [place] [address] Liyah Oseguera MD [address] [place] [address] Advice Allergies No known active allergiesdocumented as of this encounter (statuses as of 02/25/2023) Medications Medication Sig Dispensed Refills Start Date End Date Status Albuterol Sulfate HFA 108 (90 Base) MCG/ACT Inhalation Aerosol SolutionIndications: Cough Inhale 2 Puffs by mouth every 4 hours as needed for Wheezing. 1 Inhaler 1 03/15/2018 Active polyethylene glycol 3350 (MIRALAX) 255 gram powderIndications:Ot [...] goal of less than 7.0% ([facility]) Take 1 Tablet (500 mg) by mouth 2 times a day with morning and evening meals. 60 Tablet 5 05/12/2022 Active documented as of this encounter (statuses [...] encounter Miscellaneous Notes * Telephone Encounter - Abbe Pierce PA-C - 02/22/2023 12:52 PM EDT Agree with plan stated. * Telephone Encounter - FLORA Hardy - 02/22/2023 11:01 AM EDT Robinson: [facility] Home Health called to report that on pt's right stump where the prosthetic is, there is an open area: 2.5x1.5 cm, superficial. Robinson is wondering if it would be okay to put xeroform and optifoam gentle and to change every 3 to 5 days. Please return Robinson's call. documented in this encounter Plan of Treatment Upcoming Encounters Date Type Specialty Care Team Description 03/03/2023 Telemedicine [facility] Clif Farr CRNP [address] [place] [address] Gavi Apple, Community Health Stock Crane Operator [address] [place] [address] 03/14/2023 Home Visit [facility] Lucia Echevarria, RN [address] [place] [address] 05/26/2023 Office Visit Internal Medicine Liyah Oseguera MD [address] [place] [address] Health Maintenance Due Date Last Done Comments [...] 10/10/2017 LUNG CANCER SCREENING - USE SMARTSET 93576 Completed 12/08/2017 Influenza Vaccine (FLU shot) Completed [...] filedocumented as of this encounter Care Teams Technical Support Technician Relationship Specialty Start Date End Date Liyah Oseguera MD [address] [facility] [place] [address] PCP - General Internal Medicine 03/25/17 documented as of this encounter
--- OUTSIDE RECORDS SUMMARY | 2023-06-02 11:18 | External Medical Summary | Summary of Care ---
Author Name Unknown Organization [facility] Address [address] [place] [address] Phone [phone] Care Team Providers Care Chair Lift Operator Name Role Phone Liyah Oseguera MD Primary Care Provider [phone] Reason for Visit * Reason Onset Date Comments Advice 02/22/2023 Encounter Details Date Type Department Care Team Description 02/22/2023 Telephone General Internal Medicine [facility] [address] [facility] [place] [address] Liyah Oseguera MD [address] [place] [address] Advice Allergies No known active allergiesdocumented as of this encounter (statuses as of 03/02/2023) Medications Medication Sig Dispensed Refills Start Date [...] of less than 7.0% ([facility]) Take 1 Tablet (500 mg) by mouth 2 times a day with morning and evening meals. 60 Tablet 5 05/12/2022 Active documented as of this encounter (statuses as of 03/02/2023) Active Problems Problem Noted Date Acquired absence [...] as of this encounter (statuses as of 03/02/2023) Resolved Problems Problem Noted Date Resolved Date Alcohol dependence with withdrawal, unspecified 03/15/2018 03/15/2018 Body mass index (BMI) of 40.0 to 44.9 in adult 0 11/08/2017 12/20/2017 Overview: Per Obesity protocol #1 documented as of this encounter (statuses as of 03/02/2023) Immunizations Name Administration Dates Next Due Pneumococcal Conjugate Vacci ne, 20-valent ([id number]) 02/24/2023 Pneumococcal Polysaccharide PPV23 (Pneumovax) 05/04/2015 Seasonal [...] encounter Miscellaneous Notes * Telephone Encounter - Yolanda Cam LPN - 03/02/2023 1:33 PM EDT [facility] health is aware. * Telephone Encounter - Abbe Pierce PA-C - 02/22/2023 12:52 PM EDT Agree with plan stated. * Telephone Encounter - FLORA Hardy - 02/22/2023 11:01 AM EDT Robinson: [facility] called to report that on pt's right [...] Telemedicine [facility] Clif Farr CRNP [address] [facility] [place] [address] Gavi Apple, Community Health Sports Editor [address] [place], [place] [id number] 03/14/2023 Home Visit [facility] Lucia Echevarria, RN [address] [facility] [address] 05/26/[address] [facility] Home Draw [address] [place] [address] 05/26/2023 Office Visit Internal Medicine Liyah Oseguera MD [address] [place] [address] Health Maintenance Due Date Last Done Comments COVID-19 Vaccine (#1) 1960 DIABETES-EYE EXAM 1980 Cologuard 2007 Colonoscopy 2007 Colorectal Cancer Screening 2007 Fecal Occult Blood Test 2007 Sigmoidoscopy 2007 Zoster Vaccines (1 of 2) 2012 DISCUSS TOBACCO CESSATION (REFER TO SMARTSET #8360) 03/15/2019 03/15/2018 Depression Screening 06/16/2019 06/16/2018 Albumin/Creatinine Ratio 05/10/2023 05/10/2022 HbA1c 08/25/2023 02/24/2023, 04/21, 03/15/2018 Diabetic Foot Exam 02/25/2024 02/24/2023 GFR 02/25/2024 02/24/2023, 04/21, 11/13/2018, Additional history exists DTaP,Tdap,and Td Vaccines (2 - Td or Tdap) 03/25/2027 03/25/2017 Lipid Panel 05/10/2027 05/10/2022, 10/10/2017 LUNG CANCER SCREENING - USE SMARTSET 49633 Completed 12/08/2017 Influenza Vaccine (FLU shot) Completed [...] filedocumented as of this encounter Care Teams Chair Lift Operator Relationship Specialty Start Date End Date Liyah Oseguera MD [address] [facility] [place] [address] PCP - General Internal Medicine 03/25/17 documented as of this encounter
--- OUTSIDE RECORDS SUMMARY | 2023-06-02 11:18 | External Medical Summary | Summary of Care ---
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 Yes All sections of this form must be filled out completely. Forms with missing or illegible information will be returned for completion. This form should not be modified in any way. Forms that have been modified will be returned. This form may not be submitted by a home health agency. It must be complete and submitted by the ordering provider. One full business day lead time is required and service will be scheduled based on the next service day for the [facility] Home Phlebotomy does not service every geographical location on a daily basis. Contact [facility] Client Services at to find out service days for a specific location. Medical Laboratory [facility] Patient Name: Umair Harrison : 1960 Sex: male Address [address] [facility] [address] Provider: None? Liyah Oseguera MD? Diagnosis: Tests Requested - once starting May 27, 2023 lipid panel,CBC,HGB A1C, folic acid,vit B12 Reason for Visit * Reason Onset Date Comments [facility]: Maintenance 02/25/2023 Encounter Details Date Type Department Care Team Description 02/25/2023 Telephone [facility], [place] [address] [address] [facility], Nurse [facility] [address] [place] [address] [facility]: Maintenance Allergies No known [...] with snack 3 mL 5 02/25/2023 Active documented as of this encounter (statuses [...] Next Due Pneumococcal Conjugate Vacci ne, 20-valent ([id number]) 02/24/2023 Pneumococcal Polysaccharide PPV23 (Pneumovax) 05/04/2015 Seasonal [...] Telephone Encounter - Felecia Méndez RN - 02/25/2023 4:57 PM EDT Error Felecia Méndez RN, BSN [facility] tool and cutter grinderTrauma Program Manager documented in this encounter Plan of Treatment Upcoming Encounters Date Type Specialty Care Team Description 03/03/2023 Telemedicine [facility] Clif Farr, [place] [address] [facility] [place] [address] Gavi Apple, Community Health Outreach Analyst [address] [place] [address] 03/14/2023 Home Visit [facility] Lucia Echevarria, RN [address] [place] [address] 05/26/2023 Office Visit Internal Medicine Liyah Oseguera MD [address] [place] [address] Scheduled Referrals Name Type Priority Associated Diagnoses Orde r Schedule HOME PHLEBOTOMY REFERRAL OP Referral Within 30 days (routine) 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) Ordered: 02/25/2023 Health Maintenance Due Date Last Done Comments [...] 10/10/2017 LUNG CANCER SCREENING - USE SMARTSET 05325 Completed 12/08/2017 Influenza Vaccine (FLU shot) Completed [...] as of this encounter Visit Diagnoses Diagnosis 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
--- OUTSIDE RECORDS SUMMARY | 2023-06-02 11:18 | External Medical Summary ---
Author Name Unknown Address Unknown Organization [facility] [address] [place] [address] Laboratory Report Ordering Provider Test Date Status KAILEE BOWMAN 02/24/2023 15:17:25 Final Observation Date Value Abnormality Reference (Units ) Status BUN 02/24/2023 15:17:25 8 6-20 (mg/dL) Final Creatinine 02/24/2023 15:17:25 0.7 0.6-1.2 (mg/dL) Final Glomerular filtration rate/1.73 sq M.predicted [Volume Rate/Area] in Serum, Plasma or Blood by Creatinine-based formula (CKD-EPI) 02/24/2023 15:17:25 >90 >=60 (mL/min) Final eGFR is calculated based on the CKD-EPI 2020 equation SODIUM 02/24/2023 15:17:25 135 135-146 (m mol/L) Final Potassium 02/24/2023 15:17:25 4.2 3.5-5.1 (m mol/L) Final Cl 02/24/2023 15:17:25 99 98-107 (mm ol/L) Final CO2 02/24/2023 15:17:25 25 22-32 (mmo l/L) Final Anion gap 02/24/2023 15:17:25 11 7-15 (mmol /L) Final Glucose 02/24/2023 15:17:25 182 Above high normal 70 -120 (mg/dL) Final Albumin 02/24/2023 15:17:25 3.9 3.8-5.0 (g /dL) Final AST (Aspartate aminotransferase) 02/24/2023 15:17:25 13 10-50 (U/L) Fin al Alk Phos 02/24/2023 15:17:25 119 35-130 (U/ L) Final Bilirubin, Total 02/24/2023 15:17:25 0.2 <=1 .2 (mg/dL) Final Calcium 02/24/2023 15:17:25 9.8 8.4-10.2 ( mg/dL) Final Protein 02/24/2023 15:17:25 6.6 6.0-8.3 (g /dL) Final ALT (Alanine aminotransferase) 02/24/2023 15:17:25 13 10-50 (U/L) Ilia reynaga Performing Location [facility] [address] [place] [address]
--- OUTSIDE RECORDS SUMMARY | 2023-06-02 11:18 | External Medical Summary ---
Author Name Unknown Address Unknown Organization K01:[facility] [address] [place] [address] Laboratory Report Ordering Provider Test Date Status GRACIECARRILUKASZ 02/24/2023 15:17:25 Final Observation Date Value Abnormality Reference (Units) Status Hepatitis B virus surface Ab [Units/volume] in Serum or Plasma by Immunoassay 02/24/2023 15:17:25 <3.5 (mIU/mL) Final Hepatitis B virus surface Ab [Presence] in Serum by Immunoassay 02/24/2023 15:17:25 Negative Final HEPATITIS B SURFACE ANTIBODY, INTERPRETATION 02/24/2023 15:17:25 NOT immune to Hepatitis B Virus Final POSITIVE: >=11.5 mIU/mL
INDETERMINATE: 8.5-<11.5 mIU/mL
NEGATIVE: <8.5 mIU/mL Performing Location [facility] - [facility] [place] [address] [place] [address]
--- OUTSIDE RECORDS SUMMARY | 2023-06-02 11:18 | External Medical Summary ---
Author Name Unknown Address Unknown Organization K[facility] [address] [facility] [address] Laboratory Report Ordering Provider Test Date Status KAILEE BOWMAN 02/24/2023 15:17:25 Final Observation Date Value Abnormality Reference (Units ) Status WBC, Total 02/24/2023 15:17:25 8.24 4.00-10.8 0 (K/uL) Final RBC 02/24/2023 15:17:25 3.33 4.50-5.25 (M/uL) Final Hemoglobin 02/24/2023 15:17:25 9.6 Below low normal 14 .0-16.8 (g/dL) Final Anemia reflex testing trigge rs on a HGB < 12.0 for Females and HGB < 13.0 for Males in accordance with the WHO Anemia Guidelines
Anemia reflex testing triggers on a HGB < 12.0 for Females and HGB < 13.0 for Males in accordance with the WHO Anemia Guidelines HCT 02/24/2023 15:17:25 29.5 Below low normal 40. 0-48.4 (%) Final MCV 02/24/2023 15:17:25 88.6 82.0-99.5 (fL) Final MCH 02/24/2023 15:17:25 28.8 27.0-34.0 (pg) Final MCHC 02/24/2023 15:17:25 32.5 32.0-36.0 (g/dL) Final RDW 02/24/2023 15:17:25 15.1 11.5-15.5 (%) Final Platelets 02/24/2023 15:17:25 405 Above hi gh normal 140-400 (K/uL) Final MPV 02/24/2023 15:17:25 8.7 6.6-11.1 ( fL) Final Nucleated erythrocytes/100 leukocytes [Ratio] in Blood by Automated count 02/24/2023 15:17:25 0 <=0 (/100 WBCs) Final Performing Location [facility] [place] [address] [facility] [address]
--- OUTSIDE RECORDS SUMMARY | 2023-06-02 11:18 | External Medical Summary | Summary of Care ---
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 In the morning.. 0 05/03/2022 Discontinue d(Refill) documented as of this encounter [...] Next Due Pneumococcal Conjugate Vacci ne, 20-valent ([id number]) 02/24/2023 Pneumococcal Polysaccharide PPV23 (Pneumovax) 05/04/2015 Seasonal [...] Telephone Encounter - Gracie Oseguera MD - 02/25/2023 1:17 PM EDTSigned Prescriptions: Disp Refills Potassium Chloride 20 MEQ Oral Packet 90 Pac*3 Sig: Take 20 mEq by mouth in the morning. Authorizing Provider: GRACIE OSEGUERA Thiamine HCl 100 MG Oral Tablet (vitamin B*90 Tab*3 Sig: Take 1 Tablet by mouth in the morning. Authorizing Provider: GRACIE OSEGUERA Magnesium Oxide -Mg Supplement 400 (240 Mg*90 Tab*3 Sig: Take 1 Ta blet by mouth in the morning. In the morning.. Authorizing Provider: GRACIE OSEGUERA Folic Acid 1 MG Oral Tablet 90 Tab*3 Sig: Take 1 Tablet by mouth in the morning. Authorizing Provider: GRACIE OSEGUERA Optifoam 4"X4" Pad 10 Each2 Sig: Apply to RT stump and change every 3-4 days Authorizing Provider: GRACIE OSEGUERA * Telephone Encounter - Gracie Oseguera MD - 02/25/2023 1:17 PM EDT Done * Telephone Encounter - Lucia Echevarria RN - 02/25/2023 12:04 PM EDT Pt in need of refills on meds Orders pended for your review and signature. Pharmacy is [facility]. [facility] home health nurse was also in to see pt today and requesting order for Optifoam dressings to right stump, this could be changed every 3-5 days. Could you please order Optifoam? Thank you. documented in this encounter Plan of Treatment Upcoming Encounters Date Type Specialty Care Team Description 03/03/2023 Telemedicine [facility] Clif Farr CRNP [address] [place] [address] Gavi Apple, Community Health Lacing Presser [address] [place] [address] 03/14/2023 Home Visit [facility] Lucia Echevarria, RN [address] [place] [address] 05/26/2023 Office Visit Internal Medicine Gracie Oseguera MD [address] [facility] [place] [address] Health Maintenance Due Date Last Done Comments COVID-19 Vaccine (#1) 1962 DIABETES-EYE EXAM 1980 Cologuard 2007 Colonoscopy 2007 Colorectal Cancer Screening 2007 Fecal Occult Blood Test 2007 Sigmoidoscopy 2007 Zoster Vaccines (1 of 2) 2012 DISCUSS TOBACCO CESSATION (REFER TO SMARTSET #8887) 03/15/2019 03/15/2018 Depression Screening 06/16/2019 06/16/2018 Albumin/Creatinine Ratio 05/10/2023 05/10/2022 HbA1c 08/25/2023 02/24/2023, 04/21, 03/15/2018 Diabetic Foot Exam 02/25/2024 02/24/2023 GFR 02/25/2024 02/24/2023, 04/21, 11/13/2018, Additional history exists DTaP,Tdap,and Td Vaccines (2 - Td or Tdap) 03/25/2027 03/25/2017 Lipid Panel 05/10/2027 05/10/2022, 10/10/2017 LUNG CANCER SCREENING - USE SMARTSET 60613 Completed 12/08/2017 Influenza Vaccine (FLU shot) Completed [...] as of this encounter Visit Diagnoses Diagnosis 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
--- OUTSIDE RECORDS SUMMARY | 2023-06-02 11:18 | External Medical Summary | Summary of Care ---
Author Name Unknown Organization [facility] Address [address] [place] [address] Phone [phone] Care Team Providers Care Miller Head Assistant Wet Process Name Role Phone Liyah Osegeura MD Primary Care Provider [phone] Reason for Visit * Reason Onset Date Comments Advice 02/22/2023 Encounter Details Date Type Department Care Team Description 02/22/2023 Telephone General Internal Medicine [facility] [address] [place] [address] Liyah Oseguera MD [address] [place] [address] Advice Allergies No known active allergiesdocumented as [...] goal of less than 7.0% ([facility]) Take 1 Tablet (500 mg) by [...] Hardy - 02/22/2023 11:01 AM EDT Robinson: [facility] Home Health called to report that [...] Telemedicine [facility] Clif Farr CRNP [address] [place] [address] Gavi Apple, Community Health Retention Manager [address] [place] [address] 03/14/2023 Home Visit [facility] Lucia Echevarria, RN [address] [place] [address] 05/26/2023 Office Visit Internal Medicine Liyah Oseguera MD [address] [place] [address] Health Maintenance Due Date Last Done Comments [...] 10/10/2017 LUNG CANCER SCREENING - USE SMARTSET 49015 Completed 12/08/2017 Influenza Vaccine (FLU shot) Completed [...] filedocumented as of this encounter Care Teams Miller Head Assistant Wet Process Relationship Specialty Start Date End Date Liyah Oseguera MD [address] [place] [address] PCP - General Internal Medicine 03/25/17 documented as of this encounter
--- OUTSIDE RECORDS SUMMARY | 2023-06-02 11:18 | External Medical Summary | Summary of Care ---
Author Name Unknown Organization [facility] Address [address] [place] [address] Phone [phone] Care Team Providers Care Client Delivery Specialist Name Role Phone Liyah Oseguera MD Primary Care Provider [phone] Reason for Visit * Reason Onset Date Comments Test Results 02/25/2023 Encounter Details Date Type Department Care Team Description 02/25/2023 Telephone General Internal Medicine [facility] [address] [facility] [place] [address] Liyah Oseguera MD 200 [facility] [place] [address] Test Results Allergies No known active allergiesdocumented as of [...] Next Due Pneumococcal Conjugate Vacci ne, 20-valent ([id number]) 02/24/2023 Pneumococcal Polysaccharide PPV23 (Pneumovax) 05/04/2015 Seasonal [...] Encounter - Felecia Méndez RN - 02/25/2023 5:02 PM EDT Home phleb referral placed for labs by dr oseguera Lab due dates 05/27/23 Spoke with lance in lab lab draws are in patient area Mobile phleb will draw labs 05/26/23 Lab will call patient 24hrs in advance PC to patient he is aware of appt and aware he will need to fast the night before Felecia Méndez RN, BSN [facility] pricing strategistLoan Reviewer * Telephone Encounter - Hebert Velasco CMA - 02/25/2023 4:43 PM EDT Please assist with lab draw through [facility] * Telephone Encounter - Liyah Oseguera MD - 02/25/2023 3:13 PM EDT Done * Telephone Encounter - Hebert Velasco CMA - 02/25/2023 2:02 PM EDT Patient aware and verbalized understanding states he is agreeable to starting novalog. He would like rx sent to mail order pharmacy. He denied any black tarry stool or nose bleeds. He states he is compliant with OTC medication for iron. He state [facility] will come and draw his upcoming labs. * Telephone Encounter - Hebert Velasco CMA - 02/25/2023 1:59 PM EDT ----- Message from Liyah Oseguera MD sent at 02/25/2023 1:34 PM EDT ----- Hba1c high at 17.2 which is same as in hospital . Continue lantus with adjusting parameter as written in script and explained . Suggest to start Novolog 4 units before meal and 2 units before snack as he seems to have severe DM and insulin dependentdue to pancrease damage from recurrent pancreatitis. Let me know . Pt to check before meals and bedtime sugar and send through [facility] in 2 weeks of starting novolog for further adjustment. Continue Metformin . Repeat fasting labs in 3 months - ordered Anemia of Hb 9.6. check any black tarry stool or nose bleed ? If not taking already suggest to takeOTC ferrous sulfate 325 mg daily and MVI daily - caution of constipation. Repeat cbc, vit b12 and folic acid in 1 month. ( Can [facility] do it ? ) - ordered documented in this encounter Plan of Treatment Upcoming Encounters Date Type Specialty Care Team Description 03/03/2023 Telemedicine [facility] Clif Farr CRNP [address] [place] [address] Gavi Apple, Community Health Security Expert [address] [place] [address] 03/14/2023 Home Visit [facility]varria, [facility] [address] [facility] [address] 05/26/2023 Office Visit Internal Medicine Liyah Oseguera MD [address] [place] [address] Health Maintenance Due Date Last Done Comments COVID-19 Vaccine (#1) 1960 DIABETES-EYE EXAM 1980 Cologuard 2007 Colonoscopy 2007 Colorectal Cancer Screening 2007 Fecal Occult Blood Test 2007 Sigmoidoscopy 2007 Zoster Vaccines (1 of 2) 2012 DISCUSS TOBACCO CESSATION (REFER TO SMARTSET #6421) 03/15/2019 03/15/2018 Depression Screening 06/16/2019 06/16/2018 Albumin/Creatinine Ratio 05/10/2023 05/10/2022 HbA1c 08/25/2023 02/24/2023, 04/21, 03/15/2018 Diabetic Foot Exam 02/25/2024 02/24/2023 GFR 02/25/2024 02/24/2023, 04/21, 11/13/2018, Additional history exists DTaP,Tdap,and Td Vaccines (2 - Td or Tdap) 03/25/2027 03/25/2017 Lipid Panel 05/10/2027 05/10/2022, 10/10/2017 LUNG CANCER SCREENING - USE SMARTSET 21517 Completed 12/08/2017 Influenza Vaccine (FLU shot) Completed [...] filedocumented as of this encounter Care Teams Client Delivery Specialist Relationship Specialty Start Date End Date Liyah Oseguera MD [address] [place] [address] PCP - General Internal Medicine 03/25/17 documented as of this encounter
--- OUTSIDE RECORDS SUMMARY | 2023-06-02 11:18 | External Medical Summary ---
Author Name Unknown Address Unknown Organization K01:[facility] - [address] [place] [address] Laboratory Report Ordering Provider Test Date Status KAILEE BOWMAN 02/24/2023 15:17:25 Final Observation Date Value Abnormality Reference (Units ) Status Ferritin 02/24/2023 15:17:25 689 Above high normal 30 -400 (ng/mL) Final Performing Location [facility] - [address] [place] [address]
--- OUTSIDE RECORDS SUMMARY | 2023-06-02 11:18 | External Medical Summary | Summary of Care ---
Author Name Unknown Organization [facility] Address [address] [place] [address] Phone [phone] Care Team Providers Care Cyber Defense Analyst Name Role Phone Liyah Oseguera MD Primary Care Provider [phone] Reason for Referral * Evaluate & Treat - Unlimited Visits (Within 3 days (urgent)) - Authorized Specialty Diagnoses / Procedures Referred By Contac t Referred To Contact Pharmacist / Pharmacy Diagnoses Type 2 diabetes mellitus with diabetic mononeuropathy, without long-term current use of insulin (HCC) Liyah Oseguera MD [address] [place] [address] Referral ID Status Reason Start Date Expiration Date Visits Requested Visits Authorized [id number] Authorized Specialty Services Required 02/22/2023 99 99 Question Answer Referral Priority Within 3 days (urgent) Department: Primary Care Reason for Referral: DM Target A1c: < 7 Comments Pharmacist Medication Therapy Management: Minimum frequency patient should be seen in person for medication management: as appropriate per clinical condition and patient status By my signature, I understand that my patient Umair Harrison will have his medication therapy managed by the [facility] ([facility]) per established policies, procedures, and protocols. I also certify that this referral may serve as an initiation of service for the management of drug therapy in the above noted patient. [facility] providers will be responsible for scheduling patient visits, obtaining appropriate laboratory studies, and adjusting medication management therapy per patient's need, in addition to those roles spelled out in the clinic policy, procedures, and drug management protocols. I understand that the service provided by the [facility] is voluntary and have informed patient that they can refuse the service at their discretion. I am aware that the [facility] will provide me with a copy of the patient encounter via my [employer] [facility]. I authorize the [facility] to carry out these activities on my behalf. I consider this program to be a necessary part of the patient's medical care. Paris Zhao RN Reason for Visit * Reason Onset Date Comments Order Request 02/22/2023 Encounter Details Date Type Department Care Team Description 02/22/2023 Director Of Coding Telephone [facility] [address] [place] [address] Paris Zhao RN [address] [place] [address] Order Request Allergies No known active allergiesdocumented as of this encounter (statuses as of 02/22/2023) Medications Medication Sig Dispensed Refills Start Date End Date Status Ketoconazole 2 % cream 0 12/16/2017 Active Hydrocortisone-Aloe 1 % CREA 0 12/16/2017 Active Albuterol Sulfate HFA 108 (90 Base) MCG/ACT Inhalation Aerosol SolutionIndications: Cough Inhale 2 Puffs by mouth every 4 hours as needed for Wheezing. 1 Inhaler 1 03/15/2018 Active senna-docusate (ISRA-COLACE) 8.6-50 MG per tabletIndications:Ot her constipation Take 2 Tabs by mouth daily. [...] the skin in the morning. 0 Active documented as of this encounter (statuses [...] Encounter - Abbe Pierce PA-C - 02/22/2023 3:16 PM EDT Order signed. * Telephone Encounter - Paris Zhao RN - 02/22/2023 3:00 PM EDT Umair Jhaveri was recently hospitalized at [facility] for uncontrolled DM, A1C was 16.9 while in the hospital. He has an appointment with you on 02/24/23, can you please sign the attached order for MTM, he will need help managing his Diabetes thanks Paris Zhao RN documented in this encounter Plan of Treatment Upcoming Encounters Date Type Specialty Care Team Description 02/24/2023 Office Visit Internal Medicine Liyah Oseguera MD [address] [facility] [place] [address] 02/25/2023 Home Visit [facility] Lucia Echevarria RN [address] [facility] [place] [address] 03/03/2023 Telemedicine [facility]if Farr [facility] [address] [facility] [address] Gavi Apple, Community Health Law Professor [address] [place] [address] Scheduled Referrals Name Type Priority Associated Diagnoses Orde r Schedule PHARMACIST MEDS THERAPY MGMT REFERRAL OP Referral Within 3 days (urgent) Type 2 diabetes mellitus with diabetic mononeuropathy, without long-term current use of insulin (HCC) Ordered: 02/22/2023 Health Maintenance Due Date Last Done Comments [...] 10/10/2017 LUNG CANCER SCREENING - USE SMARTSET 04904 Completed 12/08/2017 GARDASIL-HPV IMMUNIZATION SERIES Aged Out [...] Primary documented in this encounter Care Teams Cyber Defense Analyst Relationship Specialty Start Date End Date Liyah Oseguera MD [address] [place] [address] PCP - General Internal Medicine 03/25/17 documented as of this encounter
--- OUTSIDE RECORDS SUMMARY | 2023-06-02 11:18 | External Medical Summary ---
Author Name Unknown Address Unknown Organization K01:[facility] - [address] [place] [address] [place] [address] Laboratory Report Ordering Provider Test Date Status KAILEE BOWMAN 02/24/2023 15:17:25 Final Observation Date Value Abnormality Reference (Units ) Status Iron 02/24/2023 15:17:25 68 45-176 (ug /dL) Final Iron-binding capacity 02/24/2023 15:17:25 250 250-425 (ug/dL) Final Transferrin Sat % 02/24/2023 15:17:25 27 15 -55 (%) Final Performing Location [facility] - [address] [place] [address]
--- OUTSIDE RECORDS SUMMARY | 2023-06-02 11:18 | External Medical Summary | Summary of Care ---
Author Name Unknown Organization [facility] Address [address] [place] [address] Phone [phone] Care Team Providers Care Ultrasonic Tester Name Role Phone Liyah Oseguera MD Primary Care Provider [phone] Reason for Visit * Reason Comments Outpatient Testing Encounter Details Date Type Department Care Team Description 02/24/2023 Laboratory Laboratory [address] [place] [address] [place] [address] [facility] [address] [place] [address] HTN, goal below 140/90; Diabetic hyperosmolar coma (HCC); Type 2 diabetes mellitus with hemoglobin A1c goal of less than 7.0% (HCC); Need for hepatitis B vaccination Allergies No known active allergiesdocumented as of this encounter (statuses as of 02/24/2023) Medications Medication Sig Dispensed Refills Start Date [...] Tablet by mouth in the morning. 0 Active Potassium Chloride 20 MEQ Oral Packet Take 20 mEq by mouth in the morning. 0 Active Thiamine HCl 100 MG Oral Tablet (vitamin B-1) Take 1 Tablet by mouth in the morning. 0 Active Magnesium Oxide 400 (240 Mg) MG [...] and continue. 3 Each 5 02/24/2023 Active documented as of this encounter (statuses as of 02/24/2023) Active Problems Problem Noted Date Acquired absence [...] as of this encounter (statuses as of 02/24/2023) Resolved Problems Problem Noted Date Resolved Date Alcohol dependence with withdrawal, unspecified 03/15/2018 03/15/2018 Body mass index (BMI) of 40.0 to 44.9 in adult 0 11/08/2017 12/20/2017 Overview: Per Obesity protocol #1 documented as of this encounter (statuses as of 02/24/2023) Immunizations Name Administration Dates Next Due Pneumococcal Conjugate Vacci ne, 20-valent ([id number]) 02/24/2023 Pneumococcal Polysaccharide PPV23 (Pneumovax) 05/04/2015 Seasonal [...] Encounters Date Type Specialty Care Team Description 02/25/2023 Home Visit [facility] [address] [facility] [address] 03/03/2023 Telemedicine [facility] Clif Farr CRNP [address] [place] [address] Gavi Apple, Community Health Social Science Research Assistant [address] [place], [place] [address] 05/26/2023 Office Visit Internal Medicine Liyah Oseguera MD [address] [place] [address] Pending Results Name Type Priority Associated Diagnoses Date /Time COMPREHENSIVE METABOLIC PANEL Lab Routine HTN, goal below 140/90 02/24/2023 3:17 PM EDT CBC WITH WBC DIFFERENTIAL AND ANEMIA REFLEX WORKUP Lab Routine Diabetic hyperosmolar coma (HCC) 02/24/2023 3:17 PM EDT HEMOGLOBIN A1C Lab Routine Type 2 diabetes mellitus with hemoglobin A1c goal of less than 7.0% (HCC) 02/24/2023 3:17 PM EDT HEPATITIS B SURFACE ANTIBODY Lab Routine Need for hepatitis B vaccination 02/24/2023 3:17 PM EDT ANEMIA CBC Lab Routine Diabetic hyperosmolar coma (HCC) 02/24/2023 3:17 PM EDT DIFFERENTIAL, AUTOMATED Lab Routine Diabetic hyperosmolar coma ([facility]) 02/24/2023 3:17 PM EDT ANEMIA REFLEX CHEMISTRY HOLD Lab Routine Diabetic hyperosmolar coma ([facility]) 02/24/2023 3:17 PM EDT Health Maintenance Due Date Last Done Comments COVID-19 Vaccine (#1) 1960 DIABETES-EYE EXAM 1980 Cologuard 2007 Colonoscopy 2007 Colorectal Cancer Screening 2007 Fecal Occult Blood Test 2007 Sigmoidoscopy 2007 Zoster Vaccines (1 of 2) 2012 DISCUSS TOBACCO CESSATION (REFER TO SMARTSET #0289) 03/15/2019 03/15/2018 Depression Screening 06/16/2019 06/16/2018 HbA1c 11/07/2022 05/10/2022, 03/15/2018 Albumin/Creatinine Ratio 05/10/2023 05/10/2022 GFR 05/10/2023 05/10/2022, 05/2 12/2018, 10/07/2018, Additional history exists Diabetic Foot Exam 02/25/2024 02/24/2023 DTaP,Tdap,and Td Vaccines (2 - Td or Tdap) 03/25/2027 03/25/2017 Lipid Panel 05/10/2027 05/10/2022, 10/10/2017 LUNG CANCER SCREENING - USE SMARTSET 29005 Completed 12/08/2017 Influenza Vaccine (FLU shot) Completed [...] encounter Visit Diagnoses Diagnosis HTN, goal below 140/90 Unspecified essential hypertension Diabetic hyperosmolar coma (HCC) Type II or unspecified type diabetes mellitus with hyperosmolarity, not stated as uncontrolled Type 2 diabetes mellitus with hemoglobin A1c goal of less than 7.0% (HCC) Need for hepatitis B vaccination Need for prophylactic vaccination and inoculation against viral hepatitis documented in this encounter Care Teams Ultrasonic Tester Relationship Specialty Start Date End Date Liyah Oseguera MD [address] [place] [address] PCP - General Internal Medicine 03/25/17 documented as of this encounter
--- OUTSIDE RECORDS SUMMARY | 2023-06-02 11:18 | External Medical Summary ---
Author Name Unknown Address Unknown Organization K01:[facility] [address] [facility] [place]. [facility] [address] Laboratory Report Ordering Provider Test Date Status CARRI BOWMANLUKASZ 02/24/2023 15:17:25 Final Observation Date Value Abnormality Reference (Units ) Status Retic, % (auto) 02/24/2023 15:17:25 2.43 Above high normal 0.80-1.90 (%) Final Reticulocytes, Absolute 02/24/2023 15:17:25 80.2 31.3-100.1 (K/uL) Final Reticulocyte fraction, immature 02/24/2023 15:17:25 33.3 Above high normal 2.5-20.6 (%) Final Reticulocyte HGB 02/24/2023 15:17:25 32.9 29.7-37.4 (pg) Final Performing Location [facility] [place] [address] [facility] [address]
--- OUTSIDE RECORDS SUMMARY | 2023-06-02 11:18 | External Medical Summary | Summary of Care ---
Author Name Unknown Organization [facility] Address [address] [place] [address] Phone [phone] Care Team Providers Care Manager Managing Name Role Phone Liyah Oseguera MD Primary Care Provider [phone] Reason for Visit * Reason Onset Date Comments Order Request 02/22/2023 Encounter Details Date Type Department Care Team Description 02/22/2023 Telephone General Internal Medicine [facility] [address] [place] [address] Liyah Oseguera MD [address] [place] [address] Order Request Allergies No known active allergiesdocumented as of this encounter (statuses as of 02/24/2023) Medications Medication Sig Dispensed Refills Start Date End Date Status Ketoconazole 2 % cream 0 8 Active Hydrocortisone-Al oe 1 % CREA 0 8 Active Albuterol Sulfate HFA 108 (90 Base) MCG/ACT Inhalation Aerosol SolutionIndicatio ns:Cough Inhale 2 Puffs by mouth every 4 hours as needed for Wheezing. 1 Inhaler 1 8 Active polyethylene glycol 3350 (MIRALAX) 255 gram powderIndications [...] the morning. In the morning.. 0 2 Active DULoxetine HCl 20 MG Oral Capsule Delayed Release Particles (duloxetine)Indic ations:MAYELA (generalized anxiety disorder) Take 1 Capsule (20 mg) by mouth in the morning. Do not cut, crush or chew. 30 Capsule 5 2 Active metFORMIN HCl 500 MG Oral Tablet (Glucophage)Indic ations:Type 2 diabetes mellitus with hemoglobin A1c goal of less than 7.0% ([facility]) Take 1 Tablet (500 mg) by mouth 2 times a day with morning and evening meals. 60 Tablet 5 2 Active senna-docusate (ISRA-COLACE) 8.6-50 MG per tabletIndications :Other constipation Take 2 Tabs by mouth daily. 60 Tab 5 8 02/25/20 23 Discontinued Gabapentin 100 MG Oral Capsule 3 Capsules. 0 8 02/25/20 23 Discontinued(End of Procedure) documented as of this encounter (statuses as [...] Telephone Encounter - Yolanda Cam LPN - 02/24/2023 3:53 PM EDT Patient had an appointment with Dr. Oseguera today and is no longer using syringes for his insulin. * Telephone Encounter - FLORA Hernandez - 02/22/2023 11:19 AM EDT An order was requested for this patient. Name of Requesting Provider: Patient. Order Requested: syringes / half ml to 6 ml / gauge:3.1 Diagnosis/Reason for Request: out of syringes If order request is for Mammogram: Is the patient having any breast symptoms? N/A Is there a chance of ? N/A Has the patient had any breast problems in the past? NA Does the order need to be faxed somewhere? If so, where?: [email or web address] Fax Number, if applicable: [phone] Call Back Number: [phone] If the caller is not a current [...] at Home Lucia Echevarria RN [address] [place] [address] 03/03/2023 Telemedicine [facility] Clif Farr CRNP [address] [place] [address] Gavi Apple, [facility] [address] [place] [address] 05/26/2023 Office Visit Internal Medicine Liyah Oseguera MD [address] [place] [address] Health Maintenance Due Date Last Done Comments COVID-19 Vaccine (#1) 1962 DIABETES-EYE EXAM 1980 Cologuard 2007 Colonoscopy 2007 Colorectal Cancer Screening 2007 Fecal Occult Blood Test 2007 Sigmoidoscopy 2007 Zoster Vaccines (1 of 2) 2012 DISCUSS TOBACCO CESSATION (REFER TO SMARTSET #3291) 03/15/2019 03/15/2018 Depression Screening 06/16/2019 06/16/2018 HbA1c 11/07/2022 05/10/2022, 03/15/2018 Albumin/Creatinine Ratio 05/10/2023 05/10/2022 GFR 05/10/2023 05/10/2022, 10/19, 10/07/2018, Additional history exists Diabetic Foot Exam 02/25/2024 02/24/2023 DTaP,Tdap,and Td Vaccines (2 - Td or Tdap) 03/25/2027 03/25/2017 Lipid Panel 05/10/2027 05/10/2022, 10/10/2017 LUNG CANCER SCREENING - USE SMARTSET 68137 Completed 12/08/2017 Influenza Vaccine (FLU shot) Completed [...] filedocumented as of this encounter Care Teams Manager Managing Relationship Specialty Start Date End Date Liyah Oseguera MD [address] [place] [address] PCP - General Internal Medicine 03/25/17 documented as of this encounter
--- OUTSIDE RECORDS SUMMARY | 2023-06-02 11:19 | External Medical Summary | Summary of Care ---
Author Name Unknown Organization [facility] Address [address] [place] [address] Phone [phone] Care Team Providers Care Sawmill Tally Clerk Name Role Phone Liyah Oseguera MD Primary Care Provider [phone] Reason for Visit * Reason Onset Date Comments Order Request 01/10/2023 Appointment 01/10/2023 Encounter Details Date Type Department Care Team Description 01/10/2023 Telephone General Internal Medicine [facility] [address] [facility] [place] [address] Liyah Oseguera MD [address] [place] [address] Order Request; Appointment Allergies No known active allergiesdocumented as of this encounter (statuses as of 01/18/2023) Medications Medication Sig Dispensed Refills Start Date [...] with morning and evening meals. 0 Active cloNIDine HCl 0.1 MG Oral Tablet (Catapres) Take 0.1 mg by mouth 2 times a day. 0 Active Folic Acid 1 MG Oral Tablet Take 1 mg by mouth daily. 0 Active Potassium Chloride 20 MEQ Oral Packet Take 20 mEq by mouth daily. 0 Active Thiamine HCl 100 MG Oral Tablet (vitamin B-1) Take 100 mg by mouth daily. 0 Active Gabapentin 100 MG Oral Capsule 3 Capsules (300 mg). 0 02/21/2018 Active Lisinopril 20 MG Oral Tablet (Prinivil) 1 Tablet (20 mg). 0 09/30/2018 Active Magnesium Oxide 400 (240 Mg) MG Oral Tablet Take 1 Tablet (400 mg) by mouth in the morning. In the morning.. 0 05/03/2022 Active DULoxetine HCl 20 MG Oral Capsule Delayed Release Particles (duloxetine)Indicati ons:MAYELA (generalized anxiety disorder) Take 1 Capsule (20 mg) by mouth in the morning. Do not cut, crush or chew. 30 Capsule 5 05/10/2022 Active Empagliflozin 10 MG Oral Tablet (Jardiance)Indicatio ns:Type 2 diabetes mellitus with hemoglobin A1c goal of less than 7.0% (HCC) Take 1 Tablet (10 mg) by mouth in the morning. 30 Tablet 5 05/12/2022 Active metFORMIN HCl 500 MG Oral Tablet (Glucophage)Indicati ons:Type 2 diabetes mellitus with hemoglobin A1c goal of less than 7.0% (HCC) Take 1 Tablet (500 mg) by mouth 2 times a day with morning and evening meals. 60 Tablet 5 05/12/2022 Active documented as of this encounter (statuses as of 01/18/2023) Active Problems Problem Noted Date Hypokalemia 05/10/2022 Phantom limb syndrome with pain 05/10/20 Phantom limb syndrome with pain 05/10/20 22 Recurrent acute pancreatitis 03/15/2018 History of acute alcohol intoxication Mild episode of recurrent major depressi ve disorder 10/10/2017 HTN, goal below 140/90 10/10/2017 BMI 27.0-27.9,adult 10/10/2017 Traumatic amputation of leg below knee, right, sequela Alcohol abuse documented as of this encounter (statuses as of 01/18/2023) Resolved Problems Problem Noted Date Resolved Date Alcohol dependence with withdrawal, unspecified 03/15/2018 03/15/2018 Body mass index (BMI) of 40.0 to 44.9 in adult 0 11/08/2017 12/20/2017 Overview: Per Obesity protocol #1 documented as of this encounter (statuses as of 01/18/2023) Immunizations Name Administration Dates Next Due Pneumococcal Polysaccharide PPV23 (Pneumovax) Seasonal Influenza, Quadriva lent, No Preserve, 6 Mons & Above, IM 03/15/2018,03/25/2017 TDAP (age 10 and older)(Boostrix) 03/25/2017 [...] Miscellaneous Notes * Telephone Encounter - FLORA Uriostegui - 01/18/2023 2:18 PM EDT Called pt, scheduled appt on 01/27 Faxed wheelchair order to [facility] 01/18 JAT * Telephone Encounter - Liyah Oseguera MD - 01/14/2023 4:35 PM EDT Done. However insurance may not cover w/o visit Noticed he was in hospital then in [place] In and never showed up for HD He is also due for f/u visit . Please call to schedule * Telephone Encounter - FLORA Alexander - 01/10/2023 4:53 PM EDT Pt requesting an order for a new walker to be sent to [facility]. His is in bad shape documented in this encounter Plan of Treatment Upcoming Encounters Date Type Specialty Care Team Description 01/27/2023 Office Visit Internal Medicine Liyah Oseguera MD [address] [facility], [place] [address] Health Maintenance Due Date Last Done Comments [...] 10/10/2017 LUNG CANCER SCREENING - USE SMARTSET 11750 Completed 12/08/2017 GARDASIL-HPV IMMUNIZATION SERIES Aged Out [...] leg below knee, right, sequela (HCC)- Primary documented in this encounter Care Teams Sawmill Tally Clerk Relationship Specialty Start Date End Date Liyah Oseguera MD [address] [place] [id number] PCP - General Internal Medicine 03/25/17 documented as of this encounter
--- OUTSIDE RECORDS SUMMARY | 2023-06-02 11:19 | External Medical Summary | Summary of Care ---
Author Name Unknown Organization [facility] Address [address] [place] [address] Phone [phone] Care Team Providers Care Chief Commercial Officer Name Role Phone Liyah Oseguera MD Primary Care Provider [phone] Reason for Visit * Reason Onset Date Comments [facility]: Screening 02/14/2023 Encounter Details Date Type Department Care Team Description 02/14/2023 Telephone [facility], [facility] [address] [place] [address] [facility], Nurse [facility] [address] [place] [address] [facility]: Screening Allergies No known active allergiesdocumented as of this encounter (statuses as of 02/18/2023) Medications Medication Sig Dispensed Refills Start Date [...] as of this encounter (statuses as of 02/18/2023) Active Problems Problem Noted Date Hypokalemia 05/10/2022 [...] as of this encounter (statuses as of 02/18/2023) Resolved Problems Problem Noted Date Resolved Date Alcohol dependence with withdrawal, unspecified 03/15/2018 03/15/2018 Body mass index (BMI) of 40.0 to 44.9 in adult 0 11/08/2017 12/20/2017 Overview: Per Obesity protocol #1 documented as of this encounter (statuses as of 02/18/2023) Immunizations Name Administration Dates Next Due Pneumococcal [...] encounter Miscellaneous Notes * Telephone Encounter - Lita Martinez [facility] Sand Screener - 02/18/2023 1:10 PM EDT [facility] Enrollment Form Screening: Referral Source: [facility] Primary Reason for Referral (Select most relevant): No data was found Engagement: Engagement Attempt 1: Contacted - Agreed to home-based services Scheduled appointment information: Appointment 01/25/2023 @ 12:30 pm Appointment 03/03/2023 @ 11:00am [facility]: Has Wi-Fi Advance Care Planning (ACP): No data was found Has Living Will or Advance Directive: No Anticipated Sub-Program: Short-Term Management (less than 3 months) Confirmation of Sub-Program Type (by care steam presser): No data was found Handoff Information: Current care team notified via: [place] [facility] Current telemonitoring equipment: No data was found FLORA Abad * Telephone Encounter - Lizbeth Aaron LPN - 02/14/2023 1:51 PM EDT Umair Harrison was referred as a potential candidate for enrollment for [facility]. A review of this chart was completed and: Umair meets criteria for [facility]. Patient is currently admitted at [facility]. Added to hospital list to f/u with d/c plan. Jump to Episodes of Care to create Episode and document smartforms Referring care team was notified via : [place] [facility] documented in this encounter Plan of Treatment Upcoming Encounters Date Type Specialty Care Team Description 02/24/2023 Office Visit Internal Medicine Liyah Oseguera MD [address] [place] [address] 02/25/2023 Home Visit [facility] Lucia Echevarria RN [address] [place] [address] 03/03/2023 Telemedicine [facility] Clif Farr CRNP [address] [place] [address] Gavi Apple, [facility] [address] [place] [address] Health Maintenance Due Date Last Done Comments [...] 10/10/2017 LUNG CANCER SCREENING - USE SMARTSET 57436 Completed 12/08/2017 GARDASIL-HPV IMMUNIZATION SERIES Aged Out [...] filedocumented as of this encounter Care Teams Chief Commercial Officer Relationship Specialty Start Date End Date Liyah Oseguera MD [address] [place] [address] PCP - General Internal Medicine 03/25/17 documented as of this encounter
--- OUTSIDE RECORDS SUMMARY | 2023-06-02 11:19 | External Medical Summary | Summary of Care ---
Author Name Unknown Organization [facility] Address [address] [place] [address] Phone [phone] Care Team Providers Care Engineering Consultant Name Role Phone Liyah Oseguera MD Primary Care Provider [phone] Reason for Visit * Reason Onset Date Comments [facility]: Screening 02/14/2023 Encounter Details Date Type Department Care Team Description 02/14/2023 Telephone [facility], [facility] [address] [place] [address] [facility], Nurse [facility] [address] [place] [address] [facility]: Screening Allergies No known active allergiesdocumented as of this encounter (statuses as of 02/14/2023) Medications Medication Sig Dispensed Refills Start Date [...] as of this encounter (statuses as of 02/14/2023) Active Problems Problem Noted Date Hypokalemia 05/10/2022 [...] as of this encounter (statuses as of 02/14/2023) Resolved Problems Problem Noted Date Resolved Date Alcohol dependence with withdrawal, unspecified 03/15/2018 03/15/2018 Body mass index (BMI) of 40.0 to 44.9 in adult 0 11/08/2017 12/20/2017 Overview: Per Obesity protocol #1 documented as of this encounter (statuses as of 02/14/2023) Immunizations Name Administration Dates Next Due Pneumococcal [...] encounter Miscellaneous Notes * Telephone Encounter - Lizbeth Aaron LPN - 02/14/2023 1:51 PM EDT Umair Harrison was referred as a potential candidate for enrollment for [facility]. A review of this chart was completed and: Umair meets criteria for [facility]. Patient is currently admitted at [facility]. Added to hospital list to f/u with d/c plan. Jump to Episodes of Care to create Episode and document smartforms Referring care team was notified via : [place] documented in this encounter Plan of Treatment Health Maintenance Due Date Last Done Comments [...] 10/10/2017 LUNG CANCER SCREENING - USE SMARTSET 43148 Completed 12/08/2017 GARDASIL-HPV IMMUNIZATION SERIES Aged Out [...] filedocumented as of this encounter Care Teams Engineering Consultant Relationship Specialty Start Date End Date Liyah Oseguera MD [address] [place] [address], [place] [address] PCP - General Internal Medicine 03/25/17 documented as of this encounter
--- NOTE | 2023-06-02 11:24 | Pharmacy Report ---
Pharmacy Glycemic Short Note 2 - Date of Service June 02, 2023 - Glycemic Short BSG Results (Last 24 hours): 06/02/23 06/02/23 06/02/23 00:00 01:46 02:07 Glucose 263 H Cancelled POC Glucose 234 H 06/02/23 06/02/23 06/02/23 02:48 03:12 05:03 Glucose 249 H POC Glucose 217 H 131 H 06/02/23 06/02/23 06/02/23 05:24 07:08 09:19 Glucose 135 H POC Glucose 126 H 104 H 06/02/23 06/02/23 09:22 10:59 Glucose 107 H POC Glucose 109 H OUTPATIENT ANTIDIABETIC REGIMEN: * Lantus 20 units Q AM * Novolog 4 units SQ with meals * Metformin 1gm PO BID * A1c = 6.5% 04/2023 (per admitting provider's note) ASSESSMENT: * Type 2 diabetic admitted for hyperkalemia, severe hypoglycemia, encephalopathy, possible CVA, severe sepsis from pneumonia * Patient had been experiencing BSGs running lower than usual over the last week * Severe hypoglycemia observed by EMS leading to treatment with D10 en route. BSGs in ED initially in 200s likely from Dextrose provided, but has since trended down to the low 100s. Patient is currently NPO. * Will hold basal insulin at this time given BSG trend and NPO status * Novolog CF and CR initiated by nighttime hospitalist are reasonable starting points. Doses are less that what patient has required in the past, but would prefer to be conservative initially given recent events. PLAN FOR INPATIENT GLYCEMIC CONTROL: * Hold outpatient oral diabetes medications (metformin) * Basal insulin * Hold * Bolus insulin * NovoLog per scale Q 6 hrs * Goal Range: Low 110 mg/dL - High 140 mg/dL * Correction Factor: 25 mg/dL/unit * Nutritional / Prandial insulin per carb ratio of 1 unit per 15 grams CHO consumed
[2023-06-02] MEDS: MULTIVITAMIN TAB PO SCH (11:39)
--- NOTE | 2023-06-02 12:40 | Hospitalist Progress Note ---
Date of Service June 02, 2023 Assessment & Plan (1) Encephalopathy: Plan: Metabolic encephalopathy Able to open eyes with verbal stimuli Profound hypoglycemia -BSG is in the 200s, currently in the low 100s -Pharmacy glycemic consult placed Rule out acute CVA -CT head: No acute process -Did not tolerate brain MRI today Will try again tomorrow, if not possible, patient will have a repeat CT head Acute respiratory failure with hypoxia Right lower lobe pneumonia, possible aspiration pneumonia (or pneumonitis) Possible severe sepsis -Currently on 3.5 L via nasal cannula -Blood cultures pending -IV Zosyn started Continue doxycycline Alcohol intoxication Alcoholism -Alcohol withdrawal protocol ordered Psych meds contributing -Hold for now Metabolic acidosis -In the setting of lactic acidosis -Given IV bicarb -Lactic acid normalized Metabolic acidosis resolved Hyperkalemia secondary to hypovolemia, clinical dehydration, home medications -Resolved Chronic anemia, hemoglobin better than baseline likely secondary to hemoconcentration -Hemoglobin stable ongoing tobacco abuse Nicotine patch as needed. DVT prophylaxis. Lovenox subcu Full code Disposition Pending Admission and Anticipated Discharge Date Admission Date: June 02, 2023 Subjective Follow-up for encephalopathy, etc. Seen resting in bed, sleeping but opens eyes with verbal stimuli Then drifts back to sleep Does not follow commands No signs of distress, pain Discussed with RN, no other signs/symptoms noted today Review of Systems Review of Systems: all noted and negative except for above Physical Exam Physical Exam: General-not oriented, not in distress, breathing with no effort or accessory muscle use Eyes- anicteric Neck- no JVD Lungs- clear breath sounds bilaterally, no rales/wheezes Heart- normal rate, regular rhythm; no murmurs Abdomen- normal bowel sounds, nondistended, soft, nontender Extremities- no pretibial edema, no calf tenderness Neuro-very drowsy, no gross focal neurologic deficits noted Skin- warm & dry Results & Data Results & Data Vital Signs (Past 12 Hours) Vital Signs Temp Pulse Pulse Resp BP BP Pulse Ox 06/02/23 10:42 37.1 C 89 26 H 150/83 H 98 06/02/23 07:06 37.3 C 99 H 21 149/86 H 99 06/02/23 04:31 06/02/23 04:19 117 H 06/02/23 04:15 38.3 C H 111 H 25 H 173/103 H 98 06/02/23 04:15 12/14/23 04:15 38.3 C H 116 H 28 H 163/110 H 98 06/02/23 03:20 116 H 32 H 95 06/02/23 03:20 152/118 H 06/02/23 03:20 38 C H 06/02/23 03:15 38 C H 06/02/23 03:10 122 H 38 H 99 06/02/23 03:10 144/115 H 06/02/23 03:01 186/114 H 06/02/23 03:01 114 H 41 H 100 06/02/23 02:50 172/111 H 06/02/23 02:50 113 H 35 H 100 06/02/23 02:41 116 H 29 H 100 06/02/23 02:41 185/131 H 06/02/23 02:30 115 H 34 H 100 06/02/23 02:30 196/134 H 06/02/23 02:20 165/117 H 06/02/23 02:20 117 H 28 H 98 06/02/23 02:11 118 H 39 H 100 06/02/23 02:11 160/132 H 06/02/23 02:00 115 H 38 H 99 06/02/23 02:00 157/125 H 06/02/23 01:42 37 C 06/02/23 01:40 118 H 38 H 100 06/02/23 01:40 169/113 H 06/02/23 01:34 114 H 25 H 99 06/02/23 01:34 146/106 H 06/02/23 01:21 113 H 31 H 99 06/02/23 01:21 147/126 H 06/02/23 01:10 158/120 H 06/02/23 01:10 111 H 35 H 99 06/02/23 01:00 110 H 30 H 100 06/02/23 01:00 131/105 H 06/02/23 00:50 115 H 34 H 98 06/02/23 00:50 159/130 H 06/02/23 00:41 113 H 25 H 98 06/02/23 00:41 139/58 L Pulse Ox O2 Del Method O2 Del Method O2 Flow Rate O2 Flow Rate 06/02/23 10:42 Room Air 06/02/23 07:06 Oxymask 3.5 06/02/23 04:31 100 Oxymask 6 06/02/23 04:19 06/02/23 04:15 Oxymask 6 06/02/23 04:15 Oxymask 6 06/02/23 04:15 Oxymask 6 06/02/23 03:20 Oxymask 10 06/02/23 03:20 06/02/23 03:20 06/02/23 03:15 06/02/23 03:10 Oxymask 10 06/02/23 03:10 06/02/23 03:01 06/02/23 03:01 Oxymask 10 06/02/23 02:50 06/02/23 02:50 Oxymask 10 06/02/23 02:41 Oxymask 10 06/02/23 02:41 06/02/23 02:30 Oxymask 10 06/02/23 02:30 06/02/23 02:20 06/02/23 02:20 Oxymask 10 06/02/23 02:11 Oxymask 10 06/02/23 02:11 06/02/23 02:00 Oxymask 10 06/02/23 02:00 06/02/23 01:42 06/02/23 01:40 Oxymask 10 06/02/23 01:40 06/02/23 01:34 Oxymask 10 06/02/23 01:34 06/02/23 01:21 Oxymask 10 06/02/23 01:21 06/02/23 01:10 06/02/23 01:10 Oxymask 10 06/02/23 01:00 Oxymask 10 06/02/23 01:00 06/02/23 00:50 Oxymask 10 06/02/23 00:50 06/02/23 00:41 Oxymask 10 06/02/23 00:41 all noted and reviewed including below
[2023-06-02] MEDS: PIPERACILLIN/TAZOBACTAM 4.5 GM in DEXTROSE 5% MINI-B 100 ML IV SCH ×2 (16:12→22:13)
[2023-06-02 16:22] LABS: iSTAT Creatinine 0.7 mg/dl (0.6-1.3); iSTAT Hemoglobin 14.6 g/dl (14.0-18.0); iSTAT Ionized Calcium 1.12 mmol/l (1.12-1.32); iSTAT Potassium 6.7 mmol/L (3.3-5.0)
[2023-06-02 17:31] LABS: BUN Creatinine Ratio 18.1 (10-20); Calcium 8.8 mg/dl (8.6-10.3); Creatinine Clr Calc Pharmacy 116.2 ml/min; Est GFR (African American) 117.5 ml/min; Est GFR (Non-African American) 101.4 ml/min; Potassium 3.8 mmol/L (3.5-5.1)
[2023-06-02] MEDS: SODIUM CHLORIDE 0.9% 1,000 ML IV SCH (19:43)
[2023-06-02] MEDS: DOXYCYCLINE HYCLATE 100 MG CAP PO SCH (20:44)
[2023-06-02 23:19] LABS: BUN Creatinine Ratio 15.4 (10-20); Creatinine Clr Calc Pharmacy 107.3 ml/min; Est GFR (African American) 113.7 ml/min; Est GFR (Non-African American) 98.1 ml/min; Potassium 3.6 mmol/L (3.5-5.1)
[2023-06-03] MEDS ORDERED: METOPROLOL TARTRATE 1 MG/ML VIAL IV STA (01:07)
[2023-06-03] MEDS: INSULIN ASPART PER UNIT CHARGE SC SCH ×5 (01:10→21:00)
[2023-06-03] MEDS ORDERED: GABAPENTIN 600 MG TAB PO ONE (03:37)
[2023-06-03] MEDS ORDERED: LORazepam 3 MG in SYRINGE 1.5 ML IV PRN (03:37)
[2023-06-03] MEDS ORDERED: GABAPENTIN 1200MG ALCOHOL WITHDRAWAL LOAD PO STA (03:37)
[2023-06-03] MEDS ORDERED: Ativan IV Alcohol Withdrawal--Active Protocol IV PRN (03:37)
--- NOTE | 2023-06-03 03:39 | Communication Note ---
Date of Service: June 03, 2023 SBP noted to be 160s. Patient more awake and pulling at Saravia catheter as per RN. AP Possible alcohol withdrawal Initiate gabapentin as per RONNY S protocol.
[2023-06-03 06:24] LABS: BUN Creatinine Ratio 13.5 (10-20); Calcium 9.1 mg/dl (8.6-10.3); Chol HDL Ratio 2.7 (0-5); Creatinine Clr Calc Pharmacy 113.1 ml/min; Est GFR (African American) 116.2 ml/min; Est GFR (Non-African American) 100.3 ml/min; Magnesium 1.6 mg/dl (1.7-2.4); Potassium 3.5 mmol/L (3.5-5.1)
[2023-06-03 06:25] LABS: Basophils # (auto) 0.02 K/uL (0.00-0.20); Basophils % (auto) 0.2 %; Eosinophils # (auto) 0.05 K/uL (0.00-0.50); Eosinophils % (auto) 0.6 %; Hematocrit (blood only) 32.7 % (42.0-52.0); Hemoglobin 11.1 g/dl (14.0-18.0); Immature Granulocytes # (auto) 0.03 K/uL (0.01-0.20); Immature Granulocytes % (auto) 0.4 %; Lymphocytes # (auto) 1.94 K/uL (1.20-3.40); Mean Corpuscular Hemoglobin 27.9 pg (25.0-34.0); Mean Corpuscular Hgb Conc 33.9 g/dL (32.0-36.0); Mean Corpuscular Volume 82.2 fL (80.0-100.0); Mean Platelet Volume 9.2 fL (9.4-12.4); Monocytes # (auto) 0.99 K/uL (0.11-0.59); Monocytes % (auto) 11.7 %; Neutrophils # (auto) 5.42 K/uL (1.40-6.50); Neutrophils % (auto) 64.1 %; Platelet Count 228 K/uL (130-400); RDW Coefficient of Variation 13.2 % (11.5-14.5); RDW Standard Deviation 39.4 fL (36.4-46.3); Red Blood Count 3.98 M/uL (4.70-6.10); White Blood Count 8.45 K/ul (4.8-10.8)
[2023-06-03] MEDS: PIPERACILLIN/TAZOBACTAM 4.5 GM in DEXTROSE 5% MINI-B 100 ML IV SCH ×3 (06:28→20:56)
[2023-06-03] MEDS: ENOXAPARIN INJ 40 MG/0.4 ML SYR SQ SCH (07:34)
[2023-06-03] MEDS: GABAPENTIN 600 MG TAB PO SCH ×3 (07:34→23:18)
[2023-06-03] MEDS: DOXYCYCLINE HYCLATE 100 MG CAP PO SCH ×2 (07:34→20:52)
[2023-06-03] MEDS: THIAMINE HCL 100 MG in SYRINGE 9 ML IV SCH (07:35)
[2023-06-03] MEDS: FOLIC ACID 1 MG in SYRINGE 9.8 ML IV SCH (07:35)
[2023-06-03] MEDS: ASPIRIN 81 MG ECTAB PO SCH (07:35)
[2023-06-03] MEDS: MULTIVITAMIN TAB PO SCH (07:36)
[2023-06-03] MEDS ORDERED: THIAMINE HCL 100 MG TAB PO SCH (09:00)
[2023-06-03] MEDS ORDERED: LANTUS PER UNIT CHARGE SC SCH (11:30)
--- NOTE | 2023-06-03 12:56 | Pharmacy Report ---
Pharmacy Glycemic Short Note 2 - Date of Service June 03, 2023 - Glycemic Short BSG Results (Last 24 hours): 06/02/23 06/02/23 06/02/23 00:10 14:59 16:52 Glucose 128 H POC Glucose 114 H POC Glucose (other) 266 H 06/02/23 06/02/23 06/02/23 17:01 19:13 21:04 Glucose POC Glucose 129 H 137 H 121 H POC Glucose (other) 06/02/23 06/03/23 06/03/23 22:37 00:01 02:20 Glucose 136 H POC Glucose 127 H 147 H POC Glucose (other) 06/03/23 06/03/23 06/03/23 05:22 07:05 11:13 Glucose 139 H POC Glucose 166 H 219 H POC Glucose (other) OUTPATIENT ANTIDIABETIC REGIMEN: * Lantus 20 units Q AM * Novolog 4 units SQ with meals * Metformin 1gm PO BID * A1c = 6.5% 04/2023 (per admitting provider's note) ASSESSMENT: 06/03 * BSGs well controlled over last 24 hrs * BSGs now trending up and diet advanced. Will resume basal insulin, however will give single reduced dose today until we establish PO intake reliable * Novolog doses will be adjusted somewhat to better cover carb intake based upon prior admission data, however will continue to be conservative given recent hypoglycemic events 06/02 * Type 2 diabetic admitted for hyperkalemia, severe hypoglycemia, encephalopathy, possible CVA, severe sepsis from pneumonia * Patient had been experiencing BSGs running lower than usual over the last week * Severe hypoglycemia observed by EMS leading to treatment with D10 en route. BSGs in ED initially in 200s likely from Dextrose provided, but has since trended down to the low 100s. Patient is currently NPO. * Will hold basal insulin at this time given BSG trend and NPO status * Novolog CF and CR initiated by nighttime hospitalist are reasonable starting points. Doses are less that what patient has required in the past, but would prefer to be conservative initially given recent events. PLAN FOR INPATIENT GLYCEMIC CONTROL: * Hold outpatient oral diabetes medications (metformin) * Basal insulin * Lantus 8 units SQ x 1; reevaluate needs tomorrow * Bolus insulin * NovoLog per scale ACHS * Goal Range: Low 110 mg/dL - High 140 mg/dL * Correction Factor: 30 mg/dL/unit * Nutritional / Prandial insulin per carb ratio of 1 unit per 12 grams CHO consumed
--- NOTE | 2023-06-03 14:48 | CT Scan Report ---
HEAD CT NONCONTRAST CT DOSE: 547.75 mGy.cm HISTORY: episode of aphasia, r/o CVA TECHNIQUE: Multiaxial CT images of the head were performed without the use of intravenous contrast. A utomated exposure control was utilized for this study. A dose lowering technique was utilized adheri ng to the principles of ALARA. Comparison: Head CT 06/02/2023. Findings: There is a small fluid level within the right maxillary sinus. The remaining paranasal sinu ses and mastoid air cells are clear. Mild posterior scalp swelling again noted. The calvarium and sku ll base are intact. There is no mass, hematoma, midline shift, or acute infarct. Mild microvascular i schemic change again noted. The ventricles are normal in size. There are old bilateral basal ganglia lacunar infarcts, unchanged. Impression: 1. No acute infarct or intracranial hemorrhage. 2. Small fluid level within the right maxillary sinus. 3. Old bilateral basal ganglia lacunar infarcts again noted. ACT 112: Negative or not required by law. Electronically signed by: Harshad Avina M.D. 06/03/2023 2:46 PM
[2023-06-03] MEDS: LORazepam 2 MG in SYRINGE 1 ML IV PRN (15:14)
[2023-06-03] MEDS: LORazepam 1 MG in SYRINGE 0.5 ML IV PRN (15:14)
--- NOTE | 2023-06-03 15:23 | Hospitalist Progress Note ---
Date of Service June 03, 2023 Assessment & Plan (1) Encephalopathy: Plan: METABOLIC ENCEPHALOPATHY, multifactorial: Mental status improving, answering more questions appropriately Still having some forgetfulness PROFOUND HYPOGLYCEMIA -BSG is in the 200s, currently at 166-219 -Pharmacy glycemic consult placed RULE OUT ACUTE CVA -CT head: No acute process -Did not tolerate brain MRI today CT head:1. No acute infarct or intracranial hemorrhage. 2. Small fluid level within the right maxillary sinus. 3. Old bilateral basal ganglia lacunar infarcts again noted. -Will need to be on aspirin and statin ACUTE RESPIRATORY FAILURE WITH HYPOXIA RIGHT LOWER LOBE PNEUMONIA, POSSIBLE ASPIRATION PNEUMONIA (OR PNEUMONITIS) POSSIBLE SEVERE SEPSIS -Weaned off oxygen -Blood cultures: Negative so far -IV Zosyn plus doxycycline ALCOHOL INTOXICATION ALCOHOLISM -Alcohol withdrawal protocol ordered Psych meds contributing -On Cymbalta-hold for now HYPERTENSIVE URGENCY Start amlodipine 5 mg p.o. daily METABOLIC ACIDOSIS -In the setting of lactic acidosis -Given IV bicarb -Lactic acid normalized Metabolic acidosis resolved Hyperkalemia secondary to hypovolemia, clinical dehydration, home medications -Resolved Chronic anemia, hemoglobin better than baseline likely secondary to hemoconcentration -Hemoglobin stable ongoing tobacco abuse Nicotine patch as needed. DVT prophylaxis. Lovenox subcu Full code Disposition Pending Admission and Anticipated Discharge Date Admission Date: June 02, 2023 Subjective Follow-up for encephalopathy, etc. Seen resting in bed, easily awakened Awake and alert, oriented x 1-2 ; answers most questions appropriately No recollection of events leading up to admission He states he feels okay overall Denies headache, dizziness, focal neurologic deficits no chest pain, dyspnea, palpitations, dizziness No abdominal pain, nausea vomiting No other symptoms Review of Systems Review of Systems: all noted and negative except for above Physical Exam Physical Exam: General- oriented x 1-2, not in distress, speaks in sentences with no effort or accessory muscle use Eyes- anicteric Neck- no JVD Lungs- clear breath sounds bilaterally, no rales/wheezes Heart- normal rate, regular rhythm; no murmurs Abdomen- normal bowel sounds, nondistended, soft, nontender Extremities- no pretibial edema, no calf tenderness Neuro- alert, oriented x 1-2; no gross focal neurologic deficits Skin- warm & dry Results & Data Results & Data Vital Signs (Past 12 Hours) Vital Signs Temp Pulse Resp BP Pulse Ox Pulse Ox O2 Del Method 06/03/23 11:15 37.4 C 87 22 155/97 H 95 Room Air 06/03/23 07:06 36.4 C L 76 19 153/102 H 100 Room Air 06/03/23 04:31 93 O2 Del Method 06/03/23 11:15 06/03/23 07:06 06/03/23 04:31 Room Air all noted and reviewed including below
[2023-06-03] MEDS ORDERED: amLODIPine BESYLATE 5 MG TAB PO ONE (15:30)
[2023-06-03] MEDS: SODIUM CHLORIDE 0.9% 1,000 ML IV SCH (17:04)
[2023-06-04] MEDS: INSULIN ASPART PER UNIT CHARGE SC SCH ×6 (00:22→21:23)
[2023-06-04] MEDS: LORazepam 2 MG in SYRINGE 1 ML IV PRN ×3 (01:13→21:45)
[2023-06-04] MEDS: PIPERACILLIN/TAZOBACTAM 4.5 GM in DEXTROSE 5% MINI-B 100 ML IV SCH ×3 (05:35→21:23)
[2023-06-04 08:53] LABS: Basophils # (auto) 0.02 K/uL (0.00-0.20); Basophils % (auto) 0.3 %; Eosinophils # (auto) 0.15 K/uL (0.00-0.50); Hematocrit (blood only) 36.3 % (42.0-52.0); Hemoglobin 12.3 g/dl (14.0-18.0); Immature Granulocytes # (auto) 0.02 K/uL (0.01-0.20); Immature Granulocytes % (auto) 0.3 %; Lymphocytes # (auto) 1.69 K/uL (1.20-3.40); Lymphocytes % (auto) 23.1 %; Mean Corpuscular Hemoglobin 28.3 pg (25.0-34.0); Mean Corpuscular Hgb Conc 33.9 g/dL (32.0-36.0); Mean Corpuscular Volume 83.6 fL (80.0-100.0); Monocytes % (auto) 13.6 %; Neutrophils # (auto) 4.45 K/uL (1.40-6.50); Neutrophils % (auto) 60.7 %; Platelet Count 225 K/uL (130-400); RDW Coefficient of Variation 13.7 % (11.5-14.5); RDW Standard Deviation 41.5 fL (36.4-46.3); Red Blood Count 4.34 M/uL (4.70-6.10); White Blood Count 7.33 K/ul (4.8-10.8)
[2023-06-04 09:09] LABS: BUN Creatinine Ratio 9.5 (10-20); Calcium 9.3 mg/dl (8.6-10.3); Creatinine Clr Calc Pharmacy 99.6 ml/min; Est GFR (African American) 110.3 ml/min; Est GFR (Non-African American) 95.2 ml/min; Potassium 3.5 mmol/L (3.5-5.1)
[2023-06-04] MEDS: DOXYCYCLINE HYCLATE 100 MG CAP PO SCH ×2 (09:43→20:01)
[2023-06-04] MEDS: MULTIVITAMIN TAB PO SCH (09:43)
[2023-06-04] MEDS: THIAMINE HCL 100 MG in SYRINGE 9 ML IV SCH (09:44)
[2023-06-04] MEDS: FOLIC ACID 1 MG in SYRINGE 9.8 ML IV SCH (09:44)
[2023-06-04] MEDS: ASPIRIN 81 MG ECTAB PO SCH (09:45)
[2023-06-04] MEDS: amLODIPine BESYLATE 5 MG TAB PO SCH (09:45)
[2023-06-04] MEDS: GABAPENTIN 600 MG TAB PO SCH ×2 (09:46→14:41)
[2023-06-04] MEDS: ENOXAPARIN INJ 40 MG/0.4 ML SYR SQ SCH (09:47)
--- NOTE | 2023-06-04 10:50 | Pharmacy Report ---
- Date of Service June 04, 2023 - Pharmacy CVA/TIA Medication Review Medications to Prevent Stroke handout has been added to the patients discharge packet. Antiplatelet(s) * Aspirin 81 mg PO daily Cholesterol * Provider to order a statin today per [place] Text conversation DVT Prophylaxis * Enoxaparin SQ Therapeutic Anticoagulation * No history of Afib/Aflutter noted Type 2 Diabetes * Patient has T2DM, but per Dr. Chávez, a diabetes medication with proven CVD benefit will be deferred to their outpatient provider due to familiarity with risks/benefits of such therapies. "Medications to prevent stroke" handout has already been added to the patient's discharge packet, which instructs the patient to follow up with their outpatient provider to evaluate which diabetes medication with proven CVD benefit is best for them
[2023-06-04] MEDS: LORazepam 1 MG in SYRINGE 0.5 ML IV PRN (11:03)
--- NOTE | 2023-06-04 14:13 | Pharmacy Report ---
Pharmacy Glycemic Short Note 2 - Date of Service June 04, 2023 - Glycemic Short BSG Results (Last 24 hours): 06/03/23 06/03/23 06/03/23 16:24 20:24 20:50 Glucose POC Glucose 234 H 46 L* 145 H 06/04/23 06/04/23 06/04/23 00:20 05:43 07:31 Glucose POC Glucose 125 H 161 H 148 H 06/04/23 06/04/23 08:27 11:09 Glucose 211 H POC Glucose 207 H OUTPATIENT ANTIDIABETIC REGIMEN: * Lantus 20 units Q AM * Novolog 4 units SQ with meals * Metformin 1gm PO BID * A1c = 6.5% 04/2023 (per admitting provider's note) ASSESSMENT: 06/04 * BSGs yesterday were [phone] and overnight were 125-161 mg/dL. Fasting today is 148 mg/dL. * Patient received 16 units of insulin (8 units of basal and 8 units of bolus). * Continue Lantus 8 units daily as fasting is within goal range. * Hypoglycemic event most likely secondary to over-correction. Loosen CF. 06/03 * BSGs well controlled over last 24 hrs * BSGs now trending up and diet advanced. Will resume basal insulin, however will give single reduced dose today until we establish PO intake reliable * Novolog doses will be adjusted somewhat to better cover carb intake based upon prior admission data, however will continue to be conservative given recent hypoglycemic events 06/02 * Type 2 diabetic admitted for hyperkalemia, severe hypoglycemia, encephalopathy, possible CVA, severe sepsis from pneumonia * Patient had been experiencing BSGs running lower than usual over the last week * Severe hypoglycemia observed by EMS leading to treatment with D10 en route. BSGs in ED initially in 200s likely from Dextrose provided, but has since trended down to the low 100s. Patient is currently NPO. * Will hold basal insulin at this time given BSG trend and NPO status * Novolog CF and CR initiated by nighttime hospitalist are reasonable starting points. Doses are less that what patient has required in the past, but would prefer to be conservative initially given recent events. PLAN FOR INPATIENT GLYCEMIC CONTROL: * Hold outpatient oral diabetes medications (metformin) * Basal insulin * Lantus 8 units SQ QDD * Bolus insulin * NovoLog per scale ACHS * Goal Range: Low 120 mg/dL - High 160 mg/dL * Correction Factor: 40 mg/dL/unit * Nutritional / Prandial insulin per carb ratio of 1 unit per 10 grams CHO consumed
[2023-06-04] MEDS: SODIUM CHLORIDE 0.9% 1,000 ML IV SCH (14:40)
--- NOTE | 2023-06-04 15:19 | Hospitalist Progress Note ---
Date of Service June 04, 2023 Assessment & Plan (1) Encephalopathy: Plan: METABOLIC ENCEPHALOPATHY, multifactorial: Mental status improving, answering more questions appropriately Still having some forgetfulness PROFOUND HYPOGLYCEMIA -BSG is in the 200s, currently at 211/207 Was hypoglycemic overnight -Pharmacy glycemic consult on board ACUTE CVA UNLIKELY -CT head: No acute process -Did not tolerate brain MRI today CT head:1. No acute infarct or intracranial hemorrhage. 2. Small fluid level within the right maxillary sinus. 3. Old bilateral basal ganglia lacunar infarcts again noted. Continue usual aspirin Will add Lipitor Monitor LFTs ACUTE RESPIRATORY FAILURE WITH HYPOXIA RIGHT LOWER LOBE PNEUMONIA, POSSIBLE ASPIRATION PNEUMONIA (OR PNEUMONITIS) POSSIBLE SEVERE SEPSIS -Weaned off oxygen -Blood cultures: Negative so far -IV Zosyn plus doxycycline, improving gradually Monitor closely ALCOHOL INTOXICATION ALCOHOLISM -Alcohol withdrawal protocol ordered No signs of overt alcohol withdrawal PSYCH MEDS CONTRIBUTING -On Cymbalta-hold for now HYPERTENSIVE URGENCY Started amlodipine 5 mg p.o. daily Improving METABOLIC ACIDOSIS -In the setting of lactic acidosis -Given IV bicarb -Lactic acid normalized Metabolic acidosis resolved Hyperkalemia secondary to hypovolemia, clinical dehydration, home medications -Resolved Chronic anemia, hemoglobin better than baseline likely secondary to hemoconcentration -Hemoglobin stable ongoing tobacco abuse Nicotine patch as needed. DVT prophylaxis. Lovenox subcu Full code Disposition Pending Admission and Anticipated Discharge Date Admission Date: June 02, 2023 Subjective Follow-up for encephalopathy, hypoglycemia, pneumonia, etc. Was confused overnight, SENIOR SCRUM MASTER one-to-one ordered Seen resting in bed, sitting up, awake and alert, not in distress Oriented x 2, answers most questions appropriately States he feels improved compared to yesterday Denies shortness of breath, cough, chest pain No fevers or chills, nausea vomiting Appetite is good, finishing meals No other symptoms No other issues noted per space studies faculty member of Systems Review of Systems: all noted and negative except for above Physical Exam Physical Exam: General- oriented x 2, not in distress, speaks in sentences with no effort or accessory muscle use Eyes- anicteric Neck- no JVD Lungs- clear breath sounds bilaterally, no crackles or wheezing Heart- normal rate, regular rhythm; no murmurs Abdomen- normal bowel sounds, nondistended, soft, nontender Extremities- no pretibial edema, no calf tenderness Neuro- alert, oriented x 2; no gross focal neurologic deficits Skin- warm & dry Results & Data Results & Data Vital Signs (Past 12 Hours) Vital Signs Pulse Resp BP Pulse Ox Pulse Ox O2 Del Method O2 Del Method 06/04/23 10:05 87 20 144/90 H 97 Room Air 06/04/23 08:00 Room Air 06/04/23 07:45 93 H 22 144/92 H 98 Room Air 06/04/23 04:00 91 Room Air all noted and reviewed including below
[2023-06-04] MEDS ORDERED: LANTUS PER UNIT CHARGE SC SCH (16:30)
[2023-06-04] MEDS: ADVANCED PROBIOTIC 1250 MG CAPSULE PO SCH (18:13)
[2023-06-04] MEDS: ATORVASTATIN 20 MG TAB PO SCH (20:01)
[2023-06-05] MEDS: LORazepam 1 MG in SYRINGE 0.5 ML IV PRN (00:15)
[2023-06-05] MEDS ORDERED: METOPROLOL TARTRATE 1 MG/ML VIAL IV STA (02:04)
[2023-06-05] MEDS ORDERED: chlordiazePOXIDE ALCOHOL WITHDRAWL 50MG PO STA (02:05)
[2023-06-05] MEDS ORDERED: MAGNESIUM SULFATE / D5W 1 GM/100 ML BAG IV ONE ×2 (02:07→04:58)
[2023-06-05] MEDS ORDERED: POTASSIUM CHLORIDE CRTAB 20 MEQ TABCR PO STA (02:08)
--- NOTE | 2023-06-05 02:10 | Communication Note ---
Date of Service: June 05, 2023 Patient with uncontrolled BP and tachycardia and agitation despite multiple doses of Ativan. AP Uncontrolled hypertension Alcohol withdrawal Resume home Coreg Librium taper in place of gabapentin Restraints as needed
[2023-06-05] MEDS: chlordiazePOXIDE HCl 25 MG CAP PO SCH ×4 (02:22→20:10)
[2023-06-05 03:41] LABS: Basophils # (auto) 0.02 K/uL (0.00-0.20); Basophils % (auto) 0.3 %; Eosinophils # (auto) 0.19 K/uL (0.00-0.50); Eosinophils % (auto) 2.9 %; Hematocrit (blood only) 37.1 % (42.0-52.0); Hemoglobin 12.5 g/dl (14.0-18.0); Immature Granulocytes # (auto) 0.01 K/uL (0.01-0.20); Immature Granulocytes % (auto) 0.2 %; Lymphocytes % (auto) 28.7 %; Mean Corpuscular Hemoglobin 28.2 pg (25.0-34.0); Mean Corpuscular Hgb Conc 33.7 g/dL (32.0-36.0); Mean Corpuscular Volume 83.6 fL (80.0-100.0); Mean Platelet Volume 9.2 fL (9.4-12.4); Monocytes # (auto) 0.86 K/uL (0.11-0.59); Neutrophils # (auto) 3.63 K/uL (1.40-6.50); Neutrophils % (auto) 54.9 %; Platelet Count 240 K/uL (130-400); RDW Coefficient of Variation 13.5 % (11.5-14.5); RDW Standard Deviation 40.9 fL (36.4-46.3); Red Blood Count 4.44 M/uL (4.70-6.10); White Blood Count 6.61 K/ul (4.8-10.8)
[2023-06-05] MEDS ORDERED: GABAPENTIN 600 MG TAB PO SCH (03:45)
[2023-06-05 03:56] LABS: BUN Creatinine Ratio 11.4 (10-20); Calcium 9.6 mg/dl (8.6-10.3); Creatinine Clr Calc Pharmacy 105.9 ml/min; Est GFR (African American) 113.1 ml/min; Est GFR (Non-African American) 97.6 ml/min; Magnesium 1.7 mg/dl (1.7-2.4); Potassium 3.7 mmol/L (3.5-5.1)
[2023-06-05] MEDS ORDERED: carvediloL 3.125 MG TAB PO STA (05:44)
[2023-06-05] MEDS: PIPERACILLIN/TAZOBACTAM 4.5 GM in DEXTROSE 5% MINI-B 100 ML IV SCH ×3 (06:37→21:14)
[2023-06-05] MEDS: INSULIN ASPART PER UNIT CHARGE SC SCH ×4 (07:30→21:11)
[2023-06-05] MEDS ORDERED: hydrALAZINE HCL 20 MG/ML VIAL IV ONE (07:55)
[2023-06-05] MEDS ORDERED: carvediloL 3.125 MG TAB PO SCH (08:00)
[2023-06-05] MEDS: LORazepam 2 MG in SYRINGE 1 ML IV PRN (08:01)
[2023-06-05] MEDS: DOXYCYCLINE HYCLATE 100 MG CAP PO SCH ×2 (08:05→20:09)
[2023-06-05] MEDS: ASPIRIN 81 MG ECTAB PO SCH (08:05)
[2023-06-05] MEDS: MULTIVITAMIN TAB PO SCH (08:05)
[2023-06-05] MEDS: ENOXAPARIN INJ 40 MG/0.4 ML SYR SQ SCH (08:07)
[2023-06-05] MEDS: amLODIPine BESYLATE 5 MG TAB PO SCH (08:07)
[2023-06-05] MEDS: THIAMINE HCL 100 MG in SYRINGE 9 ML IV SCH (08:07)
[2023-06-05] MEDS: FOLIC ACID 1 MG in SYRINGE 9.8 ML IV SCH (08:07)
[2023-06-05] MEDS: ADVANCED PROBIOTIC 1250 MG CAPSULE PO SCH (08:08)
[2023-06-05] MEDS ORDERED: hydrALAZINE HCL 20 MG/ML VIAL IV PRN (08:38)
[2023-06-05] MEDS ORDERED: LANTUS PER UNIT CHARGE SC ONE ×2 (09:00→15:00)
--- NOTE | 2023-06-05 15:15 | Hospitalist Progress Note ---
Date of Service June 05, 2023 Assessment & Plan (1) Encephalopathy: Plan: METABOLIC ENCEPHALOPATHY, multifactorial: Mental status improving, answering more questions appropriately Still having some forgetfulness PROFOUND HYPOGLYCEMIA -BSG 143-188 -Pharmacy glycemic consult on board ACUTE CVA UNLIKELY -CT head: No acute process -Did not tolerate brain MRI today CT head:1. No acute infarct or intracranial hemorrhage. 2. Small fluid level within the right maxillary sinus. 3. Old bilateral basal ganglia lacunar infarcts again noted. Continue usual aspirin Lipitor added Monitor LFTs ACUTE RESPIRATORY FAILURE WITH HYPOXIA RIGHT LOWER LOBE PNEUMONIA, POSSIBLE ASPIRATION PNEUMONIA (OR PNEUMONITIS) POSSIBLE SEVERE SEPSIS -Weaned off oxygen -Blood cultures: Negative so far -IV Zosyn plus doxycycline, improving gradually Monitor closely ALCOHOL WITHDRAWAL, POSSIBLE DTS ALCOHOLISM -Gabapentin protocol changed to Librium Continue IV Ativan Continue thiamine folate IV Monitor closely Discussed with RN at the bedside PSYCH MEDS CONTRIBUTING -On Cymbalta-hold for now HYPERTENSIVE URGENCY Started amlodipine 5 mg p.o. daily Elevated again likely secondary to ongoing alcohol withdrawal Hydralazine as needed ordered METABOLIC ACIDOSIS -In the setting of lactic acidosis -Given IV bicarb -Lactic acid normalized Metabolic acidosis resolved Hyperkalemia secondary to hypovolemia, clinical dehydration, home medications -Resolved Chronic anemia, hemoglobin better than baseline likely secondary to hemoconcentration -Hemoglobin stable ongoing tobacco abuse Nicotine patch as needed. DVT prophylaxis. Lovenox subcu Full code Disposition Pending Admission and Anticipated Discharge Date Admission Date: June 02, 2023 Subjective Follow-up for encephalopathy pneumonia, etc. Events overnight noted Seen with RN ADVICE at the bedside and also RN Sitting up in bed, awake, alert Tries to answers questions, oriented x 1-2 States he feels okay overall Denies shortness of breath, chest pain, cough No abdominal pain, nausea vomiting Was having hallucinations overnight No other new symptoms Review of Systems Review of Systems: all noted and negative except for above Physical Exam Physical Exam: General- oriented x1-2, but does not answer other questions appropriately, not in distress, speaks in sentences with no effort or accessory muscle use Eyes- anicteric Neck- no JVD Lungs- clear breath sounds bilaterally, no rales/wheezes Heart-mild tachycardia, regular rhythm; no murmurs Abdomen- normal bowel sounds, nondistended, soft, nontender Extremities- no pretibial edema, no calf tenderness Neuro- alert, somewhat confused, no new gross focal neurologic deficits Skin- warm & dry Results & Data Results & Data Vital Signs (Past 12 Hours) Vital Signs Temp Pulse Pulse Resp BP Pulse Ox Pulse Ox 06/05/23 14:39 36.9 C 94 H 20 144/102 H 97 06/05/23 05:27 36.9 C 124 H 26 H 166/116 H 94 06/05/23 04:00 96 06/05/23 03:54 36.9 C 93 H 25 H 164/119 H 94 O2 Del Method O2 Del Method 06/05/23 14:39 Room Air 06/05/23 05:27 Room Air 06/05/23 04:00 Room Air 06/05/23 03:54 Room Air all noted and reviewed including below
[2023-06-05] MEDS: SODIUM CHLORIDE 0.9% 1,000 ML IV SCH ×2 (18:36→23:11)
[2023-06-05] MEDS: carvediloL 3.125 MG TAB PO SCH (18:36)
[2023-06-05] MEDS: ATORVASTATIN 20 MG TAB PO SCH (20:09)
[2023-06-06] MEDS: chlordiazePOXIDE HCl 25 MG CAP PO SCH ×3 (03:58→19:51)
[2023-06-06] MEDS: PIPERACILLIN/TAZOBACTAM 4.5 GM in DEXTROSE 5% MINI-B 100 ML IV SCH (05:22)
[2023-06-06] MEDS: ASPIRIN 81 MG ECTAB PO SCH (08:38)
[2023-06-06] MEDS: ADVANCED PROBIOTIC 1250 MG CAPSULE PO SCH (08:38)
[2023-06-06] MEDS: MULTIVITAMIN TAB PO SCH (08:38)
[2023-06-06] MEDS: DOXYCYCLINE HYCLATE 100 MG CAP PO SCH ×2 (08:39→20:59)
[2023-06-06] MEDS: carvediloL 3.125 MG TAB PO SCH ×2 (08:39→16:42)
[2023-06-06] MEDS: ENOXAPARIN INJ 40 MG/0.4 ML SYR SQ SCH (08:42)
[2023-06-06] MEDS: amLODIPine BESYLATE 5 MG TAB PO SCH (08:42)
[2023-06-06] MEDS: FOLIC ACID 1 MG in SYRINGE 9.8 ML IV SCH (08:43)
[2023-06-06] MEDS ORDERED: LANTUS PER UNIT CHARGE SC SCH (09:00)
[2023-06-06] MEDS: INSULIN ASPART PER UNIT CHARGE SC SCH ×4 (09:02→21:00)
[2023-06-06] MEDS: THIAMINE HCL 100 MG in SYRINGE 9 ML IV SCH (09:04)
--- NOTE | 2023-06-06 12:20 | Pharmacy Report ---
Pharmacy Glycemic Short Note 2 - Date of Service June 06, 2023 - Glycemic Short BSG Results (Last 24 hours): 06/05/23 06/05/23 06/06/23 16:15 20:18 07:29 POC Glucose 203 H 179 H 156 H 06/06/23 11:32 POC Glucose 192 H OUTPATIENT ANTIDIABETIC REGIMEN: * Lantus 20 units SC AM * Novolog 4 units SC with meals (2 units SC with snacks) * Metformin 1 g PO BID * HbA1c = 6.5% (05/04/23; per review of EPIC records) ASSESSMENT: 06/06: * Umair received 20 units of insulin yesterday, 10 units each of basal + bolus. BSGs were: [phone] mg/dL. * Fasting BSG was 156 mg/dL this AM. Will continue will current basal dose but move it to AM dosing which reflects home regimen. * No changes to Novolog today as BSGs have been labile. * No change in stressors. Remains on Zosyn and PO Doxycycline. NS infusing at 50 mL/hr. Ordered and tolerating a T2DM diet. 06/04: * BSGs yesterday were [phone] and overnight were 125-161 mg/dL. Fasting today is 148 mg/dL. * Patient received 16 units of insulin (8 units of basal and 8 units of bolus). * Continue Lantus 8 units daily as fasting is within goal range. * Hypoglycemic event most likely secondary to over-correction. Loosen CF. 06/03: * BSGs well controlled over last 24 hrs * BSGs now trending up and diet advanced. Will resume basal insulin, however will give single reduced dose today until we establish PO intake reliable * Novolog doses will be adjusted somewhat to better cover carb intake based upon prior admission data, however will continue to be conservative given recent hypoglycemic events 06/02: * Type 2 diabetic admitted for hyperkalemia, severe hypoglycemia, encephalopathy, possible CVA, severe sepsis from pneumonia * Patient had been experiencing BSGs running lower than usual over the last week * Severe hypoglycemia observed by EMS leading to treatment with D10 en route. BSGs in ED initially in 200s likely from Dextrose provided, but has since trended down to the low 100s. Patient is currently NPO. * Will hold basal insulin at this time given BSG trend and NPO status * Novolog CF and CR initiated by nighttime hospitalist are reasonable starting points. Doses are less that what patient has required in the past, but would prefer to be conservative initially given recent events. PLAN FOR INPATIENT GLYCEMIC CONTROL: * Hold outpatient oral diabetes medications * Basal insulin * Lantus 10 units SC AM * Bolus insulin * NovoLog per scale ACHS * Goal Range: Low 120 mg/dL - High 160 mg/dL * Correction Factor: 45 mg/dL/unit * Nutritional / Prandial insulin per carb ratio of 1 unit per 7 grams CHO consumed
[2023-06-06] MEDS: UNASYN 3000MG / NS q6h IV SCH ×2 (13:39→19:52)
[2023-06-06] MEDS ORDERED: GABAPENTIN 600 MG TAB PO SCH (15:45)
--- NOTE | 2023-06-06 17:58 | Hospitalist Progress Note ---
Date of Service June 06, 2023 Assessment & Plan (1) Encephalopathy: Plan: METABOLIC ENCEPHALOPATHY, multifactorial: Mental status improving, answering more questions appropriately Still having some forgetfulness PROFOUND HYPOGLYCEMIA -Pharmacy glycemic consult on board ACUTE CVA UNLIKELY -CT head: No acute process -Did not tolerate brain MRI today CT head:1. No acute infarct or intracranial hemorrhage. 2. Small fluid level within the right maxillary sinus. 3. Old bilateral basal ganglia lacunar infarcts again noted. Continue usual aspirin Lipitor added Monitor LFTs ACUTE RESPIRATORY FAILURE WITH HYPOXIA RIGHT LOWER LOBE PNEUMONIA, POSSIBLE ASPIRATION PNEUMONIA (OR PNEUMONITIS) POSSIBLE SEVERE SEPSIS -Weaned off oxygen -Blood cultures: Negative so far -IV Zosyn plus doxycycline, improving gradually -transitioned to Unasyn, Doxycycline ALCOHOL WITHDRAWAL, POSSIBLE DTS ALCOHOLISM -Gabapentin protocol changed to Librium Continue IV Ativan Continue thiamine folate IV - improving continue Librium taper PSYCH MEDS CONTRIBUTING -On Cymbalta-hold for now HYPERTENSIVE URGENCY Started amlodipine 5 mg p.o. daily Elevated again likely secondary to ongoing alcohol withdrawal Hydralazine as needed ordered improving METABOLIC ACIDOSIS -In the setting of lactic acidosis -Given IV bicarb -Lactic acid normalized Metabolic acidosis resolved Hyperkalemia secondary to hypovolemia, clinical dehydration, home medications -Resolved Chronic anemia, hemoglobin better than baseline likely secondary to hemoconcentration -Hemoglobin stable ongoing tobacco abuse Nicotine patch as needed. DVT prophylaxis. Lovenox subcu Full code Disposition Pending Admission and Anticipated Discharge Date Admission Date: June 02, 2023 Subjective ff up for encephalopathy, etc seen resting in bed, comfortable Awake and alert, still somewhat confused no chest pain, dyspnea, palpitations, dizziness No shortness of breath, cough Denies hallucinations No other symptoms Review of Systems Review of Systems: all noted and negative except for above Physical Exam Physical Exam: General- oriented x 1, not in distress, speaks in sentences with no effort or accessory muscle use Eyes- anicteric Neck- no JVD Lungs- clear breath sounds bilaterally Heart- normal rate, regular rhythm; no murmurs Abdomen- normal bowel sounds, nondistended, soft, nontender Extremities- no pretibial edema, no calf tenderness Neuro- alert, oriented x 1; no gross focal neurologic deficits Skin- warm & dry Results & Data Results & Data Vital Signs (Past 12 Hours) Vital Signs Temp Pulse Pulse Resp BP Pulse Ox O2 Del Method 06/06/23 16:00 Room Air 06/06/23 15:08 36.6 C 89 18 115/84 95 Room Air 06/06/23 11:35 36.9 C 99 H 16 103/79 95 Room Air 06/06/23 07:36 97 H 16 106/75 98 Room Air all noted and reviewed including below
[2023-06-06] MEDS: ATORVASTATIN 20 MG TAB PO SCH (21:00)
[2023-06-07] MEDS: UNASYN 3000MG / NS q6h IV SCH ×4 (01:21→19:23)
[2023-06-07] MEDS: chlordiazePOXIDE HCl 25 MG CAP PO SCH ×3 (04:06→19:23)
[2023-06-07] MEDS: SODIUM CHLORIDE 0.9% 1,000 ML IV SCH ×2 (07:19→08:02)
[2023-06-07] MEDS: THIAMINE HCL 100 MG in SYRINGE 9 ML IV SCH (08:15)
[2023-06-07] MEDS: FOLIC ACID 1 MG in SYRINGE 9.8 ML IV SCH (08:15)
[2023-06-07] MEDS: ENOXAPARIN INJ 40 MG/0.4 ML SYR SQ SCH (08:15)
[2023-06-07] MEDS: INSULIN ASPART PER UNIT CHARGE SC SCH ×4 (08:16→21:13)
[2023-06-07] MEDS: LANTUS PER UNIT CHARGE SC SCH (08:16)
[2023-06-07] MEDS: ADVANCED PROBIOTIC 1250 MG CAPSULE PO SCH (08:17)
[2023-06-07] MEDS: ASPIRIN 81 MG ECTAB PO SCH (08:17)
[2023-06-07] MEDS: DOXYCYCLINE HYCLATE 100 MG CAP PO SCH ×2 (08:17→21:12)
[2023-06-07] MEDS: amLODIPine BESYLATE 5 MG TAB PO SCH (08:17)
[2023-06-07] MEDS: MULTIVITAMIN TAB PO SCH (08:17)
[2023-06-07] MEDS: carvediloL 3.125 MG TAB PO SCH ×2 (08:17→16:54)
--- NOTE | 2023-06-07 13:44 | Hospitalist Progress Note ---
Date of Service June 07, 2023 Assessment & Plan (1) Encephalopathy: Plan: METABOLIC ENCEPHALOPATHY, multifactorial: As seems to be improving, answering more questions appropriately PROFOUND HYPOGLYCEMIA -Questionable adherence/correct administration of insulin at home -Pharmacy glycemic consult on board Will consult special education paraeducator Patient also counseled Anticipate discharge to care home facility for now ACUTE CVA ruled out -CT head: No acute process -Did not tolerate brain MRI Repeat CT head: 1. No acute infarct or intracranial hemorrhage. 2. Small fluid level within the right maxillary sinus. 3. Old bilateral basal ganglia lacunar infarcts again noted. Continue usual aspirin Lipitor added Monitor LFTs ACUTE RESPIRATORY FAILURE WITH HYPOXIA RIGHT LOWER LOBE PNEUMONIA, POSSIBLE ASPIRATION PNEUMONIA (OR PNEUMONITIS) POSSIBLE SEVERE SEPSIS -Weaned off oxygen -Blood cultures: Negative -IV Zosyn plus doxycycline, improving gradually -transitioned to Unasyn, Doxycycline: Antibiotic day number 6 out of 7 ALCOHOL WITHDRAWAL, POSSIBLE DTS ALCOHOLISM -Gabapentin protocol changed to Librium due to escalating RONNY scores, tachycardia, hypertension Improving Continue to complete Librium taper, Ativan as needed, thiamine and folate acid PSYCH MEDS CONTRIBUTING -On Cymbalta-hold for now HYPERTENSIVE URGENCY Started amlodipine 5 mg p.o. daily Hydralazine as needed ordered Resolved METABOLIC ACIDOSIS -In the setting of lactic acidosis -Given IV bicarb -Lactic acid normalized Metabolic acidosis resolved Hyperkalemia secondary to hypovolemia, clinical dehydration, home medications -Resolved Chronic anemia, hemoglobin better than baseline likely secondary to hemoconcentration -Hemoglobin stable ongoing tobacco abuse Nicotine patch as needed. DVT prophylaxis. Lovenox subcu Full code Disposition Transition to care home facility when medically stable-mental status further improves PT/OT eval Admission and Anticipated Discharge Date Admission Date: June 02, 2023 Subjective Follow-up for encephalopathy, pneumonia, hypoglycemia, and subsequent dev elopment of alcohol withdrawal/early DTs, etc. Seen resting in bed, sleeping, but easily awakened Oriented x 1-2, answering more questions appropriately States he feels fine overall Except for mild epigastric discomfort Burning No nausea or vomiting Appetite is okay no chest pain, dyspnea, palpitations, dizziness No other symptoms No other issues per civil engineering intern of Systems Review of Systems: all noted and negative except for above Physical Exam Physical Exam: General- oriented x 1-2, not in distress, speaks in sentences with no effort or accessory muscle use Eyes- anicteric Neck- no JVD Lungs- clear breath sounds bilaterally, no rales/wheezes Heart- normal rate, regular rhythm; no murmurs Abdomen- normal bowel sounds, nondistended, soft, nontender Extremities- no pretibial edema, no calf tenderness Neuro- alert, oriented x1-2; no gross focal neurologic deficits Skin- warm & dry Results & Data Results & Data Vital Signs (Past 12 Hours) Vital Signs Temp Pulse Pulse Resp BP Pulse Ox Pulse Ox 06/07/23 10:46 36.6 C 95 H 17 114/74 98 06/07/23 08:00 94 H 06/07/23 08:00 06/07/23 07:17 37.0 C 99 H 18 126/72 97 06/07/23 04:00 95 06/07/23 02:58 37.0 C 104 H 18 113/78 94 O2 Del Method O2 Del Method 06/07/23 10:46 Room Air 06/07/23 08:00 06/07/23 08:00 Room Air 06/07/23 07:17 Room Air 06/07/23 04:00 Room Air 06/07/23 02:58 Room Air all noted and reviewed including below
--- NOTE | 2023-06-07 14:16 | Pharmacy Report ---
Pharmacy Glycemic Short Note 2 - Date of Service June 07, 2023 - Glycemic Short BSG Results (Last 24 hours): 06/06/23 06/06/23 06/07/23 16:31 20:16 07:19 POC Glucose 100 H 86 216 H 06/07/23 11:35 POC Glucose 184 H OUTPATIENT ANTIDIABETIC REGIMEN: * Lantus 20 units SC AM * Novolog 4 units SC with meals (2 units SC with snacks) * Metformin 1 g PO BID * HbA1c = 6.5% (05/04/23; per review of EPIC records) ASSESSMENT: 06/07: * AM fasting BSG elevated - will increase Lantus * Post-prandial BSG's below goal x2 yesterday, but not hypoglycemic. Will slightly loosen CHO ratio 06/06: * Umair received 20 units of insulin yesterday, 10 units each of basal + bolus. BSGs were: [phone] mg/dL. * Fasting BSG was 156 mg/dL this AM. Will continue will current basal dose but move it to AM dosing which reflects home regimen. * No changes to Novolog today as BSGs have been labile. * No change in stressors. Remains on Zosyn and PO Doxycycline. NS infusing at 50 mL/hr. Ordered and tolerating a T2DM diet. 06/04: * BSGs yesterday were [phone] and overnight were 125-161 mg/dL. Fasting today is 148 mg/dL. * Patient received 16 units of insulin (8 units of basal and 8 units of bolus). * Continue Lantus 8 units daily as fasting is within goal range. * Hypoglycemic event most likely secondary to over-correction. Loosen CF. 06/03: * BSGs well controlled over last 24 hrs * BSGs now trending up and diet advanced. Will resume basal insulin, however will give single reduced dose today until we establish PO intake reliable * Novolog doses will be adjusted somewhat to better cover carb intake based upon prior admission data, however will continue to be conservative given recent hypoglycemic events 06/02: * Type 2 diabetic admitted for hyperkalemia, severe hypoglycemia, encephalopathy, possible CVA, severe sepsis from pneumonia * Patient had been experiencing BSGs running lower than usual over the last week * Severe hypoglycemia observed by EMS leading to treatment with D10 en route. BSGs in ED initially in 200s likely from Dextrose provided, but has since trended down to the low 100s. Patient is currently NPO. * Will hold basal insulin at this time given BSG trend and NPO status * Novolog CF and CR initiated by nighttime hospitalist are reasonable starting points. Doses are less that what patient has required in the past, but would prefer to be conservative initially given recent events. PLAN FOR INPATIENT GLYCEMIC CONTROL: * Hold outpatient oral diabetes medications * Basal insulin * Lantus 14 units SC AM * Bolus insulin * NovoLog per scale ACHS * Goal Range: Low 120 mg/dL - High 160 mg/dL * Correction Factor: 45 mg/dL/unit * Nutritional / Prandial insulin per carb ratio of 1 unit per 8 grams CHO consumed
[2023-06-07] MEDS: ATORVASTATIN 20 MG TAB PO SCH (21:12)
[2023-06-08] MEDS: UNASYN 3000MG / NS q6h IV SCH ×4 (02:15→20:05)
[2023-06-08] MEDS: INSULIN ASPART PER UNIT CHARGE SC SCH ×4 (08:21→20:08)
[2023-06-08] MEDS: LANTUS PER UNIT CHARGE SC SCH (08:22)
[2023-06-08] MEDS: ENOXAPARIN INJ 40 MG/0.4 ML SYR SQ SCH (08:22)
[2023-06-08] MEDS: FOLIC ACID 1 MG in SYRINGE 9.8 ML IV SCH (08:23)
[2023-06-08] MEDS: MULTIVITAMIN TAB PO SCH (08:23)
[2023-06-08] MEDS: DOXYCYCLINE HYCLATE 100 MG CAP PO SCH ×2 (08:23→20:08)
[2023-06-08] MEDS: amLODIPine BESYLATE 5 MG TAB PO SCH (08:23)
[2023-06-08] MEDS: ASPIRIN 81 MG ECTAB PO SCH (08:23)
[2023-06-08] MEDS: carvediloL 3.125 MG TAB PO SCH ×2 (08:23→17:11)
[2023-06-08] MEDS: ADVANCED PROBIOTIC 1250 MG CAPSULE PO SCH (08:23)
[2023-06-08] MEDS: THIAMINE HCL 100 MG in SYRINGE 9 ML IV SCH (08:23)
--- NOTE | 2023-06-08 10:43 | Pharmacy Report ---
Pharmacy Glycemic Short Note 2 - Date of Service June 08, 2023 - Glycemic Short BSG Results (Last 24 hours): 06/07/23 06/07/23 06/07/23 11:35 16:14 20:39 POC Glucose 184 H 85 111 H 06/08/23 07:26 POC Glucose 130 H OUTPATIENT ANTIDIABETIC REGIMEN: * Lantus 20 units SC AM * Novolog 4 units SC with meals (2 units SC with snacks) * Metformin 1 g PO BID * HbA1c = 6.5% (05/04/23; per review of EPIC records) ASSESSMENT: 06/08: * AM fasting improved - maintain Lantus dose * Two day trend on 06/06 and 06/07 where dinner and HS BSG's were below goal but lunch BSG was >180 mg/dL. Will utilize a tighter CHO ratio with breakfast only and loosen at lunch, dinner, and HS checks 06/07: * AM fasting BSG elevated - will increase Lantus * Post-prandial BSG's below goal x2 yesterday, but not hypoglycemic. Will slightly loosen CHO ratio 06/06: * Umair received 20 units of insulin yesterday, 10 units each of basal + bolus. BSGs were: [phone] mg/dL. * Fasting BSG was 156 mg/dL this AM. Will continue will current basal dose but move it to AM dosing which reflects home regimen. * No changes to Novolog today as BSGs have been labile. * No change in stressors. Remains on Zosyn and PO Doxycycline. NS infusing at 50 mL/hr. Ordered and tolerating a T2DM diet. 06/04: * BSGs yesterday were [phone] and overnight were 125-161 mg/dL. Fasting today is 148 mg/dL. * Patient received 16 units of insulin (8 units of basal and 8 units of bolus). * Continue Lantus 8 units daily as fasting is within goal range. * Hypoglycemic event most likely secondary to over-correction. Loosen CF. 06/03: * BSGs well controlled over last 24 hrs * BSGs now trending up and diet advanced. Will resume basal insulin, however will give single reduced dose today until we establish PO intake reliable * Novolog doses will be adjusted somewhat to better cover carb intake based upon prior admission data, however will continue to be conservative given recent hypoglycemic events 06/02: * Type 2 diabetic admitted for hyperkalemia, severe hypoglycemia, encephalopathy, possible CVA, severe sepsis from pneumonia * Patient had been experiencing BSGs running lower than usual over the last week * Severe hypoglycemia observed by EMS leading to treatment with D10 en route. BSGs in ED initially in 200s likely from Dextrose provided, but has since trended down to the low 100s. Patient is currently NPO. * Will hold basal insulin at this time given BSG trend and NPO status * Novolog CF and CR initiated by nighttime hospitalist are reasonable starting points. Doses are less that what patient has required in the past, but would prefer to be conservative initially given recent events. PLAN FOR INPATIENT GLYCEMIC CONTROL: * Hold outpatient oral diabetes medications * Basal insulin * Lantus 14 units SC AM * Bolus insulin * NovoLog per scale ACHS * Goal Range: Low 120 mg/dL - High 160 mg/dL * Correction Factor: 45 mg/dL/unit * Carb ratio: 7 g CHO/unit with breakfast. 10 g CHO/unit with lunch, dinner, and bedtime
--- NOTE | 2023-06-08 13:19 | Hospitalist Progress Note ---
Date of Service June 08, 2023 Assessment & Plan (1) Encephalopathy: Plan: Patient is a 62-year-old male with past medical history of hypertension, hyperlipidemia, type 2 diabetes mellitus, chronic pancreatitis who presented to the ED with altered mental status. Reportedly, blood glucose was found to be 11 when EMS arrived. He received to 250 ml of D10 and was brought to the hospital. METABOLIC ENCEPHALOPATHY Hypoglycemia Alcohol withdrawal Patient presented to the ED with hypoglycemia and altered mental status Reportedly had blood glucose of 11 Mg per DL when EMS first arrived -CT head personally reviewed: No acute intracranial findings. Small fluid level within the right maxillary sinus. Blood glucose well-controlled during the hospitalization. Glargine decreased to 14 unit in a.m. from 20 units at home. Obtain repeat HbA1c Obtain vitamin B12 level On tapering dose of Librium. Will also start him on high-dose thiamine for possible Wernicke's encephalopathy ACUTE RESPIRATORY FAILURE WITH HYPOXIA RIGHT LOWER LOBE PNEUMONIA CT chest shows subtle groundglass opacities noted scattered throughout the inferior right upper lobe, right middle lobe and right lower lobe -Weaned off oxygen -Blood cultures: No growth till date Was previously on doxycycline and Zosyn; switched over to Unasyn and doxycycline. Plan to treat for 7 days ALCOHOL WITHDRAWAL, Alcohol use disorder On Librium taper. Will need outpatient follow-up with addiction medicine for management of alcohol use disorder. Mood disorder -On Cymbalta-hold for now HYPERTENSIVE URGENCY Started amlodipine 5 mg p.o. daily Hydralazine as needed ordered Resolved Hyperkalemia -Resolved; Chronic anemia, -Hemoglobin stable ongoing tobacco abuse Nicotine patch as needed. DVT prophylaxis. Lovenox subcu Full code Disposition PT OT recommends rehab. Patient is getting IV thiamine for possible Wernicke's encephalopathy and IV antibiotics for pneumonia. Possible discharge to rehab next few days Time spent evaluating patient, direct bedside care, chart review, placing orders, interpretation of diagnostic studies, discussion with patient, as well as other required patient management activities is 50 minutes Please note the above document was generated using voice recognition software. It may contain grammatical, syntax or spelling errors. Any formal questions or concerns about the content, text or information contained within the body of this dictation should be directly addressed to the provider for clarification Admission and Anticipated Discharge Date Admission Date: June 02, 2023 Subjective Patient seen and examined at bedside. Is lying in the bed comfortably. He is able to answer questions. He denies any pain or discomfort. He is oriented to time, place and person. Review of Systems Review of Systems: All systems reviewed & are unremarkable except as noted in Subjective Physical Exam Physical Exam: General- oriented x 2(self, place), not in distress, speaks in sentences with no effort or accessory muscle use Lungs- clear breath sounds bilaterally, no rales/wheezes Heart- normal rate, regular rhythm; no murmurs Abdomen- normal bowel sounds, nondistended, soft, nontender Extremities- no pretibial edema, no calf tenderness Neuro- alert, oriented x2(self, place); no gross focal neurologic deficits Skin- warm & dry Results & Data Results & Data Vital Signs (Past 12 Hours) Vital Signs Temp Pulse Pulse Resp BP BP Pulse Ox 06/08/23 11:00 36.8 C 85 20 113/80 94 06/08/23 08:00 82 06/08/23 06:39 36.6 C 85 18 114/66 97 06/08/23 03:18 36.6 C 86 20 126/96 96 O2 Del Method 06/08/23 11:00 Room Air 06/08/23 08:00 06/08/23 06:39 Room Air 06/08/23 03:18 Room Air Laboratory Results Laboratory Results WBC 6.61 K/ul (4.8-10.8) 06/05/23 03:06 RBC 4.44 M/uL (4.70-6.10) L 06/05/23 03:06 Hgb 12.5 g/dl (14.0-18.0) L 06/05/23 03:06 POC Hgb 14.3 g/dl (14.0-18.0) 06/02/23 00:10 POC Hgb 14.6 g/dl (14.0-18.0) 06/02/23 00:10 Hct 37.1 % (42.0-52.0) L 06/05/23 03:06 POC Hct 42 % (42-52) 06/02/23 00:10 POC Hct 43 % (42-52) 06/02/23 00:10 MCV 83.6 fL (80.0-100.0) 06/05/23 03:06 MCH 28.2 pg (25.0-34.0) 06/05/23 03:06 MCHC 33.7 g/dL (32.0-36.0) 06/05/23 03:06 RDW Std Deviation 40.9 fL (36.4-46.3) 06/05/23 03:06 RDW Coeff of Miguel 13.5 % (11.5-14.5) 06/05/23 03:06 Plt Count 240 K/uL (130-400) 06/05/23 03:06 MPV 9.2 fL (9.4-12.4) L 06/05/23 03:06 Immature Gran % (Auto) 0.2 % 06/05/23 03:06 Neut % (Auto) 54.9 % 06/05/23 03:06 Lymph % (Auto) 28.7 % 06/05/23 03:06 Corson % (Auto) 13.0 % 06/05/23 03:06 Eos % (Auto) 2.9 % 06/05/23 03:06 Baso % (Auto) 0.3 % 06/05/23 03:06 Neut # (Auto) 3.63 K/uL (1.40-6.50) 06/05/23 03:06 Lymph # (Auto) 1.90 K/uL (1.20-3.40) 06/05/23 03:06 Corson # (Auto) 0.86 K/uL (0.11-0.59) H 06/05/23 03:06 Eos # (Auto) 0.19 K/uL (0.00-0.50) 06/05/23 03:06 Baso # (Auto) 0.02 K/uL (0.00-0.20) 06/05/23 03:06 Immature Gran # (Auto) 0.01 K/uL (0.01-0.20) 06/05/23 03:06 POC pH 7.23 (7.35-7.45) L 06/02/23 00:10 POC pCO2 39 mmHg (35-46) 06/02/23 00:10 POC pO2 58 mmHg (80-95) L 06/02/23 00:10 POC HCO3 16 joe/L (19-24) L 06/02/23 00:10 POC Total CO2 17 mmol/L (24-31) L 06/02/23 00:10 POC Base Excess -11.0 joe/L (-9-1.8) L 06/02/23 00:10 POC ABG O2 Sat 84.0 % (90-95) L 06/02/23 00:10 VBG pH 7.39 (7.36-7.41) 06/02/23 05:24 VBG pCO2 44 mmHg (38-50) 06/02/23 05:24 VBG pO2 49 mmHg 06/02/23 05:24 VBG HCO3 27 mmol/L 06/02/23 05:24 VBG O2 Saturation 80.4 % 06/02/23 05:24 VBG Base Excess 1.2 mEq/L 06/02/23 05:24 POC Sodium 129 mmol/L (135-144) L 06/02/23 00:10 POC Sodium 130 mmol/L (135-144) L 06/02/23 00:10 Sodium 137 mmol/L (136-145) 06/05/23 03:06 POC Potassium 5.3 mmol/L (3.3-5.0) H 06/02/23 00:10 POC Potassium 6.7 mmol/L (3.3-5.0) H* 06/02/23 00:10 Potassium 3.7 mmol/L (3.5-5.1) 06/05/23 03:06 POC Chloride 98 mmol/L (101-112) L 06/02/23 00:10 Chloride 103 mmol/L (98-107) 06/05/23 03:06 Carbon Dioxide 25 mmol/L (21-32) 06/05/23 03:06 POC Total CO2 21 mmol/L (24-31) L 06/02/23 00:10 Anion Gap 9 (3-11) 06/05/23 03:06 POC Anion Gap 17.0 mmol/L (16-25) 06/02/23 00:10 POC BUN 16 mg/dl (7-18) 06/02/23 00:10 BUN 9 mg/dl (6-23) 06/05/23 03:06 Creatinine 0.79 mg/dl (0.6-1.4) 06/05/23 03:06 POC Creatinine 0.7 mg/dl (0.6-1.3) 06/02/23 00:10 Est Cr Clr Drug Dosing 105.9 ml/min 06/05/23 03:06 Est GFR ( Amer) 113.1 ml/min 06/05/23 03:06 Est GFR (Non-Af Amer) 97.6 ml/min 06/05/23 03:06 BUN/Creatinine Ratio 11.4 (10-20) 06/05/23 03:06 Glucose 200 mg/dl (70-99(Fasting)) H 06/05/23 03:06 POC Glucose 260 mg/dl (70-99) H 06/08/23 11:02 POC Glucose (other) 266 mg/dl (70-99) H 06/02/23 00:10 Osmolality 296 mOsm/kg (280-300) 06/02/23 00:00 Lactate 1.4 mmol/L (0.4-2.0) 06/02/23 05:35 Calcium 9.6 mg/dl (8.6-10.3) 06/05/23 03:06 POC Ioniz Calcium Mena 1.12 mmol/l (1.12-1.32) 06/02/23 00:10 Magnesium 1.7 mg/dl (1.7-2.4) 06/05/23 03:06 Total Bilirubin 0.3 mg/dl (0.2-1.0) 06/02/23 00:00 AST 16 U/L (13-39) 06/02/23 00:00 ALT 8 U/L (7-52) 06/02/23 00:00 Alkaline Phosphatase 101 U/L (34-104) 06/02/23 00:00 Ammonia 22.0 umol/L (18-72) 06/02/23 09:22 Total Creatine Kinase 134 U/L (30-223) 06/02/23 02:48 Troponin I High Sens 4.6 pg/ml (0-20) 06/02/23 00:00 Total Protein 7.8 gm/dl (6.0-8.3) 06/02/23 00:00 Albumin 4.4 gm/dl (3.4-5.0) 06/02/23 00:00 Globulin 3.4 gm/dl (2.5-4.0) 06/02/23 00:00 Albumin/Globulin Ratio 1.3 (0.9-2) 06/02/23 00:00 Triglycerides 180 mg/dl (0-150) H 06/03/23 05:22 Cholesterol 158 mg/dl (0-200) 06/03/23 05:22 LDL Cholesterol, Calc 63 mg/dl 06/03/23 05:22 VLDL Cholesterol, Calc 36 mg/dl (0-30) H 06/03/23 05:22 HDL Cholesterol 59 mg/dl 06/03/23 05:22 Cholesterol/HDL Ratio 2.7 (0-5) 06/03/23 05:22 Lipase 8 U/L (11-82) L 06/02/23 02:48 Procalcitonin < 0.05 ng/ml (0-0.5) 06/02/23 00:00 TSH 1.350 uIu/ml (0.300-4.500) 06/02/23 00:00 Urine Color Yellow 06/02/23 00:37 Urine Appearance Clear (Clear) 06/02/23 00:37 Urine pH 5.0 (4.5-7.5) 06/02/23 00:37 Ur Specific Stowell 1.028 (1.000-1.030) 06/02/23 00:37 Urine Protein Trace (Negative) H 06/02/23 00:37 Urine Glucose (UA) 3+ (Negative) H 06/02/23 00:37 Urine Ketones 1+ (Negative) H 06/02/23 00:37 Urine Blood Negative (Negative) 06/02/23 00:37 Urine Nitrite Negative (Negative) 06/02/23 00:37 Urine Bilirubin Negative (Negative) 06/02/23 00:37 Urine Urobilinogen Negative (Negative) 06/02/23 00:37 Ur Leukocyte Esterase Negative (Negative) 06/02/23 00:37 Urine WBC (Auto) 0 /hpf (0-5) 06/02/23 00:37 Urine RBC (Auto) 0-4 /hpf (0-4) 06/02/23 00:37 U Hyaline Cast (Auto) 0 /lpf (0-5) 06/02/23 00:37 U Epithel Cells (Auto) 5-10 /lpf (0-5) H 06/02/23 00:37 Urine Bacteria (Auto) Negative (Negative) 06/02/23 00:37 Salicylates < 3.0 mg/dl (3.0-30) L 06/02/23 05:24 Urine Opiates Screen Neg (Neg) 06/02/23 00:37 Ur Methadone, Qual Neg (Neg) 06/02/23 00:37 Acetaminophen 5 ug/ml (10-30) L 06/02/23 05:24 Urine Barbiturates Neg (Neg) 06/02/23 00:37 Ur Phencyclidine (PCP) Neg (Neg) 06/02/23 00:37 U Amphetamin/Meth Scrn Neg (Neg) 06/02/23 00:37 MDMA (Ecstasy) Screen Neg (Neg) 06/02/23 00:37 U Benzodiazepines Scrn Neg (Neg) 06/02/23 00:37 Ur Cocaine Metabolite Neg (Neg) 06/02/23 00:37 U Marijuana (THC) Screen Neg (Neg) 06/02/23 00:37 Ethyl Alcohol mg/dL 32.3 mg/dl (<10.0) H 06/02/23 00:00 Lyme Disease IgG Ab Negative (Negative) 06/02/23 05:24 Lyme Disease IgM Ab Negative (Negative) 06/02/23 05:24 SARS-CoV-2 (PCR) NEGATIVE (Negative) 06/02/23 Unknown Influenza Type A (PCR) Negative (Neg) 06/02/23 Unknown Influenza Type B (PCR) Negative (Neg) 06/02/23 Unknown RSV (RT-PCR) Negative (Neg) 06/02/23 Unknown SARS-CoV-2, RNA, NAAT NEGATIVE (NEGATIVE) 06/02/23 00:40 Impressions Chest X-Ray 06/02/23 00:04 XR chest 1V portable HISTORY: 62 years-old Male weakness COMPARISON: Chest CT of same day TECHNIQUE: AP view of the chest FINDINGS: Cardiomediastinal and hilar silhouettes are within normal limits. No pneumothorax, pleural effusion or overt pulmonary edema. Subtle patchy ill- defined opacities throughout the right lung. Bones appear grossly intact with degenerative changes of the right shoulder. IMPRESSION: Mild patchy ill-defined right lung opacities are suggestive of a mild multifocal pneumonia. ACT 112: Negative or not required by law. The above report was generated using voice recognition software. It may contain grammatical, syntax or spelling errors. Electronically signed by: Bj Karimi M.D. 06/02/2023 8:31 AM Head CTA 06/02/23 00:05 CR Exam(s): CTA HEAD With Contrast IV Amt: 116 ml opti 320 EXAM: CT Angiography Head With Intravenous Contrast CLINICAL HISTORY: ams. TECHNIQUE: Axial computed tomographic angiography images of the head with intravenous contrast. CTDI is 45.02 mGy and DLP is 2082.46 mGy-cm. Automated exposure control was utilized for the study. A dose lowering technique was utilized adhering to the principles of ALARA. MIP reconstructed images were created and reviewed. CONTRAST: Patient received 116 ml opti 320 of IV contrast COMPARISON: No relevant prior studies available. FINDINGS: Limitations: There is motion artifact, which degrades image quality on multiple image slices. Right internal carotid artery: Atherosclerotic calcification of the cavernous segment of the right internal carotid artery. The petrous and supraclinoid segments are patent. Intracranial segment is patent with no significant stenosis. No aneurysm. Right anterior cerebral artery: Unremarkable. No occlusion or significant stenosis. No aneurysm. Right middle cerebral artery: Unremarkable. No occlusion or significant stenosis. No aneurysm. Right posterior cerebral artery: Unremarkable. No occlusion or significant stenosis. No aneurysm. Right vertebral artery: The right vertebral artery is small in caliber but is patent. Left internal carotid artery: Atherosclerotic calcification of the cavernous segment of the left internal carotid artery. The petrous and supraclinoid segments are patent. Intracranial segment is patent with no significant stenosis. No aneurysm. Left anterior cerebral artery: Unremarkable. No occlusion or significant stenosis. No aneurysm. Left middle cerebral artery: Unremarkable. No occlusion or significant stenosis. No aneurysm. Left posterior cerebral artery: Unremarkable. No occlusion or significant stenosis. No aneurysm. Left vertebral artery: Unremarkable as visualized. Basilar artery: There is motion artifact through the basilar artery. No obvious focal stenosis. No occlusion or obvious dissection. No aneurysm. Brain: No abnormal parenchymal enhancement identified. IMPRESSION: Negative intracranial CTA examination. No significant stenosis or occlusion identified. Communications: Call Doctor Stroke Electronically signed by: Matt Thorpe MD 06/02/23 01:00 AM Neck CTA 06/02/23 00:05 CR Exam(s): CTA NECK With Contrast IV Amt: 116 ml opti 320 EXAM: CT Angiography Neck With Intravenous Contrast CLINICAL HISTORY: ams. TECHNIQUE: Routine carotid CT angiography protocol was performed with intravenous contrast. NASCET criteria using the distal ICAs for comparison were used for evaluation of stenoses. CTDI is 45.02 mGy and DLP is 2082.46 mGy-cm. Automated exposure control was utilized for the study. A dose lowering technique was utilized adhering to the principles of ALARA. MIP reconstructed images were created and reviewed. CONTRAST: Patient received 116 ml opti 320 of IV contrast COMPARISON: None. FINDINGS: Limitations: There is motion/swallowing artifact, which degrades image quality on multiple image slices, particularly through the proximal internal carotid artery region. VASCULATURE: Right common carotid artery: Unremarkable. No occlusion or significant stenosis. No dissection. Right internal carotid artery: Atherosclerotic calcification of the right proximal internal carotid artery, extending to the carotid bifurcation. No narrowing by NASCET criteria. The mid to distal internal carotid artery is patent. Right external carotid artery: Unremarkable. No occlusion. Right vertebral artery: Mild to moderate ostial narrowing of the right vertebral artery. The right vertebral artery is small in caliber but is otherwise patent without stenosis or occlusion. Left common carotid artery: Unremarkable. No occlusion or significant stenosis. No dissection. Left internal carotid artery: The left internal carotid artery is patent, accounting for motion artifact. Left external carotid artery: Unremarkable. No occlusion. Left vertebral artery: Unremarkable. No occlusion or significant stenosis. No dissection. Brachiocephalic and subclavian arteries: The proximal great vessels demonstrate normal origin pattern without ostial stenosis. Aorta: The aortic arch is patent without dissection or aneurysm. NECK: Bones/joints: Unremarkable. No acute fracture. Soft tissues: Unremarkable. Lung apices: Clear. CAROTID STENOSIS REFERENCE USING NASCET CRITERIA: % ICA stenosis = (1 - narrowest ICA diameter/diameter of distal cervical ICA) x 100. Mild - <50% stenosis. Moderate - 50-69% stenosis. Severe - 70-94% stenosis. Near occlusion - 95-99% stenosis. Occluded - 100% stenosis. IMPRESSION: Mild to moderate ostial stenosis of the proximal right vertebral artery. Otherwise negative cervical CTA examination, accounting for motion artifact. Communications: Call Doctor Stroke Electronically signed by: Matt Thorpe MD 06/02/23 01:03 AM Abdomen/Pelvis CT 06/02/23 02:53 Exam(s): CT ABDOMEN + PELVIS Without Contrast EXAM: CT Abdomen and Pelvis Without Intravenous Contrast CLINICAL HISTORY: nv. TECHNIQUE: Axial computed tomography images of the abdomen and pelvis without intravenous contrast. CTDI is 27.69 mGy and DLP is 1267.76 mGy-cm. Automated exposure control was utilized for the study. A dose lowering technique was utilized adhering to the principles of ALARA. COMPARISON: Unenhanced CT abdomen and pelvis dated 09/22/2022 FINDINGS: Limitations: There is respiratory artifact, which degrades image quality throughout the examination. Lung bases: Unremarkable. No mass. No consolidation. ABDOMEN: Liver: The unenhanced liver demonstrates no focal abnormality. Gallbladder and bile ducts: Unremarkable. No calcified stones. No ductal dilation. Pancreas: Diffuse calcifications throughout the small pancreas are similar to the previous examination. Evaluation for subtle peripancreatic fat stranding is somewhat limited by respiratory artifact. No ductal dilation or loculated pseudocysts. Spleen: Unremarkable. No splenomegaly. Adrenals: Unremarkable. No mass. Kidneys and ureters: The kidneys demonstrate some residual enhancement with excreted contrast in the renal collecting systems and intermittently throughout the ureters. No obstructing stones. No hydronephrosis. Stomach and bowel: The stomach is moderately distended with gas and fluid. No bowel obstruction. Evaluation the bowel mucosa is limited without contrast and respiratory artifact. PELVIS: Appendix: No findings to suggest acute appendicitis. Bladder: The bladder is decompressed with a Saravia catheter in position. There is contrast in the bladder limiting evaluation for bladder stones. Reproductive: Unremarkable as visualized. ABDOMEN and PELVIS: Intraperitoneal space: Unremarkable. No free air. No significant fluid collection. Bones/joints: Prior ORIF of the left proximal femur and hip. No acute osseous abnormality. No dislocation. Soft tissues: Unremarkable. Vasculature: Unremarkable. No abdominal aortic aneurysm. Lymph nodes: Unremarkable. No enlarged lymph nodes. IMPRESSION: 1. There is respiratory artifact, which degrades image quality throughout the examination. 2. Diffuse calcifications throughout the small pancreas are similar to the previous examination and most consistent with chronic pancreatitis. Evaluation for subtle peripancreatic fat stranding is somewhat limited by respiratory artifact. No ductal dilation or loculated pseudocysts. 3. No bowel obstruction. No free intraperitoneal fluid or pneumoperitoneum. 4. Excreted contrast in the renal collecting systems and ureters. Minimal contrast in the bladder with Saravia catheter in position. Electronically signed by: Matt Thorpe MD 06/02/23 05:[address] 06/02/23 02:53 Exam(s): CT CHEST Without Contrast EXAM: CT Chest Without Intravenous Contrast CLINICAL HISTORY: low o2. TECHNIQUE: Axial computed tomography images of the chest without intravenous contrast. CTDI is 27.69 mGy and DLP is 1267.76 mGy-cm. Automated exposure control was utilized for the study. A dose lowering technique was utilized adhering to the principles of ALARA. COMPARISON: No relevant prior studies available. FINDINGS: Artifacts: Scatter artifact likely related to patient's arm position. Limitations: There is respiratory artifact, which degrades image quality on multiple image slices. Lungs: Subtle ground-glass opacities noted scattered throughout the inferior right upper lobe, the right middle lobe and right lower lobe. The left lung appears to be well aerated, accounting for respiratory artifact, without definite focal consolidation. Pleural space: Unremarkable. No pneumothorax. No significant effusion. Heart: The cardiac chambers are normal in size. Coronary artery calcification of the proximal to mid LAD distribution is of uncertain clinical significance. No pericardial effusion. Bones/joints: Moderately severe degenerative changes of the right shoulder. No acute osseous abnormality. Soft tissues: Unremarkable. Vasculature: The thoracic aorta is normal in caliber with minimal atherosclerotic calcification of the aortic arch. Detailed evaluation limited without contrast. Lymph nodes: Unremarkable. No enlarged lymph nodes. IMPRESSION: Subtle ground-glass opacities noted scattered throughout the inferior right upper lobe, the right middle lobe and right lower lobe. Findings are most consistent with multifocal pneumonia, to include atypical bacterial and viral etiologies. Electronically signed by: Matt Thorpe MD 06/02/23 05:[address] 06/03/23 13:[address] DOSE: 547.75 mGy.cm HISTORY: episode of aphasia, r/o CVA TECHNIQUE: Multiaxial CT images of the head were performed without the use of intravenous contrast. Automated exposure control was utilized for this study. A dose lowering technique was utilized adhering to the principles of ALARA. Comparison: Head CT 06/02/2023. Findings: There is a small fluid level within the right maxillary sinus. The remaining paranasal sinuses and mastoid air cells are clear. Mild posterior scalp swelling again noted. The calvarium and skull base are intact. There is no mass, hematoma, midline shift, or acute infarct. Mild microvascular ischemic change again noted. The ventricles are normal in size. There are old bilateral basal ganglia lacunar infarcts, unchanged. Impression: 1. No acute infarct or intracranial hemorrhage. 2. Small fluid level within the right maxillary sinus. 3. Old bilateral basal ganglia lacunar infarcts again noted. ACT 112: Negative or not required by law. Electronically signed by: Harshad Avina M.D. 06/03/2023 2:46 PM
[2023-06-08] MEDS: THIAMINE HCL 250 MG in SODIUM CHLORIDE 0.9% 50 ML IV SCH ×2 (13:57→20:40)
[2023-06-08] MEDS: ATORVASTATIN 20 MG TAB PO SCH (20:08)
[2023-06-09] MEDS: UNASYN 3000MG / NS q6h IV SCH (01:20)
[2023-06-09] MEDS: THIAMINE HCL 250 MG in SODIUM CHLORIDE 0.9% 50 ML IV SCH ×3 (04:57→23:15)
[2023-06-09 06:20] LABS: Basophils # (auto) 0.02 K/uL (0.00-0.20); Basophils % (auto) 0.3 %; Eosinophils # (auto) 0.15 K/uL (0.00-0.50); Eosinophils % (auto) 2.6 %; Hematocrit (blood only) 33.2 % (42.0-52.0); Hemoglobin 10.9 g/dl (14.0-18.0); Immature Granulocytes # (auto) 0.02 K/uL (0.01-0.20); Immature Granulocytes % (auto) 0.3 %; Lymphocytes # (auto) 2.22 K/uL (1.20-3.40); Lymphocytes % (auto) 37.8 %; Mean Corpuscular Hemoglobin 27.7 pg (25.0-34.0); Mean Corpuscular Hgb Conc 32.8 g/dL (32.0-36.0); Mean Corpuscular Volume 84.5 fL (80.0-100.0); Monocytes # (auto) 1.01 K/uL (0.11-0.59); Monocytes % (auto) 17.2 %; Neutrophils # (auto) 2.46 K/uL (1.40-6.50); Neutrophils % (auto) 41.8 %; Platelet Count 241 K/uL (130-400); RDW Coefficient of Variation 13.5 % (11.5-14.5); Red Blood Count 3.93 M/uL (4.70-6.10); White Blood Count 5.88 K/ul (4.8-10.8)
[2023-06-09 06:50] LABS: BUN Creatinine Ratio 21.8 (10-20); Calcium 8.8 mg/dl (8.6-10.3); Creatinine Clr Calc Pharmacy 96.2 ml/min; Est GFR (African American) 108.7 ml/min; Est GFR (Non-African American) 93.8 ml/min; Potassium 3.9 mmol/L (3.5-5.1)
[2023-06-09 07:17] LABS: Estimated Average Glucose 163 mg/dl; Hemoglobin A1C 7.3 % (4.5-5.6)
[2023-06-09] MEDS: FOLIC ACID 1 MG in SYRINGE 9.8 ML IV SCH (08:16)
[2023-06-09] MEDS: DOXYCYCLINE HYCLATE 100 MG CAP PO SCH (08:16)
[2023-06-09] MEDS: LANTUS PER UNIT CHARGE SC SCH (08:16)
[2023-06-09] MEDS: INSULIN ASPART PER UNIT CHARGE SC SCH ×4 (08:16→21:51)
[2023-06-09] MEDS: MULTIVITAMIN TAB PO SCH (08:17)
[2023-06-09] MEDS: ENOXAPARIN INJ 40 MG/0.4 ML SYR SQ SCH (08:17)
[2023-06-09] MEDS: ASPIRIN 81 MG ECTAB PO SCH (08:17)
[2023-06-09] MEDS: amLODIPine BESYLATE 5 MG TAB PO SCH (08:17)
[2023-06-09] MEDS: ADVANCED PROBIOTIC 1250 MG CAPSULE PO SCH (08:17)
[2023-06-09] MEDS: carvediloL 3.125 MG TAB PO SCH ×2 (08:17→17:35)
--- NOTE | 2023-06-09 08:44 | Pharmacy Report ---
Pharmacy Glycemic Short Note 2 - Date of Service June 09, 2023 - Glycemic Short BSG Results (Last 24 hours): 06/08/23 06/08/23 06/08/23 11:02 16:00 20:02 Glucose POC Glucose 260 H 91 135 H 06/09/23 06/09/23 05:28 07:05 Glucose 220 H POC Glucose 183 H OUTPATIENT ANTIDIABETIC REGIMEN: * Lantus 20 units SC AM * Novolog 4 units SC with meals (2 units SC with snacks) * Metformin 1 g PO BID * HbA1c = 6.5% (05/04/23; per review of EPIC records) ASSESSMENT: 06/09: * Stressors stable * AM fasting significantly elevated again today. Will increase Lantus to home dose * One BSG below goal yesterday at dinner, possibly 2nd overcorrection at lunch and maybe stacking. Will loosen correction factor. 06/08: * AM fasting improved - maintain Lantus dose * Two day trend on 06/06 and 06/07 where dinner and HS BSG's were below goal but lunch BSG was >180 mg/dL. Will utilize a tighter CHO ratio with breakfast only and loosen at lunch, dinner, and HS checks 06/07: * AM fasting BSG elevated - will increase Lantus * Post-prandial BSG's below goal x2 yesterday, but not hypoglycemic. Will slightly loosen CHO ratio 06/06: * Umair received 20 units of insulin yesterday, 10 units each of basal + bolus. BSGs were: [id number] mg/dL. * Fasting BSG was 156 mg/dL this AM. Will continue will current basal dose but move it to AM dosing which reflects home regimen. * No changes to Novolog today as BSGs have been labile. * No change in stressors. Remains on Zosyn and PO Doxycycline. NS infusing at 50 mL/hr. Ordered and tolerating a T2DM diet. 06/04: * BSGs yesterday were [phone] and overnight were 125-161 mg/dL. Fasting today is 148 mg/dL. * Patient received 16 units of insulin (8 units of basal and 8 units of bolus). * Continue Lantus 8 units daily as fasting is within goal range. * Hypoglycemic event most likely secondary to over-correction. Loosen CF. 06/03: * BSGs well controlled over last 24 hrs * BSGs now trending up and diet advanced. Will resume basal insulin, however will give single reduced dose today until we establish PO intake reliable * Novolog doses will be adjusted somewhat to better cover carb intake based upon prior admission data, however will continue to be conservative given recent hypoglycemic events 06/02: * Type 2 diabetic admitted for hyperkalemia, severe hypoglycemia, encephalopathy, possible CVA, severe sepsis from pneumonia * Patient had been experiencing BSGs running lower than usual over the last week * Severe hypoglycemia observed by EMS leading to treatment with D10 en route. BSGs in ED initially in 200s likely from Dextrose provided, but has since trended down to the low 100s. Patient is currently NPO. * Will hold basal insulin at this time given BSG trend and NPO status * Novolog CF and CR initiated by nighttime hospitalist are reasonable starting points. Doses are less that what patient has required in the past, but would prefer to be conservative initially given recent events. PLAN FOR INPATIENT GLYCEMIC CONTROL: * Hold outpatient oral diabetes medications * Basal insulin * Lantus 20 units SC AM * Bolus insulin * NovoLog per scale ACHS * Goal Range: Low 120 mg/dL - High 160 mg/dL * Correction Factor: 45 mg/dL/unit with breakfast. 50 mg/dL/unit with lunch, dinner, and bedtime * Carb ratio: 7 g CHO/unit with breakfast. 10 g CHO/unit with lunch, dinner, and bedtime
--- NOTE | 2023-06-09 11:20 | Hospitalist Progress Note ---
Date of Service June 09, 2023 Assessment & Plan (1) Encephalopathy: Plan: Patient is a 62-year-old male with past medical history of hypertension, hyperlipidemia, type 2 diabetes mellitus, chronic pancreatitis who presented to the ED with altered mental status. Reportedly, blood glucose was found to be 11 when EMS arrived. He received to 250 ml of D10 and was brought to the hospital. METABOLIC ENCEPHALOPATHY, resolved Hypoglycemia Alcohol withdrawal Patient presented to the ED with hypoglycemia and altered mental status Reportedly had blood glucose of 11 Mg per DL when EMS first arrived -CT head personally reviewed: No acute intracranial findings. Small fluid level within the right maxillary sinus. Blood glucose well-controlled during the hospitalization. Glargine decreased to 14 unit in a.m. from 20 units at home. HbA1c 7.3%; down from 16.9% last admission. Status post tripping dose of Librium. Vitamin B12 level 385; will start him on supplement. On high-dose thiamine as well. Will discharge him on oral thiamine supplement. ACUTE RESPIRATORY FAILURE WITH HYPOXIA RIGHT LOWER LOBE PNEUMONIA CT chest shows subtle groundglass opacities noted scattered throughout the inferior right upper lobe, right middle lobe and right lower lobe -Weaned off oxygen -Blood cultures: No growth till date Status post 7 days of antibiotics. ALCOHOL WITHDRAWAL, Alcohol use disorder Status post Librium taper. Will need outpatient follow-up with addiction medicine for management of alcohol use disorder. Mood disorder -On Cymbalta-will resume it HYPERTENSIVE URGENCY Started amlodipine 5 mg p.o. daily Hydralazine as needed ordered Resolved Hyperkalemia -Resolved; Chronic anemia, -Hemoglobin stable ongoing tobacco abuse Nicotine patch as needed. DVT prophylaxis. Lovenox subcu Full code Disposition PT OT recommends rehab. Awaiting placement. Called patient's brother Doni over the phone. Updated him regarding patient's treatment plan. Answered questions/queries. Time spent evaluating patient, direct bedside care, chart review, placing orders, interpretation of diagnostic studies, discussion with patient, as well as other required patient management activities is 50 minutes Please note the above document was generated using voice recognition software. It may contain grammatical, syntax or spelling errors. Any formal questions or concerns about the content, text or information contained within the body of this dictation should be directly addressed to the provider for clarification Admission and Anticipated Discharge Date Admission Date: June 02, 2023 Subjective Patient seen and examined at bedside. He is alert oriented x 3. He denies fever, chills, chest pain or shortness of breath. Review of Systems Review of Systems: All systems reviewed & are unremarkable except as noted in Subjective Physical Exam Physical Exam: General-alert oriented x 3), not in distress, speaks in sentences with no effort or accessory muscle use Lungs- clear breath sounds bilaterally, no rales/wheezes Heart- normal rate, regular rhythm; no murmurs Abdomen- normal bowel sounds, nondistended, soft, nontender Extremities- no pretibial edema, Neuro- alert, oriented x3; no gross focal neurologic deficits Skin- warm & dry Results & Data Results & Data Vital Signs (Past 12 Hours) Vital Signs Temp Pulse Pulse Resp BP Pulse Ox O2 Del Method 06/09/23 08:00 82 06/09/23 08:00 Room Air 06/09/23 07:06 36.6 C 80 18 133/92 97 Room Air 06/09/23 01:52 36.9 C 86 18 125/85 96 Room Air Laboratory Results Laboratory Results WBC 5.88 K/ul (4.8-10.8) 06/09/23 05:28 RBC 3.93 M/uL (4.70-6.10) L 06/09/23 05:28 Hgb 10.9 g/dl (14.0-18.0) L 06/09/23 05:28 POC Hgb 14.3 g/dl (14.0-18.0) 06/02/23 00:10 POC Hgb 14.6 g/dl (14.0-18.0) 06/02/23 00:10 Hct 33.2 % (42.0-52.0) L 06/09/23 05:28 POC Hct 42 % (42-52) 06/02/23 00:10 POC Hct 43 % (42-52) 06/02/23 00:10 MCV 84.5 fL (80.0-100.0) 06/09/23 05:28 MCH 27.7 pg (25.0-34.0) 06/09/23 05:28 MCHC 32.8 g/dL (32.0-36.0) 06/09/23 05:28 RDW Std Deviation 42.0 fL (36.4-46.3) 06/09/23 05:28 RDW Coeff of Miguel 13.5 % (11.5-14.5) 06/09/23 05:28 Plt Count 241 K/uL (130-400) 06/09/23 05:28 MPV 9.0 fL (9.4-12.4) L 06/09/23 05:28 Immature Gran % (Auto) 0.3 % 06/09/23 05:28 Neut % (Auto) 41.8 % 06/09/23 05:28 Lymph % (Auto) 37.8 % 06/09/23 05:28 [place] % (Auto) 17.2 % 06/09/23 05:28 Eos % (Auto) 2.6 % 06/09/23 05:28 Baso % (Auto) 0.3 % 06/09/23 05:28 Neut # (Auto) 2.46 K/uL (1.40-6.50) 06/09/23 05:28 Lymph # (Auto) 2.22 K/uL (1.20-3.40) 06/09/23 05:28 [place] # (Auto) 1.01 K/uL (0.11-0.59) H 06/09/23 05:28 Eos # (Auto) 0.15 K/uL (0.00-0.50) 06/09/23 05:28 Baso # (Auto) 0.02 K/uL (0.00-0.20) 06/09/23 05:28 Immature Gran # (Auto) 0.02 K/uL (0.01-0.20) 06/09/23 05:28 POC pH 7.23 (7.35-7.45) L 06/02/23 00:10 POC pCO2 39 mmHg (35-46) 06/02/23 00:10 POC pO2 58 mmHg (80-95) L 06/02/23 00:10 POC HCO3 16 joe/L (19-24) L 06/02/23 00:10 POC Total CO2 17 mmol/L (24-31) L 06/02/23 00:10 POC Base Excess -11.0 joe/L (-9-1.8) L 06/02/23 00:10 POC ABG O2 Sat 84.0 % (90-95) L 06/02/23 00:10 VBG pH 7.39 (7.36-7.41) 06/02/23 05:24 VBG pCO2 44 mmHg (38-50) 06/02/23 05:24 VBG pO2 49 mmHg 06/02/23 05:24 VBG HCO3 27 mmol/L 06/02/23 05:24 VBG O2 Saturation 80.4 % 06/02/23 05:24 VBG Base Excess 1.2 mEq/L 06/02/23 05:24 POC Sodium 129 mmol/L (135-144) L 06/02/23 00:10 POC Sodium 130 mmol/L (135-144) L 06/02/23 00:10 Sodium 138 mmol/L (136-145) 06/09/23 05:28 POC Potassium 5.3 mmol/L (3.3-5.0) H 06/02/23 00:10 POC Potassium 6.7 mmol/L (3.3-5.0) H* 06/02/23 00:10 Potassium 3.9 mmol/L (3.5-5.1) 06/09/23 05:28 POC Chloride 98 mmol/L (101-112) L 06/02/23 00:10 Chloride 107 mmol/L (98-107) 06/09/23 05:28 Carbon Dioxide 23 mmol/L (21-32) 06/09/23 05:28 POC Total CO2 21 mmol/L (24-31) L 06/02/23 00:10 Anion Gap 8 (3-11) 06/09/23 05:28 POC Anion Gap 17.0 mmol/L (16-25) 06/02/23 00:10 POC BUN 16 mg/dl (7-18) 06/02/23 00:10 BUN 19 mg/dl (6-23) 06/09/23 05:28 Creatinine 0.87 mg/dl (0.6-1.4) 06/09/23 05:28 POC Creatinine 0.7 mg/dl (0.6-1.3) 06/02/23 00:10 Est Cr Clr Drug Dosing 96.2 ml/min 06/09/23 05:28 Est GFR ( Amer) 108.7 ml/min 06/09/23 05:28 Est GFR (Non-Af Amer) 93.8 ml/min 06/09/23 05:28 BUN/Creatinine Ratio 21.8 (10-20) H 06/09/23 05:28 Glucose 220 mg/dl (70-99(Fasting)) H 06/09/23 05:28 POC Glucose 183 mg/dl (70-99) H 06/09/23 07:05 POC Glucose (other) 266 mg/dl (70-99) H 06/02/23 00:10 Estimat Average Glucose 163 mg/dl 06/09/23 05:28 Hemoglobin A1c 7.3 % (4.5-5.6) H 06/09/23 05:28 Osmolality 296 mOsm/kg (280-300) 06/02/23 00:00 Lactate 1.4 mmol/L (0.4-2.0) 06/02/23 05:35 Calcium 8.8 mg/dl (8.6-10.3) 06/09/23 05:28 POC Ioniz Calcium Mena 1.12 mmol/l (1.12-1.32) 06/02/23 00:10 Magnesium 1.7 mg/dl (1.7-2.4) 06/05/23 03:06 Total Bilirubin 0.3 mg/dl (0.2-1.0) 06/02/23 00:00 AST 16 U/L (13-39) 06/02/23 00:00 ALT 8 U/L (7-52) 06/02/23 00:00 Alkaline Phosphatase 101 U/L (34-104) 06/02/23 00:00 Ammonia 22.0 umol/L (18-72) 06/02/23 09:22 Total Creatine Kinase 134 U/L (30-223) 06/02/23 02:48 Troponin I High Sens 4.6 pg/ml (0-20) 06/02/23 00:00 Total Protein 7.8 gm/dl (6.0-8.3) 06/02/23 00:00 Albumin 4.4 gm/dl (3.4-5.0) 06/02/23 00:00 Globulin 3.4 gm/dl (2.5-4.0) 06/02/23 00:00 Albumin/Globulin Ratio 1.3 (0.9-2) 06/02/23 00:00 Triglycerides 180 mg/dl (0-150) H 06/03/23 05:22 Cholesterol 158 mg/dl (0-200) 06/03/23 05:22 LDL Cholesterol, Calc 63 mg/dl 06/03/23 05:22 VLDL Cholesterol, Calc 36 mg/dl (0-30) H 06/03/23 05:22 HDL Cholesterol 59 mg/dl 06/03/23 05:22 Cholesterol/HDL Ratio 2.7 (0-5) 06/03/23 05:22 Lipase 8 U/L (11-82) L 06/02/23 02:48 Vitamin B12 385 pg/ml (180-914) 06/09/23 05:28 Procalcitonin < 0.05 ng/ml (0-0.5) 06/02/23 00:00 TSH 1.350 uIu/ml (0.300-4.500) 06/02/23 00:00 Urine Color Yellow 06/02/23 00:37 Urine Appearance Clear (Clear) 06/02/23 00:37 Urine pH 5.0 (4.5-7.5) 06/02/23 00:37 Ur Specific [place] 1.028 (1.000-1.030) 06/02/23 00:37 Urine Protein Trace (Negative) H 06/02/23 00:37 Urine Glucose (UA) 3+ (Negative) H 06/02/23 00:37 Urine Ketones 1+ (Negative) H 06/02/23 00:37 Urine Blood Negative (Negative) 06/02/23 00:37 Urine Nitrite Negative (Negative) 06/02/23 00:37 Urine Bilirubin Negative (Negative) 06/02/23 00:37 Urine Urobilinogen Negative (Negative) 06/02/23 00:37 Ur Leukocyte Esterase Negative (Negative) 06/02/23 00:37 Urine WBC (Auto) 0 /hpf (0-5) 06/02/23 00:37 Urine RBC (Auto) 0-4 /hpf (0-4) 06/02/23 00:37 U Hyaline Cast (Auto) 0 /lpf (0-5) 06/02/23 00:37 U Epithel Cells (Auto) 5-10 /lpf (0-5) H 06/02/23 00:37 Urine Bacteria (Auto) Negative (Negative) 06/02/23 00:37 Salicylates < 3.0 mg/dl (3.0-30) L 06/02/23 05:24 Urine Opiates Screen Neg (Neg) 06/02/23 00:37 Ur Methadone, Qual Neg (Neg) 06/02/23 00:37 Acetaminophen 5 ug/ml (10-30) L 06/02/23 05:24 Urine Barbiturates Neg (Neg) 06/02/23 00:37 Ur Phencyclidine (PCP) Neg (Neg) 06/02/23 00:37 U Amphetamin/Meth Scrn Neg (Neg) 06/02/23 00:37 MDMA (Ecstasy) Screen Neg (Neg) 06/02/23 00:37 U Benzodiazepines Scrn Neg (Neg) 06/02/23 00:37 Ur Cocaine Metabolite Neg (Neg) 06/02/23 00:37 U Marijuana (THC) Screen Neg (Neg) 06/02/23 00:37 Ethyl Alcohol mg/dL 32.3 mg/dl (<10.0) H 06/02/23 00:00 Lyme Disease IgG Ab Negative (Negative) 06/02/23 05:24 Lyme Disease IgM Ab Negative (Negative) 06/02/23 05:24 SARS-CoV-2 (PCR) NEGATIVE (Negative) 06/02/23 Unknown Influenza Type A (PCR) Negative (Neg) 06/02/23 Unknown Influenza Type B (PCR) Negative (Neg) 06/02/23 Unknown RSV (RT-PCR) Negative (Neg) 06/02/23 Unknown SARS-CoV-2, RNA, NAAT NEGATIVE (NEGATIVE) 06/02/23 00:40 Impressions Chest X-Ray 06/02/23 00:04 XR chest 1V portable HISTORY: 62 years-old Male weakness COMPARISON: Chest CT of same day TECHNIQUE: AP view of the chest FINDINGS: Cardiomediastinal and hilar silhouettes are within normal limits. No pneumothorax, pleural effusion or overt pulmonary edema. Subtle patchy ill- defined opacities throughout the right lung. Bones appear grossly intact with degenerative changes of the right shoulder. IMPRESSION: Mild patchy ill-defined right lung opacities are suggestive of a mild multifocal pneumonia. ACT 112: Negative or not required by law. The above report was generated using voice recognition software. It may contain grammatical, syntax or spelling errors. Electronically signed by: Bj Karimi M.D. 06/02/2023 8:31 AM Head CTA 06/02/23 00:05 CR Exam(s): CTA HEAD With Contrast IV Amt: 116 ml opti 320 EXAM: CT Angiography Head With Intravenous Contrast CLINICAL HISTORY: ams. TECHNIQUE: Axial computed tomographic angiography images of the head with intravenous contrast. CTDI is 45.02 mGy and DLP is 2082.46 mGy-cm. Automated exposure control was utilized for the study. A dose lowering technique was utilized adhering to the principles of ALARA. MIP reconstructed images were created and reviewed. CONTRAST: Patient received 116 ml opti 320 of IV contrast COMPARISON: No relevant prior studies available. FINDINGS: Limitations: There is motion artifact, which degrades image quality on multiple image slices. Right internal carotid artery: Atherosclerotic calcification of the cavernous segment of the right internal carotid artery. The petrous and supraclinoid segments are patent. Intracranial segment is patent with no significant stenosis. No aneurysm. Right anterior cerebral artery: Unremarkable. No occlusion or significant stenosis. No aneurysm. Right middle cerebral artery: Unremarkable. No occlusion or significant stenosis. No aneurysm. Right posterior cerebral artery: Unremarkable. No occlusion or significant stenosis. No aneurysm. Right vertebral artery: The right vertebral artery is small in caliber but is patent. Left internal carotid artery: Atherosclerotic calcification of the cavernous segment of the left internal carotid artery. The petrous and supraclinoid segments are patent. Intracranial segment is patent with no significant stenosis. No aneurysm. Left anterior cerebral artery: Unremarkable. No occlusion or significant stenosis. No aneurysm. Left middle cerebral artery: Unremarkable. No occlusion or significant stenosis. No aneurysm. Left posterior cerebral artery: Unremarkable. No occlusion or significant stenosis. No aneurysm. Left vertebral artery: Unremarkable as visualized. Basilar artery: There is motion artifact through the basilar artery. No obvious focal stenosis. No occlusion or obvious dissection. No aneurysm. Brain: No abnormal parenchymal enhancement identified. IMPRESSION: Negative intracranial CTA examination. No significant stenosis or occlusion identified. Communications: Call Doctor Stroke Electronically signed by: Matt Thorpe MD 06/02/23 01:00 AM Neck CTA 06/02/23 00:05 CR Exam(s): CTA NECK With Contrast IV Amt: 116 ml opti 320 EXAM: CT Angiography Neck With Intravenous Contrast CLINICAL HISTORY: ams. TECHNIQUE: Routine carotid CT angiography protocol was performed with intravenous contrast. NASCET criteria using the distal ICAs for comparison were used for evaluation of stenoses. CTDI is 45.02 mGy and DLP is 2082.46 mGy-cm. Automated exposure control was utilized for the study. A dose lowering technique was utilized adhering to the principles of ALARA. MIP reconstructed images were created and reviewed. CONTRAST: Patient received 116 ml opti 320 of IV contrast COMPARISON: None. FINDINGS: Limitations: There is motion/swallowing artifact, which degrades image quality on multiple image slices, particularly through the proximal internal carotid artery region. VASCULATURE: Right common carotid artery: Unremarkable. No occlusion or significant stenosis. No dissection. Right internal carotid artery: Atherosclerotic calcification of the right proximal internal carotid artery, extending to the carotid bifurcation. No narrowing by NASCET criteria. The mid to distal internal carotid artery is patent. Right external carotid artery: Unremarkable. No occlusion. Right vertebral artery: Mild to moderate ostial narrowing of the right vertebral artery. The right vertebral artery is small in caliber but is otherwise patent without stenosis or occlusion. Left common carotid artery: Unremarkable. No occlusion or significant stenosis. No dissection. Left internal carotid artery: The left internal carotid artery is patent, accounting for motion artifact. Left external carotid artery: Unremarkable. No occlusion. Left vertebral artery: Unremarkable. No occlusion or significant stenosis. No dissection. Brachiocephalic and subclavian arteries: The proximal great vessels demonstrate normal origin pattern without ostial stenosis. Aorta: The aortic arch is patent without dissection or aneurysm. NECK: Bones/joints: Unremarkable. No acute fracture. Soft tissues: Unremarkable. Lung apices: Clear. CAROTID STENOSIS REFERENCE USING NASCET CRITERIA: % ICA stenosis = (1 - narrowest ICA diameter/diameter of distal cervical ICA) x 100. Mild - <50% stenosis. Moderate - 50-69% stenosis. Severe - 70-94% stenosis. Near occlusion - 95-99% stenosis. Occluded - 100% stenosis. IMPRESSION: Mild to moderate ostial stenosis of the proximal right vertebral artery. Otherwise negative cervical CTA examination, accounting for motion artifact. Communications: Call Doctor Stroke Electronically signed by: Matt Thorpe MD 06/02/23 01:03 AM Abdomen/Pelvis CT 06/02/23 02:53 Exam(s): CT ABDOMEN + PELVIS Without Contrast EXAM: CT Abdomen and Pelvis Without Intravenous Contrast CLINICAL HISTORY: nv. TECHNIQUE: Axial computed tomography images of the abdomen and pelvis without intravenous contrast. CTDI is 27.69 mGy and DLP is 1267.76 mGy-cm. Automated exposure control was utilized for the study. A dose lowering technique was utilized adhering to the principles of ALARA. COMPARISON: Unenhanced CT abdomen and pelvis dated 09/22/2022 FINDINGS: Limitations: There is respiratory artifact, which degrades image quality throughout the examination. Lung bases: Unremarkable. No mass. No consolidation. ABDOMEN: Liver: The unenhanced liver demonstrates no focal abnormality. Gallbladder and bile ducts: Unremarkable. No calcified stones. No ductal dilation. Pancreas: Diffuse calcifications throughout the small pancreas are similar to the previous examination. Evaluation for subtle peripancreatic fat stranding is somewhat limited by respiratory artifact. No ductal dilation or loculated pseudocysts. Spleen: Unremarkable. No splenomegaly. Adrenals: Unremarkable. No mass. Kidneys and ureters: The kidneys demonstrate some residual enhancement with excreted contrast in the renal collecting systems and intermittently throughout the ureters. No obstructing stones. No hydronephrosis. Stomach and bowel: The stomach is moderately distended with gas and fluid. No bowel obstruction. Evaluation the bowel mucosa is limited without contrast and respiratory artifact. PELVIS: Appendix: No findings to suggest acute appendicitis. Bladder: The bladder is decompressed with a Saravia catheter in position. There is contrast in the bladder limiting evaluation for bladder stones. Reproductive: Unremarkable as visualized. ABDOMEN and PELVIS: Intraperitoneal space: Unremarkable. No free air. No significant fluid collection. Bones/joints: Prior ORIF of the left proximal femur and hip. No acute osseous abnormality. No dislocation. Soft tissues: Unremarkable. Vasculature: Unremarkable. No abdominal aortic aneurysm. Lymph nodes: Unremarkable. No enlarged lymph nodes. IMPRESSION: 1. There is respiratory artifact, which degrades image quality throughout the examination. 2. Diffuse calcifications throughout the small pancreas are similar to the previous examination and most consistent with chronic pancreatitis. Evaluation for subtle peripancreatic fat stranding is somewhat limited by respiratory artifact. No ductal dilation or loculated pseudocysts. 3. No bowel obstruction. No free intraperitoneal fluid or pneumoperitoneum. 4. Excreted contrast in the renal collecting systems and ureters. Minimal contrast in the bladder with Sar[place] catheter in position. Electronically signed by: Matt Thorpe MD 06/02/23 05:[address] 06/02/23 02:53 Exam(s): CT CHEST Without Contrast EXAM: CT Chest Without Intravenous Contrast CLINICAL HISTORY: low o2. TECHNIQUE: Axial computed tomography images of the chest without intravenous contrast. CTDI is 27.69 mGy and DLP is 1267.76 mGy-cm. Automated exposure control was utilized for the study. A dose lowering technique was utilized adhering to the principles of ALARA. COMPARISON: No relevant prior studies available. FINDINGS: Artifacts: Scatter artifact likely related to patient's arm position. Limitations: There is respiratory artifact, which degrades image quality on multiple image slices. Lungs: Subtle ground-glass opacities noted scattered throughout the inferior right upper lobe, the right middle lobe and right lower lobe. The left lung appears to be well aerated, accounting for respiratory artifact, without definite focal consolidation. Pleural space: Unremarkable. No pneumothorax. No significant effusion. Heart: The cardiac chambers are normal in size. Coronary artery calcification of the proximal to mid LAD distribution is of uncertain clinical significance. No pericardial effusion. Bones/joints: Moderately severe degenerative changes of the right shoulder. No acute osseous abnormality. Soft tissues: Unremarkable. Vasculature: The thoracic aorta is normal in caliber with minimal atherosclerotic calcification of the aortic arch. Detailed evaluation limited without contrast. Lymph nodes: Unremarkable. No enlarged lymph nodes. IMPRESSION: Subtle ground-glass opacities noted scattered throughout the inferior right upper lobe, the right middle lobe and right lower lobe. Findings are most consistent with multifocal pneumonia, to include atypical bacterial and viral etiologies. Electronically signed by: Matt Thorpe MD 06/02/23 05:[address] 06/03/23 13:[address] DOSE: 547.75 mGy.cm HISTORY: episode of aphasia, r/o CVA TECHNIQUE: Multiaxial CT images of the head were performed without the use of intravenous contrast. Automated exposure control was utilized for this study. A dose lowering technique was utilized adhering to the principles of ALARA. Comparison: Head CT 06/02/2023. Findings: There is a small fluid level within the right maxillary sinus. The remaining paranasal sinuses and mastoid air cells are clear. Mild posterior scalp swelling again noted. The calvarium and skull base are intact. There is no mass, hematoma, midline shift, or acute infarct. Mild microvascular ischemic change again noted. The ventricles are normal in size. There are old bilateral basal ganglia lacunar infarcts, unchanged. Impression: 1. No acute infarct or intracranial hemorrhage. 2. Small fluid level within the right maxillary sinus. 3. Old bilateral basal ganglia lacunar infarcts again noted. ACT 112: Negative or not required by law. Electronically signed by: Harshad Avina M.D. 06/03/2023 2:46 PM
[2023-06-09] MEDS: CYANOCOBALAMIN (B-12) 500 MCG TABLET PO SCH (12:38)
[2023-06-09] MEDS: CARBOHYDRATES FOR HYPOGLYCEMIA PO PRN ×2 (16:21→16:37)
[2023-06-09] MEDS: ATORVASTATIN 20 MG TAB PO SCH (21:47)
[2023-06-10] MEDS: THIAMINE HCL 250 MG in SODIUM CHLORIDE 0.9% 50 ML IV SCH ×2 (05:22→13:03)
[2023-06-10] MEDS: ENOXAPARIN INJ 40 MG/0.4 ML SYR SQ SCH (08:36)
[2023-06-10] MEDS: INSULIN ASPART PER UNIT CHARGE SC SCH ×2 (08:37→12:33)
[2023-06-10] MEDS: LANTUS PER UNIT CHARGE SC SCH (08:37)
[2023-06-10] MEDS: ADVANCED PROBIOTIC 1250 MG CAPSULE PO SCH (08:38)
[2023-06-10] MEDS: CYANOCOBALAMIN (B-12) 500 MCG TABLET PO SCH (08:38)
[2023-06-10] MEDS: amLODIPine BESYLATE 5 MG TAB PO SCH (08:39)
[2023-06-10] MEDS: MULTIVITAMIN TAB PO SCH (08:39)
[2023-06-10] MEDS: FOLIC ACID 1 MG in SYRINGE 9.8 ML IV SCH (08:39)
[2023-06-10] MEDS: carvediloL 3.125 MG TAB PO SCH (08:39)
[2023-06-10] MEDS: ASPIRIN 81 MG ECTAB PO SCH (08:39)
[2023-06-10] MEDS ORDERED: DULoxetine HCL 20 MG CAP PO SCH (09:00)
--- NOTE | 2023-06-10 13:41 | Discharge Summary ---
Date of Service June 10, 2023 Admission HPI Per Admitting Provider JoshuaHistory obtained from patient's family, ER provider and records. Unable to obtain history from patient secondary to aphasic state. Medical history significant for hypertension, hyperlipidemia, DM 2 insulin req uiring, chronic anemia (baseline hemoglobin 9-10), pancreatitis as per records, mood disorder, ongoing tobacco/alcohol abuse. Last confinement February 2023 for hyperglycemia, hyperosmolar syndrome. Hemoglobin A1c noted to be greater than 16.9. Patient discharged on home insulin regimen. Patient blood sugars noted to be low at home since last week as per brother. CGM device beeping as per brother. Patient compliant with home insulin as per brother. Patient looked sick yesterday as per brother. Patient without obvious cough symptoms as per brother. Subsequent emesis. No abdominal pain complaints. Patient still drinking alcohol as per brother. Patient noted to be unresponsive last night by brother. EMS called to patient's home. Blood sugar noted to be 11. Patient started moaning after IV dextrose administered by EMS. Possible facial droop and gaze abnormalities noted. Patient last known to be well around 1 PM yesterday. Patient brought to the ER for evaluation. Serum potassium noted to be 6.6. NSS bolus, calcium gluconate, IV insulin and bicarb administered at the ER. Medical History as above Surgical History : right BKA, GB, dental surgery Family History : Alcoholism Personal/Social history : Ongoing tobacco/alcohol abuse as per records, lives alone Principal Diagnosis Hypoglycemia Alcohol withdrawal Acute hypoxic respiratory failure Possible Wernicke's encephalopathy Discharge Exam General-alert oriented x 3, not in distress, speaks in sentences with no effort or accessory muscle use Lungs- clear breath sounds bilaterally, no rales/wheezes Heart- normal rate, regular rhythm; no murmurs Abdomen- normal bowel sounds, nondistended, soft, nontender Extremities- no pretibial edema, Neuro- alert, oriented x3; no gross focal neurologic deficits Skin- warm & dry Discharge Data Allergies Allergy/AdvReac Type Severity Reaction Status Date / Time No Known Allergies Allergy Verified 06/02/23 02:12 Consultations 06/02/23 01:22 ED Decision to Admit Stat Ordered Studies 06/02/23 00:05 CT angio head w con Stat CT angio neck with con Stat CT head/brain wo con Stat 06/02/23 02:53 CT Abd and Pelvis [CT abd pelvis wo con] Stat CT chest diagnostic wo con Stat 06/03/23 13:20 CT head/brain wo con Routine Hospital Course (1) Encephalopathy: Patient is a 62-year-old male with past medical history of hypertension, hyperlipidemia, type 2 diabetes mellitus, chronic pancreatitis who presented to the ED with altered mental status. Reportedly, blood glucose was found to be 11 when EMS arrived. He received to 250 ml of D10 and was brought to the hospital. METABOLIC ENCEPHALOPATHY, resolved Hypoglycemia Alcohol withdrawal Patient presented to the ED with hypoglycemia and altered mental status Reportedly had blood glucose of 11 Mg per DL when EMS first arrived -CT head personally reviewed: No acute intracranial findings. Small fluid level within the right maxillary sinus. Blood glucose well-controlled during the hospitalization. Glargine decreased to 14 unit in a.m. from 20 units at home. HbA1c 7.3%; down from 16.9% last admission. Patient also received high-dose thiamine during the hospitalization. At discharge, patient was alert oriented x 3. His mentation was back to baseline. ACUTE RESPIRATORY FAILURE WITH HYPOXIA RIGHT LOWER LOBE PNEUMONIA CT chest shows subtle groundglass opacities noted scattered throughout the inferior right upper lobe, right middle lobe and right lower lobe -Blood cultures: No growth till date Status post 7 days of antibiotics. At discharge, patient was in room air. No complaints of cough or shortness of breath ALCOHOL WITHDRAWAL, Alcohol use disorder Status post Librium taper. Will need outpatient follow-up with addiction medicine for management of alcohol use disorder. Mood disorder -On Cymbalta-will resume it HYPERTENSIVE URGENCY Started amlodipine 5 mg p.o. daily Hyperkalemia -Resolved; -Potassium supplement stopped Patient discharged to [facility] rehab Called patient's brother Doni over the phone at discharge at patient's request. Updated him regarding patient's treatment plan. Answered questions/queries. Please note the above document was generated using voice recognition software. It may contain grammatical, syntax or spelling errors. Any formal questions or concerns about the content, text or information contained within the body of this dictation should be directly addressed to the provider for clarification Total Time Total Time Spent Total Time Spent (In Minutes): 40 Total Time Includes: Examination of the Patient, Discharge Planning, Medication Reconciliation, Communication With Other Providers and Other Discharge Plan Discharge Items Patient Disposition: Transfer [facility] Reason For Visit: AMS, HYPERKALEMIA Discharge Diagnosis: METABOLIC ENCEPHALOPATHY, resolved Hypoglycemia Alcohol withdrawal Activity: Resume your previous activity Non-emergency contact: Primary Care Provider Call non-emergency contact if: you have any medication questions and your symptoms worsen Follow-up/Referrals: Liyah Oseguera MD [Primary Care Provider] - Diet: Regular Addtl Attending Provider Instructions: You were admitted to the hospital due to altered mental status. The likely cause is due to low blood glucose level. Adjustment has been made to the insulin regimen. Please follow-up with your primary care doctor after discharge from rehab. Pending Studies at Discharge: No Stand-Alone Forms: My Ry[employer], Medications to Prevent Stroke Skilled Items Patient informed of condition?: Yes DNR: No Discharge Level of Care: Skilled Communicable Disease: No Discharge Prognosis: Stable Lines: None Urinary Catheter: No Medications and DC Order Prescriptions: New atorvastatin 20 mg Tablet 20 mg PO HS Qty: 30 0RF amlodipine [Norvasc] 5 mg Tablet 5 mg PO QAM Qty: 30 0RF aspirin 81 mg Tablet,Delayed Release (Dr/Ec) 81 mg PO DAILY Qty: 30 0RF cyanocobalamin (vitamin B-12) 500 mcg Tablet 1,000 mcg PO QAM Qty: 60 0RF Continued multivitamin Tablet 1 tab PO DAILY Qty: 30 0RF polyethylene glycol 3350 [Miralax] 17 gram Powder In Packet 17 g PO DAILY PRN (Reason: Constipation) Qty: 30 0RF thiamine HCl (vitamin B1) 100 mg tablet 100 mg PO DAILY Qty: 30 0RF carvedilol 3.125 mg Tablet 3.125 mg PO BIDM Qty: 60 0RF magnesium oxide 400 mg (241.3 mg magnesium) tablet 400 mg PO QAM Qty: 30 0RF folic acid 1 mg tablet 1,000 mcg PO DAILY Qty: 30 0RF insulin aspart U-100 100 unit/mL (3 mL) insulin pen 4 unit SUBCUT AC Qty: 15 0RF duloxetine [Cymbalta] 20 mg Capsule,Delayed Release(Dr/Ec) 20 mg PO QAM Qty: 30 0RF (DME) blood-glucose meter [OneTouch Verio Meter] Misc See Rx Instructions .Route Qty: 1 0RF Rx Instructions: As directed (DME) OneTouch Verio test strips Strip See Rx Instructions .Route Qty: 50 0RF Rx Instructions: As directed (DME) lancets [OneTouch Delica Lancets] 33 gauge misc See Rx Instructions .Route Qty: 100 0RF Rx Instructions: As directed (DME) pen needle, diabetic [Pen Needle] 32 gauge x 5/32" needle See Rx Instructions .ROUTE .MEDSUPPLY Qty: 100 2RF Rx Instructions: daily Changed metformin 500 mg tablet extended release 24 hr 1,000 mg PO BID Qty: 60 0RF Rx Instructions: take in am & before hs insulin glargine [Lantus Solostar U-100 Insulin] 100 unit/mL (3 mL) insulin pen 16 unit subcut QAM Qty: 15 0RF Rx Instructions: If fasting sugar >125 for 3 days then increase by 2 units & continue. Discontinued insulin aspart U-100 100 unit/mL (3 mL) insulin pen 2 unit SUBCUT .WITH SNACKS potassium chloride 20 mEq Packet 20 meq PO QAM Discharge Orders: Discharge Order (Routine); Ordered 06/10/23 Ordered By: Jose Cruz Tucker/Other Patient Handouts: Hypoglycemia (Low Blood Sugar) Admission Data Admit Date/Time: 06/02/23 02:17 Attending Provider: Jose Cruz Jama Admit Provider: Tomás Kemp Primary Care Provider: Liyah Oseguera Other Providers: Sergio Chávez; Lo Morgan; [facility],; Tomás Kemp
--- NOTE | 2023-06-15 06:30 | Coding Query ---
SEPSIS To promote full compliance with coding requirements relating to patient care, physician participation is requested in all cases of electrical development engineer uncertainty. Please assist us with the question(s) below: The medical record reflects the following clinical findings: 06/08 & subsequent progress notes documented Sepsis . Pt adm with altered mental status, alcohol dependence with withdrawl, severe hypoglycemia with a blood sugar level of 11. Please check below, if applicable, the diagnosis that was treated during this Inpatient stay. Thanks for your help! Alexander Espinoza [facility] ____ ( )Bacteremia (Nonspecific laboratory finding of bacteria in the blood) Specify Organism ( ) Present on Admission ( ) Not present on admission ( ) Unable to clinically determine ( ) Septicemia (Systemic disease associated with the presence of pathogenic microorganisms in the blood): Specify Organism ( ) Present on Admission ( ) Not present on admission ( ) Unable to clinically determine ( ) Sepsis Specify Organism Specify Associated Condition/Diagnosis ( ) Present on Admission ( ) Not present on admission ( ) Unable to clinically determine ( ) Severe Sepsis (Sepsis associated with acute organ dysfunction) Specify Organism Specify Associated Condition/Diagnosis ( ) Present on Admission ( ) Not present on admission ( ) Unable to clinically determine ( ) Septic Shock (Severe sepsis with acute circulatory failure, unexplained by other causes) ( ) Present on Admission ( ) Not present on admission ( ) Unable to clinically determine ( ) Other, patient has: Patient did not have bacteremia, septicemia, sepsis, severe sepsis or septic shock. MTDD
== END 2023-06-10 13:30 | DRG 637 ==
LOC: ED 23:59 → SUATTDRO 06-02 02:17 → 2E 06-02 02:17 → 2W 06-09 17:53

== ENCOUNTER 2024-01-06 21:49 | Inpatient (IN) ==
[2024-01-06] MEDS: SODIUM CHLORIDE 0.9% 1,000 ML IV SCH (22:30)
[2024-01-06] MEDS: PIPERACILLIN/TAZOBACTAM 4.5 GM/100 ML BAG IV ONE (22:32)
--- OUTSIDE RECORDS SUMMARY | 2024-01-06 22:43 | External Medical Summary | Summary of Care ---
Author Name Unknown Organization [facility] Address [address] [place] [address] Phone [phone] Care Team Providers Care [employer] Name Role Phone Liyah Oseguera MD Primary Care Provider [phone] Reason for Visit * Reason Onset Date Comments Advice 08/23/2023 Encounter Details Date Type Department Care Team (Late st Contact Info) Description 08/23/2023 Telephone General Internal Medicine [facility] [address] [facility] [place] [address] Liyah Oseguera MD [address] [place] [address] Advice Allergies No known active allergiesdocumented as of this encounter (statuses as of 11/22/2023) Medications Medication Sig Dispensed Refills Start Date End Date Status polyethylene glycol 3350 (MIRALAX) 255 gram powderIndications :Other constipation Take 17 g by mouth as needed for Constipation. Dissolve one heaping tablespoon in 8 ounces of water or juice. 1 Bottle 2 06/16/2018 Active Daily Elise Oral Tablet Take 1 Tab by mouth daily. Active Thiamine HCl 100 MG Oral Tablet (vitamin B-1)Indications:A lcohol abuse Take 1 Tablet by mouth in the morning. 90 Tablet 3 02/25/2023 Active Additional Information Patient not taking.Reported on 08/01/2023 Magnesium Oxide -Mg Supplement 400 (240 Mg) [...] E 11.9 300 Strip 3 03/10/2023 Active Dexcom G7 SensorIndications :Type 2 diabetes mellitus with hemoglobin A1c goal of less than 7.0% (HCC) CHANGE EVERY 10 DAYS. USE TO CHECK BLOOD SUGARS CONTINUOUSLY 3 Each 11 03/14/2023 Active Dexcom G7 Carbon Brushes Assembler DeviceIndications :Type 2 diabetes mellitus with hemoglobin A1c goal of less than 7.0% (HCC) USE TO CHECK BLOOD SUGARS CONTINOUSLY 1 Each 03/14/2023 Active Carvedilol 3.125 MG Oral Tablet (Coreg)Indication s:HTN, goal below 140/90 Take 1 Tablet by mouth 2 times a day with morning and evening meals. 180 Tablet 3 05/04/2023 Active Potassium Chloride 20 MEQ Oral PacketIndications :Hypokalemia Take 20 mEq by mouth in the morning. 90 Packet 3 07/15/2023 Active DULoxetine HCl 20 MG Oral Capsule Delayed Release Particles (duloxetine)Indic ations:MAYELA (generalized anxiety disorder) Take 1 Capsule by mouth in the morning. Do not cut, crush or chew. 30 Capsule 5 08/01/2023 Active metFORMIN HCl ER 500 MG Oral Tablet Extended Release 24 Hour (Glucophage XR)Indications:Ty pe 2 diabetes mellitus with hemoglobin A1c goal of less than 7.0% (HCC) Take 2 Tablets by mouth in the morning and 2 Tablets before bedtime. 360 Tablet 2 08/09/2023 Active Insulin Glargine Solostar 100 UNIT/ML Subcutaneous Solution Pen-injectorIndic ations:Type 2 diabetes mellitus with hemoglobin A1c goal of less than 7.0% (HCC) Inject 20 Units under the skin in the morning. If fasting sugar is > 125 for 3 days then increase by 2 units and continue. 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 0 to 44.9 in adult 11/08/2017 12/20/2017 Overview: Per Obesity protocol #1 documented as of this encounter (statuses as of 11/22/2023) Immunizations Name Administration Dates Next Due Pneumococcal Conjugate Vacci ne, 20-valent ([id number]) 02/24/2023 Pneumococcal Polysaccharide PPV23 (Pneumovax) 05/04/2015 Seasonal Influenza, PF, 6 M & above, IM , (FluLaval or Fluzone) 02/24/2023,03/15/2018,03/25/2017 TDAP (age 10 and older)(Boostrix) 03/25/2017 [...] the money to buy more. Never true 10/19/19 24 Within the past 12 months, t he food you bought just didn't last and you didn't have money to get more. Never true 10/19/2023 Sex and Gender Information Value Date Recorded Sex Assigned at Not on file Gender Identity Not on file Sexual Orientation Not on file Job Start Date Occupation Industry Not on file Not on file Not on file documented as of this encounter Miscellaneous Notes * Telephone Encounter - Chey Marshall MED ASSIST - 08/24/2023 2:19 PM EST Patient aware and verbalized understanding Please assist with scheduling an office visit * Telephone Encounter - Liyah Oseguera MD - 08/24/2023 1:31 PM EST Needs visit * Telephone Encounter - Thalia Prescott OSA - 08/23/2023 3:34 PM EST Pt would like doctor to order him an electric wheel chair. Please call back and advise. documented in this encounter Plan of Treatment Upcoming Encounters Date Type Department Care Team (Late st Contact Info) Description 11/29/2023 10:00 AM EDT Scheduled Telephone [facility], [facility] [address] [facility] [place] [address] [address]N [address] [facility] [place] [address] 11/30/2023 11:00 AM EDT [facility] [address] [place] [address] Gavi Apple, [facility] [address] [place] [address] 12/20/2023 4:00 PM EDT Home Visit [facility], [facility] [address] [facility] [place] [address] Lucia Echevarria, RN [address] [facility] [place] [address] Health Maintenance Due Date Last Done Comments Diabetic Eye Exam 1980 Cologuard 2007 Colonoscopy 2007 Colorectal Cancer Screening 2007 Fecal Occult Blood Test 2007 Sigmoidoscopy 2007 Zoster Vaccines (1 of 2) 2012 DISCUSS TOBACCO CESSATION (REFER TO SMARTSET #3291) 03/15/2019 03/15/2018 COVID-19 Vaccine ( season) 2023 Albumin/Creatinine Ratio 05/10/2023 05/10/2022 HbA1c 11/02/2023 05/04/2023, 09/0 12/2022, 05/10/2022, Additional history exists Diabetic Foot Exam 02/25/2024 02/24/2023 GFR 02/25/2024 02/24/2023, 04/21, 11/13/2018, Additional history exists DTaP,Tdap,and Td Vaccines (2 - Td or Tdap) 03/25/2027 03/25/2017 Lipid Panel 05/26/2028 05/26/2023, 04/21, 10/10/2017 Lung Cancer Screening Completed 12/08/2017 Influenza Vaccine (FLU shot) Completed [...] filedocumented as of this encounter Care Teams [employer] Relationship Specialty Start Date End Date Liyah Oseguera MD [address] [facility] [place] [address] PCP - General Internal Medicine 03/25/17 documented as of this encounter
--- OUTSIDE RECORDS SUMMARY | 2024-01-06 22:43 | External Medical Summary | Summary of Care ---
Author Name Unknown Organization [facility] Address [address] [place] [address] Phone [phone] Care Team Providers Care Machine Fastener Name Role Phone Liyah Oseguera MD Primary Care Provider [phone] Reason for Visit * Reason Comments [facility]: Maintenance Encounter Details Date Type Department Care Team (Late st Contact Info) Description 12/20/2023 4:00 PM EDT [facility] [address] [place] [address] Lucia Echevarria RN [address] [place] [address] Allergies No known active allergiesdocumented as of this encounter (statuses as of 12/20/2023) Medications Medication Sig Dispensed Refills Start Date [...] 300 Strip 3 03/10/2023 Active Dexcom G7 SensorIndications:T ype 2 diabetes mellitus with hemoglobin A1c goal of less than 7.0% (HCC) CHANGE EVERY 10 DAYS. USE TO CHECK BLOOD SUGARS CONTINUOUSLY 3 Each 11 03/14/2023 Active Dexcom G7 Fireman Helper DeviceIndications:T ype 2 diabetes mellitus with hemoglobin A1c goal of less than 7.0% (HCC) USE TO CHECK BLOOD SUGARS CONTINOUSLY 1 Each 03/14/2023 Active Carvedilol 3.125 MG Oral Tablet (Coreg)Indications: HTN, goal below 140/90 Take 1 Tablet by mouth 2 times a day with morning and evening meals. 180 Tablet 3 05/04/2023 Active Potassium Chloride 20 MEQ Oral PacketIndications:H ypokalemia Take 20 mEq by mouth in the morning. 90 Packet 3 07/15/2023 Active DULoxetine HCl 20 MG Oral Capsule Delayed Release Particles (duloxetine)Indicat ions:MAYELA (generalized anxiety disorder) Take 1 Capsule by [...] then increase by 2 units and continue. 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 0 to 44.9 in adult 11/08/2017 12/20/2017 Overview: Per Obesity protocol #1 documented as of this encounter (statuses as of 12/20/2023) Immunizations Name Administration Dates Next Due Pneumococcal Conjugate Vacci ne, 20-valent ([id number]) 02/24/2023 Pneumococcal Polysaccharide PPV23 (Pneumovax) 05/04/2015 Seasonal [...] money to get more. Never true 10/19/2023 Childcare Answer Date Recorded Do you feel overwhelmed with taking care of a child, family member or friend? No 10/19/2023 Does your family need help f inding childcare? (Household - for ages 0-17 years) Not on file 10/19/2023 Clothing Answer Date Recorded Have you been unable to get clothing when it was really needed? No 10/19/2023 Is your family able to get c lothes or diapers when needed? (Household - for ages 0-17 years) Not on file 10/19/2023 Personal Safety Answer Date Recorded Do you feel unsafe or have concerns for your saf ety? No 10/19/2023 Do you have concerns for you r family's safety? (Household - for ages 0-17 years) Not on file 10/19/2023 Utilities Answer Date Recorded Do you have trouble paying y our heating, water, or electric bill? No 10/19/2023 Is your family able to pay t he heat, water, or electric bill? (Household - for ages 0-17 years) Not on file 10/19/2023 Does your family have access to good internet? (Household - for ages 0-17 years) Not on file 10/19/2023 Employment Status Answer Date Recorded Are you unemployed or without regular income? No 10/19/2023 Does the household have a re gular source of income? (Household - for ages 0-17 years) Not on file 10/19/2023 Social Connections Answer Date Recorded How often do you feel lonely or isolated from th ose around you? Never 10/19/2023 Financial Resource Strain Answer Date R ecorded Do you have any trouble payi ng for your medications, or do you think you might in the future? No 10/19/2023 Does your family have troubl e paying for medicine? (Household - for ages 0-17 years) Not on file 10/19/2023 Transportation Needs Answer Date Record ed READ ONLY Do you have troubl e getting a ride to medical visits or work? Never True 10/19/2023 Does your family have a hard time getting a ride to doctors visits? (Household - for ages 0-17 years) Not on file 10/19/2023 Has lack of transportation k ept you from medical appointments, meetings, work, or from getting things needed for daily living? Check all that apply. (Adult - for ages 18 years and over) Not on file 10/19/2023 Do you (or your family) have trouble finding or paying for a ride (transportation)? (Household - for ages 0-17 years) Not on file 10/19/2023 Housing Stability Answer Date Recorded Do you currently live in a s helter or have no steady place to sleep at night? No 10/19/2023 READ ONLY Do you think you a re at risk of becoming homeless? No 10/19/2023 Does your family worry about paying for your home or becoming homeless? (Household - for ages 0-17 years) Not on file 0 10/19/2023 Are you homeless or worried that you might be in the future? (Adult - for ages 18 years and over) Not on file Are you (or your family) seregy eless or worried that you might be in the future? (Household - for ages 0-17 years) Not on file Food Insecurity Answer Date Recorded Do you need food for this week? No 10/19/2023 Are you able to get enough f ood for your family? (Household - for ages 0-17 years) Not on file 10/19/2023 Does your family need food t his week? (Household - for ages 0-17 years) Not on file 10/19/2023 Do you always have enough fo od for your family? (Household - for ages 0-17 years) Not on file 10/19/2023 Sex and Gender Information Value Date Recorded Sex Assigned at Not on file Gender Identity Not on file Sexual Orientation Not on file Job Start Date Occupation Industry Not on file Not on file Not on file documented as of this encounter Last Filed Vital Signs Vital Sign Reading Time Taken Comments Blood Pressure 116/70 12/20/2023 4:24 PM EDT Pulse 96 12/20/2023 4:24 PM EDT Temperature 36.4 C (97.6 F) 12/20/2023 4:24 PM ED T Respiratory Rate 18 12/20/2023 4:24 PM EDT Oxygen Saturation 99% 12/20/2023 4:24 PM EDT Inhaled Oxygen Concentration - - Weight - - Height - - Body Mass Index - - documented in this encounter Progress Notes * Lucia Echevarria RN - 12/20/2023 10:41 AM EDT [facility] Metal Spr[facility] Visit Date: 12/20/2023 Time: 10:41 AM Name: Umair Harrison : 1960 Current Concerns: Pt seen for return RNCM visit He reports he has been feeling good, "nothing new" Denies pain Denies falls Has Dexcom G7 for blood glucose monitoring but ran out of sensors States first one only worked for 1 day and the 2nd one only worked for a few days so now he has to wait until next shipment He is doing fingersticks - states he does it 1-2 x a day Checked glucometer and only found reading from 12/17 at 5:44pm -169 and 12/07 at 3:11pm -219 Reading today is 93 Called dexcom for pt to get new sensors since they failed - he was unable to get through when he tried on his own Dexcom will send replacement sensors Bottles out med rec done Pt has all meds except potassium States he is aware he is out and has to take money to pharmacy to pick it up Physical Exam: BP 116/70 | Pulse 96 | Temp 36.4 C (97.6 F) | Resp 18 | SpO2 99% [...] Negative. HENT: Negative. Eyes: Negative. Respiratory: Negative. Gastrointestinal: Negative. Genitourinary: Negative. Musculoskeletal: Right BKA Skin: Negative. Neurological: Negative. Hematological: Negative. Psychiatric/Behavioral: Negative. Medication Reconciliation: (See medication list) Does patient take medications as ordered: Yes Patient Well Being: PHQ2/9: No questionnaires available. No change in living situation Denies falls [facility]-10 Completed this Visit: No. Routine visit and No falls since last visit Advanced Care Planning: No documentation, acp on file. Reinforcement/Education: DIABETES: -Blood sugar testing schedule: Twice [...] regimen. Timing., Dosing., and Purspose. Treatment/Plan: Continue medications as ordered Dexcom for blood glucose monitoring Fall precautions Use walker at all times Be sure to eat a balanced diet and refrain from drinking MTM discharged d/t noncompliance/no shows Ultrasonic Hand Solderer involved Home Interventions Provided: Home Intervention: Other; eval Reinforced current Plan of Care, including self-management and medication regimen Patient's 'Red Flags': Bsg <70 or >350 more than once a week Dizzy/lightheaded Feeling confused or mentally foggy Patient Needs to Remember: Call [facility] at with any new or worsening [...] visits & schedule home visit with care team manager(s)as indicated. Provider is in agreement with Plan of Care: Yes Scheduled to follow up with patient in 3 weeks with CHW, 3 weeks after with RNCM . Lucia Echevarria RN 12/20/2023 10:41 AM documented in this encounter Plan of Treatment Upcoming Encounters Date Type Department Care Team (Late st Contact Info) Description 12/27/2023 3:00 PM EDT Scheduled Telephone [facility], [facility] [address] [facility] [address] Nhi Shetty, RDN [address] [facility] [address] 01/12/2024 1:00 PM EDT [facility] [address] [place] [address] Gavi Apple, [facility] Bleach Boiler Puller [address] [place] [address] 02/06/2024 12:30 PM EDT Home Visit [facility], [facility] [address] [place] [address] Lucia Echevarria RN [address] [place] [address] Health Maintenance Due Date Last Done Comments Diabetic Eye Exam 1980 Cologuard 2007 Colonoscopy 2007 Colorectal Cancer Screening 2007 Fecal Occult Blood Test 2007 Sigmoidoscopy 2007 Zoster Vaccines (1 of 2) 2012 DISCUSS TOBACCO CESSATION (REFER TO SMARTSET #3291) 03/15/2019 03/15/2018 Depression Monitoring 06/16/2019 06/16/2018 COVID-19 Vaccine (1 - season) 2023 Albumin/Creatinine Ratio 05/10/2023 05/10/2022 HbA1c 11/02/2023 05/04/2023, 09/0 12/2022, 05/10/2022, Additional history exists Influenza Vaccine (FLU shot) (#1) 2024 02/24/2023, 03/15/2018, 03/25/2017 Diabetic Foot Exam 02/25/2024 02/24/2023 GFR 02/25/2024 02/24/2023, 04/21, 11/13/2018, Additional history exists DTaP,Tdap,and Td Vaccines (2 - Td or Tdap) 03/25/2027 03/25/2017 Lipid Panel 05/26/2028 05/26/2023, 04/21, 10/10/2017 Lung Cancer Screening Completed 12/08/2017 Pneumococcal Vaccine: Pediatrics (0 to 5 Years) and At-Risk Patients (6 to 64 Years) Completed 02/24/2023, 05/04/2015 HPV (Gardasil) Vaccine Aged Out No lo nger eligible based on patient's age to complete this topic Hepatitis B Vaccine Aged Out No longe r eligible based on patient's age to complete this topic MENINGOCOCCAL (MENACTRA/MENVEO) Aged Out No longer eligible based on patient's age to complete this topic documented as of this encounter Medical Devices Not on filedocumented as of this encounter Care Teams Machine Fastener Relationship Specialty Start Date End Date Liyah Oseguera MD [address] [place] [address] PCP - General Internal Medicine 03/25/17 documented as of this encounter
--- OUTSIDE RECORDS SUMMARY | 2024-01-06 22:43 | External Medical Summary | Summary of Care ---
Author Name Unknown Organization [facility] Address [address] [place] [address] Phone [phone] Care Team Providers Care Heading Matcher And Assembler Name Role Phone Liyah Oseguera MD Primary Care Provider [phone] Reason for Visit * Reason Comments [facility]: Maintenance Encounter Details Date Type Department Care Team (Late st Contact Info) Description 11/09/2023 11:30 AM EDT Home Visit [facility], [facility] [address] [place] [address] Lucia Echevarria RN [address] [place] [address] Allergies No known active allergiesdocumented as of this encounter (statuses as of 11/09/2023) Medications Medication Sig Dispensed Refills Start Date [...] 3 Each 11 03/14/2023 Active Dexcom G7 Silvering Department Supervisor DeviceIndications:T ype 2 diabetes mellitus with hemoglobin [...] as of this encounter (statuses as of 11/09/2023) Active Problems Problem Noted Date Diagnosed Date Other chronic pancreatitis 04/20/2023 Type 2 diabetes mellitus wit h hemoglobin A1c goal of less than 7.0% 02/24/2023 Last Assessment & Plan: Insulin dependent Recent referral to [facility] for management Hemoglobin AIC Results: Lab [...] as of this encounter (statuses as of 11/09/2023) Resolved Problems Problem Noted Date Diagnosed Date Resolved Date Acute respiratory failure with hypoxia 03/03/2023 03/03/2023 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 0 to 44.9 in adult 11/08/2017 12/20/2017 Overview: Per Obesity protocol #1 documented as of this encounter (statuses as of 11/09/2023) Immunizations Name Administration Dates Next Due Pneumococcal Conjugate Vacci ne, 20-valent ([id number]) 02/24/2023 Pneumococcal Polysaccharide PPV23 (Pneumovax) 05/04/2015 Seasonal [...] Sign Reading Time Taken Comments Blood Pressure 112/62 11/09/2023 11:33 AM EDT Pulse 96 11/09/2023 11:33 AM EDT Temperature 36.7 C (98 F) 11/09/2023 11:33 AM EDT Respiratory Rate 18 11/09/2023 11:33 AM EDT Oxygen Saturation 98% 11/09/2023 11:33 AM EDT Inhaled Oxygen Concentration - - Weight - - Height - - Body Mass Index - - documented in this encounter Progress Notes * Lucia Echevarria RN - 11/09/2023 11:24 AM EDT [facility] Lead Front Desk Agent Visit Date: 11/09/2023 Time: 11:24 AM Name: Umiar Harrison : 1960 Current Concerns: Pt seen for return RNCM visit Per Dexcom reader, 14 day summary report show average glucose has been 138 56% of time in range, 19% high, 9% very high, 11% Low and 5% very low He reports the lowest has been in the 50's and highest in 350's Pt reports he has been feeling well Meds reviewed, bottles out Pt was able to read off med bottles and say how often he takes each med Also able to report how much insulin he takes and at what time No acute concerns at this time Physical Exam: BP 112/62 | Pulse 96 | Temp 36.7 C (98 F) | Resp 18 | SpO2 98% [...] Negative. Respiratory: Negative. Cardiovascular: Negative. Gastrointestinal: Negative. Genitourinary: Negative. Musculoskeletal: Right BKA Skin: Negative. Neurological: Negative. Psychiatric/Behavioral: Negative. Medication Reconciliation: (See medication list) Does patient take medications as ordered: Yes Patient Well Being: PHQ2/9: No questionnaires available. No change in living situation Denies falls [facility]-10 Completed this Visit: No. Routine visit and [...] from drinking MTM discharged d/t noncompliance/no shows Fur Storage Clerk involved Home Interventions Provided: Home Intervention: Other; eval Reinforced current Plan of Care, including self-management and medication regimen Patient's 'Red Flags': Bsg <70 or >350 more than once a week Dizzy/lightheaded Feeling confused or mentally foggy Patient Needs to Remember: Call [facility] at with any new or worsening [...] visits & schedule home visit with care cps team lead(s)as indicated. Provider is in agreement with Plan of Care: Yes Scheduled to follow up with patient in 3 weeks with CHW, 3 weeks after with RNCM . Lucia Echevarria RN 11/09/2023 11:24 AM documented in this encounter Plan of Treatment Upcoming Encounters Date Type Department Care Team (Late st Contact Info) Description 11/29/2023 10:00 AM EDT Scheduled Telephone [facility], [facility] [address] [facility] [place] [address] Nhi Shetty RDN [address] [facility] [place] [address] 11/30/2023 11:00 AM EDT [facility] [address] [facility] [address] Gavi Apple, [facility] Laster Hand [address] [place] [facility] [place] [address] 12/20/2023 4:00 PM EDT Home Visit [facility], [facility] [address] [address] Lucia Echevarria, RN [address] [place] [address] [address] Health Maintenance Due Date Last Done Comments Diabetic Eye Exam 1980 Cologuard 2007 Colonoscopy 2007 Colorectal Cancer Screening 2007 Fecal Occult Blood Test 2007 Sigmoidoscopy 2007 Zoster Vaccines (1 of 2) 2012 DISCUSS TOBACCO CESSATION (REFER TO SMARTSET #3291) 03/15/2019 03/15/2018 COVID-19 Vaccine ( season) 2023 Albumin/Creatinine Ratio 05/10/2023 05/10/2022 HbA1c 11/02/2023 05/04/2023, 12/2022, 05/10/2022, Additional history exists Diabetic Foot [...] filedocumented as of this encounter Care Teams Heading Matcher And Assembler Relationship Specialty Start Date End Date Liyah Oseguera MD [address] [facility] [place] [address] PCP - General Internal Medicine 03/25/17 documented as of this encounter"
--- OUTSIDE RECORDS SUMMARY | 2024-01-06 22:43 | External Medical Summary | Summary of Care ---
Author Name Unknown Organization [facility] Address [address] [place] [address] Phone [phone] Care Team Providers Care Project Management Consultant Name Role Phone Liyah Oseguera MD Primary Care Provider [phone] Encounter Details Date Type Department Care Team (Late st Contact Info) Description 11/30/2023 11:00 AM EDT Home Visit [facility] [address], [place] [id number] Gavi Apple, [facility] Senior Financial Reporting Analyst [address], [place] [id number] Allergies No known active allergiesdocumented as of this encounter (statuses as of 11/30/2023) Medications Medication Sig Dispensed Refills Start Date [...] 3 Each 11 03/14/2023 Active Dexcom G7 Gold Leaf Layer DeviceIndications:T ype 2 diabetes mellitus with hemoglobin [...] as of this encounter (statuses as of 11/30/2023) Active Problems Problem Noted Date Diagnosed Date Other chronic pancreatitis 04/20/2023 Type 2 diabetes mellitus wit h hemoglobin A1c goal of less than 7.0% 02/24/2023 Last Assessment & Plan: Insulin dependent Recent referral to [facility] for management Hemoglobin AIC Results: Lab [...] as of this encounter (statuses as of 11/30/2023) Resolved Problems Problem Noted Date Diagnosed Date Resolved Date Acute respiratory failure with hypoxia 03/03/2023 03/03/2023 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 0 to 44.9 in adult 11/08/2017 12/20/2017 Overview: Per Obesity protocol #1 documented as of this encounter (statuses as of 11/30/2023) Immunizations Name Administration Dates Next Due Pneumococcal Conjugate Vacci ne, 20-valent ([id number]) 02/24/2023 Pneumococcal Polysaccharide PPV23 (Pneumovax) 05/04/2015 Seasonal [...] Sign Reading Time Taken Comments Blood Pressure 140/110 11/30/2023 11:14 AM EDT Pulse 97 11/30/2023 11:14 AM EDT Temperature 36.3 C (97.4 F) 11/30/2023 11:14 AM E DT Respiratory Rate - - Oxygen Saturation 97% 11/30/2023 11:14 AM EDT Inhaled Oxygen Concentration - - Weight - - Height - - Body Mass Index - - documented in this encounter Progress Notes * Gavi Apple, [facility] Senior Financial Reporting Analyst - 11/30/2023 11:10 AM EDT Telemedicine visit: No [facility] Senior Financial Reporting Analyst (CANDE) documentation: CHW facilitated home visit with patient CHW arrived at entrance to building and buzzed in and patient left CHW in. Got up to apartment and patient was not there. Than patient came walking down the matamoros from being outside. Patient reported that he is doing well and has no concerns or worries at this time. Patient gave his brother Epifanio contact info for an additional emergency contact. CHW listed this in the yellow sticky note. CHW reviewed upcoming appointments and the next visit coming up with Leslie. Gavi Apple- Community Health Worker 1 Support Services/[facility] [email or web address] Electronically signed by Gavi Apple, [facility] Senior Financial Reporting Analyst at 11/30/2023 11:26 AM EDT documented in this encounter Plan of Treatment Upcoming Encounters Date Type Department Care Team (Late st Contact Info) Description 12/20/2023 4:00 PM EDT [facility] Visit [facility] [address] [facility] [place] [address] Lucia Echevarria RN [address] [facility] [place] [address] 12/27/2023 3:00 PM EDT Scheduled Telephone [facility], [facility] [address] [place] [address] Nhi Shetty RDN [address] [place] [address] Health Maintenance Due Date Last Done Comments Diabetic Eye Exam 1980 Cologuard 2007 Colonoscopy 2007 Colorectal Cancer Screening 2007 Fecal Occult Blood Test 2007 Sigmoidoscopy 2007 Zoster Vaccines (1 of 2) 2012 DISCUSS TOBACCO CESSATION (REFER TO SMARTSET #3291) 03/15/2019 03/15/2018 Depression Monitoring 06/16/2019 06/16/2018 COVID-19 Vaccine ( season) 2023 Albumin/Creatinine Ratio [...] filedocumented as of this encounter Care Teams Project Management Consultant Relationship Specialty Start Date End Date Liyah Oseguera MD [address] [place] [address] PCP - General Internal Medicine 03/25/17 documented as of this encounter
--- OUTSIDE RECORDS SUMMARY | 2024-01-06 22:43 | External Medical Summary | Summary of Care ---
Author Name Unknown Organization [facility] Address [address] [place] [address] Phone [phone] Care Team Providers Care Convertible Power Shovel Operator Name Role Phone Liyah Oseguera MD Primary Care Provider [phone] Reason for Visit * Reason Onset Date Comments Diabetic Counseling 10/18/2023 Medical Nutrition Therapy 10/18/2023 Encounter Details Date Type Department Care Team (Late st Contact Info) Description 10/18/2023 Telephone [facility], [facility] [address] [place] [facility] [place] [address] Nhi Shetty, RDN [address] [place] [address] Diabetic Counseling; Medical Nutrition The... Allergies No known active allergiesdocumented as of this encounter (statuses as of 10/18/2023) Medications Medication Sig Dispensed Refills Start Date End Date Status polyethylene glycol 3350 (MIRALAX) 255 gram powderIndications:O ther constipation Take 17 g by mouth as needed for Constipation. Dissolve one heaping tablespoon in 8 ounces of water or juice. 1 Bottle 2 06/16/2018 Active Daily Elise Oral Tablet Take 1 Tab by mouth daily. 0 Active Thiamine HCl [...] 3 Each 11 03/14/2023 Active Dexcom G7 Flame Annealing Machine Operator DeviceIndications:T ype 2 diabetes mellitus [...] before bedtime. 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 0 to 44.9 in adult 11/08/2017 12/20/2017 Overview: Per Obesity protocol #1 documented as of this encounter (statuses as of 10/18/2023) Immunizations Name Administration Dates Next Due Pneumococcal Conjugate Vacci ne, 20-valent ([id number]) 02/24/2023 Pneumococcal Polysaccharide PPV23 (Pneumovax) 05/04/2015 Seasonal [...] Miscellaneous Notes * Telephone Encounter - Nhi Shetty, LEXIS - 10/18/2023 1:58 PM EDT NUTRITION PROGRESS NOTE - [facility] Communication [facility] nutrition follow up this date. Patient reports he continues with three meals per day. Denies recent hypoglycemia. Accuracy of report questionable. States he "Cut back on beer a bit". See 10/04/2023 home visit. Dexcom read "low". "Friend present and reports he drinks too much beer and then doesn't eat and that's when he gets into trouble" It appear's patient's alcohol abuse is playing a role in DM management. I offered to connect him toresources to help manage today, but he declined. Patient is at high risk for hypoglycemia. Rule of 15 has been reviewed. I do not see an order for anti-hypoglycemia medication in home if patient is in an unconsciousness state. Recommending order for same. Support system (family/ friend) may need inhome education on how to provide. Recommendation being sent to care team. Thank you, JAMES Roberson, ERICN, LDN Clinical Dietitian [facility] documented in this encounter Plan of Treatment Upcoming Encounters Date Type Department Care Team (Late st Contact Info) Description 10/19/2023 11:00 AM EDT Home Visit [facility] Coordination [facility] Integration [address] [place] [address] Gavi Apple, Community Health General Contractor [address] [place] [address] 11/09/2023 11:30 AM EDT Home Visit [facility], [facility] [address] [facility] [place] [address] Lucia Echevarria, RN [address] [place] [address] 11/29/2023 10:00 AM EDT Scheduled Telephone [facility], [facility] [address] [facility] [place] [id number] Nhi Shetty RDN [address] [facility] [place] [address] Health Maintenance Due Date Last Done Comments Diabetic Eye Exam 1980 Cologuard 2007 Colonoscopy 2007 Colorectal Cancer Screening 2007 Fecal Occult Blood Test 2007 Sigmoidoscopy 2007 Zoster Vaccines (1 of 2) 2012 DISCUSS TOBACCO CESSATION (REFER TO SMARTSET #3291) 03/15/2019 03/15/2018 COVID-19 Vaccine ( season) 2023 Albumin/Creatinine Ratio 05/10/2023 05/10/2022 HbA1c 11/02/2023 05/04/2023, 0912/2022, 05/10/2022, Additional history exists Diabetic Foot Exam [...] Primary documented in this encounter Care Teams Convertible Power Shovel Operator Relationship Specialty Start Date End Date Liyah Oseguera MD [address] [place] [address] PCP - General Internal Medicine 03/25/17 documented as of this encounter
--- OUTSIDE RECORDS SUMMARY | 2024-01-06 22:43 | External Medical Summary | Summary of Care ---
Author Name Unknown Organization [facility] Address [address] [place] [address] Phone [phone] Care Team Providers Care Caponizer Name Role Phone Liyah Oseguera MD Primary Care Provider [phone] Reason for Visit * Reason Onset Date Comments Medical Nutrition Therapy 12/27/2023 Encounter Details Date Type Department Care Team (Latest Contact Info) Description 12/27/2023 3:00 PM EDT [facility] [address] [facility] [address] Nhi Shetty, RDN [address] [place] [address] Type 2 diabetes mellitus with hemoglobin A1c goal of less than 7.0% ([facility])* Allergies No known active allergiesdocumented as of this encounter (statuses as of 12/27/2023) Medications Medication Sig Dispensed Refills Start Date [...] 3 Each 11 03/14/2023 Active Dexcom G7 Store Leader DeviceIndications:T ype 2 diabetes mellitus with hemoglobin [...] hemoglobin A1c goal of less than 7.0% ([facility]) Inject 20 Units under the skin in the morning. If fasting sugar is > 125 for 3 days then increase by 2 units and continue. 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 0 to 44.9 in adult 11/08/2017 12/20/2017 Overview: Per Obesity protocol #1 documented as of this encounter (statuses as of 12/27/2023) Immunizations Name Administration Dates Next Due Pneumococcal Conjugate Vacci ne, 20-valent ([id number]) 02/24/2023 Pneumococcal Polysaccharide PPV23 (Pneumovax) 05/04/2015 Seasonal [...] 10/19/2023 Does the household have a re lar source of income? (Household - for ages [...] on file Are you (or your family) sergey eless or worried that you might be [...] Telephone Encounter - Nhi Shetty RDN - 12/27/2023 3:22 PM EDT NUTRITION FOLLOW-UP NOTE - [facility] Name: Umair Harrison Location: [facility], [facility] Date: 12/27/2023 Time: 3:22 PM Reason for Nutrition Follow-up: Type 2 Diabetes NUTRITION ASSESSMENT: Second attempt to contact pt for telephonic [facility] nutrition follow up. Called x 2. No answer this date. Voice message left with RDN contact information and purpose of phone call. No active [facility]. Letter mailed to pt this date with ERICN contact information. No further attempts to contact pt will be made at this time. Follow up pending pt's return call to RDN. CM RN aware. If pt shows future interest in speaking to RDN please refer. Thank you. Nhi Shetty, L[place]IS [facility] documented in this encounter Plan of Treatment Upcoming Encounters Date Type Department Care Team (Late st Contact Info) Description 01/12/2024 1:00 PM EDT Home Visit Care Coordination and Integration [address] [place] [address] Gavi Apple, Community Health Sales Associate Fishing [address] [place] [address] 02/06/2024 12:30 PM EDT [facility] [address] [facility] [place] [address] Lucia Echevarria, RN [address] [place] [address] Health Maintenance Due Date Last Done Comments Diabetic Eye Exam 1980 Cologuard 2007 Colonoscopy 2007 Colorectal Cancer Screening 2007 Fecal Occult Blood Test 2007 Sigmoidoscopy 2007 Zoster Vaccines (1 of 2) 2012 DISCUSS TOBACCO CESSATION (REFER TO SMARTSET #3291) 03/15/2019 03/15/2018 Depression Monitoring 06/16/2019 06/16/2018 COVID-19 Vaccine ( season) 2023 Albumin/Creatinine Ratio 05/10/2023 05/10/2022 HbA1c 11/02/2023 05/04/2023, 090 12/2022, 05/10/2022, Additional history exists Influenza Vaccine [...] Primary documented in this encounter Care Teams Caponizer Relationship Specialty Start Date End Date Liyah Oseguera MD [address] [place] [address] PCP - General Internal Medicine 03/25/17 documented as of this encounter
--- OUTSIDE RECORDS SUMMARY | 2024-01-06 22:43 | External Medical Summary | Summary of Care ---
Author Name Unknown Organization [facility] Address [address] [place] [address] Phone [phone] Care Team Providers Care Arts And Sciences Dean Name Role Phone Liyah Oseguera MD Primary Care Provider [phone] Reason for Visit * Reason Onset Date Comments Medical Nutrition Therapy 10/18/2023 Encounter Details Date Type Department Care Team (Latest Contact Info) Description 10/18/2023 11:30 AM EDT Scheduled Telephone [facility], [facility] [address] [facility] [place] [address] Nhi Shetty, RDN [address] [place] [address] Type 2 diabetes mellitus with hemoglobin A1c goal of less than 7.0% ([facility])* Allergies No known active allergiesdocumented [...] 3 Each 11 03/14/2023 Active Dexcom G7 Laborer Syrup Machine DeviceIndications:T ype 2 diabetes mellitus with hemoglobin [...] & Plan: Insulin dependent Recent referral to [facility] for management Hemoglobin AIC Results: [...] 04/20/2023 Last Assessment & Plan: Managed via [facility] for wound care Acquired absence of right leg below knee 02/24/2023 03/03/2023 Hypokalemia 05/10/2022 04/20/2023 Alcohol dependence with with drawal, unspecified 03/15/2018 03/15/2018 Body mass index (BMI) of 40. 0 to 44.9 in adult 11/08/2017 12/20/2017 Overview: Per Obesity protocol #1 documented as of this encounter (statuses as of 10/18/2023) Immunizations Name Administration Dates Next Due Pneumococcal Conjugate Vacci ne, 20-valent ([id number]) 02/24/2023 Pneumococcal Polysaccharide PPV23 (Pneumovax) 05/04/2015 Seasonal [...] Telephone Encounter - Nhi Shetty RDN - 10/18/2023 1:42 PM EDT NUTRITION PROGRESS NOTE - [facility] TELEPHONIC [facility] Patient Phone Numbers: [phone] Mobile Call placed to pt as follow-up. Last nutrition follow up 09/06/2023. Question excessive alcohol intake contributing to uncontrolled DM/ hypoglycemia. See 09/06/2023 encounter to PCP and [facility] care team. MTM attempted to schedule appointment. Patient declined MTM appointment. See 09/28/2023 RN CM home visit. Patient with hypoglycemic episode. Notes "Friend present and reports he drinks too much beer and then doesn't eat and that's when he gets into trouble" Patient reporting "doing alright". Denies episodes of low BG since RN CM home visit. Questing accuracy. Asked patient why he declined MTM. Pt reports "no time for that". Advised they do work over thephone. Patient did not voice interest in referral. Reports Appetite "alright" three meals per day. Asked about beer consumption. Patient states cut back a little. Again reviewed risk of excessive alcohol consumption, risk of low BG including . Advised if going to consume, consume in moderationand with meals. Avoid drinking alcohol and skipping meals. Wt Readings from Last 3 Encounters: 02/24/23 73.4 kg (161 lb 14.4 oz) 05/10/22 80.3 kg (177 lb 1.6 oz) 06/16/18 101.6 kg (224 lb) Previous Nutrition Goals: Continue with HS snack Plate method, source of carbohydrates at dinner (1/4 of plate) reports continues with 3 meals per day. Highly advised to avoid alcohol consumption as patient reports episodes of hypoglycemia related to ETOH intake. Patient states "cut back a little bit". I offered to connect patient to resources to help with management of alcohol consumption as it appears patient consumes in excess. Patient declined. States "Na, I am alright". Reinforced having treatment for low BG in home I.e. juice, soda. No anti-hypoglycemia medication in home. Recommending order for. See encounter to care team. Reinforced nutrition goals. Encouraged continued progress towards goals Follow up as scheduled. Encouraged pt to contact [facility] at [phone] for any non-emergent changes/concerns. JAMES Roberson, ERICN, LDN Clinical Dietitian [facility] documented in this encounter Plan of Treatment Upcoming Encounters Date Type Department Care Team (Late st Contact Info) Description 10/19/2023 11:00 AM EDT Home Visit Care Coordination and Integration [address] [place] [address] Gavi Apple, Community Health Mover Helper [address] [place] [address] 11/09/2023 11:30 AM EDT Home Visit [facility], [facility] [address] [facility] [place] [address] Lucia Echevarria RN [address] [facility] [place] [address] 11/29/2023 10:00 AM EDT Scheduled Telephone [facility], [facility] [address] [facility] [place] [address] Nhi Shetty RDN [address] [facility] [place] [address] Health Maintenance Due Date Last Done Comments [...] Primary documented in this encounter Care Teams Arts And Sciences Dean Relationship Specialty Start Date End Date Liyah Oseguera MD [address] [place] [address] PCP - General Internal Medicine 03/25/17 documented as of this encounter
--- OUTSIDE RECORDS SUMMARY | 2024-01-06 22:43 | External Medical Summary | Summary of Care ---
Author Name Unknown Organization [facility] Address [address] [place] [address] Phone [phone] Care Team Providers Care Textiles Sales Representative Name Role Phone Liyah Oseguera MD Primary Care Provider [phone] Reason for Visit * Reason Onset Date Comments Medication Refill 10/18/2023 Encounter Details Date Type Department Care Team (Late st Contact Info) Description 10/18/2023 Refill General Internal Medicine [facility] [address] [facility] [place] [address] Liyah Oseguera MD [address] [place] [address] Type 2 diabetes mellitus with hemoglobin A1c goal of less than 7.0% ([facility]) Allergies No known active allergiesdocumented as of [...] 3 Each 11 03/14/2023 Active Dexcom G7 Rigging Loft Repairer DeviceIndications :Type 2 diabetes mellitus with hemoglobin [...] units and continue. 15 mL 10/18/2023 Active Insulin Glargine Solostar 100 UNIT/ML Subcutaneous Solution Pen-injectorIndic ations:Type 2 diabetes mellitus with hemoglobin A1c goal of less than 7.0% ([facility]) Inject 20 Units under the skin in the morning. If fasting sugar is > 125 for 3 days then increase by 2 units and continue. 04/20/2023 Discontinue d(Refill) documented as of this encounter (statuses as of 11/09/2023) Active Problems Problem Noted Date Diagnosed Date Other chronic pancreatitis 04/20/2023 Type 2 diabetes mellitus wit h hemoglobin A1c goal of less than 7.0% 02/24/2023 Last Assessment & Plan: Insulin dependent Recent referral to [facility] for management Hemoglobin AIC [...] 04/20/2023 Last Assessment & Plan: Managed via [facility] [facility] for wound care Acquired absence of right leg below knee 02/24/2023 03/03/2023 Hypokalemia 05/10/2022 04/20/2023 Alcohol dependence with with drawal, unspecified 03/15/2018 03/15/2018 Body mass index (BMI) of 40. 0 to 44.9 in adult 11/08/2017 12/20/2017 Overview: Per Obesity protocol #1 documented as of this encounter (statuses as of 11/09/2023) Immunizations Name Administration Dates Next Due Pneumococcal Conjugate Vacci ne, 20-valent ([id number]) 02/24/2023 Pneumococcal Polysaccharide PPV23 (Pneumovax) 05/04/2015 Seasonal [...] encounter Miscellaneous Notes * Telephone Encounter - Devonte Mims OSA - 11/09/2023 9:45 AM EDT Pt scheduled * Telephone Encounter - Liyah Oseguera MD - 10/18/2023 3:57 PM EDTSigned Prescriptions: Disp Refills Insulin Glargine Solostar 100 UNIT/ML Subc*15 mL 0 Sig: Inject 20 Units under the skin in the morning. If fasting sugar is > 125 for 3 days then increase by 2 units and continue. Authorizing Provider: LIYAH OSEGUERA * Telephone Encounter - Liyah Oseguera MD - 10/18/2023 3:57 PM EDT Please call the patient, he will need to schedule an appointment for additional refills. * Telephone Encounter - Wendy Neely PHARM Tech - 10/18/2023 2:46 PM EDT Pt asking if can be sent at earliest convenience Umair calling requesting the following medication below that is listed as "Historical". The following information was provided: Medication Name: Lantus Solostar Strength: 100 unit/mL Pens Directions: 20 units Preferred Quantity: 15mL Previous Prescriber: Tara Hunter Preferred Pharmacy: [id number] [place] Please review and approve if appropriate. Thank You, Wendy Neely tile presser Highway Engineering Technician II [facility] ([facility]) (Formerly Telepharmacy) 10/18/2023, 2:48 PM documented in this encounter Plan of Treatment Upcoming Encounters Date Type Department Care Team (Late st Contact Info) Description 11/09/2023 11:30 AM EDT [facility], [place] [facility] [address] [place] [address] Lucia Echevarria, RN [address] [place] [address] 11/29/2023 10:00 AM EDT Scheduled Telephone [facility], [facility] [address] [place] [address] Nhi Shetty, L[place] [address] [place] [address] Health Maintenance Due Date Last Done Comments [...] (HCC) documented in this encounter Care Teams Textiles Sales Representative Relationship Specialty Start Date End Date Liyah Oseguera MD [address] [facility] [place] [address] PCP - General Internal Medicine 03/25/17 documented as of this encounter
--- OUTSIDE RECORDS SUMMARY | 2024-01-06 22:43 | External Medical Summary | Summary of Care ---
Author Name Unknown Organization [facility] Address [address] [place] [address] Phone [phone] Care Team Providers Care Disease And Insect Control Boss Name Role Phone Liyah Oseguera MD Primary Care Provider [phone] Encounter Details Date Type Department Care Team (Late st Contact Info) Description 10/19/2023 11:00 AM EDT Home Visit Care Coordination and Integration [address] [place], [place] [id number] Gavi Apple, Community Health Job Placement Officer [address] [place], [place] [id number] Allergies No known active allergiesdocumented as of this encounter (statuses as of 10/19/2023) Medications Medication Sig Dispensed Refills Start Date [...] 3 Each 11 03/14/2023 Active Dexcom G7 Ophthalmic Lens Inspector DeviceIndications:T ype 2 diabetes mellitus with hemoglobin A1c goal of less than 7.0% (HCC) USE TO CHECK BLOOD SUGARS CONTINOUSLY 1 Each 0 03/14/2023 Active Carvedilol 3.125 MG Oral Tablet [...] by 2 units and continue. 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 0 to 44.9 in adult 11/08/2017 12/20/2017 Overview: Per Obesity protocol #1 documented as of this encounter (statuses as of 10/19/2023) Immunizations Name Administration Dates Next Due Pneumococcal Conjugate Vacci ne, 20-valent ([id number]) 02/24/2023 Pneumococcal Polysaccharide PPV23 (Pneumovax) 05/04/2015 Seasonal [...] Sign Reading Time Taken Comments Blood Pressure 140/90 10/19/2023 11:15 AM EDT Pulse 78 10/19/2023 11:15 AM EDT Temperature 36.5 C (97.7 F) 10/19/2023 11:15 AM E DT Respiratory Rate - - Oxygen Saturation 98% 10/19/2023 11:15 AM EDT Inhaled Oxygen Concentration - - Weight - - Height - - Body Mass Index - - documented in this encounter Progress Notes * Gavi Apple, Community Health Job Placement Officer - 10/19/2023 11:19 AM EDT Telemedicine visit: No Community Health Job Placement Officer (CANDE) documentation: CHW initiated home visit/wellness visit with patient Patient did not report any concerns or worries at this time. Reported that he has been feeling welland had no questions regarding anything. Reported [facility]. Oseguera was to be taking care of this. CHW confirmed the next visitwould be Lucia on 11/09/23 at 11:30. Gavi Apple- Community Health Worker 1 Support Services/[facility] [email or web address] documented in this encounter Plan of Treatment Upcoming Encounters Date Type Department Care Team (Late st Contact Info) Description 11/09/2023 11:30 AM EDT Home Visit [facility], [facility] [address] [place] [address] Lucia Echevarria, RN [address] [facility] [place] [address] 11/29/2023 10:00 AM EDT Scheduled Telephone [facility], [facility] [address] [facility] [place] [address] Nhi Shetty RDN [address] [facility] [place] [address] Health Maintenance Due Date Last Done Comments [...] filedocumented as of this encounter Care Teams Disease And Insect Control Boss Relationship Specialty Start Date End Date Liyah Oseguera MD [address] [facility] [place] [address] PCP - General Internal Medicine 03/25/17 documented as of this encounter
--- OUTSIDE RECORDS SUMMARY | 2024-01-06 22:43 | External Medical Summary | Summary of Care ---
Author Name Unknown Organization [facility] Address [address] [place] [address] Phone [phone] Care Team Providers Care Entry Clerk Name Role Phone Liyah Oseguera MD Primary Care Provider [phone] Reason for Visit * Reason Onset Date Comments Diabetes Follow-Up 09/06/2023 Encounter Details Date Type Department Care Team (Late st Contact Info) Description 09/06/2023 Telephone [facility], [facility] [address] [place] [address] Nhi Shetty, RDN [address] [place] [address] Diabetes Follow-Up Allergies No known active allergiesdocumented as of this encounter (statuses as of 10/04/2023) Medications Medication Sig Dispensed Refills Start Date [...] 3 Each 11 03/14/2023 Active Dexcom G7 Supervisor Packing Room DeviceIndications:T ype 2 diabetes mellitus with hemoglobin [...] goal of less than 7.0% ([facility]) Take 2 Tablets by mouth in the morning and 2 Tablets before bedtime. 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 0 to 44.9 in adult 11/08/2017 12/20/2017 Overview: Per Obesity protocol #1 documented as of this encounter (statuses as of 10/04/2023) Immunizations Name Administration Dates Next Due Pneumococcal Conjugate Vacci ne, 20-valent ([id number]) 02/24/2023 Pneumococcal Polysaccharide PPV23 (Pneumovax) 05/04/2015 Seasonal [...] encounter Miscellaneous Notes * Telephone Encounter - Jeremi Caldwell OSA - 10/04/2023 10:52 AM EDT LMOM 10/03 * Telephone Encounter - Radha Paulson OSA - 09/26/2023 12:46 PM EDT LMOM. 09/26/2023 * Telephone Encounter - Idalia Hill PHARM Tech - 09/06/2023 3:41 PM EDT Spoke to pt to schedule his [facility] diabetes mgmt appt and he said he was not interested in scheduling his appt. Thank you, Idalia Hill Workforce Planning Analyst [facility] 09/06/2023,3:42 PM * Telephone Encounter - Tasneem Ramos RP - 09/06/2023 3:08 PM EDT Scheduling- please schedule patient for a NEW DM appointment at any of the local [facility] clinics ([facility], [facility]) whichever is most convenient for patient. Thanks, Tasneem Ramos, PharmD, [facility] Clinical Pharmacist Medication Therapy Disease Management 09/06/2023, 3:09 PM * Telephone Encounter - Nhi Shetty RDN - 09/06/2023 2:47 PM EDT [facility]UTRITION [facility]GR[facility] Nutrition follow up this date. Phone call to patient. Reports Hypoglycemia during the night up to multiple times per week. Pt admitted to drinking alcoholic beverage 1 x per week, 1 drink, but he reports known episodes of hypoglycemia with alcohol intake. I reviewed risks of alcohol intake and DM ma nagement/ hypoglycemia. I encouraged avoidance overall, but review intake in moderation and with a meal if he is going to consume. I question if his report of 1 drink per week is accurate. I did encouraged him to speak to provider if he is struggling with consuming more than what is report. We reviewed how to treat low BG. I encouraged him to become re-engaged with MTM. He did agree to this. Is consuming 3 meals per day. Discussed balanced meals today in terms of carbohydrate content. Patient continues with HS snack of Pband J sandwich. Per patient report: Dexcom Average 150 mg/dL per patient Lowest per patient 55 Highest 250 Low BG 1 -2 x per week. During the night. Fasting BG reported ~ 115. Dexcom does alert patient to lows. JAMES Roberson, RDN, LDN Clinical Dietitian [facility] documented in this encounter Plan of Treatment Upcoming Encounters Date Type Department Care Team (Late st Contact Info) Description 10/18/2023 11:30 AM EDT Scheduled Telephone [facility], [facility] [address] [facility] [place] [address] Nhi Shetty RDN [address] [facility] [address] 10/19/2023 11:00 AM EDT Home Visit [facility] [address] [place] [address] Gavi Apple, Community Health Proj Mgr [address] [place] [address] 11/09/2023 11:30 AM EDT Home Visit [facility], [facility] [address] [facility] [place] [address] Lucia Echevarria, RN [address] [place] [address] Health Maintenance Due Date Last Done Comments [...] filedocumented as of this encounter Care Teams Entry Clerk Relationship Specialty Start Date End Date Liyah Oseguera MD [address] [place] [address] PCP - General Internal Medicine 03/25/17 documented as of this encounter
--- OUTSIDE RECORDS SUMMARY | 2024-01-06 22:43 | External Medical Summary | Summary of Care ---
Author Name Unknown Organization [facility] Address [address] [place] [address] Phone [phone] Care Team Providers Care Continuous Miner Operator Helper Name Role Phone Liyah Oseguera MD Primary Care Provider [phone] Reason for Visit * Reason Comments [facility]: Maintenance Encounter Details Date Type Department Care Team (Late st Contact Info) Description 09/28/2023 2:00 PM EDT Home Visit [facility], [facility] [address] [place] [address] Lucia Echevarria RN [address] [place] [address] Allergies No known active allergiesdocumented as of this encounter (statuses as of 10/03/2023) Medications Medication Sig Dispensed Refills Start Date [...] 3 Each 11 03/14/2023 Active Dexcom G7 Genetics Teacher DeviceIndications:T ype 2 diabetes mellitus with hemoglobin [...] as of this encounter (statuses as of 10/03/2023) Active Problems Problem Noted Date Diagnosed Date Other chronic pancreatitis 04/20/2023 Type 2 diabetes mellitus wit h hemoglobin A1c goal of less than 7.0% 02/24/2023 Last Assessment & Plan: Insulin dependent Recent referral to [facility] for management Hemoglobin AIC Results: Lab [...] as of this encounter (statuses as of 10/03/2023) Resolved Problems Problem Noted Date Diagnosed Date Resolved Date Acute respiratory failure with hypoxia 03/03/2023 03/03/2023 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 0 to 44.9 in adult 11/08/2017 12/20/2017 Overview: Per Obesity protocol #1 documented as of this encounter (statuses as of 10/03/2023) Immunizations Name Administration Dates Next Due Pneumococcal Conjugate Vacci ne, 20-valent ([id number]) 02/24/2023 Pneumococcal Polysaccharide PPV23 (Pneumovax) 05/04/2015 Seasonal [...] Sign Reading Time Taken Comments Blood Pressure 122/80 09/28/2023 1:13 PM EDT Pulse 82 09/28/2023 1:13 PM EDT Temperature 35.7 C (96.2 F) 09/28/2023 1:13 PM ED T Respiratory Rate 18 09/28/2023 1:13 PM EDT Oxygen Saturation 98% 09/28/2023 1:13 PM EDT Inhaled Oxygen Concentration - - Weight - - Height - - Body Mass Index - - documented in this encounter Progress Notes * Lucia Echevarria, RN - 09/28/2023 11:14 AM EDT [facility] Melting Furnace Skimmer Visit Date: 09/28/2023 Time: 11:14 AM Name: Umair Harrison : 1960 Current Concerns: Pt seen for return RNCM visit Arrived to pt's home Pt came to door with walker Speech garbled Diaphoretic States "I'm sweating" Pt drank apple juice right away Checked dexcom and was reading "low" Pt then drank orange juice Started to eat MOW's meal of hoagie, blane slaw and cake Started to come up and first reading was "40" and then "56" Friend present and reports he drinks too much beer and then doesn't eat and that's when he gets into trouble After some time pt's blood glucose came up to 76 He was talking better, feeling better, and getting around with walking without difficulty Reviewed meds with pt and he was able to go through all meds without difficulty His friend was present and was sleeping when first arrived but then woke up and stated that pt sometimes "drinks for days at a time and doesn't eat" Friend said he told him he has to eat! Re-educated pt on importance of this Pt verbalized understanding Pt blood sugar was up to 98 by end of visit He was changing his bed linens and was steady on his feet He was able to show what insulins he takes and how he does it Physical Exam: BP 122/80 | Pulse 82 | Temp 35.7 C (96.2 F) | Resp 18 | SpO2 98% Pain 0 Physical Exam Constitutional: General: He is not in acute distress. Appearance: He is diaphoretic. Cardiovascular: Rate and Rhythm: Normal rate and regular rhythm. Pulses: Normal pulses. Heart sounds: Normal heart sounds. Pulmonary: Effort: Pulmonary effort is normal. Breath sounds: Normal breath sounds. Abdominal: General: Bowel sounds are normal. Palpations: Abdomen is soft. Skin: General: Skin is warm. Neurological: Mental Status: He is alert. Problems/Symptoms: Review of Systems Constitutional: Negative. HENT: Negative. Eyes: Negative. Respiratory: Negative. Gastrointestinal: Negative. Psychiatric/Behavioral: Negative. Medication Reconciliation: (See medication list) Does patient take medications as ordered: Yes Patient Well Being: PHQ2/9: No questionnaires available. No change in living situation Denies falls [facility] Completed this Visit: No. Routine visit Advanced Care Planning: No documentation, acp [...] from drinking MTM discharged d/t noncompliance/no shows Fern Picker involved Home Interventions Provided: Home Intervention: Other; eval Reinforced current Plan of Care, including self-management and medication regimen Patient's 'Red Flags': Blood sugar less than 70 more than once a week Dizzy/lightheaded Feeling confused or mentally foggy Patient Needs to Remember: Call [facility] at with any new or worsening health concerns or problems, red flag symptoms. Referrals Needed: Other none Follow Up: Is there cellular connectivity/connectivity in the home? Yes Does the patient have internet in the home? Yes Patient encouraged to call the intake phone number for all urgent but not emergent issues. Is the patient new to [facility] within the last 30 days? No, Assess appropriateness for upcoming telehealth visits. Cancel telehealth visits & schedule home visit with care executive team leader(s)as indicated. Provider is in agreement with Plan of Care: Yes Scheduled to follow up with patient in 3 weeks with Chw, 3 weeks after with RNCM. Lucia Echevarria RN 09/28/2023 11:14 AM documented in this encounter Plan of Treatment Upcoming Encounters Date Type Department Care Team (Late st Contact Info) Description 10/18/2023 11:30 AM EDT Scheduled Telephone [facility], [facility] [address] [place] [id number] Nhi Shetty RDN [address] [facility] [place] [id number] 10/19/2023 11:00 AM EDT Home Visit [facility] Integration [address] [place] [address] Gavi Apple, Community Health Tour Guide [address] [place] [address] 11/09/2023 11:30 AM EDT [facility] [address] [place] [address] Lucia Echevarria, RN [address] [place] [address] Health Maintenance Due Date Last Done Comments [...] filedocumented as of this encounter Care Teams Continuous Miner Operator Helper Relationship Specialty Start Date End Date Liyah Oseguera MD [address] [facility] [place] [address] PCP - General Internal Medicine 03/25/17 documented as of this encounter
--- OUTSIDE RECORDS SUMMARY | 2024-01-06 22:43 | External Medical Summary | Summary of Care ---
Author Name Unknown Organization [facility] Address [address] [place] [address] Phone [phone] Care Team Providers Care Cone Examiner Name Role Phone Liyah Oseguera MD Primary Care Provider [phone] Reason for Visit * Reason Onset Date Comments Diabetes Follow-Up 09/06/2023 Encounter Details Date Type Department Care Team (Late st Contact Info) Description 09/06/2023 Telephone [facility], [facility] [address] [place] [address] Nhi Shetty, RDN [address] [place] [address] Diabetes Follow-Up Allergies No known active allergiesdocumented as of this encounter (statuses as of 10/05/2023) Medications Medication Sig Dispensed Refills Start Date [...] 3 Each 11 03/14/2023 Active Dexcom G7 Magnet Placer DeviceIndications:T ype 2 diabetes mellitus with hemoglobin [...] hemoglobin A1c goal of less than 7.0% ([facility]) Take 2 Tablets by mouth in the morning and 2 Tablets before bedtime. 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 0 to 44.9 in adult 11/08/2017 12/20/2017 Overview: Per Obesity protocol #1 documented as of this encounter (statuses as of 10/05/2023) Immunizations Name Administration Dates Next Due Pneumococcal Conjugate Vacci ne, 20-valent ([id number]) 02/24/2023 Pneumococcal Polysaccharide PPV23 (Pneumovax) 05/04/2015 Seasonal [...] Telephone Encounter - Jeremi Caldwell OSA - 10/05/2023 2:31 PM EDT Letter sent 10/04 * Telephone Encounter - Jeremi Caldwell OSA - 10/04/2023 10:52 AM EDT LMOM 10/03 * Telephone Encounter - Radha Paulson OSA - 09/26/2023 12:46 PM EDT LMOM. 09/26/2023 * Telephone Encounter - Idalia Hill saw cleaner - 09/06/2023 3:41 PM EDT Spoke to pt to schedule his [facility] diabetes mgmt appt and he said he was not interested in scheduling his appt. Thank you, Idalia Hill Pastrycook [facility]ized [facility] Pharmacy Services 09/06/2023,3:42 PM * Telephone Encounter - Tasneem Ramos [facility] - 09/06/2023 3:08 PM EDT Scheduling- please schedule patient for a NEW DM appointment at any of the local [facility] clinics ([facility], [facility]) whichever is most convenient for patient. Thanks, Tasneem Ramos, PharmD, BCACP Clinical Pharmacist Medication Therapy Disease Management 09/06/2023, 3:09 PM * Telephone Encounter - Nhi Shetty RDN - 09/06/2023 2:47 PM EDT [facility]GR[facility] [employer] Nutrition follow up this date. Phone call [...] does alert patient to lows. JAMES Roberson, ERICN, LDN Clinical Dietitian [facility] documented in this encounter Plan of Treatment Upcoming Encounters Date Type Department Care Team (Late st Contact Info) Description 10/18/2023 11:30 AM EDT Scheduled Telephone [facility], [facility] [address] [facility] [place] [address] Nhi Shetty RDN [address] [facility] [place] [address] 10/19/2023 11:00 AM EDT Home Visit Care Coordination and Integration [address] [place] [address] Gavi Apple, Community Health Patented Hogshead Assembler [address] [place] [address] 11/09/2023 11:30 AM EDT [facility] Visit [facility], [facility] [address] [place] [address] Lucia Echevarria, RN [address] [place] [address] Health Maintenance Due Date Last Done Comments [...] filedocumented as of this encounter Care Teams Cone Examiner Relationship Specialty Start Date End Date Liyah Oseguera MD [address] [place], [place] [address] PCP - General Internal Medicine 03/25/17 documented as of this encounter
--- OUTSIDE RECORDS SUMMARY | 2024-01-06 22:43 | External Medical Summary | Summary of Care ---
Author Name Unknown Organization [facility] Address [address] [place] [address] Phone [phone] Care Team Providers Care Car Changer Name Role Phone Liyah Dugan MD Primary Care Provider [phone] Reason for Visit * Reason Comments eRx-Medication Refill Encounter Details Date Type Department Care Team (Late st Contact Info) Description 12/26/2023 Refill General Internal Medicine [facility] [address] [facility] [place] [address] Liyah Dugan MD [address] [place] [address] Type 2 diabetes mellitus with hemoglobin A1c goal of less than 7.0% ([facility]) Allergies No known active allergiesdocumented as of [...] the morning. 90 Tablet 3 3 Active Additional Information Patient not taking.Reported on 08/01/2023 Magnesium Oxide -Mg Supplement 400 (240 Mg) MG Oral Tablet (Mag-Ox)Indicatio ns:Hypokalemia Take 1 Tablet by mouth in the morning. In the morning.. 90 Tablet 3 3 Active Folic Acid 1 MG Oral TabletIndications :Alcohol abuse Take 1 Tablet by mouth in the morning. 90 Tablet 3 3 Active NovoLOG FlexPen 100 UNIT/ML Subcutaneous [...] E 11.9 300 Strip 3 3 Active Dexcom G7 SensorIndications :Type 2 diabetes mellitus with hemoglobin A1c goal of less than 7.0% (HCC) CHANGE EVERY 10 DAYS. USE TO CHECK BLOOD SUGARS CONTINUOUSLY 3 Each 11 3 Active Dexcom G7 Core Java Engineer DeviceIndications :Type 2 diabetes mellitus with hemoglobin A1c goal of less than 7.0% (HCC) USE TO CHECK BLOOD SUGARS CONTINOUSLY 1 Each 3 Active Carvedilol 3.125 MG Oral Tablet (Coreg)Indication s:HTN, goal below 140/90 Take 1 Tablet by mouth 2 times a day with morning and evening meals. 180 Tablet 3 3 Active Potassium Chloride 20 MEQ Oral PacketIndications :Hypokalemia Take 20 mEq by mouth in the morning. 90 Packet 3 4 Active DULoxetine HCl 20 MG Oral Capsule Delayed Release Particles (duloxetine)Indic ations:MAYELA (generalized anxiety disorder) Take 1 Capsule by mouth in the morning. Do not cut, crush or chew. 30 Capsule 5 4 Active metFORMIN HCl ER 500 MG Oral Tablet Extended Release 24 Hour (Glucophage XR)Indications:Ty pe 2 diabetes mellitus with hemoglobin A1c goal of less than 7.0% (HCC) Take 2 Tablets by mouth in the morning and 2 Tablets before bedtime. 360 Tablet 2 4 Active Lantus SoloStar 100 UNIT/ML Subcutaneous Solution Pen-injector (Insulin Glargine Solostar)Indicati ons:Type 2 diabetes mellitus with hemoglobin A1c goal of less than 7.0% (HCC) INJECT 20 UNITS UNDER THE SKIN IN THE MORNING. IF FASTING SUGAR IS > 125 FOR 3 DAYS THEN INCREASE BY 2 UNITS AND CONTINUE. 15 mL 4 Active Insulin Glargine Solostar 100 UNIT/ML Subcutaneous Solution Pen-injectorIndic ations:Type 2 diabetes mellitus with hemoglobin A1c goal of less than 7.0% (HCC) Inject 20 Units under the skin in the morning. If fasting sugar is > 125 for 3 days then increase by 2 units and continue. 15 mL 4 12/27/19 24 Discontinued documented as of this encounter (statuses as of 12/27/2023) Active Problems Problem Noted Date Diagnosed Date Other chronic pancreatitis 04/20/2023 Type 2 diabetes mellitus wit h hemoglobin A1c goal of less than 7.0% 02/24/2023 Last Assessment & Plan: Insulin dependent Recent referral to [facility] for management Hemoglobin AIC Results: Lab [...] 04/20/2023 Last Assessment & Plan: Managed via [facility] for wound care Acquired absence of right leg below knee 02/24/2023 03/03/2023 Hypokalemia 05/10/2022 04/20/2023 Alcohol dependence with with drawal, unspecified 03/15/2018 03/15/2018 Body mass index (BMI) of 40. 0 to 44.9 in adult 11/08/2017 12/20/2017 Overview: Per Obesity protocol #1 documented as of this encounter (statuses as of 12/27/2023) Immunizations Name Administration Dates Next Due Pneumococcal Conjugate Vacci ne, 20-valent ([id number]) 02/24/2023 Pneumococcal Polysaccharide PPV23 (Pneumovax) 05/04/2015 Seasonal [...] No 10/19/2023 Does the household have a [facility] source of income? (Household - for ages [...] encounter Miscellaneous Notes * Telephone Encounter - Ike Jamison [facility] - 12/27/2023 8:52 PM EDTSigned Prescriptions: Disp Refills Lantus SoloStar 100 UNIT/ML Subcutaneous S*15 mL 0 Sig: INJECT 20 UNITS UNDER THE SKIN IN THE MORNING. IF FASTING SUGAR IS > 125 FOR 3 DAYS THEN INCREASE BY 2 UNITS AND CONTINUE.Authorizing Provider: Rafy DUGAN User: IKE JAMISON documented in this encounter Plan of Treatment Upcoming Encounters Date Type Department Care Team (Kirk st Contact Info) Description 01/12/2024 1:00 PM EDT Home Visit [facility] Coordination [facility] Integration [address] [place] [address] Gavi Apple, Community Health Signal Worker Helper [address] [place] [address] 02/06/2024 12:30 PM EDT [facility] Visit [facility] [address] [place] [address] Lucia Echevarria RN [address] [place] [address] Health Maintenance Due Date Last Done Comments [...] Foot Exam 02/25/2024 02/24/2023 GFR 02/25/2024 02/24/2023, /06/2021, 11/13/2018, Additional history exists DTaP,Tdap,and Td Vaccines [...] (HCC) documented in this encounter Care Teams Car Changer Relationship Specialty Start Date End Date Liyah Dugan MD [address] [place] [place] [address] PCP - General Internal Medicine 03/25/17 documented as of this encounter
--- OUTSIDE RECORDS SUMMARY | 2024-01-06 22:44 | External Medical Summary | Summary of Care ---
Author Name Unknown Organization [facility] Address [address] [place] [address] Phone [phone] Care Team Providers Care Superintendent Refuse Disposal Name Role Phone Liyah Oseguera MD Primary Care Provider [phone] Reason for Visit * Reason Comments [facility]: Maintenance Encounter Details Date Type Department Care Team (Late st Contact Info) Description 07/15/2023 8:30 AM EST [facility] Visit [facility], [facility] [address] [facility] [address] Lucia Echevarria RN [address] [place] [address] Allergies No known active allergiesdocumented as of this encounter (statuses as of 07/15/2023) Medications Medication Sig Dispensed Refills Start Date [...] 3 Each 11 03/14/2023 Active Dexcom G7 Ground Host/Hostess DeviceIndications:T ype 2 diabetes mellitus with hemoglobin [...] as of this encounter (statuses as of 07/15/2023) Active Problems Problem Noted Date Diagnosed Date Other chronic pancreatitis 04/20/2023 Type 2 diabetes mellitus wit h hemoglobin A1c goal of less than 7.0% 02/24/2023 Last Assessment & Plan: Insulin dependent Recent referral to [facility] for management Hemoglobin AIC Results: Lab [...] as of this encounter (statuses as of 07/15/2023) Resolved Problems Problem Noted Date Diagnosed Date Resolved Date Acute respiratory failure with hypoxia 03/03/2023 03/03/2023 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 0 to 44.9 in adult 11/08/2017 12/20/2017 Overview: Per Obesity protocol #1 documented as of this encounter (statuses as of 07/15/2023) Immunizations Name Administration Dates Next Due Pneumococcal Conjugate Vacci ne, 20-valent ([id number]) 02/24/2023 Pneumococcal Polysaccharide PPV23 (Pneumovax) 05/04/2015 Seasonal [...] Sign Reading Time Taken Comments Blood Pressure 122/70 07/15/2023 8:51 AM EST Pulse 88 07/15/2023 8:51 AM EST Temperature 37.1 C (98.8 F) 07/15/2023 8:51 AM ES T Respiratory Rate 18 07/15/2023 8:51 AM EST Oxygen Saturation 98% 07/15/2023 8:51 AM EST Inhaled Oxygen Concentration - - Weight - - Height - - Body Mass Index - - documented in this encounter Progress Notes * Lucia Echevarria, RN - 07/15/2023 8:02 AM EST [facility] Facility Maintenance Technician Visit Date: 07/15/2023 Time: 8:02 AM Name: Umair Harrison : 1960 Current Concerns: Pt seen for return RNCM visit Using Dexcom Per 7 day summary on device, average has been 235 39% has been "very high", 28% "high", 27% "in range", 5% "low" and 1% "very low" Pt reports he did have a low reading in the 60's in the past week - this has been happening close to bedtime hours Pt reports he usually eats candy or drinks juice when he has a low reading like that Discussed eating a good snack before bedtime - peanut butter, milk, etc MTM referral was placed, has not been set up yet TE sent to have scheduled Bottle out med rec done Missing - Carvedilol, Kcl, B-1, and multivitamin [facility], [facility] K[facility] - TE sent to PCP Carvedilol will be ready for tile picker and pt will get OTC B-1 and MultiVitamin - instructions written down for pt Physical Exam: BP 122/70 | Pulse 88 | Temp 37.1 C (98.8 F) | Resp 18 | SpO2 98% [...] Cardiovascular: Negative. Gastrointestinal: Negative. Genitourinary: Negative. Musculoskeletal: Positive for arthralgias. Right bka Neurological: Negative. Psychiatric/Behavioral: Negative. Medication Reconciliation: (See medication list) Does patient take medications as ordered: Yes Patient Well Being: PHQ2/9: No questionnaires available. No change in living situation Denies falls [facility]-10 Completed this Visit: No. Routine visit and No falls since last visit Advanced Care Planning: No documentation, acp on file. Reinforcement/Education: Educated on home safety: Create a [...] and Purspose. Treatment/Plan: Continue medications as ordered Check sugars 3-4 times daily and as needed for ssxs of hyper/hypoglycemia. Fall precautions Use walker at all times Home Interventions Provided: Home Intervention: Other; evaluation Reinforced current Plan of Care, including self-management and medication regimen Patient's 'Red Flags': Blood sugar less than 70 more than once a week Dizziness/lightheaded Feeling confused or mental fogginess Patient Needs to Remember: Call [facility] at with any new or [...] visits & schedule home visit with care steamtable worker(s)as indicated. Provider is in agreement with Plan of Care: Yes Scheduled to follow up with patient in 3 weeks. Lucia Echevarria RN 07/15/2023 8:02 AM documented in this encounter Plan of Treatment Upcoming Encounters Date Type Department Care Team (Late st Contact Info) Description 08/01/2023 2:00 PM EST Home Visit [facility], [facility] [address] [place] [address] Lucia Echevarria RN [address] [place] [address] 08/09/2023 9:00 AM EST Scheduled Telephone [facility], [facility] [address] [place] [address] Nhi Shetty RDN [address] [facility] [place] [address] Health Maintenance Due Date Last Done Comments COVID-19 Vaccine (#1) 1960 Diabetic Eye Exam 1980 Cologuard 2007 Colonoscopy 2007 Colorectal Cancer Screening 2007 Fecal Occult Blood Test 2007 Sigmoidoscopy 2007 Zoster Vaccines (1 of 2) 2012 DISCUSS TOBACCO CESSATION (REFER TO SMARTSET #6343) 03/15/2019 03/15/2018 Depression Screening 06/16/2019 06/16/2018 Hepatitis B (1 of 3 - Risk 3-dose series) 2022 Albumin/Creatinine Ratio 05/10/2023 05/10/2022 HbA1c 11/02/2023 05/04/2023, 09/0 12/2022, 05/10/2022, Additional history exists Diabetic Foot Exam 02/25/2024 02/24/2023 GFR 02/25/2024 02/24/2023, 04/21, 11/13/2018, Additional history exists DTaP,Tdap,and Td Vaccines (2 - Td or Tdap) 03/25/2027 03/25/2017 Lipid Panel 05/26/2028 05/26/2023, 04/21, 10/10/2017 LUNG CANCER SCREENING - USE SMARTSET 09645 Completed 12/08/2017 Influenza Vaccine (FLU shot) Completed [...] filedocumented as of this encounter Care Teams Superintendent Refuse Disposal Relationship Specialty Start Date End Date Liyah Oseguera MD [address] [place] [address] PCP - General Internal Medicine 03/25/17 documented as of this encounter
--- OUTSIDE RECORDS SUMMARY | 2024-01-06 22:44 | External Medical Summary | Summary of Care ---
Author Name Unknown Organization [facility] Address [address] [place] [address] Phone [phone] Care Team Providers Care Sustainability Coach Name Role Phone Liyah Oseguera MD Primary Care Provider [phone] Reason for Visit * Reason Comments [facility]: Maintenance Encounter Details Date Type Department Care Team (Late st Contact Info) Description 08/01/2023 2:00 PM EST [facility] Visit [facility], [facility] [address] [facility] [address] Lucia Echevarria RN [address] [facility] [place] [address] Allergies No known active allergiesdocumented as of this encounter (statuses as of 08/01/2023) Medications Medication Sig Dispensed Refills Start Date [...] or chew. 30 Capsule 5 05/10/2022 Active Thiamine HCl 100 MG Oral Tablet [...] 3 Each 11 03/14/2023 Active Dexcom G7 Interactive Marketing Strategist DeviceIndications:T ype 2 diabetes mellitus with hemoglobin [...] the morning. 90 Packet 3 07/15/2023 Active documented as of this encounter (statuses as of 08/01/2023) Active Problems Problem Noted Date Diagnosed Date Other chronic pancreatitis 04/20/2023 Type 2 diabetes mellitus wit h hemoglobin A1c goal of less than 7.0% 02/24/2023 Last Assessment & Plan: Insulin dependent Recent referral to [facility] for management Hemoglobin AIC Results: Lab [...] as of this encounter (statuses as of 08/01/2023) Resolved Problems Problem Noted Date Diagnosed Date [...] as of this encounter (statuses as of 08/01/2023) Immunizations Name Administration Dates Next Due Pneumococcal Conjugate Vacci ne, 20-valent ([id number]) 02/24/2023 Pneumococcal Polysaccharide PPV23 (Pneumovax) 05/04/2015 Seasonal [...] Sign Reading Time Taken Comments Blood Pressure 150/88 08/01/2023 1:04 PM EST Pulse 90 08/01/2023 1:04 PM EST Temperature 36.2 C (97.2 F) 08/01/2023 1:04 PM ES T Respiratory Rate 18 08/01/2023 1:04 PM EST Oxygen Saturation 99% 08/01/2023 1:04 PM EST Inhaled Oxygen Concentration - - Weight - - Height - - Body Mass Index - - documented in this encounter Progress Notes * Lucia Echevarria, RN - 08/01/2023 12:33 PM EST [facility] Assistant Shift Supervisor Visit Date: 08/01/2023 Time: 12:33 PM Name: Umair Harrison : 1960 Current Concerns: Pt seen for return RN visit Bottles out med review done Pt still did not cook pickled meat [facility] last home visit He also was only taking Carvedilol once a day in the am - reviewed with him and he added to his pm pill boxes 14 day average per Dexcom G7 is 149 71% in range, 18% High, 7% Very High, 3% Low and 1% Very Low Pt was to have first MTM appt today but he reports he did not know about it so will not make it Called during visit and had this rescheduled to 08/11 at 2:50pm Had him write down the appt info so he would not forget Also set up [facility] transportation Physical Exam: BP 150/88 | Pulse 90 | Temp 36.2 C (97.2 F) | Resp 18 | SpO2 99% [...] Negative. Musculoskeletal: Positive for arthralgias. Right bka Skin: Negative. Psychiatric/Behavioral: Negative. Medication Reconciliation: (See medication list) Does patient take medications as ordered: No was not taking Carvedilol at correct frequency. Also not taking multivitamin and Thiamine - he states he cannot afford Patient Well Being: PHQ2/9: No questionnaires available. No change in living situation Denies falls [facility]-10 Completed this Visit: No. Routine visit and [...] Fall precautions Use walker at all times Follow up with MTM to DM management refuse collector supervisor potassium and duloxetine from [facility] Home Interventions Provided: Home Intervention: Other; Eval Consulted PCP/Specialist Reinforced current Plan of Care, including self-management and medication regimen Patient's 'Red Flags': Blood sugar less than 70 more than once a week Dizziness/lightheaded Feeling confused or mental fogginess Patient Needs to Remember: Call [facility] at with any new or [...] visits & schedule home visit with care manufacturing team member(s)as indicated. Provider is in agreement with Plan of Care: Yes Scheduled to follow up with patient in 3-4 weeks. Lucia Echevarria RN 08/01/2023 12:33 PM documented in this encounter Plan of Treatment Upcoming Encounters Date Type Department Care Team (Late st Contact Info) Description 08/09/2023 9:00 AM EST Scheduled Telephone [email or web address], [facility] [address] [facility] [place] [address] Nhi Shetty RDN [address] [facility] [place] [address] 08/11/2023 2:50 PM EST Pharmacy Pharmacy, [facility] [place] [address] [place] [address] Pharmacist1, [facility] [address] [place], [place] [address] 09/02/2023 2:30 PM EDT Home Visit [facility], [place] [facility] [address] [place] [address] Lucia Echevarria, RN [address] [place] [address] Health Maintenance Due Date Last Done Comments COVID-19 Vaccine (#1) 1960 Diabetic Eye Exam 1980 Cologuard 2007 Colonoscopy 2007 Colorectal Cancer Screening 2007 Fecal Occult Blood Test 2007 Sigmoidoscopy 2007 Zoster Vaccines (1 of 2) 2012 DISCUSS TOBACCO CESSATION (REFER TO SMARTSET #6043) 03/15/2019 03/15/2018 Depression Screening 06/16/2019 06/16/2018 Hepatitis [...] 10/10/2017 LUNG CANCER SCREENING - USE SMARTSET 28459 Completed 12/08/2017 Influenza Vaccine (FLU shot) Completed [...] filedocumented as of this encounter Care Teams Sustainability Coach Relationship Specialty Start Date End Date Liyah Oseguera MD [address] [facility] [place] [address] PCP - General Internal Medicine 03/25/17 documented as of this encounter"
--- OUTSIDE RECORDS SUMMARY | 2024-01-06 22:44 | External Medical Summary | Summary of Care ---
Author Name Unknown Organization [facility] Address [address] [place] [address] Phone [phone] Care Team Providers Care Edge Stitcher Name Role Phone Gracie Oseguera MD Primary Care Provider [phone] Reason for Visit * Reason Onset Date Comments Medication Refill 07/15/2023 Encounter Details Date Type Department Care Team (Late st Contact Info) Description 07/15/2023 Refill [facility], [facility] [address] [place] [address] Lucia Echevarria RN [address] [place] [address] Hypokalemia Allergies No known active allergiesdocumented as of this encounter (statuses as of 07/20/2023) Medications Medication Sig Dispensed Refills Start Date [...] 3 Each 11 03/14/2023 Active Dexcom G7 Router Operator Pin DeviceIndications :Type 2 diabetes mellitus with hemoglobin [...] the morning. 90 Packet 3 07/15/2023 Active Potassium Chloride 20 MEQ Oral PacketIndications :Hypokalemia Take 20 mEq by mouth in the morning. 90 Packet 3 02/25/2023 Discontinue d(Refill) documented as of this encounter (statuses as of 07/20/2023) Active Problems Problem Noted Date Diagnosed Date Other chronic pancreatitis 04/20/2023 Type 2 diabetes mellitus wit h hemoglobin A1c goal of less than 7.0% 02/24/2023 Last Assessment & Plan: Insulin dependent Recent referral to [facility] for management Hemoglobin AIC Results: Lab [...] as of this encounter (statuses as of 07/20/2023) Resolved Problems Problem Noted Date Diagnosed Date Resolved Date Acute respiratory failure with hypoxia 03/03/2023 03/03/2023 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 0 to 44.9 in adult 11/08/2017 12/20/2017 Overview: Per Obesity protocol #1 documented as of this encounter (statuses as of 07/20/2023) Immunizations Name Administration Dates Next Due Pneumococcal Conjugate Vacci ne, 20-valent ([id number]) 02/24/2023 Pneumococcal Polysaccharide PPV23 (Pneumovax) 05/04/2015 Seasonal [...] encounter Miscellaneous Notes * Telephone Encounter - Argentina Freeman, FLORA - 07/20/2023 9:32 AM EST Name: Umair Harrison Date: 07/25/2023 Status: [facility] Time: 11:00 AM Length: 40 Visit Type: HOSPITAL DISCHARGE [[id number]] Reg Status: Verified Copay: $0.00 Provider: Gracie Oseguera MD Department: GEN INT MED [facility] POD3 Additional Resources Requested: Appt Phone: Dept * Telephone Encounter - Gracie Oseguera MD - 07/15/2023 1:15 PM ESTSigned Prescriptions: Disp Refills Potassium Chloride 20 MEQ Oral Packet 90 Pac*3 Sig: Take 20 mEq by mouth in the morning. Authorizing Provider: GRACIE OSEGUERA * Telephone Encounter - Gracie Oseguera MD - 07/15/2023 1:14 PM EST Sent Needs appoint for f/u in clinic . He canceled on 124 * Telephone Encounter - Lucia Echevarria RN - 07/15/2023 9:06 AM EST Pt in need of refill of Potassium Chloride. Can you please send to [facility], [address] [place] [address]. (He recently switched pharmacies) Thank you! documented in this encounter Plan of Treatment Upcoming Encounters Date Type Department Care Team (Late st Contact Info) Description 07/25/2023 11:00 AM EST Office Visit General Internal Medicine [facility] [address] [place] [address] Gracie Oseguera MD [address] [facility] [place] [address] 08/01/2023 2:00 PM EST [facility] Visit [facility], [place] [facility] [address] [place] [address] Lucia Echevarria, RN [address] [place] [address] 08/09/2023 9:00 AM EST Scheduled Telephone [facility], [facility] [address] [facility] [place] [address] Nhi Shetty, RDN [address] [facility] [place] [address] Health Maintenance Due Date Last Done Comments COVID-19 Vaccine (#1) 1960 Diabetic Eye Exam 1980 Cologuard 2007 Colonoscopy 2007 Colorectal Cancer Screening 2007 Fecal Occult Blood Test 2007 Sigmoidoscopy 2007 Zoster Vaccines (1 of 2) 2012 DISCUSS TOBACCO CESSATION (REFER TO SMARTSET #5684) 03/15/2019 03/15/2018 Depression Screening 06/16/2019 06/16/2018 Hepatitis [...] 10/10/2017 LUNG CANCER SCREENING - USE SMARTSET 05745 Completed 12/08/2017 Influenza Vaccine (FLU shot) Completed [...] as of this encounter Visit Diagnoses Diagnosis Hypokalemia Hypopotassemia documented in this encounter Care Teams Edge Stitcher Relationship Specialty Start Date End Date Gracie Oseguera MD [address] [place] [address], [place] [address] PCP - General Internal Medicine 03/25/17 documented as of this encounter
--- OUTSIDE RECORDS SUMMARY | 2024-01-06 22:44 | External Medical Summary | Summary of Care ---
Author Name Unknown Organization [facility] Address [address] [place] [address] Phone [phone] Care Team Providers Care Wound Nurse Name Role Phone Liyah Dugan MD Primary Care Provider [phone] Reason for Visit * Reason Onset Date Comments Medication Refill 08/09/2023 Encounter Details Date Type Department Care Team (Late st Contact Info) Description 08/09/2023 Refill General Internal Medicine [facility] 200 [facility] [place] [address] Liyah Dugan MD [address] [place] [address] Type 2 diabetes mellitus with hemoglobin A1c goal of less than 7.0% ([facility]) Allergies No known active allergiesdocumented as of this encounter (statuses as of 08/09/2023) Medications Medication Sig Dispensed Refills Start Date [...] 3 Each 11 03/14/2023 Active Dexcom G7 Home School Teacher DeviceIndications :Type 2 diabetes mellitus with hemoglobin [...] before bedtime. 360 Tablet 2 08/09/2023 Active metFORMIN HCl ER 500 MG Oral Tablet Extended Release 24 Hour (Glucophage XR)Indications:Ty pe 2 diabetes mellitus with hemoglobin A1c goal of less than 7.0% (HCC) Take 2 Tablets by mouth in the morning and 2 Tablets before bedtime. 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 0 to 44.9 in adult 11/08/2017 12/20/2017 Overview: Per Obesity protocol #1 documented as of this encounter (statuses as of 08/09/2023) Immunizations Name Administration Dates Next Due Pneumococcal Conjugate Vacci ne, 20-valent ([id number]) 02/24/2023 Pneumococcal Polysaccharide PPV23 (Pneumovax) 05/04/2015 Seasonal [...] Notes * Telephone Encounter - Ike Jamison [facility] - 08/09/2023 2:24 PM ESTSigned Prescriptions: Disp Refills metFORMIN HCl ER 500 MG Oral Tablet Extend*360 Ta*2 Sig: Take 2Tablets by mouth in the morning and 2 Tablets before bedtime.Authorizing Provider: Rafy DUGAN User: IKE JAMISON * Telephone Encounter - Ike Jamison [facility] - 08/09/2023 2:23 PM EST Patient is switching pharmacies. Reissued balance of refills on current prescription(s) to [facility] Thank you, Ike Jamison [facility] Clinical Pharmacist [facility] ([facility]) (formerly Telepharmacy) 08/09/23 2:23 PM [phone] * Telephone Encounter - Nubia Chong CPhT - 08/09/2023 1:58 PM EST Patient needs HP Please reroute Rx to E [id number] [place]. Pending Prescriptions: Disp Refills metFORMIN HCl ER 500 MG Oral Tablet Exten*360 Ta*2 Sig: Take 2 Tablets by mouth in the morning and 2 Tablets before bedtime. Last Visit: 02/24/2023 (in office), Visit date not found (telemedicine) Visit date not found If no future appointments scheduled, and last appointment is greater than a year ago, please schedule patient for a follow-up appointment Last date the medication was ordered: 03/14/2023 Patient Phone Numbers Labs: Lab Results Component Value Date/Time CREAT 0.7 02/24/2023 03:17 PM CREAT 1.95 (A) 11/13/2018 12:00 AM CREAT 0.8 03/15/2018 11:31 AM POTASSIUM 4.2 02/24/2023 03:17 PM POTASSIUM 3.5 11/13/2018 12:00 AM POTASSIUM 4.1 03/15/2018 11:31 AM LDLCALC 93 05/26/2023 10:41 AM LDLCALC 130 (H) 10/10/2017 11:48 AM LDLDIRECT 101 05/10/2022 12:00 PM LDLDIRECT NOT APPLICABLE 10/10/2017 11:48 AM ALT 13 02/24/2023 03:17 PM ALT 16 03/15/2018 11:31 AM HGBA1C 6.5 (H) 05/04/2023 10:30 AM HGBA1C 6.5 (H) 03/15/2018 11:31 AM documented in this encounter Plan of Treatment Upcoming Encounters Date Type Department Care Team (Late st Contact Info) Description 08/11/2023 2:50 PM EST [facility] [address] [facility]1, [facility] [address] [facility] [address] 09/02/2023 2:30 PM EDT [facility], [facility] 132 [facility] [place] [address] Lucia Echevarria RN 132 [facility] [place] [address] 09/06/2023 11:00 AM EDT Scheduled Telephone [facility], [facility] [address] [facility] [place] [address] Nih Shetty RDN [address] [place] [address] Health Maintenance Due Date Last Done Comments Diabetic Eye Exam 1980 Cologuard 2007 Colonoscopy 2007 Colorectal Cancer Screening 2007 Fecal Occult Blood Test 2007 Sigmoidoscopy 2007 Zoster Vaccines (1 of 2) 2012 DISCUSS TOBACCO CESSATION (REFER TO SMARTSET #3291) 03/15/2019 03/15/2018 Depression Screening 06/16/2019 06/16/2018 COVID-19 Vaccine ( season) 2023 Albumin/Creatinine Ratio 05/10/2023 05/10/2022 HbA1c 11/02/2023 05/04/2023, 09/0 12/2022, 05/10/2022, Additional history exists Diabetic Foot Exam 02/25/2024 02/24/2023 GFR 02/25/2024 02/24/2023, 04/21, 11/13/2018, Additional history exists DTaP,Tdap,and Td Vaccines (2 - Td or Tdap) 03/25/2027 03/25/2017 Lipid Panel 05/26/2028 05/26/2023, 04/21, 10/10/2017 LUNG CANCER SCREENING - USE SMARTSET 86420 Completed 12/08/2017 Influenza Vaccine (FLU shot) Completed [...] (HCC) documented in this encounter Care Teams Wound Nurse Relationship Specialty Start Date End Date Liyah Dugan MD [address] [place] [address] PCP - General Internal Medicine 03/25/17 documented as of this encounter
--- OUTSIDE RECORDS SUMMARY | 2024-01-06 22:44 | External Medical Summary | Summary of Care ---
Author Name Unknown Organization [facility] Address [address] [place] [address] Phone [phone] Care Team Providers Care Cloth Worker Name Role Phone Liyah Oseguera MD Primary Care Provider [phone] Reason for Visit * Reason Onset Date Comments Diabetes Follow-Up 09/06/2023 Encounter Details Date Type Department Care Team (Late st Contact Info) Description 09/06/2023 Telephone [facility] [address] [place] [address] Nhi Shetty, RDN [address] [place] [address] Diabetes Follow-Up Allergies No known active allergiesdocumented as of this encounter (statuses as of 09/06/2023) Medications Medication Sig Dispensed Refills Start Date [...] 3 Each 11 03/14/2023 Active Dexcom G7 Courtroom Deputy DeviceIndications:T ype 2 diabetes mellitus with hemoglobin [...] A1c goal of less than 7.0% ([facility]) Take 2 Tablets by mouth in the morning and 2 Tablets before bedtime. 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 for wound care Acquired absence of right leg below knee 02/24/2023 03/03/2023 Hypokalemia 05/10/2022 04/20/2023 Alcohol dependence with with drawal, unspecified 03/15/2018 03/15/2018 Body mass index (BMI) of 40. 0 to 44.9 in adult 11/08/2017 12/20/2017 Overview: Per Obesity protocol #1 documented as of this encounter (statuses as of 09/06/2023) Immunizations Name Administration Dates Next Due Pneumococcal Conjugate Vacci ne, 20-valent ([id number]) 02/24/2023 Pneumococcal Polysaccharide PPV23 (Pneumovax) 05/04/2015 Seasonal [...] Notes * Telephone Encounter - Tasneem Ramos [facility] - 09/06/2023 3:08 PM EDT Scheduling- please schedule patient for a NEW DM appointment at any of the local [facility] clinics ([facility], [facility]) whichever is most convenient for patient. Thanks, Tasneem Ramos, PharmD, BCACP Clinical Pharmacist Medication Therapy Disease Management 09/06/2023, 3:09 PM * Telephone Encounter - Nhi Shetty RDN - 09/06/2023 2:47 PM EDT NUTRITION PROGRESS NOTE - [facility] Nutrition follow up this date. Phone call [...] lows. JAMES Roberson, RDN, LDN Clinical Dietitian [facility] documented in this encounter Plan of Treatment Upcoming Encounters Date Type Department Care Team (Late st Contact Info) Description 09/28/2023 2:00 PM EDT Home Visit [facility] [place], [facility] [address] [address] Lucia Echevarria RN [address] [address] 10/18/2023 11:30 AM EDT Scheduled Telephone [facility], [facility] [address] [place] [address] Nhi Shetty, RDN [address] [place] [address] Health Maintenance Due Date Last Done Comments [...] 10/10/2017 LUNG CANCER SCREENING - USE SMARTSET [id number] Completed 12/08/2017 Influenza Vaccine (FLU shot) Completed [...] filedocumented as of this encounter Care Teams Cloth Worker Relationship Specialty Start Date End Date Liyah Oseguera MD [address] [place] [address], [place] [address] PCP - General Internal Medicine 03/25/17 documented as of this encounter
--- OUTSIDE RECORDS SUMMARY | 2024-01-06 22:44 | External Medical Summary | Summary of Care ---
Author Name Unknown Organization [facility] Address [address] [place] [address] Phone [phone] Care Team Providers Care Guard Supervisor Name Role Phone Liyah Oseguera MD Primary Care Provider [phone] Reason for Visit * Reason Onset Date Comments Medical Nutrition Therapy 09/06/2023 Encounter Details Date Type Department Care Team (Latest Contact Info) Description 09/06/2023 11:00 AM EDT Scheduled Telephone [facility], [facility] [address] [facility] [place] [address] Nhi Shetty, RDN [address] [place] [facility] [place] [address] Type 2 diabetes mellitus with hemoglobin A1c goal of less than 7.0% ([facility])* Allergies No known active allergiesdocumented as of this encounter (statuses as of 09/10/2023) Medications Medication Sig Dispensed Refills Start Date [...] 3 Each 11 03/14/2023 Active Dexcom G7 Superintendent Concrete Mixing Plant DeviceIndications:T ype 2 diabetes mellitus with hemoglobin [...] as of this encounter (statuses as of 09/10/2023) Active Problems Problem Noted Date Diagnosed Date Other chronic pancreatitis 04/20/2023 Type 2 diabetes mellitus wit h hemoglobin A1c goal of less than 7.0% 02/24/2023 Last Assessment & Plan: Insulin dependent Recent referral to [facility] for management Hemoglobin AIC Results: Lab [...] as of this encounter (statuses as of 09/10/2023) Resolved Problems Problem Noted Date Diagnosed Date Resolved Date Acute respiratory failure with hypoxia 03/03/2023 03/03/2023 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 0 to 44.9 in adult 11/08/2017 12/20/2017 Overview: Per Obesity protocol #1 documented as of this encounter (statuses as of 09/10/2023) Immunizations Name Administration Dates Next Due Pneumococcal Conjugate Vacci ne, 20-valent ([id number]) 02/24/2023 Pneumococcal Polysaccharide PPV23 (Pneumovax) 05/04/2015 Seasonal [...] Encounter - Nhi Shetty RDN - 09/06/2023 2:06 PM EDT NUTRITION FOLLOW-UP NOTE - OUTPATIENT [facility] Name: Umair Harrison Location: [facility], [facility] Date: 09/06/2023 Time: 2:07 PM Patient was identified by name and date. After connecting to the patient via telephone, the patient was identified by name and date of . Patient was then informed that this was a telephone call only visit. The patient agreed to participate. Visit Disposition: Routine follow-up Total call duration was 20 minutes. Reason for Nutrition Follow-up: Type 2 Diabetes NUTRITION ASSESSMENT: Client History 63 year old male enrolled [facility] referred to Registered Dietitian for Type 2 DM. PMH noted below. Called for nutrition follow up this date. Last nutrition follow up 08/09/2023. MTM appointment on 08/11/2023. RDN reminded of patient at prior phone call. Appears patient no showed appointment and has been d/c from [facility]. Patient reports "he could not make it" Support System: Self Patient goes to grocery store 3 x per week, will cook. Denies food insecurity. Barriers to Learning: None Special Education Needs: None Physical Activity: Light.BKA (left). Has prothesis Walks to grocery store. Food/Nutrition-Related History Appetite reported as Fair per patient Breakfast cereal: cheerios (plain) 1 bowl; 2 % milk Lunch: cheeseburger on bun (1) with lithuanian fries (small)(fast food), 4 oz OJ Dinner: Chicken (drum sticks) deep fried 2, mixed vegetable, sometimes starch. Snack: PBJ sandwich. (Regular jelly) Beverages (Juice 1 - 2 x per day ~ 8 oz), water, Alcohol "sometimes" beer, wine, liquor. 1 drink 1 x per week. Reports he has has low BG due to alcohol intake. Diet Recall/Food Logs Indicate: AREAS FOR IMPROVEMENT: Excess intake of sweetened beverages Inconsistent carbohydrate intake Excessive alcohol intake Food and Nutrient Intake and other pertinent information: As noted above. Medications Changes/Updates: metFORMIN HCl ER 500 MG Oral Tablet Extended Release 24 Hour (Glucophage XR) Take 2 Tablets by mouth in the morning and 2 Tablets before bedtime. Reports morning and dinner time. Insulin Glargine Solostar 100 UNIT/ML Subcutaneous Solution Pen-injector Inject 20 Units under the skin in the morning. If fasting sugar is > 125 for 3 days then increase by 2 units and continue. NovoLOG FlexPen 100 UNIT/ML Subcutaneous Solution Pen-injector (insulin aspart) Take 4 units beforenormal meals and 2 units with snack Taking 5 units at meals, 2 units with snack. Patient reports he remembers to take medication overall. Nutrition-Focused Physical Findings Full nutrition focused physical exam not able to be conducted: Telephonic nutrition assessment. BKA (left). Has prothesis. Denies wound Anthropometric Measurements Current Weight: 175 lbs - last month per patient. Wt Readings from Last 1 Encounters: 02/24/23 73.4 kg (161 lb 14.4 oz) Wt Readings from Last 4 Encounters: 02/24/23 73.4 kg (161 lb 14.4 oz) 05/10/22 80.3 kg (177 lb 1.6 oz) 06/16/18 101.6 kg (224 lb) 03/15/18 104.8 kg (231 lb) Weight Change: Per reported weight weight gain over ~ 5 months. Unable to verify in person weight this date. BMI Readings from Last 1 Encounters: 02/24/23 24.54 kg/m Biochemical Data, Medical Tests, and Procedures Hemoglobin AIC Results: Lab Results Component Value Date/Time HEMOGLOBIN A1C - [facility] 6.5 (H) 05/04/2023 10:30 AM HEMOGLOBIN A1C - [facility] 17.2 (H) 02/24/2023 03:17 PM HEMOGLOBIN A1C - [facility] 9.5 (H) 05/10/2022 12:00 PM HEMOGLOBIN A1C - [facility] 6.5 (H) 03/15/2018 11:31 AM Dexcom Average 150 mg/dL per patient Lowest per patient 55 Highest 250 Low BG 1 -2 x per week. During the night. Fasting BG reported ~ 115. Dexcom does alert patient to lows. Previous Nutrition Diagnosis: Food and nutrition-related knowledge deficit related to Lack of exposure to nutritional management of DM as evidenced by Reported diet and/or activity recall, New diagnosis, labs, patient interview Progress towards goals: Add HS snack with source of protein and carbohydrate Meeting Balanced meals (plate method) ; resent; plans to use whole wheat bread as he likes sandwiches. MEETING Avoid excessive concentrated sweets. Improvement CURRENT NUTRITION DIAGNOSIS Undesirable food choices related to excessive alcohol intake as evidenced by patient interview, report of known episodes of hypoglycemia with alcohol intake. NUTRITION INTERVENTION: FOOD AND/OR NUTRIENT DELIVERY Meals Snacks DM and alcohol NUTRITION EDUCATION Comprehensive nutrition education NUTRITION COUNSELING Strategies COORDINATION OF NUTRITION CARE Nutrition Prescription: Diet: Consistent Carbohydrate Est. Nutritional Needs: Per AIBW (weight & BKA) = 65.6kg Daily Calorie Needs: 1640 - 1968 Kcals (25 - 30 kcals/kg/bw) Daily Protein Needs: 66 - 79 Grams protein (1 - 1.2g/kg.bw) Current Goals: Continue with HS snack Plate method, source of carbohydrates at dinner (1/4 of plate) Highly advised to avoid alcohol consumption as patient reports episodes of hypoglycemia related to ETOH intake. Dietitian Action: Reviewed risks of hypoglycemia with ETOH intake. Reviewed moderation (2 drinks for men) and consumed with meal. If patient is consuming more than this or has difficulty controlling ETOH intake encouraged him to speak with PCP regarding. At this time patient admitted to 1 alcoholic beverage 1 x per week. Recommendations to Ordering Provider: See phone encounter to care team. NUTRITION MONITORING AND EVALUATION: The following will be monitored and evaluated at the next visit: Monitor weight. Monitor labs. Review food logs. Monitor goals and progress. Plan: Patient scheduled to return in 4 - 6 weeks ; dietitian phone # given for future reference. 15 minutes Medical Nutrition Therapy Time In: 1417 (09/06/23 1417) Time Out: 1437 (09/06/23 1437) 15 min (8-22 min) 30 min (23-37 min) 45 min (38-52 min) 60 min (53-67 min) 75 min (68-82 min) 90 min (83-97 min) 105 min (98-113 min) Nhi Shetty RDN [facility], [facility] documented in this encounter Plan of Treatment Upcoming Encounters Date Type Department Care Team (Late st Contact Info) Description 09/28/2023 2:00 PM EDT [facility], [place] [facility] [address] [place] [address] Lucia Echevarria, RN [address] [place] [address] 10/18/2023 11:30 AM EDT Scheduled Telephone [facility], [facility] [address] [facility] [place] [address] Nhi Shetty, RDN [address] [facility] [place] [address] Health Maintenance Due Date Last Done Comments [...] 10/10/2017 LUNG CANCER SCREENING - USE SMARTSET [id number] Completed 12/08/2017 Influenza Vaccine (FLU shot) Completed [...] Primary documented in this encounter Care Teams Guard Supervisor Relationship Specialty Start Date End Date Liyah Oseguera MD [address] [facility] [place] [address] PCP - General Internal Medicine 03/25/17 documented as of this encounter
--- OUTSIDE RECORDS SUMMARY | 2024-01-06 22:44 | External Medical Summary | Summary of Care ---
Author Name Unknown Organization [facility] Address [address] [place] [address] Phone [phone] Care Team Providers Care Supervisor Quality Control Name Role Phone Liyah Oseguera MD Primary Care Provider [phone] Reason for Visit * Reason Onset Date Comments Referral 08/12/2023 MTD d/c (DM) Encounter Details Date Type Department Care Team (Late st Contact Info) Description 08/12/2023 Telephone Pharmacy Call Center [address] [place] [address] Pharmacist1, [facility] [address] [place] [address] Referral ([facility] d/c (DM)) Allergies No known active allergiesdocumented as of this encounter (statuses as of 08/12/2023) Medications Medication Sig Dispensed Refills Start Date [...] with flexpen 100 Each 3 03/03/2023 Active OneToForter Verio In Vitro Strip (Glucose Blood)Indications:T ype [...] 3 Each 11 03/14/2023 Active Dexcom G7 Cardiothoracic Surgeon DeviceIndications:T ype 2 diabetes mellitus with hemoglobin [...] as of this encounter (statuses as of 08/12/2023) Active Problems Problem Noted Date Diagnosed Date Other chronic pancreatitis 04/20/2023 Type 2 diabetes mellitus wit h hemoglobin A1c goal of less than 7.0% 02/24/2023 Last Assessment & Plan: Insulin dependent Recent referral to [facility] for management Hemoglobin AIC Results: [...] as of this encounter (statuses as of 08/12/2023) Resolved Problems Problem Noted Date Diagnosed Date Resolved Date Acute respiratory failure with hypoxia 03/03/2023 03/03/2023 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 0 to 44.9 in adult 11/08/2017 12/20/2017 Overview: Per Obesity protocol #1 documented as of this encounter (statuses as of 08/12/2023) Immunizations Name Administration Dates Next Due Pneumococcal Conjugate Vacci ne, 20-valent ([id number]) 02/24/2023 Pneumococcal Polysaccharide PPV23 (Pneumovax) 05/04/2015 Seasonal [...] Miscellaneous Notes * Telephone Encounter - Lizbeth Villalpando, golf superintendent - 08/12/2023 11:54 AM EST Umair has had 3 consecutive no show/cancelled appointments for diabetes management. Will discharge from clinic at this time due to noncompliance. Thank you, Lizbeth Villalpando Testing Engineer [facility] 08/12/2023,11:55 AM documented in this encounter Plan of Treatment Upcoming Encounters Date Type Department Care Team (Late st Contact Info) Description 09/02/2023 2:30 PM EDT Home [facility], [place] [facility] [address] [place] [address] Lucia Echevarria, RN [address] [place] [address] 09/06/2023 11:00 AM EDT Scheduled Telephone [facility], [facility] [address] [facility] [place] [address] Nhi Shetty, RDN [address] [place] [address] Health Maintenance Due Date Last Done Comments [...] 10/10/2017 LUNG CANCER SCREENING - USE SMARTSET [id number] Completed 12/08/2017 Influenza Vaccine (FLU shot) Completed [...] as of this encounter Care Teams Supervisor Quality Control Relationship Specialty Start Date End Date Liyah Oseguera MD [address] [place] [address] PCP - General Internal Medicine 03/25/17 documented as of this encounter
--- OUTSIDE RECORDS SUMMARY | 2024-01-06 22:44 | External Medical Summary | Summary of Care ---
Author Name Unknown Organization [facility] Address [address] [place] [address] Phone [phone] Care Team Providers Care System Integration Engineer Name Role Phone Liyah Oseguera MD Primary Care Provider [phone] Reason for Visit * Reason Onset Date Comments Diabetes Follow-Up 09/06/2023 Encounter Details Date Type Department Care Team (Late st Contact Info) Description 09/06/2023 Telephone [facility], [facility] [address] [place] [address] Nhi Shetty, RDN [address] [place] [address] Diabetes Follow-Up Allergies No known active allergiesdocumented [...] 3 Each 11 03/14/2023 Active Dexcom G7 Shake Packer DeviceIndications:T ype 2 diabetes mellitus with hemoglobin [...] of less than 7.0% ([facility]) Take 2 Tablets by mouth in [...] 04/20/2023 Last Assessment & Plan: Managed via [facility] for wound care Acquired absence of right leg below knee 02/24/2023 03/03/2023 Hypokalemia 05/10/2022 04/20/2023 Alcohol dependence with with drawal, unspecified 03/15/2018 03/15/2018 Body mass index (BMI) of 40. 0 to 44.9 in adult 11/08/2017 12/20/2017 Overview: Per Obesity protocol #1 documented as of this encounter (statuses as of 09/06/2023) Immunizations Name Administration Dates Next Due Pneumococcal Conjugate Vacci ne, 20-valent ([id number]) 02/24/2023 Pneumococcal Polysaccharide PPV23 (Pneumovax) 05/04/2015 Seasonal [...] Notes * Telephone Encounter - Tasneem Ramos [facility] - 09/06/2023 3:08 PM EDT Scheduling- please schedule patient for a NEW DM appointment at any of the local [facility] clinics ([facility], [facility]) whichever is most convenient for patient. Thanks, Tasneem Ramos, PharmD, BCACP Clinical Pharmacist Medication Therapy Disease Management 09/06/2023, 3:09 PM * Telephone Encounter - Nhi Shetty RDN - 09/06/2023 2:47 PM EDT NUTRITION PROGRESS NOTE - [facility] Nutrition follow up this date. [...] 2:00 PM EDT [facility] Visit [facility] [place], [facility] [address] [address] Lucia Ehcevarria RN [address] [address] [address] 10/18/2023 11:30 AM EDT Scheduled Telephone [facility], [facility] [address] [place] [place] [address] Nhi Shetty, RDN [address] [place] [address] Health Maintenance Due Date Last Done Comments [...] 10/10/2017 LUNG CANCER SCREENING - USE SMARTSET [id number] Completed 12/08/2017 Influenza Vaccine (FLU shot) Completed [...] filedocumented as of this encounter Care Teams System Integration Engineer Relationship Specialty Start Date End Date Liyah Oseguera MD [address] [place] [address], [place] [address] PCP - General Internal Medicine 03/25/17 documented as of this encounter
--- OUTSIDE RECORDS SUMMARY | 2024-01-06 22:44 | External Medical Summary | Summary of Care ---
Author Name Unknown Organization [facility] Address [address] [place] [address] Phone [phone] Care Team Providers Care Timber Skidder Name Role Phone Liyah Oseguera MD Primary Care Provider [phone] Reason for Visit * Reason Onset Date Comments [facility]: Maintenance 07/15/2023 Encounter Details Date Type Department Care Team (Late st Contact Info) Description 07/15/2023 Telephone [facility], [facility] [address] [facility] [address] Lucia Echevarria RN [address] [place] [address] [facility]: Maintenance Allergies No known [...] 3 Each 11 03/14/2023 Active Dexcom G7 Transit Man DeviceIndications:T ype 2 diabetes mellitus with hemoglobin [...] Plan: Insulin dependent Recent referral to [facility] for management Hemoglobin AIC Results: Lab [...] 04/20/2023 Last Assessment & Plan: Managed via [facility] for wound care Acquired absence of right leg below knee 02/24/2023 03/03/2023 Hypokalemia 05/10/2022 04/20/2023 Alcohol dependence with with drawal, unspecified 03/15/2018 03/15/2018 Body mass index (BMI) of 40. 0 to 44.9 in adult 11/08/2017 12/20/2017 Overview: Per Obesity protocol #1 documented as of this encounter (statuses as of 07/15/2023) Immunizations Name Administration Dates Next Due Pneumococcal Conjugate Vacci ne, 20-valent ([id number]) 02/24/2023 Pneumococcal Polysaccharide PPV23 (Pneumovax) 05/04/2015 Seasonal [...] encounter Miscellaneous Notes * Telephone Encounter - Scott Rosa RPh - 07/15/2023 9:34 AM EST MTM will call for appointment. Scott Jarrett RPh, [facility] Clinical Pharmacist Medication Therapy Management Clinic 07/15/2023, 9:35 AM * Telephone Encounter - Lucia Echevarria RN - 07/15/2023 9:12 AM EST Please contact pt to set up new appt with [facility] clinic for diabetes management. Thank you. documented in this encounter Plan of Treatment Upcoming Encounters Date Type Department Care Team (Late st Contact Info) Description 07/22/2023 3:00 PM EST Pharmacy Pharmacy, [facility] [address] [place] [address] Pharmacist1, [facility] [address] [facility] [place] [address] 08/01/2023 2:00 PM EST [facility] Visit [facility], [facility] [address] [place] [address] Lucia Echevarria RN [address] [place] [address] 08/09/2023 9:00 AM EST Scheduled Telephone [facility], [facility] [address] [facility] [place] [address] Nhi Shetty RDN [address] [facility] [place] [address] Health Maintenance Due Date Last Done Comments [...] 10/10/2017 LUNG CANCER SCREENING - USE SMARTSET [id number] Completed 12/08/2017 Influenza Vaccine (FLU shot) Completed [...] filedocumented as of this encounter Care Teams Timber Skidder Relationship Specialty Start Date End Date Liyah Oseguera MD [address] [place] [address] PCP - General Internal Medicine 03/25/17 documented as of this encounter
--- OUTSIDE RECORDS SUMMARY | 2024-01-06 22:44 | External Medical Summary | Summary of Care ---
Author Name Unknown Organization [facility] Address [address] [place] [address] Phone [phone] Care Team Providers Care Labor Gang Supervisor Name Role Phone Liyah Oseguera MD Primary Care Provider [phone] Reason for Visit * Reason Onset Date Comments Medical Nutrition Therapy 08/09/2023 Encounter Details Date Type Department Care Team (Latest Contact Info) Description 08/09/2023 9:00 AM EST Scheduled Telephone [facility] [address] [facility] [address] Nhi Shetty, RDN [address] [facility] [address] Type 2 diabetes mellitus with hemoglobin A1c goal of less than 7.0% ([facility])* Allergies No known active allergiesdocumented as of [...] 3 Each 11 03/14/2023 Active Dexcom G7 Hooker Laster DeviceIndications:T ype 2 diabetes mellitus with hemoglobin [...] or chew. 30 Capsule 5 08/01/2023 Active documented as of this encounter (statuses as of 08/09/2023) Active Problems Problem Noted Date Diagnosed Date Other chronic pancreatitis 04/20/2023 Type 2 diabetes mellitus wit h hemoglobin A1c goal of less than 7.0% 02/24/2023 Last Assessment & Plan: Insulin dependent Recent referral to [facility] for management Hemoglobin AIC Results: [...] Last Assessment & Plan: Managed via [facility] for wound care Acquired absence of right leg below knee 02/24/2023 03/03/2023 Hypokalemia 05/10/2022 04/20/2023 Alcohol dependence with with drawal, unspecified 03/15/2018 03/15/2018 Body mass index (BMI) of 40. 0 to 44.9 in adult 11/08/2017 12/20/2017 Overview: Per Obesity protocol #1 documented as of this encounter (statuses as of 08/09/2023) Immunizations Name Administration Dates Next Due Pneumococcal Conjugate Vacci ne, 20-valent ([id number]) 02/24/2023 Pneumococcal Polysaccharide PPV23 (Pneumovax) 05/04/2015 Seasonal [...] Telephone Encounter - Nhi Shetty RDN - 08/09/2023 10:31 AM EST NUTRITION PROGRESS NOTE - [facility] HOME TELEPHONIC [facility] Patient Phone Numbers: [phone] Mobile Call placed to pt as follow-up. Last nutrition follow 07/04/2023. Reason for Nutrition Follow-up: Type 2 Diabetes. CM RN home visit on 08/01/2023 notes "14 day average per Dexcom G7 is 149 71% in range, 18% High, 7% Very High, 3% Low and 1% Very Low". MTM appointment scheduled 08/11/2023.Reminded patient of this appointment during phone call. Patient is aware. Reports eating cereal for breakfast, Wheels on meals for lunch, and tuna sandwich at dinner (2 sandwiches), HS snack peanut butter and jelly sandwich (whole). Patient reports issues related to diet information previously provided. Blood glucose log book. Plan your portions plate matte (patient does not think he received) Will resend. Wt Readings from Last 3 Encounters: 02/24/23 73.4 kg (161 lb 14.4 oz) 05/10/22 80.3 kg (177 lb 1.6 oz) 06/16/18 101.6 kg (224 lb) Previous Nutrition Goals: Ongoing Add HS snack with source of protein and carbohydrate - Patient reports eating whole PB and J sandwich will take 2 units with snack. Reports low BG at times during the night. Balanced meals (plate method) - Will resend. Encouraged this date for patient to use whole wheat bread as he does consume sandwiches on regular basis. Patient agreed to do so. Avoid excessive concentrated sweets. Denies sweetened beverages. Unclear consumption of baked goods, cakes, cookies, candies, etc. Patient did not answer when asked. Reinforced nutrition goals. Encouraged continued progress towards goals Follow up as scheduled. Encouraged pt to contact [facility] at [phone] for any non-emergent changes/concerns. JAMES Roberson, L[place], LDN Clinical Dietitian [facility] documented in this encounter Plan of Treatment Upcoming Encounters Date Type Department Care Team (Late st Contact Info) Description 08/11/2023 2:50 PM EST Office Visit Pharmacy, Armin Wade [address] [place] [address] Pharmacist1, [facility] [address] [place] [address] 09/02/2023 2:30 PM EDT Home Visit [facility], [place] [facility] [address] [place] [address] Lucai Echevarria, RN [address] [place] [address] 09/06/2023 11:00 AM EDT Scheduled Telephone [facility] [address] [facility] [place] [address] Nhi Shetty, [place] [address] [facility] [address] [place] [address] Health Maintenance Due Date Last Done Comments [...] 10/10/2017 LUNG CANCER SCREENING - USE SMARTSET 30356 Completed 12/08/2017 Influenza Vaccine (FLU shot) Completed [...] Primary documented in this encounter Care Teams Labor Gang Supervisor Relationship Specialty Start Date End Date Liyah Oseguera MD [address] [facility] [place] [address] PCP - General Internal Medicine 03/25/17 documented as of this encounter
--- OUTSIDE RECORDS SUMMARY | 2024-01-06 22:44 | External Medical Summary | Summary of Care ---
Author Name Unknown Organization [facility] Address [address] [place] [address] Phone [phone] Care Team Providers Care Lumber Kiln Operator Name Role Phone Liyah Oseguera MD Primary Care Provider [phone] Reason for Visit * Reason Onset Date Comments Diabetes Follow-Up 09/06/2023 Encounter Details Date Type Department Care Team (Late st Contact Info) Description 09/06/2023 Telephone [facility], [facility] [address] [place] [address] Nhi Shetty, RDN [address] [place] [address] Diabetes Follow-Up Allergies No known active allergiesdocumented [...] 3 Each 11 03/14/2023 Active Dexcom G7 Primer Inserting Machine Adjuster DeviceIndications:T ype 2 diabetes mellitus with hemoglobin [...] less than 7.0% ([facility]) Take 2 Tablets by mouth in the morning and 2 Tablets before bedtime. 360 Tablet 2 08/09/2023 Active documented as of this encounter (statuses as of 09/06/2023) Active Problems Problem Noted Date Diagnosed Date Other chronic pancreatitis 04/20/2023 Type 2 diabetes mellitus wit h hemoglobin A1c goal of less than 7.0% 02/24/2023 Last Assessment & Plan: Insulin dependent Recent referral to [facility] for management Hemoglobin AIC Results: [...] 04/20/2023 Last Assessment & Plan: Managed via [facility] for wound care Acquired absence of right leg below knee 02/24/2023 03/03/2023 Hypokalemia 05/10/2022 04/20/2023 Alcohol dependence with with drawal, unspecified 03/15/2018 03/15/2018 Body mass index (BMI) of 40. 0 to 44.9 in adult 11/08/2017 12/20/2017 Overview: Per Obesity protocol #1 documented as of this encounter (statuses as of 09/06/2023) Immunizations Name Administration Dates Next Due Pneumococcal Conjugate Vacci ne, 20-valent ([id number]) 02/24/2023 Pneumococcal Polysaccharide PPV23 (Pneumovax) 05/04/2015 Seasonal [...] encounter Miscellaneous Notes * Telephone Encounter - Idalia Hill film writer - 09/06/2023 3:41 PM EDT Spoke to pt to schedule his [place] diabetes mgmt appt and he said he was not interested in scheduling his appt. Thank you, Idalia Hill Leadership Development Instructor [facility] 09/06/2023,3:42 PM * Telephone Encounter - Tasneem Ramos RP - 09/06/2023 3:08 PM EDT Scheduling- please schedule patient for a NEW DM appointment at any of the local [facility] clinics ([facility], [facility]) whichever is most convenient for patient. Thanks, Tasneem Ramos, Karthikeyan, BCACP Clinical Pharmacist Medication Therapy Disease Management 09/06/2023, 3:09 PM * Telephone Encounter - Nhi Shetty RDN - 09/06/2023 2:47 PM EDT NUTRITION PROGRESS NOTE - [facility] Nutrition follow up this date. [...] I encouraged him to become re-engaged with [facility]. He did agree to this. Is consuming [...] lows. JAMES Roberson, RDN, LDN Clinical Dietitian [facility] documented in this encounter Plan of Treatment Upcoming Encounters Date Type Department Care Team (Late st Contact Info) Description 09/28/2023 2:00 PM EDT Home Visit [facility] [place] [facility] [address] [place] [address] Lucia Echevarria, RN [address] [place] [address] 10/18/2023 11:30 AM EDT Scheduled Telephone [facility], [facility] [address] [facility] [address] Nhi Shetty RDN [address] [facility] [place] [address] Health Maintenance Due Date Last Done Comments [...] 10/10/2017 LUNG CANCER SCREENING - USE SMARTSET 38392 Completed 12/08/2017 Influenza Vaccine (FLU shot) Completed [...] filedocumented as of this encounter Care Teams Lumber Kiln Operator Relationship Specialty Start Date End Date Liyah Oseguera MD [address] [place] [address] [place] [address] PCP - General Internal Medicine 03/25/17 documented as of this encounter
--- OUTSIDE RECORDS SUMMARY | 2024-01-06 22:44 | External Medical Summary | Summary of Care ---
Author Name Unknown Organization [facility] Address [address] [place] [address] Phone [phone] Care Team Providers Care Music Box Mechanic Name Role Phone Gracie Oseguera MD Primary Care Provider [phone] Reason for Visit * Reason Onset Date Comments Medication Refill 08/01/2023 Encounter Details Date Type Department Care Team (Late st Contact Info) Description 08/01/2023 Refill [facility], [facility] [address] [facility] [address] Lucia Echevarria RN [address] [facility] [place] [address] MAYELA (generalized anxiety disorder) Allergies No known active allergiesdocumented as of [...] 3 Each 11 03/14/2023 Active Dexcom G7 Insulation Packer DeviceIndications :Type 2 diabetes mellitus with hemoglobin [...] or chew. 30 Capsule 5 08/01/2023 Active DULoxetine HCl 20 MG Oral Capsule Delayed Release Particles (duloxetine)Indic ations:MAYELA (generalized anxiety disorder) Take 1 Capsule (20 mg) by mouth in the morning. Do not cut, crush or chew. 30 Capsule 5 05/10/2022 Discontinue d(Refill) documented as of this encounter [...] Assessment & Plan: Managed via [facility] for wound care Acquired absence of right leg below knee 02/24/2023 03/03/2023 Hypokalemia 05/10/2022 04/20/2023 Alcohol dependence with with drawal, unspecified 03/15/2018 03/15/2018 Body mass index (BMI) of 40. 0 to 44.9 in adult 11/08/2017 12/20/2017 Overview: Per Obesity protocol #1 documented as of this encounter (statuses as of 08/01/2023) Immunizations Name Administration Dates Next Due Pneumococcal Conjugate Vacci ne, 20-valent ([id number]) 02/24/2023 Pneumococcal Polysaccharide PPV23 (Pneumovax) 05/04/2015 Seasonal [...] Telephone Encounter - Gracie Oseguera MD - 08/01/2023 2:29 PM ESTSigned Prescriptions: Disp Refills DULoxetine HCl 20 MG Oral Capsule Delayed *30 Cap*5 Sig: Take 1 Capsule by mouth in the morning. Do not cut, crush or chew. Authorizing Provider: GRACIE OSEGUERA * Telephone Encounter - Lucia Echevarria RN - 08/01/2023 1:09 PM EST Pt in need of refill of Duloxetine sent to [facility] Order pended for your review and signature. Thank you documented in this encounter Plan of Treatment Upcoming Encounters Date Type Department Care Team (Late st Contact Info) Description 08/09/2023 9:00 AM EST Scheduled Telephone [facility], [facility] [address] [facility] [place] [id number] Nhi Shetty, RDN [address] [facility] [place] [address] 08/11/2023 2:50 PM EST Pharmacy Pharmacy, [facility] [address] [facility] [address] Pharmacist1, [facility] [address] [facility] [place] [place] [address] 09/02/2023 2:30 PM EDT Home Visit [facility], [facility] [address] [place] [address] Lucia Echevarria, RN [address] [place] [address] Health Maintenance Due Date Last Done Comments COVID-19 Vaccine (#1) 1962 Diabetic Eye Exam 1980 Cologuard 2007 Colonoscopy 2007 Colorectal Cancer Screening 2007 Fecal Occult Blood Test 2007 Sigmoidoscopy 2007 Zoster Vaccines (1 of 2) 2012 DISCUSS TOBACCO CESSATION (REFER TO SMARTSET #9919) 03/15/2019 03/15/2018 Depression Screening 06/16/2019 06/16/2018 Hepatitis [...] 10/10/2017 LUNG CANCER SCREENING - USE SMARTSET [id number] Completed 12/08/2017 Influenza Vaccine (FLU shot) Completed [...] as of this encounter Visit Diagnoses Diagnosis MAYELA (generalized anxiety disorder) Generalized anxiety disorder documented in this encounter Care Teams Music Box Mechanic Relationship Specialty Start Date End Date Gracie Oseguera MD [address] [place] [address] PCP - General Internal Medicine 03/25/17 documented as of this encounter
--- OUTSIDE RECORDS SUMMARY | 2024-01-06 22:44 | External Medical Summary | Summary of Care ---
Author Name Unknown Organization [facility] Address [address] [place] [address] Phone [phone] Care Team Providers Care Cell Tender Name Role Phone Liyah Oseguera MD Primary Care Provider [phone] Reason for Visit * Reason Onset Date Comments Diabetes Follow-Up 09/06/2023 Encounter Details Date Type Department Care Team (Late st Contact Info) Description 09/06/2023 Telephone [facility] [address] [place] [address] Nhi Shetty, RDN [address] [place] [address] Diabetes Follow-Up Allergies No known active allergiesdocumented as of this encounter (statuses as of 09/26/2023) Medications Medication Sig Dispensed Refills Start Date [...] Each 11 03/14/2023 Active Dexcom G7 Supervisor Forming Department DeviceIndications:T ype 2 diabetes mellitus with hemoglobin [...] less than 7.0% ([facility]) Take 2 Tablets by mouth in the morning and 2 Tablets before bedtime. 360 Tablet 2 08/09/2023 Active documented as of this encounter (statuses as of 09/26/2023) Active Problems Problem Noted Date Diagnosed Date Other chronic pancreatitis 04/20/2023 Type 2 diabetes mellitus wit h hemoglobin A1c goal of less than 7.0% 02/24/2023 Last Assessment & Plan: Insulin dependent Recent referral to 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 0 to 44.9 in adult 11/08/2017 12/20/2017 Overview: Per Obesity protocol #1 documented as of this encounter (statuses as of 09/26/2023) Immunizations Name Administration Dates Next Due Pneumococcal Conjugate Vacci ne, 20-valent ([id number]) 02/24/2023 Pneumococcal Polysaccharide PPV23 (Pneumovax) 05/04/2015 Seasonal [...] encounter Miscellaneous Notes * Telephone Encounter - Radha Paulson OSA - 09/26/2023 12:46 PM EDT LMOM. 09/26/2023 * Telephone Encounter - HarIdalia tripathi PHARM Tech - 09/06/2023 3:41 PM EDT Spoke to pt to schedule his [facility] diabetes mgmt appt and he said he was not interested in scheduling his appt. Thank you, Idalia Hill Magazine Journalist [facility] 09/06/2023,3:42 PM * Telephone Encounter - Tasneem Ramos [facility] - 09/06/2023 3:08 PM EDT Scheduling- please schedule patient for a NEW DM appointment at any of the local [facility] clinics ([facility], [facility]) whichever is most convenient for patient. Thanks, Tasneem Ramos, PharmD, BCACP Clinical Pharmacist Medication Therapy Disease Management 09/06/2023, 3:09 PM * Telephone Encounter - Nhi Shetty RDN - 09/06/2023 2:47 PM EDT NUTRITION PROGRESS NOTE - [facility] AT HOME [facility] Nutrition follow up this date. [...] I encouraged him to become re-engaged with [facility]. He did agree to this. Is consuming [...] PM EDT [facility] Visit [facility], [facility] [address] [place] [address] Lucia Echevarria RN [address] [place] [address] 10/18/2023 11:30 AM EDT Scheduled Telephone [facility], [facility] [address] [facility] [place] [id number] Nhi Shetty RDN [address] [facility] [place] [address] Health Maintenance Due Date Last Done Comments [...] 10/10/2017 LUNG CANCER SCREENING - USE SMARTSET 85036 Completed 12/08/2017 Influenza Vaccine (FLU shot) Completed [...] filedocumented as of this encounter Care Teams Cell Tender Relationship Specialty Start Date End Date Liyah Oseguera MD [address] [facility] [place] [address] PCP - General Internal Medicine 03/25/17 documented as of this encounter
--- OUTSIDE RECORDS SUMMARY | 2024-01-06 22:44 | External Medical Summary | Summary of Care ---
Author Name Unknown Organization [facility] Address [address] [place] [address] Phone [phone] Care Team Providers Care Deicer Repairer Name Role Phone Liyah Oseguera MD Primary Care Provider [phone] Reason for Visit * Reason Onset Date Comments Medical Nutrition Therapy 08/09/2023 Encounter Details Date Type Department Care Team (Latest Contact Info) Description 08/09/2023 9:00 AM EST Scheduled Telephone [facility], [facility] [address] [facility] [place] [address] Nhi Shetty, RDN [address] [facility] [address] Type 2 diabetes mellitus with hemoglobin A1c goal of less than 7.0% ([facility])* Allergies No known active allergiesdocumented [...] 3 Each 11 03/14/2023 Active Dexcom G7 Balling Machine Operator DeviceIndications :Type 2 diabetes mellitus with [...] Tablets before bedtime. 360 Tablet 4 03/14/2023 4 Discontinue d(Refill) documented as of this encounter (statuses as of 09/06/2023) Active Problems Problem Noted Date Diagnosed Date Other chronic pancreatitis 04/20/2023 Type 2 diabetes mellitus wit h hemoglobin A1c goal of less than 7.0% 02/24/2023 Last Assessment & Plan: Insulin dependent Recent referral to [facility] for management Hemoglobin AIC Results: Lab [...] & Plan: Managed via [facility] for wound care Acquired absence of right leg below knee 02/24/2023 03/03/2023 Hypokalemia 05/10/2022 04/20/2023 Alcohol dependence with with drawal, unspecified 03/15/2018 03/15/2018 Body mass index (BMI) of 40. 0 to 44.9 in adult 11/08/2017 12/20/2017 Overview: Per Obesity protocol #1 documented as of this encounter (statuses as of 09/06/2023) Immunizations Name Administration Dates Next Due Pneumococcal Conjugate Vacci ne, 20-valent ([id number]) 02/24/2023 Pneumococcal Polysaccharide PPV23 (Pneumovax) 05/04/2015 Seasonal [...] 10:31 AM EST NUTRITION PROGR[facility] TELEPHONIC [facility] Patient Phone Numbers: [phone] Mobile Call placed to pt as follow-up. [...] is aware. Reports eating cereal for breakfast, Meals on wheels for lunch, and tuna sandwich at dinner [...] pt to contact [facility] at [phone] for any non-emergent changes/concerns. JAMES Roberson, L[place], LDN Clinical Dietitian [facility] documented in this encounter Plan of Treatment Upcoming Encounters Date Type Department Care Team ([facility] st Contact Info) Description 09/28/2023 2:00 PM EDT Home Visit [facility], [address] [place] [address] Lucia Echevarria, RN [address] [place] [address] Health Maintenance Due Date Last Done Comments [...] 10/10/2017 LUNG CANCER SCREENING - USE SMARTSET [id number] Completed 12/08/2017 Influenza Vaccine (FLU shot) Completed [...] goal of less than 7.0% ([facility])- Primary documented in this encounter Care Teams Deicer Repairer Relationship Specialty Start Date End Date Liyah Oseguera MD [address] [facility] [place] [address] PCP - General Internal Medicine 03/25/17 documented as of this encounter
--- OUTSIDE RECORDS SUMMARY | 2024-01-06 22:44 | External Medical Summary | Summary of Care ---
Author Name Unknown Organization [facility] Address [address] [place] [address] Phone [phone] Care Team Providers Care Electrical Engineering Drafting Officer Name Role Phone Liyah Oseguera MD Primary Care Provider [phone] Encounter Details Date Type Department Care Team (Late st Contact Info) Description 09/02/2023 1:00 PM EDT Home Visit Care Coordination and Integration [address], [place] [id number] Gavi Apple, [facility] Rn Clinical [address], [place] [id number] Allergies No known active allergiesdocumented as of this encounter (statuses as of 09/02/2023) Medications Medication Sig Dispensed Refills Start Date [...] 3 Each 11 03/14/2023 Active Dexcom G7 Maintenance Worker House Trailer DeviceIndications:T ype 2 diabetes mellitus with hemoglobin [...] as of this encounter (statuses as of 09/02/2023) Active Problems Problem Noted Date Diagnosed Date Other chronic pancreatitis 04/20/2023 Type 2 diabetes mellitus wit h hemoglobin A1c goal of less than 7.0% 02/24/2023 Last Assessment & Plan: Insulin dependent Recent referral to [facility] for management Hemoglobin AIC Results: Lab Results [...] as of this encounter (statuses as of 09/02/2023) Resolved Problems Problem Noted Date Diagnosed Date Resolved Date Acute respiratory failure with hypoxia 03/03/2023 03/03/2023 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 0 to 44.9 in adult 11/08/2017 12/20/2017 Overview: Per Obesity protocol #1 documented as of this encounter (statuses as of 09/02/2023) Immunizations Name Administration Dates Next Due Pneumococcal Conjugate Vacci ne, 20-valent ([id number]) 02/24/2023 Pneumococcal Polysaccharide PPV23 (Pneumovax) 05/04/2015 Seasonal [...] Reading Time Taken Comments Blood Pressure 120/80 09/02/2023 1:32 PM EDT Pulse 78 09/02/2023 1:32 PM EDT Temperature 36.8 C (98.2 F) 09/02/2023 1:32 PM ED T Respiratory Rate - - Oxygen Saturation 98% 09/02/2023 1:32 PM EDT Inhaled Oxygen Concentration - - Weight - - Height - - Body Mass Index - - documented in this encounter Progress Notes * Gavi Apple, [facility] Rn Clinical - 09/02/2023 1:25 PM EDT Telemedicine visit: No [facility] R[facility] Clinical ([facility]DE) documentation: CANDE facilitated home visit and reviewed his meds with him. Gavi Apple- [facility] Support Services/[facility] [email or web address] documented in this encounter Plan of Treatment Upcoming Encounters Date Type Department Care Team (Late st Contact Info) Description 09/06/2023 11:00 AM EDT Scheduled Telephone [facility] [address] [facility] [place] [phone] Nhi Shetty, RDN [address] [facility] [place] [phone] 09/28/2023 2:00 PM EDT Home Visit [facility] [place] [facility] [address] [place] [id number] Lucia Echevarria, RN [address] [place] [phone] Health Maintenance Due Date Last Done Comments [...] 10/10/2017 LUNG CANCER SCREENING - USE SMARTSET 19892 Completed 12/08/2017 Influenza Vaccine (FLU shot) Completed [...] filedocumented as of this encounter Care Teams Electrical Engineering Drafting Officer Relationship Specialty Start Date End Date Liyah Oseguera MD [address] [facility] [place] [address] PCP - General Internal Medicine 03/25/17 documented as of this encounter
[2024-01-06 22:58] LABS: Basophils # (auto) 0.03 K/uL (0.00-0.20); Basophils % (auto) 0.4 %; Eosinophils # (auto) 0.02 K/uL (0.00-0.50); Eosinophils % (auto) 0.2 %; Hematocrit (blood only) 41.1 % (42.0-52.0); Hemoglobin 13.7 g/dl (14.0-18.0); Immature Granulocytes # (auto) 0.04 K/uL (0.01-0.20); Immature Granulocytes % (auto) 0.5 %; Lymphocytes % (auto) 17.7 %; Mean Corpuscular Hgb Conc 33.3 g/dL (32.0-36.0); Mean Corpuscular Volume 86.9 fL (80.0-100.0); Mean Platelet Volume 9.1 fL (9.4-12.4); Monocytes # (auto) 0.49 K/uL (0.11-0.59); Monocytes % (auto) 5.8 %; Neutrophils # (auto) 6.41 K/uL (1.40-6.50); Neutrophils % (auto) 75.4 %; Platelet Count 240 K/uL (130-400); RDW Coefficient of Variation 12.8 % (11.5-14.5); RDW Standard Deviation 40.5 fL (36.4-46.3); Red Blood Count 4.73 M/uL (4.70-6.10); White Blood Count 8.49 K/ul (4.8-10.8)
[2024-01-06 22:59] LABS: Albumin Level 4.8 gm/dl (3.4-5.0); BUN Creatinine Ratio 22.1 (10-20); Bilirubin Direct 0.1 mg/dl (0-0.2); Bilirubin,Total 0.5 mg/dl (0.2-1.0); Calcium 9.3 mg/dl (8.6-10.3); Creatinine Clr Calc Pharmacy 82.6 ml/min; Est GFR (African American) 99.7 ml/min; Est GFR (Non-African American) 86.1 ml/min; Magnesium 2.1 mg/dl (1.7-2.4); Potassium 4.3 mmol/L (3.5-5.1); Total Protein 8.5 gm/dl (6.0-8.3)
[2024-01-06 23:05] LABS: Troponin I High Sensitivity 3.7 pg/ml (0-20)
--- NOTE | 2024-01-06 23:14 | Emergency Department Note ---
History of Present Illness General Chief complaint: Hypoglycemia Stated complaint: HYPOGLYCEMIA Time Seen by Provider: 01/06/24 22:12 History of Present Illness This 63-year-old alcoholic diabetic presents the ER for altered mental status. The brother went to check in on him and he was unresponsive so he summoned EMS. Glucose is low and EMS gave dextrose and patient improved. Patient states he has been drinking heavily. He had some breakfast and nothing else to eat. He is not sure how much insulin he took today. Patient states he feels better now and has no active medical complaints. Patient has chest pain, dyspnea, headache, abdominal pain, vomiting, diarrhea or any other medical complaints. Rectal temperature is 33.6. Home Medications Medication Instructions Recorded Confirmed Type carvedilol 3.125 mg tablet 3.125 mg PO BID 01/07/24 01/07/24 History duloxetine 20 mg capsule,delayed 20 mg PO QAM 01/07/24 01/07/24 History release folic acid 1 mg tablet 1 mg PO QAM 01/07/24 01/07/24 History insulin aspart U-100 100 unit/mL 4 unit subcut AC 01/07/24 01/07/24 History (3 mL) subcutaneous pen insulin glargine 100 unit/mL (3 20 unit subcut QAM 01/07/24 01/07/24 History mL) subcutaneous pen (Lantus Solostar U-100 Insulin) metformin 500 mg tablet,extended 1,000 mg PO DIRECTED 01/07/24 01/07/24 History release 24 hr polyethylene glycol 3350 17 17 g PO DAILY PRN Constipation 01/07/24 01/07/24 History gram/dose oral powder (Miralax) potassium chloride 20 mEq oral 20 meq PO QAM 01/07/24 01/07/24 History packet (Klor-Con) Allergies Allergy/AdvReac Type Severity Reaction Status Date / Time No Known Allergies Allergy Verified 01/07/24 00:13 Past Med/Surg History Problem List Acute alcoholism (Acute) Hypothermia (Acute) Elevated lactic acid level (Acute) Hypoglycemia (Acute) AMS (altered mental status) (Acute) Acute hyperkalemia (Acute) Diabetes mellitus DKA (diabetic ketoacidosis) (Acute) Diabetes mellitus, new onset (Acute) AMS (altered mental status) (Acute) High anion gap metabolic acidosis Metabolic encephalopathy (Acute) IDALIA (acute kidney injury) Hyperosmolar hyperglycemic state (HHS) Intertrochanteric fracture of left femur Closed fracture of left hip (Acute) Alcohol abuse (Acute) Fall (Acute) Diabetes mellitus type 2 in nonobese Alcohol withdrawal (Acute) Hyponatremia Marijuana abuse Cocaine abuse Alcoholism Acute pancreatitis (Acute) Nausea & vomiting (Acute) Depression (Chronic) 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 Obesity GERD (gastroesophageal reflux disease) Surgical History History of mandibular surgery BROKEN JAW 1978 History of tooth extraction ALL TEETH REMOVED Complete below knee amputation of right lower extremity Family History Sister Family history of diabetes mellitus Brother Pancreatic carcinoma Social History Smoking Status: Heavy tobacco smoker Tobacco Type: Cigarettes Second Hand Exposure: No; Hx Alcohol Use: Yes Alcohol type: beer and hard liquor Alcohol Intake Frequency: 4 or More x per/Week Alcohol Intake Frequency Comment: 6 pack of beer + daily Hx Substance Use: Yes Last Used Substance: Unknown Preferred Language: Korean Communication Ability: Impaired C T Tech Required: No Beliefs That Will Affect Care: None marital status: Single Current Living Situation: Family Current Living Situation Comment: lives with brother Feels Safe at Home: Yes Assistive Devices: Cane and Other Review of Systems A total of 10 systems reviewed and were otherwise negative Physical Exam Vital Signs Vital Signs - 24 hr 01/06/24 21:45 01/06/24 22:20 01/06/24 22:22 Temperature 33.6 C L Temperature Source Oral Pulse Rate 79 82 Pulse Rate [Right Finger] 88 Respiratory Rate 22 14 Blood Pressure 147/99 H Blood Pressure [Right Arm] 147/99 H Blood Pressure Mean 115 Blood Pressure Mean [Right Arm] 115 Pulse Oximetry 97 97 Oxygen Delivery Method Room Air Room Air Sepsis Recent Fever Within 48 Hours No Sepsis New/Unexplained Change in Mental Status N/A Sepsis Action Taken by Nursing Physician Notified 01/06/24 22:25 01/06/24 23:17 Temperature 36.4 C L Temperature Source Oral Pulse Rate 87 Pulse Rate [Right Finger] 85 Respiratory Rate 22 22 Blood Pressure Blood Pressure [Right Arm] 133/90 Blood Pressure Mean Blood Pressure Mean [Right Arm] 104 Pulse Oximetry 98 97 Oxygen Delivery Method Room Air Room Air Sepsis Recent Fever Within 48 Hours Sepsis New/Unexplained Change in Mental Status Sepsis Action Taken by Nursing VITALS: Vitals are noted on the nurse's note and reviewed by myself. Vital signs hypothermic. GENERAL: Black male answering questions appropriately right leg below the knee amputee, in no acute distress, nondiaphoretic, well-developed well-nourished. SKIN: The skin was without rashes, erythema, edema, or bruising. There is no tenting of the skin. Capillary reflex less than 2 seconds. HEAD: Normocephalic atraumatic. EARS: External auditory canals clear EYES: Pupils equal round and reactive to light and accommodation. Conjunctivae without injection, sclerae without icterus. Extraocular movements intact. NOSE: Patent, no discharge. MOUTH: Mucous membranes moist. Pharynx without erythema or exudate. Uvula midline. Airway patent. Tongue does not deviate. NECK: Supple without nuchal rigidity. No lymphadenopathy. No thyromegaly. Cervical spine is nontender. No JVD. HEART: Regular rate and rhythm LUNGS: Clear to auscultation bilaterally without wheezes, rales or rhonchi. No retractions or accessory muscle use. ABDOMEN: Positive bowel sounds x 4. Normal tympanic percussion. Soft, nontender, without masses or organomegaly. Rivas sign negative. No guarding or rebound tenderness. No CVA tenderness MUSCULOSKELETAL: No muscle atrophy, erythema, or edema noted. NEURO: Patient was alert and oriented to person place and time. Normal sensation to light and sharp touch. No focal neurological deficits. Course Administered Medications Discontinued Medications Sodium Chloride (Nss) 1,000 mls @ 999 mls/hr IV .Q1H1M RONEY Stop: 01/07/24 00:30 Last Admin: 01/06/24 23:48 Dose: 999 mls/hr Documented By: Infusion: 01/06/24 23:39 Dose: Infused Documented By: Infusion: 01/06/24 23:31 Dose: Infused Documented By: Admin: 01/06/24 22:30 Dose: 999 mls/hr Documented By: KRISTOFER Piperacillin Sod/Tazobactam Sod (Zosyn) 4.5 gm in 100 mls @ 200 mls/hr IV NOW ONE Stop: 01/06/24 22:53 Last Infusion: 01/06/24 23:48 Dose: Infused Documented By: Admin: 01/06/24 22:32 Dose: 200 mls/hr Documented By: KRISTOFER Critical Care Time Critical Care Time: Yes Total Critical Care Time: 35 I have personally spent 35 minutes of critical care time in the direct management of this patient. This includes bedside care, interpretation of diagnostic studies, and testing, discussion with consultants, patient, and family members, and other required patient management activities. This 35 minutes is in excess of all separately billable procedures. Medical Decision Making Medical Records Attestation: I reviewed the patient's medical records. Home Medications Current Medication List: was personally reviewed by me Laboratory Data Attestation: I reviewed the patient's lab results. 01/06/24 22:20 01/06/24 22:20 Lab Results 01/06/24 01/06/24 01/06/24 Range/Units 21:57 22:20 23:05 WBC 8.49 (4.8-10.8) K/ul RBC 4.73 (4.70-6.10) M/uL Hgb 13.7 L (14.0-18.0) g/dl Hct 41.1 L (42.0-52.0) % MCV 86.9 (80.0-100.0) fL MCH 29.0 (25.0-34.0) pg MCHC 33.3 (32.0-36.0) g/dL RDW Std Deviation 40.5 (36.4-46.3) fL RDW Coeff of Miguel 12.8 (11.5-14.5) % Plt Count 240 (130-400) K/uL MPV 9.1 L (9.4-12.4) fL Immature Gran % (Auto) 0.5 % Neut % (Auto) 75.4 % Lymph % (Auto) 17.7 % [place] % (Auto) 5.8 % Eos % (Auto) 0.2 % Baso % (Auto) 0.4 % Neut # (Auto) 6.41 (1.40-6.50) K/uL Lymph # (Auto) 1.50 (1.20-3.40) K/uL [place] # (Auto) 0.49 (0.11-0.59) K/uL Eos # (Auto) 0.02 (0.00-0.50) K/uL Baso # (Auto) 0.03 (0.00-0.20) K/uL Immature Gran # (Auto) 0.04 (0.01-0.20) K/uL PT 10.7 (9.0-12.0) Seconds INR 1.0 (0.9-1.1) APTT 33 H (21-31) Seconds PTT Ratio 1.2 VBG pH (7.36-7.41) VBG pCO2 (38-50) mmHg VBG pO2 mmHg VBG HCO3 mmol/L VBG O2 Saturation % VBG Base Excess mEq/L Sodium 135 L (136-145) mmol/L Potassium 4.3 (3.5-5.1) mmol/L Chloride 100 (98-107) mmol/L Carbon Dioxide 20 L (21-32) mmol/L Anion Gap 15 H (3-11) BUN 21 (6-23) mg/dl Creatinine 0.95 (0.6-1.4) mg/dl Est Cr Clr Drug Dosing 82.6 ml/min Est GFR ( Amer) 99.7 ml/min Est GFR (Non-Af Amer) 86.1 ml/min BUN/Creatinine Ratio 22.1 H (10-20) Glucose 106 H (70-99(Fasting)) mg/dl POC Glucose 134 H (70-99) mg/dl Lactate (0.4-2.0) mmol/L Calcium 9.3 (8.6-10.3) mg/dl Magnesium 2.1 (1.7-2.4) mg/dl Total Bilirubin 0.5 (0.2-1.0) mg/dl Direct Bilirubin 0.1 (0-0.2) mg/dl AST 16 (13-39) U/L ALT 10 (7-52) U/L Alkaline Phosphatase 93 (34-104) U/L Troponin I High Sens 3.7 (0-20) pg/ml Total Protein 8.5 H (6.0-8.3) gm/dl Albumin 4.8 (3.4-5.0) gm/dl Procalcitonin < 0.02 (0-0.5) ng/ml Urine Color Dark Yellow Urine Appearance Clear (Clear) Urine pH 5.0 (4.5-7.5) Ur Specific [place] 1.025 (1.000-1.030) Urine Protein 2+ H (Negative) Urine Glucose (UA) 1+ H (Negative) Urine Ketones 1+ H (Negative) Urine Blood Negative (Negative) Urine Nitrite Negative (Negative) Urine Bilirubin Negative (Negative) Urine Urobilinogen Negative (Negative) Ur Leukocyte Esterase Negative (Negative) Urine WBC (Auto) 0-5 (0-5) /hpf Urine RBC (Auto) 0-2 (0-2) /hpf U Hyaline Cast (Auto) >20 H (0-2) /lpf U Epithel Cells (Auto) 0-2 (0-2) /hpf Urine Bacteria (Auto) None Seen (None Seen) Hyaline Casts Present A (None Presnt) /lpf Urine Opiates Screen Neg (Neg) Ur Methadone, Qual Neg (Neg) Urine Fentanyl Screen Neg (Neg) Urine Barbiturates Neg (Neg) Ur Phencyclidine (PCP) Neg (Neg) U Amphetamin/Meth Scrn Neg (Neg) MDMA (Ecstasy) Screen Neg (Neg) U Benzodiazepines Scrn Neg (Neg) Ur Cocaine Metabolite Neg (Neg) U Marijuana (THC) Screen Pos H (Neg) Ethyl Alcohol mg/dL 59.7 H (<10.0) mg/dl 01/06/24 Range/Units 23:17 WBC (4.8-10.8) K/ul RBC (4.70-6.10) M/uL Hgb (14.0-18.0) g/dl Hct (42.0-52.0) % MCV (80.0-100.0) fL MCH (25.0-34.0) pg MCHC (32.0-36.0) g/dL RDW Std Deviation (36.4-46.3) fL RDW Coeff of Miguel (11.5-14.5) % Plt Count (130-400) K/uL MPV (9.4-12.4) fL Immature Gran % (Auto) % Neut % (Auto) % Lymph % (Auto) % [place] % (Auto) % Eos % (Auto) % Baso % (Auto) % Neut # (Auto) (1.40-6.50) K/uL Lymph # (Auto) (1.20-3.40) K/uL [place] # (Auto) (0.11-0.59) K/uL Eos # (Auto) (0.00-0.50) K/uL Baso # (Auto) (0.00-0.20) K/uL Immature Gran # (Auto) (0.01-0.20) K/uL PT (9.0-12.0) Seconds INR (0.9-1.1) APTT (21-31) Seconds PTT Ratio VBG pH 7.23 L (7.36-7.41) VBG pCO2 40 (38-50) mmHg VBG pO2 42 mmHg VBG HCO3 17 mmol/L VBG O2 Saturation 70.2 % VBG Base Excess -10.2 mEq/L Sodium (136-145) mmol/L Potassium (3.5-5.1) mmol/L Chloride (98-107) mmol/L Carbon Dioxide (21-32) mmol/L Anion Gap (3-11) BUN (6-23) mg/dl Creatinine (0.6-1.4) mg/dl Est Cr Clr Drug Dosing ml/min Est GFR ( Amer) ml/min Est GFR (Non-Af Amer) ml/min BUN/Creatinine Ratio (10-20) Glucose (70-99(Fasting)) mg/dl POC Glucose (70-99) mg/dl Lactate 3.9 H* (0.4-2.0) mmol/L Calcium (8.6-10.3) mg/dl Magnesium (1.7-2.4) mg/dl Total Bilirubin (0.2-1.0) mg/dl Direct Bilirubin (0-0.2) mg/dl AST (13-39) U/L ALT (7-52) U/L Alkaline Phosphatase (34-104) U/L Troponin I High Sens (0-20) pg/ml Total Protein (6.0-8.3) gm/dl Albumin (3.4-5.0) gm/dl Procalcitonin (0-0.5) ng/ml Urine Color Urine Appearance (Clear) Urine pH (4.5-7.5) Ur Specific [place] (1.000-1.030) Urine Protein (Negative) Urine Glucose (UA) (Negative) Urine Ketones (Negative) Urine Blood (Negative) Urine Nitrite (Negative) Urine Bilirubin (Negative) Urine Urobilinogen (Negative) Ur Leukocyte Esterase (Negative) Urine WBC (Auto) (0-5) /hpf Urine RBC (Auto) (0-2) /hpf U Hyaline Cast (Auto) (0-2) /lpf U Epithel Cells (Auto) (0-2) /hpf Urine Bacteria (Auto) (None Seen) Hyaline Casts (None Presnt) /lpf Urine Opiates Screen (Neg) Ur Methadone, Qual (Neg) Urine Fentanyl Screen (Neg) Urine Barbiturates (Neg) Ur Phencyclidine (PCP) (Neg) U Amphetamin/Meth Scrn (Neg) MDMA (Ecstasy) Screen (Neg) U Benzodiazepines Scrn (Neg) Ur Cocaine Metabolite (Neg) U Marijuana (THC) Screen (Neg) Ethyl Alcohol mg/dL (<10.0) mg/dl Imaging Data Attestation: I personally reviewed and interpreted this imaging study as follows: Radiologist's Impression: Head CT 01/06/24 22:24 Exam(s): CT HEAD Without Contrast EXAM: CT Head Without Intravenous Contrast CLINICAL HISTORY: Reason for exam: ams. TECHNIQUE: Axial computed tomography images of the head/brain without intravenous contrast . No reformatted images.. CTDI is 36.55 mGy and DLP is 625.8 mGy-cm. Automated exposure control was utilized for the study. A dose lowering technique was utilized adhering to the principles of ALARA. COMPARISON: No relevant prior studies available. FINDINGS: Brain: No hemorrhage. No apparent acute cortical infarct. No mass lesion or midline shift. Senescent changes with small vessel disease. Ventricles: No hydrocephalus. Bones/joints: No acute fracture. Soft tissues: Unremarkable. Sinuses: No acute sinusitis. Mastoid air cells: No mastoid effusion. Orbits: No acute process. IMPRESSION: No acute intracranial process. Electronically signed by: Kalpesh Lindsey M.D. 01/06/24 23:24 PM MDM Narrative Prior records/ancillary studies reviewed and summarized above. Nursing notes reviewed. Additional history obtained from nursing. The patient's history was concerning for altered mental status. Differential diagnosis: Etiologies such as polysubstance abuse, metabolic, infection, hypo/hyperglycemia, electrolyte abnormalities, cardiac sources, intracerebral event, toxicologic, neurologic, as well as others were entertained. Physical examination: As above. ER treatment provided: IV Lock An order was placed for continuous cardiac monitoring. The monitor shows a rate of 60-100 with a sinus rhythm per my interpretation. EMS gave dextrose, IV fluids and Flip hugger were placed Zosyn was given for possible sepsis On reassessment the patient felt better. Diagnostics interpretation by me: ECG: Ordered for altered mental status EKG: Irregularly irregular with Bartlett waves with no acute ST-T wave changes, ventricular rate 81. Impression A-fib rate controlled with Bartlett waves concerning for hypothermia independently interpreted by myself The labs Independently Interpreted by myself revealed no worrisome leukocytosis, mild anemia Negative procalcitonin Imaging studies: Chest x-ray with no acute consolidation, pneumothorax or free air per my independent interpretation CT as above Consultation: A consultation was placed with the hospitalist. The case was discussed and diagnostics were reviewed. The patient was evaluated in the ER for further treatment. Exam and history seem consistent with altered mental status most likely related to alcoholism and hypoglycemia with hypothermia. Patient's not sure how much insulin he took today. Has been drinking for several days straight. He did not eat anything besides breakfast today. Blood sugar improved with dextrose that was given by EMS. Bar hugger was placed and temperature did improve. Patient is agreeable treatment plan of admission. Medicine was consulted and case was discussed. He admitted to the medical service. By the evaluation outlined above emergent etiologies such as electrolyte abnormalities, cardiac sources, intracerebral event, neurologic, metabolic, as well as others were deemed relatively unlikely. The pt informed about the findings as listed above. All questions were answered and pleased with the treatment. The chart was completed utilizing [employer] voice recognition software. Grammatical errors, random word insertions, pronoun errors, and incomplete sentences are an occassional consequence of this system due to software limitations, ambient noise, and hardware issues. Any formal questions or concerns about the content, text, or information contained within the body of this dictation should be directly addressed to the physician call center assistant for clarification. Impression & Plan Hypoglycemia, Hypothermia, Acute alcoholism Discharge Plan Visit Data Chief Complaint: Hypoglycemia Stated Complaint: HYPOGLYCEMIA ED Provider: Odessa Abraham ED Midlevel Provider: Idalia Echevarria Discharge Problem: Hypoglycemia, Hypothermia, Acute alcoholism Patient Disposition: Admitted As Inpatient Condition: Fair Forms Stand Alone Forms: My [facility] Prescriptions Prescriptions: No Action carvedilol 3.125 mg tablet 3.125 mg PO BID potassium chloride [Klor-Con] 20 mEq packet 20 meq PO QAM folic acid 1 mg tablet 1 mg PO QAM polyethylene glycol 3350 [Miralax] 17 gram/dose Powder 17 g PO DAILY PRN (Reason: Constipation) metformin 500 mg tablet extended release 24 hr 1,000 mg PO DIRECTED insulin aspart U-100 100 unit/mL (3 mL) insulin pen 4 unit SUBCUT AC duloxetine 20 mg capsule,delayed release(DR/EC) 20 mg PO QAM insulin glargine [Lantus Solostar U-100 Insulin] 100 unit/mL (3 mL) insulin pen 20 unit SUBCUT QAM Referrals Referrals: Liyah Oseguera MD [Primary Care Provider] -
--- NOTE | 2024-01-06 23:25 | CT Scan Report ---
Exam(s): CT HEAD Without Contrast EXAM: CT Head Without Intravenous Contrast CLINICAL HISTORY: Reason for exam: ams. TECHNIQUE: Axial computed tomography images of the head/brain without intravenous contrast . No reformatted images.. CTDI is 36.55 mGy and DLP is 625.8 mGy-cm. Automated exposure control was utilized for the study. A dose lowering technique was utilized adhering to the principles of ALARA. COMPARISON: No relevant prior studies available. FINDINGS: Brain: No hemorrhage. No apparent acute cortical infarct. No mass lesion or midline shift. Senescent changes with small vessel disease. Ventricles: No hydrocephalus. Bones/joints: No acute fracture. Soft tissues: Unremarkable. Sinuses: No acute sinusitis. Mastoid air cells: No mastoid effusion. Orbits: No acute process. IMPRESSION: No acute intracranial process. Electronically signed by: Kalpesh Lindsey M.D. 01/06/24 23:24 PM
[2024-01-06 23:31] LABS: Partial Thromboplastin Ratio 1.2; Partial Thromboplastin Time 33 Seconds (21-31); Prothrombin Time 10.7 Seconds (9.0-12.0)
[2024-01-06 23:40] LABS: Base Excess VBG -10.2 mEq/L; HCO3 VBG 17 mmol/L; Oxygen Saturation VBG 70.2 %; PCO2 VBG 40 mmHg (38-50); PO2 VBG 42 mmHg; pH VBG 7.23 (7.36-7.41)
[2024-01-07] LABS: Appearance Urine Clear (Clear); Bacteria Urine Automated None Seen (None Seen); Bilirubin Urine Negative (Negative); Blood Urine Negative (Negative); Cast Urine Automated >20 /lpf (0-2); Color Urine Dark Yellow; Epithelial Cell Urine Auto 0-2 /hpf (0-2); Glucose Urine UA 1+ (Negative); Hyaline Casts Urine Present /lpf (None Presnt); Ketones Urine 1+ (Negative); Leukocyte Esterase Urine Negative (Negative); Nitrite Urine Negative (Negative); Protein Urine 2+ (Negative); RBC Urine Automated 0-2 /hpf (0-2); Specific Gravity Urine 1.025 (1.000-1.030); Urobilinogen Urine Negative (Negative); WBC Urine Automated 0-5 /hpf (0-5)
[2024-01-07 00:41] LABS: Amphetamines+Metham, Urine Neg (Neg); Barbiturates, Urine Neg (Neg); Benzodiazepine, Urine Neg (Neg); Cocaine, Urine Neg (Neg); Fentanyl, Urine Neg (Neg); MDMA (Ecstacy), Urine Neg (Neg); Marijuana, Urine Pos (Neg); Methadone, Urine Neg (Neg); Opiate, Urine Neg (Neg); Phencyclidine, Urine Neg (Neg)
--- NOTE | 2024-01-07 02:36 | History & Physical Report ---
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 As per ER when his brother checked on him he was found unresponsive so called EMS. For EMS glucose was low and dextrose was given and patient improved. Currently alert and oriented x 3. Patient states he drinks 1 pint of whiskey couple of times a week. Last time he drank was yesterday. He states checks his sugars daily and they were running okay. He takes his long-acting insulin 20 units daily and sh ort acting insulin5 units with meals. He was also found to be hypothermic and currently on Flip hugger. Denies any headache. No blurred vision , no runny nose or sore throat. No fevers. No chest pain or shortness of breath. No nausea, no abdominal pain. Normal bowel and bladder movements as per patient. Hemodynamics are okay. Patient was admitted in the hospital in end of May 2023 with similar episode and at the time his glucose was found to be 11 ,during that admission he was also treated for acute respiratory failure with hypoxia secondary to pneumonia and also treated for hypertensive urgency. unresponsive episode mostly secondary to hypoglycemia improved after dextrose CT head is okay currently alert and oriented we will place him on D5 normal saline at 75 mill per hour for now monitor in the hospital hypothermia mostly from hypoglycemia continue Flip hugger follow TSH levels received a dose of Zosyn in the ER procalcitonin levels okay so will hold antibiotics will monitor elevated lactic acid lactic acid 3.9 and repeat is 1.9 mostly from above A-fib seems new onset rates under control continue home Coreg initial troponin negative we will follow serial enzymes and echo consult cardiology in a.m. for further recommendations diabetes presents with hypoglycemia will hold home medications currently getting D5 normal saline at 75 mill per hour will closely monitor sugars sliding scale HbA1c level was greater than 16.9 on 02/12/2023 and was 7.3 on 06/09/2023 will follow HbA1c levels glycemic pharmacy consult hypertension on Coreg Will monitor alcoholism states drinks 1 pint of whiskey couple of times a week denies alcohol withdrawal will place on IV thiamine and IV folic acid and give a banana bag multivitamins IV Ativan as needed close monitor hypokalemia on potassium supplements patient also had a history of hyperkalemia we will follow labs DVT prophylaxis Lovenox disposition telemetry full code. 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 As per ER when his brother checked on him he was found unresponsive so called EMS. For EMS glucose was low and dextrose was given and patient improved. Currently alert and oriented x 3. Patient states he drinks 1 pint of whiskey couple of times a week. Last time he drank was yesterday. He states checks his sugars daily and they were running okay. He takes his long-acting insulin 20 units daily and short acting insulin5 units with meals. He was also found to be hypothermic and currently on Flip hugger. Denies any headache. No blurred vision , no runny nose or sore throat. No fevers. No chest pain or shortness of breath. No nausea, no abdominal pain. Normal bowel and bladder movements as per patient. Hemodynamics are okay. Patient was admitted in the hospital in end of May 2023 with similar episode and at the time his glucose was found to be 11 ,during that admission he was also treated for acute respiratory failure with hypoxia secondary to pneumonia and also treated for hypertensive urgency. Past medical history. As mentioned above past surgical history. Amputation of the right leg below the knee . Social history. Currently living with his brother. Smokes a pack a day for last 40 years. Says currently drinking a pint of vodka a couple of times a week. History of cocaine and he states he did cocaine last time was 2 years ago. Family history. Brother had pancreatic cancer Allergies Allergy/AdvReac Type Severity Reaction Status Date / Time No Known Allergies Allergy Verified 01/07/24 00:13 Home Medications Medication Instructions Recorded Confirmed Type carvedilol 3.125 mg tablet 3.125 mg PO BID 01/07/24 01/07/24 History duloxetine 20 mg capsule,delayed 20 mg PO QAM 01/07/24 01/07/24 History release folic acid 1 mg tablet 1 mg PO QAM 01/07/24 01/07/24 History insulin aspart U-100 100 unit/mL 4 unit subcut AC 01/07/24 01/07/24 History (3 mL) subcutaneous pen insulin glargine 100 unit/mL (3 20 unit subcut QAM 01/07/24 01/07/24 History mL) subcutaneous pen (Lantus Solostar U-100 Insulin) metformin 500 mg tablet,extended 1,000 mg PO DIRECTED 01/07/24 01/07/24 History release 24 hr polyethylene glycol 3350 17 17 g PO DAILY PRN Constipation 01/07/24 01/07/24 History gram/dose oral powder (Miralax) potassium chloride 20 mEq oral 20 meq PO QAM 01/07/24 01/07/24 History packet (Klor-Con) Past Med/Surg History Problem List Unresponsive episode Acute alcoholism (Acute) Hypothermia (Acute) Elevated lactic acid level (Acute) Hypoglycemia (Acute) AMS (altered mental status) (Acute) Acute hyperkalemia (Acute) Diabetes mellitus DKA (diabetic ketoacidosis) (Acute) Diabetes mellitus, new onset (Acute) AMS (altered mental status) (Acute) High anion gap metabolic acidosis Metabolic encephalopathy (Acute) IDALIA (acute kidney injury) Hyperosmolar hyperglycemic state (HHS) Intertrochanteric fracture of left femur Closed fracture of left hip (Acute) Alcohol abuse (Acute) Fall (Acute) Diabetes mellitus type 2 in nonobese Alcohol withdrawal (Acute) Hyponatremia Marijuana abuse Cocaine abuse Alcoholism Acute pancreatitis (Acute) Nausea & vomiting (Acute) Depression (Chronic) 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 Obesity GERD (gastroesophageal reflux disease) Surgical History History of mandibular surgery BROKEN JAW 1979 History of tooth extraction ALL TEETH REMOVED Complete below knee amputation of right lower extremity Family History Sister Family history of diabetes mellitus Brother Pancreatic carcinoma Social History Smoking Status: Heavy tobacco smoker Tobacco Type: Cigarettes Second Hand Exposure: No; Hx Alcohol Use: Yes Alcohol type: beer and hard liquor Alcohol Intake Frequency: 4 or More x per/Week Alcohol Intake Frequency Comment: 6 pack of beer + daily Hx Substance Use: Yes Last Used Substance: Unknown Preferred Language: Indonesian Communication Ability: Effective Medical Coding Technician Required: No Beliefs That Will Affect Care: None marital status: Single Current Living Situation: Family Current Living Situation Comment: Lives with brother Other Information That Helps Us Care for You: No Feels Safe at Home: Yes Assistive Devices: Cane and Prosthesis Assistive Devices Comment: Right leg prosthesis Review of Systems Review of Systems: All systems reviewed & are unremarkable except as noted in HPI & below Physical Exam Physical Exam: General- Not in distress Head- atraumatic Eyes- PERRL. ENT- oropharynx clear Neck- supple, no JVD. Lungs- clear to auscultation no wheezing or crackles. Heart- regular rhythm; no murmur, no gallop. Abdomen- normal bowel sounds, soft, nontender, no distension Extremities- s/p right BKA amputation. no pretibial edema, no erythema seen. Neuro- alert, oriented x 3; PERRL, no facial palsy; no dysarthria; Results & Data Results & Data Vital Signs (Past 12 Hours) Vital Signs Temp Pulse Pulse Resp BP BP Pulse Ox 01/06/24 23:17 36.4 C L 85 22 133/90 97 01/06/24 22:25 87 22 98 01/06/24 22:22 88 14 147/99 H 97 01/06/24 22:20 82 01/06/24 21:45 33.6 C L 79 22 147/99 H 97 O2 Del Method 01/06/24 23:17 Room Air 01/06/24 22:25 Room Air 01/06/24 22:22 Room Air 01/06/24 22:20 01/06/24 21:45 Room Air Diagnostic Findings Laboratory Results WBC 8.49 K/ul (4.8-10.8) 01/06/24 22:20 RBC 4.73 M/uL (4.70-6.10) 01/06/24 22:20 Hgb 13.7 g/dl (14.0-18.0) L 01/06/24 22:20 Hct 41.1 % (42.0-52.0) L 01/06/24 22:20 MCV 86.9 fL (80.0-100.0) 01/06/24 22:20 MCH 29.0 pg (25.0-34.0) 01/06/24 22:20 MCHC 33.3 g/dL (32.0-36.0) 01/06/24 22:20 RDW Std Deviation 40.5 fL (36.4-46.3) 01/06/24 22:20 RDW Coeff of Miguel 12.8 % (11.5-14.5) 01/06/24 22:20 Plt Count 240 K/uL (130-400) 01/06/24 22:20 MPV 9.1 fL (9.4-12.4) L 01/06/24 22:20 Immature Gran % (Auto) 0.5 % 01/06/24 22:20 Neut % (Auto) 75.4 % 01/06/24 22:20 Lymph % (Auto) 17.7 % 01/06/24 22:20 [place] % (Auto) 5.8 % 01/06/24 22:20 Eos % (Auto) 0.2 % 01/06/24 22:20 Baso % (Auto) 0.4 % 01/06/24 22:20 Neut # (Auto) 6.41 K/uL (1.40-6.50) 01/06/24 22:20 Lymph # (Auto) 1.50 K/uL (1.20-3.40) 01/06/24 22:20 [place] # (Auto) 0.49 K/uL (0.11-0.59) 01/06/24 22:20 Eos # (Auto) 0.02 K/uL (0.00-0.50) 01/06/24 22:20 Baso # (Auto) 0.03 K/uL (0.00-0.20) 01/06/24 22:20 Immature Gran # (Auto) 0.04 K/uL (0.01-0.20) 01/06/24 22:20 PT 10.7 Seconds (9.0-12.0) 01/06/24 22:20 INR 1.0 (0.9-1.1) 01/06/24 22:20 APTT 33 Seconds (21-31) H 01/06/24 22:20 PTT Ratio 1.2 01/06/24 22:20 VBG pH 7.23 (7.36-7.41) L 01/06/24 23:17 VBG pCO2 40 mmHg (38-50) 01/06/24 23:17 VBG pO2 42 mmHg 01/06/24 23:17 VBG HCO3 17 mmol/L 01/06/24 23:17 VBG O2 Saturation 70.2 % 01/06/24 23:17 VBG Base Excess -10.2 mEq/L 01/06/24 23:17 Sodium 135 mmol/L (136-145) L 01/06/24 22:20 Potassium 4.3 mmol/L (3.5-5.1) 01/06/24 22:20 Chloride 100 mmol/L (98-107) 01/06/24 22:20 Carbon Dioxide 20 mmol/L (21-32) L 01/06/24 22:20 Anion Gap 15 (3-11) H 01/06/24 22:20 BUN 21 mg/dl (6-23) 01/06/24 22:20 Creatinine 0.95 mg/dl (0.6-1.4) 01/06/24 22:20 Est Cr Clr Drug Dosing 82.6 ml/min 01/06/24 22:20 Est GFR ( Amer) 99.7 ml/min 01/06/24 22:20 Est GFR (Non-Af Amer) 86.1 ml/min 01/06/24 22:20 BUN/Creatinine Ratio 22.1 (10-20) H 01/06/24 22:20 Glucose 106 mg/dl (70-99(Fasting)) H 01/06/24 22:20 POC Glucose 134 mg/dl (70-99) H 01/06/24 21:57 Lactate 1.9 mmol/L (0.4-2.0) 01/07/24 01:27 Calcium 9.3 mg/dl (8.6-10.3) 01/06/24 22:20 Magnesium 2.1 mg/dl (1.7-2.4) 01/06/24 22:20 Total Bilirubin 0.5 mg/dl (0.2-1.0) 01/06/24 22:20 Direct Bilirubin 0.1 mg/dl (0-0.2) 01/06/24 22:20 AST 16 U/L (13-39) 01/06/24 22:20 ALT 10 U/L (7-52) 01/06/24 22:20 Alkaline Phosphatase 93 U/L (34-104) 01/06/24 22:20 Troponin I High Sens 3.7 pg/ml (0-20) 01/06/24 22:20 Total Protein 8.5 gm/dl (6.0-8.3) H 01/06/24 22:20 Albumin 4.8 gm/dl (3.4-5.0) 01/06/24 22:20 Procalcitonin < 0.02 ng/ml (0-0.5) 01/06/24 22:20 Urine Color Dark Yellow 01/06/24 23:05 Urine Appearance Clear (Clear) 01/06/24 23:05 Urine pH 5.0 (4.5-7.5) 01/06/24 23:05 Ur Specific [place] 1.025 (1.000-1.030) 01/06/24 23:05 Urine Protein 2+ (Negative) H 01/06/24 23:05 Urine Glucose (UA) 1+ (Negative) H 01/06/24 23:05 Urine Ketones 1+ (Negative) H 01/06/24 23:05 Urine Blood Negative (Negative) 01/06/24 23:05 Urine Nitrite Negative (Negative) 01/06/24 23:05 Urine Bilirubin Negative (Negative) 01/06/24 23:05 Urine Urobilinogen Negative (Negative) 01/06/24 23:05 Ur Leukocyte Esterase Negative (Negative) 01/06/24 23:05 Urine WBC (Auto) 0-5 /hpf (0-5) 01/06/24 23:05 Urine RBC (Auto) 0-2 /hpf (0-2) 01/06/24 23:05 U Hyaline Cast (Auto) >20 /lpf (0-2) H 01/06/24 23:05 U Epithel Cells (Auto) 0-2 /hpf (0-2) 01/06/24 23:05 Urine Bacteria (Auto) None Seen (None Seen) 01/06/24 23:05 Hyaline Casts Present /lpf (None Presnt) A 01/06/24 23:05 Urine Opiates Screen Neg (Neg) 01/06/24 23:05 Ur Methadone, Qual Neg (Neg) 01/06/24 23:05 Urine Fentanyl Screen Neg (Neg) 01/06/24 23:05 Urine Barbiturates Neg (Neg) 01/06/24 23:05 Ur Phencyclidine (PCP) Neg (Neg) 01/06/24 23:05 U Amphetamin/Meth Scrn Neg (Neg) 01/06/24 23:05 MDMA (Ecstasy) Screen Neg (Neg) 01/06/24 23:05 U Benzodiazepines Scrn Neg (Neg) 01/06/24 23:05 Ur Cocaine Metabolite Neg (Neg) 01/06/24 23:05 U Marijuana (THC) Screen Pos (Neg) H 01/06/24 23:05 Ethyl Alcohol mg/dL 59.7 mg/dl (<10.0) H 01/06/24 22:[address] 01/06/24 22:24 Exam(s): CT HEAD Without Contrast EXAM: CT Head Without Intravenous Contrast CLINICAL HISTORY: Reason for exam: ams. TECHNIQUE: Axial computed tomography images of the head/brain without intravenous contrast . No reformatted images.. CTDI is 36.55 mGy and DLP is 625.8 mGy-cm. Automated exposure control was utilized for the study. A dose lowering technique was utilized adhering to the principles of ALARA. COMPARISON: No relevant prior studies available. FINDINGS: Brain: No hemorrhage. No apparent acute cortical infarct. No mass lesion or midline shift. Senescent changes with small vessel disease. Ventricles: No hydrocephalus. Bones/joints: No acute fracture. Soft tissues: Unremarkable. Sinuses: No acute sinusitis. Mastoid air cells: No mastoid effusion. Orbits: No acute process. IMPRESSION: No acute intracranial process. Electronically signed by: Kalpesh Lindsey M.D. 01/06/24 23:24 PM ECG Additional Comments: ECG. Atrial fibrillation with rate of 81. Nonspecific ST abnormality. QTc 487. Code Status & VTE Plan VTE Prophylaxis Plan VTE Prophylaxis will be ordered: Yes
[2024-01-07] MEDS ORDERED: GLUCAGON FOR INJ 1 MG VIAL SQ PRN (04:10)
[2024-01-07] MEDS ORDERED: LORazepam 0.5 MG in SYRINGE 0.25 ML IV PRN (04:10)
[2024-01-07] MEDS ORDERED: GLUCOSE 40% GEL 15 GM TUBE PO PRN (04:10)
[2024-01-07] MEDS ORDERED: PHARMACY GLYCEMIC MGMT CONSULT PRN (04:10)
[2024-01-07] MEDS ORDERED: ACETAMINOPHEN 325 MG TAB PO PRN (04:10)
[2024-01-07] MEDS ORDERED: DEXTROSE 50% 50 ML SYRINGE IV PRN (04:10)
[2024-01-07] MEDS ORDERED: NITROGLYCERIN SL 0.4 MG/TAB TAB SL PRN (04:10)
[2024-01-07] MEDS ORDERED: GLUCOSE 10 TAB/TUBE PO PRN (04:10)
[2024-01-07] MEDS ORDERED: POLYETHYLENE (MIRALAX) 17 GM PACK PO PRN ×2 (04:10)
[2024-01-07] MEDS ORDERED: CARBOHYDRATES FOR HYPOGLYCEMIA PO PRN (04:10)
[2024-01-07] MEDS: D5W AND NSS 1,000 ML IV SCH (04:54)
[2024-01-07] MEDS: FOLIC ACID 1 MG in SYRINGE 9.8 ML IV STA (05:07)
[2024-01-07] MEDS: THIAMINE HCL 100 MG in SYRINGE 9 ML IV STA (05:07)
[2024-01-07] MEDS: MULTI-VITAMIN INFUSION 10 ML, THIAMINE HCL 100 MG, FOLIC ACID 1 MG in SODIUM CHLORIDE 0... IV ONE (05:07)
[2024-01-07 05:34] LABS: Base Excess ABG -7.3 mEq/L (-9-1.8); HCO3 ABG 17 mmol/L (19-24); Oxygen Saturation ABG 98.7 % (90-95); PCO2 ABG 30 mmHg (35-46); PO2 ABG 90 mmHg (80-95); pH ABG 7.36 (7.35-7.45)
[2024-01-07 05:36] LABS: Allen Test Pos (Pos)
[2024-01-07 06:14] LABS: Troponin I High Sensitivity 4.1 pg/ml (0-20)
[2024-01-07] MEDS: INSULIN ASPART PER UNIT CHARGE SC SCH (06:16)
[2024-01-07 06:24] LABS: Thyroid Stimulating Hormone 0.356 uIu/ml (0.300-4.500)
[2024-01-07 06:49] LABS: Basophils # (auto) 0.02 K/uL (0.00-0.20); Basophils % (auto) 0.2 %; Eosinophils # (auto) 0.01 K/uL (0.00-0.50); Eosinophils % (auto) 0.1 %; Hematocrit (blood only) 37.9 % (42.0-52.0); Hemoglobin 12.5 g/dl (14.0-18.0); Immature Granulocytes # (auto) 0.03 K/uL (0.01-0.20); Immature Granulocytes % (auto) 0.3 %; Lymphocytes % (auto) 15.7 %; Mean Corpuscular Hemoglobin 28.7 pg (25.0-34.0); Mean Corpuscular Volume 87.1 fL (80.0-100.0); Mean Platelet Volume 9.1 fL (9.4-12.4); Monocytes # (auto) 0.97 K/uL (0.11-0.59); Monocytes % (auto) 10.9 %; Neutrophils # (auto) 6.51 K/uL (1.40-6.50); Neutrophils % (auto) 72.8 %; Platelet Count 202 K/uL (130-400); RDW Coefficient of Variation 12.8 % (11.5-14.5); RDW Standard Deviation 40.5 fL (36.4-46.3); Red Blood Count 4.35 M/uL (4.70-6.10); White Blood Count 8.94 K/ul (4.8-10.8)
[2024-01-07 07:37] LABS: Estimated Average Glucose 160 mg/dl; Hemoglobin A1C 7.2 % (4.5-5.6)
[2024-01-07] MEDS: DULoxetine HCL 20 MG CAP PO SCH (08:41)
[2024-01-07] MEDS: carvediloL 3.125 MG TAB PO SCH (08:41)
[2024-01-07] MEDS: POTASSIUM CHLORIDE PWD 20 MEQ PACK PO SCH (08:42)
[2024-01-07] MEDS: CEROVITE ADV FORMULA TAB PO SCH (08:42)
[2024-01-07] MEDS: FOLIC ACID 1 MG TAB PO SCH (08:42)
--- NOTE | 2024-01-07 08:42 | XRay Report ---
XR chest 1V portable CLINICAL HISTORY: Sepsis TECHNIQUE: Single frontal radiograph of the chest was obtained. Comparison: Comparison is made to chest radiograph 06/02/2020 FINDINGS: No lines and tubes are seen. The cardiomediastinal silhouette is normal. The lungs are clear. No evid ence of pleural effusion or pneumothorax. IMPRESSION: No acute abnormalities and in particular no radiographic evidence of pneumonia. ACT 112: Negative or not required by law. Electronically signed by: Nithin Mckeon M.D. 01/07/2024 8:41 AM
[2024-01-07] MEDS: THIAMINE HCL 100 MG in SYRINGE 9 ML IV SCH (08:43)
[2024-01-07] MEDS: ENOXAPARIN INJ 40 MG/0.4 ML SYR SQ SCH (08:44)
[2024-01-07] MEDS ORDERED: FOLIC ACID 1 MG in SYRINGE 9.8 ML IV SCH (09:00)
[2024-01-07] MEDS: LANTUS PER UNIT CHARGE SC SCH (09:35)
[2024-01-07 09:54] LABS: Potassium 4.8 mmol/L (3.5-5.1)
[2024-01-07 09:55] LABS: BUN Creatinine Ratio 23.7 (10-20); Calcium 8.5 mg/dl (8.6-10.3); Creatinine Clr Calc Pharmacy 84.4 ml/min; Est GFR (African American) 102.3; Est GFR (Non-African American) 88.3; Magnesium 1.7 mg/dl (1.7-2.4)
--- NOTE | 2024-01-07 10:11 | Cardiology Consultation ---
Date of Consultation January 07, 2024 Assessment & Plan (1) Unresponsive episode: (2) Acute alcoholism: (3) Hypothermia: (4) Elevated lactic acid level: (5) Hypoglycemia: (6) AMS (altered mental status): (7) New onset atrial fibrillation: Plan Impression: 1. New Onset AFIB RVR -CHADSVASC 2 (DM2, HTN) 2.Unresponsive Episode 3.Hyponatremia 4. ETOH Abuse 5. Tobacco Use Plan: 01/07/24: -New onset atrial fibrillation likely alcohol induced. We discussed the pathophysiology and treatment of atrial fibrillation. Fortunately he is back in a NSR. His CHADSVASC score is 2. At this time I do not recommend oral anticoagulation due to his heavy ETOH use. Stroke vs bleeding risk discussed. -Labs reviewed without evidence of significant anemia, infection, or thyroid abnormalities. Recommend outpatient sleep study evaluation for FLORA. He will need Cardiology follow up as an outpatient. -Plan to obtain an echocardiogram today. -Continue Coreg 3.125 mg BID for rate control. -Unresponsive episode secondary to hypoglycemia. His tox screen was + THC. Imaging of the brain has been unremarkable. Case discussed with Dr. Henry I spent a total of 50 minutes on the date of service in preparation, delivery, and documentation of the care provided to this patient, excluding any time spent in the performance of separately billed services. BRENTON Coombs Department of Cardiology, [facility] This chart was completed in part utilizing Speech Voice Recognition Software. Grammatical errors, random word insertions, pronoun errors, and incomplete sentences are an occasional consequence of this system due to software li mitations, ambient noise, and hardware issues. Any formal questions or concerns about the content, text, or information contained within the body of this dictation should be directly addressed to the provider for clarification. Supervising Physician Co-Signing Physician Notes Attending attestation: Case reviewed with the advanced practitioner. I have personally performed a history and physical examination on the patient. I have reviewed the advanced practitioner's documentation on the date of service referenced in note, and I agree with, and take responsibility for the plan of care. Subjective: Patient denies complaint at the time of my assessment. Exam: Cardiovascular regular rhythm, no murmurs, no edema Data: Review of telemetry reveals that patient converted from atrial fibrillation to sinus rhythm on 01/07/2024 at 3:34 AM Echocardiogram performed today and interpret independently: Mild concentric left ventricular hypertrophy Normal LV wall motion and LVEF in the range of 55 to 60%, right ventricular chamber size and systolic function are normal No significant valvular heart disease Impression/ Plan: Patient presented for unresponsive episode related to hypoglycemia. He was found to be in atrial fibrillation and converted to sinus rhythm spontaneously at 3:34 AM on 01/07/2024. Recommend continuing prior to hospital treatment with carvedilol 3.25 mg twice daily. Patient felt to not be a candidate for long-term anticoagulation due to bleeding risks with noted use of abundance of alcohol. No further cardiac testing felt to be indicated. I spent a total of 20 minutes coordinating, documenting, and providing care for this patient excluding time spent in the performance of separately billed services or time spent by another provider. Everton Henry DO History of Present Illness Reason for Consultation: Unresponsive, AFIB Requesting Physician: Malcom Murrieta MD Attending Physician: Dr. 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 Patient was found unresponsive by his brother. EMS called and treated patient with dextrose, which improved mental status. He had been drinking heavily. Only had breakfast to eat yesterday and is unsure how much insulin he had taken. In the ED he was hypothermic, so bairhugger applied. It should be noted that this patient was admitted in May with similar symptoms with a glucose of 11. EKG in the ED showed new onset atrial fibrillation with controlled rates. Patient is resting in bed comfortably this morning. Reports drinking 1 pint of [place] Whiskey per week and 40 oz of beer per day (Kurtis 45 or [place] Light). Last drink was yesterday. Lives at home with his brother. Does not work. Denies illicit drug use. Smoking 1 PPD. States he takes all of his medications as prescribed. Denies a family history of heart disease. Allergies Allergy/AdvReac Type Severity Reaction Status Date / Time No Known Allergies Allergy Verified 01/07/24 00:13 Home Medications Medication Instructions Recorded Confirmed Type carvedilol 3.125 mg tablet 3.125 mg PO BID 01/07/24 01/07/24 History duloxetine 20 mg capsule,delayed 20 mg PO QAM 01/07/24 01/07/24 History release folic acid 1 mg tablet 1 mg PO QAM 01/07/24 01/07/24 History insulin aspart U-100 100 unit/mL 4 unit subcut AC 01/07/24 01/07/24 History (3 mL) subcutaneous pen insulin glargine 100 unit/mL (3 20 unit subcut QAM 01/07/24 01/07/24 History mL) subcutaneous pen (Lantus Solostar U-100 Insulin) metformin 500 mg tablet,extended 1,000 mg PO DIRECTED 01/07/24 01/07/24 History release 24 hr polyethylene glycol 3350 17 17 g PO DAILY PRN Constipation 01/07/24 01/07/24 History gram/dose oral powder (Miralax) potassium chloride 20 mEq oral 20 meq PO QAM 01/07/24 01/07/24 History packet (Klor-Con) Patient History Medical History Encephalopathy Pancreatitis, recurrent Hx of hematuria Hx of pancreatitis Alcohol dependence a fifth of liquor and 12 beers daily for yrs. Obesity GERD (gastroesophageal reflux disease) Surgical History History of mandibular surgery BROKEN JAW 1978 History of tooth extraction ALL TEETH REMOVED Complete below knee amputation of right lower extremity Family History Sister Family history of diabetes mellitus Brother Pancreatic carcinoma Social History Smoking Status: Heavy tobacco smoker Tobacco Type: Cigarettes Second Hand Exposure: No; Hx Alcohol Use: Yes Alcohol type: beer and hard liquor Alcohol Intake Frequency : 4 or More x per/Week Alcohol Intake Frequency Comment: 6 pack of beer + daily Hx Substance Use: Yes Last Used Substance: Unknown Preferred Language: Lao Communication Ability: 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 Beliefs That Will Affect Care: None marital status: Single Current Living Situation: Family Current Living Situation Comment: Lives with brother Other Information That Helps Us Care for You: No Feels Safe at Home: Yes Assistive Devices: Cane and Prosthesis Assistive Devices Comment: Right leg prosthesis Review of Systems Review of Systems: All systems reviewed & are unremarkable except as noted in HPI & below Physical Exam Constitutional: WD/WN, vitals as above + disheveled Respiratory: normal respiratory effort, lungs clear to auscultation normal respiratory effort Cardiovascular: RRR, no murmur, no edema Rate/Rhythm: regular rate and regular rhythm Extremities: no edema Neurologic: PERRL, EOMI, accommodation nl, no face palsy, no dysarthria Psychiatric: A+Ox3, euthymic affect Results & Data Vital Signs (Past 12 Hours) Vital Signs Temp Pulse Pulse Resp BP Pulse Ox Pulse Ox 01/07/24 07:01 82 01/07/24 06:21 85 16 143/99 H 96 01/07/24 05:31 92 H 16 148/101 H 100 01/07/24 04:10 97 01/07/24 04:05 96 H 19 118/95 97 01/07/24 04:00 98 H 16 118/95 97 01/07/24 03:27 36.8 C 92 H 16 126/97 97 01/07/24 02:15 92 H 01/07/24 02:00 36.4 C L 89 23 126/93 96 01/07/24 00:30 87 19 147/99 H 97 01/06/24 23:30 78 21 142/91 H 96 01/06/24 23:17 36.4 C L 85 22 133/90 97 01/06/24 22:25 87 22 98 01/06/24 22:22 88 14 147/99 H 97 01/06/24 22:20 82 O2 Del Method O2 Del Method 01/07/24 07:01 01/07/24 06:21 Room Air 01/07/24 05:31 Room Air 01/07/24 04:10 Room Air 01/07/24 04:05 Room Air 01/07/24 04:00 Room Air 01/07/24 03:27 01/07/24 02:15 01/07/24 02:00 Room Air 01/07/24 00:30 Room Air 01/06/24 23:30 Room Air 01/06/24 23:17 Room Air 01/06/24 22:25 Room Air 01/06/24 22:22 Room Air 01/06/24 22:20 Laboratory Results Cardiac Enzymes 01/06/24 01/07/24 Range/Units 22:20 05:34 AST 16 (13-39) U/L Troponin I High Sens 3.7 4.1 (0-20) pg/ml Coagulation 01/06/24 Range/Units 22:20 PT 10.7 (9.0-12.0) Seconds APTT 33 H (21-31) Seconds CBC 01/06/24 01/07/24 Range/Units 22:20 05:34 WBC 8.49 8.94 (4.8-10.8) K/ul RBC 4.73 4.35 L (4.70-6.10) M/uL Hgb 13.7 L 12.5 L (14.0-18.0) g/dl Hct 41.1 L 37.9 L (42.0-52.0) % Plt Count 240 202 (130-400) K/uL Neut # (Auto) 6.41 6.51 H (1.40-6.50) K/uL Lymph # (Auto) 1.50 1.40 (1.20-3.40) K/uL [place] # (Auto) 0.49 0.97 H (0.11-0.59) K/uL Eos # (Auto) 0.02 0.01 (0.00-0.50) K/uL Baso # (Auto) 0.03 0.02 (0.00-0.20) K/uL Comprehensive Metabolic Panel 01/06/24 01/07/24 Range/Units 22:20 05:34 Sodium 135 L 132 L (136-145) mmol/L Potassium 4.3 4.8 (3.5-5.1) mmol/L Chloride 100 104 (98-107) mmol/L Carbon Dioxide 20 L 20 L (21-32) mmol/L BUN 21 22 (6-23) mg/dl Creatinine 0.95 0.93 (0.6-1.4) mg/dl Glucose 106 H 148 H (70-99(Fasting)) mg/dl Calcium 9.3 8.5 L (8.6-10.3) mg/dl Direct Bilirubin 0.1 (0-0.2) mg/dl AST 16 (13-39) U/L ALT 10 (7-52) U/L Alkaline Phosphatase 93 (34-104) U/L Total Protein 8.5 H (6.0-8.3) gm/dl Albumin 4.8 (3.4-5.0) gm/dl Intake and Output 01/06/24 01/07/24 01/07/24 22:59 06:59 14:59 Intake Total 3900 / 3900 1011.2 / 1011.2 Output Total 700 / 700 Balance 3200 / 3200 1011.2 / 1011.2 Intake: IV 3100 / 3100 1011.2 / 1011.2 Multi-Vitamin Infusion 10 ml 1011.2 / 1011.2 Thiamine HCl 100 mg Folic Acid 1 mg In Sodium Chloride 0.9% 1, 000 ml @ 500 mls/hr IV .Q2H2M ONE Rx#:[id number] Piperacillin/Tazobactam 4.5 gm 100 / 100 In 100 ml @ 200 mls/hr IV NOW ONE Rx#:[id number] Sodium Chloride 0.9% 1,000 ml @ 3000 / 3000 999 mls/hr IV .Q1H1M RONEY Rx#: [id number] Oral 800 / 800 Output: Urine 700 / 700 Other: # Unmeasured Voids 1 0 Weight 79.7 kg 79.7 kg Weight Measurement Method Built in [facility] Built in [facility] Diagnostic Findings EKG 01/06/2024 AFIB 81 bpm Echo 12/09/2017 Sinus tachycardia at 144 bpm noted during echocardiogram Left ventricle is hyperdynamic. No regional wall motion abnormalities noted. LV ejection fraction equals greater than 70%. The right ventricle is normal size and function. There is no significant valvular disease.
--- NOTE | 2024-01-07 15:01 | Pharmacy Report ---
Pharmacy Glycemic Short Note 2 - Date of Service January 07, 2024 - Glycemic Short BSG Results (Last 24 hours): 01/06/24 01/06/24 01/07/24 21:57 22:20 02:31 Glucose 106 H POC Glucose 134 H 99 01/07/24 01/07/24 01/07/24 04:53 05:34 06:13 Glucose 148 H POC Glucose 190 H 138 H 01/07/24 01/07/24 08:39 12:20 Glucose POC Glucose 111 H 194 H OUTPATIENT ANTIDIABETIC REGIMEN: * Novolog 4 units AC * Lantus 20 units QAM * Metformin ER 1000 mg PO BID HbA1c = 7.2% on 01/07/24 ASSESSMENT: * 63 y/o M admitted for unresponsiveness yesterday. He has history of Type 2 diabetes managed on basal and bolus insulins at home. Also has history of hypoglycemic episodes. * On admission, BSGs were below goal. Fasting today was 138 mg/dl. Home basal dose was reduced by 20% and 14 units of Lantus was given this morning. * Pre-lunch BSG trended up to 194 mg/dl. Novolog parameters were initiated this morning based on stress of 2. * Since history of hypoglycemic episodes noted, basal dose reduced further for tomorrow. PLAN FOR INPATIENT GLYCEMIC CONTROL: * Hold outpatient oral diabetes medications * Basal insulin * Lantus 14 units SQ today x1 then * Lantus 10 units SQ QAM * Bolus insulin * NovoLog per scale ACHS or Q6hrs while NPO * Goal Range: Low 110 mg/dL - High 140 mg/dL * Correction Factor: 30 mg/dL/unit * Nutritional / Prandial insulin per carb ratio of 1 unit per 10 grams CHO consumed
--- NOTE | 2024-01-07 15:38 | Hospitalist Progress Note ---
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 As per ER when his brother checked on him he was found unresponsive so called EMS. For EMS glucose was low and dextrose was given and patient improved. Currently alert and oriented x 3. Patient states he drinks 1 pint of whiskey couple of times a week. Last time he drank was yesterday. He states checks his sugars daily and they were running okay. He takes his long-acting insulin 20 units daily and sh ort acting insulin5 units with meals. He was also found to be hypothermic and currently on Flip hugger. Denies any headache. No blurred vision , no runny nose or sore throat. No fevers. No chest pain or shortness of breath. No nausea, no abdominal pain. Normal bowel and bladder movements as per patient. Hemodynamics are okay. Patient was admitted in the hospital in end of May 2023 with similar episode and at the time his glucose was found to be 11 ,during that admission he was also treated for acute respiratory failure with hypoxia secondary to pneumonia and also treated for hypertensive urgency. Unresponsive episode-With hypothermia and hypoglycemia Documented low blood sugar before admission No signs and or symptoms of infection Received his dose of intravenous Zosyn in the emergency room and that was discontinued He did have sweating but did not lose any consciousness Has been feeling better since admission and does not have any more episodes of low blood sugar Will observe in the hospital and likely discharge tomorrow Atrial fibrillation with RVR Did not have any chest pain and/or palpitation Serial cardiac enzymes are unremarkable and doubt any ACS Reverted to sinus rhythm He will not be given any anticoagulation given alcoholism and reversion of A-fib to sinus rhythm Appreciate cardiology input and recommendation Likely discharge tomorrow Type 2 diabetes on insulin Presented with hypoglycemic episode with near loss of consciousness Hold oral medications Received intravenous dextrose on presentation Blood sugar has been stable since admission HbA1c level was greater than 16.9 on 02/12/2023 and was 7.3 on 06/09/2023 Insulin doses may need to be adjusted Hemoglobin A1c is minimally high at 7.2 Appreciate glycemic control by the pharmacist Hypertension on Coreg Alcoholism No signs and or symptoms of withdrawal Has been on intravenous thiamine and folic acid and received banana bag Will continue IV Ativan as needed Strongly advised to quit drinking Hypokalemia on potassium supplements patient also had a history of hyperkalemia we will follow labs DVT prophylaxis Lovenox disposition telemetry full code. (2) New onset atrial fibrillation: (3) Acute alcoholism: (4) Hypothermia: (5) Hypoglycemia: Admission and Anticipated Discharge Date Admission Date: January 07, 2024 Subjective 01/07/2024 The patient was seen and examined in the emergency room He was admitted with an unresponsive episode but he denies to have any loss of consciousness He was noted to have very hypoglycemic and new onset A-fib with RVR on admission He has been feeling much better and wants to go home Review of Systems Review of Systems: All systems reviewed and are unremarkable except as noted below Physical Exam Physical Exam: Lying in bed without any acute distress Constitutional: well developed and well nourished; not ill appearing Eyes: PERRL, conjunctivae normal, anicteric sclerae ENMT: external ear and nose normal, oropharynx normal Neck: trachea midline, no thyromegaly Respiratory: no respiratory distress Auscultation: lungs clear to auscultation bilaterally Cardiovascular: Rate/Rhythm: regular rate and regular rhythm; not tachycardic Heart Sounds: normal S1 and normal S2; no murmur Extremities: no edema Gastrointestinal (Abdomen): Inspection/Auscultation: normal bowel sounds; abdomen not distended Percussion/Palpation: abdomen soft; abdomen nontender Musculoskeletal: No acute arthritis involving any of the joint Neurologic: normal touch/pain/proprioception and moves all extremities; no focal motor deficits Psychiatric: A+Ox3, euthymic affect Lymphatic: no cervical or axillary lymphadenopathy Results & Data Results & Data Vital Signs (Past 12 Hours) Vital Signs Pulse Pulse Resp BP Pulse Ox Pulse Ox O2 Del Method 01/07/24 15:12 66 01/07/24 13:00 71 19 146/94 H 98 Room Air 01/07/24 12:00 72 17 147/98 H 98 Room Air 01/07/24 11:00 18 141/93 H 97 Room Air 01/07/24 10:00 81 20 134/89 96 Room Air 01/07/24 09:00 79 21 145/106 H 97 Room Air 01/07/24 07:01 82 01/07/24 06:21 85 16 143/99 H 96 Room Air 01/07/24 05:31 92 H 16 148/101 H 100 Room Air 01/07/24 04:10 97 01/07/24 04:05 96 H 19 118/95 97 Room Air 01/07/24 04:00 98 H 16 118/95 97 Room Air O2 Del Method 01/07/24 15:12 01/07/24 13:00 01/07/24 12:00 01/07/24 11:00 01/07/24 10:00 01/07/24 09:00 01/07/24 07:01 01/07/24 06:21 01/07/24 05:31 01/07/24 04:10 Room Air 01/07/24 04:05 01/07/24 04:00 Laboratory Results Short CBC 01/06/24 01/07/24 Range/Units 22:20 05:34 WBC 8.49 8.94 (4.8-10.8) K/ul Hgb 13.7 L 12.5 L (14.0-18.0) g/dl Hct 41.1 L 37.9 L (42.0-52.0) % Plt Count 240 202 (130-400) K/uL BMP 01/06/24 01/07/24 22:20 05:34 Sodium 135 L 132 L Potassium 4.3 4.8 Chloride 100 104 Carbon Dioxide 20 L 20 L BUN 21 22 Creatinine 0.95 0.93 Glucose 106 H 148 H Calcium 9.3 8.5 L Liver Function 01/06/24 Range/Units 22:20 Total Bilirubin 0.5 (0.2-1.0) mg/dl Direct Bilirubin 0.1 (0-0.2) mg/dl AST 16 (13-39) U/L ALT 10 (7-52) U/L Alkaline Phosphatase 93 (34-104) U/L Albumin 4.8 (3.4-5.0) gm/dl Urine 01/06/24 Range/Units 23:05 Urine Color Dark Yellow Urine Appearance Clear (Clear) Urine pH 5.0 (4.5-7.5) Ur Specific [place] 1.025 (1.000-1.030) Urine Protein 2+ H (Negative) Urine Glucose (UA) 1+ H (Negative) Medications Administered Current Inpatient Medications Acetaminophen (Acetaminophen 325 Mg Tab) 650 mg PO Q4H PRN PRN Reason: Pain or Fever Stop: 02/06/24 04:09 Carvedilol (Carvedilol 3.125 Mg Tab) 3.125 mg PO BID [facility] Stop: 02/06/24 08:59 Last Admin: 01/07/24 08:41 Dose: 3.125 mg Dextrose (Dextrose 50% 50 Ml Syringe) 25 - 50 ml IV UD PRN; Protocol PRN Reason: Hypoglycemia Protocol Stop: 02/06/24 04:09 Duloxetine HCl (Duloxetine Hcl 20 Mg Cap) 20 mg PO QAM [facility] Stop: 02/06/24 08:59 Last Admin: 01/07/24 08:41 Dose: 20 mg Enoxaparin Sodium (Enoxaparin Inj 40 Mg/0.4 Ml Syr) 40 mg SQ Q24H [facility] Stop: 02/06/24 08:59 Last Admin: 01/07/24 08:44 Dose: 40 mg Folic Acid (Folic Acid 1 Mg Tab) 1 mg PO QAM [facility] Stop: 02/06/24 08:59 Last Admin: 01/07/24 08:42 Dose: 1 mg Glucagon (Glucagon For Inj 1 Mg Vial) 1 mg SQ UD PRN; Protocol PRN Reason: Hypoglycemia Protocol Stop: 02/06/24 04:09 Glucose (Glucose 40% Gel 15 Gm Tube) 15 - 30 gm PO UD PRN; Protocol PRN Reason: Hypoglycemia Protocol Stop: 02/06/24 04:09 Glucose (Glucose 10 Tab/Tube) 4 - 8 tab PO UD PRN; Protocol PRN Reason: Hypoglycemia Treatment Stop: 02/06/24 04:09 Dextrose/Sodium Chloride (D5w And Nss) 1,000 mls @ 75 mls/hr IV .[id number] [facility] Stop: 02/06/24 04:09 Last Admin: 01/07/24 04:54 Dose: 75 mls/hr Thiamine HCl 100 mg/ Syringe 10 mls @ 2 mls/min IV QAM [facility] Stop: 02/06/24 08:59 Last Admin: 01/07/24 08:43 Dose: 2 mls/min Lorazepam 0.5 mg/ Syringe 0.5 mls @ 2 mls/min IV Q4H PRN PRN Reason: Anxiety/Agitation Stop: 02/06/24 04:09 Insulin Aspart (Insulin Aspart Per Unit Charge) 0 units SC ACHS [facility] Stop: 02/06/24 05:59 Last Admin: 01/07/24 13:34 Dose: 3 units Insulin Glargine (Lantus Per Unit Charge) 10 units SC QAM [facility] Stop: 02/07/24 08:59 Miscellaneous (Carbohydrates For Hypoglycemia ) 15 - 30 gm PO UD PRN PRN Reason: Hypoglycemia Protocol Stop: 02/06/24 04:09 Miscellaneous Information (Pharmacy Glycemic Mgmt Consult) 1 each N/A UD PRN PRN Reason: Consult Stop: 02/06/24 04:09 Multivitamins/Minerals (Cerovite Adv Formula Tab) [address] [facility] Stop: 02/06/24 08:59 Last Admin: 01/07/24 08:42 Dose: 1 tab Nitroglycerin (Nitroglycerin Sl 0.4 Mg/Tab Tab) 0.4 mg SL Q5M PRN PRN Reason: Chest Pain Stop: 02/06/24 04:09 Polyethylene Glycol (Polyethylene (Miralax) 17 Gm Pack) 17 gm PO DAILY PRN PRN Reason: Constipation Stop: 02/06/24 04:09 Potassium Chloride (Potassium Chloride Pwd 20 Meq Pack) [facility] Stop: 02/06/24 08:59 Last Admin: 01/07/24 08:42 Dose: 20 meq
[2024-01-08 05:07] LABS: Basophils # (auto) 0.02 K/uL (0.00-0.20); Basophils % (auto) 0.3 %; Eosinophils # (auto) 0.08 K/uL (0.00-0.50); Eosinophils % (auto) 1.3 %; Hematocrit (blood only) 33.2 % (42.0-52.0); Immature Granulocytes # (auto) 0.01 K/uL (0.01-0.20); Immature Granulocytes % (auto) 0.2 %; Lymphocytes # (auto) 2.14 K/uL (1.20-3.40); Lymphocytes % (auto) 35.3 %; Mean Corpuscular Hemoglobin 28.7 pg (25.0-34.0); Mean Corpuscular Hgb Conc 33.1 g/dL (32.0-36.0); Mean Corpuscular Volume 86.7 fL (80.0-100.0); Mean Platelet Volume 9.2 fL (9.4-12.4); Monocytes # (auto) 0.76 K/uL (0.11-0.59); Monocytes % (auto) 12.5 %; Neutrophils # (auto) 3.06 K/uL (1.40-6.50); Neutrophils % (auto) 50.4 %; Platelet Count 184 K/uL (130-400); RDW Coefficient of Variation 12.8 % (11.5-14.5); RDW Standard Deviation 40.2 fL (36.4-46.3); Red Blood Count 3.83 M/uL (4.70-6.10); White Blood Count 6.07 K/ul (4.8-10.8)
[2024-01-08 05:12] LABS: BUN Creatinine Ratio 15.1 (10-20); Calcium 8.5 mg/dl (8.6-10.3); Creatinine Clr Calc Pharmacy 107.5 ml/min; Est GFR (Non-African American) 100.1 ml/min; Magnesium 1.6 mg/dl (1.7-2.4); Phosphorus 2.3 mg/dl (2.5-4.9)
[2024-01-08] MEDS ORDERED: SODIUM PHOSPHATE 3 MMOL/1 ML 5 ML VIAL IV ONE (08:20)
[2024-01-08] MEDS: MAGNESIUM SULFATE / D5W 1 GM/100 ML BAG IV ONE (08:40)
[2024-01-08] MEDS: LANTUS PER UNIT CHARGE SC SCH (08:40)
[2024-01-08] MEDS: SODIUM PHOSPHATE 20 MMOL in SODIUM CHLORIDE 0.9% 500 ML IV ONE (10:17)
[2024-01-08] MEDS: carvediloL 3.125 MG TAB PO ONE (13:25)
--- NOTE | 2024-01-08 16:16 | Hospitalist Progress Note ---
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 As per ER when his brother checked on him he was found unresponsive so called EMS. For EMS glucose was low and dextrose was given and patient improved. Currently alert and oriented x 3. Patient states he drinks 1 pint of whiskey couple of times a week. Last time he drank was yesterday. He states checks his sugars daily and they were running okay. He takes his long-acting insulin 20 units daily and sh ort acting insulin5 units with meals. He was also found to be hypothermic and currently on Flip hugger. Denies any headache. No blurred vision , no runny nose or sore throat. No fevers. No chest pain or shortness of breath. No nausea, no abdominal pain. Normal bowel and bladder movements as per patient. Hemodynamics are okay. Patient was admitted in the hospital in end of May 2023 with similar episode and at the time his glucose was found to be 11 ,during that admission he was also treated for acute respiratory failure with hypoxia secondary to pneumonia and also treated for hypertensive urgency. Unresponsive episode-With hypothermia and hypoglycemia Documented low blood sugar before admission No signs and or symptoms of infection Received his dose of intravenous Zosyn in the emergency room and that was discontinued He did have sweating but did not lose any consciousness Has been feeling better since admission and does not have any more episodes of low blood sugar Will observe in the hospital and likely discharge tomorrow No more episodes of unresponsiveness and does not have any more hypoglycemic episode Likely discharge tomorrow Atrial fibrillation with RVR Did not have any chest pain and/or palpitation Serial cardiac enzymes are unremarkable and doubt any ACS Reverted to sinus rhythm He will not be given any anticoagulation given alcoholism and reversion of A-fib to sinus rhythm Appreciate cardiology input and recommendation Likely discharge tomorrow Rate is controlled and he is in sinus rhythm Type 2 diabetes on insulin Presented with hypoglycemic episode with near loss of consciousness Hold oral medications Received intravenous dextrose on presentation Blood sugar has been stable since admission HbA1c level was greater than 16.9 on 02/12/2023 and was 7.3 on 06/09/2023 Insulin doses may need to be adjusted Hemoglobin A1c is minimally high at 7.2 Appreciate glycemic control by the pharmacist Hypertension on Coreg Alcoholism No signs and or symptoms of withdrawal Has been on intravenous thiamine and folic acid and received banana bag Will continue IV Ativan as needed Strongly advised to quit drinking No signs and or symptoms of withdrawal Hypokalemia on potassium supplements patient also had a history of hyperkalemia we will follow labs normalized DVT prophylaxis Lovenox disposition telemetry full code. (2) New onset atrial fibrillation: (3) Acute alcoholism: (4) Hypothermia: (5) Hypoglycemia: Admission and Anticipated Discharge Date Admission Date: January 07, 2024 Subjective 01/07/2024 The patient was seen and examined in the emergency room He was admitted with an unresponsive episode but he denies to have any loss of consciousness He was noted to have very hypoglycemic and new onset A-fib with RVR on admission He has been feeling much better and wants to go home 01/08/2024 The patient was seen and examined in telemetry unit He has been feeling much better but his blood pressure noted to very high at systolic more than 117 diastolic more than 110 Denies any symptoms His blood sugar has been running normal Review of Systems Review of Systems: All systems reviewed and are unremarkable except as noted below Physical Exam Physical Exam: Lying in bed without any acute distress Constitutional: well developed and well nourished; not ill appearing Eyes: PERRL, conjunctivae normal, anicteric sclerae ENMT: external ear and nose normal, oropharynx normal Neck: trachea midline, no thyromegaly Respiratory: no respiratory distress Auscultation: lungs clear to auscultation bilaterally Cardiovascular: Rate/Rhythm: regular rate and regular rhythm; not tachycardic Heart Sounds: normal S1 and normal S2; no murmur Extremities: no edema Gastrointestinal (Abdomen): Inspection/Auscultation: normal bowel sounds; abdomen not distended Percussion/Palpation: abdomen soft; abdomen nontender Neurologic: normal touch/pain/proprioception and moves all extremities; no focal motor deficits Psychiatric: A+Ox3, euthymic affect Lymphatic: no cervical or axillary lymphadenopathy Results & Data Results & Data Vital Signs (Past 12 Hours) Vital Signs Temp Pulse Pulse Resp BP Pulse Ox Pulse Ox 01/08/24 15:36 70 01/08/24 15:03 36.7 C 62 18 162/92 H 98 01/08/24 12:47 36.9 C 65 16 170/103 H 96 01/08/24 12:34 01/08/24 12:00 61 01/08/24 12:00 67 18 157/90 H 97 01/08/24 08:13 62 18 156/101 H 98 01/08/24 07:16 69 01/08/24 06:00 62 16 157/98 H 97 01/08/24 04:30 96 O2 Del Method O2 Del Method 01/08/24 15:36 01/08/24 15:03 Room Air 01/08/24 12:47 Room Air 01/08/24 12:34 Room Air 01/08/24 12:00 01/08/24 12:00 Room Air 01/08/24 08:13 Room Air 01/08/24 07:16 01/08/24 06:00 Room Air 01/08/24 04:30 Room Air Laboratory Results Short CBC 01/08/24 Range/Units 04:24 WBC 6.07 (4.8-10.8) K/ul Hgb 11.0 L (14.0-18.0) g/dl Hct 33.2 L (42.0-52.0) % Plt Count 184 (130-400) K/uL BMP 01/08/24 04:24 Sodium 130 L Potassium 4.0 Chloride 104 Carbon Dioxide 22 BUN 11 Creatinine 0.73 Glucose 189 H Calcium 8.5 L Medications Administered Current Inpatient Medications Acetaminophen (Acetaminophen 325 Mg Tab) 650 mg PO Q4H PRN PRN Reason: Pain or Fever Stop: 02/06/24 04:09 Carvedilol (Carvedilol 6.25 Mg Tab) 6.25 mg PO BID [facility] Stop: 02/07/24 20:59 Dextrose (Dextrose 50% 50 Ml Syringe) 25 - 50 ml IV UD PRN; Protocol PRN Reason: Hypoglycemia Protocol Stop: 02/06/24 04:09 Duloxetine HCl (Duloxetine Hcl 20 Mg Cap) 20 mg PO QAM [facility] Stop: 02/06/24 08:59 Last Admin: 01/08/24 08:41 Dose: 20 mg Enoxaparin Sodium (Enoxaparin Inj 40 Mg/0.4 Ml Syr) 40 mg SQ Q24H [facility] Stop: 02/06/24 08:59 Last Admin: 01/08/24 08:41 Dose: 40 mg Folic Acid (Folic Acid 1 Mg Tab) 1 mg PO QAM [facility] Stop: 02/06/24 08:59 Last Admin: 01/08/24 08:41 Dose: 1 mg Glucagon (Glucagon For Inj 1 Mg Vial) 1 mg SQ UD PRN; Protocol PRN Reason: Hypoglycemia Protocol Stop: 02/06/24 04:09 Glucose (Glucose 40% Gel 15 Gm Tube) 15 - 30 gm PO UD PRN; Protocol PRN Reason: Hypoglycemia Protocol Stop: 02/06/24 04:09 Glucose (Glucose 10 Tab/Tube) 4 - 8 tab PO UD PRN; Protocol PRN Reason: Hypoglycemia Treatment Stop: 02/06/24 04:09 Thiamine HCl 100 mg/ Syringe 10 mls @ 2 mls/min IV QAM [facility] Stop: 02/06/24 08:59 Last Admin: 01/08/24 08:41 Dose: 2 mls/min Lorazepam 0.5 mg/ Syringe 0.5 mls @ 2 mls/min IV Q4H PRN PRN Reason: Anxiety/Agitation Stop: 02/06/24 04:09 Insulin Aspart (Insulin Aspart Per Unit Charge) 0 units SC ACHS [facility] Stop: 02/06/24 05:59 Last Admin: 01/08/24 13:40 Dose: 3 units Insulin Glargine (Lantus Per Unit Charge) 10 units SC QAM [facility] Stop: 02/07/24 08:59 Last Admin: 01/08/24 08:40 Dose: 10 units Miscellaneous (Carbohydrates For Hypoglycemia ) 15 - 30 gm PO UD PRN PRN Reason: Hypoglycemia Protocol Stop: 02/06/24 04:09 Miscellaneous Information (Pharmacy Glycemic Mgmt Consult) 1 each N/A UD PRN PRN Reason: Consult Stop: 02/06/24 04:09 Multivitamins/Minerals (Cerovite Adv Formula Tab) 1 tab PO QAM [facility] Stop: 02/06/24 08:59 Last Admin: 01/08/24 08:41 Dose: 1 tab Nitroglycerin (Nitroglycerin Sl 0.4 Mg/Tab Tab) 0.4 mg SL Q5M PRN PRN Reason: Chest Pain Stop: 02/06/24 04:09 Polyethylene Glycol (Polyethylene (Miralax) 17 Gm Pack) 17 gm PO DAILY PRN PRN Reason: Constipation Stop: 02/06/24 04:09 Potassium Chloride (Potassium Chloride Pwd 20 Meq Pack) 20 meq PO QAM [facility] Stop: 02/06/24 08:59 Last Admin: 01/08/24 08:40 Dose: 20 meq
[2024-01-08] MEDS: carvediloL 6.25 MG TAB PO SCH (20:55)
[2024-01-08 23:07] LABS: Marijuana Quant, GCMS Urine 888 ng/mL (<5)
[2024-01-09 06:23] LABS: Basophils # (auto) 0.02 K/uL (0.00-0.20); Basophils % (auto) 0.4 %; Eosinophils # (auto) 0.14 K/uL (0.00-0.50); Eosinophils % (auto) 2.5 %; Hematocrit (blood only) 34.5 % (42.0-52.0); Hemoglobin 11.7 g/dl (14.0-18.0); Immature Granulocytes # (auto) 0.01 K/uL (0.01-0.20); Immature Granulocytes % (auto) 0.2 %; Lymphocytes # (auto) 2.39 K/uL (1.20-3.40); Lymphocytes % (auto) 42.4 %; Mean Corpuscular Hgb Conc 33.9 g/dL (32.0-36.0); Mean Corpuscular Volume 85.4 fL (80.0-100.0); Mean Platelet Volume 9.1 fL (9.4-12.4); Monocytes % (auto) 14.2 %; Neutrophils # (auto) 2.28 K/uL (1.40-6.50); Neutrophils % (auto) 40.3 %; Platelet Count 188 K/uL (130-400); RDW Coefficient of Variation 12.5 % (11.5-14.5); RDW Standard Deviation 39.1 fL (36.4-46.3); Red Blood Count 4.04 M/uL (4.70-6.10); White Blood Count 5.64 K/ul (4.8-10.8)
[2024-01-09 06:45] LABS: BUN Creatinine Ratio 13.6 (10-20); Calcium 8.9 mg/dl (8.6-10.3); Creatinine Clr Calc Pharmacy 109.9 ml/min; Est GFR (African American) 120.9 ml/min; Est GFR (Non-African American) 104.3 ml/min; Magnesium 1.6 mg/dl (1.7-2.4); Phosphorus 3.6 mg/dl (2.5-4.9); Potassium 3.7 mmol/L (3.5-5.1)
--- NOTE | 2024-01-09 09:54 | Pharmacy Report ---
Pharmacy Glycemic Short Note 2 - Date of Service January 09, 2024 - Glycemic Short BSG Results (Last 24 hours): 01/08/24 01/08/24 01/08/24 12:33 16:31 20:27 Glucose POC Glucose 170 H 87 90 01/09/24 01/09/24 05:33 07:56 Glucose 140 H POC Glucose 174 H OUTPATIENT ANTIDIABETIC REGIMEN: * Novolog 4 units AC * Lantus 20 units QAM * Metformin ER 1000 mg PO BID HbA1c = 7.2% on 01/07/24 ASSESSMENT: 01/08: * Umair received 15 units of insulin yesterday (10 units were basal) * Fasting BSG this AM acceptable, dextrose containing fluids discontinued, continue current basal regimen * BSGs trend down during the day, unclear if bolus vs basal cause, will increase goal range and loosen parameters, monitor for trends. 01/06: * 63 y/o M admitted for unresponsiveness yesterday. He has history of Type 2 diabetes managed on basal and bolus insulins at home. Also has history of hypoglycemic episodes. * On admission, BSGs were below goal. Fasting today was 138 mg/dl. Home basal dose was reduced by 20% and 14 units of Lantus was given this morning. * Pre-lunch BSG trended up to 194 mg/dl. Novolog parameters were initiated this morning based on stress of 2. * Since history of hypoglycemic episodes noted, basal dose reduced further for tomorrow. PLAN FOR INPATIENT GLYCEMIC CONTROL: * Hold outpatient oral diabetes medications * Basal insulin * Lantus 10 units SQ QAM * Bolus insulin * NovoLog per scale ACHS or Q6hrs while NPO * Goal Range: Low 120 mg/dL - High 160 mg/dL * Correction Factor: 45 mg/dL/unit * Nutritional / Prandial insulin per carb ratio of 1 unit per 15 grams CHO consumed
--- NOTE | 2024-01-09 11:42 | Electrocardiogram Report ---
Test Reason : Blood Pressure : / mmHG Vent. Rate : 081 BPM Atrial Rate : 000 BPM P-R Int : 000 ms QRS Dur : 090 ms QT Int : 420 ms P-R-T Axes : 000 084 073 degrees QTc Int : 487 ms Atrial fibrillation Nonspecific ST abnormality Borderline Prolonged QT Abnormal ECG When compared with ECG of 02-JUN-2023 01:31, Atrial fibrillation has replaced Sinus rhythm Confirmed by Ted Dickens [id number]) on 01/09/2024 11:41:35 AM Referred By: REFERRED SELF Confirmed By:Ted Dickens
--- NOTE | 2024-01-09 13:02 | Hospitalist Progress Note ---
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 As per ER when his brother checked on him he was found unresponsive so called EMS. For EMS glucose was low and dextrose was given and patient improved. Currently alert and oriented x 3. Patient states he drinks 1 pint of whiskey couple of times a week. Last time he drank was yesterday. He states checks his sugars daily and they were running okay. He takes his long-acting insulin 20 units daily and sh ort acting insulin5 units with meals. He was also found to be hypothermic and currently on Flip hugger. Denies any headache. No blurred vision , no runny nose or sore throat. No fevers. No chest pain or shortness of breath. No nausea, no abdominal pain. Normal bowel and bladder movements as per patient. Hemodynamics are okay. Patient was admitted in the hospital in end of May 2023 with similar episode and at the time his glucose was found to be 11 ,during that admission he was also treated for acute respiratory failure with hypoxia secondary to pneumonia and also treated for hypertensive urgency. Unresponsive episode-With hypothermia and hypoglycemia Documented low blood sugar before admission No signs and or symptoms of infection Received his dose of intravenous Zosyn in the emergency room and that was discontinued He did have sweating but did not lose any consciousness Has been feeling better since admission and does not have any more episodes of low blood sugar Will observe in the hospital and likely discharge tomorrow No more episodes of unresponsiveness and does not have any more hypoglycemic episode Likely discharge tomorrow Blood sugar remains stable and the insulin doses will be adjusted Atrial fibrillation with RVR Did not have any chest pain and/or palpitation Serial cardiac enzymes are unremarkable and doubt any ACS Reverted to sinus rhythm He will not be given any anticoagulation given alcoholism and reversion of A-fib to sinus rhythm Appreciate cardiology input and recommendation Likely discharge tomorrow Rate is controlled and he is in sinus rhythm No more arrhythmias and no more atrial fibrillation noted Type 2 diabetes on insulin Presented with hypoglycemic episode with near loss of consciousness Hold oral medications Received intravenous dextrose on presentation Blood sugar has been stable since admission HbA1c level was greater than 16.9 on 02/12/2023 and was 7.3 on 06/09/2023 Insulin doses may need to be adjusted Hemoglobin A1c is minimally high at 7.2 Appreciate glycemic control by the pharmacist Hypertension on Coreg blood pressure is well-controlled with increasing doses of Coreg will be discharged home this afternoon Alcoholism No signs and or symptoms of withdrawal Has been on intravenous thiamine and folic acid and received banana bag Will continue IV Ativan as needed Strongly advised to quit drinking No signs and or symptoms of withdrawal Hypokalemia on potassium supplements patient also had a history of hyperkalemia we will follow labs normalized DVT prophylaxis Lovenox disposition telemetry full code. (2) New onset atrial fibrillation: (3) Acute alcoholism: (4) Hypothermia: (5) Hypoglycemia: Admission and Anticipated Discharge Date Admission Date: January 07, 2024 Subjective 01/07/2024 The patient was seen and examined in the emergency room He was admitted with an unresponsive episode but he denies to have any loss of consciousness He was noted to have very hypoglycemic and new onset A-fib with RVR on admission He has been feeling much better and wants to go home 01/08/2024 The patient was seen and examined in telemetry unit He has been feeling much better but his blood pressure noted to very high at systolic more than 117 diastolic more than 110 Denies any symptoms His blood sugar has been running normal 01/09/2024 The patient was seen and examined in telemetry unit He denies any worse symptoms of dizziness and or syncope His blood pressure is controlled Blood sugar remains stable Review of Systems Review of Systems: All systems reviewed and are unremarkable except as noted below Physical Exam Physical Exam: Lying in bed without any acute distress Constitutional: well developed and well nourished; not ill appearing Eyes: PERRL, conjunctivae normal, anicteric sclerae ENMT: external ear and nose normal, oropharynx normal Neck: trachea midline, no thyromegaly Respiratory: no respiratory distress Auscultation: lungs clear to auscultation bilaterally Cardiovascular: Rate/Rhythm: regular rate and regular rhythm; not tachycardic Heart Sounds: normal S1 and normal S2; no murmur Extremities: no edema Gastrointestinal (Abdomen): Inspection/Auscultation: normal bowel sounds; abdomen not distended Percussion/Palpation: abdomen soft; abdomen nontender Neurologic: normal touch/pain/proprioception and moves all extremities; no focal motor deficits Psychiatric: A+Ox3, euthymic affect Lymphatic: no cervical or axillary lymphadenopathy Results & Data Results & Data Vital Signs (Past 12 Hours) Vital Signs Temp Pulse Pulse Resp BP Pulse Ox O2 Del Method 01/09/24 11:36 36.8 C 62 18 132/84 99 Room Air 01/09/24 07:24 36.8 C 58 L 18 141/96 H 98 Room Air 01/09/24 07:16 66 01/09/24 03:08 36.7 C 73 18 151/84 H 98 Room Air Laboratory Results Short CBC 01/09/24 Range/Units 05:33 WBC 5.64 (4.8-10.8) K/ul Hgb 11.7 L (14.0-18.0) g/dl Hct 34.5 L (42.0-52.0) % Plt Count 188 (130-400) K/uL BMP 01/09/24 05:33 Sodium 134 L Potassium 3.7 Chloride 105 Carbon Dioxide 24 BUN 9 Creatinine 0.66 Glucose 140 H Calcium 8.9 Medications Administered Current Inpatient Medications Acetaminophen (Acetaminophen 325 Mg Tab) 650 mg PO Q4H PRN PRN Reason: Pain or Fever Stop: 02/06/24 04:09 Carvedilol (Carvedilol 6.25 Mg Tab) 6.25 mg PO BID [facility] Stop: 02/07/24 20:59 Last Admin: 01/09/24 08:31 Dose: 6.25 mg Dextrose (Dextrose 50% 50 Ml Syringe) 25 - 50 ml IV UD PRN; Protocol PRN Reason: Hypoglycemia Protocol Stop: 02/06/24 04:09 Duloxetine HCl (Duloxetine Hcl 20 Mg Cap) 20 mg PO QAM [facility] Stop: 02/06/24 08:59 Last Admin: 01/09/24 08:31 Dose: 20 mg Enoxaparin Sodium (Enoxaparin Inj 40 Mg/0.4 Ml Syr) 40 mg SQ Q24H [facility] Stop: 02/06/24 08:59 Last Admin: 01/09/24 08:31 Dose: 40 mg Folic Acid (Folic Acid 1 Mg Tab) 1 mg PO QAM [facility] Stop: 02/06/24 08:59 Last Admin: 01/09/24 08:31 Dose: 1 mg Glucagon (Glucagon For Inj 1 Mg Vial) 1 mg SQ UD PRN; Protocol PRN Reason: Hypoglycemia Protocol Stop: 02/06/24 04:09 Glucose (Glucose 40% Gel 15 Gm Tube) 15 - 30 gm PO UD PRN; Protocol PRN Reason: Hypoglycemia Protocol Stop: 02/06/24 04:09 Glucose (Glucose 10 Tab/Tube) 4 - 8 tab PO UD PRN; Protocol PRN Reason: Hypoglycemia Treatment Stop: 02/06/24 04:09 Thiamine HCl 100 mg/ Syringe 10 mls @ 2 mls/min IV QAM [facility] Stop: 02/06/24 08:59 Last Admin: 01/09/24 08:31 Dose: 2 mls/min Lorazepam 0.5 mg/ Syringe 0.5 mls @ 2 mls/min IV Q4H PRN PRN Reason: Anxiety/Agitation Stop: 02/06/24 04:09 Insulin Aspart (Insulin Aspart Per Unit Charge) 0 units SC ACHS [facility] Stop: 02/06/24 05:59 Last Admin: 01/09/24 12:28 Dose: 3 units Insulin Glargine (Lantus Per Unit Charge) 10 units SC QAM [facility] Stop: 02/07/24 08:59 Last Admin: 01/09/24 08:32 Dose: 10 units Miscellaneous (Carbohydrates For Hypoglycemia ) 15 - 30 gm PO UD PRN PRN Reason: Hypoglycemia Protocol Stop: 02/06/24 04:09 Miscellaneous Information (Pharmacy Glycemic Mgmt Consult) 1 each N/A UD PRN PRN Reason: Consult Stop: 02/06/24 04:09 Multivitamins/Minerals (Cerovite Adv Formula Tab) 1 tab PO QAM [facility] Stop: 02/06/24 08:59 Last Admin: 01/09/24 08:31 Dose: 1 tab Nitroglycerin (Nitroglycerin Sl 0.4 Mg/Tab Tab) 0.4 mg SL Q5M PRN PRN Reason: Chest Pain Stop: 02/06/24 04:09 Polyethylene Glycol (Polyethylene (Miralax) 17 Gm Pack) 17 gm PO DAILY PRN PRN Reason: Constipation Stop: 02/06/24 04:09 Potassium Chloride (Potassium Chloride Pwd 20 Meq Pack) 20 meq PO QAM [facility] Stop: 02/06/24 08:59 Last Admin: 01/09/24 08:31 Dose: 20 meq
--- NOTE | 2024-01-10 08:17 | Discharge Summary ---
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 As per ER when his brother checked on him he was found unresponsive so called EMS. For EMS glucose was low and dextrose was given and patient improved. Currently alert and oriented x 3. Patient states he drinks 1 pint of whiskey couple of times a week. Last time he drank was yesterday. He states checks his sugars daily and they were running okay. He takes his long-acting insulin 20 units daily and short acting insulin5 units with meals. He was also found to be hypothermic and currently on Flip hugger. Denies any headache. No blurred vision , no runny nose or sore throat. No fevers. No chest pain or shortness of breath. No nausea, no abdominal pain. Normal bowel and bladder movements as per patient. Hemodynamics are okay. Patient was admitted in the hospital in end of May 2023 with similar episode and at the time his glucose was found to be 11 ,during that admission he was also treated for acute respiratory failure with hypoxia secondary to pneumonia and also treated for hypertensive urgency. Past medical history. As mentioned above past surgical history. Amputation of the right leg below the knee . Social history. Currently living with his brother. Smokes a pack a day for last 40 years. Says currently drinking a pint of vodka a couple of times a week. History of cocaine and he states he did cocaine last time was 2 years ago. Family history. Brother had pancreatic cancer Admission Exam Per Admitting Provider Physical Exam: General- Not in distress Head- atraumatic Eyes- PERRL. ENT- oropharynx clear Neck- supple, no JVD. Lungs- clear to auscultation no wheezing or crackles. Heart- regular rhythm; no murmur, no gallop. Abdomen- normal bowel sounds, soft, nontender, no distension Extremities- s/p right BKA amputation. no pretibial edema, no erythema seen. Neuro- alert, oriented x 3; PERRL, no facial palsy; no dysarthria; Principal Diagnosis Hypoglycemic episode, transient atrial fibrillation, diabetes type 2 on insulin, hypertension Discharge Exam Lying in bed without any acute distress Constitutional well developed and well nourished; not ill appearing Eyes PERRL, conjunctivae normal, anicteric sclerae ENMT external ear and nose normal, oropharynx normal Neck trachea midline, no thyromegaly Respiratory no respiratory distress Auscultation: lungs clear to auscultation bilaterally Cardiovascular Rate/Rhythm: regular rate and regular rhythm; not tachycardic Heart Sounds: normal S1 and normal S2; no murmur Extremities: no edema Gastrointestinal (Abdomen) Inspection/Auscultation: normal bowel sounds; abdomen not distended Percussion/Palpation: abdomen soft; abdomen nontender Neurologic normal touch/pain/proprioception and moves all extremities; no focal motor deficits Psychiatric A+Ox3, euthymic affect Lymphatic no cervical or axillary lymphadenopathy Discharge Data Allergies Allergy/AdvReac Type Severity Reaction Status Date / Time No Known Allergies Allergy Verified 01/07/24 00:13 Consultations 01/06/24 23:40 ED Decision to Admit Stat 01/07/24 08:00 Consult Cardiology Routine Ordered Studies 01/06/24 22:24 CT head/brain wo con Stat Hospital Course (1) Unresponsive episode: 63-year-old male with past medical history significant for type 2 diabetes, recurrent acute pancreatitis, hypertension, 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 As per ER when his brother checked on him he was found unresponsive so called EMS. For EMS glucose was low and dextrose was given and patient improved. Currently alert and oriented x 3. Patient states he drinks 1 pint of whiskey couple of times a week. Last time he drank was yesterday. He states checks his sugars daily and they were running okay. He takes his long-acting insulin 20 units daily and short acting insulin5 units with meals. He was also found to be hypothermic and currently on Flip hugger. Denies any headache. No blurred vision , no runny nose or sore throat. No fevers. No chest pain or shortness of breath. No nausea, no abdominal pain. Normal bowel and bladder movements as per patient. Hemodynamics are okay. Patient was admitted in the hospital in end of May 2023 with similar episode and at the time his glucose was found to be 11 ,during that admission he was also treated for acute respiratory failure with hypoxia secondary to pneumonia and also treated for hypertensive urgency. Unresponsive episode-With hypothermia and hypoglycemia Documented low blood sugar before admission No signs and or symptoms of infection Received his dose of intravenous Zosyn in the emergency room and that was discontinued He did have sweating but did not lose any consciousness Has been feeling better since admission and does not have any more episodes of low blood sugar Will observe in the hospital and likely discharge tomorrow No more episodes of unresponsiveness and does not have any more hypoglycemic episode Likely discharge tomorrow Blood sugar remains stable and the insulin doses will be adjusted Atrial fibrillation with RVR Did not have any chest pain and/or palpitation Serial cardiac enzymes are unremarkable and doubt any ACS Reverted to sinus rhythm He will not be given any anticoagulation given alcoholism and reversion of A-fib to sinus rhythm Appreciate cardiology input and recommendation Likely discharge tomorrow Rate is controlled and he is in sinus rhythm No more arrhythmias and no more atrial fibrillation noted Type 2 diabetes on insulin Presented with hypoglycemic episode with near loss of consciousness Hold oral medications Received intravenous dextrose on presentation Blood sugar has been stable since admission HbA1c level was greater than 16.9 on 02/12/2023 and was 7.3 on 06/09/2023 Insulin doses may need to be adjusted Hemoglobin A1c is minimally high at 7.2 Appreciate glycemic control by the pharmacist Hypertension on Coreg blood pressure is well-controlled with increasing doses of Coreg will be discharged home this afternoon Alcoholism No signs and or symptoms of withdrawal Has been on intravenous thiamine and folic acid and received banana bag Will continue IV Ativan as needed Strongly advised to quit drinking No signs and or symptoms of withdrawal Hypokalemia on potassium supplements patient also had a history of hyperkalemia we will follow labs normalized DVT prophylaxis Lovenox disposition telemetry full code. (2) New onset atrial fibrillation: (3) Acute alcoholism: (4) Hypothermia: (5) Hypoglycemia: Total Time Total Time Spent Total Time Spent (In Minutes): 45 minutes Discharge Plan Discharge Items Patient Disposition: Home - Self-Care Reason For Visit: UNRESPNSIVE EPISODE, HYPOGLYCEMIA, HYPOTHERMIA Discharge Diagnosis: Hypoglycemic episode, transient atrial fibrillation, diabetes type 2 on insulin, hypertension Condition on Discharge: Fair Activity: Resume your previous activity Non-emergency contact: Primary Care Provider Call non-emergency contact if: you have any medication questions and your symptoms worsen Follow-up/Referrals: Liyah Oseguera MD [Primary Care Provider] - (Date & Time 01/13/2024 11:00 AM Provider Liyah Oseguera MD Department General Internal Medicine [facility] ) Diet: Carb Consistent or DM2 Addtl Attending Provider Instructions: Please take precautions to avoid falls Take your medications and insulin as advised Please keep appointment with the healthcare providers keep Your Lantus has been changed to 10 units daily and NovoLog to 3 units before meals Do not take any NovoLog if you do not have a meal Pending Studies at Discharge: No Stand-Alone Forms: My [facility] [employer], Smoking Cessation Medications and DC Order Prescriptions: New carvedilol 6.25 mg Tablet 6.25 mg PO BID Qty: 6 0RF Continued potassium chloride [Klor-Con] 20 mEq packet 20 meq PO QAM folic acid 1 mg tablet 1 mg PO QAM polyethylene glycol 3350 [Miralax] 17 gram/dose Powder 17 g PO DAILY PRN (Reason: Constipation) metformin 500 mg tablet extended release 24 hr 1,000 mg PO DIRECTED duloxetine 20 mg capsule,delayed release(DR/EC) 20 mg PO QAM Changed insulin aspart U-100 100 unit/mL (3 mL) insulin pen 3 unit SUBCUT AC Qty: 0 0RF insulin glargine [Lantus Solostar U-100 Insulin] 100 unit/mL (3 mL) insulin pen 10 unit SUBCUT QAM Qty: 0 0RF carvedilol 3.125 mg tablet 6.25 mg PO BID Qty: 0 0RF Discharge Orders: Discharge Order (Routine); Ordered 01/09/24 Ordered By: Malcom Murrieta Admission Data Admit Date/Time: 01/07/24 02:01 Attending Provider: Malcom Murrieta Admit Provider: Everette Salcedo Primary Care Provider: Liyah Oseguera Other Providers: Everette Salcedo Other Interventions: Discharge Summary Assessment (RN) Last Done: 01/09/24 14:40
--- NOTE | 2024-01-10 11:33 | Electrocardiogram Report ---
Test Reason : Blood Pressure : / mmHG Vent. Rate : 055 BPM Atrial Rate : 055 BPM P-R Int : 196 ms QRS Dur : 090 ms QT Int : 464 ms P-R-T Axes : 069 080 072 degrees QTc Int : 443 ms Sinus bradycardia Otherwise normal ECG When compared with ECG of 06-JAN-2024 22:13, Sinus rhythm has replaced Atrial fibrillation HR has decreased by 26 bpm Confirmed by Swapnil Allen ([id number]) on 01/10/2024 11:32:57 AM Referred By: REFERRED SELF Confirmed By:Swapnil Allen
== END 2024-01-09 16:15 | disposition home or self-care (01) | DRG 638 ==
LOC: ED 21:49 → EDINP 01-07 02:01 → 4W 01-07 04:12
DX: R41.82 Altered mental status, unspecified; Z83.3 Family history of diabetes mellitus; F32.A Depression, unspecified; E11.649 Type 2 diabetes mellitus with hypoglycemia without coma; G54.6 Phantom limb syndrome with pain; R68.0 Hypothermia, not associated with low environmental temperature; F14.11 Cocaine abuse, in remission; I48.91 Unspecified atrial fibrillation; F17.210 Nicotine dependence, cigarettes, uncomplicated; E87.1 Hypo-osmolality and hyponatremia; E87.6 Hypokalemia; Z79.4 Long term (current) use of insulin; I10 Essential (primary) hypertension; Z89.511 Acquired absence of right leg below knee; F10.20 Alcohol dependence, uncomplicated

== ENCOUNTER 2024-09-08 04:01 | Inpatient (IN) ==
[2024-09-08 05:09] LABS: Albumin Globulin Ratio 1.4 (0.9-2); Albumin Level 4.5 gm/dl (3.4-5.0); BUN Creatinine Ratio 19.7 (10-20); Bilirubin,Total 0.5 mg/dl (0.2-1.0); Calcium 10.5 mg/dl (8.6-10.3); Creatinine Clr Calc Pharmacy 37.1 ml/min; Globulin 3.3 gm/dl (2.5-4.0); Potassium 4.4 mmol/L (3.5-5.1); Total Protein 7.8 gm/dl (6.0-8.3)
[2024-09-08 05:18] LABS: Basophils # (auto) 0.02 K/uL (0.00-0.20); Basophils % (auto) 0.4 %; Hematocrit (blood only) 35.1 % (42.0-52.0); Hemoglobin 12.3 g/dl (14.0-18.0); Immature Granulocytes # (auto) 0.01 K/uL (0.01-0.20); Immature Granulocytes % (auto) 0.2 %; Lymphocytes # (auto) 1.69 K/uL (1.20-3.40); Lymphocytes % (auto) 29.6 %; Mean Corpuscular Hemoglobin 28.7 pg (25.0-34.0); Mean Platelet Volume 12.2 fL (9.4-12.4); Monocytes # (auto) 0.72 K/uL (0.11-0.59); Monocytes % (auto) 12.6 %; Neutrophils # (auto) 3.27 K/uL (1.40-6.50); Neutrophils % (auto) 57.2 %; Platelet Count 156 K/uL (130-400); RDW Coefficient of Variation 12.2 % (11.5-14.5); Red Blood Count 4.28 M/uL (4.70-6.10); White Blood Count 5.71 K/ul (4.8-10.8)
[2024-09-08] MEDS ORDERED: NovoLIN-R INSULIN PER UNIT CHARGE IV STA (05:39)
[2024-09-08] MEDS ORDERED: GLUCAGON FOR INJ 1 MG VIAL SQ PRN (05:40)
[2024-09-08] MEDS ORDERED: DEXTROSE 50% 50 ML SYRINGE IV PRN (05:40)
[2024-09-08] MEDS ORDERED: GLUCOSE 10 TAB/TUBE PO PRN (05:40)
[2024-09-08] MEDS ORDERED: GLUCOSE 40% GEL 15 GM TUBE PO PRN (05:40)
[2024-09-08] MEDS ORDERED: CARBOHYDRATES FOR HYPOGLYCEMIA PO PRN (05:40)
[2024-09-08 05:55] LABS: Appearance Urine Clear (Clear); Bilirubin Urine Negative (Negative); Blood Urine Negative (Negative); Color Urine Yellow; Glucose Urine UA 3+ (Negative); Ketones Urine 1+ (Negative); Leukocyte Esterase Urine Negative (Negative); Nitrite Urine Negative (Negative); Protein Urine Negative (Negative); Specific Gravity Urine 1.037 (1.000-1.030); Urobilinogen Urine Negative (Negative)
[2024-09-08 06:00] LABS: Prothrombin Time 10.7 Seconds (9.0-12.0)
[2024-09-08] MEDS: INSULIN REGULAR 250 UNITS in SODIUM CHLORIDE 0.9% 247.5 ML IV SCH (06:16)
[2024-09-08] MEDS: DKA GOAL RANGE 150-250 mg/dl ONE (06:20)
[2024-09-08] MEDS: NovoLIN-R BOLUS FROM BAG IV STA (06:20)
[2024-09-08] MEDS: STAT IV Infusion **Titration per Protocol STA (06:21)
[2024-09-08] MEDS: SODIUM CHLORIDE 0.9% 1,000 ML IV ONE (06:21)
[2024-09-08 06:22] LABS: Magnesium 2.2 mg/dl (1.7-2.4); Phosphorus 1.7 mg/dl (2.5-4.9); Thyroid Stimulating Hormone 1.298 uIu/ml (0.300-4.500); Troponin I High Sensitivity 352.5 pg/ml (0-20)
[2024-09-08] MEDS: PLASMA-LYTE A 1,000 ML IV ONE ×2 (06:23→07:36)
--- NOTE | 2024-09-08 06:41 | CT Scan Report ---
EXAM: CT head/brain wo con CLINICAL HISTORY: ams TECHNIQUE: Axial non-contrast CT scan of the brain was performed from the skull base to the high parietal region. One of the following dose reduction techniques were utilized for this exam: Automated exposure control, adjustment of the mA and/or kV according to patient size, use of iterative reconstruction. DLP: 625.80 mGy-cm COMPARISON: CT 01/06/2024 FINDINGS: Brain Parenchyma: Bilateral cerebral and cerebellar white matter hypodense attenuation within scattered hypodense foci distinctive of small artery disease with ischemic changes More deep hypodense patch is seen implicating the bilateral high frontal periventricular regions without mass effect, likely ischemic Bilateral basal ganglia lacunar infarcts No evidence of acute infarct, hemorrhage, or mass effect. Ventricular System: Exaggerated extra-axial CSF spaces and basal cisterns as well as dilated ventricular system. Subarachnoid Spaces: Exaggerated extra-axial CSF spaces and basal cisterns as well as dilated ventricular system. Cerebellum and Brainstem: No masses, lesions, Orbits: Normal appearance of the globes, optic nerves, and extraocular muscles. No evidence of orbital masses or abnormal signal. Sinuses: Clear paranasal sinuses. No evidence of sinusitis or mucosal thickening. Mastoid Air Cells: Clear mastoid air cells. No evidence of mastoiditis. Skull: Normal skull morphology. IMPRESSION: 1. No acute infarction on noncontrast CT or hemorrhage. For assessment of acute infarctions, MR diffusion is advised. 2. Diffuse cerebral microangiopathy with bilateral white matter ischemic changes, stable. 3. Bilateral basal ganglia lacunar infarcts, stable. 4. Age-related brain involutional changes, stable. Electronically signed by Shaun Choudhury 09-08-2024 06:40 AM
--- NOTE | 2024-09-08 07:01 | Emergency Department Note ---
Impression & Plan DKA (diabetic ketoacidosis), Confusion, Elevated troponin, Dehydration ED Provider Note ED Provider Note NAME: TEHAN STEWART AGE:64 SEX: Male : 1960 ARRIVES VIA: EMS INFORMANT: Patient ED PROVIDER(s): Flavia Shay DO CHIEF COMPLAINT: High blood sugar HPI: This is a 64-year-old male brought in by EMS after family was concerned for high blood sugar reading at home and increased weakness and confusion. Patient noted by family to be covered in his own urine and feces, and appeared to be unable to care for himself. They state they did not know if he was taking his insulin appropriately. Patient is a known diabetic. Patient knows he is at the hospital, can tell me some of his medications but not all, but does not recall any other recent specific events. He denies headaches, dizziness, chest pain, shortness of breath, abdominal pain, vomiting, or any recent illness. He states he is taking his medications as prescribed and checks his blood sugar daily. PAST MEDICAL HISTORY:See Below PAST SURGICAL HISTORY:See Below FAMILY HISTORY:See Below SOCIAL HISTORY:See Below HOME MEDICATIONS:See Below ALLERGIES:See Below VITALS:See Below PHYSICAL EXAMINATION: GENERAL: alert, well appearing, well nourished, no distress, non-toxic EYE EXAM: normal conjunctiva, PERRL and EOM's grossly intact OROPHARYNX: no exudate, no erythema, lips, buccal mucosa, and tongue normal and mucous membranes are dry NECK: supple, no nuchal rigidity, no adenopathy, non-tender LUNGS: Clear to auscultation. Normal chest wall mechanics, no w/r/r HEART: no murmurs, S1 normal and S2 normal ABDOMEN: abdomen soft, non-tender, normo-active bowel sounds, no masses, no rebound or guarding. BACK: Back is symmetrical on inspection and there is no deformity, no midline tenderness, no CVA tenderness. SKIN: no rashes, petechiae, orbruising UPPER EXTREMITIES: upper extremities are grossly normal. FROM, nml pulses b/l. LOWER EXTREMITIES: No pitting edema. FROM, nml pulses LLE, right BKA with well- healed stump NEURO EXAM: Normal sensorium, cranial nerves II-XII grossly intact, normal speech, no facial droop,nogross weakness of arms, no gross weakness of legs. Gross sensation intact. No ataxia. Vital Signs: reviewed and remarkable Differential Diagnosis: viral syndrome, idalia, dka, dehydration, noncompliance, medication adr, acs, colitis, aaa, dysrhythmia, pna, uti, as well as others were considered MEDICAL DECISION MAKING: THis is a 64 yo male who presents to the ER via EMS due to concern for inability to care for himself and confusion. Patient covered in his own urine and feces and had to be showered by staff before other treatments could be started. Labs drawn and sent, IV established, EKG and CXR performed and interpreted at bedside, and patient placed on telemetry. He was started on IVF. Nasal swab obtained for viral panel and urine collected additionally. He was sent for CT head additionally due to some mild confusion. He is oriented but cannot recall events from the last several days. He denied pain or difficulty breathing on exam. Patient noted to have significant hyperglycemia and mild DKA. He was also noted to have mild IDALIA but significant elevation of troponin. No acute EKG changes. Imaging reassuring. Patient started on insulin drip and case discussed with the hospitalist team for additional evaluation and mgmt. Consultation(s): 0750: Discussed with Dr. Valdez, [facility] hospitalist team, for additional evaluation and management. ER Treatment Provided: See below Diagnostics Interpreted By Me: -ECG: nsr at 77, nml axis, nml intervals, no acute ST/T wave changes -Cardiac Monitoring: An order was placed for continuous cardiac monitoring. The monitor shows a rate of 77 with normal sinus rhythm. -Laboratory studies: As stated above and show below. -Imaging studies: X-ray Chest: A single view study of the chest was reviewed and was negative for cardiomegaly, focal infiltrate, effusion, pulmonary edema, or wide mediastinum. Triage Nursing Note Reviewed Prior/Outside Records Reviewed - prior DC summary reviewed Critical Care: Critical care of 42 min performed to assess and manage high likelihood of life- threatening DKA, involving labs and imaging performed with assessment to evaluate hyperglycemia diagnosis with frequent reassessment. This time includes bedside time, treatment discussions with patient/family/consultants, documentation time and excludes procedure time. Past Med/Surg History Problem List Dehydration (Acute) Acute metabolic encephalopathy Elevated troponin (Acute) Confusion (Acute) DKA (diabetic ketoacidosis) (Acute) New onset atrial fibrillation Unresponsive episode Acute alcoholism (Acute) Hypothermia (Acute) Elevated lactic acid level (Acute) Hypoglycemia (Acute) AMS (altered mental status) (Acute) Acute hyperkalemia (Acute) Diabetes mellitus DKA (diabetic ketoacidosis) (Acute) Diabetes mellitus, new onset (Acute) AMS (altered mental status) (Acute) High anion gap metabolic acidosis Metabolic encephalopathy (Acute) IDALIA (acute kidney injury) Hyperosmolar hyperglycemic state (HHS) Intertrochanteric fracture of left femur Closed fracture of left hip (Acute) Alcohol abuse (Acute) Fall (Acute) Diabetes mellitus type 2 in nonobese Alcohol withdrawal (Acute) Hyponatremia Marijuana abuse Cocaine abuse Alcoholism Acute pancreatitis (Acute) Nausea & vomiting (Acute) Depression (Chronic) 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 Obesity GERD (gastroesophageal reflux disease) Surgical History History of mandibular surgery BROKEN JAW 1978 History of tooth extraction ALL TEETH REMOVED Complete below knee amputation of right lower extremity Family History Sister Family history of diabetes mellitus Brother Pancreatic carcinoma Social History Smoking Status: Current some day smoker Tobacco Type: Cigarettes Second Hand Exposure: No; Do You Dip or Chew Tobacco: No; Tobacco Cessation Education Requested by Patient: No Hx Alcohol Use: Yes Alcohol type: beer Alcohol Intake Frequency: 4 or More x per/Week Alcohol Intake Frequency Comment: 6 pack of beer + daily Hx Substance Use: No Preferred Language: Barbadian Communication Ability: Effective Systems Technologist Required: No Beliefs That Will Affect Care: None marital status: Single Current Living Situation: Alone Current Living Situation Comment: Lives with brother Other Information That Helps Us Care for You: No Feels Safe at Home: Yes Safety Concerns: Feels Safe At This Time Assistive Devices: Prosthesis Allergies Allergies Allergy/AdvReac Type Severity Reaction Status Date / Time No Known Allergies Allergy Verified 09/08/24 10:11 Home Meds Home Medications Medication Instructions Recorded Confirmed metformin 500 mg tablet,extended 1,000 mg PO BID 01/07/24 09/08/24 release 24 hr carvedilol 3.125 mg tablet 3.125 mg PO BIDWMEAL 09/08/24 09/08/24 duloxetine 20 mg capsule,delayed 20 mg PO DAILY 09/08/24 09/08/24 release folic acid 1 mg tablet 1 mg PO DAILY 09/08/24 09/08/24 Previous Rx's Medication Instructions Recorded insulin glargine 100 unit/mL (3 10 unit (0.1 mL) subcut QAM #0 mL 01/09/24 mL) subcutaneous pen (Lantus Solostar U-100 Insulin) Results & Data (ED) Vital Signs Vital Signs - 24 hr 09/08/24 04:15 09/08/24 04:19 09/08/24 06:09 Temperature 36.6 C Temperature Source Oral Pulse Rate 77 77 Pulse Rate [Apical] 73 Respiratory Rate 18 20 Respiratory Effort / Characteristics Non-Labored Spontaneous Respiratory Depth Normal Respiratory Pattern Blood Pressure [Right Arm] 129/88 Blood Pressure Mean [Right Arm] 101 Blood Pressure Position [Right Arm] Lying Pulse Oximetry 100 99 Oxygen Delivery Method Room Air Room Air Sepsis Recent Fever Within 48 Hours No Sepsis New/Unexplained Change in Mental Status No Sepsis Action Taken by Nursing No Action Required 09/08/24 06:25 09/08/24 09:16 Temperature Temperature Source Pulse Rate 68 Pulse Rate [Apical] 75 Respiratory Rate 18 Respiratory Effort / Characteristics Non-Labored Spontaneous Respiratory Depth Normal Respiratory Pattern Regular Blood Pressure [Right Arm] 123/84 Blood Pressure Mean [Right Arm] 97 Blood Pressure Position [Right Arm] Lying Pulse Oximetry 100 Oxygen Delivery Method Room Air Sepsis Recent Fever Within 48 Hours Sepsis New/Unexplained Change in Mental Status Sepsis Action Taken by Nursing Laboratory Data 09/09/24 08:36 09/09/24 08:36 Lab Results 09/08/24 09/08/24 09/08/24 Range/Units 04:16 04:26 05:45 WBC 5.71 (4.8-10.8) K/ul RBC 4.28 L (4.70-6.10) M/uL Hgb 12.3 L (14.0-18.0) g/dl Hct 35.1 L (42.0-52.0) % MCV 82.0 (80.0-100.0) fL MCH 28.7 (25.0-34.0) pg MCHC 35.0 (32.0-36.0) g/dL RDW Std Deviation 37.0 (36.4-46.3) fL RDW Coeff of Miguel 12.2 (11.5-14.5) % Plt Count 156 (130-400) K/uL MPV 12.2 (9.4-12.4) fL Immature Gran % (Auto) 0.2 % Neut % (Auto) 57.2 % Lymph % (Auto) 29.6 % Ferry % (Auto) 12.6 % Eos % (Auto) 0.0 % Baso % (Auto) 0.4 % Neut # (Auto) 3.27 (1.40-6.50) K/uL Lymph # (Auto) 1.69 (1.20-3.40) K/uL Ferry # (Auto) 0.72 H (0.11-0.59) K/uL Eos # (Auto) 0.00 (0.00-0.50) K/uL Baso # (Auto) 0.02 (0.00-0.20) K/uL Immature Gran # (Auto) 0.01 (0.01-0.20) K/uL PT 10.7 (9.0-12.0) Seconds INR 1.0 (0.9-1.1) VBG pH (7.36-7.41) VBG pCO2 (38-50) mmHg VBG pO2 mmHg VBG HCO3 mmol/L VBG O2 Saturation % VBG Base Excess mEq/L Sodium 126 L (136-145) mmol/L Potassium 4.4 (3.5-5.1) mmol/L Chloride 86 L (98-107) mmol/L Carbon Dioxide 24 (21-32) mmol/L Anion Gap 16 H (3-11) BUN 34 H (6-23) mg/dl Creatinine 1.73 H (0.6-1.4) mg/dl Est Cr Clr Drug Dosing 37.1 ml/min eGFR 44.08 BUN/Creatinine Ratio 19.7 (10-20) Glucose 659 H* (70-99(Fasting)) mg/dl POC Glucose > 600 H* (70-99) mg/dl Estimat Average Glucose 401 mg/dl Hemoglobin A1c 15.6 H (4.5-5.6) % Lactate (0.4-2.0) mmol/L Calcium 10.5 H (8.6-10.3) mg/dl Phosphorus 1.7 L (2.5-4.9) mg/dl Magnesium 2.2 (1.7-2.4) mg/dl Total Bilirubin 0.5 (0.2-1.0) mg/dl AST 13 (13-39) U/L ALT 13 (7-52) U/L Alkaline Phosphatase 105 H (34-104) U/L Troponin I High Sens 352.5 H* (0-20) pg/ml Total Protein 7.8 (6.0-8.3) gm/dl Albumin 4.5 (3.4-5.0) gm/dl Globulin 3.3 (2.5-4.0) gm/dl Albumin/Globulin Ratio 1.4 (0.9-2) Lipase 40 (11-82) U/L TSH 1.298 (0.300-4.500) uIu/ml Urine Color Yellow Urine Appearance Clear (Clear) Urine pH 6.0 (4.5-7.5) Ur Specific Micro 1.037 H (1.000-1.030) Urine Protein Negative (Negative) Urine Glucose (UA) 3+ H (Negative) Urine Ketones 1+ H (Negative) Urine Blood Negative (Negative) Urine Nitrite Negative (Negative) Urine Bilirubin Negative (Negative) Urine Urobilinogen Negative (Negative) Ur Leukocyte Esterase Negative (Negative) Ethyl Alcohol mg/dL (<10.0) mg/dl Adenovirus (PCR) (NotDetected) B. pertussis DNA (PCR) (NotDetected) B.parapertussis DNA PCR (NotDetected) C. pneumoniae DNA (PCR) (NotDetected) Coronavirus OC43 (PCR) (NotDetected) Coronavirus HKU1 (PCR) (NotDetected) Coronavirus 229E (PCR) (NotDetected) SARS-CoV-2 (PCR) (NotDetected) Coronavirus NL63 (PCR) (NotDetected) Human Metapneumovir PCR (NotDetected) Influenza Type A (PCR) (NotDetected) Influenza Type B (PCR) (NotDetected) M. pneumoniae (PCR) (NotDetected) Parainfluenza 1 (PCR) (NotDetected) Parainfluenza 2 (PCR) (NotDetected) Parainfluenza 3 (PCR) (NotDetected) Parainfluenza 4 (PCR) (NotDetected) RSV (PCR) (NotDetected) Entero/Rhino (PCR) (NotDetected) 09/08/24 09/08/24 09/08/24 Range/Units 07:23 07:27 07:38 WBC (4.8-10.8) K/ul RBC (4.70-6.10) M/uL Hgb (14.0-18.0) g/dl Hct (42.0-52.0) % MCV (80.0-100.0) fL MCH (25.0-34.0) pg MCHC (32.0-36.0) g/dL RDW Std Deviation (36.4-46.3) fL RDW Coeff of Miguel (11.5-14.5) % Plt Count (130-400) K/uL MPV (9.4-12.4) fL Immature Gran % (Auto) % Neut % (Auto) % Lymph % (Auto) % Ferry % (Auto) % Eos % (Auto) % Baso % (Auto) % Neut # (Auto) (1.40-6.50) K/uL Lymph # (Auto) (1.20-3.40) K/uL Ferry # (Auto) (0.11-0.59) K/uL Eos # (Auto) (0.00-0.50) K/uL Baso # (Auto) (0.00-0.20) K/uL Immature Gran # (Auto) (0.01-0.20) K/uL PT (9.0-12.0) Seconds INR (0.9-1.1) VBG pH 7.38 (7.36-7.41) VBG pCO2 49 (38-50) mmHg VBG pO2 28 mmHg VBG HCO3 29 mmol/L VBG O2 Saturation < 60.0 % VBG Base Excess 3.0 mEq/L Sodium (136-145) mmol/L Potassium (3.5-5.1) mmol/L Chloride (98-107) mmol/L Carbon Dioxide (21-32) mmol/L Anion Gap (3-11) BUN (6-23) mg/dl Creatinine (0.6-1.4) mg/dl Est Cr Clr Drug Dosing ml/min eGFR BUN/Creatinine Ratio (10-20) Glucose (70-99(Fasting)) mg/dl POC Glucose 474 H* (70-99) mg/dl Estimat Average Glucose mg/dl Hemoglobin A1c (4.5-5.6) % Lactate 1.6 (0.4-2.0) mmol/L Calcium (8.6-10.3) mg/dl Phosphorus (2.5-4.9) mg/dl Magnesium (1.7-2.4) mg/dl Total Bilirubin (0.2-1.0) mg/dl AST (13-39) U/L ALT (7-52) U/L Alkaline Phosphatase (34-104) U/L Troponin I High Sens (0-20) pg/ml Total Protein (6.0-8.3) gm/dl Albumin (3.4-5.0) gm/dl Globulin (2.5-4.0) gm/dl Albumin/Globulin Ratio (0.9-2) Lipase (11-82) U/L TSH (0.300-4.500) uIu/ml Urine Color Urine Appearance (Clear) Urine pH (4.5-7.5) Ur Specific Micro (1.000-1.030) Urine Protein (Negative) Urine Glucose (UA) (Negative) Urine Ketones (Negative) Urine Blood (Negative) Urine Nitrite (Negative) Urine Bilirubin (Negative) Urine Urobilinogen (Negative) Ur Leukocyte Esterase (Negative) Ethyl Alcohol mg/dL < 10.0 (<10.0) mg/dl Adenovirus (PCR) Not Detected (NotDetected) B. pertussis DNA (PCR) Not Detected (NotDetected) B.parapertussis DNA PCR Not Detected (NotDetected) C. pneumoniae DNA (PCR) Not Detected (NotDetected) Coronavirus OC43 (PCR) Not Detected (NotDetected) Coronavirus HKU1 (PCR) Not Detected (NotDetected) Coronavirus 229E (PCR) Not Detected (NotDetected) SARS-CoV-2 (PCR) Not Detected (NotDetected) Coronavirus NL63 (PCR) Not Detected (NotDetected) Human Metapneumovir PCR Not Detected (NotDetected) Influenza Type A (PCR) Not Detected (NotDetected) Influenza Type B (PCR) Not Detected (NotDetected) M. pneumoniae (PCR) Not Detected (NotDetected) Parainfluenza 1 (PCR) Not Detected (NotDetected) Parainfluenza 2 (PCR) Not Detected (NotDetected) Parainfluenza 3 (PCR) Not Detected (NotDetected) Parainfluenza 4 (PCR) Not Detected (NotDetected) RSV (PCR) Not Detected (NotDetected) Entero/Rhino (PCR) Not Detected (NotDetected) Administered Medications Amoxicillin/Clavulanate Potassium (Amoxicillin/Clavulanate 875 Mg Tab) 1 tab PO BIDM [facility]; Protocol Stop: 09/16/24 16:59 Last Admin: 09/09/24 16:45 Dose: 1 tab Documented By: ESDRASF Carvedilol (Carvedilol 3.125 Mg Tab) 3.125 mg PO BIDM [facility] Stop: 10/08/24 16:59 Last Admin: 09/09/24 16:45 Dose: 3.125 mg Documented By: Admin: 09/09/24 08:11 Dose: 3.125 mg Documented By: Admin: 09/08/24 17:22 Dose: 3.125 mg Documented By: GPF Duloxetine HCl (Duloxetine Hcl 20 Mg Cap) 20 mg PO DAILY [facility] Stop: 10/09/24 08:59 Last Admin: 09/09/24 08:11 Dose: 20 mg Documented By: GPF Folic Acid (Folic Acid 1 Mg Tab) 1 mg PO DAILY [facility] Stop: 10/09/24 08:59 Last Admin: 09/09/24 08:11 Dose: 1 mg Documented By: GPF Heparin Sodium (Porcine) (Heparin Sod 5,000 Unit/0.5 Ml Vial) 5,000 units SQ Q12 [facility] Stop: 10/08/24 20:59 Last Admin: 09/09/24 21:04 Dose: 5,000 units Documented By: Admin: 09/09/24 09:36 Dose: Not Given Documented By: Admin: 09/08/24 21:23 Dose: 5,000 units Documented By: AN Insulin Aspart (Insulin Aspart Per Unit Charge) 0 units SC ACHS [facility] Stop: 10/08/24 13:29 Last Admin: 09/09/24 21:03 Dose: 1 units Documented By: AN Co-signed By: SONIA Admin: 09/09/24 16:45 Dose: 3 units Documented By: IRVIN Co-signed By: MARS Admin: 09/09/24 11:46 Dose: 8 units Documented By: IRVIN Co-signed By: MARS Admin: 09/09/24 08:10 Dose: 8 units Documented By: GPJanet Co-signed By: CHAYA Admin: 09/08/24 21:24 Dose: 2 units Documented By: AN Co-signed By: SONIA Admin: 09/08/24 17:21 Dose: 4 units Documented By: GPJanet Co-signed By: MINDY Admin: 09/08/24 13:19 Dose: Not Given Documented By: MMG Insulin Glargine (Lantus Per Unit Charge) 10 units SC DAILY [facility] Stop: 10/09/24 08:59 Last Admin: 09/09/24 08:10 Dose: 10 units Documented By: GPF Co-signed By: CHAYA Magnesium Oxide (Magnesium Oxide 400 Mg Tab) 400 mg PO BID [facility]ONEY Stop: 10/09/24 09:44 Last Admin: 09/09/24 21:06 Dose: 400 mg Documented By: Admin: 09/09/24 10:27 Dose: 400 mg Documented By: GPF Mupirocin (Mupirocin 2% Oint 22 Gm Tube) 1 appln EXT BID RONEY Stop: 10/09/24 09:44 Last Admin: 09/09/24 21:03 Dose: 1 appln Documented By: Admin: 09/09/24 11:46 Dose: 1 appln Documented By: GPF Discontinued Medications Sodium Chloride (Nss) 1,000 mls @ 999 mls/hr IV .Q1H1M ONE Stop: 09/08/24 06:38 Last Admin: 09/08/24 06:21 Dose: Not Given Documented By: Insulin Human Regular 250 (units/ Sodium Chloride) 250 mls @ 5.1 mls/hr IV .Q24H RONEY; Protocol Stop: 10/08/24 05:44 Last Titration: 09/08/24 15:59 Dose: Infused Documented By: GPF Co-signed By: CA Titration: 09/08/24 12:00 Dose: 0 units/hr, 0 mls/hr Documented By: MMG Co-signed By: ARS Titration: 09/08/24 10:48 Dose: 5.1 units/hr, 5.1 mls/hr Documented By: MMG Co-signed By: ARS Titration: 09/08/24 10:10 Dose: 5.1 units/hr, 5.1 mls/hr Documented By: MMG Co-signed By: TIERA Titration: 09/08/24 09:39 Dose: 0 units/hr, 0 mls/hr Documented By: MMG Co-signed By: MMN Titration: 09/08/24 08:44 Dose: 8.5 units/hr, 8.5 mls/hr Documented By: MMG Co-signed By: ARS Titration: 09/08/24 07:36 Dose: 7.1 units/hr, 7.1 mls/hr Documented By: MMAlejandro Co-signed By: TIERA Admin: 09/08/24 06:16 Dose: 5.9 units/hr, 5.9 mls/hr Documented By: Co-signed By: ADRIANNE Parenteral Electrolytes (Plasma-Lyte A Ph 7.4) 1,000 mls @ 999 mls/hr IV .Q1H1M ONE Stop: 09/08/24 06:40 Last Infusion: 09/08/24 07:38 Dose: Infused Documented By: Admin: 09/08/24 06:23 Dose: 999 mls/hr Documented By: Parenteral Electrolytes (Plasma-Lyte A Ph 7.4) 1,000 mls @ 999 mls/hr IV .Q1H1M ONE Stop: 09/08/24 08:03 Last Infusion: 09/08/24 09:27 Dose: Infused Documented By: Admin: 09/08/24 07:36 Dose: 999 mls/hr Documented By: MMG Potassium Chloride/Sodium Chloride (1/2 Nss + 20meq Kcl 1000ml) 20 meq in 1,000 mls @ 80 mls/hr IV .[id number] [facility] Stop: 10/08/24 09:29 Last Infusion: 09/08/24 15:58 Dose: Infused Documented By: Admin: 09/08/24 10:11 Dose: 80 mls/hr Documented By: MMAlejandro Potassium Phosphate 15 mmol/ (Sodium Chloride) 255 mls @ 88 mls/hr IV ONE ONE Stop: 09/08/24 14:53 Last Infusion: 09/08/24 15:15 Dose: Infused Documented By: Admin: 09/08/24 12:37 Dose: 88 mls/hr Documented By: MMAlejandro Sodium Chloride (Nss) 1,000 mls @ 80 mls/hr IV .[id number] [facility] Stop: 09/09/24 17:14 Last Infusion: 09/09/24 17:22 Dose: Infused Documented By: Admin: 09/09/24 04:48 Dose: 80 mls/hr Documented By: Infusion: 09/09/24 04:48 Dose: Infused Documented By: Admin: 09/08/24 16:29 Dose: 80 mls/hr Documented By: GPJanet Sodium Phosphate 15 mmol/ (Sodium Chloride) 255 mls @ 88 mls/hr IV ONE ONE Stop: 09/09/24 12:53 Last Infusion: 09/09/24 13:17 Dose: Infused Documented By: Admin: 09/09/24 10:28 Dose: 88 mls/hr Documented By: GPJanet Insulin Aspart (Insulin Aspart Per Unit Charge) 0 units SC ACHS [facility] Stop: 10/08/24 07:29 Last Admin: 09/08/24 13:20 Dose: Not Given Documented By: MMAlejandro Admin: 09/08/24 07:45 Dose: Not Given Documented By: ECHO Insulin Aspart (Insulin Aspart Per Unit Charge) 0 units SC 0200 [facility] Stop: 09/09/24 02:01 Last Admin: 09/09/24 02:00 Dose: Not Given Documented By: AN Insulin Glargine (Lantus Per Unit Charge) 10 units SC ONE ONE Stop: 09/08/24 12:01 Last Admin: 09/08/24 12:38 Dose: 10 units Documented By: ECHO Co-signed By: RASHAWN Insulin Human Regular (Novolin-R Bolus From Bag) 5.9 units IV NOW STA Stop: 09/08/24 05:50 Last Admin: 09/08/24 06:20 Dose: 5.9 units Documented By: Co-signed By: ADRIANNE Yeecellaneous (Stat Iv Infusion Titration Per Protocol) 1 each N/A NOW STA Stop: 09/08/24 05:41 Last Admin: 09/08/24 06:21 Dose: 1 each Documented By: Miscellaneous (Dka Goal Range 150-250 Mg/Dl) 1 each N/A ONE ONE Stop: 09/08/24 05:41 Last Admin: 09/08/24 06:20 Dose: 1 each Documented By: Imaging Data Radiologist's Impression: Chest X-Ray 09/08/24 05:38 EXAM: XR chest 1V portable CLINICAL HISTORY: Altered Mental Status. TECHNIQUE: An X-ray image of the chest is obtained in AP projection. COMPARISON: 01/06/2024 FINDINGS: Pulmonary Parenchyma: Prominent central bronchovascular markings could be due to mild pulmonary congestion.(Unchanged) No evidence of consolidation, collapse, or focal opacities. No evidence of pleural effusion or pleural thickening. Heart and Mediastinum: Heart size and shape are normal. No mediastinal widening or masses. Bony Thorax: Degenerative changes of the visualized skeleton. Soft Tissues: Soft tissues overlying the chest wall are unremarkable. IMPRESSION: 1. No acute cardiopulmonary abnormalities are identified. 2. No significant interval change since the previous study. Electronically signed by Shaun Choudhury 09-08-2024 08:[address] 09/08/24 05:38 EXAM: CT head/brain wo con CLINICAL HISTORY: ams TECHNIQUE: Axial non-contrast CT scan of the brain was performed from the skull base to the high parietal region. One of the following dose reduction techniques were utilized for this exam: Automated exposure control, adjustment of the mA and/or kV according to patient size, use of iterative reconstruction. DLP: 625.80 mGy-cm COMPARISON: CT 01/06/2024 FINDINGS: Brain Parenchyma: Bilateral cerebral and cerebellar white matter hypodense attenuation within scattered hypodense foci distinctive of small artery disease with ischemic changes More deep hypodense patch is seen implicating the bilateral high frontal periventricular regions without mass effect, likely ischemic Bilateral basal ganglia lacunar infarcts No evidence of acute infarct, hemorrhage, or mass effect. Ventricular System: Exaggerated extra-axial CSF spaces and basal cisterns as well as dilated ventricular system. Subarachnoid Spaces: Exaggerated extra-axial CSF spaces and basal cisterns as well as dilated ventricular system. Cerebellum and Brainstem: No masses, lesions, Orbits: Normal appearance of the globes, optic nerves, and extraocular muscles. No evidence of orbital masses or abnormal signal. Sinuses: Clear paranasal sinuses. No evidence of sinusitis or mucosal thickening. Mastoid Air Cells: Clear mastoid air cells. No evidence of mastoiditis. Skull: Normal skull morphology. IMPRESSION: 1. No acute infarction on noncontrast CT or hemorrhage. For assessment of acute infarctions, MR diffusion is advised. 2. Diffuse cerebral microangiopathy with bilateral white matter ischemic changes, stable. 3. Bilateral basal ganglia lacunar infarcts, stable. 4. Age-related brain involutional changes, stable. Electronically signed by Shaun Choudhury 09-08-2024 06:40 AM Discharge Plan Visit Data Chief Complaint: Hyperglycemia Stated Complaint: Hyperglycemia ED Provider: Flavia Shay Discharge Problem: DKA (diabetic ketoacidosis), Confusion, Elevated troponin, Dehydration Patient Disposition: Admitted As Inpatient Discharge Instructions Interventions: ED Discharge Assessment Last Done: 09/08/24 12:22
[2024-09-08 07:35] LABS: HCO3 VBG 29 mmol/L; Oxygen Saturation VBG < 60.0 %; PCO2 VBG 49 mmHg (38-50); PO2 VBG 28 mmHg; pH VBG 7.38 (7.36-7.41)
[2024-09-08] MEDS: INSULIN ASPART PER UNIT CHARGE SC SCH ×2 (07:45→13:19)
[2024-09-08 07:54] LABS: Estimated Average Glucose 401 mg/dl; Hemoglobin A1C 15.6 % (4.5-5.6)
--- NOTE | 2024-09-08 08:04 | Electrocardiogram Report ---
Test Reason : Blood Pressure : */* mmHG Vent. Rate : 77 BPM Atrial Rate : 77 BPM P-R Int : 124 ms QRS Dur : 86 ms QT Int : 412 ms P-R-T Axes : 76 82 83 degrees QTcB Int : 466 ms Normal sinus rhythm Normal ECG When compared with ECG of 09-Jan-2024 07:20, No significant change was found Confirmed by Swapnil Allen ([id number]) on 09/08/2024 8:04:32 AM Referred By: REFERRED SELF Confirmed By: Swapnil Allen
--- NOTE | 2024-09-08 08:30 | XRay Report ---
EXAM: XR chest 1V portable CLINICAL HISTORY: Altered Mental Status. TECHNIQUE: An X-ray image of the chest is obtained in AP projection. COMPARISON: 01/06/2024 FINDINGS: Pulmonary Parenchyma: Prominent central bronchovascular markings could be due to mild pulmonary congestion.(Unchanged) No evidence of consolidation, collapse, or focal opacities. No evidence of pleural effusion or pleural thickening. Heart and Mediastinum: Heart size and shape are normal. No mediastinal widening or masses. Bony Thorax: Degenerative changes of the visualized skeleton. Soft Tissues: Soft tissues overlying the chest wall are unremarkable. IMPRESSION: 1. No acute cardiopulmonary abnormalities are identified. 2. No significant interval change since the previous study. Electronically signed by Shaun Choudhury 09-08-2024 08:29 AM
--- OUTSIDE RECORDS SUMMARY | 2024-09-08 08:31 | External Medical Summary | Summary of Care ---
Author Name Unknown Organization [facility] Address [address] [place] [address] Phone [phone] Care Team Providers Care Delivery Table Feeder Name Role Phone Gracie Oseguera MD Primary Care Provider [phone] Reason for Visit * Reason Onset Date Comments Medication Refill 07/30/2024 Encounter Details Date Type Department Care Team (Late st Contact Info) Description 07/30/2024 Refill General Internal Medicine [facility] [address] [facility] [place] [id number] Gracie Oseguera MD 200 [facility] [place] [address] Type 2 diabetes mellitus with hemoglobin A1c goal of less than 7.0% ([facility]) Allergies No known active allergiesdocumented as of this encounter (statuses as of 07/31/2024) Medications polyethylene glycol 3350 (MIRALAX) 255 gram powderIndication s:Other constipation Take 17 g by mouth as needed for Constipation. Dissolve one heaping tablespoon in 8 ounces of water or juice. 1 Bottle 2 06/16/20 18 Active Daily Elise Oral Tablet Take 1 Tablet by mouth in the morning. Active Thiamine HCl 100 MG Oral Tablet (vitamin B-1)Indications: Alcohol abuse Take 1 Tablet by mouth in the morning. 90 Tablet 3 02/26/20 23 Active Magnesium Oxide -Mg Supplement 400 (240 Mg) MG Oral Tablet (Mag-Ox)Indicati ons:Hypokalemia Take 1 Tablet by mouth in the morning. In the morning.. 90 Tablet 3 02/26/20 23 Active NovoLOG FlexPen 100 UNIT/ML Subcutaneous Solution Pen-injector (insulin aspart) Take 4 units before normal meals and 2 units with snack 3 mL 5 02/26/20 23 Active Additional Information Patient taking differently: Take 3 units before normal meals and 2 units with snack, Reported on 06/07/2024 Novofine Pen Needle 32G X 6 MM (NOVOFINE 32G PEN NEEDLE) Use one needle per injection with flexpen 100 Each 3 03/03/20 23 Active OneTouch Verio In Vitro Strip (Glucose Blood)Indication s:Type 2 diabetes mellitus with hemoglobin A1c goal of less than 7.0% (HCC) Use to check blood sugars 3 times daily. E 11.9 300 Strip 3 03/10/20 23 Active Dexcom G7 Broom Man DeviceIndication s:Type 2 diabetes mellitus with hemoglobin A1c goal of less than 7.0% (HCC) USE TO CHECK BLOOD SUGARS CONTINOUSLY 1 Each 03/14/20 23 Active Folic Acid 1 MG Oral TabletIndication s:Alcohol abuse TAKE 1 TABLET BY MOUTH EVERY MORNING 90 Tablet 1 01/10/20 24 Active Carvedilol 3.125 MG Oral Tablet (Coreg)Indicatio ns:HTN, goal below 140/90 TAKE 1 TABLET TWICE DAILY WITH BREAKFAST AND DINNER 180 Tablet 03/29/20 24 Active Dexcom G7 SensorIndication s:Type 2 diabetes mellitus with hemoglobin A1c goal of less than 7.0% (HCC) CHANGE EVERY 10 DAYS. USE TO CHECK BLOOD SUGARS CONTINUOUSLY 9 Each 06/07/20 24 Active metFORMIN HCl ER 500 MG Oral Tablet Extended Release 24 Hour (Glucophage XR)Indications:T ype 2 diabetes mellitus with hemoglobin A1c goal of less than 7.0% (HCC) Take 2 Tablets by mouth in the morning and 2 Tablets before bedtime. 360 Tablet 2 06/07/20 24 Active DULoxetine HCl 20 MG Oral Capsule Delayed Release Particles (duloxetine)Paola cations:MAYELA (generalized anxiety disorder) Take 1 Capsule by mouth in the morning. Do not cut, crush or chew. 90 Capsule 3 06/07/20 24 Active Potassium Chloride 20 MEQ Oral PacketIndication s:Hypokalemia Take 20 mEq by mouth in the morning. 90 Packet 3 06/07/20 24 Active Insulin Glargine Solostar 100 UNIT/ML Subcutaneous Solution Pen-injector (Lantus SoloStar)Indicat ions:Type 2 diabetes mellitus with hemoglobin A1c goal of less than 7.0% (HCC) Inject 10 Units under the skin in the morning. 15 mL 1 07/31/19 25 Active Lantus SoloStar 100 UNIT/ML Subcutaneous Solution Pen-injector (Insulin Glargine Solostar)Indicat ions:Type 2 diabetes mellitus with hemoglobin A1c goal of less than 7.0% (HCC) INJECT 20 UNITS UNDER THE SKIN IN THE MORNING. IF FASTING SUGAR IS > 125 FOR 3 DAYS THEN INCREASE BY 2 UNITS AND CONTINUE. 15 mL 1 01/10/20 24 025 Discontin ued(Refil l) documented as of this encounter (statuses as of 07/31/2024) Active Problems Problem Noted Date Diagnosed Date Type 2 diabetes mellitus with hypoglycemia witho ut coma 06/07/2024 Hypokalemia 06/07/2024 Gastro-esophageal reflux disease without esophag itis 06/07/2024 Cocaine abuse, in remission 06/07/2024 Major depressive disorder with single episode Imbalance 06/07/2024 Other chronic pancreatitis 04/20/2023 Type 2 diabetes mellitus wit h hemoglobin A1c goal of less than 7.0% 02/24/2023 Assessment & Plan (03/03/2023 10:45 AM EDT): Insulin dependent Recent referral to [facility] for management Hemoglobin AIC Results: Lab Results Component Value Date/Time HEMOGLOBIN A1C - [facility] 17.2 (H) 02/24/2023 03:17 PM HEMOGLOBIN A1C - [facility] 9.5 (H) 05/10/2022 12:00 PM HEMOGLOBIN A1C - [facility] 6.5 (H) 03/15/2018 11:31 AM Phantom limb syndrome with pain 05/10/2022 Assessment & Plan (03/03/2023 11:54 AM EDT): Previously on gabaoentin- no longer taking feels controlled without medication Recurrent acute pancreatitis 03/15/2018 History of acute alcohol intoxication 03/15/2018 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 10/10/2017 Assessment & Plan (03/03/2023 11:54 AM EDT): Controlled with duloxetine HTN, goal below 140/90 10/10/2017 Assessment & Plan (03/03/2023 10:44 AM EDT): Controlled with BB daily BP Readings from Last 4 Encounters: 02/25/23 114/62 02/24/23 126/80 05/10/22 122/72 06/16/18 122/76 BMI 27.0-27.9,adult 10/10/2017 Traumatic amputation of leg below knee, right, s equela Alcohol abuse documented as of this encounter (statuses as of 07/31/2024) Resolved Problems Problem Noted Date Diagnosed Date Resolved Date Acute respiratory failure with hypoxia 03/03/2023 03/03/2023 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 03/03/2023 04/20/2023 Assessment & Plan (03/03/2023 11:47 AM EDT): Managed via [facility] for wound care Acquired absence of right leg below knee 02/24/2023 03/03/2023 Hypokalemia 05/10/2022 04/20/2023 Alcohol dependence with with drawal, unspecified 03/15/2018 03/15/2018 Body mass index (BMI) of 40. 0 to 44.9 in adult 11/08/2017 12/20/2017 Overview: Per Obesity protocol #1 documented as of this encounter (statuses as of 07/31/2024) Immunizations Name Administration Dates Next Due Pneumococcal Conjugate Vacci ne, 20-valent ([id number]) 02/24/2023 Pneumococcal Polysaccharide PPV23 (Pneumovax) 05/04/2015 Seasonal Influenza, PF, 6 M & above, IM , (FluLaval or Fluzone) 02/24/2023,03/15/2018,03/25/2017 Seasonal Influenza, Trivalen t, (IIV3), PF, (Fluzone) 06/07/2024 TDAP (age 10 and older)(Boostrix) 03/25/2017 documented [...] +beers per day PHQ-2 Answer Date Recorded PHQ Adult Total Score 0 06/07/2024 Hunger Vital Sign Answer Date Recorded Within the past 12 months, y ou worried that your food would run out before you got the money to buy more. Never true 01/12/20 24 Within the past 12 months, t he food you bought just didn't last and you didn't have money to get more. Never true 01/12/2024 Childcare Answer Date Recorded Do you feel overwhelmed with taking care of a child, family member or friend? No 01/12/2024 Does your family need help f inding childcare? (Household - for ages 0-17 years) Not on file 01/12/2024 Clothing Answer Date Recorded Have you been unable to get clothing when it was really needed? No 01/12/2024 Is your family able to get c lothes or diapers when needed? (Household - for ages 0-17 years) Not on file 01/12/2024 Personal Safety Answer Date Recorded Do you feel unsafe or have concerns for your saf ety? No 01/12/2024 Do you have concerns for you r family's safety? (Household - for ages 0-17 years) Not on file 01/12/2024 Utilities Answer Date Recorded Do you have trouble paying y our heating, water, or electric bill? No 01/12/2024 Is your family able to pay t he heat, water, or electric bill? (Household - for ages 0-17 years) Not on file 01/12/2024 Does your family have access to good internet? (Household - for ages 0-17 years) Not on file 01/12/2024 Employment Status Answer Date Recorded Are you unemployed or without regular income? No 01/12/2024 Does the household have a re gular source of income? (Household - for ages 0-17 years) Not on file 01/12/2024 Social Connections Answer Date Recorded How often do you feel lonely or isolated from th ose around you? Never 01/12/2024 Financial Resource Strain Answer Date R ecorded Do you have any trouble payi ng for your medications, or do you think you might in the future? No 01/12/2024 Does your family have troubl e paying for medicine? (Household - for ages 0-17 years) Not on file 01/12/2024 Transportation Needs Answer Date Record ed READ ONLY Do you have troubl e getting a ride to medical visits or work? Never True 01/12/2024 Does your family have a hard time getting a ride to doctors visits? (Household - for ages 0-17 years) Not on file 01/12/2024 Has lack of transportation k ept you from medical appointments, meetings, work, or from getting things needed for daily living? Check all that apply. No 01/12/2024 Do you (or your family) have trouble finding or paying for a ride (transportation)? (Household - for ages 0-17 years) Not on file 01/12/2024 Housing Stability Answer Date Recorded Do you currently live in a s helter or have no steady place to sleep at night? No 01/12/2024 READ ONLY Do you think you a re at risk of becoming homeless? No 01/12/2024 Does your family worry about paying for your home or becoming homeless? (Household - for ages 0-17 years) Not on file 0 01/12/2024 Are you homeless or worried that you might be in the future? No 01/12/2024 Are you (or your family) sergey eless or worried that you might be in the future? (Household - for ages 0-17 years) Not on file Food Insecurity Answer Date Recorded Do you need food for this week? No 01/12/2024 Are you able to get enough f ood for your family? (Household - for ages 0-17 years) Not on file 01/12/2024 Does your family need food t his week? (Household - for ages 0-17 years) Not on file 01/12/2024 Do you always have enough fo od for your family? (Household - for ages 0-17 years) Not on file 01/12/2024 Food Insecurity Answer Date Recorded Within the past 12 months, y ou worried that your food would run out before you got the money to buy more. Never true 01/12/20 24 Within the past 12 months, t he food you bought just didn't last and you didn't have money to get more. Never true 01/12/2024 Do you need food for this week? No 01/12/2024 Sex and Gender Information Value Date Recorded Sex Assigned at Not on file Legal Sex Male 4:24 PM EDT Gender Identity Not on file Sexual Orientation Not on file documented as of this encounter Miscellaneous Notes * Telephone Encounter - Gracie Oseguera MD - 07/31/2024 8:30 AM ESTSigned Prescriptions: Disp Refills Insulin Glargine Solostar 100 UNIT/ML Subc*15 mL 1 Sig: Inject 10 Units under the skin in the morning. Authorizing Provider: GRACIE OSEGUERA * Telephone Encounter - Jeri Jamison RP - 07/30/2024 5:29 PM ESTPending Prescriptions: Disp Refills Insulin Glargine Solostar 100 UNIT/ML Subc*15 mL 1 Sig: Inject 10 Units under the skin in the morning. * Telephone Encounter - Jeri Jamison RP - 07/30/2024 5:29 PM EST Pended as how patient reports currently taking medication Pending Prescriptions: Disp Refills Insulin Glargine Solostar 100 UNIT/ML Sub*15 mL 1 Sig: Inject 10 Units under the skin in the morning. Thank you, Jeri Jamison [facility] Clinical Pharmacist [facility] 07/30/24 5:29 PM [phone] * Telephone Encounter - Tanika Banda PHARM Tech - 07/30/2024 5:11 PM EST Pt requesting HIGH PRIORITY due to he has only 1-2 shots left Did you pend patient's preferred pharmacy and medication before forwarding?yes Pharmacy: [id number] [place] Pending Prescriptions: Disp Refills Insulin Glargine Solostar 100 UNIT/ML Sub*15 mL 1 Last Visit: 06/07/2024 (in office), Visit date not found (telemedicine) Next Visit: 12/06/2024 If no future appointments scheduled, and last appointment is greater than a year ago, please schedule patient for a follow-up appointment Last date the medication was ordered: 01/10/2024 Is this request for a controlled substance?No Urine Drug Screen:No results found for this or any previous visit. Patient Phone Numbers Labs: Lab Results Component Value Date/Time CREAT 0.7 06/07/2024 02:42 PM CREAT 1.95 (A) 11/13/2018 12:00 AM CREAT 0.8 03/15/2018 11:31 AM POTASSIUM 4.4 06/07/2024 02:42 PM POTASSIUM 3.5 11/13/2018 12:00 AM POTASSIUM 4.1 03/15/2018 11:31 AM TSH 1.99 06/07/2024 02:42 PM LDL 109 06/07/2024 02:42 PM LDL 93 05/26/2023 10:41 AM LDL 130 (H) 10/10/2017 11:48 AM LDL NOT APPLICABLE 10/10/2017 11:48 AM ALT 14 06/07/2024 02:42 PM ALT 16 03/15/2018 11:31 AM HGBA1C 7.2 (H) 06/07/2024 02:42 PM HGBA1C 6.5 (H) 03/15/2018 11:31 AM documented in this encounter Plan of Treatment Upcoming Encounters Date Type Department Care Team (Late st Contact Info) Description 12/06/2024 1:40 PM EDT Office Visit General Internal Medicine [facility] [address] [place] [address] Gracie Oseguera MD [address] [place] [address] Health Maintenance Due Date Last Done Comments Diabetic Eye Exam 1980 Cologuard 2007 Colonoscopy 2007 Colorectal Cancer Screening 2007 Fecal Occult Blood Test 2007 Sigmoidoscopy 2007 Zoster Vaccines (1 of 2) 2012 DISCUSS TOBACCO CESSATION (REFER TO SMARTSET #3291) 03/15/2019 03/15/2018 Hepatitis B Vaccine (1 of 3 - Risk 3-dose series) 2022 Albumin/Creatinine Ratio 05/10/2023 05/10/2022 COVID-19 Vaccine ( season) 2024 HbA1c 12/06/2024 06/07/2024, 04/20, 02/24/2023, Additional history exists Depression Monitoring 06/07/2025 06/07/2024 Diabetic Foot Exam 06/07/2025 06/07/2024, 02/24/2023 GFR 06/07/2025 06/07/2024, 12/2022, 05/10/2022, Additional history exists DTap/Tdap Vaccines (2 - Td or Tdap) 03/25/2027 03/25/2017 Lipid Panel 06/07/2029 06/07/2024, 120 12/2022, 05/10/2022, Additional history exists Lung Cancer Screening Completed 12/08/2017 Pneumococcal Vaccine: 50+ Years Completed 02/24/2023, 05/04/2015 Influenza Vaccine (FLU shot) Completed , 02/24/2023, 02/24/2023, Additional history exists HPV (Gardasil) Vaccine Aged Out No lo [...] Advanced care planning/counseling discussion Other specified counseling Type 2 diabetes mellitus with hemoglobin A1c goal of less than 7.0% (HCC) documented in this encounter Care Teams Delivery Table Feeder Relationship Specialty Start Date End Date Gracie Oseguera MD [address] [place] [id number] PCP - General Internal Medicine 03/25/17 documented as of this encounter
--- OUTSIDE RECORDS SUMMARY | 2024-09-08 08:31 | External Medical Summary | Summary of Care ---
Author Name Unknown Organization [facility] Address [address] [place] [address] Phone [phone] Care Team Providers Care Window Assembler Name Role Phone Liyah Oseguera MD Primary Care Provider [phone] Reason for Visit * Reason Onset Date Comments Test Results 06/12/2024 Encounter Details Date Type Department Care Team (Late st Contact Info) Description 06/12/2024 Telephone General Internal Medicine [facility] 200 [facility] [place] [address] Liyah Oseguera MD 200 [facility] [place] [address] Test Results Allergies No known active allergiesdocumented as of this encounter (statuses as of 07/03/2024) Medications polyethylene glycol 3350 (MIRALAX) 255 gram [...] the morning.. 90 Tablet 3 3 Active NovoLOG FlexPen 100 UNIT/ML Subcutaneous Solution Pen-injector (insulin aspart) Take 4 units before normal meals and 2 units with snack 3 mL 5 3 Active Additional Information Patient taking differently: Take [...] 300 Strip 3 3 Active Dexcom G7 Cloth Bleaching Range Tender DeviceIndication s:Type 2 diabetes mellitus with hemoglobin A1c goal of less than 7.0% (HCC) USE TO CHECK BLOOD SUGARS CONTINOUSLY 1 Each 3 Active Lantus SoloStar 100 UNIT/ML Subcutaneous Solution Pen-injector (Insulin Glargine Solostar)Indicat ions:Type 2 diabetes mellitus with hemoglobin A1c goal of less than 7.0% (HCC) INJECT 20 UNITS UNDER THE SKIN IN THE MORNING. IF FASTING SUGAR IS > 125 FOR 3 DAYS THEN INCREASE BY 2 UNITS AND CONTINUE. 15 mL 1 4 Active Additional Information Patient taking differently: 10 Units Subcutaneous Daily(AM), Reported on 06/07/2024 Folic Acid 1 MG Oral TabletIndication s:Alcohol abuse TAKE 1 TABLET BY MOUTH EVERY MORNING 90 Tablet 1 4 Active Carvedilol 3.125 MG Oral Tablet (Coreg)Indicatio ns:HTN, goal below 140/90 TAKE 1 TABLET TWICE DAILY WITH BREAKFAST AND DINNER 180 Tablet 4 Active Dexcom G7 SensorIndication s:Type 2 diabetes mellitus with hemoglobin A1c goal of less than 7.0% (HCC) CHANGE EVERY 10 DAYS. USE TO CHECK BLOOD SUGARS CONTINUOUSLY 9 Each 4 Active metFORMIN HCl ER 500 MG Oral Tablet Extended Release 24 Hour (Glucophage XR)Indications:T ype 2 diabetes mellitus with hemoglobin A1c goal of less than 7.0% (HCC) Take 2 Tablets by mouth in the morning and 2 Tablets before bedtime. 360 Tablet 2 4 Active DULoxetine HCl 20 MG Oral Capsule Delayed Release Particles (duloxetine)Paola cations:MAYELA (generalized anxiety disorder) Take 1 Capsule by mouth in the morning. Do not cut, crush or chew. 90 Capsule 3 4 Active Potassium Chloride 20 MEQ Oral PacketIndication s:Hypokalemia Take 20 mEq by mouth in the morning. 90 Packet 3 4 Active documented as of this encounter (statuses as of 07/03/2024) Active Problems Problem Noted Date Diagnosed Date [...] AM EDT): Insulin dependent Recent referral to [facility] for management Hemoglobin AIC [...] as of this encounter (statuses as of 07/03/2024) Resolved Problems Problem Noted Date Diagnosed Date Resolved Date Acute respiratory failure with hypoxia 03/03/2023 03/03/2023 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 03/03/2023 04/20/2023 Assessment & Plan (03/03/2023 11:47 AM EDT): Managed via [facility] for wound care Acquired absence of right leg below knee 02/24/2023 03/03/2023 Hypokalemia 05/10/2022 04/20/2023 Alcohol dependence with with drawal, unspecified 03/15/2018 03/15/2018 Body mass index (BMI) of 40. 0 to 44.9 in adult 11/08/2017 12/20/2017 Overview: Per Obesity protocol #1 documented as of this encounter (statuses as of 07/03/2024) Immunizations Name Administration Dates Next Due Pneumococcal Conjugate Vacci ne, 20-valent ([id number]) 02/24/2023 Pneumococcal Polysaccharide PPV23 (Pneumovax) 05/04/2015 Seasonal [...] 01/12/2024 Does the household have a re lar [...] ages 0-17 years) Not on file 01/12/2024 Sex and Gender Information Value Date Recorded Sex Assigned at Not on file Legal Sex Male 4:24 PM EDT Gender Identity Not on file Sexual Orientation Not on file documented as of this encounter Miscellaneous Notes * Telephone Encounter - Katerina Luong LPN - 2024 3:41 PM EST Order submitted via [employer] * Telephone Encounter - Liyah Oseguera MD - 06/28/2024 7:30 PM EST Done * Telephone Encounter - Jagdish Prado CMA - 06/28/2024 3:[address] Oseguera, are you willing to addend your note regarding rolling walker to a wheelchair? It is needed to be noted from office visit note for pt DME to be distributed. * Telephone Encounter - Liyah Oseguera MD - 06/25/2024 5:19 PM EST Done * Telephone Encounter - Liyah Oseguera MD - 06/12/2024 10:29 AM EST He only said rolling walker in visit I ordered wheelchair for him in December of 2022 If he didn't get it then I can order - please pend * Telephone Encounter - Lennox Singh RN - 06/12/2024 7:32 AM EST Called patient and informed him of Dr. Oseguera's previous message. He verbalized understanding of all information. Patient said he would like Dr. Oseguera to order him a wheelchair. I did inform him that Dr. Osegueraordered a rollator walker with seat, but he would still like a wheelchair. Please advise. * Telephone Encounter - Lennox Singh RN - 06/12/2024 7:29 AM EST ----- Message from Liyah Oseguera MD sent at 06/08/2024 4:10 PM EST ----- Hba1c is slightly up but acceptable for him . He doesn't eat on time and occ getting low sugar which has gotten better so suggest to focus on checking sugar before meal , cover with novolog and cont lantus . Send sugar reading to office in 1-2 week for further adjustment . Suggest to get POC hba1c at home by [facility] Sodium slightly low form high sugar . Rest ok documented in this encounter Plan of Treatment Upcoming Encounters Date Type Department Care Team (Late st Contact Info) Description 12/06/2024 1:40 PM EDT Office Visit [facility] [place] [address] [facility] [place] [address] Liyah Oseguera MD 200 [facility] [place], [place] [address] Health Maintenance Due Date Last Done Comments Diabetic Eye Exam 1980 Cologuard 2007 Colonoscopy 2007 Colorectal Cancer Screening 2007 Fecal Occult Blood Test 2007 Sigmoidoscopy 2007 Zoster Vaccines (1 of 2) 2012 DISCUSS TOBACCO CESSATION (REFER TO SMARTSET #3291) 03/15/2019 03/15/2018 Albumin/Creatinine Ratio 05/10/2023 05/10/2022 COVID-19 Vaccine ( season) 2024 HbA1c 12/06/2024 06/07/2024, 04/20, 02/24/2023, Additional history exists Depression Monitoring 06/07/2025 06/07/2024 Diabetic Foot Exam 06/07/2025 06/07/2024, 02/24/2023 GFR 06/07/2025 06/07/2024, 12/2022, 05/10/2022, Additional history exists DTap/Tdap Vaccines (2 - Td or Tdap) 03/25/2027 03/25/2017 Lipid Panel 06/07/2029 06/07/2024, 12/2022, 05/10/2022, Additional history exists Lung Cancer [...] Advanced care planning/counseling discussion Other specified counseling Traumatic amputation of leg below knee, right, sequela (HCC)- Primary Imbalance Abnormality of gait documented in this encounter Care Teams Window Assembler Relationship Specialty Start Date End Date Liyah Oseguera MD [address] [facility] [place] [address] PCP - General Internal Medicine 03/25/17 documented as of this encounter
--- OUTSIDE RECORDS SUMMARY | 2024-09-08 08:31 | External Medical Summary | Summary of Care ---
Author Name Unknown Organization [facility] Address [address] [place] [address] Phone [phone] Care Team Providers Care Hog Dropper Name Role Phone Liyah Oseguera MD Primary Care Provider [phone] Reason for Visit * Reason Onset Date Comments Follow Up Medication Administration 06/07/2024 Flu an d/or Pneumo Inj Encounter Details Date Type Department Care Team (Late st Contact Info) Description 06/07/2024 1:40 PM EST Office Visit General Internal Medicine [facility] [address] [facility] [place] [address] Liyah Oseguera MD [address] [place] [address] Type 2 diabetes mellitus with hemoglobin A1c goal of less than 7.0% ([facility])*; HTN, goal below 140/90; Type 2 diabetes mellitus with hypoglycemia without coma, with long-term current use of insulin (HCC); Traumatic amputation of leg below knee, right, sequela ([facility]); Recurrent acute pancreatitis; Phantom limb syndrome with pain ([facility]); Other chronic pancreatitis ([facility]); Mild episode of recurrent major depressive disorder ([facility]); History of acute alcohol intoxication; Need for prophylactic vaccination and inoculation against influenza; Hyperlipidemia with target LDL less than 100; BMI 27.0-27.9,adult; Alcohol abuse; Type 2 diabetes mellitus with hypoglycemia without coma, unspecified whether superintendent terminal insulin use (HCC); Hypokalemia; Gastro-esophageal reflux disease without esophagitis; Cocaine abuse, in remission (HCC); Major depressive disorder with single episode, remission status unspecified; Encounter for long-term (current) use of medications; MAYELA (generalized anxiety disorder) Allergies No known active allergiesdocumented as of this encounter (statuses as of 06/27/2024) Medications polyethylene glycol 3350 (MIRALAX) 255 gram [...] Strip 3 03/10/20 23 Active Dexcom G7 Tissue Technologist DeviceIndication s:Type 2 diabetes mellitus with hemoglobin A1c goal of less than 7.0% (HCC) USE TO CHECK BLOOD SUGARS CONTINOUSLY 1 Each 03/14/20 23 Active Lantus SoloStar 100 UNIT/ML Subcutaneous Solution Pen-injector (Insulin Glargine Solostar)Indicat ions:Type 2 diabetes mellitus with hemoglobin A1c goal of less than 7.0% (HCC) INJECT 20 UNITS UNDER THE SKIN IN THE MORNING. IF FASTING SUGAR IS > 125 FOR 3 DAYS THEN INCREASE BY 2 UNITS AND CONTINUE. 15 mL 1 01/10/20 24 Active Additional Information Patient taking differently: 10 [...] morning. 90 Packet 3 06/07/20 24 Active Potassium Chloride 20 MEQ Oral PacketIndication s:Hypokalemia Take 20 mEq by mouth in the morning. 90 Packet 3 07/15/19 24 024 Discontin ued(Refil l) DULoxetine HCl 20 MG Oral Capsule Delayed Release Particles (duloxetine)Paola cations:MAYELA (generalized anxiety disorder) Take 1 Capsule by mouth in the morning. Do not cut, crush or chew. 30 Capsule 5 08/01/19 24 024 Discontin ued(Refil l) metFORMIN HCl ER 500 MG Oral Tablet Extended Release 24 Hour (Glucophage XR)Indications:T ype 2 diabetes mellitus with hemoglobin A1c goal of less than 7.0% (HCC) Take 2 Tablets by mouth in the morning and 2 Tablets before bedtime. 360 Tablet 2 08/09/19 24 024 Discontin ued(Refil l) Dexcom G7 SensorIndication s:Type 2 diabetes mellitus with hemoglobin A1c goal of less than 7.0% (HCC) CHANGE EVERY 10 DAYS. USE TO CHECK BLOOD SUGARS CONTINUOUSLY 9 Each 03/29/20 24 024 Discontin ued(Refil l) documented as of this encounter (statuses as of 06/27/2024) Active Problems Problem Noted Date Diagnosed Date [...] as of this encounter (statuses as of 06/27/2024) Resolved Problems Problem Noted Date Diagnosed Date Resolved Date Acute respiratory failure with hypoxia 03/03/2023 03/03/2023 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 03/03/2023 04/20/2023 Assessment & Plan (03/03/2023 11:47 AM EDT): Managed via [facility] for wound care Acquired absence of right leg below knee 02/24/2023 03/03/2023 Hypokalemia 05/10/2022 04/20/2023 Alcohol dependence with with drawal, unspecified 03/15/2018 03/15/2018 Body mass index (BMI) of 40. 0 to 44.9 in adult 11/08/2017 12/20/2017 Overview: Per Obesity protocol #1 documented as of this encounter (statuses as of 06/27/2024) Immunizations Name Administration Dates Next Due Pneumococcal Conjugate Vacci ne, 20-valent ([id number]) 02/24/2023 Pneumococcal Polysaccharide PPV23 (Pneumovax) 05/04/2015 Seasonal [...] Sign Reading Time Taken Comments Blood Pressure 122/88 06/07/2024 1:49 PM EST Pulse 68 06/07/2024 1:49 PM EST Temperature 36.9 C (98.4 F) 06/07/2024 1:49 PM ES T Respiratory Rate 18 06/07/2024 1:49 PM EST Oxygen Saturation 99% 06/07/2024 1:49 PM EST Inhaled Oxygen Concentration - - Weight 73 kg (160 lb 14.4 oz) 06/07/2024 1:49 PM EST Height 173 cm (5' 8.11") 06/07/2024 1:49 PM EST Body Mass Index 24.39 06/07/2024 1:49 PM EST documented in this encounter Patient Instructions * Patient Instructions* Susan Clements CMA - 06/07/2024 2:32 PM EST Diabetes: Keeping Feet Healthy Inspect your feet [...] calluses yourself. Talk to your doctor or director presales (a doctor who specializes in foot care) [...] the area doesnt appear to be healing. [id number] [employer], [address] [place] [address], [place] [address]. All rights reserved. This information is not intended as a substitute for professional medical care. Always follow your healthcare professional's instructions. documented in this encounter Progress Notes * Liyah Oseguera MD - 06/07/2024 2:03 PM EST Images from the original note were not included. History of Present Illness Umair Harrison is a 63 year old male that presents for Follow Up and Medication Administration (Flu and/or Pneumo Inj) 63 year old male with PMH significant for hypertension, hyperlipidemia, depression, recurrent pancreatitis, alcohol abuse, obesity, tobacco abuse,status post right BKA with phantom pain presents herefor recheck. Acute concern :- -needs script for rolling walker and prosthesis liner -few los sugar garcia in the evening and morning - doesn't eat on time -still drinks alcohol but less , was in ER few times due to intoxication and passing out due to lowsugar in the setting of alcohol abuse Interimmedical history : now being followed by [facility] and taking meds regularly but not sure if takingcymbalta Watching diet and exercise : tries to watch diet but no exercise due to AKA Routine labs : due Routine HM : declines covid and shingles vaccines Chronic medical problem: reviewed and stable Physical Exam Vitals: 06/07/24 1349 Temp: 98.4 F (36.9 C) Pulse: 68 Resp: 18 SpO2: 99% BP: 122/88 BMI: 24.39 Physical Exam Vitals and nursing note reviewed. Constitutional: General: He is not in acute distress. Appearance: He is normal weight. HENT: Head: Normocephalic. Cardiovascular: Rate and Rhythm: Normal rate and regular rhythm. Pulmonary: Effort: Pulmonary effort is normal. No respiratory distress. Breath sounds: No wheezing. Abdominal: General: Bowel sounds are normal. There is no distension. Palpations: Abdomen is soft. There is no mass. Musculoskeletal: General: No swelling, tenderness or signs of injury. Cervical back: Neck supple. No rigidity. Left lower leg: No edema. Comments: RT AKA with prosthesis Skin: General: Skin is warm. Findings: No lesion or rash. Neurological: Mental Status: He is alert. Psychiatric: Mood and Affect: Mood normal. I have reviewed the following results: Assessment and Plan Type 2 diabetes mellitus with hemoglobin A1c goal of less than 7.0% (HCC) Await current treatment and plan until lab result comes back Discussed importance of eating on time - Dexcom G7 Sensor; CHANGE EVERY 10 DAYS. USE TO CHECK BLOOD SUGARS CONTINUOUSLY - TSH; Future - LDL CHOLESTEROL (DIRECT MEASURE); Future - metFORMIN HCl ER 500 MG Oral Tablet Extended Release 24 Hour (Glucophage XR); Take 2 Tablets by mouth in the morning and 2 Tablets before bedtime. HTN, goal below 140/90 Stable Continue current treatment as directed - COMPREHENSIVE METABOLIC PANEL; Future Type 2 diabetes mellitus with hypoglycemia without coma (HCC) - DIABETES FOOT EXAM - TELEMEDICINE DIABETIC EYE Traumatic amputation of leg below knee, right, sequela (HCC) - DURABLE MEDICAL EQUIPMENT - DURABLE MEDICAL EQUIPMENT Recurrent acute pancreatitis Phantom limb syndrome with pain (HCC) - DURABLE MEDICAL EQUIPMENT Other chronic pancreatitis (HCC) Mild episode of recurrent major depressive disorder (HCC) History of acute alcohol intoxication Need for prophylactic vaccination and inoculation against influenza - INFLUENZA VAC, TRIVALENT, (IIV3), PF, 0.5 ML (FLUZONE) Hyperlipidemia with target LDL less than 100 Stable Continue current treatment as directed BMI 27.0-27.9,adult Alcohol abuse Pt advised to minimize and stop alcohol consumption. prison alcohol abuse causing different end organ damage discussed Type 2 diabetes mellitus with hypoglycemia without coma, unspecified whether residential insulin use ([facility]) - ALBUMIN / CREATININE RATIO, URINE; Future Hypokalemia - HEMOGLOBIN A1C; Future - Potassium Chloride 20 MEQ Oral Packet; Take 20 mEq by mouth in the morning. Gastro-esophageal reflux disease without esophagitis Stable Continue current treatment as directed Cocaine abuse, in remission (HCC) Major depressive disorder with single episode, remission status unspecified Start cynbalta Encounter for long-term (current) use of medications - VITAMIN B12; Future MAYELA (generalized anxiety disorder) - DULoxetine HCl 20 MG Oral Capsule Delayed Release Particles (duloxetine); Take 1 Capsule by mouth in the morning. Do not cut, crush or chew. Wrap-Up Time: I spent a total of 40-54 minutes (exact time 45 mins) on the date of service in preparation, delivery, and documentation of the care provided to Umair Harrison excluding any time spent in the performance of separately billed services. * Susan Clements CMA - 06/07/2024 1:48 PM EST Images from the original note were not included. PRE - ADMINISTRATION DOCUMENTATION Are you experiencing any cold symptoms or fever? No Have you had Guillain-Axson Syndrome (an illness that causes paralysis) within the last 6 weeks? No Have you had the flu shot in the past? YES Have you ever had a reaction to the flu shot? No Susan Clements CMA, 06/07/2024 1:48 PM Immunization Administration Documentation Time Out Procedure Performed: Yes Patient Identified (Ask Name/Date of ): Yes Does the patient have a fever greater than 101 degrees today? No Patient allergic to latex? No VFC Stock: No Immunization(s) verified: Yes, Immunization Name: Flu, VIS Sheet(s) given: Yes Verified Side and Site: Yes Verified Shot(s) with Parent(s)/Patient: Yes Diabetic Foot Exam: Socks and Shoes Removed for Annual Diabetic Foot Screening RIGHT FOOT: DM Foot Screening Not Done: Amputee RIGHT Dorsalis Pedis Pulse: DM Foot Screening Not Done: Amputee RIGHT Posterior Tibial Pulse: DM Foot Screening Not Done: Amputee RIGHT Monofilament:DM Foot Screening Not Done: Amputee LEFT FOOT: No Reddened, Cracking or Open Areas Noted. LEFT Dorsalis Pedis Pulse: Palpable LEFT Posterior Tibial Pulse: Palpable LEFT Monofilament:Patient reports feeling monofilament pressure on plantar surface of foot Do you need diabetic shoes: No DM Foot Exam completed today. Provider aware. Susan Clements CMA The importance of having a yearly diabetic eye exam has been discussed with patient. Order and/or Referral placed along with patient instructions. Provider made aware. Susan Clements CMA Diabetic Retinopathy: Evaluating Your Eyes Diabetic retinopathy is a condition that happens when diabetes damages blood vessels in the rear ofthe eye. It can lead to vision loss. To help catch it early, have a complete dilated eye exam at least once a year. During the exam, the eye healthcare provider will review your medical history, examine your eyes, and check your vision. Women who are and have pre-existing type 1 or type 2 diabetes have an increased risk of retinopathy. Women with diabetes should have an eye exam before or in the first trimester. They should continue to be monitored every trimester and for 1 year after delivery, depending on the severity of the retinopathy. The retina is the light-sensitive part of the eye that allows you to see. High blood sugar can damage blood vessels of the retina and cause them to leak or bleed. This damage can lead to abnormal blood vessel growth. This condition is called diabetic retinopathy. You may not have symptoms early in the disease. Later, there may be floaters, blurred vision, or poor night vision. There may also be partial or complete vision loss. Early cases of diabetic retinopathy can be treated by carefully controlling blood sugar, blood pressure, and cholesterol. Surgery or laser treatments may help restore lost vision. Laser surgery can shrink abnormal blood vessels or close ones that are leaking. Medicines injected in the eye can help decrease swelling of the retina. Home care Take all medicines, including insulin or oral diabetic medicine, exactly as prescribed. Follow the diet advised by your healthcare provider. If you have high cholesterol, follow a low-fat, low-cholesterol diet. Monitor blood sugars as advised. Try to achieve your ideal weight. If you smoke, quit smoking. Tobacco use worsens the effect of diabetes on your blood vessels. If you have high blood pressure, consider buying an automatic blood pressure machine. These are available at most pharmacies. Use this to monitor your blood pressure. Report your blood pressure readings to your healthcare provider. Exercise regularly. Follow-up care Follow up with your healthcare provider, or as advised. You must have a complete eye exam at least once a year, more often if needed. Untreated diabetic retinopathy can lead to complete loss of vision. Occupational therapists can help you adapt to any vision loss you have, including learning techniques to safely administer insulin. When to seek medical advice Call your healthcare provider right away if any of these occur. Increasing blurriness or any sudden changes in your vision Sudden flashes of light inside your eye New floaters (small dots or strings that seem to be moving across your field of vision) Eye pain, redness, or discharge from your eyelid New dark spots appearing in your field of vision Halos around lights Dimness of vision Partial or complete loss of vision Women with diabetes should have a complete eye exam before becoming , or as soon as possible when they find out they are . Retinopathy sometimes worsens during . Your eye exam Your eye healthcare provider uses an eye chart and other tools to check your vision. Then he or sheexamines your eyes for signs of disease. You are given eye drops to widen (dilate) your pupils. Youmay have one or more of the following tests: Tonometry to measure fluid pressure inside the eye. Slit lamp exam to allow the healthcare provider to view the structures of your eye. Ultrasound to create an image of the eye using sound waves. Ultrasound may be used if blood is found in the clear gel that fills the eye (vitreous). Ocular coherence tomography (OCT) to create an image of the retina using light waves. This shows ifthere is fluid leaking into certain parts of the eye. It can also measure the thickness of the retina. Fluorescein angiography This test may be done to check the health of the inside lining of the eye (retina). It also checks the tiny blood vessels (capillaries) that carry blood to the retina. During the test: Photographs are taken of the retina. A dye is then injected into the bloodstream through the arm or hand. The dye travels to the capillaries in the eye. More photographs are taken of the retina. The dye causes the capillaries to stand out on the photographs. You may feel brief nausea during the procedure. For a few hours after the test, your skin, eyes, and urine may appear yellow. Talk with your healthcare provider for more information about this test. Date Last Reviewed: 11/19/201519994840-7570 [employer]. [address] [place] [address], [place] [address]. All rights reserved. This information is not intended as a substitute for professional medical care. Always follow your healthcare professional's instructions. documented in this encounter Nursing Notes * Susan Clements CMA - 06/07/2024 1:41 PM EST Pt here for a prescription for a new walker and leg liners for his pros. leg documented in this encounter Miscellaneous Notes * Addendum Note - Maci Hanesn OSA - 06/27/2024 3:49 PM ESTAddended by: MACI HANSEN on: 06/27/2024 03:49 PM Modules accepted: Orders documented in this encounter Plan of Treatment Upcoming Encounters Date Type Department Care Team (Late st Contact Info) Description 12/06/2024 1:40 PM EDT Office Visit General Internal Medicine [facility] [place] [address] [place] [address] Liyah Oseguera MD [address] [place] [address] Scheduled Orders Name Type Priority Associated Diagnoses Orde r Schedule ALBUMIN / CREATININE RATIO, URINE Lab Routine Type 2 diabetes mellitus with hypoglycemia without coma, unspecified whether residential insulin use (HCC) Expected: 06/07/2024 (Approximate), Expires: 06/07/2025 Health Maintenance Due Date Last Done Comments [...] filedocumented as of this encounter Results * LDL CHOLESTEROL (DIRECT MEASURE) (06/07/2024 2:42 PM EST) LDL Cholesterol (Direct Measure) 109 <=129 mg/dL 06/08/2024 12:37 AM EST LAB[facility]ATORY [facility] Comment: LDL Cholesterol Reference Ranges (mg/dL): <70 Target level for high risk ASCVD patient <100 Optimal for general population 100-129 Near optimal for general population 130-159 Borderline high 160-189 High >=190 Very high Blood Venous blood specimen / Unknown 06/07/2024 2:42 PM EST 06/07/2024 2:47 PM EST Liyah Oseguera MD LAB BLOOD ORDERABLES Final Res ult Performing Organization Address City/[facility] Co de Phone Number LABORATORY [facility] [address] [place] [address] * VITAMIN B12 (06/07/2024 2:42 PM EST) Vitamin B12 565 232 - 1,245 pg/mL 06/08/2024 12:21 AM EST LABORATORY [facility] Blood Venous blood specimen / Unknown 06/07/2024 2:42 PM EST 06/07/2024 2:47 PM EST Liyah Oseguera MD LAB BLOOD ORDERABLES Final Res ult LAB[facility]ATORY [facility] [address] [place] [address] * TSH (06/07/2024 2:42 PM EST) Pathologist [facility] TSH 1.99 0.27 - 4.20 uIU/mL 06/08/2024 12:21 AM EST LABORATORY [facility] Blood Venous blood specimen / Unknown 06/07/2024 2:42 PM EST 06/07/2024 2:47 PM EST Liyah Oseguera MD LAB BLOOD ORDERABLES Final Res ult Performing Organization Address [facility] de Phone Number LABORATORY [facility] [address] [place] [address] * (ABNORMAL) HEMOGLOBIN A1C (06/07/2024 2:42 PM EST) Pathologist [facility] Hemoglobin A1C 7.2(H) 4.0 - 5.6 % 06/07/2024 10:50 PM EST LABORATORY [facility] Comment:The use of HbA1c to monitor glycemic status is based on normal hemoglobin and HbA composition. This test should not be used in patients with abnormal hemoglobin that affects the half life of the red blood cell or the in vivo glycation rates. Estimated Average Glucose 160(H) <126 mg/dL 06/07/2024 10:50 PM EST LABORATORY [facility] Blood Venous blood specimen / Unknown 06/07/2024 2:42 PM EST 06/07/2024 2:47 PM EST Liyah Oseguera MD LAB BLOOD ORDERABLES Final Res ult Performing Organization Address [facility] Co de Phone Number LABORATORY [facility] [address] [place] [address] * (ABNORMAL) COMPREHENSIVE METABOLIC PANEL (06/07/2024 2:42 PM EST) [facility] BUN 9 6 - 20 mg/dL 06/07/2024 4:28 PM EST LABORATORY [place] 56-02 CREATININE 0.7 0.6 - 1.2 mg/dL 06/07/2024 4:28 PM EST LAB[facility]ATORY [place] 56-02 EGFR >90 >=60 mL/min 06/07/2024 4:28 PM [facility] 56 Comment:eGFR is calculated b ased on the CKD-EPI 2020 equation. SODIUM 134(L) 135 - 146 mmol/L 06/07/2024 4:28 PM [facility] 56 POTASSIUM 4.4 3.5 - 5.1 mmol/L 06/07/2024 4:28 PM [facility] 56 CHLORIDE 99 98 - 107 mmol/L 06/07/2024 4:[address] CO2 21(L) 22 - 32 mmol/L 06/07/2024 4:[address] ANION GAP 14 7 - 15 mmol/L 06/07/2024 4:[address] GLUCOSE 220(H) 70 - 120 mg/dL 06/07/2024 4:[address] Albumin 4.6 3.8 - 5.0 g/dL 06/07/2024 4:[address] AST 13 10 - 50 U/L 06/07/2024 4:[address] Alkaline Phosphatase 100 35 - 130 U/L 06/07/2024 4:[address] Bilirubin, Total 0.7 <=1.2 mg/dL 06/07/2024 4:[address] CALCIUM 10.0 8.4 - 10.2 mg/dL 06/07/2024 4:28 PM [facility] 56 Protein 7.7 6.0 - 8.3 g/dL 06/07/2024 4:[address] ALT 14 10 - 50 U/L 06/07/2024 4:28 PM [facility] 56 Blood Venous blood specimen / Unknown Venipuncture / Unknown 06/07/2024 2:42 PM EST 06/07/2024 2:47 PM EST us Liyah Oseguera MD LAB BLOOD ORDERABLES Final Res ult [address] [place] [address] documented in this encounter Visit Diagnoses Diagnosis HTN, goal [...] goal of less than 7.0% (HCC)- Primary HTN, goal below 140/90 Unspecified essential hypertension Type 2 diabetes mellitus with hypoglycemia without coma, unspecified whether residential insulin use (HCC) Traumatic amputation of leg below knee, right, sequela (HCC) Recurrent acute pancreatitis Acute pancreatitis Phantom limb syndrome with pain (HCC) Phantom limb (syndrome) Other chronic pancreatitis (HCC) Mild episode of recurrent major depressive disorder (HCC) History of acute alcohol intoxication Nondependent alcohol abuse, in remission Need for prophylactic vaccination and inoculation against influenza Hyperlipidemia with target LDL less than 100 Other and unspecified hyperlipidemia BMI 27.0-27.9,adult Body Mass Index 27.0-27.9, adult Alcohol abuse Alcohol abuse, unspecified Hypokalemia Hypopotassemia Gastro-esophageal reflux disease without esophagitis Esophageal reflux Cocaine abuse, in remission (HCC) Cocaine abuse, in remission Major depressive disorder with single episode, remission status unspecified Encounter for long-term (current) use of medications Encounter for long-term (current) use of other medications MAYELA (generalized anxiety disorder) Generalized anxiety disorder documented in this encounter Care Teams Hog Dropper Relationship Specialty Start Date End Date Liyah Oseguera MD [address] [place] [address], [place] [address] PCP - General Internal Medicine 03/25/17 documented as of this encounter
--- OUTSIDE RECORDS SUMMARY | 2024-09-08 08:31 | External Medical Summary | Summary of Care ---
Author Name Unknown Organization [facility] Address [address] [place] [address] Phone [phone] Care Team Providers Care Theater Technician Name Role Phone Liyah Oseguera MD Primary Care Provider [phone] Reason for Visit * Reason Onset Date Comments Follow Up Medication Administration 06/07/2024 Flu an d/or Pneumo Inj Encounter Details Date Type Department Care Team (Late st Contact Info) Description 06/07/2024 1:40 PM EST Office Visit General Internal Medicine [facility] [address] [facility] [place] [address] Liyah Oseguera MD [address] [place] [address] Type 2 diabetes mellitus with hemoglobin A1c goal of less than 7.0% ([facility])*; HTN, goal below 140/90; Type 2 diabetes mellitus with hypoglycemia without coma, with long-term current use of insulin (HCC); Traumatic amputation of leg below knee, right, sequela ([facility]); Recurrent acute pancreatitis; Phantom limb syndrome with pain ([facility]); Other chronic pancreatitis ([facility]); Mild episode of recurrent major depressive disorder ([facility]); History of acute alcohol intoxication; Need for prophylactic vaccination and inoculation against influenza; Hyperlipidemia with target LDL less than 100; BMI 27.0-27.9,adult; Alcohol abuse; Type 2 diabetes mellitus with hypoglycemia without coma, unspecified whether director long term care insulin use (HCC); Hypokalemia; Gastro-esophageal reflux disease without esophagitis; Cocaine abuse, in remission (HCC); Major depressive disorder with single episode, remission status unspecified; Encounter for long-term (current) use of medications; MAYELA (generalized anxiety disorder) Allergies No known active allergiesdocumented as of this encounter (statuses as of 06/17/2024) Medications polyethylene glycol 3350 (MIRALAX) 255 gram [...] Strip 3 03/10/20 23 Active Dexcom G7 Production Lapping Machine Operator DeviceIndication s:Type 2 diabetes mellitus with hemoglobin [...] as of this encounter (statuses as of 06/17/2024) Active Problems Problem Noted Date Diagnosed Date [...] as of this encounter (statuses as of 06/17/2024) Resolved Problems Problem Noted Date Diagnosed Date Resolved Date Acute respiratory failure with hypoxia 03/03/2023 03/03/2023 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 03/03/2023 04/20/2023 Assessment & Plan (03/03/2023 11:47 AM EDT): Managed via [facility] for wound care Acquired absence of right leg below knee 02/24/2023 03/03/2023 Hypokalemia 05/10/2022 04/20/2023 Alcohol dependence with with drawal, unspecified 03/15/2018 03/15/2018 Body mass index (BMI) of 40. 0 to 44.9 in adult 11/08/2017 12/20/2017 Overview: Per Obesity protocol #1 documented as of this encounter (statuses as of 06/17/2024) Immunizations Name Administration Dates Next Due Pneumococcal Conjugate Vacci ne, 20-valent ([id number]) 02/24/2023 Pneumococcal Polysaccharide PPV23 (Pneumovax) 05/04/2015 Seasonal [...] calluses yourself. Talk to your doctor or body cleaner (a doctor who specializes in foot care) [...] the area doesnt appear to be healing. [id number] [employer], [address] [place] [address], [place] [address]. All rights reserved. This information is not [...] Interimmedical history : now being followed by [facility] and taking meds regularly but not sure [...] advised to minimize and stop alcohol consumption. USP alcohol abuse causing different end organ damage discussed Type 2 diabetes mellitus with hypoglycemia without coma, unspecified whether director long term care insulin use ([facility]) - ALBUMIN / CREATININE RATIO, URINE; Future [...] Release Particles (duloxetine); Take 1 Capsule by mouthin the morning. Do not cut, crush or [...] symptoms or fever? No Have you had Guillain-[place] Syndrome (an illness that causes paralysis) within [...] information about this test. Date Last Reviewed: 11/19/201519993804-0287 [employer] [place] [address], [place] [address]. All rights reserved. This information is not intended as a substitute for professional medical care. Always follow your healthcare professional's instructions. documented in this encounter Nursing Notes * Susan Clements CMA - 06/07/2024 1:41 PM EST Pt here for a prescription for a new walker and leg liners for his pros. leg documented in this encounter Plan of Treatment Upcoming Encounters Date Type Department Care Team (Late st Contact Info) Description 12/06/2024 1:40 PM EDT Office Visit General Internal Medicine [place] [facility] [address] [place], [place] [address] Liyah Oseguera MD [address] [facility] [place] [address] Scheduled Orders Name Type Priority Associated Diagnoses Orde r Schedule ALBUMIN / CREATININE RATIO, URINE Lab Routine Type 2 diabetes mellitus with hypoglycemia without coma, unspecified whether director long term care insulin use (HCC) Expected: 06/07/2024 (Approximate), Expires: [...] Exam 06/07/2025 06/07/2024, 02/24/2023 GFR 06/07/2025 06/07/2024, 0912/2022, 05/10/2022, Additional history exists DTap/Tdap Vaccines (2 [...] LAB BLOOD ORDERABLES Final Res ult [facility]ATORY [facility] [address] [place] [address] * VITAMIN B12 (06/07/2024 2:42 PM EST) Pathologist [facility] Vitamin B12 565 232 - 1,245 pg/mL 06/08/2024 12:[address] [facility] Blood Venous blood specimen / Unknown 06/07/2024 2:42 PM EST 06/07/2024 2:47 PM EST Liyah Oseguera MD LAB BLOOD ORDERABLES Final Res ult [facility] [address] [place] [address] * TSH (06/07/2024 2:42 PM EST) TSH 1.99 0.27 - 4.20 uIU/mL 06/08/2024 12:[address] [facility] Blood Venous blood specimen / Unknown 06/07/2024 2:42 PM EST 06/07/2024 2:47 PM EST Liyah Oseguera MD LAB BLOOD ORDERABLES Final Res ult Performing Organization Address [facility] Co de Phone Number [facility]ATORY [facility] [address] [place] [address] * (ABNORMAL) HEMOGLOBIN A1C (06/07/2024 2:42 PM EST) Hemoglobin A1C 7.2(H) 4.0 - 5.6 % 06/07/2024 10:[address] [facility] Comment:The use of HbA1c to monitor glycemic status is based on normal hemoglobin and HbA composition. This test should not be used in patients with abnormal hemoglobin that affects the half life of the red blood cell or the in vivo glycation rates. Estimated Average Glucose 160(H) <126 mg/dL 06/07/2024 10:[address] [facility] Blood Venous blood specimen / Unknown 06/07/2024 2:42 PM EST 06/07/2024 2:47 PM EST Liyah Oseguera MD LAB BLOOD ORDERABLES Final Res ult Performing Organization Address [facility] de Phone Number LABORATORY [address] [address] * (ABNORMAL) COMPREHENSIVE METABOLIC PANEL (06/07/2024 2:42 PM EST) BUN 9 6 - 20 mg/dL 06/07/2024 4:28 PM EST [facility] 56-02 CREATININE 0.7 0.6 - 1.2 mg/dL 06/07/2024 4:28 PM EST [facility] 56-02 EGFR >90 >=60 mL/min 06/07/2024 4:28 PM EST [facility] 56- Comment:eGFR is calculated b ased on the CKD-EPI 2020 equation. SODIUM 134(L) 135 - 146 mmol/L 06/07/2024 4:28 PM EST [facility] 56-02 POTASSIUM 4.4 3.5 - 5.1 mmol/L 06/07/2024 4:28 PM [facility] 56 CHLORIDE 99 98 - 107 mmol/L 06/07/2024 4:28 PM EST [facility] 56 CO2 21(L) 22 - 32 mmol/L 06/07/2024 4:28 PM EST [address] ANION GAP 14 7 - 15 mmol/L 06/07/2024 4:28 PM EST [facility] 56 GLUCOSE 220(H) 70 - 120 mg/dL 06/07/2024 4:28 PM [facility] 56 Albumin 4.6 3.8 - 5.0 g/dL 06/07/2024 4:28 PM EST [address] AST 13 10 - 50 U/L 06/07/2024 4:28 PM EST [address] Alkaline Phosphatase 100 35 - 130 U/L 06/07/2024 4:[address] Bilirubin, Total 0.7 <=1.2 mg/dL 06/07/2024 4:[address] CALCIUM 10.0 8.4 - 10.2 mg/dL 06/07/2024 4:28 PM [facility] 56 Protein 7.7 6.0 - 8.3 g/dL 06/07/2024 4:[address] ALT 14 10 - 50 U/L 06/07/2024 4:28 PM [facility] 56 Blood Venous blood specimen / Unknown Venipuncture / Unknown 06/07/2024 2:42 PM EST 06/07/2024 2:47 PM EST us Liyah Oseguera MD LAB BLOOD ORDERABLES Final Res ult [facility] [address] [place] [address] documented in this encounter Visit Diagnoses Diagnosis [...] disorder documented in this encounter Care Teams Theater Technician Relationship Specialty Start Date End Date Liyah Oseguera MD [address] [place] [address], [place] [address] PCP - General Internal Medicine 03/25/17 documented as of this encounter
--- OUTSIDE RECORDS SUMMARY | 2024-09-08 08:31 | External Medical Summary | Summary of Care ---
Author Name Unknown Organization [facility] Address [address] [place] [address] Phone [phone] Care Team Providers Care Technical Maintenance Technician Name Role Phone Liyah Oseguera MD Primary Care Provider [phone] Reason for Visit * Reason Onset Date Comments Follow Up Medication Administration 06/07/2024 Flu an d/or Pneumo Inj Encounter Details Date Type Department Care Team (Late st Contact Info) Description 06/07/2024 1:40 PM EST Office Visit General Internal Medicine [facility] [address] [place] [address] Liyah Oseguera MD [address] [place] [address] Type 2 diabetes mellitus with hemoglobin A1c goal of less than 7.0% ([facility])*; HTN, goal below 140/90; Type 2 diabetes mellitus with hypoglycemia without coma, with long-term current use of insulin (HCC); Traumatic amputation of leg below knee, right, sequela ([facility]); Recurrent acute pancreatitis; Phantom limb syndrome with pain ([facility]); Other chronic pancreatitis ([facility]); Mild episode of recurrent major depressive disorder ([facility]); History of acute alcohol intoxication; Need for [...] as of this encounter (statuses as of 06/28/2024) Medications polyethylene glycol 3350 (MIRALAX) 255 gram [...] Strip 3 03/10/20 23 Active Dexcom G7 Contracts Administrator DeviceIndication s:Type 2 diabetes mellitus with hemoglobin [...] as of this encounter (statuses as of 06/28/2024) Active Problems Problem Noted Date Diagnosed Date [...] as of this encounter (statuses as of 06/28/2024) Resolved Problems Problem Noted Date Diagnosed Date Resolved Date Acute respiratory failure with hypoxia 03/03/2023 03/03/2023 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 03/03/2023 04/20/2023 Assessment & Plan (03/03/2023 11:47 AM EDT): Managed via [facility] for wound care Acquired absence of right leg below knee 02/24/2023 03/03/2023 Hypokalemia 05/10/2022 04/20/2023 Alcohol dependence with with drawal, unspecified 03/15/2018 03/15/2018 Body mass index (BMI) of 40. 0 to 44.9 in adult 11/08/2017 12/20/2017 Overview: Per Obesity protocol #1 documented as of this encounter (statuses as of 06/28/2024) Immunizations Name Administration Dates Next Due Pneumococcal Conjugate Vacci ne, 20-valent ([id number]) 02/24/2023 Pneumococcal Polysaccharide PPV23 (Pneumovax) 05/04/2015 Seasonal [...] calluses yourself. Talk to your doctor or laborer shellfish processing (a doctor who specializes in foot care) [...] the area doesnt appear to be healing. [id number] [employer], [address] [place] [address], [place] [address]. All rights reserved. This information is not [...] Interimmedical history : now being followed by [facility] and taking meds regularly but not [...] advised to minimize and stop alcohol consumption. long-term alcohol abuse causing different end organ damage discussed Type 2 diabetes mellitus with hypoglycemia without coma, unspecified whether chcf insulin use ([facility]) - ALBUMIN / CREATININE RATIO, URINE; Future [...] in the performance of separately billed services. Addendum: Pt stated after office visit that it's hard to get around most time with walker and prefers to havewheelchair . Script give to patient as seems appropriate 06/28/2024 7:30 PM * Susan Clements CMA - 06/07/2024 1:48 PM EST Images from the original note were not included. PRE - ADMINISTRATION DOCUMENTATION Are you experiencing any cold symptoms or fever? No Have you had Guillain-[place] Syndrome (an illness that causes paralysis) within [...] information about this test. Date Last Reviewed: 11/19/201519998845-9529 [employer]. [address] [place] [address], [place] [address]. All rights reserved. This information is not intended as a substitute for professional medical care. Always follow your healthcare professional's instructions. documented in this encounter Nursing Notes * Susan Clements CMA - 06/07/2024 1:41 PM EST Pt here for a prescription for a new walker and leg liners for his pros. leg documented in this encounter Miscellaneous Notes * Addendum Note - Maci Hansen OSA - 06/27/2024 3:49 PM ESTAddended by: MACI HANSEN on: 06/27/2024 03:49 PM Modules accepted: Orders documented in this encounter Plan of Treatment Upcoming Encounters Date Type Department Care Team (Late st Contact Info) Description 12/06/2024 1:40 PM EDT Office Visit General Internal Medicine [facility] [address] [place] [address] Liyah Oseguera MD [address] [place] [address] Scheduled Orders Name Type Priority Associated Diagnoses [...] <=129 mg/dL 06/08/2024 12:37 AM EST LAB[facility] Comment: LDL Cholesterol Reference Ranges (mg/dL): <70 Target level for high risk ASCVD patient <100 Optimal for general population 100-129 Near optimal for general population 130-159 Borderline high 160-189 High >=190 Very high Blood Venous blood specimen / Unknown 06/07/2024 2:42 PM EST 06/07/2024 2:47 PM EST us Liyah Oseguera MD LAB BLOOD ORDERABLES Final Res ult [facility] [address] [place] [address] * VITAMIN B12 (06/07/2024 2:42 PM EST) Vitamin B12 565 232 - 1,245 pg/mL 06/08/2024 12:21 AM EST [facility] Blood Venous blood specimen / Unknown 06/07/2024 2:42 PM EST 06/07/2024 2:47 PM EST Liyah Oseguera MD LAB BLOOD ORDERABLES Final Res ult Performing Organization Address City/[facility] Co de Phone Number LABORATORY [facility] [address] [place] [address] * TSH (06/07/2024 2:42 PM EST) Pathologist [facility] TSH 1.99 0.27 - 4.20 uIU/mL 06/08/2024 12:21 AM EST [facility]ORY [facility] Blood Venous blood specimen / Unknown 06/07/2024 2:42 PM EST 06/07/2024 2:47 PM EST Liyah Oseguera MD LAB BLOOD ORDERABLES Final Res ult Performing Organization Address [facility] Phone Number LABORATORY [facility] [address] [place] [address] * (ABNORMAL) HEMOGLOBIN A1C (06/07/2024 2:42 PM EST) [facility] Hemoglobin A1C 7.2(H) 4.0 - 5.6 % 06/07/2024 10:50 PM EST LABORATORY [facility] Comment:The use of HbA1c to monitor glycemic status is based on normal hemoglobin and HbA composition. This test should not be used in patients with abnormal hemoglobin that affects the half life of the red blood cell or the in vivo glycation rates. Estimated Average Glucose 160(H) <126 mg/dL 06/07/2024 10:50 PM EST LAB[facility]ORY [facility] Blood Venous blood specimen / Unknown 06/07/2024 2:42 PM EST 06/07/2024 2:47 PM EST Liyah Oseguera MD LAB BLOOD ORDERABLES Final Res ult Performing Organization Address [facility] Co de Phone Number LABORATORY [facility] [address] [place] [address] * (ABNORMAL) COMPREHENSIVE METABOLIC PANEL (06/07/2024 2:42 PM EST) Pathologist [facility] BUN 9 6 - 20 mg/dL 06/07/2024 4:28 PM [facility] 56 CREATININE 0.7 0.6 - 1.2 mg/dL 06/07/2024 4:28 PM [facility] 56 EGFR >90 >=60 mL/min 06/07/2024 4:28 PM [facility] 56 Comment:eGFR is calculated b ased on the CKD-EPI 2020 equation. SODIUM 134(L) 135 - 146 mmol/L 06/07/2024 4:28 PM [facility] 56 POTASSIUM 4.4 3.5 - 5.1 mmol/L 06/07/2024 4:28 PM [facility] 56 CHLORIDE 99 98 - 107 mmol/L 06/07/2024 4:28 PM [facility] 56 CO2 21(L) 22 - 32 mmol/L 06/07/2024 4:28 PM [facility] 56 ANION GAP 14 7 - 15 mmol/L 06/07/2024 4:[address] GLUCOSE 220(H) 70 - 120 mg/dL 06/07/2024 4:28 PM [facility] 56 Albumin 4.6 3.8 - 5.0 g/dL 06/07/2024 4:28 PM [facility] 56 AST 13 10 - 50 U/L 06/07/2024 4:28 PM [facility] 56 Alkaline Phosphatase 100 35 - 130 U/L 06/07/2024 4:28 PM [facility] 56 Bilirubin, Total 0.7 <=1.2 mg/dL 06/07/2024 4:28 PM [facility] 56 CALCIUM 10.0 8.4 - 10.2 mg/dL 06/07/2024 4:28 PM [facility] 56 Protein 7.7 6.0 - 8.3 g/dL 06/07/2024 4:28 PM [facility] 56 ALT 14 10 - 50 U/L 06/07/2024 4:28 PM [facility] 56 Blood Venous blood specimen / Unknown Venipuncture / Unknown 06/07/2024 2:42 PM EST 06/07/2024 2:47 PM EST Liyah Oseguera MD LAB BLOOD ORDERABLES Final Res ult [facility] 56-[address] [place] [address] documented in this encounter Visit Diagnoses Diagnosis [...] mellitus with hypoglycemia without coma, unspecified whether chcf insulin use (HCC) Traumatic amputation of leg [...] disorder documented in this encounter Care Teams Technical Maintenance Technician Relationship Specialty Start Date End Date Liyah Oseguera MD [address] [facility] [place] [address] PCP - General Internal Medicine 03/25/17 documented as of this encounter
--- OUTSIDE RECORDS SUMMARY | 2024-09-08 08:31 | External Medical Summary | Summary of Care ---
Author Name Unknown Organization [facility] Address [address] [place] [address] Phone [phone] Care Team Providers Care Ways Operator Name Role Phone Liyah Oseguera MD Primary Care Provider [phone] Reason for Visit * Reason Onset Date Comments [facility]: Maintenance 07/30/2024 Encounter Details Date Type Department Care Team (Late st Contact Info) Description 07/30/2024 Telephone [facility], [facility] [address] [facility] [place] [address] Glenn Paredes, ASIF [address] [facility] [place] [address] [facility]: Maintenance Allergies No known active allergiesdocumented as of this encounter (statuses as of 07/30/2024) Medications polyethylene glycol 3350 (MIRALAX) 255 gram [...] 300 Strip 3 3 Active Dexcom G7 Finance Business Partner DeviceIndication s:Type 2 diabetes mellitus with hemoglobin [...] as of this encounter (statuses as of 07/30/2024) Active Problems Problem Noted Date Diagnosed Date [...] as of this encounter (statuses as of 07/30/2024) Resolved Problems Problem Noted Date Diagnosed Date Resolved Date Acute respiratory failure with hypoxia 03/03/2023 03/03/2023 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 03/03/2023 04/20/2023 Assessment & Plan (03/03/2023 11:47 AM EDT): Managed via [facility] for wound care Acquired absence of right leg below knee 02/24/2023 03/03/2023 Hypokalemia 05/10/2022 04/20/2023 Alcohol dependence with with drawal, unspecified 03/15/2018 03/15/2018 Body mass index (BMI) of 40. 0 to 44.9 in adult 11/08/2017 12/20/2017 Overview: Per Obesity protocol #1 documented as of this encounter (statuses as of 07/30/2024) Immunizations Name Administration Dates Next Due Pneumococcal Conjugate Vacci ne, 20-valent ([id number]) 02/24/2023 Pneumococcal Polysaccharide PPV23 (Pneumovax) 05/04/2015 Seasonal [...] No 01/12/2024 Does the household have a [facility] source [facility] income? (Household - for ages [...] encounter Miscellaneous Notes * Telephone Encounter - Glenn Paredes RN - 07/30/2024 1:12 PM EST Discussed pt with [facility] Manager- pt to be graduated from [employer] Pt has no showed visits, has not returned calls- is not active participant in care Has not required any in home intervention documented in this encounter Plan of Treatment Upcoming Encounters Date Type Department Care Team (Late st Contact Info) Description 12/06/2024 1:40 PM EDT Office Visit General Internal Medicine [place] [facility] [address] [place], [place] [address] Liyah Oseguera MD [address] [facility] [place], [place] [address] Health Maintenance Due Date Last Done Comments [...] Tdap) 03/25/2027 03/25/2017 Lipid Panel 06/07/2029 06/07/2024, 12/0 12/2022, 05/10/2022, Additional history exists Lung Cancer [...] filedocumented as of this encounter Care Teams Ways Operator Relationship Specialty Start Date End Date Liyah Oseguera MD [address] [place] [address] PCP - General Internal Medicine 03/25/17 documented as of this encounter
--- OUTSIDE RECORDS SUMMARY | 2024-09-08 08:31 | External Medical Summary | Summary of Care ---
Author Name Unknown Organization [facility] Address [address] [place] [address] Phone [phone] Care Team Providers Care Final Tester Name Role Phone Liyah Oseguera MD Primary Care Provider [phone] Encounter Details Date Type Department Care Team (Late st Contact Info) Description 07/09/2024 Population Health External Data Unspecified Department Allergies No known active allergiesdocumented as of this encounter (statuses as of 07/09/2024) Medications polyethylene glycol 3350 (MIRALAX) 255 gram [...] 300 Strip 3 3 Active Dexcom G7 Detailer Furniture DeviceIndication s:Type 2 diabetes mellitus with hemoglobin [...] as of this encounter (statuses as of 07/09/2024) Active Problems Problem Noted Date Diagnosed Date [...] AM EDT): Insulin dependent Recent referral to [facility] for management Hemoglobin AIC Results: [...] as of this encounter (statuses as of 07/09/2024) Resolved Problems Problem Noted Date Diagnosed Date Resolved Date Acute respiratory failure with hypoxia 03/03/2023 03/03/2023 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 03/03/2023 04/20/2023 Assessment & Plan (03/03/2023 11:47 AM EDT): Managed via [facility] for wound care Acquired absence of right leg below knee 02/24/2023 03/03/2023 Hypokalemia 05/10/2022 04/20/2023 Alcohol dependence with with drawal, unspecified 03/15/2018 03/15/2018 Body mass index (BMI) of 40. 0 to 44.9 in adult 11/08/2017 12/20/2017 Overview: Per Obesity protocol #1 documented as of this encounter (statuses as of 07/09/2024) Immunizations Name Administration Dates Next Due Pneumococcal Conjugate Vacci ne, 20-valent ([id number]) 02/24/2023 Pneumococcal Polysaccharide PPV23 (Pneumovax) 05/04/2015 Seasonal [...] State [place] [address] [place] [address] Liyah Oseguera MD [address] [place] [address] Health Maintenance Due Date Last Done Comments [...] filedocumented as of this encounter Care Teams Final Tester Relationship Specialty Start Date End Date Liyah Oseguera MD [address] [place] [address] PCP - General Internal Medicine 03/25/17 documented as of this encounter
--- OUTSIDE RECORDS SUMMARY | 2024-09-08 08:31 | External Medical Summary | Summary of Care ---
Author Name Unknown Organization [facility] Address [address] [place] [address] Phone [phone] Care Team Providers Care Warehouse Traffic Supervisor Name Role Phone Gracie Oseguera MD Primary Care Provider [phone] Reason for Visit * Reason Onset Date Comments Medication Refill 08/24/2024 Encounter Details Date Type Department Care Team (Late st Contact Info) Description 08/24/2024 Refill General Internal Medicine [facility] 200 [facility] [place] [id number] Gracie Oseguera MD 200 [place] [address] Type 2 diabetes mellitus with hemoglobin A1c goal of less than 7.0% ([facility]) Allergies No known active allergiesdocumented as of this encounter (statuses as of 08/24/2024) Medications polyethylene glycol 3350 (MIRALAX) 255 gram [...] Strip 3 03/10/20 23 Active Dexcom G7 Programmer Analyst Health It DeviceIndication s:Type 2 diabetes mellitus with hemoglobin [...] AND DINNER 180 Tablet 03/29/20 24 Active metFORMIN HCl ER 500 MG [...] morning. 15 mL 1 07/31/19 25 Active Dexcom G7 SensorIndication s:Type 2 diabetes mellitus with hemoglobin A1c goal of less than 7.0% (HCC) CHANGE EVERY 10 DAYS. USE TO CHECK BLOOD SUGARS CONTINUOUSLY 9 Each 2 08/25/19 25 Active Dexcom G7 SensorIndication s:Type 2 diabetes mellitus with hemoglobin A1c goal of less than 7.0% (HCC) CHANGE EVERY 10 DAYS. 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 0 to 44.9 in adult 11/08/2017 12/20/2017 Overview: Per Obesity protocol #1 documented as of this encounter (statuses as of 08/24/2024) Immunizations Name Administration Dates Next Due Pneumococcal Conjugate Vacci ne, 20-valent ([id number]) 02/24/2023 Pneumococcal Polysaccharide PPV23 (Pneumovax) 05/04/2015 Seasonal [...] encounter Miscellaneous Notes * Telephone Encounter - Carey Hall RPh - 08/24/2024 3:27 PM ESTSigned Prescriptions: Disp Refills Dexcom G7 Sensor 9 Each 2 Sig: CHANGE EVERY 10 DAYS. USE TO CHECK BLOOD SUGARS CONTINUOUSLY Authorizing Provider: GRCAIE OSEGUERA Ordering User: CAREY HALL * Telephone Encounter - Carmelo Mendez, avionics test technician - 08/24/2024 2:21 PM EST Did you pend patient's preferred pharmacy and medication before forwarding?yes Pharmacy: [id number] Pending Prescriptions: Disp Refills Dexcom G7 Sensor 9 Each 0 Sig: CHANGE EVERY 10 DAYS. USE TO CHECK BLOOD SUGARS CONTINUOUSLY Last Visit: 06/07/2024 (in office), Visit date not found (telemedicine) Next Visit: 12/06/2024 If no future appointments scheduled, and last appointment is greater than a year ago, please schedule patient for a follow-up appointment Last date the medication was ordered: 06/07/2024 Is this request for a controlled substance?No [...] PM EDT Office Visit General Internal Medicine [facility] 200 [facility] [place] [address] Gracie Oseguera MD 200 [place] [address] Health Maintenance Due Date Last Done Comments Diabetic Eye Exam 1980 Cologuard 2007 Colonoscopy 2007 Colorectal Cancer Screening 2007 Fecal Occult Blood Test 2007 Sigmoidoscopy 2007 Zoster Vaccines (1 of 2) 2012 DISCUSS TOBACCO CESSATION (REFER TO SMARTSET #3291) 03/15/2019 03/15/2018 Hepatitis B Vaccine (1 of 3 - Risk 3-dose series) 2022 Albumin/Creatinine Ratio 05/10/2023 05/10/2022 COVID-19 Vaccine ( - season) 2024 HbA1c 12/06/2024 06/07/2024, 04/20, 02/24/2023, Additional history exists Depression Monitoring 06/07/2025 06/07/2024 Diabetic Foot Exam 06/07/2025 06/07/2024, 02/24/2023 GFR 06/07/2025 06/07/2024, 09/12/2022, 05/10/2022, Additional history exists DTap/Tdap Vaccines (2 [...] on patient's age to complete this topic Meningitis B Vaccine (Bexsero/Trumemba) Aged Out No longer eligible based on [...] (HCC) documented in this encounter Care Teams Warehouse Traffic Supervisor Relationship Specialty Start Date End Date Gracie Oseguera MD 200 [facility] [place] [address] PCP - General Internal Medicine 03/25/17 documented as of this encounter
--- OUTSIDE RECORDS SUMMARY | 2024-09-08 08:32 | External Medical Summary | Summary of Care ---
Author Name Unknown Organization [facility] Address [address] [place] [address] Phone [phone] Care Team Providers Care Inspector Brake Lining Name Role Phone Gracie Oseguera MD Primary Care Provider [phone] Reason for Visit * Reason Onset Date Comments No Show 06/02/2024 [facility] No Show Auto mation Encounter Details Date Type Department Care Team (Late st Contact Info) Description 06/02/2024 Telephone General Internal Medicine [facility] 200 [place] [address] rGacie Oseguera MD 200 [place] [address] No Show ([place] No Show Automation) Allergies No known active allergiesdocumented as of this encounter (statuses as of 06/02/2024) Medications polyethylene glycol 3350 (MIRALAX) 255 gram powderIndication s:Other constipation Take 17 g by mouth as needed for Constipation. Dissolve one heaping tablespoon in 8 ounces of water or juice. 1 Bottle 2 8 Active Additional Information Patient not taking.Reported on 02/07/2024 Daily Elise Oral Tablet Take 1 Tab [...] and 2 units with snack, Reported on 01/16/2024 Novofine Pen Needle 32G X 6 MM (NOVOFINE 32G PEN NEEDLE) Use one needle per injection with flexpen 100 Each 3 3 Active OneTouch Verio In Vitro Strip (Glucose Blood)Indication s:Type 2 diabetes mellitus with hemoglobin A1c goal of less than 7.0% (HCC) Use to check blood sugars 3 times daily. E 11.9 300 Strip 3 3 Active Dexcom G7 Mail List Librarian DeviceIndication s:Type 2 diabetes mellitus with hemoglobin A1c goal of less than 7.0% ([facility]) USE TO CHECK BLOOD SUGARS CONTINOUSLY 1 Each 3 Active Potassium Chloride 20 MEQ Oral PacketIndication [...] differently: 10 Units Subcutaneous Daily(AM), Reported on 01/16/2024 Folic Acid 1 MG Oral TabletIndication s:Alcohol [...] BLOOD SUGARS CONTINUOUSLY 9 Each 4 Active documented as of this encounter (statuses as of 06/02/2024) Active Problems Problem Noted Date Diagnosed Date Other chronic pancreatitis 04/20/2023 Type 2 diabetes mellitus wit h hemoglobin A1c goal of less than 7.0% 02/24/2023 Assessment & Plan (03/03/2023 10:45 AM EDT): Insulin dependent Recent referral to [facility] for management Hemoglobin AIC Results: [...] as of this encounter (statuses as of 06/02/2024) Resolved Problems Problem Noted Date Diagnosed Date Resolved Date Acute respiratory failure with hypoxia 03/03/2023 03/03/2023 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 0 to 44.9 in adult 11/08/2017 12/20/2017 Overview: Per Obesity protocol #1 documented as of this encounter (statuses as of 06/02/2024) Immunizations Name Administration Dates Next Due Pneumococcal Conjugate Vacci ne, 20-valent ([id number]) 02/24/2023 Pneumococcal Polysaccharide PPV23 (Pneumovax) 05/04/2015 Seasonal [...] No 01/12/2024 Does the household have a [facility] health[facility] source of income? (Household - for ages [...] encounter Miscellaneous Notes * Telephone Encounter - Livier, No Show - 06/02/2024 6:52 AM EST Dear Umair Harrison, Looks like you missed an appointment with GRACIE OSEGUERA on 05/30/2024 at 09:40 AM. If you haven't already rescheduled, you have a couple of options: Reschedule in Pricing Assistant.[facility] [email or web address].[employer]/scheduling Call us at [phone] Can't make a future appointment? Cancel and let someone else have your spot! It's easy to do via MyChart or by calling us. [facility] We hope to see you back in our office soon. Sincerely, GRACIE OSEGUERA documented in this encounter Plan of Treatment Upcoming Encounters Date Type Department Care Team (Kirk st Contact Info) Description 06/07/2024 1:40 PM EST Office Visit General Internal Medicine [address] [facility] [place] 200 [facility] [place] [place] [address] Gracie Oseguera MD 200 [facility] [place] [address] Health Maintenance Due Date Last Done Comments Diabetic Eye Exam 1980 Cologuard 2007 Colonoscopy 2007 Colorectal Cancer Screening 2007 Fecal Occult Blood Test 2007 Sigmoidoscopy 2007 Zoster Vaccines (1 of 2) 2012 DISCUSS TOBACCO CESSATION (REFER TO SMARTSET #3291) 03/15/2019 03/15/2018 Depression Monitoring 06/16/2019 06/16/2018 Albumin/Creatinine Ratio 05/10/2023 05/10/2022 HbA1c 11/02/2023 05/04/2023, 12/2022, 05/10/2022, Additional history exists COVID-19 Vaccine ( season) 2024 Influenza Vaccine (FLU shot) (#1) 2024 02/24/2023, 03/15/2018, 03/25/2017 Diabetic Foot Exam 02/25/2024 02/24/2023 GFR 02/25/2024 02/24/2023, 04/21, 11/13/2018, Additional history exists DTap/Tdap Vaccines (2 - [...] filedocumented as of this encounter Care Teams Inspector Brake Lining Relationship Specialty Start Date End Date Gracie Oseguera MD 200 [place] [address] PCP - General Internal Medicine 03/25/17 documented as of this encounter
--- OUTSIDE RECORDS SUMMARY | 2024-09-08 08:32 | External Medical Summary ---
Author Name Unknown Address Unknown Organization K09:[facility] [address] [place] [address] Laboratory Report Ordering Provider Test Date Status KAILEE BOWMAN 06/07/2024 14:42:15 Final Observation Date Value Abnormality Reference (Units ) Status BUN 06/07/2024 14:42:15 9 6-20 (mg/dL) Final Creatinine 06/07/2024 14:42:15 0.7 0.6-1.2 (mg/dL) Final Glomerular filtration rate/1.73 sq M.predicted [Volume Rate/Area] in Serum, Plasma or Blood by Creatinine-based formula (CKD-EPI) 06/07/2024 14:42:15 >90 >=60 (mL/min) Final eGFR is calculated based on the CKD-EPI 2020 equation. Sodium 06/07/2024 14:42:15 134 Below low normal 135 -146 (mmol/L) Final Potassium 06/07/2024 14:42:15 4.4 3.5-5.1 (m mol/L) Final Cl 06/07/2024 14:42:15 99 98-107 (mm ol/L) Final CO2 06/07/2024 14:42:15 21 Below low normal 22- 32 (mmol/L) Final Anion gap 06/07/2024 14:42:15 14 7-15 (mmol /L) Final Glucose 06/07/2024 14:42:15 220 Above high normal 70 -120 (mg/dL) Final Albumin 06/07/2024 14:42:15 4.6 3.8-5.0 (g /dL) Final AST (Aspartate aminotransferase) 06/07/2024 14:42:15 13 10-50 (U/L) Fin al Alk Phos 06/07/2024 14:42:15 100 35-130 (U/ L) Final Bilirubin, Total 06/07/2024 14:42:15 0.7 <=1 .2 (mg/dL) Final Calcium 06/07/2024 14:42:15 10.0 8.4-10.2 ( mg/dL) Final Protein 06/07/2024 14:42:15 7.7 6.0-8.3 (g /dL) Final ALT (Alanine aminotransferase) 06/07/2024 14:42:15 14 10-50 (U/L) Ilia reynaga Performing Location [facility] [address] [place] [address]
--- OUTSIDE RECORDS SUMMARY | 2024-09-08 08:32 | External Medical Summary ---
Author Name Unknown Address Unknown Organization K01:[facility] [facility] [address] [facility] [address] Laboratory Report Ordering Provider Test Date Status KAILEE BOWMAN 06/07/2024 14:42:00 Final Observation Date Value Abnormality Reference (Units ) Status TSH 06/07/2024 14:42:00 1.99 0.27-4.20 (uIU/mL) Final Performing Location [facility] - [address] [facility] [address]
--- OUTSIDE RECORDS SUMMARY | 2024-09-08 08:32 | External Medical Summary | Summary of Care ---
Author Name Unknown Organization [facility] Address [address] [place] [address] Phone [phone] Care Team Providers Care Carpenter Repairer Name Role Phone Liyah Oseguera MD Primary Care Provider [phone] Reason for Visit * Reason Comments Outpatient Testing Encounter Details Date Type Department Care Team (Late st Contact Info) Description 06/07/2024 2:40 PM EST Laboratory Laboratory [facility] [address] [place] [address] [facility] 200 [facility] [place] [address] HTN, goal below 140/90; Hypokalemia; Type 2 diabetes mellitus with hemoglobin A1c goal of less than 7.0% ([facility]); Encounter for long-term (current) use of medications Allergies No known active allergiesdocumented as of this encounter (statuses as of 06/07/2024) Medications polyethylene glycol 3350 (MIRALAX) 255 gram [...] 300 Strip 3 3 Active Dexcom G7 Parcel Post Weigher DeviceIndication s:Type 2 diabetes mellitus with hemoglobin [...] as of this encounter (statuses as of 06/07/2024) Active Problems Problem Noted Date Diagnosed Date [...] as of this encounter (statuses as of 06/07/2024) Resolved Problems Problem Noted Date Diagnosed Date Resolved Date Acute respiratory failure with hypoxia 03/03/2023 03/03/2023 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 0 to 44.9 in adult 11/08/2017 12/20/2017 Overview: Per Obesity protocol #1 documented as of this encounter (statuses as of 06/07/2024) Immunizations Name Administration Dates Next Due Pneumococcal Conjugate Vacci ne, 20-valent ([id number]) 02/24/2023 Pneumococcal Polysaccharide PPV23 (Pneumovax) 05/04/2015 Seasonal [...] Medicine State [place] [address] [place] [place] [address] Liyah Oseguera MD [address] [place] [address] Pending Results Name Type Priority Associated Diagnoses Date /Time COMPREHENSIVE METABOLIC PANEL Lab Routine HTN, goal below 140/90 06/07/2024 2:42 PM EST HEMOGLOBIN A1C Lab Routine Hypokalemia 06/07/2024 2:42 PM EST TSH Lab Routine Type 2 diabetes mellitus with hemoglobin A1c goal of less than 7.0% (HCC) 06/07/2024 2:42 PM EST VITAMIN B12 Lab Routine Encounter for long-term (current) use of medications 06/07/2024 2:42 PM EST LDL CHOLESTEROL (DIRECT MEASURE) Lab Routine Type 2 diabetes mellitus with hemoglobin A1c goal of less than 7.0% (HCC) 06/07/2024 2:42 PM EST Health Maintenance Due Date Last Done Comments Diabetic Eye Exam 1980 Cologuard 2007 Colonoscopy 2007 Colorectal Cancer Screening 2007 Fecal Occult Blood Test 2007 Sigmoidoscopy 2007 Zoster Vaccines (1 of 2) 2012 DISCUSS TOBACCO CESSATION (REFER TO SMARTSET #3291) 03/15/2019 03/15/2018 Albumin/Creatinine Ratio 05/10/2023 05/10/2022 HbA1c 11/02/2023 05/04/2023, 0912/2022, 05/10/2022, Additional history exists COVID-19 Vaccine ( season) 2024 GFR 02/25/2024 02/24/2023, 04/21, 11/13/2018, Additional history exists Depression Monitoring 06/07/2025 06/07/2024 Diabetic Foot Exam 06/07/2025 06/07/2024, 02/24/2023 DTap/Tdap Vaccines (2 - Td or Tdap) 03/25/2027 03/25/2017 Lipid Panel 05/26/2028 05/26/2023, 04/21, 10/10/2017 Lung Cancer Screening Completed 12/08/2017 Pneumococcal Vaccine: Pediatrics (0 to 5 Years) and At-Risk Patients (6 to 64 Years) Completed 02/24/2023, 05/04/2015 Influenza Vaccine (FLU shot) [...] Advanced care planning/counseling discussion Other specified counseling HTN, goal below 140/90 Unspecified essential hypertension Hypokalemia Hypopotassemia Type 2 diabetes mellitus with hemoglobin A1c goal of less than 7.0% (HCC) Encounter for long-term (current) use of medications Encounter for long-term (current) use of other medications documented in this encounter Care Teams Carpenter Repairer Relationship Specialty Start Date End Date Liyah Oseguera MD 200 [facility] [place] [address] PCP - General Internal Medicine 03/25/17 documented as of this encounter
--- OUTSIDE RECORDS SUMMARY | 2024-09-08 08:32 | External Medical Summary | Summary of Care ---
Author Name Unknown Organization [facility] Address [address] [place] [address] Phone [phone] Care Team Providers Care [facility] Attendant Name Role Phone Gracie Oseguera MD Primary Care Provider [phone] Reason for Visit * Reason Onset Date Comments No Show 05/31/2024 [facility] No Show Auto mation Encounter Details Date Type Department Care Team (Late st Contact Info) Description 05/31/2024 Telephone General Internal Medicine [facility] 200 [place] [address] Gracie Oseguera MD 200 [place] [address] No Show ([place] No Show Automation) Allergies No known active allergiesdocumented as of this encounter (statuses as of 05/31/2024) Medications polyethylene glycol 3350 (MIRALAX) 255 gram [...] 300 Strip 3 3 Active Dexcom G7 Cap Jewel Plate Assembler DeviceIndication s:Type 2 diabetes mellitus with hemoglobin A1c goal of less than 7.0% ([facility]) USE TO CHECK BLOOD SUGARS CONTINOUSLY [...] as of this encounter (statuses as of 05/31/2024) Active Problems Problem Noted Date Diagnosed Date Other chronic pancreatitis 04/20/2023 Type 2 diabetes mellitus wit h hemoglobin A1c goal of less than 7.0% 02/24/2023 Assessment & Plan (03/03/2023 10:45 AM EDT): Insulin dependent Recent referral to [facility] for management Hemoglobin AIC Results: [...] as of this encounter (statuses as of 05/31/2024) Resolved Problems Problem Noted Date Diagnosed Date Resolved Date Acute respiratory failure with hypoxia 03/03/2023 03/03/2023 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 0 to 44.9 in adult 11/08/2017 12/20/2017 Overview: Per Obesity protocol #1 documented as of this encounter (statuses as of 05/31/2024) Immunizations Name Administration Dates Next Due Pneumococcal Conjugate Vacci ne, 20-valent ([id number]) 02/24/2023 Pneumococcal Polysaccharide PPV23 (Pneumovax) 05/04/2015 Seasonal [...] No 01/12/2024 Does the household have a up health systemr source of income? (Household - for ages [...] encounter Miscellaneous Notes * Telephone Encounter - Iadandy, No Show - 05/31/2024 7:09 AM EST Dear Umair Harrison, Looks like you missed an appointment with GRACIE OSEGUERA on 05/28/2024 at 08:20 AM. If you haven't already rescheduled, you have a couple of options: Reschedule in GillBus[employer]/scheduling Call us at [phone] Can't make a future appointment? Cancel and let someone else have your spot! It's easy to do via MyChart or by calling us. [facility] We hope to see you back in our office soon. Sincerely, GRACIE OSEGUERA documented in this encounter Plan of Treatment Upcoming Encounters Date Type Department Care Team (Kirk st Contact Info) Description 06/07/2024 1:40 PM EST Office Visit General Internal Medicine [address] [place] [address] [facility] [place] [address] Gracie Oseguera MD [address] [facility] [place] [address] Health Maintenance Due Date Last Done Comments [...] filedocumented as of this encounter Care Teams [facility] Attendant Relationship Specialty Start Date End Date Gracie Oseguera MD 200 [place] [address] PCP - General Internal Medicine 03/25/17 documented as of this encounter
--- OUTSIDE RECORDS SUMMARY | 2024-09-08 08:32 | External Medical Summary | Summary of Care ---
Author Name Unknown Organization [facility] Address [address] [place] [address] Phone [phone] Care Team Providers Care Mangle Feeder Name Role Phone Liyah Oseguera MD Primary Care Provider [phone] Reason for Visit * Reason Comments Outpatient Testing Encounter Details Date Type Department Care Team (Late st Contact Info) Description 06/07/2024 2:40 PM EST Laboratory Laboratory [facility] [address] [place] [address] [facility] 200 [facility] [place] [address] HTN, goal below 140/90; Hypokalemia; Type 2 diabetes mellitus with hemoglobin A1c goal of less than 7.0% ([facility]); Encounter for long-term (current) use of medications [...] 300 Strip 3 3 Active Dexcom G7 Bed Rubber DeviceIndication s:Type 2 diabetes mellitus with hemoglobin [...] Plan (03/03/2023 11:47 AM EDT): Managed via [facility] [...] Next Due Pneumococcal Conjugate Vacci ne, 20-valent ([id number]) 02/24/2023 Pneumococcal Polysaccharide PPV23 (Pneumovax) 05/04/2015 Seasonal [...] Medicine State Oscar Elena [address] [place] [place] [address] Liyah Oseguera MD [address] [place] [address] Pending Results Name Type Priority Associated Diagnoses [...] medications documented in this encounter Care Teams Mangle Feeder Relationship Specialty Start Date End Date Liyah Oseguera MD 200 [place] [address] PCP - General Internal Medicine 03/25/17 documented as of this encounter
--- OUTSIDE RECORDS SUMMARY | 2024-09-08 08:32 | External Medical Summary ---
Author Name Unknown Address Unknown Organization K01:[facility] [place] [address] [facility] [place] [facility] [address] Laboratory Report Ordering Provider Test Date Status KAILEE BOWMAN 06/07/2024 14:42:00 Final Observation Date Value Abnormality Reference (Units ) Status HbA1C 06/07/2024 14:42:00 7.2 Above high normal 4. 0-5.6 (%) Final The use of HbA1c to monitor glycemic status is based on normal hemoglobin and HbA composition. This test should not be used in patients with abnormal hemoglobin that affects the half life of the red blood cell or the in vivo glycation rates. Glucose, estimated average 06/07/2024 14:42:00 160 Above high normal <126 (mg/dL) Ilia reynaga Performing Location [facility] [place] [address] [facility] [facility] [address]
--- OUTSIDE RECORDS SUMMARY | 2024-09-08 08:32 | External Medical Summary | Summary of Care ---
Author Name Unknown Organization [facility] Address [address] [place] [address] Phone [phone] Care Team Providers Care Sociology Instructor Name Role Phone Liyah Oseguera MD Primary Care Provider [phone] Encounter Details Date Type Department Care Team (Late st Contact Info) Description 06/09/2024 Orders Only PATIENT PORTAL DO NOT DELETE THIS DEPT USED BY [place] [address] Allergies No known active allergiesdocumented as of this encounter (statuses as of 06/09/2024) Medications polyethylene glycol 3350 (MIRALAX) 255 gram [...] 300 Strip 3 3 Active Dexcom G7 Electrician Aircraft DeviceIndication s:Type 2 diabetes mellitus with hemoglobin [...] mouth in the morning. 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 0 to 44.9 in adult 11/08/2017 12/20/2017 Overview: Per Obesity protocol #1 documented as of this encounter (statuses as of 06/09/2024) Immunizations Name Administration Dates Next Due Pneumococcal Conjugate Vacci ne, 20-valent ([id number]) 02/24/2023 Pneumococcal Polysaccharide PPV23 (Pneumovax) 05/04/2015 Seasonal [...] [place] [address] [place] [address] Liyah Oseguera MD [address] [place] [address] [address] Health Maintenance Due Date Last Done Comments [...] Tdap) 03/25/2027 03/25/2017 Lipid Panel 06/07/2029 06/07/2024, 1212/2022, 05/10/2022, Additional history exists Lung Cancer Screening [...] filedocumented as of this encounter Care Teams Sociology Instructor Relationship Specialty Start Date End Date Liyah Oseguera MD [address] [facility] [place] [address] PCP - General Internal Medicine 03/25/17 documented as of this encounter
--- OUTSIDE RECORDS SUMMARY | 2024-09-08 08:32 | External Medical Summary | Summary of Care ---
Author Name Unknown Organization [facility] Address [address] [place] [address] Phone [phone] Care Team Providers Care Wool Cleaner Name Role Phone Liyah Oseguera MD Primary Care Provider [phone] Reason for Visit * Reason Onset Date Comments [facility]: Maintenance 04/12/2024 Encounter Details Date Type Department Care Team (Late st Contact Info) Description 04/12/2024 Telephone [facility], [facility] [address] [place] [address] Glenn Paredes, ASIF [address] [facility] [place] [address] [facility]: Maintenance Allergies No known active allergiesdocumented as of this encounter (statuses as of 04/12/2024) Medications Medication Sig Dispensed Refills Start Date End Date Status polyethylene glycol 3350 (MIRALAX) 255 gram powderIndications:O ther constipation Take 17 g by mouth as needed for Constipation. Dissolve one heaping tablespoon in 8 ounces of water or juice. 1 Bottle 2 06/16/2018 Active Additional Information Patient not taking.Reported on [...] the morning.. 90 Tablet 3 02/25/2023 Active NovoLOG FlexPen 100 UNIT/ML Subcutaneous Solution Pen-injector (insulin aspart) Take 4 units before normal meals and 2 units with snack 3 mL 5 02/25/2023 Active Additional Information Patient taking differently: Take [...] E 11.9 300 Strip 3 03/10/2023 Active Thrasos G7 Television Cabinet Finisher DeviceIndications:T ype 2 diabetes mellitus with hemoglobin A1c goal of less than 7.0% (HCC) USE TO CHECK BLOOD SUGARS CONTINOUSLY 1 Each 03/14/2023 Active Potassium Chloride 20 MEQ Oral PacketIndications:H [...] before bedtime. 360 Tablet 2 08/09/2023 Active Lantus SoloStar 100 UNIT/ML Subcutaneous Solution Pen-injector (Insulin Glargine Solostar)Indication s:Type 2 diabetes mellitus with hemoglobin A1c goal of less than 7.0% (HCC) INJECT 20 UNITS UNDER THE SKIN IN THE MORNING. IF FASTING SUGAR IS > 125 FOR 3 DAYS THEN INCREASE BY 2 UNITS AND CONTINUE. 15 mL 1 01/10/2024 Active Additional Information Patient taking differently: 10 Units Subcutaneous Daily(AM), Reported on 01/16/2024 Folic Acid 1 MG Oral TabletIndications:A lcohol abuse TAKE 1 TABLET BY MOUTH EVERY MORNING 90 Tablet 1 01/10/2024 Active Carvedilol 3.125 MG Oral Tablet (Coreg)Indications: HTN, goal below 140/90 TAKE 1 TABLET TWICE DAILY WITH BREAKFAST AND DINNER 180 Tablet 03/29/2024 Active Dexcom G7 SensorIndications:T ype 2 diabetes mellitus with hemoglobin A1c goal of less than 7.0% ([facility]) CHANGE EVERY 10 DAYS. 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 0 to 44.9 in adult 11/08/2017 12/20/2017 Overview: Per Obesity protocol #1 documented as of this encounter (statuses as of 04/12/2024) Immunizations Name Administration Dates Next Due Pneumococcal Conjugate Vacci ne, 20-valent ([id number]) 02/24/2023 Pneumococcal Polysaccharide PPV23 (Pneumovax) 05/04/2015 Seasonal [...] No 01/12/2024 Does the household have a [place] [place] [place] source of income? (Household - for ages [...] Telephone Encounter - Glenn Paredes RN - 04/12/2024 4:28 PM EDT Pt failed to keep appt with this RNCM. Have placed multiple phone calls to pt since 04/10, with no answer, and VM box full. This RN was unable to get into pt apartment building for appt today. documented in this encounter Plan of Treatment Upcoming Encounters Date Type Department Care Team (Late st Contact Info) Description 05/28/2024 8:20 AM EST Office Visit General Internal Medicine [place] [address] [place] [address] Liyah Oseguera MD [address] [place] [address] Health Maintenance Due Date Last Done Comments Diabetic Eye Exam 1980 Cologuard 2007 Colonoscopy 2007 Colorectal Cancer Screening 2007 Fecal Occult Blood Test 2007 Sigmoidoscopy 2007 Zoster Vaccines (1 of 2) 2012 DISCUSS TOBACCO CESSATION (REFER TO SMARTSET #4098) 03/15/2019 03/15/2018 Depression Monitoring 06/16/2019 06/16/2018 Albumin/Creatinine Ratio 05/10/2023 05/10/2022 HbA1c 11/02/2023 05/04/2023, 09/12/2022, 05/10/2022, Additional history exists COVID-19 Vaccine ( [...] filedocumented as of this encounter Care Teams Wool Cleaner Relationship Specialty Start Date End Date Liyah Oseguera MD [address] [place] [address] PCP - General Internal Medicine 03/25/17 documented as of this encounter
--- OUTSIDE RECORDS SUMMARY | 2024-09-08 08:32 | External Medical Summary | Summary of Care ---
Author Name Unknown Organization [facility] Address [address] [place] [address] Phone [phone] Care Team Providers Care Hr Business Partner Consultant Name Role Phone Liyah Oseguera MD Primary Care Provider [phone] Reason for Visit * Reason Onset Date Comments MyCode Nonconsent - Not interested at this time 06/07/2024 Encounter Details Date Type Department Care Team (Late st Contact Info) Description 06/07/2024 Orders Only Outcomes Research Department [address] [place] [address] Dahiana Tinoco CHRA MyCode Nonconsent Documentation Allergies No known active allergiesdocumented as of this encounter (statuses as of 06/07/2024) Medications polyethylene glycol 3350 (MIRALAX) 255 gram powderIndication s:Other constipation Take 17 g by mouth as needed for Constipation. Dissolve one heaping tablespoon in 8 ounces of water or juice. 1 Bottle 2 8 Active Additional Information Patient not taking.Reported on 02/07/2024 Daily Elise Oral Tablet Take 1 Tablet [...] 300 Strip 3 3 Active Dexcom G7 Precision Grinder External DeviceIndication s:Type 2 diabetes mellitus with hemoglobin [...] 11:47 AM EDT): Managed via [facility] for wound care Acquired absence of right leg below knee 02/24/2023 03/03/2023 Hypokalemia 05/10/2022 04/20/2023 Alcohol dependence with with drawal, unspecified 03/15/2018 03/15/2018 Body mass index (BMI) of 40. 0 to 44.9 in adult 11/08/2017 12/20/2017 Overview: Per Obesity protocol #1 documented as of this encounter (statuses as of 06/07/2024) Immunizations Name Administration Dates Next Due Pneumococcal Conjugate Vacci ne, 20-valent ([id number]) 02/24/2023 Pneumococcal Polysaccharide PPV23 (Pneumovax) 05/04/2015 Seasonal [...] as of this encounter Progress Notes * Dahiana Tinoco CHRA - 06/07/2024 1:37 PM EST MyCode Nonconsent Documentation Umair Harrison was approached in the clinic regarding participation in the [employer] and did not consent. documented in this encounter Plan of Treatment [...] Influenza Vaccine (FLU shot) (#1) 2024 02/24/2023, 02/24/2023, 03/15/2018, Additional history exists Diabetic Foot Exam 02/25/2024 [...] filedocumented as of this encounter Care Teams Hr Business Partner Consultant Relationship Specialty Start Date End Date Liyah Oseguera MD [address] [place] [address] PCP - General Internal Medicine 03/25/17 documented as of this encounter
--- OUTSIDE RECORDS SUMMARY | 2024-09-08 08:32 | External Medical Summary | Summary of Care ---
Author Name Unknown Organization [facility] Address [address] [place] [address] Phone [phone] Care Team Providers Care Survey Engineer Name Role Phone Liyah Oseguera MD Primary Care Provider [phone] Reason for Visit * Reason Comments eRx-Medication Refill Encounter Details Date Type Department Care Team (Late st Contact Info) Description 03/27/2024 Refill General Internal Medicine [facility] [address] [place] [address] Liyah Oseguera MD [address] [place] [address] HTN, goal below 140/90; Type 2 diabetes mellitus with hemoglobin A1c goal of less than 7.0% ([facility]) Allergies No known active allergiesdocumented as of this encounter (statuses as of 03/29/2024) Medications Medication Sig Dispensed Refills Start Date End Date Status polyethylene glycol 3350 (MIRALAX) 255 gram powderIndication [...] 300 Strip 3 3 Active Dexcom G7 Leather Cutter DeviceIndication s:Type 2 diabetes mellitus with hemoglobin A1c goal of less than 7.0% ([facility]) USE TO CHECK BLOOD SUGARS CONTINOUSLY 1 [...] BLOOD SUGARS CONTINUOUSLY 9 Each 4 Active Dexcom G7 SensorIndication s:Type 2 diabetes mellitus with hemoglobin A1c goal of less than 7.0% (HCC) CHANGE EVERY 10 DAYS. USE TO CHECK BLOOD SUGARS CONTINUOUSLY 3 Each 11 3 03/29/20 24 Discontinued(Re fill) Carvedilol 3.125 MG Oral Tablet (Coreg)Indicatio ns:HTN, goal below 140/90 Take 1 Tablet by mouth 2 times a day with morning and evening meals. 180 Tablet 3 3 03/29/20 24 Discontinued documented as of this encounter (statuses as of 03/29/2024) Active Problems Problem Noted Date Diagnosed Date [...] as of this encounter (statuses as of 03/29/2024) Resolved Problems Problem Noted Date Diagnosed Date [...] as of this encounter (statuses as of 03/29/2024) Immunizations Name Administration Dates Next Due Pneumococcal Conjugate Vacci ne, 20-valent ([id number]) 02/24/2023 Pneumococcal Polysaccharide PPV23 (Pneumovax) 05/04/2015 Seasonal [...] encounter Miscellaneous Notes * Telephone Encounter - Rosio Oliver [facility] - 03/29/2024 1:59 PM EDT Signed Prescriptions: Disp Refills Carvedilol 3.125 MG Oral Tablet (Coreg) 180 Ta*0 Sig: TAKE 1 TABLET TWICE DAILY WITH BREAKFAST AND DINNERAuthorizing Provider: Rafy OSEGUERA User: ROSIO OLIVER Dexcom G7 Sensor 9 Each 0 Sig: CHANGE EVERY 10 DAYS. USE TO CHECK BLOOD SUGARS CONT INUOUSLYAuthorizing Provider: Rafy OSEGUERA User: ROSIO OLIVER * Telephone Encounter - Rosio Oliver [facility] - 03/29/2024 1:52 PM EDT Patient taking differently: Take 2 Tablets by mouth 2 times a day with morning and evening meals. Called pt to determine what dose he is taking - he is taking as prescribed, 1 tab BID. He was also agreeable to schedule a return visit with Dr Oseguera - scheduled for 05/28/24. Also requesting Dexcom refills. Refills given to hold until next appt. Thank you, Rosio Oliver, PharmD Clinical Pharmacist [facility] 03/29/24 1:58 PM [phone] documented in this encounter Plan of Treatment Upcoming Encounters Date Type Department Care Team (Late st Contact Info) Description 04/10/2024 10:00 AM EDT Home Visit [facility] [address] [address] Glenn Paredes, RN [address] [address] 05/28/2024 8:20 AM EST Office Visit General Internal Medicine [employer] [address] [place] [address] Liyah Oseguera MD [address] [place] [address] Health Maintenance Due Date Last Done Comments Diabetic Eye Exam 1980 Cologuard 2007 Colonoscopy 2007 Colorectal Cancer Screening 2007 Fecal Occult Blood Test 2007 Sigmoidoscopy 2007 Zoster Vaccines (1 of 2) 2012 DISCUSS TOBACCO CESSATION (REFER TO SMARTSET #8487) 03/15/2019 03/15/2018 Depression Monitoring 06/16/2019 06/16/2018 Albumin/Creatinine [...] essential hypertension Type 2 diabetes mellitus with hemoglobin A1c goal of less than 7.0% (HCC) documented in this encounter Care Teams Survey Engineer Relationship Specialty Start Date End Date Liyah Oseguera MD [address] [place] [address] PCP - General Internal Medicine 03/25/17 documented as of this encounter
--- OUTSIDE RECORDS SUMMARY | 2024-09-08 08:32 | External Medical Summary | Summary of Care ---
Author Name Unknown Organization [facility] Address [address] [place] [address] Phone [phone] Care Team Providers Care Retail Selling Floor Leader Name Role Phone Liyah Oseguera MD Primary Care Provider [phone] Reason for Visit * Reason Onset Date Comments Medication Refill 03/22/2024 Encounter Details Date Type Department Care Team (Late st Contact Info) Description 03/22/2024 Refill General Internal Medicine [facility] [address] [facility] [place] [address] Liyah Oseguera MD 200 [place] [address] Type 2 diabetes mellitus with hemoglobin A1c goal of less than 7.0% ([facility])* Allergies No known active allergiesdocumented as of this encounter (statuses as of 05/14/2024) Medications polyethylene glycol 3350 (MIRALAX) 255 gram powderIndicatio ns:Other constipation Take 17 g by mouth as needed for Constipation. Dissolve one heaping tablespoon in 8 ounces of water or juice. 1 Bottle 2 018 Active Additional Information Patient not taking.Reported on 02/07/2024 Daily Elise Oral Tablet Take 1 Tab by mouth daily. Active Thiamine HCl 100 MG Oral Tablet (vitamin B-1)Indications :Alcohol abuse Take 1 Tablet by mouth in the morning. 90 Tablet 3 023 Active Additional Information Patient not taking.Reported on 08/01/2023 Magnesium Oxide -Mg Supplement 400 (240 Mg) MG Oral Tablet (Mag-Ox)Indicat ions:Hypokalemi a Take 1 Tablet by mouth in the morning. In the morning.. 90 Tablet 3 023 Active NovoLOG FlexPen 100 UNIT/ML Subcutaneous Solution Pen-injector (insulin aspart) Take 4 units before normal meals and 2 units with snack 3 mL 5 023 Active Additional Information Patient taking differently: Take 3 units before normal meals and 2 units with snack, Reported on 01/16/2024 Novofine Pen Needle 32G X 6 MM (NOVOFINE 32G PEN NEEDLE) Use one needle per injection with flexpen 100 Each 3 023 Active OneTouch Verio In Vitro Strip (Glucose Blood)Indicatio ns:Type 2 diabetes mellitus with hemoglobin A1c goal of less than 7.0% (HCC) Use to check blood sugars 3 times daily. E 11.9 300 Strip 3 023 Active Dexcom G7 Oracle Database Analyst DeviceIndicatio ns:Type 2 diabetes mellitus with hemoglobin A1c goal of less than 7.0% (HCC) USE TO CHECK BLOOD SUGARS CONTINOUSLY 1 Each 023 Active Potassium Chloride 20 MEQ Oral PacketIndicatio ns:Hypokalemia Take 20 mEq by mouth in the morning. 90 Packet 3 024 Active DULoxetine HCl 20 MG Oral Capsule Delayed Release Particles (duloxetine)Ind ications:MAYELA (generalized anxiety disorder) Take 1 Capsule by mouth in the morning. Do not cut, crush or chew. 30 Capsule 5 024 Active metFORMIN HCl ER 500 MG Oral Tablet Extended Release 24 Hour (Glucophage XR)Indications: Type 2 diabetes mellitus with hemoglobin A1c goal of less than 7.0% (HCC) Take 2 Tablets by mouth in the morning and 2 Tablets before bedtime. 360 Tablet 2 024 Active Lantus SoloStar 100 UNIT/ML Subcutaneous Solution Pen-injector (Insulin Glargine Solostar)Indica tions:Type 2 diabetes mellitus with hemoglobin A1c goal of less than 7.0% (HCC) INJECT 20 UNITS UNDER THE SKIN IN THE MORNING. IF FASTING SUGAR IS > 125 FOR 3 DAYS THEN INCREASE BY 2 UNITS AND CONTINUE. 15 mL 1 024 Active Additional Information Patient taking differently: 10 Units Subcutaneous Daily(AM), Reported on 01/16/2024 Folic Acid 1 MG Oral TabletIndicatio ns:Alcohol abuse TAKE 1 TABLET BY MOUTH EVERY MORNING 90 Tablet 1 024 Active Dexcom G7 SensorIndicatio ns:Type 2 diabetes mellitus with hemoglobin A1c goal of less than 7.0% ([facility]) CHANGE EVERY 10 DAYS. USE TO CHECK BLOOD SUGARS CONTINUOUSLY 3 Each 11 023 2023 Discontinued(R efill) Carvedilol 3.125 MG Oral Tablet (Coreg)Indicati ons:HTN, goal below 140/90 Take 1 Tablet by mouth 2 times a day with morning and evening meals. 180 Tablet 3 023 2023 Discontinued documented as of this encounter (statuses as of 05/14/2024) Active Problems Problem Noted Date Diagnosed Date Other chronic pancreatitis 04/20/2023 Type 2 diabetes mellitus wit h hemoglobin A1c goal of less than 7.0% 02/24/2023 Assessment & Plan (03/03/2023 10:45 AM EDT): Insulin dependent Recent referral to [facility] for management Hemoglobin AIC Results: [...] as of this encounter (statuses as of 05/14/2024) Resolved Problems Problem Noted Date Diagnosed Date Resolved Date Acute respiratory failure with hypoxia 03/03/2023 03/03/2023 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 0 to 44.9 in adult 11/08/2017 12/20/2017 Overview: Per Obesity protocol #1 documented as of this encounter (statuses as of 05/14/2024) Immunizations Name Administration Dates Next Due Pneumococcal Conjugate Vacci ne, 20-valent ([id number]) 02/24/2023 Pneumococcal Polysaccharide PPV23 (Pneumovax) 05/04/2015 Seasonal [...] encounter Miscellaneous Notes * Telephone Encounter - Jagdish Prado, NORI - 03/29/2024 2:03 PM EDTPending Prescriptions: Disp Refills Dexcom G7 Sensor 3 Each 11 Sig: CHANGE EVERY 10 DAYS. USE TO CHECK BLOOD SUGARS CONTINUOUSLY * Telephone Encounter - Jagdish Prado CMA - 03/29/2024 1:09 PM EDTPending Prescriptions: Disp Refills Dexcom G7 Sensor 3 Each 11 Sig: CHANGE EVERY 10 DAYS. USE TO CHECK BLOOD SUGARS CONTINUOUSLY * Telephone Encounter - Jagdish Prado CMA - 03/29/2024 1:08 PM EDT Pt needs seen in office, last visit was 02/24/2023. * Telephone Encounter - Thalia Prescott OSA - 03/26/2024 3:04 PM EDT Patient requesting medication be sent to pharmacy * Telephone Encounter - Helena Tilley OSA - 03/22/2024 12:37 PM EDT Did you pend patient's preferred pharmacy and medication before forwarding?yes Pharmacy: [id number] Pending Prescriptions: Disp Refills Dexcom G7 Sensor 3 Each 11 Sig: CHANGE EVERY 10 DAYS. USE TO CHECK BLOOD SUGARS CONTINUOUSLY Last Visit: 02/24/2023 (in office), Visit date not found (telemedicine) Next Visit: Visit date not found If no future appointments scheduled, and last appointment is greater than a year ago, please schedule patient for a follow-up appointment Last date the medication was ordered: 03/14/2023 Is this request for a controlled substance?No Urine Drug Screen:No results found for this or any previous visit. Patient Phone Numbers Labs: Lab Results Component Value Date/Time CREAT 0.7 02/24/2023 03:17 PM CREAT 1.95 (A) 11/13/2018 12:00 AM CREAT 0.8 03/15/2018 11:31 AM POTASSIUM 4.2 02/24/2023 03:17 PM POTASSIUM 3.5 11/13/2018 12:00 AM POTASSIUM 4.1 03/15/2018 11:31 AM LDL 93 05/26/2023 10:41 AM LDL 130 (H) 10/10/2017 11:48 AM LDL NOT APPLICABLE 10/10/2017 11:48 AM ALT 13 02/24/2023 03:17 PM ALT 16 03/15/2018 11:31 AM HGBA1C 6.5 (H) 05/04/2023 10:30 AM HGBA1C 6.5 (H) 03/15/2018 11:31 AM documented in this encounter Plan of Treatment Upcoming Encounters Date Type Department Care Team (Late st Contact Info) Description 05/28/2024 8:20 AM EST Office Visit General Internal Medicine [address] [place] [address] [facility] [place] [address] Liyah Oseguera MD [address] [facility] [place] [address] Health Maintenance Due Date Last Done Comments Diabetic Eye Exam 1980 Cologuard 2007 Colonoscopy 2007 Colorectal Cancer Screening 2007 Fecal Occult Blood Test 2007 Sigmoidoscopy 2007 Zoster Vaccines (1 of 2) 2012 DISCUSS TOBACCO CESSATION (REFER TO SMARTSET #3291) 03/15/2019 03/15/2018 Depression Monitoring 06/16/2019 06/16/2018 Albumin/Creatinine Ratio 05/10/2023 05/10/2022 HbA1c 11/02/2023 05/04/2023, 09/0 12/2022, 05/10/2022, Additional history exists COVID-19 Vaccine (1 - 2024-25 season) 2024 Influenza Vaccine (FLU shot) (#1) [...] Primary documented in this encounter Care Teams Retail Selling Floor Leader Relationship Specialty Start Date End Date Liyah Oseguera MD [address] [facility] [place] [address] PCP - General Internal Medicine 03/25/17 documented as of this encounter
--- OUTSIDE RECORDS SUMMARY | 2024-09-08 08:32 | External Medical Summary ---
Author Name Unknown Address Unknown Organization K01:[facility] [place] [address] [id number] Laboratory Report Ordering Provider Test Date Status KAILEE BOWMAN 06/07/2024 14:42:00 Final Observation Date Value Abnormality Reference (Units ) Status LDL, (direct) 06/07/2024 14:42:00 109 <=129 (mg/dL) Final LDL Cholesterol Reference Ra nges (mg/dL):
<70 Target level for high risk ASCVD patient
<100 Optimal for general population
100-129 Near optimal for general population
130-159 Borderline high
160-189 High
>=190 Very high Performing Location LABORATORY [facility] - [address] [place] [address]
--- OUTSIDE RECORDS SUMMARY | 2024-09-08 08:32 | External Medical Summary | Summary of Care ---
Author Name Unknown Organization [facility] Address [address] [place] [address] Phone [phone] Care Team Providers Care Heading Up Machine Operator Name Role Phone Liyah Oseguera MD Primary Care Provider [phone] Reason for Visit * Reason Comments Outpatient Testing Encounter Details Date Type Department Care Team (Late st Contact Info) Description 06/07/2024 2:40 PM EST Laboratory Laboratory [facility] [address] [place] [address] [facility] [address] [facility] [place] [address] HTN, goal below 140/90; Hypokalemia; Type 2 diabetes mellitus with hemoglobin A1c goal of less than 7.0% ([facility]); Encounter for long-term (current) use of [...] 300 Strip 3 3 Active Dexcom G7 Director Life Sciences DeviceIndication s:Type 2 diabetes mellitus with hemoglobin [...] Plan (03/03/2023 11:47 AM EDT): Managed via [facility] for wound care Acquired absence of right leg below knee 02/24/2023 03/03/2023 Hypokalemia 05/10/2022 04/20/2023 Alcohol dependence with with drawal, unspecified 03/15/2018 03/15/2018 Body mass index (BMI) of 40. 0 to 44.9 in adult 11/08/2017 12/20/2017 Overview: Per Obesity protocol #1 documented as of this encounter (statuses as of 06/07/2024) Immunizations Name Administration Dates Next Due Pneumococcal Conjugate Vacci ne, 20-valent ([id number]) 02/24/2023 Pneumococcal Polysaccharide PPV23 (Pneumovax) 05/04/2015 Seasonal [...] Medicine State [place] [address] [place] [address] Liyah Oseguera MD [address] [place] [address] Pending Results Name Type Priority Associated Diagnoses [...] medications documented in this encounter Care Teams Heading Up Machine Operator Relationship Specialty Start Date End Date Liyah Oseguera MD 200 [facility] [place] [address] PCP - General Internal Medicine 03/25/17 documented as of this encounter
--- OUTSIDE RECORDS SUMMARY | 2024-09-08 08:32 | External Medical Summary | Summary of Care ---
Author Name Unknown Organization [facility] Address [address] [place] [address] Phone [phone] Care Team Providers Care Telehealth Nurse Educator Name Role Phone Liyah Oseguera MD Primary Care Provider [phone] Reason for Visit * Reason Onset Date Comments Advice 05/29/2024 Encounter Details Date Type Department Care Team (Late st Contact Info) Description 05/29/2024 Telephone General Internal Medicine [facility] [address] [place] [address] Liyah Oseguera MD [address] [place] [address] Advice Allergies No known active allergiesdocumented as of this encounter (statuses as of 06/06/2024) Medications polyethylene glycol 3350 (MIRALAX) 255 gram [...] 300 Strip 3 3 Active Dexcom G7 Veterinary Physiologist DeviceIndication s:Type 2 diabetes mellitus with hemoglobin [...] as of this encounter (statuses as of 06/06/2024) Active Problems Problem Noted Date Diagnosed Date [...] as of this encounter (statuses as of 06/06/2024) Resolved Problems Problem Noted Date Diagnosed Date Resolved Date Acute respiratory failure with hypoxia 03/03/2023 03/03/2023 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 0 to 44.9 in adult 11/08/2017 12/20/2017 Overview: Per Obesity protocol #1 documented as of this encounter (statuses as of 06/06/2024) Immunizations Name Administration Dates Next Due Pneumococcal Conjugate Vacci ne, 20-valent ([id number]) 02/24/2023 Pneumococcal Polysaccharide PPV23 (Pneumovax) 05/04/2015 Seasonal [...] encounter Miscellaneous Notes * Telephone Encounter - Sarah Collier MED ASSIST - 05/29/2024 1:57 PM EST Patient scheduled 05/30 at 9:40 AM with PCP * Telephone Encounter - Liyah Oseguera MD - 05/29/2024 12:34 PM EST Will do tomorrow in visit * Telephone Encounter - Sarah Collier MED ASSIST - 05/29/2024 8:12 AM EST Patient presented to the clinic this morning following his missed appointment yesterday. Was informed that he would need to reschedule due to missing his appointment yesterday morning. Was requesting a DME order for a new walker due to his current one being broken. Would we be able to send for new walker? Please advise. documented in this encounter Plan of Treatment Upcoming Encounters Date Type Department Care Team (Late st Contact Info) Description 06/07/2024 1:40 PM EST Office Visit General Internal Medicine [facility] [address] [facility] [place] [address] Liyah Oseguera MD 200 [place] [address] Health Maintenance Due Date Last Done Comments Diabetic Eye Exam 1980 Cologuard 2007 Colonoscopy 2007 Colorectal Cancer Screening 2007 Fecal Occult Blood Test 2007 Sigmoidoscopy 2007 Zoster Vaccines (1 of 2) 2012 DISCUSS TOBACCO CESSATION (REFER TO SMARTSET #6112) 03/15/2019 03/15/2018 Depression Monitoring 06/16/2019 06/16/2018 Albumin/Creatinine [...] filedocumented as of this encounter Care Teams Telehealth Nurse Educator Relationship Specialty Start Date End Date Liyah Oseguera MD [address] [place] [address] PCP - General Internal Medicine 03/25/17 documented as of this encounter
--- OUTSIDE RECORDS SUMMARY | 2024-09-08 08:32 | External Medical Summary ---
Author Name Unknown Address Unknown Organization K01:LABORATORY [facility] - [address] [place] [address] Laboratory Report Ordering Provider Test Date Status KAILEE BOWMAN 06/07/2024 14:42:00 Final Observation Date Value Abnormality Reference (Units ) Status Vitamin B12 06/07/2024 14:42:00 120 676-1812 (pg/mL) Final Performing Location LAB[facility]ATORY [facility] - [address] [place] [address]
--- OUTSIDE RECORDS SUMMARY | 2024-09-08 08:32 | External Medical Summary | Summary of Care ---
Author Name Unknown Organization [facility] Address [address] [place] [address] Phone [phone] Care Team Providers Care Errand Runner Name Role Phone Liyah Oseguera MD Primary Care Provider [phone] Reason for Visit * Reason Onset Date Comments Medication Refill 03/22/2024 Encounter Details Date Type Department Care Team (Late st Contact Info) Description 03/22/2024 Refill General Internal Medicine [facility] 200 [place] [address] Liyah Oseguera MD 200 [place] [address] HTN, goal below 140/90 Allergies No known active allergiesdocumented as of [...] 300 Strip 3 023 Active Dexcom G7 Locate Technician DeviceIndicatio ns:Type 2 diabetes mellitus with hemoglobin [...] TO CHECK BLOOD SUGARS CONTINUOUSLY 3 Each 023 2023 Discontinued(R efill) Carvedilol 3.125 MG [...] Encounters: 02/25/23 114/62 02/24/23 126/80 05/10/22 122/72 12/28/18 122/76 BMI 27.0-27.9,adult 10/10/2017 Traumatic amputation of [...] Plan (03/03/2023 11:47 AM EDT): Managed via [facility] for wound care Acquired absence of right leg below knee 02/24/2023 03/03/2023 Hypokalemia 05/10/2022 04/20/2023 Alcohol dependence with with drawal, unspecified 03/15/2018 03/15/2018 Body mass index (BMI) of 40. 0 to 44.9 in adult 11/08/2017 12/20/2017 Overview: Per Obesity protocol #1 documented as of this encounter (statuses as of 05/31/2024) Immunizations Name Administration Dates Next Due Pneumococcal Conjugate Vacci ne, 20-valent ([id number]) 02/24/2023 Pneumococcal Polysaccharide PPV23 (Pneumovax) 05/04/2015 Seasonal [...] Miscellaneous Notes * Telephone Encounter - Jagdish Prado CMA - 03/29/2024 2:03 PM EDTPending Prescriptions: Disp Refills Carvedilol 3.125 MG Oral Tablet (Coreg) 180 Ta*3 Sig: Take 1 Tablet by mouth 2 times a day with morning and evening meals. * Telephone Encounter - Jagdish Prado CMA - 03/29/2024 1:10 PM EDTPending Prescriptions: Disp Refills Carvedilol 3.125 MG Oral Tablet (Coreg) 180 Ta*3 Sig: Take 1 Tablet by mouth 2 times a day with morning and evening meals. * Telephone Encounter - Jagdish Prado CMA - 03/29/2024 1:10 PM EDT Needs appt * Telephone Encounter - Thalia Prescott OSA - 03/26/2024 3:03 PM EDT Patient asking medications be sent into the pharmacy. * Telephone Encounter - Helena Tilley OSA - 03/22/2024 12:28 PM EDT Did you pend patient's preferred pharmacy and medication before forwarding?yes Pharmacy: [id number] Pending Prescriptions: Disp Refills Carvedilol 3.125 MG Oral Tablet (Coreg) 180 Ta*3 Sig: Take 1 Tablet by mouth 2 times a day with morning and evening meals. Last Visit: 02/24/2023 (in office), Visit date not found (telemedicine) Next Visit: Visit date not found If no future appointments scheduled, and last appointment is greater than a year ago, please schedule patient for a follow-up appointment Last date the medication was ordered: 05/04/2023 Is this request for a controlled substance?No [...] AM HGBA1C 6.5 (H) 03/15/2018 11:31 AM . documented in this encounter Plan of Treatment Upcoming Encounters Date Type Department Care Team (Late st Contact Info) Description 06/07/2024 1:40 PM EST Office Visit General Internal Medicine [facility] [address] [facility] [place] [address] Liyah Oseguera MD 200 [place] [address] Health Maintenance Due Date Last Done Comments Diabetic Eye Exam 1980 Cologuard 2007 Colonoscopy 2007 Colorectal Cancer Screening 2007 Fecal Occult Blood Test 2007 Sigmoidoscopy 2007 Zoster Vaccines (1 of 2) 2012 DISCUSS TOBACCO CESSATION (REFER TO SMARTSET #9411) 03/15/2019 03/15/2018 Depression Monitoring 06/16/2019 06/16/2018 Albumin/Creatinine Ratio 05/10/2023 05/10/2022 HbA1c 11/02/2023 05/04/2023, 09/0 12/2022, 05/10/2022, Additional history exists COVID-19 Vaccine (2023- season) 2024 Influenza Vaccine (FLU shot) (#1) [...] HTN, goal below 140/90 Unspecified essential hypertension documented in this encounter Care Teams Errand Runner Relationship Specialty Start Date End Date Liyah Oseguera MD [address] [place] [address], [place] [address] PCP - General Internal Medicine 03/25/17 documented as of this encounter
[2024-09-08 08:46] LABS: Adenovirus PCR Not Detected (NotDetected); Bordetella parapertussis PCR Not Detected (NotDetected); Bordetella pertussis PCR Not Detected (NotDetected); Chlamydia pneumoniae PCR Not Detected (NotDetected); Coronavirus 229E PCR Not Detected (NotDetected); Coronavirus CoV-2 (COVID19)PCR Not Detected (NotDetected); Coronavirus HKU1 PCR Not Detected (NotDetected); Coronavirus NL63 PCR Not Detected (NotDetected); Coronavirus OC43PCR Not Detected (NotDetected); Human Metapneumovirus PCR Not Detected (NotDetected); Influenza A PCR Not Detected (NotDetected); Influenza B PCR Not Detected (NotDetected); Mycoplasma pneumoniae PCR Not Detected (NotDetected); Parainfluenza Virus 1 PCR Not Detected (NotDetected); Parainfluenza Virus 2 PCR Not Detected (NotDetected); Parainfluenza Virus 3 PCR Not Detected (NotDetected); Parainfluenza Virus 4 PCR Not Detected (NotDetected); Respiratory Syncytial VirusPCR Not Detected (NotDetected); Rhinovirus/Enterovirus PCR Not Detected (NotDetected)
[2024-09-08] MEDS ORDERED: PHARMACY GLYCEMIC MGMT CONSULT PRN (08:54)
[2024-09-08] MEDS ORDERED: SODIUM PHOSPHATE 3 MMOL/1 ML INFUSION IV STA (09:06)
[2024-09-08] MEDS: LACTATED RINGER'S 1,000 ML IV SCH (09:27)
[2024-09-08] MEDS: SODIUM CHLOR 0.45% + 20MEQ KCL 20 MEQ/1,000 ML BAG IV SCH (10:11)
[2024-09-08 10:12] LABS: Anion Gap 12 (3-11); BUN Creatinine Ratio 21.3 (10-20); Blood Urea Nitrogen 27 mg/dl (6-23); Carbon Dioxide 30 mmol/L (21-32); Chloride 95 mmol/L (98-107); Creatinine Clr Calc Pharmacy 50.6 ml/min; Glucose 241 mg/dl (70-99(Fasting)); Magnesium 2.2 mg/dl (1.7-2.4); Sodium 137 mmol/L (136-145); Troponin I High Sensitivity 303.7 pg/ml (0-20)
[2024-09-08 10:54] LABS: Phosphorus < 1.0 mg/dl (2.5-4.9)
[2024-09-08] MEDS: POTASSIUM PHOSPHATE 15 MMOL in SODIUM CHLORIDE 0.9% 250 ML IV ONE (12:37)
[2024-09-08] MEDS: LANTUS PER UNIT CHARGE SC ONE (12:38)
--- NOTE | 2024-09-08 13:27 | Pharmacy Report ---
Pharmacy Glycemic Short Note 2 - Date of Service September 08, 2024 - Glycemic Short BSG Results (Last 24 hours): 09/08/24 09/08/24 09/08/24 04:16 04:26 07:27 Glucose 659 H* POC Glucose > 600 H* 474 H* 09/08/24 09/08/24 09/08/24 08:26 09:25 09:28 Glucose 241 H POC Glucose 415 H* 263 H 09/08/24 09/08/24 09/08/24 10:42 11:48 12:14 Glucose POC Glucose 230 H 139 H 147 H 09/08/24 12:35 Glucose POC Glucose 144 H OUTPATIENT ANTIDIABETIC REGIMEN: * Lantus 10 units SC daily * Metformin 1 g PO BIDM * Per patient's family, he has not been taking his insulin appropriately at home HbA1c: 15.6% (09/08/24) ASSESSMENT: * DH is a 64 year old male who presents to ED with hyperglycemia w/ increased weakness/confusion * Insulin gtt initiated in ED at DKA initial dosing * Initial labs indicative of possible mild DKA w/ anion gap of 16 and ketones in urine (1+), but carbon dioxide and VBG pH both WNL * Discussed w/ hospitalist and will treat as hyperglycemia only * Blood sugars corrected quickly w/ insulin infusion and patient has now been transitioned to SC basal/bolus regimen * Diet is ordered PLAN FOR INPATIENT GLYCEMIC CONTROL: * Hold outpatient oral diabetes medications * Basal insulin * Lantus 10 units SC daily * Bolus insulin * NovoLog per scale ACHS or Q6hrs while NPO * Goal Range: Low 120 mg/dL - High 160 mg/dL * Correction Factor: 45 mg/dL/unit * Nutritional / Prandial insulin per carb ratio of 1 unit per 12 grams CHO consumed
[2024-09-08 14:46] LABS: BUN Creatinine Ratio 22.2 (10-20); Calcium 9.3 mg/dl (8.6-10.3); Creatinine Clr Calc Pharmacy 54.9 ml/min; Magnesium 2.1 mg/dl (1.7-2.4); Phosphorus 2.5 mg/dl (2.5-4.9); Potassium 4.1 mmol/L (3.5-5.1)
--- NOTE | 2024-09-08 15:16 | History & Physical Report ---
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 Core Piler Pt states he has been taking his medications at home, question compliance Continue to monitor Improving Acute Metabolic/Toxic Encephalopathy Likely in setting of above Head CT unremarkable Alcohol level normal VBG as above normal, no noted hypercarbia Urine Tox screen pending Ammonia pending Delirium precautions. Frequent reorientation, avoid sedating medications as able Continue to monitor Elevated troponin Demand Ischemia Pt with elevated trop of 352.5 and 303.7 EKG without signs of ischemia Pt asymptomatic Echo ordered and pending Continue to monitor on telemetry Likely demand in setting of above Continue home coreg Continue to monitor, consider cardiology input Generalized weakness Likely in setting of above PT/OT ordered Acute Kidney Injury Cr 1.73 on admission On IV fluids as noted above Improving Continue other home meds as ordered Diet: DMII DVT prophylaxis: heparin SQ Dispo: PT/OT for recs once medically stable, will need CM input given pt's poor living conditions at home History of Present Illness Chief Complaint: AMS Primary Care Provider: Liyah Oseguera MD Pt is a 64yoM with PMHx significant for type 2 diabetes, recurrent acute pa ncreatitis, hypertension, 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 Pt poor historian and confused at the time of exam. Further history obtained from the chart and ED physician. A call was also placed to the patient's brother Epifanio who stated that though he lives with his other brother Doni, he was told that the pt was confused and had been wetting the bed. He states that he was very confused when they checked on him and very lethargic. He notes that they are not sure that he has been taking his medications at home. [employer] chart review shows that pt is connected with [facility] as of 2023. He denied any chest pain or SOB. Allergies Allergy/AdvReac Type Severity Reaction Status Date / Time No Known Allergies Allergy Verified 09/08/24 10:11 Home Medications Medication Instructions Recorded Confirmed Type metformin 500 mg tablet,extended 1,000 mg PO BID 01/07/24 09/08/24 History release 24 hr insulin glargine 100 unit/mL (3 10 unit (0.1 mL) subcut QAM #0 mL 01/09/24 09/08/24 Rx mL) subcutaneous pen (Lantus Solostar U-100 Insulin) carvedilol 3.125 mg tablet 3.125 mg PO BIDWMEAL 09/08/24 09/08/24 History duloxetine 20 mg capsule,delayed 20 mg PO DAILY 09/08/24 09/08/24 History release folic acid 1 mg tablet 1 mg PO DAILY 09/08/24 09/08/24 History Past Med/Surg History Problem List (Updated 02/09/24 @ 00:06 by Background Andra) Acute metabolic encephalopathy Elevated troponin (Acute) Confusion (Acute) DKA (diabetic ketoacidosis) (Acute) New onset atrial fibrillation Unresponsive episode Acute alcoholism (Acute) Hypothermia (Acute) Elevated lactic acid level (Acute) Hypoglycemia (Acute) AMS (altered mental status) (Acute) Acute hyperkalemia (Acute) Diabetes mellitus DKA (diabetic ketoacidosis) (Acute) Diabetes mellitus, new onset (Acute) AMS (altered mental status) (Acute) High anion gap metabolic acidosis Metabolic encephalopathy (Acute) IDALIA (acute kidney injury) Hyperosmolar hyperglycemic state (HHS) Intertrochanteric fracture of left femur Closed fracture of left hip (Acute) Alcohol abuse (Acute) Fall (Acute) Diabetes mellitus type 2 in nonobese Alcohol withdrawal (Acute) Hyponatremia Marijuana abuse Cocaine abuse Alcoholism Acute pancreatitis (Acute) Nausea & vomiting (Acute) Depression (Chronic) 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 Obesity GERD (gastroesophageal reflux disease) Surgical History History of mandibular surgery BROKEN JAW 1978 History of tooth extraction ALL TEETH REMOVED Complete below knee amputation of right lower extremity Family History Sister Family history of diabetes mellitus Brother Pancreatic carcinoma Social History Smoking Status: Current some day smoker Tobacco Type: Cigarettes Second Hand Exposure: No; Do You Dip or Chew Tobacco: No; Tobacco Cessation Education Requested by Patient: No Hx Alcohol Use: Yes Alcohol type: beer Alcohol Intake Frequency: 4 or More x per/Week Alcohol Intake Frequency Comment: 6 pack of beer + daily Hx Substance Use: No Preferred Language: Yoruba Communication Ability: Effective Community Arts Centre Manager Required: No Beliefs That Will Affect Care: None marital status: Single Current Living Situation: Alone Current Living Situation Comment: Lives with brother Other Information That Helps Us Care for You: No Feels Safe at Home: Yes Safety Concerns: Feels Safe At This Time Assistive Devices: Prosthesis Review of Systems Review of Systems: All systems reviewed & are unremarkable except as noted in Subjective Physical Exam Physical Exam: General: Alert, orientedx2. No acute distress HEENT: NC/AT CV: RRR Resp: Breath sounds clear bilaterally, no increased effort of breathing Abdomen: Soft, nontender Extremities: R BKA Results & Data Results & Data Vital Signs (Past 12 Hours) Vital Signs Temp Pulse Pulse Resp BP Pulse Ox O2 Del Method 09/08/24 06:25 75 18 123/84 100 Room Air 09/08/24 06:09 73 20 129/88 99 Room Air 09/08/24 04:19 36.6 C 77 18 100 Room Air 09/08/24 04:15 77
[2024-09-08] MEDS: SODIUM CHLORIDE 0.9% 1,000 ML IV SCH (16:29)
[2024-09-08] MEDS ORDERED: ONDANSETRON INJ 2 MG/ML 2 ML VIAL IV PRN (17:06)
[2024-09-08] MEDS ORDERED: POLYETHYLENE (MIRALAX) 17 GM PACK PO PRN (17:06)
[2024-09-08] MEDS ORDERED: ACETAMINOPHEN 500 MG TAB PO PRN (17:06)
[2024-09-08] MEDS: carvediloL 3.125 MG TAB PO SCH (17:22)
[2024-09-08] MEDS: HEPARIN SOD 5,000 UNIT/0.5 ML VIAL SQ SCH (21:23)
[2024-09-09] MEDS: INSULIN ASPART PER UNIT CHARGE SC SCH (02:00)
[2024-09-09] MEDS: LANTUS PER UNIT CHARGE SC SCH (08:10)
[2024-09-09] MEDS: FOLIC ACID 1 MG TAB PO SCH (08:11)
[2024-09-09] MEDS: DULoxetine HCL 20 MG CAP PO SCH (08:11)
[2024-09-09 09:10] LABS: Hematocrit (blood only) 30.3 % (42.0-52.0); Hemoglobin 10.3 g/dl (14.0-18.0); Mean Corpuscular Hemoglobin 28.2 pg (25.0-34.0); Mean Platelet Volume 11.4 fL (9.4-12.4); Platelet Count 119 K/uL (130-400); RDW Coefficient of Variation 12.3 % (11.5-14.5); RDW Standard Deviation 37.4 fL (36.4-46.3); Red Blood Count 3.65 M/uL (4.70-6.10)
[2024-09-09 09:17] LABS: Albumin Globulin Ratio 1.5 (0.9-2); Albumin Level 3.5 gm/dl (3.4-5.0); BUN Creatinine Ratio 23.1 (10-20); Bilirubin,Total 0.8 mg/dl (0.2-1.0); Calcium 8.5 mg/dl (8.6-10.3); Creatinine Clr Calc Pharmacy 91.8 ml/min; Globulin 2.4 gm/dl (2.5-4.0); Magnesium 1.6 mg/dl (1.7-2.4); Phosphorus 1.7 mg/dl (2.5-4.9); Potassium 4.5 mmol/L (3.5-5.1); Total Protein 5.9 gm/dl (6.0-8.3)
[2024-09-09 09:38] LABS: Basophils # (auto) 0.01 K/uL (0.00-0.20); Basophils % (auto) 0.2 %; Eosinophils # (auto) 0.05 K/uL (0.00-0.50); Eosinophils % (auto) 1.2 %; Lymphocytes # (auto) 2.26 K/uL (1.20-3.40); Lymphocytes % (auto) 53.8 %; Monocytes # (auto) 0.43 K/uL (0.11-0.59); Monocytes % (auto) 10.2 %; Neutrophils # (auto) 1.45 K/uL (1.40-6.50); Neutrophils % (auto) 34.6 %
[2024-09-09] MEDS ORDERED: SODIUM PHOSPHATE 3 MMOL/1 ML INFUSION IV STA (09:42)
[2024-09-09 10:05] LABS: Troponin I High Sensitivity 155.2 pg/ml (0-20)
[2024-09-09] MEDS: MAGNESIUM OXIDE 400 MG TAB PO SCH (10:27)
[2024-09-09] MEDS: SODIUM PHOSPHATE 15 MMOL in SODIUM CHLORIDE 0.9% 250 ML IV ONE (10:28)
--- NOTE | 2024-09-09 10:47 | Hospitalist Progress Note ---
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 Primer Waterproofing Machine Adjuster Pt states he has been taking his medications at home, question compliance Continue to monitor Improving Acute Metabolic/Toxic Encephalopathy Likely in setting of above Head CT unremarkable Alcohol level normal VBG as above normal, no noted hypercarbia Urine Tox screen pending Ammonia pending Delirium precautions. Frequent reorientation, avoid sedating medications as able Continue to monitor Elevated troponin Demand Ischemia Pt with elevated trop of 352.5 and 303.7 EKG without signs of ischemia Pt asymptomatic Echo ordered and pending Continue to monitor on telemetry Likely demand in setting of above Continue home coreg Continue to monitor, consider cardiology input Generalized weakness Likely in setting of above PT/OT ordered Acute Kidney Injury Cr 1.73 on admission On IV fluids as noted above Improving Abscess, Mid upper back Pt with draining abscess in the mid upper back Wound culture ordered and pending Started on Augmentin BID with topical mupirocin Wound care nurse consult Pt with only local symptoms Continue to monitor Continue other home meds as ordered Diet: DMII DVT prophylaxis: heparin SQ Dispo: PT/OT for recs once medically stable, will need CM input given pt's poor living conditions at home Admission and Anticipated Discharge Date Admission Date: September 08, 2024 Subjective pt was seen in the AM AAOx3 today Denies acute concerns Noted lesion on his back with draining pus Review of Systems Review of Systems: All systems reviewed & are unremarkable except as noted in Subjective Physical Exam Physical Exam: General: Alert, orientedx2. No acute distress HEENT: NC/AT CV: RRR Resp: Breath sounds clear bilaterally, no increased effort of breathing Abdomen: Soft, nontender back: abscess in mid upper back Extremities: R BKA Results & Data Results & Data Vital Signs (Past 12 Hours) Vital Signs Temp Pulse Pulse Resp BP Pulse Ox O2 Del Method 09/09/24 08:28 37.0 C 73 18 136/84 99 Room Air 09/09/24 08:00 74 09/09/24 04:52 72 16 120/94 99 Room Air 09/08/24 23:51 36.9 C 68 16 113/84 98 Room Air 09/08/24 23:10 74
[2024-09-09] MEDS: MUPIROCIN 2% OINT 22 GM TUBE EXT SCH (11:46)
--- NOTE | 2024-09-09 14:31 | Cardiology Consultation ---
Date of Consultation September 09, 2024 Assessment & Plan (1) Elevated troponin: This is a 64 year old man with a pmhx of DMII, recurrent pancreatitis, HTN, here with DKA vs HHS. He denies a history of chest pain. No significant dyspnea with exertion. No N/V/OKEEFE; afebrile. No PND or orthopnea. Mildly elevated troponins, which were downtrending. TTE performed today shows normal wall motion and normal LVEF. Elevated troponin in the setting of demand ischemia in the setting of DKA vs HHS. TTE shows normal wall motion and preserved ejection fraction. Can consider ischemic work up in the outpatient setting or coronary CTA. Vinay Lutz MD I provided 80min of care to the patient in regards to management of elevated troponin. History of Present Illness Reason for Consultation: Elevated Troponin Attending Physician: Suma Valdez MD History of Present Illness This is a 64 year old man with a pmhx of DMII, recurrent pancreatitis, HTN, here with DKA vs HHS. He denies a history of chest pain. No significant dyspnea with exertion. No N/V/OKEEFE; afebrile. No PND or orthopnea. Mildly elevated troponins, which were downtrending. TTE performed today shows normal wall motion and normal LVEF. Allergies Allergy/AdvReac Type Severity Reaction Status Date / Time No Known Allergies Allergy Verified 09/08/24 10:11 Home Medications Medication Instructions Recorded Confirmed Type metformin 500 mg tablet,extended 1,000 mg PO BID 01/07/24 09/08/24 History release 24 hr insulin glargine 100 unit/mL (3 10 unit (0.1 mL) subcut QAM #0 mL 01/09/24 09/08/24 Rx mL) subcutaneous pen (Lantus Solostar U-100 Insulin) carvedilol 3.125 mg tablet 3.125 mg PO BIDWMEAL 09/08/24 09/08/24 History duloxetine 20 mg capsule,delayed 20 mg PO DAILY 09/08/24 09/08/24 History release folic acid 1 mg tablet 1 mg PO DAILY 09/08/24 09/08/24 History Patient History Medical History Encephalopathy Pancreatitis, recurrent Hx of hematuria Hx of pancreatitis Alcohol dependence a fifth of liquor and 12 beers daily for yrs. Obesity GERD (gastroesophageal reflux disease) Surgical History History of mandibular surgery BROKEN JAW 1978 History of tooth extraction ALL TEETH REMOVED Complete below knee amputation of right lower extremity Family History Sister Family history of diabetes mellitus Brother Pancreatic carcinoma Social History Smoking Status: Current some day smoker Tobacco Type: Cigarettes Second Hand Exposure: No; Do You Dip or Chew Tobacco: No; Tobacco Cessation Education Requested by Patient: No Hx Alcohol Use: Yes Alcohol type: beer Alcohol Intake Frequency: 4 or More x per/Week Alcohol Intake Frequency Comment: 6 pack of beer + daily Hx Substance Use: No Preferred Language: Ukrainian Communication Ability: Effective Oral Hygienist Required: No Beliefs That Will Affect Care: None marital status: Single Current Living Situation: Alone Current Living Situation Comment: Lives with brother Other Information That Helps Us Care for You: No Feels Safe at Home: Yes Safety Concerns: Feels Safe At This Time Assistive Devices: Prosthesis Review of Systems Review of Systems: All systems reviewed & are unremarkable except as noted in HPI & below Physical Exam Physical Exam: GEN: AAOx3; NAD HEENT: No JVD CV: RRR; S1+S2; no M/R/G PULM: CTA b/l; no W/R/R ABD: Soft; NTND EXT: no lower extremity edema; RLL amputation. NEURO: Deferred. Results & Data Vital Signs (Past 12 Hours) Vital Signs Temp Pulse Pulse Resp BP Pulse Ox O2 Del Method 09/09/24 11:36 36.7 C 73 16 157/96 H 98 Room Air 09/09/24 08:28 37.0 C 73 18 136/84 99 Room Air 09/09/24 08:00 74 09/09/24 04:52 72 16 120/94 99 Room Air Laboratory Results Cardiac Enzymes 09/09/24 Range/Units 08:36 AST 30 (13-39) U/L Troponin I High Sens 155.2 H* D (0-20) pg/ml CBC 09/09/24 Range/Units 08:36 WBC 4.20 L (4.8-10.8) K/ul RBC 3.65 L (4.70-6.10) M/uL Hgb 10.3 L (14.0-18.0) g/dl Hct 30.3 L (42.0-52.0) % Plt Count 119 L (130-400) K/uL Neut # (Auto) 1.45 (1.40-6.50) K/uL Lymph # (Auto) 2.26 (1.20-3.40) K/uL [place] # (Auto) 0.43 (0.11-0.59) K/uL Eos # (Auto) 0.05 (0.00-0.50) K/uL Baso # (Auto) 0.01 (0.00-0.20) K/uL Comprehensive Metabolic Panel 09/08/24 09/09/24 Range/Units 14:04 08:36 Sodium 132 L 126 L (136-145) mmol/L Potassium 4.1 D 4.5 (3.5-5.1) mmol/L Chloride 93 L 91 L (98-107) mmol/L Carbon Dioxide 28 26 (21-32) mmol/L BUN 26 H 18 (6-23) mg/dl Creatinine 1.17 0.78 D (0.6-1.4) mg/dl Glucose 186 H 313 H* (70-99(Fasting)) mg/dl Calcium 9.3 8.5 L (8.6-10.3) mg/dl AST 30 (13-39) U/L ALT 15 (7-52) U/L Alkaline Phosphatase 56 (34-104) U/L Total Protein 5.9 L D (6.0-8.3) gm/dl Albumin 3.5 (3.4-5.0) gm/dl Intake and Output 09/08/24 09/09/24 09/09/24 22:59 06:59 14:59 Intake Total 717.667 / 3750.723 1000 / 3750.723 255 / 255 Output Total 500 / 1000 500 / 1000 200 / 200 Balance 217.667 / 2750.723 500 / 2750.723 55 / 55 Intake: IV 717.667 / 3750.723 1000 / 3750.723 255 / 255 Insulin Regular 250 units In 0 / 33.056 Sodium Chloride 0.9% 247.5 ml @ 5.1 UNITS/HR 5.1 mls/hr IV . Q24H [facility] Rx#:[id number] Potassium Phosphate 15 mmol In 255 / 255 Sodium Chloride 0.9% 250 ml @ 88 mls/hr IV ONE ONE Rx#: [id number] Sodium Chlor 0.45% + 20Meq KCl 462.667 / 462.667 20 meq In 1,000 ml @ 80 mls/hr IV .[id number] [facility] Rx#:[id number] Sodium Chloride 0.9% 1,000 ml @ 1000 / 1000 80 mls/hr IV .[id number] [facility] Rx#: [id number] Sodium Phosphate 15 mmol In 255 / 255 Sodium Chloride 0.9% 250 ml @ 88 mls/hr IV ONE ONE Rx#: [id number] Output: Urine 500 / 1000 500 / 1000 200 / 200 Medications Administered Home Medications Medication Instructions Recorded Confirmed Last Taken metformin 500 mg tablet,extended 1,000 mg PO BID 01/07/24 09/08/24 Unknown release 24 hr insulin glargine 100 unit/mL (3 10 unit (0.1 mL) subcut QAM #0 mL 01/09/24 09/08/24 01/06/24 09:00 mL) subcutaneous pen (Lantus Solostar U-100 Insulin) carvedilol 3.125 mg tablet 3.125 mg PO BIDWMEAL 09/08/24 09/08/24 Unknown duloxetine 20 mg capsule,delayed 20 mg PO DAILY 09/08/24 09/08/24 Unknown release folic acid 1 mg tablet 1 mg PO DAILY 09/08/24 09/08/24 Unknown Active Medications Generic Name Dose Route Start Last Admin Trade Name Freq PRN Reason Stop Dose Admin Carvedilol 3.125 mg 09/08/24 17:00 09/09/24 08:11 Carvedilol 3.125 Mg Tab PO 10/08/24 16:59 3.125 mg BIDM RONEY Administration Duloxetine HCl 20 mg 09/09/24 09:00 09/09/24 08:11 Duloxetine Hcl 20 Mg Cap PO 10/09/24 08:59 20 mg DAILY RONEY Administration Folic Acid 1 mg 09/09/24 09:00 09/09/24 08:11 Folic Acid 1 Mg Tab PO 10/09/24 08:59 1 mg DAILY RONEY Administration Heparin Sodium (Porcine) 5,000 units 09/08/24 21:00 09/09/24 09:36 Heparin Sod 5,000 Unit/0.5 Ml Vial SQ 10/08/24 20:59 Not Given Q12 RONEY Sodium Chloride 1,000 mls @ 80 mls/hr 09/08/24 16:15 09/09/24 04:48 Nss IV 09/09/24 17:14 80 mls/hr .[id number] RONEY Administration Insulin Aspart 0 units 09/08/24 13:30 09/09/24 11:46 Insulin Aspart Per Unit Charge SC 10/08/24 13:29 8 units ACHS RONEY Administration Insulin Glargine 10 units 09/09/24 09:00 09/09/24 08:10 Lantus Per Unit Charge SC 10/09/24 08:59 10 units DAILY RONEY Administration Magnesium Oxide 400 mg 09/09/24 09:45 09/09/24 10:27 Magnesium Oxide 400 Mg Tab PO 10/09/24 09:44 400 mg BID RONEY Administration Mupirocin 1 appln 09/09/24 09:45 09/09/24 11:46 Mupirocin 2% Oint 22 Gm Tube EXT 10/09/24 09:44 1 appln BID RONEY Administration
[2024-09-09] MEDS: AMOXICILLIN/CLAVULANATE 875 MG TAB PO SCH (16:45)
[2024-09-10 07:43] LABS: Albumin Globulin Ratio 1.4 (0.9-2); Albumin Level 3.4 gm/dl (3.4-5.0); BUN Creatinine Ratio 16.2 (10-20); Bilirubin,Total 0.6 mg/dl (0.2-1.0); Calcium 8.6 mg/dl (8.6-10.3); Creatinine Clr Calc Pharmacy 96.8 ml/min; Globulin 2.4 gm/dl (2.5-4.0); Magnesium 1.7 mg/dl (1.7-2.4); Phosphorus 2.3 mg/dl (2.5-4.9); Potassium 3.9 mmol/L (3.5-5.1); Total Protein 5.8 gm/dl (6.0-8.3)
[2024-09-10 08:28] LABS: Hematocrit (blood only) 31.5 % (42.0-52.0); Hemoglobin 10.9 g/dl (14.0-18.0); Mean Corpuscular Hemoglobin 28.2 pg (25.0-34.0); Mean Corpuscular Hgb Conc 34.6 g/dL (32.0-36.0); Mean Corpuscular Volume 81.6 fL (80.0-100.0); Mean Platelet Volume 11.8 fL (9.4-12.4); Platelet Count 118 K/uL (130-400); RDW Standard Deviation 35.9 fL (36.4-46.3); Red Blood Count 3.86 M/uL (4.70-6.10); White Blood Count 4.09 K/ul (4.8-10.8)
[2024-09-10] MEDS: LANTUS PER UNIT CHARGE SC SCH (08:28)
[2024-09-10 08:34] LABS: Basophils # (auto) 0.02 K/uL (0.00-0.20); Basophils % (auto) 0.5 %; Eosinophils # (auto) 0.07 K/uL (0.00-0.50); Eosinophils % (auto) 1.7 %; Immature Granulocytes # (auto) 0.01 K/uL (0.01-0.20); Immature Granulocytes % (auto) 0.2 %; Lymphocytes # (auto) 2.05 K/uL (1.20-3.40); Lymphocytes % (auto) 50.1 %; Monocytes # (auto) 0.47 K/uL (0.11-0.59); Monocytes % (auto) 11.5 %; Neutrophils # (auto) 1.47 K/uL (1.40-6.50)
--- NOTE | 2024-09-10 10:25 | Nephrology Consultation ---
Date of Consultation September 10, 2024 Assessment & Plan (1) Hyponatremia: Initially was pseudohyponatremia with very blood glucose of 650+. But then became normal to 137 but then dropping again. na now 127. Multifactorial and difficult to exactly categorize---Will need to check for Cortisol, TSH, Urine Osm and urine Na also. hyponatremia is related with heavy alcohol use high fluid intake as well as very very poor protein intake and he might also have underlying SIADH. Will do FFR of 1500 ml per day. very poor nutrition pre admission---Super low Phos is the clue. he will need to dramatically raise the protein intake. Again he will be impossible to manage at home !! he is already demanding that he be discharged from the hospital today. In such unreliable patient I do not use urea or diuretics or really any medications specifically for hyponatremia. he has to come for follow up and have frequent blood work to monitor these medications. as long as he keeps drinking alcohol and does not take care of his diabetes there is no way to manage his hyponatremia (2) IDALIA (acute kidney injury): pre renal type from Super high glucose HHS syndrome. Now normal. (3) Hyperosmolar hyperglycemic state (HHS): glucose much better now. However not sure how we can mange him at home !!! he has already demanding to be discharged and go home Plan case discussed with primary service. Total time spent 62 minutes History of Present Illness Reason for Consultation: Hyponatremia Attending Physician: Suma Valdez MD History of Present Illness 64/M with type 2 diabetes, recurrent acute pancreatitis, hypertension, traumatic amputation of the right leg below knee, phantom limb syndrome with pain, mild depression, alcohol abuse, GERD presented on 09/08/24 with AMS and very elevated blood sugars > 600 at home . Was found to be covered with urine and feces. Blood glucose was very high on Adm 650. Despite that low K and very low Phos also at < 1. Got iv phos and then on oral phos now. K is normal now. na was low with ( very high glucose ) then became normal to 137 and now dropping again--hence the consult. had IDALIA with creat 1.73 but already normal now. ROS--Not able to obtain. he does not remember what all happened before admission. Physical Exam Physical Exam: GEN: AAOx3; No distress. HEENT: No JVD CV: RRR; S1+S2; no M/R/G PULM: Clear b/l ABD: Soft non tender EXT: no lower extremity edema; RLL amputation. Allergies Allergy/AdvReac Type Severity Reaction Status Date / Time No Known Allergies Allergy Verified 09/08/24 10:11 Home Medications Medication Instructions Recorded Confirmed Type metformin 500 mg tablet,extended 1,000 mg PO BID 01/07/24 09/08/24 History release 24 hr insulin glargine 100 unit/mL (3 10 unit (0.1 mL) subcut QAM #0 mL 01/09/24 09/08/24 Rx mL) subcutaneous pen (Lantus Solostar U-100 Insulin) carvedilol 3.125 mg tablet 3.125 mg PO BIDWMEAL 09/08/24 09/08/24 History duloxetine 20 mg capsule,delayed 20 mg PO DAILY 09/08/24 09/08/24 History release folic acid 1 mg tablet 1 mg PO DAILY 09/08/24 09/08/24 History Patient History Medical History Encephalopathy Pancreatitis, recurrent Hx of hematuria Hx of pancreatitis Alcohol dependence a fifth of liquor and 12 beers daily for yrs. Obesity GERD (gastroesophageal reflux disease) Surgical History History of mandibular surgery BROKEN JAW 1978 History of tooth extraction ALL TEETH REMOVED Complete below knee amputation of right lower extremity Family History Sister Family history of diabetes mellitus Brother Pancreatic carcinoma Social History Smoking Status: Current some day smoker Tobacco Type: Cigarettes Second Hand Exposure: No; Do You Dip or Chew Tobacco: No; Tobacco Cessation Education Requested by Patient: No Hx Alcohol Use: Yes Alcohol type: beer Alcohol Intake Frequency: 4 or More x per/Week Alcohol Intake Frequency Comment: 6 pack of beer + daily Hx Substance Use: No Preferred Language: Maltese Communication Ability: Effective Field Administrative Assistant Required: No Beliefs That Will Affect Care: None marital status: Single Current Living Situation: Alone Current Living Situation Comment: Lives with brother Other Information That Helps Us Care for You: No Feels Safe at Home: Yes Safety Concerns: Feels Safe At This Time Assistive Devices: Prosthesis Results & Data Vital Signs (Past 12 Hours) Vital Signs Temp Pulse Pulse Resp BP Pulse Ox O2 Del Method 09/10/24 07:34 36.6 C 66 20 144/90 H 100 Room Air 09/10/24 03:09 36.9 C 70 16 145/89 H 100 Room Air 09/09/24 23:44 81 09/09/24 22:45 36.8 C 67 18 146/88 H 99 Room Air Laboratory Results CBC, renal Panel, Diagnostic Findings CXR and ECHO reviewed
--- NOTE | 2024-09-10 10:58 | Pharmacy Report ---
Pharmacy Glycemic Short Note 2 - Date of Service September 10, 2024 - Glycemic Short BSG Results (Last 24 hours): 09/09/24 09/09/24 09/09/24 11:30 16:22 20:27 Glucose POC Glucose 265 H 193 H 201 H 09/10/24 09/10/24 06:49 07:34 Glucose 210 H POC Glucose 206 H OUTPATIENT ANTIDIABETIC REGIMEN: * Lantus 10 units SC daily * Metformin 1 g PO BIDM * Per patient's family, he has not been taking his insulin appropriately at home HbA1c: 15.6% (09/08/24) ASSESSMENT: 09/10: * Umair received 30 units of insulin yesterday, 10 of which were basal. BSGs were: [phone] mg/dL. * Continues on Augmentin for infection. Tolerating T2DM diet. * Fasting remains elevated at 206 mg/dL this AM. Patient likely with significant basal deficiency given A1c. Will increase basal by 20% today. * Also tightening Novolog parameters and goal range for now. Will likely need to loosen once basal catches up with patient as he does have a tendency to drop below goal in the evenings during past admissions. 09/08: * ASHWINI is a 64 year old male who presents to ED with hyperglycemia w/ increased weakness/confusion * Insulin gtt initiated in ED at DKA initial dosing * Initial labs indicative of possible mild DKA w/ anion gap of 16 and ketones in urine (1+), but carbon dioxide and VBG pH both WNL * Discussed w/ hospitalist and will treat as hyperglycemia only * Blood sugars corrected quickly w/ insulin infusion and patient has now been transitioned to SC basal/bolus regimen * Diet is ordered PLAN FOR INPATIENT GLYCEMIC CONTROL: * Hold outpatient oral diabetes medications * Basal insulin * Lantus 12 units SC daily * Bolus insulin * NovoLog per scale ACHS or Q6hrs while NPO * Goal Range: Low 110 mg/dL - High 140 mg/dL * Correction Factor: 30 mg/dL/unit * Nutritional / Prandial insulin per carb ratio of 1 unit per 10 grams CHO consumed
[2024-09-10] MEDS: POT PHOSPHATE MONOBASIC W/ SOD TAB PO SCH (13:08)
--- NOTE | 2024-09-10 13:21 | Hospitalist Progress Note ---
Date of Service September 10, 2024 Assessment & Plan (1) Elevated troponin: (2) Acute metabolic encephalopathy: Plan Pt is a 64yoM with PMHx significant for type 2 diabetes, recurrent acute pancreatitis, hypertension, 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 Frequent reorientation, avoid sedating medications as able Continue to monitor Elevated troponin Demand Ischemia Pt with elevated trop of 352.5 and 303.7 EKG without signs of ischemia Pt asymptomatic Echo with EF 60-65%, mild LVH Continue to monitor on telemetry Likely demand in setting of above Continue home coreg cardiology consulted, appreciate recs. Noted/stated the following: "...Elevated troponin in the setting of demand ischemia in the setting of DKA vs HHS. TTE shows normal wall motion and preserved ejection fraction. Can consider ischemic work up in the outpatient setting or coronary CTA..." Continue to monitor Generalized weakness Likely in setting of above PT/OT ordered Acute Kidney Injury Cr 1.73 on admission On IV fluids as noted above Improving Abscess, Mid upper back Pt with draining abscess in the mid upper back Wound culture ordered and pending Started on Augmentin BID with topical mupirocin Wound care nurse consult Pt with only local symptoms Continue to monitor Hypophosphatemia replete as needed Continue other home meds as ordered Diet: DMII DVT prophylaxis: heparin SQ Dispo: PT/OT for recs once medically stable, will need CM input given pt's poor living conditions at home Admission and Anticipated Discharge Date Admission Date: September 08, 2024 Subjective pt was seen in the AM AAOx3 today States that he wants to go home, thinking of leaving AMA however per pt's brother Epifanio, his other brother Doni talked him into staying Review of Systems Review of Systems: All systems reviewed & are unremarkable except as noted in Subjective Physical Exam Physical Exam: General: Alert, orientedx2. No acute distress HEENT: NC/AT CV: RRR Resp: Breath sounds clear bilaterally, no increased effort of breathing Abdomen: Soft, nontender back: abscess in mid upper back Extremities: R BKA Results & Data Results & Data Vital Signs (Past 12 Hours) Vital Signs Temp Pulse Resp BP Pulse Ox O2 Del Method 09/10/24 11:19 36.9 C 62 20 136/87 99 Room Air 09/10/24 07:34 36.6 C 66 20 144/90 H 100 Room Air 09/10/24 03:09 36.9 C 70 16 145/89 H 100 Room Air
--- NOTE | 2024-09-10 19:54 | Surgery Consultation ---
Date of Consultation September 10, 2024 Assessment & Plan (1) Abscess: Patient has been admitted on the hospitalist service and general surgery was consulted due to concern for a back abscess. Recommendations are as follows: The area in question patient's back appears to be consistent with either a small abscess or sebaceous cyst Recommend continue local wound care as is being done The patient is currently receiving antibiotics in form of Augmentin which should continue Will monitor the patient's clinical response to this and he will be reevaluated the morning of 09/11/2024 and a determination will be made if patient requires additional incision and drainage of this area. At the time of my interview he was nontoxic-appearinghe was normotensive tachycardia or fever. Additional recommendations with forthcoming based on his clinical course as unfolds History of Present Illness Reason for Consultation: Back abscess Attending Physician: Suma Valdez MD History of Present Illness This is a 64-year-old male who was admitted to [facility] on 09/08/2024. The patient was admitted secondary to elevated troponin and acute metabolic encephalopathy. His encephalopathy is felt to be due to electrolyte abnormalities as well as uncontrolled diabetes. General surgery was asked to see the patient due to concern for a back abscess. Patient was unaware that he had this at time of admission and is unsure how long it has been there. He denies any pain in the area where this is present. He also denies any fevers, shakes, or chills. Since arrival hospital patient has had labs and imaging which at [place] reviewed. A CT scan of the head showed no acute evidence of stroke. Patient did have evidence of bilateral basal ganglia lacunar infarcts which appeared stable from previous scans. The chest x-ray showed no evidence of pneumonia. Laboratory showed CBC revealed white blood cell count was 4.0. Hemoglobin and hematocrit are 10.9 and 31.5. Platelet count was 118,000. Chemistry profile showed sodium is 127 with a potassium of 3.9. BUN and creatinine are 12 and 0.7. At the time of my interview he was resting comfortably in bed he was in no distress Allergies Allergy/AdvReac Type Severity Reaction Status Date / Time No Known Allergies Allergy Verified 09/08/24 10:11 Home Medications Medication Instructions Recorded Confirmed Type metformin 500 mg tablet,extended 1,000 mg PO BID 01/07/24 09/08/24 History release 24 hr insulin glargine 100 unit/mL (3 10 unit (0.1 mL) subcut QAM #0 mL 01/09/24 09/08/24 Rx mL) subcutaneous pen (Lantus Solostar U-100 Insulin) carvedilol 3.125 mg tablet 3.125 mg PO BIDWMEAL 09/08/24 09/08/24 History duloxetine 20 mg capsule,delayed 20 mg PO DAILY 09/08/24 09/08/24 History release folic acid 1 mg tablet 1 mg PO DAILY 09/08/24 09/08/24 History insulin aspart U-100 100 unit/mL 5 unit (0.05 mL) subcut TID #15 mL 09/10/24 Rx (3 mL) subcutaneous pen Patient History Medical History Encephalopathy Pancreatitis, recurrent Hx of hematuria Hx of pancreatitis Alcohol dependence a fifth of liquor and 12 beers daily for yrs. Obesity GERD (gastroesophageal reflux disease) Surgical History History of mandibular surgery BROKEN JAW 1978 History of tooth extraction ALL TEETH REMOVED Complete below knee amputation of right lower extremity Family History Sister Family history of diabetes mellitus Brother Pancreatic carcinoma Social History Smoking Status: Current some day smoker Tobacco Type: Cigarettes Second Hand Exposure: No; Do You Dip or Chew Tobacco: No; Tobacco Cessation Education Requested by Patient: No Hx Alcohol Use: Yes Alcohol type: beer Alcohol Intake Frequency: 4 or More x per/Week Alcohol Intake Frequency Comment: 6 pack of beer + daily Hx Substance Use: No Preferred Language: Welsh Communication 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: 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 Beliefs That Will Affect Care: None marital status: Single Current Living Situation: Alone Current Living Situation Comment: Lives with brother Other Information That Helps Us Care for You: No Feels Safe at Home: Yes Safety Concerns: Feels Safe At This Time Assistive Devices: Walker Review of Systems Review of Systems: All systems reviewed & are unremarkable except as noted in HPI & below Physical Exam Constitutional: WD/WN, vitals as above Eyes: no conjunctival abnormality ENMT: Ears: no hearing impairment and no external ear abnormality Mouth: no oropharynx abnormality Neck: trachea midline Respiratory: normal respiratory effort; no respiratory distress and no labored breathing Cardiovascular: Rate/Rhythm: regular rate and regular rhythm Gastrointestinal (Abdomen): Soft and nontender to palpation Musculoskeletal: Right below-knee amputation noted Skin: Patient was noted to have approximately 1 cm x 1 cm area of induration with a central area/pinhole sized opening with some purulent drainage draining. The area is not warm to touch and there is no crepitus in the soft tissue. This area was located on the left upper torso on the back. Neurologic: moves all extremities Results & Data Vital Signs (Past 12 Hours) Vital Signs Temp Pulse Resp BP Pulse Ox O2 Del Method 09/10/24 16:00 36.6 C 69 18 137/88 99 Room Air 09/10/24 13:58 Room Air 09/10/24 11:19 36.9 C 62 20 136/87 99 Room Air PG Care Time/CCT Total # of Minutes Spent Total Time Spent with Patient: Total time spent is greater than 50% in coordination of care (as documented) at patient's floor/unit and/or counseling patient: Coding Level of Care Code 25670 IN/OBS CONSULT LVL 5,80M Diagnoses Abscess L02.91
[2024-09-11] MEDS: LANTUS PER UNIT CHARGE SC SCH (08:43)
[2024-09-11 09:08] LABS: Basophils # (auto) 0.01 K/uL (0.00-0.20); Basophils % (auto) 0.3 %; Eosinophils # (auto) 0.07 K/uL (0.00-0.50); Eosinophils % (auto) 1.8 %; Hematocrit (blood only) 29.1 % (42.0-52.0); Hemoglobin 10.1 g/dl (14.0-18.0); Immature Granulocytes # (auto) 0.01 K/uL (0.01-0.20); Immature Granulocytes % (auto) 0.3 %; Lymphocytes # (auto) 1.59 K/uL (1.20-3.40); Lymphocytes % (auto) 41.1 %; Mean Corpuscular Hemoglobin 28.8 pg (25.0-34.0); Mean Corpuscular Hgb Conc 34.7 g/dL (32.0-36.0); Mean Corpuscular Volume 82.9 fL (80.0-100.0); Mean Platelet Volume 11.7 fL (9.4-12.4); Monocytes # (auto) 0.61 K/uL (0.11-0.59); Monocytes % (auto) 15.8 %; Neutrophils # (auto) 1.58 K/uL (1.40-6.50); Neutrophils % (auto) 40.7 %; Platelet Count 118 K/uL (130-400); RDW Standard Deviation 36.5 fL (36.4-46.3); Red Blood Count 3.51 M/uL (4.70-6.10); White Blood Count 3.87 K/ul (4.8-10.8)
[2024-09-11 09:24] LABS: Albumin Level 3.2 gm/dl (3.4-5.0); Bilirubin,Total 0.5 mg/dl (0.2-1.0); Calcium 8.6 mg/dl (8.6-10.3); Magnesium 1.7 mg/dl (1.7-2.4); Potassium 3.7 mmol/L (3.5-5.1)
[2024-09-11 09:41] LABS: Albumin Globulin Ratio 1.3 (0.9-2); BUN Creatinine Ratio 14.9 (10-20); Creatinine Clr Calc Pharmacy 82.3 ml/min; Globulin 2.4 gm/dl (2.5-4.0); Phosphorus 4.2 mg/dl (2.5-4.9); Thyroid Stimulating Hormone 1.854 uIu/ml (0.300-4.500); Total Protein 5.6 gm/dl (6.0-8.3)
--- NOTE | 2024-09-11 10:32 | Nephrology Progress Note ---
Date of Service September 11, 2024 Assessment & Plan Admission and Anticipated Discharge Date Admission Date: September 08, 2024 Subjective Assessment & Plan (1) Hyponatremia: Initially was pseudohyponatremia with very blood glucose of 650+. But then became normal to 137 but then dropping again. na now 125. Multifactorial and difficult to exactly categorize---Will need to check for Cortisol, TSH, Urine Osm and urine Na also. hyponatremia is related with heavy alcohol use high fluid intake as well as very very poor protein intake and he might also have underlying SIADH. Will do FFR of 1500 ml per day. very poor nutrition pre admission---Super low Phos is the clue. he will need to dramatically raise the protein intake. Again he will be impossible to manage at home !! In such unreliable patient I do not use urea or diuretics or really any medications specifically for hyponatremia as outpatient. However Can use these while he is here. Add lasix 40 bid and urea 15 bid. Also add kcl 20 bid. Phos is now 4+ so lower the dose of oral K phos to 1 tab tid. he has to come for follow up and have frequent blood work to monitor these medications. As long as he keeps drinking alcohol and does not take care of his diabetes there is no way to manage his hyponatremia (2) IDALIA (acute kidney injury): pre renal type from Super high glucose HHS syndrome. Now normal. (3) Hyperosmolar hyperglycemic state (HHS): glucose still high 400+ this AM. However not sure how we can mange him at home !!! he has already demanding to be discharged and go home S--No new issues. na still low and glucose is high ROS--Not able to obtain. he does not remember what all happened before admission. Physical Exam Physical Exam: GEN: AAOx3; No distress. HEENT: No JVD CV: RRR; S1+S2; no M/R/G PULM: Clear b/l ABD: Soft non tender EXT: no lower extremity edema; RLL amputation. Results & Data Vital Signs (Past 12 Hours) Vital Signs Temp Pulse Resp BP Pulse Ox O2 Del Method 09/11/24 07:36 36.5 C 80 20 149/91 H 100 Room Air 09/11/24 03:14 36.7 C 67 18 143/85 H 98 Room Air 09/10/24 23:01 36.5 C 67 18 138/86 100 Room Air
--- NOTE | 2024-09-11 10:49 | Surgery Progress Note ---
Date of Service September 11, 2024 Assessment & Plan (1) Abscess: Plan: He has what appears to be a small abscess in his upper back We will proceed with I&D of the area at bedside later today Consent was obtained, risks discussed including bleeding, infection, nonhealing wound Admission and Anticipated Discharge Date Admission Date: September 08, 2024 Subjective Patient seen and examined. No acute events overnight. Still with some purulent drainage in his upper mid back. Afebrile. Review of Systems Constitutional: no fever and no chills Eyes: no blind spots and no corrective lenses Ear, Nose, Mouth, Throat: no ear pain and no tinnitus Respiratory: no cough and no dyspnea Cardiovascular: no chest pain and no dyspnea on exertion Gastrointestinal: no abdominal pain, no nausea and no vomiting Musculoskeletal: no back pain and no neck pain Integumentary: no acne and no non-healing lesions Psychiatric: no behavioral changes and no depression Physical Exam Constitutional: WD/WN, vitals as above Eyes: PERRL, conjunctivae normal, anicteric sclerae Respiratory: normal respiratory effort, lungs clear to auscultation Cardiovascular: RRR, no murmur, no edema Gastrointestinal (Abdomen): normal bowel sounds, soft, nontender, no hepatosplenomegaly Musculoskeletal: no cyanosis or clubbing, extremities motor strength 5/5 Skin: no rashes, warm and dry 3 to 4 cm area of erythema and fluctuanc e of the upper mid back with punctate area of purulent drainage, mild tenderness to palpation Psychiatric: A+Ox3, euthymic affect Results & Data Vital Signs (Past 12 Hours) Vital Signs Temp Pulse Resp BP Pulse Ox O2 Del Method 09/11/24 07:36 36.5 C 80 20 149/91 H 100 Room Air 09/11/24 03:14 36.7 C 67 18 143/85 H 98 Room Air 09/10/24 23:01 36.5 C 67 18 138/86 100 Room Air PG Care Time/CCT Total # of Minutes Spent Total Time Spent with Patient: Total time spent is greater than 50% in coordination of care (as documented) at patient's floor/unit and/or counseling patient: Coding Level of Care Code 05058 SUB INP/OBS CARE 07/14MIN Diagnoses Abscess L02.91
[2024-09-11] MEDS: UREA (UREA-NA) 15 GM PACK PO SCH (10:58)
[2024-09-11] MEDS: FUROSEMIDE INJ 20 MG/2 ML VIAL IV SCH (10:58)
[2024-09-11] MEDS: POTASSIUM CHLORIDE CRTAB 20 MEQ TABCR PO SCH (10:58)
--- NOTE | 2024-09-11 11:41 | Hospitalist Progress Note ---
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- recommending discharge home with "...Novolog (set dose) ~5 units with all meals..." Pt states he has been taking his medications at home, question compliance Continue to monitor Improving Acute on Chronic Hyponatremia Na originally decreased in the setting of hyperglycemia Pt with chronic hyponatremia however Nephrology consulted, appreciate further recs -FR 1500ml at this time -iv LASIX 40MG bid with KCl 20mEq BID -urea 15mg BID Continue to monitor Hypophosphatemia Repleting with scheduled K phos Acute Metabolic/Toxic Encephalopathy Likely in setting of above Head CT unremarkable Alcohol level normal VBG as above normal, no noted hypercarbia Urine Tox screen pending Ammonia normal Delirium precautions. Frequent reorientation, avoid sedating medications as able Continue to monitor Elevated troponin Demand Ischemia Pt with elevated trop of 352.5 and 303.7, down to 155.2 EKG without signs of ischemia Pt asymptomatic Echo with EF 60-65%, mild LVH Continue to monitor on telemetry Likely demand in setting of above Continue home coreg cardiology consulted, appreciate recs. Noted/stated the following: "...Elevated troponin in the setting of demand ischemia in the setting of DKA vs HHS. TTE shows normal wall motion and preserved ejection fraction. Can consider ischemic work up in the outpatient setting or coronary CTA..." Continue to monitor Generalized weakness Likely in setting of above PT/OT ordered Acute Kidney Injury Cr 1.73 on admission On IV fluids as noted above Improving Abscess, Mid upper back Pt with draining abscess in the mid upper back Wound culture NGTD Started on Augmentin BID with topical mupirocin Wound care nurse consult Pt with only local symptoms Continue to monitor Continue other home meds as ordered Diet: DMII DVT prophylaxis: heparin SQ Dispo: PT/OT for recs once medically stable, will need CM input given pt's poor living conditions at home Admission and Anticipated Discharge Date Admission Date: September 08, 2024 Subjective Pt was seen laying in bed AAOx3 Denies pain Notes that he was not aware of abscess on his back Review of Systems Review of Systems: All systems reviewed & are unremarkable except as noted in Subjective Physical Exam Physical Exam: General: Alert, orientedx2. No acute distress HEENT: NC/AT CV: RRR Resp: Breath sounds clear bilaterally, no increased effort of breathing Abdomen: Soft, nontender back: abscess in mid upper back Extremities: R BKA Results & Data Results & Data Vital Signs (Past 12 Hours) Vital Signs Temp Pulse Resp BP Pulse Ox O2 Del Method 09/11/24 11:31 36.6 C 68 19 133/96 99 Room Air 09/11/24 07:36 36.5 C 80 20 149/91 H 100 Room Air 09/11/24 03:14 36.7 C 67 18 143/85 H 98 Room Air Diagnostic Findings Chest X-Ray 09/08/24 05:38 EXAM: XR chest 1V portable CLINICAL HISTORY: Altered Mental Status. TECHNIQUE: An X-ray image of the chest is obtained in AP projection. COMPARISON: 01/06/2024 FINDINGS: Pulmonary Parenchyma: Prominent central bronchovascular markings could be due to mild pulmonary congestion.(Unchanged) No evidence of consolidation, collapse, or focal opacities. No evidence of pleural effusion or pleural thickening. Heart and Mediastinum: Heart size and shape are normal. No mediastinal widening or masses. Bony Thorax: Degenerative changes of the visualized skeleton. Soft Tissues: Soft tissues overlying the chest wall are unremarkable. IMPRESSION: 1. No acute cardiopulmonary abnormalities are identified. 2. No significant interval change since the previous study. Electronically signed by Shaun Choudhury 09-08-2024 08:[address] 09/08/24 05:38 EXAM: CT head/brain wo con CLINICAL HISTORY: ams TECHNIQUE: Axial non-contrast CT scan of the brain was performed from the skull base to the high parietal region. One of the following dose reduction techniques were utilized for this exam: Automated exposure control, adjustment of the mA and/or kV according to patient size, use of iterative reconstruction. DLP: 625.80 mGy-cm COMPARISON: CT 01/06/2024 FINDINGS: Brain Parenchyma: Bilateral cerebral and cerebellar white matter hypodense attenuation within scattered hypodense foci distinctive of small artery disease with ischemic changes More deep hypodense patch is seen implicating the bilateral high frontal periventricular regions without mass effect, likely ischemic Bilateral basal ganglia lacunar infarcts No evidence of acute infarct, hemorrhage, or mass effect. Ventricular System: Exaggerated extra-axial CSF spaces and basal cisterns as well as dilated ventricular system. Subarachnoid Spaces: Exaggerated extra-axial CSF spaces and basal cisterns as well as dilated ventricular system. Cerebellum and Brainstem: No masses, lesions, Orbits: Normal appearance of the globes, optic nerves, and extraocular muscles. No evidence of orbital masses or abnormal signal. Sinuses: Clear paranasal sinuses. No evidence of sinusitis or mucosal thickening. Mastoid Air Cells: Clear mastoid air cells. No evidence of mastoiditis. Skull: Normal skull morphology. IMPRESSION: 1. No acute infarction on noncontrast CT or hemorrhage. For assessment of acute infarctions, MR diffusion is advised. 2. Diffuse cerebral microangiopathy with bilateral white matter ischemic changes, stable. 3. Bilateral basal ganglia lacunar infarcts, stable. 4. Age-related brain involutional changes, stable. Electronically signed by Shaun Choudhury 09-08-2024 06:40 AM
[2024-09-11] MEDS: INSULIN ASPART PER UNIT CHARGE SC ONE (12:11)
[2024-09-11] MEDS: LIDOCAINE 1%/EPINEPHRINE 1:100,000 50 ML VIAL INFIL ONE (12:33)
[2024-09-11] MEDS: POT PHOSPHATE MONOBASIC W/ SOD TAB PO SCH (12:33)
--- NOTE | 2024-09-11 12:57 | Pharmacy Report ---
Pharmacy Glycemic Short Note 2 - Date of Service September 11, 2024 - Glycemic Short BSG Results (Last 24 hours): 09/10/24 09/10/24 09/11/24 15:42 20:18 07:35 Glucose POC Glucose 128 H 111 H 279 H 09/11/24 09/11/24 08:29 11:30 Glucose 415 H* POC Glucose 369 H* OUTPATIENT ANTIDIABETIC REGIMEN: * Lantus 10 units SC daily * Metformin 1 g PO BIDM * Per patient's family, he has not been taking his insulin appropriately at home HbA1c: 15.6% (09/08/24) ASSESSMENT: 09/11: * BSGs erratic (generally high in the AM/lunch and low in the evening) [phone]/dL. Received 12 units of basal and 25 units of bolus insulin yesterday. * Continues on Augmentin. Tolerating diet. * Fasting BSG elevated to 279mg/dl this AM although he is snacking (reported extra bowl of cereal prior to lunch BSG). Lantus increased to 15 units this AM. Will cautiously titrate given rapid fluctuations in BSG based upon historic data. Novolog tightened for breakfast starting tomorrow and loosened all other times of day to prevent large boluses causing low BSGs in the evening. 09/10: * Umair received 30 units of insulin yesterday, 10 of which were basal. BSGs were: 214-336-833-201 mg/dL. * Continues on Augmentin for infection. Tolerating T2DM diet. * Fasting remains elevated at 206 mg/dL this AM. Patient likely with significant basal deficiency given A1c. Will increase basal by 20% today. * Also tightening Novolog parameters and goal range for now. Will likely need to loosen once basal catches up with patient as he does have a tendency to drop below goal in the evenings during past admissions. 09/08: * DH is a 64 year old male who presents to ED with hyperglycemia w/ increased weakness/confusion * Insulin gtt initiated in ED at DKA initial dosing * Initial labs indicative of possible mild DKA w/ anion gap of 16 and ketones in urine (1+), but carbon dioxide and VBG pH both WNL * Discussed w/ hospitalist and will treat as hyperglycemia only * Blood sugars corrected quickly w/ insulin infusion and patient has now been transitioned to SC basal/bolus regimen * Diet is ordered PLAN FOR INPATIENT GLYCEMIC CONTROL: * Hold outpatient oral diabetes medications * Basal insulin * Lantus 15 units SC daily * Bolus insulin * NovoLog per scale ACHS or Q6hrs while NPO * Goal Range: Low 110 mg/dL - High 140 mg/dL * Correction Factor: 30 mg/dL/unit (breakfast), 35mg/dl/unit (lunch, dinner, HS) * Nutritional / Prandial insulin per carb ratio of 1 unit per 8 grams (breakfast), 11 grams (lunch, dinner, HS) CHO consumed
--- NOTE | 2024-09-11 14:14 | Operative Report ---
PG Post Operative Report Pre & Post Diagnosis Pre-Op diagnosis: Back abscess Postop diagnosis: Same I identified the patient and participated in the time-out.: Yes Procedure Incision and drainage of a back abscess Surgeon Quinton Mahajan DO Fundraising Consultant Dona FARRIS Estimated Blood Loss 1 Findings Consistent with Post-Op Diagnosis Specimens None Drains None Anesthesia Type Local Complications none Disposition Disposition: Recovery Room Indications 64-year-old male with uncontrolled diabetes and a back abscess Description of Procedure The patient was placed in a sitting position. The upper back was prepped and draped in the usual sterile fashion. A timeout was called. The procedure was verified as Incision and drainage of back abscess. After injection of 1% lidocaine with epinephrine, an incision was made directly over the most fluctuant area of abscess using a #11 blade scalpel. Purulent fluid was encountered. Wide drainage was ensured. All loculations were broken up bluntly. At this time the incision was irrigated until clear. The incision was packed with quarter inch iodoform packing. Sterile dressing was applied. The patient tolerated the procedure well. I attest to the content of the Intraoperative Record and any orders documented therein. Any exceptions are noted below.
[2024-09-11] MEDS: INSULIN ASPART PER UNIT CHARGE SC SCH (17:37)
[2024-09-12 06:08] LABS: Basophils # (auto) 0.01 K/uL (0.00-0.20); Basophils % (auto) 0.2 %; Eosinophils # (auto) 0.07 K/uL (0.00-0.50); Eosinophils % (auto) 1.4 %; Hematocrit (blood only) 29.9 % (42.0-52.0); Hemoglobin 10.5 g/dl (14.0-18.0); Immature Granulocytes # (auto) 0.02 K/uL (0.01-0.20); Immature Granulocytes % (auto) 0.4 %; Lymphocytes # (auto) 1.78 K/uL (1.20-3.40); Lymphocytes % (auto) 35.5 %; Mean Corpuscular Hemoglobin 28.8 pg (25.0-34.0); Mean Corpuscular Hgb Conc 35.1 g/dL (32.0-36.0); Mean Corpuscular Volume 82.1 fL (80.0-100.0); Mean Platelet Volume 11.4 fL (9.4-12.4); Monocytes # (auto) 0.82 K/uL (0.11-0.59); Monocytes % (auto) 16.3 %; Neutrophils # (auto) 2.32 K/uL (1.40-6.50); Neutrophils % (auto) 46.2 %; Platelet Count 147 K/uL (130-400); RDW Coefficient of Variation 12.1 % (11.5-14.5); Red Blood Count 3.64 M/uL (4.70-6.10); White Blood Count 5.02 K/ul (4.8-10.8)
[2024-09-12 06:27] LABS: Albumin Level 3.6 gm/dl (3.4-5.0); Bilirubin,Total 0.4 mg/dl (0.2-1.0); Calcium 8.7 mg/dl (8.6-10.3); Magnesium 1.7 mg/dl (1.7-2.4); Potassium 3.4 mmol/L (3.5-5.1)
[2024-09-12 06:34] LABS: Albumin Globulin Ratio 1.4 (0.9-2); BUN Creatinine Ratio 40.4 (10-20); Creatinine Clr Calc Pharmacy 76.2 ml/min; Globulin 2.6 gm/dl (2.5-4.0); Phosphorus 4.6 mg/dl (2.5-4.9); Total Protein 6.2 gm/dl (6.0-8.3)
--- NOTE | 2024-09-12 07:32 | Surgery Progress Note ---
Date of Service September 12, 2024 Assessment & Plan (1) History of incision and drainage: Plan: pod 1 incision and drainage back abscess dressing and packing removed wound repacked with 1/4 inch iodoform, covered with 4x4, medipore tape Keep dressing intact until Tuesday09/14/24 , then remove packing and cover with plain 4x4 and tape. General surgery will follow from peripheral call with questions/concerns Admission and Anticipated Discharge Date Admission Date: September 08, 2024 Subjective pt without complaints Review of Systems Integumentary: + wounds Physical Exam Constitutional: cooperative and comfortable Respiratory: normal respiratory effort; no respiratory distress Cardiovascular: Rate/Rhythm: regular rate Skin: + wound Results & Data Vital Signs (Past 12 Hours) Vital Signs Temp Pulse Pulse Resp BP Pulse Ox O2 Del Method 09/12/24 07:16 77 09/12/24 03:31 98.1 F 71 20 108/73 98 Room Air 09/11/24 23:34 69 09/11/24 23:23 97.9 F 78 18 108/75 99 Room Air 09/11/24 21:56 Room Air 09/11/24 19:26 97.7 F 72 16 112/74 99 Room Air Results CBC w Diff Results: RBC 3.64 M/uL (4.70-6.10) L 09/12/24 WBC 5.02 K/ul (4.8-10.8) 09/12/24 Hgb 10.5 g/dl (14.0-18.0) L 09/12/24 Hct 29.9 % (42.0-52.0) L 09/12/24 MCV 82.1 fL (80.0-100.0) 09/12/24 MCH 28.8 pg (25.0-34.0) 09/12/24 MCHC 35.1 g/dL (32.0-36.0) 09/12/24 RDW Standard Deviation 37.0 fL (36.4-46.3) 09/12/24 RDW Coefficient of Variation 12.1 % (11.5-14.5) 09/12/24 Plt Count 147 K/uL (130-400) 09/12/24 MPV 11.4 fL (9.4-12.4) 09/12/24 Nucleated Red Blood Cells % (auto) 0.4 % 02/13 Nucleated RBC Absolute Count (auto) 0.03 K/uL (0.00-0.12) 0 02/13/23 Neutrophils (%) (Auto) 46.2 % 09/12/24 Lymphocytes (%) (Auto) 35.5 % 09/12/24 Monocytes # (Auto) 0.82 K/uL (0.11-0.59) H 09/12/24 Eosinophils # (Auto) 0.07 K/uL (0.00-0.50) 09/12/24 Immature Granulocyte % (Auto) 0.4 % 09/12/24 Neutrophils # (Auto) 2.32 K/uL (1.40-6.50) 09/12/24 Lymphocytes # (Auto) 1.78 K/uL (1.20-3.40) 09/12/24 Monocytes # (Auto) 0.82 K/uL (0.11-0.59) H 09/12/24 Eosinophils # (Auto) 0.07 K/uL (0.00-0.50) 09/12/24 Basophils # (Auto) 0.01 K/uL (0.00-0.20) 09/12/24 Immature Granulocyte # (Auto) 0.02 K/uL (0.01-0.20) 5 Nucleated Red Blood Cells % 0.3 % 12/16/17 PG Care Time/CCT Total # of Minutes Spent Total Time Spent with Patient: Total time spent is greater than 50% in coordination of care (as documented) at patient's floor/unit and/or counseling patient: Coding Level of Care Code 38130 Post Operative Follow-Up Diagnoses History of incision and drainage Z98.890
[2024-09-12] MEDS: INSULIN ASPART PER UNIT CHARGE SC SCH (08:40)
[2024-09-12] MEDS: LANTUS PER UNIT CHARGE SC SCH (08:41)
[2024-09-12] MEDS: POTASSIUM CHLORIDE / WTR 10 MEQ/100 ML PLCT IV SCH (08:42)
--- NOTE | 2024-09-12 10:23 | Nephrology Progress Note ---
Date of Service September 12, 2024 Assessment & Plan Admission and Anticipated Discharge Date Admission Date: September 08, 2024 Subjective Assessment & Plan (1) Hyponatremia: Initially was pseudohyponatremia with very blood glucose of 650+. But then became normal to 137 but then dropping again. na now 125. Multifactorial and difficult to exactly categorize---Will need to check for Cortisol, TSH, Urine Osm and urine Na also. hyponatremia is related with heavy alcohol use high fluid intake as well as very very poor protein intake and he might also have underlying SIADH. Will do FFR of 1500 ml per day. very poor nutrition pre admission---Super low Phos is the clue. he will need to dramatically raise the protein intake. Again he will be impossible to manage at home !! In such unreliable patient I do not use urea or diuretics or really any medications specifically for hyponatremia as outpatient. However Can use these while he is here. with lasix 40 bid and urea 15 bid --na did go up. Now lasix stopped. BUN went up very fast so dont think we can use this too long. follow labs. low k and will correct . Phos is now 4.6 so will stop oral K phos he has to come for follow up and have frequent blood work to monitor these medications. As long as he keeps drinking alcohol and does not take care of his diabetes there is no way to manage his hyponatremia. (2) IDALIA (acute kidney injury): pre renal type from Super high glucose HHS syndrome. Now normal. (3) Hyperosmolar hyperglycemic state (HHS): glucose still high 400+ this AM. However not sure how we can mange him at home !!! he has already demanding to be discharged and go home S--No new issues. had I and D for Small abscess ROS--Not able to obtain. he does not remember what all happened before admission. Physical Exam Physical Exam: GEN: AAOx3; No distress. HEENT: No JVD CV: RRR; S1+S2; no M/R/G PULM: Clear b/l ABD: Soft non tender EXT: no lower extremity edema; RLL amputation. Results & Data Vital Signs (Past 12 Hours) Vital Signs Temp Pulse Pulse Resp BP Pulse Ox O2 Del Method 09/12/24 07:25 36.8 C 72 20 106/76 100 Room Air 09/12/24 07:16 77 03/26/25 03:31 36.7 C 71 20 108/73 98 Room Air 09/11/24 23:34 69 09/11/24 23:23 36.6 C 78 18 108/75 99 Room Air
[2024-09-12 11:11] VITALS: BP 109/86; RESP 17; TEMP 98.1; O2SAT 97
--- NOTE | 2024-09-12 12:27 | Pharmacy Report ---
Pharmacy Glycemic Short Note 2 - Date of Service September 12, 2024 - Glycemic Short BSG Results (Last 24 hours): 09/11/24 09/11/24 09/11/24 08:29 16:03 20:20 Glucose 415 H* POC Glucose 122 H 153 H 09/12/24 09/12/24 09/12/24 05:29 07:25 11:22 Glucose 198 H POC Glucose 252 H 239 H OUTPATIENT ANTIDIABETIC REGIMEN: * Lantus 10 units SC daily * Metformin 1 g PO BIDM * Per patient's family, he has not been taking his insulin appropriately at home HbA1c: 15.6% (09/08/24) ASSESSMENT: 09/12: * BSGs [phone]/dL the last 24h. Received 15 units of basal and 28 units of bolus insulin yesterday. * Continues on Augmentin and tolerating diet. * Lantus increased to 20 units today given fasting still elevated at 252mg/dL. Novolog carb ratio tightened further with breakfast starting tomorrow with looser parameters throughout the rest of day. 09/11: * BSGs erratic (generally high in the AM/lunch and low in the evening) [phone]/dL. Received 12 units of basal and 25 units of bolus insulin yesterday. * Continues on Augmentin. Tolerating diet. * Fasting BSG elevated to 279mg/dl this AM although he is snacking (reported extra bowl of cereal prior to lunch BSG). Lantus increased to 15 units this AM. Will cautiously titrate given rapid fluctuations in BSG based upon historic data. Novolog tightened for breakfast starting tomorrow and loosened all other times of day to prevent large boluses causing low BSGs in the evening. 09/10: * Umair received 30 units of insulin yesterday, 10 of which were basal. BSGs were: [phone] mg/dL. * Continues on Augmentin for infection. Tolerating T2DM diet. * Fasting remains elevated at 206 mg/dL this AM. Patient likely with significant basal deficiency given A1c. Will increase basal by 20% today. * Also tightening Novolog parameters and goal range for now. Will likely need to loosen once basal catches up with patient as he does have a tendency to drop below goal in the evenings during past admissions. 09/08: * DH is a 64 year old male who presents to ED with hyperglycemia w/ increased weakness/confusion * Insulin gtt initiated in ED at DKA initial dosing * Initial labs indicative of possible mild DKA w/ anion gap of 16 and ketones in urine (1+), but carbon dioxide and VBG pH both WNL * Discussed w/ hospitalist and will treat as hyperglycemia only * Blood sugars corrected quickly w/ insulin infusion and patient has now been transitioned to SC basal/bolus regimen * Diet is ordered PLAN FOR INPATIENT GLYCEMIC CONTROL: * Hold outpatient oral diabetes medications * Basal insulin * Lantus 20 units SC daily * Bolus insulin * NovoLog per scale ACHS or Q6hrs while NPO * Goal Range: Low 110 mg/dL - High 140 mg/dL * Correction Factor: 30 mg/dL/unit (breakfast), 35mg/dl/unit (lunch, dinner, HS) * Nutritional / Prandial insulin per carb ratio of 1 unit per 7 grams (breakfast), 11 grams (lunch, dinner, HS) CHO consumed
--- NOTE | 2024-09-12 13:51 | Discharge Summary ---
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 Pt poor historian and confused at the time of exam. Further history obtained from the chart and ED physician. A call was also placed to the patient's brother Epifanio who stated that though he lives with his other brother Doni, he was told that the pt was confused and had been wetting the bed. He states that he was very confused when they checked on him and very lethargic. He notes that they are not sure that he has been taking his medications at home. [employer] chart review shows that pt is connected with [facility] as of 2023. He denied any chest pain or SOB. Admission Exam Per Admitting Provider General: Alert, orientedx2. No acute distress HEENT: NC/AT CV: RRR Resp: Breath sounds clear bilaterally, no increased effort of breathing Abdomen: Soft, nontender Extremities: R BKA Principal Diagnosis Hyperglycemia Uncontrolled DMII HHS Hypophosphatemia Hypokalemia Pseudohyponatremia in setting of chronic hyponatremia hx Abscess, Mid upper back Discharge Exam Constitutional: Alert oriented x 3; not in distress. Respiratory: normal respiratory effort, lungs clear to auscultation, no wheeze, rales, rhonchi. Normal insp/exp effort, no accessory muscle use Cardiovascular: RRR, no murmur, no edema Vessels: no JVD or carotid bruit Chest: normal inspection of chest Abdomen: normal bowel sounds, soft, nontender, no hepatosplenomegaly Musculoskeletal: Right BKA. Dressing intact in upper back; clean and dry. Neurologic: PERRL, EOMI, accommodation nl, no face palsy, no dysarthria CN's II- XI intact bilaterally and moves all extremities Psychiatric: A+Ox3, euthymic affect Discharge Data Allergies Allergy/AdvReac Type Severity Reaction Status Date / Time No Known Allergies Allergy Verified 09/08/24 10:11 Consultations 09/08/24 07:55 ED Decision to Admit Stat 09/09/24 08:47 Consult Cardiology Routine 09/10/24 09:09 Consult Nephrology Routine 09/10/24 16:34 Consult General Surgery Routine Ordered Studies 09/08/24 05:38 CT head/brain wo con Stat Diabetes Follow up Diabetes Follow-up Needed for HgbA1c >9% Hospital Course (1) Elevated troponin: (2) Acute metabolic encephalopathy: Plan Hyperglycemia Uncontrolled DMII HHS Hyponatremia IDALIA Upper Back Abscess s/p drainage on 09/11/2024 Patient is a 64yoM with PMHx significant for type 2 diabetes, recurrent acute pancreatitis, hypertension, 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 He was found to have HHS, hyponatremia with blood glucose level of 659. He was started on insulin drip, IV fluids; admitted to ICU. Patient blood glucose gradually improved throughout the hospitalization. Nephrology was consulted for comanagement of hyponatremia and IDALIA; serum sodium gradually improved with oral urea and IV fluids. He was found to have superficial abscess on his upper back which was drained by general surgery. At the time of the discharge, patient was alert oriented x 3; not in distress. His vital signs were stable. He reported that he wanted to go back home. I discussed with his brother Doni at [phone] at the time of the discharge and voiced my concern regarding patient's compliance with medication. Patient is not open to going to rehab. It is questionable if patient is taking insulin at home or not; his brother reports that patient has difficulty injecting insulin but he will ensure that patient will take the insulin going forward. I discussed dietary compliance, medication compliance with patient and his brother. Patient was given oral antibiotic at the time of the discharge; dressing instructions discussed. High risks of readmission given noncompliance. Please note the above document was generated using voice recognition software. It may contain grammatical, syntax or spelling errors. Any formal questions or concerns about the content, text or information contained within the body of this dictation should be directly addressed to the provider for clarification Total Time Total Time Spent Total Time Spent (In Minutes): 56 Total Time Includes: Examination of the Patient, Discharge Planning, Medication Reconciliation, Communication With Other Providers and Other Discharge Plan Discharge Items Patient Disposition: Home - Self-Care Reason For Visit: DKA Discharge Diagnosis: Hyperglycemia HHS Acute on Chronic hyponatremia Activity: Per Instructions section Non-emergency contact: Primary Care Provider Call non-emergency contact if: you have any medication questions and your symptoms worsen Follow-up/Referrals: Quinton Mahajan DO [Physician] - Liyah Oseguera MD [Primary Care Provider] - 09/17/24 11:00 am (Date & Time 09/17/2024 11:00 AM Provider: Liyah Oseguera MD General Internal Medicine [facility] ) Diet: Carb Consistent or DM2 Addtl Attending Provider Instructions: You may remove the packing in your back on 09/14/24 and then leave it out. You may cover your wound daily with a dry dressing until it is healed and no longer leaking fluid. Cover with dry gauze/tape daily until healed. You are prescribed Augmentin and doxycycline to be taken twice a day for 7 days for the wound. You are also recommended to start taking insulin as part 5 units 3 times a day prior to meals. Dose of the glargine is also increased to 15 units once a day. Please follow-up with your primary care doctor and general surgery. Pending Studies at Discharge: No Stand-Alone Forms: [facility] [place], Smoking Cessation Medications and DC Order Prescriptions: New insulin aspart U-100 100 unit/mL (3 mL) insulin pen 5 unit subcut TID Qty: 15 0RF Rx Instructions: Inject 5U three times daily with meals magnesium oxide 400 mg (241.3 mg magnesium) Tablet 400 mg PO BID 30 Days Qty: 60 0RF amoxicillin-pot clavulanate 875-125 mg Tablet 1 tab PO BIDM 7 Days Qty: 14 0RF doxycycline hyclate 100 mg tablet 100 mg PO BID 7 Days Qty: 14 0RF Continued metformin 500 mg tablet extended release 24 hr 1,000 mg PO BID carvedilol 3.125 mg tablet 3.125 mg PO BIDWMEAL folic acid 1 mg tablet 1 mg PO DAILY duloxetine 20 mg capsule,delayed release(DR/EC) 20 mg PO DAILY Changed insulin glargine [Lantus Solostar U-100 Insulin] 100 unit/mL (3 mL) insulin pen 15 unit SUBCUT QAM Qty: 15 0RF Discharge Orders: Discharge Order (Routine); Ordered 09/12/24 Ordered By: Jose Cruz Jama Admission Data Admit Date/Time: 09/08/24 07:48 Attending Provider: Jose Cruz Jama Admit Provider: Suma Valdez Primary Care Provider: Liyah Oseguera Other Providers: Suma Valdez; Vinay Lutz; Marquise Oseguera; Quinton Mahajan Other Interventions: Discharge Summary Assessment (RN) Last Done: 09/12/24 13:34
[2024-09-12 14:23] LABS: 7-Aminoclonazepam DNR ng/mL (<25); Alpha-Hydroxyalprazolam DNR ng/mL (<25); Alphahydroxymidazolam DNR ng/mL (<50); Alphahydroxytriazolam DNR ng/mL (<50); Amobarbital DNR ng/mL (<100); Amphetamines, Ur NEGATIVE ng/mL (<500); Amphetemines Ur GC/MS DNR ng/mL (<250); Barbiturates, Urine NEGATIVE ng/mL (<300); Benzodiazepines,Ur NEGATIVE ng/mL (<100); Butalbital DNR ng/mL (<100); Cocaine, Urine NEGATIVE ng/mL (<150); Cocaine,Ur GC/MS DNR ng/mL (<100); Codeine DNR ng/mL (<50); Confirmatory Facility DNR; EDDP DNR ng/mL (<100); Hydrocodone DNR ng/mL (<50); Hydromorphone DNR ng/mL (<50); Hydroxyethylflurazepam DNR ng/mL (<50); Lorazepam DNR ng/mL (<50); Methadone, Ur GC/MS NEGATIVE ng/mL (<100); Methadone, Urine DNR ng/mL (<100); Methamphetamine DNR ng/mL (<250); Morphine DNR ng/mL (<50); Norhydrocodone DNR ng/mL (<50); Noroxycodone DNR ng/mL (<50); Opiates, Urine NEGATIVE ng/mL (<100); Oxycodone,Ur Screen NEGATIVE ng/mL (<100); Pentobarbital DNR ng/mL (<100); Phencyclidine, Ur NEGATIVE ng/mL (<25); Phencyclidine,Ur GC/MS DNR ng/mL (<25); Secobarbital DNR ng/mL (<100); THC20, Qual, Urine POSITIVE ng/mL (<20); Temazepam DNR ng/mL (<50); Tetrahydrocannabinol 59 ng/mL (<5)
[2024-09-12 15:13] VITALS: PULSE 69
== END 2024-09-12 15:05 | disposition home health service (06) | DRG 637 ==
LOC: ED 04:01 → SUATTDRO 07:48 → EDINP 07:48 → 2E 12:22
DX: E83.39 Other disorders of phosphorus metabolism; Z79.899 Other long term (current) drug therapy; G92.8 Other toxic encephalopathy; E11.00 Type 2 diabetes mellitus with hyperosmolarity without nonketotic hyperglycemic-hyperosmolar coma (NKHHC); F17.210 Nicotine dependence, cigarettes, uncomplicated; I10 Essential (primary) hypertension; Z79.84 Long term (current) use of oral hypoglycemic drugs; Z79.4 Long term (current) use of insulin; E87.1 Hypo-osmolality and hyponatremia; N17.9 Acute kidney failure, unspecified; Z83.3 Family history of diabetes mellitus; E87.6 Hypokalemia; L02.212 Cutaneous abscess of back [any part, except buttock and flank]; I24.89 Other forms of acute ischemic heart disease